=== PATIENT | female | born 1945 | race Hispanic/Latino ===

== ENCOUNTER 2017-12-10 10:05 | Emergency (ER) | payer OTHER ==
[2017-12-10] MEDS ORDERED: MECLIZINE HCL 12.5 MG TAB ONE (11:04)
--- NOTE | 2017-12-10 11:15 | RAD REPORT ---
EXAM DESCRIPTION: CT - Head Brain Wo Cont - 12/10/2017 11:04 am CLINICAL HISTORY: DIZZINESS Drowsiness COMPARISON: HEAD BRAIN W O CONTRAST dated 04/08/2012 TECHNIQUE: All CT scans are performed using dose optimization technique as appropriate and may inclu de automated exposure control or mA/KV adjustment according to patient size. FINDINGS: No intracranial hemorrhage, hydrocephalus or extra-axial fluid collection.No areas of brai n edema or evidence of midline shift. The paranasal sinuses and mastoids are clear. The calvarium is intact. IMPRESSION: No acute intracranial abnormality.
--- NOTE | 2017-12-10 11:20 | RAD REPORT ---
EXAM DESCRIPTION: RAD - Chest Single View - 12/10/2017 11:15 am CLINICAL HISTORY: dizziness Chest pain. COMPARISON: Chest Pa And Lat (2 Views) dated 09/17/2016; Abdomen 1 View (KUB) dated 10/08/2015; CHEST S JOSÉ MIGUEL VIEW dated 05/11/2015; CHEST SINGLE VIEW dated 05/10/2015 FINDINGS: Portable technique limits examination quality. The lungs are grossly clear. The heart is normal in size. No displaced fractures. IMPRESSION: No acute intrathoracic process suspected.
[2017-12-10 11:41] LABS: Absolute Lymphocytes (CBC) 1.6 K/uL (0.7-4.9); Absolute Monocytes 0.5 K/uL (0.1-1.3); Absolute Neutrophil 2.8 K/uL (1.8-8.0); Basophils % 1.3 % (0-1.3); Eosinophils % 3.7 % (0-4.4); Hematocrit 39.8 % (36.0-45.0); MCH 25.2 pg (27.0-35.0); MCV 79.7 fL (80-100); MPV 8.9 fL (7.6-11.3); Monocytes % 8.9 % (3.3-12.3); RBC Red Blood Cell Count 4.99 M/uL (3.86-4.86)
[2017-12-10 11:43] LABS: Urine Blood TRACE (NEG); Urine Glucose NEGATIVE (NEG); Urine Protein 1+ (NEG)
[2017-12-10 11:43] LABS: Protime INR 1.08
[2017-12-10 11:55] LABS: ALT/SGPT 26 U/L (12-78); AST/SGOT 28 U/L (15-37); Albumin 4.1 g/dL (3.4-5.0); Alkaline Phosphatase 60 U/L (45-117); BUN Blood Urea Nitrogen 18 mg/dL (7-18); Bicarbonate 26 mmol/L (21-32); Bilirubin Direct < 0.1 mg/dL (0-0.2); Bilirubin Total 0.2 mg/dL (0.2-1.0); Glucose Level 136 mg/dL (74-106); Magnesium 1.5 mg/dL (1.8-2.4); NT PRO-BNP 111 pg/mL (<125); Potassium 3.8 mmol/L (3.5-5.1); Protein, Total 8.4 g/dL (6.4-8.2); Sodium Level 138 mmol/L (136-145); Troponin (Emerg Dept Use Only) < 0.02 ng/mL (0.0-0.045)
[2017-12-10] MEDS ORDERED: MAGNESIUM SULFATE 1 gm IVPB 1 GM/100 ML BAG IV ONE (12:37)
--- NOTE | 2017-12-10 12:37 | RAD REPORT ---
EXAM DESCRIPTION: MRI - Brain Wo Cont - 12/10/2017 12:25 pm CLINICAL HISTORY: Dizziness COMPARISON: 12/10/[address] TECHNIQUE: Axial, sagittal, and coronal magnetic resonance images of the brain were obtained. Contra st was not requested FINDINGS: No abnormal signal is present within the brain. Diffusion-weighted/ADC mapping does not reveal evidence of acute infarction. The ventricles are normal caliber. An extra-axial fluid collection is not present The sinuses and mastoids are clear. IMPRESSION: Unremarkable unenhanced brain MRI
[2017-12-10 12:49] LABS: Urine Bacteria <20 /HPF (<20); Urine RBC <5 /HPF (NONE SEEN)
[2017-12-10 12:50] LABS: Urine Culture Reflex Order REFLEXED; Urine Mucus LIGHT /HPF (NONE SEEN)
--- NOTE | 2017-12-10 13:34 | EDPHYS ---
Physician Documentation [facility] Name: Rena Reddy Age: 72 yrs Sex: Female : 1945 Arrival Date: 12/10/2017 Time: 10:07 Bed 20 Private MD: José Luis Harrington ED Physician Naif Marroquin HPI: 12/10 10:55 This 72 yrs old Female presents to ER via Ambulatory with complaints of jmm Vertigo, High Blood Pressure. 10:55 The patient presents with dizziness. Onset: The symptoms/episode began/occurred jmm acutely, 1 week(s) ago. Associated signs and symptoms: Pertinent positives: headache, nausea, Pertinent negatives: abdominal pain, chest pain. This is a 72 year old female with a history of HTN, DM, HLP that presents to the ED with dizziness beginning approx 1 week ago. Patient is currently being treated for a UTI. Patient denies fever, chest pain, but admits to generalized headache. Patient states having a similar episode when diagnosed with vertigo 5 years prior. . Historical: - Allergies: 10:32 NKDA; aj1 - PMHx: 10:32 Diabetes - NIDDM; Hyperlipidemia; Hypertension; Kidney stones; Myocardial infarction; aj1 - Immunization history:: Flu vaccine is up to date. - Social history:: Smoking status: Patient/guardian denies using tobacco. - Ebola Screening: : Patient denies travel to an Ebola-affected area in the 21 days before illness onset. ROS: 10:55 Constitutional: Negative for fever, chills, and weight loss, Cardiovascular: Negative jm for chest pain, palpitations, and edema, Respiratory: Negative for shortness of breath, cough, wheezing, and pleuritic chest pain. 10:55 MS/Extremity: Negative for injury and deformity, Skin: Negative for injury, rash, and discoloration. 10:55 Abdomen/GI: Positive for nausea. 10:55 Neuro: Positive for dizziness. 10:55 All other systems are negative. Exam: 10:55 Head/Face: atraumatic. Chest/axilla: Normal chest wall appearance and motion. jmm Cardiovascular: Regular rate and rhythm. No edema appreciated Respiratory: Normal respirations, no respiratory distress appreciated 10:55 Constitutional: The patient appears in no acute distress, alert, awake. 10:55 Eyes: Extraocular movements: intact throughout, Conjunctiva: normal. 10:55 Cardiovascular: Rate: normal, Rhythm: regular, Pulses: no pulse deficits are appreciated. 10:55 Abdomen/GI: Inspection: abdomen appears normal, Bowel sounds: normal, Palpation: abdomen is soft and non-tender, in all quadrants. 10:55 Musculoskeletal/extremity: ROM: intact in all extremities. 10:55 Skin: Appearance: Color: normal in color. 10:55 Neuro: Orientation: is normal, Mentation: is normal, Memory: is normal, Cerebellar function: heel to culver testing is normal, Gait: is steady, horizontal nystagmus on gaze to the right. 10:55 Psych: Behavior/mood is pleasant, cooperative. Vital Signs: 10:32 BP 183 / 76; Pulse 76; Resp 18; Temp 97.9; Pulse Ox 99% on R/A; Weight 58.97 kg (R); aj1 Height 5 ft. 2 in. (157.48 cm) (R); Pain 0/10; 11:45 BP 114 / 54; Pulse 66; Resp 18; Pulse Ox 100% on R/A; em 12:36 BP 164 / 72; Pulse 64; Resp 18; Pulse Ox 100% on R/A; Pain 0/10; em 13:42 BP 126 / 59; Pulse 62; Resp 18; Pulse Ox 96% on R/A; Pain 0/10; em 10:32 Body Mass Index 23.78 (58.97 kg, 157.48 cm) [facility] MDM: 10:55 Patient medically screened. [facility] 13:32 Data reviewed: vital signs, nurses notes. Counseling: I had a detailed discussion with [facility] the patient and/or guardian regarding: the historical points, exam findings, and any diagnostic results supporting the discharge/admit diagnosis, radiology results, the need for outpatient follow up, to return to the emergency department if symptoms worsen or persist or if there are any questions or concerns that arise at home. 13:32 Data reviewed: lab test result(s), EKG, radiologic studies. [facility] 13:32 ED course: Patient has no focal neuro deficits in the ED. MRI negative. Symptoms appear [facility] more likely peripheral. Normal cerebellar exam. patient encouraged to follow up with ENT for further evaluation. patient understood and agrees with the plan of care. 12/10 10:44 Order name: Basic Metabolic Panel; Complete Time: 12:08 [facility] 12/10 10:44 Order name: CBC with Diff; Complete Time: 11:48 [facility] 12/10 10:44 Order name: LFT's; Complete Time: 12:08 [facility] 12/10 10:44 Order name: Magnesium; Complete Time: 12:08 [facility] 12/10 10:44 Order name: NT PRO-BNP; Complete Time: 12:08 [facility] 12/10 10:44 Order name: PT-INR; Complete Time: 11:48 [facility] 12/10 10:44 Order name: Troponin (emerg Dept Use Only); Complete Time: 12:08 [facility] 12/10 10:44 Order name: XRAY Chest (1 view); Complete Time: 11:21 [facility] 12/10 10:45 Order name: CT Head Brain wo Cont; Complete Time: 11:21 [facility] 12/10 11:22 Order name: MRI - Brain Wo Cont; Complete Time: 12:38 [facility] 12/10 11:31 Order name: Urine Microscopic Only; Complete Time: 12:50 em 12/10 11:33 Order name: Urine Dipstick--Ancillary (enter results); Complete Time: 11:48 12/10 12:52 Order name: Urine Culture [facility] 12/10 10:44 Order name: EKG; Complete Time: 10:44 [facility] 12/10 10:44 Order name: Cardiac monitoring; Complete Time: 10:47 [facility] 12/10 10:44 Order name: EKG - Nurse/Tech; Complete Time: 11:30 [facility] 12/10 10:44 Order name: IV Saline Lock; Complete Time: 10:47 [facility] 12/10 10:44 Order name: Labs collected and sent; Complete Time: 10:47 [facility] 12/10 10:44 Order name: O2 Per Protocol; Complete Time: 10:47 [facility] 12/10 10:44 Order name: O2 Sat Monitoring; Complete Time: 10:46 [facility] Administered Medications: 11:19 Drug: Meclizine 25 mg Route: PO; em 13:58 Follow up: Response: No adverse reaction; Marked relief of symptoms em 12:36 Drug: Magnesium Sulfate 1 grams Route: IVPB; Infused Over: 1 hrs; Site: right em antecubital; 13:58 Follow up: Response: No adverse reaction; IV Status: Completed infusion; IV Intake: em 100ml Disposition: 16:32 Co-signature as Attending Physician, Naif Marroquin MD. rn Disposition: 12/10/17 13:33 Discharged to Home. Impression: Dizziness, Urinary tract infection, site not specified. - Condition is Stable. - Discharge Instructions: Urinary Tract Infection, Adult, Vertigo. - Prescriptions for Augmentin 875- 125 mg Oral Tablet - take 1 tablet by ORAL route every 12 hours for 10 days; 20 tablet. Meclizine 25 mg Oral Tablet - take 1 tablet by ORAL route every 8 hours As needed; 30 tablet. - Medication Reconciliation Form, Thank You Letter, Antibiotic Education, Prescription Opioid Use form. - Follow up: José Luis Harrington MD; When: 2 - 3 days; Reason: Recheck today's complaints, Continuance of care, Re-evaluation by your physician. Follow up: Yary Dowell MD; When: 2 - 3 days; Reason: Recheck today's complaints, Continuance of care, Re-evaluation by your physician. - Notes: Please follow up with ENT for further evaluation of your dizziness. Please return to the ED if you develop worsening symptoms or weakness. Signatures: Dispatcher [employer] EDAntonietta David RN RN aj1 Harshad Strickland PA PA [facility] Bird Eastman, FELL CUTTER FELL CUTTER Naif Rahman MD MD furniture inspector: (The following items were deleted from the chart) 14:00 13:33 12/10/2017 13:33 Discharged to Home. Impression: Dizziness; Urinary tract em infection, site not specified. Condition is Stable. Forms are Medication Reconciliation Form, Thank You Letter, Antibiotic Education, Prescription Opioid Use. Follow up: José Luis Harrington; When: 2 - 3 days; Reason: Recheck today's complaints, Continuance of care, Re-evaluation by your physician. Follow up: Yary Dowell; When: 2 - 3 days; Reason: Recheck today's complaints, Continuance of care, Re-evaluation by your physician. alonzo
--- NOTE | 2017-12-10 13:34 | ER ---
Nurse's Notes [facility] Name: Rena Reddy Age: 72 yrs Sex: Female : 1945 Arrival Date: 12/10/2017 Time: 10:07 Bed 20 Private MD: José Luis Harrington Diagnosis: Dizziness;Urinary tract infection, site not specified Presentation: 12/10 10:29 Presenting complaint: Patient states: "I've been having bladder infections, high blood aj1 pressure, and vertigo." Reports this has been going on for the past week. Reports fever. Transition of care: patient was not received from another setting of care. Onset of symptoms was December 04, 2017. Risk Assessment: Do you want to hurt yourself or someone else? Patient reports no desire to harm self or others. Initial Sepsis Screen: Does the patient meet any 2 criteria? No. Patient's initial sepsis screen is negative. Does the patient have a suspected source of infection? Yes: Dysuria/Frequency/Urgency/UTI. Care prior to arrival: None. 10:29 Method Of Arrival: Ambulatory aj1 10:29 Acuity: JULES 3 aj1 Triage Assessment: 10:32 General: Appears in no apparent distress. uncomfortable, Behavior is calm, cooperative, aj1 appropriate for age. Pain: Denies pain. Neuro: Level of Consciousness is awake, alert, obeys commands, Oriented to person, place, time, situation, Moves all extremities. Full function Speech is normal, Facial symmetry appears normal, Reports vertigo. Cardiovascular: Patient's skin is warm and dry. Respiratory: Airway is patent Respiratory effort is even, unlabored, Respiratory pattern is regular, symmetrical. : Reports burning with urination, urinary frequency. Historical: - Allergies: 10:32 NKDA; aj1 - PMHx: 10:32 Diabetes - NIDDM; Hyperlipidemia; Hypertension; Kidney stones; Myocardial infarction; aj1 - Immunization history:: Flu vaccine is up to date. - Social history:: Smoking status: Patient/guardian denies using tobacco. - Ebola Screening: : Patient denies travel to an Ebola-affected area in the 21 days before illness onset. Screenin:45 Abuse screen: Denies threats or abuse. Nutritional screening: No deficits noted. em Tuberculosis screening: No symptoms or risk factors identified. Fall Risk None identified. Assessment: 11:00 General: Appears in no apparent distress. comfortable, Behavior is calm, cooperative, em Denies fever. Pain: Denies pain. Neuro: Level of Consciousness is awake, alert, obeys commands, Oriented to person, place, time, situation, Paper Inspector are equal bilaterally Moves all extremities. Gait is unsteady, Speech is normal, Facial symmetry appears normal, Pupils are PERRLA, Intact Reports dizziness, headache Denies weakness numbness. Cardiovascular: Denies chest pain, Capillary refill < 3 seconds Patient's skin is warm and dry. Respiratory: Airway is patent Respiratory effort is even, unlabored, Respiratory pattern is regular, symmetrical. GI: Abdomen is round. : Urine is clear. EENT: No signs and/or symptoms were reported regarding the EENT system. Derm: Skin is intact, Skin is pink, warm \\T\\ dry. Musculoskeletal: Capillary refill < 3 seconds, Range of motion: intact in all extremities. 11:15 Reassessment: I agree with previous assessment. hb 11:40 Reassessment: Patient appears in no apparent distress at this time. Patient and/or em family updated on plan of care and expected duration. Pain level reassessed. Patient is alert, oriented x 3, equal unlabored respirations, skin warm/dry/pink. wheeled to MRI via wheelchair. 12:30 Reassessment: Patient appears in no apparent distress at this time. Patient and/or em family updated on plan of care and expected duration. Pain level reassessed. Patient is alert, oriented x 3, equal unlabored respirations, skin warm/dry/pink. pt reports vertigo has not improved, provider notified, no new orders received, will continue to monitor. 13:55 Reassessment: Patient appears in no apparent distress at this time. Patient and/or em family updated on plan of care and expected duration. Pain level reassessed. Patient is alert, oriented x 3, equal unlabored respirations, skin warm/dry/pink. Patient denies pain at this time. Patient states feeling better. Vital Signs: 10:32 BP 183 / 76; Pulse 76; Resp 18; Temp 97.9; Pulse Ox 99% on R/A; Weight 58.97 kg (R); aj1 Height 5 ft. 2 in. (157.48 cm) (R); Pain 0/10; 11:45 BP 114 / 54; Pulse 66; Resp 18; Pulse Ox 100% on R/A; em 12:36 BP 164 / 72; Pulse 64; Resp 18; Pulse Ox 100% on R/A; Pain 0/10; em 13:42 BP 126 / 59; Pulse 62; Resp 18; Pulse Ox 96% on R/A; Pain 0/10; em 10:32 Body Mass Index 23.78 (58.97 kg, 157.48 cm) aj1 ED Course: 10:07 Patient arrived in ED. as 10:07 José Luis Harrington MD is Private Physician. as 10:32 Triage completed. aj1 10:32 Arm band placed on Patient placed in an exam room. aj1 10:42 Harshad Strickland PA is PHCP. jmm 10:42 Naif Marroquin MD is Attending Physician. jmm 10:46 Bird Eastman LVN is Primary Nurse. em 11:02 CT completed. Patient tolerated procedure well. Patient moved to CT via wheelchair. jg6 Patient moved back from CT. 11:04 CT Head Brain wo Cont In Process Unspecified. EDMS 11:05 EKG done, by a and p technician. reviewed by Harshad SINGLETON. sm3 11:13 X-ray completed. Portable x-ray completed in exam room. Patient tolerated procedure ls3 well. 11:14 XRAY Chest (1 view) In Process Unspecified. EDMS 11:25 Initial lab(s) drawn, by wi, sent to lab. Urine collected: clean catch specimen, clear. em Inserted saline lock: 20 gauge in right antecubital area, using aseptic technique. Blood collected. 11:45 Patient has correct armband on for positive identification. Bed in low position. Call em light in reach. Side rails up X2. Adult w/ patient. 12:02 Patient moved to MRI via wheelchair. em2 12:25 MRI - Brain Wo Cont In Process Unspecified. EDMS 12:26 MRI completed. Patient tolerated well. Patient moved back from MRI. em2 13:32 José Luis Harrington MD is Referral Physician. jmm 13:32 Yary Dowell MD is Referral Physician. jmm 13:51 No provider procedures requiring assistance completed. IV discontinued, intact, em bleeding controlled, No redness/swelling at site. Pressure dressing applied. Administered Medications: 11:19 Drug: Meclizine 25 mg Route: PO; em 13:58 Follow up: Response: No adverse reaction; Marked relief of symptoms em 12:36 Drug: Magnesium Sulfate 1 grams Route: IVPB; Infused Over: 1 hrs; Site: right em antecubital; 13:58 Follow up: Response: No adverse reaction; IV Status: Completed infusion; IV Intake: em 100ml Intake: 13:58 IV: 100ml; Total: 100ml. em Outcome: 13:33 Discharge ordered by . alonzo 13:51 Discharged to home via wheelchair. em 13:51 Condition: good 13:51 Discharge instructions given to patient, family, Instructed on discharge instructions, follow up and referral plans. medication usage, Demonstrated understanding of instructions, follow-up care, medications, Prescriptions given X 2. 14:00 Patient left the ED. em Signatures: Dispatcher [employer] Antonietta Urbina RN RN aj1 Harshad Strickland PA PA Bird Bruno, WORKSHOP MANAGER WORKSHOP MANAGER em Kerri Jacobo Enrique em2 Jesica Thomas RN RN hb Montes, Shakira 3 Elsa Gonzalez6 Lupe Suero 3
[2017-12-10 14:06] VITALS: TEMP 97.9
[2017-12-10 14:10] VITALS: BP 126/59; O2SAT 96
--- NOTE | 2017-12-11 07:52 | EKG ---
Test Date: 2017-12-10 Test Time: 10:56:54 Printed Forms Proofreader: ADELA MEASUREMENT RESULTS: Intervals: Rate: 76 DE: 154 QRSD: 70 QT: 388 QTc: 436 [place]: P: 44 DE: 154 QRS: 40 T: 59 INTERPRETIVE STATEMENTS: Normal sinus rhythm Normal ECG Compared to ECG 11/30/2016 08:17:51 ST (T wave) deviation no longer present Electronically Signed On 12-11-17 07:49:00 CDT by Bashir Mera
== END 2017-12-10 14:00 | disposition home or self-care (01) ==
LOC: ER 10:05
DX: N39.0 Urinary tract infection, site not specified (principal); I10 Essential (primary) hypertension; I25.2 Old myocardial infarction
CPT/HCPCS: 36415; 70450; 70551; 71045; 80048; 80076; 83735; 83880; 84484; 85025; 85610; 87086; 87088; 93005; 96365; 99284; J3475; 81003; 81015

== ENCOUNTER 2019-10-31 08:03 | Emergency (ER) | payer OTHER ==
--- OUTSIDE RECORDS SUMMARY | 2019-10-31 08:37 | XMS REPORT | Continuity of Care Document ---
:1945 Author Organization [facility] t Address [address] [place] [place] [address] Care Team Providers Name Role Phone Guillermo ROUSE Attending Clinician Unavailable Renata LUGO, S Attending Clinician Lory LUGO Attending Clinician Doctor Unassigned, Name Attending Clinician Unavailable Lab, Fam Pob I Attending Clinician Unavailable Lory LUGO Admitting Clinician Problems Condition Condition Condition Status Onset Resolution Last Treating Co mments Source Name Details Category Date Date Treatment Clinician Date Bladder Bladder Problem Active [facility] Kidney Kidney Diagnosis Active [facility] UTI (lower UTI (lower Diagnosis Active [facility] urinary [facility] tract [facility] infection) infection) [facility] Allergies, Adverse Reactions, Alerts This patient has no known allergies or adverse reactions. Medications Ordered Filled Start Stop Current Ordering Indication Dosage Frequency Signature Comments Components Source Medication Medication Date Date Medication? Clinician (SIG) Name Name Nitrofurant Nitrofurant 2019- No Michelle [address] [facility] oin Monohyd oin Monohyd 3-04 06-02 Ricky at bedtime [facility]ro Macro 00:00: 00:00 with food [facility] 00 :00 [facility] Cefdinir Cefdinir 2020-0 2020- No Michelle as [facility] 3-04 03-09 [place] directed [facility]: [facility]:00 [facility] :[facility] Aspirin Aspirin Yes Michelle [address] [facility] [place] [facility] Rosuvastati Rosuvastati Yes Michelle [address] [facility] n Calcium n Calcium Ricky L [facility] Metformin Metformin Yes Michelle [address] [facility] HCl HCl [place] with a [facility] - meal [facility] Magnesium Magnesium Yes Michelle [address] [facility] [place] with a [facility] - meal [facility] Iron Iron Yes Michelle [address] [facility] Ricky [facility] Amlodipine Amlodipine Yes Michelle [address] [facility] Besylate Besylate Ricky [place] - [facility] Lisinopril Lisinopril Yes Michelle [address] [facility] Ricky [facility] Metoprolol Metoprolol Yes Michelle [address] [facility] Tartrate Tartrate [place] with food [facility] Garlic Garlic Yes Michelle as [facility] Ricky directed [facility] Procedures This patient has no known procedures. Encounters Start End Encounter Admission Attending Care Care Encounter Source Date/Time Date/Time Type Type Clinicians Facility Department ID 2019-10-16 2019-10-16 Transition Elena Li [id number] 00:00:00 00:00:00 of Care Kellen Rose [id number] [place] [id number] 2019-10-11 2019-10-14 [facility] Frank Yanez [facility] [id number]. [id number] 20:32:00 13:28:00 Encounter Erika Henley [id number] [place] [id number] [place] [id number] 2019-10-11 2019-10-11 Orders Doctor GUTIERREZ [id number] 00:00:00 00:00:00 Only Unassigned, MELANI [id number] [facility] [id number] 2019-09-19 2019-09-19 Laboratory Lab, Adc [facility] [id number] 09:57:04 10:17:04 Only Fam Pob [facility] [id number] [place] [id number] Professio [id number] nal [address] 2019-09-19 2019-09-19 Letter Doctor BRENDA [id number] 00:00:00 00:00:00 (Out) Unassigned, MELANI [id number] [facility] [id number] 2019-05-10 2019-05-10 Outpatient Coleen Camejo [id number] [facility] 08:30:00 08:30:00 t Specialty/U [facility] - [facility] 2019-04-28 2019-04-28 Outpatient Coleen Cameoj [id number] [facility] 15:26:00 15:26:00 t Specialty/U [facility] - Specialty rology [facility]Urology Clinic l Clinic Outpat[facility] ent Clinics 2019-04-24 2019-04-24 Outpatient Coleen Camejo [id number] [facility] 09:00:00 09:00:00 t Specialty/U [facility] - Specialty rology [facility]rology [facility] l Clinic [facility] Results This patient has no known results.
--- OUTSIDE RECORDS SUMMARY | 2019-10-31 08:38 | XMS REPORT | Summary of Care ---
:[address] [facility] - Health Address [address] [place] [address] Care Team Providers Name Role Phone Evangelista Harrington Primary Care Provider Encounter Details Date Type Department Care Team Description 10/11/[address] [facility] Doctor Unassigned, [address] [facility] [place] [address] [address] [place] [address] Allergies No Known Allergiesdocumented as of this encounter (statuses as of 10/11/2019) Medications Medication Sig Dispensed Refills Start Date End Date Status LISINOPRIL 10 MG ORAL None Entered 0 Active TAB METFORMIN HCL Take 500 mg by 0 A ctive (METFORMIN ORAL) mouth 2 (two) times daily. PANTOPRAZOLE SODIUM Take by mouth. 0 Active (PROTONIX ORAL) CLOPIDOGREL BISULFATE Take by mouth. 0 Active (PLAVIX ORAL) INSULIN LISPRO (HUMALOG inject under the 0 Active SC) skin. EMPAGLIFLOZIN Take by mouth. 0 Active (JARDIANCE ORAL) methocarbamol (ROBAXIN) Take 1 tablet by 20 tablet 0 8 Active 500 mg tablet mouth 4 (four) times daily. acetaminophen-codeine Take 1 tablet by 12 tablet 0 07/10/2017 Active 300-30 mg tablet mouth every 4 (four) hours as needed for Pain (scale 4-6). documented as of this encounter (statuses as of 10/11/2019) Active Problems Problem Noted Date Hyperlipidemia 06/06/2012 Type II or unspecified type diabetes mellitus with uns pecified 06/06/2012 complication, not stated as uncontrolled Acid reflux 06/06/2012 Essential hypertension, benign 06/06/2012 documented as of this encounter (statuses as of 10/11/2019) Resolved Problems Problem Noted Date Resolved Date Urinary tract infection, site not specified 11/05/2007 06/06/2012 Unspecified disorder of urethra and urinary tract 11/02/2007 06/06/2012 Hypercalcemia 06/21/2007 11/02/2007 Acute pyelonephritis without lesion of renal medullary 04/1506/06/2012 necrosis Hyperparathyroidism 04/14/2007 11/02/2007 Overview: ICD10 Diagnosis 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 Calculus of kidney 08/16/2006 06/06/2012 documented as of this encounter (statuses as of 10/11/2019) Immunizations Name Administration Dates Next Due Pneumococcal Polysaccharide, PPSV23 (PNEUMOVAX) 11/04/2007 Td 03/08/2008 documented as of this encounter Social History Tobacco Use Types Packs/Day Years Used Date Never Smoker Smokeless Tobacco: Never Used Alcohol Use Drinks/Week oz/Week Comments Yes 1 Standard drinks or equivalent 0.8 Sex Assigned at Date Recorded Not on file COVID-19 Exposure Response Date Recorded In the last month, have you been in contact with Yes 09/19/2019 9:32 AM CDT someone who was confirmed or suspected to have Coronavirus / COVID-19? documented as of this encounter Last Filed Vital Signs Not on filedocumented in this encounter Plan of Treatment Health Maintenance Due Date Last Done Comments HEPATITIS C (HCV) SCREEN 1945 EYE EXAM 09/06/1955 URINE MICROALBUMIN 09/06/1957 Depression Screening 1959 FOOT EXAM 09/06/1965 DTaP,Tdap,and Td Vaccines (1 - 09/06/1966 03/08/2008 Tdap) COLON CANCER SCREENING ANNUAL 09/06/1997 FIT/FOBT COLON CANCER SCREENING FIT DNA 09/06/1997 EVERY 3 YEARS COLON CANCER SCREENING 09/06/1997 SIGMOIDOSCOPY EVERY 5 YEARS COLONOSCOPY 09/06/1997 Colorectal Cancer Screening 09/06/1997 Zoster Recombinant Vaccine 09/06/1997 (SHINGRIX) (1 of 2) LDL-C 02/23/2006 02/23/2005, 10/04/2004 HgA1C 03/28/2008 09/26/2007, 10/03/2004 Medicare Wellness Visit 09/06/2012 Osteoporosis Screening 09/06/2012 PNEUMOCOCCAL VACCINES 65+ (1 of 1 11/03/2012 11/04/2007 - PPSV23) CREATININE (SERUM) 06/12/2013 06/12/2012, 11/05/2007, 11/02/2007, Additional history exists INFLUENZA VACCINE (#1) 2019 Breast Cancer Screening 01/19/2020 01/18/2019, 06/20/2012, (MAMMOGRAM) 04/21/2011, Additional history exists documented as of this encounter Procedures Procedure Name Priority Date/Time Associated Diagnosis Comme nts CONSENT/REFUSAL FOR Routine 10/11/2019 8:19 PM CDT DIAGNOSIS AND TREATMENT documented in this encounter Results Not on filedocumented in this encounter Insurance Payer Benefit Plan / Subscriber ID Effective Dates Phone Addre ss Type Group [employer] 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
--- OUTSIDE RECORDS SUMMARY | 2019-10-31 08:38 | XMS REPORT | Summary of Care ---
:1945 Author Organization [facility] Address [address] [place] [address] Care Team Providers Name Role Phone Len Evangelista Primary Care Provider Reason for Visit Reason Comments Exposure Encounter Details Date Type Department Care Team Description 09/19/2019 Laboratory Only [facility] Health Family Roge Ferrari FNP [address] [place] [phone] Suspected Covid-19 Medicine - [facility], Adc Fam Pob I Virus Infection [address] [place] [address] (Primary D x) [place] [address] Allergies No Known Allergiesdocumented as of this encounter (statuses as of 09/19/2019) Medications Medication Sig Dispensed Refills Start Date [...] Take 1 tablet by 20 tablet 0 05/05/201 8 Active 500 mg tablet mouth 4 (four) times daily. acetaminophen-codeine Take 1 tablet by 12 tablet 0 07/10/2017 Active 300-30 mg tablet mouth every 4 (four) hours as needed for Pain (scale 4-6). documented as of this encounter (statuses as of 09/19/2019) Active Problems Problem Noted Date Hyperlipidemia 06/06/2012 Type II or unspecified type diabetes mellitus with uns pecified 06/06/2012 complication, not stated as uncontrolled Acid reflux 06/06/2012 Essential hypertension, benign 06/06/2012 documented as of this encounter (statuses as of 09/19/2019) Resolved Problems Problem Noted Date Resolved Date Urinary tract infection, site not specified 11/05/2007 06/06/2012 Unspecified disorder of urethra and urinary tract 11/02/2007 06/06/2012 Hypercalcemia 06/21/2007 11/02/2007 Acute pyelonephritis without lesion of renal medullary 04/1506/06/2012 necrosis Hyperparathyroidism 04/14/2007 11/02/2007 Overview: ICD10 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 Calculus of kidney 08/16/2006 06/06/2012 documented as of this encounter (statuses as of 09/19/2019) Immunizations Name Administration Dates Next Due Pneumococcal Polysaccharide, PPSV23 (PNEUMOVAX) 11/04/2007 Td 03/08/2008 documented as of this encounter Social History Tobacco Use Types Packs/Day Years Used Date Never Smoker Smokeless Tobacco: Never Used Alcohol Use Drinks/Week oz/Week Comments Yes 1 Standard drinks or equivalent 0.8 Sex Assigned at Date Recorded Not on file Job Start Date Occupation Industry Not on file Not on file Not on file Travel History Travel Start Travel End No recent travel history available. COVID-19 Exposure Response Date Recorded In the last month, have you been in contact with Yes 09/19/2019 9:32 AM CDT someone who was confirmed or suspected to have Coronavirus / COVID-19? documented as of this encounter Last Filed Vital Signs Not on filedocumented in this encounter Plan of Treatment Name Type Priority Associated Diagnoses Order S chedule COVID-19 (PCR MOLECULAR LAB Routine Suspected Covid-1 9 Virus Expected: 09/19/2019, TESTING) Infection Expires: 2020 Health Maintenance Due Date Last Done Comments HEPATITIS C (HCV) SCREEN 1945 EYE EXAM 09/06/1955 URINE MICROALBUMIN 09/06/1957 DTaP,Tdap,and Td Vaccines (1 - 09/06/1958 03/08/2008 Tdap) Depression Screening 1959 FOOT EXAM 09/06/1965 COLONOSCOPY 09/06/1997 Zoster Recombinant Vaccine 09/06/1997 (SHINGRIX) (1 of 2) LDL-C 02/23/2006 02/23/2005, 10/04/2004 HgA1C 03/28/2008 09/26/2007, 10/03/2004 Medicare Wellness Visit 09/06/2012 Osteoporosis Screening 09/06/2012 PNEUMOCOCCAL VACCINES 65+ (1 of 2 09/06/2012 11/04/2007 - PCV13) CREATININE (SERUM) 06/12/2013 06/12/2012, 11/05/2007, 11/02/2007, Additional history exists INFLUENZA VACCINE (#1) 2019 Breast Cancer Screening 01/19/2020 01/18/2019, 06/20/2012, (MAMMOGRAM) 04/21/2011, Additional history exists documented as of this encounter Results Not on filedocumented in this encounter Visit Diagnoses Diagnosis Suspected Covid-19 Virus Infection - [facility] documented in this encounter Additional Health Concerns Infection Onset Date Last Indicated Resolved Time COVID-19 Rule Out 09/19/2019 09/19/2019 documented as of this encounter Insurance Payer Benefit Plan / Subscriber ID Effective Dates Phone Addre ss Type Group [employer] [id number] 2017-Present Medicare Adv spring HMO [facility] [address]) [place], [place] [phone] (Work) documented as of this encounter Advance Directives Type Date Recorded 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
--- OUTSIDE RECORDS SUMMARY | 2019-10-31 08:38 | XMS REPORT | Summary of Care ---
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 Calculus of kidney 08/16/2006 06/06/2012 documented [...] filedocumented in this encounter Plan of Treatment Date Type Specialty Care Team Description 09/19/2019 Laboratory Only Family Medicine Nayana Ferrari, MARYBETH [address] [address] Suspected Covid-19 Lab, Adc Fam Pob I Virus Infection (Primary Dx) Health Maintenance Due Date Last Done Comments [...] Effective Dates Phone Addre ss Type Group [employer] [id number] 2017-Present Medicare Adv spring HMO documented as of this encounter Advance Directives Type Date Recorded 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
--- OUTSIDE RECORDS SUMMARY | 2019-10-31 08:40 | XMS REPORT | Summary of Care ---
:1945 Author Organization [facility] - Health Address [address] [place] [address] Care Team Providers Name Role Phone Evangelista Harrington Primary Care Provider Reason for Visit Reason Comments Transition Of Care Encounter Details Date Type Department Care Team Description 10/16/2019 Transition of Care [facility] Kellen Li RN Transition Of Care [facility] [address] [place] [phone] Allergies No Known Allergiesdocumented as of this encounter (statuses as of 10/16/2019) Medications Medication Sig Dispensed Refills Start Date [...] mg tablet mouth 4 (four) times daily. ibuprofen 400 mg Take 1 tablet by 30 tablet 0 10/14/2019 Active tabletIndications: mouth every 6 Calculus of gallbladder (six) hours as with acute needed for Pain cholecystitis without (scale 4-6). obstruction traMADol 50 mg Take 1 tablet by 16 tablet 0 10/14/2019 Active tabletIndications: mouth every 6 acute pain, palliative (six) hours as care needed for Pain (scale 7-10). Indications: acute pain, chronic pain documented as of this encounter (statuses as of 10/16/2019) Active Problems Problem Noted Date Acute pancreatitis 10/12/2019 Coronary artery disease involving [place] coronary george ry of [place] heart 10/12/2019 without angina pectoris Type 2 diabetes mellitus without complication, without long-term current 10/12/2019 use of insulin Hyperlipidemia 06/06/2012 Type II or unspecified type diabetes mellitus with uns pecified 06/06/2012 complication, not stated as uncontrolled Acid reflux 06/06/2012 Essential hypertension, benign 06/06/2012 documented as of this encounter (statuses as of 10/16/2019) Resolved Problems Problem Noted Date Resolved Date Urinary tract infection, site not specified 11/05/2007 06/06/2012 Unspecified disorder of urethra and urinary tract 11/02/2007 06/06/2012 Hypercalcemia 06/21/2007 11/02/2007 Acute pyelonephritis without lesion of renal medullary 04/1506/06/2012 necrosis Hyperparathyroidism 04/14/2007 11/02/2007 Overview: ICD10 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 documented as of this encounter Last Filed Vital Signs Not on filedocumented in this encounter Miscellaneous Notes Telephone Encounter - Kellen Li RN - 10/16/2019 3:45 PM CDT TRANSITIONAL CARE MANAGEMENT ASSESSMENT 10/16/2019 Rena Reddy [id number] Rena Reddy is a 74 year old or other female was admitted on 10/11/[address] [facility] ICU. She was discharged on 10/14/19 with discharge dispositionof HR- Routine Discharge. Admitting Physician: Erika Henley Discharge Diagnosis: Acute gallstone pancreatitis I S/p lap maura by Dr. Patten 10/12 Linked Episodes Type: Episode: Status: Noted: Resolved: Last update: Updated by: TRANSITION OF CARE TCM Active 10/16/2019 10/16/2019 11:47 AM Kellen Li RN Comments: TCM [id number]-[id number] outreach documentation: Discharge Assessment Chart Assessed: 10/16/19 Future Appointments: Future Appointments Provider Department Dept Phone 10/31/2019 3:30 PM Natalia Patten MD [facility] [place] [phone] Transition CM attempted to contact patient x2. CM left a discreet voicemail explaining purpose of call and call back information. CHARO Maloney, RN-BC, CCRN Transition Hair And Makeup Designer Nurse Clinician IV Transitions of Care Management Team Office: [phone] [email or web address] elephone Encounter - Kellen Li RN - 10/16/2019 11:47 AM CDTCM LM to return call. Will attempt again at a later time. CHARO Maloney, RN-BC, CCRN Transition Hair And Makeup Designer Nurse Clinician IV Care Management Team Office: [phone] [email or web address] documented in this encounter Plan of Treatment Date Type Specialty Care Team Description 10/31/2019 [place] [address] [place] [address] [address] [place] [address] [phone] Health Maintenance Due Date Last Done Comments [...] Recombinant Vaccine 09/06/1997 (SHINGRIX) (1 of 2) Medicare Wellness Visit 09/06/2012 Osteoporosis Screening 09/06/2012 PNEUMOCOCCAL VACCINES 65+ (1 of 1 11/03/2012 11/04/2007 - PPSV23) INFLUENZA VACCINE (#1) 2019 Breast Cancer Screening 01/19/2020 01/18/2019, 06/20/2012, (MAMMOGRAM) 04/21/2011, Additional history exists HgA1C 04/13/2020 10/12/2019, 09/26/2007, 10/03/2004 LDL-C 10/10/2020 10/11/2019, 02/23/2005, 10/04/2004 CREATININE (SERUM) 10/13/2020 10/14/2019, 10/13/2019, 10/11/2019, Additional history exists documented as of this encounter Results Not on filedocumented in this encounter Insurance Payer Benefit Plan / Subscriber ID Effective Dates Phone Addre ss Type Group [employer] [id number] 2017-Present Medicare Adv spring HMO documented as of this encounter Advance Directives Type Date Recorded 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
--- OUTSIDE RECORDS SUMMARY | 2019-10-31 08:40 | XMS REPORT | Summary of Care ---
:1945 Author Organization [facility] Address [address] [place] [address] Care Team Providers Name Role Phone Evangelista Harrington Primary Care Provider Reason for Referral (Routine) Status Reason Specialty Diagnoses / Referred By Referred To Procedures Contact Contact New Request RADHA-SURGERY Diagnoses Calculus of gallbladder with acute cholecystitis without obstruction Reese Reyes, Procedures Discharge Follow-Up: Specialty Service RADHA-SURGERY (Dr. Patten); 2 Weeks [address] [place] [address] (Routine) Status Reason Specialty Diagnoses / Referred By Referred To Procedures Contact Contact New Request Diagnostic Diagnoses Calculus of gallbladder with acute cholecystitis without obstruction Sandor, Radiology Procedures FL TIME OR (NON-REPORTABLE) MD Natalia [address] [facility] [address] [place] [address] Radiology Services (Routine) Status Reason Specialty Diagnoses / Referred By Referred To Procedures Contact Contact New Request Diagnostic Diagnoses Acute pancreatitis without infection or necrosis, unspecified pancreatitis type Reese Reyes, Radiology Procedures US GALL BLADDER [address] [place] [address] (Routine) Status Reason Specialty Diagnoses / Referred By Referred To Procedures Contact Contact New Request Echocardiograph Diagnoses Chest pain, unspecified type Erika Henley, Procedures ECHO ROUTINE W/DOPPLER COLOR [address] [place] [id number] MRI/CAT Scan (STAT) Status Reason Specialty Diagnoses / Referred By Referred To Procedures Contact Contact New Request Diagnostic Diagnoses Chest pain, unspecified type Yarima, [place] Radiology Procedures CT ABDOMEN PELVIS W CONTRAST CT abdomen pelvis with and without contrast [place] [address] MRI/CAT Scan (STAT) Status Reason Specialty Diagnoses / Referred By Referred To Procedures Contact Contact New Request Diagnostic Diagnoses Chest pain, unspecified type Yarima, [place] Radiology Procedures CT ANGIOGRAM CHEST CT thorax with and without contrast [place] [address] Radiology Services (STAT) Status Reason Specialty Diagnoses / Referred By Referred To Procedures Contact Contact New Request Diagnostic Diagnoses Chest pain, unspecified type Yarima, [place] Radiology Procedures XR CHEST 1 VW COVID XR CHEST 1 VW MD Alfredo Hercules [place] [phone] Reason for Visit Reason Comments Chest Pain Auth/Cert Status Reason Specialty Diagnoses / Referred By Referred To Procedures Contact Contact Emergency Medicine [facility] Dept [address] [place] [phone] Fax: Encounter Details Date Type Department Care Team Description 10/11/2019 - Hospital ADC Intensive Care Jasper Yanez i, MD [address] [place] [id number] Acute pancreatitis 10/14/2019 Encounter Unit Erika Henley MD [address] [place] [id number] [place] [address] [address] [place], [place] [phone] Allergies No Known Allergiesdocumented as of this encounter (statuses as of 10/14/2019) Medications Medication Sig Dispensed Refills Start Date End Date Status LISINOPRIL 10 MG None Entered 0 Active ORAL TAB METFORMIN HCL Take 500 mg 0 Acti ve (METFORMIN ORAL) by mouth 2 (two) times daily. PANTOPRAZOLE SODIUM Take by 0 Active (PROTONIX ORAL) mouth. CLOPIDOGREL Take by 0 Active BISULFATE (PLAVIX mouth. ORAL) INSULIN LISPRO inject under 0 A ctive (HUMALOG SC) the skin. EMPAGLIFLOZIN Take by 0 Active (JARDIANCE ORAL) mouth. methocarbamol Take 1 tablet 20 tablet 0 07/10/2017 A ctive (ROBAXIN) 500 mg by mouth 4 tablet (four) times daily. ibuprofen 400 mg Take 1 tablet 30 tablet 0 10/14/2019 Active tabletIndications: by mouth Calculus of every 6 (six) gallbladder with hours as acute cholecystitis needed for without obstruction Pain (scale 4-6). traMADol 50 mg Take 1 tablet 16 tablet 0 10/14/2019 Active tabletIndications: by mouth acute pain, every 6 (six) palliative care hours as needed for Pain (scale 7-10). Indications: acute pain, chronic pain acetaminophen-codein Take 1 tablet 12 tablet 0 07/10/201710/2019 Discontinued e 300-30 mg tablet by mouth every 4 (four) hours as needed for Pain (scale 4-6). documented as of this encounter (statuses as of 10/14/2019) Active Problems Problem Noted Date Acute pancreatitis 10/12/2019 Coronary artery disease involving kiana coronary george ry of kiana heart 10/12/2019 without angina pectoris Type 2 diabetes mellitus without complication, without long-term current 10/12/2019 use of insulin Hyperlipidemia 06/06/2012 Type II or unspecified type diabetes mellitus with uns pecified 06/06/2012 complication, not stated as uncontrolled Acid reflux 06/06/2012 Essential hypertension, benign 06/06/2012 documented as of this encounter (statuses as of 10/14/2019) Resolved Problems Problem Noted Date Resolved Date Urinary tract infection, site not specified 11/05/2007 06/06/2012 Unspecified disorder of urethra and urinary tract 11/02/2007 06/06/2012 Hypercalcemia 06/21/2007 11/02/2007 Acute pyelonephritis without lesion of renal medullary 04/1506/06/2012 necrosis Hyperparathyroidism 04/14/2007 11/02/2007 Overview: ICD10 Diagnosis Term [employer] Calculus of kidney 08/16/2006 06/06/2012 documented as of this encounter (statuses as of 10/14/2019) Immunizations Name Administration Dates Next Due Pneumococcal Polysaccharide, PPSV23 (PNEUMOVAX) 11/04/2007 Td 03/08/2008 documented as of this encounter Social History Tobacco Use Types Packs/Day Years Used Date Never Smoker Smokeless Tobacco: Never Used Tobacco Cessation: Counseling Given: No Alcohol Use Drinks/Week oz/Week Comments Yes 1 Standard drinks or equivalent 0.8 Sex Assigned at Date Recorded Not on file COVID-19 Exposure Response Date Recorded In the last month, have you been in contact with No / Unsure 10/11/2019 8:26 PM CDT someone who was confirmed or suspected to have Coronavirus / COVID-19? documented as of this encounter Last Filed Vital Signs Vital Sign Reading Time Taken Comments Blood Pressure 175/76 10/14/2019 12:00 PM CDT Pulse 79 10/14/2019 12:00 PM CDT Temperature 36.9 C (98.5 F) 10/14/2019 12:00 PM CDT Respiratory Rate 18 10/14/2019 12:00 PM CDT Oxygen Saturation 96% 10/14/2019 12:00 PM CDT Inhaled Oxygen Concentration - - Weight 62.5 kg (137 lb 11.2 oz) 10/13/2019 3:00 AM CDT Height 154.9 cm (5' 1") 10/11/2019 8:27 PM CDT Body Mass Index 26.02 10/11/2019 8:27 PM CDT documented in this encounter Discharge Instructions AttachmentsThe following attachments cannot be sent through Care Everywhere. Cholecystectomy (Laparoscopic), Discharge Instructions (Japanese)Tramadol tablets (Japanese)Ibuprofen tablets and capsules (Japanese)documented in this encounter Progress Notes Natalia Patten MD - 10/14/2019 11:12 AM CDT GENERAL SURGERY DAILY PROGRESS NOTE Patient Name: Praveen Reddy Date of : 1945 Date: 10/14/2019 Surgery Date: 10/13/2019 Procedure: Laparoscopic cholecystectomy with intraoperative cholangiogram 1 Day Post-Op 24 Hour Events: The patient is doing well following surgery. She has no c/o. Her chest pain and upper abdominal painhave resolved. She is eating well without nausea or vomiting. She has been afebrile. Physical Exam: Vital Signs Temp: [36.2 C (97.2 F)-37.2 C (99 F)] Heart Rate (monitor): [74-87] Pulse: [63-135] Resp: [10-20] BP: (110-176)/(53-105) MAP (mmHg): [74-151] Intake/Output Intake/Output Summary (Last 24 hours) at 10/14/2019 1112 Last data filed at 10/14/2019 0600 Gross per 24 hour Intake 480 ml Output 650 ml Net -170 ml Constitutional: Awake, alert, oriented, in no acute distress Head: Normocephalic, atraumatic Eyes: Extraocular movements grossly intact, pupils equal and reactive to light and accomodation, anicteric sclerae Ears: Normal external exam Nose: Normal external exam Mouth: Moist mucous membranes Neck: Supple, no jugular venous distention Cardiovascular: Regular rate and rhythm without murmurs, gallops, or rubs Respiratory: Symmetry of chest wall motion, clear to ausculation bilaterally, no respiratory distress GI: Normoactive bowel sounds, soft, nontender, non-distended, incisions with band aids C/D/I Extremities: No clubbing, cyanosis, or edema Musculoskeletal: Normal tone and strength, normal range of motion Vascular: Radial and dorsalis pedis pulses palpable bilaterally Neurologic: CN II through XII grossly intact, no focal deficits Skin: Warm and dry, capillary refill <2 seconds, no jaundice, rashes, lesions, or erythema Psychiatric: Appropriate mood and affect, no obvious deficits of insight or judgment Labs: Results for PRAVEEN REDDY V ( ) as of 10/14/2019 11:14 Ref. Range 10/14/2019 05:16 WBC x10^3 Latest Ref Range: 4.30 - 11.10 10*3/L 7.77 RBC x10^6 Latest Ref Range: 3.93 - 5.25 10*6/L 3.98 HGB Latest Ref Range: 11.6 - 15.0 g/dL 11.7 HCT Latest Ref Range: 35.7 - 45.2 % 34.3 (L) MCV Latest Ref Range: 80.6 - 95.5 fL 86.2 MCH Latest Ref Range: 25.9 - 32.8 pg 29.4 MCHC Latest Ref Range: 31.6 - 35.1 g/dL 34.1 RDW-SD Latest Ref Range: 39.0 - 49.9 fL 41.1 RDW-CV Latest Ref Range: 12.0 - 15.5 % 13.1 PLT x10^3 Latest Ref Range: 166 - 358 10*3/L 263 MPV Latest Ref Range: 9.5 - 12.9 fL 10.7 NRBC /100 WBC Latest Ref Range: 0.0 - 10.0 /100 WBCs 0.0 NRBC x10^3 Latest Units: 10*3/L <0.01 GRAN MAT (NEUT) % Latest Units: % 74.5 IMM GRAN % Latest Units: % 0.30 LYMPH% Latest Units: % 16.3 MONO % Latest Units: % 8.8 EOS % Latest Units: % 0.0 BASO % Latest Units: % 0.1 GRAN MAT x10^3(ANC) Latest Ref Range: 1.88 - 7.09 10*3/uL 5.79 IMM GRAN x10^3 Latest Ref Range: 0.00 - 0.06 10*3/uL <0.03 LYMPH x10^3 Latest Ref Range: 1.32 - 3.29 10*3/uL 1.27 (L) MONO x10^3 Latest Ref Range: 0.33 - 0.92 10*3/uL 0.68 EOS x10^3 Latest Ref Range: 0.03 - 0.39 10*3/uL <0.03 (L) BASO x10^3 Latest Ref Range: 0.01 - 0.07 10*3/uL <0.03 NA Latest Ref Range: 135 - 145 mmol/L 135 K Latest Ref Range: 3.5 - 5.0 mmol/L 4.0 CL Latest Ref Range: 98 - 108 mmol/L 102 CO2 TOTAL Latest Ref Range: 23 - 31 mmol/L 26 AGAP Latest Ref Range: 2 - 16 7 BUN Latest Ref Range: 7 - 23 mg/dL 19 GLUCOSE Latest Ref Range: 70 - 110 mg/dL 269 (H) CREATININE Latest Ref Range: 0.50 - 1.04 mg/dL 0.70 eGFR CALCULATION (non ) Latest Units: mL/min/1.73m2 82.3 eGFR CALCULATION () Latest Units: mL/min/1.73m2 99.7 TOTAL BILI Latest Ref Range: 0.1 - 1.1 mg/dL 0.4 BILI UNCON Latest Ref Range: 0.1 - 1.1 mg/dL 0.5 BILI CONJ Latest Ref Range: 0.0 - 0.3 mg/dL 0.0 CALCIUM Latest Ref Range: 8.6 - 10.6 mg/dL 9.4 T PROTEIN Latest Ref Range: 6.3 - 8.2 g/dL 7.3 ALBUMIN Latest Ref Range: 3.5 - 5.0 g/dL 4.1 LIPASE Latest Ref Range: 0 - 220 U/L 158 ALK PHOS Latest Ref Range: 34 - 122 U/L 46 ALTv Latest Ref Range: 5 - 35 U/L 45 (H) AST(SGOT) Latest Ref Range: 13 - 40 U/L 43 (H) Medications: Scheduled Medicationsibuprofen, 400 mg, TID MEALS pantoprazole, 40 mg, DAILY insulin aspart, , TID MEALS+HS enoxaparin (LOVENOX) SC Syringe, 40 mg, DAILY lisinopril, 10 mg, DAILY IV Medications/Drips PRN Medicationsacetaminophen, 500 mg, Q6HPRN HYDROcodone-acetaminophen, 1 tablet, Q6HPRN dextrose 50 % in water (D50W), 25 mL, PRN glucagon, 1 mg, PRN nitroglycerin, 0.4 mg, Q5MIN PRN ondansetron, 4 mg, Q6HPRN Patient Active Problem List Diagnosis Hyperlipidemia Type II or unspecified type diabetes mellitus with unspecified complication, not stated as uncontrolled Acid reflux Essential hypertension, benign Acute pancreatitis Coronary artery disease involving kiana coronary artery of kiana heart without angina pectoris Type 2 diabetes mellitus without complication, without long-term current use of insulin Assessment: Praveen Reddy is a 74 year old female doing well following laparoscopic cholecystectomywith intraoperative cholangiogram for biliary pancreatitis. Plan: 1. Patient may be discharged today with 1 week follow up 2. May continue aspirin, resume Plavix on Wednesday 3. Postoperative instructions discussed with patient Discharge Instructions: 1. Keep the surgical wound clean and dry, remove band aids in 1 to 2 days, leave steri strips on until they fall off on their own 2. May shower with antibacterial soap, pat the incision dry, do not submerge incision in water for 2weeks 3. Watch for signs of fever, chills, warmth, redness, or drainage from your incision; seek medical attention for: Fever >100.4 F, increasing warmth, redness, swelling, drainage at incision site 4. Resume all home medication unless otherwise specified 5. Take prescribed medications as directed 6. If an opioid (i.e. Ultram, Tylenol with codeine, [place]) was prescribed, [id number] stool softeners may be taken as needed to prevent constipation 7. Resume regular diet 8. Do not lift more than 10 pounds for 4 weeks unless otherwise specified 9. Do not drive or operate heavy machinery while using narcotics 10. Keep all scheduled follow up appointments Natalia Patten M.D. 10/14/2019 11:12 chiki, MD Opal - 10/14/2019 10:12 AM CDT [facility] Cardiology progress note Date of Service: 10/14/2019 Praveen Reddy is a 74 years old female hospitalized for acute pancreatitis. Feeling better. S/p surgery. PHYSICAL EXAM Vitals: 10/14/19 0000 10/14/19 0400 10/14/19 0800 10/14/19 0821 BP: 114/57 124/58 (!) 166/77 Pulse: 66 68 63 79 Resp: 10 14 15 18 Temp: 36.9 C (98.5 F) 36.2 C (97.2 F) 36.9 C (98.5 F) TempSrc: Oral Oral Oral SpO2: 94% 93% 94% 97% Weight: Height: General: alert and oriented x 3 (person, place and date/time); no apparent distress HEENT: normocephalic atraumatic Neck: supple, no lymphadenopathy, no bruits, no JVD Lungs: clear to auscultation bilaterally Cardio: S1, S2, normal rate, regular; no murmurs, rubs or gallops Abdomen: non-distended : not examined Rectal: not examined Extremities: no clubbing, cyanosis, or edema Skin: no rashes Neuro: no focal deficits Medications: I have reviewed the patient's medications; see Medication Reconciliation. Labs: I have reviewed the patient's labs. ASSESSMENT AND PLAN Principal Problem: Acute pancreatitis Active Problems: Hyperlipidemia Essential hypertension, benign Coronary artery disease involving kiana coronary artery of kiana heart without angina pectoris Type 2 diabetes mellitus without complication, without long-term current use of insulin Acute pancreatitis--s/p surgery CAD--h/o PCI stenting. Plavix on hold. Restart when ok with surgery. HTN--the control is acceptable. Continue lisinopril. Opal Coppola MD, FAC, DAVID [employer] Vice President [employer] Division of Cardiology [facility] Reese Vásquez MD - 10/13/2019 6:11 PM CDT [facility] Hospitalist Progress Note SUBJECTIVE: In OR today CURRENT MEDICATIONS - reviewed. Current Facility-Administered Medications Medication Dose Route Frequency Last Rate Last Dose acetaminophen (TYLENOL) tablet 500 mg 500 mg Oral Q6HPRN HYDROcodone-acetaminophen (NORCO 5) 5-325 mg tablet 1 tablet 1 tablet Oral Q6HPRN ibuprofen (IBU) tablet 400 mg 400 mg Oral TID MEALS 400 mg at 10/13/19 1716 morpHINE injection 2 mg 2 mg Slow IV Push Q4HPRN [START ON 10/14/2019] pantoprazole (PROTONIX) EC tablet 40 mg 40 mg Oral DAILY Sliding Scale Insulin - Aspart (NOVOLOG) + Fsbg Testing Subcutaneous TID MEALS+HS dextrose 50 % in water (D50W) injection 25 mL 25 mL Slow IV Push PRN enoxaparin (LOVENOX) injection 40 mg 40 mg Subcutaneous DAILY Stopped at 10/13/19 0900 glucagon (GLUCAGEN DIAGNOSTIC KIT) injection 1 mg 1 mg Intramuscular PRN lisinopril (PRINIVIL,ZESTRIL) tablet 10 mg 10 mg Oral DAILY 10 mg at 10/13/19 0801 nitroglycerin (NITROSTAT) sublingual tablet 0.4 mg 0.4 mg Sublingual Q5MIN PRN ondansetron (ZOFRAN (PF)) injection 4 mg 4 mg Slow IV Push Q6HPRN 4 mg at 10/13/19 1101 PHYSICAL EXAM: BP 138/75 | Pulse 98 | Temp 36.3 C (97.4 F) (Oral) | Resp 19 | Ht 5' 1" (1.549 m) | Wt 137 lb 11.2 oz (62.5 kg) | LMP 03/08/1987 | SpO2 96% | BMI 26.02 kg/m Unable to examine due to being in OR LABS/IMAGING - reviewed, pertinent results as below: CBC BMP PT/INR WBC x10^3 (/uL) Date Value 06/12/2012 5.0 WBC (10*3/L) Date Value 10/13/2019 4.26 (L) NA Date Value 10/13/2019 137 mmol/L 06/12/2012 137 MMOL/L No results found for: PT RBC x10^6 (/uL) Date Value 06/12/2012 4.18 RBC (10*6/L) Date Value 10/13/2019 3.90 (L) K Date Value 10/13/2019 4.0 mmol/L 06/12/2012 4.7 MMOL/L PT INR (no units) Date Value 04/19/2006 1.0 INR (no units) Date Value 10/11/2019 0.9 PLT x10^3 (/uL) Date Value 06/12/2012 278 PLT (10*3/L) Date Value 10/13/2019 242 CALCIUM Date Value 10/13/2019 9.1 mg/dL 06/12/2012 9.5 MG/DL HGB Date Value 10/13/2019 11.2 g/dL (L) 06/12/2012 11.8 G/DL CL Date Value 10/13/2019 107 mmol/L 06/12/2012 104 MMOL/L aPTT HCT (%) Date Value 10/13/2019 34.9 (L) 06/12/2012 36.1 BUN Date Value 10/13/2019 11 mg/dL 06/12/2012 25 MG/DL (H) APTT (SEC) Date Value 04/19/2006 30 CREATININE Date Value 10/13/2019 0.56 mg/dL 06/12/2012 0.57 MG/DL IMAGING- Hospital Encounter on 10/11/19 XR CHEST 1 VW COVID Narrative PROCEDURE: CHEST, SINGLE VIEW . CLINICAL INDICATION: chest pain COMPARISON: None FINDINGS: The lungs are clear. No pleural effusion or pneumothorax is seen. The aorta is tortuous with a mildly calcified aortic arch. The heart is normal in size. No acute bony abnormality. Surgical clips project over the right neck. Impression No acute intrathoracic abnormality, specifically no detectable radiographic findings to suggest COVID-19 pneumonia. Disclaimer: Generally, the findings on chest imaging in COVID-19 are not specific, and overlap with other infections, including influenza, H1N1, SARS and MERS. According to the Centers for Disease Control (CDC) and recent statement of the [employer], viral testing remains the only specific method of diagnosis. Confirmation with the viral test is required, even if radiologic findings are suggestive of COVID-[address] Preliminary Report Dictated by Resident: Ming Reid I, Kya Velazquez MD., have reviewed this study and agree with the above report. FL TIME OR (NON-REPORTABLE) Narrative These images do not require a Radiology diagnostic report. US GALL BLADDER Narrative HISTORY: Gallstones, pancreatitis. TECHNIQUE: Gallbladder is evaluated in multiple planes with the patient in different positions. Color imaging is utilized. FINDINGS: Comparison is made with yesterday night CT studies. Gallbladder is of normal size and shape with mild diffuse thickening of the horta. Single mobile gallstone of approximately 6.6 mm size noted in the dependent portion of the gallbladder lumen. Focal bright echo is seen in the anterior wall near the fundus which could be a small 2 mm polyp. No biliary sludge or crystals seen. No free fluid detected in pericholecystic space. Common hepatic duct is 4.1 mm. The pancreas is completely obscured due to gas. Hepatic and portal venous system appeared patent. CONCLUSION: Chronic cholecystitis with single mobile gallstone. CT ABDOMEN PELVIS W CONTRAST Narrative EXAM: CT ABDOMEN AND PELVIS WITH CONTRAST HISTORY: Epigastric pain. Concern for abdominal infection. COMPARISON: None. TECHNIQUE AND FINDINGS: Contiguous axial imaging from the level of the lung bases through the proximal femurs was performed after the uncomplicated administration of intravenous contrast and oral Omnipaque contrast. Coronal and sagittal reconstructions were obtained. Auto mA and/or iterative reconstruction were used to reduce radiation dose. FINDINGS: LOWER THORAX: Please refer to the concurrently obtained, separately dictated, CT thorax report for detailed intrathoracic findings. LIVER: No focal hepatic lesions. [id number] contour. GALLBLADDER AND BILIARY TREE: Partially decompressed gallbladder containing cholelithiasis. No pericholecystic inflammatory change or free fluid. No biliary ductal dilation. SPLEEN: No splenomegaly. Minimal fullness of the pancreatic head without discernible pancreatic or peripancreatic inflammatory change or stranding. No discernible pancreatic mass. PANCREAS: No ductal dilation or masses. ADRENAL GLANDS: No adrenal nodules. KIDNEYS: 2.2 cm right lower renal pole hypoattenuating lesion within the enhancing septation represents a Bosniak 2F lesion (27:71). Suspected 9 mm right lower renal pole nonobstructive calculus (evaluation is limited due to contrast excreted within the collecting system). Bilateral cortical scarring most prominent within the right lower renal pole. Pattern of scarring is suggestive of prior percutaneous nephrostomy tube. Few bilateral sub-5 mm vertical hypoattenuating lesions are too small to characterize. No hydronephrosis. PERITONEUM AND RETROPERITONEUM: No free air or fluid. LYMPH NODES: No lymphadenopathy. GI TRACT: No dilation or wall thickening. Normal appendix (27:103). Small sliding-type hiatal hernia. PELVIS/BLADDER: The uterus within normal limits. Unremarkable left ovary. 1 cm right ovarian dominant follicle. The urinary bladder is mildly to moderately distended and contains opacified ureteral jets. Unremarkable urinary bladder hrota. VESSELS: Background of moderate calcified and noncalcified aortoiliac atherosclerosis. A short segment of infrarenal abdominal aorta demonstrates mild to moderate luminal stenosis secondary to noncalcified atherosclerotic plaque (most prominent at 27:72). No large vessel occlusion. No significant ostial stenosis Two calcified foci measuring 0.8 and 1.0 cm at the splenic hilum are concerning for splenic artery aneurysms (27:35). BONES AND SOFT TISSUES: No suspicious lytic or sclerotic bony lesions. Multilevel mild thoracolumbar spondylosis. Prominent concentric posterior disc osteophyte complex spanning T12-L3 results in mild to moderate spinal canal stenosis at these levels. Impression 1. Minimal fullness of the pancreatic head may be related to subclinical inflammation. However, there is no discernible pancreatic or peripancreatic inflammatory change or stranding despite lipase elevations. No drainable retroperitoneal collections. 2. Cholelithiasis without CT findings indicative of acute cholecystitis. 3. Nonobstructive right nephrolithiasis. 4. Noncalcified atherosclerotic plaque affecting a short segment of infrarenal abdominal aorta results in mild to moderate luminal stenosis. No dissection, large vessel occlusion, or significant ostial stenosis. 5. Mild degenerative changes of the thoracolumbar spine with multifocal disc osteophyte complex spanning T12-L3 with resultant mild to moderate spinal canal stenoses at these levels. Preliminary Report Dictated by Resident: Briseyda Haro MD., have reviewed this study and agree with the above report. CT ANGIOGRAM CHEST Narrative PROCEDURE: CT ANGIO CHEST WITH CONTRAST - PE PROTOCOL CLINICAL INDICATION: Chest pain. COMPARISON: None. TECHNIQUE: Helical CT was performed and reconstructed at 1.25 mm slice thickness from lung base to apices after the administration of intravenous contrast, without complication. 3D axial MIPS and coronal MPR images were generated under radiologist supervision, and reviewed to further define anatomy and possible pathology. Display field of view: 34 cm. FINDINGS: PULMONARY ARTERIES: Enhancement is adequate, and there is no acute or chronic pulmonary embolism. CHEST: Lower neck/thyroid: Unremarkable. Lungs: A 0.7 cm groundglass nodule within the left upper lobe (12:53). A 0.8 cm groundglass nodule within the right upper lobe (12:54).. Central airway: Unremarkable. Pleura: No pleural effusion, thickening or pneumothorax. Thoracic aorta and great vessels: Bovine arch anatomy. Minimal calcified and noncalcified atherosclerosis of the aortic arch and thoracic aorta. Circumferential atherosclerotic plaque at the origin of left subclavian artery without significant luminal narrowing. No dissection or aneurysm. Heart and pericardium: Mild coronary artery calcifications. Calcifications of the aortic root. Unremarkable cardiac morphology and pericardium. Lymph nodes: No enlarged thoracic lymph nodes. Mediastinum: Unremarkable. Thoracic spine and chest wall: Mild Spondylosis. Normal thoracic vertebral body heights. Left shoulder osteoarthrosis. Visualized upper abdomen: Please refer to the concurrently obtained, separately dictated, CT abdomen/pelvis report for detailed intra-abdominal findings. . Impression 1. No evidence of a pulmonary embolism to the level of the subsegmental branches. No dissection or aneurysm. 2. A 0.7 cm left upper lobe and a 0.8 cm right upper lobe groundglass nodules may be related to an infectious/inflammatory process. Neoplastic process is not ruled out. A follow up CT thorax in 6 months is recommended. Preliminary Report Dictated by Resident: Bentley Haro MD., have reviewed this study and agree with the above report. ASSESSMENT/PLAN Praveen Reddy is a 74 year old female with PMH as listed above, admitted to the hospital with: Acute gallstone pancreatitis US shows chronic cholecystitis, gallstones S/p lap maura by Dr. Patten 10/12 Monitor abdomen, po intake Trend lipase HTN On lisinopril Prophylaxis: DVT- SCD Stress Ulcer: no indication for prophylaxis Code Status: Full Disposition: Home when cleared by surgery Reese Reyes MD ai, MD Opal - 10/13/2019 8:15 AM CDT [facility] Cardiology progress note Date of Service: 10/13/2019 Praveen Reddy is a 74 years old female hospitalized for acute pancreatitis. Feeling better. Surgerytoday. PHYSICAL EXAM Vitals: 10/12/19 2034 10/13/19 0000 10/13/19 0300 10/13/19 0455 BP: (!) 142/90 136/63 Pulse: 59 65 63 Resp: 20 14 Temp: 37.2 C (98.9 F) 37.2 C (98.9 F) TempSrc: Oral Oral SpO2: 96% 95% 93% Weight: 62.5 kg (137 lb 11.2 oz) Height: General: alert and oriented x 3 (person, place and date/time); no apparent distress HEENT: normocephalic atraumatic Neck: supple, no lymphadenopathy, no bruits, no JVD Lungs: clear to auscultation bilaterally Cardio: S1, S2, normal rate, regular; no murmurs, rubs or gallops Abdomen: non-distended : not examined Rectal: not examined Extremities: no clubbing, cyanosis, or edema Skin: no rashes Neuro: no focal deficits Medications: I have reviewed the patient's medications; see Medication Reconciliation. Labs: I have reviewed the patient's labs. ASSESSMENT AND PLAN Principal Problem: Acute pancreatitis Active Problems: Hyperlipidemia Essential hypertension, benign Coronary artery disease involving kiana coronary artery of kiana heart without angina pectoris Type 2 diabetes mellitus without complication, without long-term current use of insulin Preop cardiac risk--Moderate risk. CAD s/p PCI a few years ago. No acute symptoms. ECHO showed normal EF. OK to hold plavix. Acute pancreatitis--per primary team CAD--h/o PCI stenting. At home has been on plavix. Now will hold. HTN--the control is acceptable. Continue lisinopril. Opal Coppola MD, [facility], [facility] [employer]ant [employer] Vice President [employer] ), Division of Cardiology [facility] Adam Lambert RN - 10/12/2019 1:39 PM CDT Care Management Social Functional Assessment Patient Name: Praveen Reddy Age: [age] year old Sex: female Patient's Previous Admission Date at [facility]: 11/03/2007 Current diagnosis and co-morbidities: acute pancreatitis chest pain Readmission Questions: Was patient discharged from any acute care hospital within the last 30 days: No Social Functional Assessment: Primary language spoken/preferred: Japanese Mental Status: Alert & Oriented to Person,Place & Time Information given by: Self Patient's support system: Spouse;Child Name and number of support system: Julio Reddy spouse [phone], Matilda Reddy child [phone] Primary Regional Ehs Manager: Self MPOA: Same as support system Living Arrangement: Home Address of living arrangement : [address] [place] [address] Persons living in home: Same as support system Barriers to returning home: None Baseline functional status- ambulation: Independent Functional status-baseline personal care: Independent Baseline functional status- driving: Independent Baseline functional status- grocery shopping: Independent Functional status-baseline housekeeping: Independent Functional status-baseline meal prep: Independent Current functional status same as prior: Yes Do you have a PCP?: Yes Name of PCP: [facility] Care Agency: No Provider Services: No DME Company: No Equipment: None Hemodialysis: No Funding Resources: Medicare Replacement Medicare Replacement name and information: [employer] Prescription coverage plan: Medicare Part D Pharmacy where meds are filled: ([facility]) Expected mode of discharge transportation: Same as support system Additional info required for discharge planning: Pending medical evaluation Recommended discharge plan: Home SFA Complete: Social Functional Assessment complete: Yes Alcohol Use Screening (AUDIT-C) How often do you have a drink containing alcohol?: Never SCORE: 0 Role of Care Management explained. Yes Any issues or concerns with obtaining/affording your medications at home: no. Are you or your support system able to diamond picker medications at discharge: yes. Describe: Adam Honeycutt RN, BSN [facility] O [phone] documented in this encounter H&P Notes Erika Henley MD - 10/12/2019 2:59 AM CDT MEDICINE ADC ADMIT H&P Date of Service: 10/12/2019 CHIEF COMPLAINT: chest/abdominal pain History of Present Illness 74 year-old female with pmh of nephrolithiasis, DM, GERD, HTN, CAD s/p stents who presents to the EDsecondary to chest pain, abdominal pain with associated symptoms includes nausea. She denies any vomiting, fever, chills. She notes that the chest pain started first about 2 days ago. She described it as substernal radiating to her back. Associated with shortness of breath and nausea. No diaphoresisor vomiting. She note it occurred with rest and exertion. Today, she started having the epigastric tenderness also associated with nausea. PAST MEDICAL HISTORY Past Medical History: Diagnosis Date Calculus of kidney Diabetes mellitus Esophageal reflux Herpes zoster without mention of complication Unspecified essential hypertension Past Surgical History: Procedure Laterality Date PARTIAL PARATHYROIDECTOMY 06/07/2007 Rt REMOVAL OF KIDNEY STONE 06/28/2006 STENT PLACEMENT (SHX) Cardiac Family History Problem Relation Age of Onset Stroke Father Cancer Sister Breast Breast Cancer Sister ALLERGIES No Known Allergies MEDICATIONS No current facility-administered medications on file prior to encounter. Current Outpatient Medications on File Prior to Encounter Medication Sig Dispense Refill acetaminophen-codeine 300-30 mg tablet Take 1 tablet by mouth every 4 (four) hours as needed forPain (scale 4-6). 12 tablet 0 CLOPIDOGREL BISULFATE (PLAVIX ORAL) Take by mouth. EMPAGLIFLOZIN (JARDIANCE ORAL) Take by mouth. INSULIN LISPRO (HUMALOG SC) inject under the skin. methocarbamol (ROBAXIN) 500 mg tablet Take 1 tablet by mouth 4 (four) times daily. 20 tablet 0 PANTOPRAZOLE SODIUM (PROTONIX ORAL) Take by mouth. METFORMIN HCL (METFORMIN ORAL) Take 500 mg by mouth 2 (two) times daily. LISINOPRIL 10 MG ORAL TAB None Entered SOCIAL HISTORY Social History Socioeconomic History Marital status: Spouse name: Not on file Number of children: Not on file Years of education: Not on file Highest education level: Not on file Occupational History Not on file Social Needs Financial resource strain: Not on file Food insecurity Worry: Not on file Inability: Not on file Transportation needs Medical: Not on file Non-medical: Not on file Tobacco Use Smoking status: Never Smoker Smokeless tobacco: Never Used Substance and Sexual Activity Alcohol use: Yes Alcohol/week: 0.8 standard drinks Types: 1 Standard drinks or equivalent per week Drug use: No Sexual activity: Never Lifestyle Physical activity Days per week: Not on file Minutes per session: Not on file Stress: Not on file Relationships Social connections Talks on phone: Not on file Gets together: Not on file Attends faith service: Not on file Active member of club or organization: Not on file Attends meetings of clubs or organizations: Not on file Relationship status: Not on file Intimate partner violence Fear of current or ex partner: Not on file Emotionally abused: Not on file Physically abused: Not on file Forced sexual activity: Not on file Other Topics Concern Not on file Social History Narrative . Lives in [place] with and son Review of Systems Constitutional: Negative. HENT: Negative. Eyes: Negative. Respiratory: Positive for cough and shortness of breath. Negative for apnea, choking, chest tightness, wheezing and stridor. Breasts: Negative. Cardiovascular: Positive for chest pain. Negative for palpitations and leg swelling. Gastrointestinal: Positive for abdominal pain and nausea. Negative for abdominal distention, anal bleeding, blood in stool, constipation, diarrhea, rectal pain and vomiting. Genitourinary: Negative. Musculoskeletal: Negative. Skin: Negative. Neurological: Negative. Psychiatric/Behavioral: Negative. Endocrine: Endocrine negative PHYSICAL EXAMINATION Vitals: 10/11/19 2300 10/12/19 0000 10/12/19 0100 10/12/19 0241 BP: (!) 167/66 (!) 141/60 (!) 145/62 (!) 168/72 Pulse: 75 62 58 67 Resp: Temp: 36.4 C (97.6 F) TempSrc: SpO2: 96% 96% 100% Weight: 62 kg (136 lb 9.6 oz) Height: Physical Exam Constitutional: She is oriented to person, place, and time. She appears well- developed and well-nourished. No distress. HENT: Head: Normocephalic and atraumatic. Right Ear: External ear normal. Left Ear: External ear normal. Eyes: Pupils are equal, round, and reactive to light. Conjunctivae and EOM are normal. Right eye exhibits no discharge. Left eye exhibits no discharge. No scleral icterus. Neck: Normal range of motion. Pulmonary/Chest: Effort normal and breath sounds normal. No respiratory distress. She exhibits no tenderness. Abdominal: Soft. Bowel sounds are normal. She exhibits no distension and no mass. There is abdominaltenderness (epigastric region). There is no rebound and no guarding. Musculoskeletal: Normal range of motion. General: No tenderness or edema. Comments: Inspection and palpation of the knee and ankles bilaterally reveal no abnormality. Neurological: She is alert and oriented to person, place, and time. Skin: Skin is warm and dry. No rash noted. No erythema. No pallor. Psychiatric: She has a normal mood and affect. Her behavior is normal. Judgment and thought content normal. LABS - reviewed pertinent labs as below: Reviewed IMAGING - reviewed, pertinent results as below: PROCEDURE: CHEST, SINGLE VIEW . CLINICAL INDICATION: chest pain COMPARISON: None FINDINGS: The lungs are clear. No pleural effusion or pneumothorax is seen. The aorta is tortuous with a mildly calcified aortic arch. The heart is normal in size. No acute bony abnormality. Surgical clips project over the right neck. IMPRESSION No acute intrathoracic abnormality, specifically no detectable radiographic findings to suggest COVID-19 pneumonia. Disclaimer: Generally, the findings on chest imaging in COVID-19 are not specific, and overlap with other infections, including influenza, H1N1, SARS and MERS. According to the Centers for Disease Control (CDC) and recent statement of the [employer], viral testing remains the only specific method of diagnosis. Confirmation with the viral test is required, even if radiologic findings are suggestive of COVID-[address]. Preliminary Report Dictated by Resident: Ming Reid I, Kya Velazquez MD., have reviewed this study and agree with the above Report. PROCEDURE: CT ANGIO CHEST WITH CONTRAST - PE PROTOCOL CLINICAL INDICATION: Chest pain. COMPARISON: None. TECHNIQUE: Helical CT was performed and reconstructed at 1.25 mm slice thickness from lung base to apices after the administration of intravenous contrast, without complication. 3D axial MIPS and coronal MPR images were generated under radiologist supervision, and reviewed to further define anatomy and possible pathology. Display field of view: 34 cm. FINDINGS: PULMONARY ARTERIES: Enhancement is adequate, and there is no acute or chronic pulmonary embolism. CHEST: Lower neck/thyroid: Unremarkable. Lungs: A 0.8 cm groundglass nodule within the left upper lobe (12:53). A 0.9 cm groundglass nodule within the right upper lobe (12:54).. Central airway: Unremarkable. Pleura: No pleural effusion, thickening or pneumothorax. Thoracic aorta and great vessels: Bovine arch anatomy. Minimal calcified and noncalcified atherosclerosis of the aortic arch and thoracic aorta. No dissection or aneurysm. Heart and pericardium: Mild coronary artery calcifications. Calcifications of the aortic root. Unremarkable cardiac morphology and pericardium. Lymph nodes: No enlarged thoracic lymph nodes. Mediastinum: Unremarkable. Thoracic spine and chest wall: Mild Spondylosis. Normal thoracic vertebral body heights. Left shoulder osteoarthrosis. Visualized upper abdomen: Please refer to the concurrently obtained, separately dictated, CT abdomen/pelvis report for detailed intra-abdominal findings. . IMPRESSION 1. No evidence of a pulmonary embolism to the level of the subsegmental branches. No dissection or aneurysm. 2. A 0.8 cm left upper lobe and a 0.9 cm right upper lobe groundglass nodules may be related to an infectious/inflammatory process. Clinical correlation recommended. Preliminary Report Dictated by Resident: Dayana Mccord Ikwuagwu EXAM: CT ABDOMEN AND PELVIS WITH CONTRAST HISTORY: Epigastric pain. Concern for abdominal infection. COMPARISON: None. TECHNIQUE AND FINDINGS: Contiguous axial imaging from the level of the lung bases through the proximal femurs was performed after the uncomplicated administration of intravenous contrast and oral Omnipaque contrast. Coronal and sagittal reconstructions were obtained. Auto mA and/or iterative reconstruction were used to reduce radiation dose. FINDINGS: LOWER THORAX: Please refer to the concurrently obtained, separately dictated, CT thorax report for detailed intrathoracic findings. LIVER: No focal hepatic lesions. Normal contour. GALLBLADDER AND BILIARY TREE: Cholelithiasis. Decompressed gallbladder with resultant circumferential mural thickening. No biliary ductal dilation. SPLEEN: No splenomegaly. Calcified vessels at the splenic hilum. PANCREAS: No ductal dilation or masses. ADRENAL GLANDS: No adrenal nodules. KIDNEYS: A 2 cm right inferior pole renal sinus cyst contains a 0.9 cm renal calculus. No hydronephrosis, stones, or masses. PERITONEUM AND RETROPERITONEUM: No free air or fluid. LYMPH NODES: No lymphadenopathy. GI TRACT: No dilation or wall thickening. Normal appendix (27:103). PELVIS/BLADDER: The uterus within normal limits. Unremarkable left ovary. 1 cm right ovarian dominant follicle. The urinary bladder is mildly to moderately distended and contains opacified ureteral jets. Unremarkable urinary bladder horta. VESSELS: Background of moderate calcified and noncalcified aortoiliac atherosclerosis. A short segment of infrarenal abdominal aorta demonstrates mild to moderate luminal stenosis secondary to noncalcified atherosclerotic plaque (most prominent at 27:72). No large vessel occlusion. No significant ostial stenosis BONES AND SOFT TISSUES: No suspicious lytic or sclerotic bony lesions. Multilevel mild thoracolumbar spondylosis. Prominent calcified concentric posterior disc bulges spanning T12-L3 results in mild to moderate spinal canal stenosis at these levels. IMPRESSION 1. No acute findings within the abdomen and pelvis. Normal appendix. 2. Cholelithiasis without CT findings indicative of acute cholecystitis. Nonobstructive right nephrolithiasis. 3. Noncalcified atherosclerotic plaque affecting a short segment of infrarenal abdominal aorta results in mild to moderate luminal stenosis. No dissection, large vessel occlusion, or significant ostial stenosis. 4. Mild degenerative changes of the thoracolumbar spine with multifocal disc bulges spanning T12-L3 with resultant mild to moderate spinal canal stenoses at these levels. Preliminary Report Dictated by Resident: Dayana Combs ASSESSMENT/PLAN Praveen Reddy is a 74 year old female with PMH as listed above, admitted to the hospital with: 1. Acute pancreatitis: -- Will keep NPO with medications -- Nausea and pain control -- Will continue with fluid hydration. 2. Diabetes mellitus: -- Q6 hour check with insulin sliding scale 3. GERD: -- Will resume protonix 4. HTN: -- Will continue with outpatient antihypertensive agent -- Pain control Prophylaxis: DVT- enoxaparin Code Status: addressed: FC Estimated LOS: This inpatient admission will likely require greater than or equal to 2 Midnights. Management is not feasible as an outpatient and there is concern for adverse outcomes if not managed in an inpatient setting. Advance care planning discussed for 17 mins with patient at bedside. Surrogate decision maker: Martinez Reddy (spouse) - [phone] documented in this encounter Consult Notes Opal Coppola MD - 10/12/2019 2:59 PM CDTAssociated Order(s): CONSULT CARDIOLOGY [facility] Cardiology Consult PCP: José Luis Harrington Date of Service: 10/12/2019 CHIEF COMPLAINT/reason for consult: chest pain HISTORY OF PRESENT ILLNESS This is a 74 year-old female with PMH DM, HTN, HLD, CAD s/p PCI stenting with last PCI 4-[address] Mera. She was admitted for epigastric/chest pain. She has had intermittent lower substernal and epigastric pain for about a few days. It is ache, radiating to the back, seems to be posit ional, without response to NTG. Found to have lipase elevation. PAST MEDICAL HISTORY Past Medical History: Diagnosis Date Calculus of kidney Diabetes mellitus Esophageal reflux Herpes zoster without mention of complication Unspecified essential hypertension Past Surgical History: Procedure Laterality Date PARTIAL PARATHYROIDECTOMY 06/07/2007 Rt REMOVAL OF KIDNEY STONE 06/28/2006 STENT PLACEMENT (SHX) Cardiac Family History Problem Relation Age of Onset Stroke Father Cancer Sister Breast Breast Cancer Sister ALLERGIES No Known Allergies MEDICATIONS No current facility-administered medications on file prior to encounter. Current Outpatient Medications on File Prior to Encounter Medication Sig Dispense Refill acetaminophen-codeine 300-30 mg tablet Take 1 tablet by mouth every 4 (four) hours as needed forPain (scale 4-6). 12 tablet 0 CLOPIDOGREL BISULFATE (PLAVIX ORAL) Take by mouth. EMPAGLIFLOZIN (JARDIANCE ORAL) Take by mouth. INSULIN LISPRO (HUMALOG SC) inject under the skin. methocarbamol (ROBAXIN) 500 mg tablet Take 1 tablet by mouth 4 (four) times daily. 20 tablet 0 PANTOPRAZOLE SODIUM (PROTONIX ORAL) Take by mouth. METFORMIN HCL (METFORMIN ORAL) Take 500 mg by mouth 2 (two) times daily. LISINOPRIL 10 MG ORAL TAB None Entered SOCIAL HISTORY Social History Socioeconomic History Marital status: Spouse name: Not on file Number of children: Not on file Years of education: Not on file Highest education level: Not on file Occupational History Not on file Social Needs Financial resource strain: Not on file Food insecurity Worry: Not on file Inability: Not on file Transportation needs Medical: Not on file Non-medical: Not on file Tobacco Use Smoking status: Never Smoker Smokeless tobacco: Never Used Substance and Sexual Activity Alcohol use: Yes Alcohol/week: 0.8 standard drinks Types: 1 Standard drinks or equivalent per week Drug use: No Sexual activity: Never Lifestyle Physical activity Days per week: Not on file Minutes per session: Not on file Stress: Not on file Relationships Social connections Talks on phone: Not on file Gets together: Not on file Attends faith service: Not on file Active member of club or organization: Not on file Attends meetings of clubs or organizations: Not on file Relationship status: Not on file Intimate partner violence Fear of current or ex partner: Not on file Emotionally abused: Not on file Physically abused: Not on file Forced sexual activity: Not on file Other Topics Concern Not on file Social History Narrative . Lives in [place] with and son REVIEW OF SYSTEMS General: (-) fever, (-) chills, (-) weight change, (-) dizziness, (-) fatigue Skin: (-) rash HEENT: (-) headache, (-) change in vision Neck: (-) difficulty swallowing Heme: negative Resp: (-) cough, (-) dyspnea on exertion Cardio: (+) chest pain, (-) palpitations, (-) syncope GI: (-) vomiting, (-) diarrhea : negative Endo: (+) diabetes, (-) thyroid disease Neuro: (-) numbness, (-) tingling, (-) weakness Back: (-) pain MICHELLE: (-) muscle pain, (-) claudication Psych: (-) anxiety, (-) depression PHYSICAL EXAMINATION Vitals: 10/12/19 0241 10/12/19 0452 10/12/19 0749 10/12/19 1100 BP: (!) 168/72 113/61 138/62 (!) 140/75 Pulse: 67 60 68 Resp: 18 16 18 18 Temp: 36.4 C (97.6 F) 36 C (96.8 F) 36.4 C (97.5 F) 36.4 C (97.5 F) TempSrc: Temporal Artery Oral Oral SpO2: 100% 98% 98% 96% Weight: 62 kg (136 lb 9.6 oz) Height: Constitutional: alert and oriented x 3 (person, place and date/time); no apparent distress ENT: normocephalic atraumatic, supple, no lymphadenopathy, no bruits, no JVD Lungs: clear to auscultation bilaterally Cardiovascular: S1, S2 normal, regular; no murmurs, rubs or gallops GI: soft; non-tender; non-distended; normoactive bowel sounds : not examined Musculoskeletal: Extremities: no clubbing, cyanosis, or edema Skin: no rashes Neuro: no focal deficits LABS - reviewed pertinent labs as below: CBC BMP PT/INR WBC x10^3 (/uL) Date Value 06/12/2012 5.0 WBC (10*3/L) Date Value 10/11/2019 5.82 NA Date Value 10/11/2019 134 mmol/L (L) 06/12/2012 137 MMOL/L No results found for: PT PLT x10^3 (/uL) Date Value 06/12/2012 278 PLT (10*3/L) Date Value 10/11/2019 275 K Date Value 10/11/2019 4.4 mmol/L 06/12/2012 4.7 MMOL/L PT INR (no units) Date Value 04/19/2006 1.0 INR (no units) Date Value 10/11/2019 0.9 HGB Date Value 10/11/2019 12.5 g/dL 06/12/2012 11.8 G/DL BUN Date Value 10/11/2019 28 mg/dL (H) 06/12/2012 25 MG/DL (H) HCT (%) Date Value 10/11/2019 37.6 06/12/2012 36.1 CREATININE Date Value 10/11/2019 0.88 mg/dL 06/12/2012 0.57 MG/DL LIPID PROFILE GLUCOSE Date Value 10/11/2019 253 mg/dL (H) 06/12/2012 232 MG/DL (H) CHOL (MG/DL) Date Value 02/23/2005 207 (H) TSH LDL CHOL (MG/DL) Date Value 02/23/2005 130 TSH (uIU/mL) Date Value 10/03/2004 1.23 CARDIAC ENZYMES HDL CHOL (MG/DL) Date Value 02/23/2005 50 CK (U/L) Date Value 10/04/2004 <20 (A) TRIG (MG/DL) Date Value 02/23/2005 135 LFTs CK-MB (ng/mL) Date Value 10/04/2004 <0.2 AST(SGOT) (U/L) Date Value 10/11/2019 22 06/12/2012 25 TROPONIN I (ng/mL) Date Value 10/12/2019 <0.012 10/04/2004 0.01 ALT(SGPT) (U/L) Date Value 06/12/2012 38 ALTv (U/L) Date Value 10/11/2019 19 BNP (pg/mL) Date Value 02/23/2005 9 EKG: normal ASSESSMENT/PLAN Principal Problem: Acute pancreatitis Active Problems: Hyperlipidemia Essential hypertension, benign Coronary artery disease involving kiana coronary artery of kiana heart without angina pectoris Type 2 diabetes mellitus without complication, without long-term current use of insulin Chest pain/abdominal pain--No acute EKG changes. Troponin negative. No response to NTG. Seems to be positional. Suspect pancreatitis related. ECHO to assess LVEF and wall motion etc. Acute pancreatitis--per primary team CAD--h/o PCI stenting. At home has been on plavix. HTN--the control is acceptable. Continue lisinopril. Thank you for allowing us to participate in the care of your patient. Please feel free to contact usfor any questions or if we can be of further assistance. Opal Coppola MD, [facility], [facility] [employer]ant [employer] Vice President [employer] Division of Cardiology [facility] Cheryl Oconnor MD - 10/12/2019 2:47 PM CDTAssociated Order(s): CONSULT GENERAL SURGERY GENERAL SURGERY CONSULT Date of Service: 10/12/19 Chief Complaint: We were asked to see this patient in the MICU to give our opinion regarding Praveen Schulz 74 year old female who presents with lower chest and epigastric abdominal pain. HPI Praveen Reddy is a 74 year old female with PMH DM, HTN, HLD, CAD s/p PCI stenting with last PCI 4-5years ago presented to hospital with epigastric and chest pain radiating to her back for 2 days. Patient had nausea but no vomiting. She denies fever, chills. In ED patient had WBC:5.8, TB:0.2 and lipase: 4503. Cardiac work up was negative. CT shows minimal inflammation at pancreatic head and cholelithiasis and US showed chronic cholecystitis. Now lipase is trending down to 50 0 and pain is improved CURRENT HOSPITAL MEDICATIONS Current Facility-Administered Medications Medication Dose Route Frequency Last Rate Last Dose acetaminophen-codeine (TYLENOL #3) 300-30 mg tablet 1 tablet 1 tablet Oral Q4HPRN dextrose 50 % in water (D50W) injection 25 mL 25 mL Slow IV Push PRN enoxaparin (LOVENOX) injection 40 mg 40 mg Subcutaneous DAILY 40 mg at 10/12/19 0856 glucagon (GLUCAGEN DIAGNOSTIC KIT) injection 1 mg 1 mg Intramuscular PRN lisinopril (PRINIVIL,ZESTRIL) tablet 10 mg 10 mg Oral DAILY 10 mg at 10/12/19 0857 morpHINE injection 2 mg 2 mg Slow IV Push Q4HPRN nitroglycerin (NITROSTAT) sublingual tablet 0.4 mg 0.4 mg Sublingual Q5MIN PRN ondansetron (ZOFRAN (PF)) injection 4 mg 4 mg Slow IV Push Q6HPRN Sliding Scale Insulin - Aspart (NOVOLOG) + Fsbg Testing Subcutaneous Q6H Stopped at 10/12/201100 NaCl 0.9% (NS) IV infusion 1,000 mL 1,000 mL Intravenous CONTINUOUS 999 mL/hr at 10/12/19 0538 1,000 mL at 10/12/19 0538 REVIEW OF SYSTEMS Reviewed previous ROS from history and physical dated 10/12/19 and there are no changes. HISTORIES Past Medical History: Diagnosis Date Calculus of kidney Diabetes mellitus Esophageal reflux Herpes zoster without mention of complication Unspecified essential hypertension Past Surgical History: Procedure Laterality Date PARTIAL PARATHYROIDECTOMY 06/07/2007 Rt REMOVAL OF KIDNEY STONE 06/28/2006 STENT PLACEMENT (SHX) Cardiac Family History Problem Relation Age of Onset Stroke Father Cancer Sister Breast Breast Cancer Sister Social History Socioeconomic History Marital status: Spouse name: Not on file Number of children: Not on file Years of education: Not on file Highest education level: Not on file Occupational History Not on file Social Needs Financial resource strain: Not on file Food insecurity Worry: Not on file Inability: Not on file Transportation needs Medical: Not on file Non-medical: Not on file Tobacco Use Smoking status: Never Smoker Smokeless tobacco: Never Used Substance and Sexual Activity Alcohol use: Yes Alcohol/week: 0.8 standard drinks Types: 1 Standard drinks or equivalent per week Drug use: No Sexual activity: Never Lifestyle Physical activity Days per week: Not on file Minutes per session: Not on file Stress: Not on file Relationships Social connections Talks on phone: Not on file Gets together: Not on file Attends faith service: Not on file Active member of club or organization: Not on file Attends meetings of clubs or organizations: Not on file Relationship status: Not on file Intimate partner violence Fear of current or ex partner: Not on file Emotionally abused: Not on file Physically abused: Not on file Forced sexual activity: Not on file Other Topics Concern Not on file Social History Narrative . Lives in [place] with and son PHYSICAL EXAM (-)=Negative,(+)=Positive Vitals: 10/12/19 0241 10/12/19 0452 10/12/19 0749 10/12/19 1100 BP: (!) 168/72 113/61 138/62 (!) 140/75 Pulse: 67 60 68 Resp: 18 16 18 18 Temp: 36.4 C (97.6 F) 36 C (96.8 F) 36.4 C (97.5 F) 36.4 C (97.5 F) TempSrc: Temporal Artery Oral Oral SpO2: 100% 98% 98% 96% Weight: 62 kg (136 lb 9.6 oz) Height: General: alert and oriented x 3, no apparent distress HEENT: pupils equal, round, reactive to light , extraocular movements intact Chest: no chest wall tenderness Respiratory: clear to auscultation bilaterally Cardio: regular rate and rhythm Abdomen: soft and ND, mild tenderness at epigaster Extremities: no clubbing, cyanosis, or edema Skin: no rashes, jaundice Neurologic: no focal deficits, alert and oriented x 3 Back/Spine: back straight, no defects LABORATORY Results for PRAVEEN REDDY V ( ) as of 10/12/2019 14:56 Ref. Range 10/11/2019 20:52 PROTIME Latest Ref Range: 12.0 - 14.7 Seconds 12.0 PT INR Latest Ref Range: 0.9 WBC x10^3 Latest Ref Range: 4.30 - 11.10 10*3/L 5.82 RBC x10^6 Latest Ref Range: 3.93 - 5.25 10*6/L 4.31 HGB Latest Ref Range: 11.6 - 15.0 g/dL 12.5 HCT Latest Ref Range: 35.7 - 45.2 % 37.6 MCV Latest Ref Range: 80.6 - 95.5 fL 87.2 MCH Latest Ref Range: 25.9 - 32.8 pg 29.0 MCHC Latest Ref Range: 31.6 - 35.1 g/dL 33.2 RDW-SD Latest Ref Range: 39.0 - 49.9 fL 40.9 RDW-CV Latest Ref Range: 12.0 - 15.5 % 12.9 PLT x10^3 Latest Ref Range: 166 - 358 10*3/L 275 MPV Latest Ref Range: 9.5 - 12.9 fL 10.2 NRBC /100 WBC Latest Ref Range: 0.0 - 10.0 /100 WBCs 0.0 NRBC x10^3 Latest Units: 10*3/L <0.01 GRAN MAT (NEUT) % Latest Units: % 46.5 IMM GRAN % Latest Units: % 0.50 LYMPH% Latest Units: % 38.7 MONO % Latest Units: % 9.3 EOS % Latest Units: % 4.1 BASO % Latest Units: % 0.9 GRAN MAT x10^3(ANC) Latest Ref Range: 1.88 - 7.09 10*3/uL 2.71 IMM GRAN x10^3 Latest Ref Range: 0.00 - 0.06 10*3/uL 0.03 LYMPH x10^3 Latest Ref Range: 1.32 - 3.29 10*3/uL 2.25 MONO x10^3 Latest Ref Range: 0.33 - 0.92 10*3/uL 0.54 EOS x10^3 Latest Ref Range: 0.03 - 0.39 10*3/uL 0.24 BASO x10^3 Latest Ref Range: 0.01 - 0.07 10*3/uL 0.05 NA Latest Ref Range: 135 - 145 mmol/L 134 (L) K Latest Ref Range: 3.5 - 5.0 mmol/L 4.4 CL Latest Ref Range: 98 - 108 mmol/L 100 CO2 TOTAL Latest Ref Range: 23 - 31 mmol/L 24 AGAP Latest Ref Range: 2 - 16 10 BUN Latest Ref Range: 7 - 23 mg/dL 28 (H) GLUCOSE Latest Ref Range: 70 - 110 mg/dL 253 (H) CREATININE Latest Ref Range: 0.50 - 1.04 mg/dL 0.88 eGFR CALCULATION (non ) Latest Units: mL/min/1.73m2 63.2 eGFR CALCULATION () Latest Units: mL/min/1.73m2 76.6 TOTAL BILI Latest Ref Range: 0.1 - 1.1 mg/dL 0.2 CALCIUM Latest Ref Range: 8.6 - 10.6 mg/dL 10.5 T PROTEIN Latest Ref Range: 6.3 - 8.2 g/dL 7.8 ALBUMIN Latest Ref Range: 3.5 - 5.0 g/dL 4.5 TROPONIN I Latest Ref Range: <=0.034 ng/mL <0.012 NT-proBNP Latest Ref Range: <=125 pg/mL 115 LIPASE Latest Ref Range: 0 - 220 U/L 4,504 (H) ALK PHOS Latest Ref Range: 34 - 122 U/L 60 ALTv Latest Ref Range: 5 - 35 U/L 19 AST(SGOT) Latest Ref Range: 13 - 40 U/L 22 RADIOLOGY PROCEDURE: CT ANGIO CHEST WITH CONTRAST - PE PROTOCOL CLINICAL INDICATION: Chest pain. COMPARISON: None. TECHNIQUE: Helical CT was performed and reconstructed at 1.25 mm slice thickness from lung base to apices after the administration of intravenous contrast, without complication. 3D axial MIPS and coronal MPR images were generated under radiologist supervision, and reviewed to further define anatomy and possible pathology. Display field of view: 34 cm. FINDINGS: PULMONARY ARTERIES: Enhancement is adequate, and there is no acute or chronic pulmonary embolism. CHEST: Lower neck/thyroid: Unremarkable. Lungs: A 0.7 cm groundglass nodule within the left upper lobe (12:53). A 0.8 cm groundglass nodule within the right upper lobe (12:54).. Central airway: Unremarkable. Pleura: No pleural effusion, thickening or pneumothorax. Thoracic aorta and great vessels: Bovine arch anatomy. Minimal calcified and noncalcified atherosclerosis of the aortic arch and thoracic aorta. Circumferential atherosclerotic plaque at the origin of left subclavian artery without significant luminal narrowing. No dissection or aneurysm. Heart and pericardium: Mild coronary artery calcifications. Calcifications of the aortic root. Unremarkable cardiac morphology and pericardium. Lymph nodes: No enlarged thoracic lymph nodes. Mediastinum: Unremarkable. Thoracic spine and chest wall: Mild Spondylosis. Normal thoracic vertebral body heights. Left shoulder osteoarthrosis. Visualized upper abdomen: Please refer to the concurrently obtained, separately dictated, CT abdomen/pelvis report for detailed intra-abdominal findings. . IMPRESSION 1. No evidence of a pulmonary embolism to the level of the subsegmental branches. No dissection or aneurysm. 2. A 0.7 cm left upper lobe and a 0.8 cm right upper lobe groundglass nodules may be related to an infectious/inflammatory process. Neoplastic process is not ruled out. A follow up CT thorax in 6 months is recommended. EXAM: CT ABDOMEN AND PELVIS WITH CONTRAST HISTORY: Epigastric pain. Concern for abdominal infection. COMPARISON: None. TECHNIQUE AND FINDINGS: Contiguous axial imaging from the level of the lung bases through the proximal femurs was performed after the uncomplicated administration of intravenous contrast and oral Omnipaque contrast. Coronal and sagittal reconstructions were obtained. Auto mA and/or iterative reconstruction were used to reduce radiation dose. FINDINGS: LOWER THORAX: Please refer to the concurrently obtained, separately dictated, CT thorax report for detailed intrathoracic findings. LIVER: No focal hepatic lesions. [id number] contour. GALLBLADDER AND BILIARY TREE: Partially decompressed gallbladder containing cholelithiasis. No pericholecystic inflammatory change or free fluid. No biliary ductal dilation. SPLEEN: No splenomegaly. Minimal fullness of the pancreatic head without discernible pancreatic or peripancreatic inflammatory change or stranding. No discernible pancreatic mass. PANCREAS: No ductal dilation or masses. ADRENAL GLANDS: No adrenal nodules. KIDNEYS: 2.2 cm right lower renal pole hypoattenuating lesion within the enhancing septation represents a Bosniak 2F lesion (27:71). Suspected 9 mm right lower renal pole nonobstructive calculus (evaluation is limited due to contrast excreted within the collecting system). Bilateral cortical scarring most prominent within the right lower renal pole. Pattern of scarring is suggestive of prior percutaneous nephrostomy tube. Few bilateral sub-5 mm vertical hypoattenuating lesions are too small to characterize. No hydronephrosis. PERITONEUM AND RETROPERITONEUM: No free air or fluid. LYMPH NODES: No lymphadenopathy. GI TRACT: No dilation or wall thickening. Normal appendix (27:103). Small sliding-type hiatal hernia. PELVIS/BLADDER: The uterus within normal limits. Unremarkable left ovary. 1 cm right ovarian dominant follicle. The urinary bladder is mildly to moderately distended and contains opacified ureteral jets. Unremarkable urinary bladder horta. VESSELS: Background of moderate calcified and noncalcified aortoiliac atherosclerosis. A short segment of infrarenal abdominal aorta demonstrates mild to moderate luminal stenosis secondary to noncalcified atherosclerotic plaque (most prominent at 27:72). No large vessel occlusion. No significant ostial stenosis Two calcified foci measuring 0.8 and 1.0 cm at the splenic hilum are concerning for splenic artery aneurysms (27:35). BONES AND SOFT TISSUES: No suspicious lytic or sclerotic bony lesions. Multilevel mild thoracolumbar spondylosis. Prominent concentric posterior disc osteophyte complex spanning T12-L3 results in mild to moderate spinal canal stenosis at these levels. IMPRESSION 1. Minimal fullness of the pancreatic head may be related to subclinical inflammation. However, there is no discernible pancreatic or peripancreatic inflammatory change or stranding despite lipase elevations. No drainable retroperitoneal collections. 2. Cholelithiasis without CT findings indicative of acute cholecystitis. 3. Nonobstructive right nephrolithiasis. 4. Noncalcified atherosclerotic plaque affecting a short segment of infrarenal abdominal aorta results in mild to moderate luminal stenosis. No dissection, large vessel occlusion, or significant ostial stenosis. 5. Mild degenerative changes of the thoracolumbar spine with multifocal disc osteophyte complex spanning T12-L3 with resultant mild to moderate spinal canal stenoses at these levels. Preliminary Report Dictated by Resident: Dayana Combs US HISTORY: Gallstones, pancreatitis. TECHNIQUE: Gallbladder is evaluated in multiple planes with the patient in different positions. Color imaging is utilized. FINDINGS: Comparison is made with yesterday night CT studies. Gallbladder is of normal size and shape with mild diffuse thickening of the horta. Single mobile gallstone of approximately 6.6 mm size noted in the dependent portion of the gallbladder lumen. Focal bright echo is seen in the anterior wall near the fundus which could be a small 2 mm polyp. No biliary sludge or crystals seen. No free fluid detected in pericholecystic space. Common hepatic duct is 4.1 mm. The pancreas is completely obscured due to gas. Hepatic and portal venous system appeared patent. CONCLUSION: Chronic cholecystitis with single mobile gallstone. ASSESSMENT Diagnosis- Praveen Reddy is a 74 year old female with PMH DM, HTN, HLD, CAD s/p PCI stenting with last PCI 4-5 years ago who presents with acute gallstone pancreatitis Our recommendations are Continue medical management for acute pancreatitis No Abx is indicated at this time We will proceed with lap choly tomorrow Keep patient NPO past midnight Will discuss her with cardiology for cardiac clearance. Discussed patient with Dr. Patten. Cheryl Carmen MD General Surgery. PGY2 Associated attestation - Natalia Patten MD - 10/13/2019 8:33 AM CDTAttending Attestation: I personally evaluated and examined the patient on 10/12/[address] Carmen's consultation note as written. I actively participated in the decision- making process. Please see the resident's note for additional details. 74 YEAR- OLD F with PMH significant for DM and CAD s/p NV X3 and stent placement (last intervention greater than 1 year ago) on Plavix and aspirin (last dose of Plavix 2 days ago) who presented to the ED with a c/o chest and epigastric pain radiating to the back and associated with nausea. Initial work up demonstrated elevated normal LFT's and lipase to 4504. CT scan demonstrated fullness of the pancreatic head. Patient seen by Dr Coppola, cardiac work up negative for cardiac origin of pain. On exam patient is mildly tender in the epigastrum. Lipase now 500. Discussed treatment options including laparoscopic cholecystectomy with intraoperative cholangiogram. Patient wishes to proceed with surgery. Risks, benefits, alternatives of laparoscopic cholecystectomy with intraoperative cholangiogram werediscussed with the patient; all questions answered; informed consent obtained. Natalia Patten M.D. 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 Pain n is localized to the epigastrium. Pain is rated at 10/10 at maximal intensity but currently a 5/10. Pain is described as "ache". No known aggravating or relieving factors. Has had pain intermittently X 2 days. + nausea. No vomiting. No palpitations. No diaphoresis. Pt has had 3 cardiac stents placed. Last stent was placed 11/06/[address] Mera in [place]. Pt reports complete compliance with her Plavix Past Medical History / Immunizations Past Medical History: Diagnosis Date Calculus of kidney Diabetes mellitus Esophageal reflux Herpes zoster without mention of complication Unspecified essential hypertension Tetanus received in last 5 years: Yes Past Surgical History Past Surgical History: Procedure Laterality Date PARTIAL PARATHYROIDECTOMY 06/07/2007 Rt REMOVAL OF KIDNEY STONE 06/28/2006 STENT PLACEMENT (SHX) Cardiac Allergies No Known Allergies Social History Tobacco Use Never smoked or used smokeless tobacco. Alcohol Use Yes; 0.8 standard drinks of alcohol per week; 1 Standard drinks or equivalent. Drug Use No. Sexual Activity Not sexually active. Review of Systems Review of Systems Physical Exam BP (!) 145/62 | Pulse 58 | Temp 36.9 C (98.4 F) (Oral) | Resp 16 | Ht 1.549 m (5' 1") | Wt 62.1 kg (137 lb) | LMP 03/08/1987 | SpO2 96% | BMI 25.89 kg/m Physical Exam Labs Recent Results (from the past 24 hour(s)) CBC WITH DIFF Collection Time: 10/11/19 8:52 PM Result Value Ref Range WBC 5.82 4.30 - 11.10 10*3/L RBC 4.31 3.93 - 5.25 10*6/L HGB 12.5 11.6 - 15.0 g/dL HCT 37.6 35.7 - 45.2 % MCV 87.2 80.6 - 95.5 fL MCH 29.0 25.9 - 32.8 pg MCHC 33.2 31.6 - 35.1 g/dL RDW-SD 40.9 39.0 - 49.9 fL RDW-CV 12.9 12.0 - 15.5 % PLT 275 166 - 358 10*3/L MPV 10.2 9.5 - 12.9 fL NRBC/100 WBC 0.0 0.0 - 10.0 /100 WBCs NRBC x10^3 <0.01 10*3/L GRAN MAT (NEUT) % 46.5 % IMM GRAN % 0.50 % LYMPH % 38.7 % MONO % 9.3 % EOS % 4.1 % BASO % 0.9 % GRAN MAT x10^3(ANC) 2.71 1.88 - 7.09 10*3/uL IMM GRAN x10^3 0.03 0.00 - 0.06 10*3/uL LYMPH x10^3 2.25 1.32 - 3.29 10*3/uL MONO x10^3 0.54 0.33 - 0.92 10*3/uL EOS x10^3 0.24 0.03 - 0.39 10*3/uL BASO x10^3 0.05 0.01 - 0.07 10*3/uL COMP. METABOLIC PANEL (87769) Collection Time: 10/11/19 8:52 PM Result Value Ref Range NA 134 (L) 135 - 145 mmol/L K 4.4 3.5 - 5.0 mmol/L CL 100 98 - 108 mmol/L CO2 TOTAL 24 23 - 31 mmol/L AGAP 10 2 - 16 BUN 28 (H) 7 - 23 mg/dL GLUCOSE 253 (H) 70 - 110 mg/dL CREATININE 0.88 0.50 - 1.04 mg/dL TOTAL BILI 0.2 0.1 - 1.1 mg/dL CALCIUM 10.5 8.6 - 10.6 mg/dL T PROTEIN 7.8 6.3 - 8.2 g/dL ALBUMIN 4.5 3.5 - 5.0 g/dL ALK PHOS 60 34 - 122 U/L ALTv 19 5 - 35 U/L AST(SGOT) 22 13 - 40 U/L eGFR Calculation (Non-) 63.2 mL/min/1.73m2 eGFR Calculation () 76.6 mL/min/1.73m2 LIPASE Collection Time: 10/11/19 8:52 PM Result Value Ref Range LIPASE 4,504 (H) 0 - 220 U/L TROPONIN I Collection Time: 10/11/19 8:52 PM Result Value Ref Range TROPONIN I <0.012 <=0.034 ng/mL N-TERMINAL PRO-BNP Collection Time: 10/11/19 8:52 PM Result Value Ref Range NT-proBNP 115 <=125 pg/mL PROTHROMBIN TIME / INR Collection Time: 10/11/19 8:52 PM Result Value Ref Range PROTIME PATIENT 12.0 12.0 - 14.7 Seconds INR 0.9 COVID-19 (ID NOW RAPID TESTING) Collection Time: 10/11/19 8:55 PM Specimen: NASOPHARYNGEAL SWAB Result Value Ref Range SARS-CoV-2 Rapid ID NOW Not Detected Not Detected Imaging Hospital Encounter on 10/11/19 XR CHEST 1 VW COVID Narrative PROCEDURE: CHEST, SINGLE VIEW . CLINICAL INDICATION: chest pain COMPARISON: None FINDINGS: The lungs are clear. No pleural effusion or pneumothorax is seen. The aorta is tortuous with a mildly calcified aortic arch. The heart is normal in size. No acute bony abnormality. Surgical clips project over the right neck. Impression No acute intrathoracic abnormality, specifically no detectable radiographic findings to suggest COVID-19 pneumonia. Disclaimer: Generally, the findings on chest imaging in COVID-19 are not specific, and overlap with other infections, including influenza, H1N1, SARS and MERS. According to the Centers for Disease Control (CDC) and recent statement of the [employer], viral testing remains the only specific method of diagnosis. Confirmation with the viral test is required, even if radiologic findings are suggestive of COVID-[address]. Preliminary Report Dictated by Resident: Kya Martin MD., have reviewed this study and agree with the above report. CT ABDOMEN PELVIS W CONTRAST Narrative EXAM: CT ABDOMEN AND PELVIS WITH CONTRAST HISTORY: Epigastric pain. Concern for abdominal infection. COMPARISON: None. TECHNIQUE AND FINDINGS: Contiguous axial imaging from the level of the lung bases through the proximal femurs was performed after the uncomplicated administration of intravenous contrast and oral Omnipaque contrast. Coronal and sagittal reconstructions were obtained. Auto mA and/or iterative reconstruction were used to reduce radiation dose. FINDINGS: LOWER THORAX: Please refer to the concurrently obtained, separately dictated, CT thorax report for detailed intrathoracic findings. LIVER: No focal hepatic lesions. Normal contour. GALLBLADDER AND BILIARY TREE: Cholelithiasis. Decompressed gallbladder with resultant circumferential mural thickening. No biliary ductal dilation. SPLEEN: No splenomegaly. Calcified vessels at the splenic hilum. PANCREAS: No ductal dilation or masses. ADRENAL GLANDS: No adrenal nodules. KIDNEYS: A 2 cm right inferior pole renal sinus cyst contains a 0.9 cm renal calculus. No hydronephrosis, stones, or masses. PERITONEUM AND RETROPERITONEUM: No free air or fluid. LYMPH NODES: No lymphadenopathy. GI TRACT: No dilation or wall thickening. Normal appendix (27:103). PELVIS/BLADDER: The uterus within normal limits. Unremarkable left ovary. 1 cm right ovarian dominant follicle. The urinary bladder is mildly to moderately distended and contains opacified ureteral jets. Unremarkable urinary bladder horta. VESSELS: Background of moderate calcified and noncalcified aortoiliac atherosclerosis. A short segment of infrarenal abdominal aorta demonstrates mild to moderate luminal stenosis secondary to noncalcified atherosclerotic plaque (most prominent at 27:72). No large vessel occlusion. No significant ostial stenosis BONES AND SOFT TISSUES: No suspicious lytic or sclerotic bony lesions. Multilevel mild thoracolumbar spondylosis. Prominent calcified concentric posterior disc bulges spanning T12-L3 results in mild to moderate spinal canal stenosis at these levels. Impression 1. No acute findings within the abdomen and pelvis. Normal appendix. 2. Cholelithiasis without CT findings indicative of acute cholecystitis. Nonobstructive right nephrolithiasis. 3. Noncalcified atherosclerotic plaque affecting a short segment of infrarenal abdominal aorta results in mild to moderate luminal stenosis. No dissection, large vessel occlusion, or significant ostial stenosis. 4. Mild degenerative changes of the thoracolumbar spine with multifocal disc bulges spanning T12-L3 with resultant mild to moderate spinal canal stenoses at these levels. Preliminary Report Dictated by Resident: Dayana Mccord Ikwuagwu CT ANGIOGRAM CHEST Narrative PROCEDURE: CT ANGIO CHEST WITH CONTRAST - PE PROTOCOL CLINICAL INDICATION: Chest pain. COMPARISON: None. TECHNIQUE: Helical CT was performed and reconstructed at 1.25 mm slice thickness from lung base to apices after the administration of intravenous contrast, without complication. 3D axial MIPS and coronal MPR images were generated under radiologist supervision, and reviewed to further define anatomy and possible pathology. Display field of view: 34 cm. FINDINGS: PULMONARY ARTERIES: Enhancement is adequate, and there is no acute or chronic pulmonary embolism. CHEST: Lower neck/thyroid: Unremarkable. Lungs: A 0.8 cm groundglass nodule within the left upper lobe (12:53). A 0.9 cm groundglass nodule within the right upper lobe (12:54).. Central airway: Unremarkable. Pleura: No pleural effusion, thickening or pneumothorax. Thoracic aorta and great vessels: Bovine arch anatomy. Minimal calcified and noncalcified atherosclerosis of the aortic arch and thoracic aorta. No dissection or aneurysm. Heart and pericardium: Mild coronary artery calcifications. Calcifications of the aortic root. Unremarkable cardiac morphology and pericardium. Lymph nodes: No enlarged thoracic lymph nodes. Mediastinum: Unremarkable. Thoracic spine and chest wall: Mild Spondylosis. Normal thoracic vertebral body heights. Left shoulder osteoarthrosis. Visualized upper abdomen: Please refer to the concurrently obtained, separately dictated, CT abdomen/pelvis report for detailed intra-abdominal findings. . Impression 1. No evidence of a pulmonary embolism to the level of the subsegmental branches. No dissection or aneurysm. 2. A 0.8 cm left upper lobe and a 0.9 cm right upper lobe groundglass nodules may be related to an infectious/inflammatory process. Clinical correlation recommended. Preliminary Report Dictated by Resident: Dayana Mccord Ikwuagwu Orders and Treatments Orders Placed This Encounter Procedures XR CHEST [address] CHE[address] ABDOMEN PELVIS W CONTRAST COVID-19 (ID NOW RAPID TESTING) CBC WITH DIFF COMP. METABOLIC PANEL (15812) LIPASE TROPONIN I N-TERMINAL PRO-BNP PROTHROMBIN TIME / INR Orders Placed This Encounter Medications NaCl 0.9% (NS) IV infusion 1,000 mL iohexol (OMNIPAQUE 350 BULK-150 mL) injection 120 mL Procedures See ED Procedure Note Notes & MDM Patient was evaluated for an emergency medical condition related to Chest Pain . Differential diagnoses considered by presenting complaints but not limited to: Chest Pain (acute) Myocardial Infarction (acute) Pericarditis Pleurisy Pleuritis Pneumomediastinum Pneumonia Pneumothorax Pulmonary Edema Covid 19 Infection. Labs:were ordered, and resulted, any relevant abnormalities were considered. Imaging:Ordered, and resulted, any relevant abnormalities were considered. IV fluids: metabolic derangement (evidenced within the metabolic panel) Acute Pancreatitis Procedures:were not performed. EKG: interpreted by wv Sinus Rhythm Rate 78 Comparison with prior EKG: none available Rhythm Strip Interpretation: Normal Sinus Rhythm Pulse Oximetry room air 97%=Normal Assessment: History, physical exam findings, results of visit, differential diagnosis, medication regimens and plan of future care have been considered. Additional MDM may be found in the ED course. Differential diagnosis considered and final disposition made based on information gathered during evaluation and may not be completely ruled out or specifically listed. Vital signs were rechecked before final disposition and determined to be stable. Diagnosis ICD-10-CM ICD-9-CM 1. Acute pancreatitis without infection or necrosis, unspecified pancreatitis type K85.90 577.0 2. Chest pain, unspecified type R07.9 786.50 3. Uncontrolled type 2 diabetes mellitus with hyperglycemia E11.65 250.02 Disposition & Follow Up ED Disposition ED Disposition Condition Comment Admit - Inpatient Good Patients undergoing COVID-19 testing are cared for in a designated unit and care team. Is this patient being tested for COVID-19?: No Treatment Team: [facility] [[id number]] Primary reason for admission: Acute pancreatitis [577.0.ICD-9-CM] Secondary reas on for admission: Chest pain [131642] Is (or was) this a planned re-admission?: No My concerns are:: cardiac instability My concerns are:: pain management My concerns are:: lab monitoring My concerns are:: risk of mortality My concerns are:: ne ed for IV therapies My concerns are:: risk of morbidity The risks to the patient are: morbidity or mortality in the short term The risks to the patient are: high risk of medical event Expected length of stay: At least 2 midnights Expected discha rge disposition: Home Self Care Certification: I certify the inpatient services are medically necessary and in accordance with Medicare regulations. Patient's Medications START taking these medications No medications on file CONTINUE taking these medications which have NOT CHANGED ACETAMINOPHEN-CODEINE 300-30 MG TABLET Take 1 tablet by mouth every 4 (four) hours as needed forPain (scale 4-6). CLOPIDOGREL BISULFATE (PLAVIX ORAL) Take by mouth. EMPAGLIFLOZIN (JARDIANCE ORAL) Take by mouth. INSULIN LISPRO (HUMALOG SC) inject under the skin. LISINOPRIL 10 MG ORAL TAB None Entered METFORMIN HCL (METFORMIN ORAL) Take 500 mg by mouth 2 (two) times daily. METHOCARBAMOL (ROBAXIN) 500 MG TABLET Take 1 tablet by mouth 4 (four) times daily. PANTOPRAZOLE SODIUM (PROTONIX ORAL) Take by mouth. START taking Modified Medications as Prescribed No medications on file STOP taking these medications No medications on file Frank Yanez MD 10/11/2019 8:39 PM ACTIVE COVID-19 PANDEMIC. documented in this encounter Miscellaneous Notes Care Plan - Abel Badillo RN - 10/14/2019 6:14 AM CDT Problem: Pain Goal: Control of pain at or below patient's documented comfort goal Outcome: Progressing as expected Goal: Reduction in pain sensation Outcome: Progressing as expected Problem: Glucose control Goal: Glucose level within specified parameters Outcome: Progressing as expected Operative Note - Cheryl Purcell MD - 10/13/2019 9:29 AM CDTGeneral Surgery Op Note Date of Surgery: 10/13/2019 Attending: Assist: Cheryl Carmen Anesthesia: GETA Procedure: Laparoscopic cholecystectomy and intraoperative cholangiography Preoperative diagnosis: Gallstone pancreatitis Postoperative diagnosis: Gallstone pancreatitis EBL: 20 cc Specimen: gallbladder, to pathology Indications:Praveen Reddy is a 74 year old female with gallstone pancreatitis. Decision was made toproceed with laparoscopic cholecystectomy with IOC today. Findings:Chronic cholecystitis and gallstone. Gallbladder was taken out without complication.IOCrevealed contrast going through the duodenum without filing defect in the biliary tree. Procedure: The patient was brought to the operating room and positioned supine with SCD boots. Following a time out procedure the patient underwent induction of general endotracheal anesthesia. The abdomen was prepped and draped in the usual sterile fashion with chloraprep. A Veress needle was introduced into the peritoneal cavity in the left upper quadrant at the midclavicular line. Proper placement was confirmed by aspirating air bubbles, easily infusing saline, and observing a rapid drop of themeniscus in the needle then pneumoperitoneum was established (15 mmHg ). After infiltrating local, a supraumbilical incision was made and an 5-mm optical trocar was insertedunder direct vision with the 5-mm,30-degree scope. We found no evidence for injury from the initial trocar placement. After infiltrating with local, a 12mm port was inserted in the epigastrium under direct visualization. Then 2 additional 5 mm ports were placed, one in the right upper quadrant anterior axillary line and one in the midclavicular line. The gallbladder was grasped and retracted cephalad. The infundibulum was grasped and the hook electrocautery/[place] used for dissection along the lateral and medial aspects of the gallbladder. This dissection was then carried around the peritoneum overlying the infundibulum, exposing the structures of the triangle of Calot. Again the hook cautery and [place] were used to dissect the triangle of Calot free of all areolar and fatty tissue until there was seen a single duct and the artery with 2 branches traveling toward the gallbladder with no additional tissue present back to the visible cystic plate. After achieving this critical view of safety, we used the 5 mm clip bridge design engineer to clip cysticductonthe specimen side. Cystic ductotomy was created using Endoshears where cholangiogram catheter was inserted and fixed in place with another clip. Intraoperative cholangiogram was performed revealing intact biliary tree without filling defect. Contrast was immediately going through the duodenum. After pulling out the catheter, the cystic duct was clipped3 timestoward the patient side and once on the specimen side. The tissue around the artery was dissected and 2 small branches were found going to the gallbladder.We used the 5 mm clip bridge design engineer to clip 2 small branchs that appeared to be cystic arteries twice on the patient's side once on the specimen side. Right hepatic artery was seen travelingbetween gallbladder and liver bed and protected. The Endoshears were used to divide the artery and duct. The hook cautery was then used to dissect the remainder of the gallbladder off the cystic plate. Prior to transecting the gallbladder off of the liver bed we inspected the gallbladder fossa and used the hook cautery to achieve perfect hemostasis. The operative bed was irrigated and aspirated until clear. We saw our clips which were in good position no evidence for bile or blood leaking. The gallbladder was then removed from the liver bed and placed into an Endo- Catch bag.The specimenwas removed through mon12ki epigastric port. The epigastric fascial incisionwas closed with 2 interrupted 0 Vicryl sutures using suture passer. Pneumoperitoneum evacuated and the 5-mm ports were removed, all the skin incisions were closed with 4-0 Monocryl.Steri-stripwas placed for dressingsand the patient was awakened extubated and brought to recovery room in stable condition. The sponge and instrument counts were correct at the end of the case. Dr. Patten was present and scrubbed in the whole case. Associated attestation - Natalia Patten MD - 10/14/2019 11:02 AM CDTAttending Attestation: I personally evaluated and examined the patient on 10/13/19 prior to surgery and agree with Dr. Carmen's operative note as written. Please see the resident's operative note for additional details. I was present and scrubbed during the entirety of the operative procedure. Findings at surgery included mild chronic cholecystitis, cholelithiasis, critical view of safety achieved, IOC negative for filling defects or obstruction. Natalia Patten M.D. 10/14/2019 11:00Nursing Note - Gwendolyn Lee RN - 10/13/2019 8:45 AM CDT Applied SCDs to ANTHONY lower extremities D Nurse Note - Elsa Martin RN - 10/12/2019 2:26 AM CDTReport given to Claudio ROUSE; no questions at end of report. ursing Note - Claudio Power RN - 10/12/2019 2:22 AM CDTAttempt to call report ER nurse to call me back with nursing report. D Nurse Note - Amita Lara RN - 10/12/2019 1:23 AM CDTSpoke with daughter Matilda, updated her on plan of care and admission status. D Nurse Note - Amita Lara RN - 10/11/2019 11:10 PM CDTUpdated patient's daughter Matilda of patient test results after obtaining permission from patient. D Nurse Note - Amita Lara RN - 10/11/2019 8:27 PM CDTCC: patient presents to the ER with complaints of chest pain, abdominal pain, and nausea. Patient states that symptoms began 2 days ago. PMHx: see history Tetanus: UTD Awake, alert, oriented, resp reg unlabored, skin warm and dry, color appropriate for race, moves allext without difficulty, amb without assistance. Appears in no distress. documented in this encounter Plan of Treatment Name Type Priority Associated Diagnoses Date/Ti me SURGICAL PATHOLOGY EXAM LAB STAT 09/2019 9:50 AM CDT Name Type Priority Associated Diagnoses Order S chedule CBC with Differential LAB Routine EVERY MORNING AT 0400 for 5 Occurrenc es starting 2019 until 0, 2 completed Basic Metabolic Panel (NA, LAB Routine E VERY MORNING AT 0400 K, CL, CO2, GLUCOSE, BUN, fo r 5 Occurrences CREATININE, CA) starting 09/2019 until 0, 1 completed SURGICAL PATHOLOGY EXAM LAB Routine Rele ase Upon Ordering for 1 Occurrenc es starting 2019 Health Maintenance Due Date Last Done Comments [...] LDL-C 10/10/2020 10/11/2019, 02/23/2005, 10/04/2004 CREATININE (SERUM) 10/12/2020 10/13/2019, 10/11/2019, 06/12/2012, Additional history exists documented as of this encounter Procedures Procedure Name Priority Date/Time Associated Diagnosis Comme nts POCT GLUCOSE Routine 10/14/2019 11:42 Results for this (AUTOMATED) AM CDT procedure are i n the results section. POCT GLUCOSE Routine 10/14/2019 8:17 Results for this (AUTOMATED) AM CDT procedure are i n the results section. CBC WITH DIFF Routine 10/14/2019 5:16 Results fo r this AM CDT procedure are i n the results section. BASIC METABOLIC PANEL Routine 10/14/2019 5:16 Re sults for this (NA, K, CL, CO2, AM CDT procedure a re in GLUCOSE, BUN, the results CREATININE, CA) section. HEPATIC FUNCTION Routine 10/14/2019 5:16 Results for this PANEL ([id number]) AM CDT procedure are in (ALB,T.PRO,BILI the results T,BU/BC,ALT,AST,ALK section. PHOS) LIPASE Routine 10/14/2019 5:16 Results for this AM CDT procedure are i n the results section. POCT GLUCOSE Routine 10/14/2019 1:20 Results for this (AUTOMATED) AM CDT procedure are i n the results section. POCT GLUCOSE Routine 10/13/2019 8:31 Results for this (AUTOMATED) PM CDT procedure are i n the results section. POCT GLUCOSE Routine 10/13/2019 4:42 Results for this (AUTOMATED) PM CDT procedure are i n the results section. FL TIME OR Routine 10/13/2019 10:15 Calculus of Results for this (NON-REPORTABLE) AM CDT gallbladder with procedu re are in acute cholecystitis the resu lts without obstruction section. POCT GLUCOSE Routine 10/13/2019 8:01 Results for this (AUTOMATED) AM CDT procedure are i n the results section. CBC WITH DIFF Routine 10/13/2019 4:59 Results fo r this AM CDT procedure are i n the results section. COMP. METABOLIC PANEL Routine 10/13/2019 4:59 Re sults for this ([id number]) AM CDT procedure are i n the results section. LIPASE Routine 10/13/2019 4:59 Results for this AM CDT procedure are i n the results section. POCT GLUCOSE Routine 10/12/2019 5:46 Results for this (AUTOMATED) PM CDT procedure are i n the results section. POCT GLUCOSE Routine 10/12/2019 3:33 Results for this (AUTOMATED) PM CDT procedure are i n the results section. POCT GLUCOSE Routine 10/12/2019 11:17 Results for this (AUTOMATED) AM CDT procedure are i n the results section. US GALL BLADDER Routine 10/12/2019 9:06 Acute pancreatitis Re sults for this AM CDT without infection or procedu re are in necrosis, unspecified the re sults pancreatitis type section. ECHO ROUTINE Routine 10/12/2019 8:36 Chest pain, W/DOPPLER COLOR AM CDT unspecified type GLYCOSYLATED Routine 10/12/2019 5:37 Results for this HEMOGLOBIN (A1C) AM CDT procedure a re in the results section. TROPONIN I Routine 10/12/2019 5:37 Results for this AM CDT procedure are i n the results section. LIPASE Routine 10/12/2019 5:37 Results for this AM CDT procedure are i n the results section. POCT GLUCOSE Routine 10/12/2019 5:31 Results for this (AUTOMATED) AM CDT procedure are i n the results section. CT ABDOMEN PELVIS W STAT 10/11/2019 11:50 Chest pain, Resu lts for this CONTRAST PM CDT unspecified type procedure a re in the results section. CT ANGIOGRAM CHEST STAT 10/11/2019 11:50 Chest pain, Resul ts for this PM CDT unspecified type procedure a re in the results section. XR CHEST 1 VW COVID STAT 10/11/2019 8:59 Chest pain, Resu lts for this PM CDT unspecified type procedure a re in the results section. COVID-19 (ID NOW STAT 10/11/2019 8:55 Chest pain, Results for this RAPID TESTING) PM CDT unspecified type procedure are in the results section. LOW-DENSITY Routine 10/11/2019 8:52 Results for this LIPOPROTEIN, DIRECT PM CDT procedur e are in the results section. N-TERMINAL PRO-BNP STAT 10/11/2019 8:52 Chest pain, Resul ts for this PM CDT unspecified type procedure a re in the results section. PROTHROMBIN TIME / STAT 10/11/2019 8:52 Chest pain, Resul ts for this INR PM CDT unspecified type procedure a re in the results section. CBC WITH DIFF STAT 10/11/2019 8:52 Chest pain, Results fo r this PM CDT unspecified type procedure a re in the results section. LIPID PANEL Add-on 10/11/2019 8:52 Results for this ([id number])(TOTAL PM CDT procedure are in CHOLESTEROL, the results TRIGLYCERIDES, HDL) section. COMP. METABOLIC PANEL STAT 10/11/2019 8:52 Chest pain, Re sults for this ([id number]) PM CDT unspecified type procedure a re in the results section. TROPONIN I STAT 10/11/2019 8:52 Chest pain, Results for this PM CDT unspecified type procedure a re in the results section. LIPASE STAT 10/11/2019 8:52 Chest pain, Results for this PM CDT unspecified type procedure a re in the results section. EKG-12 LEAD Routine 10/11/2019 8:41 PM CDT EKG-12 LEAD Routine 10/11/2019 8:39 PM CDT NOTICE OF PRIVACY Routine 10/11/2019 8:20 PRACTICES PM CDT NOTICE OF PRIVACY Routine 10/11/2019 8:20 PRACTICES PM CDT documented in this encounter Results POCT GLUCOSE (AUTOMATED) (10/14/2019 11:42 AM CDT) Pathologist Sig nature POCT GLU 331 (H) 70 - 110 mg/dL [facility] Specimen Blood Performing Organization Address City/[facility]ode Phone Number [facility] CLIA: [id number] [place] [id number] LABORATORY [address] POCT GLUCOSE (AUTOMATED) (10/14/2019 8:17 AM CDT) Pathologist Sig nature POCT GLU 237 (H) 70 - 110 mg/dL [facility] Specimen Blood Performing Organization Address City/[facility]ome Phone Number [facility] CLIA: [id number] [place] [address] LABORATORY [address] [facility] HEPATIC FUNCTION PANEL ([id number]) (ALB,T.PRO,BILI T,BU/BC,ALT,AST,ALK PHOS) (10/14/2019 5:16 AM CDT) Pathologist Sig nature TOTAL BILI 0.4 0.1 - 1.1 mg/dL [facility] BILI UNCON 0.5 0.1 - 1.1 mg/dL [facility] BILI CONJ 0.0 0.0 - 0.3 mg/dL [facility] T PROTEIN 7.3 6.3 - 8.2 g/dL [facility] ALBUMIN 4.1 3.5 - 5.0 g/dL [facility] ALK PHOS 46 34 - 122 U/L [facility] ALTv 45 (H) 5 - 35 U/L [facility] AST(SGOT) 43 (H) 13 - 40 U/L [facility] Specimen Blood - ARM, LEFT Performing Organization Address [facility] Phone Number [facility] CLIA: [id number] [place] [address] [address] LIPASE (10/14/2019 5:16 AM CDT) Pathologist [facility] LIPASE 158 0 - 220 U/L [facility] Specimen Blood - ARM, LEFT Performing Organization Address [facility] Phone Number [facility] CLIA: [id number] [place] [address] LABORATORY [address] [facility] Basic Metabolic Panel (NA, K, CL, CO2, GLUCOSE, BUN, CREATININE, CA) (10/14/2019 5:16 AM CDT) Pathologist [facility] NA 135 135 - 145 [facility] mmol/L [facility] K 4.0 3.5 - 5.0 [facility] mmol/L [facility] CL 102 98 - 108 mmol/L [facility] CO2 TOTAL 26 23 - 31 mmol/L [facility] AGAP 7 2 - 16 [facility] BUN 19 7 - 23 mg/dL [facility] GLUCOSE 269 (H) 70 - 110 mg/dL [facility] CREATININE 0.70 0.50 - 1.04 [facility] mg/dL [facility] CALCIUM 9.4 8.6 - 10.6 [facility] mg/dL [facility] eGFR Calculation 82.3 mL/min/1.73m2 [facility] (Non[facility] LABORATORY [place]) eGFR Calculation 99.7 mL/min/1.73m2 [facility] () [facility] Specimen Blood - ARM, LEFT Narrative Performed At [facility] [place] of Glomerular Filtration Rate (GFR) [facility] and Staging of Kidney Disease* + + +- + | GFR (mL/min/1.73 m2) | With Kidney Damage | Without Kidney Damage + + +- + | >90 | Stage one | Normal + + +- + | 60-89 | Stage two | Decreased GFR + + +- + | 30-59 | Stage three | Stage three + + +- + | 15-29 | Stage four | Stage four + + +- + | <15 (or dialysis) | Stage five | Stage five + + +- + *Each stage assumes the associated GFR level has been in effect for at least three months. Stages 1 to 5, with or without kidney disease, indicate chronic kidney disease. Notes: Determination of stages one and two (with eGFR >59mL/min/1.73 m2) requires estimation of kidney damage for at least three months as defined by structural or functional abnormalities of the kidney, manifested by either: Pathological abnormalities or Markers of kidney damage (including abnormalities in the composition of the blood or urine or abnormalities in imaging tests). Performing Organization Address City/State/Zipcode Phone Number [facility] CLIA: [id number] [place] [address] CBC with Differential (10/14/2019 5:16 AM CDT) [facility] WBC 7.77 4.30 - 11.10 [facility] 10*3/L [facility] RBC 3.98 3.93 - 5.25 [facility] 10*6/L [facility] HGB 11.7 11.6 - 15.0 [facility] g/dL [facility] HCT 34.3 (L) 35.7 - 45.2 % [facility] MCV 86.2 80.6 - 95.5 fL [facility] MCH 29.4 25.9 - 32.8 pg [facility] MCHC 34.1 31.6 - 35.1 [facility] g/dL [facility] RDW-SD 41.1 39.0 - 49.9 fL [facility] RDW-CV 13.1 12.0 - 15.5 % [facility] PLT 263 166 - 358 [facility] 10*3/L [facility] MPV 10.7 9.5 - 12.9 fL [facility] NRBC/100 WBC 0.0 0.0 - 10.0 /100 [facility] WBCs [facility] NRBC x10^3 <0.01 10*3/L [facility] GRAN MAT (NEUT) % 74.5 % [facility] IMM GRAN % 0.30 % [facility] LYMPH % 16.3 % [facility] MONO % 8.8 % [facility] EOS % 0.0 % [facility] BASO % 0.1 % [facility] GRAN MAT x10^3(ANC) 5.79 1.88 - 7.09 [facility] 10*3/uL [facility] IMM GRAN x10^3 <0.03 0.00 - 0.06 [facility] 10*3/uL [facility] LYMPH x10^3 1.27 (L) 1.32 - 3.29 [facility] 10*3/uL [facility] MONO x10^3 0.68 0.33 - 0.92 [facility] 10*3/uL [facility] EOS x10^3 <0.03 (L) 0.03 - 0.39 [facility] 10*3/uL [facility] BASO x10^3 <0.03 0.01 - 0.07 [place] [address]*3/uL [facility] Specimen Blood - ARM, LEFT Performing Organization Address City/State/Zipcode Phone Number [facility] CLIA: [id number] [place] [address] POCT GLUCOSE (AUTOMATED) (10/14/2019 1:20 AM CDT) [facility] nature POCT GLU 328 (H) 70 - 110 mg/dL [facility] Specimen Blood Performing Organization Address City/[facility] Phone Number [facility] CLIA: [id number] [place] [address] POCT GLUCOSE (AUTOMATED) (10/13/2019 8:31 PM CDT) Pathologist Sig nature POCT GLU 424 (H)Comment: 70 - 110 mg/dL [facility] Notified Provider HOSPITAL [facility] Specimen Blood Performing Organization Address [facility] Phone Number [facility] CLIA: [id number] [place] [address] POCT GLUCOSE (AUTOMATED) (10/13/2019 4:42 PM CDT) Pathologist Sig nature POCT GLU 282 (H) 70 - 110 mg/dL [facility] Specimen Blood Performing Organization Address [facility] Phone Number [facility] CLIA: [id number] [place] [address] FL TIME OR (NON-REPORTABLE) (10/13/2019 10:15 AM CDT) Specimen Narrative Performed At These images do not require a Radiology diagnostic rep ort. PACS Performing Organization Address [facility] Phone Number PACS POCT GLUCOSE (AUTOMATED) (10/13/2019 8:01 AM CDT) Pathologist Sig nature POCT GLU 167 (H) 70 - 110 mg/dL [facility] Specimen Blood Performing Organization Address [facility] Phone Number [facility] CLIA: [id number] [place] [address] LIPASE (10/13/2019 4:59 AM CDT) Pathologist Sig nature LIPASE 130 0 - 220 U/L [facility] Specimen Blood - LINE, VENOUS Performing Organization Address [facility] Phone Number [facility] CLIA: [id number] [place] [address] COMP. METABOLIC PANEL ([id number]) (10/13/2019 4:59 AM CDT) Pathologist Sig nature NA 137 135 - 145 [facility] mmol/L [facility] K 4.0 3.5 - 5.0 [facility] mmol/L [facility] CL 107 98 - 108 mmol/L [facility] CO2 TOTAL 25 23 - 31 mmol/L [facility] AGAP 5 2 - 16 [facility] BUN 11 7 - 23 mg/dL [facility] GLUCOSE 154 (H) 70 - 110 mg/dL [facility] CREATININE 0.56 0.50 - 1.04 [facility] mg/dL [facility] TOTAL BILI 0.3 0.1 - 1.1 mg/dL [facility] CALCIUM 9.1 8.6 - 10.6 [facility] mg/dL [facility] [facility] T PROTEIN 6.5 6.3 - 8.2 g/dL [facility] ALBUMIN 3.6 3.5 - 5.0 g/dL [facility] ALK PHOS 40 34 - 122 U/L [facility] ALTv 24 5 - 35 U/L [facility] AST(SGOT) 31 13 - 40 U/L [facility] eGFR Calculation 106.4 mL/min/1.73m2 [facility] ([facility] [place]) eGFR Calculation 129.0 mL/min/1.73m2 [facility] () [facility] Specimen Blood - LINE, VENOUS Narrative Performed At Association of Glomerular Filtration Rate (GFR) [facility] and Staging of Kidney Disease* + + +- + | GFR (mL/min/1.73 m2) | With Kidney Damage | Without Kidney Damage + + +- + | >90 | Stage one | Normal + + +- + | 60-89 | Stage two | Decreased GFR + + +- + | 30-59 | Stage three | Stage three + + +- + | 15-29 | Stage four | Stage four + + +- + | <15 (or dialysis) | Stage five | Stage five + + +- + *Each stage assumes the associated GFR level has been in effect for at least three months. Stages 1 to 5, with or without kidney disease, indicate chronic kidney disease. Notes: Determination of stages one and two (with eGFR >59mL/min/1.73 m2) requires estimation of kidney damage for at least three months as defined by structural or functional abnormalities of the kidney, manifested by either: Pathological abnormalities or Markers of kidney damage (including abnormalities in the composition of the blood or urine or abnormalities in imaging tests). Performing Organization Address City/State/Zipcode Phone Number [facility] CLIA: [id number] [place], [place] [id number] LABORATORY [address] CBC with Differential (10/13/2019 4:59 AM CDT) Pathologist Sig nature WBC 4.26 (L) 4.30 - 11.10 [facility] 10*3/L [facility] RBC 3.90 (L) 3.93 - 5.25 [facility] 10*6/L [facility] HGB 11.2 (L) 11.6 - 15.0 [facility] g/dL [facility] HCT 34.9 (L) 35.7 - 45.2 % [facility] MCV 89.5 80.6 - 95.5 fL [facility] MCH 28.7 25.9 - 32.8 pg [facility] MCHC 32.1 31.6 - 35.1 [facility] g/dL [facility] RDW-SD 43.5 39.0 - 49.9 fL [facility] RDW-CV 13.2 12.0 - 15.5 % [facility] PLT 242 166 - 358 [facility] 10*3/L [facility] MPV 10.2 9.5 - 12.9 fL [facility] NRBC/100 WBC 0.0 0.0 - 10.0 /100 [facility] WBCs [facility] NRBC x10^3 <0.01 10*3/L [facility] GRAN MAT (NEUT) % 47.5 % [facility] IMM GRAN % 0.20 % [facility] LYMPH % 36.4 % [facility] MONO % 10.3 % [facility] EOS % 4.9 % [facility] BASO % 0.7 % [facility] GRAN MAT x10^3(ANC) 2.02 1.88 - 7.09 [facility] 10*3/uL [facility] IMM GRAN x10^3 <0.03 0.00 - 0.06 [facility] 10*3/uL [facility] LYMPH x10^3 1.55 1.32 - 3.29 [facility] 10*3/uL [facility] MONO x10^3 0.44 0.33 - 0.92 [facility] 10*3/uL [facility] EOS x10^3 0.21 0.03 - 0.39 [facility] 10*3/uL [facility] BASO x10^3 0.03 0.01 - 0.07 [facility] 10*3/uL [facility] Specimen Blood - LINE, VENOUS Performing Organization Address [facility] Phone Number [facility] CLIA: [id number] [place] [address] LAB[address] POCT GLUCOSE (AUTOMATED) (10/12/2019 5:46 PM CDT) Pathologist Sig nature POCT GLU 249 (H) 70 - 110 mg/dL [facility] Specimen Blood Performing Organization Address [facility] Phone Number [facility] CLIA: [id number] [place] [address] LABOR[address] POCT GLUCOSE (AUTOMATED) (10/12/2019 3:33 PM CDT) Pathologist Sig nature POCT GLU 180 (H) 70 - 110 mg/dL [facility] Specimen Blood Performing Organization Address [facility] Phone Number [facility] CLIA: [id number] [place] [address] [place] [address] POCT GLUCOSE (AUTOMATED) (10/12/2019 11:17 AM CDT) Pathologist Sig nature POCT GLU 212 (H) 70 - 110 mg/dL [facility] Specimen Blood Performing Organization Address [facility] Phone Number [facility] CLIA: [id number] [place] [address] US GALL BLADDER (10/12/2019 9:06 AM CDT) Specimen Narrative Performed At HISTORY: Gallstones, pancreatitis. PACS/VR/DOSE TECHNIQUE: Gallbladder is evaluated in multiple planes with the patient in different positions. Color imaging is ut ilized. FINDINGS: Comparison is made with yester day night CT studies. Gallbladder is of normal size and shape with mild diff use thickening of the horta. Single mobile gallstone of approx imately 6.6 mm size noted in the dependent portion of the gallbladder lum en. Focal bright echo is seen in the anterior wall near th e fundus which could be a small 2 mm polyp. No biliary sludge or crystals seen. No free fluid detected in pericholecystic space. Commo n hepatic duct is 4.1 mm. The pancreas is completely obscured due to g as. Hepatic and portal venous system appeared patent. CONCLUSION: Chronic cholecystitis with s yosi mobile gallstone. Procedure Note [facility], Radiant Results Inft User - 2019 9:18 AM CDT HISTORY: Gallstones, pancreatitis. TECHNIQUE: Gallbladder is evaluated in m ultiple planes with the patient in different positions. Color imaging is ut ilized. FINDINGS: Comparison is made with yester day night CT studies. Gallbladder is of normal size and shape with mild diffuse thickening of the horta. Single mobile gallstone of approx imately 6.6 mm size noted in the dependent portion of the gallbladder lum en. Focal bright echo is seen in the anterio r wall near the fundus which could be a small 2 mm polyp. No biliary sludge or crystals seen. No free fluid detected in pericholecystic space. Commo n hepatic duct is 4.1 mm. The pancreas is completely obscured due to g as. Hepatic and portal venous system appeared patent. CONCLUSION: Chronic cholecystitis with s yosi mobile gallstone. Performing Organization Address City/State/Zipcode Phone Number PACS/VR/DOSE TROPONIN I (10/12/2019 5:37 AM CDT) Pathologist Sig nature TROPONIN I <0.012 <=0.034 ng/mL [facility] Specimen Blood - ARM, RIGHT Narrative Performed At Equal or Less than 0.034 ng/ml---Normal [facility] Note: Cardiac troponin begins to rise 3-4 hours after the onset of ischemia. Repeat in 4-6 hours if the sample was drawn within 3-4 hours of the onset of the symptom and found normal. Between 0.035 and 0.120 ng/mL--- Borderline. Questionable myocardial injury or necros is Note: Serial measurement may be necessary to confirm or exclude the diagnosis of myocardial injury or necrosis; Clinical correlation (symptoms, EKGs, imaging studies, and others) required; Repeat in 4-6 hours if clinically indicated. Equal or Higher than 0.121 ng/mL---Abnormal. Myocardial Injury or Necrosis Likely Biotin has been reported to cause a negative bias, interpret results relative to patient's use of biotin. Performing Organization Address [facility] Cent[facility] Phone Number [facility] CLIA: [id number] [place] [address] LIPASE (10/12/2019 5:37 AM CDT) Pathologist [facility] [employer] LIPASE 500 (H) 0 - 220 U/L [facility] Specimen Blood - ARM, RIGHT Performing Organization Address [facility] Center[facility] Phone Number [facility] CLIA: [id number] [place] [address] Glycosylated Hemoglobin (A1C) (10/12/2019 5:37 AM CDT) Pathologist [facility] [employer] HGB A1C 9.0 (H) 4.0 - 6.0 % [facility] Specimen Blood - ARM, RIGHT Narrative Performed At %A1C (NGSP) Interpretation (ADA) [facility] 4.8-5.6 Normal or (Non-Diabetic Ra nge) 5.7-6.4 Increased Risk (Pre-Diabet ic) >6.5 Diabetes Indicated Performing Organization Address [facility] Phone Number [facility] CLIA: [id number] [place] [address] POCT GLUCOSE (AUTOMATED) (10/12/2019 5:31 AM CDT) Pathologist [facility] [employer] POCT GLU 251 (H) 70 - 110 mg/dL [facility] Specimen Blood Performing Organization Address [facility] Phone Number [facility] CLIA: [id number] [place] [address] ABDOMEN PELVIS W CONTRAST (10/11/2019 11:50 PM CDT) Specimen Impressions Performed At PACS/VR/DOSE 1. Minimal fullness of the pancreatic head may be re lated to subclinical inflammation. However, there is no discernible pancrea tic or peripancreatic inflammatory change or stranding despite lipase elevations. No drainable retroperitoneal collections. 2. Cholelithiasis without CT findings indicative of acute cholecystitis. 3. Nonobstructive right nephrolithiasi s. 4. Noncalcified atherosclerotic plaque affecting a short segment of infrarenal abdominal aorta results in mild to moderate luminal stenosis. No dissection, large vessel occlusion, or s ignificant ostial stenosis. 5. Mild degenerative changes of the thoracolumbar sp ine with multifocal disc osteophyte complex spanning T12-L3 with resultant mild to moderate spinal canal stenoses at these levels. Preliminary Report Dictated by Resident: Briseyda Haro MD., have reviewed this stud y and agree with the above report. Narrative Performed At EXAM: CT ABDOMEN AND PELVIS WITH CONTRAS T PACS/VR/DOSE HISTORY: Epigastric pain. Concern for ab dominal infection. COMPARISON: None. TECHNIQUE AND FINDINGS: Contiguous axial imaging from the level of the lung bases through the proximal femurs was pe rformed after the uncomplicated administration of intravenous contrast and oral Omnipa que contrast. Coronal and sagittal reconstructions were obtain ed. Auto mA and/or iterative reconstruction were used to reduce radia tion dose. FINDINGS: LOWER THORAX: Please refer to the concur rently obtained, separately dictated, CT thorax report for detailed intrathoracic findings. LIVER: No focal hepatic lesions. Norm1 41al contour. GALLBLADDER AND BILIARY TREE: Partially decompressed g allbladder containing cholelithiasis. No pericholecystic infla mmatory change or free fluid. No biliary ductal dilation. SPLEEN: No splenomegaly. Minimal fullnes s of the pancreatic head without discernible pancreatic or peripancreatic inflammatory change or stranding. No discernible pancreatic mass. PANCREAS: No ductal dilation or masses. ADRENAL GLANDS: No adrenal nodules. KIDNEYS: 2.2 cm right lower renal pole h ypoattenuating lesion within the enhancing septation represents a Bosniak 2F lesion (27 :71). Suspected 9 mm right lower renal pole nonobstructive calculus (evalua tion is limited due to contrast excreted within the collecti ng system). Bilateral cortical scarring most promine nt within the right lower renal pole. Pattern of scarring is suggestive of prior per cutaneous nephrostomy tube. Few bilateral sub-5 mm vertical hypoatte nuating lesions are too small to characterize. No hydronephrosis. PERITONEUM AND RETROPERITONEUM: No free air or fluid. LYMPH NODES: No lymphadenopathy. GI TRACT: No dilation or wall thickening. Normal appen linn (27:103). Small sliding-type hiatal hernia. PELVIS/BLADDER: The uterus within normal limits. Unrem arkable left ovary. 1 cm right ovarian dominant follicle. The urinary bladder is mildly to moderat bibi distended and contains opacified ureteral jets. Unremarkable ur inary bladder horta. VESSELS: Background of moderate calcifie d and noncalcified aortoiliac atherosclerosis. A short segment of infrarenal abdomin al aorta demonstrates mild to moderate luminal stenosis secondary to noncalc ified atherosclerotic plaque (most prominent at 27:72). No large vessel occl usion. No significant ostial stenosis Two calcified foci measuring 0.8 and 1.0 cm at the splenic hilum are concerning for splenic artery aneurysms (27:35). BONES AND SOFT TISSUES: No suspicious ly tic or sclerotic bony lesions. Multilevel mild thoracolumbar spondylosis. Prominent c oncentric posterior disc osteophyte complex spanning T12-L3 results in mil d to moderate spinal canal stenosis at these levels. Procedure Note [facility], Radiant Results Inft User - 2019 8:05 AM CDT EXAM: CT ABDOMEN AND PELVIS WITH CONTRAST HISTORY: Epigastric pain. Concern for ab dominal infection. COMPARISON: None. TECHNIQUE AND FINDINGS: Contiguous axial imaging from the level of the lung bases through the proximal femurs was pe rformed after the uncomplicated administration of intravenous contrast a nd oral Omnipaque contrast. Coronal and sagittal reconstructions were obtain ed. Auto mA and/or iterative reconstruction were used to reduce radia tion dose. FINDINGS: LOWER THORAX: Please refer to the concur rently obtained, separately dictated, CT thorax report for detailed intrathoracic findings. LIVER: No focal hepatic lesions. Norm14 1al contour. GALLBLADDER AND BILIARY TREE: Partially decompressed gallbladder containing cholelithiasis. No pericholecystic infla mmatory change or free fluid. No biliary ductal dilation. SPLEEN: No splenomegaly. Minimal fullnes s of the pancreatic head without discernible pancreatic or peripancreatic inflammatory change or stranding. No discernible pancreatic mass. PANCREAS: No ductal dilation or masses. ADRENAL GLANDS: No adrenal nodules. KIDNEYS: 2.2 cm right lower renal pole h ypoattenuating lesion within the enhancing septation represents a Bosniak 2F lesion (27:71). Suspected 9 mm right lower renal pole nonobstructive ca lculus (evaluation is limited due to contrast excreted within the collecti ng system). Bilateral cortical scarring most promine nt within the right lower renal pole. Pattern of scarring is suggestive of prior percutaneous nephrostomy tube. Few bilateral sub-5 mm vertical hypoatte nuating lesions are too small to characterize. No hydronephrosis. PERITONEUM AND RETROPERITONEUM: No free air or fluid. LYMPH NODES: No lymphadenopathy. GI TRACT: No dilation or wall thickening . Normal appendix (27:103). Small sliding-type hiatal hernia. PELVIS/BLADDER: The uterus within normal limits. Unremarkable left ovary. 1 cm right ovarian dominant follicle. The urinary bladder is mildly to moderat bibi distended and contains opacified ureteral jets. Unremarkable ur inary bladder horta. VESSELS: Background of moderate calcifie d and noncalcified aortoiliac atherosclerosis. A short segment of infr arenal abdominal aorta demonstrates mild to moderate luminal stenosis second chasity to noncalcified atherosclerotic plaque (most prominent at 27:72). No lar ge vessel occlusion. No significant ostial stenosis Two calcified foci measuring 0.8 and 1.0 cm at the splenic hilum are concerning for splenic artery aneurysms (27:35). BONES AND SOFT TISSUES: No suspicious ly tic or sclerotic bony lesions. Multilevel mild thoracolumbar spondylosi s. Prominent concentric posterior disc osteophyte complex spanning T12-L3 results in mild to moderate spinal canal stenosis at these levels. IMPRESSION 1. Minimal fullness of the pancreatic h ead may be related to subclinical inflammation. However, there is no disce rnible pancreatic or peripancreatic inflammatory change or stranding despite lipase elevations. No drainable retroperitoneal collections. 2. Cholelithiasis without CT findings i ndicative of acute cholecystitis. 3. Nonobstructive right nephrolithiasis . 4. Noncalcified atherosclerotic plaque affecting a short segment of infrarenal abdominal aorta results in mi ld to moderate luminal stenosis. No dissection, large vessel occlusion, or s ignificant ostial stenosis. 5. Mild degenerative changes of the tho racolumbar spine with multifocal disc osteophyte complex spanning T12-L3 with resultant mild to moderate spinal canal stenoses at these levels. Preliminary Report Dictated by Resident: Ndy C IkBriseyda Suarez MD., have revie wed this study and agree with the above report. Performing Organization Address City/State/Zipcode Phone Number PACS/VR/DOSE CT ANGIOGRAM CHEST (10/11/2019 11:50 PM CDT) Specimen Impressions Performed At PACS/VR/DOSE 1. No evidence of a pulmonary embolism to the level of the subsegmental branches. No dissection or aneurysm. 2. A 0.7 cm left upper lobe and a 0.8 cm right upper lobe groundglass nodules may be related to an infectious/ inflammatory process. Neoplastic process is not ruled out. A follow up CT thorax in 6 m [facility] is recommended. Preliminary Report Dictated by Resident: Bentley Haro MD., have reviewed this study and agree with the above report. Narrative Performed At PROCEDURE: CT ANGIO CHEST WITH CONTRAST - PE PROTOCOL PACS/VR/DOSE CLINICAL INDICATION: Chest pain. COMPARISON: None. TECHNIQUE: Helical CT was performed an d reconstructed at 1.25 mm slice thickness from lung base to apices after the administr ation of intravenous contrast, without complication. 3D axial MIPS and co helder MPR images were generated under radiologist supervision, and reviewed to further define anatomy and possible pathology. Display field of view: 34 cm. FINDINGS: PULMONARY ARTERIES: Enhancement is adequate, and there is no acute or chronic pulmonary embolism. CHEST: Lower neck/thyroid: Unremarkable. Lungs: A 0.7 cm groundglass nodule withi n the left upper lobe (12:53). A 0.8 cm groundglass nodule within the rig ht upper lobe (12:54).. Central airway: Unremarkable. Pleura: No pleural effusion, thickening or pneumothorax. Thoracic aorta and great vessels: Bovine arch anatomy. Minimal calcified and noncalcified atherosclerosis of the aortic arch and thoracic aorta. Circumferential atherosclerotic plaque a t the origin of left subclavian artery without significant luminal narro wing. No dissection or aneurysm. Heart and pericardium: Mild coronary artery calcificat ions. Calcifications of the aortic root. Unremarkable cardiac morphology and pericardium. Lymph nodes: No enlarged thoracic lymph nodes. Mediastinum: Unremarkable. Thoracic spine and chest wall: Mild Spondylosis. Enma l thoracic vertebral body heights. Left shoulder osteoarthros is. Visualized upper abdomen: Please refer t o the concurrently obtained, separately dictated, CT abdomen/pelvis report for deta iled intra-abdominal findings. . Procedure Note [facility], Radiant Results Inft User - 2019 7:42 AM CDT PROCEDURE: CT ANGIO CHEST WITH CONTRAST - PE PROTOCOL CLINICAL INDICATION: Chest pain. COMPARISON: None. TECHNIQUE: Helical CT was performed and reconstructed at 1.25 mm slice thickness from lung base to apices after the administration of intravenous contrast, without complication. 3D axia l MIPS and coronal MPR images were generated under radiologist supervision, and reviewed to further define anatomy and possible pathology. Display field of view: 34 cm. FINDINGS: PULMONARY ARTERIES: Enhancement is adequate, and there is no acute or chronic pulmonary embolism. CHEST: Lower neck/thyroid: Unremarkable. Lungs: A 0.7 cm groundglass nodule withi n the left upper lobe (12:53). A 0.8 cm groundglass nodule within the rig ht upper lobe (12:54).. Central airway: Unremarkable. Pleura: No pleural effusion, thickening or pneumothorax. Thoracic aorta and great vessels: Bovine arch anatomy. Minimal calcified and noncalcified atherosclerosis of the aortic arch and thoracic aorta. Circumferential atherosclerotic plaque a t the origin of left subclavian artery without significant luminal narro wing. No dissection or aneurysm. Heart and pericardium: Mild coronary art yousif calcifications. Calcifications of the aortic root. Unremarkable cardiac morphology and pericardium. Lymph nodes: No enlarged thoracic lymph nodes. Mediastinum: Unremarkable. Thoracic spine and chest wall: Mild Spon dylosis. Normal thoracic vertebral body heights. Left shoulder osteoarthros is. Visualized upper abdomen: Please refer t o the concurrently obtained, separately dictated, CT abdomen/pelvis r eport for detailed intra-abdominal findings. . IMPRESSION 1. No evidence of a pulmonary embolism to the level of the subsegmental branches. No dissection or aneurysm. 2. A 0.7 cm left upper lobe and a 0.8 c m right upper lobe groundglass nodules may be related to an infectious/ inflammatory process. Neoplastic process is not ruled out. A follow up CT thorax in 6 months is recommended. Preliminary Report Dictated by Resident: Dayana Combs I, Bentley Amaral MD., have revie wed this study and agree with the above report. Performing Organization Address City/State/Zipcode Phone Number PACS/VR/DOSE XR CHEST 1 VW COVID (10/11/2019 8:59 PM CDT) Specimen Impressions Performed At PACS/VR/DOSE No acute intrathoracic abnormality, specifically no de tectable radiographic findings to suggest COVID-19 pneumonia. Disclaimer: Generally, the findings on c hest imaging in COVID-19 are not specific, and overlap with other infecti ons, including influenza, H1N1, SARS and MERS. According to the Centers for Disease Control (CDC) and recent statement of the [employer] [employer], viral testing remai ns the only specific method of diagnosis. Confirmation with the viral test is required, even if radiologic findings are suggestive of CO VID-[address] Preliminary Report Dictated by Resident: Ming Reid I, Kya Velazquez MD., have reviewed this study and agree with the above report. Narrative Performed At PROCEDURE: CHEST, SINGLE VIEW . PACS/VR/DOSE CLINICAL INDICATION: chest pain COMPARISON: None FINDINGS: The lungs are clear. No pleural effusion or pneumothorax is seen. The aorta is tortuous with a mildly calcified aortic arch. The heart is normal in size. No acute bony abnormality. Surgical clips project over the right ne ck. Procedure Note [facility], Radiant Results Inft User - 2019 12:34 AM CDT PROCEDURE: CHEST, SINGLE VIEW . CLINICAL INDICATION: chest pain COMPARISON: None FINDINGS: The lungs are clear. No pleural effusion or pneumothorax is s een. The aorta is tortuous with a mildly calcified aortic arch. The heart is normal in size. No acute bony abnormality. Surgical clips project over the right ne ck. IMPRESSION No acute intrathoracic abnormality, spec ifically no detectable radiographic findings to suggest COVID-19 pneumonia. Disclaimer: Generally, the findings on c hest imaging in COVID-19 are not specific, and overlap with other infecti ons, including influenza, H1N1, SARS and MERS. According to the Centers for Disease Con trol (CDC) and recent statement of the [employer], viral testing remains the only specific method of diagnosis. Confirmation with t he viral test is required, even if radiologic findings are suggestive of CO VID-[address]. Preliminary Report Dictated by Resident: Ming Reid I, Kya Velazquez MD., have reviewed this study and agree with the above report. Performing Organization Address City/[facility] Cent[facility] Phone Number PACS/VR/DOSE COVID-19 (ID NOW RAPID TESTING) (10/11/2019 8:55 PM CDT) SARS-CoV-2 Rapid ID Not Detected Not Detected [facility] Specimen Swab - NASOPHARYNGEAL SWAB Narrative Performed At [facility] COVID-19 Assay is an isothermal nucleic [facility] acid amplification test intended for the qualitative detection of nucleic acid from SARS-CoV-2 viral RNA in nasopharyngeal (WOUND CARE TECHNICIAN) specimens. It is used under Emergency Use Authorization (EUA) by FDA. The limit of detection (LOD) of the assay is 125 Genome Equivalents/mL. A positive result is indicative of the presence of SARS-CoV-2 RNA. Clinical correlation with patient history and other diagnostic information is necessary to determine patient infection status. A negative (Not Detected) result does not preclude SARS-CoV-2 infection. In patients with clinical symptoms and other tests that are consistent with SARS-CoV-2 infection, negative results should be treated as presumptive negative and a new specimen should be tested with alternative PCR molecular test. Invalid: Please collect a new specimen for repeat patient testing if clinically indicated. Performing Organization Address [facility]/Zipcode Phone Number [facility] CLIA: [id number] [place] [address] LOW-DENSITY LIPOPROTEIN, DIRECT (10/11/2019 8:52 PM CDT) Pathologist David randhawa dLDL Chol 76 <130 mg/dL [facility] Specimen Blood - VENOUS Performing Organization Address [facility]/Zipcode Phone Number [facility] CLIA: [id number] [place], [place] [address] [address] [place] [address] LIPID PANEL ([id number])(TOTAL CHOLESTEROL, TRIGLYCERIDES, HDL) (10/11/2019 8:52 PM CDT) CHOL 172 120 - 200 [facility] mg/dL HOSPITAL LAB[facility]ORY HDL 32 (L) >50 mg/dL [facility] HDLC RATIO 5.4 (H) <=4.5 [facility] TRIG 491 (H) 30 - 170 mg/dL [facility] LDL CHOL Comment: Unable to [facility] calculate LDL due to HOSPITAL LABORATORY elevated triglyceride level greater than 400 mg/dL. VLDL 98 (H) 5 - 60 mg/dL [facility] Specimen Blood - VENOUS Performing Organization Address City/[facility]/Zipcode Phone Number [facility] CLIA: [id number] [place] [address] PROTHROMBIN TIME / INR (10/11/2019 8:52 PM CDT) PROTIME PATIENT 12.0 12.0 - 14.7 [facility] LABORATORY INR 0.9Comment: Normal [facility] INR <1.1; Warfarin HOSPITAL Therapeutic range LABORATORY 2.0 to 3.0 or 2.5 to 3.5, depending upon the indications. Specimen Blood - VENOUS Performing Organization Address [facility] Phone Number [facility] CLIA: [id number] [place] [address] N-TERMINAL PRO-BNP (10/11/2019 8:52 PM CDT) Pathologist Sig nature NT-proBNP 115 <=125 pg/mL [facility] Specimen Blood - VENOUS Narrative Performed At Biotin has been reported to cause a negative [facility] bias, interpret results relative to patient's use of biotin. Performing Organization Address City/State/Zipcode Phone Number [facility] CLIA: [id number] [place] [address] TROPONIN I (10/11/2019 8:52 PM CDT) Pathologist Sig nature TROPONIN I <0.012 <=0.034 ng/mL [facility] Specimen Blood - VENOUS Narrative Performed At Equal or Less than 0.034 ng/ml---Normal [facility] Note: Cardiac troponin begins to rise 3-4 hours after the onset of ischemia. Repeat in 4-6 hours if the sample was drawn within 3-4 hours of the onset of the symptom and found normal. Between 0.035 and 0.120 ng/mL--- Borderline. Questionable myocardial injury or necros is Note: Serial measurement may be necessary to confirm or exclude the diagnosis of myocardial injury or necrosis; Clinical correlation (symptoms, EKGs, imaging studies, and others) required; Repeat in 4-6 hours if clinically indicated. Equal or Higher than 0.121 ng/mL---Abnormal. Myocardial Injury or Necrosis Likely Biotin has been reported to cause a negative bias, interpret results relative to patient's use of biotin. Performing Organization Address City/[facility]ome Phone Number [facility] CLIA: [id number] [place] [address] LIPASE (10/11/2019 8:52 PM CDT) Pathologist Sig [employer] LIPASE 4,504 (H) 0 - 220 U/L [facility] Specimen Blood - VENOUS Performing Organization Address [facility]ercome Phone Number [facility] CLIA: [id number] [place] [address] LABORATORY [address] [facility] COMP. METABOLIC PANEL ([id number]) (10/11/2019 8:52 PM CDT) Pathologist Sig [employer] NA 134 (L) 135 - 145 [facility] mmol/L [facility] K 4.4 3.5 - 5.0 [facility] mmol/L [facility] CL 100 98 - 108 mmol/L [facility] CO2 TOTAL 24 23 - 31 mmol/L [facility] AGAP 10 2 - 16 [facility] BUN 28 (H) 7 - 23 mg/dL [facility] GLUCOSE 253 (H) 70 - 110 mg/dL [facility] CREATININE 0.88 0.50 - 1.04 [facility] mg/dL [facility] TOTAL BILI 0.2 0.1 - 1.1 mg/dL [facility] CALCIUM 10.5 8.6 - 10.6 [facility] mg/dL [facility] T PROTEIN 7.8 6.3 - 8.2 g/dL [facility] ALBUMIN 4.5 3.5 - 5.0 g/dL [facility] ALK PHOS 60 34 - 122 U/L [facility] ALTv 19 5 - 35 U/L [facility] AST(SGOT) 22 13 - 40 U/L [facility] eGFR Calculation 63.2 mL/min/1.73m2 [facility] ([facility] LABORATORY [place]an) eGFR Calculation 76.6 mL/min/1.73m2 [facility] () [facility] Specimen Blood - VENOUS Narrative Performed At Association of Glomerular Filtration Rate (GFR) [facility] and Staging of Kidney Disease* + + +- + | GFR (mL/min/1.73 m2) | With Kidney Damage | Without Kidney Damage + + +- + | >90 | Stage one | Normal + + +- + | 60-89 | Stage two | Decreased GFR + + +- + | 30-59 | Stage three | Stage three + + +- + | 15-29 | Stage four | Stage four + + +- + | <15 (or dialysis) | Stage five | Stage five + + +- + *Each stage assumes the associated GFR level has been in effect for at least three months. Stages 1 to 5, with or without kidney disease, indicate chronic kidney disease. Notes: Determination of stages one and two (with eGFR >59mL/min/1.73 m2) requires estimation of kidney damage for at least three months as defined by structural or functional abnormalities of the kidney, manifested by either: Pathological abnormalities or Markers of kidney damage (including abnormalities in the composition of the blood or urine or abnormalities in imaging tests). Performing Organization Address City/State/Zipcode Phone Number [facility] CLIA: [id number] [place] [address] CBC WITH DIFF (10/11/2019 8:52 PM CDT) [facility] nature WBC 5.82 4.30 - 11.10 [facility] 10*3/L [facility] RBC 4.31 3.93 - 5.25 [facility] 10*6/L [facility] HGB 12.5 11.6 - 15.0 g/dL [facility] HCT 37.6 35.7 - 45.2 % [facility] MCV 87.2 80.6 - 95.5 fL [facility] MCH 29.0 25.9 - 32.8 pg [facility] MCHC 33.2 31.6 - 35.1 g/dL [facility] RDW-SD 40.9 39.0 - 49.9 fL [facility] RDW-CV 12.9 12.0 - 15.5 % [facility] PLT 275 166 - 358 [facility] 10*3/L [facility] MPV 10.2 9.5 - 12.9 fL [facility] NRBC/100 WBC 0.0 0.0 - 10.0 /100 [facility] WBCs [facility] NRBC x10^3 <0.01 10*3/L [facility] GRAN MAT (NEUT) % 46.5 % [facility] IMM GRAN % 0.50 % [facility] LYMPH % 38.7 % [facility] MONO % 9.3 % [facility] EOS % 4.1 % [facility] BASO % 0.9 % [facility] GRAN MAT x10^3(ANC) 2.71 1.88 - 7.09 [facility] 10*3/uL HOSPITAL LABORATORY IMM GRAN x10^3 0.03 0.00 - 0.06 [facility] 10*3/uL HOSPITAL LABORATORY LYMPH x10^3 2.25 1.32 - 3.29 [facility] 10*3/uL HOSPITAL LABORATORY MONO x10^3 0.54 0.33 - 0.92 [facility] 10*3/uL HOSPITAL LABORATORY EOS x10^3 0.24 0.03 - 0.39 [facility] 10*3/uL HOSPITAL LABORATORY BASO x10^3 0.05 0.01 - 0.07 [facility] 10*3/uL [facility] Specimen Blood - VENOUS Performing Organization Address City/State/Zipcode Phone Number [facility] CLIA: [id number] [place] [address] documented in this encounter Visit Diagnoses Diagnosis Chest pain, unspecified type Acute pancreatitis without infection or necrosis, unspecified pancreatitis type Uncontrolled type 2 diabetes mellitus wi th hyperglycemia Calculus of gallbladder with acute maura cystitis without obstruction Calculus of gallbladder with acute maura cystitis, without mention of obstruction Essential hypertension, benign Hyperlipidemia Other and unspecified hyperlipidemia Coronary artery disease involving kiana coronary artery of kiana heart without angina pectoris Type 2 diabetes mellitus without complic ation, without long-term current use of insulin documented in this encounter Administered Medications Medication Order MAR Action Action Date Dose Rate Site acetaminophen (TYLENOL) tablet 500 mg 500 mg, Oral, Q6HPRN, Starting Wed10/13/19 at 1124, Unt il Discontinued, Routine, Pain (scale 1-3) dextrose 50 % in water (D50W) injection 25 mL 25 mL, Slow IV Push, PRN, Starting Wed at 0340, Until Discontinued, LISA, Blood Glucose < or = 70 mg/dL and patien t is unable to swallow or has mental status changes. enoxaparin (LOVENOX) injection 40 mg Given 10/14/2019 8:33 AM CDT 40 mg Abdo men-SC 40 mg, Subcutaneous, DAILY, First dose on Wed10/12/19 at 0900, Until Discontinued, Routine Given 10/12/2019 8:56 AM CDT 40 mg Abdo men-SC glucagon (GLUCAGEN DIAGNOSTIC KIT) injec tion 1 mg 1 mg, Intramuscular, PRN, Starting Wed at 0340, Until Discontinued, LISA, Blood Glucose < or = 70 mg/dL and patient is unable to swallow or has mental changes. HYDROcodone-acetaminophen (NORCO 5) 5-325 Given 2019 9:22 PM CDT 1 tablet mg tablet 1 tablet 1 tablet, Oral, Q6HPRN, Starting Wed10/13/19 at 1124, Until Discontinued, Routine, Pain (scale 4-6) ibuprofen (IBU) tablet 400 mg Given 10/14/2019 1:08 PM CDT 400 mg 400 mg, Oral, TID MEALS, First dose on Wed10/13/19 at 1200, Until Discontinued, Routine Given 10/14/2019 8:32 AM CDT 400 mg Given 10/13/2019 5:16 PM CDT 400 mg lisinopril (PRINIVIL,ZESTRIL) tablet 10 mg Given 10/14/2019 8:32 AM CDT 10 mg 10 mg, Oral, DAILY, First dose on Daphne 10/12/19 at 0900, Until Discontinued, Routine Given 10/13/2019 8:01 AM CDT 10 mg Given 10/12/2019 8:57 AM CDT 10 mg nitroglycerin (NITROSTAT) sublingual tab let 0.4 mg 0.4 mg, Sublingual, Q5MIN PRN, Starting Wed10/12/19 at 0353, Until Discontinued, Routine, Chest pain ondansetron (ZOFRAN (PF)) injection 4 mg Given 10/13/2019 11:01 AM CDT 4 mg 4 mg, Slow IV Push, Q6HPRN, Starting Wed10/12/19 at 0257, Until Discontinued, Routine, Nausea and Vomiting (N/V) pantoprazole (PROTONIX) EC tablet 40 mg Given 10/14/2019 8:32 AM CDT 40 mg 40 mg, Oral, DAILY, First dose on 10/14/19 at 0900, Until Discontinued, Routine Sliding Scale Insulin - Aspart Given 10/14/2019 8:39 AM CDT 4 U nits Left Arm (NOVOLOG) + Fsbg Testing Subcutaneous, TID MEALS+HS, First dose (after last modification) on Wed10/13/19 at 2100, Until Discontinued, Routine Medication Order MAR Action Action Date Dose Rate Site FENTanyl PF (SUBLIMAZE (PF)) Given 10/13/2019 12:03 PM CDT 25 mc g injection 25 mcg 25 mcg, Slow IV Push, Q5MIN PRN, 4 doses, Starting Wed10/13/19 at 1202, Until Wed10/13/19 at 1322, Routine, Pain (scale 4-6), PACU insulin aspart RAPID (NOVOLOG Given 10/13/2019 9:37 PM CDT 15 U nits Abdomen-SC U-100 INSULIN ASPART) injection 15 Units 15 Units, Subcutaneous, ONCE, 1 dose, Wed10/13/19 at 2245, Routine iohexol (OMNIPAQUE 350 BULK-150 mL) Given 10/12/2019 12:00 AM CD T 120 mL injection 120 mL 120 mL, Intravenous, ONCE, 1 dose, Daphne 10/12/19 at 0000, Routine lactated ringers IV infusion 1,000 mL New Bag 10/13/2019 9:03 AM CDT at 125 mL/hr, 1,000 mL, IV Infusion, CONTINUOUS, Starting Wed10/12/19 at 1715, Until Wed10/13/19 at 1123, Routine New Bag 10/13/2019 1:36 AM CDT 1,000 mL 125 mL/hr New Bag 10/12/2019 5:47 PM CDT 1,000 mL 125 mL/hr NaCl 0.9% (NS) IV infusion 1,000 New Bag 10/12/2019 5:38 AM C DT 1,000 mL 999 mL/hr mL at 999 mL/hr, Intravenous, CONTINUOUS, Starting Wed10/11/19 at 2345, Until Wed10/12/19 at 1709, Routine New Bag 10/11/2019 10:53 PM CDT 1,000 mL 999 mL/hr NaCl 0.9% (NS) IV infusion 1,000 New Bag 10/12/2019 5:38 AM C DT 1,000 mL 100 mL/hr mL at 100 mL/hr, IV Infusion, ONCE, 1 dose, Wed10/12/19 at 0400, Routine proMETHazine (PHENERGAN) 12.5 mg in NaCl Given 10/13/2019 12:18 PM CDT 12.5 mg 0.9% (NS) 50 mL IV piggyback 12.5 mg, IV Piggyback, ONCE, 1 dose, Wed10/13/19 at 1230, Routine, PACU Sliding Scale Insulin - Aspart Given 10/13/2019 5:16 PM CDT 6 U nits Left Arm (NOVOLOG) + Fsbg Testing Subcutaneous, Q6H, First dose on Wed10/12/19 at 0600, Until Discontinued, Routine Given 10/12/2019 5:48 PM CDT 4 Units Left Arm Given 10/12/2019 5:46 AM CDT 4 Units Left Upper Arm-SC documented in this encounter Additional Health Concerns Infection Onset Date Last Indicated Resolved Time COVID-19 Rule Out 10/11/2019 10/11/2019 10/11/2019 9: 24 PM CDT documented as of this encounter Insurance Payer Benefit Plan / Subscriber ID Effective Dates Phone Addre ss Type Group Qire [id number] 2017-Present Medicare Adv spring HMO [id number] (Home) [place], [place] [phone] [id number] (Work) documented as of this encounter Advance Directives Type Date Recorded 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
--- NOTE | 2019-10-31 09:16 | ER ---
Nurse's Notes [facility] Name: Rena Reddy Age: 74 yrs Sex: Female : 1945 Arrival Date: 10/31/2019 Time: 08:07 Bed 28 Private MD: José Luis Harrington Diagnosis: Dental caries;Dental root caries Presentation: 10/30 08:13 Chief complaint: Patient states: dental pain and R lower jaw swelling that began last ss night. Pt reports she has a bad tooth. Coronavirus screen: Client denies travel out of the [place] in the last 14 days. At this time, the client does not indicate any symptoms associated with coronavirus-19. Ebola Screen: Patient denies exposure to infectious person. Patient denies travel to an Ebola-affected area in the 21 days before illness onset. Initial Sepsis Screen: Does the patient meet any 2 criteria? No. Patient's initial sepsis screen is negative. Does the patient have a suspected source of infection? No. Patient's initial sepsis screen is negative. Risk Assessment: Do you want to hurt yourself or someone else? Patient reports no desire to harm self or others. Onset of symptoms was October 30, 2019. 08:13 Method Of Arrival: Ambulatory ss 08:13 Acuity: JULES 4 ss Historical: - Allergies: 08:16 NKDA; ss - PMHx: 08:16 Diabetes - NIDDM; Hyperlipidemia; Hypertension; Kidney stones; Myocardial infarction; ss - PSHx: 08:16 Heart stents; thyroid surgery; kidney stones; uterine ablation; ss - Immunization history:: Adult Immunizations up to date. - Social history:: Smoking status: Patient denies any tobacco usage or history of. - Family history:: not pertinent. Screenin:17 Abuse screen: Denies threats or abuse. Denies injuries from another. Nutritional ss screening: No deficits noted. Tuberculosis screening: Never had TB. Fall Risk None identified. Assessment: 08:17 General: Appears uncomfortable, Behavior is calm, cooperative. Pain: Complains of pain ss in lower right first bicuspid (#28) and lower right cuspid (#27) and lower right lateral incisor (#26) and mouth Pain currently is 5 out of 10 on a pain scale. at worst was 8 out of 10 on a pain scale. Quality of pain is described as throbbing, Is continuous. Neuro: Level of Consciousness is awake, alert, obeys commands, Oriented to person, place, time, situation. Cardiovascular: Capillary refill < 3 seconds is brisk in bilateral fingers. Respiratory: Airway is patent Respiratory effort is even, unlabored, Respiratory pattern is regular, symmetrical. GI: Patient currently denies diarrhea, nausea, vomiting. : No signs and/or symptoms were reported regarding the genitourinary system. EENT: Nares are clear. Derm: Skin is intact, is healthy with good turgor, Skin is dry, Skin is pink, warm \T\ dry. normal. Musculoskeletal: Circulation, motion, and sensation intact. Range of motion: intact in all extremities, Swelling absent. Vital Signs: 08:13 BP 202 / 86; Pulse 70; Resp 16; Temp 97.6(O); Pulse Ox 100% on R/A; Weight 62.14 kg; ss Height 5 ft. 1 in. (154.94 cm); Pain 5/10; 08:13 Body Mass Index 25.88 (62.14 kg, 154.94 cm) ss 08:13 Pt reports she has not taken her am BP medication yet, but will take them now ss ED Course: 08:07 Patient arrived in ED. mr 08:07 José Luis Harrington MD is Private Physician. mr 08:15 Triage completed. ss 08:16 Arm band placed on right wrist. ss 08:17 Patient has correct armband on for positive identification. Bed in low position. Call ss light in reach. 08:26 Stefano Arnold MD is Attending Physician. abby 09:10 Марина Mesa, PADMA is Primary Nurse. ss 09:13 José Luis Harrington MD is Referral Physician. abby 09:16 Armando Arizmendi DDS is Referral Physician. abby 09:24 No provider procedures requiring assistance completed. Patient did not have IV access ss during this emergency room visit. Administered Medications: 09:10 Drug: [place] 5 mg-325 mg 2 tabs Route: PO; ss 09:15 Follow up: Response: Medication held due to patient's status ss 09:11 Drug: Clindamycin 300 mg Route: PO; ss 09:15 Follow up: Response: No adverse reaction; Medication administered at discharge. ss 09:11 Drug: Motrin 400 mg Route: PO; ss 09:15 Follow up: Response: No adverse reaction; Medication administered at discharge. ss Outcome: 09:16 Discharge ordered by . abby 09:24 Discharged to home ambulatory. 09:24 Condition: good 09:24 Discharge instructions given to patient, family, Instructed on discharge instructions, follow up and referral plans. medication usage, Demonstrated understanding of instructions, follow-up care, medications, Prescriptions given X 3. 09:25 Patient left the ED. ss Signatures: Stefano Arnold MD MD cha Rivera, Mary mr Smirch, Shelby, RN RN ss
--- NOTE | 2019-10-31 09:16 | EDPHYS ---
Physician Documentation [facility] Name: Rena Reddy Age: 74 yrs Sex: Female : 1945 Arrival Date: 10/31/2019 Time: 08:07 Bed 28 Private MD: José Luis Harrington ED Physician Stefano Arnold HPI: 10/30 09:01 This 74 yrs old Female presents to ER via Ambulatory with complaints of Mouth abby Swelling. 09:01 The patient presents with broken tooth/teeth, pain, redness. The problem is located in abby the mouth and chin. Onset: The symptoms/episode began/occurred 2 day(s) ago. Duration: The symptoms are continuous, and are steadily getting worse. Modifying factors: The symptoms are alleviated by nothing, the symptoms are aggravated by chewing. Associated signs and symptoms: The patient has no apparent associated signs or symptoms. Severity of symptoms: At their worst the symptoms were mild, in the emergency department the symptoms are unchanged. The patient has not experienced similar symptoms in the past. Historical: - Allergies: 08:16 NKDA; ss - PMHx: 08:16 Diabetes - NIDDM; Hyperlipidemia; Hypertension; Kidney stones; Myocardial infarction; ss - PSHx: 08:16 Heart stents; thyroid surgery; kidney stones; uterine ablation; ss - Immunization history:: Adult Immunizations up to date. - Social history:: Smoking status: Patient denies any tobacco usage or history of. - Family history:: not pertinent. ROS: 09:01 Constitutional: Negative for fever, chills, and weight loss, Eyes: Negative for injury, abby pain, redness, and discharge, Neck: Negative for injury, pain, and swelling, Cardiovascular: Negative for chest pain, palpitations, and edema, Respiratory: Negative for shortness of breath, cough, wheezing, and pleuritic chest pain, Abdomen/GI: Negative for abdominal pain, nausea, vomiting, diarrhea, and constipation, Back: Negative for injury and pain, : Negative for injury, bleeding, discharge, and swelling, MS/Extremity: Negative for injury and deformity, Skin: Negative for injury, rash, and discoloration, Neuro: Negative for headache, weakness, numbness, tingling, and seizure, Psych: Negative for depression, anxiety, suicide ideation, homicidal ideation, and hallucinations, Allergy/Immunology: Negative for hives, rash, and allergies, Endocrine: Negative for neck swelling, polydipsia, polyuria, polyphagia, and marked weight changes, Hematologic/Lymphatic: Negative for swollen nodes, abnormal bleeding, and unusual bruising. 09: ENT: Positive for Gum pain Exam: 09: Constitutional: This is a well developed, well nourished patient who is awake, alert, abby and in no acute distress. Eyes: Pupils equal round and reactive to light, extra-ocular motions intact. Lids and lashes normal. Conjunctiva and sclera are non-icteric and not injected. Cornea within normal limits. Periorbital areas with no swelling, redness, or edema. Neck: Trachea midline, no thyromegaly or masses palpated, and no cervical lymphadenopathy. Supple, full range of motion without nuchal rigidity, or vertebral point tenderness. No Meningismus. Chest/axilla: Normal chest wall appearance and motion. Nontender with no deformity. No lesions are appreciated. Cardiovascular: Regular rate and rhythm with a normal S1 and S2. No gallops, murmurs, or rubs. Normal PMI, no JVD. No pulse deficits. Respiratory: Lungs have equal breath sounds bilaterally, clear to auscultation and percussion. No rales, rhonchi or wheezes noted. No increased work of breathing, no retractions or nasal flaring. Abdomen/GI: Soft, non-tender, with normal bowel sounds. No distension or tympany. No guarding or rebound. No evidence of tenderness throughout. Back: No spinal tenderness. No costovertebral tenderness. Full range of motion. Female : Normal external genitalia. Skin: Warm, dry with normal turgor. Normal color with no rashes, no lesions, and no evidence of cellulitis. MS/ Extremity: Pulses equal, no cyanosis. Neurovascular intact. Full, normal range of motion. Neuro: Awake and alert, GCS 15, oriented to person, place, time, and situation. Cranial nerves II-XII grossly intact. Motor strength 5/5 in all extremities. Sensory grossly intact. Cerebellar exam normal. Normal gait. Psych: Awake, alert, with orientation to person, place and time. Behavior, mood, and affect are within normal limits. 09: Head/face: Noted is swelling, tenderness, that is moderate, of the mouth and chin. 09:01 ENT: Dental exam: cellulitis, that is mild, that is moderate, specifically in the lower right lateral incisor (#26), lower right cuspid (#27) and lower right first bicuspid (#28), dental caries, pain. Vital Signs: 08:13 BP 202 / 86; Pulse 70; Resp 16; Temp 97.6(O); Pulse Ox 100% on R/A; Weight 62.14 kg; ss Height 5 ft. 1 in. (154.94 cm); Pain 5/10; 08:13 Body Mass Index 25.88 (62.14 kg, 154.94 cm) 08:13 Pt reports she has not taken her am BP medication yet, but will take them now MDM: 08:26 Patient medically screened. [facility] 09:07 Differential diagnosis: dental caries, dental abscess, gingivostomatitis. Data [facility] reviewed: vital signs, nurses notes. Data interpreted: telemetry monitor: not applicable for this patient encounter. Pulse oximetry:. 09:10 Counseling: I had a detailed discussion with the patient and/or guardian regarding: the [facility] historical points, exam findings, and any diagnostic results supporting the discharge/admit diagnosis, the need for outpatient follow up, for definitive care, a dentist. ED course: pt explained plan, will take pain meds and antibiotics and follow up. Administered Medications: 09:10 Drug: [place] 5 mg-325 mg 2 tabs Route: PO; 09:15 Follow up: Response: Medication held due to patient's status 09:11 Drug: Clindamycin 300 mg Route: PO; 09:15 Follow up: Response: No adverse reaction; Medication administered at discharge. 09:11 Drug: Motrin 400 mg Route: PO; 09:15 Follow up: Response: No adverse reaction; Medication administered at discharge. Disposition: 10/31/19 09:16 Discharged to Home. Impression: Dental caries, Dental root caries. - Condition is Stable. - Discharge Instructions: Dental Abscess, Dental Caries, Adult, Dental Pain, Dental Pain, [id number], Dental Abscess, [id number], Dental Caries, [id number]. - Prescriptions for Clindamycin HCl 300 mg Oral Capsule - take 1 capsule by ORAL route every 6 hours for 7 days; 28 capsule. Tylenol- Codeine #3 300-30 mg Oral Tablet - take 1 tablet by ORAL route every 6 hours As needed; 20 tablet. Motrin IB 200 mg Oral Tablet - take 1 tablet by ORAL route every 6 hours As needed as needed with food; 20 tablet. - Medication Reconciliation Form, Thank You Letter, Antibiotic Education, Prescription Opioid Use form. - Follow up: José Luis Harrington MD; When: 2 - 3 days; Reason: Recheck today's complaints, Continuance of care, Re-evaluation by your physician. Follow up: Armando Arizmendi DDS; When: 2 - 3 days; Reason: Recheck today's complaints, Re-evaluation by your physician. - Problem is new. - Symptoms have improved. Signatures: Stefano Arnold MD MD cha Smirch, Shelby RN RN ss Corrections: (The following items were deleted from the chart) 09:25 09:16 10/31/2019 09:16 Discharged to Home. Impression: Dental caries; Dental root ss caries. Condition is Stable. Discharge Instructions: Dental Abscess, Dental Caries, Adult, Dental Pain, Dental Pain, [id number], Dental Abscess, [id number], Dental Caries, [id number]. Prescriptions for Clindamycin HCl 300 mg Oral Capsule - take 1 capsule by ORAL route every 6 hours for 7 days; 28 capsule, Tylenol-Codeine #3 300-30 mg Oral Tablet - take 1 tablet by ORAL route every 6 hours As needed; 20 tablet, Motrin IB 200 mg Oral Tablet - take 1 tablet by ORAL route every 6 hours As needed as needed with food; 20 tablet. and Forms are Medication Reconciliation Form, Thank You Letter, Antibiotic Education, Prescription Opioid Use. Follow up: José Luis Harrington; When: 2 - 3 days; Reason: Recheck today's complaints, Continuance of care, Re-evaluation by your physician. Follow up: Armando Arizmendi; When: 2 - 3 days; Reason: Recheck today's complaints, Re-evaluation by your physician. Problem is new. Symptoms have improved. abby
[2019-10-31] MEDS ORDERED: HYDROCODONE/APAP 5/325 MG TAB ONE (09:19)
[2019-10-31] MEDS ORDERED: IBUPROFEN 200 MG TAB PO ONE (09:19)
[2019-11-04 11:32] VITALS: BP 202/86; TEMP 97.6; O2SAT 100
== END 2019-10-31 09:25 | disposition home or self-care (01) ==
LOC: ER 08:03
DX: K02.7 Dental root caries (principal); K02.9 Dental caries, unspecified
CPT/HCPCS: 99283

== ENCOUNTER 2021-03-29 18:42 | Observation (INO) | payer OTHER ==
--- OUTSIDE RECORDS SUMMARY | 2021-03-29 18:50 | XMS REPORT | Continuity of Care Document ---
:1945 Author Organization [facility] t Address [address] [place] [place] [address] Care Team Providers Name Role Phone Paige Phillips MD Primary Care Physician IKER Attending Clinician Unavailable Reed ROUSE, T Attending Clinician Unavailable Only, Db Test Attending Clinician Unavailable Marco RUEDA Attending Clinician MARCO Attending Clinician Unavailable Doctor Unassigned, Name Attending Clinician Unavailable Iker RUEDA-C Attending Clinician MARIO OTTO Attending Clinician Unavailable LAB90 Attending Clinician Unavailable Paige PHILLIPS Attending Clinician Unavailable COVID-PFIZER MARIO TEMPLETON Attending Clinician Unavailab Paige Friedman MD Attending Clinician Rolf Borden DO Attending Clinician Aalina LUGO Attending Clinician ALAINA Attending Clinician Unavailable Singer GRAHAM Attending Clinician SANDOR Attending Clinician Unavailable Sandor LUGO Attending Clinician Guillermo ROUSE Attending Clinician Unavailable Renata LUGO S Attending Clinician Lory LUGO Attending Clinician Lab, Fam Pob I Attending Clinician Unavailable Vega STRATEGIC ACCOUNT DIRECTOR Attending Clinician Lory LUGO Admitting Clinician Payers Payer Name Policy Type Policy Number Effective Date Expiration Date Delisa gonzalez [employer] [id number] 2017spring 00:00:00 [employer] MEDICARE 7 [id number] 2021 [id number] GOLD 00:00:00 PLUS 2021 [employer] MAPD - HMO 7 [id number] 2020 2020 R2T 00:00:00 Problems Condition Condition Condition Status Onset Resolution Last Treating Co mments Source Name Details Category Date Date Treatment Clinician Date Type 2 Type 2 Disease Active Overview: Kasia diabetes diabetes 11-28 Formattin Sey bold mellitus mellitus 00:00: g of this with with 00 note cardiac cardiac might be complicati complicati different on on from the original. Asa, plavix, and statinLas t Assessmen t & Plan: Formattin g of this note might be different from the original. Controlle d Essential Essential Disease Active Overview: Kasia hypertensi hypertensi 11-28 Formattin Seybold on on 00:00: g of this 00 note might be different from the original. On KELBY + BBLast Assessmen t & Plan: Formattin g of this note might be different from the original. Controlle d Dyslipidem Dyslipidem Disease Active Overview : Kasia ia ia 11-28 Formattin Seybold 00:00: g of this 00 note might be different from the original. On statinLas t Assessmen t & Plan: Formattin g of this note might be different from the original. Controlle d Gastroesop Gastroesop Disease Active Overview : Kasia hageal hageal 11-28 Formattin Seybold reflux reflux 00:00: g of this disease disease 00 note without without might be esophagiti esophagiti different s s from the original. On ppiLast Assessmen t & Plan: Formattin g of this note might be different from the original. Controlle d S/P S/P Disease Active Kasia primary primary 11-28 Seybold angioplast angioplast 00:00: y with y with 00 coronary coronary stent stent Iron Iron Disease Active Overview: Kasia deficiency deficiency 11-28 Formattin Seybold anemia anemia 00:00: g of this 00 note might be different from the original. 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 2016On BB, Plavix, and ststinLas t Assessmen t & Plan: Formattin g of this note might be different from the original. Controlle d Nonspecifi Nonspecifi Disease Active Overview : Kasia c c 11-28 Formattin Seybold abnormalit abnormalit 00:00: g of this y on liver y on liver 00 note isotope isotope might be scan scan different from the original. In [place] told a spot on the lievr needed 6 month follow up Acute Acute Disease Active [facility] pancreatit pancreatit 10-11 it y of is is 00:00: [place] 00 [facility] Coronary Coronary Disease Active Unive rs artery artery 10-11 ity of disease disease 00:00: [place] involving involving 00 Medi [place] [facility] coronary coronary artery of artery of [place] heart heart without without angina angina pectoris pectoris Type 2 Type 2 Disease Active [facility] diabetes diabetes 10-11 ity of mellitus mellitus 00:00: [place] without without 00 Medical complicati complicati Br anch on, on, without without long-term long-term current current use of use of insulin insulin Acid Acid Disease Active [facility] reflux reflux 06-06 ity of 00:00: [place] 00 [facility] Essential Essential Disease Active Uni vers hypertensi hypertensi 06-06 it y of on, benign [place] benign [place] [facility] Hyperlipid Hyperlipid Disease Active U nivers emia emia 06-06 ity of 00:00: [place] 00 [facility] Type II or Type II or Disease Active U nivers unspecifie unspecifie 06-06 it y of d type d type 00:00: [place] diabetes diabetes 00 Medica l mellitus mellitus Branch with with unspecifie unspecifie d d complicati complicati on, not on, not stated as stated as uncontroll uncontroll ed ed Bladder Bladder Problem [facility] Kidney Kidney Diagnosis [facility] UTI (lower UTI (lower Diagnosis Active [facility] Allergies, Adverse Reactions, Alerts Allergy Allergy Status Severity Reaction(s) Onset Inactive Treating Comm ents Source Name Type Date Date Clinician NO KNOWN Drug Active Univers ALLERGIE Class ity of [facility] Social History Social Habit Start Date Stop Date Quantity Comments Source Exposure to Not sure [facility] SARS-CoV-2 [facility] (event) [place] Tobacco use and 2020-11-28 2020-11-28 Smokeless tobacco Case Hafidel exposure 00:00:00 00:00:00 non-user Alcohol intake 2019-10-16 2019-10-16 .12 /d University 00:00:00 00:00:00 [facility] Sex [birth year] At [birth year] Kasia Shepherd simone 00:00:00 00:00:00 Smoking Status Start Date Stop Date Source Never smoked tobacco Kasia Ha old Medications Ordered Filled Start Stop Current Ordering Indication Dosage Frequency Signature Comments Components Source Medication Medication Date Date Medication? Clinician (SIG) Name Name Nitrofurant 2020-03 Yes [id number] 100mg Take 1 Kasia oin Monohyd 2-29 capsule Dilciao ld Macro 00:00: (100 mg (Macrobid) 00 total) by 100 MG oral mouth Capsule daily Vitamin D, 2020-03 Yes [id number] 1{tbl} Take 1 Kasia Cholecalcif 2-27 tablet by Lourdes salas, 25 00:00: mouth MCG (1000 00 daily UT) oral Capsule Ciprofloxac 2020-03- Yes [id number] 500mg Take 1 Kasia in HCl 2-27 03-11 tablet Seybold (Cipro) 500 00:00: 05:59 (500 mg MG oral 00 :00 total) by Tablet mouth 2 times daily for 7 days Metformin 2020-03 Yes [id number] 1000mg Take 2 Kasia HCl 500 MG 2-23 tablets Seybol d oral Tablet 00:00: (1,000 mg 00 total) by mouth 2 times daily (with meals) Famotidine 2020-03 Yes [id number] 20mg Take 1 Kasia (PEPCID) 20 2-23 tablet (20 Se ybold MG oral 00:00: mg total) tablet 00 by mouth 2 times daily Metformin 2020-03 Yes [id number] 1000mg Take 2 Kasia HCl 500 MG 2-23 tablets Seybol d oral Tablet 00:00: (1,000 mg 00 total) by mouth 2 times daily (with meals) Famotidine 2020-03 Yes [id number] 20mg Take 1 Kasia (PEPCID) 20 2-23 tablet (20 Se ybold MG oral 00:00: mg total) tablet 00 by mouth 2 times daily Celecoxib 2020-03 Yes [id number] TAKE 1 Ke lsey 200 MG oral 1-30 CAPSULE BY Se ybold Capsule 00:00: MOUTH 2 00 TIMES DAILY. Celecoxib 2020-03 Yes [id number] TAKE 1 Ke lsey 200 MG oral 1-30 CAPSULE BY Se ybold Capsule 00:00: MOUTH 2 00 TIMES DAILY. Famotidine 2020-03- No [id number] TAKE 1 Kasia (PEPCID) 20 1-23 12-23 [id number] TABLET BY Seybold MG oral 00:00: 00:00 MOUTH tablet 00 :00 TWICE A DAY Lansoprazol 2020-03 Yes [id number] 30mg Take 1 Kasia e 30 MG 1-15 tablet (30 Seybol d oral Tablet 00:00: mg total) Delayed 00 by mouth Release daily Dispersible Lansoprazol 2020-03 Yes [id number] 30mg Take 1 Kasia e 30 MG 1-15 tablet (30 Seybol d oral Tablet 00:00: mg total) Delayed 00 by mouth Release daily Dispersible Fluconazole 2020-03 Yes Kasia 150 MG oral 1-10 Seybold Tablet 00:00: 00 Fluconazole 2020-03 Yes Kasia 150 MG oral 1-10 Seybold Tablet 00:00: 00 Nitrofurant 2020-03 Yes [id number] 100mg Take 1 Kasia oin Monohyd 1-09 capsule Seybo ld Macro 00:00: (100 mg (Macrobid) 00 total) by 100 MG oral mouth 2 Capsule times daily Nitrofurant 2020-03 Yes [id number] 100mg Take 1 Kasia oin Monohyd 1-09 capsule Seybo ld Macro 00:00: (100 mg (Macrobid) 00 total) by 100 MG oral mouth 2 Capsule times daily Lactobacill 2020-03 Yes 1{capsu Take 1 K elsey us-Inulin 1-08 le} capsule by Dilcia parra (Culturelle 14:36: mouth Digestive daily Health) oral Capsule Aspirin 2020-03 Yes 81mg Take 81 mg Nereyda ey (Aspirin 1-08 by mouth Seybold 81) 81 MG 14:36: daily oral Tablet 01 Delayed Response Magnesium 2020-03 Yes 1 tablet Nereyda ey 250 MG oral 08 with a Seybol d Tablet 14:36: meal 01 Lactobacill 2020-03 Yes 1{capsu Take 1 K elsey us-Inulin 1-08 le} capsule by Dilcia parra (Culturelle 14:36: mouth Digestive daily Health) oral Capsule Aspirin 2020-03 Yes 81mg Take 81 mg Nereyda ey (Aspirin 1-08 by mouth Seybold 81) 81 MG 14:36: daily oral Tablet 01 Delayed Response Magnesium 2020-03 Yes 1 tablet Nereyda ey 250 MG oral 08 with a Seybol d Tablet 14:36: meal 01 Lactobacill 2020-03 Yes 1{capsu Take 1 K elsey us-Inulin 1-08 le} capsule by Dilcia parra (Culturelle 14:36: mouth Digestive daily Health) oral Capsule Aspirin 2020-03 Yes 81mg Take 81 mg Nereyda ey (Aspirin 1-08 by mouth Seybold 81) 81 MG 14:36: daily oral Tablet 01 Delayed Response Magnesium 2020-03 Yes 1 tablet Nereyda ey 250 MG oral 08 with a Seybol d Tablet 14:36: meal 01 Lansoprazol 2020-03 Yes [id number] 30mg Take 1 Kasia e 30 MG 1-08 tablet (30 Seybol d oral Tablet 00:00: mg total) Delayed 00 by mouth Release daily Dispersible Alum & Mag 2020-03 Yes [id number] 15mL Take 15 mL Kasia Hydroxide-S 1-08 by mouth Seyb old imeth 00:00: every 4 to (Alumina-Ma 00 6 hours as gnesia-Rosetta needed thicone) (gas) 200-200-20 MG/5ML oral Suspension Sennosides 2020-03 Yes [id number] 1{capsu Take 1 Kasia (Senna) 8.6 1-08 le} capsule by Se ybold MG oral 00:00: mouth Capsule 00 nightly Celecoxib 2020-03 Yes [id number] 200mg Take 1 K elsey (CeleBREX) 1-08 capsule Seybol d 200 MG oral 00:00: (200 mg Capsule 00 total) by mouth 2 times daily Alum & Mag 2020-03 Yes [id number] 15mL Take 15 mL Kasia Hydroxide-S 1-08 by mouth Seyb old imeth 00:00: every 4 to (Alumina-Ma 00 6 hours as gnesia-Rosetta needed thicone) (gas) 200-200-20 MG/5ML oral Suspension Sennosides 2020-03 Yes [id number] 1{capsu Take 1 Kasia (Senna) 8.6 1-08 le} capsule by Se ybold MG oral 00:00: mouth Capsule 00 nightly Alum & Mag 2020-03 Yes [id number] 15mL Take 15 mL Kasia Hydroxide-S 1-08 by mouth Seyb old imeth 00:00: every 4 to (Alumina-Ma 00 6 hours as gnesia-Rosetta needed thicone) (gas) 200-200-20 MG/5ML oral Suspension Sennosides 2020-03 Yes [id number] 1{capsu Take 1 Kasia (Senna) 8.6 1-08 le} capsule by Se ybold MG oral 00:00: mouth Capsule 00 nightly Metformin 2020-03 Yes 1000mg Take 2 Nereyda ey HCl 500 MG 1-02 tablets Seybol d oral Tablet 00:00: (1,000 mg 00 total) by mouth daily (with breakfast) Metformin 2020-03- No 1000mg Take 2 Killian sey HCl 500 MG 1-02 12-23 tablets Seybo ld oral Tablet 00:00: 00:00 (1,000 mg 00 :00 total) by mouth daily (with breakfast) Famotidine 2020-03 Yes [id number] 20mg Take 1 Kasia (PEPCID) 20 0-28 [id number] tablet (20 Seybold MG oral 00:00: mg total) tablet 00 by mouth 2 times daily Ibuprofen 2020-03 202- No [id number] 800mg Q6H Take 1 Kasia 800 MG oral 0-28 08 [id number] tablet Sey bold Tablet 00:00: 00:00 (800 mg 00 :00 total) by mouth every 6 hours as needed for pain ESTRADIOL 2020-03 Yes Kasia VAGINAL 0.1 0-27 Seybold MG/GM 00:00: vaginal 00 Cream ESTRADIOL 2020-03 Yes Kasia VAGINAL 0.1 0-27 Seybold MG/GM 00:00: vaginal 00 Cream ESTRADIOL 2020-03 Yes Kasia VAGINAL 0.1 0-27 Seybold MG/GM 00:00: vaginal 00 Cream Lactobacill 2020-03 Yes 1{capsu Take 1 K elsey us-Inulin 0-20 le} capsule by Dilcia old (Culturelle 09:08: mouth Digestive 39 daily Health) oral Capsule Aspirin 2020-03 Yes 81mg Take 81 mg Nereyda ey (Aspirin 0-20 by mouth Seybold 81) 81 MG 09:08: daily oral Tablet 39 Delayed Response Metformin 2020-03 Yes 2{tbl} Take 2 Nereyda ey HCl 500 MG 0-20 tablets by Sey bold oral Tablet 09:08: mouth 39 daily (with breakfast) Magnesium 2020-03 Yes 1 tablet Nereyda ey 250 MG oral 0-20 with a Seybol d Tablet 09:08: meal 39 Phenazopyri 2020-03 Yes [id number] 200mg Q.[id number] Take 1 Kasia dine HCl 0-20 [id number] tablet Sey bold 200 MG oral 00:00: 3D (200 mg Tablet 00 total) by mouth 3 times daily as needed for pain Continuous 2020-03 Yes [id number] 1{each} 1 each by Kasia Blood Gluc 0-20 does not Seybo ld Sensor 00:00: apply (FreeStyle 00 route 3 Farhana 2 times Sensor) daily does not apply Misc Phenazopyri 2020-03 Yes [id number] 200mg Q.[id number] Take 1 Kasia dine HCl 0-20 [id number] tablet Sey bold 200 MG oral 00:00: 3D (200 mg Tablet 00 total) by mouth 3 times daily as needed for pain Continuous 2020-03 Yes [id number] 1{each} 1 each by Kasia Blood Gluc 0-20 does not Seybo ld Sensor 00:00: apply (FreeStyle 00 route 3 Farhana 2 times Sensor) daily does not apply Misc Phenazopyri 2020-03 Yes [id number] 200mg Q.[id number] Take 1 Kasia dine HCl 0-20 [id number] tablet Sey bold 200 MG oral 00:00: 3D (200 mg Tablet 00 total) by mouth 3 times daily as needed for pain Continuous 2020-03 Yes [id number] 1{each} 1 each by Kasia Blood Gluc 0-20 does not Seybo ld Sensor 00:00: apply (FreeStyle 00 route 3 Farhana 2 times Sensor) daily does not apply Misc Phenazopyri 2020-03 Yes [id number] 200mg Q.[id number] Take 1 Kasia dine HCl 0-20 [id number] tablet Sey bold 200 MG oral 00:00: 3D (200 mg Tablet 00 total) by mouth 3 times daily as needed for pain Continuous 2020-03 Yes [id number] 1{each} 1 each by Kasia Blood Gluc 0-20 does not Seybo ld Sensor 00:00: apply (FreeStyle 00 route 3 Farhana 2 times Sensor) daily does not apply Misc TRIMETHOPRI 2020-03- No [id number] 1{tbl} Take 1 Kasia M-SULFAMETH 0-20 10-26 tablet by Se nichols OXAZOLE 00:00: 04:59 mouth 2 (Bactrim 00 :00 times DS) 800-160 daily for MG oral 5 days Tablet Magnesium 2020-03 Yes 1 tablet Nereyda ey 250 MG oral 0-12 with a Seybol d Tablet 12:44: meal 08 Ibuprofen-F 2020-03 Yes [id number] 1{tbl} Take 1 Kasia amotidine 0-12 [id number] tablet by Lourdes hall 800-26.6 MG 00:00: mouth 2 oral Tablet 00 times daily Phenazopyri 2020-03 Yes [id number] 200mg Q.[id number] Take 1 Kasia dine HCl 0-12 [id number] tablet Sey bold 200 MG oral 00:00: 3D (200 mg Tablet 00 total) by mouth 3 times daily as needed for pain Continuous 2020-03 Yes [id number] Use as K elsey Blood Gluc 0-12 directed Seybo ld Sensor 00:00: for (FreeStyle 00 continuous Farhana 14 glucose Day Sensor) monitoring does not with Farhana apply Misc sytem Glucose 2020-03 Yes [id number] Use as Nereyda ey Blood 0-12 directed Seybold (FreeStyle 00:00: for Precision 00 continuous Alexey Test) glucose in vitro monitoring Strip with Farhana system Ostomy 2020-03 Yes [id number] Use as Kelse y Supplies 0-12 directed Seybold (Skin Tac 00:00: for Adhesive 00 continuous Barrier glucose Wipe) does monitoring not apply with Farhana Misc system Gabapentin 2020-03 Yes [id number] 300mg Take 1 Kasia 300 MG oral 0-12 [id number] capsule Sey bold Capsule 00:00: (300 mg 00 total) by mouth 3 times daily Ibuprofen-F 2020-03 Yes [id number] 1{tbl} Take 1 Kasia amotidine 0-12 [id number] tablet by Sey bold 800-26.6 MG 00:00: mouth 2 oral Tablet 00 times daily Glucose 2020-03 Yes [id number] Use as Nereyda ey Blood 0-12 directed Seybold (FreeStyle 00:00: for Precision 00 continuous Alexey Test) glucose in vitro monitoring Strip with Farhana system Ostomy 2020-03 Yes [id number] Use as Kelse y Supplies 0-12 directed Seybold (Skin Tac 00:00: for Adhesive 00 continuous Barrier glucose Wipe) does monitoring not apply with Farhana Misc system Gabapentin 2020-03 Yes [id number] 300mg Take 1 Kasia 300 MG oral 0-12 [id number] capsule Sey bold Capsule 00:00: (300 mg 00 total) by mouth 3 times daily Glucose 2020-03 Yes [id number] Use as Nereyda ey Blood 0-12 directed Seybold (FreeStyle 00:00: for Precision 00 continuous Alexey Test) glucose in vitro monitoring Strip with Farhana system Ostomy 2020-03 Yes [id number] Use as Kelse y Supplies 0-12 directed Seybold (Skin Tac 00:00: for Adhesive 00 continuous Barrier glucose Wipe) does monitoring not apply with Farhana Misc system Gabapentin 2020-03 Yes [id number] 300mg Take 1 Kasia 300 MG oral 0-12 [id number] capsule Sey bold Capsule 00:00: (300 mg 00 total) by mouth 3 times daily Glucose 2020-03 Yes [id number] Use as Nereyda ey Blood 0-12 directed Seybold (FreeStyle 00:00: for Precision 00 continuous Alexey Test) glucose in vitro monitoring Strip with Farhana system Ostomy 2020-03 Yes [id number] Use as Kelse y Supplies 0-12 directed Seybold (Skin Tac 00:00: for Adhesive 00 continuous Barrier glucose Wipe) does monitoring not apply with Farhana Misc system Gabapentin 2020-03 Yes [id number] 300mg Take 1 Kasia 300 MG oral 0-12 [id number] capsule Sey bold Capsule 00:00: (300 mg 00 total) by mouth 3 times daily Glucose 2020-03 Yes [id number] Use as Nereyda ey Blood 0-12 directed Seybold (FreeStyle 00:00: for Precision 00 continuous Alexey Test) glucose in vitro monitoring Strip with Farhana system Ostomy 2020-03 Yes [id number] Use as Kelse y Supplies 0-12 directed Seybold (Skin Tac 00:00: for Adhesive 00 continuous Barrier glucose Wipe) does monitoring not apply with Farhana Misc system Gabapentin 2020-03 Yes [id number] 300mg Take 1 Kasia 300 MG oral 0-12 [id number] capsule Sey bold Capsule 00:00: (300 mg 00 total) by mouth 3 times daily Phenazopyri 2020-03- No [id number] 200mg Q.[id number] Take 1 Kasia dine HCl 0-12 10-20 [id number] tablet Se ybold 200 MG oral 00:00: 00:00 3D (200 mg Tablet 00 :00 total) by mouth 3 times daily as needed for pain Continuous 2020-03- No [id number] Use as Kasia Blood Gluc 0-12 10-20 directed Seyb old Sensor 00:00: 00:00 for (FreeStyle 00 :00 continuous Farhana 14 glucose Day Sensor) monitoring does not with Farhana apply Misc sytem Nitrofurant 2020-03- No [id number] 100mg Take 1 Kasia oin Monohyd 0-12 10-18 capsule Seyb old Macro 100 00:00: 04:59 (100 mg MG oral 00 :00 total) by Capsule mouth 2 times daily for 5 days Amlodipine 2020-03 Yes [id number] 5mg Take 1 K elsey Besylate 5 0-04 tablet (5 Seyb old MG oral 00:00: mg total) Tablet 00 by mouth daily Continuous 2020-03 Yes [id number] Change the Kasia Blood Gluc 0-04 sensor Seybold Sensor 00:00: every 14 (FreeStyle 00 days Farhana 14 Day Sensor) does not apply Misc Amlodipine 2020-03 Yes [id number] 5mg Take 1 K elsey Besylate 5 0-04 tablet (5 Seyb old MG oral 00:00: mg total) Tablet 00 by mouth daily Continuous 2020-03 Yes [id number] Change the Kasia Blood Gluc 0-04 sensor Seybold Sensor 00:00: every 14 (FreeStyle 00 days Farhana 14 Day Sensor) does not apply Misc Amlodipine 2020-03 Yes [id number] 5mg Take 1 K elsey Besylate 5 0-04 tablet (5 Seyb old MG oral 00:00: mg total) Tablet 00 by mouth daily Continuous 2020-03 Yes [id number] Change the Kasia Blood Gluc 0-04 sensor Seybold Sensor 00:00: every 14 (FreeStyle 00 days Farhana 14 Day Sensor) does not apply Misc Amlodipine 2020-03 Yes [id number] 5mg Take 1 K elsey Besylate 5 0-04 tablet (5 Seyb old MG oral 00:00: mg total) Tablet 00 by mouth daily Continuous 2020-03 Yes [id number] Change the Kasia Blood Gluc 0-04 sensor Seybold Sensor 00:00: every 14 (FreeStyle 00 days Farhana 14 Day Sensor) does not apply Misc Amlodipine 2020-03 Yes [id number] 5mg Take 1 K elsey Besylate 5 0-04 tablet (5 Seyb old MG oral 00:00: mg total) Tablet 00 by mouth daily Continuous 2020-03 Yes [id number] Change the Kasia Blood Gluc 0-04 sensor Seybold Sensor 00:00: every 14 (FreeStyle 00 days Farhana 14 Day Sensor) does not apply Misc Lansoprazol 2021-0 2021- No 30mg Take 30 mg Kasia e 30 MG 11-28 by mouth Seybold oral Tablet 08:37: 00:00 daily Delayed 37 :00 Release Dispersible Clopidogrel 2020-2020- No 75mg Take 75 mg Kasia Bisulfate 11-28 by mouth Seybo ld 75 MG oral 08:37: 00:00 daily Tablet 37 :00 Ferrous 2020-0 2020- No 325mg Take 325 Nereyda ey Sulfate 325 11-28 mg by Seybol d (65 Fe) MG 08:37: 00:00 mouth oral Tablet 37 :00 daily (with breakfast) Lisinopril 2020-2020- No 20mg Take 20 mg Kasia 20 MG oral 11-28 by mouth Seyb old Tablet 08:37: 00:00 daily 37 :00 Metformin 2020-0 Yes 2{tbl} Take 2 Nereyda ey HCl 500 MG 11-28 tablets by Sey bold oral Tablet 08:25: mouth 24 daily (with breakfast) Metformin 2020- Yes 2{tbl} Take 2 Nereyda ey HCl 500 MG 11-28 tablets by Sey bold oral Tablet 08:25: mouth 24 daily (with breakfast) amLODIPine- 2020-2020- No 1{tbl} Take 1 K elsey Atorvastati 11-28 tablet by Se ybold n 5-10 MG 08:24: 00:00 mouth oral Tablet 49 :00 daily Lactobacill 2020-0 Yes 1{capsu Take 1 K elsey us-Inulin - le} capsule by Dilcia old (Culturelle 08:15: mouth Digestive 47 daily Health) oral Capsule Aspirin 2020- Yes 81mg Take 81 mg Nereyda ey (Aspirin - by mouth Seybold 81) 81 MG 08:15: daily oral Tablet 47 Delayed Response Lactobacill 2020- Yes 1{capsu Take 1 K elsey us-Inulin - le} capsule by Seyb old (Culturelle 08:15: mouth Digestive 47 daily Health) oral Capsule Aspirin 2020-0 Yes 81mg Take 81 mg Nereyda ey (Aspirin -23 by mouth Seybold 81) 81 MG 08:15: daily oral Tablet 47 Delayed Response Lansoprazol 2020- Yes [id number] 30mg Take 1 Kasia e 30 MG 9-23 tablet (30 Seybol d oral Tablet 00:00: mg total) Delayed 00 by mouth Release daily Dispersible Insulin Yes [id number] 20U Inject 20 K elsey Aspart Prot 9-23 units into Se ybold & Aspart 00:00: the skin 2 (NovoLOG 00 times Mix 70/30 daily FlexPen) (before (70-30) 100 meals) UNIT/ML subcutaneou s Suspension Pen-injecto r Glucose Yes [id number] Test 2-3 Ke lsey Blood in 9-23 times per Seybol d vitro Strip 00:00: day 00 Ferrous Yes [id number] 325mg Take 1 Killian sey Sulfate 325 9-23 tablet Seybol d (65 Fe) MG 00:00: (325 mg oral Tablet 00 total) by mouth daily (with breakfast) Lisinopril Yes [id number] 20mg Take 1 K elsey 20 MG oral 9-23 tablet (20 Sey bold Tablet 00:00: mg total) 00 by mouth daily Metoprolol Yes [id number] 100mg Take 1 Kasia Succinate 9-23 tablet Seybold 100 MG oral 00:00: (100 mg TABLET SR 00 total) by 24 HR mouth daily Rosuvastati Yes [id number] 10mg Take 1 Kasia n Calcium 9-23 tablet (10 Seyb old 10 MG oral 00:00: mg total) Tablet 00 by mouth daily Clopidogrel Yes [id number] 75mg Take 1 Kasia Bisulfate 9-23 tablet (75 Seyb old 75 MG oral 00:00: mg total) Tablet 00 by mouth daily Lansoprazol Yes [id number] 30mg Take 1 Kasia e 30 MG 9-23 tablet (30 Seybol d oral Tablet 00:00: mg total) Delayed 00 by mouth Release daily Dispersible Insulin Yes [id number] 20U Inject 20 K elsey Aspart Prot 9-23 units into Se ybold & Aspart 00:00: the skin 2 (NovoLOG 00 times Mix 70/30 daily FlexPen) (before (70-30) 100 meals) UNIT/ML subcutaneou s Suspension Pen-injecto r Glucose Yes [id number] Test 2-3 Ke lsey Blood in 9-23 times per Seybol d vitro Strip 00:00: day 00 Ferrous Yes [id number] 325mg Take 1 Killian sey Sulfate 325 9-23 tablet Seybol d (65 Fe) MG 00:00: (325 mg oral Tablet 00 total) by mouth daily (with breakfast) Lisinopril Yes [id number] 20mg Take 1 K elsey 20 MG oral 9-23 tablet (20 Sey bold Tablet 00:00: mg total) 00 by mouth daily Metoprolol Yes [id number] 100mg Take 1 Kasia Succinate 9-23 tablet Seybold 100 MG oral 00:00: (100 mg TABLET SR 00 total) by 24 HR mouth daily Rosuvastati Yes [id number] 10mg Take 1 Kasia n Calcium 9-23 tablet (10 Seyb old 10 MG oral 00:00: mg total) Tablet 00 by mouth daily Clopidogrel Yes [id number] 75mg Take 1 Kasia Bisulfate 9-23 tablet (75 Seyb old 75 MG oral 00:00: mg total) Tablet 00 by mouth daily Insulin Yes [id number] 20U Inject 20 K elsey Aspart Prot 9-23 units into Se ybold & Aspart 00:00: the skin 2 (NovoLOG 00 times Mix 70/30 daily FlexPen) (before (70-30) 100 meals) UNIT/ML subcutaneou s Suspension Pen-injecto r Glucose Yes [id number] Test 2-3 [place] Blood in - times per Seybol d vitro Strip 00:00: day 00 Ferrous Yes [id number] 325mg Take 1 Killian sey Sulfate 325 9-23 tablet Seybol d (65 Fe) MG 00:00: (325 mg oral Tablet 00 total) by mouth daily (with breakfast) Lisinopril Yes [id number] 20mg Take 1 K elsey 20 MG oral 9-23 tablet (20 Sey bold Tablet 00:00: mg total) 00 by mouth daily Metoprolol Yes [id number] 100mg Take 1 Kasia Succinate 9-23 tablet Seybold 100 MG oral 00:00: (100 mg TABLET SR 00 total) by 24 HR mouth daily Rosuvastati Yes [id number] 10mg Take 1 Kasia n Calcium 9-23 tablet (10 Seyb old 10 MG oral 00:00: mg total) Tablet 00 by mouth daily Clopidogrel Yes [id number] 75mg Take 1 [place] Bisulfate 9-23 tablet (75 Seyb old 75 MG oral 00:00: mg total) Tablet 00 by mouth daily Insulin Yes [id number] 20U Inject 20 K elsey Aspart Prot 9-23 units into Se ybold & Aspart 00:00: the skin 2 (NovoLOG 00 times Mix 70/30 daily FlexPen) (before (70-30) 100 meals) UNIT/ML subcutaneou s Suspension Pen-injecto r Glucose Yes [id number] Test 2-3 [place] Blood in 11-28 times per Seybol d vitro Strip 00:00: day 00 Ferrous Yes [id number] 325mg Take 1 Killian sey Sulfate 325 9-23 tablet Seybol d (65 Fe) MG 00:00: (325 mg oral Tablet 00 total) by mouth daily (with breakfast) Lisinopril Yes [id number] 20mg Take 1 K elsey 20 MG oral 9-23 tablet (20 Sey bold Tablet 00:00: mg total) 00 by mouth daily Metoprolol Yes [id number] 100mg Take 1 [place]asia Succinate 9-23 tablet Seybold 100 MG oral 00:00: (100 mg TABLET SR 00 total) by 24 HR mouth daily Rosuvastati Yes [id number] 10mg Take 1 Kasia n Calcium 9-23 tablet (10 Seyb old 10 MG oral 00:00: mg total) Tablet 00 by mouth daily Clopidogrel Yes [id number] 75mg Take 1 [place]asia Bisulfate 9-23 tablet (75 Seyb old 75 MG oral 00:00: mg total) Tablet 00 by mouth daily Insulin Yes [id number] 20U Inject 20 K elsey Aspart Prot 9-23 units into Se ybold & Aspart 00:00: the skin 2 (NovoLOG 00 times Mix 70/30 daily FlexPen) (before (70-30) 100 meals) UNIT/ML subcutaneou s Suspension Pen-injecto r Glucose Yes [id number] Test 2-3 [place] Blood in 9-23 times per Seybol d vitro Strip 00:00: day 00 Ferrous Yes [id number] 325mg Take 1 [place] sey Sulfate 325 9-23 tablet Seybol d (65 Fe) MG 00:00: (325 mg oral Tablet 00 total) by mouth daily (with breakfast) Lisinopril Yes [id number] 20mg Take 1 K elsey 20 MG oral 9-23 tablet (20 Sey bold Tablet 00:00: mg total) 00 by mouth daily Metoprolol Yes [id number] 100mg Take 1 [place]asia Succinate 9-23 tablet Seybold 100 MG oral 00:00: (100 mg TABLET SR 00 total) by 24 HR mouth daily Rosuvastati Yes [id number] 10mg Take 1 Kasia n Calcium 9-23 tablet (10 Seyb old 10 MG oral 00:00: mg total) Tablet 00 by mouth daily Clopidogrel Yes [id number] 75mg Take 1 [place]asia Bisulfate 9-23 tablet (75 Seyb old 75 MG oral 00:00: mg total) Tablet 00 by mouth daily Lansoprazol Yes [id number] 30mg Take 1 Kasia e 30 MG 9-23 tablet (30 Seybol d oral Tablet 00:00: mg total) Delayed 00 by mouth Release daily Dispersible Insulin Yes [id number] 20U Inject 20 K elsey Aspart Prot 9-23 units into Se ybold & Aspart 00:00: the skin 2 (NovoLOG 00 times Mix 70/30 daily FlexPen) (before (70-30) 100 meals) UNIT/ML subcutaneou s Suspension Pen-injecto r Glucose Yes [id number] Test 2-3 [place] Blood in 11-28 times per Seybol d vitro Strip 00:00: day 00 Ferrous Yes [id number] 325mg Take 1 Killian sey Sulfate 325 9-23 tablet Seybol d (65 Fe) MG 00:00: (325 mg oral Tablet 00 total) by mouth daily (with breakfast) Lisinopril Yes [id number] 20mg Take 1 K elsey 20 MG oral 9-23 tablet (20 Sey bold Tablet 00:00: mg total) 00 by mouth daily Metoprolol Yes [id number] 100mg Take 1 [place] Succinate 9-23 tablet Seybold 100 MG oral 00:00: (100 mg TABLET SR 00 total) by 24 HR mouth daily Rosuvastati Yes [id number] 10mg Take 1 [place] n Calcium 9-23 tablet (10 Seyb old 10 MG oral 00:00: mg total) Tablet 00 by mouth daily Clopidogrel Yes [id number] 75mg Take 1 [place] Bisulfate 9-23 tablet (75 Seyb old 75 MG oral 00:00: mg total) Tablet 00 by mouth daily Lansoprazol 2020- No [id number] 30mg Take 1 Kasia e 30 MG 9-23 11-08 tablet (30 Seybo ld oral Tablet 00:00: 00:00 mg total) Delayed 00 :00 by mouth Release daily Dispersible Metoprolol 2020- No 100mg Take 1 Killian sey Succinate 7-14 -23 tablet Seybold 100 MG oral 00:00: 00:00 (100 mg TABLET SR 00 :00 total) by 24 HR mouth daily Rosuvastati 2020- No 10mg Take 1 Killian sey n Calcium 7-14 -23 tablet (10 Sey bold 10 MG oral 00:00: 00:00 mg total) Tablet 00 :00 by mouth daily Continuous Yes Change the K else Blood Gluc 6-02 sensor Seybold Sensor 00:00: every 14 (FreeStyle 00 days Farhana 14 Day Sensor) does not apply Misc naproxen 2019-03 Yes [id number] 550mg Take 1 Un jair sodium 1-12 tablet by ity of (ANAPROX 00:00: mouth 2 [place] DS) 550 mg 00 (two) Medical tablet times Branch daily with meals. methylPREDN 2019-03 Yes [id number] Take by Univers ISolone 1-12 mouth ity of (MEDROL, 00:00: SEE-INSTRU [place] as OSEI,) 4 mg 00 CTIONS. Medica l tablets follow Branch package directions naproxen 2019-03 Yes [id number] 550mg Take 1 Un jair sodium 1-12 tablet by ity of (ANAPROX 00:00: mouth 2 [place] DS) 550 mg 00 (two) Medical tablet times Branch daily with meals. methylPREDN 2019-03 Yes [id number] Take by Univers ISolone 1-12 mouth ity of (MEDROL, 00:00: SEE-INSTRU [place] as OSEI,) 4 mg 00 CTIONS. Medica l tablets follow Branch package directions naproxen 2019-03 Yes [id number] 550mg Take 1 Un jair sodium 1-12 tablet by ity of (ANAPROX 00:00: mouth 2 [place] DS) 550 mg 00 (two) Medical tablet times Branch daily with meals. methylPREDN 2019-03 Yes [id number] Take by Univers ISolone 1-12 mouth ity of (MEDROL, 00:00: SEE-INSTRU [place] as OSEI,) 4 mg 00 CTIONS. Medica l tablets follow Branch package directions naproxen 2019-03 Yes [id number] 550mg Take 1 Un jair sodium 1-12 tablet by ity of (ANAPROX 00:00: mouth 2 [place] DS) 550 mg 00 (two) Medical tablet times Branch daily with meals. methylPREDN 2019-03 Yes [id number] Take by Univers ISolone -12 mouth ity of (MEDROL, 00:00: SEE-INSTRU [place] OSEI,) 4 mg 00 CTIONS. Medica l tablets follow Branch package directions naproxen 2019-03 Yes [id number] 550mg Take 1 Un jair sodium 1-12 tablet by ity of (ANAPROX 00:00: mouth 2 [place] DS) 550 mg 00 (two) Medical tablet times Branch daily with meals. methylPREDN 2019-03 Yes [id number] Take by Univers ISolone -12 mouth ity of (MEDROL, 00:00: SEE-INSTRU [place] as OSEI,) 4 mg 00 CTIONS. Medica l tablets follow Branch package directions naproxen 2019-03 Yes [id number] 550mg Take 1 Un jair sodium 1-12 tablet by ity of (ANAPROX 00:00: mouth 2 [place] DS) 550 mg 00 (two) Medical tablet times Branch daily with meals. methylPREDN 2019-03 Yes [id number] Take by Univers ISolone 1-12 mouth ity of (MEDROL, 00:00: SEE-INSTRU [place] as OSEI,) 4 mg 00 CTIONS. Medica l tablets follow Branch package directions methocarbam 2019-03 2020- No [id number] 500mg Take 1 Univers oL 500 mg 1-12 11-18 tablet by ity of tablet 00:00: 05:59 mouth 3 [place] 00 :00 (three) Medical times Branch daily for 5 days. methocarbam 2020-1 2020- No [id number] 500mg Take 1 Univers oL 500 mg -02 15-18 tablet by ity of tablet 00:00: 05:59 mouth 3 [place] 00 :00 (three) Medical times Branch daily for 5 days. LISINOPRIL 2020-0 Yes None Univers 10 MG ORAL 8-08 Entered ity of TAB 18:30: [place] 37 Medical Branch METFORMIN 2020-0 Yes 500mg Take 500 Uni vers HCL 8-08 mg by ity of (METFORMIN 18:30: mouth 2 [place]AL[place] 37 (two) Medical times Branch daily. PANTOPRAZOL 2020-0 Yes Take by Un jair E SODIUM 8-08 mouth. ity of (PROTONIX 18:30: [place] ORAL) 37 Medical Branch CLOPIDOGREL 2020-0 Yes Take by Un jair BISULFATE 8-08 mouth. ity of (PLAVIX 18:30: [place] ORAL) 37 Medical Branch INSULIN 2020-0 Yes inject Univers LISPRO 8-08 under the ity of (HUMALOG 18:30: skin. [facility]) 37 Medical Branch EMPAGLIFLOZ 2020-0 Yes Take by Un jair IN 8-08 mouth. ity of (JARDIANCE 18:30: [place] ORAL) 37 Medical Branch LISINOPRIL 2020-0 Yes None Univers 10 MG ORAL 8-08 Entered ity of TAB 18:30: [place] 37 Medical Branch METFORMIN 2020-0 Yes 500mg Take 500 Uni vers HCL 8-08 mg by ity of (METFORMIN 18:30: mouth 2 [place] 37 (two) Medical times Branch daily. PANTOPRAZOL 2020-0 Yes Take by Un jair E SODIUM 8-08 mouth. ity of (PROTONIX 18:30: [place] ORAL) 37 Medical Branch CLOPIDOGREL 2020-0 Yes Take by Un jair BISULFATE 8-08 mouth. ity of (PLAVIX 18:30: [place] ORAL) 37 Medical Branch INSULIN 2020-0 Yes inject Univers LISPRO 8-08 under the ity of (HUMALOG 18:30: skin. [facility]) 37 Medical Branch EMPAGLIFLOZ 2020-0 Yes Take by Un jair IN 8-08 mouth. ity of (JARDIANCE 18:30: [place] ORAL) 37 Medical Branch LISINOPRIL 2020-0 Yes None Univers 10 MG ORAL 8-08 Entered ity of TAB 18:30: [place] [id number] Medical Branch METFORMIN 2020-0 Yes 500mg Take 500 Uni vers HCL 8-08 mg by ity of (METFORMIN 18:30: mouth 2 [place] 37 (two) Medical times Branch daily. PANTOPRAZOL 2020-0 Yes Take by Un jair E SODIUM 8-08 mouth. ity of (PROTONIX 18:30: [place] ORAL) 37 Medical Branch CLOPIDOGREL 2020-0 Yes Take by Un jair BISULFATE 8-08 mouth. ity of (PLAVIX 18:30: [place] ORAL) 37 Medical Branch INSULIN 2020-0 Yes inject Univers LISPRO 8-08 under the ity of (HUMALOG 18:30: skin. [facility]) 37 Medical Branch EMPAGLIFLOZ 2020-0 Yes Take by Un jair IN 8-08 mouth. ity of (JARDIANCE 18:30: [place] ORAL) Medical Branch LISINOPRIL 2020-0 Yes None Univers 10 MG ORAL 8-08 Entered ity of TAB 18:30: [place] [id number] Medical Branch METFORMIN 2020-0 Yes 500mg Take 500 Uni vers HCL 8-08 mg by ity of (METFORMIN 18:30: mouth 2 [place] 37 (two) Medical times Branch daily. PANTOPRAZOL 2020-0 Yes Take by Un jair E SODIUM 8-08 mouth. ity of (PROTONIX 18:30: [place] ORAL) Medical Branch CLOPIDOGREL 2020-0 Yes Take by Un jair BISULFATE 8-08 mouth. ity of (PLAVIX 18:30: [place] ORAL) 37 Medical Branch INSULIN 2020-0 Yes inject Univers LISPRO 8-08 under the ity of (HUMALOG 18:30: skin. [facility]) Medical Branch EMPAGLIFLOZ 2020-0 Yes Take by Un jair IN 8-08 mouth. ity of (JARDIANCE 18:30: [place] ORAL) Medical Branch LISINOPRIL 2020-0 Yes None Univers 10 MG ORAL 8-08 Entered ity of TAB 18:30: [place] [id number] Medical Branch METFORMIN 2020-0 Yes 500mg Take 500 Uni vers HCL 8-08 mg by ity of (METFORMIN 18:30: mouth 2 [place] 37 (two) Medical times Branch daily. PANTOPRAZOL 2020-0 Yes Take by Un jair E SODIUM 8-08 mouth. ity of (PROTONIX 18:30: [place] ORAL) 37 Medical Branch CLOPIDOGREL 2020-0 Yes Take by Un jair BISULFATE 8-08 mouth. ity of (PLAVIX 18:30: [place] ORAL) 37 Medical Branch INSULIN 2020-0 Yes inject Univers LISPRO 8-08 under the ity of (HUMALOG 18:30: skin. [place] SD) 37 Medical Branch EMPAGLIFLOZ 2020-0 Yes Take by Un jair IN 8-08 mouth. ity of (JARDIANCE 18:30: [place] ORAL) 37 Medical Branch LISINOPRIL 2020-0 Yes None Univers 10 MG ORAL 8-08 Entered ity of TAB 18:30: [place] 37 Medical Branch METFORMIN 2020-0 Yes 500mg Take 500 Uni vers HCL 8-08 mg by ity of (METFORMIN 18:30: mouth 2 [place] 37 (two) Medical times Branch daily. PANTOPRAZOL 2020-0 Yes Take by Un jair E SODIUM 8-08 mouth. ity of (PROTONIX 18:30: [place] ORAL) 37 Medical Branch CLOPIDOGREL 2020-0 Yes Take by Un jair BISULFATE 8-08 mouth. ity of (PLAVIX 18:30: [place] ORAL) 37 Medical Branch INSULIN 2020-0 Yes inject Univers LISPRO 8-08 under the ity of (HUMALOG 18:30: skin. [facility]) 37 Medical Branch EMPAGLIFLOZ 2020-0 Yes Take by Un jair IN 8-08 mouth. ity of (JARDIANCE 18:30: [place] ORAL) 37 Medical Branch LISINOPRIL 2020-0 Yes None Univers 10 MG ORAL 8-08 Entered ity of TAB 18:30: [place] 37 Medical Branch METFORMIN 2020-0 Yes 500mg Take 500 Uni vers HCL 8-08 mg by ity of (METFORMIN 18:30: mouth 2 [place] 37 (two) Medical times Branch daily. PANTOPRAZOL 2020-0 Yes Take by Un jair E SODIUM 8-08 mouth. ity of (PROTONIX 18:30: [place] ORAL) 37 Medical Branch CLOPIDOGREL 2020-0 Yes Take by Un jair BISULFATE 8-08 mouth. ity of (PLAVIX 18:30: [place] ORAL) 37 Medical Branch INSULIN 2020-0 Yes inject Univers LISPRO 8-08 under the ity of (HUMALOG 18:30: skin. [facility]) 37 Medical Branch EMPAGLIFLOZ 2020-0 Yes Take by Un jair IN 8-08 mouth. ity of (JARDIANCE 18:30: [place] ORAL) 37 Medical Branch LISINOPRIL 2020-0 Yes None Univers 10 MG ORAL 8-08 Entered ity of TAB 18:30: [place] Medical Branch METFORMIN 2020-0 Yes 500mg Take 500 Uni vers HCL 8-08 mg by ity of (METFORMIN 18:30: mouth 2 [place]AL[place] 37 (two) Medical times Branch daily. PANTOPRAZOL 2020-0 Yes Take by Un jair E SODIUM 8-08 mouth. ity of (PROTONIX 18:30: [place] ORAL) 37 Medical Branch CLOPIDOGREL 2020-0 Yes Take by Un jair BISULFATE 8-08 mouth. ity of (PLAVIX 18:30: [place] ORAL) 37 Medical Branch INSULIN 2020-0 Yes inject Univers LISPRO 8-08 under the ity of (HUMALOG 18:30: skin. [facility]) 37 Medical Branch EMPAGLIFLOZ 2020-0 Yes Take by Un jair IN 808 mouth. ity of (JARDIANCE 18:30: [place] ORAL) Medical Branch pantoprazol 2020-0 Yes 40mg 40 mg, Univ ers e 8-08 Oral, ity of (PROTONIX) 14:00: DAILY, [place] EC tablet 00 First dose Medi ranjan 40 mg on Sat Branch 10/14/19 at 0900, Until Discontinu ed, Routine LISINOPRIL 2020-0 Yes None Univers 10 MG ORAL 808 Entered ity of TAB 13:30: [place] [address] Medical Branch METFORMIN 2020-0 Yes 500mg Take 500 Uni vers HCL 8-08 mg by ity of (METFORMIN 13:30: mouth 2 [place]AL[place] 37 (two) Medical times Branch daily. PANTOPRAZOL 2020-0 Yes Take by Un jair E SODIUM 8-08 mouth. ity of (PROTONIX 13:30: [place] ORAL) 37 Medical Branch CLOPIDOGREL 2020-0 Yes Take by Un jair BISULFATE 8-08 mouth. ity of (PLAVIX 13:30: [place] ORAL) 37 Medical Branch INSULIN 2020-0 Yes inject Univers LISPRO 8-08 under the ity of (HUMALOG 13:30: skin. [facility]) 37 Medical Branch EMPAGLIFLOZ 2020-0 Yes Take by Un jair IN 8-08 mouth. ity of (JARDIANCE 13:30: [place] ORAL) 37 Medical Branch LISINOPRIL 2020-0 Yes None Univers 10 MG ORAL 8-08 Entered ity of TAB 13:30: [place] 37 Medical Branch METFORMIN 2020-0 Yes 500mg Take 500 Uni vers HCL 8-08 mg by ity of (METFORMIN 13:30: mouth 2 [place] ORAL[place] 37 (two) Medical times Branch daily. PANTOPRAZOL 2020-0 Yes Take by Un jair E SODIUM 8-08 mouth. ity of (PROTONIX 13:30: [place] ORAL) 37 Medical Branch CLOPIDOGREL 2020-0 Yes Take by Un jair BISULFATE 8-08 mouth. ity of (PLAVIX 13:30: [place] ORAL) 37 Medical Branch INSULIN 2020-0 Yes inject Univers LISPRO 8-08 under the ity of (HUMALOG 13:30: skin. [facility]) 37 Medical Branch EMPAGLIFLOZ 2020-0 Yes Take by Un jair IN 8-08 mouth. ity of (JARDIANCE 13:30: [place] ORAL) 37 Medical Branch LISINOPRIL 2020-0 Yes None Univers 10 MG ORAL 8-08 Entered ity of TAB 13:30: [place] 37 Medical Branch METFORMIN 2020-0 Yes 500mg Take 500 Uni vers HCL 8-08 mg by ity of (METFORMIN 13:30: mouth 2 [place] ORAL[place] 37 (two) Medical times Branch daily. PANTOPRAZOL 2020-0 Yes Take by Un jair E SODIUM 8-08 mouth. ity of (PROTONIX 13:30: [place] ORAL) 37 Medical Branch CLOPIDOGREL 2020-0 Yes Take by Un jair BISULFATE 8-08 mouth. ity of (PLAVIX 13:30: [place] ORAL) 37 Medical Branch INSULIN 2020-0 Yes inject Univers LISPRO 8-08 under the ity of (HUMALOG 13:30: skin. [facility]) 37 Medical Branch EMPAGLIFLOZ 2020-0 Yes Take by Un jair IN 8-08 mouth. ity of (JARDIANCE 13:30: [place] ORAL) 37 Medical Branch insulin 2020-0 2020- No 15U 15 Units, Univ ers aspart 8- 08-08 Subcutaneo ity of RAPID 03:45: 02:37 , ONCE, [place] (NOVOLOG 00 :00 1 dose, Medical U-100 10/13/19 Branch INSULIN at 2245, ASPART) Routine injection 15 Units Sliding 2020-0 Yes Subcutaneo Univ ers Scale 8-08 us, TID ity of Insulin - 02:00: MEALS+HS, [place] as Aspart 00 First dose Medical (NOVOLOG) + (after Branch Fsbg last Testing modificati on) on Wed10/13/19 at 2100, Until Discontinu ed, Routine ibuprofen 2020-0 Yes [id number] 400mg Take 1 U nivers 400 mg 8-08 tablet by ity of tablet 00:00: mouth [place] 00 every 6 Medical (six) Branch hours as needed for Pain (scale 4-6). traMADol 50 2020-0 Yes [id number] 50mg Take 1 Univ ers mg tablet 8-08 tablet by ity o f 00:00: mouth [place] 00 every 6 Medical (six) Branch hours as needed for Pain (scale 7-10). Indication s: acute pain, chronic pain ibuprofen 2020-0 Yes [id number] 400mg Take 1 U nivers 400 mg 8-08 tablet by ity of tablet 00:00: mouth [place] 00 every 6 Medical (six) Branch hours as needed for Pain (scale 4-6). traMADol 50 2020-0 Yes [id number] 50mg Take 1 Univ ers mg tablet 8-08 tablet by ity o f 00:00: mouth [place] 00 every 6 Medical (six) Branch hours as needed for Pain (scale 7-10). Indication s: acute pain, chronic pain ibuprofen 2020-0 Yes [id number] 400mg Take 1 U nivers 400 mg 8-08 tablet by ity of tablet 00:00: mouth [place] 00 every 6 Medical (six) Branch hours as needed for Pain (scale 4-6). traMADol 50 2020-0 Yes [id number] 50mg Take 1 Univ ers mg tablet 8-08 tablet by ity o f 00:00: mouth [place] 00 every 6 Medical (six) Branch hours as needed for Pain (scale 7-10). Indication s: acute pain, chronic pain ibuprofen 2020-0 Yes [id number] 400mg Take 1 U nivers 400 mg 8-08 tablet by ity of tablet 00:00: mouth [place] 00 every 6 Medical (six) Branch hours as needed for Pain (scale 4-6). traMADol 50 2020-0 Yes [id number] 50mg Take 1 Univ ers mg tablet 8-08 tablet by ity o f 00:00: mouth [place] 00 every 6 Medical (six) Branch hours as needed for Pain (scale 7-10). Indication s: acute pain, chronic pain ibuprofen 2020-0 Yes [id number] 400mg Take 1 U nivers 400 mg 8-08 tablet by ity of tablet 00:00: mouth [place] 00 every 6 Medical (six) Branch hours as needed for Pain (scale 4-6). traMADol 50 2020-0 Yes [id number] 50mg Take 1 Univ ers mg tablet 8-08 tablet by ity o f 00:00: mouth [place] 00 every 6 Medical (six) Branch hours as needed for Pain (scale 7-10). Indication s: acute pain, chronic pain ibuprofen 2020-0 Yes [id number] 400mg Take 1 U nivers 400 mg 8-08 tablet by ity of tablet 00:00: mouth [place] 00 every 6 Medical (six) Branch hours as needed for Pain (scale 4-6). traMADol 50 2020-0 Yes [id number] 50mg Take 1 Univ ers mg tablet 8-08 tablet by ity o f 00:00: mouth [place] 00 every 6 Medical (six) Branch hours as needed for Pain (scale 7-10). Indication s: acute pain, chronic pain ibuprofen 2020-0 Yes [id number] 400mg Take 1 U nivers 400 mg 8-08 tablet by ity of tablet 00:00: mouth [place] 00 every 6 Medical (six) Branch hours as needed for Pain (scale 4-6). traMADol 50 2020-0 Yes [id number] 50mg Take 1 Univ ers mg tablet 8-08 tablet by ity o f 00:00: mouth [place] 00 every 6 Medical (six) Branch hours as needed for Pain (scale 7-10). Indication s: acute pain, chronic pain ibuprofen 2020-0 Yes [id number] 400mg Take 1 U nivers 400 mg 8-08 tablet by ity of tablet 00:00: mouth [place] 00 every 6 Medical (six) Branch hours as needed for Pain (scale 4-6). traMADol 50 2020-0 Yes [id number] 50mg Take 1 Univ ers mg tablet 8-08 tablet by ity o f 00:00: mouth [place] 00 every 6 Medical (six) Branch hours as needed for Pain (scale 7-10). Indication s: acute pain, chronic pain ibuprofen 2020-0 Yes [id number] 400mg Take 1 U nivers 400 mg 8-08 tablet by ity of tablet 00:00: mouth [place] 00 every 6 Medical (six) Branch hours as needed for Pain (scale 4-6). traMADol 50 2020-0 Yes [id number] 50mg Take 1 Univ ers mg tablet 8-08 tablet by ity o f 00:00: mouth [place] 00 every 6 Medical (six) Branch hours as needed for Pain (scale 7-10). Indication s: acute pain, chronic pain ibuprofen 2020-0 Yes [id number] 400mg Take 1 U nivers 400 mg 8-08 tablet by ity of tablet 00:00: mouth [place] 00 every 6 Medical (six) Branch hours as needed for Pain (scale 4-6). traMADol 50 2020-0 Yes [id number] 50mg Take 1 Univ ers mg tablet 8-08 tablet by ity o f 00:00: mouth [place] 00 every 6 Medical (six) Branch hours as needed for Pain (scale 7-10). Indication s: acute pain, chronic pain ibuprofen 2020-0 Yes [id number] 400mg Take 1 U nivers 400 mg 8-08 tablet by ity of tablet 00:00: mouth [place] 00 every 6 Medical (six) Branch hours as needed for Pain (scale 4-6). traMADol 50 2020-0 Yes [id number] 50mg Take 1 Univ ers mg tablet 8-08 tablet by ity o f 00:00: mouth [place] 00 every 6 Medical (six) Branch hours as needed for Pain (scale 7-10). Indication s: acute pain, chronic pain proMETHazin 2019-0 2020- No 12.5mg 12.5 mg, Univers e 10-12 IV ity of (PHENERGAN) 17:30: 17:18 Piggyback, [place] 12.5 mg in 00 :00 ONCE, 1 Medica l NaCl 0.9% dose, Fri Branc h (NS) 50 mL 10/13/19 at IV 1230, piggyback Routine, PACU FENTanyl PF 2019-0 2020- No 25ug 25 mcg, Un jair (SUBLIMAZE 10-12 Slow IV ity o f (PF)) 17:02: 18:22 Push, [place] injection 44 :01 Q5MIN PRN, Medi ranjan 25 mcg 4 doses, Branch Starting Wed10/13/19 at 1202, Until Wed10/13/19 at 1322, Routine, Pain (scale 4-6), PACU ibuprofen 2020-0 Yes 400mg 400 mg, Univ ers (IBU) 8-07 Oral, TID ity of tablet 400 17:00: MEALS, [place] mg 00 First dose Medical on Wed Branch 10/13/19 at 1200, Until Discontinu ed, Routine acetaminoph 2020-0 Yes 500mg 500 mg, Un jair en 8-07 Oral, ity of (TYLENOL) 16:24: Q6HPRN, [place] tablet 500 29 Starting Medic al mg Wed10/13/19 Branch at 1124, Until Discontinu ed, Routine, Pain (scale 1-3) HYDROcodone 2020-0 Yes 1{tbl} 1 tablet, Univers -acetaminop 10-12 Oral, ity of hen (NORCO 16:24: Q6HPRN, [place] 5) 5-325 mg 13 Starting Medi ranjan tablet 1 Wed10/13/19 Branc h tablet at 1124, Until Discontinu ed, Routine, Pain (scale 4-6) lactated 2020-0 2020- No 1000mL at 125 [facility] ers ringers IV 10-11-07 mL/hr, ity of infusion 22:09: 16:23 1,000 mL, [place] as 1,000 mL 00 :46 IV Medical Infusion, Branch CONTINUOUS , Starting Wed10/12/19 at 1715, Until Wed10/13/19 at 1123, Routine lisinopril 2020-0 Yes 10mg 10 mg, Unive rs (PRINIVIL,Z 10-11 Oral, ity of ESTRIL) 14:00: DAILY, [place] tablet 10 00 First dose Medi ranjan mg on Wed Branch 10/12/19 at 0900, Until Discontinu ed, Routine enoxaparin 2020-0 Yes 40mg 40 mg, Unive rs (LOVENOX) 10-11 Subcutaneo ity of injection 14:00: [place], DAILY, [place] 40 mg 00 First dose Medical on Wed Branch 10/12/19 at 0900, Until Discontinu ed, Routine Sliding 2020-0 2020- No Subcutaneo Uni vers Scale 10-11 08-07 us, Q6H, ity of Insulin - 11:00: 23:08 First dose [place] Aspart 00 :19 on Wed Medical (NOVOLOG) + 10/12/19 at [facility] Fsbg 0600, Testing Until Discontinu ed, Routine NaCl 0.9% 2020-0 2020- No 1000mL at 100 Uni vers (NS) IV 10-11 08-06 mL/hr, IV ity of infusion 09:00: 10:38 Infusion, [place] as 1,000 mL 00 :00 ONCE, 1 Medical dose, [place] Branch 10/12/19 at 0400, Routine nitroglycer 2020-0 Yes .4mg 0.4 mg, Uni vers in 10-11 Sublingual ity of (NITROSTAT) 08:53: , Q5MIN [place] as sublingual 57 PRN, Medical tablet 0.4 Starting Branc h mg [place] 10/12/19 at 0353, Until Discontinu ed, Routine, Chest pain glucagon 2020-0 Yes 1mg 1 mg, Univers (GLUCAGEN 10-11 Intramuscu ity of DIAGNOSTIC 08:40: [place], PRN, [place] KIT) 35 Starting Medical injection 1 [place] 10/12/19 Br anch mg at 0340, Until Discontinu ed, LISA, Blood Glucose < or = 70 mg/dL and patient is unable to swallow or has mental changes. dextrose 50 2020-0 Yes 25mL 25 mL, Univ ers % in water 10-11 Slow IV ity of (D50W) 08:40: Push, PRN, [place] injection 35 Starting Medica l 25 mL [place] 10/12/19 Branch at 0340, Until Discontinu ed, LISA, Blood Glucose < or = 70 mg/dL and patient is unable to swallow or has mental status changes. ondansetron 2019-0 Yes 4mg 4 mg, Slow Univers (ZOFRAN 10-11 IV Push, ity of (PF)) 07:57: Q6HPRN, [place] injection 4 24 Starting Medi ranjan mg [place] 10/12/19 Branch at 0257, Until Discontinu ed, Routine, Nausea and Vomiting (N/V) iohexol 2020-0 2020- No 120mL 120 mL, Unive rs (OMNIPAQUE 10-11 Intravenou it y of 350 05:00: 05:00 s, ONCE, 1 [place] BULK-150 00 :00 dose, [place] Medica l mL) 10/12/19 at Branch injection 0000, 120 mL Routine NaCl 0.9% 2020-0 2020- No 1000mL at 999 Uni vers (NS) IV 10-11 08-06 mL/hr, ity of infusion 04:45: 22:09 Intravenou [place] 1,000 mL 00 :17 s, Medical CONTINUOUS Branch , Starting 10/11/19 at 2345, Until [place] 10/12/19 at 1709, Routine Nitrofurant Nitrofurant 2019- No [place] [address] [facility] Monohyd oin Monohyd 3-06 11- [place] at bedtime [facility] - Macro Macro 00:00: 00:00 with food [facility] 00 :[facility] Cefdinir Cefdinir 2019- No Michelle as [facility] 3-04 03-09 [place] [facility] PANTOPRAZOL Yes Take by Un jair E SODIUM 5-05 mouth. ity of (PROTONIX 19:02: [place] ORAL) [facility] CLOPIDOGREL Yes Take by Un jair BISULFATE 5-05 mouth. ity of (PLAVIX 19:02: [place] ORAL) [facility] INSULIN Yes inject Univers LISPRO 5-05 under the ity of (HUMALOG 19:02: skin. [place]) 43 [facility] EMPAGLIFLOZ Yes Take by Un jair IN 5-05 mouth. ity of (JARDIANCE 19:02: [place] ORAL) 43 [facility] PANTOPRAZOL Yes Take by Un jair E SODIUM 5-05 mouth. ity of (PROTONIX 19:02: [place] ORAL) 43 [facility] CLOPIDOGREL Yes Take by Un jair BISULFATE 5-05 mouth. ity of (PLAVIX 19:02: [place] ORAL) 43 [facility] INSULIN Yes inject Univers LISPRO 5-05 under the ity of (HUMALOG 19:02: skin. [place]) 43 [facility] EMPAGLIFLOZ Yes Take by Un jair IN 5-05 mouth. ity of (JARDIANCE 19:02: [place] ORAL) 43 [facility] PANTOPRAZOL Yes Take by Un jair E SODIUM 5-05 mouth. ity of (PROTONIX 19:02: [place] ORAL) 43 [facility] CLOPIDOGREL Yes Take by Un jair BISULFATE 5-05 mouth. ity of (PLAVIX 19:02: [place] ORAL) 43 [facility] INSULIN 2018-0 Yes inject Univers LISPRO 5-05 under the ity of (HUMALOG 19:02: skin. [place]) 43 [facility] EMPAGLIFLOZ 2018-0 Yes Take by Un jair IN 5-05 mouth. ity of (JARDIANCE 19:02: [place] ORAL) 43 [facility] methocarbam 2018-0 Yes 500mg Take 1 Uni vers ol 5-05 tablet by ity of (ROBAXIN) 00:00: mouth 4 [place] 500 mg 00 (four) Medical tablet times Branch daily. methocarbam 2018-0 Yes 500mg Take 1 Uni vers ol 5-05 tablet by ity of (ROBAXIN) 00:00: mouth 4 [place] 500 mg 00 (four) Medical tablet times Branch daily. acetaminoph 2018-0 Yes 1{tbl} Take 1 Un jair en-codeine 5-05 tablet by ity of 300-30 mg 00:00: mouth [place] tablet 00 every 4 Medical (four) Branch hours as needed for Pain (scale 4-6). methocarbam 2018-0 Yes 500mg Take 1 Uni vers ol 5-05 tablet by ity of (ROBAXIN) 00:00: mouth 4 [place] 500 mg 00 (four) Medical tablet times Branch daily. methocarbam 2018-0 Yes 500mg Take 1 Uni vers ol 5-05 tablet by ity of (ROBAXIN) 00:00: mouth 4 [place] 500 mg 00 (four) Medical tablet times Branch daily. methocarbam 2018-0 Yes 500mg Take 1 Uni vers ol 5-05 tablet by ity of (ROBAXIN) 00:00: mouth 4 [place] 500 mg 00 (four) Medical tablet times Branch daily. methocarbam 2018-0 Yes 500mg Take 1 Uni vers ol 5-05 tablet by ity of (ROBAXIN) 00:00: mouth 4 [place] 500 mg 00 (four) Medical tablet times Branch daily. methocarbam 2018-0 Yes 500mg Take 1 Uni vers ol 5-05 tablet by ity of (ROBAXIN) 00:00: mouth 4 [place] 500 mg 00 (four) Medical tablet times Branch daily. methocarbam 2018-0 Yes 500mg Take 1 Uni vers ol 5-05 tablet by ity of (ROBAXIN) 00:00: mouth 4 [place] 500 mg 00 (four) Medical tablet times Branch daily. methocarbam 2018-0 Yes 500mg Take 1 Uni vers ol 5-05 tablet by ity of (ROBAXIN) 00:00: mouth 4 [place] 500 mg 00 (four) Medical tablet times Branch daily. acetaminoph 2018-0 Yes 1{tbl} Take 1 Un jair en-codeine 5-05 tablet by ity of 300-30 mg 00:00: mouth [place] tablet 00 every 4 Medical (four) Branch hours as needed for Pain (scale 4-6). methocarbam 2018-0 Yes 500mg Take 1 Uni vers ol 5-05 tablet by ity of (ROBAXIN) 00:00: mouth 4 [place] 500 mg 00 (four) Medical tablet times Branch daily. methocarbam 2018-0 Yes 500mg Take 1 Uni vers ol 5-05 tablet by ity of (ROBAXIN) 00:00: mouth 4 [place] 500 mg 00 (four) Medical tablet times Branch daily. methocarbam 2018-0 Yes 500mg Take 1 Uni vers ol 5-05 tablet by ity of (ROBAXIN) 00:00: mouth 4 [place] 500 mg 00 (four) Medical tablet times Branch daily. methocarbam 2018-0 Yes 500mg Take 1 Uni vers ol 5-05 tablet by ity of (ROBAXIN) 00:00: mouth 4 [place] 500 mg 00 (four) Medical tablet times Branch daily. acetaminoph 2018-0 Yes 1{tbl} Take 1 Un jair en-codeine 5-05 tablet by ity of 300-30 mg 00:00: mouth [place] tablet 00 every 4 Medical (four) Branch hours as needed for Pain (scale 4-6). methocarbam 2018-0 Yes 500mg Take 1 Uni vers ol 5-05 tablet by ity of (ROBAXIN) 00:00: mouth 4 [place] 500 mg 00 (four) Medical tablet times Branch daily. acetaminoph 2018-0 2020- No 1{tbl} Take 1 U nivers en-codeine 5-05 08-08 tablet by ity of 300-30 mg 00:00: 00:00 mouth [place] tablet 00 :00 every 4 Medical (four) Branch hours as needed for Pain (scale 4-6). LISINOPRIL 2018-0 Yes None Univers 10 MG ORAL 2-01 Entered ity of TAB 14:33: [address] METFORMIN Yes 500mg Take 500 Uni vers HCL 2-01 mg by ity of (METFORMIN 14:33: mouth 2 [place] (two) Medical times Branch daily. LISINOPRIL Yes None Univers 10 MG ORAL 2- Entered ity of TAB 14:33: [address] METFORMIN Yes 500mg Take 500 Uni vers HCL 2-01 mg by ity of (METFORMIN 14:33: mouth [place] (two) Medical times Branch daily. LISINOPRIL 0 Yes None Univers 10 MG ORAL 2- Entered ity of TAB 14:33: [address] METFORMIN Yes 500mg Take 500 Uni vers HCL 2-01 mg by ity of (METFORMIN 14:33: mouth 2 [place] 29 (two) Medical times Branch daily. Aspirin Aspirin Yes Michelle [address] [facility] [place] [facility] Rosuvastati Rosuvastati Yes Michelle [address] [facility] Calcium n Calcium [facility] Metformin Metformin Yes Michelle [address] [facility] [address] HCl HCl [place] with a [facility] Magnesium Magnesium Yes Michelle [address] [facility] [place] with a [facility] Iron Iron Yes Michelle [address] [facility] [place] [facility] Amlodipine Amlodipine Yes Michelle [address] [facility] Besylate Besylate [place] [facility] [place] [facility] Lisinopril Lisinopril Yes Michelle [address] [facility] Metoprolol Metoprolol Yes Michelle [address] [facility] [address] Tartrate Tartrate [place] with food [facility] Garlic Garlic Yes Michelle as [facility] [place] [facility] Immunizations Ordered Immunization Filled Immunization Date Status Commen ts Source Name Name Covid-19 Vaccine 2021-01-17 Completed Kasia mcwilliams ([employer]), Mrna-lnp, 00:00:00 [place] Protein, Pf, 30mcg/0.3ml,IM Covid-19 Vaccine 2021-01-17 Completed Kasia rodriguezld ([employer]), Mrna-lnp, 00:00:00 [place] Protein, Pf, 30mcg/0.3ml,IM Influenza Virus 2020-11-28 Completed Kasia Se ybold Vaccine, 00:00:00 Quadrivalent, High Dose, Age 65 And Up Influenza Virus 2020-11-28 Completed Kasia Se ybold Vaccine, 00:00:00 Quadrivalent, High Dose, Age 65 And Up Influenza Virus 2020-11-28 Completed Kasia Se ybold Vaccine, 00:00:00 Quadrivalent, High Dose, Age 65 And Up Influenza Virus 2020-11-28 Completed Kasia Se ybold Vaccine, 00:00:00 Quadrivalent, High Dose, Age 65 And Up Influenza Virus 2020-11-28 Completed Kasia Se ybold Vaccine, 00:00:00 Quadrivalent, High Dose, Age 65 And Up Influenza Virus 2020-11-28 Completed Kasia Se ybold Vaccine, 00:00:00 Quadrivalent, High Dose, Age 65 And Up Covid-19 Vaccine 2020-07-16 Completed Kasia S eybold (Moderna), Mrna-lnp, 00:00:00 [place] Protein, Pf, 100 Mcg/0.5ml,IM Covid-19 Vaccine 2020-07-16 Completed Kasia S eybold (Moderna), Mrna-lnp, 00:00:00 [place] Protein, Pf, 100 Mcg/0.5ml,IM Covid-19 Vaccine 2020-07-16 Completed Kasia S eybold (Moderna), Mrna-lnp, 00:00:00 [place] Protein, Pf, 100 Mcg/0.5ml,IM Covid-19 Vaccine 2020-07-16 Completed Kasia S eybold (Moderna), Mrna-lnp, 00:00:00 [place] Protein, Pf, 100 Mcg/0.5ml,IM Covid-19 Vaccine 2020-07-16 Completed Kasia S eybold (Moderna), Mrna-lnp, 00:00:00 [place] Protein, Pf, 100 Mcg/0.5ml,IM Covid-19 Vaccine 2020-06-14 Completed Kasia S eybold (Moderna), Mrna-lnp, 00:00:00 [place] Protein, Pf, 100 Mcg/0.5ml,IM Covid-19 Vaccine 2020-06-14 Completed Kasia S eybold (Moderna), Mrna-lnp, 00:00:00 [place] Protein, Pf, 100 Mcg/0.5ml,IM Covid-19 Vaccine 2020-06-14 Completed Kasia S eybold (Moderna), Mrna-lnp, 00:00:00 [place] Protein, Pf, 100 Mcg/0.5ml,IM Covid-19 Vaccine 2020-06-14 Completed Kasia S eybold (Moderna), Mrna-lnp, 00:00:00 [place] Protein, Pf, 100 Mcg/0.5ml,IM Covid-19 Vaccine 2020-06-14 Completed Kasia S eybold (Moderna), Mrna-lnp, 00:00:00 [place] Protein, Pf, 100 Mcg/0.5ml,IM Influenza Virus 2019-12-22 Completed Kasia Se ybold Vaccine, age 6 months 00:00:00 and up Influenza Virus 2019-12-22 Completed Kasia Se ybold Vaccine, age 6 months 00:00:00 and up Influenza Virus 2019-12-22 Completed Kasia Se ybold Vaccine, age 6 months 00:00:00 and up Influenza Virus 2019-12-22 Completed Kasia Se ybold Vaccine, age 6 months 00:00:00 and up Influenza Virus 2019-12-22 Completed Kasia Se ybold Vaccine, age 6 months 00:00:00 and up Influenza Virus 2019-12-22 Completed Kasia Se ybold Vaccine, age 6 months 00:00:00 and up Shingles IM 2019-03-05 Completed Kasia Seybol d (Shingrix) 00:00:00 Shingles IM 2019-03-05 Completed Kasia Seybol d (Shingrix) 00:00:00 Shingles IM 2019-03-05 Completed Kasia Seybol d (Shingrix) 00:00:00 Shingles IM 2019-03-05 Completed Kasia Seybol d (Shingrix) 00:00:00 Shingles IM 2019-03-05 Completed Kasia Seybol d (Shingrix) 00:00:00 Shingles IM 2019-03-05 Completed Kasia Seybol d (Shingrix) 00:00:00 Pneumococcal Vaccine, 2018-04-27 Completed Killian sey Seybold Polysaccharide 00:00:00 Pneumococcal Vaccine, 2018-04-27 Completed Killian sey Seybold Polysaccharide 00:00:00 Pneumococcal Vaccine, 2018-04-27 Completed Killian sey Seybold Polysaccharide 00:00:00 Pneumococcal Vaccine, 2018-04-27 Completed Killian sey Seybold Polysaccharide 00:00:00 Pneumococcal Vaccine, 2018-04-27 Completed Killian sey Seybold Polysaccharide 00:00:00 Pneumococcal Vaccine, 2018-04-27 Completed Killian sey Seybold Polysaccharide 00:00:00 Shingles IM 2018-03-04 Completed Kasia Seybol d (Shingrix) 00:00:00 Shingles IM 2018-03-04 Completed Kasia Seybol d (Shingrix) 00:00:00 Shingles IM 2018-03-04 Completed Kasia Seybol d (Shingrix) 00:00:00 Shingles IM 2018-03-04 Completed Kasia Seybol d (Shingrix) 00:00:00 Shingles IM 2018-03-04 Completed Kasia Seybol d (Shingrix) 00:00:00 Shingles IM 2018-03-04 Completed Kasia Seybol d (Shingrix) 00:00:00 Influenza Virus 2017-12-08 Completed Kasia Se ybold Vaccine, age 6 months 00:00:00 and up Influenza Virus 2017-12-08 Completed Kasia Se ybold Vaccine, age 6 months 00:00:00 and up Influenza Virus 2017-12-08 Completed Kasia Se ybold Vaccine, age 6 months 00:00:00 and up Influenza Virus 2017-12-08 Completed Kasia Se ybold Vaccine, age 6 months 00:00:00 and up Influenza Virus 2017-12-08 Completed Kasia Se ybold Vaccine, age 6 months 00:00:00 and up Influenza Virus 2017-12-08 Completed Kasia Se ybold Vaccine, age 6 months 00:00:00 and up Influenza Virus 2016-11-27 Completed Kasia Se ybold Vaccine, No Preserv, 00:00:00 age 6 months and up Influenza Virus 2016-11-27 Completed Kasia Se ybold Vaccine, age 6 months 00:00:00 and up Influenza Virus 2016-11-27 Completed Kasia Se ybold Vaccine, No Preserv, 00:00:00 age 6 months and up Influenza Virus 2016-11-27 Completed Kasia Se ybold Vaccine, age 6 months 00:00:00 and up Influenza Virus 2016-11-27 Completed Kasia Se ybold Vaccine, No Preserv, 00:00:00 age 6 months and up Influenza Virus 2016-11-27 Completed Kasia Se ybold Vaccine, age 6 months 00:00:00 and up Influenza Virus 2016-11-27 Completed Kasia Se ybold Vaccine, No Preserv, 00:00:00 age 6 months and up Influenza Virus 2016-11-27 Completed Kasia Se ybold Vaccine, age 6 months 00:00:00 and up Influenza Virus 2016-11-27 Completed Kasia Se ybold Vaccine, No Preserv, 00:00:00 age 6 months and up Influenza Virus 2016-11-27 Completed Kasia Se ybold Vaccine, age 6 months 00:00:00 and up Influenza Virus 2016-11-27 Completed Kasia Se ybold Vaccine, No Preserv, 00:00:00 age 6 months and up Influenza Virus 2016-11-27 Completed Kasia Se ybold Vaccine, age 6 months 00:00:00 and up Pneumococcal Vaccine, 2016-09-17 Completed Killian sey Seybold Conjugate 13 00:00:00 Pneumococcal Vaccine, 2016-09-17 Completed Killian sey Seybold Conjugate 13 00:00:00 Pneumococcal Vaccine, 2016-09-17 Completed Killian sey Seybold Conjugate 13 00:00:00 Pneumococcal Vaccine, 2016-09-17 Completed Killian sey Seybold Conjugate 13 00:00:00 Pneumococcal Vaccine, 2016-09-17 Completed Killian sey Seybold Conjugate 13 00:00:00 Pneumococcal Vaccine, 2016-09-17 Completed Killian sey Seybold Conjugate 13 00:00:00 Shingles SQ 2015-03-20 Completed Kasia Seybol d (Zostavax) 00:00:00 Shingles SQ 2015-03-20 Completed Kasia Seybol d (Zostavax) 00:00:00 Shingles SQ 2015-03-20 Completed Kasia Seybol d (Zostavax) 00:00:00 Shingles SQ 2015-03-20 Completed Kasia Seybol d (Zostavax) 00:00:00 Shingles SQ 2015-03-20 Completed Kasia Seybol d (Zostavax) 00:00:00 Shingles SQ 2015-03-20 Completed Kasia Seybol d (Zostavax) 00:00:00 Td- Tetanus & 2014-11-23 Completed Kasia Seyb old Diphtheria Vaccine 00:00:00 (age 7+ years) Td- Tetanus & 2014-11-23 Completed Kasia Seyb old Diphtheria Vaccine 00:00:00 (age 7+ years) Td- Tetanus & 2014-11-23 Completed Kasia Seyb old Diphtheria Vaccine 00:00:00 (age 7+ years) Td- Tetanus & 2014-11-23 Completed Kasia Seyb old Diphtheria Vaccine 00:00:00 (age 7+ years) Td- Tetanus & 2014-11-23 Completed Kasia Seyb old Diphtheria Vaccine 00:00:00 (age 7+ years) Td- Tetanus & 2014-11-23 Completed Kasia Seyb old Diphtheria Vaccine 00:00:00 (age 7+ years) Td,absorbed PF 2008-03-08 Completed Kasia Sey bold KSC,Admin,unspecified 00:00:00 Td,absorbed PF 2008-03-08 Completed Kasia Sey bold KSC,Admin,unspecified 00:00:00 Td,absorbed PF 2008-03-08 Completed Kasia Sey bold KSC,Admin,unspecified 00:00:00 Td,absorbed PF 2008-03-08 Completed Kasia Sey bold KSC,Admin,unspecified 00:00:00 Td,absorbed PF 2008-03-08 Completed Kasia Sey bold KSC,Admin,unspecified 00:00:00 Td,absorbed PF 2008-03-08 Completed Kasia Sey bold KSC,Admin,unspecified 00:00:00 Td 2008-03-08 Completed University of 00:00:00 [facility] Td 2008-03-08 Completed University of 00:00:00 [facility] Td 2008-03-08 Completed University of 00:00:00 [facility] Td 2008-03-08 Completed University of 00:00:00 [facility] Td 2008-03-08 Completed University of 00:00:00 [facility] Td 2008-03-08 Completed University of 00:00:00 [facility] Td 2008-03-08 Completed University of 00:00:00 [facility] Td 2008-03-08 Completed University of 00:00:00 [facility] Td 2008-03-08 Completed University of 00:00:00 [facility] Td 2008-03-08 Completed University of 00:00:00 [facility] Td 2008-03-08 Completed University of 00:00:00 [facility] Td 2008-03-08 Completed University of 00:00:00 [facility] Td 2008-03-08 Completed University of 00:00:00 [facility] Td 2008-03-08 Completed University of 00:00:00 [facility] Pneumococcal Vaccine, 2007-11-04 Completed Killian sey Seybold Polysaccharide 00:00:00 Pneumococcal Vaccine, 2007-11-04 Completed Killian sey Seybold Polysaccharide 00:00:00 Pneumococcal Vaccine, 2007-11-04 Completed Killian sey Seybold Polysaccharide 00:00:00 Pneumococcal Vaccine, 2007-11-04 Completed Killian sey Seybold Polysaccharide 00:00:00 Pneumococcal Vaccine, 2007-11-04 Completed Killian sey Seybold Polysaccharide 00:00:00 Pneumococcal Vaccine, 2007-11-04 Completed Killian sey Seybold Polysaccharide 00:00:00 Pneumococcal 2007-11-04 Completed University o f Polysaccharide, 00:00:00 [place] [facility] ical PPSV23 (PNEUMOVAX) Branch Pneumococcal 2007-11-04 Completed University o f Polysaccharide, 00:00:00 [place] [facility] ical PPSV23 (PNEUMOVAX) Branch Pneumococcal 2007-11-04 Completed University o f Polysaccharide, 00:00:00 [place] Med ical PPSV23 (PNEUMOVAX) Branch Pneumococcal 2007-11-04 Completed University o f Polysaccharide, 00:00:00 [place] Med ical PPSV23 (PNEUMOVAX) Branch Pneumococcal 2007-11-04 Completed University o f Polysaccharide, 00:00:00 [place] Med ical PPSV23 (PNEUMOVAX) Branch Pneumococcal 2007-11-04 Completed University o f Polysaccharide, 00:00:00 [place] Med ical PPSV23 (PNEUMOVAX) Branch Pneumococcal 2007-11-04 Completed University o f Polysaccharide, 00:00:00 [place] Med ical PPSV23 (PNEUMOVAX) Branch Pneumococcal 2007-11-04 Completed University o f Polysaccharide, 00:00:00 [place] Med ical PPSV23 (PNEUMOVAX) Branch Pneumococcal 2007-11-04 Completed University o f Polysaccharide, 00:00:00 [place] Med ical PPSV23 (PNEUMOVAX) Branch Pneumococcal 2007-11-04 Completed University o f Polysaccharide, 00:00:00 [place] Med ical PPSV23 (PNEUMOVAX) Branch Pneumococcal 2007-11-04 Completed University o f Polysaccharide, 00:00:00 [place] Med ical PPSV23 (PNEUMOVAX) Branch Pneumococcal 2007-11-04 Completed University o f Polysaccharide, 00:00:00 [place] Med ical PPSV23 (PNEUMOVAX) Branch Pneumococcal 2007-11-04 Completed University o f Polysaccharide, 00:00:00 [place] Med ical PPSV23 (PNEUMOVAX) Branch Pneumococcal 2007-11-04 Completed University o f Polysaccharide, 00:00:00 [place] Med ical PPSV23 (PNEUMOVAX) Branch Vital Signs Vital Name Observation Time Observation Value Comments Source Systolic blood 2021-02-26 14:32:00 145 mm[Hg] Kasia Seybold pressure Diastolic blood 2021-02-26 14:32:00 72 mm[Hg] Kelse y Seybold pressure Heart rate 2021-02-26 14:32:00 81 /min Kasia cuellobold Body temperature 2021-02-26 14:32:00 36.44 Jada Nereyda ey Seybold Respiratory rate 2021-02-26 14:32:00 14 /min Nereyda cuello Seybold Body height 2021-02-26 14:32:00 157.5 cm Kasia cuellobold Body weight 2021-02-26 14:32:00 62.143 kg Kasia cuellobold BMI 2021-02-26 14:32:00 25.06 kg/m2 Kasia S eybold Systolic blood 2021-01-13 20:25:00 116 mm[Hg] Kasia Seybold pressure Diastolic blood 2021-01-13 20:25:00 44 mm[Hg] Kelse y Seybold pressure Heart rate 2021-01-13 20:25:00 83 /min Kasia Hercules eybold Body temperature 2021-01-13 20:25:00 36.56 Jada Nereyda ey Seybold Respiratory rate 2021-01-13 20:25:00 14 /min Nereyda ey Seybold Body height 2021-01-13 20:25:00 157.5 cm Kasia S eybold Body weight 2021-01-13 20:25:00 62.596 kg Kasia S eybold BMI 2021-01-13 20:25:00 25.24 kg/m2 Kasia S eybold Systolic blood 2020-12-25 14:05:00 142 mm[Hg] Kasia Seybold pressure Diastolic blood 2020-12-25 14:05:00 70 mm[Hg] Kelse y Seybold pressure Heart rate 2020-12-25 14:05:00 77 /min Kasia S eybold Body temperature 2020-12-25 14:05:00 36.28 Jada Nereyda ey Seybold Respiratory rate 2020-12-25 14:05:00 16 /min Nereyda ey Seybold Body height 2020-12-25 14:05:00 157.5 cm Kasia S eybold Body weight 2020-12-25 14:05:00 61.236 kg Kasia S eybold BMI 2020-12-25 14:05:00 24.69 kg/m2 Kasia S eybold Systolic blood 2020-12-17 17:41:00 130 mm[Hg] Kasia Seybold pressure Diastolic blood 2020-12-17 17:41:00 62 mm[Hg] Kelse y Seybold pressure Heart rate 2020-12-17 17:41:00 97 /min Kasia S eybold Body temperature 2020-12-17 17:41:00 36.94 Jada Nereyda ey Seybold Respiratory rate 2020-12-17 17:41:00 14 /min Nereyda ey Seybold Body height 2020-12-17 17:41:00 157.5 cm Kasia S eybold Body weight 2020-12-17 17:41:00 60.328 kg Kasia S eybold BMI 2020-12-17 17:41:00 24.33 kg/m2 Kasia S eybold Oxygen saturation in 2020-12-17 17:41:00 98 /min Kasia Seybold Arterial blood by Pulse oximetry Systolic blood 2020-11-28 13:09:00 142 mm[Hg] Kasia Seybold pressure Diastolic blood 2020-11-28 13:09:00 78 mm[Hg] Kelse y Seybold pressure Heart rate 2020-11-28 13:09:00 74 /min Kasia cuelloboarron Body temperature 2020-11-28 13:09:00 36.61 Jada Nereyda Jones Respiratory rate 2020-11-28 13:09:00 14 /min Nereyda Jones Body height 2020-11-28 13:09:00 157.5 cm Kasia mcwilliams Body weight 2020-11-28 13:09:00 59.875 kg Kasia mcwilliams BMI 2020-11-28 13:09:00 24.14 kg/m2 Kasia mcwilliams Systolic blood 2020-01-18 23:21:00 185 mm[Hg] Univer sity of pressure [facility] Diastolic blood 2020-01-18 23:21:00 99 mm[Hg] Unive rsity of pressure [facility] Heart rate 2020-01-18 23:21:00 95 /min Universi ty of [facility] Body temperature 2020-01-18 23:21:00 36.67 Jada [facility] Respiratory rate 2020-01-18 23:21:00 18 /min [facility] Oxygen saturation in 2020-01-18 23:21:00 97 /min [facility] Arterial blood by [facility] Pulse oximetry Branch Body weight 2020-01-18 23:17:00 63.504 kg Universi ty of [facility] BMI 2020-01-18 23:17:00 26.45 kg/m2 Universi ty [facility] Systolic blood 2019-10-31 20:33:00 170 mm[Hg] Univer sity of pressure [facility] Diastolic blood 2019-10-31 20:33:00 73 mm[Hg] Unive rsity of pressure [facility] Heart rate 2019-10-31 20:33:00 75 /min Universi ty of [facility] Body temperature 2019-10-31 20:33:00 37.22 Jada Univ ersity of [facility] Respiratory rate 2019-10-31 20:33:00 19 /min [facility] Body height 2019-10-31 20:33:00 154.9 cm Universi ty of [facility] Body weight 2019-10-31 20:33:00 62.143 kg Universi ty of [facility] BMI 2019-10-31 20:33:00 25.89 kg/m2 Universi ty of [facility] Systolic blood 2019-10-14 17:00:00 175 mm[Hg] Univer sity of pressure [facility] Diastolic blood 2019-10-14 17:00:00 76 mm[Hg] Unive rsity of pressure [facility] Heart rate 2019-10-14 17:00:00 79 /min Universi ty of [facility] Body temperature 2019-10-14 17:00:00 36.94 Jada Univ ersity of [facility] Respiratory rate 2019-10-14 17:00:00 18 /min Univ ersity of [facility] Oxygen saturation in 2019-10-14 17:00:00 96 /min University of Arterial blood by [employer] Pulse oximetry Branch Body weight 2019-10-13 08:00:00 62.46 kg Universi ty of [facility] BMI 2019-10-13 08:00:00 26.02 kg/m2 Universi ty of [facility] Body height 2019-10-12 01:27:00 154.9 cm Universi ty of [facility] Systolic blood 2019-10-14 17:00:00 175 mm[Hg] Univer sity of [facility] Diastolic blood 2019-10-14 17:00:00 76 mm[Hg] Unive rsity of [facility] Heart rate 2019-10-14 17:00:00 79 /min Universi ty of [facility] Body temperature 2019-10-14 17:00:00 36.94 Jada Univ ersity of [facility] Respiratory rate 2019-10-14 17:00:00 18 /min Univ ersity of [facility] Oxygen saturation in 2019-10-14 17:00:00 96 /min University of Arterial blood by [employer] Pulse oximetry Branch Body weight 2019-10-13 08:00:00 62.46 kg Universi ty of [facility] BMI 2019-10-13 08:00:00 26.02 kg/m2 [facility] Body height 2019-10-12 01:27:00 154.9 cm Universi ty [facility] Procedures Procedure Date / Time Performing Clinician Source Performed ASSIGNMENT OF BENEFITS 2021-03-11 21:17:04 Doctor Unassigned, No [facility] URINALYSIS, ROUTINE 2021-02-26 15:42:00 Lakia Whiteboarron MICROSCOPIC EXAMINATION 2021-02-26 15:42:00 Lakia White IRON AND TIBC 2021-02-26 15:31:00 Lakia White FERRITIN, SERUM 2021-02-26 15:31:00 Lakia White VITAMIN D, 25-HYDROXY 2021-02-26 15:31:00 Lakia White URINALYSIS NONAUTO W/O 2021-01-13 20:39:00 Lakia White SCOPE URINALYSIS, COMPLETE 2020-12-25 14:31:00 Lakia White MICROSCOPIC EXAMINATION 2020-12-25 14:31:00 Lakia White CBC WITH 2020-11-28 14:10:00 AgaCarlos DIFFERENTIAL/PLATELET CONSENT/REFUSAL FOR 2020-01-20 15:01:42 Doctor Unassigned, No [facility] DIAGNOSIS AND TREATMENT [facility] ASSIGNMENT OF BENEFITS 2020-01-20 15:01:20 Doctor Unassigned, No [facility] CT HEAD WO CONTRAST 2020-01-19 00:01:40 Ziggy Chatterjee [facility] Medical [place] XR FOREARM 2 VW RIGHT 2020-01-18 23:53:49 Ziggy Chatterjee [facility] XR TIBIA FIBULA 2 VW 2020-01-18 23:53:49 Ziggy Chatterjee [facility] LEFT Medical Branch COMP. METABOLIC PANEL 2020-01-18 23:36:00 Ziggy Chatterjee [facility] ([id number]) Medical Branch CBC WITH DIFF 2020-01-18 23:36:00 Singer [facility] NOTICE OF PRIVACY 2020-01-18 23:10:17 Doctor Unassigned, No Univ [facility] PRACTICES Name Medical [place] CONSENT/REFUSAL FOR 2020-01-18 23:09:59 Doctor [facility], [facility] POCT GLUCOSE 2019-10-14 16:42:00 [facility] POCT GLUCOSE 2019-10-14 13:17:00 [facility] Branch LIPASE 2019-10-14 10:16:00 [facility] HEPATIC FUNCTION PANEL 2019-10-14 10:16:00 [facility] ([id number] (ALB,T.PRO,BILI [facility] T,BU/BC,ALT,AST,ALK PHOS) BASIC METABOLIC PANEL 2019-10-14 10:16:00 [facility] (NA, K, CL, CO2, Medical Branch GLUCOSE, BUN, CREATININE, CA) CBC WITH DIFF 2019-10-14 10:16:00 [facility] 2019-10-14 06:20:00 [facility] Branch POCT GLUCOSE 2019-10-14 01:31:00 [facility] Branch POCT GLUCOSE 2019-10-13 21:42:00 [facility] FL TIME OR 2019-10-13 15:15:00 Mcdonough [facility] (NON-REPORTABLE) Medical Branch POCT GLUCOSE 2019-10-13 13:01:00 [facility] Medical Branch LIPASE 2019-10-13 09:59:00 [facility] COMP. METABOLIC PANEL 2019-10-13 09:59:00 Reese Reyes [facility] ([id number]) Medical Branch CBC WITH DIFF 2019-10-13 09:59:00 [facility] POCT GLUCOSE 2019-10-12 22:46:00 [facility] Medical Branch POCT GLUCOSE 2019-10-12 20:33:00 [facility] Branch POCT GLUCOSE 2019-10-12 16:17:00 [facility] ([facility] Medical Branch US GALL BLADDER 2019-10-12 14:06:30 Reese Reyes [facility] ECHO ROUTINE W/DOPPLER 2019-10-12 13:36:55 [facility] LIPASE 2019-10-12 10:37:00 [facility] TROPONIN I 2019-10-12 10:37:00 [facility] GLYCOSYLATED HEMOGLOBIN 2019-10-12 10:37:00 [facility] (A1C[facility] Medical Branch POCT GLUCOSE 2019-10-12 10:31:00 [facility] ([facility]) [facility] CT ANGIOGRAM CHEST 2019-10-12 04:50:17 [facility] ABDOMEN PELVIS W 2019-10-12 04:50:17 Frank Yanez [facility] CONTRAST [facility] XR CHEST 1 VW COVID 2019-10-12 01:59:41 Frank Yanez [facility] COVID-19 (ID NOW RAPID 2019-10-12 01:55:00 Frank Yanez [facility] TESTING) Medical Branch LIPASE 2019-10-12 01:52:00 Frank Yanez [facility] TROPONIN I 2019-10-12 01:52:00 Frank Yanez [facility] COMP. METABOLIC PANEL 2019-10-12 01:52:00 Frank Yanez [facility] ([id number]) Medical Branch LIPID PANEL 2019-10-12 01:52:00 [facility] ([id number])(TOTAL Medical Branch CHOLESTEROL, TRIGLYCERIDES, HDL) CBC WITH DIFF 2019-10-12 01:52:00 Frank Yanez [facility] PROTHROMBIN TIME / INR 2019-10-12 01:52:00 Frank Yanez [facility] N-TERMINAL PRO-BNP 2019-10-12 01:52:00 [facility] LOW-DENSITY 2019-10-12 01:52:00 Lory [facility] [place] LIPOPROTEIN, DIRECT Medical Bran ch EKG-12 LEAD 2019-10-12 01:41:37 Frank Yanez [facility] EKG-12 LEAD 2019-10-12 01:39:16 Frank Yanez [facility] NOTICE OF PRIVACY 2019-10-12 01:20:17 Doctor Unassigned, No Univ [facility] PRACTICES Name [facility] Branch CONSENT/REFUSAL FOR 2019-10-12 01:19:55 Doctor Unassigned, No [facility]ATMENT Name [facility] Encounters Start End Encounter Admission Attending Care Care Encounter Source Date/Time Date/Time Type Type Clinicians Facility Department ID 2021-01-04 Emergency [facility] [id number] Univers 05:14:15 ity [facility] 2021-01-03 Emergency [facility] [id number] Univers 10:51:44 ity [facility] 2021-03-19 2021-03-19 Outpatient KASIA WHITE [id number] Kasia 00:00:00 00:00:00 LAKIA capone 2021-03-13 2021-03-13 Letter BRENDA Mcbride 1.2.840.114 [id number] Univers 00:00:00 00:00:00 (Out) Cherelle POLO [id number] [facility] 4.2.7.2.686 [place] [phone] [address] 2021-03-11 2021-03-11 Laboratory Only, Ang Db Test [facility] 1.2.8 40.114 [id number] Univers 15:15:00 15:30:00 Only Marco Physiq [id number] ity [facility] 4.2.7.2.686 [place] PRO?BLEA [id number] Al layne [address] MEDICAL OFFICE BUILDING 2021-03-11 2021-03-11 Outpatient R [facility] [id number] Univers 15:15:00 15:15:00 [id number] ity [facility] 2021-03-11 2021-03-11 Outpatient R MARCO [facility] [id number] Univers 15:15:00 15:15:00 JUANCARLOS ity [facility] 2021-03-11 2021-03-11 Outpatient KASIA WHITE [id number] Kasia 09:30:00 09:30:00 LAKIA Seybol d 2021-03-11 2021-03-11 Outpatient IKER KASIA MILLER [id number] Kasia 00:00:00 00:00:00 LAKIA Seybol d 2021-03-11 2021-03-11 Orders Doctor GUTIERREZ 1.2.840.114 [id number] Univers 00:00:00 00:00:00 Only Unassigned, MELANI [id number] ity [facility] 4.2.7.2.686 [place] [phone] [address] 2021-03-10 2021-03-10 Outpatient KASIA WHITE [id number] Kasia 00:00:00 00:00:00 LAKIA Seybol d 2021-03-10 2021-03-10 Outpatient KASIA MILLER [id number] Kasia 00:00:00 00:00:00 Seybol d 2021-03-06 2021-03-06 Outpatient KASIA WHITE [id number] Kasia 00:00:00 00:00:00 LAKIA Seybol d 2021-03-05 2021-03-05 Telemedici Sulaiman White 1.2.840.114 [id number] Kasia 08:00:00 08:30:00 ne Lakia Martin 350.1.13.13 Se simone 1.2.7.2.686 [id number] 2021-03-03 2021-03-03 Outpatient SULAIMAN OTTO [id number] Kasia 15:45:00 15:45:00 Seybol d 2021-03-03 2021-03-03 Outpatient KASIA WHITE [id number] Kasia 00:00:00 00:00:00 LAKIA Seybol d 2021-03-03 2021-03-03 Outpatient KASIA WHITE [id number] Kasia 00:00:00 00:00:00 LAKIA Seybol d 2021-02-26 2021-02-26 Outpatient LAB90 KASIA MILLER [id number] Kasia 09:25:00 09:25:00 Seybol d 2021-02-26 2021-02-26 Office Iker Sulaiman 1.2.840.114 [id number] Kasia 08:30:00 09:00:00 Visit Lakia Martin [id number] Se simone 1.2.7.2.686 [id number] 2021-02-18 2021-02-18 Outpatient KASIA MILLER [id number] Kasia 00:00:00 00:00:00 Seybol d 2021-02-17 2021-02-17 Outpatient JACQUELINECARLOS [id number] Kasia 00:00:00 00:00:00 Seybol d 2021-02-10 2021-02-10 Outpatient KASIA MILLER [id number] Kasia 00:00:00 00:00:00 Seybol d 2021-02-10 2021-02-10 Outpatient JACQUELINECARLOS [id number] Kasia 00:00:00 00:00:00 Seybol d 2021-02-04 2021-02-04 Outpatient KASIA WHITE [id number] Kasia 00:00:00 00:00:00 LAKIA Seybol d 2021-01-31 2021-01-31 Outpatient KASIA MILLER [id number] Kasia 00:00:00 00:00:00 Seybol d 2021-01-26 2021-01-26 Outpatient KASIA WHITE [id number] Kasia 00:00:00 00:00:00 LAKIA Seybol d 2021-01-17 2021-01-17 Outpatient COVID-PFIZE KASIA MILLER [id number] Kasia 09:00:00 09:00:00 R Lourdes [place] 2021-01-15 2021-01-15 Outpatient SULAIMAN OTTO [id number] Kasia 14:15:00 14:15:00 Seybol d 2021-01-15 2021-01-15 Outpatient KASIA WHITE [id number] Kasia 00:00:00 00:00:00 LAKIA Seybol d 2021-01-15 2021-01-15 Outpatient KASIA WHITE KASIA [id number] Kasia 00:00:00 00:00:00 LAKIA Seybol d 2021-01-15 2021-01-15 Outpatient KASIA WHITESEY [id number] Kasia 00:00:00 00:00:00 LAKIA Seybol d 2021-01-14 2021-01-14 Outpatient KASIA WHITE KASIA [id number] Kasia 00:00:00 00:00:00 LAKIA Seybol d 2021-01-13 2021-01-13 Outpatient LAB90 KASIA KASIA [id number] Kasia 15:30:00 15:30:00 Seybol d 2021-01-13 2021-01-13 Office Sulaiman White 1.2.840.114 [id number] Kasia 14:25:37 14:55:37 Visit Lakialadarius Martin 350.1.13.13 Se ybold 1.2.7.2.686 [id number] 2021-01-13 2021-01-13 Outpatient KASIA WHITESEY [id number] Kasia 00:00:00 00:00:00 LAKIA Seybol d 2020-12-25 2020-12-25 Outpatient LAB90 KASIA KASIA [id number] Kasia 11:10: 11:10:00 Seybol d 2020-12-25 2020-12-25 Office Sulaiman White 1.2.840.114 [id number] Kasia 09:00:08 09:30:08 Visit Lakia Martin 350.1.13.13 Se ybold 1.2.7.2.686 [id number] 2020-12-19 2020-12-19 Outpatient KASIA WHITE KASIA [id number] Kasia 00:00:00 00:00:00 LAKIA Seybol d 2020-12-17 2020-12-17 Office Sulaiman White 1.2.840.114 [id number] Kasia 12:30:43 13:00:43 Visit Lakialadarius Martin 350.1.13.13 Se ybold 1.2.7.2.686 [id number] 2020-12-17 2020-12-17 Outpatient KASIA KASIA [id number] Kasia 08:00:00 08:00:00 Seybol d 2020-12-09 2020-12-09 Outpatient CARLOS PHILLIPS KASIA [id number] Kasia 00:00:00 00:00:00 Seybol d 2020-12-04 2020-12-04 Outpatient CARLOS PHILLIPS KASIA MILLER [id number] Kasia 00:00:00 00:00:00 Seybol d 2020-11-29 2020-11-29 Outpatient CARLOS PHILLIPS KASIA MILLER [id number] Kasia 00:00:00 00:00:00 Seybol d 2020-11-28 2020-11-28 Outpatient LAB90 KASIA MILLER [id number] Kasia 09:15:00 09:15:00 Seybol d 2020-11-28 2020-11-28 Office Carlos Phillips 1.2.840.114 [id number] Kasia 08:04:39 08:49:39 Visit W Mario 350.1.13.13 Se grantold 1.2.7.2.686 [id number] 2020-05-13 2020-05-13 Patient Michi [facility] 1.2.840.114 [id number] Univers 00:00:00 00:00:00 Outreach Ross JENNINGS 350.1.13.10 i ty of [facility] [place] [id number] Al dicar [address] [place] 2020-01-20 2020-01-20 [facility] 1.2.840.114 [id number] Univers 09:00:00 23:59:00 Encounter Michael Reeves 350.1.13.10 it[place] [phone] [facility] [address] 2020-01-20 2020-01-20 [facility] [id number] Univers 09:00:00 09:00:00 MICHAEL [id number] ity [facility] 2020-01-20 2020-01-20 Outpatient R ALAINA [facility] [id number] Univers 00:00:00 00:00:00 MICHAEL [facility] [place] [facility] 2020-01-18 2020-01-18 [facility] 1.2.575.655 [id number] Univers 17:14:00 18:57:00 Ziggy Reeves 350.1.13.10 i ty of [place] [id number] [facility] 084 [place] 2020-01-18 2020-01-18 Orders Doctor BRENDA 1.2.840.114 [id number] Univers 00:00:00 00:00:00 Only Unassigned, MELANI 350.1.13.10 [facility] 4.2.7.2.686 [place] [phone] [facility] 009 [place] 2019-11-28 2019-11-28 [facility] [id number] Univers 13:30:00 13:30:00 NATALIA [id number] [facility] [place] [facility] 2019-11-28 2019-11-28 Outpatient R SANDOR [facility] [id number] Univers 13:30:00 13:30:00 [facility] 2019-10-31 2019-10-31 Office [facility] 1.2.485.045 [id number] Univers 15:21:52 16:12:34 Visit Natalia Reeves 350.1.13.10 i ty of [place] 4.2.7.2.686 [facility] [id number] Al dical [address] 2019-10-31 2019-10-31 Outpatient R SANDOR [facility] [id number] Univers 15:30:00 15:30:00 NATALIA [id number] [facility] [place] [facility] 2019-10-31 2019-10-31 Out[facility] [id number] Univers 15:30:00 15:30:00 NATALIA [facility] [place] [facility] 2019-10-16 2019-10-16 Transition Elena Li 1.2.840.114 [id number] 00:00:00 00:00:00 of Crispin Rose 350.1.13.10 [place] 4.2.7.2.686 [id number] 2019-10-16 2019-10-16 Transition Elena Li 1.2.840.114 [id number] Univers 00:00:00 00:00:00 of Care Kellen Rose 350.1.13.10 it y of [place] [id number] [facility] [address] 2019-10-11 2019-10-14 [facility] 1.2.840. 114 [id number] 20:32:00 13:28:00 Encounter Erika Henley 350.1.13.10 [place] 4.2.7.2.686 [place] [id number] 2019-10-11 2019-10-14 [facility] 1.2.840. 114 [id number] [facility] 20:32:00 13:28:00 Encounter Erika Henley 350.1.13.10 ity [place] [id number] [facility] 080 [place] 2019-10-11 2019-10-11 Orders Doctor BRENDA 1.2.840.114 [id number] 00:00:00 00:00:00 Only Unassigned, MELANI 350.1.13.10 [place] [facility] 4.2.7.2.686 [id number] 2019-10-11 2019-10-11 Orders Doctor GUTIERREZ 1.2.840.114 [id number] Univers 00:00:00 00:00:00 Only Unassigned, MELANI 350.1.13.10 ity [facility] [place] [facility] 4.2.7.2.686 [place] as [id number] [facility] 009 [place] 2019-09-19 2019-09-19 Laboratory Lab, [facility] 1.2.840.114 [id number] 09:57:04 10:17:04 Only Fam Pob I Health 350.1.13.10 [place] 4.2.7.2.686 Professio [id number] nal [address] 2019-09-19 2019-09-19 Laboratory Lab, Adc Fam Pob I [facility] 1.2. 840.114 [id number] Univers 09:57:04 10:17:04 Only Nayana Ferrari 350.1.13.10 ity [facility] 4.2.7.2.686 [place] Taishaio [id number] [address] Office Building [facility] 2019-09-19 2019-09-19 Outpatient R [facility] [id number] Univers 10:00:00 10:00:00 [id number] ity of [facility] 2019-09-19 2019-09-19 Outpatient R [facility] [id number] Univers 10:00:00 10:00:00 ity [facility] 2019-09-19 2019-09-19 Letter Doctor BREDNA 1.2.840.114 [id number] 00:00:00 00:00:00 (Out) Unassigned, MELANI 350.1.13.[address] [place] [facility] 4.2.7.2.686 [id number] [facility] 2019-09-19 2019-09-19 Letter Doctor BRENDA 1.2.840.114 [id number] [facility] 00:00:00 00:00:00 (Out) Unassigned, MELANI 350.1.13.[address] [place] [facility] 4.2.7.2.686 [place] as [id number] [address] 2019-05-10 2019-05-10 [facility] [id number] [address] 08:30:00 08:30:00 t Specialty/U Shanti kes - Specialty rology Memori a /Urology Clinic l Clinic Outpati ent Clinics 2019-04-28 2019-04-28 [facility] [id number] 15:26:00 15:26:00 t Specialty/U Shanti kes - Specialty rology Memori a /Urology Clinic l Clinic Outpati ent Clinics 2019-04-24 2019-04-24 [facility] [id number] 09:00:00 09:00:00 t Specialty/U Shanti kes - Specialty rology Memori a /Urology Clinic l [facility] Results Test Description Test Time Test Comments Results Result Comments Source URINALYSIS, ROUTINE 2021-02-27 15:30:00 Test Item Value Reference Range Interpretation Comme nts SPECIFIC GRAVITY (test 1.005-1.030 code = 2965-2) PH (test code = 5803-2) 5.0-7.5 URINE-COLOR (test code = Yellow Yellow 5778-6) APPEARANCE (test code = Cloudy Clear A 5767-9) WBC ESTERASE (test code = 3+ Negative A 5799-2) PROTEIN (test code = 1+ Negative/Trace A 02670-2) GLUCOSE (test code = 1+ Negative A 2349-9) KETONES (test code = Negative Negative 2514-8) OCCULT BLOOD (test code = Trace Negative A 5794-3) BILIRUBIN (test code = Negative Negative 5770-3) UROBILINOGEN,SEMI-QN (test 0.2 mg/dL 0.2-1.0 code = 34628-9) NITRITE, URINE (test code Positive Negative A = 5802-4) MICROSCOPIC EXAMINATION See below: Micr oscopic was (test code = 00248-9) indica sven and was performed. FELICITA (test code = FELICITA) [facility] results reported in [place] Time. [facility] Clinical Information:SRC:Urin e*Urine ?LCA Source of Specimen:Urine*Urine Lab Interpretation (test Abnormal code = 39249-8) Kasia SeyboldMICROSCOPIC [id number] 15:30:00 Test Item Value Reference Range Interpretation Comments WBC (test code = >30 See_Comment A [Automated 5821-4) message] The system which generated this result transmit sven reference range : 0 - 5 /hpf. The reference range was not used to interpret this result as normal/abnormal . RBC (test code = 0-2 See_Comment [Automated 59398-6) message] The system which generated this result transmit sven reference range : 0 - 2 /hpf. The reference range was not used to interpret this result as normal/abnormal . EPITHELIAL CELLS (NON None seen See_Comment [Auto mated RENAL) (test code = message] The 5787-7) system which generated this result transmit sven reference range : 0 - 10 /hpf. The reference range was not used to interpret this result as normal/abnormal . CASTS (test code = None seen None seen /lpf 25885-4) BACTERIA (test code = Many None seen/Few A 5769-5) FELICITA (test code = FELICITA) [facility] results reported in Eastern Time. [facility] Clinical Information:SRC :Urine*Urine ?LCA Source of Specimen:Urine* Urine Lab Interpretation Abnormal (test code = 69857-6) Kasia HaoldIRON AND [id number] 14:37:00 Test Item Value Reference Range Interpretation Comments IRON BIND.CAP.(TIBC) (test 420 ug/dL 250-450 code = 2500-7) UIBC (test code = 2501-5) 372 ug/dL 118-369 H IRON, SERUM (test code = 48 ug/dL 27-139 2498-4) IRON SATURATION (test code 11 % 15-55 L = 2502-3) FELICITA (test code = FELICITA) [facility] results reported in [place] Time. [facility] Clinical Information:SRC:Blo od, venous*Venipunc ture ? [facility] Source of Specimen:Blood, venous*Venipunc Lab Interpretation (test Abnormal code = 09295-7) Kasia HaoldFERRITIN, [id number] 14:26:00 Test Item Value Reference Range Interpretation Comments FERRITIN, SERUM (test 19 ng/mL 15-150 code = 2276-4) FELICITA (test code = FELICITA) [facility] results reported in [place] Time. [facility] Clinical Information:SRC:Blood, venous*Venipunc ture ? [facility] Source of Specimen:Blood, venous*Venipunc Kasia HaoldVITAMIN D, [id number] 14:15:00 Test Item Value Reference Range Interpretation Comments VITAMIN D, 25-HYDROXY 21.2 ng/mL 30.0-100.0 L Vitami n D deficiency (test code = 25791-0) has be en defined by the [place] ofMedicine and an Endocrine Socie ty practice guidel ine as alevel of se rum 25-OH vitamin D less than 20 ng/mL (1,2).The Endoc rine Society went on to further define vitamin Dinsufficiency as a level between 2 1 and 29 ng/mL (2).1. IOM ([place] of Medicine). 2010 . Dietary referen ce ? intakes for ranjan cium and D. [place]: The ? [employer] .2. Anthony MF, Nicolás malave [place], Vivien ha BOCANEGRA, et al. ? Evaluation, treatment, and prevention of vitamin D ? deficiency: an Endocrine Socie ty clinical practi ce ? guideline. JCEM . 2010; 96(7):1911-30. FELICITA (test code = FELICITA) [facility] results reported in Eastern Time. [facility] Clinical Information:SR C:Blood, venous*Venipun c ture ? L[facility] Source of Specimen:Blood , venous*Venipun c Lab Interpretation Abnormal (test code = 10262-1) Kasia JonesURINALYSELVIE NONAUTO W/O [id number] 20:39:00 Test Item Value Reference Range Interpretation Comments UD KETONES (test code = neg 5-160 171632) UD GLUCOSE (test code = neg 100-2000 295990) UD PROTEIN (test code = neg Trace - 2000 mg/dL 814353) UD LEUKOCYTES (test mod Trace - Large @ 2 code = 185562) min. UD NITRITE (test code = neg Neg. - Pos. @ 60 485843) sec. UD UROBILINOGEN (test 0.2 mg/dL 0.2-8 code = 127221) UD PH (test code = See_Comment [Automat ed 971866) message] The sy stem which generated this result transmitted reference range : 5.0 - 8.5 @ 60 sec.. The refer ence range was not u sed to interpret th is result as normal/abnormal . UD BLOOD (test code = neg Neg. - Large @ 60 150942) sec. UD SPECIFIC GRAVITY See_Comment [Automa sven (test code = 302545) message ] The system which generated this result transmitted reference range : 1.000 - 1.030 @ 45 sec.. The refer ence range was not u sed to interpret th is result as normal/abnormal . UD BILIRUBIN (test code neg Neg. - Large @ 45 = 514772) sec. Lab Interpretation Abnormal (test code = 24447-2) Kasia Henriquez, [id number] 20:13:00 Test Item Value Reference Range Interpretation Comments SPECIFIC GRAVITY (test 1.005-1.030 code = 2965-2) PH (test code = 5803-2) 5.0-7.5 URINE-COLOR (test code = Yellow Yellow 5778-6) APPEARANCE (test code = Hazy Clear A 5767-9) WBC ESTERASE (test code = 2+ Negative A 5799-2) PROTEIN (test code = Negative Negative/Trace 49740-9) GLUCOSE (test code = Negative Negative 2349-9) KETONES (test code = Negative Negative 2514-8) OCCULT BLOOD (test code = Trace Negative A 5794-3) BILIRUBIN (test code = Negative Negative 5770-3) UROBILINOGEN,SEMI-QN (test 0.2 mg/dL 0.2-1.0 code = 38967-0) NITRITE, URINE (test code Negative Negative = 5802-4) MICROSCOPIC EXAMINATION See below: (test code = 31220-5) FELICITA (test code = FELICITA) [facility] results reported in [place] Time. L[facility] Clinical Information:SRC:Uri ne ?LCA Source of Specimen:Urine Lab Interpretation (test Abnormal code = 31150-6) Kasia SegrantoldMICROSCOPIC [id number] 20:13:00 Test Item Value Reference Range Interpretation Comments WBC (test code = >30 See_Comment A [Automated 5821-4) message] The system which generated this result transmit sven reference range : 0 - 5 /hpf. The reference range was not used to interpret this result as normal/abnormal . RBC (test code = 0-2 See_Comment [Automated 76494-2) message] The system which generated this result transmit sven reference range : 0 - 2 /hpf. The reference range was not used to interpret this result as normal/abnormal . EPITHELIAL CELLS (NON 0-10 See_Comment [Auto mated RENAL) (test code = message] The 5787-7) system which generated this result transmit sven reference range : 0 - 10 /hpf. The reference range was not used to interpret this result as normal/abnormal . BACTERIA (test code = Moderate None seen/Few A 5769-5) FELICITA (test code = FELICITA) [facility] results reported in [place] Time. L[facility] Clinical Information:SRC :Urine ?LCA Source of Specimen:Urine Lab Interpretation Abnormal (test code = 63479-1) Kasia SeyboldCBC WITH DIFFERENTIAL/[id number] 13:17:00 Test Item Value Reference Range Interpretation Comments WHITE BLOOD CELL See_Comment [Automated (WBC) COUNT (test message] T he code = 6690-2) system which generated this result transmit sven reference range : 3.4 - 10.8 x10E3/uL. The reference range was not used to interpret this result as normal/abnormal . RED BLOOD CELL (RBC) See_Comment [Autom ated COUNT (test code = message] The 789-8) system which generated this result transmit sven reference range : 3.77 - 5.28 x10E6/uL. The reference range was not used to interpret this result as normal/abnormal . HEMOGLOBIN (test code 11.8 g/dL 11.1-15.9 = 718-7) HEMATOCRIT (test code 39.2 % 34.0-46.6 = 4544-3) MCV (test code = 83 fL 79-97 787-2) MCH (test code = 24.8 pg 26.6-33.0 L 785-6) MCHC (test code = 30.1 g/dL 31.5-35.7 L 786-4) RDW (test code = 18.2 % 11.7-15.4 H 788-0) PLATELETS (test code See_Comment [Autom ated = 777-3) message] The system which generated this result transmit sven reference range : 150 - 450 x10E3/uL. The reference range was not used to interpret this result as normal/abnormal . NEUTROPHILS (test 53 % Not Estab. code = 770-8) LYMPHS (test code = 32 % Not Estab. 736-9) MONOCYTES (test code 9 % Not Estab. = 5905-5) EOS (test code = 5 % Not Estab. 713-8) BASOS (test code = 1 % Not Estab. 706-2) NEUTROPHILS See_Comment [Automated (ABSOLUTE) (test code messag e] The = 511-8) system which generated this result transmit sven reference range : 1.4 - 7.0 x10E3/uL. The reference range was not used to interpret this result as normal/abnormal . LYMPHS (ABSOLUTE) See_Comment [Automate d (test code = 731-0) message] The system which generated this result transmit sven reference range : 0.7 - 3.1 x10E3/uL. The reference range was not used to interpret this result as normal/abnormal . MONOCYTES(ABSOLUTE) See_Comment [Automa sven (test code = 742-7) message] The system which generated this result transmit sven reference range : 0.1 - 0.9 x10E3/uL. The reference range was not used to interpret this result as normal/abnormal . EOS (ABSOLUTE) (test See_Comment [Autom ated code = 711-2) message] The system which generated this result transmit sven reference range : 0.0 - 0.4 x10E3/uL. The reference range was not used to interpret this result as normal/abnormal . BASO (ABSOLUTE) (test See_Comment [Auto mated code = 704-7) message] The system which generated this result transmit sven reference range : 0.0 - 0.2 x10E3/uL. The reference range was not used to interpret this result as normal/abnormal . IMMATURE GRANULOCYTES 0 % Not Estab. (test code = 01537-5) IMMATURE GRANS (ABS) See_Comment [Autom ated (test code = 25136-3) messag e] The system which generated this result transmit sven reference range : 0.0 - 0.1 x10E3/uL. The reference range was not used to interpret this result as normal/abnormal . FELICITA (test code = FELICITA) [facility] results reported in Eastern Time. [facility] Clinical Information:SRC :Blood, venous*Venipunc ture ? [facility] Source of Specimen:Blood, venous*Venipunc Lab Interpretation Abnormal (test code = 12759-6) Kasia JonesMI HEAD WO [id number] 00:47:44 No acute intracranial abnormality. Preliminary Report Dictated by Resident: Belkys Aponte MD., have reviewed this study and agree with theove report.Exam: CT HEAD WO CONTRASTHISTORY: Head trauma, minor, GCS>=13, high clinical risk, initial exam COMPARISON: None. TECHNIQUE: Noncontrast CT of the brain was obtained with coronal andsagittal reconstructions. FINDINGS: The ventricles and cerebral sulci are normal in caliber and configurationfor patient's age. No hydrocephalus, midline shift or pathological extra-axial fluidcollection is present. The basal cisterns are unremarkable. Partially emptysella. There is no acute intracranial hemorrhage or significant mass effect. Noparenchymal attenuation abnormality. The saldana-white matter differentiationis preserved. Intracranial atherosclerosis. The mastoid air cells and visualized paranasal air sinuses are clear. Thecalvarium and central skull base are unremarkable. Senescent calcificationsof the globes. [facility], Radiant Results Inft User - 01/18/2020 6:48 PM CSTExam: CT HEAD WO CONTRASTHISTORY: Head trauma, minor, GCS>=13, high clinical risk, initial exam COMPARISON: None.TECHNIQUE: Noncontrast CT of the brain was obtained with coronal andsagittal reconstructions.FINDINGS:The ventricles and cerebral sulci are normal in caliber and configurationfor patient's age. No hydrocephalus, midline shift or pathological extra-axial fluidcollection is present. The basal cisterns are unremarkable. Partially emptysella.There is no acute intracranial hemorrhage or significant mass effect. Noparenchymal attenuation abnormality. The saldana-white matter differentiationis preserved. Intracranial atherosclerosis.The mastoid air cells and visualized paranasal air sinuses are clear. Thecalvarium and central skull base are unremarkable.Senescent calcificationsof the globes.IMPRESSIONNo acute intracranial abnormality.Preliminary ReportDictated by Resident: Opal Alvarado MD., have reviewed this study and agree with theabove report.[facility]. METABOLIC PANEL (70931) 2020-01-19 00:02:00 Test Item Value Reference Range Interpretation Comments NA (test code = 138 mmol/L 135-145 8972525419) K (test code = 4.3 mmol/L 3.5-5 7677462561) CL (test code = 102 mmol/L 98-108 9215938591) CO2 TOTAL (test code = 27 mmol/L 23-31 4424753008) AGAP (test code = 2-16 1250627409) BUN (test code = 18 mg/dL 7-23 0964067767) GLUCOSE (test code = 294 mg/dL 70-110 H 6146973158) CREATININE (test code = 0.71 mg/dL 0.5-1.04 5546885205) TOTAL BILI (test code = 0.4 mg/dL 0.1-1.7 1459190824) CALCIUM (test code = 10.4 mg/dL 8.6-10.6 8951308475) T PROTEIN (test code = 7.7 g/dL 6.3-8.2 9387393343) ALBUMIN (test code = 4.6 g/dL 3.5-5 9873315434) ALK PHOS (test code = 73 U/L 34-122 6816540357) ALTv (test code = 26 U/L 5-35 1742-6) AST(SGOT) (test code = 29 U/L 13-40 0378038949) eGFR Calculation mL/min/1.73m2 (Non-) (test code = 2534801820) eGFR Calculation mL/min/1.73m2 () (test code = 1280996115) FELICITA (test code = FELICITA) Association of Glomerular Filtration Rate (GFR) and Staging of Kidney Disease* + --+ --+ ------+| GFR (mL/min/1.73 m2) ?| With Kidney Damage ?| ?Without Kidney Damage+ --------+ --------+ +| ?>90 ?| ?Stage one ?| ? Normal ?+ ---+ ---+ -------+| ?60-89 ?| ?Stage two ?| ? Decreased GFR ? + --+ --+ ------+| ?30-59 ?| ?Stage three ?| ? Stage three ? + --+ --+ ------+| ?15-29 ?| ?Stage four ? | ? Stage four ?+ ---+ ---+ -------+| ?<15 (or dialysis) ? ?| ?Stage five ? | ? Stage five ?+ ---+ ---+ -------+ *Each stage assumes the associated GFR level has been in effect for at least three months. ?Stages 1 to 5, with or without kidney disease, indicate chronic kidney disease. Notes: Determination of stages one and two (with eGFR >59mL/min/1.73 m2) requires estimation of kidney damage for at least three months as defined by structural or functional abnormalities of the kidney, manifested by either:Pathological abnormalities or Markers of kidney damage (including abnormalities in the composition of the blood or urine or abnormalities in imaging tests). Lab Interpretation Abnormal (test code = 53857-2) [facility] WITH [id number] 23:54:00 Test Item Value Reference Range Interpretation Comments WBC (test code = See_Comment [Automated message] 6690-2) The system [employer] generated this result transmitted ref erence range: 4.30 - 1 1.10 10*3/?L. The re ference range was not u sed to interpret this result as normal/abnor mal. RBC (test code = See_Comment [Automated message] 789-8) The system [employer] generated this result transmitted ref erence range: 3.93 - 5 .25 10*6/?L. The re ference range was not u sed to interpret this result as normal/abnor mal. HGB (test code = 12.2 g/dL 11.6-15 718-7) HCT (test code = 37.9 % 35.7-45.2 4544-3) MCV (test code = 85.9 fL 80.6-95.5 787-2) MCH (test code = 27.7 pg 25.9-32.8 785-6) MCHC (test code = 32.2 g/dL 31.6-35.1 786-4) RDW-SD (test code 40.7 fL 39-49.9 = 79161-2) RDW-CV (test code 13.1 % 12-15.5 = 788-0) PLT (test code = See_Comment [Automated message] 777-3) The system [employer] generated this result transmitted ref erence range: 166 - 35 8 10*3/?L. The re ference range was not u sed to interpret this result as normal/abnor mal. MPV (test code = 10.2 fL 9.5-12.9 12676-2) NRBC/100 WBC (test See_Comment [Automat ed message] code = 5283401346) The [employer] which generated this result transmitted ref erence range: 0.0 - 10 .0 /100 WBCs. The refer ence range was not u sed to interpret this result as normal/abnor mal. NRBC x10^3 (test <0.01 See_Comment [Automated message] code = 2771793650) The syste m which generated this result transmitted ref erence range: 10*3/?L. The reference range was not used to interpr et this result as normal/abnormal . GRAN MAT (NEUT) % 51.4 % (test code = 770-8) IMM GRAN % (test 0.70 % code = 4465097291) LYMPH % (test code 33.2 % = 736-9) MONO % (test code 9.0 % = 5905-5) EOS % (test code = 4.8 % 713-8) BASO % (test code 0.9 % = 706-2) GRAN MAT 2.91 10*3/uL 1.88-7.09 x10^3(ANC) (test code = 9365472742) IMM GRAN x10^3 0.04 10*3/uL 0-0.06 (test code = 8497104173) LYMPH x10^3 (test 1.88 10*3/uL 1.32-3.29 code = 731-0) MONO x10^3 (test 0.51 10*3/uL 0.33-0.92 code = 742-7) EOS x10^3 (test 0.27 10*3/uL 0.03-0.39 code = 711-2) BASO x10^3 (test 0.05 10*3/uL 0.01-0.07 code = 704-7) [facility] GLUCOSE (AUTOMATED)2019-10-14 16:44:00 Test Item Value Reference Range Interpretation Comments POCT GLU (test code = 2085691260) 331 mg/dL 70-110 H Lab Interpretation (test code = Abnormal 61919-6) [facility] GLUCOSE (AUTOMATED)2019-10-14 13:19:00 Test Item Value Reference Range Interpretation Comments POCT GLU (test code = 7093723553) 237 mg/dL 70-110 H Lab Interpretation (test code = Abnormal 81004-6) [facility] Metabolic Panel (NA, K, CL, CO2, GLUCOSE, BUN, CREATININE, CA)2019-10-14 12:35:00 Test Item Value Reference Range Interpretation Comments NA (test code = 135 mmol/L 135-145 6574438822) K (test code = 4.0 mmol/L 3.5-5 0740440959) CL (test code = 102 mmol/L 98-108 1752604305) CO2 TOTAL (test code = 26 mmol/L 23-31 5273689022) AGAP (test code = 2-16 1766930815) BUN (test code = 19 mg/dL 7-23 9307644082) GLUCOSE (test code = 269 mg/dL 70-110 H 2784879705) CREATININE (test code = 0.70 mg/dL 0.5-1.04 9179870911) CALCIUM (test code = 9.4 mg/dL 8.6-10.6 9285246671) eGFR Calculation mL/min/1.73m2 (Non-) (test code = 9694490349) eGFR Calculation mL/min/1.73m2 () (test code = 4139584722) FELICITA (test code = FELICITA) Association of Glomerular Filtration Rate (GFR) and Staging of Kidney Disease* + --+ --+ ------+| GFR (mL/min/1.73 m2) ?| With Kidney Damage ?| ?Without Kidney Damage+ --------+ --------+ +| ?>90 ?| ?Stage one ?| ? Normal ?+ ---+ ---+ -------+| ?60-89 ?| ?Stage two ?| ? Decreased GFR ? + --+ --+ ------+| ?30-59 ?| ?Stage three ?| ? Stage three ? + --+ --+ ------+| ?15-29 ?| ?Stage four ? | ? Stage four ?+ ---+ ---+ -------+| ?<15 (or dialysis) ? ?| ?Stage five ? | ? Stage five ?+ ---+ ---+ -------+ *Each stage assumes the associated GFR level has been in effect for at least three months. ?Stages 1 to 5, with or without kidney disease, indicate chronic kidney disease. Notes: Determination of stages one and two (with eGFR >59mL/min/1.73 m2) requires estimation of kidney damage for at least three months as defined by structural or functional abnormalities of the kidney, manifested by either:Pathological abnormalities or Markers of kidney damage (including abnormalities in the composition of the blood or urine or abnormalities in imaging tests). Lab Interpretation Abnormal (test code = 85191-1) [facility] Test Item Value Reference Range Interpretation Comments LIPASE (test code = 4488286798) 158 U/L 0-220 Lab Interpretation (test code = Normal 96236-6) [facility]81762[facility] (ALB,T.PRO,BILI T,BU/BC,ALT,AST,ALK PHOS)2019-10-14 12:35:00 Test Item Value Reference Range Interpretation Comments TOTAL BILI (test code = 9342569351) 0.4 mg/dL 0.1-1.1 BILI UNCON (test code = 9653983047) 0.5 mg/dL 0.1-1.1 BILI CONJ (test code = 3210614787) 0.0 mg/dL 0-0.3 T PROTEIN (test code = 0627401977) 7.3 g/dL 6.3-8.2 ALBUMIN (test code = 3271214709) 4.1 g/dL 3.5-5 ALK PHOS (test code = 2152570021) 46 U/L 34-122 ALTv (test code = 1742-6) 45 U/L 5-35 H AST(SGOT) (test code = 8926683349) 43 U/L 13-40 H Lab Interpretation (test code = Abnormal 45213-2) [facility] [id number] 12:26:00 Test Item Value Reference Range Interpretation Comments WBC (test code = See_Comment [Automated 8030-2) message] The sy stem which generated this result transmitted reference range : 4.30 - 11.10 10*3/?L. The reference range was not used to interpret this result as normal/abnormal . RBC (test code = See_Comment [Automated 649-8) message] The sy stem which generated this result transmitted reference range : 3.93 - 5.25 10*6/?L. The reference range was not used to interpret this result as normal/abnormal . HGB (test code = 11.7 g/dL 11.6-15 718-7) HCT (test code = 34.3 % 35.7-45.2 L 4544-3) MCV (test code = 86.2 fL 80.6-95.5 787-2) MCH (test code = 29.4 pg 25.9-32.8 785-6) MCHC (test code = 34.1 g/dL 31.6-35.1 786-4) RDW-SD (test code = 41.1 fL 39-49.9 99830-4) RDW-CV (test code = 13.1 % 12-15.5 788-0) PLT (test code = See_Comment [Automated 777-3) message] The sy stem which generated this result transmitted reference range : 166 - 358 10*3/ ?L. The reference r liya was not used to interpret this result as normal/abnormal . MPV (test code = 10.7 fL 9.5-12.9 26687-6) NRBC/100 WBC (test See_Comment [Automat ed code = 2727349260) message] The system which generated this result transmitted reference range : 0.0 - 10.0 /100 WBCs. The refer ence range was not u sed to interpret th is result as normal/abnormal . NRBC x10^3 (test code <0.01 See_Comment [Auto mated = 9640642537) message] The s ystem which generated this result transmitted reference range : 10*3/?L. The reference range was not used to interpret this result as normal/abnormal . GRAN MAT (NEUT) % 74.5 % (test code = 770-8) IMM GRAN % (test code 0.30 % = 1807490257) LYMPH % (test code = 16.3 % 736-9) MONO % (test code = 8.8 % 5905-5) EOS % (test code = 0.0 % 713-8) BASO % (test code = 0.1 % 706-2) GRAN MAT x10^3(ANC) 5.79 10*3/uL 1.88-7.09 (test code = 6993806785) IMM GRAN x10^3 (test <0.03 0-0.06 code = 1278692971) LYMPH x10^3 (test code 1.27 10*3/uL 1.32-3.29 L = 731-0) MONO x10^3 (test code 0.68 10*3/uL 0.33-0.92 = 742-7) EOS x10^3 (test code = <0.03 0.03-0.39 L 711-2) BASO x10^3 (test code <0.03 0.01-0.07 = 704-7) Lab Interpretation Abnormal (test code = 34712-1) [facility] GLUCOSE (AUTOMATED)2019-10-14 06:22:00 Test Item Value Reference Range Interpretation Comments POCT GLU (test code = 0092647236) 328 mg/dL 70-110 H Lab Interpretation (test code = Abnormal 44535-1) [facility] GLUCOSE (AUTOMATED)2019-10-14 01:39:00 Test Item Value Reference Range Interpretation Comments POCT GLU (test code = 424 mg/dL 70-110 H Notifi ed Provider 1402318860) Lab Interpretation (test Abnormal code = 91604-9) [facility] GLUCOSE (AUTOMATED)2019-10-13 21:45:00 Test Item Value Reference Range Interpretation Comments POCT GLU (test code = 7841422567) 282 mg/dL 70-110 H Lab Interpretation (test code = Abnormal 95768-8) [facility] (NON-REPORTABLE)2019-10-13 15:31:01 These images do not require a Radiology diagnostic report.[facility] GLUCOSE (AUTOMATED)2019-10-13 13:05:00 Test Item Value Reference Range Interpretation Comments POCT GLU (test code = 2990847758) 167 mg/dL 70-110 H Lab Interpretation (test code = Abnormal 19848-0) [facility]OLIC [facility] (84485)2019-10-13 12:42:00 Test Item Value Reference Range Interpretation Comments NA (test code = 137 mmol/L 135-145 5675810811) K (test code = 4.0 mmol/L 3.5-5 5981443818) CL (test code = 107 mmol/L 98-108 0777579136) CO2 TOTAL (test code = 25 mmol/L 23-31 9672448070) AGAP (test code = 2-16 7472062439) BUN (test code = 11 mg/dL 7-23 1534919183) GLUCOSE (test code = 154 mg/dL 70-110 H 2627111345) CREATININE (test code = 0.56 mg/dL 0.5-1.04 7950776966) TOTAL BILI (test code = 0.3 mg/dL 0.1-1.1 4717601366) CALCIUM (test code = 9.1 mg/dL 8.6-10.6 8661405055) T PROTEIN (test code = 6.5 g/dL 6.3-8.2 1666901117) ALBUMIN (test code = 3.6 g/dL 3.5-5 5545232076) ALK PHOS (test code = 40 U/L 34-122 9741912550) ALTv (test code = 24 U/L 5-35 1742-6) AST(SGOT) (test code = 31 U/L 13-40 1308419222) eGFR Calculation mL/min/1.73m2 (Non-) (test code = 6329857073) eGFR Calculation mL/min/1.73m2 () (test code = 0721325085) FELICITA (test code = FELICITA) Association of Glomerular Filtration Rate (GFR) and Staging of Kidney Disease* + --+ --+ ------+| GFR (mL/min/1.73 m2) ?| With Kidney Damage ?| ?Without Kidney Damage+ --------+ --------+ +| ?>90 ?| ?Stage one ?| ? Normal ?+ ---+ ---+ -------+| ?60-89 ?| ?Stage two ?| ? Decreased GFR ? + --+ --+ ------+| ?30-59 ?| ?Stage three ?| ? Stage three ? + --+ --+ ------+| ?15-29 ?| ?Stage four ? | ? Stage four ?+ ---+ ---+ -------+| ?<15 (or dialysis) ? ?| ?Stage five ? | ? Stage five ?+ ---+ ---+ -------+ *Each stage assumes the associated GFR level has been in effect for at least three months. ?Stages 1 to 5, with or without kidney disease, indicate chronic kidney disease. Notes: Determination of stages one and two (with eGFR >59mL/min/1.73 m2) requires estimation of kidney damage for at least three months as defined by structural or functional abnormalities of the kidney, manifested by either:Pathological abnormalities or Markers of kidney damage (including abnormalities in the composition of the blood or urine or abnormalities in imaging tests). Lab Interpretation Abnormal (test code = 77645-1) [facility]00 Test Item Value Reference Range Interpretation Comments LIPASE (test code = 9852212903) 130 U/L 0-220 Lab Interpretation (test code = Normal 83915-9) [facility] with [id number] 12:16:00 Test Item Value Reference Range Interpretation Comments WBC (test code = See_Comment L [Automated 6690-2) message] The sy stem which generated this result transmitted reference range : 4.30 - 11.10 10*3/?L. The reference range was not used to interpret this result as normal/abnormal . RBC (test code = See_Comment L [Automated 789-8) message] The sy stem which generated this result transmitted reference range : 3.93 - 5.25 10*6/?L. The reference range was not used to interpret this result as normal/abnormal . HGB (test code = 11.2 g/dL 11.6-15 L 718-7) HCT (test code = 34.9 % 35.7-45.2 L 4544-3) MCV (test code = 89.5 fL 80.6-95.5 787-2) MCH (test code = 28.7 pg 25.9-32.8 785-6) MCHC (test code = 32.1 g/dL 31.6-35.1 786-4) RDW-SD (test code = 43.5 fL 39-49.9 76422-1) RDW-CV (test code = 13.2 % 12-15.5 788-0) PLT (test code = See_Comment [Automated 777-3) message] The sy stem which generated this result transmitted reference range : 166 - 358 10*3/ ?L. The reference r liya was not used to interpret this result as normal/abnormal . MPV (test code = 10.2 fL 9.5-12.9 53769-8) NRBC/100 WBC (test See_Comment [Automat ed code = 8967700125) message] The system which generated this result transmitted reference range : 0.0 - 10.0 /100 WBCs. The refer ence range was not u sed to interpret th is result as normal/abnormal . NRBC x10^3 (test code <0.01 See_Comment [Auto mated = 9964197762) message] The s ystem which generated this result transmitted reference range : 10*3/?L. The reference range was not used to interpret this result as normal/abnormal . GRAN MAT (NEUT) % 47.5 % (test code = 770-8) IMM GRAN % (test code 0.20 % = 4354340924) LYMPH % (test code = 36.4 % 736-9) MONO % (test code = 10.3 % 5905-5) EOS % (test code = 4.9 % 713-8) BASO % (test code = 0.7 % 706-2) GRAN MAT x10^3(ANC) 2.02 10*3/uL 1.88-7.09 (test code = 2680459051) IMM GRAN x10^3 (test <0.03 0-0.06 code = 2619551029) LYMPH x10^3 (test code 1.55 10*3/uL 1.32-3.29 = 731-0) MONO x10^3 (test code 0.44 10*3/uL 0.33-0.92 = 742-7) EOS x10^3 (test code = 0.21 10*3/uL 0.03-0.39 711-2) BASO x10^3 (test code 0.03 10*3/uL 0.01-0.07 = 704-7) Lab Interpretation Abnormal (test code = 79413-9) [facility]DENS[facility] LIPOPROTEIN, [id number] 08:29:00 Test Item Value Reference Range Interpretation Comments dLDL Chol (test code = 84896-6) 76 mg/dL <130 Lab Interpretation (test code = Normal 29643-2) [facility]2019-10-12 22:49:00 Test Item Value Reference Range Interpretation Comments POCT GLU (test code = 3064844719) 249 mg/dL 70-110 H Lab Interpretation (test code = Abnormal 21118-6) [facility] HospitalLIPID PANEL (50126)(TOTAL CHOLESTEROL, TRIGLYCERIDES, HDL)2019-10-12 21:11:00 Test Item Value Reference Range Interpretation Comments CHOL (test code = 172 mg/dL 120-200 5438861358) HDL (test code = 32 mg/dL >50 L 2490137536) HDLC RATIO (test code = See_Comment H [Au tomated message] 6112716603) The system [employer] generated this result transmitted ref erence range: <=4.5. T he reference range was not used to int erpret this result as normal/abnormal . TRIG (test code = 491 mg/dL 30-170 H 4271113634) LDL CHOL (test code = Unable to calculate 82575-6) LDL due to elev ated triglyceride le tatyana greater than 40 0 mg/dL. VLDL (test code = 98 mg/dL 5-60 H 8512288901) Lab Interpretation Abnormal (test code = 01828-1) [facility] GLUCOSE (AUTOMATED)2019-10-12 21:05:00 Test Item Value Reference Range Interpretation Comments POCT GLU (test code = 6766155679) 180 mg/dL 70-110 H Lab Interpretation (test code = Abnormal 30325-5) [facility] GLUCOSE (AUTOMATED)2019-10-12 16:39:00 Test Item Value Reference Range Interpretation Comments POCT GLU (test code = 4984797421) 212 mg/dL 70-110 H Lab Interpretation (test code = Abnormal 48606-1) [facility] HospitalUS GALL [id number] 14:16:58HISTORY: Gallstones, pancreatitis. TECHNIQUE: Gallbladder is evaluated in multiple planes with the patient indifferent positions. Color imaging is utilized. FINDINGS: Comparison is made with yesterday night CT studies. Gallbladder is of normal size and shape with mild diffuse thickening of thewalls. Single mobile gallstone of approximately 6.6 mm size noted in thedependent portion of the gallbladder l umen. Focal bright echo is seen in the anterior wall near the fundus which couldbe a small 2 mm polyp. No biliary sludge or crystals seen. No free fluiddetected in pericholecystic space. Common hepatic duct is 4.1 mm. Thepancreas is completely obscured due to gas. Hepatic and portal venoussystem appeared patent. CONCLUSION: Chronic cholecystitis with single mobile gallstone. [facility], Radiant Results Inft User - 10/12/2019 9:18 AM CDTHISTORY: Gallstones, pancreatitis.TECHNIQUE: Gallbladder is evaluated in multiple planes with the patient indifferent positions. Color imaging is utilized.FINDINGS: C omparison is made with yesterday night CT studies.Gallbladder is of normal size and shape with mild diffuse thickening of thewalls. Single mobile gallstone of approximately 6.6 mm size noted in thedependent portion of the gallbladder lumen. Focal bright echo is seen in the anterior wall near the fundus which couldbe a small 2 mm polyp. No biliary sludge or crystals seen. No free fluiddetected in pericholecystic space. Common hepatic duct is 4.1 mm. Thepancreas is completely obscured due to gas. Hepatic and portal venoussystem appeared patent. CONCLUSION: Chronic cholecystitis with single mobile gallstone. [facility] P[facility] W [id number] 13:04:17 1. ?Minimal fullness of the pancreatic head may be related to subclinicalinflammation. However, there is no discernible pancreatic or peripancreaticinflammatory change or stranding despite lipase elevations. No drainableretroperitoneal collections. 2. ?Cholelithiasis without CT findings indicative ofacute cholecystitis. 3. ?Nonobstructive right nephrolithiasis. 4. ?Noncalcified atherosclerotic plaque affecting a short segment ofinfrarenal abdominal aorta results in mild to moderate luminal stenosis. Nodissection, large vessel occlusion, or significant ostial stenosis. 5. ?Mild degenerative changes of the thoracolumbar spine with multifocaldisc osteophyte complex spanning T12-L3 with resultant mild to moderatespinal canal stenoses at these levels. Preliminary Report Dictated by Resident: Briseyda Haro ?MD. Zenaida, have reviewed this study and agree with theabove report.EXAM: CT ABDOMEN AND PELVIS WITH CONTRAST HISTORY: Epigastric pain. Concern for abdominal infection. COMPARISON: None. TECHNIQUE AND FINDINGS: Contiguous axial imaging from the level of the lungbases through the proximal femurs was performed after the uncomplicatedadministration of intravenous contrast and oral Omnipaque contrast. Coronaland sagittal reconstructions were obtained. ?Auto mA and/or iterativereconstruction were used to reduce radiation dose. FINDINGS: LOWER THORAX: Please refer to the concurrently obtained, separatelydictated, CT thorax report for detailed intrathoracic findings. LIVER: No focal hepatic lesions. ?[id number] contour. GALLBLADDER AND BILIARY TREE: Partially decompressed gallbla dder containingcholelithiasis. No pericholecystic inflammatory change or free fluid. Nobiliary ductal dilation. ? SPLEEN: No splenomegaly. Minimal fullness of the pancreatic head withoutdiscernible pancreatic or peripancreatic inflammatory change or stranding.No discernible pancreatic mass. PANCREAS: No ductal dilation or masses. ADRENAL GLANDS: No adrenal nodules. KIDNEYS: 2.2 cm right lower renal pole hypoattenuating lesion within theenhancing septation represents a Bosniak 2F lesion (27:71). Suspected 9 mmright lower renal pole nonobstructive calculus (evaluation is limited dueto contrast excreted within the collecting system). Bilateral cortical scarring most prominent within the right lower renalpole. Pattern of scarring is suggestive of ?prior percutaneous nephrostomytube. Few bilateral sub-5 mm vertical hypoattenuating lesions are too small tocharacterize. No hydronephrosis. PERITONEUM AND RETROPERITONEUM: No free air or fluid. LYMPH NODES: No lymphadenopathy. GI TRACT: No dilation or wall thickening. Normal appendix (27:103). Smallsliding-type hiatal hernia. PELVIS/BLADDER: The uteruswithin normal limits. Unremarkable left ovary. 1cm right ovarian dominant follicle. The urinary bladder is mildly to moderately distended and containsopacified ureteral jets. Unremarkable urinary bladder horta. VESSELS: Background of moderate calcified and noncalcified aortoiliacatherosclerosis. A short segment of infrarenal abdominal aorta demonstratesmild to moderate luminal stenosis secondary to noncalcified atheroscleroticplaque (most prominent at 27:72). No large vessel occlusion. No significantostial stenosis Two calcified foci measuring 0.8 and 1.0 cm at the splenic hilum areconcerning for splenic artery aneurysms (27:35). BONES AND SOFT TISSUES: No suspicious lytic or sclerotic bony lesions.Multilevel mild thoracolumbar spondylosis. Prominent concentric posteriordisc osteophyte complex spanning T12-L3 results in mild to moderate spinalcanal stenosis at these levels. [facility], Radiant ResultsInft User - 10/12/2019 8:05 AM CDTEXAM: CT ABDOMEN AND PELVIS WITH CONTRASTHISTORY: Epigastric pain. Concern for abdominal infection.COMPARISON: None.TECHNIQUE AND FINDINGS: Contiguous axial imaging from the level of the lungbases through the proximal femurs was performed after the uncomplicatedadministration of intravenous contrast and oral Omnipaque contrast. Coronaland sagittal reconstructions were obtained. Auto mA and/or iterativereconstruction were used to reduce radiation dose.FINDINGS:LOWER THORAX: Please refer to the concurrently obtained, separatelydictated, CT thorax report for detailed intrathoracic findings.LIVER: No focal hepatic lesions. [id number] contour.GALLBLADDER AND BILIARY TREE: Partially decompressed gallbladder containingcholelithiasis. No pericholecystic inflammatory change or free fluid. Nobiliary ductal dilation. SPLEEN: No splenomegaly. Minimal fullness of the pancreatic head withoutdiscernible pancreatic or peripancreatic inflammatory change or stranding.No discernible pancreatic mass.PANCREAS: No ductal dilation or masses.ADRENAL GLANDS: No adrenal nodules.KIDNEYS: 2.2 cm right lower renal pole hypoattenuating lesion within theenhancing septation represents a Bosniak 2F lesion (27:71). Suspected 9 mmright lower renal pole nonobstructive calculus (evaluation is limited dueto contrast excreted within the collecting system).Bilateral cortical scarring most prominent within the right lower renalpole. Pattern of scarring is suggestive of prior percutaneous nephrostomytube.Few bilateral sub-5 mm vertical hypoattenuating lesions are too small tocharacterize.No hydronephrosis. PERITONEUM AND RETROPERITONEUM: No free air or fluid.LYMPH NODES: No lymphadenopathy.GI TRACT: No dilation or wall thickening. Normal appendix (27:103). Smallsliding-type hiatal hernia.PEL VIS/BLADDER: The uterus within normal limits. Unremarkable left ovary. 1cm right ovarian dominant follicle.The urinary bladder is mildly to moderately distended and containsopacified ureteral jets. Unremarkable urinary bladder horta.VESSELS: Background of moderate calcified and noncalcified aortoiliacatherosclerosis. A short segment of infrarenal abdominal aorta demonstratesmild to moderate luminal stenosis secondary to noncalcified atheroscleroticplaque (most prominent at 27:72). No large vessel occlusion. No significantostial stenosisTwo calcified foci measuring 0.8 and 1.0 cm at the splenic hilum areconcerning for splenic artery aneurysms (27:35).BONES AND SOFT TISSUES: No suspicious lytic or sc lerotic bony lesions.Multilevel mild thoracolumbar spondylosis. Prominent concentric posteriordisc osteophyte complex spanning T12-L3 results in mild to moderate spinalcanal stenosis at these levels.IMPRESSION1. Minimal fullness of the pancreatic head may be related to subclinicalinflammation. However, there is no discernible pancreatic or peripancreaticinflammatory change or stranding despite lipase elevations. No drainableretroperitoneal collections.2. Cholelithiasis without CT findings indicative of acute cholecystitis. 3. Nonobstructive right nephrolithiasis.4. Noncalcified atherosclerotic plaque affecting a short segment ofinfrarenal abdominal aorta results in mild to moderate luminal stenosis. Nodissection, large vessel occlusion, or significant ostial stenosis.5. Mild degenerative changes of the thoracolumbar spine with multifocaldisc osteophyte complex spanning T12-L3 with resultantmild to moderatespinal canal stenoses at these levels.Preliminary Report Dictated by Resident: Briseyda Sierra MD., have reviewed this study and agree with theabove report.[facility] [id number] 12:37:46 1. ?No evidence of a pulmonary embolism to the level of the subsegmentalbranches. No dissection or aneurysm. 2. ?A 0.7 cm left upper lobe and a 0.8 cm right upper lobe groundglassnodules may be related to an infectious/inflammatory process. Neoplasticprocess is not ruled out. A follow up CT thorax in6 months is recommended. Preliminary Report Dictated by Resident: Dayana Combs I, Bentley Amaral MD., have reviewed this study and agree with theabove report.PROCEDURE: CT ANGIO CHEST WITH CONTRAST - PE PROTOCOL CLINICAL INDICATION: Chest pain. COMPARISON: None. TECHNIQUE: ?Helical CT was performed and reconstructed at 1.25 mm slicethickness from lung base to apices after the administration of intravenouscontrast, without complication. ?3D axial MIPS and coronal MPR images weregenerated under radiologist supervision, and reviewed to further defineanatomy andpossible pathology. Display field of view: 34 cm. FINDINGS: PULMONARY ARTERIES:Enhancement is adequate, and there is no acute or chronic pulmonaryembolism. CHEST:Lower neck/thyroid: Unremarkable. Lungs: A 0.7 cm groundglass nodule within the left upper lobe (12:53). A0.8 cm groundglass nodule within the right upper lobe (12:54).. Central airway: Unremarkable. Pleura: No pleural effusion, thickening or pneumothorax. Thoracic aorta and great vessels: Bovine arch anatomy. Minimal calcifiedand noncalcified atherosclerosis of the aortic arch and thoracic aorta.Circumferential atherosclerotic plaque at the origin of left subclavianartery without significant luminal narrowing. No dissection or aneurysm. Heart and pericardium: Mild coronary artery calcifications. Calcificationsof the aortic root. Unremark able cardiac morphology and pericardium. Lymph nodes: No enlarged thoracic lymph nodes. Mediastinum:Unremarkable. Thoracic spine and chest wall: Mild Spondylosis. Normal thoracic vertebralbody heights. Left shoulder osteoarthrosis. Visualized upper abdomen: Please refer to the concurrently obtained,separately dictated, CT abdomen/pelvis report for detailed intra- abdominalfindings. . [facility], [facility] Results In[facility] User - 10/12/2019 7:42 AM CDTPROCEDURE: CT ANGIO CHEST WITH CONTRAST - PE PROTOCOLCLINICAL INDICATION: Chest pain.COMPARISON: None.TECHNIQUE: Helical CT was performed and reconstructed at 1.25 mm slicethickness from lung base to apices after the administration of intravenouscontrast, without complication. 3D axial MIPS and coronal MPR images weregenerated under radiologist supervision, and reviewed to further defineanatomy and possible pathology. Display field of view: 34 cm.FINDINGS:PULMONARY ARTERIES:Enhancement is adequate, and there is no acute or chronic pulmonaryembolism.CHEST:Lower neck/thyroid: Unremarkable.Lungs: A 0.7 cm groundglass nodule within the left upper lobe (12:53). A0.8 cm groundglass nodule within the right upper lobe (12:54)..Central airway: Unremarkable.Pleura: No pleural effusion, thickening or pneumothorax.Thoracic aorta and great vessels: Bovine arch anatomy. Minimal calcifiedand noncalcified atherosclerosis of the aortic arch and thoracic aorta.Circumferential atherosclerotic plaque at the origin of left subclavianartery without significant luminal narrowing. No dissection or aneurysm.Heart and pericardium: Mild coronary artery calcifications. Calcificationsof the aortic root. Unremarkable cardiac morphology and pericardiu m.Lymph nodes: No enlarged thoracic lymph nodes.Mediastinum: Unremarkable.Thoracic spine and chest wall: Mild Spondylosis. Normal thoracic vertebralbody heights. Left shoulder osteoarthrosis.Visualizedupper abdomen: Please refer to the concurrently obtained,separately dictated, CT abdomen/pelvis report for detailed intra-abdominalfindings. . IMPRESSION1. No evidence ofa pulmonary embolism to the level of the subsegmentalbranches. No dissection or aneurysm.2. A 0.7 cm left upper lobe and a 0.8 cm right upper lobe groundglassnodules may be related to an infectious/inflammatory process. Neoplasticprocess is not ruled out. A follow up CT thorax in 6 months is recommend ed. Preliminary Report Dictated by Resident: Bentley Butterfield MD., have reviewed this study and agree with theabove report.[facility] HospitalWILLY [id number] 12:12:00 Test Item Value Reference Range Interpretation Comments TROPONIN I (test <0.012 See_Comment [Automated code = 7936467680) message] The system which generated this result transmitted reference range : <=0.034 ng/mL. The reference range was not used to interpr et this result as normal/abnormal . FELICITA (test code = Equal or Less than FELICITA) 0.034 ng/ml---Normal ?Note: Cardiac troponin begins to rise 3-4 hours after the onset of ischemia. Repeat in 4-6 hours if the sample was drawn within 3-4 hours of the onset of the symptom and found normal. Between 0.035 and 0.120 ng/mL--- Borderline. Questionable myocardial injury or necrosis ? ?Note: Serial measurement may be necessary to confirm or exclude the diagnosis of myocardial injury or necrosis; Clinical correlation (symptoms, EKGs, imaging studies, and others) required; Repeat in 4-6 hours if clinically indicated. ? Equal or Higher than 0.121 ng/mL---Abnormal. Myocardial Injury or Necrosis Likely ? Biotin has been reported to cause a negative bias, interpret results relative to patient's use of biotin. ? Lab Interpretation Normal (test code = 69507-7) [facility] HospitalGlycosylated Hemoglobin (A1C)2019-10-12 12:05:00 Test Item Value Reference Range Interpretation Comments HGB A1C (test code = 9.0 % 4-6 H 4548-4) FELICITA (test code = FELICITA) %A1C (NGSP) Interpretation (ADA)4.8-5.6 ? ? Normal or (Non-Diabetic Range)5.7-6.4 ? ? Increased Risk (Pre-Diabetic)>6.5 ?Diabetes Indicated Lab Interpretation Abnormal (test code = 82591-6) [facility]2020-[facility] 12:01:00 Test Item Value Reference Range Interpretation Comments LIPASE (test code = 5496201823) 500 U/L 0-220 H Lab Interpretation (test code = Abnormal 49901-5) [facility] HospitalPOCT GLUCOSE (AUTOMATED)2019-10-12 10:34:00 Test Item Value Reference Range Interpretation Comments POCT GLU (test code = 1582256307) 251 mg/dL 70-110 H Lab Interpretation (test code = Abnormal 25989-9) [facility] HospitalXR CHEST 1 VW [id number] 05:33:21 No acute intrathoracic abnormality, specifically no detectable radiographicfindings to suggest COVID-19 pneumonia. Disclaimer: Generally, the findings on chest imaging in COVID-19 are notspecific, and overlap with other infections, including influenza, H1N1,SARS and MERS.According to the Centers forDisease Control (CDC) and recent statement ofthe [place] [employer], viral testing remains the only specificmethod of diagnosis. Confirmation with the viral test is required, even ifradiologic findings are suggestive of COVID-[address]. Preliminary Report Dictated by Resident: MingKya Kinney MD., have reviewed this study and agree with the abovereport.PROCEDURE: CHEST, SINGLE VIEW . CLINICAL INDICATION: chest pain COMPARISON: None FINDINGS: The lungs are clear. No pleural effusion or pneumothorax is seen. The aorta is tortuous with amildly calcified aortic arch. The heart is normal in size. No acute bony abnormality. Surgical clips project over the right neck. [facility], [facility] User - 10/12/2019 12:34 AM CDTPROCEDURE: CHEST, SINGLE VIEW .CLINICAL INDICATION: chest pain COMPARISON: NoneFINDINGS:The lungs are clear.No pleural effusion or pneumothorax is seen. The aorta is tortuous with amildly calcified aortic arch. The heart is normal in size.No acute bony abnormality.Surgical clips project over the right neck.IMPRESSIONNo acute intrathoracic abnormality, specifically no detectable radiographicfindings to suggest COVID-19 pneumonia.Disclaimer: Generally, the findings on chest imaging in COVID-19 are notspecific, and overlap with other infections, including influenza, H1N1,SARS and MERS.According to the Centers for Disease Control (CDC) and recent statement ofthe [place] [employer], viral testing remains the only specificmethod of diagnosis. Confirmation with the viral test is required, even ifradiologic findings are suggestive of COVID-[address]. Preliminary Report Dictated by Resident: Kya Vigil MD., [facility] reviewed this study and agree with the abovereport.[facility]LIPASE2020-08-[facility] 03:07:00 Test Item Value Reference Range Interpretation Comments LIPASE (test code = 1329210680) 4504 U/L 0-220 H Lab Interpretation (test code = Abnormal 93352-1) [facility] HospitalTROPONIN [id number] 02:38:00 Test Item Value Reference Range Interpretation Comments TROPONIN I (test <0.012 See_Comment [Automated code = 7238246991) message] The system which generated this result transmitted reference range : <=0.034 ng/mL. The reference range was not used to interpr et this result as normal/abnormal . FELICITA (test code = Equal or Less than FELICITA) 0.034 ng/ml---Normal ?Note: Cardiac troponin begins to rise 3-4 hours after the onset of ischemia. Repeat in 4-6 hours if the sample was drawn within 3-4 hours of the onset of the symptom and found normal. Between 0.035 and 0.120 ng/mL--- Borderline. Questionable myocardial injury or necrosis ? ?Note: Serial measurement may be necessary to confirm or exclude the diagnosis of myocardial injury or necrosis; Clinical correlation (symptoms, EKGs, imaging studies, and others) required; Repeat in 4-6 hours if clinically indicated. ? Equal or Higher than 0.121 ng/mL---Abnormal. Myocardial Injury or Necrosis Likely ? Biotin has been reported to cause a negative bias, interpret results relative to patient's use of biotin. ? Lab Interpretation Normal (test code = 21964-3) [facility] HospitalN-TERMINAL [id number] 02:35:00 Test Item Value Reference Range Interpretation Comments NT-proBNP (test code 115 pg/mL See_Comment [Autom ated = 9771254869) message] The system which generated this result transmitted reference range : <=125. The reference range was not used to interpret this result as normal/abnormal . FELICITA (test code = FELICITA) Biotin has been reported to cause a negative bias, interpret results relative to patient's use of biotin. Lab Interpretation Normal (test code = 27353-7) [facility] HospitalCOMP. METABOLIC PANEL (15259)2019-10-12 02:26:00 Test Item Value Reference Range Interpretation Comments NA (test code = 134 mmol/L 135-145 L 2121653199) K (test code = 4.4 mmol/L 3.5-5 2635493453) CL (test code = 100 mmol/L 98-108 9508621154) CO2 TOTAL (test code = 24 mmol/L 23-31 3962809582) AGAP (test code = 2-16 1340337889) BUN (test code = 28 mg/dL 7-23 H 8139133449) GLUCOSE (test code = 253 mg/dL 70-110 H 6017608913) CREATININE (test code = 0.88 mg/dL 0.5-1.04 2170410384) TOTAL BILI (test code = 0.2 mg/dL 0.1-1.6 8690121291) CALCIUM (test code = 10.5 mg/dL 8.6-10.6 2247925270) T PROTEIN (test code = 7.8 g/dL 6.3-8.2 4002146493) ALBUMIN (test code = 4.5 g/dL 3.5-5 2814004450) ALK PHOS (test code = 60 U/L 34-122 9744274374) ALTv (test code = 19 U/L 5-35 1742-6) AST(SGOT) (test code = 22 U/L 13-40 8488108335) eGFR Calculation mL/min/1.73m2 (Non-) (test code = 7844206932) eGFR Calculation mL/min/1.73m2 () (test code = 4381172677) FELICITA (test code = FELICITA) Association of Glomerular Filtration Rate (GFR) and Staging of Kidney Disease* + --+ --+ ------+| GFR (mL/min/1.73 m2) ?| With Kidney Damage ?| ?Without Kidney Damage+ --------+ --------+ +| ?>90 ?| ?Stage one ?| ? Normal ?+ ---+ ---+ -------+| ?60-89 ?| ?Stage two ?| ? Decreased GFR ? + --+ --+ ------+| ?30-59 ?| ?Stage three ?| ? Stage three ? + --+ --+ ------+| ?15-29 ?| ?Stage four ? | ? Stage four ?+ ---+ ---+ -------+| ?<15 (or dialysis) ? ?| ?Stage five ? | ? Stage five ?+ ---+ ---+ -------+ *Each stage assumes the associated GFR level has been in effect for at least three months. ?Stages 1 to 5, with or without kidney disease, indicate chronic kidney disease. Notes: Determination of stages one and two (with eGFR >59mL/min/1.73 m2) requires estimation of kidney damage for at least three months as defined by structural or functional abnormalities of the kidney, manifested by either:Pathological abnormalities or Markers of kidney damage (including abnormalities in the composition of the blood or urine or abnormalities in imaging tests). Lab Interpretation Abnormal (test code = 86239-2) [facility] HospitalCOVID-19 (ID NOW RAPID TESTING)2019-10-12 02:24:00 Test Item Value Reference Range Interpretation Comments SARS-CoV-2 Rapid ID NOW Not Detected Not Detected (test code = 66433-0) FELICITA (test code = FELICITA) ID NOW COVID-19 Assay is an isothermal nucleic acid amplification test intended for the qualitative detection of nucleic acid from SARS-CoV-2 viral RNA in nasopharyngeal ([employer] PROF[employer]OR) specimens. It is used under Emergency Use Authorization (EUA) by FDA. The limit of detection (LOD) of the assay is 125 Genome Equivalents/mL. A positive result is indicative of the presence of SARS-CoV-2 RNA. ?Clinical correlation with patient history and other diagnostic [...] for repeat patient testing if clinically indicated. Lab Interpretation Normal (test code = 97772-3) [facility] HospitalPROTHROMBIN TIME / [id number] 02:11:00 Test Item Value Reference Range Interpretation Comments PROTIME PATIENT (test See_Comment [Auto mated message] code = 5964-2) The system [employer] generated this result transmitted ref erence range: 12.0 - 1 4.7 Seconds. The re ference range was not u sed to interpret this result as normal/abnor mal. INR (test code = 6301-6) Nor mal INR <1.1; Warfarin Therap eutic range 2.0 to 3. 0 or 2.5 to 3.5, dep ending upon the indica tions. Lab Interpretation (test Normal code = 45380-4) [facility] HospitalCBC WITH [id number] 02:04:00 Test Item Value Reference Range Interpretation Comments WBC (test code = See_Comment [Automated message] 6690-2) The system [employer] h generated this result transmitted ref erence range: 4.30 - 1 1.10 10*3/?L. The re ference range was not u sed to interpret this result as normal/abnor mal. RBC (test code = See_Comment [Automated message] 149-8) The system [employer] generated this result transmitted ref erence range: 3.93 - 5 .25 10*6/?L. The re ference range was not u sed to interpret this result as normal/abnor mal. HGB (test code = 12.5 g/dL 11.6-15 718-7) HCT (test code = 37.6 % 35.7-45.2 4544-3) MCV (test code = 87.2 fL 80.6-95.5 787-2) MCH (test code = 29.0 pg 25.9-32.8 785-6) MCHC (test code = 33.2 g/dL 31.6-35.1 786-4) RDW-SD (test code 40.9 fL 39-49.9 = 22900-4) RDW-CV (test code 12.9 % 12-15.5 = 788-0) PLT (test code = See_Comment [Automated message] 777-3) The system [employer] generated this result transmitted ref erence range: 166 - 35 8 10*3/?L. The re ference range was not u sed to interpret this result as normal/abnor mal. MPV (test code = 10.2 fL 9.5-12.9 68340-5) NRBC/100 WBC (test See_Comment [Automat ed message] code = 3095408060) The syste m which generated this result transmitted ref erence range: 0.0 - 10 .0 /100 WBCs. The refer ence range was not u sed to interpret this result as normal/abnor mal. NRBC x10^3 (test <0.01 See_Comment [Automated message] code = 4798687226) The syste m which generated this result transmitted ref erence range: 10*3/?L. The reference range was not used to interpr et this result as normal/abnormal . GRAN MAT (NEUT) % 46.5 % (test code = 770-8) IMM GRAN % (test 0.50 % code = 4659762023) LYMPH % (test code 38.7 % = 736-9) MONO % (test code 9.3 % = 5905-5) EOS % (test code = 4.1 % 713-8) BASO % (test code 0.9 % = 706-2) GRAN MAT 2.71 10*3/uL 1.88-7.09 x10^3(ANC) (test code = 8192094244) IMM GRAN x10^3 0.03 10*3/uL 0-0.06 (test code = 6455604067) LYMPH x10^3 (test 2.25 10*3/uL 1.32-3.29 code = 731-0) MONO x10^3 (test 0.54 10*3/uL 0.33-0.92 code = 742-7) EOS x10^3 (test 0.24 10*3/uL 0.03-0.39 code = 711-2) BASO x10^3 (test 0.05 10*3/uL 0.01-0.07 code = 704-7) [facility]"
[2021-03-29] MEDS ORDERED: ASPIRIN 81 MG CHEWABLE TABLET ONE (19:22)
[2021-03-29 19:48] LABS: Absolute Lymphocytes (CBC) 1.9 K/uL (0.7-4.9); Hematocrit 38.6 % (36.0-45.0); Lymphocytes % 33.1 % (15.3-44.8); MPV 8.6 fL (7.6-11.3); RBC Red Blood Cell Count 4.44 M/uL (3.86-4.86)
--- NOTE | 2021-03-29 19:48 | P.HP ---
Certification for Inpatient Patient admitted to: Observation With expected LOS: <2 Midnights Patient will require the following post-hospital care: None Practitioner: I am a practitioner with admitting privileges, knowledge of patient current condition, hospital course, and medical plan of care. Services: Services provided to patient in accordance with Admission requirements found in Title 42 Section 412.3 of the Code of Federal Regulations Patient History Date of Service: 03/29/21 Primary Care Provider: Kasia Jones Reason for admission: Chest pain History of Present Illness: 75-year-old male with history of diabetes mellitus type 2insulin- dependent, hypertension, hyperlipidemia, CAD presents the emergency department for chest pain. Patient reports has had intermittent chest pain and nausea for the last 3 days with some associated shortness of breath, the pain described as tightness/sharp radiating to shoulders bilaterally. Patient was evaluated in the emergency department initial troponin negative EKG without ST elevation lipase mildly elevated, CT without sign of acute pancreatitis, patient with mild nausea but without epigastric pain or tenderness to palpation, ED provider wishes to admit to observation for ACS rule out. Allergies No Known Drug Allergies Allergy (Verified 10/31/15 13:48) Unknown Home Medications: Lisinopril/Hydrochlorothiazide [Zestoretic 20-12.5 mg Tablet] 1 each PO DAILY 03/30/14 Magnesium Oxide [Magnesium] 500 mg PO DAILY 03/30/14 Metformin ER [Glucophage ER*] 1,000 mg PO BID 03/30/14 Clopidogrel Bisulfate [Plavix*] 75 mg PO DAILY 05/06/15 Amlodipine [Norvasc*] 5 mg PO DAILY 11/30/16 Aspirin [Ecotrin 81 MG] 81 mg PO DAILY 11/30/16 Cyanocobalamin (Vitamin B-12) [Vitamin B-12] 1 tab PO DAILY 11/30/16 Insulin Lispro [Humalog Kwikpen U-100] 20 units SQ PRN 11/30/16 Metoprolol Succinate [Toprol Xl*] 100 mg PO [id number] 11/30/16 Cranberry 1 cap PO BID 11/06/18 Ferrous Gluconate [Fergon] 1 tab PO DAILY 11/06/18 L.acidoph,Paracasei, B.lactis [Probiotic] 1 cap PO DAILY 11/06/18 Aspirin Chewable [Aspirin Chewable*] 81 mg PO DAILY tab.chew 11/09/18 Rosuvastatin Calcium [Crestor] 20 mg PO DAILY #30 tablet 11/09/18 raNITIdine HCL [Zantac 75] 75 mg PO DAILY #30 tablet 11/09/18 - Past Medical/Surgical History Diabetic: Yes -: HTN -: IDDM -: CAD -: GERD -: Hyperlipidemia -: Kidney stone -: thyroidectomy -: Stent in LAD (03/2014) Psychosocial/ Personal History: Patient lives at home with family - Family History Father -: Heart disease, Hypertension, Diabetes, Stroke Mother -: Heart disease, Diabetes Sister -: Hypertension, Diabetes, Cancer Brother -: Heart disease, Stroke - Social History Smoking Status: Never smoker Alcohol use: No CD- Drugs: No Caffeine use: No Review of Systems 10-point ROS is otherwise unremarkable Respiratory: Shortness of Breath Cardiovascular: Chest Pain Gastrointestinal: Nausea Physical Examination - Physical Exam General: Alert, In no apparent distress, Oriented x3 HEENT: Atraumatic, PERRLA, Mucous membr. moist/pink, EOMI, Sclerae nonicteric Neck: Supple, 2+ carotid pulse no bruit, No LAD, Without JVD or thyroid abnormality Respiratory: Clear to auscultation bilaterally, Normal air movement Cardiovascular: Regular rate/rhythm, Normal S1 S2 Gastrointestinal: Normal bowel sounds, No tenderness Musculoskeletal: No tenderness Integumentary: No rashes Neurological: Normal gait, Normal speech, Normal strength at 5/5 x4 extr, Normal tone, Normal affect Lymphatics: No axilla or inguinal lymphadenopathy Assessment and Plan - Plan Assessment: Chest pain rule out ACS history of CAD Diabetes mellitus type 2insulin-dependent Mildly elevated lipase Hypomagnesemia Hypertension Hyperlipidemia Plan: Chest pain rule out ACS history of CAD: Trend troponin, monitor on telemetry, aspirin, beta-anastacia, statin therapy. Patient previously on clopidogrel was taken off for bleeding. Cardiology consulted. Last heart catheterization 2019 with stent placement. Diabetes mellitus type 2insulin-dependent: ACH S Accu-Chek, sliding scale insulin. A1c with morning labs. Mildly elevated lipase: CT without findings of acute pancreatitis, patient without any tenderness to palpation at this time although she does report when she has the pain it does radiate to her back and has reported nausea. We will start with clear liquid diet and ensure she is tolerating this before advancing, trend lipase level. Suspect pain more related to possible ACS at this time. Hypomagnesemia: Protocol in place. Replaced in the emergency department. Hypertension: Obtain and continue home medication continue with metoprolol at this time. Hyperlipidemia: Continue with atorvastatin DVT PPX: Lovenox Code status: Full Discharge Plan: Home Plan to discharge in: 24 Hours - Advance Directives Does patient have a Living Will: No Does patient have a Durable POA for Healthcare: No - Code Status/Comfort Care Code Status Assessed: Yes (Full code) Critical Care: No Time Spent Managing Pts Care (In Minutes): 55
[2021-03-29 19:49] LABS: Protime INR 0.92
[2021-03-29 20:31] LABS: ALT/SGPT 23 U/L (12-78); AST/SGOT 12 U/L (15-37); Albumin 3.8 g/dL (3.4-5.0); Alkaline Phosphatase 71 U/L (45-117); BUN Blood Urea Nitrogen 22 mg/dL (7-18); Bicarbonate 26 mmol/L (21-32); Bilirubin Direct < 0.1 mg/dL (0-0.2); Bilirubin Total 0.3 mg/dL (0.2-1.0); Glucose Level 129 mg/dL (74-106); Lipase 563 U/L (73-393); NT PRO-BNP 185 pg/mL (<125); Protein, Total 7.8 g/dL (6.4-8.2); Sodium Level 137 mmol/L (136-145)
[2021-03-29 20:35] LABS: Magnesium 1.4 mg/dL (1.8-2.4)
--- NOTE | 2021-03-29 21:09 | RAD REPORT ---
EXAM DESCRIPTION: [facility]ambo Single View03/29/2021 8:48 pm CLINICAL HISTORY: Chest pain COMPARISON: 2018 FINDINGS: The lungs appear clear of acute infiltrate. The heart is normal size IMPRESSION: No acute abnormalities displayed
[2021-03-29] MEDS ORDERED: MAGNESIUM SULFATE 1 gm IVPB 1 GM/100 ML BAG IV ONE (21:22)
[2021-03-29] MEDS ORDERED: NITROGLYCERIN 0.4 MG/TAB SL ONE (21:29)
--- NOTE | 2021-03-29 21:45 | RAD REPORT ---
EXAM DESCRIPTION: CT - Abdomen Pelvis W Contrast - 03/29/2021 9:27 pm CLINICAL HISTORY: Abdominal pain COMPARISON: 2016 TECHNIQUE: Computed axial tomography of the abdomen pelvis was obtained. 100 cc Isovue-300 was admin istered intravenously. Oral contrast was not requested which limits evaluation of bowel. All CT scans are performed using dose optimization technique as appropriate and may include automated exposure control or mA/KV adjustment according to patient size. FINDINGS: Cholecystectomy. 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 The liver, spleen, pancreas, and left kidney Several calculi lower pole right kidney. The largest measures 8 millimeters. Adjacent renal cortical thinning. The appendix is upper limits normal caliber. No stranding within the adjacent fat. No adnexal mass. Tiny umbilical hernia There is no evidence of diverticulitis. Atherosclerotic disease IMPRESSION: Nonobstructing right renal calculi. Right renal cortical thinning probably secondary to prior inflammation.
--- NOTE | 2021-03-29 22:20 | ER ---
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 I am having a ld1 nauseous feeling X 3 days, tightness in my chest began today and radiates to ANTHONY shoulder blades. Coronavirus screen: At this time, the client does not indicate any symptoms associated with coronavirus-19. Ebola Screen: No symptoms or risks identified at this time. Initial Sepsis Screen: Does the patient meet any 2 criteria? No. Patient's initial sepsis screen is negative. Does the patient have a suspected source of infection? No. Patient's initial sepsis screen is negative. Risk Assessment: Do you want to hurt yourself or someone else? Patient reports no desire to harm self or others. Onset of symptoms was March 29, 2021. 18:48 Method Of Arrival: Wheelchair ld1 18:48 Acuity: JULES 3 ld1 Triage Assessment: 18:49 General: Appears in no apparent distress. comfortable, Behavior is calm, cooperative, ld1 appropriate for age. Pain: Complains of pain in chest Pain radiates to left scapular area and right scapular area Pain currently is 9 out of 10 on a pain scale. Neuro: Level of Consciousness is awake, alert, obeys commands, Oriented to person, place, time, situation. Cardiovascular: Capillary refill < 3 seconds Patient's skin is warm and dry. Respiratory: Airway is patent Respiratory effort is even, unlabored, Respiratory pattern is regular, symmetrical. Historical: - Allergies: 18:49 NKDA; ld1 - PMHx: 18:49 Diabetes - NIDDM; Hyperlipidemia; Hypertension; Kidney stones; Myocardial infarction; ld1 - PSHx: 18:49 None; ld1 - Immunization history:: Adult Immunizations up to date, Client reports receiving the 2nd dose of the Covid vaccine. - Social history:: Smoking status: Patient denies any tobacco usage or history of. Patient/guardian denies using alcohol. Screenin:50 Abuse screen: Denies threats or abuse. Denies injuries from another. Nutritional bp screening: No deficits noted. Tuberculosis screening: No symptoms or risk factors identified. Fall Risk None identified. Assessment: 18:50 General: SEE TRIAGE NOTE. bp 19:36 Reassessment: Patient appears in no apparent distress at this time. No changes from lg3 previously documented assessment. Patient and/or family updated on plan of care and expected duration. Pain level reassessed. Patient is alert, oriented x 3, equal unlabored respirations, skin warm/dry/pink. General: Appears in no apparent distress. comfortable, Behavior is calm, cooperative. Neuro: Level of Consciousness is awake, alert, obeys commands, Oriented to person, place, time, situation. Cardiovascular: Capillary refill < 3 seconds JVD is absent Patient's skin is warm and dry. Respiratory: Airway is patent Trachea midline Respiratory effort is even, unlabored, Respiratory pattern is regular, symmetrical. GI: No deficits noted. No signs and/or symptoms were reported involving the gastrointestinal system. Abdomen is round non-distended. : No deficits noted. No signs and/or symptoms were reported regarding the genitourinary system. EENT: No deficits noted. No signs and/or symptoms were reported regarding the EENT system. Derm: No deficits noted. No signs and/or symptoms reported regarding the dermatologic system. Musculoskeletal: No deficits noted. No signs and/or symptoms reported regarding the musculoskeletal system. Circulation, motion, and sensation intact. Range of motion: intact in all extremities. 22:43 Reassessment: Patient appears in no apparent distress at this time. No changes from lg3 previously documented assessment. Patient and/or family updated on plan of care and expected duration. Pain level reassessed. Patient is alert, oriented x 3, equal unlabored respirations, skin warm/dry/pink. Pain: Complains of pain in chest Pain radiates to back and right scapular area and left scapular area Pain currently is 3 out of 10 on a pain scale. Is intermittent, episodic. Cardiovascular: Capillary refill < 3 seconds Patient's skin is warm and dry. Cardiovascular:. Respiratory: Airway is patent Respiratory effort is even, unlabored, Respiratory pattern is regular, symmetrical. 22:44 Pain: Pain began 2-3 days ago. lg3 Vital Signs: 18:48 BP 165 / 76; Pulse 78; Resp 18; Temp 97.5(TE); Pulse Ox 100% on R/A; Weight 63.5 kg; ld1 Height 5 ft. 5 in. (165.10 cm); Pain 9/10; 20:04 BP 157 / 99; Pulse 70; Resp 18 S; Pulse Ox 99% on R/A; lg3 22:42 BP 127 / 41; Pulse 66; Resp 17 S; Pulse Ox 100% on R/A; lg3 18:48 Body Mass Index 23.30 (63.50 kg, 165.10 cm) ld1 ED Course: 18:43 Patient arrived in ED. am2 18:49 Triage completed. ld1 18:49 Arm band placed on right wrist. ld1 18:50 Patient has correct armband on for positive identification. Bed in low position. Call bp light in reach. Side rails up X2. data entry machine operator on. Pulse ox on. NIBP on. 18:51 El Roldan NP is PHCP. pm1 18:51 Naif Marroquin MD is Attending Physician. pm1 19:05 José Luis Choi, PADMA is Primary Nurse. bp 19:34 COVID-19 SARS RT PCR (Document "Date of Onset" if Symptomatic) Sent. lg3 19:34 Lipase Sent. lg3 19:34 Basic Metabolic Panel Sent. lg3 19:34 CBC with Diff Sent. lg3 19:35 LFT's Sent. lg3 19:35 Magnesium Sent. lg3 19:35 NT PRO-BNP Sent. lg3 19:35 PT-INR Sent. lg3 19:35 Troponin HS Sent. lg3 19:36 Inserted saline lock: 20 gauge in right antecubital area, using aseptic technique. lg3 Blood collected. 20:11 Patient maintains SpO2 saturation greater than 95% on room air. lg3 22:19 Burton Marroquin MD is Hospitalizing Provider. pm1 22:43 No provider procedures requiring assistance completed. Patient admitted, IV remains in lg3 place. intact, No redness/swelling at site. Administered Medications: 19:34 Drug: Aspirin Chewable Tablet 324 mg Route: PO; lg3 19:34 Follow up: Response: No adverse reaction lg3 22:09 Drug: Magnesium Sulfate 1 grams Route: IVPB; Infused Over: 1 hrs; Site: right lg3 antecubital; 22:30 Follow up: Response: No adverse reaction; IV Status: Completed infusion lg3 22:10 Drug: Nitroglycerin 0.4 mg Route: Sublingual; lg3 22:30 Follow up: Response: No adverse reaction lg3 Outcome: 22:19 Decision to Hospitalize by Provider. pm1 23:40 Admitted to Med/surg via wheelchair, Report called to Omayra lg3 23:40 Condition: stable 23:40 Instructed on the need for admit. 03/30 00:52 Patient left the ED. lg3 Signatures: El Roldan NP AUDIO VISUAL COLLECTIONS COORDINATOR pm1 Yany Patricia am2 José Luis Choi, RN RN bp Sue Reyes, PADMA RN lg3 Sarah Mederos RN RN ld1 Corrections: (The following items were deleted from the chart) 03/29 18:49 18:49 PMHx: Cerebrovascular accident; ld1 ld1
--- NOTE | 2021-03-29 22:20 | EDPHYS ---
Physician Documentation [facility] Name: Rena Reddy Age: 75 yrs Sex: Female : 1945 Arrival Date: 03/29/2021 Time: 18:43 Bed 18 Private MD: ED Physician Naif Marroquin HPI: 03/29 18:57 This 75 yrs old Female presents to ER via Wheelchair with complaints of Chest pm1 Pain. 18:57 The patient or guardian reports chest pain that is located primarily in the xiphoid pm1 area. Onset: 3 day(s) ago. The pain radiates to back, between shoulder blades. Associated signs and symptoms: Pertinent positives: nausea, Pertinent negatives: abdominal pain, cough, shortness of breath, vomiting. The chest pain is described as a pressure. Duration: The patient or guardian reports a single episode, that is still ongoing. Modifying factors: The symptoms are alleviated by nothing. the symptoms are aggravated by nothing. Severity of pain: in the emergency department the pain is unchanged since onset. The patient has experienced similar episodes in the past, a few times, today's symptoms are similar, to previous [place]. The patient has not recently seen a physician, the patient's primary care provider is Dr. Kasia Rubi MD and Dr. Mera. Historical: - Allergies: 18:49 NKDA; ld1 - PMHx: 18:49 Diabetes - NIDDM; Hyperlipidemia; Hypertension; Kidney stones; Myocardial infarction; ld1 - PSHx: 18:49 None; ld1 - Immunization history:: Adult Immunizations up to date, Client reports receiving the 2nd dose of the Covid vaccine. - Social history:: Smoking status: Patient denies any tobacco usage or history of. Patient/guardian denies using alcohol. ROS: 18:57 Constitutional: Negative for fever, chills, and weight loss. pm1 18:57 Respiratory: Negative for shortness of breath, cough, wheezing, and pleuritic chest pain. 18:57 Back: Negative for injury and pain, MS/Extremity: Negative for injury and deformity, Skin: Negative for injury, rash, and discoloration, Neuro: Negative for headache, weakness, numbness, tingling, and seizure. 18:57 Cardiovascular: Positive for chest pain, Negative for edema, palpitations. 18:57 Abdomen/GI: Positive for nausea, Negative for abdominal pain, vomiting, diarrhea. 18:57 All other systems are negative. Exam: 18:57 Constitutional: This is a well developed, well nourished patient who is awake, alert, pm1 and in no acute distress. Head/Face: Normocephalic, atraumatic. 18:57 Back: No spinal tenderness. No costovertebral tenderness. Full range of motion. Skin: Warm, dry with normal turgor. Normal color with no rashes, no lesions, and no evidence of cellulitis. MS/ Extremity: Pulses equal, no cyanosis. Neurovascular intact. Full, normal range of motion. 18:57 Chest/axilla: Exam negative for acute changes, Inspection: no acute changes, Palpation: is normal, no crepitus, no tenderness. 18:57 Cardiovascular: Rate: normal, Rhythm: regular, Pulses: no pulse deficits are appreciated, Heart sounds: normal, normal S1and S2, Edema: is not appreciated. 18:57 Respiratory: Exam negative for acute changes, respiratory distress, shortness of breath, Breath sounds: are clear throughout. 18:57 Abdomen/GI: Inspection: obese Palpation: abdomen is soft and non-tender, in all quadrants. 18:57 Neuro: Exam negative for acute changes, Orientation: is normal, Mentation: is normal, Motor: is normal, moves all fours. Vital Signs: 18:48 BP 165 / 76; Pulse 78; Resp 18; Temp 97.5(TE); Pulse Ox 100% on R/A; Weight 63.5 kg; ld1 Height 5 ft. 5 in. (165.10 cm); Pain 9/10; 20:04 BP 157 / 99; Pulse 70; Resp 18 S; Pulse Ox 99% on R/A; lg3 22:42 BP 127 / 41; Pulse 66; Resp 17 S; Pulse Ox 100% on R/A; lg3 18:48 Body Mass Index 23.30 (63.50 kg, 165.10 cm) ld1 MDM: 18:56 Patient medically screened. pm1 19:40 Data reviewed: vital signs. Data interpreted: Pulse oximetry: on room air is 100 %. pm1 Interpretation: normal. 22:18 Counseling: I had a detailed discussion with the patient and/or guardian regarding: the pm1 historical points, exam findings, and any diagnostic results supporting the discharge/admit diagnosis, lab results, radiology results, the need for further work-up and treatment in the hospital. 03/29 18:51 Order name: Basic Metabolic Panel; Complete Time: 20:37 03/29 18:51 Order name: CBC with Diff; Complete Time: 20:22 03/29 18:51 Order name: LFT's; Complete Time: 20:37 03/29 18:51 Order name: Magnesium; Complete Time: 20:37 03/29 18:51 Order name: NT PRO-BNP; Complete Time: 20:37 03/29 18:51 Order name: PT-INR; Complete Time: 20:22 03/29 18:51 Order name: Troponin HS; Complete Time: 20:37 03/29 18:51 Order name: XRAY Chest (1 view) 03/29 18:51 Order name: Lipase; Complete Time: 20:37 03/29 18:52 Order name: COVID-19 SARS RT PCR (Document "Date of Onset" if Symptomatic); Complete la Time: 20:34 03/29 20:41 Order name: CT Abd/Pelvis - IV Contrast Only pm03/29 21:11 Order name: RAD; Complete Time: 21:13 EDMS 03/29 21:47 Order name: CT; Complete Time: 21:51 EDMS 03/30 00:33 Order name: Glucose, Ancillary Testing; Complete Time: 00:39 EDMS 03/29 18:51 Order name: EKG; Complete Time: 18:51 03/29 18:51 Order name: Cardiac monitoring; Complete Time: 19:06 03/29 18:51 Order name: EKG - Nurse/Tech; Complete Time: 19:06 03/29 18:51 Order name: IV Saline Lock; Complete Time: 19:35 03/29 18:51 Order name: Labs collected and sent; Complete Time: 19:35 03/29 18:51 Order name: O2 Per Protocol; Complete Time: 19:07 03/29 18:51 Order name: O2 Sat Monitoring; Complete Time: 19:07 la1 Administered Medications: 19:34 Drug: Aspirin Chewable Tablet 324 mg Route: PO; lg3 19:34 Follow up: Response: No adverse reaction lg3 22:09 Drug: Magnesium Sulfate 1 grams Route: IVPB; Infused Over: 1 hrs; Site: right lg3 antecubital; 22:30 Follow up: Response: No adverse reaction; IV Status: Completed infusion lg3 22:10 Drug: Nitroglycerin 0.4 mg Route: Sublingual; lg3 22:30 Follow up: Response: No adverse reaction lg3 Disposition: 03/30 07:01 Co-signature as Attending Physician, Naif Marroquin MD I agree with the assessment and rn plan of care. Attestation: The patient's history, exam findings, diagnostics, and a summary of any interventions or procedures was reviewed in detail with El Roldan RETAIL PRODUCT DEMO SPECIALIST. Disposition Summary: 03/29/21 22:19 Hospitalization Ordered Hospitalization Status: Observation pm1 Provider: Burton Marroquin pm1 Location: Telemetry/MedSurg (observation) pm1 Condition: Stable pm1 Problem: new pm1 Symptoms: have improved pm1 Bed/Room Type: Standard pm1 Room Assignment: 221(03/29/21 22:20) Diagnosis - Chest pain, unspecified pm1 Forms: - Medication Reconciliation Form pm1 - SBAR form pm1 Signatures: Dispatcher [employer] EDMS Naif Marroquin MD MD rn Attema, Lee, TRAFFIC MAINTENANCE OFFICER-C TRAFFIC MAINTENANCE OFFICER-Cla1 Eri Gonzalez RN RN El Ruiz NP RETAIL PRODUCT DEMO SPECIALIST pm1 Sue Reyes RN RN lg3 Sarah Mederos RN RN ld1 Corrections: (The following items were deleted from the chart) 03/29 18:49 18:49 PMHx: Cerebrovascular accident; ld1 ld1 22:20 22:19 pm1 cg
[2021-03-29 23:48] VITALS: BMI 25.2
[2021-03-30] MEDS: INSULIN -REGULAR HUMAN 50 UNIT/0.5 ML ML SQ SCH ×5 (00:03→20:11)
[2021-03-30] MEDS ORDERED: MORPHINE 2 MG/ML SYR IV PRN (00:03)
[2021-03-30] MEDS: ATORVASTATIN 40 MG TAB PO SCH ×2 (00:03→20:11)
[2021-03-30] MEDS ORDERED: ONDANSETRON 4 MG/2 ML VIAL IV PRN (00:03)
[2021-03-30 00:49] LABS: Urine Appearance CLEAR (Clear); Urine Bilirubin NEGATIVE (Negative); Urine Blood NEGATIVE (Negative); Urine Color YELLOW (Yellow); Urine Glucose NEGATIVE (Negative); Urine Protein NEGATIVE (Negative); Urine Specific Gravity >=1.030 (1.005-1.030); Urine Urobilinogen 0.2 mg/dL (0.2-1.0)
[2021-03-30 00:57] LABS: Urine Microscopic Reflex NO UMIC
[2021-03-30 01:14] LABS: Magnesium 1.9 mg/dL (1.8-2.4); Troponin High Sensitivity 8.4 pg/mL (<58.9)
[2021-03-30 05:49] LABS: Absolute Lymphocytes (CBC) 1.6 K/uL (0.7-4.9); Hematocrit 34.4 % (36.0-45.0); Lymphocytes % 32.4 % (15.3-44.8); MPV 8.1 fL (7.6-11.3); RBC Red Blood Cell Count 3.99 M/uL (3.86-4.86)
[2021-03-30 06:11] LABS: Albumin 3.2 g/dL (3.4-5.0); Bilirubin Total 0.3 mg/dL (0.2-1.0); Protein, Total 6.7 g/dL (6.4-8.2); Thyroid Stimulating Hormone 1.3 uIU/mL (0.360-3.740)
[2021-03-30] MEDS: METOPROLOL TAR 25 MG TAB PO SCH ×2 (06:26→18:30)
[2021-03-30] MEDS: ENOXAPARIN 40 MG/0.4 ML SQ SCH (07:51)
[2021-03-30] MEDS: ASPIRIN EC 81 MG TAB PO SCH (07:51)
[2021-03-30] MEDS ORDERED: NA CHLORIDE 0.9% 1,000 ML IV SCH (09:00)
--- NOTE | 2021-03-30 17:59 | P.PN ---
Date of Service: 03/30/21 Subjective: No acute events No longer having chest pain With some epigastric tenderness ROS: 10 point ROS as noted above, otherwise negative Physical exam GEN: Alert, oriented, NAD HEENT: Normal conjunctiva, sclera anicteric CV: Regular rate and rhythm, no edema Pulm: Nonlabored respiration on room air ABD: Soft, nontender, nondistended MSK: No joint tenderness Integumentary: No rashes Neuro: Normal speech, normal affect Problem List Chest pain rule out ACS history of CAD Diabetes mellitus type 2insulin-dependent Mildly elevated lipase, likely pancreatitis Hypomagnesemia Hypertension Hyperlipidemia Troponin remain flat Continue telemetry Aspirin, beta-anastacia, statin Cardiology consulted, plan for stress test in the morning Patient with epigastric tenderness, mildly elevated lipase, possible/likely pa ncreatitis, mild Continue clear liquid diet, possibly advance diet as tolerated N.p.o. after midnight for stress test Continue home antihypertensives VTE: Lovenox Code: Full Dispo: Anticipate DC home tomorrow after stress test, if negative Time Spent Managing Pts Care (In Minutes): 35
[2021-03-30] MEDS ORDERED: METOPROLOL XL 50 MG TAB PO SCH (18:00)
[2021-03-30] MEDS: lisinopriL 20 MG TAB PO SCH (18:24)
[2021-03-31 03:55] VITALS: O2SAT 98
[2021-03-31] MEDS: METOPROLOL TAR 25 MG TAB PO SCH (05:12)
[2021-03-31] MEDS ORDERED: MAGNESIUM SULFATE 1 gm IVPB 1 GM/100 ML BAG IV ONE (06:00)
--- NOTE | 2021-03-31 06:08 | P.PN ---
Date of Service: 03/31/21 Subjective: no acute events overnight. ROS: 10 point ROS as noted above, otherwise negative Physical exam GEN: Alert, oriented, NAD HEENT: Normal conjunctiva, sclera anicteric CV: Regular rate and rhythm, no edema Pulm: Nonlabored respiration on room air ABD: Soft, nontender, nondistended MSK: No joint tenderness Integumentary: No rashes Neuro: Normal speech, normal affect Problem List Chest pain rule out ACS history of CAD Diabetes mellitus type 2insulin-dependent Mildly elevated lipase, likely pancreatitis Hypomagnesemia Hypertension Hyperlipidemia Troponin remain flat Continue telemetry Aspirin, beta-anastacia, statin Cardiology consulted, plan for stress test in the morning Patient with epigastric tenderness, mildly elevated lipase, possible/likely pancreatitis, mild Continue clear liquid diet, possibly advance diet as tolerated N.p.o. after midnight for stress test Continue home antihypertensives VTE: Lovenox Code: Full Dispo: Anticipate DC home after stress test, if negative Time Spent Managing Pts Care (In Minutes): 35
[2021-03-31 06:34] LABS: Hematocrit 35.4 % (36.0-45.0); Lymphocytes % 17.7 % (15.3-44.8); MPV 8.7 fL (7.6-11.3); RBC Red Blood Cell Count 4.06 M/uL (3.86-4.86)
[2021-03-31 06:44] LABS: Albumin 3.4 g/dL (3.4-5.0); Bilirubin Total 0.4 mg/dL (0.2-1.0); Potassium 4.5 mmol/L (3.5-5.1); Protein, Total 6.9 g/dL (6.4-8.2)
[2021-03-31] MEDS: INSULIN -REGULAR HUMAN 50 UNIT/0.5 ML ML SQ SCH ×2 (07:30→11:30)
[2021-03-31] MEDS ORDERED: REGADENOSON 0.4 MG/5 ML SYR IV ONE (07:59)
--- NOTE | 2021-03-31 08:06 | EKG ---
Test Date: 2021-03-29 Test Time: 19:03:03 Movie Shot Cameraman: MEASUREMENT RESULTS: Intervals: Rate: 68 KS: 158 QRSD: 72 QT: 428 QTc: 455 [place]: P: 40 KS: 158 QRS: 77 T: 51 INTERPRETIVE STATEMENTS: Normal sinus rhythm Normal ECG Compared to ECG 11/09/2018 08:18:23 No significant changes Electronically Signed On 03-31-21 08:03:12 HIDE PULLER by Bashir Mera
[2021-03-31] MEDS: lisinopriL 20 MG TAB PO SCH (08:52)
[2021-03-31] MEDS: ASPIRIN EC 81 MG TAB PO SCH (08:52)
[2021-03-31] MEDS: ENOXAPARIN 40 MG/0.4 ML SQ SCH (08:52)
[2021-03-31] MEDS ORDERED: AMLODIPINE 5 MG TAB PO SCH (09:00)
[2021-03-31] MEDS ORDERED: CLOPIDOGREL 75 MG TABLET PO SCH (09:00)
[2021-03-31 09:28] VITALS: BP 148/71; TEMP 97.5
--- NOTE | 2021-03-31 11:00 | CON ---
Date of Consultation: 03/31/2021 Reason For Consultation: Chest pain. History Of Present Illness: Ms. Reddy is a 75-year-old woman. Has a history of circumflex stent in 2019. Recent stress test about a year ago was normal. Has a history of hypertension, diabetes, and dyslipidemia. Came in with chest pain radiating to both shoulders, nonexertional. She felt a very warm sensation in the midepigastric region. Symptoms occurred after she ate. They woke her up from sleep. No nausea, vomiting, diaphoresis, PND, orthopnea, pedal edema, palpitations, or syncope. Had elevated lipase level of 437. Glucose levels were elevated. Troponin is negative. BNP is negative . EKG is negative. Chest x-ray is negative. Past Medical History: As stated above. Allergies: NONE. Review of Systems: Negative. Social History: Negative. Family History: Noncontributory. Medications: At home include Norvasc, Crestor, Plavix, lisinopril, insulin, metformin, Pepcid, and N eurontin. Physical Examination: Vital Signs: Stable, afebrile. HEENT: Negative. Neck: Supple with no bruit. Chest: Clear. Cardiac: Revealed a regular rhythm and rate with S4 gallops. No murmurs or rubs. Abdomen: Benign. Extremities: Revealed no clubbing, cyanosis, or edema. Diagnostic Data: As stated earlier. Impression And Plan: 1.Atypical chest pain, most likely gastroesophageal reflux disease with some mild pancreatitis. 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 I would prefer continuing h er home medication and ordering a Lexiscan and echo today before I proceed with a heart catheterizati on. 2.Elevated lipase level. 3.Poorly-controlled diabetes. 4.Dyslipidemia. 5.Hypertension. 6.History of coronary artery disease, status post circumflex stent in 2019 as above. 7.Anemia. 8.Neuropathy. 9.Gastroesophageal reflux disease. Again, I would continue present regimen, consider a GI workup, g et a Lexiscan today. Case was discussed with Dr. Marroquin. CARMEN/KASIAL Voice ID: [id number] Report ID: [id number]
--- NOTE | 2021-03-31 12:34 | RAD REPORT ---
EXAM DESCRIPTION: NM - Rest Stress Cardiac Imaging - 03/31/2021 12:20 pm CLINICAL HISTORY: Chest pain COMPARISON: None. TECHNIQUE: The patient was administered 10.6 mCi of Tc 99m Sestamibi prior to resting SPECT imaging of the heart. The patient was then administered 30.7 mCi of Tc 99m Sestamibi following exercise or ph armacologic stress. Multiplanar SPECT images were reviewed. FINDINGS: The end diastolic volume is 56 ml, the end systolic volume is 17 ml, and the ejection frac tion is 70 %. Physiologic distribution of the radiopharmaceutical through the myocardium is noted. No stress induce d ischemic defect is seen to suggest stress induced ischemia. Mild decrease in activity is seen in th e anterior wall at the apex. This is commonly breast attenuation artifact. Small focus of scarred baldo cardium is possible. No other areas of possible scarring seen. . IMPRESSION: No stress-induced ischemia. Small fixed defect of mildly diminished activity seen in the anterior wall at the apex. This could be breast attenuation artifact or small focus of scarring. End-diastolic volume, end systolic volume and ejection fraction are well within normal limits.
--- NOTE | 2021-03-31 12:56 | P.DS ---
Admission Date: 03/29/21 Discharge Date: 03/31/21 Primary Care Provider: Kasia Jones Disposition: ROUTINE DISCHARGE Discharge Condition: GOOD Reason for Admission: Chest pain Consultations: Cardiology - Dr. Mera Procedures: CXR (03/29): FINDINGS: The lungs appear clear of acute infiltrate. The heart is normal size IMPRESSION: No acute abnormalities displayed CT abdomen/pelvis (03/29): FINDINGS: Cholecystectomy. 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 The liver, spleen, pancreas, and left kidney Several calculi lower pole right kidney. The largest measures 8 millimeters. Adjacent renal cortical thinning. The appendix is upper limits normal caliber. No stranding within the adjacent fat. No adnexal mass. Tiny umbilical hernia There is no evidence of diverticulitis. Atherosclerotic disease IMPRESSION: Nonobstructing right renal calculi. Right renal cortical thinning probably secondary to prior inflammation. Nuclear stress test (03/31): No stress-induced ischemia. End-diastolic volume, end-systolic volume, and ejection fraction are well within normal limits. EF: 70%. Problem List Chest pain rule out ACS history of CAD DM type 2insulin-dependent Mildly elevated lipase, possible mild pancreatitis Hypomagnesemia Hypertension Hyperlipidemia Brief History of Present Illness: 75yo male with history of diabetes mellitus type 2insulin-dependent, hypertension, hyperlipidemia, CAD presents the emergency department for chest pain. Patient reports has had intermittent chest pain and nausea for the last 3 days with some associated shortness of breath, the pain described as tightness/sharp radiating to shoulders bilaterally. Patient was evaluated in the emergency department initial troponin negative EKG without ST elevation lipase mildly elevated, CT without sign of acute pancreatitis, patient with mild nausea but without epigastric pain or tenderness to palpation, ED provider wishes to admit to observation for ACS rule out. Hospital Course: Chest pain was evaluated by chest x-ray, EKG, troponins, CT abdomen/pelvis. All results were negative/normal. Lipase was noted to be very minimally elevated, and improved back to normal. Patient did have very mild tenderness in the epigastric region, possibly due to very mild pancreatitis that has since resolved. Cardiology was consulted, recommended stress test. Stress test performed on 03/31, negative for any stress-induced ischemia. Patient deemed stable for discharge, to continue home medications as previously prescribed. Follow-up with cardiology in the next few weeks. Follow-up with PCP in 1-2 weeks Recommend bland/nonfatty diet for the next few days, slowly getting back to usual heart healthy diet Avoid NSAIDs - may contribute to GERD Vital Signs/Physical Exam: Physical exam GEN: Alert, oriented, NAD HEENT: Normal conjunctiva, sclera anicteric CV: Regular rate and rhythm, no edema Pulm: Nonlabored respiration on room air ABD: Soft, nontender, nondistended Neuro: Normal speech, normal affect Temp Pulse Resp BP Pulse Ox 97.5 F 72 18 148/71 H 99 03/31/21 08:00 03/31/21 08:00 03/31/21 08:00 03/31/21 08:00 03/31/21 08:00 Laboratory Data at Discharge: WBC 5.60 K/uL (4.3-10.9) D 03/31/21 05:46 Hgb 11.6 g/dL (12.0-15.0) L 03/31/21 05:46 Hct 35.4 % (36.0-45.0) L 03/31/21 05:46 Plt Count 258 K/uL (152-406) 03/31/21 05:46 PT 10.6 SECONDS (9.5-12.5) 03/29/21 19:32 INR 0.92 03/29/21 19:32 Sodium 138 mmol/L (136-145) 03/31/21 05:46 Potassium 4.5 mmol/L (3.5-5.1) 03/31/21 05:46 BUN 13 mg/dL (7-18) 03/31/21 05:46 Creatinine 0.68 mg/dL (0.55-1.3) 03/31/21 05:46 Glucose 175 mg/dL (74-106) H 03/31/21 05:46 Magnesium 1.7 mg/dL (1.8-2.4) L 03/31/21 00:16 Total Bilirubin 0.4 mg/dL (0.2-1.0) 03/31/21 05:46 AST 17 U/L (15-37) 03/31/21 05:46 ALT 24 U/L (12-78) 03/31/21 05:46 Alkaline Phosphatase 58 U/L (45-117) 03/31/21 05:46 Triglycerides 165 mg/dL (<150) H 03/30/21 05:40 Cholesterol 164 mg/dL (<200) 03/30/21 05:40 HDL Cholesterol 45 mg/dL (40-60) 03/30/21 05:40 Cholesterol/HDL Ratio 3.64 03/30/21 05:40 Lipase 142 U/L (73-393) 03/31/21 05:46 Home Medications: Metformin ER [Glucophage ER*] 1,000 mg PO BID 03/30/14 Clopidogrel Bisulfate [Plavix*] 75 mg PO DAILY 05/06/15 Amlodipine [Norvasc*] 5 mg PO DAILY 11/30/16 Metoprolol Succinate [Toprol Xl*] 100 mg PO DAILY 11/30/16 Celecoxib 1 cap PO BID 03/30/21 Famotidine 1 tab PO BID 03/30/21 Ferrous Sulfate 1 tab PO DAILY 03/30/21 Gabapentin 1 cap PO TID 03/30/21 Insulin Aspart Prot/Insuln Asp [Novolog Mix 70-30 Flexpen] 20 units SQ BID 03/30/21 Lisinopril [Zestril] 20 mg PO DAILY 03/30/21 Pantoprazole [Protonix Tab*] 20 mg PO DAILY 03/30/21 Rosuvastatin Calcium [Crestor] 10 mg PO DAILY 03/30/21 Sennosides [Senna] 1 cap PO BEDTIME 03/30/21 Vitamin D [Drisdol*] 1,000 unit PO DAILY 03/30/21 Physician Discharge Instructions: Chest pain was evaluated by chest x-ray, EKG, troponins, CT abdomen/pelvis. All results were negative/normal. Lipase was noted to be very minimally elevated, and improved back to normal. Patient did have very mild tenderness in the epigastric region, possibly due to very mild pancreatitis that has since resolved. Cardiology was consulted, recommended stress test. Stress test performed on 03/31, negative for any stress-induced ischemia. Patient deemed stable for discharge, to continue home medications as previously prescribed. Follow-up with cardiology in the next few weeks. Follow-up with PCP in 1-2 weeks Recommend bland/nonfatty diet for the next few days, slowly getting back to usual heart healthy diet Avoid NSAIDs - may contribute to GERD Diet: AHA Activity: Ad heather Followup: [facility] [Provider Group] OOT,OOT [Primary Care Provider] - Time spent managing pt's care (in minutes): 45
--- NOTE | 2021-03-31 14:40 | TREADPHA ---
DX: CHEST PAIN Date of Study: 03/31/2021 Ht: 5' 2 " Wt: 137 lb 12.8 oz Consulting Physician: ANDREI MEDICATIONS: NORVASC, ASPIRIN, LOVENOX, NOVOLIN-R, LOPRESSOR HISTORY: THREE STENTS, MYOCARDIAL INFARCTION PHYSICIAL EXAMINATION: RESTING B.P.: 139/65 RESTING H.R.: 61 RESTING EKG: WITHIN NORMAL LIMITS PROTOCOL: PHARMACOLOGIC EXERCISE TIME: 3:30 B.P. AT PEAK STRESS: 145/63 IMPRESSION: LEXISCAN INJECTED. CARDIOLITE INJECTION (SEE NUCLER MEDICINE REPORT). NO VENTRICULAR TACHYCARDIA/ SUPRAVENTRICULAR. ONE PREMATURE ATRIAL COMPLEX NOTED. COMPAINTS OF SHORTNESS OF BREATH AND NAUSEA. NO EKG CHANGES WITH STRESS.
== END 2021-03-31 14:48 | disposition home or self-care (01) ==
LOC: ER 18:42 → ERHOLD 19:46 → 2ND 22:55
PROVIDERS: ADMIT Hospitalist; ATTEND Hospitalist
DX: R07.89 Other chest pain (principal); E83.42 Hypomagnesemia; I10 Essential (primary) hypertension; E11.65 Type 2 diabetes mellitus with hyperglycemia; E11.40 Type 2 diabetes mellitus with diabetic neuropathy, unspecified; E78.5 Hyperlipidemia, unspecified; R74.8 Abnormal levels of other serum enzymes; R10.816 Epigastric abdominal tenderness; I25.10 Atherosclerotic heart disease of native coronary artery without angina pectoris; K21.9 Gastro-esophageal reflux disease without esophagitis; D64.9 Anemia, unspecified; E89.0 Postprocedural hypothyroidism; I72.8 Aneurysm of other specified arteries; N20.0 Calculus of kidney; Z95.5 Presence of coronary angioplasty implant and graft; Z79.02 Long term (current) use of antithrombotics/antiplatelets; Z79.82 Long term (current) use of aspirin; Z79.4 Long term (current) use of insulin; Z82.49 Family history of ischemic heart disease and other diseases of the circulatory system; Z82.3 Family history of stroke; Z83.3 Family history of diabetes mellitus; Z80.9 Family history of malignant neoplasm, unspecified
CPT/HCPCS: 96365; 93005; 93017; 85025 ×3; 80048; 36415 ×2; 83735 ×3; 85610; 80061; 82947 ×6; 80076; 84443; 81003; 83036; 84484 ×3; 84439; 83690 ×3; 80053 ×2; 83880; 74177; 71045; 78452; 99285; U0003; Q9967; J1650 ×2; J3475 ×2; J2785; J7030; A9500; G0378

== ENCOUNTER 2021-11-24 06:30 | Day surgery (SDC) | payer OTHER ==
--- NOTE | 2021-11-21 10:06 | RAD REPORT ---
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 FINDINGS: The lungs are clear. Interstitial pattern matches comparison. Heart size is normal and ce ntral vasculature is within normal limits. No pleural effusion or pneumothorax seen. No acute bony finding noted. No aortic abnormality. IMPRESSION: No acute cardiopulmonary process. No significant change from comparison study.
[2021-11-21 10:17] LABS: Absolute Lymphocytes (CBC) 1.6 K/uL (0.7-4.9); Hematocrit 35.3 % (36.0-45.0); Lymphocytes % 31.6 % (15.3-44.8); MCV 82.9 fL (80-100); MPV 8.2 fL (7.6-11.3); RBC Red Blood Cell Count 4.26 M/uL (3.86-4.86)
[2021-11-21 10:20] LABS: Protime INR 0.96
[2021-11-21 10:27] LABS: Potassium 4.5 mmol/L (3.5-5.1)
[2021-11-21 10:29] LABS: SARS-CoV-2 Antigen Rapid Res Negative (Negative)
--- NOTE | 2021-11-21 12:28 | EKG ---
Test Date: 2021-11-21 Test Time: 09:46:59 Psych Specialist: PRUDENCE MEASUREMENT RESULTS: Intervals: Rate: 60 OH: 170 QRSD: 76 QT: 436 QTc: 436 [place]: P: 63 OH: 170 QRS: 52 T: 72 INTERPRETIVE STATEMENTS: Normal sinus rhythm Normal ECG Compared to ECG 03/29/2021 19:03:03 No significant changes Electronically Signed On 11-21-21 12:27:42 CDT by Bashir Mera
[2021-11-24] MEDS ORDERED: HEPA 1000U/500MLS 2,000 UNIT/1,000 ML BAG IV ONE (06:49)
[2021-11-24] MEDS ORDERED: LIDOCAINE 1% MPF 30 ML VIAL ONE (06:50)
[2021-11-24] MEDS ORDERED: FENTANYL CITR 100 MCG/2 ML ONE (06:50)
[2021-11-24] MEDS ORDERED: ATROPINE SULF 1 MG/10 ML SYR IV ONE (06:51)
[2021-11-24] MEDS ORDERED: MIDAZOLAM HCL 2 MG/2 ML INJ ONE (06:51)
[2021-11-24] MEDS ORDERED: NA CHLORIDE 0.9% 500 ML ONE (07:11)
[2021-11-24] MEDS ORDERED: SMZ./TMP. 800/160 MG TABLET PO ONE (08:00)
[2021-11-24 09:01] VITALS: O2SAT 99
--- NOTE | 2021-11-24 09:16 | OP ---
Date of Procedure: 11/24/2021 Surgeon: Bashir Mera MD General Counsel: Ms. Shirley Frank. Procedure: She underwent a common femoral artery angiogram and selective bilateral carotid angiogram . Indication: Cerebrovascular disease, severe, by Doppler. History Of Present Illness: Ms. Reddy is 76 and has a history of hypertension, dyslipidemia, diabet es, anemia, gastroesophageal reflux disease, and documented cerebrovascular disease by Doppler. Procedure In Detail: In the cathode maker today, she was prepped and draped in routine sterile fashion. Given Versed and fentanyl for sedation. A 6-Congolese sheath was introduced in the right common femoral artery successfully using 10 cc of Xylocaine in the Seldinger technique. Angiography there was norm al. StarClose was used to close the case. A JR4 catheter was used to select the right common caroti d and the left common carotid separately. She was found to have a 70% right ICA. Her left ICA was k inked with a 40% stenosis, normal external carotid, normal common carotid. There were no complicatio ns. The patient tolerated the procedure well. Blood Loss: 5 cc. Postoperative Diagnoses: [id number] carotid artery stenosis on the left. Mild carotid arter y stenosis on the right. Plan: For a possible carotid endarterectomy. I will have Dr. Sharpe review the films before making any decisions. She will go home today in 2 hours after bedrest. Anesthesia: Total conscious sedation, 30 minutes. CARMEN/KASIAL Voice ID: [id number] Report ID: [id number]
[2021-11-24 09:36] VITALS: BP 132/57
== END 2021-11-24 09:38 | disposition home or self-care (01) ==
LOC: CCL 06:30
PROC: B305ZZZ Plain Radiography of Bilateral Common Carotid Arteries (ICD-10-PCS; principal; 2021-11-24)
DX: I65.23 Occlusion and stenosis of bilateral carotid arteries (principal); I10 Essential (primary) hypertension; E78.5 Hyperlipidemia, unspecified; E11.9 Type 2 diabetes mellitus without complications; D64.9 Anemia, unspecified; K21.9 Gastro-esophageal reflux disease without esophagitis; Z20.822 Contact with and (suspected) exposure to COVID-19
CPT/HCPCS: 93005; 85025; 80048; 36415; 85610; 82947; 85730; 71046; 87811; 36222; J2250; J3010; J7040; J1644; C1893

== ENCOUNTER 2022-04-14 16:49 | Inpatient (IN) | payer OTHER ==
--- OUTSIDE RECORDS SUMMARY | 2022-04-14 17:01 | XMS REPORT | Continuity of Care Document ---
:1945 Author Organization [facility] t Address [address] [place] [address] Care Team Providers Name Role Phone JOSÉ LUIS ARTEAGA Primary Care Physician Unavailable José Luis Arteaga Attending Clinician Unavailable CHATA SPANGLER Attending Clinician Unavailable NAINA BYRD Attending Clinician Unavailable LAKIA DONG Attending Clinician Unavailable [id number] Attending Clinician Unavailable [id number] Attending Clinician Unavailable KENAN VELAZQUEZ Attending Clinician Unavailable CARLOS SCHULTZ Attending Clinician Unavailable MAURICIO FERRARA Attending Clinician Unavailable MALKA CHUNG Attending Clinician Unavailable Cas Magallon MD Attending Clinician [phone] CAS MAGALLON Attending Clinician Unavailable SULAIMAN OTTO Attending Clinician Unavailable MAGALY SHIRLEY Attending Clinician Unavailable Magaly Gatica Attending Clinician Juancarlos Segundo Attending Clinician Hundreuben COVER CREASER-C, Lakia Attending Clinician [id number] Attending Clinician Unavailable Naina Byrd DO Attending Clinician Kenan Velazquez DO Attending Clinician Reed ROUSE, Cherelle Almendarez Attending Clinician Unavailable Only, Ang Db Test Attending Clinician Unavailable JUANCARLOS LARA Attending Clinician Unavailable Doctor Unassigned, [place] Attending Clinician Unavailable COVID-PFIZER BOOSTER, [place] Attending Clinician Unava binu Schultz MD, Carlos Gibson Attending Clinician Ross Borden DO Attending Clinician Alaina LUGO, Michael Attending Clinician MICHAEL MILTON Attending Clinician Unavailable Ziggy Chatterjee DO Attending Clinician NATALIA JAFFE Attending Clinician Unavailable Sandor LUGO, Natalia Attending Clinician Kellen Li RN Attending Clinician Unavailable Renata LUGO, Frank Hercules Attending Clinician Erika Henley MD Attending Clinician Lab, Adc Fam Pob I Attending Clinician Unavailable Vega COVER CREASER, Nayana Attending Clinician Erika Henley MD Admitting Clinician Payers Payer Name Policy Type Policy Number Effective Date Expiration Date Delisa gonzalez [employer] [id number] 2017spring 00:00:00 AETNA MA PREMIER 7 [id number] 2021 HMO PLAN 00:00:00 AETNA MEDICARE [id number] 2021 2021 OUT OF NETWORK 00:00:00 00:00:00 HUMANA MEDICARE 7 [id number] 2021 [id number] GOLD 00:00:00 PLUS 2021 [facility] 7 [id number] 2020-11-062019 R2T 00:00:00 Problems Condition Condition Condition Status Onset Resolution Last Treating Co mments Source Name Details Category Date Date Treatment Clinician Date Acute Acute Disease Active Kasia cystitis cystitis 1-06 Seybol d without without 00:00: - hematuria hematuria 00 Exte rna l Acute Acute Disease Active Kasia pharyngiti pharyngiti 1-06 Se ybold s s 00:00: - 00 Externa l s/p s/p Disease Active 2021-03 Kasia carotid carotid 0-05 Seybold angiogram: angiogram: 00:00: - 11/24/2021 11/24/2021 00 Exte rna - 70% GEOVANNI - 70% GEOVANNI l and 40% and 40% LICA at [facility] S/P S/P Disease Active 2021-03 Kasia primary primary 0-04 Seybold angioplast angioplast 00:00: - y with y with 00 Externa coronary coronary l stent: RCA stent: RCA (patent), (patent), LM (20%), LM (20%), LCx LCx (efu40-99% (pyp76-89% ), OM1 ), OM1 (patent (patent stent), stent), LAD LAD (ostial (ostial 30%, prox 30%, prox patent patent stent), stent), Synergy Synergy [id number] to D1 on to D1 on 11/08/2018 11/08/2018 [facility] 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 12-03 carotid carotid 00:00: Medical artery artery 00 Center Coronary Coronary Disease [facility] artery artery 12-03kes disease disease 00:00: Medical involving involving 00 Cent er [place] coronary coronary artery artery without without angina angina pectoris pectoris Type 2 Type [address] [facility] diabetes diabetes 12-03 mellitus mellitus 00:00: Medica l 00 Center Primary Primary Disease Active [facility] hypertensi hypertensi 12-03 Shanti kes on on 00:00: Medical 00 Center Dyslipidem Dyslipidem Disease Active [facility] ia ia 9-28 [facility] Center GERD GERD Disease Active [facility] (gastroeso (gastroeso 12-03 Shanti kes phageal phageal 00:00: Medical reflux reflux 00 Center disease) disease) Right Right Disease Active Kasia carotid carotid 12-02 Seybold artery artery 00:00: - occlusion occlusion 00 Exte rna l Bilateral Bilateral Disease Active Killian sey carotid carotid 12-02 Seybold artery artery 00:00: - stenosis: stenosis: 00 Exte rna Carotid US Carotid US l 11/18/2021 11/18/2021 - >70% - >70% GEOVANNI and GEOVANNI and 50-69% 50-69% LICA LICA Immunodefi Immunodefi Disease Active K elsey ciency due ciency due 5-20 Se ybold to to 00:00: - diabetes 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 Radiology 03/2021: Patient had ultrasoun d and mammogram March 2021. Questiona ble persisten ce of asymmetri c density within the left upper breast. Ultrasoun d was negative and low likelihoo d of malignanc y noted. 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 MRI 12/2020: C-spine showed moderatel y severe lower cervical degenerat conner spondylos is most significa nt at C5-C6. Thoracic Thoracic Disease Active Overview: Case connollyey spondylosi spondylosi 4-14 Formattin Seybold s s 00:00: g of this note Externa might be l different from the original. MRI 12/2020: Moderate lower thoracic degenerat conner spondylos is also identifie d. Drug-induc Drug-induc Disease Active Nirav amezquitay ed ed 3-17 Seybold constipati constipati 00:00: - on on 00 Externa l Type 2 Type 2 Disease Active Overview: Kasia diabetes diabetes 11-28 Formattin Sey bold mellitus mellitus 00:00: g of this - with with 00 note Externa cardiac cardiac might be l complicati complicati different on on from the original. Asa, plavix, and statinLas t Assessmen t & Plan: Formattin g of this note might be different from the original. Controlle d Essential Essential Disease Active Overview: Kasia hypertensi hypertensi 11-28 Formattin Seybold on on 00:00: g of this - 00 note Externa might be l different from the original. On KELBY + BBLast Assessmen t & Plan: Formattin g of this note might be different from the original. Controlle d Dyslipidem Dyslipidem Disease Active Overview : Kasia ia ia 11-28 Formattin Seybold 00:00: g of this - 00 note Externa might be l different from the original. On statinLas t Assessmen t & Plan: Formattin g of this note might be different from the original. Controlle d Gastroesop Gastroesop Disease Active Overview : Kasia hageal hageal 11-28 Formattin Seybold reflux reflux 00:00: g of this - disease disease 00 note Externa without without might be l esophagiti esophagiti different s s from the original. On ppiLast Assessmen t & Plan: Formattin g of this note might be different from the original. Controlle d S/P S/P Disease Active Kasia primary primary 11-28 Seybold angioplast angioplast 00:00: - y with y with 00 Externa coronary coronary l stent: RCA stent: RCA (patent), (patent), LM LM (patent), (patent), LCx LCx (patent), (patent), OM1 (prox OM1 (prox 80%), LAD 80%), LAD mid 99%; mid 99%; PCI to LAD PCI to LAD on on 04/02/2014 04/02/2014 [facility] [place] [place] Disease Active Overview: Kasia deficiency deficiency 11-28 Formattin Seybold anemia anemia 00:00: g of this - note Externa might be l different from the original. Per pt no f/u since [facility] [place] and was given a blood transfusi on one unitNo colonosco py 02/2020 Old [place] Disease Active Overview: Kasia (myocardia (myocardia 11-28 Formattin Seybold l l 00:00: g of this - infarction infarction 00 note Ex terna ) ) might be l different from the original. 2016On BB, Plavix, and ststinLas t Assessmen t & Plan: Formattin g of this note might be different from the original. Controlle d Nonspecifi Nonspecifi Disease Active Overview : Kasia c c 11-28 Formattin Seybold abnormalit abnormalit 00:00: g of this - y on liver y on liver 00 note Ex terna isotope isotope might be l scan scan different from the original. In [place] told a spot on the lievr needed 6 month follow up Acute Acute Disease Active [facility] pancreatit pancreatit 10-11 it y of is is 00:00: [place] 00 Medical Branch Coronary Coronary Disease Active Unive rs artery artery 10-11 ity of disease disease 00:00: [place] involving involving 00 Medi ranjan [place] Branch coronary coronary artery of artery of [place] heart heart without without angina angina pectoris [...] on, benign on, benign 00:[place]: [place] [facility] Hyperlipid Hyperlipid Disease Active U nivers emia emia 06-06 ity of 00:00: [place] 00 Medical Branch Type II or Type II or Disease Active U nivers unspecifie unspecifie 06-06 it y of d type d type 00:00: [place] diabetes diabetes Medica l mellitus mellitus Branch with with unspecifie unspecifie d d complicati complicati on, not on, not stated as stated as uncontroll uncontroll ed ed [id number] Constipati Problem Com mon on, Spirit unspecifie - [facility] d constipati [facility] on type [facility] [id number] Lower Problem Common urinary [facility] tract - [facility] symptoms (LUTS) [facility] Kidney Bilateral Problem Common stone kidney [facility] stones [facility] [id number] Bladder Problem Common stones [facility] [id number] Recurrent Problem Com mon UTI [facility] [id number] Incomplete Problem Co mmon emptying [facility] of bladder [facility] [id number] Pelvic Problem Common pain [facility] Allergies, Adverse Reactions, Alerts Allergy Allergy Status Severity Reaction(s) Onset Inactive Treating Comm ents Source Name Type Date Date Clinician NO KNOWN Drug Active Univers ALLERGIE Class ity of S [facility] Family History Family Member Diagnosis Comments Start Date Stop Date Source Natural father Heart disease [facility] Natural father Stroke [facility] Social History Social Habit Start Date Stop Date Quantity Comments Source History of Tobacco [facility] Tobacco use and 2021-12-03 2021-12-[address] [facility] exposure 00:00:00 00:00:00 [facility] Exposure to 2021-09-17 2021-09-27 Not sure [facility] SARS-CoV-2 (event) 00:00:00 18:31:00 [facility] Alcohol intake 2021-09-27 2021-09-27 .12 /d [facility] 00:00:00 00:00:00 Medical [place] Sex Assigned At [address] [facility] 00:00:00 00:00:00 [facility] Smoking Status Start Date Stop Date Source Never smoked tobacco Kasia Ha old - External Medications Ordered Filled Start Stop Current Ordering Indication Dosage Frequency Signature Comments Components Source Medication Medication Date Date Medication? Clinician (SIG) Name Name Aspirin 81 Yes 81mg Take 81 mg K elsey MG oral 2-06 by mouth Seybold Tablet 14:57: daily - Delayed 33 Externa Response l Magnesium 2022-0 Yes 1 tablet Nereyda ey 250 MG oral 2-06 with a Seybol d Tablet 14:57: meal - 33 Externa l Nitroglycer 2022-0 Yes [id number] 1 to 2 Kasia in 0.4 MG 2-06 tablets Seybold sublingual 00:00: under the - SL Tab 00 tongue at Externa onset of l attack. Repeat as needed up to 3 times. If not relieved CALL 911. Insulin Pen 2022-0 Yes [id number] Takes Kasia Needle 31G 2-06 insulin Seybol d X 5 MM does 00:00: once daily - not apply 00 Externa Misc l Lisinopril Yes [id number] 20mg Take 1 K elsey 20 MG oral 2-06 tablet (20 Sey bold Tablet 00:00: mg total) - 00 by mouth Externa daily l Metformin 2022-0 Yes [id number] 1000mg Take 2 Kasia HCl 500 MG 2-06 tablets Seybol d oral Tablet 00:00: (1,000 mg - 00 total) by Externa mouth in l the morning and 2 tablets (1,000 mg total) in the evening. Take with meals. Insulin Yes [id number] Takes up K elsey Glargine 2-06 to 35 Seybold (Basaglar 00:00: units SQ - KwikPen) 00 daily at Externa 100 UNIT/ML bedtime l subcutaneou s Solution Pen-injecto r Celecoxib 0 Yes [id number] 200mg Take 1 K elsey 200 MG oral 1-31 capsule Seybo ld Capsule 00:00: (200 mg - 00 total) by Externa mouth 2 l times daily Alfuzosin Alfuzosin 2022-0 2022- No 1{table QD Alfuzosin HCl ER 10 HCl ER 10 04-01 07-24 t_at_be HCl ER 10 MG MG 00:00: 00:00 dtime} MG 00 :00 Aspirin 81 2022-0 Yes 81mg Take 81 mg K elsey MG oral 1-06 by mouth Seybold Tablet 16:03: daily - Delayed 18 Externa Response l Magnesium 2022-0 Yes 1 tablet Nereyda ey 250 MG oral 1-06 with a Seybol d Tablet 16:03: meal - 18 Externa l Benzonatate 0 Yes [id number] 100mg Q.[id number] Take 1 Kasia (Tessalon 1-06 [id number] capsule S eybold Perles) 100 00:00: 3D (100 mg - MG oral 00 total) by Externa Capsule mouth 3 l times daily as needed for cough Benzonatate 0 Yes [id number] 100mg Q.[id number] Take 1 Kasia (Tessalon 1-06 [id number] capsule S eybold Perles) 100 00:00: 3D (100 mg - MG oral 00 total) by Externa Capsule mouth 3 l times daily as needed for cough Azithromyci 0 2022- Yes [id number] Take 2 Kasia n 250 MG 03-13 tablets by Seyb old oral Tablet 00:00: 05:59 mouth on - 00 :00 day 1 then Externa 1 tablet l by mouth daily for 4 days thereafter . Metoprolol 2021-03 Yes [id number] TAKE 1 K elsey Succinate 2-28 TABLET BY Seybo ld 100 MG oral 00:00: MOUTH - TABLET SR 00 EVERY DAY Exter na 24 HR l Metoprolol 2021-03 Yes [id number] TAKE 1 K elsey Succinate 2-28 TABLET BY Seybo ld 100 MG oral 00:00: MOUTH - TABLET SR 00 EVERY DAY Exter na 24 HR l Ferrous 2021-03 Yes [id number] 325mg TAKE 1 Killian sey Sulfate 325 2-08 TABLET Seybol d (65 Fe) MG 00:00: (325 MG - oral Tablet 00 TOTAL) BY Ext sharlene MOUTH l DAILY (WITH BREAKFAST) Ferrous 2021-03 Yes [id number] 325mg TAKE 1 Killian sey Sulfate 325 2-08 TABLET Seybol d (65 Fe) MG 00:00: (325 MG - oral Tablet 00 TOTAL) BY Ext sharlene MOUTH l DAILY (WITH BREAKFAST) Aspirin 81 2021-03 Yes 81mg Take 81 mg K elsey MG oral 03-29 by mouth Seybold Tablet 13:12: daily - Delayed 19 Externa Response l Magnesium 2021-03 Yes 1 tablet Nereyda ey 250 MG oral 03-29 with a Seybol d Tablet 13:12: meal - 19 Externa l aspirin 81 2021-0 Yes 81mg QD Take [address] [facility] EC 9 by mouth [facility] tablet 11:39: daily. [address] Aspirin 81 2021-0 Yes 81mg Take 81 mg K elsey MG oral 9-27 by mouth Seybold Tablet 13:25: daily - Delayed 42 Externa Response l Magnesium 0 Yes 1 tablet Nereyda ey 250 MG oral 9-27 with a Seybol d Tablet 13:25: meal - 42 Externa l Ondansetron 0 Yes [id number] 4mg Q.[id number] Take 1 Kasia (Zofran 9-27 [id number] tablet (4 S eybold ODT) 4 MG 00:00: 3D mg total) - oral TABLET 00 by mouth Exte rna DISPERSIBLE every 8 l hours as needed for nausea Simethicone 0 Yes [id number] 80mg Q.25D Take 1 Kasia 80 MG oral 9-27 tablet (80 Sey bold Chewable 00:00: mg total) - Tablet 00 by mouth Externa every 6 l hours as needed for flatulence Ondansetron 0 Yes [id number] 4mg Q.[id number] Take 1 Kasia (Zofran 9-27 [id number] tablet (4 S eybold ODT) 4 MG 00:00: 3D mg total) - oral TABLET 00 by mouth Exte rna DISPERSIBLE every 8 l hours as needed for nausea Simethicone 0 Yes [id number] 80mg Q.25D Take 1 Kasia 80 MG oral 9-27 tablet (80 Sey bold Chewable 00:00: mg total) - Tablet 00 by mouth Externa every 6 l hours as needed for flatulence Ondansetron 0 Yes [id number] 4mg Q.[id number] Take 1 Kasia (Zofran 9-27 [id number] tablet (4 S eybold ODT) 4 MG 00:00: 3D mg total) - oral TABLET 00 by mouth Exte rna DISPERSIBLE every 8 l hours as needed for nausea Simethicone 2021-0 Yes [id number] 80mg Q.25D Take 1 Kasia 80 MG oral 9-27 tablet (80 Sey bold Chewable 00:00: mg total) - Tablet 00 by mouth Externa every 6 l hours as needed for flatulence Ondansetron 0 Yes [id number] 4mg Q.[id number] Take 1 Kasia (Zofran 12-02 [id number] tablet (4 S eybold ODT) 4 MG 00:00: 3D mg total) - oral TABLET 00 by mouth Exte rna DISPERSIBLE every 8 l hours as needed for nausea Simethicone 0 Yes [id number] 80mg Q.25D Take 1 Kasia 80 MG oral 12-02 tablet (80 Sey bold Chewable 00:00: mg total) - Tablet 00 by mouth Externa every 6 l hours as needed for flatulence amLODIPine 0 Yes 5mg QD Take [address] (NORVASC) 5 11-06 by mouth Luke s MG tablet 00:00: daily. Medica l 00 Center Amlodipine 0 Yes [id number] 5mg Take 1 K elsey Besylate 5 11-06 tablet (5 Seyb old MG oral 00:00: mg total) - Tablet 00 by mouth Externa daily l Amlodipine Yes [id number] 5mg Take 1 K elsey Besylate 5 11-06 tablet (5 Seyb old MG oral 00:00: mg total) - Tablet 00 by mouth Externa daily l Amlodipine Yes [id number] 5mg Take 1 K elsey Besylate 5 - tablet (5 Seyb old MG oral 00:00: mg total) - Tablet 00 by mouth Externa daily l Amlodipine Yes [id number] 5mg Take 1 K elsey Besylate 5 11-06 tablet (5 Seyb old MG oral 00:00: mg total) - Tablet 00 by mouth Externa daily l lisinopriL 0 Yes 20mg QD Take [address] (PRINIVIL,Z 8- by mouth Luke s ESTRIL) 20 00:00: daily. Medic al MG tablet 00 Center Lisinopril 0 Yes [id number] 20mg Take 1 K elsey 20 MG oral 8-26 tablet (20 Sey bold Tablet 00:00: mg total) - 00 by mouth Externa daily l Lisinopril 0 Yes [id number] 20mg Take 1 K elsey 20 MG oral 8-26 tablet (20 Sey bold Tablet 00:00: mg total) - 00 by mouth Externa daily l Lisinopril Yes [id number] 20mg Take 1 K elsey 20 MG oral 8-26 tablet (20 Sey bold Tablet 00:00: mg total) - 00 by mouth Externa daily l Lisinopril 2022- No [id number] 20mg Take 1 Kasia 20 MG oral 8-26 02-06 tablet (20 Se ybold Tablet 00:00: 00:00 mg total) - 00 :00 by mouth Externa daily l Basaglar Yes 35U QD Inject [address] KwikPen 8-08 Units [facility] U-100 00:00: subcutaneo Medica l Insulin 100 00 usly Center unit/mL (3 nightly. mL) InPn Insulin Yes [id number] Takes up K elsey Glargine 8-08 to 35 Seybold (Basaglar 00:00: units SQ - KwikPen) 00 daily at Externa 100 UNIT/ML bedtime l subcutaneou s Solution Pen-injecto r Insulin Yes [id number] Takes up K elsey Glargine 8-08 to 35 Seybold (Basaglar 00:00: units SQ - KwikPen) 00 daily at Externa 100 UNIT/ML bedtime l subcutaneou s Solution Pen-injecto r Insulin Yes [id number] Takes up K elsey Glargine 8-08 to 35 Seybold (Basaglar 00:00: units SQ - KwikPen) 00 daily at Externa 100 UNIT/ML bedtime l subcutaneou s Solution Pen-injecto r Insulin 2022- No [id number] Takes up Kasia Glargine 8-08 02-06 to 35 Seybold (Basaglar 00:00: 00:00 units SQ - KwikPen) 00 :00 daily at Externa 100 UNIT/ML bedtime l subcutaneou s Solution Pen-injecto r LISINOPRIL Yes None Univers 10 MG ORAL 7-23 Entered ity of TAB 18:36: [address] Branch METFORMIN Yes 500mg Take 500 Uni vers HCL 7-23 mg by ity of (METFORMIN 18:36: [place] 2 [place] 09 (two) Medical times Branch daily. PANTOPRAZOL Yes Take by Uni vers E SODIUM 7-23 mouth. ity of (PROTONIX 18:36: [place] ORAL) Medical Branch CLOPIDOGREL Yes Take by Uni vers BISULFATE 7-23 mouth. ity of (PLAVIX 18:36: [place] ORAL) Medical Branch INSULIN Yes inject Univers LISPRO 7-23 under the ity of (HUMALOG 18:36: skin. [facility]) Medical Branch EMPAGLIFLOZ Yes Take by Uni vers IN 7-23 mouth. ity of (JARDIANCE 18:36: [place] ORAL) Medical Branch LISINOPRIL Yes None Univers 10 MG ORAL 7-23 Entered ity of TAB 18:36: [place] [facility] METFORMIN Yes 500mg Take 500 Uni vers HCL 7-23 mg by ity of (METFORMIN 18:36: mouth 2 [place] ORAL) (two) Medical times Branch daily. PANTOPRAZOL Yes Take by Uni vers E SODIUM 7-23 mouth. ity of (PROTONIX 18:36: [place] ORAL) Medical Branch CLOPIDOGREL Yes Take by Uni vers BISULFATE 7-23 mouth. ity of (PLAVIX 18:36: [place] ORAL) Medical Branch INSULIN Yes inject Univers LISPRO 7-23 under the ity of (HUMALOG 18:36: skin. [facility]) Medical Branch EMPAGLIFLOZ Yes Take by Uni vers IN 7-23 mouth. ity of (JARDIANCE 18:36: [place] ORAL) Medical Branch atorvastati Yes 20mg QD Take [address] [facility] (LIPITOR) 7-23 by mouth Luke s 20 MG 00:00: daily. Medical tablet [address] [place] [address] molnupiravi Yes [id number] 800mg Take 4 Univers r 200 mg 7-23 capsules ity of capsule 00:00: by mouth [place] [id number] every 12 Medical (twelve) Branch hours. molnupiravi Yes [id number] 800mg Take 4 Univers r 200 mg 7-23 capsules ity of capsule 00:00: by mouth [place] 00 every 12 Medical (twelve) Branch hours. molnupiravi 2021-2021- No [id number] 800mg Take 4 Univers r 200 mg 09-27- capsules ity of capsule 00:00: 00:00 by mouth [place] 00 :00 every 12 Medical (twelve) Branch hours. pantoprazol 0 Yes 20mg QD Take [address] e 7-12 by mouth [facility] (PROTONIX) 00:00: daily. Medic al 20 MG 00 Center tablet Atorvastati Yes [id number] 20mg Take 1 Kasia n Calcium 7-12 tablet (20 Seyb old 20 MG oral 00:00: mg total) - Tablet 00 by mouth Externa daily l Pantoprazol 2021-0 Yes [id number] 20mg Take 1 Kasia e Sodium 20 7-12 tablet (20 Se ybold MG oral 00:00: mg total) - Tablet 00 by mouth Externa Delayed daily l Response Atorvastati Yes [id number] 20mg Take 1 Kasia n Calcium 7-12 tablet (20 Seyb old 20 MG oral 00:00: mg total) - Tablet 00 by mouth Externa daily l Pantoprazol 2021- Yes [id number] 20mg Take 1 Kasia e Sodium 20 7-12 tablet (20 Se ybold MG oral 00:00: mg total) - Tablet 00 by mouth Externa Delayed daily l Response Atorvastati 0 Yes [id number] 20mg Take 1 Kasia n Calcium 7-12 tablet (20 Seyb old 20 MG oral 00:00: mg total) - Tablet 00 by mouth Externa daily l Pantoprazol 2021-0 Yes [id number] 20mg Take 1 Kasia e Sodium 20 7-12 tablet (20 Se ybold MG oral 00:00: mg total) - Tablet 00 by mouth Externa Delayed daily l Response Atorvastati Yes [id number] 20mg Take 1 Kasia n Calcium 7-12 tablet (20 Seyb old 20 MG oral 00:00: mg total) - Tablet 00 by mouth Externa daily l Pantoprazol 2021-0 Yes [id number] 20mg Take 1 Kasia e Sodium 20 7-12 tablet (20 Se ybold MG oral 00:00: mg total) - Tablet 00 by mouth Externa Delayed daily l Response Amoxicillin Yes TAKE 4 Nereyda ey 500 MG oral 7-08 CAPSULES Seyb old Capsule 00:00: BY MOUTH 1 - 00 HOUR PRIOR Externa TO DENTAL l [facility] T Amoxicillin Yes TAKE 4 Nereyda ey 500 MG oral 7-08 CAPSULES Seyb old Capsule 00:00: BY MOUTH 1 - 00 HOUR PRIOR Externa TO DENTAL l [facility] T Amoxicillin Yes TAKE 4 Nereyda ey 500 MG oral 7-08 CAPSULES Seyb old Capsule 00:00: BY MOUTH 1 - 00 HOUR PRIOR Externa TO DENTAL l [facility] T Amoxicillin Yes TAKE 4 Nereyda ey 500 MG oral 7-08 CAPSULES Seyb old Capsule 00:00: BY MOUTH 1 - 00 HOUR PRIOR Externa TO DENTAL l [facility] T Phenazopyri Yes [id number] 200mg Q.[id number] Take 1 Kasia dine HCl 7-01 [id number] tablet Sey bold 200 MG oral 00:00: 3D (200 mg - Tablet total) by Externa mouth 3 l times daily as needed for pain Phenazopyri Yes [id number] 200mg Q.[id number] Take 1 Kasia dine HCl 7-01 [id number] tablet Sey bold 200 MG oral 00:00: 3D (200 mg - Tablet 00 total) by Externa mouth 3 l times daily as needed for pain Phenazopyri 0 Yes [id number] 200mg Q.[id number] Take 1 Kasia dine HCl 7-01 [id number] tablet Sey bold 200 MG oral 00:00: 3D (200 mg - Tablet 00 total) by Externa mouth 3 l times daily as needed for pain Phenazopyri Yes [id number] 200mg Q.[id number] Take 1 Kasia dine HCl 7-01 [id number] tablet Sey bold 200 MG oral 00:00: 3D (200 mg - Tablet 00 total) by Externa mouth 3 l times daily as needed for pain guaiFENesin 0 Yes [id number] 5mL Q.[id number] Take 5 mL Kasia -Codeine 6-15 [id number] by mouth 3 Seybold 100-10 00:00: 3D times - MG/5ML oral 00 daily as Exte rna Syrup needed for l cough guaiFENesin Yes [id number] 5mL Q.[id number] Take 5 mL Kasia -Codeine 6-15 [id number] by mouth 3 Seybold 100-10 00:00: 3D times - MG/5ML oral 00 daily as Exte rna Syrup needed for l cough guaiFENesin Yes [id number] 5mL Q.[id number] Take 5 mL Kasia -Codeine 6-15 [id number] by mouth 3 Seybold 100-10 00:00: 3D times - MG/5ML oral 00 daily as Exte rna Syrup needed for l cough guaiFENesin Yes [id number] 5mL Q.[id number] Take 5 mL Kasia -Codeine 6-15 [id number] by mouth 3 Seybold 100-10 00:00: 3D times - MG/5ML oral 00 daily as Exte rna Syrup needed for l cough Aspirin 81 Yes 81mg Take 81 mg K elsey MG oral 6-06 by mouth Seybold Tablet 14:14: daily Delayed 01 Response Magnesium Yes 1 tablet Nreeyda ey 250 MG oral 606 with a Seybol d Tablet 14:14: meal 01 Lansoprazol Yes 30mg Take 30 mg Kasia e 30 MG 6-06 by mouth Seybold oral 14:14: daily Delayed 01 Release Capsule Amoxicillin Yes [id number] 1{tbl} Take 1 Kasia -Pot 6-06 tablet by Seybold Clavulanate 00:00: mouth in 875-125 MG 00 the oral Tablet morning and 1 tablet in the evening. Pseudoeph-B Yes [id number] 10mL Q.25D Take 10 mL Kasia romphen-DM 6-06 by mouth 4 Sey bold (Bromfed 00:00: times DM) 30-2-10 00 daily as MG/5ML oral needed Syrup Atorvastati Yes [id number] 20mg Take 2 Kasia n Calcium 6-06 tablets Seybold 10 MG oral 00:00: (20 mg Tablet 00 total) by mouth daily Alfuzosin 2021- No every 24 Killian sey HCl 10 MG 6-02 11-29 hours Seybold oral TABLET 00:00: 05:59 SR 24 HR 00 :00 Alfuzosin Alfuzosin 2021- No 1{table QD Alfuzosin HCl ER 10 HCl ER 10 08-07 t_immed HCl ER 10 MG MG 00:00: 00:00 iately_ MG 00 :00 after_t he_same _meal} Alfuzosin Alfuzosin 2021- No 1{table QD Alfuzosin HCl ER 10 HCl ER 10 08-07 t_immed HCl ER 10 MG MG 00:00: 00:00 iately_ MG 00 :00 after_t he_same _meal} Alfuzosin Alfuzosin 2021- No 1{table QD Alfuzosin HCl ER 10 HCl ER 10 08-07 t_immed HCl ER 10 MG MG 00:00: 00:00 iately_ MG 00 :00 after_t he_same _meal} Alfuzosin Alfuzosin 2021- No 1{table QD Alfuzosin HCl ER 10 HCl ER 10 08-07 t_immed HCl ER 10 MG MG 00:00: 00:00 iately_ MG 00 :00 after_t he_same _meal} Aspirin 81 Yes 81mg Take 81 mg K elsey MG oral 5-16 by mouth Seybold Tablet 10:59: daily Delayed 59 Response Magnesium Yes 1 tablet Nereyda ey 250 MG oral 5-16 with a Seybol d Tablet 10:59: meal 59 Lansoprazol Yes 30mg Take 30 mg Kasia e 30 MG 5-16 by mouth Seybold oral 10:59: daily Delayed 59 Release Capsule Insulin Yes [id number] Takes up K elsey Glargine 5-16 to 30 Seybold (Basaglar 00:00: units SQ KwikPen) 00 daily at 100 UNIT/ML bedtime subcutaneou s Solution Pen-injecto r Metformin Yes [id number] 1000mg Take 2 Kasia HCl 500 MG 5-16 tablets Seybol d oral Tablet 00:00: (1,000 mg 00 total) by mouth in the morning and 2 tablets (1,000 mg total) in the evening. Take with meals. 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 Take with meals. 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 Take with meals. Insulin Pen 2021-0 Yes [id number] Takes Kasia Needle 31G 5-16 insulin Seybol d X 5 MM does 00:00: once daily - not apply 00 Externa Mis l Metformin 2021-0 Yes [id number] 1000mg Take 2 Kasia HCl 500 MG 5-16 tablets Seybol d oral Tablet 00:00: (1,000 mg - 00 total) by Externa mouth in l the morning and 2 tablets (1,000 mg total) in the evening. Take with meals. Insulin Pen 2021-0 Yes [id number] Takes Kasia Needle 31G 5-16 insulin Seybol d X 5 MM does 00:00: once daily - not apply 00 Externa [facility] Metformin 0 Yes [id number] 1000mg Take 2 Kasia HCl 500 MG 5-16 tablets Seybol d oral Tablet 00:00: (1,000 mg - 00 total) by Externa mouth in l the morning and 2 tablets (1,000 mg total) in the evening. Take with meals. Insulin Pen 2021-0 Yes [id number] Takes Kasia Needle 31G 5-16 insulin Seybol d X 5 MM does 00:00: once daily - not apply 00 Externa [facility] l Metformin 2021-0 2023- No [id number] 1000mg Take 2 Kasia HCl 500 MG 5-16 02-06 tablets Seybo ld oral Tablet 00:00: 00:00 (1,000 mg - 00 :00 total) by Externa mouth in l the morning and 2 tablets (1,000 mg total) in the evening. Take with meals. Insulin Pen 2021-0 3- No [id number] Takes Kasia Needle 31G 5-16 02-06 insulin Seybo ld X 5 MM does 00:00: 00:00 once daily - not apply 00 :00 Externa [facility] Insulin 2021-0 2- No [id number] 20U Inject 20 Kasia Aspart Prot 4-28 05-16 units into S eybold & Aspart 00:00: 00:00 the skin (NovoLOG 00 :00 in the Mix 70/30 morning FlexPen) and 20 (70-30) 100 units in UNIT/ML the subcutaneou evening. s Inject Suspension before Pen-injecto meals. r Insulin 2021- No 20U Inject 20 Nereyda ey Lispro Prot 4-14 04-14 units into S eybold & Lispro 10:06: 00:00 the skin 2 (HUMALOG 38 :00 times MIX 75/25 daily KWIKPEN SC) Aspirin 81 Yes 81mg Take 81 mg K elsey MG oral 4-14 by mouth Seybold Tablet 09:49: daily Delayed 31 Response Magnesium Yes 1 tablet Nereyda ey 250 MG oral 4-14 with a Seybol d Tablet 09:49: meal 31 Lansoprazol Yes 30mg Take 30 mg Kasia e 30 MG 4-14 by mouth Seybold oral 09:49: daily Delayed 31 Release Capsule Insulin 2021- No [id number] 20U Inject 20 Kasia Lispro Prot 4-14 07-14 units into S eybold & Lispro 00:00: 04:59 the skin (HUMALOG 00 :00 in the KWIKPEN) morning (75-25) 100 and 20 UNIT/ML units in subcutaneou the s evening. Suspension Pen-injecto r Insulin 2021- No [id number] 25 units K elsey Glargine 4-05 04-14 SQ daily. Seybo ld (Lantus 00:00: 00:00 SoloStar) 00 :00 100 UNIT/ML subcutaneou s Solution Pen-injecto r Aspirin 81 Yes 81mg Take 81 mg K elsey MG oral 3-17 by mouth Seybold Tablet 10:11: daily Delayed 37 Response Magnesium Yes 1 tablet Nereyda ey 250 MG oral 3-17 with a Seybol d Tablet 10:11: meal 37 Lansoprazol Yes 30mg Take 30 mg Kasia e 30 MG 3-17 by mouth Seybold oral 10:11: daily Delayed 37 Release Capsule Lactobacill 2021- No 1{capsu Take 1 Kasia us-Inulin 3-17 03-17 le} capsule by [facility] (Culturelle 10:09: 00:00 mouth Digestive 59 :00 daily Health) oral Capsule Docusate Yes [id number] 100mg Take 100 Kasia Sodium 100 3-17 mg by Seybold MG oral 00:00: mouth Tablet 00 daily Docusate 2021-0 Yes [id number] 100mg Take 100 Kasia Sodium 100 3-17 mg by Seybold MG oral 00:00: mouth Tablet 00 daily Docusate 2021-0 Yes [id number] 100mg Take 100 Kasia Sodium 100 3-17 mg by Seybold MG oral 00:00: mouth Tablet 00 daily Docusate 2021-0 Yes [id number] 100mg Take 100 Kasia Sodium 100 3-17 mg by Seybold MG oral 00:00: mouth Tablet 00 daily Docusate 2021-0 Yes [id number] 100mg Take 100 Kasia Sodium 100 3-17 mg by Seybold MG oral 00:00: mouth - Tablet 00 daily Externa l Docusate Yes [id number] 100mg Take 100 Kasia Sodium 100 3-17 mg by Seybold MG oral 00:00: mouth - Tablet 00 daily Externa l Docusate 0 Yes [id number] 100mg Take 100 Kasia Sodium 100 3-17 mg by Seybold MG oral 00:00: mouth - Tablet 00 daily Externa l Docusate 0 Yes [id number] 100mg Take 100 Kasia Sodium 100 3-17 mg by Seybold MG oral 00:00: mouth - Tablet 00 daily Externa l Metformin 0 Yes [id number] 1000mg TAKE 2 Kasia HCl 500 MG 3-15 TABLETS Seybol d oral Tablet 00:00: (1,000 MG 00 TOTAL) BY MOUTH 2 TIMES DAILY (WITH MEALS) Metformin 0 Yes [id number] 1000mg TAKE 2 Kasia HCl 500 MG 3-15 TABLETS Seybol d oral Tablet 00:00: (1,000 MG 00 TOTAL) BY MOUTH 2 TIMES DAILY (WITH MEALS) Metformin 2021-0 2021- No [id number] 1000mg TAKE 2 Kasia HCl 500 MG 3-15 05-16 TABLETS Seybo ld oral Tablet 00:00: 00:00 (1,000 MG 00 :00 TOTAL) BY MOUTH 2 TIMES DAILY (WITH MEALS) Lactobacill 2021-0 Yes 1{capsu Take 1 K elsey us-Inulin 2-11 le} capsule by Dlicia old (Culturelle 09:08: mouth Digestive 13 daily Health) oral Capsule Aspirin Yes 81mg Take 81 mg Nereyda ey (Aspirin 2-11 by mouth Seybold 81) 81 MG 09:08: daily oral Tablet 13 Delayed Response Magnesium Yes 1 tablet Nereyda ey 250 MG oral 11 with a Seybol d Tablet 09:08: meal 13 Insulin Yes [id number] 25 units Ke lsey Glargine 2-11 SQ daily. Seybol d (Lantus 00:00: SoloStar) 00 100 UNIT/ML subcutaneou s Solution Pen-injecto r Insulin Yes [id number] 25 units Ke lsey Glargine 2-11 SQ daily. Seybol d (Lantus 00:00: SoloStar) 00 100 UNIT/ML subcutaneou s Solution Pen-injecto r Triamcinolo 2021- No [id number] Apply to Kasia ne 04-18-12 area 2 Seybold Acetonide 00:00: 05:59 times 0.1 % apply 00 :00 daily for externally 2 weeks Cream OZEMPIC 2021- No [id number] .25mg Inject Ke lsey (0.25 or 04-18-15 0.25 mg Seybold 0.5 00:00: 00:00 into the mg/dose) 2 00 :00 skin once mg/1.5 mL a week SQ Solution Pen-Injecto r Insulin 2021- No [id number] 25 units K elsey Glargine 2 02-11 SQ daily. Seybo ld (Lantus 00:00: 00:00 SoloStar) 00 :00 100 UNIT/ML subcutaneou s Solution Pen-injecto r Pantoprazol Yes [id number] 20mg Take 1 Kasia e Sodium 20 1-17 tablet (20 Se ybold MG oral 00:00: mg total) Tablet 00 by mouth Delayed daily Response Pantoprazol Yes [id number] 20mg Take 1 Kasia e Sodium 20 1-17 tablet (20 Se ybold MG oral 00:00: mg total) Tablet 00 by mouth Delayed daily Response Blood Yes Kasia Glucose 1-17 Seybold Calibration 00:00: (True 00 Metrix Level 1) Low in vitro Solution Pantoprazol 2021-0 Yes [id number] 20mg Take 1 Kasia e Sodium 20 1-17 tablet (20 Se ybold MG oral 00:00: mg total) Tablet 00 by mouth Delayed daily Response Blood 2-0 Yes Kasia Glucose 1-17 Seybold Calibration 00:00: (True 00 Metrix Level 1) Low in vitro Solution Pantoprazol 2021-0 Yes [id number] 20mg Take 1 Kasia e Sodium 20 1-17 tablet (20 Se ybold MG oral 00:00: mg total) Tablet 00 by mouth Delayed daily Response Blood 2021-0 Yes Kasia Glucose 1-17 Seybold Calibration 00:00: (True 00 Metrix Level 1) Low in vitro Solution Pantoprazol 2021-0 Yes [id number] 20mg Take 1 Kasia e Sodium 20 1-17 tablet (20 Se ybold MG oral 00:00: mg total) Tablet 00 by mouth Delayed daily Response Blood 2021-0 Yes Kasia Glucose 1-17 Seybold Calibration 00:00: (True 00 Metrix Level 1) Low in vitro Solution Blood 2021-0 Yes Kasia Glucose 1-17 Seybold Calibration 00:00: - (True 00 Externa Metrix l Level 1) Low in vitro Solution Blood 2021-0 Yes Kasia Glucose 1-17 Seybold Calibration 00:00: - (True 00 Externa Metrix l Level 1) Low in vitro Solution Blood 2-0 Yes Kasia Glucose 1-17 Seybold Calibration 00:00: - (True 00 Externa Metrix l Level 1) Low in vitro Solution Blood 2-0 Yes Kasia Glucose 1-17 Seybold Calibration 00:00: - (True 00 Externa Metrix l Level 1) Low in vitro Solution Amlodipine 2021-0 Yes [id number] 5mg Take 1 K elsey Besylate 5 1-13 tablet (5 Seyb old MG oral 00:00: mg total) Tablet 00 by mouth daily Celecoxib 2-0 Yes [id number] 200mg Take 1 K elsey 200 MG oral 1-13 capsule Seybo ld Capsule 00:00: (200 mg 00 total) by mouth 2 times daily Rosuvastati 2-0 Yes [id number] 10mg Take 1 Kasia n Calcium 1-13 tablet (10 Seyb old 10 MG oral 00:00: mg total) Tablet 00 by mouth daily Lisinopril Yes [id number] 20mg Take 1 K elsey 20 MG oral 1-13 tablet (20 Sey bold Tablet 00:00: mg total) 00 by mouth daily Ferrous 0 Yes [id number] 325mg Take 1 Killian sey Sulfate 325 -13 tablet Seybol d (65 Fe) MG 00:00: (325 mg oral Tablet 00 total) by mouth daily (with breakfast) TRUEplus Yes [id number] 1{each} 1 each by Kasia Lancets 33G 03-20 does not Seyb old does not 00:00: apply apply Misc 00 route 3 times daily Alcohol Yes [id number] Use as Nereyda ey Swabs (B-D 03-20 directed Seybo ld SINGLE USE 00:00: three SWABS 00 times REGULAR) daily does not apply Pads Glucose Yes [id number] Use as Nereyda ey Blood in 03-20 directed Seybold vitro Strip 00:00: three 00 times daily Metoprolol Yes [id number] 100mg Take 1 Kasia Succinate -13 tablet Seybold 100 MG oral 00:00: (100 mg TABLET SR total) by 24 HR mouth daily Blood Yes [id number] 1{each} 1 each by Kasia Glucose 03-20 does not Seybold Monitoring 00:00: apply Suppl (True 00 route 3 Metrix times Meter) daily USE w/Device does not DIRECTED apply Kit TO CHECK BLOOD SUGAR THREE TIMES DAILY Amlodipine Yes [id number] 5mg Take 1 K elsey Besylate 5 -13 tablet (5 Seyb old MG oral 00:00: mg total) Tablet 00 by mouth daily Celecoxib Yes [id number] 200mg Take 1 K elsey 200 MG oral -13 capsule Seybo ld Capsule 00:00: (200 mg 00 total) by mouth 2 times daily Rosuvastati Yes [id number] 10mg Take 1 Kasia n Calcium 1-13 tablet (10 Seyb old 10 MG oral 00:00: mg total) Tablet 00 by mouth daily Lisinopril Yes [id number] 20mg Take 1 K elsey 20 MG oral 1-13 tablet (20 Sey bold Tablet 00:00: mg total) 00 by mouth daily Ferrous Yes [id number] 325mg Take 1 Killian sey Sulfate 325 1-13 tablet Seybol d (65 Fe) MG 00:00: (325 mg oral Tablet 00 total) by mouth daily (with breakfast) TRUEplus Yes [id number] 1{each} 1 each by Kasia Lancets 33G 1-13 does not Seyb old does not 00:00: apply apply Misc 00 route 3 times daily Alcohol Yes [id number] Use as Nereyda ey Swabs (B-D 03-20 directed Seybo ld SINGLE USE 00:00: three SWABS 00 times REGULAR) daily does not apply Pads Metoprolol Yes [id number] 100mg Take 1 Kasia Succinate 1-13 tablet Seybold 100 MG oral 00:00: (100 mg TABLET SR 00 total) by 24 HR mouth daily Blood Yes [id number] 1{each} 1 each by Kasia Glucose 03-20 does not Seybold Monitoring 00:00: apply Suppl (True 00 route 3 Metrix times Meter) daily USE w/Device does not DIRECTED apply Kit TO CHECK BLOOD SUGAR THREE TIMES DAILY Amlodipine Yes [id number] 5mg Take 1 K elsey Besylate 5 1-13 tablet (5 Seyb old MG oral 00:00: mg total) Tablet 00 by mouth daily Celecoxib Yes [id number] 200mg Take 1 K elsey 200 MG oral 1-13 capsule Seybo ld Capsule 00:00: (200 mg 00 total) by mouth 2 times daily Rosuvastati Yes [id number] 10mg Take 1 Kasia n Calcium 1-13 tablet (10 Seyb old 10 MG oral 00:00: mg total) Tablet 00 by mouth daily Lisinopril Yes [id number] 20mg Take 1 K elsey 20 MG oral 1-13 tablet (20 Sey bold Tablet 00:00: mg total) 00 by mouth daily Ferrous Yes [id number] 325mg Take 1 Killian sey Sulfate 325 1-13 tablet Seybol d (65 Fe) MG 00:00: (325 mg oral Tablet 00 total) by mouth daily (with breakfast) TRUEplus Yes [id number] 1{each} 1 each by Kasia Lancets 33G 1-13 does not Seyb old does not 00:00: apply apply Misc 00 route 3 times daily Alcohol Yes [id number] Use as Nereyda ey Swabs (B-D 1- directed Seybo ld SINGLE USE 00:00: three SWABS 00 times REGULAR) daily does not apply Pads Metoprolol Yes [id number] 100mg Take 1 Kasia Succinate 1-13 tablet Seybold 100 MG oral 00:00: (100 mg TABLET SR 00 total) by 24 HR mouth daily Blood Yes [id number] 1{each} 1 each by Kasia Glucose 1-13 does not Seybold Monitoring 00:00: apply Suppl (True 00 route 3 Metrix times Meter) daily USE w/Device does not DIRECTED apply Kit TO CHECK BLOOD SUGAR THREE TIMES DAILY Amlodipine Yes [id number] 5mg Take 1 K elsey Besylate 5 1-13 tablet (5 Seyb old MG oral 00:00: mg total) Tablet 00 by mouth daily Celecoxib Yes [id number] 200mg Take 1 K elsey 200 MG oral 1-13 capsule Seybo ld Capsule 00:00: (200 mg 00 total) by mouth 2 times daily Rosuvastati Yes [id number] 10mg Take 1 Kasia n Calcium 1-13 tablet (10 Seyb old 10 MG oral 00:00: mg total) Tablet 00 by mouth daily Lisinopril Yes [id number] 20mg Take 1 K elsey 20 MG oral 1-13 tablet (20 Sey bold Tablet 00:00: mg total) 00 by mouth daily Ferrous Yes [id number] 325mg Take 1 Killian sey Sulfate 325 1-13 tablet Seybol d (65 Fe) MG 00:00: (325 mg oral Tablet 00 total) by mouth daily (with breakfast) TRUEplus Yes [id number] 1{each} 1 each by Kasia Lancets 33G 1-13 does not Seyb old does not 00:00: apply apply Misc 00 route 3 times daily Alcohol Yes [id number] Use as Nereyda ey Swabs (B-D 1- directed Seybo ld SINGLE USE 00:00: three SWABS 00 times REGULAR) daily does not apply Pads Metoprolol Yes [id number] 100mg Take 1 Kasia Succinate 1-13 tablet Seybold 100 MG oral 00:00: (100 mg TABLET SR 00 total) by 24 HR mouth daily Blood Yes [id number] 1{each} 1 each by Kasia Glucose 1-13 does not Seybold Monitoring 00:00: apply Suppl (True 00 route 3 Metrix times Meter) daily USE w/Device does not DIRECTED apply Kit TO CHECK BLOOD SUGAR THREE TIMES DAILY Amlodipine Yes [id number] 5mg Take 1 K elsey Besylate 5 1-13 tablet (5 Seyb old MG oral 00:00: mg total) Tablet 00 by mouth daily Celecoxib Yes [id number] 200mg Take 1 K elsey 200 MG oral 1-13 capsule Seybo ld Capsule 00:00: (200 mg 00 total) by mouth 2 times daily Lisinopril Yes [id number] 20mg Take 1 K elsey 20 MG oral 1-13 tablet (20 Sey bold Tablet 00:00: mg total) 00 by mouth daily Ferrous Yes [id number] 325mg Take 1 Killian sey Sulfate 325 1-13 tablet Seybol d (65 Fe) MG 00:00: (325 mg oral Tablet 00 total) by mouth daily (with breakfast) TRUEplus Yes [id number] 1{each} 1 each by Kasia Lancets 33G 1-13 does not Seyb old does not 00:00: apply apply Misc 00 route 3 times daily Alcohol Yes [id number] Use as Nereyda ey Swabs (B-D 1-13 directed Seybo ld SINGLE USE 00:00: three SWABS 00 times REGULAR) daily does not apply Pads Metoprolol Yes [id number] 100mg Take 1 Kasia Succinate 1-13 tablet Seybold 100 MG oral 00:00: (100 mg TABLET SR 00 total) by 24 HR mouth daily Blood Yes [id number] 1{each} 1 each by Kasia Glucose 1-13 does not Seybold Monitoring 00:00: apply Suppl (True 00 route 3 Metrix times Meter) daily USE w/Device does not DIRECTED apply Kit TO CHECK BLOOD SUGAR THREE TIMES DAILY Celecoxib Yes [id number] 200mg Take 1 K elsey 200 MG oral 1-13 capsule Seybo ld Capsule 00:00: (200 mg - 00 total) by Externa mouth 2 l times daily Ferrous Yes [id number] 325mg Take 1 Killian sey Sulfate 325 1-13 tablet Seybol d (65 Fe) MG 00:00: (325 mg - oral Tablet 00 total) by Ext sharlene mouth l daily (with breakfast) TRUEplus Yes [id number] 1{each} 1 each by Kasia Lancets 33G 1- does not Seyb old does not 00:00: apply - apply Misc 00 route 3 [employer] a times l daily Alcohol Yes [id number] Use as Nereyda ey Swabs (B-D 03-20 directed Seybo ld SINGLE USE 00:00: three - SWABS 00 times Externa REGULAR) daily l does not apply Pads Metoprolol Yes [id number] 100mg Take 1 Kasia Succinate 1-13 tablet Seybold 100 MG oral 00:00: (100 mg - TABLET SR 00 total) by Exter na 24 HR mouth l daily Blood Yes [id number] 1{each} 1 each by Kasia Glucose 1- does not Seybold Monitoring 00:00: apply - Suppl (True 00 route 3 Exter na Metrix times l Meter) daily USE w/Device does not DIRECTED apply Kit TO CHECK BLOOD SUGAR THREE TIMES DAILY Celecoxib Yes [id number] 200mg Take 1 K elsey 200 MG oral 1-13 capsule Seybo ld Capsule 00:00: (200 mg - 00 total) by Externa mouth 2 l times daily Ferrous Yes [id number] 325mg Take 1 Killian sey Sulfate 325 1-13 tablet Seybol d (65 Fe) MG 00:00: (325 mg - oral Tablet 00 total) by Ext sharlene mouth l daily (with breakfast) TRUEplus Yes [id number] 1{each} 1 each by Kasia Lancets 33G 1- does not Seyb old does not 00:00: apply - apply Misc 00 route 3 [employer] a times l daily Alcohol Yes [id number] Use as Nereyda ey Swabs (B-D - directed Seybo ld SINGLE USE 00:00: three - SWABS 00 times Externa REGULAR) daily l does not apply Pads Metoprolol 0 Yes [id number] 100mg Take 1 Kasia Succinate 1-13 tablet Seybold 100 MG oral 00:00: (100 mg - TABLET SR 00 total) by Exter na 24 HR mouth l daily Blood 2021-0 Yes [id number] 1{each} 1 each by Kasia Glucose 1-13 does not Seybold Monitoring 00:00: apply - Suppl (True 00 route 3 Exter na Metrix times l Meter) daily USE w/Device does not DIRECTED apply Kit TO CHECK BLOOD SUGAR THREE TIMES DAILY Celecoxib 2021-0 Yes [id number] 200mg Take 1 K elsey 200 MG oral 03-20 capsule Seybo ld Capsule 00:00: (200 mg - 00 total) by Externa mouth 2 l times daily TRUEplus 2021-0 Yes [id number] 1{each} 1 each by Kasia Lancets 33G 1-13 does not Seyb old does not 00:00: apply - apply Misc 00 route 3 [employer] a times l daily Alcohol 2021-0 Yes [id number] Use as Nereyda ey Swabs (B-D 03-20 directed Seybo ld SINGLE USE 00:00: three - SWABS 00 times Externa REGULAR) daily l does not apply Pads Blood 2021-0 Yes [id number] 1{each} 1 each by Kasia Glucose 1-13 does not Seybold Monitoring 00:00: apply - Suppl (True 00 route 3 Exter na Metrix times l Meter) daily USE w/Device does not DIRECTED apply Kit TO CHECK BLOOD SUGAR THREE TIMES DAILY TRUEplus 2021-0 Yes [id number] 1{each} 1 each by Kasia Lancets 33G 1-13 does not Seyb old does not 00:00: apply - apply Misc 00 route 3 [employer] a times l daily Alcohol 2021-0 Yes [id number] Use as Nereyda ey Swabs (B-D 1-13 directed Seybo ld SINGLE USE 00:00: three - SWABS 00 times Externa REGULAR) daily l does not apply Pads Blood 2021-0 Yes [id number] 1{each} 1 each by Kasia Glucose 1-13 does not Seybold Monitoring 00:00: apply - Suppl (True 00 route 3 Exter na Metrix times l Meter) daily USE w/Device does not DIRECTED apply Kit TO CHECK BLOOD SUGAR THREE TIMES DAILY metoprolol Yes 100mg QD Take [address] [facility] [address] succinate 1-13 mg by [facility] (TOPROL-XL) 00:00: mouth Medic al 100 MG 24 00 daily. Center hr tablet ferrous Yes 325mg QD Take 325 [facility] sulfate 325 1-13 mg by [facility] (65 FE) MG 00:00: mouth Medica l tablet 00 daily. Center celecoxib Yes 200mg Q.5D Take [address] [facility] [address] (CeleBREX) 1-13 mg by [facility] 200 MG 00:00: mouth 2 Medical capsule 00 (two) Center times daily. Rosuvastati 2021- No [id number] 10mg Take 1 Kasia n Calcium 03-20 tablet (10 Sey bold 10 MG oral 00:00: 00:00 mg total) Tablet 00 :00 by mouth daily Glucose 2021- No [id number] Use as Killian lourdes Blood in 03-20 directed Seybol d vitro Strip 00:00: 00:00 three 00 :00 times daily Sulfamethox 2020-03 Yes [id number] 1{tbl} Take 1 Kasia azole-Trime 2-30 tablet by Sey bold thoprim 00:00: mouth 400-80 MG 00 daily oral Tablet Sulfamethox 2020-03- No [id number] 1{tbl} Take 1 Kasia azole-Trime 2-30 05-22 tablet by Se ybold thoprim 00:00: 00:00 mouth 400-80 MG 00 :00 daily oral Tablet Nitrofurant 2020-03 Yes [id number] 100mg Take 1 Kasia oin Monohyd 2-29 capsule Seybo ld Macro 00:00: (100 mg (Macrobid) 00 total) by 100 MG oral mouth Capsule daily Vitamin D, 2020-03 Yes [id number] 1{tbl} Take 1 Kasia Cholecalcif 2-27 tablet by Sey bold maritza, 25 00:00: mouth MCG (1000 00 daily UT) oral Capsule Vitamin D, 2020-03 Yes [id number] 1{tbl} Take 1 Kasia Cholecalcif 2-27 tablet by Sey bold maritza, 25 00:00: mouth MCG (1000 00 daily UT) oral Capsule Vitamin D, 2020-03 Yes [id number] 1{tbl} Take 1 Kasia Cholecalcif 2-27 tablet by Sey bold maritza, 25 00:00: mouth MCG (1000 00 daily UT) oral Capsule Vitamin D, 2020-03 Yes [id number] 1{tbl} Take 1 Kasia Cholecalcif 2-27 tablet by Sey bold maritza, 25 00:00: mouth MCG (1000 daily UT) oral Capsule Vitamin D, 2020-03 Yes [id number] 1{tbl} Take 1 Kasia Cholecalcif 2-27 tablet by Sey bold maritza, 25 00:00: mouth MCG (1000 daily UT) oral Capsule Vitamin D, 2020-03 Yes [id number] 1{tbl} Take 1 Kasia Cholecalcif 2-27 tablet by Sey bold maritza, 25 00:00: mouth MCG (1000 00 daily UT) oral Capsule Vitamin D, 2020-03 Yes [id number] 1{tbl} Take 1 Kasia Cholecalcif 2-27 tablet by Sey bold maritza, 25 00:00: mouth - MCG (1000 00 daily Externa UT) oral l Capsule Vitamin D, 2020-03 Yes [id number] 1{tbl} Take 1 Kasia Cholecalcif 2-27 tablet by Sey bold maritza, 25 00:00: mouth - MCG (1000 00 daily Externa [place]) oral l Capsule Vitamin D, 2020-03 Yes [id number] 1{tbl} Take 1 Kasia Cholecalcif 2-27 tablet by Sey bold maritza, 25 00:00: mouth - MCG (1000 00 daily Externa [place]) oral l Capsule Vitamin D, 2020-03 Yes [id number] 1{tbl} Take 1 Kasia Cholecalcif 2-27 tablet by Sey bold maritza, 25 00:00: mouth - MCG (1000 00 daily Externa [place]) oral l Capsule cholecalcif 2020-03 Yes 1{tbl} QD Take [address] [facility]itza 2-27 tablet by Devyn (Vitamin 00:00: mouth Medical D3) 25 mcg 00 daily. Center (1,000 unit) tablet Ciprofloxac 2020-03- No [id number] 500mg Take 1 Kasia in HCl 2-27 01-04 tablet Seybold (Cipro) 500 00:00: 05:59 (500 mg MG oral 00 :00 total) by Tablet mouth 2 times daily for 7 days Metformin 2020-03 Yes [id number] 1000mg Take 2 Kasia HCl 500 MG 2-23 tablets Seybol d oral Tablet 00:00: (1,000 mg 00 total) by mouth 2 times daily (with meals) Famotidine 2020-03 Yes [id number] 20mg Take 1 Kasia (PEPCID) 20 2-23 tablet (20 Se ybold MG oral 00:00: mg total) tablet 00 by mouth 2 times daily Metformin 2020-03 Yes [id number] 1000mg Take 2 Kasia HCl 500 MG 2-23 tablets Seybol d oral Tablet 00:00: (1,000 mg 00 total) by mouth 2 times daily (with meals) Famotidine 2020-03 Yes [id number] 20mg Take 1 Kasia (PEPCID) 20 2-23 tablet (20 Se ybold MG oral 00:00: mg total) tablet 00 by mouth 2 times daily Metformin 2020-03 Yes [id number] 1000mg Take 2 Kasia HCl 500 MG 2-23 tablets Seybol d oral Tablet 00:00: (1,000 mg 00 total) by mouth 2 times daily (with meals) Famotidine 2020-03 Yes [id number] 20mg Take 1 Kasia (PEPCID) 20 2-23 tablet (20 Se ybold MG oral 00:00: mg total) tablet 00 by mouth 2 times daily Famotidine 2020-03- No [id number] 20mg Take 1 Kasia (PEPCID) 20 2-23 03-17 tablet (20 S eybold MG oral 00:00: 00:00 mg total) tablet 00 :00 by mouth 2 times daily Celecoxib 2020-03 Yes [id number] TAKE 1 Ke lsey 200 MG oral 1-30 CAPSULE BY Se ybold Capsule 00:00: MOUTH 2 00 TIMES DAILY. Celecoxib 2020-03 Yes [id number] TAKE 1 Ke lsey 200 MG oral 1-30 CAPSULE BY Se ybold Capsule 00:00: MOUTH 2 00 TIMES DAILY. Famotidine 2020-03- No [id number] TAKE 1 Kasia (PEPCID) 20 1-23 12-23 [id number] TABLET BY Seybold MG oral 00:00: 00:00 MOUTH tablet 00 :00 TWICE A DAY Lansoprazol 2020-03 Yes [id number] 30mg Take 1 Kasia e 30 MG 1-15 tablet (30 Seybol d oral Tablet 00:00: mg total) Delayed 00 by mouth Release daily Dispersible Lansoprazol 2020-03 Yes [id number] 30mg Take 1 Kasia e 30 MG 1-15 tablet (30 Seybol d oral Tablet 00:00: mg total) Delayed 00 by mouth Release daily Dispersible Fluconazole 2020-03 Yes Kasia 150 MG oral 1-10 Seybold Tablet 00:00: 00 Fluconazole 2020-03 Yes Kasia 150 MG oral 1-10 Seybold Tablet 00:00: 00 Fluconazole 2020-03 Yes Kasia 150 MG oral 1-10 Seybold Tablet 00:00: 00 Fluconazole 2020-03- No Kelse y 150 MG oral 1-10 -17 Seybold Tablet 00:00: 00:00 00 :00 Nitrofurant 2020-03 Yes [id number] 100mg Take 1 Kasia oin Monohyd 1-09 capsule Seybo ld Macro 00:00: (100 mg (Macrobid) 00 total) by 100 MG oral mouth 2 Capsule times daily Nitrofurant 2020-03 Yes [id number] 100mg Take 1 Kasia oin Monohyd 1-09 capsule Seybo ld Macro 00:00: (100 mg (Macrobid) 00 total) by 100 MG oral mouth 2 Capsule times daily Nitrofurant 2020-03 Yes [id number] 100mg Take 1 Kasia oin Monohyd 1-09 capsule Seybo ld Macro 00:00: (100 mg (Macrobid) 00 total) by 100 MG oral mouth 2 Capsule times daily Nitrofurant 2020-03- No [id number] 100mg Take 1 Kasia oin Monohyd 1-09 03-17 capsule Seyb old Macro 00:00: 00:00 (100 mg (Macrobid) 00 :00 total) by 100 MG oral mouth 2 Capsule times daily Lactobacill 2020-03 Yes 1{capsu Take 1 K elsey us-Inulin 08 le} capsule by Seyb old (Culturelle 14:36: mouth Digestive 01 daily Health) oral Capsule Aspirin 2020-03 Yes [...] by Dilcia parra (Culturelle 14:36: mouth Digestive 01 daily Health) oral Capsule Aspirin 2020-03 Yes [...] by Dilcia parra (Culturelle 14:36: mouth Digestive 01 daily Health) oral Capsule Aspirin 2020-03 Yes 81mg Take 81 mg Nereyda ey (Aspirin 1-08 by mouth Seybold 81) 81 MG 14:36: daily oral Tablet 01 Delayed Response Magnesium 2020-03 Yes 1 tablet Nereyda ey 250 MG oral 08 with a Seybol d Tablet 14:36: meal 01 Lansoprazol 2020-03 Yes [id number] 30mg Take 1 Kasia e 30 MG 1-08 tablet (30 Seybol d oral Tablet 00:00: mg total) Delayed 00 by mouth Release daily Dispersible Alum & Mag 2020-03 Yes [id number] 15mL Take 15 mL Kasia Hydroxide-S 1-08 by mouth Dilcia parra imeth 00:00: every 4 to (Alumina-Ma 00 6 hours as gnesia-Rosetta needed thicone) (gas) 200-200-20 MG/5ML oral Suspension Sennosides 2020-03 Yes [id number] 1{capsu Take 1 Kasia (Senna) 8.6 1-08 le} capsule by Se ybold MG oral 00:00: mouth Capsule 00 nightly Celecoxib 2020-03 Yes [id number] 200mg Take 1 K elsey (CeleBREX) 1-08 capsule Seybol d 200 MG oral 00:00: (200 mg Capsule 00 total) by mouth 2 times daily Alum & Mag 2020-03 Yes [id number] 15mL Take 15 mL Kasia Hydroxide-S 1-08 by mouth Seyb old imeth 00:00: every 4 to (Alumina-Ma 00 6 hours as gnesia-Rosetta needed thicone) (gas) 200-200-20 MG/5ML oral Suspension Sennosides 2020-03 Yes [id number] 1{capsu Take 1 Kasia (Senna) 8.6 1-08 le} capsule by Se ybold MG oral 00:00: mouth Capsule 00 nightly Alum & Mag 2020-03 Yes [id number] 15mL Take 15 mL Kasia Hydroxide-S 1-08 by mouth Seyb old imeth 00:00: every 4 to (Alumina-Ma 00 6 hours as gnesia-Rosetta needed thicone) (gas) 200-200-20 MG/5ML oral Suspension Sennosides 2020-03 Yes [id number] 1{capsu Take 1 Kasia (Senna) 8.6 1-08 le} capsule by Se ybold MG oral 00:00: mouth Capsule 00 nightly Alum & Mag 2020-03 Yes [id number] 15mL Take 15 mL Kasia Hydroxide-S 1-08 by mouth Seyb old imeth 00:00: every 4 to (Alumina-Ma 00 6 hours as gnesia-Rosetta needed thicone) (gas) 200-200-20 MG/5ML oral Suspension Sennosides 2020-03 Yes [id number] 1{capsu Take 1 Kasia (Senna) 8.6 1-08 le} capsule by Se ybold MG oral 00:00: mouth Capsule 00 nightly Alum & Mag 2020-03 Yes [id number] 15mL Take 15 mL Kasia Hydroxide-S 1-08 by mouth Seyb old imeth 00:00: every 4 to (Alumina-Ma 00 6 hours as gnesia-Rosetta needed thicone) (gas) 200-200-20 MG/5ML oral Suspension Alum & Mag 2020-03 Yes [id number] 15mL Take 15 mL Kasia Hydroxide-S 1-08 by mouth Seyb old imeth 00:00: every 4 to (Alumina-Ma 00 6 hours as gnesia-Rosetta needed thicone) (gas) 200-200-20 MG/5ML oral Suspension Alum & Mag 2020-03 Yes [id number] 15mL Take 15 mL Kasia Hydroxide-S 1-08 by mouth Seyb old imeth 00:00: every 4 to (Alumina-Ma 00 6 hours as gnesia-Rosetta needed thicone) (gas) 200-200-20 MG/5ML oral Suspension Alum & Mag 2020-03 Yes [id number] 15mL Take 15 mL Kasia Hydroxide-S 1-08 by mouth Seyb old imeth 00:00: every 4 to (Alumina-Ma 00 6 hours as gnesia-Rosetta needed thicone) (gas) 200-200-20 MG/5ML oral Suspension Sennosides 2020-03- No [id number] 1{capsu Take 1 Kasia (Senna) 8.6 03-15 03-17 le} capsule by S eybold MG oral 00:00: 00:00 mouth Capsule 00 :00 nightly Metformin 2020-03 Yes 1000mg Take 2 Nereyda ey HCl 500 MG 1-02 tablets Seybol d oral Tablet 00:00: (1,000 mg 00 total) by mouth daily (with breakfast) Metformin 2020-03- No 1000mg Take 2 Killian sey HCl 500 MG -02 12-23 tablets Seybo ld oral Tablet 00:00: 00:00 (1,000 mg 00 :00 total) by mouth daily (with breakfast) Famotidine 2020-03 Yes [id number] 20mg Take 1 Kasia (PEPCID) 20 0-28 [id number] tablet (20 Seybold MG oral 00:00: mg total) tablet 00 by mouth 2 times daily Ibuprofen 2020-03- No [id number] 800mg Q6H Take 1 Kasia 800 MG oral 0-28 -08 [id number] tablet Sey bold Tablet 00:00: 00:00 (800 [...] Kasia VAGINAL 0.1 0-27 Seybold MG/GM 00:00: - vaginal 00 Externa Cream l ESTRADIOL 2020-03 Yes Kasia VAGINAL 0.1 0-27 Seybold MG/GM 00:00: - vaginal 00 Externa Cream l ESTRADIOL 2020-03 Yes Kasia VAGINAL 0.1 0-27 Seybold MG/GM 00:00: - vaginal 00 Externa Cream l ESTRADIOL 2020-03 Yes Kasia VAGINAL 0.1 0-27 Seybold MG/GM 00:00: - vaginal 00 Externa Cream l Lactobacill 2020-03 Yes 1{capsu Take 1 K elsey us-Inulin 0-20 le} capsule by Dilcia parra (Culturelle 09:08: mouth Digestive 39 daily Health) [...] Tablet 09:08: meal 39 Phenazopyri 2020-03 Yes [id number] 200mg Q.[id number] Take 1 Kasia dine HCl 0-20 [id number] tablet y bold 200 MG oral 00:00: 3D (200 mg Tablet 00 total) by mouth 3 times daily as needed for pain Continuous 2020-03 Yes [id number] 1{each} 1 each by Kasia Blood Gluc 0-20 does not Seybo ld Sensor 00:00: apply (FreeStyle 00 route 3 Farhana 2 times Sensor) daily does not apply Misc Phenazopyri 2020-03 Yes [id number] 200mg Q.[id number] Take 1 Kasia dine HCl 0-20 [id number] tablet Sey bold 200 MG oral 00:00: 3D (200 mg Tablet 00 total) by mouth 3 times daily as needed for pain Continuous 2020-03 Yes [id number] 1{each} 1 each by Kasia Blood Gluc 0-20 does not Seybo ld Sensor 00:00: apply (FreeStyle 00 route 3 Farhana 2 times Sensor) daily does not apply Misc Phenazopyri 2020-03 Yes [id number] 200mg Q.[id number] Take 1 Kasia dine HCl 0-20 [id number] tablet Sey bold 200 MG oral 00:00: 3D (200 mg Tablet 00 total) by mouth 3 times daily as needed for pain Continuous 2020-03 Yes [id number] 1{each} 1 each by Kasia Blood Gluc 0-20 does not Seybo ld Sensor 00:00: apply (FreeStyle 00 route 3 Farhana 2 times Sensor) daily does not apply Misc Phenazopyri 2020-03 Yes [id number] 200mg Q.[id number] Take 1 Kasia dine HCl 0-20 [id number] tablet Sey bold 200 MG oral 00:00: 3D (200 mg Tablet 00 total) by mouth 3 times daily as needed for pain Continuous 2020-03 Yes [id number] 1{each} 1 each by Kasia Blood Gluc 0-20 does not Seybo ld Sensor 00:00: apply (FreeStyle 00 route 3 Farhana 2 times Sensor) daily does not apply Misc Phenazopyri 2020-03 Yes [id number] 200mg Q.[id number] Take 1 Kasia dine HCl 0-20 [id number] tablet Sey bold 200 MG oral 00:00: 3D (200 mg Tablet 00 total) by mouth 3 times daily as needed for pain Continuous 2020-03 Yes [id number] 1{each} 1 each by Kasia Blood Gluc 0-20 does not Seybo ld Sensor 00:00: apply (FreeStyle 00 route 3 Farhana 2 times Sensor) daily does not apply Misc Phenazopyri 2020-03- No [id number] 200mg Q.[id number] Take 1 Kasia dine HCl 0-20 -17 [id number] tablet Se ybold 200 MG oral 00:00: 00:00 3D (200 mg Tablet 00 :00 total) by mouth 3 times daily as needed for pain Continuous 2020-03- No [id number] 1{each} 1 each by Kasia Blood Gluc 0-20 -17 does not Seyb old Sensor 00:00: 00:00 apply (FreeStyle 00 :00 route 3 Farhana 2 times Sensor) daily does not apply Misc TRIMETHOPRI 2020-03- No [id number] 1{tbl} Take 1 Kasia M-SULFAMETH 0-20 10-26 tablet by Se ybold OXAZOLE 00:00: 04:59 mouth 2 (Bactrim 00 :00 times DS) 800-160 daily for MG oral 5 days Tablet Magnesium 2020-03 Yes 1 tablet Nereyda ey 250 MG oral 0-12 with a Seybol d Tablet 12:44: meal 08 Ibuprofen-F 2020-03 Yes [id number] 1{tbl} Take 1 Kasia amotidine 0-12 [id number] tablet by y bold 800-26.6 MG 00:00: mouth 2 oral Tablet 00 times daily Phenazopyri 2020-03 Yes [id number] 200mg Q.[id number] Take 1 Kasia dine HCl 0-12 [id number] tablet y bold 200 MG oral 00:00: 3D (200 mg Tablet 00 total) by mouth 3 times daily as needed for pain Continuous 2020-03 Yes [id number] Use as K elsey Blood Gluc 0-12 directed Seybo ld Sensor 00:00: for (FreeStyle 00 continuous Farhana 14 glucose Day Sensor) monitoring does not with Farhana apply Misc sytem Glucose 2020-03 Yes [id number] Use as Nereyda ey Blood 0-12 directed Seybold (FreeStyle 00:00: for Precision 00 continuous Alexey Test) glucose in vitro monitoring Strip with Farhana system Ostomy 2020-03 Yes [id number] Use as Kelse y Supplies 0-12 directed Seybold (Skin Tac 00:00: for Adhesive 00 continuous Barrier glucose Wipe) does monitoring not apply with Farhana Misc system Gabapentin 2020-03 Yes [id number] 300mg Take 1 Kasia 300 MG oral 0-12 [id number] capsule Sey bold Capsule 00:00: (300 mg 00 total) by mouth 3 times daily Ibuprofen-F 2020-03 Yes [id number] 1{tbl} Take 1 Kasia amotidine 0-12 [id number] tablet by Sey bold 800-26.6 MG 00:00: mouth 2 oral Tablet 00 times daily Glucose 2020-03 Yes [id number] Use as Nereyda ey Blood 0-12 directed Seybold (FreeStyle 00:00: for Precision 00 continuous Alexey Test) glucose in vitro monitoring Strip with Farhana system Ostomy 2020-03 Yes [id number] Use as Kelse y Supplies 0-12 directed Seybold (Skin Tac 00:00: for Adhesive 00 continuous Barrier glucose Wipe) does monitoring not apply with Farhana Misc system Gabapentin 2020-03 Yes [id number] 300mg Take 1 Kasia 300 MG oral 0-12 [id number] capsule Sey bold Capsule 00:00: (300 mg 00 total) by mouth 3 times daily Glucose 2020-03 Yes [id number] Use as Nereyda ey Blood 0-12 directed Seybold (FreeStyle 00:00: for Precision 00 continuous Alexey Test) glucose in vitro monitoring Strip with Farhana system Ostomy 2020-03 Yes [id number] Use as Kelse y Supplies 0-12 directed Seybold (Skin Tac 00:00: for Adhesive 00 continuous Barrier glucose Wipe) does monitoring not apply with Farhana Misc system Gabapentin 2020-03 Yes [id number] 300mg Take 1 Kasia 300 MG oral 0-12 [id number] capsule Sey bold Capsule 00:00: (300 mg 00 total) by mouth 3 times daily Glucose 2020-03 Yes [id number] Use as Nereyda ey Blood 0-12 directed Seybold (FreeStyle 00:00: for Precision 00 continuous Alexey Test) glucose in vitro monitoring Strip with Farhana system Ostomy 2020-03 Yes [id number] Use as Kelse y Supplies 0-12 directed Seybold (Skin Tac 00:00: for Adhesive 00 continuous Barrier glucose Wipe) does monitoring not apply with Farhana Misc system Gabapentin 2020-03 Yes [id number] 300mg Take 1 Kasia 300 MG oral 0-12 [id number] capsule Sey bold Capsule 00:00: (300 mg 00 total) by mouth 3 times daily Glucose 2020-03 Yes [id number] Use as Nereyda ey Blood 0-12 directed Seybold (FreeStyle 00:00: for Precision 00 continuous Alexey Test) glucose in vitro monitoring Strip with Farhana system Ostomy 2020-03 Yes [id number] Use as Kelse y Supplies 0-12 directed Seybold (Skin Tac 00:00: for Adhesive 00 continuous Barrier glucose Wipe) does monitoring not apply with Farhana Misc system Gabapentin 2020-03 Yes [id number] 300mg Take 1 Kasia 300 MG oral 0-12 [id number] capsule Sey bold Capsule 00:00: (300 mg 00 total) by mouth 3 times daily Glucose 2020-03 Yes [id number] Use as Nereyda ey Blood 0-12 directed Seybold (FreeStyle 00:00: for Precision 00 continuous Alexey Test) glucose in vitro monitoring Strip with Farhana system Ostomy 2020-03 Yes [id number] Use as Kelse y Supplies 0-12 directed Seybold (Skin Tac 00:00: for Adhesive 00 continuous Barrier glucose Wipe) does monitoring not apply with Farhana Misc system Gabapentin 2020-03 Yes [id number] 300mg Take 1 Kasia 300 MG oral 0-12 [id number] capsule Sey bold Capsule 00:00: (300 mg 00 total) by mouth 3 times daily Glucose 2020-03- No [id number] Use as Killian sey Blood 0-12 03-17 directed Seybold (FreeStyle 00:00: 00:00 for Precision 00 :00 continuous Alexey Test) glucose in vitro monitoring Strip with Farhana system Ostomy 2020-03- No [id number] Use as Nereyda ey Supplies 0-12 03-17 directed Seybol d (Skin Tac 00:00: 00:00 for Adhesive 00 :00 continuous Barrier glucose Wipe) does monitoring not apply with Farhana Misc system Gabapentin 2020-03- No [id number] 300mg Take 1 Kasia 300 MG oral 0-12 03-17 [id number] capsule Se ybold Capsule 00:00: 00:00 (300 mg 00 :00 total) by mouth 3 times daily Phenazopyri 2020-03- No [id number] 200mg Q.[id number] Take 1 Kasia dine HCl 0-12 10-20 [id number] tablet Se ybold 200 MG oral 00:00: 00:00 3D (200 mg Tablet 00 :00 total) by mouth 3 times daily as needed for pain Continuous 2020-03- No [id number] Use as Kasia Blood Gluc 0-12 10-20 directed Seyb old Sensor 00:00: 00:00 for (FreeStyle 00 :00 continuous Farhana 14 glucose Day Sensor) monitoring does not with Farhana apply Misc sytem Nitrofurant 2020-03- No [id number] 100mg Take 1 Kasia oin Monohyd 0-12 10-18 capsule Seyb old Macro 100 00:00: 04:59 (100 mg MG oral 00 :00 total) by Capsule mouth 2 times daily for 5 days Amlodipine 2020-03 Yes [id number] 5mg Take 1 K elsey Besylate 5 0-04 tablet (5 Seyb old MG oral 00:00: mg total) Tablet 00 by mouth daily Continuous 2020-03 Yes [id number] Change the Ksaia Blood Gluc 0-04 sensor Seybold Sensor 00:00: every 14 (FreeStyle 00 days Farhana 14 Day Sensor) does not apply Misc Amlodipine 2020-03 Yes [id number] 5mg Take 1 K elsey Besylate 5 0-04 tablet (5 Seyb old MG oral 00:00: mg total) Tablet 00 by mouth daily Continuous 2020-03 Yes [id number] Change the Kasia Blood Gluc 0-04 sensor Seybold Sensor 00:00: every 14 (FreeStyle 00 days Farhana 14 Day Sensor) does not apply Misc Amlodipine 2020-03 Yes [id number] 5mg Take 1 K elsey Besylate 5 0-04 tablet (5 Seyb old MG oral 00:00: mg total) Tablet 00 by mouth daily Continuous 2020-03 Yes [id number] Change the Kasia Blood Gluc 0-04 sensor Seybold Sensor 00:00: every 14 (FreeStyle 00 days Farhana 14 Day Sensor) does not apply Misc Amlodipine 2020-03 Yes [id number] 5mg Take 1 K elsey Besylate 5 0-04 tablet (5 Seyb old MG oral 00:00: mg total) Tablet 00 by mouth daily Continuous 2020-03 Yes [id number] Change the Kasia Blood Gluc 0-04 sensor Seybold Sensor 00:00: every 14 (FreeStyle 00 days Farhana 14 Day Sensor) does not apply Misc Amlodipine 2020-03 Yes [id number] 5mg Take 1 K elsey Besylate 5 0-04 tablet (5 Seyb old MG oral 00:00: mg total) Tablet 00 by mouth daily Continuous 2020-03 Yes [id number] Change the Kasia Blood Gluc 0-04 sensor Seybold Sensor 00:00: every 14 (FreeStyle 00 days Farhana 14 Day Sensor) does not apply Misc Continuous 2020-03 Yes [id number] Change the Kasia Blood Gluc 0-04 sensor Seybold Sensor 00:00: every 14 (FreeStyle 00 days Farhana 14 Day Sensor) does not apply Misc Continuous 2020-03 202- No [id number] Change the Kasia Blood Gluc 0-04 03-17 sensor Seybol d Sensor 00:00: 00:00 every 14 (FreeStyle 00 :00 days Farhana 14 Day Sensor) does not apply Misc Lansoprazol 2020- No 30mg Take 30 mg Kasia e 30 MG 11-28 by mouth Seybold oral Tablet 08:37: 00:00 daily Delayed 37 :00 Release Dispersible Clopidogrel 2020- No 75mg Take 75 mg Kasia Bisulfate 11-28 by mouth Seybo ld 75 MG oral 08:37: 00:00 daily Tablet 37 :00 Ferrous 2020- No 325mg Take 325 Nereyda ey Sulfate 325 11-28 mg by Seybol d (65 Fe) MG 08:37: 00:00 mouth oral Tablet 37 :00 daily (with breakfast) Lisinopril 2020- No 20mg Take 20 mg Kasia 20 MG oral 11-28 by mouth Seyb old Tablet 08:37: 00:00 daily 37 :00 Metformin Yes 2{tbl} Take 2 Nereyda ey HCl 500 MG 9-23 tablets by Sey bold oral Tablet 08:25: mouth 24 daily (with breakfast) Metformin Yes 2{tbl} Take 2 Nereyda ey HCl 500 MG 9-23 tablets by Sey bold oral Tablet 08:25: mouth 24 daily (with breakfast) amLODIPine- 2020-0 2020- No 1{tbl} Take 1 K elsey Atorvastati -28 11- tablet by Se ybold n 5-10 MG 08:24: 00:00 mouth oral Tablet 49 :00 daily Lactobacill Yes 1{capsu Take 1 K elsey us-Inulin 11-28 le} capsule by Seyb old (Culturelle 08:15: mouth Digestive 47 daily Health) oral Capsule Aspirin Yes 81mg Take 81 mg Nereyda ey (Aspirin -23 by mouth Seybold 81) 81 MG 08:15: daily oral Tablet 47 Delayed Response Lactobacill Yes 1{capsu Take 1 K elsey us-Inulin - le} capsule by Seyb old (Culturelle 08:15: mouth Digestive 47 daily Health) oral Capsule Aspirin Yes 81mg Take 81 mg Nereyda ey (Aspirin 11-28 by mouth Seybold 81) 81 MG 08:15: daily oral Tablet 47 Delayed Response Lansoprazol Yes [id number] 30mg Take 1 Kasia e 30 MG - tablet (30 Seybol d oral Tablet 00:00: mg total) Delayed 00 by mouth Release daily Dispersible Insulin Yes [id number] 20U Inject 20 K elsey Aspart Prot 11-28 units into Se ybold & Aspart 00:00: the skin 2 (NovoLOG 00 times Mix 70/30 daily FlexPen) (before (70-30) 100 meals) UNIT/ML subcutaneou s Suspension Pen-injecto r Glucose Yes [id number] Test 2-3 Ke lsey Blood in - times per Seybol d vitro Strip 00:00: day 00 Ferrous Yes [id number] 325mg Take 1 Killian sey Sulfate 325 -23 tablet Seybol d (65 Fe) MG 00:00: (325 mg oral Tablet 00 total) by mouth daily (with breakfast) Lisinopril Yes [id number] 20mg Take 1 K elsey 20 MG oral 9-23 tablet (20 Sey bold Tablet 00:00: mg total) 00 by mouth daily Metoprolol Yes [id number] 100mg Take 1 Kasia Succinate 9-23 tablet Seybold 100 MG oral 00:00: (100 mg TABLET SR 00 total) by 24 HR mouth daily Rosuvastati Yes [id number] 10mg Take 1 Kasia n Calcium 9-23 tablet (10 Seyb old 10 MG oral 00:00: mg total) Tablet 00 by mouth daily Clopidogrel Yes [id number] 75mg Take 1 Kasia Bisulfate 9-23 tablet (75 Seyb old 75 MG oral 00:00: mg total) Tablet 00 by mouth daily Lansoprazol Yes [id number] 30mg Take 1 Kasia e 30 MG 9-23 tablet (30 Seybol d oral Tablet 00:00: mg total) Delayed 00 by mouth Release daily Dispersible Insulin Yes [id number] 20U Inject 20 K elsey Aspart Prot 9-23 units into Se ybold & Aspart 00:00: the skin 2 (NovoLOG 00 times Mix 70/30 daily FlexPen) (before (70-30) 100 meals) UNIT/ML subcutaneou s Suspension Pen-injecto r Glucose Yes [id number] Test 2-3 Ke lsey Blood in -23 times per Seybol d vitro Strip 00:00: day 00 Ferrous Yes [id number] 325mg Take 1 Killian sey Sulfate 325 9-23 tablet Seybol d (65 Fe) MG 00:00: (325 mg oral Tablet 00 total) by mouth daily (with breakfast) Lisinopril Yes [id number] 20mg Take 1 K elsey 20 MG oral 9-23 tablet (20 Sey bold Tablet 00:00: mg total) 00 by mouth daily Metoprolol Yes [id number] 100mg Take 1 Kasia Succinate 9-23 tablet Seybold 100 MG oral 00:00: (100 mg TABLET SR 00 total) by 24 HR mouth daily Rosuvastati Yes [id number] 10mg Take 1 Kasia n Calcium 9-23 tablet (10 Seyb old 10 MG oral 00:00: mg total) Tablet 00 by mouth daily Clopidogrel Yes [id number] 75mg Take 1 Kasia Bisulfate 9-23 tablet (75 Seyb old 75 MG oral 00:00: mg total) Tablet 00 by mouth daily Insulin Yes [id number] 20U Inject 20 K elsey Aspart Prot 9-23 units into Se ybold & Aspart 00:00: the skin 2 (NovoLOG 00 times Mix 70/30 daily FlexPen) (before (70-30) 100 meals) UNIT/ML subcutaneou s Suspension Pen-injecto r Glucose Yes [id number] Test 2-3 Ke lsey Blood in 9-23 times per Seybol d vitro Strip 00:00: day 00 Ferrous Yes [id number] 325mg Take 1 Killian sey Sulfate 325 9-23 tablet Seybol d (65 Fe) MG 00:00: (325 mg oral Tablet 00 total) by mouth daily (with breakfast) Lisinopril Yes [id number] 20mg Take 1 K elsey 20 MG oral 9-23 tablet (20 Sey bold Tablet 00:00: mg total) 00 by mouth daily Metoprolol Yes [id number] 100mg Take 1 Kasia Succinate 9-23 tablet Seybold 100 MG oral 00:00: (100 mg TABLET SR 00 total) by 24 HR mouth daily Rosuvastati Yes [id number] 10mg Take 1 Kasia n Calcium 9-23 tablet (10 Seyb old 10 MG oral 00:00: mg total) Tablet 00 by mouth daily Clopidogrel Yes [id number] 75mg Take 1 Kasia Bisulfate 9-23 tablet (75 Seyb old 75 MG oral 00:00: mg total) Tablet 00 by mouth daily Insulin Yes [id number] 20U Inject 20 K elsey Aspart Prot 9-23 units into Se ybold & Aspart 00:00: the skin 2 (NovoLOG 00 times Mix 70/30 daily FlexPen) (before (70-30) 100 meals) UNIT/ML subcutaneou s Suspension Pen-injecto r Glucose Yes [id number] Test 2-3 Ke lsey Blood in 9-23 times per Seybol d vitro Strip 00:00: day 00 Ferrous Yes [id number] 325mg Take 1 Killian sey Sulfate 325 9-23 tablet Seybol d (65 Fe) MG 00:00: (325 mg oral Tablet 00 total) by mouth daily (with breakfast) Lisinopril Yes [id number] 20mg Take 1 K elsey 20 MG oral 9-23 tablet (20 Sey bold Tablet 00:00: mg total) 00 by mouth daily Metoprolol Yes [id number] 100mg Take 1 Kasia Succinate 9-23 tablet Seybold 100 MG oral 00:00: (100 mg TABLET SR 00 total) by 24 HR mouth daily Rosuvastati Yes [id number] 10mg Take 1 Kasia n Calcium 9-23 tablet (10 Seyb old 10 MG oral 00:00: mg total) Tablet 00 by mouth daily Clopidogrel Yes [id number] 75mg Take 1 Kasia Bisulfate 9-23 tablet (75 Seyb old 75 MG oral 00:00: mg total) Tablet 00 by mouth daily Insulin Yes [id number] 20U Inject 20 K elsey Aspart Prot 9-23 units into Se ybold & Aspart 00:00: the skin 2 (NovoLOG 00 times Mix 70/30 daily FlexPen) (before (70-30) 100 meals) UNIT/ML subcutaneou s Suspension Pen-injecto r Glucose Yes [id number] Test 2-3 Ke lsey Blood in 11-28 times per Seybol d vitro Strip 00:00: day 00 Clopidogrel Yes [id number] 75mg Take 1 Kasia Bisulfate 9-23 tablet (75 Seyb old 75 MG oral 00:00: mg total) Tablet 00 by mouth daily Glucose Yes [id number] Test 2-3 Ke lsey Blood in 11-28 times per Seybol d vitro Strip 00:00: day 00 Ferrous Yes [id number] 325mg Take 1 Killian sey Sulfate 325 9-23 tablet Seybol d (65 Fe) MG 00:00: (325 mg oral Tablet 00 total) by mouth daily (with breakfast) Lisinopril Yes [id number] 20mg Take 1 K elsey 20 MG oral 9-23 tablet (20 Sey bold Tablet 00:00: mg total) 00 by mouth daily Metoprolol Yes [id number] 100mg Take 1 Kasia Succinate 9-23 tablet Seybold 100 MG oral 00:00: (100 mg TABLET SR 00 total) by 24 HR mouth daily Rosuvastati Yes [id number] 10mg Take 1 Kasia n Calcium 9-23 tablet (10 Seyb old 10 MG oral 00:00: mg total) Tablet 00 by mouth daily Clopidogrel Yes [id number] 75mg Take 1 Kasia Bisulfate 9-23 tablet (75 Seyb old 75 MG oral 00:00: mg total) Tablet 00 by mouth daily Lansoprazol Yes [id number] 30mg Take 1 Kasia e 30 MG 9-23 tablet (30 Seybol d oral Tablet 00:00: mg total) Delayed 00 by mouth Release daily Dispersible Insulin Yes [id number] 20U Inject 20 K elsey Aspart Prot 9-23 units into Se ybold & Aspart 00:00: the skin 2 (NovoLOG 00 times Mix 70/30 daily FlexPen) (before (70-30) 100 meals) UNIT/ML subcutaneou s Suspension Pen-injecto r Glucose Yes [id number] Test 2-3 Ke lsey Blood in -23 times per Seybol d vitro Strip 00:00: day 00 Ferrous Yes [id number] 325mg Take 1 Killian sey Sulfate 325 9-23 tablet Seybol d (65 Fe) MG 00:00: (325 mg oral Tablet 00 total) by mouth daily (with breakfast) Lisinopril Yes [id number] 20mg Take 1 K elsey 20 MG oral 9-23 tablet (20 Sey bold Tablet 00:00: mg total) 00 by mouth daily Metoprolol Yes [id number] 100mg Take 1 Kasia Succinate 9-23 tablet Seybold 100 MG oral 00:00: (100 mg TABLET SR 00 total) by 24 HR mouth daily Rosuvastati Yes [id number] 10mg Take 1 Kasia n Calcium 9-23 tablet (10 Seyb old 10 MG oral 00:00: mg total) Tablet 00 by mouth daily Clopidogrel Yes [id number] 75mg Take 1 Kasia Bisulfate 9-23 tablet (75 Seyb old 75 MG oral 00:00: mg total) Tablet 00 by mouth daily Clopidogrel 2021- No [id number] 75mg Take 1 Kasia Bisulfate 9-23 03-17 tablet (75 Sey bold 75 MG oral 00:00: 00:00 mg total) Tablet 00 :00 by mouth daily Glucose 2021- No [id number] Test 2-3 K elsey Blood in 11-28 03-17 times per Seybo ld vitro Strip 00:00: 00:00 day 00 :00 Insulin 2021- No [id number] 20U Inject 20 Kasia Aspart Prot 11-28 02-11 units into S eybold & Aspart 00:00: 00:00 the skin 2 (NovoLOG 00 :00 times Mix 70/30 daily FlexPen) (before (70-30) 100 meals) UNIT/ML subcutaneou s Suspension Pen-injecto r Lansoprazol 2020- No [id number] 30mg Take 1 Kasia e 30 MG 11-2808 tablet (30 Seybo ld oral Tablet 00:00: 00:00 mg total) Delayed 00 :00 by mouth Release daily Dispersible Metoprolol 2020- No 100mg Take 1 Killian sey Succinate 09-18 tablet Seybold 100 MG oral 00:00: 00:00 (100 mg TABLET SR 00 :00 total) by 24 HR mouth daily Rosuvastati 2020- No 10mg Take 1 Killian sey n Calcium 09-18 tablet (10 Sey bold 10 MG oral 00:00: 00:00 mg total) Tablet 00 :00 by mouth daily Continuous Yes Change the K elseladarius Blood Gluc 6-02 sensor Seybold Sensor 00:00: every 14 (FreeStyle 00 days Farhana 14 Day Sensor) does not apply Misc naproxen 2019-03 Yes [id number] 550mg Take 1 Un jair sodium 1-12 tablet by ity of (ANAPROX 00:00: mouth 2 [place] DS) 550 mg 00 (two) Medical tablet times Branch daily with meals. methylPREDN 2019-03 Yes [id number] Take by Univers ISolone 1-12 mouth ity of (MEDROL, 00:00: SEE-INSTRU [place] OSEI,) 4 mg 00 CTIONS. Medica l tablets follow Branch package directions naproxen 2019-03 Yes [id number] 550mg Take 1 Un jair sodium 1-12 tablet by ity of (ANAPROX 00:00: mouth 2 [place] DS) 550 mg 00 (two) Medical tablet times Branch daily with meals. methylPREDN 2019-03 Yes [id number] Take by Univers ISolone 1-12 mouth ity of (MEDROL, 00:00: SEE-INSTRU [place] OSEI,) 4 mg 00 CTIONS. Medica l tablets follow Branch package directions naproxen 2019-03 Yes [id number] 550mg Take 1 Un jair sodium 1-12 tablet by ity of (ANAPROX 00:00: mouth 2 [place] DS) 550 mg 00 (two) Medical tablet times Branch daily with meals. methylPREDN 2019-03 Yes [id number] Take by Univers ISolone 1-12 mouth ity of (MEDROL, 00:00: SEE-INSTRU [place] OSEI,) 4 mg 00 CTIONS. Medica l tablets follow Branch package directions naproxen 2019-03 Yes [id number] 550mg Take 1 Un jair sodium 1-12 tablet by ity of (ANAPROX 00:00: mouth 2 [place] DS) 550 mg 00 (two) Medical tablet times Branch daily with meals. methylPREDN 2019-03 Yes [id number] Take by Univers ISolone 1-12 mouth ity of (MEDROL, 00:00: SEE-INSTRU [place] OSEI,) 4 mg 00 CTIONS. Medica l tablets follow Branch package directions naproxen 2019-03 Yes [id number] 550mg Take 1 Un jair sodium 1-12 tablet by ity of (ANAPROX 00:00: mouth 2 [place] DS) 550 mg 00 (two) Medical tablet times Branch daily with meals. methylPREDN 2019-03 Yes [id number] Take by Univers ISolone 1-12 mouth ity of (MEDROL, 00:00: SEE-INSTRU [place] OSEI,) 4 mg 00 CTIONS. Medica l tablets follow Branch package directions naproxen 2019-03 Yes [id number] 550mg Take 1 Un jair sodium 1-12 tablet by ity of (ANAPROX 00:00: mouth 2 [place] DS) 550 mg 00 (two) Medical tablet times Branch daily with meals. methylPREDN 2019-03 Yes [id number] Take by Univers ISolone 1-12 mouth ity of (MEDROL, 00:00: SEE-INSTRU [place] OSEI,) 4 mg 00 CTIONS. Medica l tablets follow Branch package directions naproxen 2019-03 Yes [id number] 550mg Take 1 Un jair sodium 1-12 tablet by ity of (ANAPROX 00:00: mouth 2 [place] DS) 550 mg 00 (two) Medical tablet times Branch daily with meals. methylPREDN 2020- Yes [id number] Take by Univers ISolone 1-12 mouth ity of (MEDROL, 00:00: SEE-INSTRU [place] OSEI,) 4 mg 00 CTIONS. Medica l tablets follow Branch package directions naproxen 2019- Yes [id number] 550mg Take 1 Un jair sodium -12 tablet by ity of (ANAPROX 00:00: mouth 2 [place] DS) 550 mg 00 (two) Medical tablet times Branch daily with meals. methylPREDN 2019- Yes [id number] Take by Univers ISolone 1-12 mouth ity of (MEDROL, 00:00: SEE-INSTRU [place] OSEI,) 4 mg 00 CTIONS. Medica l tablets follow Branch package directions methocarbam 2019-03 2020- No [id number] 500mg Take 1 Univers oL 500 mg -02 15-18 tablet by ity of tablet 00:00: 05:59 mouth 3 [place] 00 :00 (three) Medical times Branch daily for 5 days. methocarbam 2019-03 2020- No [id number] 500mg Take 1 Univers oL 500 mg 03-19-18 tablet by ity of tablet 00:00: 05:59 [...] Branch daily. PANTOPRAZOL 2020-0 Yes Take by Uni vers E SODIUM 8-08 mouth. ity of (PROTONIX 18:30: [place] ORAL) 37 Medical Branch CLOPIDOGREL 2020-0 Yes Take by Uni vers BISULFATE 8-08 mouth. ity of (PLAVIX 18:30: [place] ORAL) 37 Medical Branch INSULIN 2020-0 Yes inject Univers LISPRO 8-08 under the ity of (HUMALOG 18:30: skin. [place]) Medical Branch EMPAGLIFLOZ 2020-0 Yes Take by Uni vers IN 8-08 mouth. ity of (JARDIANCE 18:30: [place] ORAL) 37 Medical Branch LISINOPRIL 2020-0 Yes None Univers 10 MG ORAL 8-08 Entered ity of TAB 18:30: [place] [address] Medical Branch METFORMIN 2020-0 Yes 500mg Take 500 Uni vers HCL 8-08 mg by ity of (METFORMIN 18:30: [place] 2 [place] 37 (two) Medical times Branch daily. PANTOPRAZOL 2020-0 Yes Take by Uni vers E SODIUM 8-08 mouth. ity of (PROTONIX 18:30: [place] ORAL) 37 Medical Branch CLOPIDOGREL 2020-0 Yes Take by Uni vers BISULFATE 8-08 mouth. ity of (PLAVIX 18:30: [place] ORAL) 37 Medical Branch INSULIN 2020-0 Yes inject Univers LISPRO 8-08 under the ity of (HUMALOG 18:30: skin. [facility]) 37 Medical Branch EMPAGLIFLOZ 2020-0 Yes Take by Uni vers IN 8-08 mouth. ity of (JARDIANCE 18:30: [place] ORAL) 37 Medical Branch LISINOPRIL 2020-0 Yes None Univers 10 MG ORAL 8-08 Entered ity of TAB 18:30: [place] [address] Medical Branch METFORMIN 2020-0 Yes 500mg Take 500 Uni vers HCL 8-08 mg by ity of (METFORMIN 18:30: mouth 2 [place] 37 (two) Medical times Branch daily. PANTOPRAZOL 2020-0 Yes Take by Uni vers E SODIUM 8-08 mouth. ity of (PROTONIX 18:30: [place] ORAL) 37 Medical Branch CLOPIDOGREL 2020-0 Yes Take by Uni vers BISULFATE 8-08 mouth. ity of (PLAVIX 18:30: [place] ORAL) 37 Medical Branch INSULIN 2020-0 Yes inject Univers LISPRO 8-08 under the ity of (HUMALOG 18:30: skin. [facility]) 37 Medical Branch EMPAGLIFLOZ 2020-0 Yes Take by Uni vers IN 8-08 mouth. ity of (JARDIANCE 18:30: [place] ORAL) 37 Medical Branch LISINOPRIL 2020-0 Yes None Univers 10 MG ORAL 8-08 Entered ity of TAB 18:30: [place] [address] Medical Branch METFORMIN 2020-0 Yes 500mg Take 500 Uni vers HCL 8-08 mg by ity of (METFORMIN 18:30: mouth 2 [place] 37 (two) Medical times Branch daily. PANTOPRAZOL 2020-0 Yes Take by Uni vers E SODIUM 8-08 mouth. ity of (PROTONIX 18:30: [place] ORAL) 37 Medical Branch CLOPIDOGREL 2020-0 Yes Take by Uni vers BISULFATE 8-08 mouth. ity of (PLAVIX 18:30: [place] ORAL) 37 Medical Branch INSULIN 2020-0 Yes inject Univers LISPRO 8-08 under the ity of (HUMALOG 18:30: skin. [place]) 37 Medical Branch EMPAGLIFLOZ 2020-0 Yes Take by Uni vers IN 8-08 mouth. ity of (JARDIANCE 18:30: [place] ORAL) 37 Medical Branch LISINOPRIL 2020-0 Yes None Univers 10 MG ORAL 8-08 Entered ity of TAB 18:30: [place] 37 Medical Branch METFORMIN 2020-0 Yes 500mg Take 500 Uni vers HCL 8-08 mg by ity of (METFORMIN 18:30: mouth 2 [place] 37 (two) Medical times Branch daily. PANTOPRAZOL 2020-0 Yes Take by Uni vers E SODIUM 8-08 mouth. ity of (PROTONIX 18:30: [place] ORAL) 37 Medical Branch CLOPIDOGREL 2020-0 Yes Take by Uni vers BISULFATE 8-08 mouth. ity of (PLAVIX 18:30: [place] ORAL) 37 Medical Branch INSULIN 2020-0 Yes inject Univers LISPRO 8-08 under the ity of (HUMALOG 18:30: skin. [facility]) 37 Medical Branch EMPAGLIFLOZ 2020-0 Yes Take by Uni vers IN 8-08 mouth. ity of (JARDIANCE 18:30: [place] ORAL) 37 Medical Branch LISINOPRIL 2020-0 Yes None Univers 10 MG ORAL 8-08 Entered ity of TAB 18:30: [place] 37 Medical Branch METFORMIN 2020-0 Yes 500mg Take 500 Uni vers HCL 8-08 mg by ity of (METFORMIN 18:30: mouth 2 [place] 37 (two) Medical times Branch daily. PANTOPRAZOL 2020-0 Yes Take by Uni vers E SODIUM 8-08 mouth. ity of (PROTONIX 18:30: [place] ORAL) 37 Medical Branch CLOPIDOGREL 2020-0 Yes Take by Uni vers BISULFATE 8-08 mouth. ity of (PLAVIX 18:30: [place] ORAL) 37 Medical Branch INSULIN 2020-0 Yes inject Univers LISPRO 8-08 under the ity of (HUMALOG 18:30: skin. [facility]) 37 Medical Branch EMPAGLIFLOZ 2020-0 Yes Take by Uni vers IN 8-08 mouth. ity of (JARDIANCE 18:30: [place] ORAL) 37 Medical Branch LISINOPRIL 2020-0 Yes None Univers 10 MG ORAL 8-08 Entered ity of TAB 18:30: [place] [address] Medical Branch METFORMIN 2020-0 Yes 500mg Take 500 Uni vers HCL 8-08 mg by ity of (METFORMIN 18:30: mouth 2 [place] 37 (two) Medical times Branch daily. PANTOPRAZOL 2020-0 Yes Take by Uni vers E SODIUM 8-08 mouth. ity of (PROTONIX 18:30: [place] ORAL) Medical Branch CLOPIDOGREL 2020-0 Yes Take by Uni vers BISULFATE 8-08 mouth. ity of (PLAVIX 18:30: [place] ORAL) 37 Medical Branch INSULIN 2020-0 Yes inject Univers LISPRO 8-08 under the ity of (HUMALOG 18:30: skin. [facility]) Medical Branch EMPAGLIFLOZ 2020-0 Yes Take by Uni vers IN 8-08 mouth. ity of (JARDIANCE 18:30: [place] ORAL) Medical Branch LISINOPRIL 2020-0 Yes None Univers 10 MG ORAL 808 Entered ity of TAB 18:30: [place] [address] Medical Branch METFORMIN 2020-0 Yes 500mg Take 500 Uni vers HCL 8-08 mg by ity of (METFORMIN 18:30: mouth 2 [place] 37 (two) Medical times [place] daily. PANTOPRAZOL 2020-0 Yes Take by Uni vers E SODIUM 8-08 mouth. ity of (PROTONIX 18:30: [place] ORAL) Medical Branch CLOPIDOGREL 2020-0 Yes Take by Uni vers BISULFATE 8-08 mouth. ity of (PLAVIX 18:30: [place] ORAL) 37 Medical Branch INSULIN 2020-0 Yes inject Univers LISPRO 8-08 under the ity of (HUMALOG 18:30: skin. [facility]) Medical Branch EMPAGLIFLOZ 2020-0 Yes Take by Uni vers IN 8-08 mouth. ity of (JARDIANCE 18:30: [place] ORAL) Medical Branch pantoprazol 2020-0 Yes 40mg 40 mg, Univ ers e 8-08 Oral, ity of (PROTONIX) 14:00: DAILY, [place] EC tablet 00 First dose Medi ranjan 40 mg on Sat Branch 10/14/19 at 0900, Until Discontinu ed, Routine LISINOPRIL 2020-0 Yes None Univers 10 MG ORAL 8-08 Entered ity of TAB 13:30: [place] [address] Medical Branch METFORMIN 2020-0 Yes 500mg Take 500 Uni vers HCL 8-08 mg by ity of (METFORMIN 13:30: mouth 2 [place] 37 (two) Medical times Branch daily. PANTOPRAZOL 2020-0 Yes Take by Uni vers E SODIUM 8-08 mouth. ity of (PROTONIX 13:30: [place] ORAL) 37 Medical Branch CLOPIDOGREL 2020-0 Yes Take by Uni vers BISULFATE 8-08 mouth. ity of (PLAVIX 13:30: [place] ORAL) 37 Medical Branch INSULIN 2020-0 Yes inject Univers LISPRO 8-08 under the ity of (HUMALOG 13:30: skin. [facility]) 37 Medical Branch EMPAGLIFLOZ 2020-0 Yes Take by Uni vers IN 8-08 mouth. ity of (JARDIANCE 13:30: [place] ORAL) 37 Medical Branch LISINOPRIL 2020-0 Yes None Univers 10 MG ORAL 8-08 Entered ity of TAB 13:30: [place] [address] Medical Branch METFORMIN 2020-0 Yes 500mg Take 500 Uni vers HCL 8-08 mg by ity of (METFORMIN 13:30: mouth 2 [place] 37 (two) Medical times Branch daily. PANTOPRAZOL 2020-0 Yes Take by Uni vers E SODIUM 8-08 mouth. ity of (PROTONIX 13:30: [place] ORAL) 37 Medical Branch CLOPIDOGREL 2020-0 Yes Take by Uni vers BISULFATE 8-08 mouth. ity of (PLAVIX 13:30: [place] ORAL) 37 Medical Branch INSULIN 2020-0 Yes inject Univers LISPRO 8-08 under the ity of (HUMALOG 13:30: skin. [facility]) 37 Medical Branch EMPAGLIFLOZ 2020-0 Yes Take by Uni vers IN 8-08 mouth. ity of (JARDIANCE 13:30: [place] ORAL) 37 Medical Branch LISINOPRIL 2020-0 Yes None Univers 10 MG ORAL 8-08 Entered ity of TAB 13:30: [place] [address] Medical Branch METFORMIN 2020-0 Yes 500mg Take 500 Uni vers HCL 8-08 mg by ity of (METFORMIN 13:30: mouth 2 [place] 37 (two) Medical times Branch daily. PANTOPRAZOL 2020-0 Yes Take by Uni vers E SODIUM 8-08 mouth. ity of (PROTONIX 13:30: [place] ORAL) 37 Medical Branch CLOPIDOGREL 2020-0 Yes Take by Uni vers BISULFATE 8-08 mouth. ity of (PLAVIX 13:30: [place] ORAL) 37 Medical Branch INSULIN 2019-0 Yes inject Univers LISPRO 10-13 under the ity of (HUMALOG 13:30: skin. [place]) 37 Medical Branch EMPAGLIFLOZ 2019-0 Yes Take by Uni vers IN 808 mouth. ity of (JARDIANCE 13:30: [place] ORAL) 37 Medical Branch insulin 0 2020- No 15U 15 Units, Univ ers aspart 10-13 08- Subcutaneo ity of RAPID 03:45: 02:37 us, ONCE, [place] (NOVOLOG 00 :00 1 dose, Medical U-100 Wed10/13/19 Branch INSULIN at 2245, ASPART) Routine injection 15 Units Sliding 2020-0 Yes Subcutaneo Univ ers Scale 8- us, TID ity of Insulin - 02:00: MEALS+HS, [place] as Aspart 00 First dose Medical (NOVOLOG) + (after Branch Fsbg last Testing modificati on) on Wed10/13/19 at 2100, Until Discontinu ed, Routine ibuprofen 2019-0 Yes [id number] 400mg Take 1 U nivers 400 mg [...] acute pain, chronic pain ibuprofen 2020-0 Yes [id number] 400mg Take 1 U nivers 400 mg [...] acute pain, chronic pain ibuprofen 2020-0 Yes [id number] 400mg Take 1 U nivers 400 mg [...] acute pain, chronic pain ibuprofen 2020-0 Yes [id number] 400mg Take 1 U nivers 400 mg [...] acute pain, chronic pain ibuprofen 2020-0 Yes [id number] 400mg Take 1 U nivers 400 mg [...] acute pain, chronic pain ibuprofen 2020-0 Yes [id number] 400mg Take 1 U nivers 400 mg [...] acute pain, chronic pain ibuprofen 2020-0 Yes [id number] 400mg Take 1 U nivers 400 mg [...] acute pain, chronic pain ibuprofen 2020-0 Yes [id number] 400mg Take 1 U nivers 400 mg [...] acute pain, chronic pain ibuprofen 2020-0 Yes [id number] 400mg Take 1 U nivers 400 mg [...] acute pain, chronic pain ibuprofen 2020-0 Yes [id number] 400mg Take 1 U nivers 400 mg [...] acute pain, chronic pain ibuprofen 2020-0 Yes [id number] 400mg Take 1 U nivers 400 mg [...] acute pain, chronic pain ibuprofen 2020-0 Yes [id number] 400mg Take 1 U nivers 400 mg [...] acute pain, chronic pain ibuprofen 2020-0 Yes [id number] 400mg Take 1 U nivers 400 mg [...] ONCE, 1 Medica l NaCl 0.9% dose, Wed Branc h (NS) 50 mL 10/13/19 at IV 1230, piggyback Routine, PACU FENTanyl PF 2019-0 2020- No 25ug 25 mcg, Un jair (SUBLIMAZE 10-12 Slow IV ity o f (PF)) 17:02: 18:22 Push, [place] injection 44 :01 Q5MIN PRN, Medi ranjan 25 mcg 4 doses, Branch Starting Wed10/13/19 at 1202, Until 10/13/19 at 1322, Routine, Pain (scale 4-6), PACU ibuprofen 2019-0 Yes 400mg 400 mg, Univ ers (IBU) 10-12 Oral, TID ity of tablet 400 17:00: MEALS, [place] mg 00 First dose Medical on Fri Branch 10/13/19 at 1200, Until Discontinu ed, Routine acetaminoph 2019-0 Yes 500mg 500 mg, Un jair en 10-12 Oral, ity of (TYLENOL) 16:24: Q6HPRN, [place] [...] lactated 2020-0 2020- No 1000mL at 125 Univ ers ringers IV 10-11 08-07 mL/hr, ity of infusion 22:09: 16:23 1,000 mL, [place] as 1,000 mL 00 :46 IV Medical Infusion, Branch CONTINUOUS , Starting [place] 10/12/19 at 1715, Until Wed10/13/19 at 1123, Routine lisinopril 2020-0 Yes 10mg 10 mg, Unive rs (PRINIVIL,Z 10-11 Oral, ity of ESTRIL) 14:00: DAILY, [place] tablet 10 00 First dose Medi ranjan mg on [place] Branch 10/12/19 at 0900, Until Discontinu ed, Routine enoxaparin 2020-0 Yes 40mg 40 mg, Unive rs (LOVENOX) 10-11 Subcutaneo ity of injection 14:00: [place], [place]ILY, [place] 40 mg 00 First dose Medical on [place] Branch 10/12/19 at 0900, Until Discontinu ed, Routine Sliding 2020-0 2020- No Subcutaneo Uni vers Scale 10-11 08-07 us, Q6H, ity of Insulin - 11:00: 23:08 First dose [place] Aspart 00 :19 on [facility] Medical (NOVOLOG) + 10/12/19 at [facility] Fsbg 0600, Testing Until Discontinu ed, Routine NaCl 0.9% 2020-0 2020- No 1000mL at 100 Uni vers (NS) IV 10-11 08-06 mL/hr, IV ity of infusion 09:00: 10:38 Infusion, [place] as 1,000 mL 00 :00 ONCE, 1 Medical dose, [facility] Branch 10/12/19 at 0400, Routine nitroglycer 2020-0 [...] ed, Routine, Nausea and Vomiting (N/V) iohexol 2019-0 2020- No 120mL 120 mL, Unive rs (OMNIPAQUE 10-11-06 Intravenou it y of 350 05:00: 05:00 [...] [place] 10/12/19 at 1709, Routine Nitrofurant Nitrofurant 2020-0 2020- No Michelle 1 capsule Common oin Monohyd oin Monohyd 3-04 06-02 [place] at bedtime [facility] Macro Macro 00:00: 00:00 with food - [facility] 00 :00 [facility] Cefdinir Cefdinir 2019-0 2020- No Michelle as Com mon 05-09 03-09 [place] directed Spirit 00:00: 00:00 - [facility]00 [facility] PANTOPRAZOL Yes Take by Uni vers E SODIUM 5-05 mouth. ity of (PROTONIX 19:02: [place] ORAL) 43 Medical Branch CLOPIDOGREL Yes Take by Uni vers BISULFATE 5-05 mouth. ity of (PLAVIX 19:02: [place] ORAL) 43 Medical Branch INSULIN Yes inject Univers LISPRO 5-05 under the ity of (HUMALOG 19:02: skin. [place]) 43 Medical Branch EMPAGLIFLOZ Yes Take by Uni vers IN 5-05 mouth. ity of (JARDIANCE 19:02: [place] ORAL) 43 Medical Branch PANTOPRAZOL Yes Take by Uni vers E SODIUM 5-05 mouth. ity of (PROTONIX 19:02: [place] ORAL) 43 Medical Branch CLOPIDOGREL Yes Take by Uni vers BISULFATE 5-05 mouth. ity of (PLAVIX 19:02: [place] ORAL) 43 Medical Branch INSULIN Yes inject Univers LISPRO 5-05 under the ity of (HUMALOG 19:02: skin. [place] MS) 43 Medical Branch EMPAGLIFLOZ Yes Take by Uni vers IN 5-05 mouth. ity of (JARDIANCE 19:02: [place] ORAL) 43 Medical Branch PANTOPRAZOL Yes Take by Uni vers E SODIUM 5-05 mouth. ity of (PROTONIX 19:02: [place] ORAL) 43 Medical Branch CLOPIDOGREL Yes Take by Uni vers BISULFATE 5-05 mouth. ity of (PLAVIX 19:02: [place] ORAL) 43 Medical Branch INSULIN Yes inject Univers LISPRO 5-05 under the ity of (HUMALOG 19:02: skin. [place] MS) 43 Medical Branch EMPAGLIFLOZ Yes Take by Uni vers IN 5-05 mouth. ity of (JARDIANCE 19:02: [place] ORAL) 43 Medical Branch methocarbam Yes 500mg Take 1 Uni vers ol [...] ORAL 2-01 Entered ity of TAB 14:33: [place] 29 Medical Branch METFORMIN 2018-0 Yes 500mg Take 500 Uni vers HCL 2-01 mg by ity of (METFORMIN 14:33: mouth 2 [place] 29 (two) Medical times Branch daily. LISINOPRIL 2018 Yes None Univers 10 MG ORAL 2-01 Entered ity of TAB 14:33: [address] METFORMIN Yes 500mg Take 500 Uni vers HCL 2-01 mg by ity of (METFORMIN 14:33: mouth 2 [place] 29 (two) Medical times Branch daily. LISINOPRIL 2017-0 Yes None Univers 10 MG ORAL 2-01 Entered ity of TAB 14:33: [address] METFORMIN Yes 500mg Take 500 Uni vers HCL 2-01 mg by ity of (METFORMIN 14:33: mouth 2 [place]AL) 29 (two) Medical times Branch daily. Lipitor Lipitor No Lipitor Basaglar Basaglar No Basaglar KwikPen KwikPen KwikPen Iron 28 MG Iron 28 MG No 1{table QD Iron 28 MG t} Magnesium Magnesium No 1{table QD Magnesium 250 MG 250 MG t_with_ 250 MG a_meal} Lisinopril Lisinopril No 1{table QD Lisinopril 20 MG 20 MG t} 20 MG Iron 28 MG Iron 28 MG No 1{table QD Iron 28 MG t} amLODIPine amLODIPine No 1{table QD amLODIPine Besylate Besylate t} Besylate 2.5 MG 2.5 MG 2.5 MG Metoprolol Metoprolol No 1{table BID Metoprolol Tartrate Tartrate t_with_ Tartrate 100 MG 100 MG food} 100 MG metFORMIN metFORMIN No 1{table QD metFORMIN HCl 500 MG HCl 500 MG t_with_ HCl 500 MG a_meal} Garlic 1000 Garlic 1000 No Garlic MG MG 1000 MG Rosuvastati Rosuvastati No 1{table QD Rosuvastat n Calcium n Calcium t} in Calcium 10 MG 10 MG 10 MG Aspirin 81 Aspirin 81 No 1{table QD Aspirin 81 MG MG t} MG Lisinopril Lisinopril No 1{table QD Lisinopril 20 MG 20 MG t} 20 MG Magnesium Magnesium No 1{table QD Magnesium 250 MG 250 MG t_with_ 250 MG a_meal} Rosuvastati Rosuvastati No 1{table QD Rosuvastat n Calcium n Calcium t} in Calcium 10 MG 10 MG 10 MG Iron 28 MG Iron 28 MG No 1{table QD Iron 28 MG t} amLODIPine amLODIPine No 1{table QD amLODIPine Besylate Besylate t} Besylate 2.5 MG 2.5 MG 2.5 MG Garlic 1000 Garlic 1000 No Garlic MG MG 1000 MG Magnesium Magnesium No 1{table QD Magnesium 250 MG 250 MG t_with_ 250 MG a_meal} Lisinopril Lisinopril No 1{table QD Lisinopril 20 MG 20 MG t} 20 MG Metoprolol Metoprolol No 1{table BID Metoprolol Tartrate Tartrate t_with_ Tartrate 100 MG 100 MG food} 100 MG Aspirin 81 Aspirin 81 No 1{table QD Aspirin 81 MG MG t} MG metFORMIN metFORMIN No 1{table QD metFORMIN HCl 500 MG HCl 500 MG t_with_ HCl 500 MG a_meal} Rosuvastati Rosuvastati No 1{table QD Rosuvastat n Calcium n Calcium t} in Calcium 10 MG 10 MG 10 MG Iron 28 MG Iron 28 MG No 1{table QD Iron 28 MG t} amLODIPine amLODIPine No 1{table QD amLODIPine Besylate Besylate t} Besylate 2.5 MG 2.5 MG 2.5 MG Garlic 1000 Garlic 1000 No Garlic MG MG 1000 MG Magnesium Magnesium No 1{table QD Magnesium 250 MG 250 MG t_with_ 250 MG a_meal} Lisinopril Lisinopril No 1{table QD Lisinopril 20 MG 20 MG t} 20 MG Metoprolol Metoprolol No 1{table BID Metoprolol Tartrate Tartrate t_with_ Tartrate 100 MG 100 MG food} 100 MG Aspirin 81 Aspirin 81 No 1{table QD Aspirin 81 MG MG t} MG metFORMIN metFORMIN No 1{table QD metFORMIN HCl 500 MG HCl 500 MG t_with_ HCl 500 MG a_meal} Aspirin Aspirin Yes Michelle 1 tablet Comm on [place] [facility] Rosuvastati Rosuvastati Yes Michelle 1 tablet Common n Calcium n Calcium [place] S pirit [facility] Metformin Metformin Yes Michelle 1 tablet Common HCl HCl [place] with a Spirit meal [facility] Magnesium Magnesium Yes Michelle 1 tablet Common [place] with a Spirit meal - [facility] Iron Iron Yes Michelle 1 tablet Common [place] [facility] Amlodipine Amlodipine Yes Michelle 1 tablet Common Besylate Besylate [place] Spi rit [facility] Lisinopril Lisinopril Yes Michelle 1 tablet Common [place] [facility] Metoprolol Metoprolol Yes Michelle 1 tablet Common Tartrate Tartrate [place] with food [facility] Garlic Garlic Yes Michelle as Common [place] directed [facility] Aspirin 81 Aspirin 81 No 1{table QD Aspirin 81 MG MG t} MG Garlic 1000 Garlic 1000 No Garlic MG MG 1000 MG Vitamin C Vitamin C No Vitamin C Vitamin D3 Vitamin D3 No Vitamin D3 amLODIPine amLODIPine No 1{table QD amLODIPine Besylate Besylate t} Besylate 2.5 MG 2.5 MG 2.5 MG metFORMIN metFORMIN No 1{table QD metFORMIN HCl 500 MG HCl 500 MG t_with_ HCl 500 MG a_meal} Zinc Zinc No Zinc Pantoprazol Pantoprazol No Pantoprazo e Sodium e Sodium le Sodium Metoprolol Metoprolol No 1{table BID Metoprolol Tartrate Tartrate t_with_ Tartrate 100 MG 100 MG food} 100 MG Lipitor Lipitor No Lipitor Basaglar Basaglar No Basaglar KwikPen KwikPen KwikPen Iron 28 MG Iron 28 MG No 1{table QD Iron 28 MG t} Magnesium Magnesium No 1{table QD Magnesium 250 MG 250 MG t_with_ 250 MG a_meal} Lisinopril Lisinopril No 1{table QD Lisinopril 20 MG 20 MG t} 20 MG Basaglar Basaglar No Basaglar KwikPen KwikPen KwikPen amLODIPine amLODIPine No 1{table QD amLODIPine Besylate Besylate t} Besylate 2.5 MG 2.5 MG 2.5 MG Lisinopril Lisinopril No 1{table QD Lisinopril 20 MG 20 MG t} 20 MG metFORMIN metFORMIN No 1{table QD metFORMIN HCl 500 MG HCl 500 MG t_with_ HCl 500 MG a_meal} Metoprolol Metoprolol No 1{table BID Metoprolol Tartrate Tartrate t_with_ Tartrate 100 MG 100 MG food} 100 MG Garlic 1000 Garlic 1000 No Garlic MG MG 1000 MG Vitamin C Vitamin C No Vitamin C Vitamin D3 Vitamin D3 No Vitamin D3 Aspirin 81 Aspirin 81 No 1{table QD Aspirin 81 MG MG t} MG Lipitor Lipitor No Lipitor Iron 28 MG Iron 28 MG No 1{table QD Iron 28 MG t} Pantoprazol Pantoprazol No Pantoprazo e Sodium e Sodium le Sodium Magnesium Magnesium No 1{table QD Magnesium 250 MG 250 MG t_with_ 250 MG a_meal} Zinc Zinc No Zinc Aspirin 81 Aspirin 81 No 1{table QD Aspirin 81 MG MG t} MG Garlic 1000 Garlic 1000 No Garlic MG MG 1000 MG Vitamin C Vitamin C No Vitamin C Vitamin D3 Vitamin D3 No Vitamin D3 amLODIPine amLODIPine No 1{table QD amLODIPine Besylate Besylate t} Besylate 2.5 MG 2.5 MG 2.5 MG metFORMIN metFORMIN No 1{table QD metFORMIN HCl 500 MG HCl 500 MG t_with_ HCl 500 MG a_meal} Zinc Zinc No Zinc Pantoprazol Pantoprazol No Pantoprazo e Sodium e Sodium le Sodium Metoprolol Metoprolol No 1{table BID Metoprolol Tartrate Tartrate t_with_ Tartrate 100 MG 100 MG food} 100 MG Immunizations Ordered Immunization Filled Immunization Date Status Commen ts Source Name Name Influenza Virus 2021-12-02 Completed Kasia Shepherd ybold - Vaccine, 00:00:00 External Quadrivalent, High Dose, Age 65 And Up Influenza Virus 2021-12-02 Completed Kasia Shepherd ybold - Vaccine, 00:00:00 External Quadrivalent, High Dose, Age 65 And Up Influenza Virus 2021-12-02 Completed Kasia Shepherd ybold - Vaccine, 00:00:00 External Quadrivalent, High Dose, Age 65 And Up Influenza Virus 2021-12-02 Completed Kasia Shepherd ybold - Vaccine, 00:00:00 External Quadrivalent, High Dose, Age 65 And Up Covid-19 Vaccine 2021-01-17 Completed Kasia mcwilliams ([employer]), Mrna-lnp, 00:00:00 [place] [facility], Pf, 30mcg/0.3ml,IM Covid-19 Vaccine 2021-01-17 Completed Kasia mcwilliams ([employer]), Mrna-lnp, 00:00:00 [place] [facility], Pf, 30mcg/0.3ml,IM Covid-19 Vaccine 2021-01-17 Completed Kasia mcwilliams ([employer]), Mrna-lnp, 00:00:00 [place] [facility], Pf, 30mcg/0.3ml,IM Covid-19 Vaccine 2021-01-17 Completed Kasia S eybold ([facility]), Mrna-lnp, 00:00:00 [place] [facility], Pf, 30mcg/0.3ml,IM Covid-19 Vaccine 2021-01-17 Completed Kasia S eybold ([facility]), Mrna-lnp, 00:00:00 [place] [facility], Pf, 30mcg/0.3ml,IM Covid-19 Vaccine 2021-01-17 Completed Kasia S eybold ([facility]), Mrna-lnp, 00:00:00 [place] [employer], Pf, 30mcg/0.3ml,IM Covid-19 Vaccine 2021-01-17 Completed Kasia S eybold ([facility]), Mrna-lnp, 00:00:00 [place] [facility], Pf, 30mcg/0.3ml,IM Covid-19 Vaccine 2021-01-17 Completed Kasia S eybold - ([facility]), Mrna-lnp, 00:00:00 Exter nal [place] [employer], Pf, 30mcg/0.3ml,IM Covid-19 Vaccine 2021-01-17 Completed Kasia Hercules eybold - ([employer]), Mrna-lnp, 00:00:00 Exter nal [place] [employer], Pf, 30mcg/0.3ml,IM Covid-19 Vaccine 2021-01-17 Completed Kasia S eybold - ([employer]), Mrna-lnp, 00:00:00 Exter nal [place] [employer], Pf, 30mcg/0.3ml,IM Covid-19 Vaccine 2021-01-17 Completed Kasia S eybold - ([employer]), Mrna-lnp, 00:00:00 Exter nal [place] [employer], Pf, 30mcg/0.3ml,IM Influenza Virus 2020-11-28 [...] Influenza Virus 2020-11-28 Completed Kasia Se ybold - Vaccine, 00:00:00 External Quadrivalent, High Dose, Age 65 And Up Influenza Virus 2020-11-28 Completed Kasia Se ybold - Vaccine, 00:00:00 External Quadrivalent, High Dose, Age 65 And Up Influenza Virus 2020-11-28 Completed Kasia Se ybold - Vaccine, 00:00:00 External Quadrivalent, High Dose, Age 65 And Up Influenza Virus 2020-11-28 Completed Kasia Se ybold - Vaccine, 00:00:00 External Quadrivalent, High Dose, Age 65 And Up Covid-19 Vaccine 2020-07-16 Completed Kasia S eybold ([employer]a), Mrna-lnp, 00:00:00 [place] [employer], Pf, 100 Mcg/0.5ml,IM Covid-19 Vaccine 2020-07-16 Completed Kasia S eybold (Moderna), Mrna-lnp, 00:00:00 [place] [employer], Pf, 100 Mcg/0.5ml,IM Covid-19 Vaccine 2020-07-16 Completed Kasia S eybold (Moderna), Mrna-lnp, 00:00:00 [place] Protein, Pf, 100 Mcg/0.5ml,IM Covid-19 Vaccine 2020-07-16 Completed Kasia rodriguezld (Moderna), Mrna-lnp, 00:00:00 [place] Protein, Pf, 100 Mcg/0.5ml,IM Covid-19 Vaccine 2020-07-16 Completed Kasia rodriguezld (Moderna), Mrna-lnp, 00:00:00 [place] Protein, Pf, 100 Mcg/0.5ml,IM Covid-19 Vaccine 2020-07-16 Completed Kasia mcwilliams Moderna (Spikevax), 00:00:00 Mrna-lnp, [place] [employer], Pf Covid-19 Vaccine 2020-07-16 Completed Kasia mcwilliams Moderna (Spikevax), 00:00:00 Mrna-lnp, [place] [employer], Pf Covid-19 Vaccine 2020-07-16 Completed Kasia mcwilliams Moderna (Spikevax), 00:00:00 Mrna-lnp, [place] [employer], Pf Covid-19 Vaccine 2020-07-16 Completed Kasia mcwilliams Moderna (Spikevax), 00:00:00 Mrna-lnp, [place] [employer], Pf Covid-19 Vaccine 2020-07-16 Completed Kasia mcwilliams Moderna (Spikevax), 00:00:00 Mrna-lnp, [place] [employer], Pf Covid-19 Vaccine 2020-07-16 Completed Kasia mcwilliams - Moderna (Spikevax), 00:00:00 Exter nal Mrna-lnp, [place] [employer], Pf Covid-19 Vaccine 2020-07-16 Completed Kasia mcwilliams - Moderna (Spikevax), 00:00:00 Exter nal Mrna-lnp, [place] [employer], Pf Covid-19 Vaccine 2020-07-16 Completed Kasia mcwillimas - Moderna (Spikevax), 00:00:00 Exter nal Mrna-lnp, [place] [employer], Pf Covid-19 Vaccine 2020-07-16 Completed Kasia Hercules eyisabel - Moderna (Spikevax), 00:00:00 Exter nal Mrna-lnp, [place] [employer], Pf Covid-19 Vaccine 2020-06-14 Completed Kasia cuellobold (Moderna), Mrna-lnp, 00:00:00 [place] [employer], Pf, 100 Mcg/0.5ml,IM Covid-19 Vaccine 2020-06-14 Completed Kasia Hercules eybold (Moderna), Mrna-lnp, 00:00:00 [place] [employer], Pf, 100 Mcg/0.5ml,IM Covid-19 Vaccine 2020-06-14 Completed Kasia Hercules eybold (Moderna), Mrna-lnp, 00:00:00 [place] [employer], Pf, 100 Mcg/0.5ml,IM Covid-19 Vaccine 2020-06-14 Completed Kasia Hercules eybold (Moderna), Mrna-lnp, 00:00:00 [place] [employer], Pf, 100 Mcg/0.5ml,IM Covid-19 Vaccine 2020-06-14 Completed Kasia cuellobold (Moderna), Mrna-lnp, 00:00:00 [place] [employer], Pf, 100 Mcg/0.5ml,IM Covid-19 Vaccine 2020-06-14 Completed Kasia Hercules eybold Moderna (Spikevax), 00:00:00 Mrna-lnp, [place] [employer], Pf Covid-19 Vaccine 2020-06-14 Completed Kasia cuellobold Moderna (Spikevax), 00:00:00 Mrna-lnp, [place] [employer], Pf Covid-19 Vaccine 2020-06-14 Completed Kasia cuellobold Moderna (Spikevax), 00:00:00 Mrna-lnp, [place] [employer], Pf Covid-19 Vaccine 2020-06-14 Completed Kasia Hercules eybold Moderna (Spikevax), 00:00:00 Mrna-lnp, [place] [employer], Pf Covid-19 Vaccine 2020-06-14 Completed Kasia cuellobold Moderna (Spikevax), 00:00:00 Mrna-lnp, [place] [employer], Pf Covid-19 Vaccine 2020-06-14 Completed Kasia S eybold - Moderna (Spikevax), 00:00:00 Exter nal Mrna-lnp, [place] [employer], Pf Covid-19 Vaccine 2020-06-14 Completed Kasia S eybold - Moderna (Spikevax), 00:00:00 Exter nal Mrna-lnp, [place] [employer], Pf Covid-19 Vaccine 2020-06-14 Completed Kasia Hercules eybold - Moderna (Spikevax), 00:00:00 Exter nal Mrna-lnp, [place] [employer], Pf Covid-19 Vaccine 2020-06-14 Completed Kasia S eybold - Moderna (Spikevax), 00:00:00 Exter nal Mrna-lnp, [place] [employer], Pf Influenza Virus 2019-12-22 Completed Kasia Se ybold [...] Influenza Virus 2019-12-22 Completed Kasia Se ybold - Vaccine, age 6 months 00:00:00 Ext ernal and up Influenza Virus 2019-12-22 Completed Kasia Se ybold - Vaccine, age 6 months 00:00:00 Ext ernal and up Influenza Virus 2019-12-22 Completed Kasia Se ybold - Vaccine, age 6 months 00:00:00 Ext ernal and up Influenza Virus 2019-12-22 Completed Kasia Se ybold - Vaccine, age 6 months 00:00:00 Ext ernal and up Shingles IM 2019-03-05 Completed Kasia [...] Shingles IM 2019-03-05 Completed Kasia Seybol d - (Shingrix) 00:00:00 External Shingles IM 2019-03-05 Completed Kasia Seybol d - (Shingrix) 00:00:00 External Shingles IM 2019-03-05 Completed Kasia Seybol d - (Shingrix) 00:00:00 External Shingles IM 2019-03-05 Completed Kasia Seybol d - (Shingrix) 00:00:00 External Pneumococcal Vaccine, 2018-04-27 Completed Killian sey Seybold [...] Pneumococcal Vaccine, 2018-04-27 Completed Killian sey Seybold - Polysaccharide 00:00:00 External Pneumococcal Vaccine, 2018-04-27 Completed Killian sey Seybold - Polysaccharide 00:00:00 External Pneumococcal Vaccine, 2018-04-27 Completed Killian sey Seybold - Polysaccharide 00:00:00 External Pneumococcal Vaccine, 2018-04-27 Completed Killian sey Seybold - Polysaccharide 00:00:00 External Shingles IM 2018-03-04 Completed Kasia Seybol d [...] Shingles IM 2018-03-04 Completed Kasia Seybol d - (Shingrix) 00:00:00 External Shingles IM 2018-03-04 Completed Kasia Seybol d - (Shingrix) 00:00:00 External Shingles IM 2018-03-04 Completed Kasia Seybol d - (Shingrix) 00:00:00 External Shingles IM 2018-03-04 Completed Kasia Seybol d - (Shingrix) 00:00:00 External Influenza Virus 2017-12-08 Completed Kasia Se ybold [...] Influenza Virus 2017-12-08 Completed Kasia Se ybold - Vaccine, age 6 months 00:00:00 Ext ernal and up Influenza Virus 2017-12-08 Completed Kasia Se ybold - Vaccine, age 6 months 00:00:00 Ext ernal and up Influenza Virus 2017-12-08 Completed Kasia Se ybold - Vaccine, age 6 months 00:00:00 Ext ernal and up Influenza Virus 2017-12-08 Completed Kasia Se ybold - Vaccine, age 6 months 00:00:00 Ext ernal and up Influenza Virus 2016-11-27 Completed Kasia [...] Influenza Virus 2016-11-27 Completed Kasia Se ybold - Vaccine, No Preserv, 00:00:00 Exte rnal age 6 months and up Influenza Virus 2016-11-27 Completed Kasia Se ybold - Vaccine, age 6 months 00:00:00 Ext ernal and up Influenza Virus 2016-11-27 Completed Kasia Se ybold - Vaccine, No Preserv, 00:00:00 Exte rnal age 6 months and up Influenza Virus 2016-11-27 Completed Kasia Se ybold - Vaccine, age 6 months 00:00:00 Ext ernal and up Influenza Virus 2016-11-27 Completed Kasia Se ybold - Vaccine, No Preserv, 00:00:00 Exte rnal age 6 months and up Influenza Virus 2016-11-27 Completed Kasia Se ybold - Vaccine, age 6 months 00:00:00 Ext ernal and up Influenza Virus 2016-11-27 Completed Kasia Se ybold - Vaccine, No Preserv, 00:00:00 Exte rnal age 6 months and up Influenza Virus 2016-11-27 Completed Kasia Se ybold - Vaccine, age 6 months 00:00:00 Ext ernal and up Pneumococcal Vaccine, 2016-09-17 Completed Killian [...] Pneumococcal Vaccine, 2016-09-17 Completed Killian sey Seybold - Conjugate 13 00:00:00 External Pneumococcal Vaccine, 2016-09-17 Completed Killian sey Seybold - Conjugate 13 00:00:00 External Pneumococcal Vaccine, 2016-09-17 Completed Killian sey Seybold - Conjugate 13 00:00:00 External Pneumococcal Vaccine, 2016-09-17 Completed Killian sey Seybold - Conjugate 13 00:00:00 External Shingles SQ 2015-03-20 Completed Kasia Seybol d [...] Shingles SQ 2015-03-20 Completed Kasia Seybol d - (Zostavax) 00:00:00 External Shingles SQ 2015-03-20 Completed Kasia Seybol d - (Zostavax) 00:00:00 External Shingles SQ 2015-03-20 Completed Kasia Seybol d - (Zostavax) 00:00:00 External Shingles SQ 2015-03-20 Completed Kaisa Seybol d - (Zostavax) 00:00:00 External Td- Tetanus & 2014-11-23 Completed Kasia Seyb [...] Tetanus & 2014-11-23 Completed Kasia Seyb old - Diphtheria Vaccine 00:00:00 [employer] al (age 7+ years) Td- Tetanus & 2014-11-23 Completed Kasia Seyb old - Diphtheria Vaccine 00:00:00 [employer] (age 7+ years) Td- Tetanus & 2014-11-23 Completed Kasia Seyb old - Diphtheria Vaccine 00:00:00 [employer] (age 7+ years) Td- Tetanus & 2014-11-23 Completed Kasia Seyb old - Diphtheria Vaccine 00:00:00 [employer] (age 7+ years) Td,absorbed PF 2008-03-08 Completed [...] Td,absorbed PF 2008-03-08 Completed Kasia Sey bold - KSC,Admin,unspecified 00:00:00 Ext ernal Td,absorbed PF 2008-03-08 Completed Kasia Sey bold - KSC,Admin,unspecified 00:00:00 Ext ernal Td,absorbed PF 2008-03-08 Completed Kasia Sey bold - KSC,Admin,unspecified 00:00:00 Ext ernal Td- Tetanus & 2008-03-08 Completed Kasia Seyb old - Diphtheria Vaccine 00:00:00 [employer] (age 7+ years) Td,absorbed PF 2008-03-08 Completed Kasia Sey bold - KSC,Admin,unspecified 00:00:00 Ext ernal Td- Tetanus & 2008-03-08 Completed Kasia Ha old - Diphtheria Vaccine 00:00:00 [employer] (age 7+ years) Td 2008-03-08 Completed [facility] 00:00[facility]00 [facility] Td 2008-03-08 Completed [facility] 00:00:00 [facility] Td 2008-03-08 Completed [facility] 00:00:00 [facility] Td 2008-03-08 Completed [facility] 00:00:00 [facility] Td 2008-03-08 Completed [facility] 00:00:00 [facility] Td 2008-03-08 Completed [facility] 00:00:00 [facility] Td 2008-03-08 Completed [facility] 00:00:00 [facility] Td 2008-03-08 Completed [facility] 00:00:00 [facility] Td 2008-03-08 Completed [facility] 00:00:00 [facility] Td 2008-03-08 Completed [facility] 00:00:00 [facility] Td 2008-03-08 Completed [facility] 00:00:00 [facility] Td 2008-03-08 Completed [facility] 00:00:00 [facility] Td 2008-03-08 Completed [facility] 00:00:00 [facility] Td 2008-03-08 Completed [facility] 00:00:00 [facility] Td 2008-03-08 Completed [facility] 00:00:00 [facility] Td 2008-03-08 Completed [facility] 00:00:00 [facility] Pneumococcal Vaccine, 2007-11-04 Completed Killian sey [...] Pneumococcal Vaccine, 2007-11-04 Completed Killian sey Seybold - Polysaccharide 00:00:00 External Pneumococcal Vaccine, 2007-11-04 Completed Killian sey Seybold - Polysaccharide 00:00:00 External Pneumococcal Vaccine, 2007-11-04 Completed Killian sey Seybold - Polysaccharide 00:00:00 External Pneumococcal Vaccine, 2007-11-04 Completed Killian sey Seybold - Polysaccharide 00:00:00 External Pneumococcal 2007-11-04 Completed [facility] f Polysaccharide, [...] ical PPSV23 (PNEUMOVAX) Branch Pneumococcal 2007-11-04 Completed [place] o f Polysaccharide, 00:00:00 [place] [facility] PPSV23 (PNEUMOVAX) [facility] Pneumococcal 2007-11-04 Completed [place] o f Polysaccharide, 00:00:00 [place] [facility] PPSV23 (PNEUMOVAX) Branch Vital Signs Vital Name Observation Time Observation Value Comments Source Systolic blood 2022-04-13 20:53:00 125 mm[Hg] Kasia Seybold - pressure External Diastolic blood 2022-04-13 20:53:00 66 mm[Hg] Killianse durand Seybold - pressure External Heart rate 2022-04-13 20:53:00 66 /min Kasia cuellobold - External Body temperature 2022-04-13 20:53:00 36.44 Jada Nereyda cuello Seybold - External Respiratory rate 2022-04-13 20:53:00 16 /min Nereyda cuello Seybold - External Body height 2022-04-13 20:53:00 157.5 cm Kasia cuellobold - External Body weight 2022-04-13 20:53:00 63.05 kg Kasia cuellobold - External BMI 2022-04-13 20:53:00 25.42 kg/m2 Kaisa cuellobold - External height 2022-04-01 16:15:00 62.0 [in_i] [facility] weight 2022-04-01 16:15:00 137.6 [lb_av] Common [facility] bmi 2022-04-01 16:15:00 25.16 kg/m2 [facility] oximetry 2022-04-01 16:15:00 96 % [facility] respiratory rate 2022-04-01 16:15:00 18 /min Comm on [facility] blood pressure 2022-04-01 16:15:00 169 mm[Hg] Common [facility] systolic [facility] blood pressure 2022-04-01 16:15:00 76 mm[Hg] [facility] diastolic [facility] Systolic blood 2022-03-13 22:00:00 138 mm[Hg] Kasia Seybold - pressure External Diastolic blood 2022-03-13 22:00:00 56 mm[Hg] Kelse y Seybold - pressure External Heart rate 2022-03-13 22:00:00 87 /min Kasia Hercules eybold - External Body temperature 2022-03-13 22:00:00 36 Jada Nereyda ey Seybold - External Respiratory rate 2022-03-13 22:00:00 14 /min Nereyda ey Seybold - External Body height 2022-03-13 22:00:00 157.5 cm Kasia Hercules eybold - External Body weight 2022-03-13 22:00:00 60.782 kg Kasia Hercules eybold - External BMI 2022-03-13 22:00:00 24.51 kg/m2 Kasia Hercules eybold - External Systolic blood 2022-01-27 19:11:00 146 mm[Hg] Kasia Seybold - pressure External Diastolic blood 2022-01-27 19:11:00 64 mm[Hg] Kelse y Seybold - pressure External Heart rate 2022-01-27 19:11:00 70 /min Kasia Hercules eybold - External Body temperature 2022-01-27 19:11:00 36.44 Jada Nereyda ey Seybold - External Respiratory rate 2022-01-27 19:11:00 18 /min Nereyda ey Seybold - External Body height 2022-01-27 19:11:00 157.5 cm Kasia Hercules eybold - External Body weight 2022-01-27 19:11:00 61.689 kg Kasia Hercules eybold - External BMI 2022-01-27 19:11:00 24.87 kg/m2 Kasia Hercules eybold - External height 2021-12-10 08:15:00 62.0 [in_i] Common [facility] - [facility] weight 2021-12-10 08:15:00 134.2 [lb_av] [facility] temperature 2021-12-10 08:15:00 97.2 [degF] Common [facility] - [facility] bmi 2021-12-10 08:15:00 24.54 kg/m2 Common [facility] - [facility] oximetry 2021-12-10 08:15:00 97 % [facility] - [facility] respiratory rate 2021-12-10 08:15:00 18 /min [facility] blood pressure 2021-12-10 08:15:00 141 mm[Hg] [facility] - systolic [facility] blood pressure 2021-12-10 08:15:00 69 mm[Hg] Common [facility] - diastolic [facility] HEIGHT 2021-12-03 11:21:00 157.5 cm WEIGHT 2021-12-03 11:21:00 61.236 kg HEIGHT 2021-12-03 11:21:00 157.5 cm WEIGHT 2021-12-03 11:21:00 61.236 kg Systolic blood 2021-12-02 18:24:00 130 mm[Hg] Kasia Shepherdybold - pressure External Diastolic blood 2021-12-02 18:24:00 55 mm[Hg] Lovely durand Seybold - pressure External Heart rate 2021-12-02 18:24:00 66 /min Kasia mcwilliams - External Body temperature 2021-12-02 18:24:00 35.72 Jada Nereyda cuello Seybold - External Respiratory rate 2021-12-02 18:24:00 14 /min Nereyda cuello Seybold - External Body height 2021-12-02 18:24:00 157.5 cm Kasia cuelloboarron - External Body weight 2021-12-02 18:24:00 61.689 kg Kasia Delisa cuatebold - External BMI 2021-12-02 18:24:00 24.87 kg/m2 Kasia mcwilliams - External Oxygen saturation in 2021-12-02 18:24:00 99 /min Kasia Jones - Arterial blood by External Pulse oximetry Systolic blood 2021-09-27 23:37:00 125 mm[Hg] Univer sity of pressure [facility] Diastolic blood 2021-09-27 23:37:00 63 mm[Hg] Unive rsity of [facility] Heart rate 2021-09-27 23:37:00 79 /min [facility]i [facility] of [facility] Body temperature 2021-09-27 23:37:00 37.22 Jada Univ ersity of [facility] Respiratory rate 2021-09-27 23:37:00 16 /min Univ ersity of [facility] Body height 2021-09-27 23:37:00 157.5 cm Universi ty of [facility] Body weight 2021-09-27 23:37:00 62.596 kg Universi ty of [facility] BMI 2021-09-27 23:37:00 25.24 kg/m2 Universi ty [facility] Oxygen saturation in 2021-09-27 23:37:00 96 /min [facility] blood by [facility] Pulse oximetry Branch Systolic blood 2021-08-11 19:10:00 104 mm[Hg] Kasia Seybold pressure Diastolic blood 2021-08-11 19:10:00 42 mm[Hg] Kelse y Seybold pressure Heart rate 2021-08-11 19:10:00 90 /min Kasia cuelloboarron Body temperature 2021-08-11 19:10:00 36.17 Jada Nereyda cuello Seybold Respiratory rate 2021-08-11 19:10:00 14 /min Nereyda cuello Seybold Body height 2021-08-11 19:10:00 157.5 cm Kasia cuelloboarron Body weight 2021-08-11 19:10:00 61.689 kg Kasia cuellobold BMI 2021-08-11 19:10:00 24.87 kg/m2 Kasia cuellobold height 2021-08-07 08:15:00 62.0 [in_i] Common S pirit [facility] weight 2021-08-07 08:15:00 134.8 [lb_av] [facility] temperature 2021-08-07 08:15:00 98 [degF] Common S pirit [facility] bmi 2021-08-07 08:15:00 24.65 kg/m2 [facility] oximetry 2021-08-07 08:15:00 98 % Common S pirit - [facility] respiratory rate 2021-08-07 08:15:00 16 /min Comm on [facility] - [facility] blood pressure 2021-08-07 08:15:00 186 mm[Hg] [facility] - systolic [facility] blood pressure 2021-08-07 08:15:00 79 mm[Hg] [facility] diastolic [facility] Systolic blood 2021-07-21 15:57:00 147 mm[Hg] Kasia Seybold pressure Diastolic blood 2021-07-21 15:57:00 70 mm[Hg] Kelse y Seybold pressure Heart rate 2021-07-21 15:57:00 73 /min Kasia S eybold Body temperature 2021-07-21 15:57:00 36.33 Jada Nereyda ey Seybold Respiratory rate 2021-07-21 15:57:00 18 /min Nereyda ey Seybold Body height 2021-07-21 15:57:00 157.5 cm Kasia S eybold Body weight 2021-07-21 15:57:00 59.421 kg Kasia S eybold BMI 2021-07-21 15:57:00 23.96 kg/m2 Kasia S eybold Systolic blood 2021-06-19 14:47:00 137 mm[Hg] Kasia Seybold pressure Diastolic blood 2021-06-19 14:47:00 68 mm[Hg] Kelse y Seybold pressure Heart rate 2021-06-19 14:47:00 88 /min Kasia S eybold Body temperature 2021-06-19 14:47:00 36.94 Jada Nereyda ey Seybold Respiratory rate 2021-06-19 14:47:00 14 /min Nereyda ey Seybold Body height 2021-06-19 14:47:00 157.5 cm Kasia S eybold Body weight 2021-06-19 14:47:00 60.419 kg Kasia S eybold BMI 2021-06-19 14:47:00 24.36 kg/m2 Kasia S eybold Systolic blood 2021-05-22 14:56:00 152 mm[Hg] Kasia Seybold pressure Diastolic blood 2021-05-22 14:56:00 58 mm[Hg] Kelse y Seybold pressure Heart rate 2021-05-22 14:56:00 74 /min Kasia Hercules eybold Body temperature 2021-05-22 14:56:00 36.67 Jada Nereyda ey Seybold Respiratory rate 2021-05-22 14:56:00 16 /min Nereyda ey Seybold Body height 2021-05-22 14:56:00 157.5 cm Kasia cuelloboarron Body weight 2021-05-22 14:56:00 61.689 kg Kasia cuellobold BMI 2021-05-22 14:56:00 24.87 kg/m2 Kasia Hercules eybold height 2021-05-15 14:00:00 62.0 [in_i] [facility] weight 2021-05-15 14:00:00 135.4 [lb_av] [facility] temperature 2021-05-15 14:00:00 98.6 [degF] [facility] bmi 2021-05-15 14:00:00 24.76 kg/m2 [facility] oximetry 2021-05-15 14:00:00 99 % [facility] respiratory rate 2021-05-15 14:00:00 16 /min Comm on [facility] blood pressure 2021-05-15 14:00:00 167 mm[Hg] Common [facility] - systolic [facility] blood pressure 2021-05-15 14:00:00 67 mm[Hg] Common [facility] - diastolic [facility] Systolic blood 2021-04-18 15:05:00 132 mm[Hg] Kasia Seybold pressure Diastolic blood 2021-04-18 15:05:00 67 mm[Hg] Kelse y Seybold pressure Heart rate 2021-04-18 15:05:00 84 /min Kasia Hercules eybold Body temperature 2021-04-18 15:05:00 37.28 Jada Nereyda ey Seybold Respiratory rate 2021-04-18 15:05:00 14 /min Nereyda ey Seybold Body height 2021-04-18 15:05:00 157.5 cm Kasia S eybold Body weight 2021-04-18 15:05:00 60.963 kg Kasia S eybold BMI 2021-04-18 15:05:00 24.58 kg/m2 Kasia S eybold Systolic blood 2021-02-26 14:32:00 145 mm[Hg] Kasia Seybold pressure Diastolic blood 2021-02-26 14:32:00 72 mm[Hg] Kelse y Seybold pressure Heart rate 2021-02-26 14:32:00 81 /min Kasia S eybold Body temperature 2021-02-26 14:32:00 36.44 Jada Nereyda ey Seybold Respiratory rate 2021-02-26 14:32:00 14 /min Neredya ey Seybold Body height 2021-02-26 14:32:00 157.5 cm Kasia S eybold Body weight 2021-02-26 14:32:00 62.143 kg Kasia S eybold BMI 2021-02-26 14:32:00 25.06 kg/m2 Kasia S eybold Systolic blood 2021-01-13 20:25:00 116 mm[Hg] Kasia Seybold pressure Diastolic blood 2021-01-13 20:25:00 44 mm[Hg] Kelse y Seybold pressure Heart rate 2021-01-13 20:25:00 83 /min Kasia S eybold Body temperature 2021-01-13 20:25:00 36.56 Jada [...] Body height 2020-12-17 17:41:00 157.5 cm Kasia Hercules eybold Body weight 2020-12-17 17:41:00 60.328 kg Kasia Hercules eybold BMI 2020-12-17 17:41:00 24.33 kg/m2 Kasia Hercules eybold Oxygen saturation in 2020-12-17 17:41:00 98 /min Kasia Jones Arterial blood by Pulse oximetry Systolic blood 2020-11-28 13:09:00 142 mm[Hg] Kasia Seybold pressure Diastolic blood 2020-11-28 13:09:00 78 mm[Hg] Kelse y Seybold pressure Heart rate 2020-11-28 13:09:00 74 /min Kasia S eybold Body temperature 2020-11-28 13:09:00 36.61 Jada Nereyda ey Seybold Respiratory rate 2020-11-28 13:09:00 14 /min Nereyda ey Seybold Body height 2020-11-28 13:09:00 157.5 cm Kasia S eybold Body weight 2020-11-28 13:09:00 59.875 kg Kasia S eybold BMI 2020-11-28 13:09:00 24.14 kg/m2 Kasia cuelloboarron Systolic blood 2020-01-18 23:21:00 185 mm[Hg] Univer sity of pressure [facility] Diastolic blood 2020-01-18 23:21:00 99 mm[Hg] Unive rsity of pressure [facility] Heart rate 2020-01-18 23:21:00 95 /min Universi ty of [facility] Body temperature 2020-01-18 23:21:00 36.67 Jada Univ ersity of [facility] Respiratory rate 2020-01-18 23:21:00 18 /min Univ ersity of [facility] Oxygen saturation in 2020-01-18 23:21:00 97 /min University Arterial blood by [facility] Pulse oximetry Branch Body weight 2020-01-18 23:17:00 63.504 kg Universi ty of [facility] BMI 2020-01-18 23:17:00 26.45 kg/m2 Universi ty of [facility] Systolic blood 2019-10-31 20:33:00 170 mm[Hg] Univer sity of pressure [facility] Diastolic blood 2019-10-31 20:33:00 73 mm[Hg] Unive rsity of pressure [facility] Heart rate 2019-10-31 20:33:00 75 /min Universi ty of [facility] Body temperature 2019-10-31 20:33:00 37.22 Jada Univ ersity of [facility] Respiratory rate 2019-10-31 20:33:00 19 /min Univ ersity of [facility] Body height 2019-10-31 20:33:00 154.9 cm Universi ty of [facility] Body weight 2019-10-31 20:33:00 62.143 kg [facility]i ty [facility] BMI 2019-10-31 20:33:00 25.89 kg/m2 Universi ty of [facility] Systolic blood 2019-10-14 17:00:00 175 mm[Hg] Univer sity of pressure [facility] Diastolic blood 2019-10-14 17:00:00 76 mm[Hg] Unive rsity of pressure [facility] Heart rate 2019-10-14 17:00:00 79 /min Universi ty of [facility] Body temperature 2019-10-14 17:00:00 36.94 Jada Univ ersity of [facility] Respiratory rate 2019-10-14 17:00:00 18 /min Univ ersity of [facility] Oxygen saturation in 2019-10-14 17:00:00 96 /min University of Arterial blood by [facility] Pulse oximetry Branch Body weight 2019-10-13 08:00:00 62.46 kg Universi ty of [facility] BMI 2019-10-13 08:00:00 26.02 kg/m2 Universi ty of [facility] Body height 2019-10-12 01:27:00 154.9 cm Universi ty of [facility] Systolic blood 2019-10-14 17:00:00 175 mm[Hg] Univer sity of pressure [facility] Diastolic blood 2019-10-14 17:00:00 76 mm[Hg] Unive rsity of [facility] Heart rate 2019-10-14 17:00:00 79 /min Universi ty of [facility] Body temperature 2019-10-14 17:00:00 36.94 Jdaa Univ ersity of [facility] Respiratory rate 2019-10-14 17:00:00 18 /min [facility] ersity of [facility] Oxygen saturation in 2019-10-14 17:00:00 96 /min University of Arterial blood by [facility] Pulse oximetry Branch Body weight 2019-10-13 08:00:00 62.46 kg Universi ty of [facility] BMI 2019-10-13 08:00:00 26.02 kg/m2 Universi ty of [facility] Body height 2019-10-12 01:27:00 154.9 cm Universi ty [facility] Systolic blood 2021-12-03 11:21:00 149 mm[Hg] [facility] Diastolic blood 2021-12-03 11:21:00 67 mm[Hg] [facility] Heart rate 2021-12-03 11:21:00 71 /min [facility] Body temperature 2021-12-03 11:21:00 36 Jada [facility] Respiratory rate 2021-12-03 11:21:00 14 /min [facility] Body height 2021-12-03 11:21:00 157.5 cm [facility] Body weight 2021-12-03 11:21:00 61.236 kg [facility] BMI 2021-12-03 11:21:00 24.69 kg/m2 [facility] Oxygen saturation in 2021-12-03 11:21:00 99 /min [facility] Arterial blood by Medical Ce ntrenee Pulse oximetry Procedures Procedure Date / Time Performing Clinician Source Performed REAGENT STRIP/BLOOD 2022-04-13 20:57:00 Naina Byrd - GLUCOSE External URINALYSIS NONAUTO W/O 2021-12-02 19:02:03 Lakia Dong - SCOPE External POCT SARS-COV-2 ANTIGEN 2021-09-27 23:29:00 [facility]BLOOD 2021-07-21 00:00:00 Outside, Yennifer Jones GLUCOSE URINE CULTURE, ROUTINE 2021-04-18 16:54:00 Lakia Dong URINALYSIS, ROUTINE 2021-04-18 16:54:00 Lakia Dongboarron URINE CULTURE, ROUTINE 2021-04-18 16:54:00 Lakia Dong RESULT LIPASE, SERUM 2021-04-18 16:07:00 Lakia Dong AMYLASE, SERUM 2021-04-18 16:07:00 Lakia Dong ASSIGNMENT OF BENEFITS 2021-03-11 21:17:04 Doctor Unassigned, No [facility] URINALYSIS, ROUTINE 2021-02-26 15:42:00 Lakia Dong MICROSCOPIC EXAMINATION 2021-02-26 15:42:00 Lakia Dong IRON AND TIBC 2021-02-26 15:31:00 Lakia Dong FERRITIN, SERUM 2021-02-26 15:31:00 Lakia Dong VITAMIN D, 25-HYDROXY 2021-02-26 15:31:00 Lakia Dong URINALYSIS NONAUTO W/O 2021-01-13 20:39:00 Lakia Dong SCOPE URINALYSIS, COMPLETE 2020-12-25 14:31:00 Lakia Dong MICROSCOPIC EXAMINATION 2020-12-25 14:31:00 Lakia Dong CBC WITH 2020-11-28 14:10:00 Carlos Schultz Kasia Whittington ld DIFFERENTIAL/PLATELET CONSENT/REFUSAL FOR 2020-01-20 15:01:42 [facility]assigned, [facility] Name Medical Slick ASSIGNMENT OF BENEFITS 2020-01-20 15:01:20 Doctor Unassigned, No [facility] CT HEAD WO CONTRAST 2020-01-19 00:01:40 Singer [facility] XR FOREARM 2 VW RIGHT 2020-01-18 23:53:49 [facility] XR TIBIA FIBULA 2 VW 2020-01-18 23:53:49 Singer [facility] LEFT [facility] COMP. METABOLIC PANEL 2020-01-18 23:36:00 [facility] ([id number]) Medical Slick CBC WITH DIFF 2020-01-18 23:36:00 [facility] NOTICE OF PRIVACY 2020-01-18 23:10:17 Doctor Unassigned, No [facility] PRACTICES Name Medical Branch CONSENT/REFUSAL FOR 2020-01-18 23:09:59 Doctor Unassigned, No [facility] Medical Slick POCT GLUCOSE 2019-10-14 16:42:00 [facility] POCT GLUCOSE 2019-10-14 13:17:00 [facility] Medical Branch LIPASE 2019-10-14 10:16:00 [facility] 2019-10-14 10:16:00 [id number] (ALB,T.PRO,BILI [facility] T,BU/BC,ALT,AST,ALK PHOS) BASIC METABOLIC PANEL 2019-10-14 10:16:00 [facility] (NA, K, CL, CO2, Medical Branch GLUCOSE, BUN, CREATININE, CA) CBC WITH DIFF 2019-10-14 10:16:00 Lory [facility] POCT GLUCOSE 2019-10-14 06:20:00 Lory [facility] (AUTOMATED) Medical Branch POCT GLUCOSE 2019-10-14 01:31:00 Lory [facility] (AUTOMATED) [facility] POCT GLUCOSE 2019-10-13 21:42:00 Lory [facility] (AUTOMATED) Medical Branch FL TIME OR 2019-10-13 15:15:00 [facility] (NON-REPORTABLE) Medical Branch POCT GLUCOSE 2019-10-13 13:01:00 Lory [facility] (AUTOMATED) [facility] LIPASE 2019-10-13 09:59:00 Lory [facility] COMP. METABOLIC PANEL 2019-10-13 09:59:00 Reese Reyes [facility] ([id number]) Medical Branch CBC WITH DIFF 2019-10-13 09:59:00 Lory [facility] POCT GLUCOSE 2019-10-12 22:46:00 Lory [facility] (AUTOMATED) [facility] POCT GLUCOSE 2019-10-12 20:33:00 Lory [facility] (AUTOMATED) [facility] POCT GLUCOSE 2019-10-12 16:17:00 Lory [facility] (AUTOMATED) Medical Branch US GALL BLADDER 2019-10-12 14:06:30 Reese Reyes [facility] ECHO ROUTINE W/DOPPLER 2019-10-12 13:36:55 [facility] Branch LIPASE 2019-10-12 10:37:00 [facility] TROPONIN I 2019-10-12 10:37:00 Lory [facility] GLYCOSYLATED HEMOGLOBIN 2019-10-12 10:37:[facility] Branch POCT GLUCOSE 2019-10-12 10:31:00 Lory [facility] (AUTOMATED) Medical Branch CT ANGIOGRAM CHEST 2019-10-12 04:50:17 Frank Yanez [facility] CT ABDOMEN PELVIS W 2019-10-12 04:50:17 Frank Yanez [facility] CONTRAST Medical Branch XR CHEST 1 VW COVID 2019-10-12 01:59:41 Frank Yanez [facility] COVID-19 (ID NOW RAPID 2019-10-12 01:55:00 Frank Yanez [facility] TESTING) Medical Branch LIPASE 2019-10-12 01:52:00 Frank Yanez [facility] TROPONIN I 2019-10-12 01:52:[address] [facility] [place] [place] COMP. METABOLIC PANEL 2019-10-12 01:52:00 Frank Yanez [facility] ([id number]) Medical Branch LIPID PANEL 2019-10-12 01:52:00 [facility] ([id number])(TOTAL Medical Branch CHOLESTEROL, TRIGLYCERIDES, HDL) CBC WITH DIFF 2019-10-12 01:52:[address] [facility] [place] PROTHROMBIN TIME / INR 2019-10-12 01:52:00 Frank Yanez [facility] N-TERMINAL PRO-BNP 2019-10-12 01:52:00 Frank Yanez [facility] LOW-DENSITY 2019-10-12 01:52:00 [facility] LIPOPROTEIN, DIRECT Medical Bran ch EKG-12 LEAD 2019-10-12 01:41:[address] [facility] [place] EKG-12 LEAD 2019-10-12 01:39:[address] [facility] [place] [place] NOTICE OF PRIVACY 2019-10-12 01:20:17 Doctor Unassigned, No [facility] PRACTICES Name Medical Branch CONSENT/REFUSAL FOR 2019-10-12 01:19:55 Doctor Unassigned, No [facility] DIAGNOSIS AND TREATMENT Name Medical Branch Plan of Care Planned Activity Planned Date Details Comments Source Future Scheduled 2022-09-22 Urine screening for [facility] Test 00:00:00 protein (procedure) Medical Center [code = 299433442] Future Scheduled 2022-03-[address] [facility] Test 00:00:00 (12+) [code = Medical Center DEPRESSION SCREENING (12+)] Future Scheduled 2022-03-08 FALLS RISK SCREENING [facility] Test 00:00:00 [code = FALLS RISK Medical C enter SCREENING] Future Scheduled 2021-12-[address] [facility] Test 00:00:00 measurement (procedure) [facility] [code = 67685763] Future Scheduled 2021-06-06 Medicare IPPE (WELCOME [facility] 00:00:00 TO MEDICARE) [code = Medical Center Medicare IPPE (WELCOME TO MEDICARE)] Future Scheduled 2021-05-17 COVID-19 VACCINE (4 - [facility] 00:00:00 Booster for [facility] series) [code = COVID-19 VACCINE (4 - Booster for [facility] series)] Future Scheduled 2015-05-15 SHINGLES VACCINES ([address] [facility] Test 00:00:00 3) [code = SHINGLES [facility] VACCINES (2 of 3)] Future Scheduled 1966-09-06 DTAP/TDAP/TD VACCINES [facility] 00:00:00 (1 - Tdap) [code = Medical C enter DTAP/TDAP/TD VACCINES (1 - Tdap)] Future Scheduled 1965-09-06 HEPATITIS C SCREENING [facility] Test 00:00:00 [code = HEPATITIS C Medical Center SCREENING] Future Scheduled [address] [facility] Test 00:00:00 Counseling and Medical Cente r Screening (12+) [code = Tobacco Cessation Counseling and Screening (12+)] Future Scheduled 1957-09-06 DIABETIC EYE EXAM [code [facility] Test 00:00:00 = DIABETIC EYE EXAM] Medical Center Future Scheduled 1957-09-[address] [facility] Test 00:[facility]:00 examination Medical Center (regime/therapy) [code = 982710032] Future Scheduled 1947 Screening for malignant [facility] Test 00:00:00 neoplasm of breast Medical C enter (procedure) [code = 084800606] Future Scheduled 1947 CT Colonography (combo) [facility] Test 00:00:00 [code = CT Colonography [facility] (combo)] Future Scheduled 1947 Screening for malignant [facility] Test 00:00:00 neoplasm of colon Medical Ce nter (procedure) [code = 714219811] Future Scheduled 1947 Screening for malignant [facility] Test 00:00:00 neoplasm of colon Medical Ce nter (procedure) [code = 278185543] Future Scheduled 1947 DXA SCAN [code = DXA [facility] Test 00:00:00 SCAN] [facility] Future Scheduled 1947 Screening for malignant [facility] Test 00:00:00 neoplasm of colon Medical Ce nter (procedure) [code = 635764597] Future Scheduled 1947 Screening for malignant [facility] Test 00:00:00 neoplasm of colon Medical Ce nter (procedure) [code = 746310889] Future Scheduled 1947 Sigmoidoscopy [code = [facility] 00:00:00 Sigmoidoscopy] [facility] Start End Encounter Admission Attending Care Care Encounter Source Date/Time Date/Time Type Type Clinicians Facility Department ID 2022-03-27 [facility] [id number] Common 07:34:00 [id number] [facility] 2021-09-24 Outpatient Feaver, STLMLC STLC [id number] Common 07:19:00 José Luis [id number] [facility] 2021-07-24 Outpatient Feaver, STLMLC STLC [id number] Common 13:25:01 José Luis [id number] [facility] 2021-04-02 Outpatient Feaver, STLMLC STLC [id number] Common 11:08:04 José Luis [id number] [facility] 2021-01-04 Emergency [facility] [id number] Univers 05:14:15 ity [facility] 2021-01-03 Emergency [facility] [id number] Univers 10:51:44 ity [facility] 2023-01-25 2023-01-25 Outpatient KASIA SPANGLERSEY [id number] Kasia 15:00:00 15:00:00 CHATA Hajohn ld 2022-08-17 2022-08-17 Outpatient NAINA BYRD KASIA PEDROZA [id number] Kasia 15:15:00 15:15:00 Seybol d 2022-04-14 2022-04-14 Outpatient PATRICKReuben KASIA PEDROZA [id number] Kasia 00:00:00 00:00:00 LAKIA Seybol d 2022-04-14 2022-04-14 Outpatient KASAI PEDROZA [id number] Kasia 00:00:00 00:00:00 Seybol d 2022-04-13 2022-04-13 Outpatient TRED47 KASIA PEDROZA [id number] Kasia 16:00:00 16:00:00 Seybol d 2022-04-13 2022-04-13 Outpatient NAINA BYRD KASIA PEDROZA [id number] Kasia 15:30:00 15:30:00 Seybol d 2022-04-09 2022-04-09 Outpatient LAB90 KASIA PEDROZA [id number] Kasia 08:20:00 08:20:00 Seybol d 2022-04-08 2022-04-08 Outpatient NAINA BYRD KASIA PEDROZA [id number] Kasia 00:00:00 00:00:00 Seybol d 2022-04-06 2022-04-06 Outpatient PATRICKReubenKASIA [id number] Kasia 00:00:00 00:00:00 LAKIA Seybol d 2022-04-01 2022-04-01 OFFICE STLMLC STLMLC [id number] Co mmon 00:00:00 00:00:00 VISIT Spirit ESTAB PT - [facility] LEVEL [facility] 2022-03-27 2022-03-27 Outpatient KASIA DONG [id number] Kasia 00:00:00 00:00:00 LAKIA Seybol d 2022-03-27 2022-03-27 Outpatient KAISA PEDROZA [id number] Kasia 00:00:00 00:00:00 Seybol d 2022-03-24 2022-03-24 Outpatient KASIA DONG [id number] Kasia 00:00:00 00:00:00 LAKIA Seybol d 2022-03-18 2022-03-18 Outpatient KASIA PEDROZA [id number] Kasia 00:00:00 00:00:00 Seybol d 2022-03-18 2022-03-18 Outpatient KASIA PEDROZA [id number] Kasia 00:00:00 00:00:00 Seybol d 2022-03-16 2022-03-16 Outpatient HUNDL KASIA PEDROZA [id number] Kasia 15:30:00 15:30:00 LAKIA Seybol d 2022-03-13 2022-03-13 Outpatient PREZASKASIA [id number] Kasia 16:30:00 16:30:00 KENAN Seybol d 2022-03-01 2022-03-01 Outpatient CARLOS SCHULTZ [id number] Kasia 00:00:00 00:00:00 Seybol d 2022-02-12 2022-02-12 Outpatient CARLOS SCHULTZ [id number] Kasia 00:00:00 00:00:00 Seybol d 2022-02-03 2022-02-03 Outpatient KASIA FERRARA [id number] Kasia 11:15:00 11:15:00 ALI Seybol d 2022-01-27 2022-01-27 Outpatient KASIA SPANGLER [id number] Kasia 13:15:00 13:15:00 CHATA Whittington ld 2021-12-31 2021-12-31 Outpatient KASIA PEDROZA [id number] Kasia 08:00:00 08:00:00 Seybol d 2021-12-18 2021-12-18 Outpatient SHELDONKASIA [id number] Kasia 00:00:00 00:00:00 MALKA Seybol d 2021-12-10 2021-12-10 [facility] [id number] Co mmon 00:00:00 00:00:00 VISIT EST Spir it PT LEVEL 3 - [facility] 2021-12-09 2021-12-09 Outpatient KASIA FERRARA [id number] Kasia 09:15:00 09:15:00 ALI Seybol d 2021-12-04 2021-12-04 Outpatient KASIA DONG [id number] Kasia 00:00:00 00:00:00 LAKIA Seybol d 2021-12-03 2021-12-[address] [facility] [id number] CHI 11:00:00 11:30:00 Visit [facility] 2021-12-03 2021-12-03 Outpatient LÁZARO MAGALLON [facility] SLE [id number] SLE 11:10:42 11:10:42 CAS 2021-12-02 2021-12-02 Outpatient LAB90 KASIA PEDROZA [id number] Kasia 14:20:00 14:20:00 Seybol d 2021-12-02 2021-12-02 Outpatient KASIA DONG [id number] Kasia 13:30:00 13:30:00 LAKIA Seybol d 2021-11-24 2021-11-24 Outpatient SULAIMAN OTTO [id number] Kasia 11:00:00 11:00:00 Seybol d 2021-11-24 2021-11-24 Outpatient KASIA VELAZQUEZ [id number] Ksaia 00:00:00 00:00:00 KENAN Seybol d 2021-11-06 2021-11-06 Outpatient KASIA VELAZQUEZ [id number] Kasia 00:00:00 00:00:00 KENAN Seybol d 2021-10-29 2021-10-29 Outpatient KASIA VELAZQUZE [id number] Kasia 00:00:00 00:00:00 KENAN Seybol d 2021-10-28 2021-10-28 Outpatient KASIA VELAZQUEZ [id number] Kasia 00:00:00 00:00:00 KENAN Seybol d 2021-10-21 2021-10-21 Outpatient KASIA VELAZQUEZ [id number] Kasia 00:00:00 00:00:00 KENAN Seybol d 2021-10-16 2021-10-16 Outpatient KASIA DONG [id number] Kasia 00:00:00 00:00:00 LAKIA Seybol d 2021-10-13 2021-10-13 Outpatient NAINA BYRD KASIA PEDROZA [id number] Kasia 15:45:00 15:45:00 Seybol d 2021-10-13 2021-10-13 Office NAINA BYRD [id number] Kasia 15:30:00 15:30:00 Visit [id number] Se ybold [id number] [id number] 2021-10-01 2021-10-01 Outpatient KASIA VELAZQUEZ [id number] Kasia 00:00:00 00:00:00 KENAN Seybol d 2021-09-27 2021-09-27 [facility] [id number] [facility] 19:40:00 20:52:32 MAGALY lopez [facility] 2021-09-27 2021-09-27 [facility] 1.2.840. [id number] [facility] 19:40:00 20:00:00 [facility] [id number] ity of [place] 4.2.7.2.686 Jordan as PRO?BLEA [id number] [address] OFFICE [facility] 2021-09-27 2021-09-27 [facility] [id number] Univers 00:00:00 00:00:00 [facility] [id number] i ty of [place] 4.2.7.2.686 Jordan as PRO?BLEA [id number] [address] OFFICE [facility] 2021-09-25 2021-09-25 Outpatient KASIA DONG [id number] Kasia 00:00:00 00:00:00 LAKIA Seybol d 2021-09-22 2021-09-22 Outpatient LAB90 KASIA PEDROZA [id number] Kasia 09:00:00 09:00:00 Seybol d 2021-09-22 2021-09-22 Office Sulaiman Dong [id number] Kasia 08:00:00 09:00:00 Visit Lakia Martin [id number] Se ybold [id number] [id number] 2021-09-16 2021-09-16 Outpatient KASIA VELAZQUEZ [id number] Kasia 00:00:00 00:00:00 KENAN Seybol d 2021-09-10 2021-09-10 Outpatient LAB90 KASIA PEDROZA [id number] Kasia 11:50:00 11:50:00 Seybol d 2021-09-10 2021-09-10 Office IkerSulaiman [id number] Kasia 11:00:00 11:30:00 Visit Lakia Martin [id number] Se ybold 1.2.7.2.686 [id number] 2021-09-05 2021-09-05 Office PatrickSulaiman alexis [id number] Kasia 09:00:00 09:30:00 Visit Lakia Martin [id number] Se ybold 1.2.7.2.686 [id number] 2021-09-04 2021-09-04 ([facility] [id number] Co mmon 00:00:00 00:00:00 [facility] 2021-09-01 2021-09-01 Outpatient KASIA DONG [id number] Kasia 00:00:00 00:00:00 LAKIA Seybol d 2021-08-20 2021-08-20 Outpatient KASIA DONG [id number] Kasia 00:00:00 00:00:00 LAKIA Seybol d 2021-08-19 2021-08-19 Outpatient KASIA DONG [id number] Kasia 00:00:00 00:00:00 LAKIA Seybol d 2021-08-18 2021-08-18 Office IkerSulaiman 1.2.840.114 [id number] Kasia 11:00:00 11:30:00 Visit Lakia Martin [id number] Se ybold 1.2.7.2.686 [id number] 2021-08-18 2021-08-18 Outpatient KASIA DONG [id number] Kasia 00:00:00 00:00:00 LAKIA Seybol d 2021-08-11 2021-08-11 Outpatient KKG74-BQS KASIA PEDROZA [id number] Kasia 15:35:00 15:35:00 Seybol d 2021-08-11 2021-08-11 Office PatrickSulaiman alexis 1.2.840.114 [id number] Kasia 14:30:00 15:00:00 Visit Lakia Martin [id number] Se ybold 1.2.7.2.686 [id number] 2021-08-11 2021-08-11 Outpatient KASIA DONG [id number] Kasia 00:00:00 00:00:00 LAKIA Seybol d 2021-08-07 2021-08-07 OFFICE STLMLC STLC [id number] Co mmon 00:00:00 00:00:00 VISIT Spirit ESTAB PT - [facility]I LEVEL 4 [facility] 2021-07-30 2021-07-30 Outpatient KASIA DONG [id number] Kasia 00:00:00 00:00:00 LAKIA Seybol d 2021-07-21 2021-07-21 Office Marin Naina SACHI 1.2.840.114 [id number] Kasia 11:15:00 11:45:00 Visit [id number] Se ybold 1.2.7.2.686 [id number] 2021-07-16 2021-07-16 Outpatient KASIA DONG [id number] Kasia 00:00:00 00:00:00 LAKIA Seybol d 2021-07-12 2021-07-12 Outpatient KASIA VELAZQUEZ [id number] Kasia 00:00:00 00:00:00 KENAN Seybol d 2021-07-03 2021-07-03 Outpatient KASIA VELAZQUEZ [id number] Kasia 00:00:00 00:00:00 KENAN Seybol d 2021-07-03 2021-07-03 Outpatient TERI KASIA PEDROZA [id number] Kasia 00:00:00 00:00:00 KENAN Seybol d 2021-06-19 2021-06-19 Office Sulaiman Velazquez 1.2.840.114 [id number] Kasia 10:00:00 10:15:00 Visit Kenan Martin [id number] Se ybold 1.2.7.2.686 [id number] 2021-05-27 2021-05-27 Outpatient KASIA DONG [id number] Kasia 00:00:00 00:00:00 LAKIA Seybol d 2021-05-26 2021-05-26 Outpatient KASIA VELAZQUEZ [id number] Kasia 00:00:00 00:00:00 KENAN Seybol d 2021-05-23 2021-05-23 Outpatient LAB90 KASIA PEDROZA [id number] Kasia 08:05:00 08:05:00 Seybol d 2021-05-22 2021-05-22 Office Sulaiman Velazquez 1.2.840.114 [id number] Kasia 10:30:00 10:45:00 Visit Kenan Martin 350.1.13.13 Se ybold 1.2.7.2.686 [id number] 2021-05-20 2021-05-20 Outpatient KASIA DONG [id number] Kasia 00:00:00 00:00:00 LAKIA Seybol d 2021-05-15 2021-05-15 OFFICE STLMLC STLMLC [id number] Co mmon 00:00:00 00:00:00 VISIT EST Spir it PT LEVEL 3 - [facility] 2021-05-09 2021-05-09 Outpatient KASIA PEDROZA [id number] Kasia 00:00:00 00:00:00 Seybol d 2021-05-06 2021-05-06 Outpatient KASIA PEDROZA [id number] Kasia 00:00:00 00:00:00 Seybol d 2021-05-05 2021-05-05 Outpatient KASIA [id number] Kasia 00:00:00 00:00:00 Seybol d 2021-05-02 2021-05-02 Outpatient IKER KASIA PEDROZA [id number] Kasia 00:00:00 00:00:00 LAKIA Seybol d 2021-05-01 2021-05-01 Outpatient IKER KASIA PEDROZA [id number] Kasia 00:00:00 00:00:00 LAKIA Seybol d 2021-04-28 2021-04-28 Outpatient IKER KASIA PEDROZA [id number] Kasia 00:00:00 00:00:00 LAKIA Seybol d 2021-04-22 2021-04-22 Outpatient PATRICKReuben KASIA PEDROZA [id number] Kasia 00:00:00 00:00:00 LAKIA Seybol d 2021-04-18 2021-04-18 Outpatient LAB90 KASIA PEDROZA [id number] Kasia 09:55:00 09:55:00 Seybol d 2021-04-18 2021-04-18 Office Patrickreuben Hilario [id number] Kasia 09:00:00 09:30:00 Visit Lakia Martin [id number] Se simone [id number] 2021-04-15 2021-04-15 Outpatient IKER KASIA PEDROZA [id number] Kasia 00:00:00 00:00:00 LAKIA Seybol d 2021-03-19 2021-03-19 Outpatient IKER KASIA PEDROZA [id number] Kasia 00:00:00 00:00:00 LAKIA Seybol d 2021-03-13 2021-03-13 Letter BRENDA Mcbride 1.2.840.114 [id number] Univers 00:00:00 00:00:00 (Out) Cherelle POLO 350.1.13.10 [facility] 4.2.7.2.686 [place] [phone] Medi ranjan 019 Branch 2021-03-11 2021-03-11 Laboratory Only, Ang Db Test [facility] 1.2.8 40.114 [id number] Univers 15:15:00 15:30:00 Only Juancarlos Lara [facility] 350.1.13.10 ity [facility] 4.2.7.2.686 [place] as PRO?BLEA [phone] [address] MEDICAL OFFICE BUILDING 2021-03-11 2021-03-11 Outpatient Grace LARA [facility] [id number] [facility] 15:15:00 15:15:00 JUANCARLOS ity [facility] 2021-03-11 2021-03-11 Outpatient KASIA DONG [id number] Kasia 09:30:00 09:30:00 LAKIA Seybol d 2021-03-11 2021-03-11 Outpatient KASIA DONG [id number] Kasia 00:00:00 00:00:00 LAKIA Seybol d 2021-03-11 2021-03-11 Orders Doctor GUTIERREZ 1.2.840.114 [id number] [facility] 00:00:00 00:00:00 Only UnassMELANI polanco 350.1.13.[address] [facility] 4.2.7.2.686 [place] as [phone] [address] 2021-03-10 2021-03-10 Outpatient KASIA DONG [id number] Kasia 00:00:00 00:00:00 LAKIA Seybol d 2021-03-10 2021-03-10 Outpatient KASIA PEDROZA [id number] Kasia 00:00:00 00:00:00 Segrantol d 2021-03-06 2021-03-06 Outpatient KASIA DONG [id number] Kasia 00:00:00 00:00:00 LAKIA Seybol d 2021-03-05 2021-03-05 Telemedici Sulaiman Dong 1.2.840.114 [id number] Kasia 08:00:00 08:30:00 ne Lakia Martin 350.1.13.13 Se ybfidel 1.2.7.2.686 [id number] 2021-03-03 2021-03-03 Outpatient SULAIMAN OTTO [id number] Kasia 15:45:00 15:45:00 Seybol d 2021-03-03 2021-03-03 Outpatient IKER KASIA PEDROZA [id number] Kasia 00:00:00 00:00:00 LAKIA Seybol d 2021-03-03 2021-03-03 Outpatient IKER KASIA PEDROZA [id number] Kasia 00:00:00 00:00:00 LAKIA Seybol d 2021-02-26 2021-02-26 Outpatient LAB90 KASIA PEDROZA [id number] Kasia 09:25:00 09:25:00 Seybol d 2021-02-26 2021-02-26 Office Sulaiman Dong 1.2.840.114 [id number] Kasia 08:30:00 09:00:00 Visit Lakia Martin 350.1.13.13 Se simone 1.2.7.2.686 [id number] 0 2021-02-18 2021-02-18 Outpatient KASIA PEDROZA [id number] Kasia 00:00:00 00:00:00 Seybol d 2021-02-17 2021-02-17 Outpatient CARLOS SCHULTZ KASIA PEDROZA [id number] Kasia 00:00:00 00:00:00 Seybol d 2021-02-10 2021-02-10 Outpatient KASIA PEDROZA [id number] Kasia 00:00:00 00:00:00 Seybol d 2021-02-10 2021-02-10 Outpatient MISTY SCHULTZCORNELL PEDROZA [id number] Kasia 00:00:00 00:00:00 Seybol d 2021-02-04 2021-02-04 Outpatient IKER KASIA PEDROZA [id number] Kasia 00:00:00 00:00:00 LAKIA Seybol d 2021-01-31 2021-01-31 Outpatient KSAIA PEDROZA [id number] Kasia 00:00:00 00:00:00 Seybol d 2021-01-26 2021-01-26 Outpatient PATRICKReuben KASIA PEDROZA [id number] Kasia 00:00:00 00:00:00 LAKIA Seybol d 2021-01-17 2021-01-17 Outpatient COVID-PFIZE KASIA PEDROZA [id number] Kasia 09:00:00 09:00:00 R BOOSTER, Sey bold HILARIO 2021-01-15 2021-01-15 Outpatient CLARITA, HILARIO KASIA KASIA [id number] Kasia 14:15:00 14:15:00 Seybol d 2021-01-15 2021-01-15 Outpatient HUNDL, KASIA KASIA [id number] Kasia 00:00:00 00:00:00 LAKIA Seybol d 2021-01-15 2021-01-15 Outpatient HUNDL, KASIA PEDROZA [id number] Kasia 00:00:00 00:00:00 LAKIA Seybol d 2021-01-15 2021-01-15 Outpatient HUNDL, KASIA PEDROZA [id number] Kasia 00:00:00 00:00:00 LAKIA Seybol d 2021-01-14 2021-01-14 Outpatient HUNDL, KASIA KASIA [id number] Kasia 00:00:00 00:00:00 LAKIA Seybol d 2021-01-13 2021-01-13 Outpatient LAB90 KASIA KASIA [id number] [place]asia 15:30:00 15:30:00 Seybol d 2021-01-13 2021-01-13 Office Sulaiman Dong 1.2.840.114 [id number] Kasia 14:25:37 14:55:37 Visit Lakia Martin 350.1.13.13 Se ybold 1.2.7.2.686 [id number] 2021-01-13 2021-01-13 Outpatient HUNDL, KSAIA PEDROZA [id number] Kasia 00:00:00 00:00:00 LAKIA Seybol d 2020-12-25 2020-12-25 Outpatient LAB90 KASIA PEDROZA [id number] Kasia 11:10:00 11:10:00 Seybol d 2020-12-25 2020-12-25 Office Sulaiman Dong 1.2.840.114 [id number] Kasia 09:00:08 09:30:08 Visit Lakia Martin 350.1.13.13 Se ybold 1.2.7.2.686 [id number] 2020-12-19 2020-12-19 Outpatient HUNDL, KASIA PEDROZA [id number] Kasia 00:00:00 00:00:00 LAKIA Seybol d 2020-12-17 2020-12-17 Office Sulaiman Dong 1.2.840.114 [id number] [place] 12:30:43 13:00:43 Visit Lakia Martin 350.1.13.13 Se ybold 1.2.7.2.686 [id number] 2020-12-17 2020-12-17 Outpatient KASIA PEDROZA [id number] Kasia 08:00:00 08:00:00 Seybol d 2020-12-09 2020-12-09 Outpatient CARLOS SCHULTZ KASIA PEDROZA [id number] Kasia 00:00:00 00:00:00 Seybol d 2020-12-04 2020-12-04 Outpatient CARLOS SCHULTZ KASIA PEDROZA [id number] Kasia 00:00:00 00:00:00 Seybol d 2020-11-29 2020-11-29 Outpatient CARLOS SCHULTZ KASIA PEDROZA [id number] Kasia 00:00:00 00:00:00 Seybol d 2020-11-28 2020-11-28 Outpatient LAB90 KASIA PEDROZA [id number] Kasia 09:15:00 09:15:00 Seybol d 2020-11-28 2020-11-28 Office Carlos Schultz 1.2.840.114 [id number] Kasia 08:04:39 08:49:39 Visit Paige Martin 350.1.13.13 Se ybold 1.2.7.2.686 [id number] 2020-05-13 2020-05-13 [facility] 1.2.840.114 [id number] Univers 00:00:00 00:00:00 Outreach Ross JENNINGS 350.1.13.10 shahana jackson of [facility] 4.2.7.2.686 [place] LEE [id number] Wy dical [address] 2020-01-20 2020-01-20 [facility] 1.2.840.114 [id number] Univers 09:00:00 23:59:00 Encounter Michael Reevse 350.1.13.10 it[place] [id number] [facility] [address] 2020-01-20 2020-01-20 Outpatient R ALAINA [facility] [id number] Univers 00:00:00 00:00:00 MICHAEL yanez [facility] 2020-01-18 2020-01-18 Emergency , [facility] 1.2.742.247 [id number] Univers 17:14:00 18:57:00 Ziggy Reeves 350.1.13.10 i [place] [id number] [facility] 084 [address] 2020-01-18 2020-01-18 Orders Doctor BRENDA 1.2.840.114 [id number] Univers 00:00:00 00:00:00 Only Unassigned, MELANI 350.1.13.10 ity of [place] [facility] 4.2.7.2.686 [place] as [phone] [facility] 009 [address] 2019-11-28 2019-11-28 Outpatient R SANDOR [facility] [id number] Univers 13:30:00 13:30:00 NATALIA yanez [facility] 2019-10-31 2019-10-31 [facility] 1.2.880.222 [id number] Univers 15:21:52 16:12:34 Visit Natalia Reeves 350.1.13.10 [place] [phone] Wy dical [facility] 377 [facility] 2019-10-31 2019-10-31 Outpatient R SANDOR [facility] [id number] Univers 15:30:00 15:30:00 NATALIA yanez [facility] 2019-10-16 2019-10-16 Transition Elena Li 1.2.840.114 [id number] Univers 00:00:00 00:00:00 of Crispin Rose 350.1.13.10 it y of [place] [id number] [facility] [address] 2019-10-16 2019-10-16 Transition Elena Li 1.2.840.114 [id number] 00:00:00 00:00:00 of [place] Rose 350.1.13.10 [place] 4.2[id number] [facility] 2019-10-11 2019-10-14 [facility] 1.2.840. 114 [id number] [facility] 20:32:00 13:28:00 Encounter Erika Henley 350.1.13.10 ity of [place] 4.2.7.2.686 [facility] [phone] [facility] [address] 2019-10-11 2019-10-14 [facility] 1.2.840. 114 [id number] 20:32:00 13:28:00 Encounter Erika Henley 350.1.13.10 [place] 4.2.7.2.686 [place] [id number] [facility] 2019-10-11 2019-10-11 Orders Doctor GUTIERREZ 1.2.840.114 [id number] [facility] 00:00:00 00:00:00 Only Unassigned, MELANI 350.1.13.10 ity of [place] [facility] 4.2.7.2.686 [place] as [id number] [facility] [address] 2019-10-11 2019-10-11 Orders Doctor GUTIERREZ 1.2.840.114 [id number] 00:00:00 00:00:00 Only Unassigned, MELANI 350.1.13.10 [place] [facility] 4.2.7.2.686 [id number] 2019-09-19 2019-09-19 Laboratory Lab, [facility] Fam Pob I [facility] 1.2. 840.114 [id number] Univers 09:57:04 10:17:04 Only Roge Ferraria Ella 350.1.13.10 ity of [place] 4.2.7.2.686 [place] as Professio [phone] Wy dical [facility] [address] Office [facility] [address] One 2019-09-19 2019-09-19 Laboratory Lab, [facility] 1.2.840.114 [id number] 09:57:04 10:17:04 Only Fam Pob I Health 350.1.13.10 [place] 4.2.7.2.686 Professio [phone] [facility] [address] Building One 2019-09-19 2019-09-19 Outpatient R [facility] [id number] Univers 10:00:00 10:00:00 ity of [facility] 2019-09-19 2019-09-19 Letter Doctor GUTIERREZ 1.2.840.114 [id number] Univers 00:00:00 00:00:00 (Out) Unassigned, MELANI 350.1.13.10 ity of [place] [facility] 4.2.7.2.686 [place] as [phone] [address] 2019-09-19 2019-09-19 Letter Doctor BRENDA 1.2.840.114 [id number] 00:00:00 00:00:00 (Out) Unassigned, MELANI 350.1.13.10 [place] [facility] 4.2.7.2.686 [id number] [facility] 2019-05-10 2019-05-10 Outpatient Coleen Hornet [id number] Common 08:30:00 08:30:00 t Specialty/U Sp jeni Specialty rology - [facility] 2019-04-28 2019-04-28 Outpatient Coleen Hornet [id number] Common 15:26:00 15:26:00 t Specialty/U Sp jeni Specialty rology - [facility] 2019-04-24 2019-04-24 Outpatient Coleen Hornet [id number] Common 09:00:00 09:00:00 t Specialty/U Sp jeni Specialty rology - [facility] Results Test Description Test Time Test Comments Results Result Comments Source REAGENT STRIP/BLOOD GLUCOSE 2022-04-13 20:57:00 Test Item Value Reference Range Interpretation Comme nts BLOOD SUGAR (test code = 072099) 273 mg/dL 65-99 A Lab Interpretation (test code = 02230-6) Abnormal Kasia Seybold - ExternalURINALYSIS NONAUTO W/O [id number] 19:02:00 Test Item Value Reference Range Interpretation Comments UD KETONES (test code = NEG 5-160 706738) UD GLUCOSE (test code = NEG 100-2000 712072) UD PROTEIN (test code = NEG Trace - 2000 mg/dL 884195) UD LEUKOCYTES (test NEG Trace - Large @ 2 code = 274151) min. UD NITRITE (test code = NEG Neg. - Pos. @ 60 214349) sec. UD UROBILINOGEN (test 0.2 mg/dL 0.2-8 code = 550532) UD PH (test code = See_Comment [Automat ed 880668) message] The sy stem which generated this result transmitted reference range : 5.0 - 8.5 @ 60 sec.. The refer ence range was not u sed to interpret th is result as normal/abnormal . UD BLOOD (test code = NEG Neg. - Large @ 60 102953) sec. UD SPECIFIC GRAVITY See_Comment [Automa sven (test code = 514675) message ] The system which generated this result transmitted reference range : 1.000 - 1.030 @ 45 sec.. The refer ence range was not u sed to interpret th is result as normal/abnormal . UD BILIRUBIN (test code NEG Neg. - Large @ 45 = 669203) sec. Lab Interpretation Normal (test code = 82256-2) Kasia Jones - ExternalPOCT SARS-COV-2 ANTIGEN (BINAX NOW)2021-09-27 23:44:00 Test Item Value Reference Range Interpretation Comments POCT SARS-COV-2 ANTIGEN (test code = Positive Not Detected A 5076) On board controls acceptable with C Yes Line (test code = 3574) Lab Interpretation (test code = Abnormal 65130-1) [facility] [id number] 00:00:00 Test Item Value Reference Range Interpretation Comments BLOOD SUGAR (test code = 658537) 180 mg/dL 65-99 A Lab Interpretation (test code = Abnormal 94042-9) Kasia Irving CULTURE, [id number] 10:06:00 Test Item Value Reference Range Interpretation Comments URINE CULTURE, ROUTINE Final report (test code = 630-4) FELICITA (test code = FELICITA) [facility] results reported in Eastern Time. [facility] Clinical Information:SRC:Urine*U rine ?[facility] Source of Specimen:Urine*Urine Kasia Irving CULTURE, ROUTINE [id number] 10:06:00RESULT 1Comment: Culture shows less than 10,000 colony forming units of bacteria permilliliter of urine. This colony count is not generally consideredto be clinically significant. [facility] Jaz HaoldLIPASE, [id number] 14:37:00 Test Item Value Reference Range Interpretation Comments LIPASE, SERUM (test 54 U/L 14-85 code = 3040-3) FELICITA (test code = FELICITA) [facility] results reported in Eastern Time. [facility] Clinical Information:[facility] Source of Specimen:Blood, venous*Venhelen Pedroza SeyboldAMYLASE, [id number] 14:37:00 Test Item Value Reference Range Interpretation Comments AMYLASE, SERUM (test 44 U/L 31-110 code = 1798-8) FELICITA (test code = FELICITA) [facility] results reported in Eastern Time. [facility] Clinical Information:SRC:Blood, venous*Venipunc ture ? [facility] Source of Specimen:Blood, venous*Gunner Pedroza SeyboldURINALYSIS, [id number] 13:43:00 Test Item Value Reference Range Interpretation Comments SPECIFIC GRAVITY 1.005-1.030 (test code = 5811-5) PH (test code = 5.0-7.5 5803-2) URINE-COLOR (test Yellow Yellow code = 5778-6) APPEARANCE (test Clear Clear code = 5767-9) WBC ESTERASE (test Negative Negative code = 5799-2) PROTEIN (test code Negative Negative/Trace = 05612-9) GLUCOSE (test code Negative Negative = 16678-4) KETONES (test code Negative Negative = 2514-8) OCCULT BLOOD (test Negative Negative code = 5794-3) BILIRUBIN (test Negative Negative code = 5770-3) UROBILINOGEN,SEMI-Q 0.2 mg/dL 0.2-1.0 N (test code = 53215-4) NITRITE, URINE Negative Negative (test code = 5802-4) MICROSCOPIC Microscopic not EXAMINATION (test indicated and not code = 28713-9) performed. FELICITA (test code = [facility] results FELICITA) reported in Eastern Time. [facility] Clinical Information:SRC: Urine*Urine ?[facility] Source of Specimen:Urine*U rine Kasia SeyboldURINALYSIS, [id number] 15:30:00 Test Item Value Reference Range Interpretation Comments SPECIFIC GRAVITY 1.005-1.030 (test code = 2965-2) PH (test code = 5.0-7.5 5803-2) URINE-COLOR (test Yellow Yellow code = 5778-6) APPEARANCE (test code Cloudy Clear A = 5767-9) WBC ESTERASE (test 3+ Negative A code = 5799-2) PROTEIN (test code = 1+ Negative/Trace A 88312-1) GLUCOSE (test code = 1+ Negative A 2349-9) KETONES (test code = Negative Negative 2514-8) OCCULT BLOOD (test Trace Negative A code = 5794-3) BILIRUBIN (test code Negative Negative = 5770-3) UROBILINOGEN,SEMI-QN 0.2 mg/dL 0.2-1.0 (test code = 61563-2) NITRITE, URINE (test Positive Negative A code = 5802-4) MICROSCOPIC See below: Microscopic was EXAMINATION (test indicated and was code = 12925-9) performed. FELICITA (test code = FELICITA) [facility] results reported in Eastern Time. [facility] Clinical Information:SRC :Urine*Urine ?[facility] Source of Specimen:Urine* Urine Lab Interpretation Abnormal (test code = 29853-7) Kasia RobertMICROSCOPIC [id number] 15:30:00 Test Item Value Reference Range Interpretation Comments WBC (test code = >30 See_Comment A [Automated 5821-4) message] The system which generated this result transmit sven reference range : 0 - 5 /hpf. The reference range was not used to interpret this result as normal/abnormal . RBC (test code = 0-2 See_Comment [Automated 50514-3) message] The system which generated this result [...] code = None seen None seen /lpf 20551-2) BACTERIA (test code = Many None seen/Few A 5769-5) FELICITA (test code = FELICITA) [facility] results reported in [place] Time. [facility] Clinical Information:SRC :Urine*Urine ?[facility] Source of Specimen:Urine* Urine Lab Interpretation Abnormal (test code = 95268-7) Kasia HaoldIRON AND [id number] 14:37:00 Test Item Value Reference Range Interpretation Comments IRON BIND.CAP.(TIBC) (test 420 ug/dL 250-450 code = 2500-7) UIBC (test code = 2501-5) 372 ug/dL 118-369 H IRON, SERUM (test code = 48 ug/dL 27-139 2498-4) IRON SATURATION (test code 11 % 15-55 L = 2502-3) FELICITA (test code = FELICITA) [facility] results reported in [place] Time. [facility] Clinical Information:SRC:Blo od, venous*Venipunc ture ? [facility] Source of Specimen:Blood, venous*Venipunc Lab Interpretation (test Abnormal code = 54967-2) Kasia HaoldFERRITIN, [id number] 14:26:00 Test Item Value Reference Range Interpretation Comments FERRITIN, SERUM (test 19 ng/mL 15-150 code = 2276-4) FELICITA (test code = FELICITA) [facility] results reported in [place] Time. [facility] Clinical Information:SRC:Blood, venous*Venipunc ture ? [facility] Source of Specimen:Blood, venous*Venipunc Kasia HaoldVITAMIN D, [id number] 14:15:00 Test Item Value Reference Range Interpretation Comments VITAMIN D, 25-HYDROXY 21.2 ng/mL 30.0-100.0 L Vitami n D deficiency (test code = 74746-1) has be en defined by the [place] of[place]icine and an Endocrine Socie ty practice guidel ine as alevel of se rum 25-OH vitamin D less than 20 ng/mL (1,2).The Endoc rine Society went on to further define vitamin Dinsufficiency as a level between 2 1 and 29 ng/mL (2).1. IOM ([place] of Medicine). 2010 . Dietary referen ce ? intakes for ranjan cium and D. [place]: The ? [employer] n[employer] .2. Anthony MF, Nicolás malave [place], [...] c Lab Interpretation Abnormal (test code = 07858-9) Kasia JonesURINALYSIS NONAUTO W/O [id number] 20:39:00 Test Item Value Reference Range Interpretation Comments UD KETONES (test code = neg 5-160 357413) UD GLUCOSE (test code = neg 100-2000 044814) UD PROTEIN (test code = neg Trace - 2000 mg/dL 908660) UD LEUKOCYTES (test mod Trace - Large @ 2 code = 490569) min. UD NITRITE (test code = neg Neg. - Pos. @ 60 891238) sec. UD UROBILINOGEN (test 0.2 mg/dL 0.2-8 code = 654459) UD PH (test code = See_Comment [Automat ed 235521) message] The sy stem which generated this result transmitted reference range : 5.0 - 8.5 @ 60 sec.. The refer ence range was not u sed to interpret th is result as normal/abnormal . UD BLOOD (test code = neg Neg. - Large @ 60 656214) sec. UD SPECIFIC GRAVITY See_Comment [Automa sven (test code = 771564) message ] The system which generated this result transmitted reference range : 1.000 - 1.030 @ 45 sec.. The refer ence range was not u sed to interpret th is result as normal/abnormal . UD BILIRUBIN (test code neg Neg. - Large @ 45 = 535807) sec. Lab Interpretation Abnormal (test code = 67618-7) Kasia Henriquez, [id number] 20:13:00 Test Item Value Reference Range Interpretation Comments SPECIFIC GRAVITY (test 1.005-1.030 code = 2965-2) PH (test code = 5803-2) 5.0-7.5 URINE-COLOR (test code = Yellow Yellow 5778-6) APPEARANCE (test code = Hazy Clear A 5767-9) WBC ESTERASE (test code = 2+ Negative A 5799-2) PROTEIN (test code = Negative Negative/Trace 26769-7) GLUCOSE (test code = Negative Negative 2349-9) KETONES (test code = Negative Negative 2514-8) OCCULT BLOOD (test code = Trace Negative A 5794-3) BILIRUBIN (test code = Negative Negative 5770-3) UROBILINOGEN,SEMI-QN (test 0.2 mg/dL 0.2-1.0 code = 09387-8) NITRITE, URINE (test code Negative Negative = 5802-4) MICROSCOPIC EXAMINATION See below: (test code = 19276-4) FELICITA (test code = FELICITA) [facility] results reported in Eastern Time. [facility] Clinical Information:SRC:Uri ne ?[facility] Source of Specimen:Urine Lab Interpretation (test Abnormal code = 43797-6) Kasia JonesMICROSCOPIC [id number] 20:13:00 Test Item Value Reference Range Interpretation Comments WBC (test code = >30 See_Comment A [Automated 5821-4) message] The system which generated this result transmit sven reference range : 0 - 5 /hpf. The reference range was not used to interpret this result as normal/abnormal . RBC (test code = 0-2 See_Comment [Automated 51491-2) message] The system which generated this result [...] Specimen:Urine Lab Interpretation Abnormal (test code = 39212-4) Kasia HaoldCBC WITH DIFFERENTIAL/[id number] 13:17:00 Test Item Value Reference Range Interpretation [...] (ABSOLUTE) (test code messag e] The = 751-8) system which generated this result transmit sven [...] 0 % Not Estab. (test code = 79397-4) IMMATURE GRANS (ABS) See_Comment [Autom ated (test code = 08015-8) messag e] The system which generated this result transmit sven reference range : 0.0 - 0.1 x10E3/uL. The reference range was not used to interpret this result as normal/abnormal . FELICITA (test code = FELICITA) [facility] results reported in Eastern Time. [facility] Clinical Information:SRC :Blood, venous*Venipunc ture ? [facility] Source of Specimen:Blood, venous*Venipunc Lab Interpretation Abnormal (test code = 92464-0) [facility] [id number] 00:47:44 No acute intracranial abnormality. Preliminary Report [...] no acute intracranial hemorrhage or significant mass effect.Noparenchymal attenuation abnormality. The saldana-white matter differentiationis preserved. [...] differentiationis preserved. Intracranial atherosclerosis.The mastoid air cells andvisualized paranasal air sinuses are clear. Thecalvarium and central skull base are unremarkable. Senescent calcificationsof the globes.IMPRESSIONNo acute intracranial abnormality.Preliminary Report Dictated by Resident: Opal Alvarado MD., have reviewed this study and agree with theabove report.[facility]. METABOLIC PANEL (62925)2020-01-19 00:02:00 Test Item Value Reference Range Interpretation Comments NA (test code = 138 mmol/L 135-145 2184434564) K (test code = 4.3 mmol/L 3.5-5 5056732279) CL (test code = 102 mmol/L 98-108 3261322614) CO2 TOTAL (test code = 27 mmol/L 23-31 0182151255) AGAP (test code = 2-16 0298555619) BUN (test code = 18 mg/dL 7-23 4774228789) GLUCOSE (test code = 294 mg/dL 70-110 H 0857985751) CREATININE (test code = 0.71 mg/dL 0.5-1.04 3288337407) TOTAL BILI (test code = 0.4 mg/dL 0.1-1.5 0483559006) CALCIUM (test code = 10.4 mg/dL 8.6-10.6 4441549566) T PROTEIN (test code = 7.7 g/dL 6.3-8.2 7503600561) ALBUMIN (test code = 4.6 g/dL 3.5-5 7566080384) ALK PHOS (test code = 73 U/L 34-122 5104039039) ALTv (test code = 26 U/L 5-35 1742-6) AST(SGOT) (test code = 29 U/L 13-40 3632765762) eGFR Calculation mL/min/1.73m2 (Non-) (test code = 9228340876) eGFR Calculation mL/min/1.73m2 () (test code = 9920399047) FELICITA (test code = FELICITA) Association of [...] tests). Lab Interpretation Abnormal (test code = 76120-5) [facility] WITH [id number] 23:54:00 Test Item Value Reference Range Interpretation Comments WBC (test code = See_Comment [Automated message] 6690-2) The system [employer] generated this result transmitted ref erence range: 4.30 - 1 1.10 10*3/?L. The re ference range was not u sed to interpret this result as normal/abnor mal. RBC (test code = See_Comment [Automated message] 789-8) The system [employer] generated this result transmitted ref erence range: [...] RDW-SD (test code 40.7 fL 39-49.9 = 93753-5) RDW-CV (test code 13.1 % 12-15.5 = 788-0) PLT (test code = See_Comment [Automated message] 777-3) The system [employer] generated this result transmitted ref erence range: 166 - 35 8 10*3/?L. The re ference range was not u sed to interpret this result as normal/abnor mal. MPV (test code = 10.2 fL 9.5-12.9 33344-5) NRBC/100 WBC (test See_Comment [Automat ed message] code = 3783171451) The [employer] which generated this result transmitted ref erence range: 0.0 - 10 .0 /100 WBCs. The refer ence range was not u sed to interpret this result as normal/abnor mal. NRBC x10^3 (test <0.01 See_Comment [Automated message] code = 6211012039) The syste m which generated this result transmitted ref erence range: 10*3/?L. The reference range was not used to interpr et this result as normal/abnormal . GRAN MAT (NEUT) % 51.4 % (test code = 770-8) IMM GRAN % (test 0.70 % code = [id number]) LYMPH % (test code 33.2 % = 736-9) MONO % (test code 9.0 % = 5905-5) EOS % (test code = 4.8 % 713-8) BASO % (test code 0.9 % = 706-2) GRAN MAT 2.91 10*3/uL 1.88-7.09 x10^3(ANC) (test code = [id number]) IMM GRAN x10^3 0.04 10*3/uL 0-0.06 (test code = [id number]) LYMPH x10^3 (test 1.88 10*3/uL 1.32-3.29 code = 731-0) MONO x10^3 (test 0.51 10*3/uL 0.33-0.92 code = 742-7) EOS x10^3 (test 0.27 10*3/uL 0.03-0.39 code = 711-2) BASO x10^3 (test 0.05 10*3/uL 0.01-0.07 code = 704-7) [facility] GLUCOSE (AUTOMATED)2019-10-14 16:44:00 Test Item Value Reference Range Interpretation Comments POCT GLU (test code = [id number]) 331 mg/dL 70-110 H Lab Interpretation (test code = Abnormal 01510-9) [facility] GLUCOSE (AUTOMATED)2019-10-14 13:19:00 Test Item Value Reference Range Interpretation Comments POCT GLU (test code = 8017960427) 237 mg/dL 70-110 H Lab Interpretation (test code = Abnormal 76764-5) [facility] Metabolic Panel (NA, K, CL, CO2, GLUCOSE, BUN, CREATININE, CA)2019-10-14 12:35:00 Test Item Value Reference Range Interpretation Comments NA (test code = 135 mmol/L 135-145 1387081167) K (test code = 4.0 mmol/L 3.5-5 1421357787) CL (test code = 102 mmol/L 98-108 6119213611) CO2 TOTAL (test code = 26 mmol/L 23-31 5494674849) AGAP (test code = 2-16 1069206831) BUN (test code = 19 mg/dL 7-23 9109266458) GLUCOSE (test code = 269 mg/dL 70-110 H 1954766296) CREATININE (test code = 0.70 mg/dL 0.5-1.04 0881595462) CALCIUM (test code = 9.4 mg/dL 8.6-10.6 2951881352) eGFR Calculation mL/min/1.73m2 (Non-) (test code = 0011746279) eGFR Calculation mL/min/1.73m2 () (test code = 9944972983) FELICITA (test code = FELICITA) Association of [...] tests). Lab Interpretation Abnormal (test code = 63160-2) [facility] [place], [place]LIP[place]08 12:35:00 Test Item Value Reference Range Interpretation Comments LIPASE (test code = 9562582000) 158 U/L 0-220 Lab Interpretation (test code = Normal 83549-4) [facility] [place], TXHEPATIC FUNCTION PANEL (76520) (ALB,T.PRO,BILI T,BU/BC,ALT,AST,ALK PHOS)2019-10-14 12:35:00 Test Item Value Reference Range Interpretation Comments TOTAL BILI (test code = 2295404864) 0.4 mg/dL 0.1-1.1 BILI UNCON (test code = 3592899761) 0.5 mg/dL 0.1-1.1 BILI CONJ (test code = 9473512156) 0.0 mg/dL 0-0.3 T PROTEIN (test code = 8312572652) 7.3 g/dL 6.3-8.2 ALBUMIN (test code = 6170750609) 4.1 g/dL 3.5-5 ALK PHOS (test code = 4094274216) 46 U/L 34-122 ALTv (test code = 1742-6) 45 U/L 5-35 H AST(SGOT) (test code = 7143560485) 43 U/L 13-40 H Lab Interpretation (test code = Abnormal 57612-0) [facility] [place], [place]CBC with [id number] 12:26:00 Test Item Value Reference Range Interpretation Comments WBC (test code = See_Comment [Automated 1602-2) message] The sy stem which generated this result transmitted reference range : 4.30 - 11.10 10*3/?L. The reference range was not used to interpret this result as normal/abnormal . RBC (test code = See_Comment [Automated 434-8) message] The sy stem which generated this [...] RDW-SD (test code = 41.1 fL 39-49.9 57809-8) RDW-CV (test code = 13.1 % 12-15.5 788-0) PLT (test code = See_Comment [Automated 777-3) message] The sy stem which generated this result transmitted reference range : 166 - 358 10*3/ ?L. The reference r liya was not used to interpret this result as normal/abnormal . MPV (test code = 10.7 fL 9.5-12.9 80470-1) NRBC/100 WBC (test See_Comment [Automat ed code = 5921367541) message] The system which generated this result transmitted reference range : 0.0 - 10.0 /100 WBCs. The refer ence range was not u sed to interpret th is result as normal/abnormal . NRBC x10^3 (test code <0.01 See_Comment [Auto mated = 9050808979) message] The s ystem which generated this result transmitted reference range : 10*3/?L. The reference range was not used to interpret this result as normal/abnormal . GRAN MAT (NEUT) % 74.5 % (test code = 770-8) IMM GRAN % (test code 0.30 % = 1816873427) LYMPH % (test code = 16.3 % 736-9) MONO % (test code = 8.8 % 5905-5) EOS % (test code = 0.0 % 713-8) BASO % (test code = 0.1 % 706-2) GRAN MAT x10^3(ANC) 5.79 10*3/uL 1.88-7.09 (test code = 6553918926) IMM GRAN x10^3 (test <0.03 0-0.06 code = 1765703458) LYMPH x10^3 (test code 1.27 10*3/uL 1.32-3.29 L = 731-0) MONO x10^3 (test code 0.68 10*3/uL 0.33-0.92 = 742-7) EOS x10^3 (test code = <0.03 0.03-0.39 L 711-2) BASO x10^3 (test code <0.03 0.01-0.07 = 704-7) Lab Interpretation Abnormal (test code = 53594-1) [facility] GLUCOSE (AUTOMATED)2019-10-14 06:22:00 Test Item Value Reference Range Interpretation Comments POCT GLU (test code = 9855056483) 328 mg/dL 70-110 H Lab Interpretation (test code = Abnormal 94686-7) [facility] GLUCOSE (AUTOMATED)2019-10-14 01:39:00 Test Item Value Reference Range Interpretation Comments POCT GLU (test code = 424 mg/dL 70-110 H Notifi ed Provider 8025965160) Lab Interpretation (test Abnormal code = 15335-4) [facility] GLUCOSE (AUTOMATED)2019-10-13 21:45:00 Test Item Value Reference Range Interpretation Comments POCT GLU (test code = 7492551030) 282 mg/dL 70-110 H Lab Interpretation (test code = Abnormal 94425-7) [facility] [place], TXFL TIME OR (NON-REPORTABLE)2019-10-13 15:31:01 These images do not require a Radiology diagnostic report.[facility] GLUCOSE (AUTOMATED)2019-10-13 13:05:00 Test Item Value Reference Range Interpretation Comments POCT GLU (test code = 2306685940) 167 mg/dL 70-110 H Lab Interpretation (test code = Abnormal 88715-6) [facility] [place], TXCOMP. METABOLIC PANEL (10936)2019-10-13 12:42:00 Test Item Value Reference Range Interpretation Comments NA (test code = 137 mmol/L 135-145 2567419782) K (test code = 4.0 mmol/L 3.5-5 6648171989) CL (test code = 107 mmol/L 98-108 2860474687) CO2 TOTAL (test code = 25 mmol/L 23-31 5805293986) AGAP (test code = 2-16 7587221808) BUN (test code = 11 mg/dL 7-23 9338704827) GLUCOSE (test code = 154 mg/dL 70-110 H 8388606546) CREATININE (test code = 0.56 mg/dL 0.5-1.04 2504361374) TOTAL BILI (test code = 0.3 mg/dL 0.1-1.9 6506690621) CALCIUM (test code = 9.1 mg/dL 8.6-10.6 4487167112) T PROTEIN (test code = 6.5 g/dL 6.3-8.2 7925789100) ALBUMIN (test code = 3.6 g/dL 3.5-5 6852931046) ALK PHOS (test code = 40 U/L 34-122 3063066803) ALTv (test code = 24 U/L 5-35 1742-6) AST(SGOT) (test code = 31 U/L 13-40 5506767108) eGFR Calculation mL/min/1.73m2 (Non-) (test code = 0144354366) eGFR Calculation mL/min/1.73m2 () (test code = 9321112035) FELICITA (test code = FELICITA) Association of [...] tests). Lab Interpretation Abnormal (test code = 03812-2) [facility] [place], [place]LIP[place]07 12:41:00 Test Item Value Reference Range Interpretation Comments LIPASE (test code = 5881584227) 130 U/L 0-220 Lab Interpretation (test code = Normal 86028-0) [facility] [place], [place]CBC with [id number] 12:16:00 Test Item Value Reference Range Interpretation [...] RDW-SD (test code = 43.5 fL 39-49.9 98332-7) RDW-CV (test code = 13.2 % 12-15.5 788-0) PLT (test code = See_Comment [Automated 777-3) message] The sy stem which generated this result transmitted reference range : 166 - 358 10*3/ ?L. The reference r liya was not used to interpret this result as normal/abnormal . MPV (test code = 10.2 fL 9.5-12.9 44079-2) NRBC/100 WBC (test See_Comment [Automat ed code = 8456341266) message] The system which generated this result transmitted reference range : 0.0 - 10.0 /100 WBCs. The refer ence range was not u sed to interpret th is result as normal/abnormal . NRBC x10^3 (test code <0.01 See_Comment [Auto mated = 1122112472) message] The s ystem which generated this result transmitted reference range : 10*3/?L. The reference range was not used to interpret this result as normal/abnormal . GRAN MAT (NEUT) % 47.5 % (test code = 770-8) IMM GRAN % (test code 0.20 % = 3054321457) LYMPH % (test code = 36.4 % 736-9) MONO % (test code = 10.3 % 5905-5) EOS % (test code = 4.9 % 713-8) BASO % (test code = 0.7 % 706-2) GRAN MAT x10^3(ANC) 2.02 10*3/uL 1.88-7.09 (test code = 7902675720) IMM GRAN x10^3 (test <0.03 0-0.06 code = 9806264728) LYMPH x10^3 (test code 1.55 10*3/uL 1.32-3.29 = 731-0) MONO x10^3 (test code 0.44 10*3/uL 0.33-0.92 = 742-7) EOS x10^3 (test code = 0.21 10*3/uL 0.03-0.39 711-2) BASO x10^3 (test code 0.03 10*3/uL 0.01-0.07 = 704-7) Lab Interpretation Abnormal (test code = 24527-6) [facility] [place], TXLOW-DENSITY LIPOPROTEIN, [id number] 08:29:00 Test Item Value Reference Range Interpretation Comments dLDL Chol (test code = 40693-2) 76 mg/dL <130 Lab Interpretation (test code = Normal 04329-4) [facility] [place], TXPOCT GLUCOSE (AUTOMATED)2019-10-12 22:49:00 Test Item Value Reference Range Interpretation Comments POCT GLU (test code = 4007649766) 249 mg/dL 70-110 H Lab Interpretation (test code = Abnormal 28263-4) [facility] [place], TXLIPID PANEL (46544)(TOTAL CHOLESTEROL, TRIGLYCERIDES, HDL)2019-10-12 21:11:00 Test Item Value Reference Range Interpretation Comments CHOL (test code = 172 mg/dL 120-200 1271858809) HDL (test code = 32 mg/dL >50 L 3029693665) HDLC RATIO (test code = See_Comment H [Au tomated message] 2205078474) The system [employer] generated this result transmitted ref erence range: <=4.5. T he reference range was not used to int erpret this result as normal/abnormal . TRIG (test code = 491 mg/dL 30-170 H 7820748716) LDL CHOL (test code = Unable to calculate 10448-4) LDL due to elev ated triglyceride le tatyana greater than 40 0 mg/dL. VLDL (test code = 98 mg/dL 5-60 H 4089552007) Lab Interpretation Abnormal (test code = 25030-2) [facility] GLUCOSE (AUTOMATED)2019-10-12 21:05:00 Test Item Value Reference Range Interpretation Comments POCT GLU (test code = 6048787963) 180 mg/dL 70-110 H Lab Interpretation (test code = Abnormal 05765-7) [facility] GLUCOSE (AUTOMATED)2019-10-12 16:39:00 Test Item Value Reference Range Interpretation Comments POCT GLU (test code = 1588482396) 212 mg/dL 70-110 H Lab Interpretation (test code = Abnormal 29680-4) [facility] [place], TXUS GALL [id number] 14:16:58HISTORY: Gallstones, pancreatitis. TECHNIQUE: Gallbladder is evaluated [...] No free fluiddetected in pericholecystic space. Common hepaticduct is 4.1 mm. Thepancreas is completely obscured due to gas. Hepatic and portal venoussystem appeared patent. CONCLUSION: Chronic cholecystitis with single mobile gallstone. [facility], Radiant Results Inft User - 10/12/2019 9:18 AM CDTHISTORY: Gallstones, pancreatitis.TECHNIQUE: Gallbladder is evaluated in multiple planes with the patient indifferent positions. Color imaging is utilized.FINDINGS: Comparison is made with yesterday night CT studies.Gallbladder [...] CONCLUSION: Chronic cholecystitis with single mobile gallstone. [facility] [place], TXCT ABDOMEN PELVIS W [id number] 13:04:17 1. ?Minimal fullness of the pancreatic [...] intrathoracic findings. LIVER: No focal hepatic lesions. ?Vzpe760ko contour. GALLBLADDER AND BILIARY TREE: Partially decompressed gallbladder containingcholelithiasis. No pericholecystic inflammatory change or free fluid. Nobiliary ductaldilation. ? SPLEEN: No splenomegaly. Minimal fullness of [...] are too small tocharacterize. No hydronephrosis. PERITONEUM ANDRETROPERITONEUM: No free air or fluid. LYMPH NODES: No lymphadenopathy. GI TRACT: No dilation or wall thickening. Normal appendix (27:103). Smallsliding-type hiatal hernia. PELVIS/BLADDER: The uterus within normal limits. Unremarkable left ovary. 1cm right ovarian dominant follicle. The urinary bladder is mildly to moderately distended and containsopacified ureteral jets. Unremarkable urinary bladder horta. VESSELS: Background of moderate calcified and noncalcified aortoiliacatherosclerosis. A shortsegment of infrarenal abdominal aorta demonstratesmild to moderate [...] spinalcanal stenosis at these levels. [facility], Radiant Results Inft User - 10/12/2019 8:05 AM CDTEXAM: CT ABDOMEN AND PELVIS WITH CONTRASTHISTORY: Epigastric pain. Concern for abdominal infection.COMPARISON: None.TECHNIQUE AND FINDINGS: Contiguous axial imaging from the level of the lungbases through the proximal femurs was performed after the uncomplicatedadministration of intravenous contrast and oral Omnipaque contrast. Coronaland sagittal reconstructions were obtained. Auto mA and/or iterativereconstruction were used to reduce radiation dose.FINDINGS:LOWER THO RAX: Please refer to the concurrently obtained, separatelydictated, CT thorax report for detailed intrathoracic findings.LIVER: No focal hepatic lesions. Cspt079ju contour.GALLBLADDER AND BILIARY TREE:Partially decompressed gallbladder containingcholelithiasis. No pericholecystic inflammatory change or free fluid. Nobiliary ductal dilation. SPLEEN: No splenomegaly. Minimal fullness of the pancreatichead withoutdiscernible pancreatic or peripancreatic inflammatory change or stranding.No discerniblepancreatic mass.PANCREAS: No ductal dilation or masses.ADRENAL GLANDS: [...] wall thickening. Normal appendix (27:103). Smallsliding-type hiatal hernia.PELVIS/SEJAL DDER: The uterus within normal limits. Unremarkable left ovary. 1cm right ovarian dominant follicle.The urinary bladder is mildly to moderately distended and containsopacified ureteral jets. Unremarkable urinary bladder horta.VESSELS: Background of moderate calcified and noncalcified aortoiliacatherosclerosis. A short segment of infrarenal abdominal aorta demonstratesmild to moderate luminal stenosissecondary to noncalcified atheroscleroticplaque (most prominent at 27:72). [...] head may be related to subclinicalinflammation. However, thereis no discernible pancreatic or peripancreaticinflammatory change or [...] complex spanning T12-L3 with resultant mild to mode ratespinal canal stenoses at these levels.Preliminary Report Dictated by Resident: Briseyda Butterfield MD., have reviewed this study and agree with theabove report.[facility] [place], TXCT ANGIOGRAM [id number] 12:37:46 1. ?No evidence of a pulmonary [...] 10/12/2019 7:42 AM CDTPROCEDURE: CT ANGIO CHEST WITHCONTRAST - PE PROTOCOLCLINICAL INDICATION: Chest pain.COMPARISON: None.TECHNIQUE: [...] pleural effusion, thickening or pneumothorax.Thoracic aorta and greatvessels: Bovine arch anatomy. Minimal calcifiedand noncalcified atherosclerosis of the aortic arch and thoracic aorta.Circumferential atherosclerotic plaque at the origin of left subclavianartery without significant luminal narrowing. No dissection or aneurysm.Heart and pericardium: Mild coronary artery calcifications. Calcificationsof the aortic root. Unremarkable cardiac morphology and pericardium.Lymph nodes: No enlarged thoracic lymph nodes.Mediastinum: Unremarkable.Thoracic spine and chest wall: Mild Spondylosis. Normal thoracic vertebralbody heights. Left shoulder osteoarthrosis.Visualized upper abdomen: Please refer to the concurrently obtained,separately dictated, CT abdomen/pelvis report for detailed intra- abdominalfindings. . IMPRESSION1. No evidence of a pulmonary embolism to the level of the subsegmentalbranches. No dissection or aneurysm.2. A 0.7 cm left upper lobe and a 0.8 cm right upper lobe groundglassnodules may be related to an infectious/inflammatory process. Neoplasticprocess is not ruled out. A follow up CT thorax in 6 months is recommended. Preliminary Report Dictated by Resident: Bentley Butterfield MD., have reviewed this study and agree with theabove report.[facility] 12:12:00 Test Item Value Reference Range Interpretation Comments TROPONIN I (test <0.012 See_Comment [Automated code = 2510088453) message] The system which generated this result [...] ? Lab Interpretation Normal (test code = 77879-5) [facility] [place], TXGlycosylated Hemoglobin (A1C)2019-10-12 12:05:00 Test Item Value Reference Range Interpretation Comments HGB A1C (test code = 9.0 % 4-6 H 4548-4) FELICITA (test code = FELICITA) %A1C (NGSP) Interpretation (ADA)4.8-5.6 ? ? Normal or (Non-Diabetic Range)5.7-6.4 ? ? Increased Risk (Pre-Diabetic)>6.5 ?Diabetes Indicated Lab Interpretation Abnormal (test code = 74752-9) [facility] [place], [place]LIPASE2020-08-06 12:01:00 Test Item Value Reference Range Interpretation Comments LIPASE (test code = 9008872872) 500 U/L 0-220 H Lab Interpretation (test code = Abnormal 38187-5) [facility] [place], TXPOCT GLUCOSE (AUTOMATED)2019-10-12 10:34:00 Test Item Value Reference Range Interpretation Comments POCT GLU (test code = 9313540134) 251 mg/dL 70-110 H Lab Interpretation (test code = Abnormal 51023-1) [facility] [place], TXXR CHEST 1 VW [id number] 05:33:21 No acute intrathoracic abnormality, specifically no detectable radiographicfindings to suggest COVID-19 pneumonia. Disclaimer: Generally, the findings on chest imaging in COVID-19 are notspecific, andoverlap with other infections, including influenza, H1N1,SARS and MERS.According to the Centers for Disease Control (CDC) and recent statement ofthe [employer], viral testing remains the only specificmethod of diagnosis. Confirmation with the viral test is required, even ifradiologic findings are suggestive of COVID-[address]. Preliminary Report Dictated by Resident: Ming Kya Portillo MD., have reviewed this study and agree [...] Disease Control (CDC) and recent statement ofthe [employer], viral testing remains the only specificmethod of diagnosis. Confirmation with the viral test is required, even ifradiologic findings are suggestive of COVID-[address] Preliminary Report Dictated by Resident: Ming Sy, Kya Velazquez MD., have reviewed this study and agree with the abovereport.[facility] [place], [place] [id number] 03:07:00 Test Item Value Reference Range Interpretation Comments LIPASE (test code = 5402864644) 4504 U/L 0-220 H Lab Interpretation (test code = Abnormal 62234-3) [facility] [place], TXTROPONIN [id number] 02:38:00 Test Item Value Reference Range Interpretation Comments TROPONIN I (test <0.012 See_Comment [Automated code = 8119101669) message] The system which generated this result [...] ? Lab Interpretation Normal (test code = 71304-1) [facility] [place], TXN-TERMINAL [id number] 02:35:00 Test Item Value Reference Range Interpretation Comments NT-proBNP (test code 115 pg/mL See_Comment [Autom ated = 5240918468) message] The system which generated this result transmitted reference range : <=125. The reference range was not used to interpret this result as normal/abnormal . FELICITA (test code = FELICITA) Biotin has been reported to cause a negative bias, interpret results relative to patient's use of biotin. Lab Interpretation Normal (test code = 05294-7) [facility] [place], TXCOMP. METABOLIC PANEL (08955)2019-10-12 02:26:00 Test Item Value Reference Range Interpretation Comments NA (test code = 134 mmol/L 135-145 L 0938832572) K (test code = 4.4 mmol/L 3.5-5 3013623240) CL (test code = 100 mmol/L 98-108 2437328683) CO2 TOTAL (test code = 24 mmol/L 23-31 9705458913) AGAP (test code = 2-16 7817160745) BUN (test code = 28 mg/dL 7-23 H 7628123482) GLUCOSE (test code = 253 mg/dL 70-110 H 5125597104) CREATININE (test code = 0.88 mg/dL 0.5-1.04 2045387240) TOTAL BILI (test code = 0.2 mg/dL 0.1-1.9 1554015494) CALCIUM (test code = 10.5 mg/dL 8.6-10.6 9655209212) T PROTEIN (test code = 7.8 g/dL 6.3-8.2 6399721703) ALBUMIN (test code = 4.5 g/dL 3.5-5 1001874235) ALK PHOS (test code = 60 U/L 34-122 9058924220) ALTv (test code = 19 U/L 5-35 1742-6) AST(SGOT) (test code = 22 U/L 13-40 1349422937) eGFR Calculation mL/min/1.73m2 (Non-) (test code = 5839524492) eGFR Calculation mL/min/1.73m2 () (test code = 1259520613) FELICITA (test code = FELICITA) Association of [...] tests). Lab Interpretation Abnormal (test code = 31428-0) [facility] [place], TXCOVID-19 (ID NOW RAPID TESTING)2019-10-12 02:24:00 Test Item Value Reference Range Interpretation Comments SARS-CoV-2 Rapid ID NOW Not Detected Not Detected (test code = 85550-0) FELICITA (test code = FELICITA) ID NOW COVID-19 Assay is an isothermal nucleic acid amplification test intended for the qualitative detection of nucleic acid from SARS-CoV-2 viral RNA in nasopharyngeal (CRACKING MACHINE OPERATOR) specimens. It is used under Emergency Use [...] indicated. Lab Interpretation Normal (test code = 18091-2) [facility] [place], TXPROTHROMBIN TIME / [id number] 02:11:00 Test Item Value Reference Range Interpretation Comments PROTIME PATIENT (test See_Comment [Auto mated message] code = 5964-2) The system [employer] generated this result transmitted ref erence range: 12.0 - 1 4.7 Seconds. The re ference range was not u sed to interpret this result as normal/abnor mal. INR (test code = 6301-6) Nor mal INR <1.1; Warfarin Therap eutic range 2.0 to 3. 0 or 2.5 to 3.5, dep ending upon the indica tions. Lab Interpretation (test Normal code = 34472-8) [facility] [place], TXCBC WITH [id number] 02:04:00 Test Item Value Reference Range Interpretation Comments WBC (test code = See_Comment [Automated message] 6690-2) The system [employer] h generated this result transmitted ref erence range: 4.30 - 1 1.10 10*3/?L. The re ference range was not u sed to interpret this result as normal/abnor mal. RBC (test code = See_Comment [Automated message] 679-8) The system [employer] generated this result transmitted ref erence range: [...] RDW-SD (test code 40.9 fL 39-49.9 = 74138-2) RDW-CV (test code 12.9 % 12-15.5 = 788-0) PLT (test code = See_Comment [Automated message] 777-3) The system [employer] generated this result transmitted ref erence range: 166 - 35 8 10*3/?L. The re ference range was not u sed to interpret this result as normal/abnor mal. MPV (test code = 10.2 fL 9.5-12.9 75742-6) NRBC/100 WBC (test See_Comment [Automat ed message] code = 6645071863) The syste [employer] which generated this result transmitted ref erence range: 0.0 - 10 .0 /100 WBCs. The refer ence range was not u sed to interpret this result as normal/abnor mal. NRBC x10^3 (test <0.01 See_Comment [Automated message] code = 3972485477) The syste m which generated this result transmitted ref erence range: 10*3/?L. The reference range was not used to interpr et this result as normal/abnormal . GRAN MAT (NEUT) % 46.5 % (test code = 770-8) IMM GRAN % (test 0.50 % code = 9811567511) LYMPH % (test code 38.7 % = 736-9) MONO % (test code 9.3 % = 5905-5) EOS % (test code = 4.1 % 713-8) BASO % (test code 0.9 % = 706-2) GRAN MAT 2.71 10*3/uL 1.88-7.09 x10^3(ANC) (test code = 7762510341) IMM GRAN x10^3 0.03 10*3/uL 0-0.06 (test code = 3245532048) LYMPH x10^3 (test 2.25 10*3/uL 1.32-3.29 code = 731-0) MONO x10^3 (test 0.54 10*3/uL 0.33-0.92 code = 742-7) EOS x10^3 (test 0.24 10*3/uL 0.03-0.39 code = 711-2) BASO x10^3 (test 0.05 10*3/uL 0.01-0.07 code = 704-7) [facility] [place]"
[2022-04-14 17:21] LABS: Absolute Lymphocytes (CBC) 1.7 K/uL (0.7-4.9); Hematocrit 34.6 % (36.0-45.0); Lymphocytes % 32.7 % (15.3-44.8); MCV 87.7 fL (80-100); MPV 8.6 fL (7.6-11.3); RBC Red Blood Cell Count 3.95 M/uL (3.86-4.86)
[2022-04-14] MEDS ORDERED: ONDANSETRON 4 MG/2 ML VIAL ONE (17:27)
[2022-04-14] MEDS ORDERED: MORPHINE 2 MG/ML SYR ONE (17:27)
[2022-04-14 17:35] LABS: Potassium 4.3 mmol/L (3.5-5.1); Troponin High Sensitivity 7.6 pg/mL (<58.9)
--- NOTE | 2022-04-14 18:16 | RAD REPORT ---
EXAM DESCRIPTION: RAD - Chest Single View - 04/14/2022 6:04 pm CLINICAL HISTORY: CHEST PAIN Chest pain. COMPARISON: Abdomen 1 View (KUB) dated 12/08/2021; Chest Pa And Lat (2 Views) dated 11/21/2021; Abdome n 1 View (KUB) dated 05/23/2021; Abdomen 1 View (KUB) dated 05/15/2021 FINDINGS: Portable technique limits examination quality. The lungs are grossly clear. The heart is normal in size. No displaced fractures. IMPRESSION: No acute intrathoracic process suspected.
--- NOTE | 2022-04-14 19:10 | RAD REPORT ---
EXAM DESCRIPTION: CT - Chest For Pe Angio - 04/14/2022 6:56 pm CLINICAL HISTORY: Chest pain. CHEST PAIN COMPARISON: CTANGIO CHEST FOR PE dated 05/06/2015 TECHNIQUE: CT angiogram of the pulmonary arteries was performed with MIP. All CT scans are performed using dose optimization technique as appropriate and may include automated exposure control or mA/KV adjustment according to patient size. FINDINGS: No evidence of pulmonary thromboembolism. No acute aortic finding demonstrated. Ground-glass nodule is seen left upper lobe measuring 5 mm. Ground-glass nodule is present posterior right upper lobe 6 mm. No focal infiltrate is seen. Linear atelectasis present in the left lung base. No significant pericardial or pleural fluid. Mild thoracic spondylosis. IMPRESSION: No evidence of pulmonary thromboembolism. No acute lung findings. Small ground-glass nodules in the upper lobes. Six-month follow-up CT chest surveillance study recomm ended.
--- NOTE | 2022-04-14 19:11 | RAD REPORT ---
EXAM DESCRIPTION: CTAbdomen Pelvis W Contrast - 04/14/2022 6:57 pm CLINICAL HISTORY: Abdominal pain. ABD PAIN COMPARISON: Abdomen Pelvis W Contrast dated 03/29/2021; Abdomen Pelvis W Contrast dated 11/17/2016 TECHNIQUE: Biphasic CT imaging of the abdomen and pelvis was performed with 100 ml non-ionic IV cont rast. All CT scans are performed using dose optimization technique as appropriate and may include automated exposure control or mA/KV adjustment according to patient size. FINDINGS: The lung bases are clear. The liver, spleen, pancreas, adrenal glands and left kidney are within normal limits. Inferior right nephrolithiasis, largest measuring 11 mm. No bowel obstruction, free air, free fluid or abscess. There is significant fecal retention throughou t the colon. The appendix is normal. No evidence of significant lymphadenopathy. Mild lumbar degenerative changes. IMPRESSION: No acute intra-abdominal or pelvic finding. Inferior right nephrolithiasis. Significant fecal retention throughout the colon.
--- NOTE | 2022-04-14 19:27 | EDPHYS ---
Physician Documentation [facility] Name: Rena Reddy Age: 76 yrs Sex: Female : 1945 Arrival Date: 04/14/2022 Time: 16:[address] Private MD: Kenan Velazquez ED Physician Reji Quintanilla HPI: 04/14 16:46 This 76 yrs old Female presents to ER via Ambulatory with complaints of Chest jmm Pain. 16:46 The patient or guardian reports chest pain that is located primarily in the substernal jmm area. Onset: gradually, at 15:00. The pain radiates to Associated signs and symptoms: Pertinent negatives: lower extremity pain, lower extremity swelling, shortness of breath, syncope, vomiting. The chest pain is described as aching, a pressure. Duration: The patient or guardian reports a single episode, that is still ongoing. Modifying factors: The symptoms are alleviated by nothing. the symptoms are aggravated by nothing. This is a 76 year old female with a history of dm, hlp, htn, that presents to the ED with complaints of substernal chest pain which radiates to her back. Daughter states patient had a similar presentation with a previous DC. . Historical: - Allergies: 16:53 NKDA; ld1 - PMHx: 16:53 Diabetes - NIDDM; Hyperlipidemia; Hypertension; Myocardial infarction; Kidney stones; ld1 - PSHx: 16:53 3 Heart stents; Thyroidectomy; Cholecystectomy; ld1 - Immunization history:: Adult Immunizations up to date, Client reports receiving the 2nd dose of the Covid vaccine. - Social history:: Smoking status: Patient denies any tobacco usage or history of. Patient/guardian denies using alcohol. ROS: 16:46 Constitutional: Negative for fever, chills, and weight loss. jmm 16:46 Cardiovascular: Positive for chest pain. 16:46 Back: Positive for radiated pain. 16:46 All other systems are negative. Exam: 16:46 Constitutional: This is a well developed, well nourished patient who is awake, alert, jmm and in no acute distress. Head/Face: atraumatic. Eyes: EOMI, no conjunctival erythema appreciated ENT: Moist Mucus Membranes Neck: Trachea midline, Supple Chest/axilla: Normal chest wall appearance and motion. Cardiovascular: Regular rate and rhythm. No edema appreciated Respiratory: Normal respirations, no respiratory distress appreciated Abdomen/GI: Non distended Back: Normal ROM Skin: General appearance color normal MS/ Extremity: Moves all extremities, no obvious deformities appreciated, no edema noted to the lower extremities Neuro: Awake and alert Psych: Behavior is normal, Mood is normal, Patient is cooperative and pleasant 19:31 ECG was reviewed by the Attending Physician. [facility] Vital Signs: 16:53 BP 153 / 68; Pulse 82; Resp 18; Temp 98.1(TE); Pulse Ox 100% on R/A; Weight 61.69 kg; ld1 Height 5 ft. 2 in. (157.48 cm); Pain 9/10; 18:17 BP 120 / 57; Pulse 61; Pulse Ox 98% on R/A; ap3 19:47 BP 114 / 48; Pulse 78; Resp 19; Pulse Ox 97% on R/A; kd3 22:23 BP 122 / 51; Pulse 58; Resp 19; Pulse Ox 94% on R/A; kd3 16:53 Body Mass Index 24.87 (61.69 kg, 157.48 cm) ld1 MDM: 17:02 Patient medically screened. [facility] 19:23 Data reviewed: vital signs, nurses notes. [facility] 19:23 The patient was given aspirin in the Emergency Department. Consideration of [facility] Admission/Observation Patient was admitted/placed on observation. Management of patient was discussed with the following: Hospitalist: Alix Huntley PA-C. I considered the following discharge prescriptions or medication management in the emergency department Medications were administered in the Emergency Department. See MAR. Historians other than the Patient: Daughter. Counseling: I had a detailed discussion with the patient and/or guardian regarding: the historical points, exam findings, and any diagnostic results supporting the discharge/admit diagnosis, lab results, radiology results, the need for further work-up and treatment in the hospital. ED course: Alix Huntley PA-C accepted the patient to Dr. Diaz's service. . 04/14 16:56 Order name: Basic Metabolic Panel; Complete Time: 17:37 ld1 04/14 16:56 Order name: CBC with Diff; Complete Time: 17:39 ld1 04/14 16:56 Order name: D-Dimer; Complete Time: 17:39 ld1 04/14 16:56 Order name: Troponin HS; Complete Time: 17:37 [facility] 04/14 17:15 Order name: Lipase; Complete Time: 17:44 [facility] 04/14 19:22 Order name: SARS RAPID; Complete Time: 20:49 [facility] 04/14 16:56 Order name: XRAY Chest (1 view); Complete Time: 18:17 04/14 16:56 Order name: EKG; Complete Time: 16:58 [facility] 04/14 16:56 Order name: Cardiac monitoring; Complete Time: 17:04 04/14 17:40 Order name: CT Chest For PE Angio; Complete Time: 19:13 [facility] 04/14 17:40 Order name: CT Abd/Pelvis - IV Contrast Only; Complete Time: 19:13 [facility] 04/14 16:56 Order name: EKG - Nurse/Tech; Complete Time: 17:04 04/14 16:56 Order name: IV Saline Lock; Complete Time: 17:28 04/14 16:56 Order name: Labs collected and sent; Complete Time: 17:28 [facility] 04/14 16:56 Order name: O2 Per Protocol; Complete Time: 17:04 04/14 16:56 Order name: O2 Sat Monitoring; Complete Time: 17:04 ld1 EC:31 Rate is 72 beats/min. Rhythm is regular. QRS [place] is Normal. [place] interval is normal. QRS jmm interval is normal. QT interval is normal. No Q waves. T waves are Normal. No ST changes noted. Reviewed by me. Administered Medications: 17:28 Drug: morphine 2 mg Route: IVP; Infused Over: 4 mins; Site: right antecubital; ap3 19:48 Follow up: Response: No adverse reaction; Pain is decreased kd3 17:29 Drug: Zofran (Ondansetron) 4 mg Route: IVP; Site: right antecubital; ap3 19:48 Follow up: Response: No adverse reaction; Nausea is decreased kd3 19:46 Drug: Aspirin Chewable Tablet 324 mg Route: PO; kd3 19:48 Follow up: Response: No adverse reaction kd3 Disposition Summary: 04/14/22 19:27 Hospitalization Ordered Hospitalization Status: Observation marissa Provider: Pawan Diaz Location: Telemetry/MedSurg (observation) jmm Condition: Stable jmm Problem: new jmm Symptoms: are unchanged jmm Bed/Room Type: Standard m Room Assignment: 413(04/14/22 22:01) cg Diagnosis - Chest pain, unspecified jmm Forms: - Medication Reconciliation Form jmm - SBAR form jmm Signatures: Dispatcher [employer] Harshad Billy PA PA jmm Garcia, Cindy, RN RN cg Prokisch, Amanda, RN RN [email or web address] Sarah Mederos RN RN ld1 Shabnam Chen RN RN kd3 Kimberly Huntley PAPretty PAPretty sb4 Corrections: (The following items were deleted from the chart) 22:01 19:27 jmm cg
--- NOTE | 2022-04-14 19:27 | ER ---
Nurse's Notes [facility] Name: Rena Reddy Age: 76 yrs Sex: Female : 1945 Arrival Date: 04/14/2022 Time: 16:[address] Private MD: Kenan Velazquez Diagnosis: Chest pain, unspecified Presentation: 04/14 16:53 Chief complaint: Patient states: Chest pain began yesterday radiates to back - today it ld1 intensified. Denies N/V/D. Coronavirus screen: At this time, the client does not indicate any symptoms associated with coronavirus-19. Ebola Screen: No symptoms or risks identified at this time. Initial Sepsis Screen: Does the patient meet any 2 criteria? No. Patient's initial sepsis screen is negative. Does the patient have a suspected source of infection? No. Patient's initial sepsis screen is negative. Risk Assessment: Do you want to hurt yourself or someone else? Patient reports no desire to harm self or others. Onset of symptoms was April 14, 2022 at 16:55. 16:53 Method Of Arrival: Ambulatory ld1 16:53 Acuity: JULES 3 ld1 Triage Assessment: 16:53 General: Appears in no apparent distress. comfortable, Behavior is calm, cooperative, ld1 appropriate for age. Pain: Complains of pain in chest Pain does not radiate. Pain currently is 9 out of 10 on a pain scale. Quality of pain is described as throbbing, Pain began suddenly, Is continuous. EENT: No signs and/or symptoms were reported regarding the EENT system. Neuro: Level of Consciousness is awake, alert, obeys commands, Oriented to person, place, time, situation. Cardiovascular: Reports chest pain, Capillary refill < 3 seconds Patient's skin is warm and dry. Respiratory: Airway is patent Respiratory effort is even, unlabored. GI: Abdomen is flat, non-distended. : No signs and/or symptoms were reported regarding the genitourinary system. Derm: No signs and/or symptoms reported regarding the dermatologic system. Musculoskeletal: No signs and/or symptoms reported regarding the musculoskeletal system. Historical: - Allergies: 16:53 NKDA; ld1 - PMHx: 16:53 Diabetes - NIDDM; Hyperlipidemia; Hypertension; Myocardial infarction; Kidney stones; ld1 - PSHx: 16:53 3 Heart stents; Thyroidectomy; Cholecystectomy; ld1 - Immunization history:: Adult Immunizations up to date, Client reports receiving the 2nd dose of the Covid vaccine. - Social history:: Smoking status: Patient denies any tobacco usage or history of. Patient/guardian denies using alcohol. Screenin:17 [facility] ED Fall Risk Assessment (Adult) History of falling in the last 3 months, ap3 including since admission No falls in past 3 months (0 pts). Abuse screen: Denies threats or abuse. Nutritional screening: No deficits noted. Tuberculosis screening: No symptoms or risk factors identified. Assessment: 19:47 General: Appears in no apparent distress. Behavior is calm, cooperative. Pain: kd3 Complains of pain in chest Pain radiates to posterior chest. Neuro: Level of Consciousness is awake, alert, obeys commands, Oriented to person, place, time, situation. Vital Signs: 16:53 BP 153 / 68; Pulse 82; Resp 18; Temp 98.1(TE); Pulse Ox 100% on R/A; Weight 61.69 kg; ld1 Height 5 ft. 2 in. (157.48 cm); Pain 9/10; 18:17 BP 120 / 57; Pulse 61; Pulse Ox 98% on R/A; ap3 19:47 BP 114 / 48; Pulse 78; Resp 19; Pulse Ox 97% on R/A; kd3 22:23 BP 122 / 51; Pulse 58; Resp 19; Pulse Ox 94% on R/A; kd3 16:53 Body Mass Index 24.87 (61.69 kg, 157.48 cm) ld1 ED Course: 16:51 Patient arrived in ED. as 16:51 Kenan Velazquez DO is Private Physician. as 16:53 Arm band placed on right wrist. ld1 16:55 Triage completed. ld1 16:56 Harshad Strickland PA is PHCP. [facility] 16:56 Reji Quintanilla MD is Attending Physician. [facility] 16:59 Yany Casanova, PADMA is Primary Nurse. ap3 18:06 XRAY Chest (1 view) In Process Unspecified. EDMS 18:18 Patient has correct armband on for positive identification. Bed in low position. Call ap3 light in reach. Side rails up X 1. Adult w/ patient. wool classer on. Pulse ox on. NIBP on. 18:18 No provider procedures requiring assistance completed. Inserted saline lock: 20 gauge ap3 in right antecubital area, using aseptic technique. Patient maintains SpO2 saturation greater than 95% on room air. 18:58 CT Chest For PE Angio In Process Unspecified. EDMS 18:59 CT Abd/Pelvis - IV Contrast Only In Process Unspecified. EDMS 19:22 Primary Nurse role handed off by Yany Casanova RN mw2 19:27 Pawan Diaz is Hospitalizing Provider. [facility] 19:46 SARS RAPID Sent. kd3 19:47 Shabnam Chen, RN is Primary Nurse. kd3 22:23 Patient admitted, IV remains in place. kd3 Administered Medications: 17:28 Drug: morphine 2 mg Route: IVP; Infused Over: 4 mins; Site: right antecubital; ap3 19:48 Follow up: Response: No adverse reaction; Pain is decreased kd3 17:29 Drug: Zofran (Ondansetron) 4 mg Route: IVP; Site: right antecubital; ap3 19:48 Follow up: Response: No adverse reaction; Nausea is decreased kd3 19:46 Drug: Aspirin Chewable Tablet 324 mg Route: PO; kd3 19:48 Follow up: Response: No adverse reaction kd3 Medication: 18:18 VIS not applicable for this client. ap3 Outcome: 19:27 Decision to Hospitalize by Provider. [facility] 22:22 Admitted to Med/surg kd3 22:22 Condition: stable 22:22 Discharge instructions given to patient, family, Instructed on follow up and referral plans. the need for admit. 22:36 Patient left the ED. kd3 Signatures: Dispatcher [employer] EDMS Harshad Strickland PA PA Kerri Vaughan as Yany Casanova, RN RN ap3 Efe Yousif mw2 Sarah Mederos RN RN ld1 Shabnam Chen, PADMA RN kd3 Corrections: (The following items were deleted from the chart) 16:56 16:53 Chief complaint: Patient states: Chest pain began yesterday - today it ld1 intensified. Denies N/V/D ld1
[2022-04-14] MEDS ORDERED: ASPIRIN 81 MG CHEWABLE TABLET ONE (19:45)
--- NOTE | 2022-04-14 20:04 | P.HP ---
Certification for Inpatient Patient admitted to: Observation With expected LOS: <2 Midnights Patient will require the following post-hospital care: None Practitioner: I am a practitioner with admitting privileges, knowledge of patient current condition, hospital course, and medical plan of care. Services: Services provided to patient in accordance with Admission requirements found in Title 42 Section 412.3 of the Code of Federal Regulations Patient History Date of Service: 04/14/22 Reason for admission: Chest Pain History of Present Illness: Patient is a 76-year-old female with past medical history of diabetes mellitus type 2insulin-dependent, hypertension, hyperlipidemia, and CAD who presented to the emergency department with complaints of chest pain. Patient reports has had intermittent chest pain and nausea for the past 24 hours, tightness/sharp radiating to shoulders bilaterally. Her daughter reports she also been experiencing some changes in her breathing, although patient denies any dyspnea. Patient does report that this is how her pain felt with her previous MA. Initial troponin negative, EKG with NSR, ddimer elevated at 961. Chest/abdomen/pelvis CT negative for acute findings. She was given 324 mg aspirin in the emergency department. ED provider wishes to admit patient for observation, for ACS rule out. Allergies No Known Drug Allergies Allergy (Verified 11/21/21 09:36) Unknown Home medications list reviewed: Yes Home Medications: Metformin ER [Glucophage ER*] 1,000 mg PO BID 03/30/14 Clopidogrel Bisulfate [Plavix*] 75 mg PO DAILY 05/06/15 Amlodipine [Norvasc*] 5 mg PO DAILY 11/30/16 Metoprolol Succinate [Toprol Xl*] 100 mg PO DAILY 11/30/16 Celecoxib 1 cap PO BID 03/30/21 Famotidine 1 tab PO BID 03/30/21 Ferrous Sulfate 1 tab PO DAILY 03/30/21 Gabapentin 1 cap PO TID 03/30/21 Insulin Aspart Prot/Insuln Asp [Novolog Mix 70-30 Flexpen] 20 units SQ BID 03/30/21 Lisinopril [Zestril] 20 mg PO DAILY 03/30/21 Pantoprazole [Protonix Tab*] 20 mg PO DAILY 03/30/21 Rosuvastatin Calcium [Crestor] 10 mg PO DAILY 03/30/21 Sennosides [Senna] 1 cap PO BEDTIME 03/30/21 Vitamin D [Drisdol*] 1,000 unit PO DAILY 03/30/21 - Past Medical/Surgical History Diabetic: Yes -: HTN -: IDDM -: MA -: CAD -: GERD -: Hyperlipidemia -: Kidney stone -: thyroidectomy -: Stent in LAD (03/2014) -: Cholecystectomy Psychosocial/ Personal History: Patient lives at home with her daughter. - Family History Father -: Heart disease, Hypertension, Diabetes, Stroke Mother -: Heart disease, Diabetes Sister -: Hypertension, Diabetes, Cancer Notes: breast cancer Brother -: Heart disease, Stroke - Social History Smoking Status: Never smoker Alcohol use: No CD- Drugs: No Caffeine use: No Place of Residence: Home Review of Systems Cardiovascular: Chest Pain Physical Examination - Vital Signs Temperature: 98.1 F Blood Pressure: 114/48 Pulse: 78 Respirations: 19 Pulse Ox (%): 97 - Physical Exam General: Alert, In no apparent distress HEENT: Atraumatic, EOMI, Sclerae nonicteric Neck: Supple, 2+ carotid pulse no bruit, No LAD, Without JVD or thyroid abnormality Respiratory: Clear to auscultation bilaterally, Normal air movement Cardiovascular: Regular rate/rhythm, Normal S1 S2 Gastrointestinal: Normal bowel sounds, No tenderness Musculoskeletal: No tenderness Integumentary: No rashes Neurological: Normal speech, Normal strength at 5/5 x4 extr, Normal tone, Normal affect - Studies Laboratory Data (last 24 hrs) 04/14/22 17:03: Lipase 121 04/14/22 17:03: WBC 5.10, Hgb 11.5 L, Hct 34.6 L, Plt Count 239 04/14/22 17:03: Sodium 141, Potassium 4.3, BUN 22 H, Creatinine 0.94, Glucose 154 H Assessment and Plan - Problems (Diagnosis) (1) Coronary artery disease Current Visit: Yes Status: Acute Qualifiers: Coronary Disease-Associated Artery/Lesion type: [place] artery [place] vs. 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 use Diabetes mellitus complication status: with kidney complications Diabetes mellitus complication detail: with chronic kidney disease Chronic kidney disease stage: stage 2 (mild) Qualified Code(s): E11.22 - Type 2 diabetes mellitus with diabetic chronic kidney disease; N18.2 - Chronic kidney disease, stage 2 (mild); Z79.4 - watermaster (current) use of insulin (3) Hyperlipidemia Current Visit: Yes Status: Chronic Qualifiers: Hyperlipidemia type: unspecified Qualified Code(s): E78.5 - Hyperlipidemia, unspecified (4) Hypertension Current Visit: Yes Status: Chronic Qualifiers: Hypertension type: primary hypertension Qualified Code(s): I10 - Essential (primary) hypertension - Plan Patient is admitted for observation, for ACS rule out. Monitor on telemetry, respiratory care technician consult. Trend troponin. Initial negative. EKG showing NSR. Aspirin and atorvastatin daily. Patient had carotid angiogram in November 2021 that showed severe left stenosis. Specialist did not recommend immediate intervention. Last stress test 1 year ago without abnormalities. Last cath in 2018 with stent placement. ACHS accu checks with moderate sliding scale and diabetic diet. Check A1c, TSH, and lipid panel in the mroning. Monitor and replete electrolytes per protocol. Reconcile and continue home medications. Lovenox for VTE prophylaxis. Full code. Discharge Plan: Home Plan to discharge in: 24 Hours - Advance Directives Does patient have a Living Will: No Does patient have a Durable POA for Healthcare: No - Code Status/Comfort Care Code Status Assessed: Yes Code Status: Full Code Physician Review: Patient Assessed, Agree with Above Assessment and Plan Critical Care: No Time Spent Managing Pts Care (In Minutes): 50
[2022-04-14 20:07] LABS: SARS-CoV-2 Antigen Rapid Res Negative (Negative)
[2022-04-14] MEDS: ATORVASTATIN 40 MG TAB PO SCH ×2 (22:25→23:25)
[2022-04-14] MEDS ORDERED: ONDANSETRON 4 MG/2 ML VIAL IV PRN (22:25)
[2022-04-14] MEDS: INSULIN -REGULAR HUMAN 50 UNIT/0.5 ML ML SQ SCH (22:25)
[2022-04-14] MEDS ORDERED: ACETAMINOPHEN 500 MG TAB PO PRN (22:25)
[2022-04-14 23:08] VITALS: BMI 24.8
[2022-04-15] MEDS: TRAMADOL HCL 50 MG TAB PO PRN ×2 (02:30→15:55)
[2022-04-15 05:52] LABS: Absolute Lymphocytes (CBC) 1.6 K/uL (0.7-4.9); Hematocrit 30.8 % (36.0-45.0); Lymphocytes % 29.5 % (15.3-44.8); MCV 86.8 fL (80-100); MPV 8.8 fL (7.6-11.3); RBC Red Blood Cell Count 3.54 M/uL (3.86-4.86)
[2022-04-15 06:21] LABS: Magnesium 1.6 mg/dL (1.6-2.4); Phosphorus 2.9 mg/dL (2.5-4.9); Potassium 4.3 mmol/L (3.5-5.1); Troponin High Sensitivity 7.2 pg/mL (<58.9)
[2022-04-15] MEDS: INSULIN -REGULAR HUMAN 50 UNIT/0.5 ML ML SQ SCH ×4 (07:30→21:31)
[2022-04-15] MEDS ORDERED: PNEUMOCOCCAL VACCINE 0.5 ML IMVAC ONE (08:00)
[2022-04-15] MEDS ORDERED: REGADENOSON 0.4 MG/5 ML SYR IV ONE (08:18)
[2022-04-15] MEDS ORDERED: MAGNESIUM SULFATE 1 gm IVPB 1 GM/100 ML BAG IV ONE (09:00)
[2022-04-15] MEDS: ASPIRIN EC 81 MG TAB PO SCH (10:12)
[2022-04-15] MEDS: ENOXAPARIN 40 MG/0.4 ML SQ SCH (10:12)
--- NOTE | 2022-04-15 15:15 | P.PN ---
Subjective Date of Service: 04/15/22 Chief Complaint: Chest Pain Patient is complaining of mild chest pressure. She has no other complaint. Troponin trended negative. Physical Examination - Vital Signs Temperature: 97.5 F Blood Pressure: 129/64 Pulse: 62 Respirations: 14 Pulse Ox (%): 94 - Studies Laboratory Data (last 24 hrs) 04/14/22 17:03: Lipase 121 04/14/22 17:03: WBC 5.10, Hgb 11.5 L, Hct 34.6 L, Plt Count 239 04/14/22 17:03: Sodium 141, Potassium 4.3, BUN 22 H, Creatinine 0.94, Glucose 154 H Assessment And Plan - Current Problems (Diagnosis) (1) Chest pain Onset Date: 05/07/15 Current Visit: No Status: Acute Qualifiers: Chest pain type: unspecified Qualified Code(s): R07.9 - Chest pain, unspecified (2) Coronary artery disease Current Visit: Yes Status: Acute Qualifiers: Coronary Disease-Associated Artery/Lesion type: [place] artery [place] vs. 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 Respiratory: Clear to auscultation bilaterally, Normal air movement Cardiovascular: Regular rate/rhythm, Normal S1 S2 Gastrointestinal: Normal bowel sounds, No tenderness Musculoskeletal: No tenderness Integumentary: No rashes Neurological: No focal motor deficit. Plan: ACS ruled out. Patient with significant cardiac risk factors. History of LAD stent, history of 80% OM occlusion. Patient with a history of peripheral arterial disease including ICA stenosis. Aspirin, lipitor. Continue home dose beta-anastacia Recommending stress test in am. Continue medications for GERD. Insulin sliding scale for glucose management. Patient is now hyperglycemic. Resume home dose Novolin 70/30. Physician Review: Patient Assessed, Agree with Above Assessment and Plan
[2022-04-15] MEDS: NITROGLYCERIN 0.4 MG/TAB SL PRN ×3 (15:28→15:42)
[2022-04-15 19:39] LABS: Specific Gravity 1.005 (1.005-1.030); Urine Bilirubin NEGATIVE (Negative); Urine Blood Negative (Negative); Urine Clarity Clear (Clear); Urine Color Colorless (Yellow); Urine Glucose NEGATIVE (Negative); Urine Protein NEGATIVE (Negative); Urine Urobilinogen Normal (Normal); Urine pH 5.5 (5.0-7.0)
[2022-04-15] MEDS ORDERED: HOME MED 1 EA UNK (Sennosides [Senna] 8.6 MG Capsule) PO SCH (21:00)
[2022-04-15] MEDS: SENOSIDES 8.6 MG TAB PO SCH (21:32)
[2022-04-15] MEDS: ATORVASTATIN 40 MG TAB PO SCH (21:33)
[2022-04-15] MEDS: GABAPENTIN 300 MG CAP PO SCH (21:33)
[2022-04-16 03:54] LABS: Magnesium 1.7 mg/dL (1.6-2.4); Potassium 4.4 mmol/L (3.5-5.1)
[2022-04-16] MEDS ORDERED: MAGNESIUM SULFATE 1 gm IVPB 1 GM/100 ML BAG IV ONE (04:03)
[2022-04-16] MEDS: INSULIN -REGULAR HUMAN 50 UNIT/0.5 ML ML SQ SCH ×4 (07:30→21:27)
--- NOTE | 2022-04-16 07:55 | EKG ---
Test Date: 2022-04-15 Test Time: 16:11:12 [employer] Architect: JAIMIE MEASUREMENT RESULTS: Intervals: Rate: 63 [place]: 166 QRSD: 84 QT: 430 QTc: 440 [place]: P: 45 IL: 166 QRS: 67 T: 66 INTERPRETIVE STATEMENTS: Normal sinus rhythm Normal ECG Compared to ECG 04/14/2022 17:02:48 No significant changes Electronically Signed On 04-16-22 07:54:05 ELECTRIC RANGE ASSEMBLER by Delmer Palmer
--- NOTE | 2022-04-16 07:59 | EKG ---
Test Date: 2022-04-14 Test Time: 17:02:48 Contact Center Director: ALDEN MEASUREMENT RESULTS: Intervals: Rate: 72 NV: 164 QRSD: 80 QT: 394 QTc: 431 [place]: P: 56 NV: 164 QRS: 79 T: 79 INTERPRETIVE STATEMENTS: Normal sinus rhythm Normal ECG Compared to ECG 11/21/2021 09:46:59 No significant changes Electronically Signed On 04-16-22 07:55:37 TURN DOWN ATTENDANT by Delmer Palmer
[2022-04-16] MEDS: AMLODIPINE 5 MG TAB PO SCH (08:53)
[2022-04-16] MEDS: METOPROLOL XL 50 MG TAB PO SCH (08:53)
[2022-04-16] MEDS: ASPIRIN EC 81 MG TAB PO SCH (08:53)
[2022-04-16] MEDS: FERROUS SULFATE 325 MG TAB PO SCH (08:53)
[2022-04-16] MEDS: GABAPENTIN 300 MG CAP PO SCH ×3 (08:53→21:18)
[2022-04-16] MEDS: PANTOPRAZOLE 40MG TABLET PO SCH (08:53)
[2022-04-16] MEDS: ENOXAPARIN 40 MG/0.4 ML SQ SCH (08:54)
[2022-04-16] MEDS: INSULIN LISPRO 100 UNIT/1 ML SQ SCH ×2 (09:02→17:14)
--- NOTE | 2022-04-16 10:21 | RAD REPORT ---
EXAM DESCRIPTION: NM - Rest Stress Cardiac Imaging - 04/16/2022 9:26 am CLINICAL HISTORY: Chest pain. COMPARISON: 2021 TECHNIQUE: The patient was administered 10.2mCi of Tc 99m Sestamibi prior to resting SPECT imaging o f the heart. The patient was then administered 31.3 mCi of Tc 99m Sestamibi following exercise or pha rmacologic stress. Multiplanar SPECT images were reviewed. FINDINGS: Small to moderate area of diminished radiotracer uptake involves the anterior apical left ventricular myocardium which is relatively matched on stress and rest images. The left ventricular ejection fraction equals 67% IMPRESSION: Small to moderate fixed perfusion defect anterior apical left ventricular myocardium hav ing the appearance of an infarct. No evidence of stress-induced ischemia
--- NOTE | 2022-04-16 16:41 | P.DS ---
Admission Date: 04/14/22 Discharge Date: 04/17/22 Disposition: DC HOME/HOME HEALTH CARE Discharge Condition: FAIR Reason for Admission: Chest Pain - Problems (1) Chest pain Onset Date: 05/07/15 Status: Acute Qualifiers: Chest pain type: unspecified Qualified Code(s): R07.9 - Chest pain, unspecified (2) Coronary artery disease Status: Acute Qualifiers: Coronary Disease-Associated Artery/Lesion type: [place] artery [place] vs. transplanted heart: [place] heart Associated angina: with unstable angina Qualified Code(s): I25.110 - Atherosclerotic heart disease of [place] coronary artery with unstable angina pectoris (3) Hypertension Status: Chronic Qualifiers: Hypertension type: primary hypertension Qualified Code(s): I10 - Essential (primary) hypertension (4) Type 2 diabetes mellitus Status: Chronic Qualifiers: Diabetes mellitus custodial insulin use: with terminal makeup operator use Diabetes mellitus complication status: with kidney complications Diabetes mellitus complication detail: with chronic kidney disease Chronic kidney disease stage: stage 2 (mild) Qualified Code(s): E11.22 - Type 2 diabetes mellitus with diabetic chronic kidney disease; N18.2 - Chronic kidney disease, stage 2 (mild); 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 Patient reported she has had intermittent chest pain and nausea for 24 hours, tightness/sharp radiating to shoulders bilaterally. Initial troponin negative, EKG with NSR, ddimer elevated at 961. Chest/abdomen/pelvis CT negative for acute findings and no PE. She was given 324 mg aspirin in the emergency department. Patient admitted for further management. Hospital Course: Patient placed on observation on the medical floor. Troponin trended negative. Patient experienced intermittent chest tightness and chest pain. She was placed on aspirin. She is on Toprol-XL which was continued during the hospital stay. Nuclear stress test was done with showed small to moderate fixed apical defect, no stress-induced ischemia. Echocardiogram done is unremarkable per Dr. Palmer. Patient has been chest pain-free with stable vitals. Okay to discharge per Dr. Palmer. Vital Signs/Physical Exam: Temp Pulse Resp BP Pulse Ox 97.8 F 66 18 122/58 L 96 04/16/22 12:00 04/16/22 12:00 04/16/22 12:00 04/16/22 12:00 04/16/22 12:00 General: Alert, In no apparent distress, Oriented x3 HEENT: Mucous membr. moist/pink Neck: Supple, JVD not distended Respiratory: Clear to auscultation bilaterally, Normal air movement Cardiovascular: No edema, Regular rate/rhythm, Normal S1 S2 Gastrointestinal: Soft and benign, Non-distended, No tenderness Musculoskeletal: No swelling Integumentary: No rashes, No cyanosis Neurological: Normal strength at 5/5 x4 extr Laboratory Data at Discharge: WBC 5.30 K/uL (4.3-10.9) 04/15/22 05:30 Hgb 10.3 g/dL (12.0-15.0) L D 04/15/22 05:30 Hct 30.8 % (36.0-45.0) L 04/15/22 05:30 Plt Count 215 K/uL (152-406) 04/15/22 05:30 Sodium 138 mmol/L (136-145) 04/16/22 02:28 Potassium 4.4 mmol/L (3.5-5.1) 04/16/22 02:28 BUN 20 mg/dL (7-18) H 04/16/22 02:28 Creatinine 0.76 mg/dL (0.55-1.02) 04/16/22 02:28 Glucose 192 mg/dL (74-106) H 04/16/22 02:28 Phosphorus 2.9 mg/dL (2.5-4.9) 04/15/22 05:30 Magnesium 1.7 mg/dL (1.6-2.4) 04/16/22 02:28 Triglycerides 122 mg/dL (<150) 04/15/22 05:30 Cholesterol 155 mg/dL (<200) 04/15/22 05:30 HDL Cholesterol 43 mg/dL (40-60) 04/15/22 05:30 Cholesterol/HDL Ratio 3.60 04/15/22 05:30 Lipase 74 U/L (73-393) 04/15/22 05:30 Home Medications: Metformin ER [Glucophage ER*] 1,000 mg PO BID 03/30/14 Clopidogrel Bisulfate [Plavix*] 75 mg PO DAILY 05/06/15 Amlodipine [Norvasc*] 5 mg PO DAILY 11/30/16 Metoprolol Succinate [Toprol Xl*] 100 mg PO DAILY 11/30/16 Celecoxib 1 cap PO BID 03/30/21 Famotidine 1 tab PO BID 03/30/21 Ferrous Sulfate 1 tab PO DAILY 03/30/21 Gabapentin 1 cap PO TID 03/30/21 Insulin Aspart Prot/Insuln Asp [Novolog Mix 70-30 Flexpen] 20 units SQ BID 03/30/21 Lisinopril [Zestril] 20 mg PO DAILY 03/30/21 Pantoprazole [Protonix Tab*] 20 mg PO DAILY 03/30/21 Rosuvastatin Calcium [Crestor] 10 mg PO DAILY 03/30/21 Sennosides [Senna] 1 cap PO BEDTIME 03/30/21 Vitamin D [Drisdol*] 1,000 unit PO DAILY 03/30/21 Aspirin [Aspirin EC 81 MG] 81 mg PO DAILY #30 tab 04/16/22 New Medications: Aspirin [Aspirin EC 81 MG] 81 mg PO DAILY #30 tab Followup: Kenan Velazquez DO [Primary Care Provider] - 1-2 Weeks (Call for appointment.)
--- NOTE | 2022-04-16 18:42 | P.PN ---
Subjective Date of Service: 04/16/22 Chief Complaint: Chest Pain Patient has no complaints today She denies any chest pain. Physical Examination - Vital Signs Temperature: 97.7 F Blood Pressure: 125/66 Pulse: 62 Respirations: 18 Pulse Ox (%): 94 Assessment And Plan - Current Problems (Diagnosis) (1) Chest pain Onset Date: 05/07/15 Current Visit: No Status: Acute Qualifiers: Chest pain type: unspecified Qualified Code(s): R07.9 - Chest pain, unspecified (2) Coronary artery disease Current Visit: Yes Status: Acute Qualifiers: Coronary Disease-Associated Artery/Lesion type: [place] artery [place] vs. 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 customer service insulin use: with fdc use Diabetes mellitus complication status: with kidney complications Diabetes mellitus complication detail: with chronic kidney disease Chronic kidney disease stage: stage 2 (mild) Qualified Code(s): E11.22 - Type 2 diabetes mellitus with diabetic chronic kidney disease; N18.2 - Chronic kidney disease, stage 2 (mild); 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 Plan: ACS ruled out. Patient with significant cardiac risk factors. History of LAD stent, history of 80% OM occlusion. Patient with a history of peripheral arterial disease including ICA stenosis. Nuclear stress test showed fixed apical defect. No stress-induced ischemia. Continue aspirin, lipitor. Continue home dose beta-anastacia Cardiology Dr. Palmer to see patient. Dr. Palmer recommend echocardiogram. Continue medications for GERD. Insulin sliding scale and Novolin 70/30 for glucose management. Physician Review: Patient Assessed, Agree with Above Assessment and Plan
[2022-04-16] MEDS: ATORVASTATIN 40 MG TAB PO SCH (21:18)
[2022-04-16] MEDS: SENOSIDES 8.6 MG TAB PO SCH (21:18)
[2022-04-17 04:29] LABS: Magnesium 1.6 mg/dL (1.6-2.4); Potassium 4.5 mmol/L (3.5-5.1)
[2022-04-17] MEDS ORDERED: MAGNESIUM SULFATE 1 gm IVPB 1 GM/100 ML BAG IV ONE (05:40)
--- NOTE | 2022-04-17 06:41 | TREADPHA ---
DX: CHEST PAIN Date of Study: 04/16/2022 Ht: 5' 2 " Wt: 136 lb 0 oz Consulting Physician: TIP MEDICATIONS: TYLENOL, ASPIRIN, LIPITOR, LOVENOX, NOVOLIN-R, MAGNESIUM SULFATE, NITROSTAT, ULTRAM HISTORY: THREE STENTS, HYPERTENSION, HYPERLIPIDEMIA, DIABETES MELLITUS PHYSICIAL EXAMINATION: RESTING B.P.: 141/60 RESTING H.R.: 65 RESTING EKG: NORMAL SINUS RHYTHM, WITHIN NORMAL LIMITS PROTOCOL: PHARMACOLOGIC EXERCISE TIME: 3:30 B.P. AT [place] STRESS: 141/66 IMPRESSION: LEXISCAN STRESS TEST PERFORMED. CARDIOLITE INJECTED PER PROTOCOL. NO SUPRAVENTRICULAR TACHYCARDIA, NO VENTRICULAR TACHYCARDIA NOTED. PREMATURE VENTRICULAR COMPLEXES NOTED DURING EXAM. PATIENT COMPLAINS OF CHEST PRESSURE THAT RELIEVED. NO ELECTROCARDIOGRAM CHANGES WITH LEXISCAN.
[2022-04-17] MEDS: INSULIN LISPRO 100 UNIT/1 ML SQ SCH ×2 (08:46→16:14)
[2022-04-17] MEDS: INSULIN -REGULAR HUMAN 50 UNIT/0.5 ML ML SQ SCH ×3 (08:46→16:15)
[2022-04-17] MEDS: GABAPENTIN 300 MG CAP PO SCH ×2 (08:47→14:15)
[2022-04-17] MEDS: FERROUS SULFATE 325 MG TAB PO SCH (08:47)
[2022-04-17] MEDS: ENOXAPARIN 40 MG/0.4 ML SQ SCH (08:47)
[2022-04-17] MEDS: METOPROLOL XL 50 MG TAB PO SCH (08:47)
[2022-04-17] MEDS: AMLODIPINE 5 MG TAB PO SCH (08:47)
[2022-04-17] MEDS: PANTOPRAZOLE 40MG TABLET PO SCH (08:47)
[2022-04-17] MEDS: ASPIRIN EC 81 MG TAB PO SCH (08:48)
[2022-04-17 10:43] VITALS: O2SAT 95
[2022-04-17 16:02] VITALS: BP 152/71; TEMP 98.5
--- NOTE | 2022-04-17 16:12 | P.PN ---
Subjective Date of Service: 04/17/22 Chief Complaint: Chest Pain Patient has no complaint. Physical Examination - Vital Signs Temperature: 98.5 F Blood Pressure: 152/71 Pulse: 73 Respirations: 16 Pulse Ox (%): 95 Assessment And Plan - Current Problems (Diagnosis) (1) Chest pain Onset Date: 05/07/15 Current Visit: No Status: Acute Qualifiers: Chest pain type: unspecified Qualified Code(s): R07.9 - Chest pain, unspecified (2) Coronary artery disease Current Visit: Yes Status: Acute Qualifiers: Coronary Disease-Associated Artery/Lesion type: [place] artery [place] vs. transplanted heart: [place] heart Associated angina: with unstable angina Qualified Code(s): I25.110 - Atherosclerotic heart disease of [place] coronary artery with unstable angina pectoris (3) Hypertension Current Visit: Yes Status: Chronic Qualifiers: Hypertension type: primary hypertension Qualified Code(s): I10 - Essential (primary) hypertension (4) Type 2 diabetes mellitus Current Visit: Yes Status: Chronic Qualifiers: Diabetes mellitus retirement insulin use: with retirement use Diabetes mellitus complication status: with kidney complications Diabetes mellitus complication detail: with chronic kidney disease Chronic kidney disease stage: stage 2 (mild) Qualified Code(s): E11.22 - Type 2 diabetes mellitus with diabetic chronic kidney disease; N18.2 - Chronic kidney disease, stage 2 (mild); Z79.4 - nursing home (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 Plan: ACS ruled out. Patient with a history of peripheral arterial disease including ICA stenosis. Nuclear stress test showed fixed apical defect. No stress-induced ischemia. Echocardiogram is pending. Continue aspirin, lipitor. Continue home dose beta-anastacia Cardiology Dr. Palmer to to follow. Continue medications for GERD. Clinically stable.
--- NOTE | 2022-04-20 06:50 | ECHO ---
HEIGHT: 5 ft 2 in WEIGHT: 136 lb 0 oz DATE OF STUDY: 04/17/[address]: Delmer Palmer 2-DIMENSIONAL: YES M.MODE: YES DOPPLER: YES COLOR FLOW: YES TDS: PORTABLE: YES DEFINITY: BUBBLE STUDY: DIAGNOSIS: CHEST PAIN CARDIAC HISTORY: CATHERIZATION: SURGERY: PROSTHETIC VALVE: PACEMAKER: MEASUREMENTS (cm) DIASTOLIC (NORMALS) SYSTOLIC (NORMALS) IVSd 1.0 (0.6-1.2) LA Diam 3.8 (1.9-4.0) LVEF 74% LVIDd 4.5 (3.5-5.7) LVIDs 2.6 (2.0-3.5) %FS 43% LVPWd 1.0 (0.6-1.2) Ao Diam 2.4 (2.0-3.7) 2 DIMENSIONAL ASSESSMENT: RIGHT ATRIUM: NORMAL LEFT ATRIUM: ENALRGED RIGHT VENTRICLE: NORMAL LEFT VENTRICLE: NORMAL TRICUSPID VALVE: MILD TRICUSPID REGURGITATION MITRAL VALVE: MILD MITRAL REGURGITATION PULMONIC VALVE: NORMAL AORTIC VALVE: MILD AORTIC INSUFFICIENCY PERICARDIAL EFFUSION: NONE AORTIC ROOT: NORMAL LEFT VENTRICULAR WALL MOTION: NORMAL DOPPLER/COLOR FLOW: SEE BELOW COMMENTS: 1. NORMAL LEFT VENTRICULAR EJECTION FRACTION 60-65% 2. NORMAL WALL MOTION 3. MILD TRICUSPID REGURGITATION, MITRAL REGURGITATION, AORTIC INSUFFICIENCY 4. MODERATE DIASTOLIC DYSFUNCTION 5. AORTIC VALVE SCLEROSIS, NO AORTIC STENOSIS. TECHNOLOGIST: EMANUEL ZAMARRIPA
== END 2022-04-17 18:10 | disposition home health service (06) | DRG 303 ==
LOC: ER 16:49 → ERHOLD 19:59 → 4TH 22:22 → OBSVTOIN 04-16 18:43
PROVIDERS: ADMIT Internal Medicine; ATTEND Internal Medicine
DX: I25.110 Atherosclerotic heart disease of native coronary artery with unstable angina pectoris (principal); I12.9 Hypertensive chronic kidney disease with stage 1 through stage 4 chronic kidney disease, or unspecified chronic kidney disease; E11.22 Type 2 diabetes mellitus with diabetic chronic kidney disease; E11.65 Type 2 diabetes mellitus with hyperglycemia; N18.2 Chronic kidney disease, stage 2 (mild); I73.9 Peripheral vascular disease, unspecified; I65.22 Occlusion and stenosis of left carotid artery; E78.5 Hyperlipidemia, unspecified; K21.9 Gastro-esophageal reflux disease without esophagitis; I25.2 Old myocardial infarction; E89.0 Postprocedural hypothyroidism; N20.0 Calculus of kidney; Z79.4 Long term (current) use of insulin; Z79.02 Long term (current) use of antithrombotics/antiplatelets; Z79.899 Other long term (current) drug therapy; Z95.5 Presence of coronary angioplasty implant and graft; Z20.822 Contact with and (suspected) exposure to COVID-19; Z90.49 Acquired absence of other specified parts of digestive tract; Z82.49 Family history of ischemic heart disease and other diseases of the circulatory system; Z82.3 Family history of stroke; Z83.3 Family history of diabetes mellitus; Z80.3 Family history of malignant neoplasm of breast
CPT/HCPCS: 36415; 71045; 71275; 74177; 78452; 80048; 80061; 81003; 82947; 83036; 83690; 83735; 84100; 84484; 85025; 85379; 87811; 93005; 93017; 93306; 96374; 96375; 99285; A9500; G0378; J1650; J1815; J2270; J2405; J2785; J3475; Q9967

== ENCOUNTER 2022-05-13 17:17 | Inpatient (IN) | payer OTHER ==
--- OUTSIDE RECORDS SUMMARY | 2022-05-13 17:27 | XMS REPORT | Continuity of Care Document ---
:1945 Author Organization [facility] t Address [address] [facility] [facility]. [address] [place] [address] Care Team Providers Name Role Phone JOSÉ LUIS ARTEAGA Primary Care Physician Unavailable José Luis Arteaga Attending Clinician Unavailable CHATA SPANGLER Attending Clinician Unavailable NAINA BYRD Attending Clinician Unavailable KENAN VELAZQUEZ Attending Clinician Unavailable [id number] Attending Clinician Unavailable SULAIMAN OTTO Attending Clinician Unavailable ALLI CORRIGAN Attending Clinician Unavailable LAKIA DONG Attending Clinician Unavailable [id number] Attending Clinician Unavailable CARLOS SCHULTZ Attending Clinician Unavailable MAURICIO FERRARA Attending Clinician Unavailable MALKA CHUNG Attending Clinician Unavailable Cas Magallon MD Attending Clinician [phone] CAS MAGALLON Attending Clinician Unavailable MAGALY SHIRLEY Attending Clinician Unavailable Magaly Gatica Attending Clinician Marco KNOBBER, Juancarlos Attending Clinician Hundreuben KNOBBER-C, Lakia Attending Clinician [id number] Attending Clinician Unavailable Naina Byrd DO Attending Clinician Kenan Velazquez DO Attending Clinician Reed ROUSE, Cherelle Almendarez Attending Clinician Unavailable Only, Ang Db Test Attending Clinician Unavailable JUANCARLOS GONGORA Attending Clinician Unavailable Doctor Unassigned, Hardesty Attending Clinician Unavailable COVID-PFIZER BOOSTER, HOPKINS Attending Clinician Unava binu Schultz MD, Carlos Gibson Attending Clinician Ross Borden DO Attending Clinician Alaina LUGO, Michael Attending Clinician MICHAEL MILTON Attending Clinician Unavailable Ziggy Chatterjee DO Attending Clinician NATALIA PATTEN Attending Clinician Unavailable Sandor LUGO, Natalia Attending Clinician Guillermo ROUSE, Kellen Attending Clinician Unavailable Renata LUGO, Frank Hercules Attending Clinician Erika Henley MD Attending Clinician Lab, Adc Fam Pob I Attending Clinician Unavailable Vega KNOBBER, Nayana Attending Clinician Erika Henley MD Admitting Clinician Payers Payer Name Policy Type Policy Number Effective Date Expiration Date Ashley gonzalez [employer] [id number] 2017spring 00:00:00 AETNA MA PREMIER 7 [id number] 2021 HMO PLAN 00:00:00 [employer]NA MEDICARE [id number] 2021 2021 OUT OF NETWORK 00:00:00 00:00:00 HUMANA MEDICARE 7 [id number] 2021 [id number] GOLD 00:00:00 PLUS 2021 [facility] 7 [id number] 2020-11-062019 R2 00:00:00 Problems Condition Condition Condition Status Onset [...] 40% and 40% LICA at LICA at [facility] S/P S/P Disease Active 2021-03 Kasia primary primary 0-04 Seybold angioplast angioplast 00:00: - y with y with 00 Externa coronary coronary l stent: RCA stent: RCA (patent), (patent), LM (20%), LM (20%), LCx LCx (wdx98-21% (hcd03-58% ), OM1 ), OM1 (patent (patent stent), stent), LAD LAD (ostial (ostial 30%, prox 30%, prox patent patent stent), stent), Synergy Synergy [id number] to D1 on to D1 on 11/08/2018 11/08/2018 [facility] 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 carotid carotid 00:00: Medical artery artery 00 Center Coronary Coronary Disease [facility] disease disease 00:[facility]: Medical involving involving 00 Cent [place] coronary coronary artery artery without without angina angina pectoris pectoris Type 2 Type [address] [facility] diabetes diabetes 12-03kes mellitus mellitus 00:00: Medica l 00 Center Primary Primary Disease Active [facility] hypertensi hypertensi 12-03 Shanti kes on on 00:00: Medical 00 Center Dyslipidem Dyslipidem Disease Active [facility] 00[facility] Center GERD GERD [...] to to 00:00: - diabetes diabetes 00 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 MRI 12/2020: C-spine showed moderatel y severe lower cervical degenerat conner spondylos is most significa nt at C5-C6. Thoracic Thoracic Disease Active Overview: Case pedersen spondylosi spondylosi 4-14 Formattin Seybold s s 00:00: g of this - 00 note Externa might be l different from the original. MRI 12/2020: Moderate lower thoracic degenerat conner spondylos is also identifie d. Drug-induc Drug-induc Disease Active K elsey ed ed 3-17 Seybold constipati constipati 00:00: [...] on on 00:00: g of this - note Externa [...] pt no f/u since hospitali zation in [place] and was given a blood transfusi on one unitNo colonosco py 02/2020 [place] Disease Active Overview: Kasia (myocardia (myocardia 11-28 [...] scan scan different from the original. In [place] told a spot on the lievr needed 6 month follow up Acute Acute Disease Active [facility] pancreatit pancreatit 10-11 it y of is is 00:00: [place] 00 Medical Branch Coronary Coronary Disease Active Unive rs artery artery 10-11 ity of disease disease 00:00: [place] involving involving 00 Medi [place] Branch coronary coronary artery of artery of [place] heart heart without without angina angina pectoris [...] y of d type d type 00:00: [place] diabetes diabetes 00 Medica l mellitus mellitus Branch with with unspecifie unspecifie d d complicati complicati on, not on, not stated as stated as uncontroll uncontroll ed ed [id number] Constipati Problem Com mon on, Spirit unspecifie - [facility] d constipati [facility] on [facility] [id number] Lower Problem Common urinary [facility] tract - [facility] symptoms (LUTS) [facility] Kidney Bilateral Problem Common stone kidney [facility] stones [facility] [id number] Bladder Problem Common stones [facility] [id number] Recurrent Problem Com mon UTI [facility] [id number] Incomplete Problem Co mmon emptying [facility] of bladder [facility] [id number] Pelvic Problem Common pain [facility] Allergies, Adverse Reactions, Alerts Allergy Allergy Status Severity Reaction(s) Onset Inactive Treating Comm ents Source Name Type Date Date Clinician NO KNOWN Drug Active Univers ALLERGIE Class ity of S [facility] Family History Family Member Diagnosis Comments Start Date Stop Date Source Natural father Heart disease [facility] Natural father Stroke [facility] Social History Social Habit Start Date Stop Date Quantity Comments Source History of Tobacco [facility] Use [facility] Tobacco use and 2021-12-03 2021-12-03 Never used [facility] exposure 00:00:00 00:00:00 [facility] Exposure to 2021-09-17 2021-09-27 Not sure [facility] SARS-CoV-2 (event) 00:00:00 18:31:00 [facility] Alcohol intake 2021-09-27 2021-09-27 .12 /d [facility] 00:00:00 00:00:00 Medical [place] Sex [birth year] [facility] 00:00:00 00:00:00 [facility] Smoking Status Start Date Stop Date Source Never smoked tobacco Kasia Ha old - External Medications Ordered Filled Start Stop Current Ordering Indication Dosage Frequency Signature Comments Components Source Medication Medication Date Date Medication? Clinician (SIG) Name Name Aspirin 81 2023-0 Yes 81mg Take 81 mg K elsey MG oral 2-06 by mouth Seybold Tablet 14:57: daily - Delayed 33 Externa Response l Magnesium 2022-0 Yes 1 tablet Nereyda ey 250 MG oral 2-06 with a Seybol d Tablet 14:57: meal - 33 Externa l Aspirin 81 2022-0 Yes 81mg Take 81 mg K elsey MG oral 2-06 by mouth Seybold Tablet 14:57: daily - Delayed 33 Externa Response l Magnesium 2022-0 Yes 1 tablet Nereyda ey 250 MG oral 2-06 with a Seybol d Tablet 14:57: meal - 33 Externa l Nitroglycer Yes [id number] 1 to 2 Kasia in 0.4 MG 2-06 tablets Seybold sublingual 00:00: under the - SL Tab 00 tongue at Externa onset of l attack. Repeat as needed up to 3 times. If not relieved CALL 911. Insulin Pen Yes [id number] Takes Kasia Needle 31G 2-06 insulin Seybol d X 5 MM does 00:00: once daily - not apply 00 Externa Misc l Lisinopril Yes [id number] 20mg Take 1 K elsey 20 MG oral 2-06 tablet (20 Sey bold Tablet 00:00: mg total) - 00 by mouth Externa daily l Metformin 0 Yes [id number] 1000mg Take 2 Aksia HCl 500 MG 2-06 tablets Seybol d oral Tablet 00:00: (1,000 mg - 00 total) by Externa mouth in l the morning and 2 tablets (1,000 mg total) in the evening. Take with meals. Insulin Yes [id number] Takes up K elsey Glargine 2-06 to 35 Seybold (Basaglar 00:00: units SQ - KwikPen) 00 daily at Externa 100 UNIT/ML bedtime l subcutaneou s Solution Pen-injecto r Nitroglycer Yes [id number] 1 to 2 Kasia in 0.4 MG 2-06 tablets Seybold sublingual 00:00: under the - SL Tab 00 tongue at Externa onset of l attack. Repeat as needed up to 3 times. If not relieved CALL 911. Insulin Pen Yes [id number] Takes Kasia Needle 31G 2-06 insulin Seybol d X 5 MM does 00:00: once daily - not apply 00 Externa Misc l Lisinopril 2022-0 Yes [id number] 20mg Take 1 K elsey 20 MG oral 2-06 tablet (20 Sey bold Tablet 00:00: mg total) - 00 by mouth Externa daily l Metformin 2022-0 Yes [id number] 1000mg Take 2 Kasia HCl 500 MG 2-06 tablets Seybol d oral Tablet 00:00: (1,000 mg - 00 total) by Externa mouth in l the morning and 2 tablets (1,000 mg total) in the evening. Take with meals. Insulin Yes [id number] Takes up K elsey Glargine 2-06 to 35 Seybold (Basaglar 00:00: units SQ - KwikPen) 00 daily at Externa 100 UNIT/ML bedtime l subcutaneou s Solution Pen-injecto r Celecoxib 2022-0 Yes [id number] 200mg Take 1 K elsey 200 MG oral 1-31 capsule Seybo ld Capsule 00:00: (200 mg - 00 total) by Externa mouth 2 l times daily Celecoxib 2022-0 Yes [id number] 200mg Take 1 K elsey 200 MG oral 1-31 capsule Seybo ld Capsule 00:00: (200 mg - 00 total) by Externa mouth 2 l times daily Alfuzosin 2022-0 2022- Yes 1{tbl} Take 1 Killian sey HCl 10 MG 1-25 07-25 tablet by Seyb old oral TABLET 00:00: 04:59 mouth at - SR 24 HR 00 :00 bedtime Externa l Alfuzosin Alfuzosin 2022-0 2022- No 1{table QD Alfuzosin HCl ER 10 HCl ER 10 1-25 07-24 t_at_be HCl ER 10 MG MG 00:00: 00:00 dtime} MG 00 :00 Aspirin 81 2022-0 Yes 81mg Take 81 mg K elsey MG oral 1-06 by mouth Seybold Tablet 16:03: daily - Delayed 18 Externa Response l Magnesium 2022-0 Yes 1 tablet Nereyda ey 250 MG oral -06 with a Seybol d Tablet 16:03: meal - 18 Externa l Benzonatate 2022-0 Yes [id number] 100mg Q.[id number] Take 1 Kasia (Tessalon 1-06 [id number] capsule S eybold Perles) 100 00:00: 3D (100 mg - MG oral 00 total) by Externa Capsule mouth 3 l times daily as needed for cough Benzonatate 2022-0 Yes [id number] 100mg Q.[id number] Take 1 Kasia (Tessalon 1- [id number] capsule S eybold Perles) 100 00:00: 3D (100 mg - MG oral 00 total) by Externa Capsule mouth 3 l times daily as needed for cough Azithromyci 2022-0 2023- No [id number] Take 2 Kasia n 250 MG 03-13 tablets by Seyb old oral Tablet 00:00: 00:00 mouth on - 00 :00 day 1 then Externa 1 tablet l by mouth daily for 4 days thereafter . Benzonatate 2022-0 2022- No [id number] 100mg Q.[id number] Take 1 Kasia (Tessalon 03-13 [id number] capsule Seybold Perles) 100 00:00: 00:00 3D (100 mg - MG oral 00 :00 total) by Externa Capsule mouth 3 l times daily as needed for cough Azithromyci 2022-0 2022- Yes [id number] Take 2 Kasia n 250 MG 03-13 tablets by Seyb old oral Tablet 00:00: 05:59 mouth on - 00 :00 day 1 then Externa 1 tablet l by mouth daily for 4 days thereafter . Metoprolol 2021-03 Yes [id number] TAKE 1 K elsey Succinate 2-28 TABLET BY Seybo ld 100 MG oral 00:00: MOUTH - TABLET SR 00 EVERY DAY Exter na 24 HR l Metoprolol 2021-03 Yes [id number] TAKE 1 K elsey Succinate 2-28 TABLET BY Seybo ld 100 MG oral 00:00: MOUTH - TABLET SR 00 EVERY DAY Exter na 24 HR l Metoprolol 2021-03 Yes [id number] TAKE 1 K elsey Succinate 2-28 TABLET BY Seybo ld 100 MG oral 00:00: MOUTH - TABLET SR 00 EVERY DAY Exter na 24 HR l Ferrous 2021-03 Yes [id number] 325mg TAKE 1 Killian sey Sulfate 325 2-08 TABLET Seybol d (65 Fe) MG 00:00: (325 MG - oral Tablet 00 TOTAL) BY Ext sharlene MOUTH l DAILY (WITH BREAKFAST) Ferrous 2021-03 Yes [id number] 325mg TAKE 1 Killian sey Sulfate 325 2-08 TABLET Seybol d (65 Fe) MG 00:00: (325 MG - oral Tablet 00 TOTAL) BY Ext shalrene MOUTH l DAILY (WITH BREAKFAST) Ferrous 2021-03 Yes [id number] 325mg TAKE 1 Killian sey Sulfate 325 2-08 TABLET Seybol d (65 Fe) MG 00:00: (325 MG - oral Tablet 00 TOTAL) BY Ext sharlene MOUTH l DAILY (WITH BREAKFAST) Aspirin 81 2021-03 Yes 81mg Take 81 mg K elsey MG oral - by mouth Seybold Tablet 13:12: daily - Delayed 19 Externa Response l Magnesium 2021-03 Yes 1 tablet Nereyda ey 250 MG oral 03-29 with a Seybol d Tablet 13:12: meal - 19 Externa l aspirin 81 Yes 81mg QD Take [address] MG EC 28 by mouth [facility] tablet 11:39: daily. [address] aspirin 81 Yes 81mg QD Take [address] MG EC -28 by mouth [facility] tablet 11:39: daily. [address] Aspirin 81 Yes 81mg Take 81 mg K elsey MG oral - by mouth Seybold Tablet 13:25: daily - Delayed 42 Externa Response l Magnesium Yes 1 tablet Nereyda ey 250 MG oral 12-02 with a Seybol d Tablet 13:25: meal - 42 Externa l Simethicone Yes [id number] 80mg Q.25D Take 1 Kasia 80 MG oral 9-27 tablet (80 Sey bold Chewable 00:00: mg total) - Tablet 00 by mouth Externa every 6 l hours as needed for flatulence Ondansetron Yes [id number] 4mg Q.[id number] Take 1 Kasia (Zofran 9-27 [id number] tablet (4 S eybold ODT) 4 MG 00:00: 3D mg total) - oral TABLET 00 by mouth Exte rna DISPERSIBLE every 8 l hours as needed for nausea Ondansetron 2021-0 Yes [id number] 4mg Q.[id number] Take 1 Kasia (Zofran 9-27 [id number] tablet (4 S eybold ODT) 4 MG 00:00: 3D mg total) - oral TABLET 00 by mouth Exte rna DISPERSIBLE every 8 l hours as needed for nausea Simethicone 2-0 Yes [id number] 80mg Q.25D Take 1 Kasia 80 MG oral 9-27 tablet (80 Sey bold Chewable 00:00: mg total) - Tablet 00 by mouth Externa every 6 l hours as needed for flatulence Ondansetron 2021-0 Yes [id number] 4mg Q.[id number] Take 1 Kasia (Zofran 9-27 [id number] tablet (4 S eybold ODT) 4 MG 00:00: 3D mg total) - oral TABLET 00 by mouth Exte rna DISPERSIBLE every 8 l hours as needed for nausea Simethicone 2021-0 Yes [id number] 80mg Q.25D Take 1 Kasia 80 MG oral 9-27 tablet (80 Sey bold Chewable 00:00: mg total) - Tablet 00 by mouth Externa every 6 l hours as needed for flatulence Ondansetron 2021-0 Yes [id number] 4mg Q.[id number] Take 1 Kasia (Zofran 9-27 [id number] tablet (4 S eybold ODT) 4 MG 00:00: 3D mg total) - oral TABLET 00 by mouth Exte rna DISPERSIBLE every 8 l hours as needed for nausea Simethicone 2021-0 Yes [id number] 80mg Q.25D Take 1 Kasia 80 MG oral 9-27 tablet (80 Sey bold Chewable 00:00: mg total) - Tablet 00 by mouth Externa every 6 l hours as needed for flatulence Ondansetron 2021-0 Yes [id number] 4mg Q.[id number] Take 1 Kasia (Zofran 9-27 [id number] tablet (4 S eybold ODT) 4 MG 00:00: 3D mg total) - oral TABLET 00 by mouth Exte rna DISPERSIBLE every 8 l hours as needed for nausea Simethicone 2-0 2023- No [id number] 80mg Q.25D Take 1 Kasia 80 MG oral 12-02 tablet (80 Se ybold Chewable 00:00: 00:00 mg total) - Tablet 00 :00 by mouth Externa every 6 l hours as needed for flatulence Amlodipine 0 Yes [id number] 5mg Take 1 K elsey Besylate 5 11-06 tablet (5 Seyb old MG oral 00:00: mg total) - Tablet 00 by mouth Externa daily l Amlodipine Yes [id number] 5mg Take 1 K elsey Besylate 5 11-06 tablet (5 Seyb old MG oral 00:00: mg total) - Tablet 00 by mouth Externa daily l Amlodipine Yes [id number] 5mg Take 1 K elsey Besylate 5 11-06 tablet (5 Seyb old MG oral 00:00: mg total) - Tablet 00 by mouth Externa daily l Amlodipine Yes [id number] 5mg Take 1 K elsey Besylate 5 11-06 tablet (5 Seyb old MG oral 00:00: mg total) - Tablet 00 by mouth Externa daily l Amlodipine Yes [id number] 5mg Take 1 K elsey Besylate 5 11-06 tablet (5 Seyb old MG oral 00:00: mg total) - Tablet 00 by mouth Externa daily l amLODIPine Yes 5mg QD Take [address] (NORVASC) 5 11-06 by mouth Luke s MG tablet 00:00: daily. Medica l [address] [place] [address] amLODIPine Yes 5mg QD Take [address] (NORVASC) 5 11-06 by mouth Luke s MG tablet 00:00: daily. Medica l [address] [place] [address] Lisinopril 0 Yes [id number] 20mg Take 1 K elsey 20 MG oral 8-26 tablet (20 Sey bold Tablet 00:00: mg total) - 00 by mouth Externa daily l Lisinopril 0 Yes [id number] 20mg Take 1 K elsey 20 MG oral 8-26 tablet (20 Sey bold Tablet 00:00: mg total) - 00 by mouth Externa daily l Lisinopril 0 Yes [id number] 20mg Take 1 K elsey 20 MG oral 8-26 tablet (20 Sey bold Tablet 00:00: mg total) - 00 by mouth Externa daily l lisinopriL Yes 20mg QD Take [address] (PRINIVIL,Z 8- by mouth Luke s ESTRIL) 20 00:00: daily. Medic al MG tablet 00 Center lisinopriL Yes 20mg QD Take [address] (PRINIVIL,Z 8- by mouth Luke s ESTRIL) 20 00:00: daily. Medic al MG tablet 00 [place] Lisinopril 2022- No [id number] 20mg Take 1 Kasia 20 MG oral 10-31 tablet (20 Se ybold Tablet 00:00: 00:00 mg total) - 00 :00 by mouth Externa daily l Insulin Yes [id number] Takes up K elsey Glargine 8-08 to 35 Seybold (Basaglar 00:00: units SQ - KwikPen) 00 daily at Externa 100 UNIT/ML bedtime l subcutaneou s Solution Pen-injecto r Insulin Yes [id number] Takes up K elsey Glargine 8-08 to 35 Seybold (Basaglar 00:00: units SQ - KwikPen) 00 daily at Externa 100 UNIT/ML bedtime l subcutaneou s Solution Pen-injecto r Insulin Yes [id number] Takes up K elsey Glargine 8-08 to 35 Seybold (Basaglar 00:00: units SQ - KwikPen) 00 daily at Externa 100 UNIT/ML bedtime l subcutaneou s Solution Pen-injecto r Basaglar Yes 35U QD Inject [address] KwikPen 8-08 Units [facility] U-100 00:00: subcutaneo Medica l Insulin 100 00 usly Center unit/mL (3 nightly. mL) InPn Basaglar Yes 35U QD Inject [address] KwikPen 8-08 Units [facility] U-100 00:00: subcutaneo Medica l Insulin 100 00 usly Center unit/mL (3 nightly. mL) InPn Insulin 2022- No [id number] Takes up Kasia Glargine 8-08 02-06 to 35 Seybold (Basaglar 00:00: 00:00 units SQ - KwikPen) 00 :00 daily at Externa 100 UNIT/ML bedtime l subcutaneou s Solution Pen-injecto r LISINOPRIL Yes None Univers 10 MG ORAL 7-23 Entered ity of TAB 18:36: [place] [address] Medical Branch METFORMIN Yes 500mg Take 500 [...] under the ity of (HUMALOG 18:36: skin. [facility]) Medical Branch EMPAGLIFLOZ Yes Take by Uni vers IN 7-23 mouth. ity of (JARDIANCE 18:36: [place] ORAL) Medical Branch LISINOPRIL Yes None Univers 10 MG ORAL 7-23 Entered ity of TAB 18:36: [place] [address] Medical Branch METFORMIN Yes 500mg Take 500 [...] under the ity of (HUMALOG 18:36: skin. [facility]) Medical Branch EMPAGLIFLOZ Yes Take by Uni vers IN 7-23 mouth. ity of (JARDIANCE 18:36: [place] ORAL) Medical Branch atorvastati Yes 20mg QD Take [address] [facility] (LIPITOR) 7-23 by mouth Luke s 20 MG 00:00: daily. Medical tablet 00 Center molnupiravi 2021-0 Yes [id number] 800mg Take 4 Univers r 200 mg 7-23 capsules ity of capsule 00:00: by mouth [place] 00 every 12 Medical (twelve) Branch hours. molnupiravi 2021-0 Yes [id number] 800mg Take 4 Univers r 200 mg 7-23 capsules ity of capsule 00:00: by mouth [place] 00 every 12 Medical (twelve) Branch hours. atorvastati 0 Yes 20mg QD Take [address] [facility] (LIPITOR) 7-23 by mouth Luke s 20 MG 00:00: daily. Medical tablet 00 [place] molnupiravi 0 2- No [id number] 800mg Take 4 Univers r 200 mg 7-23 07-23 capsules ity of capsule 00:00: 00:00 by mouth [place] 00 :00 every 12 Medical (twelve) Branch hours. Atorvastati Yes [id number] 20mg Take 1 Kasia n Calcium 7-12 tablet (20 Seyb old 20 MG oral 00:00: mg total) - Tablet 00 by mouth Externa daily l Pantoprazol 2021-0 Yes [id number] 20mg Take 1 Kasia e Sodium 20 7-12 tablet (20 Se ybold MG oral 00:00: mg total) - Tablet 00 by mouth Externa Delayed daily l Response Atorvastati 0 Yes [id number] 20mg Take 1 Kasia n Calcium 7-12 tablet (20 Seyb old 20 MG oral 00:00: mg total) - Tablet 00 by mouth Externa daily l Pantoprazol 2021-0 Yes [id number] 20mg Take 1 Kasia e Sodium 20 7-12 tablet (20 Se ybold MG oral 00:00: mg total) - Tablet 00 by mouth Externa Delayed daily l Response Atorvastati 2021-0 Yes [id number] 20mg Take 1 Kasia n Calcium 7-12 tablet (20 Seyb old 20 MG oral 00:00: mg total) - Tablet 00 by mouth Externa daily l Pantoprazol 2021-0 Yes [id number] 20mg Take 1 Kasia e Sodium 20 7-12 tablet (20 Se ybold MG oral 00:00: mg total) - Tablet 00 by mouth Externa Delayed daily l Response Atorvastati Yes [id number] 20mg Take 1 Kasia n Calcium 7-12 tablet (20 Seyb old 20 MG oral 00:00: mg total) - Tablet 00 by mouth Externa daily l Pantoprazol Yes [id number] 20mg Take 1 Kasia e Sodium 20 7-12 tablet (20 Se ybold MG oral 00:00: mg total) - Tablet 00 by mouth Externa Delayed daily l Response Atorvastati Yes [id number] 20mg Take 1 Kasia n Calcium 7-12 tablet (20 Seyb old 20 MG oral 00:00: mg total) - Tablet 00 by mouth Externa daily l Pantoprazol Yes [id number] 20mg Take 1 Kasia e Sodium 20 7-12 tablet (20 Se ybold MG oral 00:00: mg total) - Tablet 00 by mouth Externa Delayed daily l Response pantoprazol Yes 20mg QD Take [address] e 7-12 by mouth [facility] (PROTONIX) 00:00: daily. Medic al 20 MG 00 Center tablet pantoprazol Yes 20mg QD Take [address] [facility] e 7-12 by mouth [facility] (PROTONIX) 00:00: daily. Medic al 20 MG 00 Center tablet Amoxicillin Yes TAKE 4 Nereyda ey 500 MG oral 7-08 CAPSULES Seyb old Capsule 00:00: BY MOUTH 1 - 00 HOUR PRIOR Externa TO DENTAL l APPOINTMEN T Amoxicillin Yes TAKE 4 Nereyda ey 500 MG oral 7-08 CAPSULES Seyb old Capsule 00:00: BY MOUTH 1 - 00 HOUR PRIOR Externa TO DENTAL l APPOINTMEN T Amoxicillin Yes TAKE 4 Nereyda ey 500 MG oral 7-08 CAPSULES Seyb old Capsule 00:00: BY MOUTH 1 - 00 HOUR PRIOR Externa TO DENTAL l APPOINTMEN T Amoxicillin Yes TAKE 4 Nereyda ey 500 MG oral 7-08 CAPSULES Seyb old Capsule 00:00: BY MOUTH 1 - 00 HOUR PRIOR Externa TO DENTAL l APPOINTMEN T Amoxicillin 3- No TAKE 4 Killian sey 500 MG oral 7-08 02-23 CAPSULES Sey bold Capsule 00:00: 00:00 BY MOUTH 1 - 00 :00 HOUR PRIOR Externa TO DENTAL l APPOINTMEN T Phenazopyri 2022-0 Yes [id number] 200mg Q.[id number] Take 1 Kasia dine HCl 7- [id number] tablet Sey bold 200 MG oral 00:00: 3D (200 mg - Tablet 00 total) by Externa mouth 3 l times daily as needed for pain Phenazopyri 2-0 Yes [id number] 200mg Q.[id number] Take 1 Kasia dine HCl 7- [id number] tablet Sey bold 200 MG oral 00:00: 3D (200 mg - Tablet 00 total) by Externa mouth 3 l times daily as needed for pain Phenazopyri 2021-0 Yes [id number] 200mg Q.[id number] Take 1 Kasia dine HCl 7- [id number] tablet Sey bold 200 MG oral 00:00: 3D (200 mg - Tablet 00 total) by Externa mouth 3 l times daily as needed for pain Phenazopyri 2021-0 Yes [id number] 200mg Q.[id number] Take 1 Kasia dine HCl 7- [id number] tablet Sey bold 200 MG oral 00:00: 3D (200 mg - Tablet 00 total) by Externa mouth 3 l times daily as needed for pain Phenazopyri 2021-0 2023- No [id number] 200mg Q.[id number] Take 1 Kasia dine HCl 7-03 09- [id number] tablet Se ybold 200 MG oral 00:00: 00:00 3D (200 mg - Tablet 00 :00 total) by Externa mouth 3 l times daily as needed for pain guaiFENesin 2021-0 Yes [id number] 5mL Q.[id number] Take 5 mL Kasia -Codeine 6-15 [id number] by mouth 3 Seybold 100-10 00:00: 3D times - MG/5ML oral 00 daily as Exte rna Syrup needed for l cough guaiFENesin 2021-0 Yes [id number] 5mL Q.[id number] Take 5 mL Kasia -Codeine 6-15 [id number] by mouth 3 Seybold 100-10 00:00: 3D times - MG/5ML oral 00 daily as Exte rna Syrup needed for l cough guaiFENesin 2021-0 Yes [id number] 5mL Q.[id number] Take 5 mL Kasia -Codeine 6-15 [id number] by mouth 3 Seybold 100-10 00:00: 3D times - MG/5ML oral 00 daily as Exte rna Syrup needed for l cough guaiFENesin 0 Yes [id number] 5mL Q.[id number] Take 5 mL Kasia -Codeine 6-15 [id number] by mouth 3 Seybold 100-10 00:00: 3D times - MG/5ML oral 00 daily as Exte rna Syrup needed for l cough guaiFENesin 0 2022- No [id number] 5mL Q.[id number] Take 5 mL Kasia -Codeine 6-15 - [id number] by mouth 3 Seybold 100-10 00:00: 00:00 3D times - MG/5ML oral 00 :00 daily as Exte rna Syrup needed for l cough Aspirin 81 Yes 81mg Take 81 mg K elsey MG oral 6-06 by mouth Seybold Tablet 14:14: daily Delayed 01 Response Magnesium Yes 1 tablet Nereyda ey 250 MG oral 606 with a Seybol d Tablet 14:14: meal 01 Lansoprazol Yes 30mg Take 30 mg Kasia e 30 MG 6-06 by mouth Seybold oral 14:14: daily Delayed 01 Release Capsule Amoxicillin Yes [id number] 1{tbl} Take 1 Kasia -Pot 6-06 tablet by Seybold Clavulanate 00:00: mouth in 875-125 MG 00 the oral Tablet morning and 1 tablet in the evening. Pseudoeph-B Yes [id number] 10mL Q.25D Take 10 mL Kasia romphen-DM 6-06 by mouth 4 Sey bold (Bromfed 00:00: times DM) 30-2-10 00 daily as MG/5ML oral needed Syrup Atorvastati Yes [id number] 20mg Take 2 Kasia n Calcium 6-06 tablets Seybold 10 MG oral 00:00: (20 mg Tablet 00 total) by mouth daily Alfuzosin 0 2021- No every 24 Killian sey HCl 10 MG 6-02 11-29 hours Seybold oral TABLET 00:00: 05:59 SR 24 HR 00 :00 Alfuzosin Alfuzosin 202- No 1{table QD Alfuzosin HCl ER 10 HCl ER 10 08-07 t_immed HCl ER 10 MG MG 00:00: 00:00 iately_ MG 00 :00 after_t he_same _meal} Alfuzosin Alfuzosin 2022- No 1{table QD Alfuzosin HCl ER [...] daily Delayed 59 Release Capsule Insulin Yes [id number] Takes up K elsey Glargine 5-16 to 30 Seybold (Basaglar 00:00: units SQ KwikPen) 00 daily at 100 UNIT/ML bedtime subcutaneou s Solution Pen-injecto r Metformin Yes [id number] 1000mg Take 2 Kasia HCl 500 MG 5-16 tablets Seybol d oral Tablet 00:00: (1,000 mg 00 total) by mouth in the morning and 2 tablets (1,000 mg total) in the evening. Take with meals. Insulin Pen Yes [id number] Takes Kasia Needle 31G 5-16 insulin Seybol d X 5 MM does 00:00: once daily not apply 00 Misc Empaglifloz Yes [id number] 10mg Take 10 mg Kasia in 5-16 by mouth Seybold (Jardiance) 00:00: daily 10 MG oral 00 Tablet Continuous Yes [id number] Every 2 Kasia Blood Gluc 5-16 week Seybold Sensor 00:00: sensor (FreeStyle 00 changes Farhana 14 Day Sensor) does not apply Misc Continuous Yes [id number] Use as K elsey Blood Gluc 5-16 directed Seybo ld [employer] 00:00: (FreeStyle 00 Farhana 14 Day [place]) does not apply Device Insulin Yes [id number] Takes up K elsey Glargine 5-16 to 30 Seybold (Basaglar 00:00: units SQ KwikPen) 00 daily at 100 UNIT/ML bedtime subcutaneou s Solution Pen-injecto r Metformin Yes [id number] 1000mg Take 2 Kasia HCl 500 MG 5-16 tablets Seybol d oral Tablet 00:00: (1,000 mg 00 total) by mouth in the morning and 2 tablets (1,000 mg total) in the evening. Take with meals. Insulin Pen Yes [id number] Takes Kasia Needle 31G 5-16 insulin Seybol d X 5 MM does 00:00: once daily not apply 00 Misc Empaglifloz Yes [id number] 10mg Take 10 mg Kasia in 5-16 by mouth Seybold (Jardiance) 00:00: daily 10 MG oral 00 Tablet Continuous Yes [id number] Every 2 Kasia Blood Gluc 5-16 week Seybold Sensor 00:00: sensor (FreeStyle 00 changes Farhana 14 Day Sensor) does not apply Misc Continuous Yes [id number] Use as K elsey Blood Gluc 5-16 directed Seybo ld [employer] 00:00: (FreeStyle 00 Farhana 14 Day [place]) does not apply Device Metformin Yes [id number] 1000mg Take 2 Kasia HCl 500 MG 5-16 tablets Seybol d oral Tablet 00:00: (1,000 mg - 00 total) by Externa mouth in l the morning and 2 tablets (1,000 mg total) in the evening. Take with meals. Insulin Pen 0 Yes [id number] Takes Kasia Needle 31G 5-16 insulin Seybol d X 5 MM does 00:00: once daily - not apply 00 Externa Mis l Metformin 0 Yes [id number] 1000mg Take 2 Kasia HCl 500 MG 5-16 tablets Seybol d oral Tablet 00:00: (1,000 mg - 00 total) by Externa mouth in l the morning and 2 tablets (1,000 mg total) in the evening. Take with meals. Insulin Pen 0 Yes [id number] Takes Kasia Needle 31G 5-16 insulin Seybol d X 5 MM does 00:00: once daily - not apply 00 Externa [facility] l Metformin Yes [id number] 1000mg Take 2 Kasia HCl 500 MG 5-16 tablets Seybol d oral Tablet 00:00: (1,000 mg - 00 total) by Externa mouth in l the morning and 2 tablets (1,000 mg total) in the evening. Take with meals. Insulin Pen Yes [id number] Takes Kasia Needle 31G 5-16 insulin Seybol d X 5 MM does 00:00: once daily - not apply 00 Externa [facility] Metformin 2022- No [id number] 1000mg Take 2 Kasia HCl 500 MG 5-16 02-06 tablets Seybo ld oral Tablet 00:00: 00:00 (1,000 mg - 00 :00 total) by Externa mouth in l the morning and 2 tablets (1,000 mg total) in the evening. Take with meals. Insulin Pen 2022- No [id number] Takes Kasia Needle 31G 5-16 02-06 insulin Seybo ld X 5 MM does 00:00: 00:00 once daily - not apply 00 :00 Externa [facility] l Insulin 2- No [id number] 20U Inject 20 Kasia Aspart Prot 4-28 [...] Delayed 31 Release Capsule Insulin 2021- No [id number] 20U Inject 20 Kasia Lispro Prot 4-14 07-14 units into S eybold & Lispro 00:00: 04:59 the skin (HUMALOG 00 :00 in the KWIKPEN) morning (75-25) 100 and 20 UNIT/ML units in subcutaneou the s evening. Suspension Pen-injecto r Insulin 2021- No [id number] 25 units K elsey Glargine 4-05 04-14 [...] :00 daily Health) oral Capsule Docusate Yes [id number] 100mg Take 100 Kasia Sodium 100 3-17 mg by Seybold MG oral 00:00: mouth - Tablet 00 daily Externa l Docusate 2021-0 Yes [id number] 100mg Take 100 Kasia Sodium 100 3-17 mg by Seybold MG oral 00:00: mouth Tablet 00 daily Docusate 2021-0 Yes [id number] 100mg Take 100 Kasia Sodium 100 3-17 mg by Seybold MG oral 00:00: mouth Tablet 00 daily Docusate 2021-0 Yes [id number] 100mg Take 100 Kasia Sodium 100 3-17 mg by Seybold MG oral 00:00: mouth Tablet 00 daily Docusate 2021-0 Yes [id number] 100mg Take 100 Kasia Sodium 100 3-17 mg by Seybold MG oral 00:00: mouth Tablet 00 daily Docusate 2021-0 Yes [id number] 100mg Take 100 Kasia Sodium 100 3-17 mg by Seybold MG oral 00:00: mouth - Tablet 00 daily Externa l Docusate 2021-0 Yes [id number] 100mg Take 100 Kasia Sodium 100 3-17 mg by Seybold MG oral 00:00: mouth - Tablet 00 daily Externa l Docusate 2021-0 Yes [id number] 100mg Take 100 Kasia Sodium 100 3-17 mg by Seybold MG oral 00:00: mouth - Tablet 00 daily Externa l Docusate 2021-0 Yes [id number] 100mg Take 100 Kasia Sodium 100 3-17 mg by Seybold MG oral 00:00: mouth - Tablet 00 daily Externa l Metformin 2021-0 Yes [id number] 1000mg TAKE 2 Kasia HCl 500 MG 3-15 TABLETS Seybol d oral Tablet 00:00: (1,000 MG 00 TOTAL) BY MOUTH 2 TIMES DAILY (WITH MEALS) Metformin 2021-0 Yes [id number] 1000mg TAKE 2 Kasia HCl 500 MG 3-15 TABLETS Seybol d oral Tablet 00:00: (1,000 MG 00 TOTAL) BY MOUTH 2 TIMES DAILY (WITH MEALS) Metformin 2021-0 2022- No [id number] 1000mg TAKE 2 Kasia HCl 500 MG 3-15 05-16 TABLETS Seybo ld oral Tablet 00:00: 00:00 (1,000 MG 00 :00 TOTAL) BY MOUTH 2 TIMES DAILY (WITH MEALS) Lactobacill 2021-0 Yes 1{capsu Take 1 K elsey us-Inulin 2-11 le} capsule by Seyb old (Culturelle 09:08: mouth Digestive 13 daily Health) oral Capsule Aspirin Yes 81mg Take 81 mg Nereyda ey (Aspirin 11 by mouth Seybold 81) 81 MG 09:08: daily oral Tablet 13 Delayed Response Magnesium Yes 1 tablet Nereyda ey 250 MG oral 04-18 with a Seybol d Tablet 09:08: meal 13 Insulin Yes [id number] 25 units Ke lsey Glargine 2-11 SQ daily. Seybol d (Lantus 00:00: SoloStar) 00 100 UNIT/ML subcutaneou s Solution Pen-injecto r Insulin Yes [id number] 25 units Ke lsey Glargine 2-11 SQ daily. Seybol d (Lantus 00:00: SoloStar) 00 100 UNIT/ML subcutaneou s Solution Pen-injecto r Triamcinolo 2021- No [id number] Apply to Kasia ne 04-18-12 area 2 Seybold Acetonide 00:00: 05:59 times 0.1 % apply 00 :00 daily for externally 2 weeks Cream OZEMPIC 2021- No [id number] .25mg Inject Ke lsey (0.25 or 04-1815 0.25 mg Seybold 0.5 00:00: 00:00 into the mg/dose) 2 00 :00 skin once mg/1.5 mL a week SQ Solution Pen-Injecto r Insulin 2021- No [id number] 25 units K elsey Glargine 04-18-11 SQ daily. Seybo ld (Lantus 00:00: 00:00 SoloStar) 00 :00 100 UNIT/ML subcutaneou s Solution Pen-injecto r Pantoprazol Yes [id number] 20mg Take 1 Kasia e Sodium 20 1-17 tablet (20 Se ybold MG oral 00:00: mg total) Tablet 00 by mouth Delayed daily Response Pantoprazol Yes [id number] 20mg Take 1 Kasia e Sodium 20 1-17 tablet (20 Se ybold MG oral 00:00: mg total) Tablet 00 by mouth Delayed daily Response Blood 2-0 Yes Kasia Glucose 1-17 Seybold Calibration 00:00: (True 00 Metrix Level 1) Low in vitro Solution Pantoprazol 2022-0 Yes [id number] 20mg Take 1 Kasia e Sodium 20 1-17 tablet (20 Se ybold MG oral 00:00: mg total) Tablet 00 by mouth Delayed daily Response Blood 2021-0 Yes Kasia Glucose 1-17 Seybold Calibration 00:00: (True 00 Metrix Level 1) Low in vitro Solution Pantoprazol 2-0 Yes [id number] 20mg Take 1 Kasia e Sodium 20 1-17 tablet (20 Se ybold MG oral 00:00: mg total) Tablet 00 by mouth Delayed daily Response Blood 2021-0 Yes Kasia Glucose 1-17 Seybold Calibration 00:00: (True 00 Metrix Level 1) Low in vitro Solution Pantoprazol 2-0 Yes [id number] 20mg Take 1 Kasia e Sodium 20 [...] Level 1) Low in vitro Solution Blood 2022-0 Yes Kasia Glucose 1-17 Seybold Calibration 00:00: - (True 00 Externa Metrix l Level 1) Low in vitro Solution Blood 2-0 Yes Kasia Glucose 1-17 Seybold Calibration 00:00: - (True 00 Externa Metrix l Level 1) Low in vitro Solution Blood 2-0 Yes Kasia Glucose 1-17 Seybold Calibration 00:00: - (True 00 Externa Metrix l Level 1) Low in vitro Solution Blood 2-0 3- No Kasia Glucose 1-17 02-23 Seybold Calibration 00:00: 00:00 - (True 00 :00 Externa Metrix l Level 1) Low in vitro Solution TRUEplus 2022-0 Yes [id number] 1{each} 1 each by Kasia Evans 33G 1-13 does not Seyb old does not 00:00: apply - apply Misc 00 route 3 Handle Finisher a times l daily Alcohol Yes [id number] Use as Nereyda ey Swabs (B-D 1-13 directed Seybo ld SINGLE USE 00:00: three - SWABS 00 times Externa REGULAR) daily l does not apply Pads Amlodipine Yes [id number] 5mg Take 1 K elsey Besylate 5 -13 tablet (5 Seyb old MG oral 00:00: mg total) Tablet 00 by mouth daily Celecoxib Yes [id number] 200mg Take 1 K elsey 200 MG oral 1-13 capsule Seybo ld Capsule 00:00: (200 mg 00 total) by mouth 2 times daily Rosuvastati Yes [id number] 10mg Take 1 Kasia n Calcium 1-13 tablet (10 Seyb old 10 MG oral 00:00: mg total) Tablet 00 by mouth daily Lisinopril Yes [id number] 20mg Take 1 K elsey 20 MG oral 1-13 tablet (20 Sey bold Tablet 00:00: mg total) 00 by mouth daily Ferrous 0 Yes [id number] 325mg Take 1 Killian sey Sulfate 325 -13 tablet Seybol d (65 Fe) MG 00:00: (325 mg oral Tablet 00 total) by mouth daily (with breakfast) TRUEplus Yes [id number] 1{each} 1 each by Kasia Lancets 33G 1-13 does not Seyb old does not 00:00: apply apply Misc 00 route 3 times daily Alcohol Yes [id number] Use as Nereyda ey Swabs (B-D 1-13 directed Seybo ld SINGLE USE 00:00: three SWABS 00 times REGULAR) daily does not apply Pads Glucose 0 Yes [id number] Use as Nereyda ey Blood in 13 directed Seybold vitro Strip 00:00: three 00 times daily Metoprolol 0 Yes [id number] 100mg Take 1 Kasia Succinate 1-13 tablet Seybold 100 MG oral 00:00: (100 mg TABLET SR 00 total) by 24 HR mouth daily Blood 2021-0 Yes [id number] 1{each} 1 each by Kasia Glucose -13 does not Seybold Monitoring 00:00: apply Suppl (True 00 route 3 Metrix times Meter) daily USE w/Device does not DIRECTED apply Kit TO CHECK BLOOD SUGAR THREE TIMES DAILY Amlodipine Yes [id number] 5mg Take 1 K elsey Besylate 5 1-13 tablet (5 Seyb old MG oral 00:00: mg total) Tablet 00 by mouth daily Celecoxib Yes [id number] 200mg Take 1 K elsey 200 MG oral 1-13 capsule Seybo ld Capsule 00:00: (200 mg 00 total) by mouth 2 times daily Rosuvastati Yes [id number] 10mg Take 1 Kasia n Calcium 1-13 tablet (10 Seyb old 10 MG oral 00:00: mg total) Tablet 00 by mouth daily Lisinopril Yes [id number] 20mg Take 1 K elsey 20 MG oral 1-13 tablet (20 Sey bold Tablet 00:00: mg total) 00 by mouth daily Ferrous Yes [id number] 325mg Take 1 Killian sey Sulfate 325 1-13 tablet Seybol d (65 Fe) MG 00:00: (325 mg oral Tablet 00 total) by mouth daily (with breakfast) TRUEplus Yes [id number] 1{each} 1 each by Kasia Lancets 33G 1-13 does not Seyb old does not 00:00: apply apply Misc 00 route 3 times daily Alcohol Yes [id number] Use as Nereyda ey Swabs (B-D 1-13 directed Seybo ld SINGLE USE 00:00: three SWABS 00 times REGULAR) daily does not apply Pads Metoprolol Yes [id number] 100mg Take 1 Kasia Succinate 1-13 tablet Seybold 100 MG oral 00:00: (100 mg TABLET SR 00 total) by 24 HR mouth daily Blood Yes [id number] 1{each} 1 each by Kasia Glucose 1-13 does not Seybold Monitoring 00:00: apply Suppl (True 00 route 3 Metrix times Meter) daily USE w/Device does not DIRECTED apply Kit TO CHECK BLOOD SUGAR THREE TIMES DAILY Amlodipine Yes [id number] 5mg Take 1 K elsey Besylate 5 1-13 tablet (5 Seyb old MG oral 00:00: mg total) Tablet 00 by mouth daily Celecoxib Yes [id number] 200mg Take 1 K elsey 200 MG oral 1-13 capsule Seybo ld Capsule 00:00: (200 mg 00 total) by mouth 2 times daily Rosuvastati Yes [id number] 10mg Take 1 Kasia n Calcium 1-13 tablet (10 Seyb old 10 MG oral 00:00: mg total) Tablet 00 by mouth daily Lisinopril Yes [id number] 20mg Take 1 K elsey 20 MG oral 1-13 tablet (20 Sey bold Tablet 00:00: mg total) 00 by mouth daily Ferrous Yes [id number] 325mg Take 1 Killian sey Sulfate 325 1-13 tablet Seybol d (65 Fe) MG 00:00: (325 mg oral Tablet 00 total) by mouth daily (with breakfast) TRUEplus Yes [id number] 1{each} 1 each by Kasia Lancets 33G 1-13 does not Seyb old does not 00:00: apply apply Misc 00 route 3 times daily Alcohol Yes [id number] Use as Nereyda ey Swabs (B-D 1-13 directed Seybo ld SINGLE USE 00:00: three SWABS 00 times REGULAR) daily does not apply Pads Metoprolol Yes [id number] 100mg Take 1 Kasia Succinate 1-13 tablet Seybold 100 MG oral 00:00: (100 mg TABLET SR 00 total) by 24 HR mouth daily Blood Yes [id number] 1{each} 1 each by Kasia Glucose 1-13 does not Seybold Monitoring 00:00: apply Suppl (True 00 route 3 Metrix times Meter) daily USE w/Device does not DIRECTED apply Kit TO CHECK BLOOD SUGAR THREE TIMES DAILY Amlodipine Yes [id number] 5mg Take 1 K elsey Besylate 5 1-13 tablet (5 Seyb old MG oral 00:00: mg total) Tablet 00 by mouth daily Celecoxib Yes [id number] 200mg Take 1 K elsey 200 MG oral 1-13 capsule Seybo ld Capsule 00:00: (200 mg 00 total) by mouth 2 times daily Rosuvastati Yes [id number] 10mg Take 1 Kasia n Calcium 1-13 tablet (10 Seyb old 10 MG oral 00:00: mg total) Tablet 00 by mouth daily Lisinopril Yes [id number] 20mg Take 1 K elsey 20 MG oral 1-13 tablet (20 Sey bold Tablet 00:00: mg total) 00 by mouth daily Ferrous Yes [id number] 325mg Take 1 Killian sey Sulfate 325 1-13 tablet Seybol d (65 Fe) MG 00:00: (325 mg oral Tablet 00 total) by mouth daily (with breakfast) TRUEplus Yes [id number] 1{each} 1 each by Kasia Martinezets 33G 1- does not Seyb old does not 00:00: apply apply Misc 00 route 3 times daily Alcohol Yes [id number] Use as Nereyda ey Swabs (B-D 03-20 directed Seybo ld SINGLE USE 00:00: three SWABS 00 times REGULAR) daily does not apply Pads Metoprolol Yes [id number] 100mg Take 1 Kasia Succinate 1-13 tablet Seybold 100 MG oral 00:00: (100 mg TABLET SR 00 total) by 24 HR mouth daily Blood Yes [id number] 1{each} 1 each by Kasia Glucose - does not Seybold Monitoring 00:00: apply Suppl (True 00 route 3 Metrix times Meter) daily USE w/Device does not DIRECTED apply Kit TO CHECK BLOOD SUGAR THREE TIMES DAILY Amlodipine Yes [id number] 5mg Take 1 K elsey Besylate 5 -13 tablet (5 Seyb old MG oral 00:00: mg total) Tablet 00 by mouth daily Celecoxib Yes [id number] 200mg Take 1 K elsey 200 MG oral 1-13 capsule Seybo ld Capsule 00:00: (200 mg 00 total) by mouth 2 times daily Lisinopril Yes [id number] 20mg Take 1 K elsey 20 MG oral 1-13 tablet (20 Sey bold Tablet 00:00: mg total) 00 by mouth daily Ferrous Yes [id number] 325mg Take 1 Killian sey Sulfate 325 1-13 tablet Seybol d (65 Fe) MG 00:00: (325 mg oral Tablet 00 total) by mouth daily (with breakfast) TRUEplus Yes [id number] 1{each} 1 each by Kasia Lancets 33G 1-13 does not Seyb old does not 00:00: apply apply Misc 00 route 3 times daily Alcohol Yes [id number] Use as Nereyda ey Swabs (B-D - directed Seybo ld SINGLE USE 00:00: three SWABS 00 times REGULAR) daily does not apply Pads Metoprolol Yes [id number] 100mg Take 1 Kasia Succinate 1-13 tablet Seybold 100 MG oral 00:00: (100 mg TABLET SR 00 total) by 24 HR mouth daily Blood Yes [id number] 1{each} 1 each by Kasia Glucose 03-20 does not Seybold Monitoring 00:00: apply Suppl (True 00 route 3 Metrix times Meter) daily USE w/Device does not DIRECTED apply Kit TO CHECK BLOOD SUGAR THREE TIMES DAILY Celecoxib Yes [id number] 200mg Take 1 K elsey 200 MG oral 03-20 capsule Seybo ld Capsule 00:00: (200 mg - 00 total) by Externa mouth 2 l times daily Ferrous Yes [id number] 325mg Take 1 Killian sey Sulfate 325 - tablet Seybol d (65 Fe) MG 00:00: (325 mg - oral Tablet 00 total) by Ext sharlene mouth l daily (with breakfast) TRUEplus Yes [id number] 1{each} 1 each by Kaisa Lancets 33G 03-20 does not Seyb old does not 00:00: apply - apply Misc 00 route 3 Handle Finisher a times l daily Alcohol Yes [id number] Use as Nereyda ey Swabs (B-D 03-20 directed Seybo ld SINGLE USE 00:00: three - SWABS 00 times Externa REGULAR) daily l does not apply Pads Metoprolol Yes [id number] 100mg Take 1 Kasia Succinate 1-13 tablet Seybold 100 MG oral 00:00: (100 mg - TABLET SR 00 total) by Exter na 24 HR mouth l daily Blood Yes [id number] 1{each} 1 each by Kasia Glucose 13 does not Seybold Monitoring 00:00: apply - Suppl (True 00 route 3 Exter na Metrix times l Meter) daily USE w/Device does not DIRECTED apply Kit TO CHECK BLOOD SUGAR THREE TIMES DAILY Celecoxib Yes [id number] 200mg Take 1 K elsey 200 MG oral 1-13 capsule Seybo ld Capsule 00:00: (200 mg - 00 total) by Externa mouth 2 l times daily Ferrous Yes [id number] 325mg Take 1 Killian sey Sulfate 325 1-13 tablet Seybol d (65 Fe) MG 00:00: (325 mg - oral Tablet 00 total) by Ext sharlene mouth l daily (with breakfast) TRUEplus 0 Yes [id number] 1{each} 1 each by Kasia Lancets 33G 1- does not Seyb old does not 00:00: apply - apply Misc 00 route 3 Handle Finisher a times l daily Alcohol Yes [id number] Use as Nereyda ey Swabs (B-D 03-20 directed Seybo ld SINGLE USE 00:00: three - SWABS 00 times Externa REGULAR) daily l does not apply Pads Metoprolol Yes [id number] 100mg Take 1 Kasia Succinate 1-13 tablet Seybold 100 MG oral 00:00: (100 mg - TABLET SR total) by Exter na 24 HR mouth l daily Blood 0 Yes [id number] 1{each} 1 each by Kasia Glucose 1- does not Seybold Monitoring 00:00: apply - Suppl (True 00 route 3 Exter na Metrix times l Meter) daily USE w/Device does not DIRECTED apply Kit TO CHECK BLOOD SUGAR THREE TIMES DAILY Celecoxib Yes [id number] 200mg Take 1 K elsey 200 MG oral 1-13 capsule Seybo ld Capsule 00:00: (200 mg - 00 total) by Externa mouth 2 l times daily TRUEplus 0 Yes [id number] 1{each} 1 each by Kasia Lancets 33G 03-20 does not Seyb old does not 00:00: apply - apply Misc 00 route 3 Handle Finisher a times l daily Alcohol 2021-0 Yes [id number] Use as Nereyda ey Swabs (B-D 03-20 directed Seybo ld SINGLE USE 00:00: three - SWABS 00 times Externa REGULAR) daily l does not apply Pads Blood 2021-0 Yes [id number] 1{each} 1 each by Kasia Glucose 1-13 does not Seybold Monitoring 00:00: apply - Suppl (True 00 route 3 Exter na Metrix times l Meter) daily USE w/Device does not DIRECTED apply Kit TO CHECK BLOOD SUGAR THREE TIMES DAILY TRUEplus 2021-0 Yes [id number] 1{each} 1 each by Kasia Lancets 33G 03-20 does not Seyb old does not 00:00: apply - apply Misc 00 route 3 Handle Finisher a times l daily Alcohol 2021-0 Yes [id number] Use as Nereyda ey Swabs (B-D 03-20 directed Seybo ld SINGLE USE 00:00: three - SWABS 00 times Externa REGULAR) daily l does not apply Pads Blood 2021-0 Yes [id number] 1{each} 1 each by Kasia Glucose 03-20 does not Seybold Monitoring 00:00: apply - Suppl (True 00 route 3 Exter na Metrix times l Meter) daily USE w/Device does not DIRECTED apply Kit TO CHECK BLOOD SUGAR THREE TIMES DAILY metoprolol 2021-0 Yes 100mg QD Take [address] [facility] [address] succinate 1-13 mg by [facility] (TOPROL-XL) 00:00: mouth Medic al 100 MG 24 00 daily. Center hr tablet ferrous 2021-0 Yes 325mg QD Take 325 [facility] sulfate 325 1-[facility] (65 FE) MG 00:00: mouth Medica l tablet 00 daily. Center celecoxib 2021-0 Yes 200mg Q.5D Take [address] [facility] (CeleBREX) 1-13 mg by [facility] 200 MG 00:00: mouth 2 Medical capsule 00 (two) Center times daily. metoprolol 2021-0 Yes 100mg QD Take [address] succinate 1-13 mg by [facility] (TOPROL-XL) 00:00: mouth Medic al 100 MG 24 00 daily. Center hr tablet ferrous 2021-0 Yes 325mg QD Take 325 [facility] sulfate 325 1-13 [facility] (65 FE) MG 00:00: mouth Medica l tablet 00 daily. Center celecoxib 2-0 Yes 200mg Q.5D Take [address] (CeleBREX) 1-13 mg by [facility] 200 MG 00:00: mouth 2 Medical capsule 00 (two) Center times daily. Blood 2021-0 2023- No [id number] 1{each} 1 each by Kasia Glucose 03-20 does not Seybold Monitoring 00:00: 00:00 apply - Suppl (True 00 :00 route 3 Exter na Metrix times l Meter) daily USE w/Device does not DIRECTED apply Kit TO CHECK BLOOD SUGAR THREE TIMES DAILY Rosuvastati 2021- No [id number] 10mg Take 1 Kasia n Calcium 03-20 tablet (10 Sey bold 10 MG oral 00:00: 00:00 mg total) Tablet 00 :00 by mouth daily Glucose 2021- No [id number] Use as Killian sey Blood in 03-20 directed Seybol d vitro Strip 00:00: 00:00 three 00 :00 times daily Sulfamethox 2020-03 Yes [id number] 1{tbl} Take 1 Kasia azole-Trime 2-30 tablet by Sey bold thoprim 00:00: mouth 400-80 MG 00 daily oral Tablet Sulfamethox 2020-03- No [id number] 1{tbl} Take 1 Kasia azole-Trime 2-30 05-22 tablet by Se ybold thoprim 00:00: 00:00 mouth 400-80 MG 00 :00 daily oral Tablet Nitrofurant 2020-03 Yes [id number] 100mg Take 1 Kasia oin Monohyd 2-29 capsule Seybo ld Macro 00:00: (100 mg (Macrobid) 00 total) by 100 MG oral mouth Capsule daily Vitamin D, 2020-03 Yes [id number] 1{tbl} Take 1 Kasia Cholecalcif 2-27 tablet by Sey bold maritza, 25 00:00: mouth - MCG (1000 00 daily Externa UT) oral l Capsule Vitamin D, 2020-03 Yes [id number] 1{tbl} Take 1 Kasia Cholecalcif 2-27 tablet by Sey bold maritza, 25 00:00: mouth MCG (1000 00 daily UT) oral Capsule Vitamin D, 2020-03 Yes [id number] 1{tbl} Take 1 Kasia Cholecalcif 2-27 tablet by Sey bold maritza, 25 00:00: mouth MCG (1000 00 daily UT) oral Capsule Vitamin D, 2020-03 Yes [id number] 1{tbl} Take 1 Kasia Cholecalcif 2-27 tablet by Sey bold maritza, 25 00:00: mouth MCG (1000 00 daily UT) oral Capsule Vitamin D, 2020-03 Yes [id number] 1{tbl} Take 1 Kasia Cholecalcif 2-27 tablet by Sey bold maritza, 25 00:00: mouth MCG (1000 00 daily UT) oral Capsule Vitamin D, 2020-03 Yes [id number] 1{tbl} Take 1 Kasia Cholecalcif 2-27 tablet by Sey bold maritza, 25 00:00: mouth MCG (1000 00 daily UT) oral Capsule Vitamin D, 2020-03 Yes [id number] 1{tbl} Take 1 Kasia Cholecalcif 2-27 tablet by Sey bold maritza, 25 00:00: mouth MCG (1000 00 daily UT) oral Capsule Vitamin D, 2020-03 Yes [id number] 1{tbl} Take 1 Kasia Cholecalcif 2-27 tablet by Sey bold maritza, 25 00:00: mouth - MCG (1000 00 daily Externa UT) oral l Capsule Vitamin D, 2020-03 Yes [id number] 1{tbl} Take 1 Kasia Cholecalcif 2-27 tablet by Seladarius bold maritza, 25 00:00: mouth - MCG (1000 00 daily Externa UT) oral l Capsule Vitamin D, 2020-03 Yes [id number] 1{tbl} Take 1 Kasia Cholecalcif 2-27 tablet by Seladarius bold maritza, 25 00:00: mouth - MCG (1000 00 daily Externa UT) oral l Capsule Vitamin D, 2020-03 Yes [id number] 1{tbl} Take 1 Kasia Cholecalcif 2-27 tablet by Sey bold maritza, 25 00:00: mouth - MCG (1000 00 daily Externa [facility]) oral l Capsule cholecalcif 2020-03 Yes 1{tbl} QD Take [address] [facility] [address] [facility] maritza 2-27 tablet by [facility] (Vitamin 00:00: mouth Medical D3) 25 mcg 00 daily. Center (1,000 unit) tablet cholecalcif 2020-03 Yes 1{tbl} QD Take [address] [facility] [address] [facility] maritza 2-27 tablet by [facility] (Vitamin 00:00: mouth Medical D3) 25 mcg 00 daily. Center (1,000 unit) tablet Ciprofloxac 2020-03- No [id number] 500mg Take 1 Kasia in HCl 2-27 03-11 tablet Seybold (Cipro) 500 00:00: 05:59 (500 mg MG oral 00 :00 total) by Tablet mouth 2 times daily for 7 days Metformin 2020-03 Yes [id number] 1000mg Take 2 Kasia HCl 500 MG 2-23 tablets Seybol d oral Tablet 00:00: (1,000 mg 00 total) by mouth 2 times daily (with meals) Famotidine 2020-03 Yes [id number] 20mg Take 1 Kasia (PEPCID) 20 2-23 tablet (20 Se ybold MG oral 00:00: mg total) tablet 00 by mouth 2 times daily Metformin 2020-03 Yes [id number] 1000mg Take 2 Kasia HCl 500 MG 2-23 tablets Seybol d oral Tablet 00:00: (1,000 mg 00 total) by mouth 2 times daily (with meals) Famotidine 2020-03 Yes [id number] 20mg Take 1 Kasia (PEPCID) 20 2-23 tablet (20 Se ybold MG oral 00:00: mg total) tablet 00 by mouth 2 times daily Metformin 2020-03 Yes [id number] 1000mg Take 2 Kasia HCl 500 MG 2-23 tablets Seybol d oral Tablet 00:00: (1,000 mg 00 total) by mouth 2 times daily (with meals) Famotidine 2020-03 Yes [id number] 20mg Take 1 Kasia (PEPCID) 20 2-23 tablet (20 Se ybold MG oral 00:00: mg total) tablet 00 by mouth 2 times daily Famotidine 2020-03- No [id number] 20mg Take 1 Kasia (PEPCID) 20 2-23 03-17 tablet (20 S eybold MG oral 00:00: 00:00 mg total) tablet 00 :00 by mouth 2 times daily Celecoxib 2020-03 Yes [id number] TAKE 1 Ke lsey 200 MG oral 1-30 CAPSULE BY Se ybold Capsule 00:00: MOUTH 2 00 TIMES DAILY. Celecoxib 2020-03 Yes [id number] TAKE 1 Ke lsey 200 MG oral 1-30 CAPSULE BY Se ybold Capsule 00:00: MOUTH 2 00 TIMES DAILY. Famotidine 2020-03- No [id number] TAKE 1 Kasia (PEPCID) 20 1-23 12-23 [id number] TABLET BY Seybold MG oral 00:00: 00:00 MOUTH tablet 00 :00 TWICE A DAY Lansoprazol 2020-03 Yes [id number] 30mg Take 1 Kasia e 30 MG 1-15 tablet (30 Seybol d oral Tablet 00:00: mg total) Delayed 00 by mouth Release daily Dispersible Lansoprazol 2020-03 Yes [id number] 30mg Take 1 Kasia e 30 MG [...] 00:00: 00:00 00 :00 Nitrofurant 2020-03 Yes [id number] 100mg Take 1 Kasia oin Monohyd 1-09 capsule Seybo ld Macro 00:00: (100 mg (Macrobid) 00 total) by 100 MG oral mouth 2 Capsule times daily Nitrofurant 2020-03 Yes [id number] 100mg Take 1 Kasia oin Monohyd 1-09 capsule Seybo ld Macro 00:00: (100 mg (Macrobid) 00 total) by 100 MG oral mouth 2 Capsule times daily Nitrofurant 2020-03 Yes [id number] 100mg Take 1 Kasia oin Monohyd 1-09 capsule Seybo ld Macro 00:00: (100 mg (Macrobid) 00 total) by 100 MG oral mouth 2 Capsule times daily Nitrofurant 2020-03- No [id number] 100mg Take 1 Kasia oin Monohyd 1-09 -17 capsule Seyb old Macro 00:00: 00:00 (100 mg (Macrobid) 00 :00 total) by 100 MG oral mouth 2 Capsule times daily Lactobacill 2020-03 Yes 1{capsu Take 1 K elsey us-Inulin -08 le} capsule by Seyb old (Culturelle 14:36: [...] Tablet 14:36: meal 01 Lansoprazol 2020-03 Yes [id number] 30mg Take 1 Kasia e 30 MG 1-08 tablet (30 Seybol d oral Tablet 00:00: mg total) Delayed 00 by mouth Release daily Dispersible Alum & Mag 2020-03 Yes [id number] 15mL Take 15 mL Kasia Hydroxide-S 1-08 by mouth Dilcia parra imeth 00:00: every 4 to (Alumina-Ma 00 6 hours as gnesia-Rosetta needed thicone) (gas) 200-200-20 MG/5ML oral Suspension Sennosides 2020-03 Yes [id number] 1{capsu Take 1 Ksaia (Senna) 8.6 1-08 le} capsule by Se ybold MG oral 00:00: mouth Capsule 00 nightly Celecoxib 2020-03 Yes [id number] 200mg Take 1 K elsey (CeleBREX) 1-08 capsule Seybol d 200 MG oral 00:00: (200 mg Capsule 00 total) by mouth 2 times daily Alum & Mag 2020-03 Yes [id number] 15mL Take 15 mL Kasia Hydroxide-S 1-08 by mouth Seyb old imeth 00:00: every 4 to (Alumina-Ma 00 6 hours as gnesia-[place] needed thicone) (gas) 200-200-20 MG/5ML oral Suspension Sennosides 2020-03 Yes [id number] 1{capsu Take 1 Kasia (Senna) 8.6 1-08 le} capsule by Se ybold MG oral 00:00: mouth Capsule 00 nightly Alum & Mag 2020-03 Yes [id number] 15mL Take 15 mL Kasia Hydroxide-S 1-08 by mouth Seyb old imeth 00:00: every 4 to (Alumina-Ma 00 6 hours as gnesia-[place] needed thicone) (gas) 200-200-20 MG/5ML oral Suspension Sennosides 2020-03 Yes [id number] 1{capsu Take 1 Kasia (Senna) 8.6 1-08 le} capsule by Se ybold MG oral 00:00: mouth Capsule 00 nightly Alum & Mag 2020-03 Yes [id number] 15mL Take 15 mL Kasia Hydroxide-S 1-08 by mouth Seyb old imeth 00:00: every 4 to (Alumina-Ma 00 6 hours as gnesia-[place] needed thicone) (gas) 200-200-20 MG/5ML oral Suspension Sennosides 2020-03 Yes [id number] 1{capsu Take 1 Kasia (Senna) 8.6 1-08 le} capsule by Se ybold MG oral 00:00: mouth Capsule 00 nightly Alum & Mag 2020-03 Yes [id number] 15mL Take 15 mL Kasia Hydroxide-S 1-08 by mouth Seyb old imeth 00:00: every 4 to (Alumina-Ma 00 6 hours as gnesia-[place] needed thicone) (gas) 200-200-20 MG/5ML oral Suspension Alum & Mag 2020-03 Yes [id number] 15mL Take 15 mL Kasia Hydroxide-S 1-08 by mouth Seyb old imeth 00:00: every 4 to (Alumina-Ma 00 6 hours as gnesia-[place] needed thicone) (gas) 200-200-20 MG/5ML oral Suspension Alum & Mag 2020-03 Yes [id number] 15mL Take 15 mL Kasia Hydroxide-S 1-08 by mouth Seyb old imeth 00:00: every 4 to (Alumina-Ma 00 6 hours as gnesia-[place] needed thicone) (gas) 200-200-20 MG/5ML oral Suspension Alum & Mag 2020-03 Yes [id number] 15mL Take 15 mL Kasia Hydroxide-S 1-08 by mouth Seyb old imeth 00:00: every 4 to (Alumina-Ma 00 6 hours as gnesia-[place] needed thicone) (gas) 200-200-20 MG/5ML oral Suspension Sennosides 2020-03- No [id number] 1{capsu Take 1 Kasia (Senna) 8.6 03-15 [...] mouth daily (with breakfast) Famotidine 2020-03 Yes [id number] 20mg Take 1 Kasia (PEPCID) 20 0-28 [id number] tablet (20 Seybold MG oral 00:00: mg total) tablet 00 by mouth 2 times daily Ibuprofen 2020-03- No [id number] 800mg Q6H Take 1 Kasia 800 MG oral 0-28 08 [id number] tablet Sey bold Tablet 00:00: 00:00 (800 [...] ey HCl 500 MG 0-20 tablets by [place]our[place] bold oral Tablet 09:08: mouth 39 daily (with breakfast) Magnesium 2020-03 Yes 1 tablet Nereyda ey 250 MG oral 0-20 with a Seybol d Tablet 09:08: meal 39 Phenazopyri 2020-03 Yes [id number] 200mg Q.[id number] Take 1 Kasia dine HCl 0-20 [id number] tablet [place] bold 200 MG oral 00:00: 3D (200 mg Tablet 00 total) by mouth 3 times daily as needed for pain Continuous 2020-03 Yes [id number] 1{each} 1 each by Kaisa Blood Gluc 0-20 does not Seybo ld Sensor 00:00: apply (FreeStyle 00 route 3 Farhana 2 times Sensor) daily does not apply Misc Phenazopyri 2020-03 Yes [id number] 200mg Q.[id number] Take 1 Kasia dine HCl 0-20 [id number] tablet Sey bold 200 MG oral 00:00: 3D (200 mg Tablet 00 total) by mouth 3 times daily as needed for pain Continuous 2020-03 Yes [id number] 1{each} 1 each by Kasia Blood Gluc 0-20 does not Seybo ld Sensor 00:00: apply (FreeStyle 00 route 3 Farhana 2 times Sensor) daily does not apply Misc Phenazopyri 2020-03 Yes [id number] 200mg Q.[id number] Take 1 Kasia dine HCl 0-20 [id number] tablet Sey bold 200 MG oral 00:00: 3D (200 mg Tablet total) by mouth 3 times daily as needed for pain Continuous 2020-03 Yes [id number] 1{each} 1 each by Kasia Blood Gluc 0-20 does not Seybo ld Sensor 00:00: apply (FreeStyle 00 route 3 Farhana 2 times Sensor) daily does not apply Misc Phenazopyri 2020-03 Yes [id number] 200mg Q.[id number] Take 1 Kasia dine HCl 0-20 [id number] tablet Sey bold 200 MG oral 00:00: 3D (200 mg Tablet total) by mouth 3 times daily as needed for pain Continuous 2020-03 Yes [id number] 1{each} 1 each by Kasia Blood Gluc 0-20 does not Seybo ld Sensor 00:00: apply (FreeStyle 00 route 3 Farhana 2 times Sensor) daily does not apply Misc Phenazopyri 2020-03 Yes [id number] 200mg Q.[id number] Take 1 Kasia dine HCl 0-20 [id number] tablet Sey bold 200 MG oral 00:00: 3D (200 mg Tablet 00 total) by mouth 3 times daily as needed for pain Continuous 2020-03 Yes [id number] 1{each} 1 each by Kasia Blood Gluc 0-20 does not Seybo ld Sensor 00:00: apply (FreeStyle 00 route 3 Farhana 2 times Sensor) daily does not apply Misc Phenazopyri 2020-03- No [id number] 200mg Q.[id number] Take 1 Kasia dine HCl 0-20 -17 [id number] tablet ybold 200 MG oral 00:00: 00:00 3D (200 mg Tablet 00 :00 total) by mouth 3 times daily as needed for pain Continuous 2020-03- No [id number] 1{each} 1 each by Kasia Blood Gluc 0-20 -17 does not Seyb old Sensor 00:00: 00:00 apply (FreeStyle 00 :00 route 3 Farhana 2 times Sensor) daily does not apply Misc TRIMETHOPRI 2020-03- No [id number] 1{tbl} Take 1 Kasia M-SULFAMETH 0-20 10-26 tablet by Se nichols OXAZOLE 00:00: 04:59 mouth 2 (Bactrim 00 :00 times DS) 800-160 daily for MG oral 5 days Tablet Magnesium 2020-03 Yes 1 tablet Nereyda ey 250 MG oral 0-12 with a Seybol d Tablet 12:44: meal 08 Ibuprofen-F 2020-03 Yes [id number] 1{tbl} Take 1 Kasia amotidine 0-12 [id number] tablet by [place] bold 800-26.6 MG 00:00: mouth 2 oral Tablet 00 times daily Phenazopyri 2020-03 Yes [id number] 200mg Q.[id number] Take 1 Kasia dine HCl 0-12 [id number] tablet y bold 200 MG oral 00:00: 3D (200 mg Tablet 00 total) by mouth 3 times daily as needed for pain Continuous 2020-03 Yes [id number] Use as Nirav elseladarius Blood Gluc 0-12 directed Seybo ld Sensor 00:00: for (FreeStyle 00 continuous Farhana 14 glucose Day Sensor) monitoring does not with Farhana apply Misc sytem Glucose 2020-03 Yes [id number] Use as Nereyda ey Blood 0-12 directed Seybold (FreeStyle 00:00: for Precision 00 continuous Alexey Test) glucose in vitro monitoring Strip with Farhana system Ostomy 2020-03 Yes [id number] Use as Kelse y Supplies 0-12 directed Seybold (Skin Tac 00:00: for Adhesive 00 continuous Barrier glucose Wipe) does monitoring not apply with Farhana Misc system Gabapentin 2020-03 Yes [id number] 300mg Take 1 Kasia 300 MG oral 0-12 [id number] capsule Sey bold Capsule 00:00: (300 mg 00 total) by mouth 3 times daily Ibuprofen-F 2020-03 Yes [id number] 1{tbl} Take 1 Kasia amotidine 0-12 [id number] tablet by Sey bold 800-26.6 MG 00:00: mouth 2 oral Tablet 00 times daily Glucose 2020-03 Yes [id number] Use as Nereyda ey Blood 0-12 directed Seybold (FreeStyle 00:00: for Precision 00 continuous Alexey Test) glucose in vitro monitoring Strip with Farhana system Ostomy 2020-03 Yes [id number] Use as Kelse y Supplies 0-12 directed Seybold (Skin Tac 00:00: for Adhesive 00 continuous Barrier glucose Wipe) does monitoring not apply with Farhana Misc system Gabapentin 2020-03 Yes [id number] 300mg Take 1 Kasia 300 MG oral 0-12 [id number] capsule Sey bold Capsule 00:00: (300 mg 00 total) by mouth 3 times daily Glucose 2020-03 Yes [id number] Use as Nereyda ey Blood 0-12 directed Seybold (FreeStyle 00:00: for Precision 00 continuous Alexey Test) glucose in vitro monitoring Strip with Farhana system Ostomy 2020-03 Yes [id number] Use as Kelse y Supplies 0-12 directed Seybold (Skin Tac 00:00: for Adhesive 00 continuous Barrier glucose Wipe) does monitoring not apply with Farhana Misc system Gabapentin 2020-03 Yes [id number] 300mg Take 1 Kasia 300 MG oral 0-12 [id number] capsule Sey bold Capsule 00:00: (300 mg 00 total) by mouth 3 times daily Glucose 2020-03 Yes [id number] Use as Nereyda ey Blood 0-12 directed Seybold (FreeStyle 00:00: for Precision 00 continuous Alexey Test) glucose in vitro monitoring Strip with Farhana system Ostomy 2020-03 Yes [id number] Use as Kelse y Supplies 0-12 directed Seybold (Skin Tac 00:00: for Adhesive 00 continuous Barrier glucose Wipe) does monitoring not apply with Farhana Misc system Gabapentin 2020-03 Yes [id number] 300mg Take 1 Kasia 300 MG oral 0-12 [id number] capsule Sey bold Capsule 00:00: (300 mg 00 total) by mouth 3 times daily Glucose 2020-03 Yes [id number] Use as Nereyda ey Blood 0-12 directed Seybold (FreeStyle 00:00: for Precision 00 continuous Alexey Test) glucose in vitro monitoring Strip with Farhana system Ostomy 2020-03 Yes [id number] Use as Kelse y Supplies 0-12 directed Seybold (Skin Tac 00:00: for Adhesive 00 continuous Barrier glucose Wipe) does monitoring not apply with Farhana Misc system Gabapentin 2020-03 Yes [id number] 300mg Take 1 Kasia 300 MG oral 0-12 [id number] capsule Sey bold Capsule 00:00: (300 mg 00 total) by mouth 3 times daily Glucose 2020-03 Yes [id number] Use as Nereyda ey Blood 0-12 directed Seybold (FreeStyle 00:00: for Precision 00 continuous Alexey Test) glucose in vitro monitoring Strip with Farhana system Ostomy 2020-03 Yes [id number] Use as Kelse y Supplies 0-12 directed Seybold (Skin Tac 00:00: for Adhesive 00 continuous Barrier glucose Wipe) does monitoring not apply with Farhana Misc system Gabapentin 2020-03 Yes [id number] 300mg Take 1 Kasia 300 MG oral 0-12 [id number] capsule Sey bold Capsule 00:00: (300 mg 00 total) by mouth 3 times daily Glucose 2020-03- No [id number] Use as Killian sey Blood 0-12 03-17 directed Seybold (FreeStyle 00:00: 00:00 for Precision 00 :00 continuous Alexey Test) glucose in vitro monitoring Strip with Farhana system Ostomy 2020-03- No [id number] Use as Nereyda ey Supplies 0-12 03-17 directed Seybol d (Skin Tac 00:00: 00:00 for Adhesive 00 :00 continuous Barrier glucose Wipe) does monitoring not apply with Farhana Misc system Gabapentin 2020-03- No [id number] 300mg Take 1 Kasia 300 MG oral 0-12 03-17 [id number] capsule Se ybold Capsule 00:00: 00:00 (300 mg 00 :00 total) by mouth 3 times daily Phenazopyri 2020-03- No [id number] 200mg Q.[id number] Take 1 Kasia dine HCl 0-12 10-20 [id number] tablet Se ybold 200 MG oral 00:00: 00:00 3D (200 mg Tablet 00 :00 total) by mouth 3 times daily as needed for pain Continuous 2020-03- No [id number] Use as Kasia Blood Gluc 0-12 10-20 directed Seyb old Sensor 00:00: 00:00 for (FreeStyle 00 :00 continuous Farhana 14 glucose Day Sensor) monitoring does not with Farhana apply Misc sytem Nitrofurant 2020-03- No [id number] 100mg Take 1 Kasia oin Monohyd 0-12 10-18 capsule Seyb old Macro 100 00:00: 04:59 (100 mg MG oral 00 :00 total) by Capsule mouth 2 times daily for 5 days Amlodipine 2020-03 Yes [id number] 5mg Take 1 K elsey Besylate 5 0-04 tablet (5 Seyb old MG oral 00:00: mg total) Tablet 00 by mouth daily Continuous 2020-03 Yes [id number] Change the Kasia Blood Gluc 0-04 sensor Seybold Sensor 00:00: every 14 (FreeStyle 00 days Farhana 14 Day Sensor) does not apply Misc Amlodipine 2020-03 Yes [id number] 5mg Take 1 K elsey Besylate 5 0-04 tablet (5 Seyb old MG oral 00:00: mg total) Tablet 00 by mouth daily Continuous 2020-03 Yes [id number] Change the Kasia Blood Gluc 0-04 sensor Seybold Sensor 00:00: every 14 (FreeStyle 00 days Farhana 14 Day Sensor) does not apply Misc Amlodipine 2020-03 Yes [id number] 5mg Take 1 K elsey Besylate 5 0-04 tablet (5 Seyb old MG oral 00:00: mg total) Tablet 00 by mouth daily Continuous 2020-03 Yes [id number] Change the Kasia Blood Gluc 0-04 sensor Seybold Sensor 00:00: every 14 (FreeStyle 00 days Farhana 14 Day Sensor) does not apply Misc Amlodipine 2020-03 Yes [id number] 5mg Take 1 K elsey Besylate 5 0-04 tablet (5 Seyb old MG oral 00:00: mg total) Tablet 00 by mouth daily Continuous 2020-03 Yes [id number] Change the Kasia Blood Gluc 0-04 sensor Seybold Sensor 00:00: every 14 (FreeStyle 00 days Farhana 14 Day Sensor) does not apply Misc Amlodipine 2020-03 Yes [id number] 5mg Take 1 K elsey Besylate 5 0-04 tablet (5 Seyb old MG oral 00:00: mg total) Tablet 00 by mouth daily Continuous 2020-03 Yes [id number] Change the Kasia Blood Gluc 0-04 sensor Seybold Sensor 00:00: every 14 (FreeStyle 00 days Farhana 14 Day Sensor) does not apply Misc Continuous 2020-03 Yes [id number] Change the Kasia Blood Gluc 0-04 sensor Seybold Sensor 00:00: every 14 (FreeStyle 00 days Farhana 14 Day Sensor) does not apply Misc Continuous 2020-03 202- No [id number] Change the Kasia Blood Gluc 0-04 03-17 [...] Take 2 Nereyda ey HCl 500 MG - tablets by Sey bold oral Tablet 08:25: mouth 24 daily (with breakfast) Metformin Yes 2{tbl} Take 2 Nereyda ey HCl 500 MG - tablets by Sey bold oral Tablet 08:25: mouth 24 daily (with breakfast) amLODIPine- 2020- No 1{tbl} Take 1 K elsey [...] oral Tablet 47 Delayed Response Lansoprazol Yes [id number] 30mg Take 1 Kasia e 30 MG -23 tablet (30 Seybol d oral Tablet 00:00: mg total) Delayed 00 by mouth Release daily Dispersible Insulin Yes [id number] 20U Inject 20 K elsey Aspart Prot - units into Se ybold & Aspart 00:00: the skin 2 (NovoLOG 00 times Mix 70/30 daily FlexPen) (before (70-30) 100 meals) UNIT/ML subcutaneou s Suspension Pen-injecto r Glucose Yes [id number] Test 2-3 Ke lsey Blood in -23 times per Seybol d vitro Strip 00:00: day 00 Ferrous Yes [id number] 325mg Take 1 Killian sey Sulfate 325 -23 tablet Seybol d (65 Fe) MG 00:00: (325 mg oral Tablet 00 total) by mouth daily (with breakfast) Lisinopril Yes [id number] 20mg Take 1 K elsey 20 MG oral 9-23 tablet (20 Sey bold Tablet 00:00: mg total) 00 by mouth daily Metoprolol Yes [id number] 100mg Take 1 Kasia Succinate 9-23 tablet Seybold 100 MG oral 00:00: (100 mg TABLET SR 00 total) by 24 HR mouth daily Rosuvastati Yes [id number] 10mg Take 1 Kasia n Calcium 9-23 tablet (10 Seyb old 10 MG oral 00:00: mg total) Tablet 00 by mouth daily Clopidogrel Yes [id number] 75mg Take 1 Kasia Bisulfate 9-23 tablet (75 Seyb old 75 MG oral 00:00: mg total) Tablet 00 by mouth daily Lansoprazol Yes [id number] 30mg Take 1 Kasia e 30 MG 9-23 tablet (30 Seybol d oral Tablet 00:00: mg total) Delayed 00 by mouth Release daily Dispersible Insulin Yes [id number] 20U Inject 20 K elsey Aspart Prot 9-23 units into Se ybold & Aspart 00:00: the skin 2 (NovoLOG 00 times Mix 70/30 daily FlexPen) (before (70-30) 100 meals) UNIT/ML subcutaneou s Suspension Pen-injecto r Glucose Yes [id number] Test 2-3 Ke lsey Blood in 9-23 times per Seybol d vitro Strip 00:00: day 00 Ferrous Yes [id number] 325mg Take 1 Killian sey Sulfate 325 9-23 tablet Seybol d (65 Fe) MG 00:00: (325 mg oral Tablet 00 total) by mouth daily (with breakfast) Lisinopril Yes [id number] 20mg Take 1 K elsey 20 MG oral 9-23 tablet (20 Sey bold Tablet 00:00: mg total) 00 by mouth daily Metoprolol Yes [id number] 100mg Take 1 Kasia Succinate 9-23 tablet Seybold 100 MG oral 00:00: (100 mg TABLET SR 00 total) by 24 HR mouth daily Rosuvastati Yes [id number] 10mg Take 1 Kasia n Calcium 9-23 tablet (10 Seyb old 10 MG oral 00:00: mg total) Tablet 00 by mouth daily Clopidogrel Yes [id number] 75mg Take 1 Kasia Bisulfate 9-23 tablet (75 Seyb old 75 MG oral 00:00: mg total) Tablet 00 by mouth daily Insulin Yes [id number] 20U Inject 20 K elsey Aspart Prot 9-23 units into Se ybold & Aspart 00:00: the skin 2 (NovoLOG 00 times Mix 70/30 daily FlexPen) (before (70-30) 100 meals) UNIT/ML subcutaneou s Suspension Pen-injecto r Glucose Yes [id number] Test 2-3 Ke lsey Blood in 11-28 times per Seybol d vitro Strip 00:00: day 00 Ferrous Yes [id number] 325mg Take 1 Killian sey Sulfate 325 9-23 tablet Seybol d (65 Fe) MG 00:00: (325 mg oral Tablet 00 total) by mouth daily (with breakfast) Lisinopril Yes [id number] 20mg Take 1 K elsey 20 MG oral 9-23 tablet (20 Sey bold Tablet 00:00: mg total) 00 by mouth daily Metoprolol Yes [id number] 100mg Take 1 Kasia Succinate 9-23 tablet Seybold 100 MG oral 00:00: (100 mg TABLET SR 00 total) by 24 HR mouth daily Rosuvastati Yes [id number] 10mg Take 1 Kasia n Calcium 9-23 tablet (10 Seyb old 10 MG oral 00:00: mg total) Tablet 00 by mouth daily Clopidogrel Yes [id number] 75mg Take 1 Kasia Bisulfate 9-23 tablet (75 Seyb old 75 MG oral 00:00: mg total) Tablet 00 by mouth daily Insulin Yes [id number] 20U Inject 20 K elsey Aspart Prot 9-23 units into Se ybold & Aspart 00:00: the skin 2 (NovoLOG 00 times Mix 70/30 daily FlexPen) (before (70-30) 100 meals) UNIT/ML subcutaneou s Suspension Pen-injecto r Glucose Yes [id number] Test 2-3 Ke lsey Blood in 9- times per Seybol d vitro Strip 00:00: day 00 Ferrous Yes [id number] 325mg Take 1 Killian sey Sulfate 325 9-23 tablet Seybol d (65 Fe) MG 00:00: (325 mg oral Tablet 00 total) by mouth daily (with breakfast) Lisinopril Yes [id number] 20mg Take 1 K elsey 20 MG oral 9-23 tablet (20 Sey bold Tablet 00:00: mg total) 00 by mouth daily Metoprolol Yes [id number] 100mg Take 1 Kasia Succinate 9-23 tablet Seybold 100 MG oral 00:00: (100 mg TABLET SR 00 total) by 24 HR mouth daily Rosuvastati Yes [id number] 10mg Take 1 Kasia n Calcium 9-23 tablet (10 Seyb old 10 MG oral 00:00: mg total) Tablet 00 by mouth daily Clopidogrel Yes [id number] 75mg Take 1 Kasia Bisulfate 9-23 tablet (75 Seyb old 75 MG oral 00:00: mg total) Tablet 00 by mouth daily Insulin Yes [id number] 20U Inject 20 K elsey Aspart Prot 9-23 units into Se ybold & Aspart 00:00: the skin 2 (NovoLOG 00 times Mix 70/30 daily FlexPen) (before (70-30) 100 meals) UNIT/ML subcutaneou s Suspension Pen-injecto r Glucose Yes [id number] Test 2-3 Ke lsey Blood in 9- times per Seybol d vitro Strip 00:00: day 00 Clopidogrel Yes [id number] 75mg Take 1 Kasia Bisulfate 9-23 tablet (75 Seyb old 75 MG oral 00:00: mg total) Tablet 00 by mouth daily Glucose Yes [id number] Test 2-3 Ke lsey Blood in - times per Seybol d vitro Strip 00:00: day 00 Ferrous Yes [id number] 325mg Take 1 Killian sey Sulfate 325 9-23 tablet Seybol d (65 Fe) MG 00:00: (325 mg oral Tablet 00 total) by mouth daily (with breakfast) Lisinopril Yes [id number] 20mg Take 1 K elsey 20 MG oral 9-23 tablet (20 Sey bold Tablet 00:00: mg total) 00 by mouth daily Metoprolol Yes [id number] 100mg Take 1 Kasia Succinate 9-23 tablet Seybold 100 MG oral 00:00: (100 mg TABLET SR 00 total) by 24 HR mouth daily Rosuvastati Yes [id number] 10mg Take 1 Kasia n Calcium 9-23 tablet (10 Seyb old 10 MG oral 00:00: mg total) Tablet 00 by mouth daily Clopidogrel Yes [id number] 75mg Take 1 Kasia Bisulfate 9-23 tablet (75 Seyb old 75 MG oral 00:00: mg total) Tablet 00 by mouth daily Lansoprazol Yes [id number] 30mg Take 1 Kasia e 30 MG 9-23 tablet (30 Seybol d oral Tablet 00:00: mg total) Delayed 00 by mouth Release daily Dispersible Insulin Yes [id number] 20U Inject 20 K elsey Aspart Prot 9-23 units into Se ybold & Aspart 00:00: the skin 2 (NovoLOG 00 times Mix 70/30 daily FlexPen) (before (70-30) 100 meals) UNIT/ML subcutaneou s Suspension Pen-injecto r Glucose Yes [id number] Test 2-3 Ke lsey Blood in -23 times per Seybol d vitro Strip 00:00: day 00 Ferrous Yes [id number] 325mg Take 1 Killian sey Sulfate 325 9-23 tablet Seybol d (65 Fe) MG 00:00: (325 mg oral Tablet 00 total) by mouth daily (with breakfast) Lisinopril Yes [id number] 20mg Take 1 K elsey 20 MG oral 9-23 tablet (20 Sey bold Tablet 00:00: mg total) 00 by mouth daily Metoprolol Yes [id number] 100mg Take 1 Kasia Succinate 9-23 tablet Seybold 100 MG oral 00:00: (100 mg TABLET SR 00 total) by 24 HR mouth daily Rosuvastati Yes [id number] 10mg Take 1 Aksia n Calcium 9-23 tablet (10 Seyb old 10 MG oral 00:00: mg total) Tablet 00 by mouth daily Clopidogrel Yes [id number] 75mg Take 1 Kasia Bisulfate 9-23 tablet (75 Seyb old 75 MG oral 00:00: mg total) Tablet 00 by mouth daily Clopidogrel 0 2- No [id number] 75mg Take 1 Kasia Bisulfate 9-23 03-17 tablet (75 Sey bold 75 MG oral 00:00: 00:00 mg total) Tablet 00 :00 by mouth daily Glucose 2021- No [id number] Test 2-3 K elsey Blood in 11-28 03-17 times per Seybo ld vitro Strip 00:00: 00:00 day 00 :00 Insulin 2021- No [id number] 20U Inject 20 Kasia Aspart Prot 11-28 02-11 units into S eybold & Aspart 00:00: 00:00 the skin 2 (NovoLOG 00 :00 times Mix 70/30 daily FlexPen) (before (70-30) 100 meals) UNIT/ML subcutaneou s Suspension Pen-injecto r Lansoprazol 2020- No [id number] 30mg Take 1 Kasia e 30 MG [...] mouth daily Continuous Yes Change the K elsey Blood Gluc 6-02 sensor Seybold Sensor 00:00: every 14 (FreeStyle 00 days Farhana 14 Day Sensor) does not apply Misc naproxen 2019-03 Yes [id number] 550mg Take 1 Un jair sodium 1-12 tablet by ity of (ANAPROX 00:00: mouth 2 [place] DS) 550 mg 00 (two) Medical tablet times Branch daily with meals. methylPREDN 2019-03 Yes [id number] Take by Univers ISolone 1-12 mouth ity of (MEDROL, 00:00: SEE-INSTRU [place] as OSEI,) 4 mg 00 CTIONS. Medica l tablets follow Branch package directions naproxen 2019-03 Yes [id number] 550mg Take 1 Un jair sodium 1-12 tablet by ity of (ANAPROX 00:00: mouth 2 [place] DS) 550 mg 00 (two) Medical tablet times Branch daily with meals. methylPREDN 2019-03 Yes [id number] Take by Univers ISolone 1-12 mouth ity of (MEDROL, 00:00: SEE-INSTRU [place] as OSEI,) 4 mg 00 CTIONS. Medica l tablets follow Branch package directions naproxen 2019-03 Yes [id number] 550mg Take 1 Un jair sodium 1-12 tablet by ity of (ANAPROX 00:00: mouth 2 [place] DS) 550 mg 00 (two) Medical tablet times Branch daily with meals. methylPREDN 2019-03 Yes [id number] Take by Univers ISolone 1-12 mouth ity of (MEDROL, 00:00: SEE-INSTRU [place] as OSEI,) 4 mg 00 CTIONS. Medica l tablets follow Branch package directions naproxen 2019-03 Yes [id number] 550mg Take 1 Un jair sodium 1-12 tablet by ity of (ANAPROX 00:00: mouth 2 [place] DS) 550 mg 00 (two) Medical tablet times Branch daily with meals. methylPREDN 2019-03 Yes [id number] Take by Univers ISolone 1-12 mouth ity of (MEDROL, 00:00: SEE-INSTRU [place] as OSEI,) 4 mg 00 CTIONS. Medica l tablets follow Branch package directions naproxen 2019-03 Yes [id number] 550mg Take 1 Un jair sodium 1-12 tablet by ity of (ANAPROX 00:00: mouth 2 [place] DS) 550 mg 00 (two) Medical tablet times Branch daily with meals. methylPREDN 2019-03 Yes [id number] Take by Univers ISolone 1-12 mouth ity of (MEDROL, 00:00: SEE-INSTRU [place] as OSEI,) 4 mg 00 CTIONS. Medica l tablets follow Branch package directions naproxen 2019-03 Yes [id number] 550mg Take 1 Un jair sodium 1-12 tablet by ity of (ANAPROX 00:00: mouth 2 [place] DS) 550 mg 00 (two) Medical tablet times Branch daily with meals. methylPREDN 2019-03 Yes [id number] Take by Univers ISolone 1-12 mouth ity of (MEDROL, 00:00: SEE-INSTRU [place] as OSEI,) 4 mg 00 CTIONS. Medica l tablets follow Branch package directions naproxen 2019-03 Yes [id number] 550mg Take 1 Un jair sodium 1-12 tablet by ity of (ANAPROX 00:00: mouth 2 [place] DS) 550 mg 00 (two) Medical tablet times Branch daily with meals. methylPREDN 2019- Yes [id number] Take by Univers ISolone 1-12 mouth ity of (MEDROL, 00:00: SEE-INSTRU [place] as OSEI,) 4 mg 00 CTIONS. Medica l tablets follow Branch package directions naproxen 2019- Yes [id number] 550mg Take 1 Un jair sodium 1-12 tablet by ity of (ANAPROX 00:00: mouth 2 [place] DS) 550 mg 00 (two) Medical tablet times Branch daily with meals. methylPREDN 2019- Yes [id number] Take by Univers ISolone 1-12 mouth ity of (MEDROL, 00:00: SEE-INSTRU [place] OSEI,) 4 mg 00 CTIONS. Medica l tablets follow Branch package directions methocarbam 2019-03 2020- No [id number] 500mg Take 1 Univers oL 500 mg -12 -18 tablet by ity of tablet 00:00: 05:59 mouth 3 [place] 00 :00 (three) Medical times Branch daily for 5 days. methocarbam 2019-03 2020- No [id number] 500mg Take 1 Univers oL 500 mg -12 -18 tablet by ity of tablet 00:00: 05:59 [...] ity of (HUMALOG 18:30: skin. [place]) 37 Medical Branch EMPAGLIFLOZ 2020-0 Yes Take [...] under the ity of (HUMALOG 18:30: skin. [facility]) 37 Medical Branch EMPAGLIFLOZ 2020-0 Yes Take by Uni vers IN 8-08 mouth. ity of (JARDIANCE 18:30: [place] ORAL) 37 Medical Branch LISINOPRIL 2020-0 Yes None Univers 10 MG ORAL 8-08 Entered ity of TAB 18:30: [place] [address] Medical Branch METFORMIN 2020-0 Yes 500mg Take [...] under the ity of (HUMALOG 18:30: skin. [facility]) Medical Branch EMPAGLIFLOZ 2020-0 Yes Take by [...] ity of (HUMALOG 18:30: skin. [place]) 37 Medical Branch EMPAGLIFLOZ 2020-0 Yes Take [...] the ity of (HUMALOG 18:30: skin. [place]) 37 Medical Branch EMPAGLIFLOZ 2020-0 Yes Take [...] ity of (HUMALOG 18:30: skin. [place]) 37 Medical Branch EMPAGLIFLOZ 2020-0 Yes Take by Uni vers IN 8-08 mouth. ity of (JARDIANCE 18:30: [place] ORAL) 37 Medical Branch LISINOPRIL 2020-0 Yes None Univers 10 MG ORAL 8-08 Entered ity of TAB 18:30: [place] [address] Medical Branch METFORMIN 2020-0 Yes 500mg Take [...] under the ity of (HUMALOG 18:30: skin. [facility]) 37 Medical Branch EMPAGLIFLOZ 2020-0 Yes Take by Uni vers IN 8-08 mouth. ity of (JARDIANCE 18:30: [place] ORAL) 37 Medical Branch LISINOPRIL 2020-0 Yes None Univers 10 MG ORAL 8-08 Entered ity of TAB 18:30: [place] [address] Medical Branch METFORMIN 2020-0 Yes 500mg Take 500 Uni vers HCL 8-08 mg by ity of (METFORMIN 18:30: [place] 37 (two) Medical times [place] daily. PANTOPRAZOL 2020-0 Yes Take by Uni vers E SODIUM 8-08 mouth. ity of (PROTONIX 18:30: [place] ORAL) 37 Medical Branch CLOPIDOGREL 2020-0 Yes Take by Uni vers BISULFATE 8-08 mouth. ity of (PLAVIX 18:30: [place] ORAL) 37 Medical Branch INSULIN 2020-0 Yes inject Univers LISPRO 8-08 under the ity of (HUMALOG 18:30: skin. [facility]) Medical Branch EMPAGLIFLOZ 2020-0 Yes Take by Uni vers IN 8-08 mouth. ity of (JARDIANCE 18:30: [place] ORAL) 37 Medical Branch pantoprazol 2020-0 Yes 40mg 40 mg, Univ ers e 8-08 Oral, ity of (PROTONIX) 14:00: DAILY, [place] EC tablet 00 First dose Medi ranjan 40 mg on Sat Branch 10/14/19 at 0900, Until Discontinu ed, Routine LISINOPRIL 2020-0 Yes None Univers 10 MG ORAL 8-08 Entered ity of TAB 13:30: [place] [address] Medical Branch METFORMIN 2020-0 Yes 500mg Take 500 Uni vers HCL 8-08 mg by ity of (METFORMIN 13:30: [place] 37 (two) Medical times Branch daily. PANTOPRAZOL 2020-0 Yes Take by Uni vers E SODIUM 8-08 mouth. ity of (PROTONIX 13:30: [place] ORAL) Medical Branch CLOPIDOGREL 2020-0 Yes Take by Uni vers BISULFATE 8-08 mouth. ity of (PLAVIX 13:30: [place] ORAL) Medical Branch INSULIN 2020-0 Yes inject Univers LISPRO 8-08 under the ity of (HUMALOG 13:30: skin. [facility]) Medical Branch EMPAGLIFLOZ 2020-0 Yes Take by Uni vers IN 8-08 mouth. ity of (JARDIANCE 13:30: [place] ORAL) Medical Branch LISINOPRIL 2020-0 Yes None Univers 10 MG ORAL 8-08 Entered ity of TAB 13:30: [address] Branch METFORMIN 2020-0 Yes 500mg Take 500 Uni vers HCL 8-08 mg by ity of (METFORMIN 13:30: [place] 37 (two) Medical times Branch daily. PANTOPRAZOL 2020-0 Yes Take by Uni vers E SODIUM 8-08 mouth. ity of (PROTONIX 13:30: [place] ORAL) Medical Branch CLOPIDOGREL 2020-0 Yes Take by Uni vers BISULFATE 8-08 mouth. ity of (PLAVIX 13:30: [place] ORAL) Medical Branch INSULIN 2020-0 Yes inject Univers LISPRO 8-08 under the ity of (HUMALOG 13:30: skin. [facility]) Medical Branch EMPAGLIFLOZ 2020-0 Yes Take by Uni vers IN 8-08 mouth. ity of (JARDIANCE 13:30: [place] ORAL) Medical Branch LISINOPRIL 2020-0 Yes None Univers 10 MG ORAL 8-08 Entered ity of TAB 13:30: [address] Branch METFORMIN 2020-0 Yes 500mg Take 500 [...] Branch INSULIN 2020-0 Yes inject Univers LISPRO 10-13 under the ity of (HUMALOG 13:30: skin. [place]) 37 Medical Branch EMPAGLIFLOZ 2020-0 Yes Take by Uni vers IN 8 mouth. ity of (JARDIANCE 13:30: [place] ORAL) 37 Medical Branch insulin 2019-0 2020- No 15U 15 Units, Univ ers aspart 10-13- Subcutaneo ity of RAPID 03:45: 02:37 us, [...] Until Discontinu ed, Routine ibuprofen 2020-0 Yes [id number] 400mg Take 1 U nivers 400 mg 8-08 tablet by ity of tablet 00:00: mouth [place] 00 every 6 Medical (six) Branch hours as needed for Pain (scale 4-6). traMADol 50 2020-0 Yes [id number] 50mg Take 1 Univ ers mg tablet 8-08 tablet by ity o f 00:00: mouth [place] 00 every 6 Medical (six) Branch hours as needed for Pain (scale 7-10). Indication s: acute pain, chronic pain ibuprofen 2020-0 Yes [id number] 400mg Take 1 U nivers 400 mg 8-08 tablet by ity of tablet 00:00: mouth [place] 00 every 6 Medical (six) Branch hours as needed for Pain (scale 4-6). traMADol 50 2020-0 Yes [id number] 50mg Take 1 Univ ers mg tablet 8-08 tablet by ity o f 00:00: mouth [place] 00 every 6 Medical (six) Branch hours as needed for Pain (scale 7-10). Indication s: acute pain, chronic pain ibuprofen 2020-0 Yes [id number] 400mg Take 1 U nivers 400 mg [...] acute pain, chronic pain ibuprofen 2020-0 Yes [id number] 400mg Take 1 U nivers 400 mg [...] acute pain, chronic pain ibuprofen 2020-0 Yes [id number] 400mg Take 1 U nivers 400 mg [...] acute pain, chronic pain ibuprofen 2020-0 Yes [id number] 400mg Take 1 U nivers 400 mg [...] acute pain, chronic pain ibuprofen 2020-0 Yes [id number] 400mg Take 1 U nivers 400 mg [...] acute pain, chronic pain ibuprofen 2020-0 Yes [id number] 400mg Take 1 U nivers 400 mg [...] acute pain, chronic pain ibuprofen 2020-0 Yes [id number] 400mg Take 1 U nivers 400 mg [...] acute pain, chronic pain ibuprofen 2020-0 Yes [id number] 400mg Take 1 U nivers 400 mg [...] acute pain, chronic pain ibuprofen 2020-0 Yes [id number] 400mg Take 1 U nivers 400 mg [...] acute pain, chronic pain ibuprofen 2020-0 Yes [id number] 400mg Take 1 U nivers 400 mg [...] acute pain, chronic pain ibuprofen 2020-0 Yes [id number] 400mg Take 1 U nivers 400 mg [...] 1000mL at 125 Univ ers ringers IV 10-11-07 mL/hr, ity of [...] 40 mg 00 First dose Medical on [facility] Branch 10/12/19 at 0900, Until Discontinu ed, Routine Sliding 2020-0 2020- No Subcutaneo Uni vers Scale 10-11-07 us, Q6H, ity of Insulin - 11:00: 23:08 First dose [place] Aspart 00 :19 on [facility] Medical (NOVOLOG) + 10/12/19 at [facility] 0600, Testing Until Discontinu ed, Routine [...] swallow or has mental status changes. ondansetron 2020-0 Yes 4mg 4 mg, Slow Univers (ZOFRAN [...] Daphne 10/12/19 at 1709, Routine Nitrofurant Nitrofurant 2020- No Michelle 1 capsule Common oin Monohyd oin Monohyd 05-09 0602 [place] at bedtime Spirit Macro Macro 00:00: 00:00 with food - CHI 00 :00 [facility] Cefdinir Cefdinir 2020- No Michelle as Com mon 05-09 03-09 [place] directed Spirit 00:00: 00:00 - CHI 00 :00 [facility] PANTOPRAZOL Yes Take by Uni vers E SODIUM 5-05 mouth. ity of (PROTONIX 19:02: [place] ORAL) 43 Medical Branch CLOPIDOGREL Yes Take by Uni vers BISULFATE 5-05 mouth. ity of (PLAVIX 19:02: [place] ORAL) 43 Medical Branch INSULIN Yes inject Univers LISPRO 5-05 under the ity of (HUMALOG 19:02: skin. [place]) 43 Medical Branch EMPAGLIFLOZ Yes Take by [...] the ity of (HUMALOG 19:02: skin. [place]) 43 Medical Branch EMPAGLIFLOZ Yes Take by [...] the ity of (HUMALOG 19:02: skin. [place]) 43 Medical Branch EMPAGLIFLOZ Yes Take by [...] ORAL 2-01 Entered ity of TAB 14:33: [address] METFORMIN Yes 500mg Take 500 Uni vers HCL 2-01 mg by ity of (METFORMIN 14:33: mouth 2 [place] 29 (two) Medical times Branch daily. LISINOPRIL Yes None Univers 10 MG ORAL 2-01 Entered ity of TAB 14:33: [address] METFORMIN Yes 500mg Take 500 Uni vers HCL 2-01 mg by ity of (METFORMIN 14:33: mouth 2 [place] 29 (two) Medical times Branch daily. LISINOPRIL Yes None Univers 10 MG ORAL 2-01 Entered ity of TAB 14:33: [address] METFORMIN Yes 500mg Take 500 Uni vers HCL 2-01 mg by ity of (METFORMIN 14:33: mouth [place] 29 (two) Medical times Branch daily. Garlic 1000 Garlic 1000 No Garlic MG [...] Aspirin Yes Michelle 1 tablet Comm on [place] [facility] Rosuvastati Rosuvastati Yes Michelle 1 tablet Common n Calcium n Calcium [place] S pirit [facility] Metformin Metformin Yes Michelle 1 tablet Common HCl HCl Ricky with a Spirit meal [facility] Magnesium Magnesium Yes Michelle 1 tablet Common [place] with a Spirit meal [facility] Iron Iron Yes Michelle 1 tablet Common [place] [facility] Amlodipine Amlodipine Yes Michelle 1 tablet Common Besylate Besylate Ricky Spi rit [facility] Lisinopril Lisinopril Yes Michelle 1 tablet Common [place] [facility] Metoprolol Metoprolol Yes Michelle 1 tablet Common Tartrate Tartrate [place] with food [facility] Garlic Garlic Yes Michelle as Common [place] directed [facility] Aspirin 81 Aspirin 81 No 1{table [...] And Up Influenza Virus 2021-12-02 Completed Kasia burnsold - Vaccine, 00:00:00 External Quadrivalent, High Dose, Age 65 And Up Influenza Virus 2021-12-02 Completed Kasia burnsold - Vaccine, 00:00:00 External Quadrivalent, High Dose, Age 65 And Up Covid-19 Vaccine 2021-01-17 Completed Kasia mcwilliams - (Particle Code), Mrna-lnp, 00:00:00 Exter nal [place] Protein, Pf, 30mcg/0.3ml,IM Covid-19 Vaccine 2021-01-17 Completed Kasia S eybold (Particle Code), Mrna-lnp, 00:00:00 [place] Protein, Pf, 30mcg/0.3ml,IM Covid-19 Vaccine 2021-01-17 Completed Kasia S eybold ([facility]), Mrna-lnp, 00:00:00 [place] Protein, Pf, 30mcg/0.3ml,IM Covid-19 Vaccine 2021-01-17 Completed Kasia S eybold ([facility]), Mrna-lnp, 00:00:00 [place] Protein, Pf, 30mcg/0.3ml,IM Covid-19 Vaccine 2021-01-17 Completed Kasia S eybold ([facility]), Mrna-lnp, 00:00:00 [place] Protein, Pf, 30mcg/0.3ml,IM Covid-19 Vaccine 2021-01-17 Completed Kasia S eybold ([facility]), Mrna-lnp, 00:00:00 [place] Protein, Pf, 30mcg/0.3ml,IM Covid-19 Vaccine 2021-01-17 Completed Kasia S eybold ([facility]), Mrna-lnp, 00:00:00 [place] Protein, Pf, 30mcg/0.3ml,IM Covid-19 Vaccine 2021-01-17 Completed Kasia S eybold ([facility]), Mrna-lnp, 00:00:00 [place] Protein, Pf, 30mcg/0.3ml,IM Covid-19 Vaccine 2021-01-17 Completed Kasia S eybold - ([facility]), Mrna-lnp, 00:00:00 Exter nal [place] Protein, Pf, 30mcg/0.3ml,IM Covid-19 Vaccine 2021-01-17 Completed Kasia S eybold - ([facility]), Mrna-lnp, 00:00:00 Exter nal [place] Protein, Pf, 30mcg/0.3ml,IM Covid-19 Vaccine 2021-01-17 Completed Kasia S eybold - ([facility]), Mrna-lnp, 00:00:00 Exter nal [place] Protein, Pf, 30mcg/0.3ml,IM Covid-19 Vaccine 2021-01-17 Completed Kasia S eybold - (Particle Code), Mrna-lnp, 00:00:00 Exter nal [place] Protein, Pf, [...] And Up Covid-19 Vaccine 2020-07-16 Completed Kasia mcwilliams - Moderna (Spikevax), 00:00:00 Exter nal Mrna-lnp, [place] Protein, Pf Covid-19 Vaccine 2020-07-16 Completed Kasia mcwilliams (Moderna), Mrna-lnp, 00:00:00 [place] Protein, Pf, 100 Mcg/0.5ml,IM Covid-19 Vaccine 2020-07-16 Completed Kasia cuellobold (Moderna), Mrna-lnp, 00:00:00 [place] Protein, Pf, 100 Mcg/0.5ml,IM Covid-19 Vaccine 2020-07-16 Completed Kasia mcwilliams (Moderna), Mrna-lnp, 00:00:00 [place] Protein, Pf, 100 Mcg/0.5ml,IM Covid-19 Vaccine 2020-07-16 Completed Kasia mcwilliams (Moderna), Mrna-lnp, 00:00:00 [place] Protein, Pf, 100 Mcg/0.5ml,IM Covid-19 Vaccine 2020-07-16 Completed Kasia mcwilliams (Moderna), Mrna-lnp, 00:00:00 [place] Protein, Pf, 100 Mcg/0.5ml,IM Covid-19 Vaccine 2020-07-16 Completed Kasia mcwilliams Moderna (Spikevax), 00:00:00 Mrna-lnp, [place] Protein, Pf Covid-19 Vaccine 2020-07-16 Completed Kasia mcwilliams Moderna (Spikevax), 00:00:00 Mrna-lnp, [place] Protein, Pf Covid-19 Vaccine 2020-07-16 Completed Kasia mcwilliams Moderna (Spikevax), 00:00:00 Mrna-lnp, [place] Protein, Pf Covid-19 Vaccine 2020-07-16 Completed Kasia Hercules eyboarron Moderna (Spikevax), 00:00:00 Mrna-lnp, [place] Protein, Pf Covid-19 Vaccine 2020-07-16 Completed Kasia mcwilliams Moderna (Spikevax), 00:00:00 Mrna-lnp, [place] Protein, Pf Covid-19 Vaccine 2020-07-16 Completed Kasia Hercules eybold - Moderna (Spikevax), 00:00:00 Exter nal Mrna-lnp, [place] Protein, Pf Covid-19 Vaccine 2020-07-16 Completed Kasia S eybold - Moderna (Spikevax), 00:00:00 Exter nal Mrna-lnp, [place] Protein, Pf Covid-19 Vaccine 2020-07-16 Completed Kasia Hercules eybold - Moderna (Spikevax), 00:00:00 Exter nal Mrna-lnp, [place] Protein, Pf Covid-19 Vaccine 2020-07-16 Completed Kasia Hercules eybold - Moderna (Spikevax), [...] Mcg/0.5ml,IM Covid-19 Vaccine 2020-06-14 Completed Kasia cuellobold Moderna (Spikevax), 00:00:00 Mrna-lnp, [place] Protein, Pf Covid-19 Vaccine 2020-06-14 Completed Kasia Hercules eybold Moderna (Spikevax), 00:00:00 Mrna-lnp, [place] Protein, Pf Covid-19 Vaccine 2020-06-14 Completed Kasia S eybold Moderna (Spikevax), 00:00:00 Mrna-lnp, [place] Protein, [...] 00:00:00 External Pneumococcal Vaccine, 2018-04-27 Completed Killian villasenor Seybold - Polysaccharide 00:00:00 External Shingles IM [...] (Shingrix) 00:00:00 External Shingles IM 2018-03-04 Completed Kaisa Seybol d - (Shingrix) 00:00:00 External Shingles IM 2018-03-04 Completed Kasia Seybol d - (Shingrix) 00:00:00 External Influenza Virus 2017-12-08 Completed Kasia Shepherd ybold - Vaccine, age 6 months 00:00:00 Ext ernal and up Influenza Virus 2017-12-08 Completed Kasia Shepherd ybold Vaccine, age 6 months 00:00:00 and [...] months and up Influenza Virus 2016-11-27 Completed Ksaia Se ybold Vaccine, age 6 months 00:00:00 [...] Kasia Seybol d - (Zostavax) 00:00:00 External Td- Tetanus & 2014-11-23 Completed Kasia Seyb old - Diphtheria Vaccine 00:00:00 Handle Finisher al (age 7+ years) Td- Tetanus & [...] Kasia Seyb old - Diphtheria Vaccine 00:00:00 Handle Finisher al (age 7+ years) Td- Tetanus & 2014-11-23 Completed Kasia Seyb old - Diphtheria Vaccine 00:00:00 Handle Finisher al (age 7+ years) Td- Tetanus & 2014-11-23 Completed Kasia Ha old - Diphtheria Vaccine 00:00:00 Handle Finisher al (age 7+ years) Td- Tetanus & 2014-11-23 Completed Kasia Shepherdyb old - Diphtheria Vaccine 00:00:00 Handle Finisher al (age 7+ years) Pneumococcal Vaccine, 2014-04-03 Completed Killian Haold - Polysaccharide 00:00:00 External Influenza, Seasonal, 2014-04-03 Completed Nereyda Jones - Injectable, 00:00:00 External Preservative Free Td,absorbed PF 2008-03-08 Completed Kasia Shepherdy bold - KSC,Admin,unspecified 00:00:00 Ext ernal Td- Tetanus & 2008-03-08 Completed Kasia Ha old - Diphtheria Vaccine 00:00:00 Handle Finisher al (age 7+ years) Td,absorbed PF 2008-03-08 Completed Kasia Shepherdy bold KSC,Admin,unspecified 00:00:00 Td,absorbed PF 2008-03-08 Completed Kasia y bold KSC,Admin,unspecified 00:00:00 Td,absorbed PF 2008-03-08 Completed [...] Ext ernal Td,absorbed PF 2008-03-08 Completed Kasia LEPE,Admin,unspecified 00:00:00 Ext ernal Td,absorbed PF 2008-03-08 Completed Kasia LEPE,Admin,unspecified 00:00:00 Ext ernal Td- Tetanus & 2008-03-08 Completed Kasia Ha old - Diphtheria Vaccine 00:00:00 Handle Finisher al (age 7+ years) Td,absorbed PF 2008-03-08 Completed Kasia MOCTEZUMAC,Admin,unspecified 00:00:00 Ext ernal Td- Tetanus & 2008-03-08 Completed Kasia Ha old - Diphtheria Vaccine 00:00:00 Handle Finisher al (age 7+ years) Td 2008-03-08 Completed University of 00:00:00 [place] [facility] Td 2008-03-08 Completed University of 00:00:00 [facility] Branch Td 2008-03-08 Completed University of 00:00:00 [place] [facility] Td 2008-03-08 Completed University of 00:00:00 [place] [facility] Td 2008-03-08 Completed University of 00:00:00 [place] [facility] Td 2008-03-08 Completed University of 00:00:00 [place] [facility] Td 2008-03-08 Completed University of 00:00:00 [place] [facility] Td 2008-03-08 Completed University of 00:00:00 [place] [facility] Td 2008-03-08 Completed University of 00:00:00 [place] [facility] Td 2008-03-08 Completed University of 00:00:00 [facility] Branch Td 2008-03-08 Completed University of 00:00:00 [place] [facility] Td 2008-03-08 Completed University of 00:00:00 [place] [facility] Td 2008-03-08 Completed University of 00:00:00 [place] [facility] Td 2008-03-08 Completed University of 00:00:00 [facility] Branch Td 2008-03-08 Completed University of 00:00:00 [place] [facility] Td 2008-03-08 Completed University of 00:00:00 [facility] Pneumococcal Vaccine, 2007-11-04 Completed Killian y Seybold - Polysaccharide 00:00:00 External Pneumococcal Vaccine, [...] Time Observation Value Comments Source Systolic blood 2022-04-30 16:41:00 127 mm[Hg] Kasia Jones - pressure External Diastolic blood 2022-04-30 16:41:00 68 mm[Hg] Lovely Jones - pressure External Heart rate 2022-04-30 16:41:00 78 /min Kasia mcwilliams - External Body temperature 2022-04-30 16:41:00 36.61 Jada Nereyda Jones - External Respiratory rate 2022-04-30 16:41:00 14 /min Nereyda Jones - External Body height 2022-04-30 16:41:00 157.5 cm Kasia mcwilliams - External Body weight 2022-04-30 16:41:00 64.864 kg Kasia mcwilliams - External BMI 2022-04-30 16:41:00 26.16 kg/m2 Kasia mcwilliams - External Oxygen saturation in 2022-04-30 16:41:00 99 /min Kasia Seybold - Arterial blood by External Pulse oximetry Systolic blood 2022-04-13 20:53:00 125 mm[Hg] Kasia Seybold - pressure External Diastolic blood 2022-04-13 20:53:00 66 mm[Hg] Killianse ladarius Seybold - pressure External Heart rate 2022-04-13 20:53:00 66 /min Kasia Hercules eybold - External Body temperature 2022-04-13 20:53:00 36.44 Jada Nereyda ey Seybold - External Respiratory rate 2022-04-13 20:53:00 16 /min Nereyda cuello Seybold - External Body height 2022-04-13 20:53:00 157.5 cm Kasia Hercules eybold - External Body weight 2022-04-13 20:53:00 63.05 kg Kasia Hercules eybold - External BMI 2022-04-13 20:53:00 25.42 kg/m2 Kasia Hercules eybold - External height 2022-04-01 16:15:00 62.0 [in_i] Common S pirit [facility] weight 2022-04-01 16:15:00 137.6 [lb_av] Common [facility] bmi 2022-04-01 16:15:00 25.16 kg/m2 Common S pirit [facility] oximetry 2022-04-01 16:15:00 96 % Common S pirit [facility] respiratory rate 2022-04-01 16:15:00 18 /min Comm on [facility] blood pressure 2022-04-01 16:15:00 169 mm[Hg] Common [facility] - systolic [facility] blood pressure 2022-04-01 16:15:00 76 mm[Hg] Common [facility] - diastolic [facility] Systolic blood 2022-03-13 22:00:00 138 mm[Hg] Kasia Shepherdybold - pressure External Diastolic blood 2022-03-13 22:00:00 56 mm[Hg] Lovely durand Seybold - pressure External Heart rate 2022-03-13 22:00:00 87 /min Kasia Hercules eybold - External Body temperature 2022-03-13 22:00:00 36 Jada Nereyda ey Seybold - External Respiratory rate 2022-03-13 22:00:00 14 /min Nereyda cuello Seybold - External Body height 2022-03-13 22:00:00 157.5 cm Kasia Hercules eybold - External Body weight 2022-03-13 22:00:00 60.782 kg Kasia Hercules eybold - External BMI 2022-03-13 22:00:00 24.51 kg/m2 Kasia Hercules eybold - External Systolic blood 2022-01-27 19:11:00 146 mm[Hg] Kasia Seybold - pressure External Diastolic blood 2022-01-27 19:11:00 64 mm[Hg] Lovely durand Seybold - pressure External Heart rate 2022-01-27 19:11:00 70 /min Kasia Hercules eybold - External Body temperature 2022-01-27 19:11:00 36.44 Jada Nereyda cuello Seybold - External Respiratory rate 2022-01-27 19:11:00 18 /min Nereyda cuello Seybold - External Body height 2022-01-27 19:11:00 157.5 cm Kasia cuellobold - External Body weight 2022-01-27 19:11:00 61.689 kg Kasia Hercules eybold - External BMI 2022-01-27 19:11:00 24.87 kg/m2 Kasia Hercules eybold - External height 2021-12-10 08:15:00 62.0 [in_i] [facility] weight 2021-12-10 08:15:00 134.2 [lb_av] Common [facility] temperature 2021-12-10 08:15:00 97.2 [degF] Common S [facility]irit [facility] bmi 2021-12-10 08:15:00 24.54 kg/m2 [facility] oximetry 2021-12-10 08:15:00 97 % Common S pirit [facility] respiratory rate 2021-12-10 08:15:00 18 /min Comm on [facility] blood pressure 2021-12-10 08:15:00 141 mm[Hg] Common [facility] - systolic [facility] blood pressure 2021-12-10 08:15:00 69 mm[Hg] Common [facility] - diastolic [facility] HEIGHT 2021-12-03 11:21:00 157.5 cm WEIGHT 2021-12-03 11:21:00 61.236 kg HEIGHT 2021-12-03 11:21:00 157.5 cm WEIGHT 2021-12-03 11:21:00 61.236 kg HEIGHT 2021-12-03 11:21:00 157.5 cm WEIGHT 2021-12-03 11:21:00 61.236 kg Systolic blood 2021-12-02 18:24:00 130 mm[Hg] Kasia Seybold - pressure External Diastolic blood 2021-12-02 18:24:00 55 mm[Hg] Lovely y Seybold - pressure External Heart rate 2021-12-02 18:24:00 66 /min Kasia S eybold - External Body temperature 2021-12-02 18:24:00 35.72 Jada Nereyda ey Seybold - External Respiratory rate 2021-12-02 18:24:00 14 /min Nereyda ey Seybold - External Body height 2021-12-02 18:24:00 157.5 cm Kasia S cuatebold - External Body weight 2021-12-02 18:24:00 61.689 kg Kasia S eybold - External BMI 2021-12-02 18:24:00 24.87 kg/m2 Kasia S cuatebold - External Oxygen saturation in 2021-12-02 18:24:00 99 /min Kasia Jones - Arterial blood by External Pulse oximetry Systolic blood 2021-09-27 23:37:00 125 mm[Hg] Univer sity of pressure [facility] Diastolic blood 2021-09-27 23:37:00 63 mm[Hg] Unive rsity of pressure [facility] Heart rate 2021-09-27 23:37:00 79 /min Universi ty of [facility] Body temperature 2021-09-27 23:37:00 37.22 Jada Univ ersity of [facility] Respiratory rate 2021-09-27 23:37:00 16 /min Univ ersity [facility] Body height 2021-09-27 23:37:00 157.5 cm [facility] Body weight 2021-09-27 23:37:00 62.596 kg [facility] [facility] BMI 2021-09-27 23:37:00 25.24 kg/m2 [facility] Oxygen saturation in 2021-09-27 23:37:00 96 /min [facility] blood by [facility] Pulse oximetry Branch Systolic blood 2021-08-11 19:10:00 104 mm[Hg] Kasia Seybold pressure Diastolic blood 2021-08-11 19:10:00 42 mm[Hg] Kelse y Seybold pressure Heart rate 2021-08-11 19:10:00 90 /min Kasia cuelloboarron Body temperature 2021-08-11 19:10:00 36.17 Jada Nereyda ey Seybold Respiratory rate 2021-08-11 19:10:00 14 /min Nereyda cuello Seybold Body height 2021-08-11 19:10:00 157.5 cm Kasia cuelloboarron Body weight 2021-08-11 19:10:00 61.689 kg Kasia cuellobold BMI 2021-08-11 19:10:00 24.87 kg/m2 Kasia cuelloboarron height 2021-08-07 08:15:00 62.0 [in_i] [facility] weight 2021-08-07 08:15:00 134.8 [lb_av] [facility] temperature 2021-08-07 08:15:00 98 [degF] [facility] bmi 2021-08-07 08:15:00 24.65 kg/m2 [facility] oximetry 2021-08-07 08:15:00 98 % [facility] respiratory rate 2021-08-07 08:15:00 16 /min Comm on [facility] blood pressure 2021-08-07 08:15:00 186 mm[Hg] [facility] - systolic [facility] blood pressure 2021-08-07 08:15:00 79 mm[Hg] [facility] - diastolic [facility] Systolic blood 2021-07-21 15:57:00 147 mm[Hg] Kasia [...] Heart rate 2021-05-22 14:56:00 74 /min Kasia S eybold Body temperature 2021-05-22 14:56:00 36.67 Jada Nereyda ey Seybold Respiratory rate 2021-05-22 14:56:00 16 /min Nereyda ey Seybold Body height 2021-05-22 14:56:00 157.5 cm Kasia Hercules eyboarron Body weight 2021-05-22 14:56:00 61.689 kg Kasia Hercules eybold BMI 2021-05-22 14:56:00 24.87 kg/m2 Kasia Hercules eybold height 2021-05-15 14:00:00 62.0 [in_i] [facility] weight 2021-05-15 14:00:00 135.4 [lb_av] [facility] temperature 2021-05-15 14:00:00 98.6 [degF] [facility] bmi 2021-05-15 14:00:00 24.76 kg/m2 [facility] oximetry 2021-05-15 14:00:00 99 % [facility] respiratory rate 2021-05-15 14:00:00 16 /min Comm on [facility] blood pressure 2021-05-15 14:00:00 167 mm[Hg] [facility] - systolic [facility] blood pressure 2021-05-15 14:00:00 67 mm[Hg] [facility] - diastolic [facility] Systolic blood 2021-04-18 15:05:00 132 mm[Hg] Kasia Seybold pressure Diastolic blood 2021-04-18 15:05:00 67 mm[Hg] Kelse y Seybold pressure Heart rate 2021-04-18 15:05:00 84 /min Kasia Hercules eyboarron Body temperature 2021-04-18 15:05:00 37.28 Jada Nereyda ey Seybold Respiratory rate 2021-04-18 15:05:00 14 /min Nereyda ey Seybold Body height 2021-04-18 15:05:00 157.5 cm Kasia Hercules eybold Body weight 2021-04-18 15:05:00 60.963 kg Kasia Hercules eybold BMI 2021-04-18 15:05:00 24.58 kg/m2 Kasia Hercules eybold Systolic blood 2021-02-26 14:32:00 145 mm[Hg] Kasia Seybold pressure Diastolic blood 2021-02-26 14:32:00 72 mm[Hg] Kelse y Seybold pressure Heart rate 2021-02-26 14:32:00 81 /min Kasia S eybold Body temperature 2021-02-26 14:32:00 36.44 Jada Nereyda ey Seybold Respiratory rate 2021-02-26 14:32:00 14 /min Nereyda ey Seybold Body height 2021-02-26 14:32:00 157.5 [...] saturation in 2020-12-17 17:41:00 98 /min Kasia Shepherdybold Arterial blood by Pulse oximetry Systolic blood [...] eybold BMI 2020-11-28 13:09:00 24.14 kg/m2 Kasia S eybold Systolic blood 2020-01-18 23:21:00 185 mm[Hg] Univer sity of pressure [facility] Diastolic blood 2020-01-18 23:21:00 99 mm[Hg] Unive rsity of pressure [facility] Heart rate 2020-01-18 23:21:00 95 /min [facility] Body temperature 2020-01-18 23:21:00 36.67 Jada [facility] Respiratory rate 2020-01-18 23:21:00 18 /min [facility] Oxygen saturation in 2020-01-18 23:21:00 97 /min University of Arterial blood by [facility] Pulse oximetry Branch Body weight 2020-01-18 23:17:00 63.504 kg [facility] BMI 2020-01-18 23:17:00 26.45 kg/m2 [facility] Systolic blood 2019-10-31 20:33:00 170 mm[Hg] [facility] Diastolic blood 2019-10-31 20:33:00 73 mm[Hg] [facility] Heart rate 2019-10-31 20:33:00 75 /min [facility] Body temperature 2019-10-31 20:33:00 37.22 Jada [facility] Respiratory rate 2019-10-31 20:33:00 19 /min [facility] Body height 2019-10-31 20:33:00 154.9 cm [facility] Body weight 2019-10-31 20:33:00 62.143 kg [facility] BMI 2019-10-31 20:33:00 25.89 kg/m2 [facility] Systolic blood 2019-10-14 17:00:00 175 mm[Hg] [facility] Diastolic blood 2019-10-14 17:00:00 76 mm[Hg] [facility] Heart rate 2019-10-14 17:00:00 79 /min [facility] Body temperature 2019-10-14 17:00:00 36.94 Jada [facility] Respiratory rate 2019-10-14 17:00:00 18 /min [facility] Oxygen saturation in 2019-10-14 17:00:00 96 /min [facility] Arterial blood by [facility] Pulse oximetry Branch Body weight 2019-10-13 08:00:00 62.46 kg [facility] BMI 2019-10-13 08:00:00 26.02 kg/m2 [facility] Body height 2019-10-12 01:27:00 154.9 cm [facility] Systolic blood 2019-10-14 17:00:00 175 mm[Hg] Univer sity of pressure [facility] Diastolic blood 2019-10-14 17:00:00 76 mm[Hg] Unive rsity of [facility] Heart rate 2019-10-14 17:00:00 79 /min Universi ty [facility] Body temperature 2019-10-14 17:00:00 36.94 Jada [facility] rate 2019-10-14 17:00:00 18 /min [facility] Oxygen saturation in 2019-10-14 17:00:00 96 /min University Arterial blood by [facility] Pulse oximetry Branch Body weight 2019-10-13 08:00:00 62.46 kg [facility] BMI 2019-10-13 08:00:00 26.02 kg/m2 [facility] Body height 2019-10-12 01:27:00 154.9 cm [facility] Systolic blood 2021-12-03 11:21:00 149 mm[Hg] [facility] Diastolic blood 2021-12-03 11:21:00 67 mm[Hg] [facility] Heart rate 2021-12-03 11:21:00 71 /min [facility] Body temperature 2021-12-03 11:21:00 36 Jada [facility] Respiratory rate 2021-12-03 11:21:00 14 /min [facility] Body height 2021-12-03 11:21:00 157.5 cm [facility] Body weight 2021-12-03 11:21:00 61.236 kg [facility] BMI 2021-12-03 11:21:00 24.69 kg/m2 [facility] Oxygen saturation in 2021-12-03 11:21:00 99 /min [facility] Arterial blood by Medical Ce nter Pulse oximetry Procedures Procedure Date / Time Performing Clinician Source Performed REAGENT STRIP/BLOOD 2022-04-13 20:57:00 Naina Byrd - GLUCOSE External URINALYSIS NONAUTO W/O 2021-12-02 19:02:03 Lakia Dong - SCOPE External POCT SARS-COV-2 ANTIGEN 2021-09-27 23:29:00 Teresita Shirleyladarius Velazquez [facility] (BIN[facility] REAGENT STRIP/BLOOD 2021-07-21 00:00:00 Outside, Yennifer Jones GLUCOSE URINE CULTURE, ROUTINE 2021-04-18 16:54:00 Iker, Lakia Roth URINALYSIS, ROUTINE 2021-04-18 16:54:00 Lakia Dongboarron URINE CULTURE, ROUTINE 2021-04-18 16:54:00 Lakia oDng RESULT LIPASE, SERUM 2021-04-18 16:07:00 Lakia Dong AMYLASE, SERUM 2021-04-18 16:07:00 Lakia Dong ASSIGNMENT OF BENEFITS 2021-03-11 21:17:04 Doctor Unassigned, No [facility] URINALYSIS, ROUTINE 2021-02-26 15:42:00 Lakia Dong MICROSCOPIC EXAMINATION 2021-02-26 15:42:00 Lakia Dong IRON AND TIBC 2021-02-26 15:31:00 Lakia Dong FERRITIN, SERUM 2021-02-26 15:31:00 Lakia Dong VITAMIN D, 25-HYDROXY 2021-02-26 15:31:00 Lakia oDng URINALYSIS NONAUTO W/O 2021-01-13 20:39:00 Lakia Dong SCOPE URINALYSIS, COMPLETE 2020-12-25 14:31:00 Lakia Dong MICROSCOPIC EXAMINATION 2020-12-25 14:31:00 Lakia Dong CBC WITH 2020-11-28 14:10:00 Aga, Carlos W Kasia Seybo ld DIFFERENTIAL/PLATELET CONSENT/REFUSAL FOR 2020-01-20 15:01:42 Doctor Unassigned, No Un [facility] DIAGNOSIS AND TREATMENT Name Medical Branch ASSIGNMENT OF BENEFITS 2020-01-20 15:01:20 Doctor Unassigned, No [facility] Branch CT HEAD WO CONTRAST 2020-01-19 00:01:40 Ziggy Chatterjee [facility] [place] XR FOREARM 2 VW RIGHT 2020-01-18 23:53:49 Singer [facility] XR TIBIA FIBULA 2 VW 2020-01-18 23:53:49 Singer [facility] LEFT [facility] Branch COMP. METABOLIC PANEL 2020-01-18 23:36:00 [place] [facility] ([id number]) [facility] [place] CBC WITH DIFF 2020-01-18 23:36:00 [facility] NOTICE OF PRIVACY 2020-01-18 23:10:17 Doctor Unassigned, No [facility] PRACTICES Name Medical Branch CONSENT/REFUSAL FOR 2020-01-18 23:09:59 Doctor Unassigned, No Un [facility] DIAGNOSIS AND TREATMENT Name [facility] POCT GLUCOSE 2019-10-14 16:42:00 [facility] POCT GLUCOSE 2019-10-14 13:17:00 [facility] (AUTOMATED) [facility] LIPASE 2019-10-14 10:16:00 [facility] HE[facility] 2019-10-14 10:16:00 [id number] (ALB,T.PRO,BILI [facility] T,BU/BC,ALT,AST,ALK PHOS) BASIC METABOLIC PANEL 2019-10-14 10:16:00 [facility] (NA, K, CL, CO2, Medical Branch GLUCOSE, BUN, CREATININE, CA) CBC WITH DIFF 2019-10-14 10:16[facility]00 [facility] 2019-10-14 06:20[facility] POCT GLUCOSE 2019-10-14 01:31:00 [facility] (AUTOMATED) Medical Branch POCT GLUCOSE 2019-10-13 21:42:00 [facility] (AUTOMATED) Medical Branch FL TIME OR 2019-10-13 15:15:00 Patten, [facility] (NON-REPORTABLE) Medical Branch POCT GLUCOSE 2019-10-13 13:01:00 [facility] (AUTOMATED) Medical Branch LIPASE 2019-10-13 09:59:00 [facility] COMP. METABOLIC PANEL 2019-10-13 09:59:00 Reese Reyes [facility] ([id number]) Medical Branch CBC WITH DIFF 2019-10-13 09:59:00 [facility] POCT GLUCOSE 2019-10-12 22:46:00 [facility] (AUTOMATED) Medical Branch POCT GLUCOSE 2019-10-12 20:33:00 [facility] (AUTOMATED) Medical Branch POCT GLUCOSE 2019-10-12 16:17:00 [facility] (AUTOMATED) Medical Branch US GALL BLADDER 2019-10-12 14:06:30 Eric [facility] ECHO ROUTINE W/DOPPLER 2019-10-12 13:36:55 [facility] COLOR Medical Branch LIPASE 2019-10-12 10:37:00 [facility] TROPONIN I 2019-10-12 10:37:00 [facility] GLYCOSYLATED HEMOGLOBIN 2019-10-12 10:37:00 [facility] Branch POCT GLUCOSE 2019-10-12 10:31:00 [facility] (AUTOMATED) [facility] Branch CT ANGIOGRAM CHEST 2019-10-12 04:50:17 Frank Yanez [facility] [place] CT ABDOMEN PELVIS W 2019-10-12 04:50:17 Frank Yanez [facility] CONTRAST Medical Branch XR CHEST 1 VW COVID 2019-10-12 01:59:41 Frank Yanez [facility] COVID-19 (ID NOW RAPID 2019-10-12 01:55:00 Frank Yanez [facility] TESTING) Medical Branch LIPASE 2019-10-12 01:52:00 Frank Yanez [facility] TROPONIN I 2019-10-12 01:52:00 Frank Yanez [facility] COMP. METABOLIC PANEL 2019-10-12 01:52:00 Frank Yanez [facility] ([id number]) Medical Branch LIPID PANEL 2019-10-12 01:52:00 [facility] ([id number])(TOTAL Medical Branch CHOLESTEROL, TRIGLYCERIDES, HDL) CBC WITH DIFF 2019-10-12 01:52:00 Frank Yanez [facility] PROTHROMBIN TIME / INR 2019-10-12 01:52:00 Frank Yanez [facility] N-TERMINAL PRO-BNP 2019-10-12 01:52:00 Frank Yanez [facility] LOW-DENSITY 2019-10-12 01:52:00 [facility] LIPOPROTEIN, DIRECT Medical Bran ch EKG-12 LEAD 2019-10-12 01:41:37 Frank Yanez [facility] EKG-12 LEAD 2019-10-12 01:39:16 Frank Yanez [facility] NOTICE OF PRIVACY 2019-10-12 01:20:17 Doctor Unassigned, No [facility] PRACTICES Name Medical Branch CONSENT/REFUSAL FOR 2019-10-12 01:19:55 Doctor Unassigned, No [facility] DIAGNOSIS AND TREATMENT Name [facility] [place] Plan of Care Planned Activity Planned Date Details Comments Source Future Scheduled 2022-09-22 Urine screening for [facility] Test 00:00:00 protein (procedure) Medical Center [code = 723460191] Future Scheduled 2022-09-22 Urine screening for [facility] Test 00:00:00 protein (procedure) [facility] [place] [code = 614338184] Future Scheduled 2022-03-08 FALLS RISK SCREENING [facility] Test 00:00:00 [code = FALLS RISK Medical C enter SCREENING] Future Scheduled 2022-03-[address] [facility] Test 00:00:00 (12+) [code = Medical Center DEPRESSION SCREENING (12+)] Future Scheduled 2022-03-08 FALLS RISK SCREENING [facility] Test 00:00:00 [code = FALLS RISK Medical C enter SCREENING] Future Scheduled 2022-03-[address] [facility] Test 00:00:00 (12+) [code = Medical Center DEPRESSION SCREENING (12+)] Future Scheduled 2021-12-[address] [facility] Test 00:00:00 measurement (procedure) [facility] [code = [id number]] Future Scheduled 2021-12-[address] [facility] Test 00:00:00 measurement (procedure) [facility] [code = 10625718] Future Scheduled 2021-06-06 Medicare IPPE (WELCOME [facility] 00:00:00 TO MEDICARE) [code = Medical Center Medicare IPPE (WELCOME TO MEDICARE)] Future Scheduled 2021-06-06 Medicare IPPE (WELCOME [facility] 00:00:00 TO MEDICARE) [code = Medical Center Medicare IPPE (WELCOME TO MEDICARE)] Future Scheduled 2021-05-17 COVID-19 VACCINE (4 - [facility]00 Booster for [facility] series) [code = COVID-19 VACCINE (4 - Booster for Moderna series)] Future Scheduled 2021-05-17 COVID-19 VACCINE (4 - [facility] 00:00:00 [facility]oster for [facility] series) [code = COVID-19 VACCINE (4 - Booster for Moderna series)] Future Scheduled 2015-05-15 SHINGLES VACCINES ([address] [facility] Test 00:00:00 3) [code = SHINGLES Medical Center VACCINES (2 of 3)] Future Scheduled 2015-05-15 SHINGLES VACCINES ([address] [facility] Test 00:00:00 3) [code = SHINGLES Medical Center VACCINES (2 of 3)] Future Scheduled 1966-09-06 DTAP/TDAP/TD VACCINES [facility] 00:00:00 (1 - Tdap) [code = Medical C enter DTAP/TDAP/TD VACCINES (1 - Tdap)] Future Scheduled 1966-09-06 DTAP/TDAP/TD VACCINES [facility] 00:00:00 (1 - Tdap) [code = Medical C enter DTAP/TDAP/TD VACCINES (1 - Tdap)] Future Scheduled 1965-09-06 HEPATITIS C SCREENING [facility] 00:00:00 [code = HEPATITIS C Medical Center SCREENING] Future Scheduled 1965-09-06 HEPATITIS C [facility]CRE[facility]ING [facility] 00:00:00 [code = HEPATITIS C Medical Center SCREENING] Future Scheduled [address] [facility] Test 00:00:00 Counseling and Medical Cente r Screening (12+) [code = Tobacco Cessation Counseling and Screening (12+)] Future Scheduled [address] [facility] Test 00:00:00 Counseling and Medical Cente r Screening (12+) [code = Tobacco Cessation Counseling and Screening (12+)] Future Scheduled 1957-09-06 DIABETIC EYE EXAM [code [facility] 00:00:00 = DIABETIC EYE EXAM] Medical Center Future Scheduled 1957-09-[address] [facility] 00:[facility]:00 examination Medical Center (regime/therapy) [code = 459701349] Future Scheduled 1957-09-06 DIABETIC EYE EXAM [code [facility] Test 00:00:00 = DIABETIC EYE EXAM] Medical Center Future Scheduled 1957-09-[address] [facility] 00:00:00 examination Medical Center (regime/therapy) [code = 347680118] Future Scheduled 1947 Screening for malignant [facility] Test 00:00:00 neoplasm of breast Medical C enter (procedure) [code = 125852388] Future Scheduled 1947 CT Colonography (combo) [facility] Test 00:00:00 [code = CT Colonography [facility] (combo)] Future Scheduled 1947 Screening for malignant [facility] Test 00:00:00 neoplasm of colon Medical Ce nter (procedure) [code = 018820693] Future Scheduled 1947 Screening for malignant [facility] Test 00:00:00 neoplasm of colon Medical Ce nter (procedure) [code = 139993062] Future Scheduled 1947 DXA SCAN [code = DXA [facility] Test 00:00:00 SCAN] [facility] Future Scheduled 1947 Screening for malignant [facility] Test 00:00:00 neoplasm of colon Medical Ce nter (procedure) [code = 320486325] Future Scheduled 1947 Screening for malignant [facility] Test 00:00:00 neoplasm of colon Medical Ce nter (procedure) [code = 428794579] Future Scheduled 1947 Sigmoidoscopy [code = [facility] Sigmoidoscopy] Medical Cente r Future Scheduled 1947 Screening for malignant [facility] Test 00:00:00 neoplasm of breast Medical C enter (procedure) [code = 601030604] Future Scheduled 1947 CT Colonography (combo) [facility] Test 00:00:00 [code = CT Colonography [facility] (combo)] Future Scheduled 1947 Screening for malignant [facility] Test 00:00:00 neoplasm of colon Medical Ce nter (procedure) [code = 448329102] Future Scheduled 1947 Screening for malignant [facility] Test 00:00:00 neoplasm of colon Medical Ce nter (procedure) [code = 626828461] Future Scheduled 1947 DXA SCAN [code = DXA [facility] Test 00:00:00 SCAN] [facility] Future Scheduled 1947 Screening for malignant [facility] Test 00:00:00 neoplasm of colon Medical Ce nter (procedure) [code = 916617236] Future Scheduled 1947 Screening for malignant [facility] Test 00:00:00 neoplasm of colon Medical Ce nter (procedure) [code = 597921928] Future Scheduled 1947 Sigmoidoscopy [code = [facility] 00:[facility] Sigmoidoscopy] Medical Cente r Encounters Start End Encounter Admission Attending Care Care Encounter Source Date/Time Date/Time Type Type Clinicians Facility Department ID 2022-03-27 Outpatient [facility] [id number] Common 07:34:00 [id number] [facility] - [facility] 2021-09-24 Outpatient Feaver, [facility] [id number] Common 07:19:00 José Luis [id number] [facility] 2021-07-24 Outpatient MIRZA Arteaga [facility] [id number] Common 13:25:01 José Luis [facility] 2021-04-02 Outpatient MIRZA Arteaga [facility] [id number] Common 11:08:04 José Luis [id number] [facility] 2021-01-04 Emergency [facility] [id number] Univers 05:14:15 ity [facility] 2021-01-03 Emergency [facility] [id number] Univers 10:51:44 [facility] 2023-01-25 2023-01-25 Outpatient KASIA SPANGLER [id number] Kasia 15:00:00 15:00:00 CHATA heller 2022-08-17 2022-08-17 Outpatient NAINA BYRD [id number] Kasia 15:15:00 15:15:00 Seybol d 2022-05-28 2022-05-28 Outpatient KASIA VELAZQUEZ [id number] Kasia 10:30:00 10:30:00 KENAN Seybol d 2022-05-13 2022-05-13 Outpatient LAB90 KASIA PEDROZA [id number] Kasia 17:05:00 17:05:00 Seybol d 2022-05-13 2022-05-13 Outpatient CLARITA HILARIO KASIA PEDROZA [id number] Kasia 15:45:00 15:45:00 Seybol d 2022-05-12 2022-05-12 Outpatient NAINA BYRD [id number] Kasia 00:00:00 00:00:00 Seybol d 2022-05-06 2022-05-06 Outpatient KASIA VELAZQUEZ [id number] Kasia 00:00:00 00:00:00 KENAN Seybol d 2022-05-06 2022-05-06 Outpatient KASIA PEDROZA [id number] Kasia 00:00:00 00:00:00 Seybol d 2022-04-30 2022-04-30 Outpatient KASIA VELAZQUEZ [id number] Kasia 10:45:00 10:45:00 KENAN Seybol d 2022-04-30 2022-04-30 Outpatient KASIA PEDROZA [id number] Kasia 00:00:00 00:00:00 Seybol d 2022-04-30 2022-04-30 Outpatient KASIA PEDROZA [id number] Kasia 00:00:00 00:00:00 Seybol d 2022-04-20 2022-04-20 Outpatient KASIA CORRIGAN [id number] Kasia 00:00:00 00:00:00 SHANEIKA Seybo ld 2022-04-16 2022-04-16 Outpatient NAINA BYRD [id number] Kasia 00:00:00 00:00:00 Seybol d 2022-04-15 2022-04-15 Outpatient PREKASIA GLYNN [id number] Kasia 00:00:00 00:00:00 KENAN Seybol d 2022-04-14 2022-04-14 Outpatient KASIA DONG [id number] Kasia 00:00:00 00:00:00 LAKIA Seybol d 2022-04-14 2022-04-14 Outpatient KASIA PEDROZA [id number] Kasia 00:00:00 00:00:00 Seybol d 2022-04-13 2022-04-13 Outpatient TRED47 KASIA PEDROZA [id number] Kasia 16:00:00 16:00:00 Seybol d 2022-04-13 2022-04-13 Outpatient NAINA BYRD [id number] Kasia 15:30:00 15:30:00 Seybol d 2022-04-09 2022-04-09 Outpatient LAB90 KASIA PEDROZA [id number] Kasia 08:20:00 08:20:00 Seybol d 2022-04-08 2022-04-08 Outpatient NAINA BYRD [id number] Kasia 00:00:00 00:00:00 Seybol d 2022-04-06 2022-04-06 Outpatient KASIA DONG [id number] Kasia 00:00:00 00:00:00 LAKIA Seybol d 2022-04-01 2022-04-01 [facility] [id number] Co mmon 00:00:00 00:00:00 VISIT Spirit ESTAB PT - [facility] LEVEL 2 [facility] 2022-03-27 2022-03-27 Outpatient PATRICKReuben KASIA PEDROZA [id number] Kasia 00:00:00 00:00:00 LAKIA Seybol d 2022-03-27 2022-03-27 Outpatient KASIA PEDROZA [id number] Kasia 00:00:00 00:00:00 Seybol d 2022-03-24 2022-03-24 Outpatient PATRICKReuben KASIA PEDROZA [id number] Kasia 00:00:00 00:00:00 LAKIA Seybol d 2022-03-18 2022-03-18 Outpatient KASIA PEDROZA [id number] Kasia 00:00:00 00:00:00 Seybol d 2022-03-18 2022-03-18 Outpatient KASIA PEDROZA [id number] Kasia 00:00:00 00:00:00 Seybol d 2022-03-16 2022-03-16 Outpatient PATRICKReuben KASIA PEDROZA [id number] Kasia 15:30:00 15:30:00 LAKIA Seybol d 2022-03-13 2022-03-13 Outpatient KASIA VELAZQUEZ [id number] Kasia 16:30:00 16:30:00 KENAN Seybol d 2022-03-01 2022-03-01 Outpatient CARLOS SCHULTZ [id number] Kasia 00:00:00 00:00:00 Seybol d 2022-02-12 2022-02-12 Outpatient CARLOS SCHULTZ [id number] Kasia 00:00:00 00:00:00 Seybol d 2022-02-03 2022-02-03 Outpatient KASIA FERRARA [id number] Kasia 11:15:00 11:15:00 ALI Seybol d 2022-01-27 2022-01-27 Outpatient KASIA SPANGLER [id number] Kasia 13:15:00 13:15:00 CHATA Hao ld 2021-12-31 2021-12-31 Outpatient KASIA PEDROZA [id number] Kasia 08:00:00 08:00:00 Seybol d 2021-12-18 2021-12-18 Outpatient KASIA CHUNG [id number] Kasia 00:00:00 00:00:00 MALKA Seybol d 2021-12-10 2021-12-10 [facility] [id number] Co mmon 00:00:00 00:00:00 VISIT EST Spir it PT LEVEL 3 - [facility] 2021-12-09 2021-12-09 Outpatient KASIA FERRARA [id number] Kasia 09:15:00 09:15:00 ALI Seybol d 2021-12-04 2021-12-04 Outpatient KASIA DONG [id number] Kasia 00:00:00 00:00:00 LAKIA Seybol d 2021-12-03 2021-12-03 Office Sherita [facility] [id number] 11:00:00 11:30:00 Visit [facility] 2021-12-03 2021-12-[address] [facility] [id number] 11:00:00 11:30:00 Visit [facility] 2021-12-03 2021-12-03 Outpatient LÁZARO SHERITARAMESH SLE [id number] SLE 11:10:42 11:10:42 CAS 2021-12-02 2021-12-02 Outpatient LAB90 KASIA PEDROZA [id number] Kasia 14:20:00 14:20:00 Seybol d 2021-12-02 2021-12-02 Outpatient KASIA DONG [id number] Kasia 13:30:00 13:30:00 LAKIA Seybol d 2021-11-24 2021-11-24 Outpatient SULAIMAN OTTO [id number] Kasia 11:00:00 11:00:00 Seybol d 2021-11-24 2021-11-24 Outpatient KASIA VELAZQUEZ [id number] Kasia 00:00:00 00:00:00 KENAN Seybol d 2021-11-06 2021-11-06 Outpatient PREZAAshley, KASIA PEDROZA [id number] Kasia 00:00:00 00:00:00 KENAN Seybol d 2021-10-29 2021-10-29 Outpatient PREZAAshley, KASIA PEDROZA [id number] Kasia 00:00:00 00:00:00 KENAN Seybol d 2021-10-28 2021-10-28 Outpatient PREZAS, KASIA PEDROZA [id number] Kasia 00:00:00 00:00:00 KENAN Seybol d 2021-10-21 2021-10-21 Outpatient PREZAAshley, KASIA PEDROZA [id number] Kasia 00:00:00 00:00:00 KENAN Seybol d 2021-10-16 2021-10-16 Outpatient HUNDL, KASIA PEDROZA [id number] Kasia 00:00:00 00:00:00 LAKIA Seybol d 2021-10-13 2021-10-13 Outpatient NAINA BYRD [id number] Kasia 15:45:00 15:45:00 Seybol d 2021-10-13 2021-10-13 Office NAINA BYRD 1.2.840.114 [id number] Kasia 15:30:00 15:30:00 Visit 350.1.13.13 Se ybold 1.2.7.2.686 [id number] 2021-10-01 2021-10-01 Outpatient KASIA VELAZQUEZ [id number] Kasia 00:00:00 00:00:00 KENAN Seybol d 2021-09-27 2021-09-27 Outpatient Grace SHIRLEY [facility] [id number] Univers 19:40:00 20:52:32 MAGALY ruiz [facility] 2021-09-27 2021-09-27 Urgent Magaly Shirley [facility] 1.2.840. 114 [id number] Univers 19:40:00 20:00:00 [facility] 350.1.13.10 beau raymond [place] 4.2.7.2.686 [place] PRO?BLEA [phone] Al layne [address] OFFICE [facility] 2021-09-27 2021-09-27 Telephone Casper [facility] 1.2.840.114 [id number] [facility] 00:00:00 00:00:00 [facility] 350.1.13.10 i ty of [place] 4.2.7.2.686 [place] PRO?BLEA [phone] Al layne [address] OFFICE [facility] 2021-09-25 2021-09-25 Outpatient KASIA DONG [id number] Kasia 00:00:00 00:00:00 LAKIA Seybol d 2021-09-22 2021-09-22 Outpatient LAB90 KASIA PEDROZA [id number] Kasia 09:00:00 09:00:00 Seybol d 2021-09-22 2021-09-22 Office Sulaiman Dong 1.2.840.114 [id number] Kasia 08:00:00 09:00:00 Visit Lakia Martin 350.1.13.13 Se ybold 1.2.7.2.686 [id number] 2021-09-16 2021-09-16 Outpatient KASIA VELAZQUEZ [id number] Kasia 00:00:00 00:00:00 KENAN Seybol d 2021-09-10 2021-09-10 Outpatient LAB90 KASIA PEDROZA [id number] Kasia 11:50:00 11:50:00 Seybol d 2021-09-10 2021-09-10 Office Sulaiman Dong 1.2.840.114 [id number] Kasia 11:00:00 11:30:00 Visit Lakia Martin 350.1.13.13 Se ybold 1.2.7.2.686 [id number] 2021-09-05 2021-09-05 Office Sluaiman Dong 1.2.840.114 [id number] Kasia 09:00:00 09:30:00 Visit Lakia Martin 350.1.13.13 Se ybold 1.2.7.2.686 [id number] 2021-09-04 2021-09-04 (TEL) [facility] [id number] Co mmon 00:00:00 00:00:00 [facility] 2021-09-01 2021-09-01 Outpatient KASIA DONG [id number] Kasia 00:00:00 00:00:00 LAKIA Seybol d 2021-08-20 2021-08-20 Outpatient KASIA DONG [id number] Kasia 00:00:00 00:00:00 LAKIA Seybol d 2021-08-19 2021-08-19 Outpatient KASIA DONG [id number] Kasia 00:00:00 00:00:00 LAKIA Seybol d 2021-08-18 2021-08-18 Office Sulaiman Dong 1.2.840.114 [id number] Kasia 11:00:00 11:30:00 Visit Lakia Martin 350.1.13.13 Se ybold 1.2.7.2.686 [id number] 2021-08-18 2021-08-18 Outpatient IKER KASIA PEDROZA [id number] Kasia 00:00:00 00:00:00 LAKIA Seybol d 2021-08-11 2021-08-11 Outpatient [id number] KASIA PEDROZA [id number] Kasia 15:35:00 15:35:00 Seybol d 2021-08-11 2021-08-11 Office Sulaiman Dong 1.2.840.114 [id number] Kasia 14:30:00 15:00:00 Visit Lakia Martin 350.1.13.13 Se ybold 1.2.7.2.686 [id number] 2021-08-11 2021-08-11 Outpatient KASIA DONG [id number] Kasia 00:00:00 00:00:00 LAKIA Seybol d 2021-08-07 2021-08-07 OFFICE [facility] [id number] Co mmon 00:00:00 00:00:00 VISIT Spirit ESTAB PT - [facility] LEVEL 4 [facility] 2021-07-30 2021-07-30 Outpatient KASIA DONG [id number] Kasia 00:00:00 00:00:00 LAKIA Seybol d 2021-07-21 2021-07-21 Office Naina Byrd 1.2.840.114 [id number] Kasia 11:15:00 11:45:00 Visit 350.1.13.13 Se ybold 1.2.7.2.686 [id number] 2021-07-16 2021-07-16 Outpatient IKER, KASIA PEDROZA [id number] Kasia 00:00:00 00:00:00 LAKIA Seybol d 2021-07-12 2021-07-12 Outpatient PREZAS, KASIA PEDROZA [id number] Kasia 00:00:00 00:00:00 KENAN Seybol d 2021-07-03 2021-07-03 Outpatient PREKASIA GLYNN [id number] Kasia 00:00:00 00:00:00 KENAN Seybol d 2021-07-03 2021-07-03 Outpatient TERI, KASIA PEDROZA [id number] Kasia 00:00:00 00:00:00 KENAN Seybol d 2021-06-19 2021-06-19 Office Sulaiman Velazquez 1.2.840.114 [id number] Kasia 10:00:00 10:15:00 Visit Kenan Martin 350.1.13.13 Se ybold 1.2.7.2.686 [id number] 2021-05-27 2021-05-27 Outpatient IKER, KASIA PEDROZA [id number] Kasia 00:00:00 00:00:00 LAKIA Seybol d 2021-05-26 2021-05-26 Outpatient PREZAAshley, KASIA PEDROZA [id number] Kasia 00:00:00 00:00:00 KENAN Seybol d 2021-05-23 2021-05-23 Outpatient LAB90 KASIA PDEROZA [id number] Kasia 08:05:00 08:05:00 Seybol d 2021-05-22 2021-05-22 Office Sulaiman Velazquez 1.2.840.114 [id number] Kasia 10:30:00 10:45:00 Visit Kenan Martin 350.1.13.13 Se ybold 1.2.7.2.686 [id number] 2021-05-20 2021-05-20 Outpatient KASIA DONG [id number] Kasia 00:00:00 00:00:00 LAKIA Seybol d 2021-05-15 2021-05-15 OFFICE [facility] [id number] Co mmon 00:00:00 00:00:00 VISIT EST Spir it PT LEVEL 3 - [facility] 2021-05-09 2021-05-09 Outpatient KASIA PEDROZA [id number] Kasia 00:00:00 00:00:00 Seybol d 2021-05-06 2021-05-06 Outpatient KASIA PEDROZA [id number] aKsia 00:00:00 00:00:00 Seybol d 2021-05-05 2021-05-05 Outpatient KASIA PEDROZA [id number] Kasia 00:00:00 00:00:00 Seybol d 2021-05-02 2021-05-02 Outpatient KASIA DONG [id number] Kasia 00:00:00 00:00:00 LAKIA Seybol d 2021-05-01 2021-05-01 Outpatient KASIA DONG [id number] Kasia 00:00:00 00:00:00 LAKIA Seybol d 2021-04-28 2021-04-28 Outpatient KASIA DONG [id number] Kasia 00:00:00 00:00:00 LAKIA Seybol d 2021-04-22 2021-04-22 Outpatient KASIA DONG [id number] Kasia 00:00:00 00:00:00 LAKIA Seybol d 2021-04-18 2021-04-18 Outpatient LAB90 KASIA PEDROZA [id number] Kasia 09:55:00 09:55:00 Seybol d 2021-04-18 2021-04-18 Office Sulaiman Dong 1.2.840.114 [id number] Kasia 09:00:00 09:30:00 Visit Lakia Maroi 350.1.13.13 Se ybold 1.2.7.2.686 [id number] 2021-04-15 2021-04-15 Outpatient KASIA DONG [id number] Kasia 00:00:00 00:00:00 LAKIA capone 2021-03-19 2021-03-19 Outpatient KASIA DONG [id number] Kasia 00:00:00 00:00:00 LAKIA Haol liborio 2021-03-13 2021-03-13 Letter BRENDA Mcbride 1.2.840.114 [id number] Univers 00:00:00 00:00:00 (Out) Cherellealejandra POLO 350.1.13.10 it y of [facility] 4.2.7.2.686 [place] as [phone] [facility] [address] 2021-03-11 2021-03-11 Laboratory Only, Ang Db Test [facility] 1.2.8 40.114 [id number] Univers 15:15:00 15:30:00 Only Marco [facility] 350.1.13.10 ity [facility] 4.2.7.2.686 [place] as PRO?BLEA [phone] [address] MEDICAL OFFICE BUILDING 2021-03-11 2021-03-11 Outpatient Grace GONGORA [facility] [id number] Univers 15:15:00 15:15:00 JUANCARLOS ity [facility] 2021-03-11 2021-03-11 Outpatient KASIA DONG [id number] Kasia 09:30:00 09:30:00 LAKIA capone 2021-03-11 2021-03-11 Outpatient KASIA DONG [id number] Kasia 00:00:00 00:00:00 LAKIA Haol liborio 2021-03-11 2021-03-11 Orders Doctor GUTIERREZ 1.2.840.114 [id number] Univers 00:00:00 00:00:00 Only UnassMELANI polanco 350.1.13.10 ity of [facility] 4.2.7.2.686 [place] as [phone] [facility] [address] 2021-03-10 2021-03-10 Outpatient KASIA DONG [id number] Kasia 00:00:00 00:00:00 LAKIA Seybol d 2021-03-10 2021-03-10 Outpatient KASIA PEDROZA [id number] Kasia 00:00:00 00:00:00 Seybol d 2021-03-06 2021-03-06 Outpatient IKER KASIA PEDROZA [id number] Kasia 00:00:00 00:00:00 LAKIA Seybol d 2021-03-05 2021-03-05 Telemedici Sulaiman Dong 1.2.840.114 [id number] Kasia 08:00:00 08:30:00 ne Lakia Martin 350.1.13.13 Se ybold 1.2.7.2.686 [id number] 2021-03-03 2021-03-03 Outpatient SULAIMAN OTTO KASIA PEDROZA [id number] Kasia 15:45:00 15:45:00 Seybol d 2021-03-03 2021-03-03 Outpatient IKER KASIA PEDROZA [id number] Kasia 00:00:00 00:00:00 LAKIA Seybol d 2021-03-03 2021-03-03 Outpatient IKER KASIA PEDROZA [id number] Kasia 00:00:00 00:00:00 LAKIA Seybol d 2021-02-26 2021-02-26 Outpatient LAB90 KASIA PEDROZA [id number] Kasia 09:25:00 09:25:00 Seybol d 2021-02-26 2021-02-26 Office Sulaiman Dong 1.2.840.114 [id number] Kasia 08:30:00 09:00:00 Visit Lakia Martin 350.1.13.13 Se ybold 1.2.7.2.686 [id number] 2021-02-18 2021-02-18 Outpatient KASIA PEDROZA [id number] Kasia 00:00:00 00:00:00 Seybol d 2021-02-17 2021-02-17 Outpatient CARLOS SCHULTZ [id number] Kasia 00:00:00 00:00:00 Seybol d 2021-02-10 2021-02-10 Outpatient KASIA PEDROZA [id number] Kasia 00:00:00 00:00:00 Seybol d 2021-02-10 2021-02-10 Outpatient AGACARLOS KASIA PEDROZA [id number] Kasia 00:00:00 00:00:00 Seybol d 2021-02-04 2021-02-04 Outpatient HUNDL, KASIA PEDROZA [id number] Kasia 00:00:00 00:00:00 ALKIA Seybol d 2021-01-31 2021-01-31 Outpatient KASIA PEDROZA [id number] Kasia 00:00:00 00:00:00 Seybol d 2021-01-26 2021-01-26 Outpatient HUNDL, KASIA PEDROZA [id number] Kasia 00:00:00 00:00:00 LAKIA Seybol d 2021-01-17 2021-01-17 Outpatient COVID-PFIZE KASIA PEDROZA [id number] Kasia 09:00:00 09:00:00 R BOOSTER, Seladarius HILARIO 2021-01-15 2021-01-15 Outpatient CLARITA, SULAIMAN KASIA PEDROZA [id number] Kasia 14:15:00 14:15:00 Seybol d 2021-01-15 2021-01-15 Outpatient HUNDL, KASIA PEDROZA [id number] Kasia 00:00:00 00:00:00 LAKIA Seybol d 2021-01-15 2021-01-15 Outpatient HUNDL, KASIA PEDROZA [id number] Kasia 00:00:00 00:00:00 LAKIA Seybol d 2021-01-15 2021-01-15 Outpatient HUNDL, KASIA PEDROZA [id number] Kasia 00:00:00 00:00:00 LAKIA Seybol d 2021-01-14 2021-01-14 Outpatient HUNDL, KASIA PEDROZA [id number] Kasia 00:00:00 00:00:00 LAKIA Seybol d 2021-01-13 2021-01-13 Outpatient LAB90 KASIA PEDROZA [id number] Kasia 15:30:00 15:30:00 Seybol d 2021-01-13 2021-01-13 Office Iker Hilario 1.2.840.114 [id number] Kasia 14:25:37 14:55:37 Visit Lakia Martin 350.1.13.13 Se ybold 1.2.7.2.686 [id number] 2021-01-13 2021-01-13 Outpatient IKER KASIA PEDROZA [id number] Kasia 00:00:00 00:00:00 LAKIA Seybol d 2020-12-25 2020-12-25 Outpatient LAB90 KASIA PEDROZA [id number] Kasia 11:10:00 11:10:00 Seybol d 2020-12-25 2020-12-25 Office Sulaiman Dong 1.2.840.114 [id number] Kasia 09:00:08 09:30:08 Visit Lakia Martin 350.1.13.13 Se ybold 1.2.7.2.686 [id number] 2020-12-19 2020-12-19 Outpatient IKER KASIA PEDROZA [id number] Kasia 00:00:00 00:00:00 LAKIA Seybol d 2020-12-17 2020-12-17 Office Sulaiman Dong 1.2.840.114 [id number] Kasia 12:30:43 13:00:43 Visit Lakia Martin 350.1.13.13 Se ybold 1.2.7.2.686 [id number] 2020-12-17 2020-12-17 Outpatient KASIA PEDROZA [id number] Kasia 08:00:00 08:00:00 Seybol d 2020-12-09 2020-12-09 Outpatient CARLOS SCHULTZ [id number] Kasia 00:00:00 00:00:00 Seybol d 2020-12-04 2020-12-04 Outpatient CARLOS SCHULTZ [id number] Kasia 00:00:00 00:00:00 Seybol d 2020-11-29 2020-11-29 Outpatient CARLOS SCHULTZ [id number] Kasia 00:00:00 00:00:00 Seybol d 2020-11-28 2020-11-28 Outpatient LAB90 KASIA PEDROZA [id number] Kasia 09:15:00 09:15:00 Seybol d 2020-11-28 2020-11-28 Office Carlos Schultz 1.2.840.114 [id number] Kasia 08:04:39 08:49:39 Visit Paige Martin 350.1.13.13 Se simone 1.2.7.2.686 [id number] 2020-05-13 2020-05-[address] [facility] 1.2.840.114 [id number] Univers 00:00:00 00:00:00 Outreach Ross JENNINGS 350.1.13.10 i ty of [facility] [place]2.[place].2.[place] [phone] Al dical [address] 2020-01-20 2020-01-20 [facility] 1.2.840.114 [id number] Univers 09:00:00 23:59:00 Encounter Michael Reeves 350.1.13.10 ity of [place] 4.2.7.2.686 [facility] [place] [phone] [facility] [address] 2020-01-20 2020-01-20 Outpatient R ALAINA [facility] [id number] Univers 00:00:00 00:00:00 MICHAEL yanez [facility] 2020-01-18 2020-01-[address] [facility] 1.2.411.845 [id number] Univers 17:14:00 18:57:00 Ziggy Reeves 350.1.13.10 i ty of [place] 4.2.7.2.686 [facility] [phone] [facility] [address] 2020-01-18 2020-01-18 Orders Doctor BRENDA 1.2.840.114 [id number] Univers 00:00:00 00:00:00 Only Unassigned, MELANI 350.1.13.10 ity of [place] [facility] 4.2.7.2.686 [facility] [id number] [facility] [address] 2019-11-28 2019-11-28 Outpatient R SANDOR [facility] [id number] Univers 13:30:00 13:30:00 NATALIA yanez [facility] 2019-10-31 2019-10-31 Office Sandor [facility] 1.2.044.877 [id number] Univers 15:21:52 16:12:34 Visit Natalia Reeves 350.1.13.10 i ty of [place].2.[place] Profess[place] [phone] Al dical [address] 2019-10-31 2019-10-31 [facility] [id number] Univers 15:30:00 15:30:00 NATALIA yanez [facility] 2019-10-16 2019-10-16 Transition Elena Li 1.2.840.114 [id number] 00:00:00 00:00:00 of Care Kellen Rose 350.1.13.10 [place] 4.2.7.2.686 [id number] 2019-10-16 2019-10-16 Transition LiElena 1.2.840.114 [id number] Univers 00:00:00 00:00:00 of Care Kellen Rose 350.1.13.10 it y of [place].2.7.2.[place] [id number] [facility] [address] 2019-10-11 2019-10-14 [facility] 1.2.840. 114 [id number] 20:32:00 13:28:00 Encounter Erika Henleyton 350.1.13.10 [place] 4.2.7.2.686 [place] [phone] [facility] 2019-10-11 2019-10-14 [facility] 1.2.840. 114 [id number] Univers 20:32:00 13:28:00 Encounter Erika Henley 350.1.13.10 ity of [place] 4.2.7.2.686 [facility] [place] [phone] [facility] [address] 2019-10-11 2019-10-11 Orders Doctor GUTIERREZ 1.2.840.114 [id number] 00:00:00 00:00:00 Only Unassigned, MELANI 350.1.13.10 [place] [facility] 4.2.7.2.686 [id number] 2019-10-11 2019-10-11 Orders Doctor BRENDA 1.2.840.114 [id number] Univers 00:00:00 00:00:00 Only Unassigned, MELANI 350.1.13.10 ity of [place] [facility] 4.2.7.2.686 [place] as [phone] [address] 2019-09-19 2019-09-19 Laboratory Lab, [facility] 1.2.840.114 [id number] 09:57:04 10:17:04 Only Fam Pob I Health 350.1.13.10 [place] 4.2.7.2.686 Professio [phone] nal [facility] Office Building [facility] 2019-09-19 2019-09-19 Laboratory Lab, [facility] Fam Pob I [facility] 1.2. 840.114 [id number] [facility] 09:57:04 10:17:04 Only Anene, [facility] 350.1.13.10 ity of [place] 4.2.7.2.686 [place] as Professio [phone] Al dical [address] Office Building [facility] 2019-09-19 2019-09-19 Outpatient R [facility] [id number] Univers 10:00:00 10:00:00 ity of [facility] 2019-09-19 2019-09-19 Letter Doctor GUTIERREZ 1.2.840.114 [id number] 00:00:00 00:00:00 (Out) Unassigned, MELANI 350.1.13.10 [place] [facility] 4.2.7.2.686 [id number] [facility] 2019-09-19 2019-09-19 Letter Doctor GUTIERREZ 1.2.840.114 [id number] Univers 00:00:00 00:00:00 (Out) Unassigned, MELANI 350.1.13.10 ity of [place] [facility] 4.2.7.2.686 [place] as [phone] [address] 2019-05-10 2019-05-10 Outpatient Coleen Camejo [id number] Common 08:30:00 08:30:00 t Specialty/U Sp jeni Specialty rology - [facility]Urology Clinic [facility] 2019-04-28 2019-04-28 Outpatient Coleen Camejo [id number] Common 15:26:00 15:26:00 t Specialty/U Sp jeni Specialty rology - [facility] /Urology Clinic [facility] 2019-04-24 2019-04-24 Outpatient Coleen Camejo [id number] Common 09:00:00 09:00:00 t Specialty/U Sp jeni Specialty rology - [facility] /Urology Clinic [facility] Results Test Description Test Time Test Comments Results Result Comments Source REAGENT STRIP/BLOOD GLUCOSE 2022-04-13 20:57:00 Test Item Value Reference Range Interpretation Comme nts BLOOD SUGAR (test code = 075666) 273 mg/dL 65-99 A Lab Interpretation (test code = 12684-2) Abnormal Kasia Jones - ExternalURINALYSIS NONAUTO W/O [id number] 19:02:00 Test Item Value Reference Range Interpretation Comments UD KETONES (test code = NEG 5-160 600394) UD GLUCOSE (test code = NEG 100-2000 248581) UD PROTEIN (test code = NEG Trace - 2000 mg/dL 841162) UD LEUKOCYTES (test NEG Trace - Large @ 2 code = 637905) min. UD NITRITE (test code = NEG Neg. - Pos. @ 60 329423) sec. UD UROBILINOGEN (test 0.2 mg/dL 0.2-8 code = 921984) UD PH (test code = See_Comment [Automat ed 559470) message] The sy stem which generated this result transmitted reference range : 5.0 - 8.5 @ 60 sec.. The refer ence range was not u sed to interpret th is result as normal/abnormal . UD BLOOD (test code = NEG Neg. - Large @ 60 777402) sec. UD SPECIFIC GRAVITY See_Comment [Automa sven (test code = 483430) message ] The system which generated this result transmitted reference range : 1.000 - 1.030 @ 45 sec.. The refer ence range was not u sed to interpret th is result as normal/abnormal . UD BILIRUBIN (test code NEG Neg. - Large @ 45 = 661103) sec. Lab Interpretation Normal (test code = 56116-4) Kasia Gale ExternalPOCT SARS-COV-2 ANTIGEN (BINAX NOW)2021-09-27 23:44:00 Test Item Value Reference Range Interpretation Comments POCT SARS-COV-2 ANTIGEN (test code = Positive Not Detected A 5076) On board controls acceptable with C Yes Line (test code = 3574) Lab Interpretation (test code = Abnormal 60667-9) [facility] [id number] 00:00:00 Test Item Value Reference Range Interpretation Comments BLOOD SUGAR (test code = 500832) 180 mg/dL 65-99 A Lab Interpretation (test code = Abnormal 14720-8) Kasia JonesURINE CULTURE, [id number] 10:06:00 Test Item Value Reference Range Interpretation Comments URINE CULTURE, ROUTINE Final report (test code = 630-4) FELICITA (test code = FELICITA) [facility] results reported in Eastern Time. [facility] Clinical Information:SRC:Urine*U rine ?[facility] Source of Specimen:Urine*Urine Kasia HaoldURINE CULTURE, ROUTINE [id number] 10:06:00RESULT 1Comment: Culture shows less than 10,000 colony forming units of bacteria permilliliter of urine. This colony count is not generally consideredto be clinically significant. [facility] Jaz SeyboldLIPASE, [id number] 14:37:00 Test Item Value Reference Range Interpretation Comments LIPASE, SERUM (test 54 U/L 14-85 code = 3040-3) FELICITA (test code = FELICITA) [facility] results reported in [place] Time. [facility] Clinical Information:[facility] Source of Specimen:Blood, venous*Venipunc Kasia SeyboldAMYLASE, [id number] 14:37:00 Test Item Value Reference Range Interpretation Comments AMYLASE, SERUM (test 44 U/L 31-110 code = 1798-8) FELICITA (test code = FELICITA) [facility] results reported in [place] Time. [facility] Clinical Information:SRC:Blood, venous*Venipunc ture ? [facility] Source of Specimen:Blood, venous*Venipjoyce Pedroza SeyboldURINALYSIS, [id number] 13:43:00 Test Item Value Reference Range Interpretation Comments SPECIFIC GRAVITY 1.005-1.030 (test code = 5811-5) PH (test code = 5.0-7.5 5803-2) URINE-COLOR (test Yellow Yellow code = 5778-6) APPEARANCE (test Clear Clear code = 5767-9) WBC ESTERASE (test Negative Negative code = 5799-2) PROTEIN (test code Negative Negative/Trace = 25026-7) GLUCOSE (test code Negative Negative = 70996-0) KETONES (test code Negative Negative = 2514-8) OCCULT BLOOD (test Negative Negative code = 5794-3) BILIRUBIN (test Negative Negative code = 5770-3) UROBILINOGEN,SEMI-Q 0.2 mg/dL 0.2-1.0 N (test code = 66552-9) NITRITE, URINE Negative Negative (test code = 5802-4) MICROSCOPIC Microscopic not EXAMINATION (test indicated and not code = 98904-5) performed. FELICITA (test code = [facility] results FELICITA) reported in Eastern Time. [facility] Clinical Information:SRC: Urine*Urine ?[facility] Source of Specimen:Urine*U jermaine Kasia SeyboldURINALYSIS, [id number] 15:30:00 Test Item Value Reference Range Interpretation Comments SPECIFIC GRAVITY 1.005-1.030 (test code = 2965-2) PH (test code = 5.0-7.5 5803-2) URINE-COLOR (test Yellow Yellow code = 5778-6) APPEARANCE (test code Cloudy Clear A = 5767-9) WBC ESTERASE (test 3+ Negative A code = 5799-2) PROTEIN (test code = 1+ Negative/Trace A 72490-3) GLUCOSE (test code = 1+ Negative A 2349-9) KETONES (test code = Negative Negative 2514-8) OCCULT BLOOD (test Trace Negative A code = 5794-3) BILIRUBIN (test code Negative Negative = 5770-3) UROBILINOGEN,SEMI-QN 0.2 mg/dL 0.2-1.0 (test code = 20621-7) NITRITE, URINE (test Positive Negative A code = 5802-4) MICROSCOPIC See below: Microscopic was EXAMINATION (test indicated and was code = 04760-8) performed. FELICITA (test code = FELICITA) [facility] results reported in [place] Time. [facility] Clinical Information:SRC :Urine*Urine ?[facility] Source of Specimen:Urine* Urine Lab Interpretation Abnormal (test code = 53180-2) Kasia SeyboldMICROSCOPIC [id number] 15:30:00 Test Item Value Reference Range Interpretation Comments WBC (test code = >30 See_Comment A [Automated 5821-4) message] The system which generated this result transmit sven reference range : 0 - 5 /hpf. The reference range was not used to interpret this result as normal/abnormal . RBC (test code = 0-2 See_Comment [Automated 09403-2) message] The system which generated this result [...] code = None seen None seen /lpf 04502-6) BACTERIA (test code = Many None seen/Few A 5769-5) FELICITA (test code = FELICITA) [facility] results reported in [place] Time. [facility] Clinical Information:SRC :Urine*Urine ?[facility] Source of Specimen:Urine* Urine Lab Interpretation Abnormal (test code = 92018-1) Kasia ShepherdyboldIRON AND [id number] 14:37:00 Test Item Value Reference Range Interpretation Comments IRON BIND.CAP.(TIBC) (test 420 ug/dL 250-450 code = 2500-7) UIBC (test code = 2501-5) 372 ug/dL 118-369 H IRON, SERUM (test code = 48 ug/dL 27-139 2498-4) IRON SATURATION (test code 11 % 15-55 L = 2502-3) FELICITA (test code = FELICITA) [facility] results reported in [place] Time. [facility] Clinical Information:SRC:Blo od, venous*Venipunc ture ? [facility] Source of Specimen:Blood, venous*Venipunc Lab Interpretation (test Abnormal code = 45196-8) Kasia ShepherdyboldFERRITIN, [id number] 14:26:00 Test Item Value Reference Range Interpretation Comments FERRITIN, SERUM (test 19 ng/mL 15-150 code = 2276-4) FELICITA (test code = FELICITA) [facility] results reported in [place] Time. [facility] Clinical Information:SRC:Blood, venous*Venipunc ture ? [facility] Source of Specimen:Blood, venous*Venipunc Kasia JonesVITAMIN D, [id number] 14:15:00 Test Item Value Reference Range Interpretation Comments VITAMIN D, 25-HYDROXY 21.2 ng/mL 30.0-100.0 L Vitami n D deficiency (test code = 86371-7) has be en defined by the [employer] and an Endocrine Socie ty practice guidel ine as alevel of se rum 25-OH vitamin D less than 20 ng/mL (1,2).The Endoc rine Society went on to further define vitamin Dinsufficiency as a level between 2 1 and 29 ng/mL (2).1. IOM ([employer]). 2010 . Dietary referen ce ? intakes for ranjan cium and D. [place]: The ? [employer] .2. Anthony MF, Nicolás CAMPOS, Vivien BOCANEGRA, et al. ? Evaluation, treatment, and prevention of vitamin D ? deficiency: an Endocrine Socie ty clinical practi ce ? guideline. JCEM . 2010; 96(7):1911-30. FELICITA (test code = FELICITA) [facility] results reported in Eastern Time. [facility] Clinical Information:SR C:Blood, venous*Venipun c ture ? [facility] Source of Specimen:Blood , venous*Venipun c Lab Interpretation Abnormal (test code = 24629-1) Kasia HaoldURINALYSIS NONAUTO W/O [id number] 20:39:00 Test Item Value Reference Range Interpretation Comments UD KETONES (test code = neg 5-160 904911) UD GLUCOSE (test code = neg 100-2000 997859) UD PROTEIN (test code = neg Trace - 2000 mg/dL 855581) UD LEUKOCYTES (test mod Trace - Large @ 2 code = 989496) min. UD NITRITE (test code = neg Neg. - Pos. @ 60 508826) sec. UD UROBILINOGEN (test 0.2 mg/dL 0.2-8 code = 542191) UD PH (test code = See_Comment [Automat ed 656974) message] The sy stem which generated this result transmitted reference range : 5.0 - 8.5 @ 60 sec.. The refer ence range was not u sed to interpret th is result as normal/abnormal . UD BLOOD (test code = neg Neg. - Large @ 60 832229) sec. UD SPECIFIC GRAVITY See_Comment [Automa sven (test code = 582386) message ] The system which generated this result transmitted reference range : 1.000 - 1.030 @ 45 sec.. The refer ence range was not u sed to interpret th is result as normal/abnormal . UD BILIRUBIN (test code neg Neg. - Large @ 45 = 925579) sec. Lab Interpretation Abnormal (test code = 17092-1) Kasia JonesURINALYSIS, [id number] 20:13:00 Test Item Value Reference Range Interpretation Comments SPECIFIC GRAVITY (test 1.005-1.030 code = 2965-2) PH (test code = 5803-2) 5.0-7.5 URINE-COLOR (test code = Yellow Yellow 5778-6) APPEARANCE (test code = Hazy Clear A 5767-9) WBC ESTERASE (test code = 2+ Negative A 5799-2) PROTEIN (test code = Negative Negative/Trace 03493-0) GLUCOSE (test code = Negative Negative 2349-9) KETONES (test code = Negative Negative 2514-8) OCCULT BLOOD (test code = Trace Negative A 5794-3) BILIRUBIN (test code = Negative Negative 5770-3) UROBILINOGEN,SEMI-QN (test 0.2 mg/dL 0.2-1.0 code = 09571-7) NITRITE, URINE (test code Negative Negative = 5802-4) MICROSCOPIC EXAMINATION See below: (test code = 99106-6) FELICITA (test code = FELICITA) [facility] results reported in Eastern Time. [facility] Clinical Information:SRC:Uri ne ?[facility] Source of Specimen:Urine Lab Interpretation (test Abnormal code = 92934-9) Kasia SeyboldMICROSCOPIC [id number] 20:13:00 Test Item Value Reference Range Interpretation Comments WBC (test code = >30 See_Comment A [Automated 5821-4) message] The system which generated this result transmit sven reference range : 0 - 5 /hpf. The reference range was not used to interpret this result as normal/abnormal . RBC (test code = 0-2 See_Comment [Automated 21150-8) message] The system which generated this result [...] Specimen:Urine Lab Interpretation Abnormal (test code = 34198-1) Kasia [facility] WITH DIFFERENTIAL/[id number] 13:17:00 Test Item Value Reference Range Interpretation [...] 0 % Not Estab. (test code = 84462-6) IMMATURE GRANS (ABS) See_Comment [Autom ated (test code = 05625-4) messag e] The system which generated this result transmit sven reference range : 0.0 - 0.1 x10E3/uL. The reference range was not used to interpret this result as normal/abnormal . FELICITA (test code = FELICITA) [facility] results reported in Eastern Time. [place] Clinical Information:SRC :Blood, venous*Venipunc ture ? [place] Source of Specimen:Blood, venous*Venipunc Lab Interpretation Abnormal (test code = 72898-5) Kasia Ingram HEAD WO [id number] 00:47:44 No acute intracranial abnormality. Preliminary Report Dictated by Resident: Belkys Aponte MD., have reviewed this study and agree with theabove report.Exam: CT HEAD WO CONTRASTHISTORY: Head trauma, [...] acute intracranial abnormality.Preliminary Report Dictated by Resident: Kip O KriderI, Rodrigo-Allan Kenndey, MD., have reviewed this study and agree with theabove report.[facility] METABOLIC PANEL (94028)2020-01-19 00:02:00 Test Item Value Reference Range Interpretation Comments NA (test code = 138 mmol/L 135-145 7791246733) K (test code = 4.3 mmol/L 3.5-5 1681254312) CL (test code = 102 mmol/L 98-108 5221105432) CO2 TOTAL (test code = 27 mmol/L 23-31 6648332104) AGAP (test code = 2-16 1838211537) BUN (test code = 18 mg/dL 7-23 1643998678) GLUCOSE (test code = 294 mg/dL 70-110 H 8695792089) CREATININE (test code = 0.71 mg/dL 0.5-1.04 4594429134) TOTAL BILI (test code = 0.4 mg/dL 0.1-1.6 2872242808) CALCIUM (test code = 10.4 mg/dL 8.6-10.6 4220743339) T PROTEIN (test code = 7.7 g/dL 6.3-8.2 4102452874) ALBUMIN (test code = 4.6 g/dL 3.5-5 6521537790) ALK PHOS (test code = 73 U/L 34-122 2539060226) ALTv (test code = 26 U/L 5-35 1742-6) AST(SGOT) (test code = 29 U/L 13-40 5391665770) eGFR Calculation mL/min/1.73m2 (Non-) (test code = 2947579108) eGFR Calculation mL/min/1.73m2 () (test code = 1569469122) FELICITA (test code = FELICITA) Association of [...] tests). Lab Interpretation Abnormal (test code = 92743-6) [facility] WITH [id number] 23:54:00 Test Item Value Reference Range Interpretation Comments WBC (test code = See_Comment [Automated message] 6690-2) The system [facility] generated this result transmitted ref erence range: 4.30 - 1 1.10 10*3/?L. The re ference range was not u sed to interpret this result as normal/abnor mal. RBC (test code = See_Comment [Automated message] 789-8) The system [facility] generated this result transmitted ref erence range: [...] RDW-SD (test code 40.7 fL 39-49.9 = 78324-5) RDW-CV (test code 13.1 % 12-15.5 = 788-0) PLT (test code = See_Comment [Automated message] 777-3) The system whic h generated this result transmitted ref erence range: 166 - 35 8 10*3/?L. The re ference range was not u sed to interpret this result as normal/abnor mal. MPV (test code = 10.2 fL 9.5-12.9 92409-9) NRBC/100 WBC (test See_Comment [Automat ed message] code = 7177838120) The syste m which generated this result transmitted ref erence range: 0.0 - 10 .0 /100 WBCs. The refer ence range was not u sed to interpret this result as normal/abnor mal. NRBC x10^3 (test <0.01 See_Comment [Automated message] code = 9631699596) The syste m which generated this result transmitted ref erence range: 10*3/?L. The reference range was not used to interpr et this result as normal/abnormal . GRAN MAT (NEUT) % 51.4 % (test code = 770-8) IMM GRAN % (test 0.70 % code = 1568349915) LYMPH % (test code 33.2 % = 736-9) MONO % (test code 9.0 % = 5905-5) EOS % (test code = 4.8 % 713-8) BASO % (test code 0.9 % = 706-2) GRAN MAT 2.91 10*3/uL 1.88-7.09 x10^3(ANC) (test code = 1326437204) IMM GRAN x10^3 0.04 10*3/uL 0-0.06 (test code = 2253687356) LYMPH x10^3 (test 1.88 10*3/uL 1.32-3.29 code = 731-0) MONO x10^3 (test 0.51 10*3/uL 0.33-0.92 code = 742-7) EOS x10^3 (test 0.27 10*3/uL 0.03-0.39 code = 711-2) BASO x10^3 (test 0.05 10*3/uL 0.01-0.07 code = 704-7) [facility] GLUCOSE (AUTOMATED)2019-10-14 16:44:00 Test Item Value Reference Range Interpretation Comments POCT GLU (test code = 5404426239) 331 mg/dL 70-110 H Lab Interpretation (test code = Abnormal 51962-7) [facility] GLUCOSE (AUTOMATED)2019-10-14 13:19:00 Test Item Value Reference Range Interpretation Comments POCT GLU (test code = 8707696927) 237 mg/dL 70-110 H Lab Interpretation (test code = Abnormal 05314-9) [facility] Metabolic Panel (NA, K, CL, CO2, GLUCOSE, BUN, CREATININE, CA)2019-10-14 12:35:00 Test Item Value Reference Range Interpretation Comments NA (test code = 135 mmol/L 135-145 7087893233) K (test code = 4.0 mmol/L 3.5-5 1232236469) CL (test code = 102 mmol/L 98-108 1170365736) CO2 TOTAL (test code = 26 mmol/L 23-31 5623703206) AGAP (test code = 2-16 5307326124) BUN (test code = 19 mg/dL 7-23 3778045767) GLUCOSE (test code = 269 mg/dL 70-110 H 0500822308) CREATININE (test code = 0.70 mg/dL 0.5-1.04 5906949339) CALCIUM (test code = 9.4 mg/dL 8.6-10.6 9581661952) eGFR Calculation mL/min/1.73m2 (Non-) (test code = 0049515195) eGFR Calculation mL/min/1.73m2 () (test code = 0309641951) FELICITA (test code = FELICITA) Association of [...] tests). Lab Interpretation Abnormal (test code = 25280-0) [facility] 12[facility]35[facility]00 Test Item Value Reference Range Interpretation Comments LIPASE (test code = 9848058763) 158 U/L 0-220 Lab Interpretation (test code = Normal 76527-9) [facility]AllenHEPAT[facility] FUNCTION PANEL (55946) (ALB,T.PRO,BILI T,BU/BC,ALT,AST,ALK PHOS)2019-10-14 12:35:00 Test Item Value Reference Range Interpretation Comments TOTAL BILI (test code = 5208525927) 0.4 mg/dL 0.1-1.1 BILI UNCON (test code = 3101864757) 0.5 mg/dL 0.1-1.1 BILI CONJ (test code = 4028059844) 0.0 mg/dL 0-0.3 T PROTEIN (test code = 9567679033) 7.3 g/dL 6.3-8.2 ALBUMIN (test code = 7272236015) 4.1 g/dL 3.5-5 ALK PHOS (test code = 0674690914) 46 U/L 34-122 ALTv (test code = 1742-6) 45 U/L 5-35 H AST(SGOT) (test code = 0149834328) 43 U/L 13-40 H Lab Interpretation (test code = Abnormal 70203-9) [facility] with [id number] 12:26:00 Test Item Value Reference Range Interpretation Comments WBC (test code = See_Comment [Automated 6690-2) message] The sy stem which generated this result transmitted reference range : 4.30 - 11.10 10*3/?L. The reference range was not used to interpret this result as normal/abnormal . RBC (test code = See_Comment [Automated 789-8) message] The sy stem which [...] RDW-SD (test code = 41.1 fL 39-49.9 58862-3) RDW-CV (test code = 13.1 % 12-15.5 788-0) PLT (test code = See_Comment [Automated 777-3) message] The sy stem which generated this result transmitted reference range : 166 - 358 10*3/ ?L. The reference r liya was not used to interpret this result as normal/abnormal . MPV (test code = 10.7 fL 9.5-12.9 61920-0) NRBC/100 WBC (test See_Comment [Automat ed code = 5110649762) message] The system which generated this result transmitted reference range : 0.0 - 10.0 /100 WBCs. The refer ence range was not u sed to interpret th is result as normal/abnormal . NRBC x10^3 (test code <0.01 See_Comment [Auto mated = 4420057119) message] The s ystem which generated this result transmitted reference range : 10*3/?L. The reference range was not used to interpret this result as normal/abnormal . GRAN MAT (NEUT) % 74.5 % (test code = 770-8) IMM GRAN % (test code 0.30 % = 8263412209) LYMPH % (test code = 16.3 % 736-9) MONO % (test code = 8.8 % 5905-5) EOS % (test code = 0.0 % 713-8) BASO % (test code = 0.1 % 706-2) GRAN MAT x10^3(ANC) 5.79 10*3/uL 1.88-7.09 (test code = 1982022431) IMM GRAN x10^3 (test <0.03 0-0.06 code = 4692382384) LYMPH x10^3 (test code 1.27 10*3/uL 1.32-3.29 L = 731-0) MONO x10^3 (test code 0.68 10*3/uL 0.33-0.92 = 742-7) EOS x10^3 (test code = <0.03 0.03-0.39 L 711-2) BASO x10^3 (test code <0.03 0.01-0.07 = 704-7) Lab Interpretation Abnormal (test code = 11225-4) [facility] GLUCOSE (AUTOMATED)2019-10-14 06:22:00 Test Item Value Reference Range Interpretation Comments POCT GLU (test code = 8449683953) 328 mg/dL 70-110 H Lab Interpretation (test code = Abnormal 38635-9) [facility] GLUCOSE (AUTOMATED)2019-10-14 01:39:00 Test Item Value Reference Range Interpretation Comments POCT GLU (test code = 424 mg/dL 70-110 H Notifi ed Provider 6782048323) Lab Interpretation (test Abnormal code = 38325-3) [facility] GLUCOSE (AUTOMATED)2019-10-13 21:45:00 Test Item Value Reference Range Interpretation Comments POCT GLU (test code = 0167033881) 282 mg/dL 70-110 H Lab Interpretation (test code = Abnormal 76083-7) [facility] TIME OR (NON-REPORTABLE)2019-10-13 15:31:01 These images do not require a Radiology diagnostic report.[facility] GLUCOSE (AUTOMATED)2019-10-13 13:05:00 Test Item Value Reference Range Interpretation Comments POCT GLU (test code = 1118384730) 167 mg/dL 70-110 H Lab Interpretation (test code = Abnormal 86550-6) [facility] METABOLIC PANEL (34649)2019-10-13 12:42:00 Test Item Value Reference Range Interpretation Comments NA (test code = 137 mmol/L 135-145 4449995032) K (test code = 4.0 mmol/L 3.5-5 9574974007) CL (test code = 107 mmol/L 98-108 3128147104) CO2 TOTAL (test code = 25 mmol/L 23-31 8880357111) AGAP (test code = 2-16 6001761588) BUN (test code = 11 mg/dL 7-23 4566432586) GLUCOSE (test code = 154 mg/dL 70-110 H 1683876698) CREATININE (test code = 0.56 mg/dL 0.5-1.04 3609419962) TOTAL BILI (test code = 0.3 mg/dL 0.1-1.5 4342608915) CALCIUM (test code = 9.1 mg/dL 8.6-10.6 1622968910) T PROTEIN (test code = 6.5 g/dL 6.3-8.2 6717012995) ALBUMIN (test code = 3.6 g/dL 3.5-5 5251418272) ALK PHOS (test code = 40 U/L 34-122 5159042517) ALTv (test code = 24 U/L 5-35 1742-6) AST(SGOT) (test code = 31 U/L 13-40 5989929092) eGFR Calculation mL/min/1.73m2 (Non-) (test code = 5517514395) eGFR Calculation mL/min/1.73m2 () (test code = 2141349452) FELICITA (test code = FELICITA) Association of [...] tests). Lab Interpretation Abnormal (test code = 71901-5) [facility] 12:41:00 Test Item Value Reference Range Interpretation Comments LIPASE (test code = 8895634046) 130 U/L 0-220 Lab Interpretation (test code = Normal 67101-5) [facility] with [id number] 12:16:00 Test Item Value Reference Range Interpretation Comments WBC (test code = See_Comment L [Automated 9190-2) message] The sy stem which generated this result transmitted reference range : 4.30 - 11.10 10*3/?L. The reference range was not used to interpret this result as normal/abnormal . RBC (test code = See_Comment L [Automated 209-8) message] The sy stem which generated this [...] RDW-SD (test code = 43.5 fL 39-49.9 85806-9) RDW-CV (test code = 13.2 % 12-15.5 788-0) PLT (test code = See_Comment [Automated 777-3) message] The sy stem which generated this result transmitted reference range : 166 - 358 10*3/ ?L. The reference r liya was not used to interpret this result as normal/abnormal . MPV (test code = 10.2 fL 9.5-12.9 60109-9) NRBC/100 WBC (test See_Comment [Automat ed code = 6296666347) message] The system which generated this result transmitted reference range : 0.0 - 10.0 /100 WBCs. The refer ence range was not u sed to interpret th is result as normal/abnormal . NRBC x10^3 (test code <0.01 See_Comment [Auto mated = 7704762901) message] The s ystem which generated this result transmitted reference range : 10*3/?L. The reference range was not used to interpret this result as normal/abnormal . GRAN MAT (NEUT) % 47.5 % (test code = 770-8) IMM GRAN % (test code 0.20 % = 6265671882) LYMPH % (test code = 36.4 % 736-9) MONO % (test code = 10.3 % 5905-5) EOS % (test code = 4.9 % 713-8) BASO % (test code = 0.7 % 706-2) GRAN MAT x10^3(ANC) 2.02 10*3/uL 1.88-7.09 (test code = 5211015517) IMM GRAN x10^3 (test <0.03 0-0.06 code = 7960523031) LYMPH x10^3 (test code 1.55 10*3/uL 1.32-3.29 = 731-0) MONO x10^3 (test code 0.44 10*3/uL 0.33-0.92 = 742-7) EOS x10^3 (test code = 0.21 10*3/uL 0.03-0.39 711-2) BASO x10^3 (test code 0.03 10*3/uL 0.01-0.07 = 704-7) Lab Interpretation Abnormal (test code = 45523-1) [facility]-DENSITY LIPOPROTEIN, [id number] 08:29:00 Test Item Value Reference Range Interpretation Comments dLDL Chol (test code = 65395-2) 76 mg/dL <130 Lab Interpretation (test code = Normal 97795-0) [facility] GLUCOSE (AUTOMATED)2019-10-12 22:49:00 Test Item Value Reference Range Interpretation Comments POCT GLU (test code = 3164602108) 249 mg/dL 70-110 H Lab Interpretation (test code = Abnormal 89619-0) [facility]AllenLIPID PANEL (82387)(TOTAL CHOLESTEROL, TRIGLYCERIDES, HDL)2019-10-12 21:11:00 Test Item Value Reference Range Interpretation Comments CHOL (test code = 172 mg/dL 120-200 2845827650) HDL (test code = 32 mg/dL >50 L 0428678977) HDLC RATIO (test code = See_Comment H [Au tomated message] 1371390323) The system [facility] generated this result transmitted ref erence range: <=4.5. T he reference range was not used to int erpret this result as normal/abnormal . TRIG (test code = 491 mg/dL 30-170 H 7795862636) LDL CHOL (test code = Unable to calculate 69552-1) LDL due to elev ated triglyceride le tatyana greater than 40 0 mg/dL. VLDL (test code = 98 mg/dL 5-60 H 7433152598) Lab Interpretation Abnormal (test code = 63069-0) [facility] GLUCOSE (AUTOMATED)2019-10-12 21:05:00 Test Item Value Reference Range Interpretation Comments POCT GLU (test code = 2961378993) 180 mg/dL 70-110 H Lab Interpretation (test code = Abnormal 82315-7) [facility] GLUCOSE (AUTOMATED)2019-10-12 16:39:00 Test Item Value Reference Range Interpretation Comments POCT GLU (test code = 2147780928) 212 mg/dL 70-110 H Lab Interpretation (test code = Abnormal 93047-6) [facility] GALL [id number] 14:16:58HISTORY: Gallstones, pancreatitis. TECHNIQUE: Gallbladder is evaluated [...] CONCLUSION: Chronic cholecystitis with single mobile gallstone. [facility], Radiant Results Inft User - 10/12/2019 [...] CONCLUSION: Chronic cholecystitis with single mobile gallstone. [facility] ABDOMEN PELVIS W [id number] 13:04:17 1. ?Minimal fullness of the pancreatic [...] intrathoracic findings. LIVER: No focal hepatic lesions. ?Yvdd372lf contour. GALLBLADDER AND BILIARY TREE: Partially decompressed [...] detailed intrathoracic findings.LIVER: No focal hepatic lesions. [id number] contour.GALLBLADDER AND BILIARY TREE:Partially decompressed gallbladder containingcholelithiasis. [...] reviewed this study and agree with theabove report.[facility] ANGIOGRAM [id number] 12:37:46 1. ?No evidence of a pulmonary [...] reviewed this study and agree with theabove report.[facility] 2019-10-12 12:12:00 Test Item Value Reference Range Interpretation Comments TROPONIN I (test <0.012 See_Comment [Automated code = 8426641526) message] The system which generated this result [...] ? Lab Interpretation Normal (test code = 63243-4) [facility]AllenGlycosylated Hemoglobin (A1C)2019-10-12 12:05:00 Test Item Value Reference Range Interpretation Comments HGB A1C (test code = 9.0 % 4-6 H 4548-4) FELICITA (test code = FELICITA) %A1C (NGSP) Interpretation (ADA)4.8-5.6 ? ? Normal or (Non-Diabetic Range)5.7-6.4 ? ? Increased Risk (Pre-Diabetic)>6.5 ?Diabetes Indicated Lab Interpretation Abnormal (test code = 32702-2) [facility]2020-[facility] 12:01:00 Test Item Value Reference Range Interpretation Comments LIPASE (test code = 8397644718) 500 U/L 0-220 H Lab Interpretation (test code = Abnormal 70041-8) [facility])2019-10-12 10:34:00 Test Item Value Reference Range Interpretation Comments POCT GLU (test code = 2444965366) 251 mg/dL 70-110 H Lab Interpretation (test code = Abnormal 46913-7) [facility]AllenXR CHEST 1 VW [id number] 05:33:21 No acute intrathoracic abnormality, specifically no detectable radiographicfindings to suggest COVID-19 pneumonia. Disclaimer: Generally, the findings on chest imaging in COVID-19 are notspecific, andoverlap with other infections, including influenza, H1N1,SARS and MERS.According to the Centers for Disease Control (CDC) and recent statement ofthe [employer], viral testing remains the [...] Surgical clips project over the right neck. [facility], Radiant Results Inft User - 10/12/2019 12:34 [...] Disease Control (CDC) and recent statement ofthe [employer], viral testing remains the only specificmethod of diagnosis. Confirmation with the viral test is required, even ifradiologic findings are suggestive of COVID-[address]. Preliminary Report Dictated by Resident: Kya Vigil MD., have reviewed this study and agree with the abovereport.[facility] [id number] 03:07:00 Test Item Value Reference Range Interpretation Comments LIPASE (test code = 8186989176) 4504 U/L 0-220 H Lab Interpretation (test code = Abnormal 05437-1) [facility]AllenTROPONIN [id number] 02:38:00 Test Item Value Reference Range Interpretation Comments TROPONIN I (test <0.012 See_Comment [Automated code = 4962148518) message] The system which generated this result [...] ? Lab Interpretation Normal (test code = 94725-4) [facility]AllenN-TERMINAL [id number] 02:35:00 Test Item Value Reference Range Interpretation Comments NT-proBNP (test code 115 pg/mL See_Comment [Autom ated = 8275317221) message] The system which generated this result transmitted reference range : <=125. The reference range was not used to interpret this result as normal/abnormal . FELICITA (test code = FELICITA) Biotin has been reported to cause a negative bias, interpret results relative to patient's use of biotin. Lab Interpretation Normal (test code = 54532-9) [facility]. METABOLIC PANEL (22194)2019-10-12 02:26:00 Test Item Value Reference Range Interpretation Comments NA (test code = 134 mmol/L 135-145 L 6531951052) K (test code = 4.4 mmol/L 3.5-5 0764326308) CL (test code = 100 mmol/L 98-108 3958498357) CO2 TOTAL (test code = 24 mmol/L 23-31 9677970167) AGAP (test code = 2-16 4212538445) BUN (test code = 28 mg/dL 7-23 H 3085588386) GLUCOSE (test code = 253 mg/dL 70-110 H 3769033697) CREATININE (test code = 0.88 mg/dL 0.5-1.04 5075338069) TOTAL BILI (test code = 0.2 mg/dL 0.1-1.3 6717342853) CALCIUM (test code = 10.5 mg/dL 8.6-10.6 0722732365) T PROTEIN (test code = 7.8 g/dL 6.3-8.2 0131094033) ALBUMIN (test code = 4.5 g/dL 3.5-5 3806352441) ALK PHOS (test code = 60 U/L 34-122 0434463605) ALTv (test code = 19 U/L 5-35 1742-6) AST(SGOT) (test code = 22 U/L 13-40 7413533210) eGFR Calculation mL/min/1.73m2 (Non-) (test code = 2524607915) eGFR Calculation mL/min/1.73m2 () (test code = 7806442658) FELICITA (test code = FELICITA) Association of [...] tests). Lab Interpretation Abnormal (test code = 52862-3) [facility] (ID NOW RAPID TESTING)2019-10-12 02:24:00 Test Item Value Reference Range Interpretation Comments SARS-CoV-2 Rapid ID NOW Not Detected Not Detected (test code = 12779-6) FELICITA (test code = FELICITA) ID NOW COVID-19 Assay is an isothermal nucleic acid amplification test intended for the qualitative detection of nucleic acid from SARS-CoV-2 viral RNA in nasopharyngeal (PRECISION MACHINE OPERATOR) specimens. It is used under [...] indicated. Lab Interpretation Normal (test code = 12625-5) [facility] McAllenPROTHROMBIN TIME / [id number] 02:11:00 Test Item Value Reference Range Interpretation Comments PROTIME PATIENT (test See_Comment [Auto mated message] code = 5964-2) The system [employer] generated this result transmitted ref erence range: 12.0 - 1 4.7 Seconds. The re ference range was not u sed to interpret this result as normal/abnor mal. INR (test code = 6301-6) Nor mal INR <1.1; Warfarin Therap eutic range 2.0 to 3. 0 or 2.5 to 3.5, dep ending upon the indica tions. Lab Interpretation (test Normal code = 65906-2) [facility] WITH [id number] 02:04:00 Test Item Value Reference Range Interpretation Comments WBC (test code = See_Comment [Automated message] 6690-2) The system [facility] generated this result transmitted ref erence range: 4.30 - 1 1.10 10*3/?L. The re ference range was not u sed to interpret this result as normal/abnor mal. RBC (test code = See_Comment [Automated message] 639-8) The system [facility] generated this result transmitted ref erence range: [...] RDW-SD (test code 40.9 fL 39-49.9 = 25074-5) RDW-CV (test code 12.9 % 12-15.5 = 788-0) PLT (test code = See_Comment [Automated message] 877-3) The system [facility] generated this result transmitted ref erence range: 166 - 35 8 10*3/?L. The re ference range was not u sed to interpret this result as normal/abnor mal. MPV (test code = 10.2 fL 9.5-12.9 10088-0) NRBC/100 WBC (test See_Comment [Automat ed message] code = 0212511836) The syste m which generated this result transmitted ref erence range: 0.0 - 10 .0 /100 WBCs. The refer ence range was not u sed to interpret this result as normal/abnor mal. NRBC x10^3 (test <0.01 See_Comment [Automated message] code = 8360507163) The syste m which generated this result transmitted ref erence range: 10*3/?L. The reference range was not used to interpr et this result as normal/abnormal . GRAN MAT (NEUT) % 46.5 % (test code = 770-8) IMM GRAN % (test 0.50 % code = 6613768403) LYMPH % (test code 38.7 % = 736-9) MONO % (test code 9.3 % = 5905-5) EOS % (test code = 4.1 % 713-8) BASO % (test code 0.9 % = 706-2) GRAN MAT 2.71 10*3/uL 1.88-7.09 x10^3(ANC) (test code = 3138429942) IMM GRAN x10^3 0.03 10*3/uL 0-0.06 (test code = 5799438015) LYMPH x10^3 (test 2.25 10*3/uL 1.32-3.29 code = 731-0) MONO x10^3 (test 0.54 10*3/uL 0.33-0.92 code = 742-7) EOS x10^3 (test 0.24 10*3/uL 0.03-0.39 code = 711-2) BASO x10^3 (test 0.05 10*3/uL 0.01-0.07 code = 704-7) [facility]"
[2022-05-13 18:18] LABS: Absolute Lymphocytes (CBC) 0.8 K/uL (0.7-4.9); Hematocrit 36.3 % (36.0-45.0); MCV 85.9 fL (80-100); MPV 8.7 fL (7.6-11.3); RBC Red Blood Cell Count 4.23 M/uL (3.86-4.86)
[2022-05-13] MEDS ORDERED: CEFTRIAXONE 1000 MG/VIAL ONE (18:22)
[2022-05-13] MEDS ORDERED: ACETAMINOPHEN 500 MG TAB ONE (18:22)
[2022-05-13 18:35] LABS: Bilirubin Total 0.5 mg/dL (0.2-1.0); Potassium 3.8 mmol/L (3.5-5.1)
[2022-05-13 18:37] LABS: Protime INR 1.09
[2022-05-13 19:53] LABS: Urine Blood 1+ (Negative); Urine Glucose 2+ (Negative); Urine Protein 2+ (Negative); Urine Specific Gravity 1.015 (1.005-1.030); Urine pH 5.5 (5.0-7.0)
--- NOTE | 2022-05-13 19:54 | P.HP ---
Certification for Inpatient Patient admitted to: Inpatient With expected LOS: <2 Midnights Patient will require the following post-hospital care: None Practitioner: I am a practitioner with admitting privileges, knowledge of patient current condition, hospital course, and medical plan of care. Services: Services provided to patient in accordance with Admission requirements found in Title 42 Section 412.3 of the Code of Federal Regulations Patient History Date of Service: 05/13/22 Primary Care Provider: Marcus Reason for admission: UTI/Sepsis History of Present Illness: Patient is a 76-year-old female with past medical history of diabetes mellitus type 2insulin-dependent, hypertension, hyperlipidemia, GERD, and CAD who was to the emergency department from PCP with fever and abnormal UA. She does complain of some suprapubic tenderness and mild right sided CVA tenderness. She was noted to be tachycardic, tachypneic, and febrile upon arrival. Urine with positive nitrite, 1+ LE, > 50 WBC, 1+ blood, 2+ protein. Other labs significant for sodium 133, BUN 23, glucose 256. CT abdomen pelvis suggestive of right sided pyelonephritis with some gas related to recent cystoscopy. She was started on rocephin the emergency department and will be admitted for further management. Allergies No Known Drug Allergies Allergy (Verified 11/21/21 09:36) Unknown Home medications list reviewed: Yes Home Medications: Metformin ER [Glucophage ER*] 1,000 mg PO BID 03/30/14 Clopidogrel Bisulfate [Plavix*] 75 mg PO DAILY 05/06/15 Amlodipine [Norvasc*] 5 mg PO DAILY 11/30/16 Metoprolol Succinate [Toprol Xl*] 100 mg PO DAILY 11/30/16 Celecoxib 1 cap PO BID 03/30/21 Famotidine 1 tab PO BID 03/30/21 Ferrous Sulfate 1 tab PO DAILY 03/30/21 Gabapentin 1 cap PO TID 03/30/21 Insulin Aspart Prot/Insuln Asp [Novolog Mix 70-30 Flexpen] 20 units SQ BID 03/30/21 Lisinopril [Zestril] 20 mg PO DAILY 03/30/21 Pantoprazole [Protonix Tab*] 20 mg PO DAILY 03/30/21 Rosuvastatin Calcium [Crestor] 10 mg PO DAILY 03/30/21 Sennosides [Senna] 1 cap PO BEDTIME 03/30/21 Vitamin D [Drisdol*] 1,000 unit PO DAILY 03/30/21 Aspirin [Aspirin EC 81 MG] 81 mg PO DAILY #30 tab 04/16/22 - Past Medical/Surgical History Diabetic: Yes -: HTN -: IDDM -: AL -: CAD -: GERD -: Hyperlipidemia -: Kidney stone -: thyroidectomy -: Stent in LAD (03/2014) -: Cholecystectomy -: kidney stones removed Psychosocial/ Personal History: Patient lives at home with her daughter. - Family History Father -: Heart disease, Hypertension, Diabetes, Stroke Mother -: Heart disease, Diabetes Sister -: Hypertension, Diabetes, Cancer Notes: breast cancer Brother -: Heart disease, Stroke - Social History Smoking Status: Never smoker Alcohol use: No CD- Drugs: No Caffeine use: No Place of Residence: Home Review of Systems General: Fever Genitourinary: Dysuria, Frequency, Urgency Physical Examination - Vital Signs Temperature: 99.6 F Blood Pressure: 134/60 Pulse: 71 Respirations: 29 Pulse Ox (%): 95 - Physical Exam General: Alert, In no apparent distress HEENT: Atraumatic, EOMI, Sclerae nonicteric Neck: Supple, 2+ carotid pulse no bruit Respiratory: Clear to auscultation bilaterally, Normal air movement Cardiovascular: Regular rate/rhythm, Normal S1 S2 Gastrointestinal: Normal bowel sounds, No tenderness Musculoskeletal: No tenderness Integumentary: No rashes Neurological: Normal speech, Normal affect - Studies Laboratory Data (last 24 hrs) 05/13/22 18:05: PT 12.0, INR 1.09, APTT 31.7 05/13/22 18:05: Sodium 133 L, Potassium 3.8, BUN 23 H, Creatinine 0.93, Glucose 256 H, Total Bilirubin 0.5, AST 8 L, ALT 18, Alkaline Phosphatase 74 05/13/22 18:05: WBC 7.80, Hgb 12.1, Hct 36.3, Plt Count 236 Assessment and Plan - Problems (Diagnosis) (1) Sepsis Current Visit: Yes Status: Acute Qualifiers: Sepsis type: sepsis due to unspecified organism Sepsis acute organ dysfunction status: without acute organ dysfunction Qualified Code(s): A41.9 - Sepsis, unspecified organism (2) UTI (urinary tract infection) Current Visit: Yes Status: Acute Qualifiers: Urinary tract infection type: acute cystitis Hematuria presence: with hematuria Qualified Code(s): N30.01 - Acute cystitis with hematuria (3) Coronary artery disease Current Visit: Yes Status: Chronic Qualifiers: Coronary Disease-Associated Artery/Lesion type: [place] artery [place] vs. transplanted heart: [place] heart Associated angina: without angina Qualified Code(s): I25.10 - Atherosclerotic heart disease of [place] coronary artery without angina pectoris (4) Hyperlipidemia Current Visit: Yes Status: Chronic Qualifiers: Hyperlipidemia type: unspecified Qualified Code(s): E78.5 - Hyperlipidemia, unspecified (5) Hypertension Current Visit: Yes Status: Chronic Qualifiers: Hypertension type: primary hypertension Qualified Code(s): I10 - Essential (primary) hypertension (6) Type 2 diabetes mellitus Current Visit: Yes Status: Chronic Qualifiers: Diabetes mellitus nursing home insulin use: without assistant terminal manager use Diabetes mellitus complication status: with hyperglycemia Qualified Code(s): E11.65 - Type 2 diabetes mellitus with hyperglycemia - Plan Patient is admitted for further management of UTI/sepsis. Continue rocephin. Previous urine cultures with antibiotic pansensivity. Blood and urine cultures obtained. Lactate WNL. BP stable. ACHS accu checks with mild sliding scale and diabetic diet. Monitor and replete electrolytes per protocol. Reconcile and continue home medications. Discharge Plan: Home Plan to discharge in: 48 Hours - Advance Directives Does patient have a Living Will: No Does patient have a Durable POA for Healthcare: No - Code Status/Comfort Care Code Status Assessed: Yes Code Status: Full Code Physician Review: Patient Assessed, Agree with Above Assessment and Plan Critical Care: No Time Spent Managing Pts Care (In Minutes): 50
[2022-05-13 20:05] LABS: Urine Bacteria <20 /HPF (<20); Urine Mucus Slight /HPF (None Seen)
--- NOTE | 2022-05-13 21:12 | RAD REPORT ---
EXAM DESCRIPTION: CT - Abdomen Pelvis W Contrast - 05/13/2022 8:33 pm CLINICAL HISTORY: PYELONEPHRITIS COMPARISON: Abdomen Pelvis W Contrast dated 04/14/2022; Abdomen Pelvis W Contrast dated 03/29/2021; Abdomen Pelvis W Contrast dated 11/17/2016 TECHNIQUE: Thin cut axial CT imaging of the abdomen and pelvis was performed following intravenous a dministration of 90 mL Isovue 300. Multiplanar reformats were generated and reviewed. All CT scans are performed using dose optimization technique as appropriate and may include automated exposure control or mA/KV adjustment according to patient size. FINDINGS: No suspicious findings in the lung bases. The liver, spleen, and pancreas show no suspicious findings. No suspicious adrenal lesions. Status po st cholecystectomy. 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 No evidence of intra or ext rahepatic biliary ductal dilation. Mild dilation along the Right lower renal calyx with few gas locules within, and urothelial enhanceme nt that extends along the middle calyx and right renal pelvis. Focus of parenchymal hypoattenuation p osteriorly at the mid to lower pole on the right. Mild inflammatory changes along the right lower gilberto al pole with fluid tracking along the right paracolic gutter. No suspicious masses. Cortical thinning bilaterally most notably at the lower poles again noted. Small radiodense calculi at the right lower pole, layering dependently, not significantly changed. No dilated bowel loops or bowel wall thickening. No free air, free fluid or inflammatory stranding. N o hernia, mass or bulky lymphadenopathy. The urinary bladder is is suboptimally distended, however de monstrating mild diffuse urothelial enhancement and some wall thickening along the dome. No suspicious bony findings. IMPRESSION: Mild dilation along the right lower renal calyx with few gas locules within, and urothel ial enhancement that extends along the middle calyx and right renal pelvis. Mild inflammatory changes along the right lower renal pole with fluid tracking along the right paracolic gutter, with focus of parenchymal hypoattenuation. Mild urothelial enhancement along the bladder as well. Given related hi story of recent cystoscopy, the findings could be reactive or related to pyelonephritis with an ascen ding infection. The gas locules are probably related to recent intervention rather than to a gas-form ing organism. Layering tiny calculi along the right lower renal calyx. Other stable incidental findings as above. The findings were communicated to Kimberly Huntley on 05/13/2022 at 21:02 hours.
[2022-05-13] MEDS ORDERED: ONDANSETRON 4 MG/2 ML VIAL IV PRN (21:57)
[2022-05-13] MEDS: NA CHLORIDE 0.9% 1,000 ML IV SCH (21:57)
[2022-05-13] MEDS ORDERED: ALBUTEROL 2.5 MG/3 ML NEB SOL NEB PRN (21:57)
[2022-05-13] MEDS ORDERED: ACETAMINOPHEN 500 MG TAB PO PRN (21:57)
[2022-05-13] MEDS: INSULIN -REGULAR HUMAN 50 UNIT/0.5 ML ML SQ SCH (21:57)
[2022-05-13] MEDS ORDERED: NA CHLORIDE 0.9% 1,000 ML ONE (22:09)
[2022-05-13] MEDS ORDERED: INSULIN -REGULAR HUMAN 50 UNIT/0.5 ML ML ONE (22:15)
[2022-05-13 22:31] LABS: SARS-CoV-2 Antigen Rapid Res Negative (Negative)
[2022-05-14 04:20] VITALS: BMI 24.8
[2022-05-14] MEDS ORDERED: IBUPROFEN 400 MG TAB PO ONE (05:25)
[2022-05-14 06:25] LABS: Absolute Lymphocytes (CBC) 0.7 K/uL (0.7-4.9); Hematocrit 34.6 % (36.0-45.0); Lymphocytes % 8.3 % (15.3-44.8); MCV 86.4 fL (80-100); MPV 8.9 fL (7.6-11.3)
[2022-05-14 06:29] LABS: Potassium 3.9 mmol/L (3.5-5.1)
[2022-05-14 06:35] LABS: Magnesium 1.2 mg/dL (1.6-2.4)
[2022-05-14] MEDS: CEFTRIAXONE 1,000 MG in NA CHLORIDE 0.9% 50 ML IVPB SCH (08:28)
[2022-05-14] MEDS: INSULIN -REGULAR HUMAN 50 UNIT/0.5 ML ML SQ SCH ×4 (08:29→20:45)
[2022-05-14] MEDS ORDERED: POTASSIUM CL SA 10 MEQ TAB PO ONE (09:00)
[2022-05-14] MEDS ORDERED: Magnesium Sulfate 2gm IVPB 2 G/50 ML BAG IV ONE (09:00)
[2022-05-14] MEDS: NA CHLORIDE 0.9% 1,000 ML IV SCH (10:20)
[2022-05-14] MEDS: ACETAMINOPHEN 500 MG TAB PO PRN ×2 (12:04→20:58)
[2022-05-14] MEDS ORDERED: ALBUTEROL 2.5 MG/3 ML NEB SOL NEB PRN (14:00)
[2022-05-14] MEDS ORDERED: KETOROLAC 30 MG/ML INJ IV ONE (15:53)
--- NOTE | 2022-05-14 16:19 | EKG ---
Test Date: 2022-05-14 Test Time: 12:26:49 Welder Fitter Helper: CLOVER MEASUREMENT RESULTS: Intervals: Rate: 115 OK: 154 QRSD: 70 QT: 316 QTc: 437 [place]: P: 59 OK: 154 QRS: 66 T: 81 INTERPRETIVE STATEMENTS: Sinus tachycardia Nonspecific ST abnormality Abnormal ECG Compared to ECG 05/13/2022 18:02:28 ST (T wave) deviation now present Sinus rhythm no longer present Electronically Signed On 05-14-22 16:18:56 AUTO MECHANICS TEACHER by Delmer Palmer
--- NOTE | 2022-05-14 16:22 | EKG ---
Test Date: 2022-05-13 Test Time: 18:02:28 Tar Pot Worker: BRENDA MEASUREMENT RESULTS: Intervals: Rate: 99 WV: 154 QRSD: 76 QT: 330 QTc: 423 [place]: P: 47 WV: 154 QRS: 65 T: 60 INTERPRETIVE STATEMENTS: Normal sinus rhythm Normal ECG Compared to ECG 04/15/2022 16:11:12 No significant changes Electronically Signed On 05-14-22 16:19:46 SUPERVISOR CHEMICAL by Delmer Palmer
[2022-05-14] MEDS ORDERED: MAGNESIUM SULFATE 1 gm IVPB 1 GM/100 ML BAG IV ONE (17:13)
[2022-05-15] MEDS: ACETAMINOPHEN 500 MG TAB PO PRN (03:55)
[2022-05-15 05:03] LABS: Hematocrit 31.2 % (36.0-45.0); Lymphocytes % 12.3 % (15.3-44.8); MCV 86.6 fL (80-100); MPV 9.2 fL (7.6-11.3)
[2022-05-15 05:10] LABS: Magnesium 2.1 mg/dL (1.6-2.4); Phosphorus 2.1 mg/dL (2.5-4.9); Potassium 4.3 mmol/L (3.5-5.1)
[2022-05-15] MEDS: POTASS/SODIUM PHOSPHATE 1 PKT POWD.PACK PO SCH ×3 (08:18→09:13)
[2022-05-15] MEDS: CEFTRIAXONE 1,000 MG in NA CHLORIDE 0.9% 50 ML IVPB SCH ×2 (08:19→20:47)
[2022-05-15] MEDS: INSULIN -REGULAR HUMAN 50 UNIT/0.5 ML ML SQ SCH ×4 (08:20→21:28)
[2022-05-15] MEDS ORDERED: BISACODYL E.C. 5 MG TAB PO ONE (10:51)
[2022-05-15] MEDS: TRAMADOL HCL 50 MG TAB PO PRN (20:47)
[2022-05-16] MEDS: INSULIN -REGULAR HUMAN 50 UNIT/0.5 ML ML SQ SCH ×4 (07:57→20:39)
[2022-05-16] MEDS: CEFTRIAXONE 1,000 MG in NA CHLORIDE 0.9% 50 ML IVPB SCH ×2 (07:58→20:40)
[2022-05-16] MEDS ORDERED: METOPROLOL TARTRATE 5 MG/5 ML INJ IV STA ×3 (08:10→11:11)
[2022-05-16] MEDS: METOPROLOL TARTRATE 5 MG/5 ML INJ IV STA ×2 (11:34→11:35)
[2022-05-16] MEDS ORDERED: METOPROLOL XL 50 MG TAB PO ONE (14:08)
[2022-05-16] MEDS ORDERED: DIGOXIN 0.25 MG/ML AMP IV ONE (14:09)
[2022-05-16] MEDS ORDERED: ALPRAZOLAM 0.5 MG TABLET PO ONE (14:33)
[2022-05-16] MEDS: NA CHLORIDE 0.9% 1,000 ML IV SCH (15:24)
[2022-05-16] MEDS: ENOXAPARIN 30 MG/0.3 ML SQ SCH (18:44)
[2022-05-16] MEDS: TRAMADOL HCL 50 MG TAB PO PRN (20:35)
[2022-05-16] MEDS: DIGOXIN 0.25 MG/ML AMP IV SCH (20:38)
[2022-05-16] MEDS: MUPIROCIN 2% OINT 22GM TUBE TOP SCH (20:39)
--- NOTE | 2022-05-17 00:17 | P.PN ---
Subjective Date of Service: 05/14/22 Patient is doing well. Urine cultures are pending. Continue with antibiotic therapy. Blood cultures pending as well. Patient was frequent urinary tract infection So we will continue to monitor closely. Review of Systems 10-point ROS is otherwise unremarkable Physical Examination - Vital Signs Temperature: 98.6 F Blood Pressure: 130/68 Pulse: 73 Respirations: 16 Pulse Ox (%): 98 - Physical Exam General: Alert, In no apparent distress, Oriented x3 Respiratory: Clear to auscultation bilaterally, Normal air movement Cardiovascular: Regular rate/rhythm, Normal S1 S2, Systolic murmur Gastrointestinal: Normal bowel sounds, Soft and benign, Non-distended, No tenderness Musculoskeletal: No clubbing, No swelling, No tenderness Neurological: Sensation intact, Cranial nerves 3-12 intact - Studies Microbiology Data (last 24 hrs): 05/13/22 17:50 Blood - Blood Aerobic Blood Culture - Final Gram Neg Francisco Escherichia Coli Esbl 05/13/22 17:50 Blood - Blood Blood Culture Gram Stain - Final 05/13/22 17:50 Blood - Blood Anaerobic Blood Culture - Final Escherichia Coli Esbl 05/13/22 17:50 Blood - Blood Gram Stain - Final 05/13/22 18:07 Blood - Blood Gram Stain - Final Medications List Reviewed: Yes Assessment & Plan - Problems (Diagnosis) (1) Sepsis Current Visit: Yes Status: Acute Qualifiers: Sepsis type: sepsis due to unspecified organism Sepsis acute organ dysfunction status: without acute organ dysfunction Qualified Code(s): A41.9 - Sepsis, unspecified organism (2) UTI (urinary tract infection) Current Visit: Yes Status: Acute Qualifiers: Urinary tract infection type: acute cystitis Hematuria presence: with hematuria Qualified Code(s): N30.01 - Acute cystitis with hematuria (3) Coronary artery disease Current Visit: Yes Status: Chronic Qualifiers: Coronary Disease-Associated Artery/Lesion type: [place] artery [place] vs. transplanted heart: [place] heart Associated angina: without angina Qualified Code(s): I25.10 - Atherosclerotic heart disease of [place] coronary artery without angina pectoris (4) Hyperlipidemia Current Visit: Yes Status: Chronic Qualifiers: Hyperlipidemia type: unspecified Qualified Code(s): E78.5 - Hyperlipidemia, unspecified (5) Hypertension Current Visit: Yes Status: Chronic Qualifiers: Hypertension type: primary hypertension Qualified Code(s): I10 - Essential (primary) hypertension (6) Type 2 diabetes mellitus Current Visit: Yes Status: Chronic Qualifiers: Diabetes mellitus laborer marine terminal insulin use: without assisted use Diabetes mellitus complication status: with hyperglycemia Qualified Code(s): E11.65 - Type 2 diabetes mellitus with hyperglycemia - Plan Plan: 1. IV fluids 2. IV antibiotics 3. Continue with cardiac meds 4. Outpatient urology consultation 5. Awaiting culture results 6. Strict blood pressure and blood sugar control 7. Gi DVT prophylaxis Discharge Plan: Home Plan to discharge in: Greater than 2 days - Advance Directives Does patient have a Living Will: No Does patient have a Durable POA for Healthcare: No - Code Status/Comfort Care Code Status: Full Code Physician Review: Patient Assessed, Agree with Above Assessment and Plan Critical Care: No Time Spent Managing PTS Care (In Minutes): 35
--- NOTE | 2022-05-17 00:18 | P.PN ---
Date of Service: 05/15/22 Subjective Patient continues doing well. Urine cultures are still pending. Continue with antibiotic therapy. Blood cultures pending as well. P Review of Systems 10-point ROS is otherwise unremarkable Physical Examination - Vital Signs reviewed - Physical Exam General: Alert, In no apparent distress, Oriented x3 Respiratory: Clear to auscultation bilaterally, Normal air movement Cardiovascular: Regular rate/rhythm, Normal S1 S2, Systolic murmur Gastrointestinal: Normal bowel sounds, Soft and benign, Non-distended, No tenderness Musculoskeletal: No clubbing, No swelling, No tenderness Neurological: Sensation intact, Cranial nerves 3-12 intact Assessment & Plan - Problems (Diagnosis) (1) Sepsis Current Visit: Yes Status: Acute Qualifiers: Sepsis type: sepsis due to unspecified organism Sepsis acute organ dysfunction status: without acute organ dysfunction Qualified Code(s): A41.9 - Sepsis, unspecified organism (2) UTI (urinary tract infection) Current Visit: Yes Status: Acute Qualifiers: Urinary tract infection type: acute cystitis Hematuria presence: with hematuria Qualified Code(s): N30.01 - Acute cystitis with hematuria (3) Coronary artery disease Current Visit: Yes Status: Chronic Qualifiers: Coronary Disease-Associated Artery/Lesion type: [place] artery [place] vs. transplanted heart: [place] heart Associated angina: without angina Qualified Code(s): I25.10 - Atherosclerotic heart disease of [place] coronary artery without angina pectoris (4) Hyperlipidemia Current Visit: Yes Status: Chronic Qualifiers: Hyperlipidemia type: unspecified Qualified Code(s): E78.5 - Hyperlipidemia, unspecified (5) Hypertension Current Visit: Yes Status: Chronic Qualifiers: Hypertension type: primary hypertension Qualified Code(s): I10 - Essential (primary) hypertension (6) Type 2 diabetes mellitus Current Visit: Yes Status: Chronic Qualifiers: Diabetes mellitus scheduling assistant insulin use: without shelter use Diabetes mellitus complication status: with hyperglycemia Qualified Code(s): E11.65 - Type 2 diabetes mellitus with hyperglycemia - Plan Continue with POC as mentned below: 1. IV fluids 2. IV antibiotics 3. Continue with cardiac meds 4. Outpatient urology consultation 5. Awaiting culture results 6. Strict blood pressure and blood sugar control 7. Gi DVT prophylaxis Discharge Plan: Home Plan to discharge in: Greater than 2 days
--- NOTE | 2022-05-17 00:22 | P.PN ---
Date of Service: 05/16/22 Subjective Patient went into atrial fib w/ RVR; cardiology consulted. Urine & blood cultures are positive for ESBL. Continue with antibiotic therapy. Review of Systems 10-point ROS is otherwise unremarkable Physical Examination - Vital Signs reviewed - Physical Exam General: Alert, In no apparent distress, Oriented x3 Respiratory: Clear to auscultation bilaterally, Normal air movement Cardiovascular: Regular rate/rhythm, Normal S1 S2, Systolic murmur Gastrointestinal: Normal bowel sounds, Soft and benign, Non-distended, No tenderness Musculoskeletal: No clubbing, No swelling, No tenderness Neurological: Sensation intact, Cranial nerves 3-12 intact Assessment & Plan - Problems (Diagnosis) (1) Sepsis with ESBL E. coli Current Visit: Yes Status: Acute Qualifiers: Sepsis type: sepsis due to unspecified organism Sepsis acute organ dysfunction status: without acute organ dysfunction Qualified Code(s): A41.9 - Sepsis, unspecified organism (2) UTI (urinary tract infection) with ESBL E. coli Current Visit: Yes Status: Acute Qualifiers: Urinary tract infection type: acute cystitis Hematuria presence: with hematuria Qualified Code(s): N30.01 - Acute cystitis with hematuria (3) Coronary artery disease Current Visit: Yes Status: Chronic Qualifiers: Coronary Disease-Associated Artery/Lesion type: [place] artery [place] vs. transplanted heart: [place] heart Associated angina: without angina Qualified Code(s): I25.10 - Atherosclerotic heart disease of [place] coronary artery without angina pectoris (4) Hyperlipidemia Current Visit: Yes Status: Chronic Qualifiers: Hyperlipidemia type: unspecified Qualified Code(s): E78.5 - Hyperlipidemia, unspecified (5) Hypertension Current Visit: Yes Status: Chronic Qualifiers: Hypertension type: primary hypertension Qualified Code(s): I10 - Essential (primary) hypertension (6) Type 2 diabetes mellitus Current Visit: Yes Status: Chronic Qualifiers: Diabetes mellitus marine oil terminal 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 IV fluids 2. IV antibiotics; arrange for outpt Invanz 3. Continue with cardiac meds 4. Outpatient urology consultation 5. Rate control; hold anticoagulation as patient and daughter states that patient bleeds and they have not figured out why; only takes aspirin; 6. Strict blood pressure and blood sugar control 7. Cardiology consult; check addiitonal labs in AM 8. Gi DVT prophylaxis
[2022-05-17] MEDS: DIGOXIN 0.25 MG/ML AMP IV SCH (01:31)
[2022-05-17] MEDS: NA CHLORIDE 0.9% 1,000 ML IV SCH ×3 (01:31→22:36)
[2022-05-17] MEDS: METOPROLOL XL 50 MG TAB PO SCH (05:09)
[2022-05-17 06:28] LABS: Absolute Lymphocytes (CBC) 1.2 K/uL (0.7-4.9); Lymphocytes % 30.1 % (15.3-44.8); MCV 86.5 fL (80-100); MPV 8.4 fL (7.6-11.3); RBC Red Blood Cell Count 4.16 M/uL (3.86-4.86)
[2022-05-17 06:56] LABS: Albumin 2.7 g/dL (3.4-5.0); Bilirubin Total 0.3 mg/dL (0.2-1.0); Potassium 3.9 mmol/L (3.5-5.1); Protein, Total 6.8 g/dL (6.4-8.2); Thyroid Stimulating Hormone 1.62 uIU/mL (0.358-3.740); Troponin High Sensitivity 10.2 pg/mL (<58.9)
[2022-05-17] MEDS: INSULIN -REGULAR HUMAN 50 UNIT/0.5 ML ML SQ SCH ×4 (07:30→22:47)
[2022-05-17] MEDS: CEFTRIAXONE 1,000 MG in NA CHLORIDE 0.9% 50 ML IVPB SCH (07:42)
[2022-05-17] MEDS ORDERED: MUPIROCIN 2% OINT 22GM TUBE TOP ONE (09:47)
[2022-05-17] MEDS: Meropenem 1,000 MG in NA CHLORIDE 0.9% 100 ML IV SCH ×2 (09:48→17:38)
[2022-05-17] MEDS: MUPIROCIN 2% OINT 22GM TUBE TOP SCH ×2 (09:48→22:37)
[2022-05-17] MEDS: ENOXAPARIN 30 MG/0.3 ML SQ SCH (17:38)
[2022-05-18] MEDS: Meropenem 1,000 MG in NA CHLORIDE 0.9% 100 ML IV SCH ×3 (00:19→17:00)
--- NOTE | 2022-05-18 06:07 | P.PN ---
Date of Service: 05/17/22 Subjective Patient doing really well today. She feels much better. Will get stress test and cardiology consultation in the morning. Patient wants to be discharged tomorrow as she has an EGD scheduled. Waiting for antibiotic arrangements. PICC line is placed. She was supposed to have cardiac clearance for the EGD(outpt). In light of her current cardiac situations will get stress test and cardiology consultation and will see what they recommend. 05/16 Patient went into atrial fib w/ RVR; cardiology consulted. Urine & blood cultures are positive for ESBL. Continue with antibiotic therapy. Review of Systems 10-point ROS is otherwise unremarkable Physical Examination - Vital Signs reviewed - Physical Exam General: Alert, In no apparent distress, Oriented x3 Respiratory: Clear to auscultation bilaterally, Normal air movement Cardiovascular: Regular rate/rhythm, Normal S1 S2, Systolic murmur Gastrointestinal: Normal bowel sounds, Soft and benign, Non-distended, No tenderness Musculoskeletal: No clubbing, No swelling, No tenderness Neurological: Sensation intact, Cranial nerves 3-12 intact Assessment & Plan - Problems (Diagnosis) (1) Sepsis with ESBL E. coli Current Visit: Yes Status: Acute Qualifiers: Sepsis type: sepsis due to unspecified organism Sepsis acute organ dysfu nction status: without acute organ dysfunction Qualified Code(s): A41.9 - Sepsis, unspecified organism (2) UTI (urinary tract infection) with ESBL E. coli Current Visit: Yes Status: Acute Qualifiers: Urinary tract infection type: acute cystitis Hematuria presence: with hematuria Qualified Code(s): N30.01 - Acute cystitis with hematuria (3) Coronary artery disease Current Visit: Yes Status: Chronic Qualifiers: Coronary Disease-Associated Artery/Lesion type: [place] artery [place] vs. transplanted heart: [place] heart Associated angina: without angina Qualified Code(s): I25.10 - Atherosclerotic heart disease of [place] coronary artery without angina pectoris (4) Hyperlipidemia Current Visit: Yes Status: Chronic Qualifiers: Hyperlipidemia type: unspecified Qualified Code(s): E78.5 - Hyperlipidemia, unspecified (5) Hypertension Current Visit: Yes Status: Chronic Qualifiers: Hypertension type: primary hypertension Qualified Code(s): I10 - Essential (primary) hypertension (6) Type 2 diabetes mellitus Current Visit: Yes Status: Chronic Qualifiers: Diabetes mellitus long term care phlebotomist insulin use: without long term care phlebotomist use Diabetes mellitus complication status: with hyperglycemia Qualified Code(s): E11.65 - Type 2 diabetes mellitus with hyperglycemia (7) Atrial fibrillation with RVR Current Visit: Yes Status: Acute - Plan Continue with POC as mentned below: 1. IV fluids 2. IV antibiotics; arrange for outpt Invanz 3. Continue with cardiac meds; on metoprolol; hold oral anticoagulation until EGD completed-history of GI bleeding unknown source 4. Outpatient urology consultation for frequent UTI 5. Rate control; hold anticoagulation as patient and daughter states that patient bleeds and they have not figured out why; only takes aspirin; 6. Strict blood pressure and blood sugar control 7. Cardiology consult; check addiitonal labs in AM 8. Gi DVT prophylaxis
[2022-05-18 06:58] LABS: Absolute Lymphocytes (CBC) 1.4 K/uL (0.7-4.9); Lymphocytes % 27.7 % (15.3-44.8); MCV 86.1 fL (80-100); MPV 8.1 fL (7.6-11.3); RBC Red Blood Cell Count 3.95 M/uL (3.86-4.86)
[2022-05-18 07:12] LABS: Potassium 4.4 mmol/L (3.5-5.1)
[2022-05-18] MEDS: NA CHLORIDE 0.9% 1,000 ML IV SCH (08:19)
[2022-05-18] MEDS: INSULIN -REGULAR HUMAN 50 UNIT/0.5 ML ML SQ SCH ×4 (08:22→20:57)
[2022-05-18] MEDS: MUPIROCIN 2% OINT 22GM TUBE TOP SCH ×2 (08:22→20:56)
[2022-05-18] MEDS: METOPROLOL XL 50 MG TAB PO SCH (08:22)
--- NOTE | 2022-05-18 08:30 | P.CNS ---
Date of Consult: 05/18/22 Primary Care Provider: Marcus Chief Complaint: UTI/Sepsis History of Present Illness: Patient is a 76-year-old female with past medical history of diabetes mellitus type 2insulin-dependent, hypertension, hyperlipidemia, GERD, and CAD who was to the emergency department from PCP with fever and abnormal UA. She does complain of some suprapubic tenderness and mild right sided CVA tenderness. She was noted to be tachycardic, tachypneic, and febrile upon arrival. Urine with positive nitrite, 1+ LE, > 50 WBC, 1+ blood, 2+ protein. Other labs significant for sodium 133, BUN 23, glucose 256. CT abdomen pelvis suggestive of right sided pyelonephritis with some gas related to recent cystoscopy. She was started on rocephin the emergency department. Patient has UC and BC x2 positive with ESBL E. Coli. ID has been consulted for further IV antibiotics recommendations and management for ESBL Bacteremia and UTI Allergies No Known Drug Allergies Allergy (Verified 11/21/21 09:36) Unknown Home Medications: Metformin ER [Glucophage ER*] 1,000 mg PO BID 03/30/14 Amlodipine [Norvasc*] 5 mg PO DAILY 11/30/16 Metoprolol Succinate [Toprol Xl*] 100 mg PO DAILY 11/30/16 Celecoxib 1 cap PO BID 03/30/21 Ferrous Sulfate 1 tab PO DAILY 03/30/21 Lisinopril [Zestril] 20 mg PO DAILY 03/30/21 Pantoprazole [Protonix Tab*] 20 mg PO DAILY 03/30/21 Vitamin D [Drisdol*] 1,000 unit PO DAILY 03/30/21 Aspirin [Aspirin EC 81 MG] 81 mg PO DAILY #30 tab 04/16/22 Alfuzosin HCl 1 tab PO BEDTIME 05/14/22 Atorvastatin Calcium [Lipitor*] 1 tab PO BEDTIME 05/14/22 Docusate [Colace Cap*] 1 tab PO DAILY 05/14/22 Insulin Glargine,Hum.rec.anlog [Basaglar Kwikpen U-100] 35 units SQ BEDTIME 05/14/22 Nitroglycerin [Nitrostat*] 1 tab SL PRN PRN 05/14/22 Ondansetron [Zofran (Odt)*] 1 tab PO Q6HP PRN 05/14/22 estradioL [Estradiol] 1 dose VAG DAILY 05/14/22 - Past Medical/Surgical History Diabetic: Yes -: HTN -: IDDM -: ME -: CAD -: GERD -: Hyperlipidemia -: Kidney stone -: thyroidectomy -: Stent in LAD (03/2014) -: Cholecystectomy -: kidney stones removed Psychosocial/ Personal History: Patient lives at home with her daughter. - Family History Father Medical History: Heart disease, Hypertension, Diabetes, Stroke Mother Medical History: Heart disease, Diabetes Sister Medical History: Hypertension, Diabetes, Cancer Notes: breast cancer Brother Medical History: Heart disease, Stroke - Social History Alcohol use: No CD- Drugs: No Caffeine use: Yes Place of Residence: Home Review of Systems 10-point ROS is otherwise unremarkable Genitourinary: As per HPI Physical Examination Temp Pulse Resp BP Pulse Ox 98.2 F 82 16 133/79 97 05/18/22 08:00 05/18/22 08:22 05/18/22 08:00 05/18/22 08:22 05/18/22 08:00 General: Alert, In no apparent distress, Oriented x3 Respiratory: Clear to auscultation bilaterally, Normal air movement Cardiovascular: No edema, Normal S1 S2 Gastrointestinal: Normal bowel sounds Musculoskeletal: No swelling, No tenderness Integumentary: No rashes, No breakdown Neurological: Normal speech, Normal affect active medications Acetaminophen (Acetaminophen 500 Mg Tab) 1,000 mg PO Q6H PRN PRN Reason: Pain scale 2-4 (Mild) Last Admin: 05/15/22 03:55 Dose: 1,000 mg Albuterol Sulfate (Albuterol 2.5 Mg/3 Ml Neb Anna) 2.5 mg NEB [id number] PRN PRN Reason: SHORTNESS OF BREATH Enoxaparin Sodium (Enoxaparin 30 Mg/0.3 Ml) 30 mg SQ DAILY 5 PM [facility] Last Admin: 05/17/22 17:38 Dose: 30 mg Sodium Chloride (Ns 1000 Ml Ivbag) 1,000 mls @ 100 mls/hr IV .Q10H ADRIAN Last Admin: 05/18/22 08:19 Dose: 1,000 mls Meropenem 1,000 mg/ Sodium (Chloride) 100 mls @ 200 mls/hr IV Q8HR ADRIAN Last Admin: 05/18/22 08:23 Dose: 100 mls Insulin Human Regular (Insulin -Regular Human 50 Unit/0.5 Ml Ml) 0 unit SQ ACHS [facility]; Protocol Last Admin: 05/18/22 08:22 Dose: 5 unit Metoprolol Succinate (Metoprolol Xl 50 Mg Tab) 50 mg PO [id number] [facility] Last Admin: 05/18/22 08:22 Dose: 50 mg Mupirocin (Mupirocin 2% Oint 22gm Tube) 1 appl TOP BID [facility] Stop: 05/21/22 21:01 Last Admin: 05/18/22 08:22 Dose: 1 appl Ondansetron HCl (Ondansetron 4 Mg/2 Ml Vial) 4 mg IV Q6HP PRN PRN Reason: NAUSEA / VOMITING Sodium Chloride (Flush Normal Saline 10 Ml) 10 ml IV BID [facility] Last Admin: 05/17/22 22:37 Dose: 10 ml Tramadol HCl (Tramadol Hcl 50 Mg Tab) 50 mg PO TID PRN PRN Reason: Pain scale 5-7 (Moderate) Last Admin: 05/16/22 20:35 Dose: 50 mg Microbiology 05/13/22 18:07 Blood - Blood Aerobic Blood Culture - Preliminary Gram Neg Francisco Escherichia Coli Esbl 05/13/22 18:07 Blood - Blood Anaerobic Blood Culture - Preliminary 05/13/22 18:07 Blood - Blood Gram Stain - Final 05/13/22 17:50 Blood - Blood Aerobic Blood Culture - Final Gram Neg Francisco Escherichia Coli Esbl 05/13/22 17:50 Blood - Blood Blood Culture Gram Stain - Final 05/13/22 17:50 Blood - Blood Anaerobic Blood Culture - Final Escherichia Coli Esbl 05/13/22 17:50 Blood - Blood Gram Stain - Final Imagings Data: CT - Abdomen Pelvis W Contrast - 05/13/2022 FINDINGS: No suspicious findings in the lung bases. The liver, spleen, and pancreas show no suspicious findings. No suspicious adrenal lesions. Status post cholecystectomy. 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 No evidence of intra or extrahepatic biliary ductal dilation. Mild dilation along the Right lower renal calyx with few gas locules within, and urothelial enhancement that extends along the middle calyx and right renal pelvis. Focus of parenchymal hypoattenuation posteriorly at the mid to lower pole on the right. Mild inflammatory changes along the right lower renal pole with fluid tracking along the right paracolic gutter. No suspicious masses. Cortical thinning bilaterally most notably at the lower poles again noted. Small radiodense calculi at the right lower pole, layering dependently, not significantly changed. No dilated bowel loops or bowel wall thickening. No free air, free fluid or inflammatory stranding. No hernia, mass or bulky lymphadenopa thy. The urinary bladder is is suboptimally distended, however demonstrating mild diffuse urothelial enhancement and some wall thickening along the dome. No suspicious bony findings. IMPRESSION: Mild dilation along the right lower renal calyx with few gas locules within, and urothelial enhancement that extends along the middle calyx and right renal pelvis. Mild inflammatory changes along the right lower renal pole with fluid tracking along the right paracolic gutter, with focus of parenchymal hypoattenuation. Mild urothelial enhancement along the bladder as well. Given related history of recent cystoscopy, the findings could be reactive or related to pyelonephritis with an ascending infection. The gas locules are probably related to recent intervention rather than to a gas- forming organism Layering tiny calculi along the right lower renal calyx. Other stable incidental findings as above - Problems (1) Bacteremia Plan: Cultures: - 05/13 BC x2 (2/4): ESBL E. Coli, susceptible to Bactrim, Zosyn and Meropenem - 05/13 UC: ESBL E. Coli, susceptible to Bactrim, Zosyn, Nitrofurantoin and Meropenem Antibiotics: - Had Ceftriaxone on 05/15 - Current on IV Meropenem Recommendations: - Continue IV Meropenem for total of 14 days - Repeat UA on 05/22 (5 days after IV Meropenem) (2) UTI (urinary tract infection) Plan: Cultures: - 05/13 BC x2 (2/4): ESBL E. Coli, susceptible to Bactrim, Zosyn and Meropenem - 05/13 UC: ESBL E. Coli, susceptible to Bactrim, Zosyn, Nitrofurantoin and Meropenem Antibiotics: - Had Ceftriaxone on 05/15 - Current on IV Meropenem Recommendations: - Continue IV Meropenem - Repeat UA on 05/22 (5 days after IV Meropenem) Urinary tract infection type: acute cystitis Hematuria presence: with hematuria Conclusions/Impression: - Sepsis: Most likely due to UTI and bacteremia - Bacteremia: Continue IV Meropenem for total of 14 days and repeat UA on 05/22 (5 days after IV Meropenem) - UTI (urinary tract infection): Continue IV Meropenem - Pyelonephritis, right - Moderate protein calorie malnutrition - Coronary artery disease - Hyperlipidemia - Hypertension - Type 2 diabetes mellitus - ME - GERD - Kidney stone - Thyroidectomy - Stent in LAD (03/2014) - Cholecystectomy - kidney stones removed ID will monitor the patient closely for signs of infection with fever and WBC trends Case has been discussed with Dr. Flores N Thank you Dr. Holman for consultation
--- NOTE | 2022-05-18 09:51 | RAD REPORT ---
EXAM DESCRIPTION: XR Chest, 1 View CLINICAL HISTORY: The patient is 76 years old and is Female; S/P PICC insertion TECHNIQUE: Frontal view of the chest. COMPARISON: No relevant prior studies available. FINDINGS: LUNGS: Unremarkable. No consolidation. PLEURAL SPACE: Unremarkable. No pneumothorax. HEART: Unremarkable. No cardiomegaly. MEDIASTINUM: Unremarkable. BONES/JOINTS: Multilevel degenerative change of the spine is present. TUBES, LINES AND DEVICES: A right upper extremity PICC is present with the tip at the SVC/RA toña ction. UPPER ABDOMEN: Unremarkable as visualized. IMPRESSION: A right upper extremity PICC is present with the tip at the SVC/RA junction. Electronically signed by: Anastacia Silverman MD 05/17/2022 4:35 AM CDT Due to temporary technical issues with the PACS/Fluency reporting system, reports are being signed by the in house radiologists without review as a courtesy to insure prompt reporting. The interpreting radiologist is fully responsible for the content of the report.
--- NOTE | 2022-05-18 13:07 | EKG ---
Test Date: 2022-05-16 Test Time: 15:11:58 Bleach Packer: MARY MEASUREMENT RESULTS: Intervals: Rate: 114 CA: QRSD: 68 QT: 286 QTc: 394 [place]: P: CA: QRS: 69 T: 69 INTERPRETIVE STATEMENTS: Atrial fibrillation with rapid ventricular response Abnormal ECG Compared to ECG 05/14/2022 12:26:49 Sinus tachycardia no longer present ST (T wave) deviation no longer present Electronically Signed On 05-18-22 13:04:09 CDT by Delmer Palmer
--- NOTE | 2022-05-18 14:36 | P.PN ---
Subjective Date of Service: 05/18/22 Primary Care Provider: Marcus Chief Complaint: UTI/Sepsis No acute events overnight. She had a run of atrial fibrillation with rapid ventricular response yesterday. She denies any symptoms at this time. She denies any chest pain, palpitations, or shortness of breath. She states that her abdominal pain and dysuria have completely resolved. Review of Systems 10-point ROS is otherwise unremarkable Physical Examination - Vital Signs Temperature: 98.3 F Blood Pressure: 143/64 Pulse: 86 Respirations: 16 Pulse Ox (%): 98 - Physical Exam General: Alert, In no apparent distress, Oriented x3 HEENT: Atraumatic, Mucous membr. moist/pink, EOMI, Sclerae nonicteric Neck: JVD not distended Respiratory: Clear to auscultation bilaterally, Normal air movement Cardiovascular: No edema, Regular rate/rhythm, Normal S1 S2, No gallops, No rubs, No murmurs Gastrointestinal: Normal bowel sounds, Soft and benign, Non-distended, No tenderness, No rebound, No guarding Musculoskeletal: No clubbing Integumentary: No rashes Neurological: Normal speech, Normal affect - Studies Medications List Reviewed: Yes Assessment And Plan - Plan # Sepsis likely secondary to ESBL Escherichia Coli Pyelonephritis with Bacteremia # Microscopic Hematuria She met sepsis criteria based on temperature > 100.9 F, HR > 90 bpm, RR > 20 breaths/min, and the suspected source is urinary with bacteremia. - Infectious Diseases consulted - recommendations appreciated - Recommended meropenem x 14 days (end date: 05/31/2022) - Sepsis order set was initiated - Lactate trend: 1.8 -> 0.9 - Blood cultures drawn = ESBL E. Coli - Broad spectrum antibiotics started: Meropenem - In regards to fluids: - 30 mL/kg of IV fluids was not administered given SBP > 90, MAP > 65, lactic acid < 4 - CT abdomen/pelvis = "mild dilation along the right lower renal calyx with few gas locules within, and urothelial enhancement that extends along the middle calyx and right renal pelvis. Mild inflammatory changes along the right lower renal pole with fluid tracking along the right paracolic gutter, with focus of parenchymal hypoattenuation. Mild urothelial enhancement along the bladder as well. Given related history of recent cystoscopy, the findings could be reactive or related to pyelonephritis with an ascending infection. The gas locules are probably related to recent intervention rather than to a gas-forming organism. Layering tiny calculi along the right lower renal calyx. Other stable incidental findings as above." # Paroxysmal Atrial Fibrillation with Rapid Ventricular Response Her [id number] = 5 (HTN=1, DM=1, CAD=1, Age 65-74=1, Sex=1), which warrants anticoagulation. However, it is on hold given anemia and active Gastroenterology evaluation for possible occult GI bleeding - Consulted Cardiology - recommendations appreciated - Continue sotalol - Nuclear stress test ordered for this morning # Hyperglycemia in Type II Diabetes Mellitus - Correction scale insulin # Coronary Artery Disease complicated by prior Myocardial Infarction # Hypertension # Hyperlipidemia - Reconcile home medications once verified # Elevated LFTs - Repeat LFTs and obtain liver ultrasound if still elevated # Moderate Protein Calorie Malnutrition - Appreciate home agent nahed Holman M.D.
[2022-05-18] MEDS: FERROUS SULFATE 325 MG TAB PO SCH (15:15)
[2022-05-18] MEDS: ENOXAPARIN 30 MG/0.3 ML SQ SCH (18:06)
[2022-05-18] MEDS: SOTALOL HCL 80 MG TAB PO SCH (18:06)
--- NOTE | 2022-05-18 18:31 | CON ---
Date of Consultation: 05/18/2022 Reason For Consultation: Atrial fibrillation with rapid ventricular response. History Of Present Illness: This is a 76-year-old female with past medical history of diabetes, hype rtension, coronary artery disease, acid reflux, dyslipidemia, stent in the LAD long time ago, present ed to the emergency room with fever, abnormal urinalysis, found to have sepsis due to significant uri nary tract infection and apparently during the evaluation, the patient was in atrial fibrillation wit h rapid ventricular response and the patient has history of GI bleed, hence no anticoagulation was st arted. The patient was started on sotalol and when I evaluated the patient, she was in sinus rhythm. Feels well. No chest pain. Past Medical History: As outlined above in the HPI. Medications: Refer to reconciliation sheet for detailed list. Allergies: NO KNOWN DRUG ALLERGIES. Family History: No premature coronary artery disease or cancer. Social History: Does not smoke or drink. Does not use any drugs. Review of Systems: All systems reviewed and they were negative except what mentioned in HPI. Physical Examination: Vital Signs: Reviewed. Head and Neck: Pupils are equal, reactive to light. Intact eye movements. No JVD. No cervical lym phadenopathy. Neck is supple. Thyroid is not enlarged. Lungs: Clear to auscultation bilaterally. No rhonchi, wheezing, or crackles. No accessory muscle u se. Heart: Regular rate and rhythm. No extra sounds. Abdomen: Soft, nontender. Bowel sounds positive. No organomegaly. No masses or hernia. No rigidi ty or rebound. Extremities: There is no clubbing or cyanosis. Intact pulses. Skin: No rash. Neurologic: Alert, awake, oriented x3. No acute focal deficits appreciated. Investigations: BUN 18, creatinine 0.69, and hemoglobin is 11.1. Assessment And Recommendations: 1.Atrial fibrillation with rapid ventricular response. This is controlled now. Continue sotalol 80 mg twice a day. Start baby aspirin 81 mg if feasible. The patient had GI bleed, so after GI evalua tion there is no active bleeding, then, I will recommend full anticoagulation with Eliquis or Xarelto . 2.History of coronary artery disease. No chest pain. Troponin has been negative. Continue to [facility]. 3.Hypertension. Resume home medications, adjust further if needed. SR/MODL Voice ID: [id number] Report ID: [id number]
[2022-05-19] MEDS: Meropenem 1,000 MG in NA CHLORIDE 0.9% 100 ML IV SCH ×3 (00:24→16:30)
[2022-05-19 05:11] LABS: Albumin 2.8 g/dL (3.4-5.0); Bilirubin Total 0.2 mg/dL (0.2-1.0); Magnesium 1.7 mg/dL (1.6-2.4); Phosphorus 2.7 mg/dL (2.5-4.9); Potassium 4.3 mmol/L (3.5-5.1); Protein, Total 6.7 g/dL (6.4-8.2)
[2022-05-19] MEDS ORDERED: REGADENOSON 0.4 MG/5 ML SYR IV ONE (07:53)
[2022-05-19] MEDS: INSULIN -REGULAR HUMAN 50 UNIT/0.5 ML ML SQ SCH ×4 (07:59→20:48)
[2022-05-19] MEDS: FERROUS SULFATE 325 MG TAB PO SCH (07:59)
[2022-05-19] MEDS: SOTALOL HCL 80 MG TAB PO SCH ×2 (08:05→18:23)
[2022-05-19] MEDS: MUPIROCIN 2% OINT 22GM TUBE TOP SCH ×2 (08:05→20:47)
[2022-05-19] MEDS ORDERED: MAGNESIUM SULFATE 1 gm IVPB 1 GM/100 ML BAG IV ONE (09:00)
--- NOTE | 2022-05-19 12:06 | P.PN ---
Subjective Date of Service: 05/19/22 Primary Care Provider: Marcus Chief Complaint: UTI/Sepsis Patient lying in bed very pleasant stated feeling better with no other issue. No cardiopulmonary distress seem upon examination Physical Examination - Vital Signs Temperature: 97.9 F Blood Pressure: 150/66 Pulse: 58 Respirations: 16 Pulse Ox (%): 98 - Physical Exam General: Alert, In no apparent distress, Oriented x3 Respiratory: Clear to auscultation bilaterally, Normal air movement Cardiovascular: No edema, Normal S1 S2 Gastrointestinal: Normal bowel sounds Musculoskeletal: No swelling, No tenderness Integumentary: No rashes, No breakdown Neurological: Normal speech, Normal tone, Sensation intact, Normal affect - Studies active medications Acetaminophen (Acetaminophen 500 Mg Tab) 1,000 mg PO Q6H PRN PRN Reason: Pain scale 2-4 (Mild) Last Admin: 05/15/22 03:55 Dose: 1,000 mg Albuterol Sulfate (Albuterol 2.5 Mg/3 Ml Neb Anna) 2.5 mg NEB [id number] PRN PRN Reason: SHORTNESS OF BREATH Enoxaparin Sodium (Enoxaparin 30 Mg/0.3 Ml) 30 mg SQ DAILY 5 PM [facility] Last Admin: 05/18/22 18:06 Dose: 30 mg Ferrous Sulfate (Ferrous Sulfate 325 Mg Tab) 325 mg PO DAILY [facility] Last Admin: 05/19/22 07:59 Dose: 325 mg Meropenem 1,000 mg/ Sodium (Chloride) 100 mls @ 200 mls/hr IV Q8HR [facility] Last Admin: 05/19/22 07:59 Dose: 100 mls Insulin Human Regular (Insulin -Regular Human 50 Unit/0.5 Ml Ml) [address] [facility]; Protocol Last Admin: 05/19/22 11:25 Dose: 9 unit Mupirocin (Mupirocin 2% Oint 22gm Tube) 1 appl TOP BID [facility] Stop: 05/21/22 21:01 Last Admin: 05/19/22 08:05 Dose: 1 appl Ondansetron HCl (Ondansetron 4 Mg/2 Ml Vial) 4 mg IV Q6HP PRN PRN Reason: NAUSEA / VOMITING Sodium Chloride (Flush Normal Saline 10 Ml) 10 ml IV BID [facility] Last Admin: 05/19/22 08:05 Dose: 10 ml Sotalol HCl (Sotalol Hcl 80 Mg Tab) 80 mg PO BID 6AM 6PM ADRIAN Last Admin: 05/19/22 08:05 Dose: 80 mg Tramadol HCl (Tramadol Hcl 50 Mg Tab) 50 mg PO TID PRN PRN Reason: Pain scale 5-7 (Moderate) Last Admin: 05/16/22 20:35 Dose: 50 mg Microbiology Data (last 24 hrs): Microbiology 05/13/22 18:07 Blood - Blood Aerobic Blood Culture - Preliminary Gram Neg Francisco Escherichia Coli Esbl 05/13/22 18:07 Blood - Blood Anaerobic Blood Culture - Preliminary 05/13/22 18:07 Blood - Blood Gram Stain - Final 05/13/22 17:50 Blood - Blood Aerobic Blood Culture - Final Gram Neg Francisco Escherichia Coli Esbl 05/13/22 17:50 Blood - Blood Blood Culture Gram Stain - Final 05/13/22 17:50 Blood - Blood Anaerobic Blood Culture - Final Escherichia Coli Esbl 05/13/22 17:50 Blood - Blood Gram Stain - Final Medications List Reviewed: Yes Assessment And Plan - Current Problems (Diagnosis) (1) Bacteremia Plan: Cultures: - 05/13 BC x2 (2/4): ESBL E. Coli, susceptible to Bactrim, Zosyn and Meropenem - 05/13 UC: ESBL E. Coli, susceptible to Bactrim, Zosyn, Nitrofurantoin and Meropenem Antibiotics: - Had Ceftriaxone on 05/15 - Current on IV Meropenem Recommendations: - Continue IV Meropenem for total of 14 days - Repeat UA on 05/22 (5 days after IV Meropenem) (2) UTI (urinary tract infection) Plan: Cultures: - 05/13 BC x2 (2/4): ESBL E. Coli, susceptible to Bactrim, Zosyn and Meropenem - 05/13 UC: ESBL E. Coli, susceptible to Bactrim, Zosyn, Nitrofurantoin and Meropenem Antibiotics: - Had Ceftriaxone on 05/15 - Current on IV Meropenem Recommendations: - Continue IV Meropenem - Repeat UA on 05/22 (5 days after IV Meropenem) Qualifiers: Urinary tract infection type: acute cystitis Hematuria presence: with hematuria Qualified Code(s): N30.01 - Acute cystitis with hematuria Physician Review: Patient Assessed, Agree with Above Assessment and Plan
[2022-05-19] MEDS: ENOXAPARIN 30 MG/0.3 ML SQ SCH (16:30)
--- NOTE | 2022-05-19 18:09 | P.PN ---
Subjective Date of Service: 05/19/22 Primary Care Provider: Marcus Chief Complaint: UTI/Sepsis No acute events overnight. She remains primarily in normal sinus rhythm on the sotalol. She denies any symptoms at this time. Will monitor her in the hospital to evaluate for QTc prolongation with sotalol initiation. NM cardiac stress test cancelled by Cardiology. She denies any chest pain, palpitations, or shortness of breath. Possible discharge tomorrow with Home Health if she remains in normal sinus rhythm. Review of Systems 10-point ROS is otherwise unremarkable Physical Examination - Vital Signs Temperature: 98.5 F Blood Pressure: 153/70 Pulse: 60 Respirations: 16 Pulse Ox (%): 98 - Studies Microbiology Data (last 24 hrs): 05/13/22 18:07 Blood - Blood Gram Stain - Final Medications List Reviewed: Yes Assessment And Plan - Plan - Physical Exam General: Alert, In no apparent distress, Oriented x3 HEENT: Atraumatic, Mucous membr. moist/pink, EOMI, Sclerae nonicteric Neck: JVD not distended Respiratory: Clear to auscultation bilaterally, Normal air movement Cardiovascular: No edema, Regular rate/rhythm, No murmurs Gastrointestinal: Normal bowel sounds, Soft, Non-distended, No tenderness Musculoskeletal: No clubbing Integumentary: No rashes Neurological: Normal speech, Normal affect # Sepsis likely secondary to ESBL Escherichia Coli Pyelonephritis with Bacteremia # Microscopic Hematuria She met sepsis criteria based on temperature > 100.9 F, HR > 90 bpm, RR > 20 breaths/min, and the suspected source is urinary with bacteremia. - Infectious Diseases consulted - recommendations appreciated - Recommended meropenem x 14 days (end date: 05/31/2022) - Sepsis order set was initiated - Lactate trend: 1.8 -> 0.9 - Blood cultures drawn = ESBL E. Coli - Broad spectrum antibiotics started: Meropenem - In regards to fluids: - 30 mL/kg of IV fluids was not administered given SBP > 90, MAP > 65, lactic acid < 4 - CT abdomen/pelvis = "mild dilation along the right lower renal calyx with few gas locules within, and urothelial enhancement that extends along the middle calyx and right renal pelvis. Mild inflammatory changes along the right lower renal pole with fluid tracking along the right paracolic gutter, with focus of parenchymal hypoattenuation. Mild urothelial enhancement along the bladder as well. Given related history of recent cystoscopy, the findings could be reactive or related to pyelonephritis with an ascending infection. The gas locules are probably related to recent intervention rather than to a gas-forming organism. Layering tiny calculi along the right lower renal calyx. Other stable incidental findings as above." # Paroxysmal Atrial Fibrillation with Rapid Ventricular Response Her [id number] = 5 (HTN=1, DM=1, CAD=1, Age 65-74=1, Sex=1), which warrants anticoagulation. However, it is on hold given anemia and active Gastroenterology evaluation for possible occult GI bleeding - Consulted Cardiology and spoke with Dr. Palmer - recommendations appreciated - Given that she is unable to safely take systemic anticoagulation, he plans for her to undergo evaluation for a left atrial appendage closure as an outpatient - Continue sotalol, repeat EKG after 3 doses to monitor for QTc prolongation # Hyperglycemia in Type II Diabetes Mellitus - Correction scale insulin # Coronary Artery Disease complicated by prior Myocardial Infarction # Hypertension # Hyperlipidemia - Reconcile home medications once verified # Elevated LFTs - Repeat LFTs within normal limits # Moderate Protein Calorie Malnutrition - Appreciate park interpretive ranger nahed Holman M.D.
[2022-05-19 20:34] LABS: Urine Bacteria <20 /HPF (<20); Urine Crystals Unidentified Few /HPF (None Seen)
[2022-05-19 20:36] LABS: Specific Gravity 1.016 (1.005-1.030); Urine Clarity Cloudy (Clear); Urine Color Yellow (Yellow)
[2022-05-19 20:37] LABS: Urine Bilirubin Negative (Negative); Urine Blood Negative (Negative); Urine Glucose 1+ (Negative); Urine Protein Negative (Negative); Urine Urobilinogen Normal (Normal)
--- NOTE | 2022-05-19 20:37 | PN ---
Date of Progress Note: 05/19/2022 Subjective: Seen by bedside. No complaints. Review of Systems: No chest pain, shortness of breath, orthopnea, cough. No nausea, vomiting, diarrhea. All other syst ems reviewed are negative. Physical Examination: Vital Signs: Reviewed. Head and Neck: Pupils are equal, reactive to light. Intact eye movements. No JVD. No cervical lym phadenopathy. Neck is supple. Thyroid is not enlarged. Lungs: Clear to auscultation bilaterally. No rhonchi, wheezing, or crackles. No accessory muscle u se. Heart: Regular rate and rhythm. No extra sounds. Abdomen: Soft, nontender. Bowel sounds positive. No organomegaly. No masses or hernia. No rigidi ty or rebound. Extremities: No edema, clubbing, cyanosis. Intact pulses. Skin: No rash. Neurologic: Alert, awake, oriented x3. No acute focal deficits appreciated. Investigations: Labs reviewed. Assessment/recommendations: 1.Atrial fibrillation, is in sinus. Continue sotalol and baby aspirin if feasible and we will plan for appendage closure as outpatient. 2.Hypertension. Blood pressure is borderline acceptable. Continue current treatment. SR/MODL Voice ID: [id number] Report ID: [id number]
[2022-05-19 20:38] LABS: Urine Ascorbic Acid Negative (Negative)
[2022-05-19 21:52] VITALS: O2SAT 94
[2022-05-20] MEDS: Meropenem 1,000 MG in NA CHLORIDE 0.9% 100 ML IV SCH ×2 (00:20→08:33)
[2022-05-20] MEDS: SOTALOL HCL 80 MG TAB PO SCH (05:04)
[2022-05-20 05:49] LABS: Magnesium 1.9 mg/dL (1.6-2.4); Potassium 4.3 mmol/L (3.5-5.1)
[2022-05-20 08:08] VITALS: BP 133/63; TEMP 98
[2022-05-20] MEDS: MUPIROCIN 2% OINT 22GM TUBE TOP SCH (08:32)
[2022-05-20] MEDS: INSULIN -REGULAR HUMAN 50 UNIT/0.5 ML ML SQ SCH (08:32)
[2022-05-20] MEDS: FERROUS SULFATE 325 MG TAB PO SCH (08:33)
--- NOTE | 2022-05-20 08:47 | P.DS ---
Admission Date: 05/13/22 Discharge Date: 05/20/22 Primary Care Provider: Marcus Disposition: DC HOME/HOME HEALTH CARE Discharge Condition: GOOD Reason for Admission: UTI/Sepsis Consultations: 1. Cardiology 2. Infectious Diseases Hospital Course: DIAGNOSES: # Sepsis likely secondary to ESBL Escherichia Coli Pyelonephritis with Bacter emia # Paroxysmal Atrial Fibrillation with Rapid Ventricular Response # Hyperglycemia in Type II Diabetes Mellitus # Coronary Artery Disease complicated by prior Myocardial Infarction # Moderate Protein Calorie Malnutrition # Hypertension # Hyperlipidemia # Microscopic Hematuria # Elevated LFTs - resolved HOSPITAL COURSE: Ms. Rena Reddy is a pleasant 76 year old female with a past medical history significant for atrial fibrillation, type II diabetes mellitus, coronary artery disease, hypertension, and hyperlipidemia who was admitted to the [facility] on 05/13/2022 for sepsis. She was admitted to the Medicine service. Upon further evaluation, she was found to have sepsis secondary to an ESBL Escherichia Coli urinary tract infection with bacteremia. Her CT abdomen/pelvis revealed, "mild dilation along the right lower renal calyx with few gas locules within, and urothelial enhancement that extends along the middle calyx and right renal pelvis. Mild inflammatory changes along the right lower renal pole with fluid tracking along the right paracolic gutter, with focus of parenchymal hypoattenuation. Mild urothelial enhancement along the bladder as well. Given related history of recent cystoscopy, the findings could be reactive or related to pyelonephritis with an ascending infection. The gas locules are probably related to recent intervention rather than to a gas-forming organism. Layering tiny calculi along the right lower renal calyx. Other stable incidental findings as above." Infectious Diseases was consulted and she was evaluated by Dr. Flores. He recommended 14 days of IV carbapenem (meropenem while hospitalized and ertapenem at discharge), with an end-date of 05/30/2022. He also recommended a repeat urinalysis on 05/22/2022. During her hospitalization, she developed atrial fibrillation with rapid ventricular response. Cardiology was consulted and she was evaluated by Dr. Palmer. He recommended starting sotalol. She was given 4 doses while hospitalized and her QTc interval was monitored. Systemic anticoagulation was not started given that she is being evaluated for an occult gastrointestinal bleed. She is scheduled for an esophagogastroduodenoscopy tomorrow. Per Dr. Palmer, he will evaluate her for a Watchman procedure as an outpatient. Dr. Palmer has cleared her for discharge with outpatient follow-up. Incidentally, she was noted to have microscopic hematuria on her urinalysis. She was counseled on this finding, and that although it may represent hematuria from her urinary tract infection, it can also be an early sign of urologic malignancy. She states that she has been following with Dr. Bertrand (Urology). She states that she will bring this topic up with him at her next appointment. I have updated her PCP (Dr. Velazquez) on her hospital course and plan. On 05/20/2022, she was seen on morning rounds and deemed medically stable for discharge. She was discharged with instructions to schedule follow-up appointments with her PCP (Dr. Velazquez), with Gastroenterology (Dr. Toney), with Cardiology (Dr. Palmer), and with Urology (Dr. Bertrand). She was provided a prescription for sotalol. Home Health was arranged for her to receive ertapenem. She was given the opportunity to ask questions and reported no further questions. Furthermore, all questions were answered to the best of my ability. A copy of this discharge summary will be sent to the above providers to facilitate continuity of care. Today, I personally spent 40 minutes on her case, of which greater than 50% of the time was spent in patient education, counseling, and coordination of care as described above. - Physical Exam General: Alert, In no apparent distress, Oriented x3 HEENT: Atraumatic, Mucous membr. moist/pink, Sclerae nonicteric Neck: JVD not distended Respiratory: Clear to auscultation bilaterally, Normal air movement Cardiovascular: No edema, Regular rate/rhythm, No murmurs Gastrointestinal: Normal bowel sounds, Soft, Non-distended, No tenderness Musculoskeletal: No clubbing Integumentary: No rashes Neurological: Normal speech, Normal affect Vital Signs/Physical Exam: Temp Pulse Resp BP Pulse Ox 98 F 58 16 133/63 96 05/20/22 08:00 05/20/22 08:00 05/20/22 08:00 05/20/22 08:00 05/20/22 08:00 Laboratory Data at Discharge: WBC 5.00 K/uL (4.3-10.9) 05/18/22 06:30 Hgb 11.1 g/dL (12.0-15.0) L 05/18/22 06:30 Hct 34.0 % (36.0-45.0) L 05/18/22 06:30 Plt Count 259 K/uL (152-406) 05/18/22 06:30 PT 12.0 SECONDS (9.5-12.5) 05/13/22 18:05 INR 1.09 05/13/22 18:05 APTT 31.7 SECONDS (24.3-36.9) 05/13/22 18:05 Sodium 137 mmol/L (136-145) 05/20/22 05:13 Potassium 4.3 mmol/L (3.5-5.1) 05/20/22 05:13 BUN 20 mg/dL (7-18) H 05/20/22 05:13 Creatinine 0.71 mg/dL (0.55-1.02) 05/20/22 05:13 Glucose 211 mg/dL (74-106) H 05/20/22 05:13 Phosphorus 2.7 mg/dL (2.5-4.9) 05/19/22 04:22 Magnesium 1.9 mg/dL (1.6-2.4) 05/20/22 05:13 Total Bilirubin 0.2 mg/dL (0.2-1.0) 05/19/22 04:22 AST 22 U/L (15-37) 05/19/22 04:22 ALT 51 U/L (13-56) 05/19/22 04:22 Alkaline Phosphatase 95 U/L (45-117) 05/19/22 04:22 Home Medications: RX: Metformin ER [Glucophage ER*] 1,000 mg PO BID 03/30/14 RX: Amlodipine [Norvasc*] 5 mg PO DAILY 11/30/16 RX: Metoprolol Succinate [Toprol Xl*] 100 mg PO DAILY 11/30/16 RX: Ferrous Sulfate 1 tab PO DAILY 03/30/21 RX: Lisinopril [Zestril] 20 mg PO DAILY 03/30/21 RX: Pantoprazole [Protonix Tab*] 20 mg PO DAILY 03/30/21 RX: Vitamin D [Drisdol*] 1,000 unit PO DAILY 03/30/21 RX: Aspirin [Aspirin EC 81 MG] 81 mg PO DAILY #30 tab 04/16/22 RX: Alfuzosin HCl 1 tab PO BEDTIME 05/14/22 RX: Atorvastatin Calcium [Lipitor*] 1 tab PO BEDTIME 05/14/22 RX: Docusate [Colace Cap*] 1 tab PO DAILY 05/14/22 RX: Insulin Glargine,Hum.rec.anlog [Basaglar Kwikpen U-100] 35 units SQ BEDTIME 05/14/22 RX: Nitroglycerin [Nitrostat*] 1 tab SL PRN PRN 05/14/22 RX: Ondansetron [Zofran (Odt)*] 1 tab PO Q6HP PRN 05/14/22 RX: estradioL [Estradiol] 1 dose VAG DAILY 05/14/22 RX: Magnesium Oxide [Magnesium] 250 mg PO DAILY 05/18/22 RX: Ertapenem Sodium [Ertapenem] 1 gm IV DAILY 10 Days #10 ml 05/20/22 RX: Sotalol HCl [Betapace*] 80 mg PO BID 6AM 6PM #60 tab 05/20/22 New Medications: RX: Sotalol HCl [Betapace*] 80 mg PO BID 6AM 6PM #60 tab RX: Ertapenem Sodium [Ertapenem] 1 gm IV DAILY 10 Days #10 ml Physician Discharge Instructions: PROBLEM: (list out Acute Problems for the Current visit) GOAL: Clear understanding of disease process INSTRUCTIONS: 1. Please call and schedule a follow-up appointment with your PCP (Dr. Velazquez) in 3-5 days - Please have him repeat your urinalysis on 05/22/2022 2. Please call and schedule a follow-up appointment with Cardiology (Dr. Palmer) in 5-7 days - He will discuss doing a procedure on your heart (Watchman - left atrial appendage closure), which will reduce your chance of blood clots/stroke with atrial fibrillation - Please have him refill/adjust your new prescriptions 3. Please keep your follow-up appointment with Urology (Dr. Bertrand) - There was a small amount of blood in your urine. Although this can be seen with UTI, we always want to exclude a bladder/kidney cancer. Please discuss this with Dr. Bertrand at your appointment. 4. Please keep your follow-up appointment with Gastroenterology (Dr. Toney) on 05/21/2022 - Please discuss the topic of blood thinners with him. As we mentioned, you are at an increased risk for stroke without a blood thinner. The decision to start one needs to be discussed between yourself, Gastroenterology, and Cardiology 5. If symptoms worsen, please go to the ER. 6. If you have any questions regarding hospital stay, feel free to call . Diet: AHA Activity: Ad heather DME DME: Date Ordered: Name of Company: [facility] Services Needed:Home Health Name of Company: [facility] Date or Referral: 05/18/22 IMMUNIZATION Influenza Vaccine Indicated: No Influenza Vaccine Given: Date Given: Pneumonia Vaccine Indicated: No Pneumonia Vaccine Given: Date Given: Diet: AHA Activity: Ad heather Followup: Shreyas Toney MD [OUTSIDE PHYSICIAN] - Kenan Velazquez DO [Primary Care Provider] - Delmer Palmer MD [ACTIVE - CAN ADMIT] - Liban Bertrand [ACTIVE - CAN ADMIT] - Time spent managing pt's care (in minutes): 40
--- NOTE | 2022-05-20 09:20 | P.PN ---
Subjective Date of Service: 05/20/22 Primary Care Provider: Marcus Chief Complaint: UTI/Sepsis Patient lying in bed very pleasant stated feeling better with no other issues and couldn't wait to go home. No cardiopulmonary distress seem upon examination Physical Examination - Vital Signs Temperature: 98 F Blood Pressure: 133/63 Pulse: 58 Respirations: 16 Pulse Ox (%): 96 - Physical Exam General: Alert, In no apparent distress, Oriented x3 Respiratory: Clear to auscultation bilaterally, Normal air movement Cardiovascular: No edema, Normal S1 S2 Gastrointestinal: Normal bowel sounds Musculoskeletal: No swelling, No tenderness Integumentary: No rashes, No erythema Neurological: Normal speech, Normal tone, Sensation intact, Normal affect - Studies active medications Acetaminophen (Acetaminophen 500 Mg Tab) 1,000 mg PO Q6H PRN PRN Reason: Pain scale 2-4 (Mild) Last Admin: 05/15/22 03:55 Dose: 1,000 mg Albuterol Sulfate (Albuterol 2.5 Mg/3 Ml Neb Anna) 2.5 mg NEB [id number] PRN PRN Reason: SHORTNESS OF BREATH Enoxaparin Sodium (Enoxaparin 30 Mg/0.3 Ml) 30 mg SQ DAILY 5 PM [facility] Last Admin: 05/19/22 16:30 Dose: 30 mg Ferrous Sulfate (Ferrous Sulfate 325 Mg Tab) 325 mg PO DAILY [facility] Last Admin: 05/20/22 08:33 Dose: 325 mg Meropenem 1,000 mg/ Sodium (Chloride) 100 mls @ 200 mls/hr IV Q8HR ADRIAN Last Admin: 05/20/22 08:33 Dose: 100 mls Ertapenem 1 gm/ Sodium (Chloride) 100 mls @ 200 mls/hr IVPB 1X ONE Stop: 05/20/22 10:29 Insulin Human Regular (Insulin -Regular Human 50 Unit/0.5 Ml Ml) 0 unit SQ ACHS [facility]; Protocol Last Admin: 05/20/22 08:32 Dose: 3 unit Mupirocin (Mupirocin 2% Oint 22gm Tube) 1 appl TOP BID ADRIAN Stop: 05/21/22 21:01 Last Admin: 05/20/22 08:32 Dose: 1 appl Ondansetron HCl (Ondansetron 4 Mg/2 Ml Vial) 4 mg IV Q6HP PRN PRN Reason: NAUSEA / VOMITING Sodium Chloride (Flush Normal Saline 10 Ml) 10 ml IV BID [facility] Last Admin: 05/20/22 08:33 Dose: 10 ml Sotalol HCl (Sotalol Hcl 80 Mg Tab) 80 mg PO BID 6AM 6PM [facility] Last Admin: 05/20/22 05:04 Dose: 80 mg Tramadol HCl (Tramadol Hcl 50 Mg Tab) 50 mg PO TID PRN PRN Reason: Pain scale 5-7 (Moderate) Last Admin: 05/16/22 20:35 Dose: 50 mg Microbiology Data (last 24 hrs): Microbiology 05/13/22 18:07 Blood - Blood Aerobic Blood Culture - Final Gram Neg Francisco Escherichia Coli Esbl 05/13/22 18:07 Blood - Blood Anaerobic Blood Culture - Final 05/13/22 18:07 Blood - Blood Gram Stain - Final 05/13/22 17:50 Blood - Blood Aerobic Blood Culture - Final Gram Neg Francisco Escherichia Coli Esbl 05/13/22 17:50 Blood - Blood Blood Culture Gram Stain - Final 05/13/22 17:50 Blood - Blood Anaerobic Blood Culture - Final Escherichia Coli Esbl 05/13/22 17:50 Blood - Blood Gram Stain - Final Medications List Reviewed: Yes Assessment And Plan - Current Problems (Diagnosis) (1) Bacteremia Plan: Cultures: - 05/19 UC: Pending - 05/13 BC x2 (2/): ESBL E. Coli, susceptible to Bactrim, Zosyn and Meropenem - 05/13 UC: ESBL E. Coli, susceptible to Bactrim, Zosyn, Nitrofurantoin and Meropenem Antibiotics: - Had Ceftriaxone on 05/15 and Meropenem (05/17-05/20) - Current on IV Ertapenem (05/20- ) Recommendations: - Agree with primary team to continue IV Ertapenem for total of 10 more days (2) UTI (urinary tract infection) Plan: Cultures: - 05/19 UA: Positive and culture pending - 05/13 BC x2 (2/): ESBL E. Coli, susceptible to Bactrim, Zosyn and Meropenem - 05/13 UC: ESBL E. Coli, susceptible to Bactrim, Zosyn, Nitrofurantoin and Meropenem Antibiotics: - Had Ceftriaxone on 05/15 and Meropenem (05/17-05/20) - Current on IV Ertapenem (05/20- ) Recommendations: - Agree with primary team to continue IV Ertapenem for total of 10 more days - Plan - Sepsis: Most likely due to UTI and bacteremia - Bacteremia: Continue IV Ertapenem for total of 10 more days and pending for repeated UC on 05/19 - UTI (urinary tract infection): Continue IV Ertapenem - Pyelonephritis, right - Moderate protein calorie malnutrition - Coronary artery disease - Hyperlipidemia - Hypertension - Type 2 diabetes mellitus - UT - GERD - Kidney stone - Thyroidectomy - Stent in LAD (03/2014) - Cholecystectomy - kidney stones removed ID will monitor the patient closely for signs of infection with fever and WBC trends Case has been discussed with Dr. Flores N Physician Review: Patient Assessed, Agree with Above Assessment and Plan
[2022-05-20] MEDS ORDERED: ERTAPENEM NA 1 GM in NA CHLORIDE 0.9% 100 ML IVPB ONE (10:00)
--- NOTE | 2022-05-20 13:19 | EKG ---
Test Date: 2022-05-20 Test Time: 06:40:29 Architecture Analyst: SAI MEASUREMENT RESULTS: Intervals: Rate: 58 IA: 152 QRSD: 76 QT: 496 QTc: 486 [place]: P: 58 IA: 152 QRS: 80 T: 80 INTERPRETIVE STATEMENTS: Sinus bradycardia Otherwise normal ECG Compared to ECG 05/19/2022 20:56:06 Sinus rhythm no longer present Electronically Signed On 05-20-22 13:19:04 CDT by Delmer Palmer
--- NOTE | 2022-05-20 13:20 | EKG ---
Test Date: 2022-05-19 Test Time: 20:56:06 Spoke Maker: SAI MEASUREMENT RESULTS: Intervals: Rate: 60 MO: 158 QRSD: 68 QT: 458 QTc: 458 [place]: P: 47 MO: 158 QRS: 68 T: 76 INTERPRETIVE STATEMENTS: Normal sinus rhythm Normal ECG Compared to ECG 05/16/2022 15:11:58 Atrial fibrillation no longer present Electronically Signed On 05-20-22 13:19:29 CDT by Delmer Palmer
== END 2022-05-20 11:37 | disposition home health service (06) | DRG 872 ==
LOC: ER 17:17 → ERHOLD 19:48 → 4TH 23:44
PROVIDERS: ADMIT Hospitalist; ATTEND Internal Medicine
PROC: 02HV33Z Insertion of Infusion Device into Superior Vena Cava, Percutaneous Approach (ICD-10-PCS; principal; 2022-05-17)
DX: A41.51 Sepsis due to Escherichia coli [E. coli] (principal); Z16.12 Extended spectrum beta lactamase (ESBL) resistance; N12 Tubulo-interstitial nephritis, not specified as acute or chronic; E44.0 Moderate protein-calorie malnutrition; I10 Essential (primary) hypertension; I48.0 Paroxysmal atrial fibrillation; E78.5 Hyperlipidemia, unspecified; K21.9 Gastro-esophageal reflux disease without esophagitis; E11.65 Type 2 diabetes mellitus with hyperglycemia; I25.10 Atherosclerotic heart disease of native coronary artery without angina pectoris; I25.2 Old myocardial infarction; R31.29 Other microscopic hematuria; R79.89 Other specified abnormal findings of blood chemistry; Z79.4 Long term (current) use of insulin; Z95.5 Presence of coronary angioplasty implant and graft; Z79.02 Long term (current) use of antithrombotics/antiplatelets; Z90.49 Acquired absence of other specified parts of digestive tract; Z79.82 Long term (current) use of aspirin; Z79.84 Long term (current) use of oral hypoglycemic drugs; Z68.24 Body mass index [BMI] 24.0-24.9, adult; Z79.899 Other long term (current) drug therapy; Z20.822 Contact with and (suspected) exposure to COVID-19
CPT/HCPCS: 36415; 36569; 71045; 74177; 80048; 80053; 81001; 81003; 81015; 82947; 83605; 83735; 83880; 84100; 84145; 84439; 84443; 84484; 85025; 85610; 85730; 87040; 87077; 87086; 87088; 87186; 87205; 87811; 93005; 96374; 99285; J1160; J1335; J1650; J1815; J2185; J2785; J3475; J7030; Q9967

== ENCOUNTER 2022-06-02 10:24 | Day surgery (SDC) | payer OTHER ==
[2022-06-02] MEDS ORDERED: NA CHLORIDE 0.9% 1,000 ML ONE (10:44)
[2022-06-02] MEDS ORDERED: CEFAZOLIN SODIUM 1 GM/VIAL ONE (10:44)
[2022-06-02] MEDS ORDERED: propofoL 200 MG/20 ML VIAL IV ONE (12:55)
[2022-06-02] MEDS ORDERED: FENTANYL CITR 100 MCG/2 ML ONE (12:56)
[2022-06-02] MEDS ORDERED: MIDAZOLAM HCL 2 MG/2 ML INJ ONE (12:56)
[2022-06-02] MEDS ORDERED: LIDOCAINE 2% MPF 5 ML VIAL ONE (12:57)
[2022-06-02] MEDS ORDERED: ONDANSETRON 4 MG/2 ML VIAL ONE (12:57)
[2022-06-02] MEDS ORDERED: SCOPOLAMINE HYDROBROMIDE PATCH TD ONE (13:28)
[2022-06-02] MEDS ORDERED: EPHEDRINE SULF 50 MG/ML VIAL ONE (14:03)
[2022-06-02] MEDS ORDERED: CODEINE 30MG/APAP 300MG TAB ONE (15:37)
[2022-06-02 16:10] VITALS: BP 141/56; TEMP 97; O2SAT 99
--- NOTE | 2022-06-02 19:35 | OP ---
Surgeon: GEORGIA TAYLOR Preoperative Diagnoses: 1.Right nephrolithiasis 8 mm. 2.History of complicated urinary tract infection. 3.Recurrent urinary tract infections. Postoperative Diagnoses: 1.Right nephrolithiasis 8 mm. 2.History of complicated urinary tract infection. 3.Recurrent urinary tract infections. Principal Procedures: Right ESWL/extracorporeal shockwave lithotripsy. Indication For Procedure: Ms. Reddy presented to Urology Clinic having undergone a hospital admissi on for complicated by urinary tract infection/cystitis that became right-sided pyelonephritis associa sven with sepsis. She had no other sign cystoscopically of source for these infections other than the presence of the right-sided nephrolithiasis, which may harbor the chronic infection with the ESBL, E coli. As a result, she was recommended for definitive management of the stones via shockwave lithot ripsy. Procedure In Detail: The patient was consented in the preoperative holding area before being transfe rred to operative suite where general anesthesia was induced. She was given Ancef 1 g IV antimicrobi al prophylaxis and pneumo boots were provided for DVT prophylaxis. She was placed supine on the [facility] Nanostim lithotripsy table with a water bath beneath her flank. Fluoroscopic imaging was used to visual ize the stone and it was targeted in the left, right, and dorsal central positions. Shockwave lithot ripsy head was then centered on the stone and the stone was then shocked slowly ramping up the power of the course of 500 shocks with a 2-minute pause somewhere between [address] about 1000 shocks delivered, there was evident disillusionment of the stone, and the residual sto ne fragments were targeted for an additional 1000 shocks until approximately 2000 shocks have been de livered. At that point, the therapy head was backed out and visualization of the area was undertaken . There was no significant radiopaque density of firm calculus present, but there was a cloud of dus t in that region and so we targeted that dose cloud for an additional 500 shocks where a total of 250 0 shocks delivered. The therapy head was then removed and the patient awakened from general anesthes ia. She was then transferred to a stretcher and then transferred to the recovery room in good condit ion. Complications: None. Discharge Disposition: She may follow up in the Urology Clinic in about 6-8 weeks' time with a precl inic KUB and urine culture obtained about a week prior to assess for resolution of her infection. I will discharge her with a prescription for Bactrim or Macrobid for the next 3-5 days while she passes the stone fragments, which may potentially harbor infection. CATHI/JO Voice ID: [id number] Report ID: [id number]
== END 2022-06-02 16:03 | disposition home or self-care (01) ==
LOC: OR 10:24
PROVIDERS: ATTEND Urology
DX: N20.0 Calculus of kidney (principal); N12 Tubulo-interstitial nephritis, not specified as acute or chronic; A49.9 Bacterial infection, unspecified; Z16.12 Extended spectrum beta lactamase (ESBL) resistance; R33.9 Retention of urine, unspecified; E11.9 Type 2 diabetes mellitus without complications; I10 Essential (primary) hypertension; E78.00 Pure hypercholesterolemia, unspecified; K21.9 Gastro-esophageal reflux disease without esophagitis; I48.91 Unspecified atrial fibrillation; I25.2 Old myocardial infarction; Z95.5 Presence of coronary angioplasty implant and graft; Z79.82 Long term (current) use of aspirin; Z79.899 Other long term (current) drug therapy; Z90.49 Acquired absence of other specified parts of digestive tract; I25.10 Atherosclerotic heart disease of native coronary artery without angina pectoris
CPT/HCPCS: 50590; 82947; 87086; 87088; J0690; J2001; J2250; J2405; J2704; J3010; J7030

== ENCOUNTER → 2022-08-10 | Day surgery (SDC) | payer OTHER ==
[~2022-08-10] MED LIST: ATROPINE SULF 1 MG/10 ML SYR IV ONE; FENTANYL CITR 100 MCG/2 ML ONE; FLUMAZENIL 0.1 MG/ML (5 mL VIAL) IV ONE; HYDRALAZINE HCL 20 MG/ML VIAL ONE; LIDOCAINE VISCOUS 2% SOLN 15 ML UDC ONE; METOPROLOL TARTRATE 5 MG/5 ML INJ IV ONE; MIDAZOLAM HCL 0 ML ONE; MIDAZOLAM HCL 5 ML ONE; NA CHLORIDE 0.9% 500 ML ONE; NALOXONE 0.4 MG/ML VIAL ONE; PHENOL 1.4% ORAL SPRAY 180ML ONE
[2022-08-10 09:45] VITALS: BP 150/69; O2SAT 98
--- NOTE | 2022-08-12 14:50 | OP ---
Date of Procedure: 08/10/2022 Surgeon: ALYSSA WHELAN Procedure Performed: Transesophageal echocardiogram. Indication: Atrial fibrillation, status post Watchman 6 weeks post. Description Of Procedure: After risks, benefits, alternatives were explained, the patient agreed to procedure and signed informed consent. The patient was brought into room and after proper time-out, the back of throat numbed using viscous, lidocaine, and gave Versed incremental doses to achieve adeq uate moderate sedation. Then, YULI probe was inserted. YULI was performed without difficulty and prob e was removed. No complications. Conclusion: 1.Successful YULI. 2.Watchman device seated very well without leak or thrombosis. SR/MODL Voice ID: [id number] Report ID: [id number]
--- NOTE | 2022-08-13 07:19 | TEE ---
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 TRANSESOPHAGEAL ECHOCARDIOGRAM WAS INSERTED WITHOUT DIFFICULTY. 2. WATCHMAN DEVICE IS SEATED WELL. NO LEAK, NO THROMBUS 3. NORMAL LEFT VENTRICULAR EJECTION FRACTION 55-60% TECHNOLOGIST: EMANUEL ZAMARRIPA
== END | disposition home or self-care (01) ==
LOC: EKG 08:00
PROVIDERS: ATTEND Internal Medicine
DX: I48.91 Unspecified atrial fibrillation (principal); Z98.890 Other specified postprocedural states; I25.10 Atherosclerotic heart disease of native coronary artery without angina pectoris; I65.29 Occlusion and stenosis of unspecified carotid artery; E78.5 Hyperlipidemia, unspecified; E11.9 Type 2 diabetes mellitus without complications; I25.2 Old myocardial infarction; Z95.5 Presence of coronary angioplasty implant and graft; Z79.84 Long term (current) use of oral hypoglycemic drugs; Z79.899 Other long term (current) drug therapy; Z82.49 Family history of ischemic heart disease and other diseases of the circulatory system
CPT/HCPCS: 93312; J2250; J7040; J0360; J0461; J2310; J3010

== ENCOUNTER 2022-10-02 13:27 | Observation (INO) | payer OTHER ==
--- OUTSIDE RECORDS SUMMARY | 2022-10-02 13:43 | XMS REPORT | Continuity of Care Document ---
:1945 Author Organization [facility] t Address [address] [place] [address] Care Team Providers Name Role Phone José Luis Harrington Primary Care Physician José Luis Harrington Attending Clinician Unavailable NAINA BYRD Attending Clinician Unavailable CHATA SPANGLER Attending Clinician Unavailable LARISSA LUNDY Attending Clinician Unavailable DONNELL LOPEZ Attending Clinician Unavailable KENAN VELAZQUEZ Attending Clinician Unavailable LAKIA DONG Attending Clinician Unavailable LAB90 Attending Clinician Unavailable MESHA JENSEN Attending Clinician Unavailable LAB47 Attending Clinician Unavailable Delmer Palmer Attending Clinician Unavailable Doctor Unassigned, [place] Attending Clinician Unavailable CLARITA SCOTT MARIBEL Attending Clinician Unavailable ALLI CORRIGAN Attending Clinician Unavailable TRED47 Attending Clinician Unavailable CARLOS SCHULTZ Attending Clinician Unavailable MAURICIO FERRARA Attending Clinician Unavailable MALKA CHUNG Attending Clinician Unavailable Jaren LUGO, Cas Gary Attending Clinician [phone] CAS MAGALLON Attending Clinician Unavailable MAGALY SHIRLEY Attending Clinician Unavailable Casper MEAT BLENDER, Magaly Attending Clinician Marco MEAT BLENDER, Juancarlos Attending Clinician Iker MEAT BLENDER-CLakia Attending Clinician [id number] Attending Clinician Unavailable Naina Byrd DO Attending Clinician Kenan Velazquez DO Attending Clinician Cherelle Mcbride RN Attending Clinician Unavailable Only, Ang Db Test Attending Clinician Unavailable JUANCARLOS LARA Attending Clinician Unavailable COVID-PFIZER JARETH, [place] Attending Clinician Unava ilable Carlos Schultz MD Attending Clinician Ross Borden DO Attending Clinician Michael Foley MD Attending Clinician MICHAEL FOLEY Attending Clinician Unavailable Ziggy Chatterjee DO Attending Clinician NATALIA PATTEN Attending Clinician Unavailable Natalia Patten MD Attending Clinician Guillermo ROUSE, Kellen Attending Clinician Unavailable Frank Yanez MD Attending Clinician Erika Henley MD Attending Clinician Lab, Adc Fam Pob I Attending Clinician Unavailable Anene MEAT BLENDER, Nayana Attending Clinician Delmer Palmer Admitting Clinician Unavailable Erika Henley MD Admitting Clinician Payers Payer Name Policy Type Policy Number Effective Date Expiration Date Delisa SHEEHAN [employer] [id number] 2017spring 00:00:00 AETNA MA PREMIER 7 [id number] 2021 HMO PLAN 00:00:00 DEBBY [id number] 2021 ADVANTAGE 00:00:00 [employer]ETNA MEDICARE OUT [id number] 2021 2021 OF NETWORK 00:00:00 00:00:00 HU[employer] MEDICARE 7 [id number] 2021 [id number] GOLD 00:00:00 PLUS 2021 KCA MAPD - HMO 7 [id number] 2020 2020 R2T 00:00:00 Problems Condition Condition Condition Status Onset Resolution Last Treating Co mments Source Name Details Category Date Date Treatment Clinician Date Urinary Urinary Disease Active Kasia tract tract 7-03 Seybold infection infection 00:00: - without without 00 Externa hematuria hematuria l Dermatitis Dermatitis Disease Active Nirav tiwari 4-05 Seybold 00:00: - 00 Externa l Chronic Chronic Disease Active Kasia bilateral bilateral 4-05 Seyb old low back low back 00:00: - pain pain 00 Externa without without l sciatica sciatica 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 3-31 Seyb old spectrum spectrum 00:00: - beta-lacta beta-lacta 00 Ex terna felicitas) felicitas) l producing producing bacteria bacteria infection infection Paroxysmal Paroxysmal Disease Active Nirav tiwari atrial atrial 3-17 Seybold fibrillati fibrillati 00:00: - on on 00 Externa l Polyp of Polyp of Disease Active Killianse y duodenum duodenum 3-17 Seybol d 00:00: - 00 Externa l Esophagiti Esophagiti Disease Active Nirav tiwari s s 3-17 Seybold 00:00: - 00 Externa l Nephrolith Nephrolith Disease Active Nirav tiwari iasis iasis 3-17 Seybold 00:00: - 00 Externa l History of History of Disease Active Nirav tiwari pyelonephr pyelonephr 3-17 Se ybold itis itis 00:00: - 00 Externa l Acute Acute Disease Active Kasia cystitis cystitis [...] 40% and 40% LICA at L[facility] at [facility] S/P S/P Disease Active 2021-03 Kasia primary primary 0-04 Seybold angioplast angioplast 00:00: - y with y with 00 Externa coronary coronary l stent: RCA stent: RCA (patent), (patent), LM (20%), LM (20%), LCx LCx (ped07-51% (pic68-39% ), OM1 ), OM1 (patent (patent stent), stent), LAD LAD (ostial (ostial 30%, prox 30%, prox patent patent stent), stent), Synergy Synergy [id number] to D1 on to D1 on 11/08/2018 11/08/2018 [facility] Type 2 Type [address] [facility] diabetes diabetes n[facility] 12[facility] mellitus mellitus 00:00: Medica l 00 Center 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 12[facility] carotid carotid 00:00: Medical artery artery 00 Center Coronary Coronary Disease [facility] disease disease 00:00: Medical involving involving 00 Cent [facility] [place] [facility] coronary coronary artery artery without without angina angina pectoris pectoris Primary Primary Disease Active [facility] hypertensi hypertensi 12-03 Shanti kes on on 00:00: Medical 00 Center Dyslipidem Dyslipidem Disease Active [facility] ia ia [facility] GERD GERD Disease Active [facility] (gastroeso (gastroeso 12-03 Shanti kes phageal phageal 00:00: Medical reflux reflux 00 Center disease) disease) Coronary Coronary Disease [facility] disease disease 00:00: Medical involving involving 00 Cent [facility] [place] [facility] [place] [facility] [facility] [place] coronary coronary artery artery without without angina angina pectoris pectoris Right Right Disease Active Kasia carotid carotid [...] to to 00:00: - diabetes diabetes 00 [employer] a mellitus mellitus l 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 MRI 12/2020: C-spine showed moderatel y severe lower cervical degenerat conner spondylos is most significa nt at C5-C6. 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 MRI 12/2020: Moderate lower thoracic degenerat conner spondylos is also identifie d. Drug-induc Drug-induc Disease Active Nirav tiwari ed ed 3-17 Seybold constipati constipati 00:00: [...] be different from the original. Controlle d Primary Primary Disease Active Overview: Nereyda cuello hypertensi hypertensi 11-28 Formattin Seybold on on 00:00: g of this - note Externa might be l different from the original. On KELBY + BBLast Assessmen t & Plan: Formattin g of this note might be different from the original. Controlle d Dyslipidem Dyslipidem Disease Active Overview : Kasia ia ia 11-28 Formattin Seybold 00:00: g of this - note Externa [...] anemia anemia 00:00: g of this - 00 note Externa might be l different from the original. 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 In [place] told a spot on the lievr needed 6 month follow up Coronary Coronary Disease Active Unive rs artery artery 8 ity of disease disease 00:00: [place] involving involving 00 Medi ran[facility] [facility] [place] [facility] [place] [facility] coronary coronary artery of artery of [facility] [facility] [place] [facility] [facility] [place] heart heart without without angina angina pectoris pectoris Acute Acute Disease Active Univers pancreatit pancreatit 10-11 it y of is is 00:00: [place] 00 [facility] Coronary Coronary Disease Active Unive rs artery artery 10-11 ity of disease disease 00:00: [place] involving involving 00 Medi ranjan [place] [facility] [place] [facility] [facility] [place] [facility] coronary coronary artery of artery of [place] [facility] [place] [facility] [place] heart heart without without angina angina pectoris pectoris Type 2 Type 2 Disease Active Univers diabetes diabetes 8 ity of mellitus mellitus 00:00: [place] without without 00 Medical complicati complicati Br anch on, on, without without long-term long-term current current use of use of insulin insulin Acid Acid Disease Active Univers reflux reflux 4- ity of 00:00: [place] [facility] Essential Essential Disease Active Uni vers hypertensi hypertensi 06-06 it y of on, benign on, benign [place] [facility] Hyperlipid Hyperlipid Disease Active U nivers emia emia 06-06 ity of 00:00: [place] [facility] Type II or Type II or Disease Active U nivers unspecifie unspecifie 06-06 it y of d type d type 00:00: [place] diabetes diabetes 00 Medica l mellitus mellitus Branch with with unspecifie unspecifie d d complicati complicati on, not on, not stated as stated as uncontroll uncontroll ed ed [id number] Constipati Problem Com mon on, Spirit unspecifie - [facility] d constipati [facility] on [facility] [id number] Lower Problem Common urinary [facility] tract - [facility] symptoms (LUTS) [facility] [id number] Bladder Problem Common stones [facility] [id number] Recurrent Problem Com mon UTI [facility] [id number] Incomplete Problem Co mmon emptying [facility] of bladder [facility] [id number] Pelvic Problem Common pain [facility] Allergies, Adverse Reactions, Alerts Allergy Allergy Status Severity Reaction(s) Onset Inactive Treating Comm ents Source Name Type Date Date Clinician No Known DA Active [facility] Allergie 06-22 Clear s 00:00: [address] NO KNOWN Drug Active Univers ALLERGIE Class ity of S [facility] Family History Family Member Diagnosis Comments Start Date Stop Date Source Natural father Heart disease [facility] Natural father Stroke [facility] Social History Social Habit Start Date Stop Date Quantity Comments Source Gender identity Kasia Shepherd simone - External Sexual orientation Kasia Jones - External History of Tobacco Common Spirit - Use [facility] Tobacco use and 2021-12-03 2021-12-03 Smokeless [facility] exposure 00:00:00 00:00:00 tobacco non-user [facility] Exposure to 2021-09-17 2021-09-27 Not sure University of SARS-CoV-2 (event) 00:00:00 18:31:00 [facility] Alcohol intake 2021-09-27 2021-09-27 .12 /d [facility] 00:00:00 00:00:00 [facility] History of Social 2020-11-28 2020-11-28 Kasia Shepherdybold - function 00:00:00 00:00:00 External Sex [birth year] RODERICK Ruiz 00:00:00 [facility] Smoking Status Start Date Stop Date Source Never smoked tobacco Kasia Ha old - External Medications Ordered Filled Start Stop Current Ordering Indication Dosage Frequency Signature Comments Components Source Medication Medication Date Date Medication? Clinician (SIG) Name Name Aspirin 81 2022-0 2022- No 81mg Take 1 Nereyda ey MG oral 7-21 - tablet (81 Seybo ld Tablet 17:42: 00:00 mg total) - Delayed 10 :00 by mouth Externa Response daily l Magnesium 2022-0 Yes 1 tablet Nereyda ey 250 MG oral 7-20 with a Seybol d Tablet 15:13: meal - 53 Externa l Rosuvastati Yes [id number] 1{tbl} 1 tablet Kasia n Calcium 7-20 by other Seybol d 10 MG oral 15:13: route - CAPSULE 53 Externa SPRINKLE l Calcium Yes 1{tbl} Take 1 Kasia Carb-Cholec 7-20 tablet by Seladarius bold alciferol 13:53: mouth - (Calcium 58 daily Externa 600+D) l 600-20 MG-MCG oral Tablet Amlodipine 0 Yes [id number] 5mg TAKE 1 K elsey Besylate 7-19 TABLET (5 Seybol d (NORVASC) 5 00:00: MG TOTAL) - MG oral 00 BY MOUTH Externa Tablet DAILY. l Aspirin 81 2022-0 Yes 81mg Take 1 Kelse y MG oral 7-03 tablet (81 Seybol d Tablet 14:30: mg total) - Delayed 14 by mouth Externa Response daily l Magnesium 2022-0 Yes 1 tablet Nereyda ey 250 MG oral -03 with a Seybol d Tablet 14:30: meal - 14 Externa l Clopidogrel 2022-0 Yes [id number] 75mg Take 1 Kasia Bisulfate 7-03 tablet (75 Seyb old (PLAVIX) 75 00:00: mg total) - MG oral 00 by mouth Externa Tablet daily l Aspirin 81 0 Yes [id number] 81mg Take 1 Kasia MG oral 7-03 tablet (81 Seybol d Tablet 00:00: mg total) - Delayed 00 by mouth Externa Response daily l Insulin Pen Yes [id number] Takes Kasia Needle 31G 7-03 insulin Seybol d X 5 MM does 00:00: once daily - not apply 00 Externa Misc l Insulin Yes [id number] Takes up K elsey Glargine 7-03 to 35 Seybold (Basaglar 00:00: units SQ - KwikPen) 00 daily at Externa 100 UNIT/ML bedtime l subcutaneou s Solution Pen-injecto r Glucose Yes [id number] Check BS Ke lsey Blood (True 7-03 twice Seybold Metrix 00:00: daily - Blood 00 Externa Glucose l Test) in vitro Strip Atorvastati Yes [id number] 20mg Take 1 Kasia n Calcium 7-03 tablet (20 Seyb old 20 MG oral 00:00: mg total) - Tablet 00 by mouth Externa daily l Clopidogrel Yes [id number] 75mg Take 1 Kasia Bisulfate 7-03 tablet (75 Seyb old (PLAVIX) 75 00:00: mg total) - MG oral 00 by mouth Externa Tablet daily l Aspirin 81 0 Yes [id number] 81mg Take 1 Kasia MG oral 7-03 tablet (81 Seybol d Tablet 00:00: mg total) - Delayed 00 by mouth Externa Response daily l Insulin Pen Yes [id number] Takes Kasia Needle 31G 7-03 insulin Seybol d X 5 MM does 00:00: once daily - not apply 00 Externa Misc l Insulin Yes [id number] Takes up K elsey Glargine 7-03 to 35 Seybold (Basaglar 00:00: units SQ - KwikPen) 00 daily at Externa 100 UNIT/ML bedtime l subcutaneou s Solution Pen-injecto r Glucose Yes [id number] Check BS Ke lsey Blood (True 7-03 twice Seybold Metrix 00:00: daily - Blood 00 Externa Glucose l Test) in vitro Strip Atorvastati Yes [id number] 20mg Take 1 Kasia n Calcium 7-03 tablet (20 Seyb old 20 MG oral 00:00: mg total) - Tablet 00 by mouth Externa daily l Amlodipine 0 Yes [id number] 5mg TAKE 1 K elsey Besylate 6-15 TABLET (5 Seybol d (NORVASC) 5 00:00: MG TOTAL) - MG oral 00 BY MOUTH Externa Tablet DAILY. l Nitrofurant 2022-0 Yes [id number] 1 CAPSULE Kasia oin Monohyd 6-15 WITH FOOD Sey bold Macro 100 00:00: ORALLY - MG oral 00 DAILY DO Externa Capsule NOT START l UNTIL DONE WITH BACTRIM (TMP-SMZ) THERAPY 90 DAYS TRIMETHOPRI 2022-0 2022- No 1{tbl} 1 tablet Kasia M-SULFAMETH 6-14 07-21 every 12 Sey bold OXAZOLE 00:00: 00:00 hours - (BACTRIM 00 :00 Externa DS) 800-160 l MG oral Tablet Aspirin 81 0 Yes 81mg Take 1 Kelse y MG oral 5-02 tablet (81 Seybol d Tablet 11:16: mg total) - Delayed 09 by mouth Externa Response daily l Magnesium 0 Yes 1 tablet Nereyda ey 250 MG oral 5-02 with a Seybol d Tablet 11:16: meal - 09 Externa l Cetirizine 0 Yes [id number] TAKE 1 Kasia (ZYRTEC) 10 4-20 CAPSULE Seybo ld MG oral 00:00: (10 MG - Tablet 00 TOTAL) BY Externa MOUTH l DAILY NEEDED (ITCHING) Cetirizine 0 Yes [id number] TAKE 1 Kasia (ZYRTEC) 10 4-20 CAPSULE Seybo ld MG oral 00:00: (10 MG - Tablet 00 TOTAL) BY Externa MOUTH l DAILY NEEDED (ITCHING) Cetirizine 0 Yes [id number] TAKE 1 Kasia (ZYRTEC) 10 4-20 CAPSULE Seybo ld MG oral 00:00: (10 MG - Tablet 00 TOTAL) BY Externa MOUTH l DAILY NEEDED (ITCHING) Cetirizine 0 Yes [id number] TAKE 1 Kasia (ZYRTEC) 10 4-20 CAPSULE Seybo ld MG oral 00:00: (10 MG - Tablet 00 TOTAL) BY Externa MOUTH l DAILY NEEDED (ITCHING) Eliquis 5 0 Yes 5mg Take 1 Kasia MG oral 4-19 tablet (5 Seybold Tablet 00:00: mg total) - 00 by mouth 2 Externa times l daily Eliquis 5 2022-0 2022- No 5mg Take 1 Kelse y MG oral 4-19 07-03 tablet (5 Seybol d Tablet 00:00: 00:00 mg total) - 00 :00 by mouth 2 Externa times l daily Na Yes See Admin Kasia Sulfate-K 4-11 Instructio Seyb old Sulfate-Mg 00:00: ns - Sulf 00 Externa (SUPREP l BOWEL PREP KIT) 17.5-3.13-1 .6 GM/177ML oral Solution Na Yes See Admin Kasia Sulfate-K 4-11 Instructio Seyb old Sulfate-Mg 00:00: ns - Sulf 00 Externa (SUPREP l BOWEL PREP KIT) 17.5-3.13-1 .6 GM/177ML oral Solution Na Yes See Admin Kasia Sulfate-K 4-11 Instructio Seyb old Sulfate-Mg 00:00: ns - Sulf 00 Externa (SUPREP l BOWEL PREP KIT) 17.5-3.13-1 .6 GM/177ML oral Solution Cetirizine Yes [id number] 10mg QD Take 1 Kasia HCl (ZyrTEC 4-05 capsule Seybo ld Allergy) 10 00:00: (10 mg - MG oral 00 total) by Externa Capsule mouth l daily as needed (itching) Mupirocin 0 Yes [id number] Apply 1 Kasia (BACTROBAN) 4-05 applicatio Se ybold 2 % apply 00:00: n. - externally 00 topically Exte rna Ointment 2 times l daily Mupirocin 0 Yes [id number] Apply 1 Kasia (BACTROBAN) 4-05 applicatio Se ybold 2 % apply 00:00: n. - externally 00 topically Exte rna Ointment 2 times l daily Mupirocin Yes [id number] Apply 1 Kasia (BACTROBAN) 06-10 applicatio Se ybold 2 % apply 00:00: n. - externally 00 topically Exte rna Ointment 2 times l daily Mupirocin 2023-0 Yes [id number] Apply 1 Kasia (BACTROBAN) 06-10 applicatio Se ybold 2 % apply 00:00: n. - externally 00 topically Exte rna Ointment 2 times l daily Mupirocin 2022-0 Yes [id number] Apply 1 Kasia (BACTROBAN) 06-10 applicatio Se ybold 2 % apply 00:00: n. - externally 00 topically Exte rna Ointment 2 times l daily Glucose 2022-0 2022- No 4{each} 4 each by K elsey Blood (True 3-17 -17 other Seybol d Metrix 15:42: 00:00 route 3 - Blood 41 :00 times Externa Glucose daily l Test) in vitro Strip Aspirin 81 2022-0 Yes 81mg Take 81 mg K elsey MG oral 3-17 by mouth Seybold Tablet 14:57: daily - Delayed 12 Externa Response l Magnesium 2023-0 Yes 1 tablet Nereyda ey 250 MG oral 3-17 with a Seybol d Tablet 14:57: meal - 12 Externa l Aspirin 81 2023-0 Yes 81mg Take 81 mg K elsey MG oral 3-17 by mouth Seybold Tablet 14:57: daily - Delayed 12 Externa Response l Magnesium 2023-0 Yes 1 tablet Nereyda ey 250 MG oral 3-17 with a Seybol d Tablet 14:57: meal - 12 Externa l Aspirin 81 3-0 Yes 81mg Take 81 mg K elsey MG oral 3-17 by mouth Seybold Tablet 14:57: daily - Delayed 12 Externa Response l Magnesium 2023-0 Yes 1 tablet Nereyda ey 250 MG oral 3-17 with a Seybol d Tablet 14:57: meal - 12 Externa l Aspirin 81 2023-0 Yes 81mg Take 81 mg K elsey MG oral 3-17 by mouth Seybold Tablet 14:57: daily - Delayed 12 Externa Response l Magnesium 2023-0 Yes 1 tablet Nereyda ey 250 MG oral 3-17 with a Seybol d Tablet 14:57: meal - 12 Externa l Glucose 2023-0 Yes [id number] Check BS Ke lsey Blood (True 3-17 twice Seybold Metrix 00:00: daily - Blood 00 Externa Glucose l Test) in vitro Strip Sotalol HCl Yes [id number] 80mg Take 1 Kasia 80 MG oral 3-17 tablet (80 Sey bold Tablet 00:00: mg total) - 00 by mouth 2 Externa times l daily Glucose Yes [id number] Check BS Ke lsey Blood (True 3-17 twice Seybold Metrix 00:00: daily - Blood 00 Externa Glucose l Test) in vitro Strip Sotalol HCl Yes [id number] 80mg Take 1 Kasia 80 MG oral 3-17 tablet (80 Sey bold Tablet 00:00: mg total) - 00 by mouth 2 Externa times l daily Glucose Yes [id number] Check BS Ke lsey Blood (True 3-17 twice Seybold Metrix 00:00: daily - Blood 00 Externa Glucose l Test) in vitro Strip Sotalol HCl Yes [id number] 80mg Take 1 Kasia 80 MG oral 3-17 tablet (80 Sey bold Tablet 00:00: mg total) - 00 by mouth 2 Externa times l daily Glucose Yes [id number] Check BS Ke lsey Blood (True 3-17 twice Seybold Metrix 00:00: daily - Blood 00 Externa Glucose l Test) in vitro Strip Sotalol HCl Yes [id number] 80mg Take 1 Kasia 80 MG oral 3-17 tablet (80 Sey bold Tablet 00:00: mg total) - 00 by mouth 2 Externa times l daily Glucose Yes [id number] Check BS Ke lsey Blood (True 3-17 twice Seybold Metrix 00:00: daily - Blood 00 Externa Glucose l Test) in vitro Strip Sotalol HCl Yes [id number] 80mg Take 1 Kasia 80 MG oral 3-17 tablet (80 Sey bold Tablet 00:00: mg total) - 00 by mouth 2 Externa times l daily Sotalol HCl Yes [id number] 80mg Take 1 Kasia 80 MG oral 3-17 tablet (80 Sey bold Tablet 00:00: mg total) - 00 by mouth 2 Externa times l daily Sotalol HCl 2022-0 Yes [id number] 80mg Take 1 Kasia 80 MG oral 3-17 tablet (80 Sey bold Tablet 00:00: mg total) - 00 by mouth 2 Externa times l daily Glucose 2022-0 3- No [id number] Check BS K elsey Blood (True 3-17 - twice Seybol d Metrix 00:00: 00:00 daily - Blood 00 :00 Externa Glucose l Test) in vitro Strip Nitrofurant 2022-0 Yes Kasia oin Monohyd 3-16 Seybold Macro 100 00:00: - MG oral 00 Externa Capsule l Pantoprazol 2022-0 Yes Kasia e Sodium 40 3-16 Seybold MG oral 00:00: - Tablet 00 Externa Delayed l Response Nitrofurant 2022-0 Yes Kasia jonasn Monohyd 3-16 Seybold Macro 100 00:00: - MG oral 00 Externa Capsule l Pantoprazol 2022-0 Yes Kasia vickers Sodium 40 3-16 Seybold MG oral 00:00: - Tablet 00 Externa Delayed l Response Nitrofurant 2022-0 Yes Kasia jonasn Monohyd 3-16 Seybold Macro 100 00:00: - MG oral 00 Externa Capsule l Pantoprazol 2022-0 Yes Kasia vickers Sodium 40 3-16 Seybold MG oral 00:00: - Tablet 00 Externa Delayed l Response Nitrofurant 2022-0 Yes Kasia jonasn Monohyd 3-16 Seybold Macro 100 00:00: - MG oral 00 Externa Capsule l Pantoprazol 2022-0 Yes Kasia vickers Sodium 40 3-16 Seybold MG oral 00:00: - Tablet 00 Externa Delayed l Response Pantoprazol 2022-0 Yes Kasia e Sodium 40 3-16 Seybold MG oral 00:00: - Tablet 00 Externa Delayed l Response Pantoprazol 2022-0 Yes Kasia e Sodium 40 3-16 Seybold MG oral 00:00: - Tablet 00 Externa Delayed l Response Pantoprazol 3-0 Yes Kasia e Sodium 40 3-16 Seybold MG oral 00:00: - Tablet 00 Externa Delayed l Response Nitrofurant 2022-0 2022- No Kelse y oin Monohyd 05-21-02 Seybold Macro 100 00:00: 00:00 - MG oral 00 :00 Externa Capsule l Ertapenem 2022-0 Yes DAILY Kasia (INVANZ) 1 3-15 Seybold g injection 00:00: - Recon Soln 00 Externa l Ertapenem 2022-0 Yes DAILY Kasia (INVANZ) 1 3-15 Seybold g injection 00:00: - Recon Soln 00 Externa l Ertapenem 2022-0 2023- No DAILY Kasia (INVANZ) 1 - 04-05 Seybold g injection 00:00: 00:00 - Recon Soln 00 :00 Externa l Sotalol HCl 2022-0 2022- No 80mg 80 mg Nereyda ey 80 MG oral 05-20 Seybold Tablet 00:00: 00:00 - 00 :00 Externa l Magnesium 2022-0 2022- No 250mg 250 mg Nereyda ey Oxide 250 05-18 Seybold MG oral 00:00: 00:00 - Tablet 00 :00 Externa l Alfuzosin 2022-0 2022- No 1{tbl} 1 tablet K elsey HCl 10 MG 05-14 Seybold oral TABLET 00:00: 00:00 - SR 24 HR 00 :00 Externa l Docusate 2022-0 2022- No 1{tbl} 1 tablet Ke lsey Sodium 100 05-14 Seybold MG oral 00:00: 00:00 - Capsule 00 :00 Externa l Glucose 2022-0 2022- No Use once Kelse y Blood in 05-12 daily to Seybol d vitro Strip 00:00: 00:00 test blood - 00 :00 sugar. Externa l Furosemide 3-0 Yes 20mg Take 20 mg K elsey (LASIX) 20 3-01 by mouth Seybo ld MG oral 00:00: daily - Tablet Externa l Furosemide 3-0 Yes 20mg Take 20 mg K elsey (LASIX) 20 3-01 by mouth Seybo ld MG oral 00:00: daily - Tablet 00 Externa l Furosemide 3-0 Yes 20mg Take 20 mg K elsey (LASIX) 20 3-01 by mouth Seybo ld MG oral 00:00: daily - Tablet 00 Externa l Furosemide 2022-0 Yes 20mg Take 20 mg K elsey (LASIX) 20 3-01 by mouth Seybo ld MG oral 00:00: daily - Tablet 00 Externa l Furosemide 2022-0 Yes 20mg Take 1 Kelse y (LASIX) 20 3- tablet (20 Sey bold MG oral 00:00: mg total) - Tablet 00 by mouth Externa daily l Furosemide 2022-0 Yes 20mg Take 1 Kelse y (LASIX) 20 3- tablet (20 Sey bold MG oral 00:00: mg total) - Tablet 00 by mouth Externa daily l Furosemide 2022-0 Yes 20mg Take 1 Kelse y (LASIX) 20 3- tablet (20 Sey bold MG oral 00:00: mg total) - Tablet 00 by mouth Externa daily l Aspirin 81 2022-0 Yes 81mg Take [...] - 33 Externa l Nitroglycer 2022-0 Yes [id number] 1 to 2 Kasia in 0.4 MG 2-06 tablets Seybold sublingual 00:00: under the - SL Tab 00 tongue at Externa onset of l attack. Repeat as needed up to 3 times. If not relieved CALL 911. Insulin Pen 2022-0 Yes [id number] Takes Kasia Needle 31G 2-06 insulin Seybol d X 5 MM does 00:00: once daily - not apply 00 Externa Misc l Lisinopril 2022-0 Yes [id number] 20mg Take 1 K elsey 20 MG oral 2-06 tablet (20 Sey bold Tablet 00:00: mg total) - 00 by mouth Externa daily l Metformin 2022-0 Yes [id number] 1000mg Take 2 Kasia HCl 500 MG 2-06 tablets Seybol d oral Tablet 00:00: (1,000 mg - 00 total) by Externa mouth in l the morning and 2 tablets (1,000 mg total) in the evening. Take with meals. Insulin 3-0 Yes [id number] Takes up K elsey Glargine 2-06 to 35 Seybold (Basaglar 00:00: units SQ - KwikPen) 00 daily at Externa 100 UNIT/ML bedtime l subcutaneou s Solution Pen-injecto r Nitroglycer 2022-0 Yes [id number] 1 to 2 Kasia in 0.4 MG 2-06 tablets Seybold sublingual 00:00: under the - SL Tab 00 tongue at Externa onset of l attack. Repeat as needed up to 3 times. If not relieved CALL 911. Insulin Pen 2022-0 Yes [id number] Takes Kasia Needle 31G 2-06 insulin Seybol d X 5 MM does 00:00: once daily - not apply 00 Externa Misc l Lisinopril 2022-0 Yes [id number] 20mg Take 1 K elsey 20 MG oral 2-06 tablet (20 Sey bold Tablet 00:00: mg total) - 00 by mouth Externa daily l Metformin 2022-0 Yes [id number] 1000mg Take 2 Kasia HCl 500 MG 2-06 tablets Seybol d oral Tablet 00:00: (1,000 mg - 00 total) by Externa mouth in l the morning and 2 tablets (1,000 mg total) in the evening. Take with meals. Insulin 2022-0 Yes [id number] Takes up K elsey Glargine 2-06 to 35 Seybold (Basaglar 00:00: units SQ - KwikPen) 00 daily at Externa 100 UNIT/ML bedtime l subcutaneou s Solution Pen-injecto r Nitroglycer 2022-0 Yes [id number] 1 to 2 Kasia in 0.4 MG 2-06 tablets Seybold sublingual 00:00: under the - SL Tab 00 tongue at Externa onset of l attack. Repeat as needed up to 3 times. If not relieved CALL 911. Insulin Pen 2022-0 Yes [id number] Takes Kasia Needle 31G 2-06 insulin Seybol d X 5 MM does 00:00: once daily - not apply 00 Externa Misc l Lisinopril 2022-0 Yes [id number] 20mg Take 1 K elsey 20 MG oral 2-06 tablet (20 Sey bold Tablet 00:00: mg total) - 00 by mouth Externa daily l Metformin 2022-0 Yes [id number] 1000mg Take 2 Kasia HCl 500 MG 2-06 tablets Seybol d oral Tablet 00:00: (1,000 mg - 00 total) by Externa mouth in l the morning and 2 tablets (1,000 mg total) in the evening. Take with meals. Insulin 2022-0 Yes [id number] Takes up K elsey Glargine 2-06 to 35 Seybold (Basaglar 00:00: units SQ - KwikPen) 00 daily at Externa 100 UNIT/ML bedtime l subcutaneou s Solution Pen-injecto r Nitroglycer 2022-0 Yes [id number] 1 to 2 Kasia in 0.4 MG 2-06 tablets Seybold sublingual 00:00: under the - SL Tab 00 tongue at Externa onset of l attack. Repeat as needed up to 3 times. If not relieved CALL 911. Insulin Pen 2022-0 Yes [id number] Takes Kasia Needle 31G 2-06 insulin Seybol d X 5 MM does 00:00: once daily - not apply 00 Externa Misc l Lisinopril 2022-0 Yes [id number] 20mg Take 1 K elsey 20 MG oral 2-06 tablet (20 Sey bold Tablet 00:00: mg total) - 00 by mouth Externa daily l Metformin 2022-0 Yes [id number] 1000mg Take 2 Kasia HCl 500 MG 2-06 tablets Seybol d oral Tablet 00:00: (1,000 mg - 00 total) by Externa mouth in l the morning and 2 tablets (1,000 mg total) in the evening. Take with meals. Insulin 2022-0 Yes [id number] Takes up K elsey Glargine 2-06 to 35 Seybold (Basaglar 00:00: units SQ - KwikPen) 00 daily at Externa 100 UNIT/ML bedtime l subcutaneou s Solution Pen-injecto r Nitroglycer 2022-0 Yes [id number] 1 to 2 Kasia in 0.4 MG 2-06 tablets Seybold sublingual 00:00: under the - SL Tab 00 tongue at Externa onset of l attack. Repeat as needed up to 3 times. If not relieved CALL 911. Insulin Pen 2022-0 Yes [id number] Takes Kasia Needle 31G 2-06 insulin Seybol d X 5 MM does 00:00: once daily - not apply 00 Externa Misc l Lisinopril 2022-0 Yes [id number] 20mg Take 1 K elsey 20 MG oral 2-06 tablet (20 Sey bold Tablet 00:00: mg total) - 00 by mouth Externa daily l Metformin 2022-0 Yes [id number] 1000mg Take 2 Kasia HCl 500 MG 2-06 tablets Seybol d oral Tablet 00:00: (1,000 mg - 00 total) by Externa mouth in l the morning and 2 tablets (1,000 mg total) in the evening. Take with meals. Insulin 2022-0 Yes [id number] Takes up K elsey Glargine 2-06 to 35 Seybold (Basaglar 00:00: units SQ - KwikPen) 00 daily at Externa 100 UNIT/ML bedtime l subcutaneou s Solution Pen-injecto r Nitroglycer 2022-0 Yes [id number] 1 to 2 Kasia in 0.4 MG 2-06 tablets Seybold sublingual 00:00: under the - SL Tab 00 tongue at Externa onset of l attack. Repeat as needed up to 3 times. If not relieved CALL 911. Insulin Pen 2022-0 Yes [id number] Takes Kasia Needle 31G 2-06 insulin Seybol d X 5 MM does 00:00: once daily - not apply 00 Externa Misc l Lisinopril 2022-0 Yes [id number] 20mg Take 1 K elsey 20 MG oral 2-06 tablet (20 Sey bold Tablet 00:00: mg total) - 00 by mouth Externa daily l Metformin 2022-0 Yes [id number] 1000mg Take 2 Kasia HCl 500 MG 2-06 tablets Seybol d oral Tablet 00:00: (1,000 mg - 00 total) by Externa mouth in l the morning and 2 tablets (1,000 mg total) in the evening. Take with meals. Insulin 2022-0 Yes [id number] Takes up K elsey Glargine 2-06 to 35 Seybold (Basaglar 00:00: units SQ - KwikPen) 00 daily at Externa 100 UNIT/ML bedtime l subcutaneou s Solution Pen-injecto r Nitroglycer 2022-0 Yes [id number] 1 to 2 Kasia in 0.4 MG 2-06 tablets Seybold sublingual 00:00: under the - SL Tab 00 tongue at Externa onset of l attack. Repeat as needed up to 3 times. If not relieved CALL 911. Lisinopril 2022-0 Yes [id number] 20mg Take 1 K elsey 20 MG oral 2-06 tablet (20 Sey bold Tablet 00:00: mg total) - 00 by mouth Externa daily l Metformin 2022-0 Yes [id number] 1000mg Take 2 Kasia HCl 500 MG 2-06 tablets Seybol d oral Tablet 00:00: (1,000 mg - 00 total) by Externa mouth in l the morning and 2 tablets (1,000 mg total) in the evening. Take with meals. Nitroglycer 2022-0 Yes [id number] 1 to 2 Kasia in 0.4 MG 2-06 tablets Seybold sublingual 00:00: under the - SL Tab 00 tongue at Externa onset of l attack. Repeat as needed up to 3 times. If not relieved CALL 911. Lisinopril 2022-0 Yes [id number] 20mg Take 1 K elsey 20 MG oral 2-06 tablet (20 Sey bold Tablet 00:00: mg total) - 00 by mouth Externa daily l Metformin 2022-0 Yes [id number] 1000mg Take 2 Kasia HCl 500 MG 2-06 tablets Seybol d oral Tablet 00:00: (1,000 mg - 00 total) by Externa mouth in l the morning and 2 tablets (1,000 mg total) in the evening. Take with meals. Nitroglycer 2022-0 Yes [id number] 1 to 2 Kasia in 0.4 MG 2-06 tablets Seybold sublingual 00:00: under the - SL Tab 00 tongue at Externa onset of l attack. Repeat as needed up to 3 times. If not relieved CALL 911. Insulin Pen 2022-0 Yes [id number] Takes Kasia Needle 31G 2-06 insulin Seybol d X 5 MM does 00:00: once daily - not apply 00 Externa Misc l Lisinopril Yes [id number] 20mg Take 1 K elsey 20 MG oral 2-06 tablet (20 Sey bold Tablet 00:00: mg total) - 00 by mouth Externa daily l Metformin Yes [id number] 1000mg Take 2 Kasia HCl 500 MG 2-06 tablets Seybol d oral Tablet 00:00: (1,000 mg - 00 total) by Externa mouth in l the morning and 2 tablets (1,000 mg total) in the evening. Take with meals. Insulin Yes [id number] Takes up K elsey Glargine 2-06 to 35 Seybold (Basaglar 00:00: units SQ - KwikPen) 00 daily at Externa 100 UNIT/ML bedtime l subcutaneou s Solution Pen-injecto r Insulin Pen 2022- No [id number] Takes Kasia Needle 31G 2-08 12-03 insulin Seybo ld X 5 MM does 00:00: 00:00 once daily - not apply 00 :00 Externa Misc l Insulin 2022- No [id number] Takes up Kasia Glargine 2-06 07-03 to 35 Seybold (Basaglar 00:00: 00:00 units SQ - KwikPen) 00 :00 daily at Externa 100 UNIT/ML bedtime l subcutaneou s Solution Pen-injecto r Celecoxib Yes [id number] 200mg Take 1 K elsey 200 MG oral 1-31 capsule Seybo ld Capsule 00:00: (200 mg - 00 total) by Externa mouth 2 l times daily Celecoxib Yes [id number] 200mg Take 1 K elsey 200 MG oral 1-31 capsule Seybo ld Capsule 00:00: (200 mg - 00 total) by Externa mouth 2 l times daily Celecoxib 2022-0 Yes [id number] 200mg Take 1 K elsey 200 MG oral 1-31 capsule Seybo ld Capsule 00:00: (200 mg - 00 total) by Externa mouth 2 l times daily Celecoxib Yes [id number] 200mg Take 1 K elsey 200 MG oral 1-31 capsule Seybo ld Capsule 00:00: (200 mg - 00 total) by Externa mouth 2 l times daily Celecoxib 2023-0 Yes [id number] 200mg Take 1 K elsey 200 MG oral 1-31 capsule Seybo ld Capsule 00:00: (200 mg - 00 total) by Externa mouth 2 l times daily Celecoxib 3-0 Yes [id number] 200mg Take 1 K elsey 200 MG oral 1-31 capsule Seybo ld Capsule 00:00: (200 mg - 00 total) by Externa mouth 2 l times daily Celecoxib 3-0 Yes [id number] 200mg Take 1 K elsey 200 MG oral 1-31 capsule Seybo ld Capsule 00:00: (200 mg - 00 total) by Externa mouth 2 l times daily Celecoxib 3-0 Yes [id number] 200mg Take 1 K elsey 200 MG oral 1-31 capsule Seybo ld Capsule 00:00: (200 mg - 00 total) by Externa mouth 2 l times daily Celecoxib 2022-0 Yes [id number] 200mg Take 1 K elsey 200 MG oral 1-31 capsule Seybo ld Capsule 00:00: (200 mg - 00 total) by Externa mouth 2 l times daily Alfuzosin 2022-0 3- No 1{tbl} Take 1 Killian sey HCl 10 MG 1-25 07-25 tablet by Seyb old oral TABLET 00:00: 04:59 mouth at - SR 24 HR 00 :00 bedtime Externa l Alfuzosin 2022-0 2022- No 1{tbl} Take 1 Killian sey HCl 10 MG 1-25 07-25 tablet by Seyb old oral TABLET 00:00: 04:59 mouth at - SR 24 HR 00 :00 bedtime Externa l Alfuzosin 2022-0 3- No 1{tbl} Take 1 Killian sey HCl 10 MG 1-25 07-25 tablet by Seyb old oral TABLET 00:00: 04:59 mouth at - SR 24 HR 00 :00 bedtime Externa l Alfuzosin 2022-0 3- No 1{tbl} Take 1 Killian sey HCl 10 MG 1-25 07-25 tablet by Seyb old oral TABLET 00:00: 04:59 mouth at - SR 24 HR 00 :00 bedtime Externa l Alfuzosin 2022-0 3- No 1{tbl} Take 1 Killian sey HCl 10 MG 1-25 07-25 tablet by Seyb old oral TABLET 00:00: 04:59 mouth at - SR 24 HR 00 :00 bedtime Externa l Alfuzosin 2023-0 2023- No 10mg Take 1 Kelse y HCl 10 MG -29 09-25 tablet (10 Sey bold oral TABLET 00:00: 04:59 mg total) - SR 24 HR 00 :00 by mouth Externa at bedtime l Alfuzosin 2023-0 2023- No 10mg Take 1 Kelse y HCl 10 MG -25 -25 tablet (10 Sey bold oral TABLET 00:00: 04:59 mg total) - SR 24 HR 00 :00 by mouth Externa at bedtime l Alfuzosin 2023-0 2023- No 10mg Take 1 Kelse y HCl 10 MG -29 09-25 tablet (10 Sey bold oral TABLET 00:00: 04:59 mg total) - SR 24 HR 00 :00 by mouth Externa at bedtime l Alfuzosin Alfuzosin 2023-0 2023- No 1{table QD Alfuzosin HCl ER 10 HCl ER 10 04-01 t_at_be HCl ER 10 MG MG 00:00: 00:00 dtime} MG 00 :00 Aspirin 81 3-0 Yes 81mg Take 81 mg K elsey MG oral 03-13 by mouth Seybold Tablet 16:03: daily - Delayed 18 Externa Response l Magnesium 3-0 Yes 1 tablet Nereyda ey 250 MG oral 03-13 with a Seybol d Tablet 16:03: meal - 18 Externa l Benzonatate 3-0 Yes [id number] 100mg Q.[id number] Take 1 Kasia (Tessalon 1-06 [id number] capsule S eybold Perles) 100 00:00: 3D (100 mg - MG oral 00 total) by Externa Capsule mouth 3 l times daily as needed for cough Benzonatate 2023-0 Yes [id number] 100mg Q.[id number] Take 1 Kasia (Tessalon 1-06 [id number] capsule S eybold Perles) 100 00:00: 3D (100 mg - MG oral 00 total) by Externa Capsule mouth 3 l times daily as needed for cough Azithromyci 2023-0 2023- No [id number] Take 2 Kasia n 250 MG 1-06 02-23 tablets by Seyb old oral Tablet 00:00: 00:00 mouth on - : day 1 then Externa 1 tablet l by mouth daily for 4 days thereafter . Benzonatate 2022- No [id number] 100mg Q.[id number] Take 1 Kasia (Tessalon 03-13 [id number] capsule Seybold Suzanes) 100 00:00: 00:00 3D (100 mg - MG oral 00 :00 total) by Externa Capsule mouth 3 l times daily as needed for cough Azithromyci 2022- No [id number] Take 2 Kasia n 250 MG 03-13 tablets by Seyb old oral Tablet 00:00: 05:59 mouth on - 00 : day 1 then Externa 1 tablet l by mouth daily for 4 days thereafter . Metoprolol 2021-03 Yes [id number] TAKE 1 K elsey Succinate 2-28 TABLET BY Seybo ld 100 MG oral 00:00: MOUTH - TABLET SR 00 EVERY DAY Exter na 24 HR l Metoprolol 2021-03 Yes [id number] TAKE 1 K elsey Succinate 2-28 TABLET BY Seybo ld 100 MG oral 00:00: MOUTH - TABLET SR 00 EVERY DAY Exter na 24 HR l Metoprolol 2021-03 Yes [id number] TAKE 1 K elsey Succinate 2-28 TABLET BY Seybo ld 100 MG oral 00:00: MOUTH - TABLET SR 00 EVERY DAY Exter na 24 HR l Metoprolol 2021-03 Yes [id number] TAKE 1 K elsey Succinate 2-28 TABLET BY Seybo ld 100 MG oral 00:00: MOUTH - TABLET SR 00 EVERY DAY Exter na 24 HR l Ferrous 2021-03 Yes [id number] 325mg TAKE 1 Killian sey Sulfate 325 2-08 TABLET Seybol d (65 Fe) MG 00:00: (325 MG - oral Tablet 00 TOTAL) BY Ext sharlene MOUTH l DAILY (WITH BREAKFAST) Ferrous 2021-03 Yes [id number] 325mg TAKE 1 Killian sey Sulfate 325 2-08 TABLET Seybol d (65 Fe) MG 00:00: (325 MG - oral Tablet 00 TOTAL) BY Ext sharlene MOUTH l DAILY (WITH BREAKFAST) Ferrous 2021-03 Yes [id number] 325mg TAKE 1 Killian sey Sulfate 325 2-08 TABLET Seybol d (65 Fe) MG 00:00: (325 MG - oral Tablet 00 TOTAL) BY Ext sharlene MOUTH l DAILY (WITH BREAKFAST) Ferrous 2021-03 Yes [id number] 325mg TAKE 1 Killian sey Sulfate 325 2-08 TABLET Seybol d (65 Fe) MG 00:00: (325 MG - oral Tablet 00 TOTAL) BY Ext sharlene MOUTH l DAILY (WITH BREAKFAST) Ferrous 2021-03 Yes [id number] 325mg TAKE 1 Killian sey Sulfate 325 2-08 TABLET Seybol d (65 Fe) MG 00:00: (325 MG - oral Tablet 00 TOTAL) BY Ext sharlene MOUTH l DAILY (WITH BREAKFAST) Ferrous 2021-03 Yes [id number] 325mg TAKE 1 Killian sey Sulfate 325 2-08 TABLET Seybol d (65 Fe) MG 00:00: (325 MG - oral Tablet 00 TOTAL) BY Ext sharlene MOUTH l DAILY (WITH BREAKFAST) Ferrous 2021-03 Yes [id number] 325mg TAKE 1 Killian sey Sulfate 325 2-08 TABLET Seybol d (65 Fe) MG 00:00: (325 MG - oral Tablet 00 TOTAL) BY Ext sharlene MOUTH l DAILY (WITH BREAKFAST) Ferrous 2021-03 Yes [id number] 325mg TAKE 1 Killian sey Sulfate 325 2-08 TABLET Seybol d (65 Fe) MG 00:00: (325 MG - oral Tablet 00 TOTAL) BY Ext sharlene MOUTH l DAILY (WITH BREAKFAST) Ferrous 2021-03 Yes [id number] 325mg TAKE 1 Killian sey Sulfate 325 2-08 TABLET Seybol d (65 Fe) MG 00:00: (325 MG - oral Tablet 00 TOTAL) BY Ext sharlene MOUTH l DAILY (WITH BREAKFAST) Ferrous 2021-03 Yes [id number] 325mg TAKE 1 Killian sey Sulfate 325 2-08 TABLET Seybol d (65 Fe) MG 00:00: (325 MG - oral Tablet 00 TOTAL) BY Ext sharlene MOUTH l DAILY (WITH BREAKFAST) Aspirin 81 2021-03 Yes 81mg Take 81 mg K elsey MG oral -22 by mouth Seybold Tablet 13:12: daily - Delayed 19 Externa Response l Magnesium 2021-03 Yes 1 tablet Nereyda ey 250 MG oral 03-29 with a Seybol d Tablet 13:12: meal - 19 Externa l aspirin 81 0 Yes 81mg QD Take [address] [facility] 9-28 by [facility] 11:39: daily. [address] aspirin 81 0 Yes 81mg QD Take [address] MG EC 9-28 [facility] mouth [facility] tablet 11:39: daily. [address] aspirin 81 0 Yes 81mg QD Take [address] MG EC 9-28 [facility] mouth [facility] tablet 11:39: daily. [address] aspirin 81 0 Yes 81mg QD Take [address] MG EC 9-28 [facility] mouth [facility] tablet 11:39: daily. [address] aspirin 81 0 Yes 81mg QD Take [address] MG EC 9-28 [facility] mouth [facility] tablet 11:39: daily. [address] Aspirin 81 0 Yes 81mg Take 81 mg K elsey MG oral 12-02 by mouth Seybold Tablet 13:25: daily - Delayed 42 Externa Response l Magnesium Yes 1 tablet Nereyda ey 250 MG oral 12-02 with a Seybol d Tablet 13:25: meal - 42 Externa l Ondansetron Yes [id number] 4mg Q.[id number] Take 1 Kasia (Zofran 9-27 [id number] tablet (4 S eybold ODT) 4 MG 00:00: 3D mg total) - oral TABLET 00 by mouth Exte rna DISPERSIBLE every 8 l hours as needed for nausea Ondansetron Yes [id number] 4mg Q.[id number] Take 1 Kasia (Zofran 9-27 [id number] tablet (4 S eybold ODT) 4 MG 00:00: 3D mg total) - oral TABLET 00 by mouth Exte rna DISPERSIBLE every 8 l hours as needed for nausea Ondansetron Yes [id number] 4mg Q.[id number] Take 1 Kasia (Zofran 9-27 [id number] tablet (4 S eybold ODT) 4 MG 00:00: 3D mg total) - oral TABLET 00 by mouth Exte rna DISPERSIBLE every 8 l hours as needed for nausea Ondansetron Yes [id number] 4mg Q.[id number] Take 1 Kasia (Zofran 9-27 [id number] tablet (4 S eybold ODT) 4 MG 00:00: 3D mg total) - oral TABLET 00 by mouth Exte rna DISPERSIBLE every 8 l hours as needed for nausea Ondansetron 2021-0 Yes [id number] 4mg Q.[id number] Take 1 Kasia (Zofran 9-27 [id number] tablet (4 S eybold ODT) 4 MG 00:00: 3D mg total) - oral TABLET 00 by mouth Exte rna DISPERSIBLE every 8 l hours as needed for nausea Ondansetron 2021-0 Yes [id number] 4mg Q.99720054 Take 1 Kasia (Zofran 9-27 [id number] tablet (4 S eybold ODT) 4 MG 00:00: 3D mg total) - oral TABLET 00 by mouth Exte rna DISPERSIBLE every 8 l hours as needed for nausea Ondansetron 2021-0 Yes [id number] 4mg Q.[id number] Take 1 Kasia (Zofran 9-27 [id number] tablet (4 S eybold ODT) 4 MG 00:00: 3D mg total) - oral TABLET 00 by mouth Exte rna DISPERSIBLE every 8 l hours as needed for nausea Ondansetron 2021-0 Yes [id number] 4mg Q.[id number] Take 1 Kasia (Zofran 9-27 [id number] tablet (4 S eybold ODT) 4 MG 00:00: 3D mg total) - oral TABLET 00 by mouth Exte rna DISPERSIBLE every 8 l hours as needed for nausea Ondansetron 2021-0 Yes [id number] 4mg Q.[id number] Take 1 Kasia (Zofran 9-27 [id number] tablet (4 S eybold ODT) 4 MG 00:00: 3D mg total) - oral TABLET 00 by mouth Exte rna DISPERSIBLE every 8 l hours as needed for nausea Simethicone 2021-0 Yes [id number] 80mg Q.25D Take 1 Kasia 80 MG oral 9-27 tablet (80 Sey bold Chewable 00:00: mg total) - Tablet 00 by mouth Externa every 6 l hours as needed for flatulence Ondansetron 2021-0 Yes [id number] 4mg Q.[id number] Take 1 Kasia (Zofran 9-27 [id number] tablet (4 S eybold ODT) 4 MG 00:00: 3D mg total) - oral TABLET 00 by mouth Exte rna DISPERSIBLE every 8 l hours as needed for nausea Simethicone 2021-0 Yes [id number] 80mg Q.25D Take 1 Kasia 80 MG oral 9-27 tablet (80 Sey bold Chewable 00:00: mg total) - Tablet 00 by mouth Externa every 6 l hours as needed for flatulence Ondansetron 2021-0 Yes [id number] 4mg Q.[id number] Take 1 Kasia (Zofran 9-27 [id number] tablet (4 S eybold ODT) 4 MG 00:00: 3D mg total) - oral TABLET 00 by mouth Exte rna DISPERSIBLE every 8 l hours as needed for nausea Simethicone 2021-0 Yes [id number] 80mg Q.25D Take 1 Kasia 80 MG oral 9-27 tablet (80 Sey bold Chewable 00:00: mg total) - Tablet 00 by mouth Externa every 6 l hours as needed for flatulence Ondansetron 2021-0 Yes [id number] 4mg Q.[id number] Take 1 Kasia (Zofran 9-27 [id number] tablet (4 S eybold ODT) 4 MG 00:00: 3D mg total) - oral TABLET 00 by mouth Exte rna DISPERSIBLE every 8 l hours as needed for nausea Simethicone 2021-0 Yes [id number] 80mg Q.25D Take 1 Ksaia 80 MG oral 9-27 tablet (80 Sey bold Chewable 00:00: mg total) - Tablet 00 by mouth Externa every 6 l hours as needed for flatulence Simethicone 2021-0 2023- No [id number] 80mg Q.25D Take 1 Kasia 80 MG oral 9-27 - tablet (80 Se ybold Chewable 00:00: 00:00 mg total) - Tablet 00 :00 by mouth Externa every 6 l hours as needed for flatulence amLODIPine 2021-0 Yes 5mg QD Take [address] [facility] (NORVASC) 5 11-06 by mouth [facility] tablet 00:00: daily. Medica [facility] 00 Center Amlodipine 2021-0 Yes [id number] 5mg Take 1 K elsey Besylate 5 11-06 tablet (5 Seyb old MG oral 00:00: mg total) - Tablet 00 by mouth Externa daily l Amlodipine 2021-0 Yes [id number] 5mg Take 1 K elsey Besylate 5 11-06 tablet (5 Seyb old MG oral 00:00: mg total) - Tablet 00 by mouth Externa daily l Amlodipine 2021-0 Yes [id number] 5mg Take 1 K elsey Besylate 5 11-06 tablet (5 Seyb old MG oral 00:00: mg total) - Tablet 00 by mouth Externa daily l Amlodipine 2021-0 Yes [id number] 5mg Take 1 K elsey Besylate 5 11-06 tablet (5 Seyb old MG oral 00:00: mg total) - Tablet 00 by mouth Externa daily l Amlodipine 2021-0 Yes [id number] 5mg Take 1 K elsey Besylate 5 11-06 tablet (5 Seyb old MG oral 00:00: mg total) - Tablet 00 by mouth Externa daily l Amlodipine 2021-0 Yes [id number] 5mg Take 1 K elsey Besylate 5 11-06 tablet (5 Seyb old MG oral 00:00: mg total) - Tablet 00 by mouth Externa daily l Amlodipine 2021-0 Yes [id number] 5mg Take 1 K elsey Besylate 5 11-06 tablet (5 Seyb old MG oral 00:00: mg total) - Tablet 00 by mouth Externa daily l Amlodipine 2021-0 Yes [id number] 5mg Take 1 K elsey Besylate 5 11-06 tablet (5 Seyb old MG oral 00:00: mg total) - Tablet 00 by mouth Externa daily l Amlodipine 2021-0 Yes [id number] 5mg Take 1 K elsey Besylate 5 11-06 tablet (5 Seyb old MG oral 00:00: mg total) - Tablet 00 by mouth Externa daily l Amlodipine 2-0 Yes [id number] 5mg Take 1 K elsey Besylate 5 11-06 tablet (5 Seyb old MG oral 00:00: mg total) - Tablet 00 by mouth Externa daily l amLODIPine 2021-0 Yes 5mg QD Take [address] [facility] [address] [facility] (NORVASC) 5 9-01 by mouth [facility] MG tablet 00:00: daily. Medica 00 [place] amLODIPine 2021-0 Yes 5mg QD Take [address] [facility] [address] [facility] (NORVASC) 5 9- by mouth [facility] MG tablet 00:00: daily. Medica 00 [place] amLODIPine 2-0 Yes 5mg QD Take [address] [facility] [address] [facility] (NORVASC) 5 9- by mouth Luke [facility] MG tablet 00:00: daily. Medica 00 [place] amLODIPine 2-0 Yes 5mg QD Take [address] [facility] [address] [facility] (NORVASC) 5 - by mouth Luke s MG tablet 00:00: daily. Medica l 00 [place] lisinopriL 2-0 Yes 20mg QD Take [address] (PRINIVIL,Z 8-26 by mouth Luke s ESTRIL) 20 00:00: daily. Medic al MG tablet 00 [place] lisinopriL 2021-0 Yes 20mg QD Take [address] (PRINIVIL,Z 8-26 by mouth Luke s ESTRIL) 20 00:00: daily. Medic al MG tablet 00 [place] lisinopriL 2021-0 Yes 20mg QD Take [address] (PRINIVIL,Z 8-26 by mouth Luke s ESTRIL) 20 00:00: daily. Medic al MG tablet 00 [place] lisinopriL 2021-0 Yes 20mg QD Take [address] (PRINIVIL,Z 8-26 by mouth Luke s ESTRIL) 20 00:00: daily. Medic al MG tablet 00 [place] Lisinopril 2-0 Yes [id number] 20mg Take 1 K elsey 20 MG oral 8-26 tablet (20 Sey bold Tablet 00:00: mg total) - 00 by mouth Externa daily l Lisinopril 2-0 Yes [id number] 20mg Take 1 K elsey 20 MG oral 8-26 tablet (20 Sey bold Tablet 00:00: mg total) - 00 by mouth Externa daily l Lisinopril 2-0 Yes [id number] 20mg Take 1 K elsey 20 MG oral 8-26 tablet (20 Sey bold Tablet 00:00: mg total) - 00 by mouth Externa daily l lisinopriL 2022-0 Yes 20mg QD Take [address] (PRINIVIL,Z 10-31 by mouth [facility] ESTRIL) 20 00:00: daily. Medic al MG tablet 00 Center Lisinopril 2022- No [id number] 20mg Take 1 Kasia 20 MG oral [id number] tablet (20 Se ybold Tablet 00:00: 00:00 [...] unit/mL (3 nightly. mL) InPn Insulin Yes [id number] Takes up K elsey Glargine 8-08 to 35 Seybold (Basaglar 00:00: units SQ - KwikPen) 00 daily at Externa 100 UNIT/ML bedtime l subcutaneou s Solution Pen-injecto r Insulin Yes [id number] Takes up K elsey Glargine 8-08 to 35 Seybold (Basaglar 00:00: units SQ - KwikPen) 00 daily at Externa 100 UNIT/ML bedtime l subcutaneou s Solution Pen-injecto r Insulin Yes [id number] Takes up K elsey Glargine 8-08 to 35 Seybold (Basaglar 00:00: units SQ - KwikPen) 00 daily at Externa 100 UNIT/ML bedtime l subcutaneou s Solution Pen-injecto r Basaglar Yes 35U QD Inject [address] [facility] KwikPen 8-08 [facility] 00:00: subcutaneo Medica l Insulin 100 00 usly Center unit/mL (3 nightly. mL) In Insulin 2023- No [id number] Takes up Kasia Glargine 8-08 02-06 to 35 Seybold (Basaglar 00:00: 00:00 units SQ - KwikPen) 00 :00 daily at Externa 100 UNIT/ML bedtime l subcutaneou s Solution Pen-injecto r LISINOPRIL Yes None [facility] 10 MG ORAL 7-23 Entered ity of TAB 18:36: [address] Branch METFORMIN Yes 500mg Take 500 [facility] vers HCL 7-23 mg by [facility] of (METFORMIN 18:[place] 09 (two) Medical times Branch daily. PANTOPRAZOL Yes Take by Uni vers E SODIUM 7-23 mouth. ity of (PROTONIX 18:36: [place] ORAL) Medical Branch CLOPIDOGREL Yes Take by Uni vers BISULFATE 7-23 mouth. ity of (PLAVIX 18:36: [place] ORAL) [address] [place] [address] Branch INSULIN Yes inject [facility] LISPRO 7-23 under the ity of (HUMALOG 18:36: skin. [place]) Medical Branch EMPAGLIFLOZ Yes Take by Uni vers IN 7-23 mouth. ity of (JARDIANCE 18:36: [place] ORAL) Medical Branch LISINOPRIL Yes None [facility] 10 MG ORAL 7-23 Entered ity of TAB 18:36: [place] [address] [place] [address] Branch METFORMIN Yes 500mg Take 500 Uni vers HCL 7-23 mg by [facility] [place] (METFORMIN 18:36[place] 09 (two) Medical times Branch daily. PANTOPRAZOL Yes Take by Uni vers E SODIUM 7-23 mouth. ity of (PROTONIX 18:36: [place] ORAL) Medical Branch CLOPIDOGREL Yes Take by Uni vers BISULFATE 7-23 mouth. ity of (PLAVIX 18:36: [place] ORAL) [address] [place] [address] INSULIN Yes inject [facility] LISPRO 7-23 under the ity of (HUMALOG 18:36: skin. [facility]) Medical Branch EMPAGLIFLOZ Yes Take by Uni vers IN 09-27 mouth. ity of (JARDIANCE 18:36: [place] [facility]) [facility] LISINOPRIL Yes None [facility] 10 MG ORAL - Entered ity of TAB 18:36: [place] 09 Medical Branch METFORMIN Yes 500mg Take 500 Uni vers HCL 7-23 mg by ity of (METFORMIN 18:36: [place] (two) Medical times Branch daily. PANTOPRAZOL Yes Take by Uni vers E SODIUM 09-27 mouth. ity of (PROTONIX 18:36: [place] [facility]) [facility] CLOPIDOGREL Yes Take by Uni vers BISULFATE 09-27 mouth. ity of (PLAVIX 18:36: [place] ORAL) [address] [place] [address] Branch INSULIN Yes inject Univers LISPRO 7- under the ity of (HUMALOG 18:36: skin. [facility]) Medical Branch EMPAGLIFLOZ Yes Take by Uni vers IN 09-27 mouth. ity of (JARDIANCE 18:36: [place] ORAL) [address] [place] [address] Branch atorvastati Yes 20mg QD Take [address] [facility] (LIPIT[facility]) 7-23 by mouth [facility] 20 MG 00:00: daily. Medical tablet 00 [place] atorvastati Yes 20mg QD Take [address] [facility] (LIPITOR) 7-23 by mouth [facility] 20 MG 00:00: daily. Medical tablet [place] atorvastati Yes 20mg QD Take [address] [facility] (LIPITOR) 7-23 by mouth [facility] 20 MG 00:00: daily. Medical tablet [place] atorvastati Yes 20mg QD Take [address] [facility] (LIPITOR) 7-23 by mouth [facility] 20 MG 00:00: daily. Medical tablet [place] atorvastati Yes 20mg QD Take [address] [facility] (LIPITOR) 7-23 by mouth [facility] 20 MG 00:00: daily. Medical tablet [place] molnupiravi Yes [id number] 800mg Take 4 Univers r 200 mg 7-23 capsules ity of capsule 00:00: by mouth [place] 00 every 12 Medical (twelve) Branch hours. molnupiravi 2021-0 Yes [id number] 800mg Take 4 [facility] r 200 mg 7-23 capsules ity of capsule 00:00: by mouth [place] 00 every 12 Medical (twelve) Branch hours. molnupiravi 2021-0 Yes [id number] 800mg Take 4 [facility] r 200 mg 7-23 capsules ity of capsule 00:00: by mouth [place] 00 every 12 Medical (twelve) Branch hours. molnupiravi 2021-0 2022- No [id number] 800mg Take 4 [facility] r 200 mg 7-23 07-23 capsules ity of capsule 00:00: 00:00 by mouth [place] 00 :00 every 12 Medical (twelve) Branch hours. pantoprazol 2021-0 Yes 20mg QD Take [address] [facility] 7-12 by [facility] (PROTONIX) [facility]: daily. Medic al 20 MG 00 Center tablet pantoprazol 2021-0 Yes 20mg QD Take [address] [facility] 7-12 by mouth [facility] (PROTONIX) 00:00: daily. Medic al 20 MG 00 Center tablet pantoprazol 2021-0 Yes 20mg QD Take [address] [facility] 7-12 by mouth [facility] (PROTONIX) 00:00: daily. Medic al 20 MG 00 Center tablet pantoprazol 2021-0 Yes 20mg QD Take [address] [facility] 7-12 by mouth [facility] (PROTONIX) 00:00: daily. Medic al 20 MG 00 Center tablet Atorvastati 2021-0 Yes [id number] 20mg Take 1 [facility] n Calcium 7-12 tablet (20 Seyb old 20 MG oral 00:00: mg total) - Tablet 00 by mouth Externa daily l Pantoprazol 2021-0 Yes [id number] 20mg Take 1 [facility] e Sodium 20 7-12 tablet (20 Se ybold MG oral 00:00: mg total) - Tablet 00 by mouth Externa Delayed daily l Response Atorvastati 2021-0 Yes [id number] 20mg Take 1 [facility] n Calcium 7-12 tablet (20 Seyb old 20 MG oral 00:00: mg total) - Tablet 00 by mouth Externa daily l Atorvastati 2022-0 Yes [id number] 20mg Take 1 [facility] n Calcium 7-12 tablet (20 Seyb old 20 MG oral 00:00: mg total) - Tablet 00 by mouth Externa daily l Atorvastati 2021-0 Yes [id number] 20mg Take 1 [facility] n Calcium 7-12 tablet (20 Seyb old 20 MG oral 00:00: mg total) - Tablet 00 by mouth Externa daily l Atorvastati 2021-0 Yes [id number] 20mg Take 1 K[facility] n Calcium 7-12 tablet (20 Seyb old 20 MG oral 00:00: mg total) - Tablet 00 by mouth Externa daily l Atorvastati 2021-0 Yes [id number] 20mg Take 1 [facility] n Calcium 7-12 tablet (20 Seyb old 20 MG oral 00:00: mg total) - Tablet 00 by mouth Externa daily l Atorvastati 0 Yes [id number] 20mg Take 1 [facility] n Calcium 7-12 tablet (20 Seyb old 20 MG oral 00:00: mg total) - Tablet 00 by mouth Externa daily l Pantoprazol 2021-0 Yes [id number] 20mg Take 1 Kasia e Sodium 20 7-12 tablet (20 Se ybold MG oral 00:00: mg total) - Tablet 00 by mouth Externa Delayed daily l Response Atorvastati Yes [id number] 20mg Take 1 K[facility] n Calcium 7-12 tablet (20 Seyb old 20 MG oral 00:00: mg total) - Tablet 00 by mouth Externa daily l Pantoprazol 2021-0 Yes [id number] 20mg Take 1 Kasia e Sodium 20 7-12 tablet (20 Se ybold MG oral 00:00: mg total) - Tablet 00 by mouth Externa Delayed daily l Response Atorvastati 2021-0 Yes [id number] 20mg Take 1 Kasia n Calcium 7-12 tablet (20 Seyb old 20 MG oral 00:00: mg total) - Tablet 00 by mouth Externa daily l Pantoprazol 2021-0 Yes [id number] 20mg Take 1 K[facility] e Sodium 20 7-12 tablet (20 Se ybold MG oral 00:00: mg total) - Tablet 00 by mouth Externa Delayed daily l Response Atorvastati 2021-0 Yes [id number] 20mg Take 1 K[facility] n Calcium 7-12 tablet (20 Seyb old 20 MG oral 00:00: mg total) - Tablet 00 by mouth Externa daily l Pantoprazol Yes [id number] 20mg Take 1 [facility] e Sodium 20 7-12 tablet (20 Se ybold MG oral 00:00: mg total) - Tablet 00 by mouth Externa Delayed daily l Response pantoprazol Yes 20mg QD Take [address] [facility] 7-12 by [facility] (PROTONIX) 00:00: daily. Medic al 20 MG 00 Center tablet Atorvastati 2022- No [id number] 20mg Take 1 Kasia n Calcium 7-12 07-03 tablet (20 Sey bold 20 MG oral 00:00: 00:00 mg total) - Tablet 00 :00 by mouth Externa daily l Pantoprazol 2022- No [id number] 20mg Take 1 Kasia e Sodium 20 7-12 03-17 tablet (20 S eybold MG oral 00:00: 00:00 mg total) - Tablet 00 :00 by mouth Externa Delayed daily l Response [...] Externa TO DENTAL l APPOINTMEN T Amoxicillin 2022- No TAKE 4 Killian sey 500 MG oral 7-08 02-23 CAPSULES Sey bold Capsule 00:00: 00:00 BY MOUTH 1 - 00 :00 HOUR PRIOR Externa TO DENTAL l APPOINTMEN T Phenazopyri Yes [id number] 200mg Q.[id number] Take 1 Kasia dine HCl - [id number] tablet Sey bold 200 MG oral 00:00: 3D (200 mg - Tablet 00 total) by Externa mouth 3 l times daily as needed for pain Phenazopyri 2021-0 Yes [id number] 200mg Q.[id number] Take 1 Kasia dine HCl 7- [id number] tablet Sey bold 200 MG oral 00:00: 3D (200 mg - Tablet 00 total) by Externa mouth 3 l times daily as needed for pain Phenazopyri 2021-0 Yes [id number] 200mg Q.[id number] Take 1 K[facility] dine HCl 7- [id number] tablet Sey bold 200 MG oral 00:00: 3D (200 mg - Tablet 00 total) by Externa mouth 3 l times daily as needed for pain Phenazopyri 2021-0 Yes [id number] 200mg Q.[id number] Take 1 Kasia dine HCl 7- [id number] tablet Sey bold 200 MG oral 00:00: 3D (200 mg - Tablet 00 total) by Externa mouth 3 l times daily as needed for pain Phenazopyri 2021-0 3- No [id number] 200mg Q.[id number] Take 1 Kasia dine HCl 7- 02- [id number] tablet Se ybold 200 MG oral 00:00: 00:00 3D (200 mg - Tablet 00 :00 total) by Externa mouth 3 l times daily as needed for pain guaiFENesin 2021-0 Yes [id number] 5mL Q.[id number] Take 5 mL Kasia -Codeine 6-15 [id number] by mouth 3 Seybold 100-10 00:00: 3D times - MG/5ML oral 00 daily as Exte rna Syrup needed for l cough guaiFENesin 2021-0 Yes [id number] 5mL Q.09523037 Take 5 mL Kasia -Codeine 6-15 [id number] by mouth 3 Seybold 100-10 00:00: 3D times - MG/5ML oral 00 daily as Exte rna Syrup needed for l cough guaiFENesin 2021-0 Yes [id number] 5mL Q.[id number] Take 5 mL Kasia -Codeine 6-15 [id number] by mouth 3 Seybold 100-10 00:00: 3D times - MG/5ML oral 00 daily as Exte rna Syrup needed for l cough guaiFENesin Yes [id number] 5mL Q.[id number] Take 5 mL Kasia -Codeine 6-15 [id number] by mouth 3 Seybold 100-10 00:00: 3D times - MG/5ML oral 00 daily as Exte rna Syrup needed for l cough guaiFENesin 0 2022- No [id number] 5mL Q.[id number] Take 5 mL Kasia -Codeine 6-15 04-30 [id number] by mouth 3 Seybold 100-10 00:00: 00:00 3D times - MG/5ML oral 00 :00 daily as Exte rna Syrup needed for l cough Aspirin 81 Yes 81mg Take 81 mg K elsey MG oral 6-06 by mouth Seybold Tablet 14:14: daily Delayed 01 Response Magnesium Yes 1 tablet Nereyda ey 250 MG oral 06 with a Seybol d Tablet 14:14: meal 01 Lansoprazol Yes 30mg Take 30 mg Kasia e 30 MG 6-06 by mouth Seybold oral 14:14: daily Delayed 01 Release Capsule Amoxicillin Yes [id number] 1{tbl} Take 1 Kasia -Pot 6-06 tablet by Seybold Clavulanate 00:00: mouth in 875-125 MG 00 the oral Tablet morning and 1 tablet in the evening. Pseudoeph-B Yes [id number] 10mL Q.25D Take 10 mL Kasia romphen-DM 6-06 by mouth 4 Sey bold (Bromfed 00:00: times DM) 30-2-10 00 daily as MG/5ML oral needed Syrup Atorvastati Yes [id number] 20mg Take 2 Kasia n Calcium 6-06 tablets Seybold 10 MG oral 00:00: (20 mg Tablet 00 total) by mouth daily Alfuzosin 2021- No every 24 Killian sey HCl 10 MG -02 11-29 hours Seybold oral TABLET 00:00: 05:59 SR 24 HR 00 :00 Alfuzosin Alfuzosin 2021- No 1{table QD Alfuzosin HCl ER 10 HCl ER 10 6-04 18-28 t_immed HCl ER 10 MG MG 00:00: [...] daily Delayed 59 Release Capsule Insulin Yes [id number] Takes up K elsey Glargine 5-16 to 30 Seybold (Basaglar 00:00: units SQ KwikPen) 00 daily at 100 UNIT/ML bedtime subcutaneou s Solution Pen-injecto r Metformin Yes [id number] 1000mg Take 2 Kasia HCl 500 MG 5-16 tablets Seybol d oral Tablet 00:00: (1,000 mg 00 total) by mouth in the morning and 2 tablets (1,000 mg total) in the evening. Take with meals. Insulin Pen Yes [id number] Takes Kasia Needle 31G 5-16 insulin Seybol d X 5 MM does 00:00: once daily not apply 00 Misc Empaglifloz Yes [id number] 10mg Take 10 mg Kasia in 5-16 by mouth Seybold (Jardiance) 00:00: daily 10 MG oral 00 Tablet Continuous Yes [id number] Every 2 Kasia Blood Gluc 5-16 week Seybold Sensor 00:00: sensor (FreeStyle 00 changes Farhana 14 Day Sensor) does not apply Misc Continuous Yes [id number] Use as K elsey Blood Gluc 5-16 directed Seybo ld [employer] 00:00: (FreeStyle 00 Farhana 14 Day [place]) does not apply Device Insulin Yes [id number] Takes up K elsey Glargine 5-16 to 30 Seybold (Basaglar 00:00: units SQ KwikPen) 00 daily at 100 UNIT/ML bedtime subcutaneou s Solution Pen-injecto r Metformin Yes [id number] 1000mg Take 2 Kasia HCl 500 MG 5-16 tablets Seybol d oral Tablet 00:00: (1,000 mg 00 total) by mouth in the morning and 2 tablets (1,000 mg total) in the evening. Take with meals. Insulin Pen Yes [id number] Takes Kasia Needle 31G 5-16 insulin Seybol d X 5 MM does 00:00: once daily not apply 00 Misc Empaglifloz Yes [id number] 10mg Take 10 mg Kasia in 5-16 by mouth Seybold (Jardiance) 00:00: daily 10 MG oral 00 Tablet Continuous Yes [id number] Every 2 Kasia Blood Gluc 5-16 week Seybold Sensor 00:00: sensor (FreeStyle 00 changes Farhana 14 Day Sensor) does not apply Misc Continuous Yes [id number] Use as K elsey Blood Gluc 5-16 directed Seybo ld [employer] 00:00: (FreeStyle 00 Farhana 14 Day [place]) does not apply Device Metformin Yes [id number] 1000mg Take 2 Kasia HCl 500 MG 5-16 tablets Seybol d oral Tablet 00:00: (1,000 mg - 00 total) by Externa mouth in l the morning and 2 tablets (1,000 mg total) in the evening. Take with meals. Insulin Pen Yes [id number] Takes Kasia Needle 31G 5-16 insulin Seybol d X 5 MM does 00:00: once daily - not apply 00 Externa Mis l Metformin Yes [id number] 1000mg Take 2 Kasia HCl 500 MG 5-16 tablets Seybol d oral Tablet 00:00: (1,000 mg - 00 total) by Externa mouth in l the morning and 2 tablets (1,000 mg total) in the evening. Take with meals. Insulin Pen Yes [id number] Takes Kasia Needle 31G 5-16 insulin Seybol d X 5 MM does 00:00: once daily - not apply 00 Externa Mis l Metformin Yes [id number] 1000mg Take 2 Kasia HCl 500 MG 5-16 tablets Seybol d oral Tablet 00:00: (1,000 mg - 00 total) by Externa mouth in l the morning and 2 tablets (1,000 mg total) in the evening. Take with meals. Insulin Pen Yes [id number] Takes Kasia Needle 31G 5-16 insulin Seybol d X 5 MM does 00:00: once daily - not apply 00 Externa Mis l Metformin 2022- No [id number] 1000mg Take 2 Kasia HCl 500 MG 5-16 02-06 tablets Seybo ld oral Tablet 00:00: 00:00 (1,000 mg - 00 :00 total) by Externa mouth in l the morning and 2 tablets (1,000 mg total) in the evening. Take with meals. Insulin Pen 2022- No [id number] Takes Kasia Needle 31G 5-16 02-06 insulin Seybo ld X 5 MM does 00:00: 00:00 once daily - not apply 00 :00 Externa [facility] [place] Insulin 2021- No [id number] 20U Inject 20 Kasia Aspart Prot 4-28 [...] Delayed 31 Release Capsule Insulin 2021- No [id number] 20U Inject 20 Kasia Lispro Prot 4-14 07-14 units into S eybold & Lispro 00:00: 04:59 the skin (HUMALOG 00 :00 in the KWIKPEN) morning (75-25) 100 and 20 UNIT/ML units in subcutaneou the s evening. Suspension Pen-injecto r Insulin 2021- No [id number] 25 units K elsey Glargine 4-05 04-14 [...] :00 daily Health) oral Capsule Docusate Yes [id number] 100mg Take 100 Kasia Sodium 100 3-17 mg by Seybold MG oral 00:00: mouth - Tablet 00 daily Externa l Docusate Yes [id number] 100mg Take 100 Kasia Sodium 100 3-17 mg by Seybold MG oral 00:00: mouth - Tablet 00 daily Externa l Docusate 2021-0 Yes [id number] 100mg Take 100 Kasia Sodium 100 3-17 mg by Seybold MG oral 00:00: mouth - Tablet 00 daily Externa l Docusate 2021-0 Yes [id number] 100mg Take 100 Kasia Sodium 100 3-17 mg by Seybold MG oral 00:00: mouth - Tablet 00 daily Externa l Docusate 2021-0 Yes [id number] 100mg Take 100 Kasia Sodium 100 3-17 mg by Seybold MG oral 00:00: mouth - Tablet 00 daily Externa l Docusate 2021-0 Yes [id number] 100mg Take 100 Kasia Sodium 100 3-17 mg by Seybold MG oral 00:00: mouth - Tablet 00 daily Externa l Docusate 2021-0 Yes [id number] 100mg Take 100 Kasia Sodium 100 3-17 mg by Seybold MG oral 00:00: mouth - Tablet 00 daily Externa l Docusate 2021-0 Yes [id number] 100mg Take 100 Kasia Sodium 100 3-17 mg by Seybold MG oral 00:00: mouth - Tablet 00 daily Externa l Docusate 2021-0 Yes [id number] 100mg Take 100 Kasia Sodium 100 3-17 mg by Seybold MG oral 00:00: mouth Tablet 00 daily Docusate 2021-0 Yes [id number] 100mg Take 100 Kasia Sodium 100 3-17 mg by Seybold MG oral 00:00: mouth Tablet 00 daily Docusate 2021-0 Yes [id number] 100mg Take 100 Kasia Sodium 100 3-17 mg by Seybold MG oral 00:00: mouth Tablet 00 daily Docusate 2021-0 Yes [id number] 100mg Take 100 Kasia Sodium 100 3-17 mg by Seybold MG oral 00:00: mouth Tablet 00 daily Docusate 2021-0 Yes [id number] 100mg Take 100 Kasia Sodium 100 3-17 mg by Seybold MG oral 00:00: mouth - Tablet 00 daily Externa l Docusate 2021-0 Yes [id number] 100mg Take 100 Kasia Sodium 100 3-17 mg by Seybold MG oral 00:00: mouth - Tablet 00 daily Externa l Docusate 0 Yes [id number] 100mg Take 100 Kasia Sodium 100 3-17 mg by Seybold MG oral 00:00: mouth - Tablet 00 daily Externa l Docusate 0 Yes [id number] 100mg Take 100 Kasia Sodium 100 3-17 mg by Seybold MG oral 00:00: mouth - Tablet 00 daily Externa l Metformin 0 Yes [id number] 1000mg TAKE 2 Kasia HCl 500 MG 3-15 TABLETS Seybol d oral Tablet 00:00: (1,000 MG 00 TOTAL) BY MOUTH 2 TIMES DAILY (WITH MEALS) Metformin 0 Yes [id number] 1000mg TAKE 2 Kasia HCl 500 MG 3-15 TABLETS Seybol d oral Tablet 00:00: (1,000 MG 00 TOTAL) BY MOUTH 2 TIMES DAILY (WITH MEALS) Metformin 0 2021- No [id number] 1000mg TAKE 2 Kasia HCl 500 MG 3-15 05-16 TABLETS Seybo ld oral Tablet 00:00: 00:00 (1,000 MG 00 :00 TOTAL) BY MOUTH 2 TIMES DAILY (WITH MEALS) Lactobacill Yes 1{capsu Take 1 K elsey us-Inulin 2-11 le} capsule by Seyb old (Culturelle 09:08: mouth Digestive 13 daily Health) oral Capsule Aspirin Yes 81mg Take 81 mg Nereyda ey (Aspirin 2-11 by mouth Seybold 81) 81 MG 09:08: daily oral Tablet 13 Delayed Response Magnesium 0 Yes 1 tablet Nereyda ey 250 MG oral 2-11 with a Seybol d Tablet 09:08: meal 13 Insulin 0 Yes [id number] 25 units Ke lsey Glargine 2-11 SQ daily. Seybol d (Lantus 00:00: SoloStar) 00 100 UNIT/ML subcutaneou s Solution Pen-injecto r Insulin 0 Yes [id number] 25 units Ke lsey Glargine 2-11 SQ daily. Seybol d (Lantus 00:00: SoloStar) 00 100 UNIT/ML subcutaneou s Solution Pen-injecto r Triamcinolo 0 2021- No [id number] Apply to Kasia ne 2-11 -12 area 2 Seybold Acetonide 00:00: 05:59 times 0.1 % apply 00 :00 daily for externally 2 weeks Cream OZEMPIC 2021- No [id number] .25mg Inject Ke lsey (0.25 or 04-18 0.25 mg Seybold 0.5 00:00: 00:00 into the mg/dose) 2 00 :00 skin once mg/1.5 mL a week SQ Solution Pen-Injecto r Insulin 2021- No [id number] 25 units K elsey Glargine 04-18 SQ daily. Seybo ld (Lantus 00:00: 00:00 SoloStar) 00 :00 100 UNIT/ML subcutaneou s Solution Pen-injecto r Pantoprazol Yes [id number] 20mg Take 1 Kasia e Sodium 20 1-17 tablet (20 Se ybold MG oral 00:00: mg total) Tablet 00 by mouth Delayed daily Response Pantoprazol 2021-0 Yes [id number] 20mg Take 1 Kasia e Sodium 20 1-17 tablet (20 Se ybold MG oral 00:00: mg total) Tablet 00 by mouth Delayed daily Response Blood 2021-0 Yes Kasia Glucose 1-17 Seybold Calibration 00:00: (True 00 Metrix Level 1) Low in vitro Solution Pantoprazol 2021-0 Yes [id number] 20mg Take 1 Kasia e Sodium 20 1-17 tablet (20 Se ybold MG oral 00:00: mg total) Tablet 00 by mouth Delayed daily Response Blood 2021-0 Yes Kasia Glucose 1-17 Seybold Calibration 00:00: (True 00 Metrix Level 1) Low in vitro Solution Pantoprazol 2021-0 Yes [id number] 20mg Take 1 Kasia e Sodium 20 1-17 tablet (20 Se ybold MG oral 00:00: mg total) Tablet 00 by mouth Delayed daily Response Blood 2021-0 Yes Kasia Glucose 1-17 Seybold Calibration 00:00: (True 00 Metrix Level 1) Low in vitro Solution Pantoprazol 2021-0 Yes [id number] 20mg Take 1 Kasia e Sodium 20 1-17 tablet (20 Se ybold MG oral 00:00: mg total) Tablet 00 by mouth Delayed daily Response Blood 2021-0 Yes Kasia Glucose 1-17 Seybold Calibration 00:00: (True 00 Metrix Level 1) Low in vitro Solution Blood Yes Kasia Glucose 1-17 Seybold Calibration 00:00: - (True 00 Externa Metrix l Level 1) Low in vitro Solution Blood Yes Kasia Glucose 1-17 Seybold Calibration 00:00: - (True 00 Externa Metrix l Level 1) Low in vitro Solution Blood Yes Kasia Glucose 1-17 Seybold Calibration 00:00: - (True 00 Externa Metrix l Level 1) Low in vitro Solution Blood Yes Kasia Glucose 1-17 Seybold Calibration 00:00: - (True 00 Externa Metrix l Level 1) Low in vitro Solution Blood 2023- No Kasia Glucose 1-17 - Seybold Calibration 00:00: 00:00 - (True 00 :00 Externa Metrix l Level 1) Low in vitro Solution metoprolol Yes 100mg QD Take 100 [facility] [...] capsule 00 (two) Center times daily. metoprolol Yes 100mg QD Take [address] succinate 1-13 mg by [facility] (TOPROL-XL) 00:00: mouth Medic al 100 MG 24 00 daily. Center hr tablet TRUEplus Yes [id number] 1{each} 1 each by Kasia Lancets 33G 1-13 does not Seyb old does not 00:00: apply - apply Misc 00 route 3 [employer] a times l daily Alcohol Yes [id number] Use as Nereyda ey Swabs (B-D 1-13 directed Seybo ld SINGLE USE 00:00: three - SWABS 00 times Externa REGULAR) daily l does not apply Pads TRUEplus Yes [id number] 1{each} 1 each by Kasia Evans 33G 1-13 does not Seyb old does not 00:00: apply - apply Misc 00 route 3 [employer] a times l daily Alcohol 2022-0 Yes [id number] Use as Nereyda ey Swabs (B-D 1-13 directed Seybo ld SINGLE USE 00:00: three - SWABS 00 times Externa REGULAR) daily l does not apply Pads TRUEplus 2022-0 Yes [id number] 1{each} 1 each by Kasia Evans 33G -13 does not Seyb old does not 00:00: apply - apply Misc 00 route 3 [employer] a times l daily Alcohol 2021-0 Yes [id number] Use as Nereyda ey Swabs (B-D - directed Seybo ld SINGLE USE 00:00: three - SWABS 00 times Externa REGULAR) daily l does not apply Pads TRUEplus 2022-0 Yes [id number] 1{each} 1 each by Kasia Juanyanna 33G -13 does not Seyb old does not 00:00: apply - apply Misc 00 route 3 [employer] a times l daily Alcohol 2021-0 Yes [id number] Use as Nereyda ey Swabs (B-D 03-20 directed Seybo ld SINGLE USE 00:00: three - SWABS 00 times Externa REGULAR) daily l does not apply Pads TRUEplus 2022-0 Yes [id number] 1{each} 1 each by Kasia Evans 33G -13 does not Seyb old does not 00:00: apply - apply Misc 00 route 3 [employer] a times l daily Alcohol 2022-0 Yes [id number] Use as Nereyda ey Swabs (B-D -13 directed Seybo ld SINGLE USE 00:00: three - SWABS 00 times Externa REGULAR) daily l does not apply Pads TRUEplus 2022-0 Yes [id number] 1{each} 1 each by Kasia Evans 33G -13 does not Seyb old does not 00:00: apply - apply Misc 00 route 3 [employer] a times l daily Alcohol 2022-0 Yes [id number] Use as Nereyda ey Swabs (B-D 1-13 directed Seybo ld SINGLE USE 00:00: three - SWABS 00 times Externa REGULAR) daily l does not apply Pads TRUEplus 2022-0 Yes [id number] 1{each} 1 each by Kasia Lancets 33G 1-13 does not Seyb old does not 00:00: apply - apply Misc 00 route 3 [employer] a times l daily Alcohol Yes [id number] Use as Nereyda ey Swabs (B-D - directed Seybo ld SINGLE USE 00:00: three - SWABS 00 times Externa REGULAR) daily l does not apply Pads TRUEplus Yes [id number] 1{each} 1 each by Kasia Lancets 33G -13 does not Seyb old does not 00:00: apply - apply Misc 00 route 3 [employer] a times l daily ferrous Yes 325mg QD Take 325 [facility] sulfate 325 1-13 mg by Lureinaldo (65 FE) MG 00:00: mouth Medica l tablet 00 daily. Center Alcohol Yes [id number] Use as Nereyda ey Swabs (B-D 03-20 directed Seybo ld SINGLE USE 00:00: three - SWABS 00 times Externa REGULAR) daily l does not apply Pads Amlodipine Yes [id number] 5mg Take 1 K elsey Besylate 5 1-13 tablet (5 Seyb old MG oral 00:00: mg total) Tablet 00 by mouth daily Celecoxib Yes [id number] 200mg Take 1 K elsey 200 MG oral 1-13 capsule Seybo ld Capsule 00:00: (200 mg 00 total) by mouth 2 times daily Rosuvastati Yes [id number] 10mg Take 1 Kasia n Calcium 1-13 tablet (10 Seyb old 10 MG oral 00:00: mg total) Tablet 00 by mouth daily Lisinopril Yes [id number] 20mg Take 1 K elsey 20 MG oral 1-13 tablet (20 Sey bold Tablet 00:00: mg total) 00 by mouth daily Ferrous Yes [id number] 325mg Take 1 Killian sey Sulfate 325 1-13 tablet Seybol d (65 Fe) MG 00:00: (325 mg oral Tablet 00 total) by mouth daily (with breakfast) TRUEplus Yes [id number] 1{each} 1 each by Kasia Lancets 33G 1-13 does not Seyb old does not 00:00: apply apply Misc 00 route 3 times daily Alcohol Yes [id number] Use as Nereyda ey Swabs (B-D - directed Seybo ld SINGLE USE 00:00: three SWABS 00 times REGULAR) daily does not apply Pads Glucose Yes [id number] Use as Nereyda ey Blood in 03-20 directed Seybold vitro Strip 00:00: three 00 times daily Metoprolol Yes [id number] 100mg Take 1 Kasia Succinate 1-13 tablet Seybold 100 MG oral 00:00: (100 mg TABLET SR 00 total) by 24 HR mouth daily Blood Yes [id number] 1{each} 1 each by Kasia Glucose - does not Seybold Monitoring 00:00: apply Suppl (True 00 route 3 Metrix times Meter) daily USE w/Device does not DIRECTED apply Kit TO CHECK BLOOD SUGAR THREE TIMES DAILY Amlodipine Yes [id number] 5mg Take 1 K elsey Besylate 5 -13 tablet (5 Seyb old MG oral 00:00: mg total) Tablet 00 by mouth daily Celecoxib Yes [id number] 200mg Take 1 K elsey 200 MG oral 1-13 capsule Seybo ld Capsule 00:00: (200 mg 00 total) by mouth 2 times daily Rosuvastati Yes [id number] 10mg Take 1 Kasia n Calcium 1-13 tablet (10 Seyb old 10 MG oral 00:00: mg total) Tablet 00 by mouth daily Lisinopril Yes [id number] 20mg Take 1 K elsey 20 MG oral 1-13 tablet (20 Sey bold Tablet 00:00: mg total) 00 by mouth daily Ferrous Yes [id number] 325mg Take 1 Killian sey Sulfate 325 -13 tablet Seybol d (65 Fe) MG 00:00: (325 mg oral Tablet 00 total) by mouth daily (with breakfast) TRUEplus Yes [id number] 1{each} 1 each by Kasia Lancets 33G - does not Seyb old does not 00:00: apply apply Misc 00 route 3 times daily Alcohol Yes [id number] Use as Nereyda ey Swabs (B-D -13 directed Seybo ld SINGLE USE 00:00: three SWABS 00 times REGULAR) daily does not apply Pads Metoprolol Yes [id number] 100mg Take 1 Kasia Succinate 1-13 tablet Seybold 100 MG oral 00:00: (100 mg TABLET SR 00 total) by 24 HR mouth daily Blood Yes [id number] 1{each} 1 each by Kasia Glucose 1-13 does not Seybold Monitoring 00:00: apply Suppl (True 00 route 3 Metrix times Meter) daily USE w/Device does not DIRECTED apply Kit TO CHECK BLOOD SUGAR THREE TIMES DAILY celecoxib Yes 200mg Q.5D Take [address] [facility] [address] (CeleBREX) 1-13 [facility] MG 00:00: mouth 2 Medical capsule 00 (two) Center times daily. Amlodipine Yes [id number] 5mg Take 1 K elsey Besylate 5 1-13 tablet (5 Seyb old MG oral 00:00: mg total) Tablet 00 by mouth daily Celecoxib Yes [id number] 200mg Take 1 K elsey 200 MG oral 1-13 capsule Seybo ld Capsule 00:00: (200 mg 00 total) by mouth 2 times daily Rosuvastati Yes [id number] 10mg Take 1 Kasia n Calcium 1-13 tablet (10 Seyb old 10 MG oral 00:00: mg total) Tablet 00 by mouth daily Lisinopril Yes [id number] 20mg Take 1 K elsey 20 MG oral 1-13 tablet (20 Sey bold Tablet 00:00: mg total) 00 by mouth daily Ferrous Yes [id number] 325mg Take 1 Killian sey Sulfate 325 1-13 tablet Seybol d (65 Fe) MG 00:00: (325 mg oral Tablet 00 total) by mouth daily (with breakfast) TRUEplus Yes [id number] 1{each} 1 each by Kasia Lancets 33G 1-13 does not Seyb old does not 00:00: apply apply Misc 00 route 3 times daily Alcohol Yes [id number] Use as Nereyda ey Swabs (B-D 1-13 directed Seybo ld SINGLE USE 00:00: three SWABS 00 times REGULAR) daily does not apply Pads Metoprolol Yes [id number] 100mg Take 1 Kasia Succinate 1-13 tablet Seybold 100 MG oral 00:00: (100 mg TABLET SR 00 total) by 24 HR mouth daily Blood 0 Yes [id number] 1{each} 1 each by Kasia Glucose 1-13 does not Seybold Monitoring 00:00: apply Suppl (True 00 route 3 Metrix times Meter) daily USE w/Device does not DIRECTED apply Kit TO CHECK BLOOD SUGAR THREE TIMES DAILY Amlodipine Yes [id number] 5mg Take 1 K elsey Besylate 5 1-13 tablet (5 Seyb old MG oral 00:00: mg total) Tablet 00 by mouth daily Celecoxib Yes [id number] 200mg Take 1 K elsey 200 MG oral 1-13 capsule Seybo ld Capsule 00:00: (200 mg 00 total) by mouth 2 times daily Rosuvastati Yes [id number] 10mg Take 1 Kasia n Calcium 1-13 tablet (10 Seyb old 10 MG oral 00:00: mg total) Tablet 00 by mouth daily Lisinopril Yes [id number] 20mg Take 1 K elsey 20 MG oral 1-13 tablet (20 Sey bold Tablet 00:00: mg total) 00 by mouth daily Ferrous Yes [id number] 325mg Take 1 Killian sey Sulfate 325 -13 tablet Seybol d (65 Fe) MG 00:00: (325 mg oral Tablet 00 total) by mouth daily (with breakfast) TRUEplus Yes [id number] 1{each} 1 each by Kasia Lancets 33G 1-13 does not Seyb old does not 00:00: apply apply Misc 00 route 3 times daily Alcohol Yes [id number] Use as Nereyda ey Swabs (B-D 1-13 directed Seybo ld SINGLE USE 00:00: three SWABS 00 times REGULAR) daily does not apply Pads Metoprolol Yes [id number] 100mg Take 1 Kasia Succinate 1-13 tablet Seybold 100 MG oral 00:00: (100 mg TABLET SR 00 total) by 24 HR mouth daily Blood 2021-0 Yes [id number] 1{each} 1 each by Kasia Glucose 1-13 does not Seybold Monitoring 00:00: apply Suppl (True 00 route 3 Metrix times Meter) daily USE w/Device does not DIRECTED apply Kit TO CHECK BLOOD SUGAR THREE TIMES DAILY Amlodipine Yes [id number] 5mg Take 1 K elsey Besylate 5 1-13 tablet (5 Seyb old MG oral 00:00: mg total) Tablet 00 by mouth daily Celecoxib Yes [id number] 200mg Take 1 K elsey 200 MG oral 1-13 capsule Seybo ld Capsule 00:00: (200 mg 00 total) by mouth 2 times daily Lisinopril Yes [id number] 20mg Take 1 K elsey 20 MG oral 1-13 tablet (20 Sey bold Tablet 00:00: mg total) 00 by mouth daily Ferrous Yes [id number] 325mg Take 1 Killian sey Sulfate 325 1-13 tablet Seybol d (65 Fe) MG 00:00: (325 mg oral Tablet 00 total) by mouth daily (with breakfast) TRUEplus Yes [id number] 1{each} 1 each by Kasia Lancets 33G 1-13 does not Seyb old does not 00:00: apply apply Misc 00 route 3 times daily Alcohol Yes [id number] Use as Nereyda ey Swabs (B-D -13 directed Seybo ld SINGLE USE 00:00: three SWABS 00 times REGULAR) daily does not apply Pads Metoprolol Yes [id number] 100mg Take 1 Kasia Succinate 1-13 tablet Seybold 100 MG oral 00:00: (100 mg TABLET SR 00 total) by 24 HR mouth daily Blood Yes [id number] 1{each} 1 each by Kasia Glucose 1-13 does not Seybold Monitoring 00:00: apply Suppl (True 00 route 3 Metrix times Meter) daily USE w/Device does not DIRECTED apply Kit TO CHECK BLOOD SUGAR THREE TIMES DAILY Celecoxib Yes [id number] 200mg Take 1 K elsey 200 MG oral 1-13 capsule Seybo ld Capsule 00:00: (200 mg - 00 total) by Externa mouth 2 l times daily Ferrous Yes [id number] 325mg Take 1 Killian sey Sulfate 325 1-13 tablet Seybol d (65 Fe) MG 00:00: (325 mg - oral Tablet 00 total) by Ext sharlene mouth l daily (with breakfast) TRUEplus Yes [id number] 1{each} 1 each by Kasia Lancets 33G 1-13 does not Seyb old does not 00:00: apply - apply Misc 00 route 3 [employer] a times l daily Alcohol Yes [id number] Use as Nereyda ey Swabs (B-D 03-20 directed Seybo ld SINGLE USE 00:00: three - SWABS 00 times Externa REGULAR) daily l does not apply Pads metoprolol Yes 100mg QD Take [address] [facility] [address] succinate 1-13 mg by [facility] (TOPROL-XL) 00:00: mouth Medic al 100 MG 24 00 daily. Center hr tablet Metoprolol Yes [id number] 100mg Take 1 Kasia Succinate 1-13 tablet Seybold 100 MG oral 00:00: (100 mg - TABLET SR 00 total) by Exter na 24 HR mouth l daily Blood Yes [id number] 1{each} 1 each by Kasia Glucose -13 does not Seybold Monitoring 00:00: apply - Suppl (True 00 route 3 Exter na Metrix times l Meter) daily USE w/Device does not DIRECTED apply Kit TO CHECK BLOOD SUGAR THREE TIMES DAILY Celecoxib Yes [id number] 200mg Take 1 K elsey 200 MG oral -13 capsule Seybo ld Capsule 00:00: (200 mg - 00 total) by Externa mouth 2 l times daily Ferrous Yes [id number] 325mg Take 1 Killian sey Sulfate 325 1-13 tablet Seybol d (65 Fe) MG 00:00: (325 mg - oral Tablet 00 total) by Ext sharlene mouth l daily (with breakfast) TRUEplus Yes [id number] 1{each} 1 each by Kasia Lancets 33G -13 does not Seyb old does not 00:00: apply - apply Misc 00 route 3 [employer] a times l daily Alcohol Yes [id number] Use as Nereyda ey Swabs (B-D 03-20 directed Seybo ld SINGLE USE 00:00: three - SWABS 00 times Externa REGULAR) daily l does not apply Pads Metoprolol Yes [id number] 100mg Take 1 Kasia Succinate 1-13 tablet Seybold 100 MG oral 00:00: (100 mg - TABLET SR 00 total) by Exter na 24 HR mouth l daily Blood Yes [id number] 1{each} 1 each by Kasia Glucose 1-13 does not Seybold Monitoring 00:00: apply - Suppl (True 00 route 3 Exter na Metrix times l Meter) daily USE w/Device does not DIRECTED apply Kit TO CHECK BLOOD SUGAR THREE TIMES DAILY Celecoxib 0 Yes [id number] 200mg Take 1 K elsey 200 MG oral 1-13 capsule Seybo ld Capsule 00:00: (200 mg - 00 total) by Externa mouth 2 l times daily TRUEplus 0 Yes [id number] 1{each} 1 each by Kasia Lancets 33G - does not Seyb old does not 00:00: apply - apply Misc 00 route 3 [employer] a times l daily Alcohol Yes [id number] Use as Nereyda ey Swabs (B-D 03-20 directed Seybo ld SINGLE USE 00:00: three - SWABS 00 times Externa REGULAR) daily l does not apply Pads Blood 0 Yes [id number] 1{each} 1 each by Kasia Glucose - does not Seybold Monitoring 00:00: apply - Suppl (True 00 route 3 Exter na Metrix times l Meter) daily USE w/Device does not DIRECTED apply Kit TO CHECK BLOOD SUGAR THREE TIMES DAILY TRUEplus 0 Yes [id number] 1{each} 1 each by Kasia Lancets 33G 03-20 does not Seyb old does not 00:00: apply - apply Misc 00 route 3 [employer] a times l daily Alcohol 2021-0 Yes [id number] Use as Nereyda ey Swabs (B-D 03-20 directed Seybo ld SINGLE USE 00:00: three - SWABS 00 times Externa REGULAR) daily l does not apply Pads Blood 2021-0 Yes [id number] 1{each} 1 each by Kasia Glucose 03-20 does not Seybold Monitoring 00:00: apply - Suppl (True 00 route 3 Exter na Metrix times l Meter) daily USE w/Device does not DIRECTED apply Kit TO CHECK BLOOD SUGAR THREE TIMES DAILY ferrous 0 Yes 325mg QD Take 325 [facility] sulfate 325 1-[facility] mg [facility] (65 FE) MG 00:00: mouth Medica l tablet 00 daily. Center celecoxib 0 Yes 200mg Q.5D Take [address] [facility] [address] (CeleBREX) 1-13 mg by [facility] 200 MG 00:00: mouth 2 Medical capsule 00 (two) Center times daily. metoprolol Yes 100mg QD Take 100 [facility] [...] capsule 00 (two) Center times daily. metoprolol Yes 100mg QD Take 100 [facility] [...] capsule 00 (two) Center times daily. Blood 2022- No [id number] 1{each} 1 each by Kasia Glucose 03-20 does not Seybold Monitoring 00:00: 00:00 apply - Suppl (True 00 :00 route 3 Exter na Metrix times l Meter) daily USE w/Device does not DIRECTED apply Kit TO CHECK BLOOD SUGAR THREE TIMES DAILY Rosuvastati 2021- No [id number] 10mg Take 1 Kasia n Calcium 03-20 tablet (10 Sey bold 10 MG oral 00:00: 00:00 mg total) Tablet 00 :00 by mouth daily Glucose 2021- No [id number] Use as Killian [facility] Blood in 03-20 directed Seybol d vitro Strip 00:00: 00:00 three 00 :00 times daily Sulfamethox 2020-03 Yes [id number] 1{tbl} Take 1 Kasia azole-Trime 2-30 tablet by Sey bold thoprim 00:00: mouth 400-80 MG 00 daily oral Tablet Sulfamethox 2020-03- No [id number] 1{tbl} Take 1 Kasia azole-Trime 2-30 03-17 tablet by Se burnsfidel thoprim 00:00: 00:00 mouth 400-80 MG 00 :00 daily oral Tablet Nitrofurant 2020-03 Yes [id number] 100mg Take 1 Kasia oin Monohyd 2-29 capsule Pk ld Macro 00:00: (100 mg (Macrobid) 00 total) by 100 MG oral mouth Capsule daily Vitamin D, 2020-03 Yes [id number] 1{tbl} Take 1 Kasia Cholecalcif 2-27 tablet by [facility], 25 00:00: mouth - MCG (1000 daily Externa UT) oral l Capsule Vitamin D, 2020-03 Yes [id number] 1{tbl} Take 1 Kasia Cholecalcif 2-27 tablet by [facility], 25 00:00: mouth - MCG (1000 daily Externa UT) oral l Capsule Vitamin D, 2020-03 Yes [id number] 1{tbl} Take 1 Kasia Cholecalcif 2-27 tablet by [facility], 25 00:00: mouth - MCG (1000 daily Externa UT) oral l Capsule Vitamin D, 2020-03 Yes [id number] 1{tbl} Take 1 Kasia Cholecalcif 2-27 tablet by [facility], 25 00:00: mouth - MCG (1000 daily Externa UT) oral l Capsule Vitamin D, 2020-03 Yes [id number] 1{tbl} Take 1 Kasia Cholecalcif 2-27 tablet by [place] bold maritza, 25 00:00: mouth - MCG (1000 00 daily Externa UT) oral l Capsule Vitamin D, 2020-03 Yes [id number] 1{tbl} Take 1 Kasia Cholecalcif 2-27 tablet by [facility] bold maritza, 25 00:00: mouth - MCG (1000 00 daily Externa UT) oral l Capsule Vitamin D, 2020-03 Yes [id number] 1{tbl} Take 1 Kasia Cholecalcif 2-27 tablet by [place] bold maritza, 25 00:00: mouth - MCG (1000 00 daily Externa UT) oral l Capsule Vitamin D, 2020-03 Yes [id number] 1{tbl} Take 1 Kasia Cholecalcif 2-27 tablet by Sey bold maritza, 25 00:00: mouth - MCG (1000 00 daily Externa UT) oral l Capsule Vitamin D, 2020-03 Yes [id number] 1{tbl} Take 1 Kasia Cholecalcif 2-27 tablet by Sey bold maritza, 25 00:00: mouth MCG (1000 00 daily UT) oral Capsule Vitamin D, 2020-03 Yes [id number] 1{tbl} Take 1 Kasia Cholecalcif 2-27 tablet by Sey bold maritza, 25 00:00: mouth MCG (1000 00 daily UT) oral Capsule Vitamin D, 2020-03 Yes [id number] 1{tbl} Take 1 Kasia Cholecalcif 2-27 tablet by Sey bold maritza, 25 00:00: mouth MCG (1000 00 daily UT) oral Capsule Vitamin D, 2020-03 Yes [id number] 1{tbl} Take 1 Kasia Cholecalcif 2-27 tablet by Sey bold maritza, 25 00:00: mouth MCG (1000 00 daily UT) oral Capsule Vitamin D, 2020-03 Yes [id number] 1{tbl} Take 1 Kasia Cholecalcif 2-27 tablet by Sey bold maritza, 25 00:00: mouth MCG (1000 00 daily UT) oral Capsule Vitamin D, 2020-03 Yes [id number] 1{tbl} Take 1 Kasia Cholecalcif 2-27 tablet by Sey bold maritza, 25 00:00: mouth MCG (1000 00 daily UT) oral Capsule Vitamin D, 2020-03 Yes [id number] 1{tbl} Take 1 Kasia Cholecalcif 2-27 tablet by Sey bold maritza, 25 00:00: mouth - MCG (1000 00 daily Externa UT) oral l Capsule Vitamin D, 2020-03 Yes [id number] 1{tbl} Take 1 Kasia Cholecalcif 2-27 tablet by Sey bold maritza, 25 00:00: mouth - MCG (1000 00 daily Externa UT) oral l Capsule Vitamin D, 2020-03 Yes [id number] 1{tbl} Take 1 Kasia Cholecalcif 2-27 tablet by Sey bold maritza, 25 00:00: mouth - MCG (1000 00 daily Externa UT) oral l Capsule Vitamin D, 2020-03 Yes [id number] 1{tbl} Take 1 Kasia Cholecalcif 2-27 tablet by [facility] [place], 25 00:00: mouth - MCG (1000 00 [...] Center (1,000 unit) tablet Ciprofloxac 2020-03- No [id number] 500mg Take 1 Kasia in HCl 2-27 03-11 tablet Seybold (Cipro) 500 00:00: 05:59 (500 mg MG oral 00 :00 total) by Tablet mouth 2 times daily for 7 days Metformin 2020-03 Yes [id number] 1000mg Take 2 Kasia HCl 500 MG 2-23 tablets Seybol d oral Tablet 00:00: (1,000 mg 00 total) by mouth 2 times daily (with meals) Famotidine 2020-03 Yes [id number] 20mg Take 1 Kasia (PEPCID) 20 2-23 tablet (20 Se ybold MG oral 00:00: mg total) tablet 00 by mouth 2 times daily Metformin 2020-03 Yes [id number] 1000mg Take 2 Kasia HCl 500 MG 2-23 tablets Seybol d oral Tablet 00:00: (1,000 mg 00 total) by mouth 2 times daily (with meals) Famotidine 2020-03 Yes [id number] 20mg Take 1 Kasia (PEPCID) 20 2-23 tablet (20 Se ybold MG oral 00:00: mg total) tablet 00 by mouth 2 times daily Metformin 2020-03 Yes [id number] 1000mg Take 2 Kasia HCl 500 MG 2-23 tablets Seybol d oral Tablet 00:00: (1,000 mg 00 total) by mouth 2 times daily (with meals) Famotidine 2020-03 Yes [id number] 20mg Take 1 Kasia (PEPCID) 20 2-23 tablet (20 Se ybold MG oral 00:00: mg total) tablet 00 by mouth 2 times daily Famotidine 2020-03- No [id number] 20mg Take 1 Kasia (PEPCID) 20 2-23 03-17 tablet (20 S eybold MG oral 00:00: 00:00 mg total) tablet 00 :00 by mouth 2 times daily Celecoxib 2020-03 Yes [id number] TAKE 1 Ke lsey 200 MG oral 1-30 CAPSULE BY Se ybold Capsule 00:00: MOUTH 2 00 TIMES DAILY. Celecoxib 2020-03 Yes [id number] TAKE 1 Ke lsey 200 MG oral 1-30 CAPSULE BY Se ybold Capsule 00:00: MOUTH 2 00 TIMES DAILY. Famotidine 2020-03- No [id number] TAKE 1 Kasia (PEPCID) 20 1-23 12-23 [id number] TABLET BY Seybold MG oral 00:00: 00:00 MOUTH tablet 00 :00 TWICE A DAY Lansoprazol 2020-03 Yes [id number] 30mg Take 1 Kasia e 30 MG 1-15 tablet (30 Seybol d oral Tablet 00:00: mg total) Delayed 00 by mouth Release daily Dispersible Lansoprazol 2020-03 Yes [id number] 30mg Take 1 Kasia e 30 MG [...] 00:00: 00:00 00 :00 Nitrofurant 2020-03 Yes [id number] 100mg Take 1 Kasia oin Monohyd 1-09 capsule Seybo ld Macro 00:00: (100 mg (Macrobid) 00 total) by 100 MG oral mouth 2 Capsule times daily Nitrofurant 2020-03 Yes [id number] 100mg Take 1 Kasia oin Monohyd 1-09 capsule Seybo ld Macro 00:00: (100 mg (Macrobid) 00 total) by 100 MG oral mouth 2 Capsule times daily Nitrofurant 2020-03 Yes [id number] 100mg Take 1 Kasia oin Monohyd 1-09 capsule Seybo ld Macro 00:00: (100 mg (Macrobid) 00 total) by 100 MG oral mouth 2 Capsule times daily Nitrofurant 2020-03- No [id number] 100mg Take 1 Kasia oin Monohyd 1-09 [...] K elsey us-Inulin 1-08 le} capsule by yb old (Culturelle 14:36: mouth Digestive 01 daily [...] Tablet 14:36: meal 01 Lansoprazol 2020-03 Yes [id number] 30mg Take 1 Kasia e 30 MG 1-08 tablet (30 Seybol d oral Tablet 00:00: mg total) Delayed 00 by mouth Release daily Dispersible Alum & Mag 2020-03 Yes [id number] 15mL Take 15 mL Kasia Hydroxide-S 1-08 by mouth Dilcia old imeth 00:00: every 4 to (Alumina-Ma 00 6 hours as gnesia-Rosetta needed thicone) (gas) 200-200-20 MG/5ML oral Suspension Sennosides 2020-03 Yes [id number] 1{capsu Take 1 Kasia (Senna) 8.6 1-08 le} capsule by Se ybold MG oral 00:00: mouth Capsule 00 nightly Celecoxib 2020-03 Yes [id number] 200mg Take 1 K elsey (CeleBREX) 1-08 capsule Seybol d 200 MG oral 00:00: (200 mg Capsule 00 total) by mouth 2 times daily Alum & Mag 2020-03 Yes [id number] 15mL Take 15 mL Kasia Hydroxide-S 1-08 by mouth yb old imeth 00:00: every 4 to (Alumina-Ma 00 6 hours as gnesia-Rosetta needed thicone) (gas) 200-200-20 MG/5ML oral Suspension Sennosides 2020-03 Yes [id number] 1{capsu Take 1 Kasia (Senna) 8.6 1-08 le} capsule by Se ybold MG oral 00:00: mouth Capsule 00 nightly Alum & Mag 2020-03 Yes [id number] 15mL Take 15 mL Kasia Hydroxide-S 1-08 by mouth Dilcia old imeth 00:00: every 4 to (Alumina-Ma 00 6 hours as gnesia-Rosetta needed thicone) (gas) 200-200-20 MG/5ML oral Suspension Sennosides 2020-03 Yes [id number] 1{capsu Take 1 Kasia (Senna) 8.6 1-08 le} capsule by Se ybold MG oral 00:00: mouth Capsule 00 nightly Alum & Mag 2020-03 Yes [id number] 15mL Take 15 mL Kasia Hydroxide-S 1-08 by mouth Seyb old imeth 00:00: every 4 to (Alumina-Ma 00 6 hours as gnesia-Rosetta needed thicone) (gas) 200-200-20 MG/5ML oral Suspension Sennosides 2020-03 Yes [id number] 1{capsu Take 1 Kasia (Senna) 8.6 1-08 le} capsule by Se ybold MG oral 00:00: mouth Capsule 00 nightly Alum & Mag 2020-03 Yes [id number] 15mL Take 15 mL Kasia Hydroxide-S 1-08 by mouth Seyb old imeth 00:00: every 4 to (Alumina-Ma 00 6 hours as gnesia-Rosetta needed thicone) (gas) 200-200-20 MG/5ML oral Suspension Alum & Mag 2020-03 Yes [id number] 15mL Take 15 mL Kasia Hydroxide-S 1-08 by mouth Seyb old imeth 00:00: every 4 to (Alumina-Ma 00 6 hours as gnesia-Rosetta needed thicone) (gas) 200-200-20 MG/5ML oral Suspension Alum & Mag 2020-03 Yes [id number] 15mL Take 15 mL Kasia Hydroxide-S 1-08 by mouth Seyb old imeth 00:00: every 4 to (Alumina-Ma 00 6 hours as gnesia-Rosetta needed thicone) (gas) 200-200-20 MG/5ML oral Suspension Alum & Mag 2020-03 Yes [id number] 15mL Take 15 mL Kasia Hydroxide-S 1-08 by mouth Seyb old imeth 00:00: every 4 to (Alumina-Ma 00 6 hours as gnesia-Rosetta needed thicone) (gas) 200-200-20 MG/5ML oral Suspension Sennosides 2020-03- No [id number] 1{capsu Take 1 Kasia (Senna) 8.6 03-15 03-17 le} capsule by S eybold MG oral 00:00: 00:00 mouth Capsule 00 :00 nightly Metformin 2020-03 Yes 1000mg Take 2 Nereyda ey HCl 500 MG 1-02 tablets Seybol d oral Tablet 00:00: (1,000 mg 00 total) by mouth daily (with breakfast) Metformin 2020-03- No 1000mg Take 2 Killian sey HCl 500 MG 03-09 12-23 tablets Seybo ld oral Tablet 00:00: 00:00 (1,000 mg 00 :00 total) by mouth daily (with breakfast) Famotidine 2020-03 Yes [id number] 20mg Take 1 Kasia (PEPCID) 20 [id number] tablet (20 Seybold MG oral 00:00: mg total) tablet 00 by mouth 2 times daily Ibuprofen 2020-03- No [id number] 800mg Q6H Take 1 Kasia 800 MG oral 01-13 [id number] tablet Sey bold Tablet 00:00: 00:00 (800 [...] 00:00: vaginal 00 Cream ESTRADIOL 2020-03 Yes Ksaia VAGINAL 0.1 0-27 Seybold MG/GM 00:00: vaginal [...] K elsey us-Inulin 0-20 le} capsule by Seyb old (Culturelle 09:08: mouth Digestive 39 daily [...] Tablet 09:08: meal 39 Phenazopyri 2020-03 Yes [id number] 200mg Q.[id number] Take 1 Kasia dine HCl 0-20 [id number] tablet Sey bold 200 MG oral 00:00: 3D (200 mg Tablet 00 total) by mouth 3 times daily as needed for pain Continuous 2020-03 Yes [id number] 1{each} 1 each by Kasia Blood Gluc 0-20 does not Seybo ld Sensor 00:00: apply (FreeStyle 00 route 3 Farhana 2 times Sensor) daily does not apply Misc Phenazopyri 2020-03 Yes [id number] 200mg Q.[id number] Take 1 Kasia dine HCl 0-20 [id number] tablet Sey bold 200 MG oral 00:00: 3D (200 mg Tablet 00 total) by mouth 3 times daily as needed for pain Continuous 2020-03 Yes [id number] 1{each} 1 each by Kasia Blood Gluc 0-20 does not Seybo ld Sensor 00:00: apply (FreeStyle 00 route 3 Farhana 2 times Sensor) daily does not apply Misc Phenazopyri 2020-03 Yes [id number] 200mg Q.[id number] Take 1 Kasia dine HCl 0-20 [id number] tablet Sey bold 200 MG oral 00:00: 3D (200 mg Tablet 00 total) by mouth 3 times daily as needed for pain Continuous 2020-03 Yes [id number] 1{each} 1 each by Kasia Blood Gluc 0-20 does not Seybo ld Sensor 00:00: apply (FreeStyle 00 route 3 Farhana 2 times Sensor) daily does not apply Misc Phenazopyri 2020-03 Yes [id number] 200mg Q.[id number] Take 1 Kasia dine HCl 0-20 [id number] tablet Sey bold 200 MG oral 00:00: 3D (200 mg Tablet 00 total) by mouth 3 times daily as needed for pain Continuous 2020-03 Yes [id number] 1{each} 1 each by Kasia Blood Gluc 0-20 does not Seybo ld Sensor 00:00: apply (FreeStyle 00 route 3 Farhana 2 times Sensor) daily does not apply Misc Phenazopyri 2020-03 Yes [id number] 200mg Q.[id number] Take 1 Kasia dine HCl 0-20 [id number] tablet Sey bold 200 MG oral 00:00: 3D (200 mg Tablet 00 total) by mouth 3 times daily as needed for pain Continuous 2020-03 Yes [id number] 1{each} 1 each by Kasia Blood Gluc 0-20 does not Seybo ld Sensor 00:00: apply (FreeStyle 00 route 3 Farhana 2 times Sensor) daily does not apply Misc Phenazopyri 2020-03- No [id number] 200mg Q.[id number] Take 1 Kasia dine HCl 0-20 03-17 [id number] tablet Se ybold 200 MG oral 00:00: 00:00 3D (200 mg Tablet 00 :00 total) by mouth 3 times daily as needed for pain Continuous 2020-03- No [id number] 1{each} 1 each by Kasia Blood Gluc 0-20 03-17 does not Seyb old Sensor 00:00: 00:00 apply (FreeStyle 00 :00 route 3 Farhana 2 times Sensor) daily does not apply Misc TRIMETHOPRI 2020-03- No [id number] 1{tbl} Take 1 Kasia M-SULFAMETH 0-20 10-26 tablet by Se nichols OXAZOLE 00:00: 04:59 mouth 2 (Bactrim 00 :00 times DS) 800-160 daily for MG oral 5 days Tablet Magnesium 2020-03 Yes 1 tablet Nereyda ey 250 MG oral 0-12 with a Seybol d Tablet 12:44: meal 08 Ibuprofen-F 2020-03 Yes [id number] 1{tbl} Take 1 Kasia amotidine 0-12 [id number] tablet by Sey bold 800-26.6 MG 00:00: mouth 2 oral Tablet 00 times daily Phenazopyri 2020-03 Yes [id number] 200mg Q.[id number] Take 1 Kasia dine HCl 0-12 [id number] tablet Sey bold 200 MG oral 00:00: 3D (200 mg Tablet 00 total) by mouth 3 times daily as needed for pain Continuous 2020-03 Yes [id number] Use as K elsey Blood Gluc 0-12 directed Seybo ld Sensor 00:00: for (FreeStyle 00 continuous Farhana 14 glucose Day Sensor) monitoring does not with Farhana apply Misc sytem Glucose 2020-03 Yes [id number] Use as Nereyda ey Blood 0-12 directed Seybold (FreeStyle 00:00: for Precision 00 continuous Alexey Test) glucose in vitro monitoring Strip with Farhana system Ostomy 2020-03 Yes [id number] Use as Kelse y Supplies 0-12 directed Seybold (Skin Tac 00:00: for Adhesive 00 continuous Barrier glucose Wipe) does monitoring not apply with Farhana Misc system Gabapentin 2020-03 Yes [id number] 300mg Take 1 Kasia 300 MG oral 0-12 [id number] capsule Sey bold Capsule 00:00: (300 mg 00 total) by mouth 3 times daily Ibuprofen-F 2020-03 Yes [id number] 1{tbl} Take 1 Kasia amotidine 0-12 [id number] tablet by Sey bold 800-26.6 MG 00:00: mouth 2 oral Tablet 00 times daily Glucose 2020-03 Yes [id number] Use as Nereyda ey Blood 0-12 directed Seybold (FreeStyle 00:00: for Precision 00 continuous Alexey Test) glucose in vitro monitoring Strip with Farhana system Ostomy 2020-03 Yes [id number] Use as Kelse y Supplies 0-12 directed Seybold (Skin Tac 00:00: for Adhesive 00 continuous Barrier glucose Wipe) does monitoring not apply with Farhana Misc system Gabapentin 2020-03 Yes [id number] 300mg Take 1 Kasia 300 MG oral 0-12 [id number] capsule Sey bold Capsule 00:00: (300 mg 00 total) by mouth 3 times daily Glucose 2020-03 Yes [id number] Use as Nereyda ey Blood 0-12 directed Seybold (FreeStyle 00:00: for Precision 00 continuous Alexey Test) glucose in vitro monitoring Strip with Farhana system Ostomy 2020-03 Yes [id number] Use as Kelse y Supplies 0-12 directed Seybold (Skin Tac 00:00: for Adhesive 00 continuous Barrier glucose Wipe) does monitoring not apply with Farhana Misc system Gabapentin 2020-03 Yes [id number] 300mg Take 1 Kasia 300 MG oral 0-12 [id number] capsule Sey bold Capsule 00:00: (300 mg 00 total) by mouth 3 times daily Glucose 2020-03 Yes [id number] Use as Nereyda ey Blood 0-12 directed Seybold (FreeStyle 00:00: for Precision 00 continuous Alexey Test) glucose in vitro monitoring Strip with Farhana system Ostomy 2020-03 Yes [id number] Use as Kelse y Supplies 0-12 directed Seybold (Skin Tac 00:00: for Adhesive 00 continuous Barrier glucose Wipe) does monitoring not apply with Farhana Misc system Gabapentin 2020-03 Yes [id number] 300mg Take 1 Kasia 300 MG oral 0-12 [id number] capsule Sey bold Capsule 00:00: (300 mg 00 total) by mouth 3 times daily Glucose 2020-03 Yes [id number] Use as Nereyda ey Blood 0-12 directed Seybold (FreeStyle 00:00: for Precision 00 continuous Alexey Test) glucose in vitro monitoring Strip with Farhana system Ostomy 2020-03 Yes [id number] Use as Kelse y Supplies 0-12 directed Seybold (Skin Tac 00:00: for Adhesive 00 continuous Barrier glucose Wipe) does monitoring not apply with Afrhana Misc system Gabapentin 2020-03 Yes [id number] 300mg Take 1 Kasia 300 MG oral 0-12 [id number] capsule Sey bold Capsule 00:00: (300 mg 00 total) by mouth 3 times daily Glucose 2020-03 Yes [id number] Use as Nereyda ey Blood 0-12 directed Seybold (FreeStyle 00:00: for Precision 00 continuous Alexey Test) glucose in vitro monitoring Strip with Farhana system Ostomy 2020-03 Yes [id number] Use as Kelse y Supplies 0-12 directed Seybold (Skin Tac 00:00: for Adhesive 00 continuous Barrier glucose Wipe) does monitoring not apply with Farhana Misc system Gabapentin 2020-03 Yes [id number] 300mg Take 1 Kasia 300 MG oral 0-12 [id number] capsule Sey bold Capsule 00:00: (300 mg 00 total) by mouth 3 times daily Glucose 2020-03- No [id number] Use as Killian sey Blood 0-12 03-17 directed Seybold (FreeStyle 00:00: 00:00 for Precision 00 :00 continuous Alexey Test) glucose in vitro monitoring Strip with Farhana system Ostomy 2020-03- No [id number] Use as Nereyda ey Supplies 0-12 03-17 directed Seybol d (Skin Tac 00:00: 00:00 for Adhesive 00 :00 continuous Barrier glucose Wipe) does monitoring not apply with Farhana Misc system Gabapentin 2020-03- No [id number] 300mg Take 1 Kasia 300 MG oral 0-12 - [id number] capsule Se ybold Capsule 00:00: 00:00 (300 mg 00 :00 total) by mouth 3 times daily Phenazopyri 2020-03- No [id number] 200mg [id number] Take 1 Kasia dine HCl 0-12 - [id number] tablet Se ybold 200 MG oral 00:00: 00:00 3D (200 mg Tablet 00 :00 total) by mouth 3 times daily as needed for pain Continuous 2020-03- No [id number] Use as Kasia Blood Gluc 0-12 -20 directed Seyb old Sensor 00:00: 00:00 for (FreeStyle 00 :00 continuous Farhana 14 glucose Day Sensor) monitoring does not with Farhana apply Misc sytem Nitrofurant 2020-03- No [id number] 100mg Take 1 Kasia oin Monohyd 0-12 12-23 capsule Seyb old Macro 100 00:00: 04:59 (100 mg MG oral 00 :00 total) by Capsule mouth 2 times daily for 5 days Amlodipine 2020-03 Yes [id number] 5mg Take 1 K elsey Besylate 5 0-04 tablet (5 Seyb old MG oral 00:00: mg total) Tablet 00 by mouth daily Continuous 2020-03 Yes [id number] Change the Kasia Blood Gluc 0-04 sensor Seybold Sensor 00:00: every 14 (FreeStyle 00 days Farhana 14 Day Sensor) does not apply Misc Amlodipine 2020-03 Yes [id number] 5mg Take 1 K elsey Besylate 5 0-04 tablet (5 Seyb old MG oral 00:00: mg total) Tablet 00 by mouth daily Continuous 2020-03 Yes [id number] Change the Kasia Blood Gluc 0-04 sensor Seybold Sensor 00:00: every 14 (FreeStyle 00 days Farhana 14 Day Sensor) does not apply Misc Amlodipine 2020-03 Yes [id number] 5mg Take 1 K elsey Besylate 5 0-04 tablet (5 Seyb old MG oral 00:00: mg total) Tablet 00 by mouth daily Continuous 2020-03 Yes [id number] Change the Kasia Blood Gluc 0-04 sensor Seybold Sensor 00:00: every 14 (FreeStyle 00 days Farhana 14 Day Sensor) does not apply Misc Amlodipine 2020-03 Yes [id number] 5mg Take 1 K elsey Besylate 5 0-04 tablet (5 Seyb old MG oral 00:00: mg total) Tablet 00 by mouth daily Continuous 2020-03 Yes [id number] Change the Kasia Blood Gluc 0-04 sensor Seybold Sensor 00:00: every 14 (FreeStyle 00 days Farhana 14 Day Sensor) does not apply Misc Amlodipine 2020-03 Yes [id number] 5mg Take 1 K elsey Besylate 5 0-04 tablet (5 Seyb old MG oral 00:00: mg total) Tablet 00 by mouth daily Continuous 2020-03 Yes [id number] Change the Kasia Blood Gluc 0-04 sensor Seybold Sensor 00:00: every 14 (FreeStyle 00 days Farhana 14 Day Sensor) does not apply Misc Continuous 2020-03 Yes [id number] Change the Kasia Blood Gluc 0-04 sensor Seybold Sensor 00:00: every 14 (FreeStyle 00 days Farhana 14 Day Sensor) does not apply Misc Continuous 2020-03- No [id number] Change the Kasia Blood Gluc 0-04 03-17 [...] Take 20 mg Kasia 20 MG oral 9-11-28 by mouth Seyb old Tablet 08:37: 00:00 daily 37 :00 Metformin Yes 2{tbl} Take 2 Nereyda ey HCl 500 MG - tablets by Sey bold oral Tablet 08:25: mouth 24 daily (with breakfast) Metformin Yes 2{tbl} Take 2 Nereyda ey HCl 500 MG -23 tablets by Sey bold oral Tablet 08:25: mouth 24 daily (with breakfast) amLODIPine- 2020- No 1{tbl} Take 1 K elsey Atorvastati -11-28 tablet by Se ybold n 5-10 MG [...] Yes 1{capsu Take 1 K elsey us-Inulin -23 le} capsule by yb old (Culturelle 08:15: mouth Digestive 47 daily Health) oral Capsule Aspirin Yes 81mg Take 81 mg Nereyda ey (Aspirin -23 by mouth Seybold 81) 81 MG 08:15: daily oral Tablet 47 Delayed Response Lansoprazol Yes [id number] 30mg Take 1 Kasia e 30 MG - tablet (30 Seybol d oral Tablet 00:00: mg total) Delayed 00 by mouth Release daily Dispersible Insulin Yes [id number] 20U Inject 20 K elsey Aspart Prot -23 units into Se ybold & Aspart 00:00: the skin 2 (NovoLOG 00 times Mix 70/30 daily FlexPen) (before (70-30) 100 meals) UNIT/ML subcutaneou s Suspension Pen-injecto r Glucose Yes [id number] Test 2-3 Ke lsey Blood in -23 times per Seybol d vitro Strip 00:00: day 00 Ferrous Yes [id number] 325mg Take 1 Killian sey Sulfate 325 9-23 tablet Seybol d (65 Fe) MG 00:00: (325 mg oral Tablet 00 total) by mouth daily (with breakfast) Lisinopril Yes [id number] 20mg Take 1 K elsey 20 MG oral 9-23 tablet (20 Sey bold Tablet 00:00: mg total) 00 by mouth daily Metoprolol Yes [id number] 100mg Take 1 Kasia Succinate 9-23 tablet Seybold 100 MG oral 00:00: (100 mg TABLET SR 00 total) by 24 HR mouth daily Rosuvastati Yes [id number] 10mg Take 1 Kasia n Calcium 9-23 tablet (10 Seyb old 10 MG oral 00:00: mg total) Tablet 00 by mouth daily Clopidogrel Yes [id number] 75mg Take 1 Kasia Bisulfate 9-23 tablet (75 Seyb old 75 MG oral 00:00: mg total) Tablet 00 by mouth daily Lansoprazol Yes [id number] 30mg Take 1 Kasia e 30 MG 9-23 tablet (30 Seybol d oral Tablet 00:00: mg total) Delayed 00 by mouth Release daily Dispersible Insulin Yes [id number] 20U Inject 20 K elsey Aspart Prot 9-23 units into Se ybold & Aspart 00:00: the skin 2 (NovoLOG 00 times Mix 70/30 daily FlexPen) (before (70-30) 100 meals) UNIT/ML subcutaneou s Suspension Pen-injecto r Glucose Yes [id number] Test 2-3 Ke lsey Blood in -23 times per Seybol d vitro Strip 00:00: day 00 Ferrous Yes [id number] 325mg Take 1 Killian sey Sulfate 325 9-23 tablet Seybol d (65 Fe) MG 00:00: (325 mg oral Tablet 00 total) by mouth daily (with breakfast) Lisinopril Yes [id number] 20mg Take 1 K elsey 20 MG oral 9-23 tablet (20 Sey bold Tablet 00:00: mg total) 00 by mouth daily Metoprolol Yes [id number] 100mg Take 1 Kasia Succinate 9-23 tablet Seybold 100 MG oral 00:00: (100 mg TABLET SR 00 total) by 24 HR mouth daily Rosuvastati Yes [id number] 10mg Take 1 Kasia n Calcium 9-23 tablet (10 Seyb old 10 MG oral 00:00: mg total) Tablet 00 by mouth daily Clopidogrel Yes [id number] 75mg Take 1 Kasia Bisulfate 9-23 tablet (75 Seyb old 75 MG oral 00:00: mg total) Tablet 00 by mouth daily Insulin Yes [id number] 20U Inject 20 K elsey Aspart Prot 9-23 units into Se ybold & Aspart 00:00: the skin 2 (NovoLOG 00 times Mix 70/30 daily FlexPen) (before (70-30) 100 meals) UNIT/ML subcutaneou s Suspension Pen-injecto r Glucose Yes [id number] Test 2-3 Ke lsey Blood in -23 times per Seybol d vitro Strip 00:00: day 00 Ferrous Yes [id number] 325mg Take 1 Killian sey Sulfate 325 9-23 tablet Seybol d (65 Fe) MG 00:00: (325 mg oral Tablet 00 total) by mouth daily (with breakfast) Lisinopril Yes [id number] 20mg Take 1 K elsey 20 MG oral 9-23 tablet (20 Sey bold Tablet 00:00: mg total) 00 by mouth daily Metoprolol Yes [id number] 100mg Take 1 Kasia Succinate 9-23 tablet Seybold 100 MG oral 00:00: (100 mg TABLET SR 00 total) by 24 HR mouth daily Rosuvastati Yes [id number] 10mg Take 1 Kasia n Calcium 9-23 tablet (10 Seyb old 10 MG oral 00:00: mg total) Tablet 00 by mouth daily Clopidogrel Yes [id number] 75mg Take 1 Kasia Bisulfate 9-23 tablet (75 Seyb old 75 MG oral 00:00: mg total) Tablet 00 by mouth daily Insulin Yes [id number] 20U Inject 20 K elsey Aspart Prot 9-23 units into Se ybold & Aspart 00:00: the skin 2 (NovoLOG 00 times Mix 70/30 daily FlexPen) (before (70-30) 100 meals) UNIT/ML subcutaneou s Suspension Pen-injecto r Glucose Yes [id number] Test 2-3 Ke lsey Blood in 9-23 times per Seybol d vitro Strip 00:00: day 00 Ferrous Yes [id number] 325mg Take 1 Killian sey Sulfate 325 9-23 tablet Seybol d (65 Fe) MG 00:00: (325 mg oral Tablet 00 total) by mouth daily (with breakfast) Lisinopril Yes [id number] 20mg Take 1 K elsey 20 MG oral 9-23 tablet (20 Sey bold Tablet 00:00: mg total) 00 by mouth daily Metoprolol Yes [id number] 100mg Take 1 Kasia Succinate 9-23 tablet Seybold 100 MG oral 00:00: (100 mg TABLET SR 00 total) by 24 HR mouth daily Rosuvastati Yes [id number] 10mg Take 1 Kasia n Calcium 9-23 tablet (10 Seyb old 10 MG oral 00:00: mg total) Tablet 00 by mouth daily Clopidogrel Yes [id number] 75mg Take 1 Kasia Bisulfate 9-23 tablet (75 Seyb old 75 MG oral 00:00: mg total) Tablet 00 by mouth daily Insulin Yes [id number] 20U Inject 20 K elsey Aspart Prot 9-23 units into Se ybold & Aspart 00:00: the skin 2 (NovoLOG 00 times Mix 70/30 daily FlexPen) (before (70-30) 100 meals) UNIT/ML subcutaneou s Suspension Pen-injecto r Glucose Yes [id number] Test 2-3 Ke lsey Blood in -23 times per Seybol d vitro Strip 00:00: day Clopidogrel Yes [id number] 75mg Take 1 Kasia Bisulfate 9-23 tablet (75 Seyb old 75 MG oral 00:00: mg total) Tablet 00 by mouth daily Glucose Yes [id number] Test 2-3 Ke lsey Blood in 9-23 times per Seybol d vitro Strip 00:00: day 00 Ferrous Yes [id number] 325mg Take 1 Killian sey Sulfate 325 9-23 tablet Seybol d (65 Fe) MG 00:00: (325 mg oral Tablet 00 total) by mouth daily (with breakfast) Lisinopril Yes [id number] 20mg Take 1 K elsey 20 MG oral 9-23 tablet (20 Sey bold Tablet 00:00: mg total) 00 by mouth daily Metoprolol Yes [id number] 100mg Take 1 Kasia Succinate 9-23 tablet Seybold 100 MG oral 00:00: (100 mg TABLET SR 00 total) by 24 HR mouth daily Rosuvastati Yes [id number] 10mg Take 1 Kasia n Calcium 9-23 tablet (10 Seyb old 10 MG oral 00:00: mg total) Tablet 00 by mouth daily Clopidogrel Yes [id number] 75mg Take 1 Kasia Bisulfate 9-23 tablet (75 Seyb old 75 MG oral 00:00: mg total) Tablet 00 by mouth daily Lansoprazol Yes [id number] 30mg Take 1 Kasia e 30 MG 9-23 tablet (30 Seybol d oral Tablet 00:00: mg total) Delayed 00 by mouth Release daily Dispersible Insulin Yes [id number] 20U Inject 20 K elsey Aspart Prot 11-28 units into Se ybold & Aspart 00:00: the skin 2 (NovoLOG 00 times Mix 70/30 daily FlexPen) (before (70-30) 100 meals) UNIT/ML subcutaneou s Suspension Pen-injecto r Glucose Yes [id number] Test 2-3 Ke lsey Blood in -23 times per Seybol d vitro Strip 00:00: day 00 Ferrous Yes [id number] 325mg Take 1 Killian sey Sulfate 325 -23 tablet Seybol d (65 Fe) MG 00:00: (325 mg oral Tablet 00 total) by mouth daily (with breakfast) Lisinopril Yes [id number] 20mg Take 1 K elsey 20 MG oral 9-23 tablet (20 Sey bold Tablet 00:00: mg total) 00 by mouth daily Metoprolol Yes [id number] 100mg Take 1 Kasia Succinate 9-23 tablet Seybold 100 MG oral 00:00: (100 mg TABLET SR 00 total) by 24 HR mouth daily Rosuvastati Yes [id number] 10mg Take 1 Kasia n Calcium 9-23 tablet (10 Seyb old 10 MG oral 00:00: mg total) Tablet 00 by mouth daily Clopidogrel Yes [id number] 75mg Take 1 Kasia Bisulfate 11-28 tablet (75 Seyb old 75 MG oral 00:00: mg total) Tablet 00 by mouth daily Clopidogrel 2021- No [id number] 75mg Take 1 Kasia Bisulfate 11-28 tablet (75 Sey bold 75 MG oral 00:00: 00:00 mg total) Tablet 00 :00 by mouth daily Glucose 2021- No [id number] Test 2-3 K elsey Blood in 11-28 times per Seybo ld vitro Strip 00:00: 00:00 day 00 :00 Insulin 2021- No [id number] 20U Inject 20 Kasia Aspart Prot 11-28 units into S eybold & Aspart 00:00: 00:00 the skin 2 (NovoLOG 00 :00 times Mix 70/30 daily FlexPen) (before (70-30) 100 meals) UNIT/ML subcutaneou s Suspension Pen-injecto r Lansoprazol 2020- No [id number] 30mg Take 1 Kasia e 30 MG 11-28 tablet (30 Seybo ld oral Tablet 00:00: [...] does not apply Misc naproxen 2019-03 Yes [id number] 550mg Take 1 Un jair sodium 1-12 tablet by ity of (ANAPROX 00:00: mouth 2 [place] DS) 550 mg 00 (two) Medical tablet times Branch daily with meals. methylPREDN 2019-03 Yes [id number] Take by Univers ISolone 1-12 mouth ity of (MEDROL, 00:00: SEE-INSTRU [place] as OSEI,) 4 mg 00 CTIONS. Medica l tablets follow Branch package directions naproxen 2019-03 Yes [id number] 550mg Take 1 Un jair sodium 1-12 tablet by ity of (ANAPROX 00:00: mouth 2 [place] DS) 550 mg 00 (two) Medical tablet times Branch daily with meals. methylPREDN 2019-03 Yes [id number] Take by Univers ISolone 1-12 mouth ity of (MEDROL, 00:00: SEE-INSTRU [place] as OSEI,) 4 mg 00 CTIONS. Medica l tablets follow Branch package directions naproxen 2019-03 Yes [id number] 550mg Take 1 Un jair sodium 1-12 tablet by ity of (ANAPROX 00:00: mouth 2 [place] DS) 550 mg 00 (two) Medical tablet times Branch daily with meals. methylPREDN 2019-03 Yes [id number] Take by Univers ISolone 1-12 mouth ity of (MEDROL, 00:00: SEE-INSTRU [place] as OSEI,) 4 mg 00 CTIONS. Medica l tablets follow Branch package directions naproxen 2019-03 Yes [id number] 550mg Take 1 Un jair sodium 1-12 tablet by ity of (ANAPROX 00:00: mouth 2 [place] DS) 550 mg 00 (two) Medical tablet times Branch daily with meals. methylPREDN 2019-03 Yes [id number] Take by Univers ISolone 1-12 mouth ity of (MEDROL, 00:00: SEE-INSTRU [place] as OSEI,) 4 mg 00 CTIONS. Medica l tablets follow Branch package directions naproxen 2019-03 Yes [id number] 550mg Take 1 Un jiar sodium 1-12 tablet by ity of (ANAPROX 00:00: mouth 2 [place] DS) 550 mg 00 (two) Medical tablet times Branch daily with meals. methylPREDN 2019-03 Yes [id number] Take by Univers ISolone 1-12 mouth ity of (MEDROL, 00:00: SEE-INSTRU [place] as OSEI,) 4 mg 00 CTIONS. Medica l tablets follow Branch package directions naproxen 2019-03 Yes [id number] 550mg Take 1 Un jair sodium 1-12 tablet by ity of (ANAPROX 00:00: mouth 2 [place] DS) 550 mg 00 (two) Medical tablet times Branch daily with meals. methylPREDN 2019- Yes [id number] Take by Univers ISolone 1-12 mouth ity of (MEDROL, 00:00: SEE-INSTRU [place] as OSEI,) 4 mg 00 CTIONS. Medica l tablets follow Branch package directions naproxen 2019-03 Yes [id number] 550mg Take 1 Un jair sodium 1-12 tablet by ity of (ANAPROX 00:00: mouth 2 [place] DS) 550 mg 00 (two) Medical tablet times Branch daily with meals. methylPREDN 2019-03 Yes [id number] Take by Univers ISolone 1-12 mouth ity of (MEDROL, 00:00: SEE-INSTRU [place] as OSEI,) 4 mg 00 CTIONS. Medica l tablets follow Branch package directions naproxen 2019-03 Yes [id number] 550mg Take 1 Un jair sodium 1-12 tablet by ity of (ANAPROX 00:00: mouth 2 [place] DS) 550 mg 00 (two) Medical tablet times Branch daily with meals. methylPREDN 2019-03 Yes [id number] Take by Univers ISolone 1-12 mouth ity of (MEDROL, 00:00: SEE-INSTRU [place] as OSEI,) 4 mg 00 CTIONS. Medica l tablets follow Branch package directions naproxen 2019-03 Yes [id number] 550mg Take 1 Un jair sodium 1-12 tablet by ity of (ANAPROX 00:00: mouth 2 [place] DS) 550 mg 00 (two) Medical tablet times Branch daily with meals. methylPREDN 2019-03 Yes [id number] Take by Univers ISolone 1-12 mouth ity of (MEDROL, 00:00: SEE-INSTRU [place] as OSEI,) 4 mg 00 CTIONS. Medica l tablets follow Branch package directions methocarbam 2019- 2020- No [id number] 500mg Take 1 Univers oL 500 mg 1-12 11-18 tablet by ity of tablet 00:00: 05:59 mouth 3 [place] 00 :00 (three) Medical times Branch daily for 5 days. methocarbam 2020- 2020- No [id number] 500mg Take 1 Univers oL 500 mg 1-12 11-18 tablet by ity of tablet 00:00: 05:59 mouth 3 [place] 00 :00 (three) Medical times Branch daily for 5 days. LISINOPRIL 2020-0 Yes None Univers 10 MG ORAL 8-08 Entered ity of TAB 18:30: [place] [address] Medical Branch METFORMIN 2020-0 Yes 500mg Take [...] the ity of (HUMALOG 18:30: skin. [place] [facility]) 37 Medical Branch EMPAGLIFLOZ 2020-0 Yes Take by Uni vers IN 8-08 mouth. ity of (JARDIANCE 18:30: [place] ORAL) Medical Branch LISINOPRIL 2020-0 Yes None Univers 10 MG ORAL 8-08 Entered ity of TAB 18:30: [place] [address] Medical Branch METFORMIN 2020-0 Yes 500mg Take [...] the ity of (HUMALOG 18:30: skin. [facility]) 37 Medical Branch EMPAGLIFLOZ 2020-0 Yes Take by Uni vers IN 8-08 mouth. ity of (JARDIANCE 18:30: [place] ORAL) 37 Medical Branch LISINOPRIL 2020-0 Yes None Univers 10 MG ORAL 8-08 Entered ity of TAB 18:30: [place] [address] Medical Branch METFORMIN 2020-0 Yes 500mg Take [...] the ity of (HUMALOG 18:30: skin. [place] [facility]) 37 Medical Branch EMPAGLIFLOZ 2020-0 Yes Take [...] the ity of (HUMALOG 18:30: skin. [facility]) 37 Medical Branch EMPAGLIFLOZ 2020-0 Yes Take [...] the ity of (HUMALOG 18:30: skin. [facility]) 37 Medical Branch EMPAGLIFLOZ 2020-0 Yes Take [...] the ity of (HUMALOG 18:30: skin. [facility]) 37 Medical Branch EMPAGLIFLOZ 2020-0 Yes Take by Uni vers IN 8-08 mouth. ity of (JARDIANCE 18:30: [place] ORAL) 37 Medical Branch LISINOPRIL 2020-0 Yes None Univers 10 MG ORAL 8-08 Entered ity of TAB 18:30: [place] [address] Medical Branch METFORMIN 2020-0 Yes 500mg Take [...] the ity of (HUMALOG 18:30: skin. [facility]) Medical Branch EMPAGLIFLOZ 2020-0 Yes Take by [...] the ity of (HUMALOG 18:30: skin. [facility]) 37 Medical Branch EMPAGLIFLOZ 2020-0 Yes Take [...] ORAL 8-08 Entered ity of TAB 13:30: [place] [address] Medical Branch METFORMIN 2020-0 Yes 500mg Take [...] the ity of (HUMALOG 13:30: skin. [facility]) 37 Medical Branch EMPAGLIFLOZ 2020-0 Yes Take by Uni vers IN 8-08 mouth. ity of (JARDIANCE 13:30: [place] ORAL) 37 Medical Branch LISINOPRIL 2020-0 Yes None Univers 10 MG ORAL 8-08 Entered ity of TAB 13:30: [place] [address] Medical Branch METFORMIN 2020-0 Yes 500mg Take [...] the ity of (HUMALOG 13:30: skin. [facility]) 37 Medical Branch EMPAGLIFLOZ 2020-0 Yes Take [...] 13:30: [place] ORAL) 37 Medical Branch CLOPIDOGREL 2019-0 Yes Take by Uni vers BISULFATE 8-08 mouth. ity of (PLAVIX 13:30: [place] ORAL) 37 Medical Branch INSULIN 2020-0 Yes inject Univers LISPRO 8-08 under the ity of (HUMALOG 13:30: skin. [place] [facility]) 37 Medical Branch EMPAGLIFLOZ 2020-0 Yes Take by Uni vers IN 8-08 mouth. ity of (JARDIANCE 13:30: [place] ORAL) 37 Medical Branch insulin 2020-0 2020- No 15U 15 Units, Univ ers aspart 8- 08-08 Subcutaneo ity of RAPID 03:45: 02:37 us, [...] Until Discontinu ed, Routine ibuprofen 2020-0 Yes [id number] 400mg Take 1 U nivers 400 mg [...] acute pain, chronic pain ibuprofen 2020-0 Yes [id number] 400mg Take 1 U nivers 400 mg [...] acute pain, chronic pain ibuprofen 2020-0 Yes [id number] 400mg Take 1 U nivers 400 mg [...] acute pain, chronic pain ibuprofen 2020-0 Yes [id number] 400mg Take 1 U nivers 400 mg [...] acute pain, chronic pain ibuprofen 2020-0 Yes [id number] 400mg Take 1 U nivers 400 mg [...] acute pain, chronic pain ibuprofen 2020-0 Yes [id number] 400mg Take 1 U nivers 400 mg [...] acute pain, chronic pain ibuprofen 2020-0 Yes [id number] 400mg Take 1 U nivers 400 mg [...] acute pain, chronic pain ibuprofen 2020-0 Yes [id number] 400mg Take 1 U nivers 400 mg [...] acute pain, chronic pain ibuprofen 2020-0 Yes [id number] 400mg Take 1 U nivers 400 mg [...] acute pain, chronic pain ibuprofen 2020-0 Yes [id number] 400mg Take 1 U nivers 400 mg [...] acute pain, chronic pain ibuprofen 2020-0 Yes [id number] 400mg Take 1 U nivers 400 mg [...] acute pain, chronic pain ibuprofen 2020-0 Yes [id number] 400mg Take 1 U nivers 400 mg [...] acute pain, chronic pain ibuprofen 2020-0 Yes [id number] 400mg Take 1 U nivers 400 mg [...] acute pain, chronic pain ibuprofen 2020-0 Yes [id number] 400mg Take 1 U nivers 400 mg [...] No 12.5mg 12.5 mg, Univers e 10-12 08- IV ity of (PHENERGAN) 17:30: 17:18 Piggyback, [place] 12.5 mg in 00 :00 ONCE, 1 Medica l NaCl 0.9% dose, Wed Branc h (NS) 50 mL 10/13/19 at IV 1230, piggyback Routine, PACU FENTanyl PF 2019-2019- No 25ug 25 mcg, Un jair (SUBLIMAZE 10-12 Slow IV ity o f (PF)) 17:02: 18:22 Push, [place] injection 44 :01 Q5MIN PRN, Medi ranjan 25 mcg 4 doses, Branch Starting Wed10/13/19 at 1202, Until Wed10/13/19 at 1322, Routine, Pain (scale 4-6), PACU ibuprofen 2019-0 Yes 400mg 400 mg, [facility] ers (IBU) 10-12 Oral, TID ity of tablet 400 17:00: MEALS, [place] mg 00 First dose Medical on Wed Branch 10/13/19 at 1200, Until Discontinu ed, Routine acetaminoph 2019-0 Yes 500mg 500 mg, Un jair en 10-12 Oral, ity of (TYLENOL) 16:24: Q6HPRN, [place] tablet 500 29 Starting Medic al mg 10/13/19 Branch at 1124, Until Discontinu ed, Routine, Pain (scale 1-3) HYDROcodone 2019-0 Yes 1{tbl} 1 tablet, Univers -acetaminop 10-12 Oral, ity of hen (NORCO 16:24: Q6HPRN, [place] 5) 5-325 mg 13 Starting Medi ranjan tablet 1 Wed10/13/19 Branc h tablet at 1124, Until Discontinu ed, Routine, Pain (scale 4-6) lactated 2019-0 2020- No 1000mL at 125 [facility] ers ringers IV 10-11 08-07 mL/hr, ity [...] 2020- No Subcutaneo Uni vers Scale 10-11 0807 us, Q6H, ity of Insulin - 11:00: 23:08 First dose [place] Aspart 00 :19 on [facility] (NOVOLOG) + 10/12/19 at [facility] Fsbg 0600, Testing Until Discontinu ed, Routine NaCl 0.9% 2020-0 2020- No 1000mL at 100 Uni vers (NS) IV 10-11 08-06 mL/hr, IV ity of infusion 09:00: 10:38 Infusion, [place] as 1,000 mL 00 :00 ONCE, 1 Medical dose, [facility] Branch 10/12/19 at 0400, Routine nitroglycer 2020-0 [...] [place] KIT) 35 Starting Medical injection 1 Wed10/12/19 Br anch mg at 0340, Until Discontinu [...] swallow or has mental status changes. ondansetron Yes 4mg 4 mg, Slow Univers (ZOFRAN 10-11 IV Push, ity of (PF)) 07:57: Q6HPRN, [place] injection 4 24 Starting Medi ranjan mg [place] 10/12/19 Branch at 0257, Until Discontinu ed, Routine, Nausea and Vomiting (N/V) iohexol 2020- No 120mL 120 mL, Unive rs (OMNIPAQUE 10-11 08-06 Intravenou it y of 350 05:00: 05:00 s, ONCE, 1 [place] BULK-150 00 :00 dose, [facility] Medica l mL) 10/12/19 at Branch injection 0000, 120 mL Routine NaCl 0.9% 2020- No 1000mL at 999 Uni vers (NS) IV 10-11 08-06 mL/hr, ity of infusion 04:45: 22:09 Intravenou [place] 1,000 mL 00 :17 s, Medical CONTINUOUS Branch , Starting 10/11/19 at 2345, Until Daphne 10/12/19 at 1709, Routine Nitrofurant Nitrofurant 2020- No Michelle 1 capsule Common oin Monohyd oin Monohyd 05-09 06-02 [place] at bedtime Spirit Macro Macro 00:00: 00:00 with food - [facility] 00 :00 [facility] Cefdinir Cefdinir 0 2020- No Michelle as Com mon 05-09 03-09 Ricky directed Spirit 00:00: 00:00 - [facility] 00 :00 [facility] PANTOPRAZOL Yes Take by Uni vers E SODIUM 5-05 mouth. ity of (PROTONIX 19:02: [place] ORAL) 43 Medical Branch CLOPIDOGREL Yes Take by Uni vers BISULFATE 5-05 mouth. ity of (PLAVIX 19:02: [place] ORAL) 43 Medical Branch INSULIN Yes inject Univers LISPRO 5-05 under the ity of (HUMALOG 19:02: skin. [place]) 43 Medical Branch EMPAGLIFLOZ 2018-0 Yes Take by Uni vers IN 5-05 mouth. ity of (JARDIANCE 19:02: [place] ORAL) 43 Medical Branch PANTOPRAZOL 0 Yes Take by Uni vers E SODIUM 5-05 mouth. ity of (PROTONIX 19:02: [place] ORAL) 43 Medical Branch CLOPIDOGREL 0 Yes Take by Uni vers BISULFATE 5-05 mouth. ity of (PLAVIX 19:02: [place] ORAL) 43 Medical Branch INSULIN 0 Yes inject Univers LISPRO 5-05 under the ity of (HUMALOG 19:02: skin. [facility]) 43 Medical Branch EMPAGLIFLOZ 0 Yes Take by Uni vers IN 5-05 mouth. ity of (JARDIANCE 19:02: [place] ORAL) 43 Medical Branch PANTOPRAZOL 0 Yes Take by Uni vers E SODIUM 5-05 mouth. ity of (PROTONIX 19:02: [place] ORAL) 43 Medical Branch CLOPIDOGREL Yes Take by Uni vers BISULFATE 5-05 mouth. ity of (PLAVIX 19:02: [place] ORAL) 43 Medical Branch INSULIN 0 Yes inject Univers LISPRO 5-05 under the ity of (HUMALOG 19:02: skin. [facility]) 43 Medical Branch EMPAGLIFLOZ 0 Yes Take by Uni vers IN 5-05 mouth. ity of (JARDIANCE 19:02: [place] ORAL) 43 Medical Branch methocarbam 2017-0 Yes 500mg Take 1 Uni vers ol [...] (four) Medical tablet times Branch daily. acetaminoph 2018- 2020- No 1{tbl} Take 1 U nivers [...] 29 (two) Medical times Branch daily. LISINOPRIL 2018-0 Yes None Univers 10 MG ORAL 2-01 Entered ity of TAB 14:33: [place] 29 Medical Branch METFORMIN 2018-0 Yes 500mg Take 500 Uni vers HCL 2-01 mg by ity of (METFORMIN 14:33: mouth 2 [place] ORAL) 29 (two) Medical times Branch daily. LISINOPRIL 2018-0 Yes None Univers 10 MG ORAL 2-01 Entered ity of TAB 14:33: [place] 29 Medical Branch METFORMIN 2018-0 Yes 500mg Take 500 Uni vers HCL 2-01 mg by ity of (METFORMIN 14:33: mouth 2 [place] ORAL) 29 (two) Medical times Branch daily. Aspirin Aspirin Yes Michelle 1 tablet Comm on Ricky [facility] Rosuvastati Rosuvastati Yes Michelle 1 tablet Common n Calcium n Calcium Ricky S pirit [facility] Metformin Metformin Yes Michelle 1 tablet Common HCl HCl Ricky with a Spirit meal [facility] Magnesium Magnesium Yes Michelle 1 tablet Common [place] with a Spirit meal [facility] Iron Iron Yes Michelle 1 tablet Common Ricky [facility] Amlodipine Amlodipine Yes Michelle 1 tablet Common Besylate Besylate Ricky Spi rit [facility] Lisinopril Lisinopril Yes Michelle 1 tablet Common [facility] [facility] Met[facility]rolol Metoprolol Yes Michelle 1 tablet Common Tartrate Tartrate Hayes with food [facility] Garlic Garlic Yes Michelle as Common Hayes directed [facility] Aspirin 81 Aspirin 81 No 1{table [...] Lipitor No Lipitor Basaglar Basaglar No Basaglar Grzegorz JohnsonPen KwikPen Iron 28 MG Iron 28 MG [...] 500 MG t_with_ HCl 500 MG a_meal} Immunizations Ordered Immunization Filled Immunization Date Status Commen ts Source Name Name Influenza Virus 2021-12-02 Completed Kasia Se ybold - Vaccine, 00:00:00 External Quadrivalent, High Dose, Age 65 And Up Influenza Virus 2021-12-02 Completed Kasia Se ybold - Vaccine, 00:00:00 External Quadrivalent, High Dose, Age 65 And Up Influenza Virus 2021-12-02 Completed Kasia Se ybold - Vaccine, 00:00:00 External Quadrivalent, High Dose, Age 65 And Up Influenza Virus 2021-12-02 Completed Kasia Se ybold - Vaccine, 00:00:00 External Quadrivalent, High Dose, Age 65 And Up Influenza Virus 2021-12-02 Completed Kasia Se ybold - Vaccine, 00:00:00 External Quadrivalent, High Dose, Age 65 And Up Influenza Virus 2021-12-02 Completed Kasia Se ybold - Vaccine, 00:00:00 External Quadrivalent, High Dose, Age 65 And Up Influenza Virus 2021-12-02 Completed Kasia Se ybold - Vaccine, 00:00:00 External Quadrivalent, High Dose, Age 65 And Up Influenza Virus 2021-12-02 Completed Kasia Se ybold - Vaccine, 00:00:00 External Quadrivalent, High Dose, Age 65 And Up Influenza Virus 2021-12-02 Completed Kasia Se ybold - Vaccine, 00:00:00 External Quadrivalent, High Dose, Age 65 And Up Influenza Virus 2021-12-02 Completed Kasia Se ybold - Vaccine, 00:00:00 External Quadrivalent, High Dose, Age 65 And Up Influenza Virus 2021-12-02 Completed Kasia Se ybold - Vaccine, 00:00:00 External Quadrivalent, High Dose, Age 65 And Up Influenza Virus 2021-12-02 Completed Kasia Se ybold - Vaccine, 00:00:00 External Quadrivalent, High Dose, Age 65 And Up Covid-19 Vaccine 2021-01-17 Completed Kasia S eybold - ([employer]), Mrna-lnp, 00:00:00 Exter nal [place] [employer], Pf, 30mcg/0.3ml,IM Covid-19 Vaccine 2021-01-17 Completed Kasia S eybold - ([employer]), Mrna-lnp, 00:00:00 Exter nal [place] [employer], Pf, 30mcg/0.3ml,IM Covid-19 Vaccine 2021-01-17 Completed Kasia S eybold - ([employer]), Mrna-lnp, 00:00:00 Exter nal [place] Protein, Pf, 30mcg/0.3ml,IM Covid-19 Vaccine 2021-01-17 Completed Kasia S eybold - ([employer]), Mrna-lnp, 00:00:00 Exter nal [place] Protein, Pf, 30mcg/0.3ml,IM Covid-19 Vaccine 2021-01-17 Completed Kasia S eybold - ([employer]), Mrna-lnp, 00:00:00 Exter nal [place] Protein, Pf, 30mcg/0.3ml,IM Covid-19 Vaccine 2021-01-17 Completed Kasia S eybold - ([employer]), Mrna-lnp, 00:00:00 Exter nal [place] Protein, Pf, 30mcg/0.3ml,IM Covid-19 Vaccine 2021-01-17 Completed Kasia S eybold - ([employer]), Mrna-lnp, 00:00:00 Exter nal [place] [employer], Pf, 30mcg/0.3ml,IM Covid-19 Vaccine 2021-01-17 Completed Kasia S eybold - ([employer]), Mrna-lnp, 00:00:00 Exter nal [place] [employer], Pf, 30mcg/0.3ml,IM Covid-19 Vaccine 2021-01-17 Completed Kasia S eybold (Pfizer), Mrna-lnp, 00:00:00 [place] [employer], Pf, 30mcg/0.3ml,IM Covid-19 Vaccine 2021-01-17 Completed Kasia S eybold (Pfizer), Mrna-lnp, 00:00:00 [place] [employer], Pf, 30mcg/0.3ml,IM Covid-19 Vaccine 2021-01-17 Completed Kasia Hercules eybold ([facility]), Mrna-lnp, 00:00:00 [place] [employer], Pf, 30mcg/0.3ml,IM Covid-19 Vaccine 2021-01-17 Completed Kasia Hercules eybold ([facility]), Mrna-lnp, 00:00:00 [place] [employer], Pf, 30mcg/0.3ml,IM Covid-19 Vaccine 2021-01-17 Completed Kasia cuellobold ([facility]), Mrna-lnp, 00:00:00 [place] [employer], Pf, 30mcg/0.3ml,IM Covid-19 Vaccine 2021-01-17 Completed Kasia Hercules eybold ([facility]), Mrna-lnp, 00:00:00 [place] [employer], Pf, 30mcg/0.3ml,IM Covid-19 Vaccine 2021-01-17 Completed Kasia Hercules eybold ([facility]), Mrna-lnp, 00:00:00 [place] [employer], Pf, 30mcg/0.3ml,IM Covid-19 Vaccine 2021-01-17 Completed Kasia cuellobold - ([employer]), Mrna-lnp, 00:00:00 Exter nal [place] [employer], Pf, 30mcg/0.3ml,IM Covid-19 Vaccine 2021-01-17 Completed Kasia Hercules eybold - ([facility]), Mrna-lnp, 00:00:00 Exter nal [place] [employer], Pf, 30mcg/0.3ml,IM Covid-19 Vaccine 2021-01-17 Completed Kasia cuellobold - ([facility]), Mrna-lnp, 00:00:00 Exter nal [place] [employer], Pf, 30mcg/0.3ml,IM Covid-19 Vaccine 2021-01-17 Completed Kasia Hercules eybold - ([employer]), Mrna-lnp, 00:00:00 Exter nal [place] [employer], Pf, 30mcg/0.3ml,IM Influenza Virus 2020-11-28 Completed Kasia Shepherd ybold - Vaccine, 00:00:00 External Quadrivalent, High Dose, Age 65 And Up Influenza Virus 2020-11-28 Completed Kasia Shepherd ybold - Vaccine, 00:00:00 [...] And Up Influenza Virus 2020-11-28 Completed Kasia ybold Vaccine, 00:00:00 Quadrivalent, High Dose, Age 65 And Up Influenza Virus 2020-11-28 Completed Kasia Se ybold - Vaccine, 00:00:00 External Quadrivalent, High Dose, Age 65 And Up Influenza Virus 2020-11-28 Completed Kasia Shepherd ybold - Vaccine, 00:00:00 External Quadrivalent, High Dose, Age 65 And Up Influenza Virus 2020-11-28 Completed Kasia ybold - Vaccine, 00:00:00 External Quadrivalent, High Dose, Age 65 And Up Influenza Virus 2020-11-28 Completed Kasia Shepherd ybold - Vaccine, 00:00:00 External Quadrivalent, High Dose, Age 65 And Up Covid-19 Vaccine 2020-07-16 Completed Kasia cuelloboarron - Moderna (Spikevax), 00:00:00 Exter nal Mrna-lnp, [place] [employer], Pf Covid-19 Vaccine 2020-07-16 Completed Kasia rodriguezld - Moderna (Spikevax), 00:00:00 Exter nal Mrna-lnp, [place] [employer], Pf Covid-19 Vaccine 2020-07-16 Completed Kasia cuellobold - Moderna (Spikevax), 00:00:00 Exter nal Mrna-lnp, [place] [employer], Pf Covid-19 Vaccine 2020-07-16 Completed Kasia mcwilliams (Moderna), Mrna-lnp, 00:00:00 [place] [employer], Pf, 100 Mcg/0.5ml,IM Covid-19 Vaccine 2020-07-16 Completed Kasia rodriguezld - Moderna (Spikevax), 00:00:00 Exter nal Mrna-lnp, [place] [employer], Pf Covid-19 Vaccine 2020-07-16 Completed Kasia rodriguezld - Moderna (Spikevax), 00:00:00 Exter nal Mrna-lnp, [...] 100 Mcg/0.5ml,IM Covid-19 Vaccine 2020-07-16 Completed Kasia Hercules eybold (Moderna), Mrna-lnp, 00:00:00 [...] Covid-19 Vaccine 2020-07-16 Completed Kasia Hercules eybold Moderna (Spikevax), 00:00:00 Mrna-lnp, [place] [employer], Pf Covid-19 Vaccine 2020-07-16 Completed Kasia mcwilliams - Moderna (Spikevax), 00:00:00 Exter nal Mrna-lnp, [place] [employer], Pf Covid-19 Vaccine 2020-07-16 Completed Kasia mcwilliams - Moderna (Spikevax), 00:00:00 Exter nal Mrna-lnp, [place] [employer], Pf Covid-19 Vaccine 2020-07-16 Completed Kasia Hercules eyboarron - Moderna (Spikevax), 00:00:00 Exter nal Mrna-lnp, [place] [employer], Pf Covid-19 Vaccine 2020-07-16 Completed Kasia Hercules eyisabel - Moderna (Spikevax), 00:00:00 Exter nal Mrna-lnp, [place] [employer], Pf Covid-19 Vaccine 2020-06-14 Completed Kasia mcwilliams - Moderna (Spikevax), 00:00:00 Exter nal Mrna-lnp, [place] [employer], Pf Covid-19 Vaccine 2020-06-14 Completed Kasia mcwilliams - Moderna (Spikevax), 00:00:00 Exter nal Mrna-lnp, [place] [employer], Pf Covid-19 Vaccine 2020-06-14 Completed Kasia mcwilliams - Moderna (Spikevax), 00:00:00 Exter nal Mrna-lnp, [place] [employer], Pf Covid-19 Vaccine 2020-06-14 Completed Kasia mcwilliams (Moderna), Mrna-lnp, 00:00:00 [place] [employer], Pf, 100 Mcg/0.5ml,IM Covid-19 Vaccine 2020-06-14 Completed Kasia mcwilliams - Moderna (Spikevax), 00:00:00 Exter nal Mrna-lnp, [place] [employer], Pf Covid-19 Vaccine 2020-06-14 Completed Kasia mcwilliams - Moderna (Spikevax), 00:00:00 Exter nal Mrna-lnp, [place] [employer], Pf Covid-19 Vaccine 2020-06-14 Completed Kasia mcwilliams - Moderna (Spikevax), 00:00:00 Exter nal Mrna-lnp, [place] [employer], Pf Covid-19 Vaccine 2020-06-14 Completed Kasia mcwilliams - Moderna (Spikevax), 00:00:00 Exter nal Mrna-lnp, [place] [employer], Pf Covid-19 Vaccine 2020-06-14 Completed Kasia Hercules eybold - Moderna (Spikevax), 00:00:00 Exter nal Mrna-lnp, [place] [employer], Pf Covid-19 Vaccine 2020-06-14 Completed Kasia Delisa eybold (Moderna), Mrna-lnp, 00:00:00 [place] [employer], Pf, 100 Mcg/0.5ml,IM Covid-19 Vaccine 2020-06-14 Completed Kasia Hercules cuatebold (Moderna), Mrna-lnp, 00:00:00 [place] [employer], Pf, 100 Mcg/0.5ml,IM Covid-19 Vaccine 2020-06-14 Completed Kasia Hercules cuatebold (Moderna), Mrna-lnp, 00:00:00 [place] [employer], Pf, 100 Mcg/0.5ml,IM Covid-19 Vaccine 2020-06-14 Completed Kasia Hercules cuatebold (Moderna), Mrna-lnp, 00:00:00 [place] [employer], Pf, 100 Mcg/0.5ml,IM Covid-19 Vaccine 2020-06-14 Completed Kasia Hercules cuatemonicald Moderna (Spikevax), 00:00:00 Mrna-lnp, [place] [employer], Pf Covid-19 Vaccine 2020-06-14 Completed Kasia Delisa cuellomonicald Moderna (Spikevax), 00:00:00 Mrna-lnp, [place] [employer], Pf Covid-19 Vaccine 2020-06-14 Completed Kasia S cuatebold Moderna (Spikevax), 00:00:00 Mrna-lnp, [place] [employer], Pf Covid-19 Vaccine 2020-06-14 Completed Kasia S cuatebold Moderna (Spikevax), 00:00:00 Mrna-lnp, [place] [employer], Pf Covid-19 Vaccine 2020-06-14 Completed Kasia Hercules cuatebold Moderna (Spikevax), 00:00:00 Mrna-lnp, [place] [employer], Pf Covid-19 Vaccine 2020-06-14 Completed Kasia Hercules eybold - Moderna (Spikevax), 00:00:00 Exter nal Mrna-lnp, [place] [employer], Pf Covid-19 Vaccine 2020-06-14 Completed Kasia Hercules eybold - Moderna (Spikevax), 00:00:00 Exter nal Mrna-lnp, [place] [employer], Pf Covid-19 Vaccine 2020-06-14 Completed Kasia Delisa eybold - Moderna (Spikevax), 00:00:00 Exter nal [...] d (Shingrix) 00:00:00 Shingles IM 2018-03-04 Completed Kaisa Seybol d (Shingrix) 00:00:00 Shingles IM 2018-03-04 Completed Kasia Seybol d (Shingrix) 00:00:00 Shingles IM 2018-03-04 Completed Kasia Seybol d - (Shingrix) 00:00:00 External Shingles IM 2018-03-04 Completed Kasia Seybol d - (Shingrix) 00:00:00 External Shingles IM 2018-03-04 Completed Kasia Seybol d - (Shingrix) 00:00:00 External Shingles IM 2018-03-04 Completed Kasia Haol d - (Shingrix) 00:00:00 External Influenza Virus [...] Kasia Seyb old - Diphtheria Vaccine 00:00:00 [employer] (age 7+ years) Td- Tetanus & 2014-11-23 Completed Kasia Seyb old - Diphtheria Vaccine 00:00:00 [employer] (age 7+ years) Td- Tetanus & 2014-11-23 Completed Kasia Seyb old Diphtheria Vaccine 00:00:00 (age 7+ years) Td- Tetanus & 2014-11-23 Completed Kasia Seyb old - Diphtheria Vaccine 00:00:00 [employer] (age 7+ years) Td- Tetanus & 2014-11-23 Completed Kasia Seyb old - Diphtheria Vaccine 00:00:00 [employer] (age 7+ years) Td- Tetanus & 2014-11-23 Completed Kasia Seyb old - Diphtheria Vaccine 00:00:00 [employer] (age 7+ years) Td- Tetanus & 2014-11-23 Completed Kasia Seyb old - Diphtheria Vaccine 00:00:00 [employer] (age 7+ years) Td- Tetanus & 2014-11-23 Completed Kasia Seyb old - Diphtheria Vaccine 00:00:00 [employer] (age 7+ years) Td- Tetanus & 2014-11-23 Completed Kasia Seyb old - Diphtheria Vaccine 00:00:00 [employer] (age 7+ years) Td- Tetanus & [...] Kasia Seyb old - Diphtheria Vaccine 00:00:00 [employer] (age 7+ years) Td- Tetanus & 2014-11-23 Completed Kasia Seyb old - Diphtheria Vaccine 00:00:00 [employer] (age 7+ years) Td- Tetanus & 2014-11-23 Completed Kasia Seyb old - Diphtheria Vaccine 00:00:00 [employer] (age 7+ years) Td- Tetanus & 2014-11-23 Completed Kasia Seyb old - Diphtheria Vaccine 00:00:00 [employer] (age 7+ years) Pneumococcal Vaccine, 2014-04-03 Completed Killian sey Seybold - Polysaccharide 00:00:00 External Influenza, Seasonal, 2014-04-03 Completed Nereyda ey Seybold - Injectable, 00:00:00 External Preservative Free Pneumococcal Vaccine, 2014-04-03 Completed Killian sey Seybold - Polysaccharide 00:00:00 External Influenza, Seasonal, 2014-04-03 Completed Nereyda ey Seybold - Injectable, 00:00:00 External Preservative Free Pneumococcal Vaccine, 2014-04-03 Completed Killian sey Seybold - Polysaccharide 00:00:00 External Influenza, Seasonal, 2014-04-03 Completed Nereyda ey Seybold - Injectable, 00:00:00 External Preservative Free Pneumococcal Vaccine, 2014-04-03 Completed Killian sey Seybold - Polysaccharide 00:00:00 External Influenza, Seasonal, 2014-04-03 Completed Nereyda ey Seybold - Injectable, 00:00:00 External Preservative Free Pneumococcal Vaccine, 2014-04-03 Completed Killian sey Seybold - Polysaccharide 00:00:00 External Influenza, Seasonal, 2014-04-03 Completed Nereyda ey Seybold - Injectable, 00:00:00 External Preservative Free Pneumococcal Vaccine, 2014-04-03 Completed Killian sey Seybold - Polysaccharide 00:00:00 External Influenza, Seasonal, 2014-04-03 Completed Nereyda ey Seybold - Injectable, 00:00:00 External Preservative Free Pneumococcal Vaccine, 2014-04-03 Completed Killian sey Seybold - Polysaccharide 00:00:00 External Influenza, Seasonal, 2014-04-03 Completed Nereyda ey Seybold - Injectable, 00:00:00 External Preservative Free Pneumococcal Vaccine, 2014-04-03 Completed Killian sey Seybold - Polysaccharide 00:00:00 External Influenza, Seasonal, 2014-04-03 Completed Nereyda ey Seybold - Injectable, 00:00:00 External Preservative Free Td,absorbed PF 2008-03-08 Completed Kasia hall - MNC,Admin,unspecified 00:00:00 Ext ernal Td- Tetanus & 2008-03-08 Completed Kasia Seyb old - Diphtheria Vaccine 00:00:00 [employer] (age 7+ years) Td,absorbed PF 2008-03-08 Completed Kasia hall - MNC,Admin,unspecified 00:00:00 Ext ernal Td- Tetanus & 2008-03-08 Completed Kasia Seyb old - Diphtheria Vaccine 00:00:00 [employer] (age 7+ years) Td,absorbed PF 2008-03-08 Completed Kasia ahll - KSC,Admin,unspecified 00:00:00 Ext ernal Td- Tetanus & 2008-03-08 Completed Kasia Seyb old - Diphtheria Vaccine 00:00:00 [employer] (age 7+ years) Td,absorbed PF 2008-03-08 Completed Kasia hall KSC,Admin,unspecified 00:00:00 Td,absorbed PF 2008-03-08 Completed Kasia hall - KSC,Admin,unspecified 00:00:00 Ext ernal Td- Tetanus & 2008-03-08 Completed Kasia Seyb old - Diphtheria Vaccine 00:00:00 [employer] (age 7+ years) Td,absorbed PF 2008-03-08 Completed Kasia Freed bold - KSC,Admin,unspecified 00:00:00 Ext ernal Td- Tetanus & 2008-03-08 Completed Kasia Seyb old - Diphtheria Vaccine 00:00:00 [employer] (age 7+ years) Td,absorbed PF 2008-03-08 Completed Kasia Freed bold - KSC,Admin,unspecified 00:00:00 Ext ernal Td- Tetanus & 2008-03-08 Completed Kasia Seyb old - Diphtheria Vaccine 00:00:00 [employer] (age 7+ years) Td,absorbed PF 2008-03-08 Completed Kasia Freed bold - KSC,Admin,unspecified 00:00:00 Ext ernal Td- Tetanus & 2008-03-08 Completed Kasia Seyb old - Diphtheria Vaccine 00:00:00 [employer] (age 7+ years) Td,absorbed PF 2008-03-08 Completed Kasia Freed bold - KSC,Admin,unspecified 00:00:00 Ext ernal Td- Tetanus & 2008-03-08 Completed Kasia Seyb old - Diphtheria Vaccine 00:00:00 [employer] (age 7+ years) Td,absorbed PF 2008-03-08 Completed Kasia Freed bold KSC,Admin,unspecified 00:00:00 Td,absorbed PF 2008-03-08 Completed Kasia Freed bold KSC,Admin,unspecified 00:00:00 Td,absorbed PF 2008-03-08 Completed Kasia Freed bold KSC,Admin,unspecified 00:00:00 Td,absorbed PF 2008-03-08 Completed Kasia Freed bold KSC,Admin,unspecified 00:00:00 Td,absorbed PF 2008-03-08 Completed Kasia Freed bold KSC,Admin,unspecified 00:00:00 Td,absorbed PF 2008-03-08 Completed Kasia Freed bold KSC,Admin,unspecified 00:00:00 Td,absorbed PF 2008-03-08 Completed Kasia Freed bold KSC,Admin,unspecified 00:00:00 Td,absorbed PF 2008-03-08 Completed Kasia Freed bold KSC,Admin,unspecified 00:00:00 Td,absorbed PF 2008-03-08 Completed Kasia hall KSC,Admin,unspecified 00:00:00 Td,absorbed PF 2008-03-08 Completed Kasia hall KSC,Admin,unspecified 00:00:00 Td,absorbed PF 2008-03-08 Completed Kasia Freed bold - KSC,Admin,unspecified 00:00:00 Ext ernal Td,absorbed PF 2008-03-08 Completed Kasia hall - KSC,Admin,unspecified 00:00:00 Ext ernal Td,absorbed PF 2008-03-08 Completed Kasia hall - KSC,Admin,unspecified 00:00:00 Ext ernal Td- Tetanus & 2008-03-08 Completed Kasia Ha old - Diphtheria Vaccine 00:00:00 [employer] (age 7+ years) Td,absorbed PF 2008-03-08 Completed Kasia hall - KSC,Admin,unspecified 00:00:00 Ext ernal Td- Tetanus & 2008-03-08 Completed Kasia Ha old - Diphtheria Vaccine 00:00:00 [employer] (age 7+ years) Td 2008-03-08 Completed [facility] Td 2008-03-08 Completed [facility] Td 2008-03-08 Completed [facility] 00:[facility]00 [facility] Td 2008-03-08 Completed [facility] 00[facility]00[facility]00 [facility] Td 2008-03-08 Completed [facility] 00:00:00 [facility] Td 2008-03-08 Completed [facility] 00:00:00 [facility] Td 2008-03-08 Completed [facility] 00:00:00 [facility] Td 2008-03-08 Completed [facility] 00:00:00 [facility] Td 2008-03-08 Completed [facility] 00:00:00 [facility] Td 2008-03-08 Completed [facility] 00:00:00 [facility] Td 2008-03-08 Completed [facility] 00:00:00 [facility] Td 2008-03-08 Completed [facility] 00:00:00 [facility] Td 2008-03-08 Completed [facility] 00:00:00 [facility] Td 2008-03-08 Completed [facility] 00:00:00 [facility] TD, NOS 2008-03-08 Completed [facility] 00:00:00 [facility] Td 2008-03-08 Completed [facility] 00:00:00 [facility] Td 2008-03-08 Completed [facility] 00:00:00 [facility] Pneumococcal Vaccine, 2007-11-04 Completed Killian sey Seybold [...] 00:00:00 External Pneumococcal Vaccine, 2007-11-04 Completed Killian y ybold - Polysaccharide 00:00:00 External Pneumococcal 2007-11-04 Completed [...] 2007-11-04 Completed [facility] f Polysaccharide, 00:00:00 [facility] ical PPSV23 (PNEUMOVAX) Branch Pneumococcal 2007-11-04 Completed [place] o f Polysaccharide, 00:00:00 [facility] ical PPSV23 (PNEUMOVAX) Branch Vital Signs Vital Name Observation Time Observation Value Comments Source Systolic blood 2022-09-24 18:47:00 122 mm[Hg] Kasia Seybold - pressure External Diastolic blood 2022-09-24 18:47:00 60 mm[Hg] Killianse y Seybold - pressure External Heart rate 2022-09-24 18:47:00 90 /min Kasia Hercules eybold - External Body temperature 2022-09-24 18:47:00 36.94 Jada Nereyda ey Seybold - External Respiratory rate 2022-09-24 18:47:00 16 /min Nereyda ey Seybold - External Body height 2022-09-24 18:47:00 157.5 cm Kasia S eybold - External Body weight 2022-09-24 18:47:00 62.687 kg Kasia S eybold - External BMI 2022-09-24 18:47:00 25.28 kg/m2 Kasia Hercules eybold - External Oxygen saturation in 2022-09-24 18:47:00 97 /min Kasia Dilciafidel - Arterial blood by External Pulse oximetry Systolic blood 2022 19:23:00 124 mm[Hg] Kasia Seybold - pressure External Diastolic blood 2022 19:23:00 60 mm[Hg] Killianse y Seybold - pressure External Heart rate 2022 19:23:00 76 /min Kasia S eybold - External Respiratory rate 2022 19:23:00 16 /min Nereyda ey Seybold - External Body height 2022 19:23:00 157.5 cm Kasia S eybold - External Body weight 2022 19:23:00 62.143 kg Kasia S eybold - External BMI 2022 19:23:00 25.06 kg/m2 Kasia S eybold - External Systolic blood 2022-07-07 16:14:00 150 mm[Hg] Kasia Seybold - pressure External Diastolic blood 2022-07-07 16:14:00 60 mm[Hg] Lovely y Seybold - pressure External Heart rate 2022-07-07 16:14:00 81 /min Kasia S eybold - External Body temperature 2022-07-07 16:14:00 36.28 Jada Nereyda ey Seybold - External Respiratory rate 2022-07-07 16:14:00 15 /min Nereyda ey Seybold - External Body height 2022-07-07 16:14:00 157.5 cm Kasia Hercules eybold - External Body weight 2022-07-07 16:14:00 61.689 kg Kasia Hercules eybold - External BMI 2022-07-07 16:14:00 24.87 kg/m2 Kasia S eybold - External Systolic blood 2022-06-10 13:33:00 129 mm[Hg] Kasia Seybold - pressure External Diastolic blood 2022-06-10 13:33:00 62 mm[Hg] Lovely y Seybold - pressure External Heart rate 2022-06-10 13:33:00 68 /min Kasia S eybold - External Body temperature 2022-06-10 13:33:00 37.17 Jada Nereyda ey Seybold - External Respiratory rate 2022-06-10 13:33:00 14 /min Nereyda cuello Seybold - External Body height 2022-06-10 13:33:00 157.5 cm Kasia Hercules eybold - External Body weight 2022-06-10 13:33:00 62.143 kg Kasia Hercules eybold - External BMI 2022-06-10 13:33:00 25.06 kg/m2 Kasia S eybold - External Oxygen saturation in 2022-06-10 13:33:00 99 /min Kasia Jones - Arterial blood by External Pulse oximetry Systolic blood 2022-06-05 16:19:00 130 mm[Hg] Kasia Seybold - pressure External Diastolic blood 2022-06-05 16:19:00 61 mm[Hg] Killianse y Seybold - pressure External Heart rate 2022-06-05 16:19:00 61 /min Kasia S eybold - External Body temperature 2022-06-05 16:19:00 37.06 Jada Nereyda ey Seybold - External Respiratory rate 2022-06-05 16:19:00 14 /min Nereyda ey Seybold - External Body height 2022-06-05 16:19:00 157.5 cm Kasia S eybold - External Body weight 2022-06-05 16:19:00 62.143 kg Kasia S eybold - External BMI 2022-06-05 16:19:00 25.06 kg/m2 Kasia S eybold - External Oxygen saturation in 2022-06-05 16:19:00 99 /min Kasia Segrantold - Arterial blood by External Pulse oximetry Systolic blood 2022-05-22 19:53:00 120 mm[Hg] Kasia Seybold - pressure External Diastolic blood 2022-05-22 19:53:00 48 mm[Hg] Killianse y Seybold - pressure External Heart rate 2022-05-22 19:53:00 55 /min Kasia S eybold - External Body temperature 2022-05-22 19:53:00 36 Jada Nereyda ey Seybold - External Respiratory rate 2022-05-22 19:53:00 14 /min Nereyda ey Seybold - External Body height 2022-05-22 19:53:00 157.5 cm Kasia Hercules eybold - External Body weight 2022-05-22 19:53:00 60.782 kg Kasia S eybold - External BMI 2022-05-22 19:53:00 24.51 kg/m2 Kasia S eybold - External Systolic blood 2022-04-30 16:41:00 127 mm[Hg] Kasia Seybold - pressure External Diastolic blood 2022-04-30 16:41:00 68 mm[Hg] Kelse y Seybold - pressure External Heart rate 2022-04-30 16:41:00 78 /min Kasia S eybold - External Body temperature 2022-04-30 16:41:00 36.61 Jada Nereyda ey Seybold - External Respiratory rate 2022-04-30 16:41:00 14 /min Nereyda ey Seybold - External Body height 2022-04-30 16:41:00 157.5 cm Kasia S eybold - External Body weight 2022-04-30 16:41:00 64.864 kg Kasia Hercules eybold - External BMI 2022-04-30 16:41:00 26.16 kg/m2 Kasia Hercules eybold - External Oxygen saturation in 2022-04-30 16:41:00 99 /min Kasia Jones - Arterial blood by External Pulse oximetry Systolic blood 2022-04-13 20:53:00 125 mm[Hg] Kasia Shepherdybold - pressure External Diastolic blood 2022-04-13 20:53:00 66 mm[Hg] Lovely durand Seybold - pressure External [...] height 2022-04-01 16:15:00 62.0 [in_i] Common S [facility] weight 2022-04-01 16:15:00 137.6 [lb_av] Common [facility] bmi 2022-04-01 16:15:00 25.16 kg/m2 [facility] oximetry 2022-04-01 16:15:00 96 % [facility] respiratory rate 2022-04-01 16:15:00 18 /min Comm on [facility] blood pressure 2022-04-01 16:15:00 169 mm[Hg] Common [facility] - systolic [facility] blood pressure 2022-04-01 16:15:00 76 mm[Hg] Common [facility] - diastolic [facility] Systolic blood 2022-03-13 22:00:00 138 mm[Hg] Kasia Jones - pressure External Diastolic blood 2022-03-13 22:00:00 56 mm[Hg] Killianse y Seybold - pressure External Heart rate [...] External Diastolic blood 2022-01-27 19:11:00 64 mm[Hg] Killianse y Seybold - pressure External Heart rate [...] 08:15:00 62.0 [in_i] Common S [facility] weight 2021-12-10 08:15:00 134.2 [lb_av] Common [facility] temperature 2021-12-10 08:15:00 97.2 [degF] Common S [facility] bmi 2021-12-10 08:15:00 24.54 kg/m2 [facility] [place] oximetry 2021-12-10 08:15:00 97 % [facility] - [facility] respiratory rate 2021-12-10 08:15:00 18 /min Comm on [facility] - [facility] blood pressure 2021-12-10 08:15:00 141 mm[Hg] [facility] - systolic [facility] blood pressure 2021-12-10 08:15:00 69 mm[Hg] [facility] - diastolic [facility] HEIGHT 2021-12-03 11:21:00 157.5 cm WEIGHT 2021-12-03 11:21:00 61.236 kg HEIGHT 2021-12-03 11:21:00 157.5 cm WEIGHT 2021-12-03 11:21:00 61.236 kg HEIGHT 2021-12-03 11:21:00 157.5 cm WEIGHT 2021-12-03 11:21:00 61.236 kg Systolic blood 2021-12-02 18:24:00 130 mm[Hg] Kasia Haold - pressure External Diastolic blood 2021-12-02 18:24:00 55 mm[Hg] Lovely Jones - pressure External Heart rate 2021-12-02 18:24:00 66 /min Kasia S cuatebold - External Body temperature 2021-12-02 18:24:00 35.72 Jada Nereyda ey Seybold - External Respiratory rate 2021-12-02 18:24:00 14 /min Nereyda cuate Shepherdybold - External Body height 2021-12-02 18:24:00 157.5 cm Kasia S cuatebold - External Body weight 2021-12-02 18:24:00 61.689 kg Kasia cuellobold - External BMI 2021-12-02 18:24:00 24.87 kg/m2 Kasia S cuatebold - External Oxygen saturation in 2021-12-02 18:24:00 99 /min Kasia Jones - Arterial blood by External Pulse oximetry Systolic blood 2021-09-27 23:37:00 125 mm[Hg] [facility] Diastolic blood 2021-09-27 23:37:00 63 mm[Hg] Unive rsity of [facility] Heart rate 2021-09-27 23:37:00 79 /min [facility] Body temperature 2021-09-27 23:37:[address] [facility] 2021-09-27 23:37:00 16 /min [facility] Body height 2021-09-27 23:37:00 157.5 cm Universi ty [facility] Body weight 2021-09-27 23:37:00 62.596 [facility] BMI 2021-09-27 23:37:00 25.24 kg/m2 [facility] Oxygen saturation in 2021-09-27 23:37:00 96 /min [facility] blood by [facility] Pulse oximetry Branch Systolic blood 2021-08-11 19:10:00 104 mm[Hg] Kasia Seybold pressure Diastolic blood 2021-08-11 19:10:00 42 mm[Hg] Kelse y Seybold pressure Heart rate 2021-08-11 19:10:00 90 /min Kasia mcwilliams Body temperature 2021-08-11 19:10:00 36.17 Jada Nereyda cuello Seybold Respiratory rate 2021-08-11 19:10:00 14 /min Nereyda cuello Seybold Body height 2021-08-11 19:10:00 157.5 cm Kasia cuelloboarron Body weight 2021-08-11 19:10:00 61.689 kg Kasia cuelloboarron BMI 2021-08-11 19:10:00 24.87 kg/m2 Kasia cuelloboarron height 2021-08-07 08:15:00 62.0 [in_i] [facility] weight 2021-08-07 08:15:00 134.8 [lb_av] Common [facility] temperature 2021-08-07 08:15:00 98 [degF] [facility] bmi 2021-08-07 08:15:00 24.65 kg/m2 [facility] oximetry 2021-08-07 08:15:00 98 % [facility] respiratory rate 2021-08-07 08:15:00 16 /min [facility] - [facility] blood pressure 2021-08-07 08:15:00 186 mm[Hg] [facility] - systolic [facility] blood pressure 2021-08-07 08:15:00 79 mm[Hg] [facility] - diastolic [facility] Systolic blood 2021-07-21 15:57:00 147 mm[Hg] [...] Heart rate 2021-05-22 14:56:00 74 /min Kasia cuellobold Body temperature 2021-05-22 14:56:00 36.67 Jada Nereyda ey Seybold Respiratory rate 2021-05-22 14:56:00 16 /min Nereyda ey Seybold Body height 2021-05-22 14:56:00 157.5 cm Kasia cuelloboarron Body weight 2021-05-22 14:56:00 61.689 kg Kasia cuelloboarron BMI 2021-05-22 14:56:00 24.87 kg/m2 Kasia cuelloboarron height 2021-05-15 14:00:00 62.0 [in_i] [facility] weight 2021-05-15 14:00:00 135.4 [lb_av] [facility] temperature 2021-05-15 14:00:00 98.6 [degF] [facility] bmi 2021-05-15 14:00:00 24.76 kg/m2 [facility] oximetry 2021-05-15 14:00:00 99 % [facility] respiratory rate 2021-05-15 14:00:00 16 /min Comm on [facility] blood pressure 2021-05-15 14:00:00 167 mm[Hg] [facility] - systolic [facility] blood pressure 2021-05-15 14:00:00 67 mm[Hg] [facility] - diastolic [facility] Systolic blood 2021-04-18 15:05:00 132 mm[Hg] Kasia Seybold pressure Diastolic blood 2021-04-18 15:05:00 67 mm[Hg] Kelse y Seybold pressure Heart rate 2021-04-18 15:05:00 84 /min Kasia cuelloboarron Body temperature 2021-04-18 15:05:00 37.28 Jada Nereyda ey Seybold Respiratory rate 2021-04-18 15:05:00 14 /min Nereyda ey Seybold Body height 2021-04-18 15:05:00 157.5 cm Kasia cuelloboarron Body weight 2021-04-18 15:05:00 60.963 kg Kasia [...] 23:21:00 185 mm[Hg] Univer sity of [facility] Diastolic blood 2020-01-18 23:21:00 99 mm[Hg] Unive rsity of pressure [facility] Heart rate 2020-01-18 23:21:00 95 /min [facility] Body temperature 2020-01-18 23:21:00 36.67 Jada Univ ersity of [facility] Respiratory rate 2020-01-18 23:21:00 18 /min Univ ersity of [facility] Oxygen saturation in 2020-01-18 23:21:00 97 /min University of Arterial blood by [facility] Pulse oximetry Branch Body weight 2020-01-18 23:17:00 63.504 kg Universi ty of [facility] BMI 2020-01-18 23:17:00 26.45 kg/m2 Universi ty of [facility] Systolic blood 2019-10-31 20:33:00 170 mm[Hg] Univer sity of pressure [facility] Diastolic blood 2019-10-31 20:33:00 73 mm[Hg] Unive rsity of pressure [facility] Heart rate 2019-10-31 20:33:00 75 /min [facility] Body temperature 2019-10-31 20:33:00 37.22 Jada Univ ersity of [facility] Respiratory rate 2019-10-31 20:33:00 19 /min Univ ers[facility] Body height 2019-10-31 20:33:00 154.9 cm Universi ty of [facility] Body weight 2019-10-31 20:33:00 62.143 kg [facility] BMI 2019-10-31 20:33:00 25.89 kg/m2 [facility] Systolic blood 2019-10-14 17:00:00 175 mm[Hg] Univer sity of pressure [facility] Diastolic blood 2019-10-14 17:00:00 76 mm[Hg] Unive rsity of pressure [facility] Heart rate 2019-10-14 17:00:00 79 /min Universi ty of [facility] Body temperature 2019-10-14 17:00:00 36.94 Jada Univ ersity of [facility] Respiratory rate 2019-10-14 17:00:00 18 /min Univ ersity of [facility] Oxygen saturation in 2019-10-14 17:00:00 96 /min University of Arterial blood by [facility] Pulse oximetry Branch Body weight 2019-10-13 08:00:00 62.46 kg Universi ty of [facility] BMI 2019-10-13 08:00:00 26.02 kg/m2 Universi ty of [facility] Body height 2019-10-12 01:27:00 154.9 cm Universi ty of [facility] Systolic blood 2019-10-14 17:00:00 175 mm[Hg] Univer sity of pressure [facility] Diastolic blood 2019-10-14 17:00:00 76 mm[Hg] Unive rsity of [facility] Heart rate 2019-10-14 17:00:00 79 /min Universi ty [facility] Body temperature 2019-10-14 17:00:00 36.94 Jada [facility] Respiratory rate 2019-10-14 17:00:00 18 /min [facility] Oxygen saturation in 2019-10-14 17:00:00 96 /min University of Arterial blood by [facility] Pulse oximetry Branch Body weight 2019-10-13 08:00:00 62.46 kg Universi ty of [facility] BMI 2019-10-13 08:00:00 26.02 kg/m2 Universi ty [facility] Body height 2019-10-12 01:27:00 154.9 cm Universi [facility] Systolic blood 2021-12-03 11:21:00 149 mm[Hg] [facility] Diastolic blood 2021-12-03 11:21:00 67 mm[Hg] [facility] S t [facility] Heart rate 2021-12-03 11:21:00 71 /min [facility] Body temperature 2021-12-03 11:21:00 36 Jada [facility] Respiratory rate 2021-12-03 11:21:00 14 /min [facility] Body height 2021-12-03 11:21:00 157.5 cm [facility] Body weight 2021-12-03 11:21:00 61.236 kg [facility] BMI 2021-12-03 11:21:00 24.69 kg/m2 [facility] Oxygen saturation in 2021-12-03 11:21:00 99 /min [facility] Arterial blood by Medical Ce nter Pulse oximetry Procedures Procedure Date / Time Performing Clinician Source Performed QUANTAFLO 2022-09-24 20:21:30 Lakia Dong - External REAGENT STRIP/BLOOD 2022 19:30:00 Naina Byrdbold - GLUCOSE External CBC WITH DIFFERENTIAL 2022-07-02 13:13:00 PrezasKenan - External LIPASE 2022-07-02 13:13:00 PrezasKenan ld - External [id number] 2022-06-23 00:00:00 RASSA [facility] [id number] 2022-06-23 00:00:00 RASSA [facility] [id number] 2022-06-23 00:00:00 RASSA [facility] [id number] 2022-06-23 00:00:00 RASSA [facility] HOME HEALTH - OTHER 2022-05-25 05:01:00 Doctor Unassigned, No [facility] [place] Name [facility] REAGENT STRIP/BLOOD 2022-04-13 20:57:00 Naina Byrdbold - GLUCOSE External URINALYSIS NONAUTO W/O 2021-12-02 19:02:03 Lakia Dong - SCOPE External POCT SARS-COV-2 ANTIGEN 2021-09-27 23:29:00 Magaly Shirley [facility] [place] ([facility] NOW) Medical Branch REAGENT STRIP/BLOOD 2021-07-21 00:00:00 Outside, Yennifer BORGES URINE CULTURE, ROUTINE 2021-04-18 16:54:00 Lakia Dong URINALYSIS, ROUTINE 2021-04-18 16:54:00 Lakia Dongbold URINE CULTURE, ROUTINE 2021-04-18 16:54:00 Lakia Dong RESULT LIPASE, SERUM 2021-04-18 16:07:00 Lakia Dong AMYLASE, SERUM 2021-04-18 16:07:00 Lakia Dong ASSIGNMENT OF BENEFITS 2021-03-11 21:17:04 Doctor Unassigned, No [facility] URINALYSIS, ROUTINE 2021-02-26 15:42:00 Lakia Dongboarron MICROSCOPIC EXAMINATION 2021-02-26 15:42:00 Lakia Dong IRON AND TIBC 2021-02-26 15:31:00 Lakia Dong FERRITIN, SERUM 2021-02-26 15:31:00 Lakia Dong VITAMIN D, 25-HYDROXY 2021-02-26 15:31:00 Lakia Dong URINALYSIS NONAUTO W/O 2021-01-13 20:39:00 Lakia Dong SCOPE URINALYSIS, COMPLETE 2020-12-25 14:31:00 Lakia Dong MICROSCOPIC EXAMINATION 2020-12-25 14:31:00 Lakia Dong CBC WITH 2020-11-28 14:10:00 Carlos Schultz DIFFERENTIAL/PLATELET CONSENT/REFUSAL FOR 2020-01-20 15:01:42 Doctor Unassigned, No [facility] DIAGNOSIS AND TREATMENT [facility] ASSIGNMENT OF BENEFITS 2020-01-20 15:01:20 Doctor Unassigned, No [facility] CT HEAD WO CONTRAST 2020-01-19 00:01:40 [facility] FOREARM 2 VW RIGHT 2020-01-18 23:53:49 Ziggy Chatterjee [facility] XR TIBIA FIBULA 2 VW 2020-01-18 23:53:49 Ziggy Chatterjee [facility] LEFT [facility] COMP. METABOLIC PANEL 2020-01-18 23:36:[address] [facility] ([id number]) [facility] CBC WITH DIFF 2020-01-18 23:36:00 Ziggy Chatterjee o [facility] [place] [facility] NOTICE OF PRIVACY 2020-01-18 23:10:17 Doctor Unassigned, No [facility] PRACTICES Name Medical Branch CONSENT/REFUSAL FOR 2020-01-18 23:09:59 Doctor Unassigned, No [facility] DIAGNOSIS AND TREATMENT Name Medical Branch POCT GLUCOSE 2019-10-14 16:42:00 Lory [facility] (AUTOMATED) Medical Branch POCT GLUCOSE 2019-10-14 13:17:00 Lory [facility] (AUTOMATED) Medical Branch LIPASE 2019-10-14 10:16:00 [facility] 2019-10-14 10:16:00 [id number] (ALB,T.PRO,BILI [facility] T,BU/BC,ALT,AST,ALK PHOS) BASIC METABOLIC PANEL 2019-10-14 10:16:00 [facility] ([facility], K, CL, CO2, Medical Branch GLUCOSE, BUN, CREATININE, CA) CBC WITH DIFF 2019-10-14 10:16:00 [facility] POCT GLUCOSE 2019-10-14 06:20:00 [facility] POCT GLUCOSE 2019-10-14 01:31:00 [facility] POCT GLUCOSE 2019-10-13 21:42:00 [facility] FL TIME OR 2019-10-13 15:15:00 Natalia Patten [facility] (NON-REPORTABLE) Medical Branch POCT GLUCOSE 2019-10-13 13:01:00 [facility] LIPASE 2019-10-13 09:59:00 [facility] COMP. METABOLIC PANEL 2019-10-13 09:59:[address] [facility] ([id number]) Medical Branch CBC WITH DIFF 2019-10-13 09:59:00 [facility] POCT GLUCOSE 2019-10-12 22:46:00 Lory [facility] (AUTOMATED) Medical Branch POCT GLUCOSE 2019-10-12 20:33:00 Lory [facility] (AUTOMATED) Medical Branch POCT GLUCOSE 2019-10-12 16:17:00 Lory [facility] (AUTOMATED) Medical Branch US GALL BLADDER 2019-10-12 14:06:30 Reese Reyes [facility] ECHO ROUTINE W/DOPPLER 2019-10-12 13:36:[facility] LIPASE 2019-10-12 10:37:00 [facility] TROPONIN I 2019-10-12 10:37:00 Lory [facility] GLYCOSYLATED HEMOGLOBIN 2019-10-12 10:37:[facility] POCT GLUCOSE 2019-10-12 10:31:00 Lory [facility] (AUTOMATED) [facility] CT ANGIOGRAM CHEST 2019-10-12 04:50:17 Frank Yanez [facility] CT ABDOMEN PELVIS W 2019-10-12 04:50:17 Frank Yanez [facility] CONTRAST [facility] XR CHEST 1 VW COVID 2019-10-12 01:59:41 Frank Yanez [facility] COVID-19 (ID NOW RAPID 2019-10-12 01:55:00 Frank Yanez [facility] TESTING) Medical Branch LIPASE 2019-10-12 01:52:00 Frank Yanez [facility] TROPONIN I 2019-10-12 01:52:00 Frank Yanez [facility] COMP. METABOLIC PANEL 2019-10-12 01:52:00 Frank Yanez [facility] ([id number]) Medical Branch LIPID PANEL 2019-10-12 01:52:00 [facility] ([id number])(TOTAL Medical Branch CHOLESTEROL, TRIGLYCERIDES, HDL) CBC WITH DIFF 2019-10-12 01:52:00 Frank Yanez [facility] PROTHROMBIN TIME / INR 2019-10-12 01:52:00 Frank Yanez [facility] N-TERMINAL PRO-BNP 2019-10-12 01:52:00 Frank Yanez [facility] LOW-DENSITY 2019-10-12 01:52:00 Lory [facility] [place] LIPOPROTEIN, DIRECT Medical Bran ch EKG-12 LEAD 2019-10-12 01:41:37 Frank Yanez [facility] EKG-12 LEAD 2019-10-12 01:39:16 Frank Yanez [facility] NOTICE OF PRIVACY 2019-10-12 01:20:17 Doctor Unassigned, No [facility] PRACTICES Name Medical Branch CONSENT/REFUSAL FOR 2019-10-12 01:19:55 Doctor Unassigned, No [facility]REAT[facility] Name [facility] Plan of Care Planned Activity Planned Date Details Comments Source Future Scheduled 2022-11-06 Influenza Vaccine (#1) [facility] 00:[facility]00 [code = Influenza Medical Ce nter Vaccine (#1)] Future Scheduled 2022-09-22 Urine screening for [facility] 00:00:00 protein (procedure) Medical Center [code = 500199971] Future Scheduled 2022-09-22 Urine screening for [facility] 00:00:00 protein (procedure) Medical Center [code = [id number]] Future Scheduled 2022-09-22 Urine screening for [facility] 00:00:00 protein (procedure) Medical Center [code = 852426392] Future Scheduled 2022-09-22 Urine screening for [facility] 00:00:00 protein (procedure) Medical Center [code = 550392294] Future Scheduled 2022-09-22 Urine screening for [facility] 00:00:00 protein (procedure) Medical Center [code = 230975603] Future Scheduled 2022-06-[address] [facility] 00:00:00 WELLNESS (YEAR 2 or Medical Center FIRST YEAR if no IPPE) [code = MEDICARE ANNUAL WELLNESS (YEAR 2 or FIRST YEAR if no IPPE)] Future Scheduled 2022-06-[address] [facility] [facility] 00:00:00 WELLNESS (YEAR 2 or Medical Center FIRST YEAR if no IPPE) [code = MEDICARE ANNUAL WELLNESS (YEAR 2 or FIRST YEAR if no IPPE)] Future Scheduled 2022-06-[address] [facility] 00:00:00 WELLNESS (YEAR 2 or Medical Center FIRST YEAR if no IPPE) [code = MEDICARE ANNUAL WELLNESS (YEAR 2 or FIRST YEAR if no IPPE)] Future Scheduled 2022-03-[address] [facility] 00[facility]:00 measurement (procedure) [facility] [code = 32493731] Future Scheduled 2021-12-[address] [facility] 00:00:00 measurement (procedure) [facility] [code = 92896293] Future Scheduled 2021-12-[address] [facility] 00:00:00 measurement (procedure) [facility] [code = 78313325] Future Scheduled 2021-12-[address] [facility] 00:00:00 measurement (procedure) [facility] [code = 98349684] Future Scheduled 2021-12-[address] [facility] 00:00:00 measurement (procedure) [facility] [code = 01553924] Future Scheduled 2021-06-06 Medicare IPPE (WELCOME C [...] - Booster for Moderna series)] Future Scheduled 2021-03-14 COVID-19 VACCINE ([facility] Booster for Moderna Medical Center series) [code = COVID-19 VACCINE (4 - Booster for Moderna series)] Future Scheduled 2021-03-14 COVID-19 VACCINE (4 - [facility] 00:00:00 Booster for Moderna Medical Center series) [code = COVID-19 VACCINE (4 - Booster for Moderna series)] Future Scheduled 2021-03-14 COVID-19 VACCINE (4 - [facility] [...] 00:00:00 examination Medical Center (regime/therapy) [code = 635116305] Future Scheduled 1957-09-06 DIABETIC EYE EXAM [code [facility] 00:00:00 = DIABETIC EYE EXAM] Medical Center Future Scheduled 1957-09-[address] [facility] 00:[facility]:00 examination Medical Center (regime/therapy) [code = 665517151] Future Scheduled 1957-09-06 DIABETIC EYE EXAM [code [facility] 00:00:00 = DIABETIC EYE EXAM] Medical Center Future Scheduled 1957-09-[address] [facility] 00:00:00 examination Medical Center (regime/therapy) [code = 851207892] Future Scheduled 1957-09-06 DIABETIC EYE EXAM [code [facility] 00:00:00 = DIABETIC EYE EXAM] Medical Center Future Scheduled 1957-09-[address] [facility] 00:00:00 examination Medical Center (regime/therapy) [code = 395387237] Future Scheduled 1957-09-06 DIABETIC EYE EXAM [code [facility] 00:00:00 = DIABETIC EYE EXAM] Medical Center Future Scheduled 1957-09-[address] [facility] 00:00:00 examination Medical Center (regime/therapy) [code = 605845012] Future Scheduled 1947 CT Colonography (combo) [facility] 00:00:00 [code = CT Colonography [facility] (combo)] Future Scheduled 1947 Screening for malignant [facility] 00:00:00 neoplasm of colon Medical Ce nter (procedure) [code = 330265398] Future Scheduled 1947 Screening for malignant [facility] 00:00:00 neoplasm of colon Medical Ce nter (procedure) [code = 758605898] Future Scheduled 1947 DXA SCAN [code = DXA [facility] 00:00:00 SCAN] [facility] Future Scheduled 1947 Screening for malignant [facility] 00:00:00 neoplasm of colon Medical Ce nter (procedure) [code = 711802330] Future Scheduled 1947 Screening for malignant [facility] 00:00:00 neoplasm of colon Medical Ce nter (procedure) [code = 471380625] Future Scheduled 1947 Sigmoidoscopy [code = [facility] 1947 Screening for malignant [facility] 00:00:00 neoplasm of breast Medical C enter (procedure) [code = 104035734] Future Scheduled 1947 CT Colonography (combo) [facility] 00:00:00 [code = CT Colonography [facility] (combo)] Future Scheduled 1947 Screening for malignant [facility] 00:00:00 neoplasm of colon Medical Ce nter (procedure) [code = 153905634] Future Scheduled 1947 Screening for malignant [facility] 00:00:00 neoplasm of colon Medical Ce nter (procedure) [code = 195308000] Future Scheduled 1947 DXA SCAN [code = DXA [facility] 00:00:00 SCAN] [facility] Future Scheduled 1947 Screening for malignant [facility] 00:00:00 neoplasm of colon Medical Ce nter (procedure) [code = 783212291] Future Scheduled 1947 Screening for malignant [facility] 00:00:00 neoplasm of colon Medical Ce nter (procedure) [code = 163667244] Future Scheduled 1947 Sigmoidoscopy [code = [facility] Sigmoidoscopy] [facility] Future Scheduled 1947 Screening for malignant [facility] 00:00:00 neoplasm of breast Medical C enter (procedure) [code = 094542488] Future Scheduled 1947 CT Colonography (combo) [facility] 00:00:00 [code = CT Colonography [facility] (combo)] Future Scheduled 1947 Screening for malignant [facility] 00:00:00 neoplasm of colon Medical Ce nter (procedure) [code = 853337605] Future Scheduled 1947 Screening for malignant [facility] 00:00:00 neoplasm of colon Medical Ce nter (procedure) [code = 634699911] Future Scheduled 1947 DXA SCAN [code = DXA [facility] 00:00:00 SCAN] [facility] Future Scheduled 1947 Screening for malignant [facility] 00:00:00 neoplasm of colon Medical Ce nter (procedure) [code = 280573528] Future Scheduled 1947 Screening for malignant [facility] 00:00:00 neoplasm of colon Medical Ce nter (procedure) [code = 218178872] Future Scheduled 1947 Sigmoidoscopy [code = [facility]] [facility] 1947 Screening for malignant [facility] 00:00:00 neoplasm of breast Medical C enter (procedure) [code = 480270885] Future Scheduled 1947 CT Colonography (combo) [facility] 00:00:00 [code = CT Colonography [facility] (combo)] Future Scheduled 1947 Screening for malignant [facility] 00:00:00 neoplasm of colon Medical Ce nter (procedure) [code = 017721787] Future Scheduled 1947 Screening for malignant [facility] 00:00:00 neoplasm of colon Medical Ce nter (procedure) [code = 527412952] Future Scheduled 1947 DXA SCAN [code = DXA [facility] 00:00:00 SCAN] [facility] Future Scheduled 1947 Screening for malignant [facility] 00:00:00 neoplasm of colon Medical Ce nter (procedure) [code = 585231772] Future Scheduled 1947 Screening for malignant [facility] 00:00:00 neoplasm of colon Medical Ce nter (procedure) [code = 402575753] Future Scheduled 1947 Sigmoidoscopy [code = [facility] Sigmoidoscopy] [facility] Future Scheduled 1947 Screening for malignant [facility] 00:00:00 neoplasm of breast Medical C enter (procedure) [code = 026190771] Future Scheduled 1947 CT Colonography (combo) [facility] Test 00:00:00 [code = CT Colonography [facility] (combo)] Future Scheduled 1947 Screening for malignant [facility] Test 00:00:00 neoplasm of colon Medical Ce nter (procedure) [code = 855278475] Future Scheduled 1947 Screening for malignant [facility] Test 00:00:00 neoplasm of colon Medical Ce nter (procedure) [code = 298653671] Future Scheduled 1947 DXA SCAN [code = DXA [facility] Test 00:00:00 SCAN] [facility] Future Scheduled 1947 Screening for malignant [facility] Test 00:00:00 neoplasm of colon Medical Ce nter (procedure) [code = 596684337] Future Scheduled 1947 Screening for malignant [facility] Test 00:00:00 neoplasm of colon Medical Ce nter (procedure) [code = 150864024] Future Scheduled 1947 Sigmoidoscopy [code = [facility]] [facility] Encounters Start End Encounter Admission Attending Care Care Encounter Source Date/Time Date/Time Type Type Clinicians Facility Department ID 2022-08-14 Outpatient STLMLC STLMLC [id number] Common 09:03:01 [id number] [facility] 2022-06-19 Outpatient STLMLC STLMLC [id number] Common 06:33:01 [id number] [facility] 2022-03-27 Outpatient STLMLC STLC [id number] Common 07:34:00 [id number] [facility] 2021-09-24 Outpatient Feaver, STLMLC STLC [id number] Common 07:19:00 José Luis [facility] 2021-07-24 Outpatient Feaver, STLMLC STLC [id number] Common 13:25:01 José Luis [facility] 2021-04-02 Outpatient Feaver[facility] ST[facility] [id number] Common 11:08:04 José Luis [id number] [facility] 2021-01-04 Emergency [facility] [id number] Univers 05:14:15 ity [facility] 2021-01-03 Emergency [facility] [id number] Univers 10:51:44 [facility] 2023-01-29 2023-01-29 Outpatient NAINA BYRD [id number] K[place] 13:30:00 13:30:00 Seybol d 2023-01-25 2023-01-25 Outpatient KASIA SPANGLER [id number] Kasia 15:00:00 15:00:00 CHATA heller 2022-12-28 2022-12-28 Outpatient KASIA LUNDY [id number] Kasia 13:45:00 13:45:00 LARISSA Seybol d 2022-10-06 2022-10-06 Outpatient DONNELL LOPEZ [id number] Kasia 13:40:00 13:40:00 Seybol d 2022-10-05 2022-10-05 Outpatient PREZADelisa KASIA MILLER [id number] Kasia 11:30:00 11:30:00 KENAN Seybol d 2022-10-02 2022-10-02 Outpatient PRERENARD KASIA MILLER [id number] Kasia 09:00:00 09:00:00 KENAN Seybol d 2022-10-01 2022-10-01 Outpatient HUNDL, KASIA MILLER [id number] Kasia 00:00:00 00:00:00 LAKIA Seybol d 2022-10-01 2022-10-01 Outpatient HUNDL KASIA MILLER [id number] Kasia 00:00:00 00:00:00 LAKIA Seybol d 2022-09-28 2022-09-28 Outpatient LAB90 KASIA MILLER [id number] Kasia 08:55:00 08:55:00 Seybol d 2022-09-28 2022-09-28 Outpatient NATKASAI TRACEY [id number] Kasia 00:00:00 00:00:00 MUHAMMED Seybo ld 2022-09-24 2022-09-24 Outpatient HUNDL KASIA MILLER [id number] Kasia 14:00:00 14:00:00 LAKIA Seybol d 2022-09-23 2022-09-23 Outpatient PRERENARD KASIA MILLER [id number] Kasia 00:00:00 00:00:00 KENAN Seybol d 2022-09-21 2022-09-21 Outpatient NAINA BYRD [id number] Kasia 16:45:00 16:45:00 Seybol d 2022 2022 Outpatient LAB47 KASIA MILLER [id number] Kasia 15:45:00 15:45:00 Seybol d 2022 2022 Outpatient NAINA BYRD [id number] Kasia 15:15:00 15:15:00 Seybol d 2022-09-03 2022-09-03 Outpatient PREKASIA GLYNN [id number] Kasia 00:00:00 00:00:00 KENAN Seybol d 2022-09-02 2022-09-02 Outpatient LAB90 KASIA MILLER [id number] Kasia 09:00:00 09:00:00 Seybol d 2022-09-02 2022-09-02 Outpatient PREZADelisa KASIA MILLER [id number] Kasia 00:00:00 00:00:00 KENAN Seybol d 2022-08-20 2022-08-20 Outpatient PREZADelisa KASIA MILLER [id number] Kasia 00:00:00 00:00:00 KENAN Seybol d 2022-08-17 2022-08-17 Outpatient NAINA BYRD KASIA MILLER [id number] Kasia 15:15:00 15:15:00 Seybol d 2022-08-10 2022-08-10 Outpatient PREZAKASIA Hercules [id number] Kasia 09:00:00 09:00:00 KENAN Seybol d 2022-08-05 2022-08-05 Outpatient KASIA MILLER [id number] Kasia 00:00:00 00:00:00 Seybol d 2022-07-20 2022-07-20 Outpatient KASIA MILLER [id number] Kasia 00:00:00 00:00:00 Seybol d 2022-07-15 2022-07-15 Outpatient KASIA MILLER [id number] Kasia 00:00:00 00:00:00 Seybol d 2022-07-09 2022-07-09 Outpatient PREZAKASIA Hercules [id number] Kasia 00:00:00 00:00:00 KENAN Seybol d 2022-07-07 2022-07-07 Outpatient PREZAKASIA Hercules [id number] Kasia 11:30:00 11:30:00 KENAN Seybol d 2022-07-02 2022-07-02 Outpatient LAB90 KASIA MILLER [id number] Kasia 08:10:00 08:10:00 Seybol d 2022-06-30 2022-06-30 Outpatient PREZAKASIA Hercules [id number] Kasia 00:00:00 00:00:00 KENAN Seybol d 2022-06-24 2022-06-24 Outpatient KASIA VELAZQUEZ [id number] Kasia 00:00:00 00:00:00 KENAN Seybol d 2022-06-23 2022-06-23 Inpatient SABRINA VasquesCL INTE.02 [id number] [facility] 13:26:00 18:27:00 Delmer 60 [facility] 2022-06-22 2022-06-22 Outpatient KASIA MILLER [id number] Kasia 00:00:00 00:00:00 Seybol d 2022-06-10 2022-06-10 Outpatient KASIA VELAZQUEZ [id number] Kasia 08:30:00 08:30:00 KENAN Seybol d 2022-06-05 2022-06-05 Outpatient KASIA VELAZQUEZ [id number] Kasia 11:30:00 11:30:00 KENAN Seybol d 2022-06-04 2022-06-04 Outpatient KASIA VELAZQUEZ [id number] Kasia 00:00:00 00:00:00 KENAN Seybol d 2022-05-28 2022-05-28 Outpatient KASIA VELAZQUEZ [id number] Kasia 10:30:00 10:30:00 KENAN Seybol d 2022-05-27 2022-05-27 Outpatient KASIA MILLER [id number] Kasia 00:00:00 00:00:00 Seybol d 2022-05-25 2022-05-25 Outpatient R [facility] [id number] Univers 00:00:00 00:00:00 ity of [facility] 2022-05-25 2022-05-25 Outpatient KASIA VELAZQUEZ [id number] Kasia 00:00:00 00:00:00 KENAN Seybol d 2022-05-25 2022-05-25 Orders Doctor GUTIERREZ 1.2.840.114 [id number] Univers 00:00:00 00:00:00 Only Unassigned, MELANI 350.1.13.[address] [facility] 4.2.7.2.686 [place] as [phone] [address] 2022-05-22 2022-05-22 Outpatient KASIA VELAZQUEZ [id number] Kasia 16:15:00 16:15:00 KENAN Seybol d 2022-05-22 2022-05-22 Outpatient LAB90 KASIA MILLER [id number] Kasia 15:50:00 15:50:00 Seybol d 2022-05-20 2022-05-20 Outpatient KASIA MILLER [id number] Kasia 00:00:00 00:00:00 Seybol d 2022-05-19 2022-05-19 Outpatient KASIA VELAZQUEZ [id number] Kasia 00:00:00 00:00:00 KENAN Seybol d 2022-05-13 2022-05-13 Outpatient LAB90 KASIA MILLER [id number] Kasia 17:05:00 17:05:00 Seybol d 2022-05-13 2022-05-13 Outpatient SULAIMAN OTTO [id number] Kasia 15:45:00 15:45:00 Seybol d 2022-05-12 2022-05-12 Outpatient NAINA BYRD [id number] Kasia 00:00:00 00:00:00 Seybol d 2022-05-06 2022-05-06 Outpatient KASIA VELAZQUEZ [id number] Kasia 00:00:00 00:00:00 KENAN Seybol d 2022-05-06 2022-05-06 Outpatient KASIA MILLER [id number] Kasia 00:00:00 00:00:00 Seybol d 2022-04-30 2022-04-30 Outpatient KASIA VELAZQUEZ [id number] Kasia 10:45:00 10:45:00 KENAN Seybol d 2022-04-30 2022-04-30 Outpatient KASIA MILLER [id number] Kasia 00:00:00 00:00:00 Seybol d 2022-04-30 2022-04-30 Outpatient KASIA MILLER [id number] Kasia 00:00:00 00:00:00 Seybol d 2022-04-20 2022-04-20 Outpatient KASIA CORRIGAN [id number] Kasia 00:00:00 00:00:00 SHANEIKA Seybo ld 2022-04-16 2022-04-16 Outpatient NAINA BYRD KASIA MILLER [id number] Kasia 00:00:00 00:00:00 Seybol d 2022-04-15 2022-04-15 Outpatient ULISESRENARD KASIA MILLER [id number] Kasia 00:00:00 00:00:00 KENAN Seybol d 2022-04-14 2022-04-14 Outpatient KASIA DONG [id number] Kasia 00:00:00 00:00:00 LAKIA Seybol d 2022-04-14 2022-04-14 Outpatient KASIA MILLER [id number] Kasia 00:00:00 00:00:00 Seybol d 2022-04-13 2022-04-13 Outpatient TRED47 KASIA MILLER [id number] Kasia 16:00:00 16:00:00 Seybol d 2022-04-13 2022-04-13 Outpatient CARSONNAINA KASIA MILLER [id number] Kasia 15:30:00 15:30:00 Seybol d 2022-04-09 2022-04-09 Outpatient LAB90 KASIA MILLER [id number] Kasia 08:20:00 08:20:00 Seybol d 2022-04-08 2022-04-08 Outpatient NAINA BYRD KASIA MILLER [id number] Kasia 00:00:00 00:00:00 Seybol d 2022-04-06 2022-04-06 Outpatient KASIA DONG [id number] Kasia 00:00:00 00:00:00 LAKIA Seybol d 2022-04-01 2022-04-01 OFFICE STLMLC STLMLC [id number] Co mmon 00:00:00 00:00:00 VISIT Spirit ESTAB PT - CHI LEVEL 2 [facility] 2022-03-27 2022-03-27 Outpatient KASIA DONG [id number] Kasia 00:00:00 00:00:00 LAKIA Seybol d 2022-03-27 2022-03-27 Outpatient KASIA MILLER [id number] Kasia 00:00:00 00:00:00 Seybol d 2022-03-24 2022-03-24 Outpatient IKER KASIA MILLER [id number] Kasia 00:00:00 00:00:00 LAKIA Seybol d 2022-03-18 2022-03-18 Outpatient KASIA MILLER [id number] Kasia 00:00:00 00:00:00 Seybol d 2022-03-18 2022-03-18 Outpatient KASIA MILLER [id number] Kasia 00:00:00 00:00:00 Seybol d 2022-03-16 2022-03-16 Outpatient IKER KASIA MILLER [id number] Kasia 15:30:00 15:30:00 LAKIA Seybol d 2022-03-13 2022-03-13 Outpatient KASIA VELAZQUEZ [id number] Kasia 16:30:00 16:30:00 KENAN Seybol d 2022-03-01 2022-03-01 Outpatient CARLOS SCHULTZ [id number] Kasia 00:00:00 00:00:00 Seybol d 2022-02-12 2022-02-12 Outpatient CARLOS SCHULTZ [id number] Kasia 00:00:00 00:00:00 Seybol d 2022-02-03 2022-02-03 Outpatient KASIA FERRARA [id number] Kasia 11:15:00 11:15:00 ALI Seybol d 2022-01-27 2022-01-27 Outpatient KASIA SPANGLER [id number] Kasia 13:15:00 13:15:00 CHATA Hao ld 2021-12-31 2021-12-31 Outpatient KASIA MILLER [id number] Kasia 08:00:00 08:00:00 Seybol d 2021-12-18 2021-12-18 Outpatient KASIA CHUNG [id number] Kasia 00:00:00 00:00:00 MALKA Seybol d 2021-12-10 2021-12-10 OFFICE STLMLC STLMLC [id number] Co mmon 00:00:00 00:00:00 VISIT EST Spir it PT LEVEL 3 - [facility] 2021-12-09 2021-12-09 Outpatient MORTAZADONAY KASIA MILLER [id number] Kasia 09:15:00 09:15:00 ALI Seybol d 2021-12-04 2021-12-04 Outpatient KASIA DONG [id number] Kasia 00:00:00 00:00:00 LAKIA Seybol d 2021-12-03 2021-12-03 Office Jaren [facility] [id number] 11:00:00 11:30:00 Visit [facility] 2021-12-03 2021-12-03 Office Jaren [facility] [id number] 11:00:00 11:30:00 Visit [facility] 2021-12-03 2021-12-03 Outpatient RAMESH LUGO SLE [id number] [facility] 11:10:42 11:10:42 CAS 2021-12-02 2021-12-02 Outpatient LAB90 KASIA MILLER [id number] Kasia 14:20:00 14:20:00 Seybol d 2021-12-02 2021-12-02 Outpatient KASIA DONG [id number] Kasia 13:30:00 13:30:00 LAKIA Seybol d 2021-11-24 2021-11-24 Outpatient CLARITA SULAIMAN MILLER [id number] Kasia 11:00:00 11:00:00 Seybol d 2021-11-24 2021-11-24 Outpatient KASIA VELAZQUEZ [id number] Kasia 00:00:00 00:00:00 KENAN Seybol d 2021-11-06 2021-11-06 Outpatient KASIA VELAZQUEZ [id number] Kasia 00:00:00 00:00:00 KENAN Seybol d 2021-10-29 2021-10-29 Outpatient KASIA VELAZQUEZ [id number] Kasia 00:00:00 00:00:00 KENAN Seybol d 2021-10-28 2021-10-28 Outpatient KASIA VELAZQUEZ [id number] Kasia 00:00:00 00:00:00 KENAN Seybol d 2021-10-21 2021-10-21 Outpatient CLEVELANDDelisa KASIA MILLER [id number] Kasia 00:00:00 00:00:00 KENAN Seybol d 2021-10-16 2021-10-16 Outpatient IKER KASIA MILLER [id number] Kasia 00:00:00 00:00:00 LAKIA Seybol d 2021-10-13 2021-10-13 Outpatient NAINA BYRD KASIA MILLER [id number] Kasia 15:45:00 15:45:00 Seybol d 2021-10-13 2021-10-13 Office NAINA BYRD 1.2.840.114 1 [id number] Kasia 15:30:00 15:30:00 [facility]13 [facility] [id number] 2021-10-01 2021-10-01 Outpatient KASIA VELAZQUEZ [id number] Kasia 00:00:00 00:00:00 KENAN Seybol d 2021-09-27 2021-09-27 Outpatient [facility] [id number] [facility] 19:40:00 20:52:32 MAGALY ruiz [facility] 2021-09-27 2021-09-27 Urgent [facility] 1.2.840. 114 [id number] [facility] 19:40:00 20:00:00 [facility] 350.1.13.10 ity of [place] 4.2.7.2.686 [place] as PRO?BLEA [id number] [address] OFFICE [facility] 2021-09-27 2021-09-27 Telephone [facility] 1.2.840.114 [id number] Univers 00:00:00 00:00:00 [facility] 350.1.13.10 i ty [facility] 4.2.7.2.686 [place] as PRO?BLEA [id number] [address] OFFICE [facility] 2021-09-25 2021-09-25 Outpatient KASIA DONG [id number] Kasia 00:00:00 00:00:00 LAKIA Seybol d 2021-09-22 2021-09-22 Outpatient LAB90 KASIA MILLER [id number] Kasia 09:00:00 09:00:00 Seybol d 2021-09-22 2021-09-22 Office Sulaiman Dong 1.2.840.114 [id number] Kasia 08:00:00 09:00:00 Visit Lakia Martin 350.1.13.13 Se ybold 1.2.7.2.686 [id number] 2021-09-16 2021-09-16 Outpatient KASIA VELAZQUEZ [id number] Kasia 00:00:00 00:00:00 KENAN Seybol d 2021-09-10 2021-09-10 Outpatient LAB90 KASIA MILLER [id number] Kasia 11:50:00 11:50:00 Seybol d 2021-09-10 2021-09-10 Office Sulaiman Dong 1.2.840.114 [id number] Kasia 11:00:00 11:30:00 Visit Lakia Martin 350.1.13.13 Se ybold 1.2.7.2.686 [id number] 2021-09-05 2021-09-05 Office Sulaiman Dong 1.2.840.114 [id number] Kasia 09:00:00 09:30:00 Visit Lakia Martin 350.1.13.13 Se ybold 1.2.7.2.686 [id number] 2021-09-04 2021-09-04 (TEL) [facility] [id number] Co mmon 00:00:00 00:00:00 [facility] 2021-09-01 2021-09-01 Outpatient KASIA DONG [id number] Kasia 00:00:00 00:00:00 LAKIA Seybol d 2021-08-20 2021-08-20 Outpatient KASIA DONG [id number] Kasia 00:00:00 00:00:00 LAKIA Seybol d 2021-08-19 2021-08-19 Outpatient KASIA DONG [id number] Kasia 00:00:00 00:00:00 LAKIA Seybol d 2021-08-18 2021-08-18 Office PatrickSulaiman alexis 1.2.840.114 [id number] Kasia 11:00:00 11:30:00 Visit Lakia Martin 350.1.13.13 Se ybold 1.2.7.2.686 [id number] 2021-08-18 2021-08-18 Outpatient KASIA DONG [id number] Kasia 00:00:00 00:00:00 LAKIA Seybol d 2021-08-11 2021-08-11 Outpatient ADE97-IZX KASIA MILLER [id number] Kasia 15:35:00 15:35:00 Seybol d 2021-08-11 2021-08-11 Office PatrickSulaiman alexis 1.2.840.114 [id number] Kasia 14:30:00 15:00:00 Visit Lakia Martin 350.1.13.13 Se ybold 1.2.7.2.686 [id number] 2021-08-11 2021-08-11 Outpatient KASIA DONG [id number] Kasia 00:00:00 00:00:00 LAKIA Seybol d 2021-08-07 2021-08-07 [facility] [id number] Co mmon 00:00:00 00:00:00 VISIT Sammy ESTAB PT - CHI LEVEL 4 [facility] 2021-07-30 2021-07-30 Outpatient KASIA DONG [id number] Kasia 00:00:00 00:00:00 LAKIA Seybol d 2021-07-21 2021-07-21 Office Naina Byrd 1.2.840.114 [id number] Kasia 11:15:00 11:45:00 Visit 350.1.13.13 Se ybold 1.2.7.2.686 [id number] 2021-07-16 2021-07-16 Outpatient KASIA DONG [id number] Kasia 00:00:00 00:00:00 LAKIA Seybol d 2021-07-12 2021-07-12 Outpatient PREZADelisa KASIA MILLER [id number] Kasia 00:00:00 00:00:00 KENAN Seybol d 2021-07-03 2021-07-03 Outpatient ULISESRENARD KASIA MILLER [id number] Kasia 00:00:00 00:00:00 KENAN Seybol d 2021-07-03 2021-07-03 Outpatient ULISESRENARD KASIA MILLER [id number] Kasia 00:00:00 00:00:00 KENAN Seybol d 2021-06-19 2021-06-19 Office Sulaiman Velazquez 1.2.840.114 [id number] Kasia 10:00:00 10:15:00 Visit Kenan Martin 350.1.13.13 Se ybold 1.2.7.2.686 [id number] 2021-05-27 2021-05-27 Outpatient KASIA DONG [id number] Kasia 00:00:00 00:00:00 LAKIA Seybol d 2021-05-26 2021-05-26 Outpatient CLEVELANDDelisa KASIA MILLER [id number] Kasia 00:00:00 00:00:00 KENAN Seybol d 2021-05-23 2021-05-23 Outpatient LAB90 KASIA MILLER [id number] Kasia 08:05:00 08:05:00 Seybol d 2021-05-22 2021-05-22 Office Sulaiman Velazquez 1.2.840.114 [id number] Kasia 10:30:00 10:45:00 Visit Kenan Martin 350.1.13.13 Se ybold 1.2.7.2.686 [id number] 2021-05-20 2021-05-20 Outpatient KASIA DOGN [id number] Kasia 00:00:00 00:00:00 LAKIA Seybol d 2021-05-15 2021-05-15 [facility] [id number] Co mmon 00:00:00 00:00:00 VISIT EST Spir it PT LEVEL 3 - [facility] 2021-05-09 2021-05-09 Outpatient KASIA MILLER [id number] Kasia 00:00:00 00:00:00 Seybol d 2021-05-06 2021-05-06 Outpatient KASIA MILLER [id number] Kasia 00:00:00 00:00:00 Seybol d 2021-05-05 2021-05-05 Outpatient KASIA MILLER [id number] Kasia 00:00:00 00:00:00 Seybol d 2021-05-02 2021-05-02 Outpatient IKER, KASIA MILLER [id number] Kasia 00:00:00 00:00:00 LAKIA Seybol d 2021-05-01 2021-05-01 Outpatient HUNDL, KASIA MILLER [id number] Kasia 00:00:00 00:00:00 LAKIA Seybol d 2021-04-28 2021-04-28 Outpatient IKER KASIA MILLER [id number] Kasia 00:00:00 00:00:00 LAKIA Seybol d 2021-04-22 2021-04-22 Outpatient KASIA DONG [id number] Kasia 00:00:00 00:00:00 LAKIA Seybol d 2021-04-18 2021-04-18 Outpatient LAB90 KASIA MILLER [id number] Kasia 09:55:00 09:55:00 Seybol d 2021-04-18 2021-04-18 Office PatrickSulaiman alexis 1.2.840.114 [id number] Kasia 09:00:00 09:30:00 Visit Lakia Martin 350.1.13.13 Se nichols 1.2.7.2.686 [id number] 2021-04-15 2021-04-15 Outpatient IKER KASIA MILLER [id number] Kasia 00:00:00 00:00:00 LAKIA Seybol d 2021-03-19 2021-03-19 Outpatient KASIA DONG [id number] Kasia 00:00:00 00:00:00 LAKIA Seybol d 2021-03-13 2021-03-13 Letter BRENDA Mcbride 1.2.840.114 [id number] Univers 00:00:00 00:00:00 (Out) Cherelle POLO 350.1.13.10 it y of [facility] 4.2.7.2.686 [place] as [phone] [facility] 019 [facility] 2021-03-11 2021-03-11 Laboratory Only, Ang Db Test [facility] 1.2.8 40.114 [id number] Univers 15:15:00 15:30:00 Only Juancarlos Lara [facility] 350.1.13.10 ity of [place] 4.2.7.2.686 [place] as PRO?BLEA [phone] [address] MEDICAL OFFICE [facility]ILDING 2021-03-11 2021-03-11 Outpatient R MARCO [facility] [id number] Univers 15:15:00 15:15:00 JUANCARLOS ity [facility] 2021-03-11 2021-03-11 Outpatient KASIA DONG [id number] Kasia 09:30:00 09:30:00 LAKIA Seybol liborio 2021-03-11 2021-03-11 Outpatient KASIA DONG [id number] Kasia 00:00:00 00:00:00 LAKIA Seybol d 2021-03-11 2021-03-11 Orders Doctor BRENDA 1.2.840.114 [id number] Univers 00:00:00 00:00:00 Only UnassignedMELANI 350.1.13.10 ity of [place] [facility] 4.2.7.2.686 [place] as [phone] [address] 2021-03-10 2021-03-10 Outpatient KASIA DONG [id number] Kasia 00:00:00 00:00:00 LAKIA Seybol d 2021-03-10 2021-03-10 Outpatient KASIA MILLER [id number] Kasia 00:00:00 00:00:00 Segrantol liborio 2021-03-06 2021-03-06 Outpatient KASIA DONG [id number] Kasia 00:00:00 00:00:00 LAKIA Seybol d 2021-03-05 2021-03-05 Telemedici Sulaiman Dong 1.2.840.114 [id number] Kasia 08:00:00 08:30:00 ne Lakia Martin 350.1.13.13 Se ybold 1.2.7.2.686 [id number] 2021-03-03 2021-03-03 Outpatient SULAIMAN OTTO KASIA MILLER [id number] Kasia 15:45:00 15:45:00 Seybol d 2021-03-03 2021-03-03 Outpatient IKER KASIA MILLER [id number] Kasia 00:00:00 00:00:00 LAKIA Seybol d 2021-03-03 2021-03-03 Outpatient IKER KASIA MILLER [id number] Kasia 00:00:00 00:00:00 LAKIA Seybol d 2021-02-26 2021-02-26 Outpatient LAB90 KASIA MILLER [id number] Kasia 09:25:00 09:25:00 Seybol d 2021-02-26 2021-02-26 Office Sulaiman Dong 1.2.840.114 [id number] Kasia 08:30:00 09:00:00 Visit Lakialadarius Martin 350.1.13.13 Se ybold 1.2.7.2.686 [id number] 2021-02-18 2021-02-18 Outpatient KASIA MILLER [id number] Kasia 00:00:00 00:00:00 Seybol d 2021-02-17 2021-02-17 Outpatient CARLOS SCHULTZ KASIA MILLER [id number] Kasia 00:00:00 00:00:00 Seybol d 2021-02-10 2021-02-10 Outpatient KASIA MILLER [id number] Kasia 00:00:00 00:00:00 Seybol d 2021-02-10 2021-02-10 Outpatient LUCY SCHULTZRoger MILLER [id number] Kasia 00:00:00 00:00:00 Seybol d 2021-02-04 2021-02-04 Outpatient PATRICKZena KASIA MILLER [id number] Kasia 00:00:00 00:00:00 LAKIA Seybol d 2021-01-31 2021-01-31 Outpatient KASIA MILLER [id number] Kasia 00:00:00 00:00:00 Seybol d 2021-01-26 2021-01-26 Outpatient HUNDL, KASIA MILLER [id number] Kasia 00:00:00 00:00:00 LAKIA Seybol d 2021-01-17 2021-01-17 Outpatient COVID-PFIZE KASIA MILLER [id number] Kasia 09:00:00 09:00:00 R BOOSTER, Sey bold SCOTT 2021-01-15 2021-01-15 Outpatient CLARITA, SULAIMAN KASIA MILLER [id number] Kasia 14:15:00 14:15:00 Seybol d 2021-01-15 2021-01-15 Outpatient HUNDL, KASIA MILLER [id number] [place] 00:00:00 00:00:00 LAKIA Seybol d 2021-01-15 2021-01-15 Outpatient HUNDL, KASIA MILLER [id number] [place]asia 00:00:00 00:00:00 LAKIA Seybol d 2021-01-15 2021-01-15 Outpatient HUNDL, KASIA MILLER [id number] [place] 00:00:00 00:00:00 LAKIA Seybol d 2021-01-14 2021-01-14 Outpatient HUNDL, KASIA MILLER [id number] Kasia 00:00:00 00:00:00 LAKIA Seybol d 2021-01-13 2021-01-13 Outpatient LAB90 KASIA MILLER [id number] Kasia 15:30:00 15:30:00 Seybol d 2021-01-13 2021-01-13 Office IkerSulaiman 1.2.840.114 [id number] Kasia 14:25:37 14:55:37 Visit Lakia Martin [id number] Se ybold 1.2.7.2.686 [id number] 2021-01-13 2021-01-13 Outpatient IKER, KASIA MILLER [id number] [place] 00:00:00 00:00:00 LAKIA Seybol d 2020-12-25 2020-12-25 Outpatient LAB90 KASIA MILLER [id number] [place] 11:10:00 11:10:00 Seybol d 2020-12-25 2020-12-25 Office IkerSulaiman [id number] [place] 09:00:08 09:30:08 Visit Lakia Martin 350.1.13.13 Se ybold 1.2.7.2.686 [id number] 2020-12-19 2020-12-19 Outpatient IKER KASIA MILLER [id number] [place] 00:00:00 00:00:00 LAKIA Seybol d 2020-12-17 2020-12-17 Office Sulaiman Dong 1.2.840.114 [id number] [place] 12:30:43 13:00:43 Visit Lakia Martin [id number] Se ybold 1.2.7.2.686 [id number] 2020-12-17 2020-12-17 Outpatient KASIA MILLER [id number] [place] 08:00:00 08:00:00 Seybol d 2020-12-09 2020-12-09 Outpatient LUCY SCHULTZRoger MILLER [id number] [place] 00:00:00 00:00:00 Seybol d 2020-12-04 2020-12-04 Outpatient LUCY SCHULTZRoger MILLER [id number] [place] 00:00:00 00:00:00 Seybol d 2020-11-29 2020-11-29 Outpatient LUCY SCHULTZRoger MILLER [id number] [place] 00:00:00 00:00:00 Seybol d 2020-11-28 2020-11-28 Outpatient LAB90 KASIA MILLER [id number] [place] 09:15:00 09:15:00 Seybol d 2020-11-28 2020-11-28 Office Carlos Schultz 1.2.840.114 [id number] [place] 08:04:39 08:49:39 Visit Paige Martin 350.1.13.13 Se ybold 1.2.7.2.686 [id number] 2020-05-13 2020-05-13 Patient JAMAL Borden 1.2.840.114 [id number] Univers 00:00:00 00:00:00 Outreach Ross JENNINGS 350.1.13.10 i renetta of [facility] [place] [id number] Mi dical [address] 2020-01-20 2020-01-20 [facility] 1.2.840.114 [id number] Univers 09:00:00 23:59:00 Encounter Michael Reeves [id number] [place] [id number] [facility] [address] 2020-01-20 2020-01-20 [facility] [id number] Univers 00:00:00 00:00:00 [facility] 2020-01-18 2020-01-18 Emergency [facility] [id number] Univers 17:14:00 18:57:00 Ziggy Reeves 350.1.13.10 [place] [id number] [facility] [address] 2020-01-18 2020-01-18 Orders Doctor BRENDA 1.2.840.114 [id number] Univers 00:00:00 00:00:00 Only Unassigned, MELANI 350.1.13.10 ity of [place] [facility] 4.2.7.2.686 [place] [id number] [facility] [address] 2019-11-28 2019-11-28 Outpatient R [facility] [id number] Univers 13:30:00 13:30:00 NATALIA beau [facility] 2019-10-31 2019-10-31 [facility] [id number] Univers 15:21:52 16:12:34 Visit Natalia Reeves 350.1.13.10 [place] [phone] Mi dical nal [address] [facility] 2019-10-31 2019-10-31 Outpatient R [facility] [id number] Univers 15:30:00 15:30:00 NATALIA beau [facility] 2019-10-16 2019-10-16 Transition Elena Li 1.2.840.114 [id number] Univers 00:00:00 00:00:00 of Care Kellen Rose 350.1.13.10 [place] [id number] [facility] [address] 2019-10-16 2019-10-16 Transition Elena Li 1.2.840.114 [id number] 00:00:00 00:00:00 of Care Kellen Peterseny 350.1.13.10 [place] 4.2.7.2.686 [phone] [facility] 2019-10-11 2019-10-14 [facility] 1.2.840. 114 [id number] [facility] 20:32:00 13:28:00 Encounter Erika Henley 350.1.13.10 ity of [place] 4.2.7.2.686 [facility] [place] [phone] [facility] [address] [place] [address] 2019-10-11 2019-10-14 [facility] 1.2.840. 114 [id number] 20:32:00 13:28:00 Encounter Erika Henley 350.1.13.10 [place] 4.2.7.2.686 [place] [phone] [facility][note 3] 2019-10-11 2019-10-11 Orders Doctor GUTIERREZ 1.2.840.114 [id number] 00:00:00 00:00:00 Only Unassigned, MELANI 350.1.13.10 [place] [facility] 4.2.7.2.686 [id number] 009 2019-10-11 2019-10-11 Orders Doctor GUTIERREZ 1.2.840.114 [id number] Univers 00:00:00 00:00:00 Only Unassigned, MELANI 350.1.13.10 ity of [place] [facility] 4.2.7.2.686 [place] as [phone] [facility] [address] 2019-09-19 2019-09-19 Laboratory Lab, [facility] 1.2.840.114 [id number] 09:57:04 10:17:04 Only Fam Pob I Health 350.1.13.10 [place] 4.2.7.2.686 Professio [phone] [place] [address] [address] 2019-09-19 2019-09-19 Laboratory Lab, Adc Fam Pob I [facility] 1.2. 840.114 [id number] Univers 09:57:04 10:17:04 Only Nayana Ferrari 350.1.13.10 ity of [place] 4.2.7.2.686 [place] as Professio [phone] Mi dical [address] Office Building [facility] 2019-09-19 2019-09-19 Outpatient R [facility] [id number] Univers 10:00:00 10:00:00 ity of [facility] 2019-09-19 2019-09-19 Letter Doctor BRENDA 1.2.840.114 [id number] 00:00:00 00:00:00 (Out) Unassigned, MELANI 350.1.13.10 [place] [facility] 4.2.7.2.686 [id number] [facility] 2019-09-19 2019-09-19 Letter Doctor GUTIERREZ 1.2.840.114 [id number] [facility] 00:00:00 00:00:00 (Out) Unassigned, MELANI 350.1.13.10 ity of [place] [facility] 4.2.7.2.686 [place] as [phone] [address] 2019-05-10 2019-05-10 [id number] Common 08:30:00 08:30:00 t Specialty/U Sp jeni Specialty rology - [facility] 2019-04-28 2019-04-28 [facility] [id number] Common 15:26:00 15:26:00 t Specialty/U Sp jeni Specialty rology - [facility] 2019-04-24 2019-04-24 [facility] 29 [id number] Common 09:00:00 09:00:00 t Specialty/U Sp jeni Specialty rology - [facility] Results Test Description Test Time Test Comments Results Result Comments Source MANI 2022-09-24 20:22:00 Test Item Value Reference Range Interpretation Comme nts [facility] left side (test code See_Comment [Automated message] The system which = 99698-7T) generated this result transmitted reference range : 1.40 - 0.90 NA. The reference range was not used to interpret this result as normal/abnormal . [employer] right side (test code See_Comment Exercise Modality: At RestNormal - = 31215-7Z) 1.40 - 1.00Bord alexsandra - 0.99 - 0.90Mild - 0.89 - 0.60Moderate - 0.59 - 0.30Severe - 0.29 - 0.00 [Automated message] The sy stem which generated this result tra nsmitted reference range: 1.40 - 0 .90 NA. The reference range was not u sed to interpret this result as chani l/abnormal. 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 [facility] GLUCOSE [id number] 12:50:00 Test Item Value Reference Range Interpretation Comments GLUCOSE BEDSIDE (test 106 MG/DL 70-110 N Perfor med by certified code = GLUBED) 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 1945 Sex: F FAX: Delmer Brown MD [phone] [place]: St: ADM FAX: Jonh Melchor [phone] Name: RENA TOLBERT 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 Views: 1 view. COMPARISON: DX XR CHEST 2 V 06/22/2022 1:58 PM FINDINGS: Lungs: Low lung volumes are present bilaterally. No consolidation. Bibasilar atelectasis. Pleural spaces: No pleural effusion. No pneumothorax. Heart/Mediastinum: Heart size is within normal limits. Atherosclerotic calcifications. Atrial appendage closure device. Bones/joints: Degenerative changes of the thoracic spine. IMPRESSION: No acute radiographic abnormality. at 1527 Reported and signed by: Nando Brown M.D. CC: Delmer Palmer MD; Jonh Melchor Technologist: Yary Patricia Trnscrd Date/Time/By: 06/23/2022 (799) : By: [email or web address] Orig Print D/T: S: 06/23/2022 ( 3188) PAGE 1 Signed ReportBASIC METABOLIC [id number] 15:31:00 Test Item Value Reference Range Interpretation Comments SODIUM (test code = 142 mEq/L 134-147 N NA) POTASSIUM (test code 4.0 mEq/L 3.4-5.0 N = K) CHLORIDE (test code 106 mEq/L 100-108 N = CL) CARBON DIOXIDE (test 30 mEq/l 21-33 N code = CO2) ANION GAP (test code 10 0-20 N = GAP) GLUCOSE (test code = 72 mg/dL 70-110 N GLU) BLOOD UREA NITROGEN 17 mg/dL 7-18 N (test code = BUN) GLOMERULAR 77.3 70-80 N The Glomerular FILTRATION RATE Filtration R ate is a (test code = GFR) calculated parameterbased on serum Creatinine, pat ient age and sex. GFR va luesless than 60 mL/min/ 1.73 square meters a re indicative ofCh ronic Kidney Disease. Values less than 15 mL/min/1.73squa re meters indicate Kidney failure. The calculation forGFR is based on the CKD-EPI (2020) calculat ion. This formulais race indifferent and is the recommended for gina for GFRby the Natio nal Kidney Foundati on for Adults.The GFR will not calculate if th e sex is unknown or if thepatient's ag e is <18 years. CREATININE (test 0.8 mg/dL 0.6-1.3 N code = CREAT) CALCIUM (test code = 9.3 mg/dL 8.0-10.5 N CA) [id number] 15:31:00 Test Item Value Reference Range Interpretation Comments PREALBUMIN (test code = PREALB) 18.1 mg/dL 16.0-40.0 N PROTHROMBIN [id number] 15:21:00 Test Item Value Reference Range Interpretation Comments PROTHROMBIN TIME 12.0 SECONDS 9.3-12.9 N PATIENT (test code = PTP) INTERNATIONAL NORMAL 1.1 0.8-1.2 N TARGET INR BY RATIO (test code = INDICATIO N Indication INR) INR1. Prophylax is of venous thrombos is 2.0 - 3.0 (orthoped ic surgery), Proph ylaxis of venous thro mbosis (other than hig h-risk surgery), Treat ment of Deep Vein Thrombosis/Pulm onary Embolism, Preve ntion of systemic emb olism - Tissue heart va lves, Acute Myocardia l Infarction (to prevent systemic emboli sm), Valvular heart disease, Atrial Fibrillation, Bileaflet mecha nical valve in aortic position.2. Mec hanical prosthetic valv es (high risk), 2. 5 - 3.5 Presence of Lup us Anticoagulant o r Antiphospholipi d Antibodies, Pre vention of systemic emb olism - Acute Myocardia l Infarction (to prevent recurrent infar ct). CBC W/AUTO [id number] 15:17:00 Test Item Value Reference Range Interpretation Comments WHITE BLOOD CELL (test code = 5.8 x10 3/uL 4.5-11.0 N WBC) RED BLOOD CELL (test code = 4.40 x10 6/uL 3.54-5.02 N RBC) HEMOGLOBIN (test code = HGB) 12.3 g/dL 11.0-15.0 N HEMATOCRIT (test code = HCT) 38.3 % 33.0-45.0 N MEAN CELL VOLUME (test code = 87.0 fL 81.0-99.0 N MCV) MEAN CELL HGB (test code = MCH) 28.0 pg 27.0-33.0 N MEAN CELL HGB CONCETRATION 32.1 g/dL 33.0-37.0 L (test code = MCHC) RED CELL DISTRIBUTION WIDTH CV 14.1 % 11.5-14.5 N (test code = RDW) RED CELL DISTRIBUTION WIDTH SD 44.5 fL 37.0-54.0 N (test code = RDW-SD) PLATELET COUNT (test code = 281 x10 3/uL 150-400 N PLT) MEAN PLATELET VOLUME (test code 10.3 fL 7.0-9.0 H = MPV) NEUTROPHIL % (test code = NT%) 56.3 % 56.0-77.0 N IMMATURE GRANULOCYTE % (test 0.3 % 0.0-2.0 N code = IG%) LYMPHOCYTE % (test code = LY%) 28.4 % 14.0-32.0 N MONOCYTE % (test code = MO%) 9.1 % 4.8-9.0 H EOSINOPHIL % (test code = EO%) 5.0 % 0.3-3.7 H BASOPHIL % (test code = BA%) 0.9 % 0.0-2.0 N NUCLEATED RBC % (test code = 0.0 % 0-0 N NRBC%) NEUTROPHIL # (test code = NT#) 3.27 x10 3/uL 2.0-7.6 N IMMATURE GRANULOCYTE # (test 0.02 x10 3/uL 0.00-0.03 N code = IG#) LYMPHOCYTE # (test code = LY#) 1.65 x10 3/uL 1.0-3.8 N MONOCYTE # (test code = MO#) 0.53 x10 3/uL 0.1-0.8 N EOSINOPHIL # (test code = EO#) 0.29 x10 3/uL 0.0-0.2 H BASOPHIL # (test code = BA#) 0.05 x10 3/uL 0.0-0.2 N NUCLEATED RBC # (test code = 0.00 x10 3/uL 0.0-0.1 N NRBC#) MANUAL DIFF REQUIRED (test code NO = MDIFF) - XR CHEST 2 [id number] 00:00:00 [facility] : 1945 Sex: F FAX: Delmer Brown MD [phone] [place]: St: PRE Name: RENA TOLBERT [facility] : 1945 Age/S: 76/F [address] [place], [place] [address]vd Unit #: [id number] Loc: [place] [address] Phys: Delmer Palmer MD Acct: [id number] Dis Date: Status: PRE SDC PHONE #: [phone] Exam Date: 06/22/2022 1405 FAX #: [phone] Reason: PRE OP EXAMS: CPT CODE: [id number] XR CHEST 2 V 49439 PROCEDURE INFORMATION: Exam: XR Chest Exam date and time: 06/22/2022 1:58 PM Age: 76 years old Clinical indication: Pre-operative exam; Cardiovascular screening and respiratory screening exam; Additional info: Pre op TECHNIQUE: Imaging protocol: Radiologic exam of the chest. Views: 2 views. PA and Lateral COMPARISON: No relevant prior studies available. FINDINGS: Lungs: There are normal lung volumes without consolidation or interstitial opacities. Pleural spaces: Unremarkable. No pleural effusion. No pneumothorax. Heart/Mediastinum: The heart size is normal. The pulmonary vasculature is normal. The mediastinal contour is normal. The trachea is midline. Bones/joints: No acute abnormality seen. IMPRESSION: No acute cardiopulmonary findings. at 1602 Reported and signed by: Vadim Oseguera M.D. CC: Delmer Palmer MD Technologist: Perdo Salgado Date/Time/By: 06/22/2022 (214) : By: Ariel Orig Print D/T: S: 06/22/2022 (9874) PAGE 1 Signed ReportREAGENT STRIP/BLOOD [id number] 20:57:00 Test Item Value Reference Range Interpretation Comments BLOOD SUGAR (test code = 991907) 273 mg/dL 65-99 A Lab Interpretation (test code = Abnormal 87951-8) Kasia Gale ExternalURINALYSIS NONAUTO W/O [id number] 19:02:00 Test Item Value Reference Range Interpretation Comments UD KETONES (test code = NEG 5-160 242197) UD GLUCOSE (test code = NEG 100-2000 585468) UD PROTEIN (test code = NEG Trace - 2000 mg/dL 323014) UD LEUKOCYTES (test NEG Trace - Large @ 2 code = 851135) min. UD NITRITE (test code = NEG Neg. - Pos. @ 60 657490) sec. UD UROBILINOGEN (test 0.2 mg/dL 0.2-8 code = 903539) UD PH (test code = See_Comment [Automat ed 160215) message] The sy stem which generated this result transmitted reference range : 5.0 - 8.5 @ 60 sec.. The refer ence range was not u sed to interpret th is result as normal/abnormal . UD BLOOD (test code = NEG Neg. - Large @ 60 720798) sec. UD SPECIFIC GRAVITY See_Comment [Automa sven (test code = 791759) message ] The system which generated this result transmitted reference range : 1.000 - 1.030 @ 45 sec.. The refer ence range was not u sed to interpret th is result as normal/abnormal . UD BILIRUBIN (test code NEG Neg. - Large @ 45 = 828661) sec. Lab Interpretation Normal (test code = 26874-7) Kasia SlaterPOCT SARS-COV-2 ANTIGEN (BINAX NOW)2021-09-27 23:44:00 Test Item Value Reference Range Interpretation Comments POCT SARS-COV-2 ANTIGEN (test code = Positive Not Detected A 5033) On board controls acceptable with C Yes Line (test code = 3574) Lab Interpretation (test code = Abnormal 92872-1) [facility] [id number] 00:00:00 Test Item Value Reference Range Interpretation Comments BLOOD SUGAR (test code = 792542) 180 mg/dL 65-99 A Lab Interpretation (test code = Abnormal 13965-9) Kasia Irving CULTURE, [id number] 10:06:00 Test Item Value Reference Range Interpretation Comments URINE CULTURE, ROUTINE Final report (test code = 630-4) FELICITA (test code = FELICITA) [facility] results reported in Eastern Time. [facility] Clinical Information:SRC:Urine*U rine ?L[facility] Source of Specimen:Urine*Urine Kasia Irving CULTURE, ROUTINE [id number] 10:06:00RESULT 1Comment: Culture shows less than 10,000 colony forming units of bacteria permilliliter of urine. This colony count is not generally consideredto be clinically significant. [facility] Jaz HaoldLIPASE, [id number] 14:37:00 Test Item Value Reference Range Interpretation Comments LIPASE, SERUM (test 54 U/L code = 3040-3) FELICITA (test code = FELICITA) [facility] results reported in [place] Time. [facility] Clinical Information:[facility] Source of Specimen:Blood, venous*Venipunc Kasia JonesAMYLASE, [id number] 14:37:00 Test Item Value Reference Range Interpretation Comments AMYLASE, SERUM (test 44 U/L 31-110 code = 1798-8) FELICITA (test code = FELICITA) [facility] results reported in [place] Time. [facility] Clinical Information:SRC:Blood, venous*Venipunc ture ? [facility] Source of Specimen:Blood, venous*Venipjoyce HaoldURINALYSIS, [id number] 13:43:00 Test Item Value Reference Range Interpretation Comments SPECIFIC GRAVITY 1.005-1.030 (test code = 5811-5) PH (test code = 5.0-7.5 5803-2) URINE-COLOR (test Yellow Yellow code = 5778-6) APPEARANCE (test Clear Clear code = 5767-9) WBC ESTERASE (test Negative Negative code = 5799-2) PROTEIN (test code Negative Negative/Trace = 59429-5) GLUCOSE (test code Negative Negative = 93379-1) KETONES (test code Negative Negative = 2034-8) OCCULT BLOOD (test Negative Negative code = 5794-3) BILIRUBIN (test Negative Negative code = 5770-3) UROBILINOGEN,SEMI-Q 0.2 mg/dL 0.2-1.0 N (test code = 36060-7) NITRITE, URINE Negative Negative (test code = 5802-4) MICROSCOPIC Microscopic not EXAMINATION (test indicated and not code = 07310-6) performed. FELICITA (test code = [facility] results FELICITA) reported in Eastern Time. [facility] Clinical Information:SRC: Urine*Urine ?[facility] Source of Specimen:Urine*U rine Kasia SeyboldURINALYSIS, [id number] 15:30:00 Test Item Value Reference Range Interpretation Comments SPECIFIC GRAVITY 1.005-1.030 (test code = 2965-2) PH (test code = 5.0-7.5 5803-2) URINE-COLOR (test Yellow Yellow code = 5778-6) APPEARANCE (test code Cloudy Clear A = 5767-9) WBC ESTERASE (test 3+ Negative A code = 5799-2) PROTEIN (test code = 1+ Negative/Trace A 15899-0) GLUCOSE (test code = 1+ Negative A 2349-9) KETONES (test code = Negative Negative 2514-8) OCCULT BLOOD (test Trace Negative A code = 5794-3) BILIRUBIN (test code Negative Negative = 5770-3) UROBILINOGEN,SEMI-QN 0.2 mg/dL 0.2-1.0 (test code = 61601-6) NITRITE, URINE (test Positive Negative A code = 5802-4) MICROSCOPIC See below: Microscopic was EXAMINATION (test indicated and was code = 15915-0) performed. FELICITA (test code = FELICITA) [facility] results reported in Eastern Time. [facility] Clinical Information:SRC :Urine*Urine ?[facility] Source of Specimen:Urine* Urine Lab Interpretation Abnormal (test code = 97565-6) Kasia SeyboldMICROSCOPIC [id number] 15:30:00 Test Item Value Reference Range Interpretation Comments WBC (test code = >30 See_Comment A [Automated 5821-4) message] The system which generated this result transmit sven reference range : 0 - 5 /hpf. The reference range was not used to interpret this result as normal/abnormal . RBC (test code = 0-2 See_Comment [Automated 42505-5) message] The system which generated this result [...] code = None seen None seen /lpf 90167-7) BACTERIA (test code = Many None seen/Few A 5769-5) FELICITA (test code = FELICITA) [facility] results reported in Eastern Time. [facility] Clinical Information:SRC :Urine*Urine ?[facility] Source of Specimen:Urine* Urine Lab Interpretation Abnormal (test code = 79885-4) Kasia ShepherdyboldIRON AND [id number] 14:37:00 Test Item Value Reference Range Interpretation Comments IRON BIND.CAP.(TIBC) (test 420 ug/dL 250-450 code = 2500-7) UIBC (test code = 2501-5) 372 ug/dL 118-369 H IRON, SERUM (test code = 48 ug/dL 27-139 2498-4) IRON SATURATION (test code 11 % 15-55 L = 2502-3) FELICITA (test code = FELICITA) [facility] results reported in [place] Time. [facility] Clinical Information:SRC:Blo od, venous*Venipunc ture ? [facility] Source of Specimen:Blood, venous*Venipunc Lab Interpretation (test Abnormal code = 58496-4) Kasia ShepherdyboldFERRITIN, [id number] 14:26:00 Test Item Value Reference Range Interpretation Comments FERRITIN, SERUM (test 19 ng/mL 15-150 code = 2276-4) FELICITA (test code = FELICITA) [facility] results reported in [place] Time. [facility] Clinical Information:SRC:Blood, venous*Venipunc ture ? [facility] Source of Specimen:Blood, venous*Venipunc Kasia HaoldVITAMIN D, [id number] 14:15:00 Test Item Value Reference Range Interpretation Comments VITAMIN D, 25-HYDROXY 21.2 ng/mL 30.0-100.0 L Vitami n D deficiency (test code = 80983-2) has be en defined by the [place] of[place] and an Endocrine Socie ty practice guidel ine as alevel of se rum 25-OH vitamin D less than 20 ng/mL (1,2).The Endoc rine Society went on to further define vitamin Dinsufficiency as a level between 2 1 and 29 ng/mL (2).1. IOM ([place] of [employer]). 2010 . Dietary referen ce ? intakes for ranjan cium and D. [place] on DC: The ? [employer] .2. Anthony MF, Nicolás CAMPOS, Vivien [...] c Lab Interpretation Abnormal (test code = 15548-4) Kasia ShepherdyboldURINALYSIS NONAUTO W/O [id number] 20:39:00 Test Item Value Reference Range Interpretation Comments UD KETONES (test code = neg 5-160 575618) UD GLUCOSE (test code = neg 100-2000 882563) UD PROTEIN (test code = neg Trace - 2000 mg/dL 740347) UD LEUKOCYTES (test mod Trace - Large @ 2 code = 973365) min. UD NITRITE (test code = neg Neg. - Pos. @ 60 414149) sec. UD UROBILINOGEN (test 0.2 mg/dL 0.2-8 code = 009549) UD PH (test code = See_Comment [Automat ed 596189) message] The sy stem which generated this result transmitted reference range : 5.0 - 8.5 @ 60 sec.. The refer ence range was not u sed to interpret th is result as normal/abnormal . UD BLOOD (test code = neg Neg. - Large @ 60 850045) sec. UD SPECIFIC GRAVITY See_Comment [Automa sven (test code = 686957) message ] The system which generated this result transmitted reference range : 1.000 - 1.030 @ 45 sec.. The refer ence range was not u sed to interpret th is result as normal/abnormal . UD BILIRUBIN (test code neg Neg. - Large @ 45 = 284816) sec. Lab Interpretation Abnormal (test code = 49107-8) Kasia JonesURINALYSIS, [id number] 20:13:00 Test Item Value Reference Range Interpretation Comments SPECIFIC GRAVITY (test 1.005-1.030 code = 2965-2) PH (test code = 5803-2) 5.0-7.5 URINE-COLOR (test code = Yellow Yellow 5778-6) APPEARANCE (test code = Hazy Clear A 5767-9) WBC ESTERASE (test code = 2+ Negative A 5799-2) PROTEIN (test code = Negative Negative/Trace 36732-6) GLUCOSE (test code = Negative Negative 2349-9) KETONES (test code = Negative Negative 2514-8) OCCULT BLOOD (test code = Trace Negative A 5794-3) BILIRUBIN (test code = Negative Negative 5770-3) UROBILINOGEN,SEMI-QN (test 0.2 mg/dL 0.2-1.0 code = 61330-3) NITRITE, URINE (test code Negative Negative = 5802-4) MICROSCOPIC EXAMINATION See below: (test code = 12947-1) FELICITA (test code = FELICITA) [facility] results reported in Eastern Time. [facility] Clinical Information:SRC:Uri ne ?LCA Source of Specimen:Urine Lab Interpretation (test Abnormal code = 94255-2) Kasia SeyboldMICROSCOPIC [id number] 20:13:00 Test Item Value Reference Range Interpretation Comments WBC (test code = >30 See_Comment A [Automated 5821-4) message] The system which generated this result transmit vsen reference range : 0 - 5 /hpf. The reference range was not used to interpret this result as normal/abnormal . RBC (test code = 0-2 See_Comment [Automated 05107-0) message] The system which generated this result [...] Specimen:Urine Lab Interpretation Abnormal (test code = 85194-5) [facility] DIFFERENTIAL/[id number] 13:17:00 Test Item Value Reference Range Interpretation [...] 0 % Not Estab. (test code = 30354-1) IMMATURE GRANS (ABS) See_Comment [Autom ated (test code = 94131-8) messag e] The system which generated this result transmit sven reference range : 0.0 - 0.1 x10E3/uL. The reference range was not used to interpret this result as normal/abnormal . FELICITA (test code = FELICITA) [facility] results reported in Eastern Time. [facility] Clinical Information:SRC :Blood, venous*Venipunc ture ? [facility] Source of Specimen:Blood, venous*Venipunc Lab Interpretation Abnormal (test code = 37443-2) Kasia JonesCT HEAD WO [id number] 00:47:44 No acute intracranial abnormality. Preliminary Report [...] reviewed this study and agree with theabove report.[facility]. METABOLIC PANEL (07149)2020-01-19 00:02:00 Test Item Value Reference Range Interpretation Comments NA (test code = 138 mmol/L 135-145 9399113359) K (test code = 4.3 mmol/L 3.5-5 1228549979) CL (test code = 102 mmol/L 98-108 6789946904) CO2 TOTAL (test code = 27 mmol/L 23-31 1635268569) AGAP (test code = 2-16 2526176193) BUN (test code = 18 mg/dL 7-23 7009682049) GLUCOSE (test code = 294 mg/dL 70-110 H 5511017313) CREATININE (test code = 0.71 mg/dL 0.5-1.04 3865326782) TOTAL BILI (test code = 0.4 mg/dL 0.1-1.9 4002326783) CALCIUM (test code = 10.4 mg/dL 8.6-10.6 7507805660) T PROTEIN (test code = 7.7 g/dL 6.3-8.2 3039998112) ALBUMIN (test code = 4.6 g/dL 3.5-5 8793214789) ALK PHOS (test code = 73 U/L 34-122 2912919081) ALTv (test code = 26 U/L 5-35 1742-6) AST(SGOT) (test code = 29 U/L 13-40 5911706393) eGFR Calculation mL/min/1.73m2 (Non-) (test code = 4699938000) eGFR Calculation mL/min/1.73m2 () (test code = 3958469724) FELICITA (test code = FELICITA) Association of [...] tests). Lab Interpretation Abnormal (test code = 23176-4) [facility] WITH [id number] 23:54:00 Test Item Value Reference Range Interpretation Comments WBC (test code = See_Comment [Automated message] 7590-2) The system [facility] generated this result transmitted ref erence range: 4.30 - 1 1.10 10*3/?L. The re ference range was not u sed to interpret this result as normal/abnor mal. RBC (test code = See_Comment [Automated message] 249-8) The system [facility] generated this result transmitted ref erence range: [...] RDW-SD (test code 40.7 fL 39-49.9 = 76151-2) RDW-CV (test code 13.1 % 12-15.5 = 788-0) PLT (test code = See_Comment [Automated message] 417-3) The system [facility] generated this result transmitted ref erence range: 166 - 35 8 10*3/?L. The re ference range was not u sed to interpret this result as normal/abnor mal. MPV (test code = 10.2 fL 9.5-12.9 35414-1) NRBC/100 WBC (test See_Comment [Automat ed message] code = 7749796882) The syste m which generated this result transmitted ref erence range: 0.0 - 10 .0 /100 WBCs. The refer ence range was not u sed to interpret this result as normal/abnor mal. NRBC x10^3 (test <0.01 See_Comment [Automated message] code = 8316692969) The syste m which generated this result transmitted ref erence range: 10*3/?L. The reference range was not used to interpr et this result as normal/abnormal . GRAN MAT (NEUT) % 51.4 % (test code = 770-8) IMM GRAN % (test 0.70 % code = 2748559012) LYMPH % (test code 33.2 % = 736-9) MONO % (test code 9.0 % = 5905-5) EOS % (test code = 4.8 % 713-8) BASO % (test code 0.9 % = 706-2) GRAN MAT 2.91 10*3/uL 1.88-7.09 x10^3(ANC) (test code = 2393422012) IMM GRAN x10^3 0.04 10*3/uL 0-0.06 (test code = 8258280125) LYMPH x10^3 (test 1.88 10*3/uL 1.32-3.29 code = 731-0) MONO x10^3 (test 0.51 10*3/uL 0.33-0.92 code = 742-7) EOS x10^3 (test 0.27 10*3/uL 0.03-0.39 code = 711-2) BASO x10^3 (test 0.05 10*3/uL 0.01-0.07 code = 704-7) [facility] GLUCOSE (AUTOMATED)2019-10-14 16:44:00 Test Item Value Reference Range Interpretation Comments POCT GLU (test code = 9735572891) 331 mg/dL 70-110 H Lab Interpretation (test code = Abnormal 98732-3) [facility] GLUCOSE (AUTOMATED)2019-10-14 13:19:00 Test Item Value Reference Range Interpretation Comments POCT GLU (test code = 7593690738) 237 mg/dL 70-110 H Lab Interpretation (test code = Abnormal 45718-1) [facility] (NA, K, CL, CO2, GLUCOSE, BUN, CREATININE, CA)2019-10-14 12:35:00 Test Item Value Reference Range Interpretation Comments NA (test code = 135 mmol/L 135-145 2598367569) K (test code = 4.0 mmol/L 3.5-5 4922260515) CL (test code = 102 mmol/L 98-108 0332946956) CO2 TOTAL (test code = 26 mmol/L 23-31 6748160320) AGAP (test code = 2-16 7012459827) BUN (test code = 19 mg/dL 7-23 8885468788) GLUCOSE (test code = 269 mg/dL 70-110 H 7287202699) CREATININE (test code = 0.70 mg/dL 0.5-1.04 7747674143) CALCIUM (test code = 9.4 mg/dL 8.6-10.6 3052734008) eGFR Calculation mL/min/1.73m2 (Non-) (test code = 7477706679) eGFR Calculation mL/min/1.73m2 () (test code = 4342453886) FELICITA (test code = FELICITA) Association of [...] tests). Lab Interpretation Abnormal (test code = 78534-9) [facility] 12[facility]35:00 Test Item Value Reference Range Interpretation Comments LIPASE (test code = 7360205959) 158 U/L 0-220 Lab Interpretation (test code = Normal 25112-5) [facility] (11937[facility] (ALB,T.PRO,BILI T,BU/BC,ALT,AST,ALK PHOS)2019-10-14 12:35:00 Test Item Value Reference Range Interpretation Comments TOTAL BILI (test code = 9378117315) 0.4 mg/dL 0.1-1.1 BILI UNCON (test code = 4384220922) 0.5 mg/dL 0.1-1.1 BILI CONJ (test code = 1233043167) 0.0 mg/dL 0-0.3 T PROTEIN (test code = 5370501088) 7.3 g/dL 6.3-8.2 ALBUMIN (test code = 2247023219) 4.1 g/dL 3.5-5 ALK PHOS (test code = 1405047095) 46 U/L 34-122 ALTv (test code = 1742-6) 45 U/L 5-35 H AST(SGOT) (test code = 1916424567) 43 U/L 13-40 H Lab Interpretation (test code = Abnormal 44315-7) [facility] CenterCBC with [id number] 12:26:00 Test Item Value Reference Range Interpretation Comments WBC (test code = See_Comment [Automated 8325-2) message] The sy stem which generated this [...] RDW-SD (test code = 41.1 fL 39-49.9 60400-9) RDW-CV (test code = 13.1 % 12-15.5 788-0) PLT (test code = See_Comment [Automated 777-3) message] The sy stem which generated this result transmitted reference range : 166 - 358 10*3/ ?L. The reference r liya was not used to interpret this result as normal/abnormal . MPV (test code = 10.7 fL 9.5-12.9 24522-2) NRBC/100 WBC (test See_Comment [Automat ed code = 0758503272) message] The system which generated this result transmitted reference range : 0.0 - 10.0 /100 WBCs. The refer ence range was not u sed to interpret th is result as normal/abnormal . NRBC x10^3 (test code <0.01 See_Comment [Auto mated = 5189836199) message] The s ystem which generated this result transmitted reference range : 10*3/?L. The reference range was not used to interpret this result as normal/abnormal . GRAN MAT (NEUT) % 74.5 % (test code = 770-8) IMM GRAN % (test code 0.30 % = 2070151866) LYMPH % (test code = 16.3 % 736-9) MONO % (test code = 8.8 % 5905-5) EOS % (test code = 0.0 % 713-8) BASO % (test code = 0.1 % 706-2) GRAN MAT x10^3(ANC) 5.79 10*3/uL 1.88-7.09 (test code = 3348945059) IMM GRAN x10^3 (test <0.03 0-0.06 code = 0249582314) LYMPH x10^3 (test code 1.27 10*3/uL 1.32-3.29 L = 731-0) MONO x10^3 (test code 0.68 10*3/uL 0.33-0.92 = 742-7) EOS x10^3 (test code = <0.03 0.03-0.39 L 711-2) BASO x10^3 (test code <0.03 0.01-0.07 = 704-7) Lab Interpretation Abnormal (test code = 54373-2) [facility] GLUCOSE (AUTOMATED)2019-10-14 06:22:00 Test Item Value Reference Range Interpretation Comments POCT GLU (test code = 4384088382) 328 mg/dL 70-110 H Lab Interpretation (test code = Abnormal 68563-8) [facility] GLUCOSE (AUTOMATED)2019-10-14 01:39:00 Test Item Value Reference Range Interpretation Comments POCT GLU (test code = 424 mg/dL 70-110 H Notifi ed Provider 5758665109) Lab Interpretation (test Abnormal code = 97971-3) [facility] GLUCOSE (AUTOMATED)2019-10-13 21:45:00 Test Item Value Reference Range Interpretation Comments POCT GLU (test code = 1566345799) 282 mg/dL 70-110 H Lab Interpretation (test code = Abnormal 36756-2) [facility] Center[facility] OR (NON-REPORTABLE)2019-10-13 15:31:01 These images do not require a Radiology diagnostic report.[facility] GLUCOSE (AUTOMATED)2019-10-13 13:05:00 Test Item Value Reference Range Interpretation Comments POCT GLU (test code = 5939237232) 167 mg/dL 70-110 H Lab Interpretation (test code = Abnormal 23959-4) [facility]. METABOLIC PANEL (25800)2019-10-13 12:42:00 Test Item Value Reference Range Interpretation Comments NA (test code = 137 mmol/L 135-145 5874878897) K (test code = 4.0 mmol/L 3.5-5 0345668447) CL (test code = 107 mmol/L 98-108 8708646047) CO2 TOTAL (test code = 25 mmol/L 23-31 1685760274) AGAP (test code = 2-16 1251170753) BUN (test code = 11 mg/dL 7-23 9823236492) GLUCOSE (test code = 154 mg/dL 70-110 H 5711886762) CREATININE (test code = 0.56 mg/dL 0.5-1.04 8077179047) TOTAL BILI (test code = 0.3 mg/dL 0.1-1.2 6946193209) CALCIUM (test code = 9.1 mg/dL 8.6-10.6 6338027145) T PROTEIN (test code = 6.5 g/dL 6.3-8.2 9809880090) ALBUMIN (test code = 3.6 g/dL 3.5-5 4729198545) ALK PHOS (test code = 40 U/L 34-122 6478070723) ALTv (test code = 24 U/L 5-35 1742-6) AST(SGOT) (test code = 31 U/L 13-40 4848384618) eGFR Calculation mL/min/1.73m2 (Non-) (test code = 7931384262) eGFR Calculation mL/min/1.73m2 () (test code = 7849722014) FELICITA (test code = FELICITA) Association of [...] tests). Lab Interpretation Abnormal (test code = 35048-0) [facility] 12:41:00 Test Item Value Reference Range Interpretation Comments LIPASE (test code = 7694470296) 130 U/L 0-220 Lab Interpretation (test code = Normal 05865-9) [facility] CenterCB with [id number] 12:16:00 Test Item Value Reference Range Interpretation [...] RDW-SD (test code = 43.5 fL 39-49.9 06184-8) RDW-CV (test code = 13.2 % 12-15.5 788-0) PLT (test code = See_Comment [Automated 777-3) message] The sy stem which generated this result transmitted reference range : 166 - 358 10*3/ ?L. The reference r liya was not used to interpret this result as normal/abnormal . MPV (test code = 10.2 fL 9.5-12.9 77627-5) NRBC/100 WBC (test See_Comment [Automat ed code = 3003321725) message] The system which generated this result transmitted reference range : 0.0 - 10.0 /100 WBCs. The refer ence range was not u sed to interpret th is result as normal/abnormal . NRBC x10^3 (test code <0.01 See_Comment [Auto mated = 2929804539) message] The s ystem which generated this result transmitted reference range : 10*3/?L. The reference range was not used to interpret this result as normal/abnormal . GRAN MAT (NEUT) % 47.5 % (test code = 770-8) IMM GRAN % (test code 0.20 % = 7446216350) LYMPH % (test code = 36.4 % 736-9) MONO % (test code = 10.3 % 5905-5) EOS % (test code = 4.9 % 713-8) BASO % (test code = 0.7 % 706-2) GRAN MAT x10^3(ANC) 2.02 10*3/uL 1.88-7.09 (test code = 3642764291) IMM GRAN x10^3 (test <0.03 0-0.06 code = 0497075547) LYMPH x10^3 (test code 1.55 10*3/uL 1.32-3.29 = 731-0) MONO x10^3 (test code 0.44 10*3/uL 0.33-0.92 = 742-7) EOS x10^3 (test code = 0.21 10*3/uL 0.03-0.39 711-2) BASO x10^3 (test code 0.03 10*3/uL 0.01-0.07 = 704-7) Lab Interpretation Abnormal (test code = 18386-6) [facility] CenterLOW-DENSITY LIPOPROTEIN, [id number] 08:29:00 Test Item Value Reference Range Interpretation Comments dLDL Chol (test code = 14499-5) 76 mg/dL <130 Lab Interpretation (test code = Normal 88791-5) [facility] GLUCOSE (AUTOMATED)2019-10-12 22:49:00 Test Item Value Reference Range Interpretation Comments POCT GLU (test code = 3385924718) 249 mg/dL 70-110 H Lab Interpretation (test code = Abnormal 88653-1) [facility] CenterLIPID PANEL (97468)(TOTAL CHOLESTEROL, TRIGLYCERIDES, HDL)2019-10-12 21:11:00 Test Item Value Reference Range Interpretation Comments CHOL (test code = 172 mg/dL 120-200 2436721502) HDL (test code = 32 mg/dL >50 L 8216939560) HDLC RATIO (test code = See_Comment H [Au tomated message] 6180088262) The system [facility] generated this result transmitted ref erence range: <=4.5. T he reference range was not used to int erpret this result as normal/abnormal . TRIG (test code = 491 mg/dL 30-170 H 8346610345) LDL CHOL (test code = Unable to calculate 89729-8) LDL due to elev ated triglyceride le tatyana greater than 40 0 mg/dL. VLDL (test code = 98 mg/dL 5-60 H 0486016220) Lab Interpretation Abnormal (test code = 28801-8) [facility] GLUCOSE (AUTOMATED)2019-10-12 21:05:00 Test Item Value Reference Range Interpretation Comments POCT GLU (test code = 8759949722) 180 mg/dL 70-110 H Lab Interpretation (test code = Abnormal 37771-3) [facility] GLUCOSE (AUTOMATED)2019-10-12 16:39:00 Test Item Value Reference Range Interpretation Comments POCT GLU (test code = 1673861980) 212 mg/dL 70-110 H Lab Interpretation (test code = Abnormal 65941-9) [facility] CenterUS GALL [id number] 14:16:58HISTORY: Gallstones, pancreatitis. TECHNIQUE: Gallbladder is evaluated [...] CONCLUSION: Chronic cholecystitis with single mobile gallstone. [facility], Radiant Results Inft User - 10/12/2019 9:18 [...] CONCLUSION: Chronic cholecystitis with single mobile gallstone. [facility] CenterCT ABDOMEN PELVIS W [id number] 13:04:17 1. ?Minimal fullness of the pancreatic [...] intrathoracic findings. LIVER: No focal hepatic lesions. ?[id number] contour. GALLBLADDER AND BILIARY TREE: Partially decompressed [...] detailed intrathoracic findings.LIVER: No focal hepatic lesions. Uumj424mi contour.GALLBLADDER AND BILIARY TREE:Partially decompressed gallbladder containingcholelithiasis. [...] reviewed this study and agree with theabove report.[facility] CenterCT ANGIOGRAM [id number] 12:37:46 1. ?No evidence of a pulmonary [...] reviewed this study and agree with theabove report.[facility] CenterTRSELF [facility] HEALTHCARETONYA I 2019-10-12 12:12:00 Test Item Value Reference Range Interpretation Comments TROPONIN I (test <0.012 See_Comment [Automated code = 5194361161) message] The system which generated this result [...] ? Lab Interpretation Normal (test code = 21346-6) [facility] CenterGlycosylated Hemoglobin (A1C)2019-10-12 12:05:00 Test Item Value Reference Range Interpretation Comments HGB A1C (test code = 9.0 % 4-6 H 4548-4) FELICITA (test code = FELICITA) %A1C (NGSP) Interpretation (ADA)4.8-5.6 ? ? Normal or (Non-Diabetic Range)5.7-6.4 ? ? Increased Risk (Pre-Diabetic)>6.5 ?Diabetes Indicated Lab Interpretation Abnormal (test code = 09180-2) [facility] CenterL[facility]2020-08-[facility] 12:01:00 Test Item Value Reference Range Interpretation Comments LIPASE (test code = 7328083288) 500 U/L 0-220 H Lab Interpretation (test code = Abnormal 52512-1) [facility] CenterPOCT GLU[facility]SE (AUTOMATED)2019-10-12 10:34:00 Test Item Value Reference Range Interpretation Comments POCT GLU (test code = 1869980757) 251 mg/dL 70-110 H Lab Interpretation (test code = Abnormal 93659-3) [facility] CenterXR CHEST 1 VW [id number] 05:33:21 No acute intrathoracic abnormality, specifically no detectable radiographicfindings to suggest COVID-19 pneumonia. Disclaimer: Generally, the findings on chest imaging in COVID-19 are notspecific, andoverlap with other infections, including influenza, H1N1,SARS and MERS.According to the Centers for Disease Control (CDC) and recent statement ofthe [employer], viral testing remains the [...] Surgical clips project over the right neck. [facility], Radiant Results Inft User - 10/12/2019 12:34 [...] Disease Control (CDC) and recent statement ofthe [employer], viral testing remains the only specificmethod of diagnosis. Confirmation with the viral test is required, even ifradiologic findings are suggestive of COVID-[address]. Preliminary Report Dictated by Resident: Kya Vigil MD., have reviewed this study and agree with the abovereport.[facility] [id number] 03:07:00 Test Item Value Reference Range Interpretation Comments LIPASE (test code = 9874580412) 4504 U/L 0-220 H Lab Interpretation (test code = Abnormal 51732-5) [facility] CenterTROPONIN [id number] 02:38:00 Test Item Value Reference Range Interpretation Comments TROPONIN I (test <0.012 See_Comment [Automated code = 2480430579) message] The system which generated this result [...] ? Lab Interpretation Normal (test code = 04936-7) [facility] CenterN-TERMINAL [id number] 02:35:00 Test Item Value Reference Range Interpretation Comments NT-proBNP (test code 115 pg/mL See_Comment [Autom ated = 9529370598) message] The system which generated this result transmitted reference range : <=125. The reference range was not used to interpret this result as normal/abnormal . FELICITA (test code = FELICITA) Biotin has been reported to cause a negative bias, interpret results relative to patient's use of biotin. Lab Interpretation Normal (test code = 20779-3) [facility] CenterCOMP. METABOLIC PANEL (45575)2019-10-12 02:26:00 Test Item Value Reference Range Interpretation Comments NA (test code = 134 mmol/L 135-145 L 7004246993) K (test code = 4.4 mmol/L 3.5-5 2673008898) CL (test code = 100 mmol/L 98-108 4170674246) CO2 TOTAL (test code = 24 mmol/L 23-31 5706696207) AGAP (test code = 2-16 5914790878) BUN (test code = 28 mg/dL 7-23 H 0397928280) GLUCOSE (test code = 253 mg/dL 70-110 H 8143292060) CREATININE (test code = 0.88 mg/dL 0.5-1.04 2947869742) TOTAL BILI (test code = 0.2 mg/dL 0.1-1.1 7344369541) CALCIUM (test code = 10.5 mg/dL 8.6-10.6 4447860290) T PROTEIN (test code = 7.8 g/dL 6.3-8.2 2074649495) ALBUMIN (test code = 4.5 g/dL 3.5-5 3741038374) ALK PHOS (test code = 60 U/L 34-122 6229549537) ALTv (test code = 19 U/L 5-35 1742-6) AST(SGOT) (test code = 22 U/L 13-40 2586996720) eGFR Calculation mL/min/1.73m2 (Non-) (test code = 7861347445) eGFR Calculation mL/min/1.73m2 () (test code = 6826998503) FELICITA (test code = FELICITA) Association of [...] tests). Lab Interpretation Abnormal (test code = 66355-3) [facility] CenterCOVID-19 (ID NOW RAPID TESTING)2019-10-12 02:24:00 Test Item Value Reference Range Interpretation Comments SARS-CoV-2 Rapid ID NOW Not Detected Not Detected (test code = 54726-8) FELICITA (test code = FELICITA) ID NOW COVID-19 Assay is an isothermal nucleic acid amplification test intended for the qualitative detection of nucleic acid from SARS-CoV-2 viral RNA in nasopharyngeal ([employer]IST) specimens. It is used under Emergency Use [...] indicated. Lab Interpretation Normal (test code = 18574-6) [facility] CenterPROTHROMBIN TIME / [id number] 02:11:00 Test Item Value Reference Range Interpretation Comments PROTIME PATIENT (test See_Comment [Auto mated message] code = 5964-2) The system [employer] generated this result transmitted ref erence range: 12.0 - 1 4.7 Seconds. The re ference range was not u sed to interpret this result as normal/abnor mal. INR (test code = 6301-6) Nor mal INR <1.1; Warfarin Therap eutic range 2.0 to 3. 0 or 2.5 to 3.5, dep ending upon the indica tions. Lab Interpretation (test Normal code = 91549-3) [facility] WITH [id number] 02:04:00 Test Item Value Reference Range Interpretation Comments WBC (test code = See_Comment [Automated message] 6690-2) The system [facility] generated this result transmitted ref erence range: 4.30 - 1 1.10 10*3/?L. The re ference range was not u sed to interpret this result as normal/abnor mal. RBC (test code = See_Comment [Automated message] 789-8) The system [facility] generated this result transmitted ref erence range: [...] RDW-SD (test code 40.9 fL 39-49.9 = 89922-5) RDW-CV (test code 12.9 % 12-15.5 = 788-0) PLT (test code = See_Comment [Automated message] 777-3) The system [facility] generated this result transmitted ref erence range: 166 - 35 8 10*3/?L. The re ference range was not u sed to interpret this result as normal/abnor mal. MPV (test code = 10.2 fL 9.5-12.9 11204-2) NRBC/100 WBC (test See_Comment [Automat ed message] code = 1449128143) The [employer] which generated this result transmitted ref erence range: 0.0 - 10 .0 /100 WBCs. The refer ence range was not u sed to interpret this result as normal/abnor mal. NRBC x10^3 (test <0.01 See_Comment [Automated message] code = 0045285588) The syste m which generated this result transmitted ref erence range: 10*3/?L. The reference range was not used to interpr et this result as normal/abnormal . GRAN MAT (NEUT) % 46.5 % (test code = 770-8) IMM GRAN % (test 0.50 % code = 0019432976) LYMPH % (test code 38.7 % = 736-9) MONO % (test code 9.3 % = 5905-5) EOS % (test code = 4.1 % 713-8) BASO % (test code 0.9 % = 706-2) GRAN MAT 2.71 10*3/uL 1.88-7.09 x10^3(ANC) (test code = 4363875440) IMM GRAN x10^3 0.03 10*3/uL 0-0.06 (test code = 8020269115) LYMPH x10^3 (test 2.25 10*3/uL 1.32-3.29 code = 731-0) MONO x10^3 (test 0.54 10*3/uL 0.33-0.92 code = 742-7) EOS x10^3 (test 0.24 10*3/uL 0.03-0.39 code = 711-2) BASO x10^3 (test 0.05 10*3/uL 0.01-0.07 code = 704-7) [facility] Progress Notes Date/Time Note Provider Source 2022-09-25 07:51:18-00:00 Formatting of this note migh t be different from the original. [facility] Lab letter sent to address on file and via MKO 2022-09-24 18:27:35-00:00 Formatting of this note migh t be different from the original. [facility] Results reviewed and released to O. Notes Date/Time Note Provider Source 2022-09-24 [place] 13:57:11-00:00 Patient is here for physical . , history reviewed. C/O tooth pain, states she thinks it is infected. VSS, medications reconciled Clinic Electronically signed by Hodan Richards at 2022 2:12 PM CDT 2022-06-30 [id number] [facility] 11:01:00-00:[address] [place] [address] PATIENT NAME: RENA TOLBERT ADMIT DATE: 06/23/22 ACCOUNT NO: [id number] ROOM NO: THERESA AGE: 77 REPORT TYPE: OPERATIVE REPORT SEX: F ADMITTING PHYSICIAN:Delmer Palmer MD ATTENDING PHYSICIAN:Delmer Palmer MD OPERATION DATE: 06/23/2022 PREOPERATIVE DIAGNOSIS: POSTOPERATIVE DIAGNOSIS: PROCEDURE PERFORMED: Left atrial appendage closu re using 31-mm Watchman FLX closure device. SURGEON: Delmer Palmer MD DRUM SEALER: ANESTHESIA: INDICATION: Atrial fibrillation with high CHADS- VASc score and inability to tolerate anticoagulant. ACCESS: Right femoral vein, 16-[place] closed wit h ehmnyh-jx-cwask suture. COMPLICATIONS: None. BLEEDING: Less than 50 mL PROCEDURE IN DETAIL: After r isks, benefits and alternatives were explained, the patient agreed to proceed and signed inf ormed consent. The patient was brought into the cardiac catheterization Laboratory, pre pped and draped in the usual sterile fashion. Anesthesia team inserted a YULI probe and YULI was performed, appendage seemed to be suitable for closure. The n, access right femoral vein using a micropuncture kit and ultrasound guidance and placed 8-[place] sheath and gave partial dose of heparin and then took SL1 sheath into the SVC over a J-wire and then with the [place] needle in side and descended into interatrial septum and transseptal puncture was performed successfully and LA pressure was 12 mmHg. Then, I sent a ProTrack wi re into the left atrium, exchanged the SL1 sheath for a Watchman double c urve sheath and then I took a pigtail catheter into the left atrium and naviga sven into the appendage and telescoped the Watchman sheath over it i nto the appendage. Appendage angiogram was performed and determined a 31 mm device will be suitable for closure. The device was deaired and prepp ed in the usual sterile fashion and the pigtail was removed. Device was introduced into the Watchman sheath and secured in place and then device was deployed under YULI and fluoroscopic guidance. PASS criteria evaluated and met such device was releas ed and removed the delivery system and the Watchman sheath out and [place] sheath was removed and dqjscb-sp-odggw suture PATIENT NAME: RENA TOLBERT 60 was used with good hemostasis was noted. The pat ient was sent to recovery in stable condition. During the procedure, full dos e heparin was given to assure ACT level above 250. CONCLUSION: Successful left atrial appendage suraj sure using 31-mm Watchman FLX closure device. Dictated By: Delmer Palmer MD Date Dictated: 06/30/2022 11:01:39 Date Transcribed: 06/30/2022 12:38:59 /KENDY Receipt ID: [id number] Authenticated by Delmer Palmer MD On 09/15/2022 10:54:31 AM Electronically Signed by Delmer Palmer MD on at 1054 PATIENT NAME: RENA TOLBERT 62 2022-06-23 [id number] [facility] 16:55:00-00:[address] [place] [address] PATIENT NAME: RENA TOLBERT ADMIT DATE: 06/23/22 ACCOUNT NO: [id number] ROOM NO: [facility] AGE: 76 REPORT TYPE: eECHOCARDIOGRAM REPORT SEX: F ADMITTING PHYSICIAN:Delmer Palmer MD ATTENDING PHYSICIAN:Delmer Palmer MD *[facility]* [address] [place] [address] Limited Transthoracic Echocardiogram Patient: Rena Tolbert Study Date: 06/23/2022 BP: 161 / 57 Location: [facility] URN: [id number] : 1945 Age: 76 Height: 62 in / 157.5 cm Gender: F Weight: 134 lb / 60.9 kg BMI/BSA: 24.6 kg/m 2 / 1.64 m 2 *Ordering Physician: * Jonh Melchor *Interpreting Physician: * Apolinar Quevedo MD *[employer] Gas[employer]: * Gris Peoples Indications: RULE OUT PERICARDIAL EFFUSION. Study data: Transthoracic echocardiogram, limite d study. Procedure: Transthoracic echocardiography was performed. Im ages were obtained using a [employer] cardiac ultrasound machine. Image quality w as fair. Limited 2D and limited spectral Doppler. Location: Bedside. Pat ient status: Inpatient. Patient room number: EP BAY 1. Study status: LISA. Findings Left ventricle: Systolic function is normal. The estimated ejection fraction is 55-60%. Features are consistent with a pseudonormal left ventricular filling pattern, with concomitant ab normal relaxation and increased filling pressure (grade 2 diastolic dy sfunction). Tricuspid valve: There is mild regurgitation. Pericardium: There is no pericardial effusion. PATIENT NAME: RENA TOLBERT 62 Systemic veins: Inferior vena cava: The vessel is normal in size . The respirophasic diameter changes are in the normal range (= 50%) . Measurements Left ventricle Value Ref ESD/bsa major ax, A4C 3.2 cm/m 2 ------ SIMBA/bsa minor ax, A4C 3.2 cm/m 2 ------ SIMBA major ax, A2C 6.3 cm ------ SIMBA/bsa major ax, A2C 3.9 cm/m 2 ------ E', lat kamryn, TDI -5.3 cm/sec >=10.0 E/e', lat kamryn, TDI -20 ------ E', med kamryn, TDI -5.1 cm/sec >=7.0 E/e', med kamryn, TDI -21 ------ E', avg, TDI 5.2 cm/sec ------ E/e', avg, TDI 20 <=14 Mitral valve Value Ref Peak E -0.05 m/sec ------ Peak A 0.5 m/sec ------ Decel time 222 ms ------ Peak E/A ratio 2.08 ------ Tricuspid valve Value Ref TR peak v -2.55 m/sec <=2.8 Peak RV-RA grad, S 26 mm Hg ------ Conclusions Summary: 1. Left ventricle: Systolic function is normal. The estimated ejection fraction is 55-60%. Features are consistent wit h a pseudonormal left ventricular filling pattern, with concomitant a bnormal relaxation and increased filling pressure (grade 2 diastolic d ysfunction). 2. Pericardium, extracardiac: There is no perica rdial effusion. 3. Inferior vena cava: The vessel is normal in s ize. The respirophasic diameter changes are in the normal range (= 50% ). Prepared and electronically signed by Apolinar Quevedo MD 06/23/2022 16:55 Electronically Signed by Apolinar Quevedo MD on 0 06/23/22 at 1655 PATIENT NAME: RENA TOLBERT 62 2022-06-23 [facility] 13:33:00-00:00 [facility] ([facility]) Discharge Summary REPORT#:[id number] REPORT STATUS: Signed DATE:06/23/22 TIME: 1333 PATIENT: RENA TOLBERT UNIT #: [id number] ROOM/BED: [place] [id number] : 47 AGE: 77 SEX: F ATTEND: Omar Palmer MD ADM AUTHOR: Jonh Melchor * ALL edits or amendments must be made on the [employer]/computer document * PCP PCP Discharge to: home General Information Discharge date: 06/23/22 Discharge diagnosis: AFIB Hospital course: Patient with paroxysmal atrial fibrillation, SHANNA DSVASC score of 6, and intolerance to long-term anticoagulation due to GI bleeding. Patient is s/p successful implantation of a 31mm Watchman device in the left atrial appendage. Patient tolerated the procedure without post-op complications. No thrombus was identified in the pre-/intra-op YULI. Postoperatively, chest x-ray is negative for any acute process. Post-op echo did not show a pericardial effusion. Patient ambulated without an y difficulty, and heart rate and blood pressure are stable. Right groin suture removed by this SALESFORCE SPECIALIST. No infect ion, bleeding, or hematoma. Dermabond applied and intact. Patient was provided with post-Watchman discharg e instructions. Patient is to follow up with PCP and medical billing coordinator in 1 to 2 we eks post discharge. Patient is to follow up with medical billing coordinator for th e 45-day YULI, and for anticoagulation recommendation. Patient is to continue Eliquis for 6 weeks, then transition to aspirin and Plavix. Duration of aspirin is lifelong. Duration of Plavix is 6 months post 45-day YULI. Post-Watchman discharge instructions given to th e patient who verbalized understanding, and patient w as instructed to report any complaints of chest pain , shortness of breath, lightheadedness, or dizzi ness to the medical billing coordinator. Dispo: It is medically necessary that patients u ndergoing percutaneous left atrial appendage occlusion are admitted as an in patient. This patient had a recovery that was earlier than expected and can be discharged today. Med Rec PCP PCP: PCP: No Primary or Family Physician Med Rec Discharge meds: Continue taking these medications: amLODIPine (NORVASC) 5 MG TAB 5 MILLIGRAM ORAL DAILY. ALFUZOSIN ER (UROXATRAL) 10 MG TAB.SR.24H 10 MILLIGRAM ORAL BEDTIME. ASPIRIN (ASPIRIN) 81 MG TAB.CHEW 81 MILLIGRAM ORAL DAILY. ATORVASTATIN (LIPITOR) 20 MG TAB 20 MILLIGRAM ORAL DAILY. CELECOXIB (CeleBREX) 200 MG CAP 200 MILLIGRAM ORAL TWICE DAILY. CETIRIZINE (ZyrTEC) 5 MG TAB 10 MILLIGRAM ORAL DAILY. as needed for ALLERGIE S DOCUSATE SODIUM (COLACE) 50 MG CAP 100 MILLIGRAM ORAL DAILY. [ESTRADIOL] 0.1 FUROSEMIDE (LASIX) 20 MG TAB 20 MILLIGRAM ORAL DAILY. FERROUS SULFATE (FEOSOL) 325 MG (65 MG IRON) TAB 325 MILLIGRAM ORAL DAILY. INSULIN GLARGINE (BASAGLAR KWIKPEN U-100 (15mL)) 100 UNIT/ML (3 ML) PEN.INJCTR 35 UNITS SUBCUTANEOUS BEDTIME. LISINOPRIL (ZESTRIL) 20 MG TAB 20 MILLIGRAM ORAL DAILY. ONDANSETRON (ZOFRAN) 4 MG TAB 4 MILLIGRAM ORAL EVERY 8 HR NEEDED. as neede d for NAUSEA/VOMITING PANTOPRAZOLE DR (PROTONIX) 20 MG TAB.DR 40 MILLIGRAM ORAL DAILY. SOTALOL (BETAPACE) 80 MG TAB 80 MILLIGRAM ORAL TWICE DAILY. metFORMIN (GLUCOPHAGE) 500 MG TAB 500 MILLIGRAM ORAL TWICE DAILY. Instructions: TAKE WITH MEALS NITROFURANTOIN MACROCRYSTAL (MACRODANTIN) 100 MG CAP 100 MILLIGRAM ORAL DAILY. NITROGLYCERIN (NITROSTAT) 0.4 MG TAB.SL 0.4 MILLIGRAM SUBLINGUAL EVERY 5 MINUTES NEE DED. as needed for CHEST PAIN ZINC ACETATE (GALZIN) 50 MG (ZINC) CAP 50 MILLIGRAM ORAL THREE TIMES A DAY. MULTIVITAMIN (MULTIPLE VITAMIN) 1 TAB TAB 1 TABLET ORAL DAILY. Start taking the following new medications: APIXABAN (ELIQUIS) 5 MG TAB 5 MILLIGRAM ORAL TWICE DAILY. Days = 30 Qty = 60 Refills = 3 Objective VS/I O 24 hour I O ending at 0700: 06/23 0700 06/22 1900 Intake Total Output Total Balance Patient 60.9 kg Weight Weight Standing scale Measurement Method PATIENT WEIGHT: Weight (lb): 134 Weight (oz): 4.18 Weight (kg): 60.900 General appearance: alert, awake, oriented Cardiovascular: regular rate rhythm Respiratory: clear to auscultation, no distress GI: soft, non-tender Extremities: moves all Neuro/LOGISTICS ASSISTANT: alert, oriented X 3 Skin: dry Wound/incision: Location: Right groin suture removed by this SALESFORCE SPECIALIST. No infect ion, bleeding, or hematoma. Dermabond applied and intact. Results Findings/Data: Laboratory Tests: 06/23 06/23 06/23 1239 1147 0935 Chemistry POC Glucose (70 - 110 MG/DL) 106 62 L 73 Coagulation Activated Coag Time (74 - 137 SEC) 245 H Radiology data: Recent Impressions: RADIOLOGY - XR CHEST 2 V 06/22 1400 Report Impression - Status: SIGNED Entered: 06/22/2022 1602 IMPRESSION: No acute cardiopulmonary findings. Impression By: Hayden Anderson Treatments Procedures Imaging: Recent Impressions: RADIOLOGY - XR CHEST 2 V 06/22 1400 Report Impression - Status: SIGNED Entered: 06/22/2022 1602 IMPRESSION: No acute cardiopulmonary findings. Impression By: Hayden Anderson Discharge Instructions PCP PCP: PCP: No Primary or Family Physician )( Discharge to: Home/Self Care Discharge Instructions Additional Discharge Routines: Attending Follow- Up )( Diet: Cardiac )( Activity: As Tolerated Follow-up Appointments Attending Physician: Attending Physician: Delmer Palmer MD Attending physician follow up timeframe: In 1-2 weeks Electronically Signed by Jonh Melchor 06/24/22 at 0634 Electronically Signed by Delmer Palmer MD on 01/28 at 1051 RPT #:[id number] END OF REPORT 2022-06-23 [id number] [facility]ACL 13:20:00-00:[address] [place] [id number] PATIENT NAME: RENA TOLBERT ADMIT DATE: 06/23/22 ACCOUNT NO: [id number] [facility]GE[facility] 76 REPORT TYPE: eELECTROCARDIOGRAM REPORT SEX: F ADMITTING PHYSICIAN:Delmer Palmer MD ATTENDING PHYSICIAN:Delmer Palmer MD Order: [id number] Test Reason : POST WATCHMAN Test Date/Time Stamp: WedJun 23 2022 13:20:40 Blood Pressure : / mmHG Vent. Rate : 053 BPM Atrial Rate : 053 BPM P-R Int : 170 ms QRS Dur : 076 ms QT Int : 548 ms P-R-T Axes : 076 060 082 degree s QTc Int : 514 ms Sinus bradycardia Prolonged QT Abnormal ECG When compared with ECG of 22-JUN-2022 12:54, No significant change was found Confirmed by DANIEL BOWMAN MD ([id number]) on 06/24/19 9:25:49 PM Referred By: Delmer Palmer Confirmed by:DANIEL BRIDGES MD Electronically Signed by Daniel Bowman MD on at 2120 PATIENT NAME: RENA TOLBERT 62 2022-06-22 [facility] 22:11:00-00:00 [facility] ([facility]) Consultation Note - Brief REPORT#:[id number] REPORT STATUS: Signed DATE:06/22/22 TIME: 2210 PATIENT: RENA TOLBERT UNIT #: [id number] ROOM/BED: : 47 AGE: 76 SEX: F ATTEND: Omar Palmer MD ADM AUTHOR: Omari Jameson MD * ALL edits or amendments must be made on the el [employer]ronic/computer document * History of Present Illness HPI Requesting Clinician: Dr. Palmer Reason for consult: Watchman shared decision Chief complaint: Patient here for preop evaluation, preop lab work and watchman shared decision for scheduled Watchman device placement tomorrow . PCP: PCP: No Primary or Family Physician History of present illness: 76-year-old woman here for preop evaluation for elective watchman device placement tomorrow. Patient with history of paroxysmal atrial fibrillation and unable to take anticoagulation due to severe GI bleed. History - Adult longitudinal Past medical history: Reports: Atrial fibrillation, Congestive heart f ailure (chronic diatolic), Coronary artery disease, Diabetes mellitus, GERD /gastritis, Hypertension, Transient ischemic attack, Dyslipidemia. Additional surgical history: Cardiac stent placement Family history: Reports: CAD < 40 yrs old. Alcohol use: Denies EtOH use Drug use: Denies recreational drugs Smoking status for patients 13 years old or olde r: Never Smoker Medications: Home Medications: Medication Dose/Rte/Freq Days Qty Entered Last Max Daily Dose Reviewed amLODIPine (NORVASC) 5 MG PO DAILY 06/22/22 Strength: 5 MG TAB 1247 ALFUZOSIN ER 10 MG PO BEDTIME 06/22/22 (UROXATRAL) 1248 Strength: 10 MG TAB.SR.24H ASPIRIN 81 MG PO DAILY 06/22/22 Strength: 81 MG TAB.CHEW 1248 ATORVASTATIN (LIPITOR) 20 MG PO DAILY 06/22/22 Strength: 20 MG TAB 1248 CELECOXIB (CeleBREX) 200 MG PO BID 06/22/22 Strength: 200 MG CAP 1249 CETIRIZINE (ZyrTEC) 10 MG PO 06/22/22 Strength: 5 MG TAB DAILY PRN ALLERGIES 1249 DOCUSATE SODIUM 100 MG PO DAILY 06/22/22 (COLACE) 1249 Strength: 50 MG CAP [ESTRADIOL] 0.1 06/22/22 Strength: 1250 FUROSEMIDE (LASIX) 20 MG PO DAILY 06/22/22 Strength: 20 MG TAB 1251 FERROUS SULFATE 325 MG PO DAILY 06/22/22 (FEOSOL) 1251 Strength: 325 MG (65 MG IRON) TAB INSULIN GLARGINE 35 UNITS SUBQ 06/22/22 (BASAGLAR KWIKPEN U-100 BEDTIME 1251 (15mL)) Strength: 100 UNIT/ML (3 ML) PEN.INJCTR LISINOPRIL (ZESTRIL) 20 MG PO DAILY 06/22/22 Strength: 20 MG TAB 1252 ONDANSETRON (ZOFRAN) 4 MG PO 06/22/22 Strength: 4 MG TAB Q8H PRN PRN 1252 NAUSEA/VOMITING PANTOPRAZOLE DR 40 MG PO DAILY 06/22/22 (PROTONIX) 1252 Strength: 20 MG TAB.DR SOTALOL (BETAPACE) 80 MG PO BID 06/22/22 Strength: 80 MG TAB 1252 metFORMIN (GLUCOPHAGE) 500 MG PO BID 06/22/22 Strength: 500 MG TAB 1253 NITROFURANTOIN 100 MG PO DAILY 06/22/22 MACROCRYSTAL 1253 (MACRODANTIN) Strength: 100 MG CAP NITROGLYCERIN 0.4 MG SL 06/22/22 (NITROSTAT) Q5M PRN PRN CHEST 1254 Strength: 0.4 MG TAB.SL PAIN ZINC ACETATE (GALZIN) 50 MG PO TID 06/22/22 Strength: 50 MG (ZINC) CAP 1254 MULTIVITAMIN 1 TAB PO DAILY 06/22/22 (MULTIPLE VITAMIN) 1254 Strength: 1 TAB TAB Allergies: Coded Allergies: No Known Allergies (06/22/22) Ambulatory status: Independent Brief Consult Note Physical Exam Vitals: Blood pressure 112/60, pulse of 63, respiratory rate of 12 General appearance: alert, awake, oriented HEENT: anicteric, sclera clear Neck: full range of motion, no bruit/NL carotids , no JVD Cardiovascular: regular rate rhythm, normal hear t sounds Respiratory: clear to auscultation, no distress, no tenderness, aerating well Abdomen: soft, non-tender, no guarding, no rebou nd, no distention Neuro/LOGISTICS ASSISTANT: alert, oriented X 3, normal speech, n o motor deficits, no sensory deficits Extremities: Bilat moves all, Bilat no edema Skin: dry, intact, no gross abnormalities, chani l color, no abscess, no rash Findings/Data: Recent Impressions: RADIOLOGY - XR CHEST 2 V 06/22 1400 Report Impression - Status: SIGNED Entered: 06/22/2022 1602 IMPRESSION: No acute cardiopulmonary findings. Impression By: Hayden Anderson Laboratory Tests 06/22/22 1320: [Embedded Image Not Available] Free Text A P: Patient with prior history o f A-fib with RVR, previously on anticoagulation but had to be stopped due to GI bleed. Patient meets criteria for watchman device inser tion. [id number] DS Vasc score is 6 Has bled score is 4 NICE questionnaire done with patient at 6525 RPT #:[id number] END OF REPORT 2022-06-22 [id number] [facility] 12:54:00-00:[address] [place] [id number] PATIENT NAME: RENA TOLBERT ADMIT DATE: ACCOUNT NO: [id number] ROOM NO: AGE: 76 REPORT TYPE: eELECTROCARDIOGRAM REPORT SEX: F ADMITTING PHYSICIAN: ATTENDING PHYSICIAN:Delmer Palmer MD Order: [id number] Test Reason : PREOP Test Date/Time Stamp: WedJun 22 2022 12:54:48 Blood Pressure : / mmHG Vent. Rate : 058 BPM Atrial Rate : 058 BPM P-R Int : 156 ms QRS Dur : 078 ms QT Int : 488 ms P-R-T Axes : 038 082 046 degree s QTc Int : 479 ms Sinus bradycardia Otherwise normal ECG No previous ECGs available Confirmed by JUAN PABLO LUGO, DANIEL ([id number]) on 06/23/19 3:43:39 PM Referred By: Delmer Palmer Confirmed by:DANIEL BRIDGES MD Electronically Signed by Daniel Bowman MD on at 5464 PATIENT NAME: RENA TOLBERT 62"
--- NOTE | 2022-10-02 14:09 | RAD REPORT ---
EXAM DESCRIPTION: [place] Single View10/02/2022 1:58 pm CLINICAL HISTORY: Chest pain COMPARISON: 06/2022 FINDINGS: The lungs appear clear of acute infiltrate. The heart is normal size IMPRESSION: No acute abnormalities displayed
[2022-10-02] MEDS ORDERED: METOPROLOL TAR 25 MG TAB ONE ×2 (14:20→14:24)
[2022-10-02] MEDS ORDERED: ASPIRIN 81 MG CHEWABLE TABLET ONE (14:20)
[2022-10-02] MEDS ORDERED: MORPHINE 2 MG/ML SYR ONE ×3 (14:20→17:42)
[2022-10-02] MEDS ORDERED: FAMOTIDINE 20 MG/2 ML VIAL IV ONE (14:21)
[2022-10-02] MEDS ORDERED: NA CHLORIDE 0.9% 1,000 ML ONE (14:21)
[2022-10-02] MEDS ORDERED: ONDANSETRON 4 MG/2 ML VIAL ONE (14:21)
[2022-10-02] MEDS ORDERED: METOPROLOL TARTRATE 5 MG/5 ML INJ IV ONE (14:21)
[2022-10-02 14:45] LABS: Absolute Lymphocytes (CBC) 1.1 K/uL (0.7-4.9); Hematocrit 32.7 % (36.0-45.0); Lymphocytes % 20.5 % (15.3-44.8); MCV 87.1 fL (80-100); MPV 8.2 fL (7.6-11.3); RBC Red Blood Cell Count 3.75 M/uL (3.86-4.86)
[2022-10-02 15:03] LABS: ALT/SGPT 24 U/L (13-56); AST/SGOT 16 U/L (15-37); Albumin 3.5 g/dL (3.4-5.0); Alkaline Phosphatase 66 U/L (45-117); BUN Blood Urea Nitrogen 25 mg/dL (7-18); Bicarbonate 22 mEq/L (21-32); Bilirubin Total 0.2 mg/dL (0.2-1.0); Glomerular Filtration Rate 60 ml/min (=/>90); Glucose Level 133 mg/dL (74-106); Lipase 140 U/L (13-75); Magnesium 1.2 mg/dL (1.6-2.4); NT PRO-BNP 136 pg/mL (<450); Potassium 4.2 mEq/L (3.5-5.1); Protein, Total 7.4 g/dL (6.4-8.2); Sodium Level 137 mEq/L (136-145); Troponin High Sensitivity 4.7 pg/mL (<58.9)
[2022-10-02 15:04] LABS: Bilirubin Direct < 0.1 mg/dL (0-0.2); Bilirubin Indirect, Calculated ND mg/dL (0.2-0.8)
[2022-10-02 15:18] LABS: Protime INR 1.03
--- NOTE | 2022-10-02 15:23 | ER ---
Nurse's Notes [facility] Name: Rena Reddy Age: 77 yrs Sex: Female : 1945 Arrival Date: 10/02/2022 Time: 13:27 Bed 15 Private MD: Diagnosis: Chest pain, unspecified;Essential (primary) hypertension;Abnormal levels of other serum enzymes-ELEVATED LIPASE Presentation: 10/02 13:40 Chief complaint: Substernal chest pressure that radiates to back and left arm that hb started this morning. Also reports nausea/SOB. Coronavirus screen: At this time, the client does not indicate any symptoms associated with coronavirus-19. Ebola Screen: No symptoms or risks identified at this time. Initial Sepsis Screen: Does the patient meet any 2 criteria? No. Patient's initial sepsis screen is negative. Does the patient have a suspected source of infection? No. Patient's initial sepsis screen is negative. Risk Assessment: Do you want to hurt yourself or someone else? Patient reports no desire to harm self or others. Onset of symptoms was October 02, 2022. 13:40 Method Of Arrival: Ambulatory hb 13:40 Acuity: JULES 3 hb Historical: - Allergies: 13:41 NKDA; hb - Home Meds: 13:41 amlodipine 5 mg tablet daily [Active]; clopidogrel 75 mg oral tablet daily [Active]; hb celecoxib 100 mg Oral capsule every 12 hours [Active]; Macrobid 100 mg Oral capsule 2 times per day [Active]; Protonix 40 mg Oral granules delayed release for susp packet daily [Active]; aspirin 81 mg oral tablet,chewable [Active]; Ferrous Sulfate Oral [Active]; lisinopril 20 mg Oral tablet daily [Active]; alfuzosin 10 mg oral Tablet, Extended Release 24 hr daily [Active]; metformin 500 mg Oral Tablet, Extended Release 24 hr 2 times per day [Active]; Lasix 20 mg Oral tablet daily [Active]; atorvastatin 40 mg oral tablet daily [Active]; clopidogrel 75 mg oral tablet daily [Active]; Azo Cranberry 250 mg oral tablet,chewable [Active]; Calcium + D [Active]; multivitamin oral tablet daily [Active]; - PMHx: 13:41 Diabetes - NIDDM; Hyperlipidemia; Hypertension; Kidney stones; Myocardial infarction; hb - PSHx: 13:41 Cholecystectomy; 3 heart stents; Thyroidectomy; watchman; hb - Immunization history:: Adult Immunizations up to date. - Social history:: Smoking status: Patient denies any tobacco usage or history of. - Family history:: not pertinent. Screenin:16 [facility] ED Fall Risk Assessment (Adult) History of falling in the last 3 months, ph including since admission No falls in past 3 months (0 pts) Confusion or Disorientation No (0 pts) Intoxicated or Sedated No (0 pts) Impaired Gait No (0 pts) Mobility Assist Device Used No (0 pt) Altered Elimination No (0 pt) Score/Fall Risk Level 0 - 2 = Low Risk Oriented to surroundings, Maintained a safe environment, Hourly rounding (assess needs \T\ fall precautionary measures) done. Abuse screen: Denies threats or abuse. Denies injuries from another. Nutritional screening: No deficits noted. Tuberculosis screening: No symptoms or risk factors identified. Assessment: 14:30 General: Appears in no apparent distress. uncomfortable, Behavior is calm, cooperative, ph appropriate for age. Pain: Complains of pain in mid-sternal area Pain radiates to back Pain began 4 hours ago. Neuro: Level of Consciousness is awake, alert, obeys commands, Oriented to person, place, time, situation. Cardiovascular: Reports chest pain, nausea, shortness of breath, Capillary refill < 3 seconds in bilateral fingers Patient's skin is warm and dry. Rhythm is regular Chest pain is located in substernal area radiates back. Respiratory: Airway is patent Respiratory effort is even, unlabored. GI: Reports nausea. Derm: Skin is pink, warm \T\ dry. Musculoskeletal: Circulation, motion, and sensation intact. Range of motion: intact in all extremities. 15:29 Reassessment: Patient appears in no apparent distress at this time. Patient and/or ph family updated on plan of care and expected duration. Pain level reassessed. Patient is alert, oriented x 3, equal unlabored respirations, skin warm/dry/pink. Vital Signs: 13:40 BP 147 / 67; Pulse 111; Resp 18; Temp 97.9; Pulse Ox 99% on R/A; Weight 62.14 kg; hb Height 5 ft. 2 in. ; Pain 7/10; 15:22 BP 112 / 57; Pulse 79; Resp 18; Pulse Ox 98% on R/A; ph 17:01 BP 133 / 62; Pulse 85; Resp 18; Pulse Ox 98% on R/A; ph 17:51 BP 131 / 60; Pulse 81; Resp 18; Temp 97.7; Pulse Ox 98% ; ph 13:40 Body Mass Index 25.06 (62.14 kg, 157.48 cm) hb 13:40 Pain Scale: Adult hb Vitals: 15:22 Cardiac Rhythm Assessment Sinus rhythm. ph ED Course: 13:28 Patient arrived in ED. mg5 13:33 Stefano Arnold MD is Attending Physician. abby 13:41 Triage completed. hb 13:46 Arm band placed on. hb 13:59 XRAY Chest (1 view) In Process Unspecified. EDMS 14:05 Zoraida Guerrero, RN is Primary Nurse. ph 14:20 Initial lab(s) drawn, by ca, sent to lab. Inserted saline lock: 22 gauge in left ph antecubital area, using aseptic technique. Blood collected. 15:16 CT Aorta for Dissection In Process Unspecified. EDMS 15:17 Patient has correct armband on for positive identification. Placed in gown. Bed in low ph position. Call light in reach. Side rails up X 1. Client placed on continuous cardiac and pulse oximetry monitoring. NIBP monitoring applied. Door closed. Noise minimized. 15:21 Pawan Diaz is Hospitalizing Provider. abby 17:01 IV discontinued, intact, bleeding controlled, No redness/swelling at site. Pressure ph dressing applied. Inserted saline lock: 22 gauge in left forearm, using aseptic technique. 17:02 Patient maintains SpO2 saturation greater than 95% on room air. ph 18:18 No provider procedures requiring assistance completed. Patient admitted, IV remains in ph place. Administered Medications: 10/01 14:40 Drug: Metoprolol PO 25 mg Route: PO; ph 10/02 18:15 Follow up: Response: No adverse reaction ph 14:30 Drug: NS 0.9% IV 1000 ml Route: IV; Rate: 125 ml/hr; Site: left antecubital; ph 18:17 Follow up: IV Status: Completed infusion ph 14:30 Drug: Ondansetron IVP 4 mg Route: IVP; Site: left antecubital; ph 18:16 Follow up: Response: No adverse reaction ph 14:30 Drug: Famotidine IVP 20 mg Route: IVP; Site: left antecubital; ph 18:16 Follow up: Response: No adverse reaction ph 14:32 Drug: morphine IVP or IV 2 mg Route: IVP; Infused Over: 4 mins; Site: left antecubital; ph 18:16 Follow up: Response: No adverse reaction ph 14:40 Drug: Aspirin PO Chewable Tablet 324 mg Route: PO; ph 18:17 Follow up: Response: No adverse reaction ph 16:23 Drug: morphine IVP or IV 2 mg Route: IVP; Infused Over: 2 mins; Site: left antecubital; ph 18:16 Follow up: Response: Adverse reaction, Physician notified ph 16:23 Drug: Magnesium Sulfate IVPB 2 grams Route: IVPB; Infused Over: 2 hrs; Site: left ph antecubital; 18:15 Follow up: Response: No adverse reaction; IV Status: Completed infusion ph 16:23 Drug: NS 0.9% IV 1000 ml Route: IV; Rate: 1 bolus; Site: left antecubital; ph 18:15 Follow up: Response: No adverse reaction; IV Status: Completed infusion; IV Intake: ph 1000ml 16:44 Not Given (Hemodynamic Parameters): Metoprolol IVP 5 mg IVP once; Hold for SBP <100 or ph HR <60. 17:48 Drug: Enoxaparin Sub-Q 1 mg/kg Route: Sub-Q; Site: right lower abdomen; ph 18:15 Follow up: Response: No adverse reaction ph 17:48 Drug: Atorvastatin PO 40 mg Route: PO; ph 18:15 Follow up: Response: No adverse reaction ph 17:48 Drug: Clopidogrel PO 150 mg Route: PO; ph 18:15 Follow up: Response: No adverse reaction ph 17:49 Drug: morphine IVP or IV 2 mg Route: IVP; Infused Over: 4 mins; Site: left forearm; ph 18:15 Follow up: Response: No adverse reaction; Pain is decreased ph Medication: 15:16 VIS not applicable for this client. ph Intake: 18:15 IV: 1000ml; Total: 1000ml. ph Outcome: 15:23 Decision to Hospitalize by Provider. abby 18:18 Admitted to Med/surg accompanied by tech, family with patient, via wheelchair, room ph 232, Report called to Krista 18:18 Condition: stable 18:18 Instructed on the need for admit. 18:18 Patient left the ED. ph Signatures: Dispatcher [employer] EDStefano De Leon MD MD cha Hall, Patricia RN RN Jesica Hernandez RN RN Aida Domingo mg5
--- NOTE | 2022-10-02 15:23 | EDPHYS ---
Physician Documentation [facility] Name: Rena Reddy Age: 77 yrs Sex: Female : 1945 Arrival Date: 10/02/2022 Time: 13:27 Bed 15 Private MD: ED Physician Stefano Arnold HPI: 10/02 14:32 This 77 yrs old Female presents to ER via Ambulatory with complaints of Chest abby Pain. 14:32 The patient or guardian reports chest pain that is located primarily in the substernal abby area, anterior aspect of right upper chest, anterior aspect of left upper chest, mid-sternal area, right breast and left breast. Onset: this morning. The pain radiates to back. Associated signs and symptoms: Pertinent positives: shortness of breath. The chest pain is described as aching. Modifying factors: The symptoms are alleviated by nothing. the symptoms are aggravated by nothing. Severity of pain: At its worst the pain was mild moderate in the emergency department the pain has improved mildly. The patient has experienced similar episodes in the past, several times. Historical: - Allergies: 13:41 NKDA; hb - Home Meds: 13:41 amlodipine 5 mg tablet daily [Active]; clopidogrel 75 mg oral tablet daily [Active]; hb celecoxib 100 mg Oral capsule every 12 hours [Active]; Macrobid 100 mg Oral capsule 2 times per day [Active]; Protonix 40 mg Oral granules delayed release for susp packet daily [Active]; aspirin 81 mg oral tablet,chewable [Active]; Ferrous Sulfate Oral [Active]; lisinopril 20 mg Oral tablet daily [Active]; alfuzosin 10 mg oral Tablet, Extended Release 24 hr daily [Active]; metformin 500 mg Oral Tablet, Extended Release 24 hr 2 times per day [Active]; Lasix 20 mg Oral tablet daily [Active]; atorvastatin 40 mg oral tablet daily [Active]; clopidogrel 75 mg oral tablet daily [Active]; Azo Cranberry 250 mg oral tablet,chewable [Active]; Calcium + D [Active]; multivitamin oral tablet daily [Active]; - PMHx: 13:41 Diabetes - NIDDM; Hyperlipidemia; Hypertension; Kidney stones; Myocardial infarction; hb - PSHx: 13:41 Cholecystectomy; 3 heart stents; Thyroidectomy; watchman; hb - Immunization history:: Adult Immunizations up to date. - Social history:: Smoking status: Patient denies any tobacco usage or history of. - Family history:: not pertinent. ROS: 14:32 Constitutional: Negative for fever, chills, and weight loss, Eyes: Negative for injury, abby pain, redness, and discharge, ENT: Negative for injury, pain, and discharge, Neck: Negative for injury, pain, and swelling, Abdomen/GI: Negative for abdominal pain, nausea, vomiting, diarrhea, and constipation, Back: Negative for injury and pain, : Negative for injury, bleeding, discharge, and swelling, MS/Extremity: Negative for injury and deformity, Skin: Negative for injury, rash, and discoloration, Neuro: Negative for headache, weakness, numbness, tingling, and seizure, Psych: Negative for depression, anxiety, suicide ideation, homicidal ideation, and hallucinations, Allergy/Immunology: Negative for hives, rash, and allergies, Endocrine: Negative for neck swelling, polydipsia, polyuria, polyphagia, and marked weight changes, Hematologic/Lymphatic: Negative for swollen nodes, abnormal bleeding, and unusual bruising. 14:32 Cardiovascular: Positive for chest pain. 14:32 Respiratory: Positive for shortness of breath, at rest. Exam: 14:32 Constitutional: This is a well developed, well nourished patient who is awake, alert, abby and in no acute distress. Head/Face: Normocephalic, atraumatic. Eyes: Pupils equal round and reactive to light, extra-ocular motions intact. Lids and lashes normal. Conjunctiva and sclera are non-icteric and not injected. Cornea within normal limits. Periorbital areas with no swelling, redness, or edema. ENT: Nares patent. No nasal discharge, no septal abnormalities noted. Tympanic membranes are normal and external auditory canals are clear. Oropharynx with no redness, swelling, or masses, exudates, or evidence of obstruction, uvula midline. Mucous membranes moist. Neck: Trachea midline, no thyromegaly or masses palpated, and no cervical lymphadenopathy. Supple, full range of motion without nuchal rigidity, or vertebral point tenderness. No Meningismus. Chest/axilla: Normal chest wall appearance and motion. Nontender with no deformity. No lesions are appreciated. Cardiovascular: Regular rate and rhythm with a normal S1 and S2. No gallops, murmurs, or rubs. Normal PMI, no JVD. No pulse deficits. Abdomen/GI: Soft, non-tender, with normal bowel sounds. No distension or tympany. No guarding or rebound. No evidence of tenderness throughout. Back: No spinal tenderness. No costovertebral tenderness. Full range of motion. Female : Normal external genitalia. Skin: Warm, dry with normal turgor. Normal color with no rashes, no lesions, and no evidence of cellulitis. 14:32 ECG was reviewed by the Attending Physician. 14:32 Respiratory: the patient does not display signs of respiratory distress, Respirations: normal, Breath sounds: are clear throughout, no bronchial sounds, no decreased breath sounds, no rales, rhonchi, no stridor, no wheezing, Respiratory rate: 18 Vital Signs: 13:40 BP 147 / 67; Pulse 111; Resp 18; Temp 97.9; Pulse Ox 99% on R/A; Weight 62.14 kg; hb Height 5 ft. 2 in. ; Pain 7/10; 15:22 BP 112 / 57; Pulse 79; Resp 18; Pulse Ox 98% on R/A; ph 17:01 BP 133 / 62; Pulse 85; Resp 18; Pulse Ox 98% on R/A; ph 17:51 BP 131 / 60; Pulse 81; Resp 18; Temp 97.7; Pulse Ox 98% ; ph 13:40 Body Mass Index 25.06 (62.14 kg, 157.48 cm) hb 13:40 Pain Scale: Adult hb MDM: 13:33 Patient medically screened. abby 14:48 Differential diagnosis: abnormal EKG, acute myocardial infarction, acute pericarditis, abby anxiety, coronary artery disease chest wall pain, congestive heart failure Cholelithiasis esophagitis, hiatal hernia, mitral valve prolapse, pancreatitis, pneumonia, pulmonary embolus, stable angina, unstable angina. HEART Score: ECG: Non specific repolarization disturbance / LBTB / PM (1), Age: > or = 65 years (2), Risk Factors: > or = 3 Risk factors for atherosclerotic disease (2), [Hypercholesterolemia] [Hypertension] [+ Family HX] [Obesity] Troponin: < or = 1 x Normal Limit (0). The patient was given aspirin in the Emergency Department. KERLINE Risk Score: 1 - patient's age is greater or equal to 65 years, 1 - Three or more CAD risk factors, 1- Known CAD, 1 - ASA use in past 7 days, 1 - Recent [<24hrs] Severe Angina, TOTAL SCORE = 5. Data reviewed: vital signs, nurses notes, EMS record, lab test result(s), EKG, radiologic studies, CT scan, plain films. Management of patient was discussed with the following: Hospitalist: DR VALLEJO. Independent interpretation of the following test(s) in the Emergency Department EKG: See my EKG interpretation above. Test considered but Not performed: Ultrasound NO ECHO 2D. Care significantly affected by the following chronic conditions: Diabetes, Hypertension, Liver Disease. 10/02 13:34 Order name: Basic Metabolic Panel; Complete Time: 15:18 [facility] 10/02 13:34 Order name: CBC with Diff; Complete Time: 14:57 [facility] 10/02 13:34 Order name: LFT's; Complete Time: 15:18 [facility] 10/02 13:34 Order name: Magnesium; Complete Time: 15:18 [facility] 10/02 13:34 Order name: NT PRO-BNP; Complete Time: 15:18 [facility] 10/02 13:34 Order name: PT-INR; Complete Time: 15:19 [facility] 10/02 13:34 Order name: Troponin HS; Complete Time: 15:18 [facility] 10/02 13:34 Order name: Lipase; Complete Time: 15:18 [facility] 10/02 13:34 Order name: Urinalysis w/ reflexes; Complete Time: 17:13 [facility] 10/02 15:20 Order name: Lipid Profile; Complete Time: 17:13 [facility] 10/02 15:51 Order name: LDL, Direct; Complete Time: 17:13 [facility] 10/02 13:34 Order name: XRAY Chest (1 view); Complete Time: 14:57 [facility] 10/02 13:44 Order name: CT Aorta for Dissection; Complete Time: 17:13 [facility] 10/02 13:34 Order name: EKG; Complete Time: 13:36 [facility] 10/02 13:34 Order name: Cardiac monitoring; Complete Time: 15:13 [facility] 10/02 13:34 Order name: EKG - Nurse/Tech; Complete Time: 15:13 [facility] 10/02 13:34 Order name: IV Saline Lock; Complete Time: 15:20 [facility] 10/02 13:34 Order name: Labs collected and sent; Complete Time: 15:12 [facility] 10/02 13:34 Order name: O2 Per Protocol; Complete Time: 15:12 [facility] 10/02 13:34 Order name: O2 Sat Monitoring; Complete Time: 15:12 [facility] EC:32 Rate is 105 beats/min. Rhythm is regular. QRS [place] is Normal. [place] interval is normal. [facility] QRS interval is normal. QT interval is normal. No Q waves. T waves are Normal. No ST changes noted. Clinical impression: Sinus tachycardia and No evidence of ischemia. Interpreted by me. Reviewed by me. Administered Medications: 10/01 14:40 Drug: Metoprolol PO 25 mg Route: PO; ph 10/02 18:15 Follow up: Response: No adverse reaction ph 14:30 Drug: NS 0.9% IV 1000 ml Route: IV; Rate: 125 ml/hr; Site: left antecubital; ph 18:17 Follow up: IV Status: Completed infusion ph 14:30 Drug: Ondansetron IVP 4 mg Route: IVP; Site: left antecubital; ph 18:16 Follow up: Response: No adverse reaction ph 14:30 Drug: Famotidine IVP 20 mg Route: IVP; Site: left antecubital; ph 18:16 Follow up: Response: No adverse reaction ph 14:32 Drug: morphine IVP or IV 2 mg Route: IVP; Infused Over: 4 mins; Site: left antecubital; ph 18:16 Follow up: Response: No adverse reaction ph 14:40 Drug: Aspirin PO Chewable Tablet 324 mg Route: PO; ph 18:17 Follow up: Response: No adverse reaction ph 16:23 Drug: morphine IVP or IV 2 mg Route: IVP; Infused Over: 2 mins; Site: left antecubital; ph 18:16 Follow up: Response: Adverse reaction, Physician notified ph 16:23 Drug: Magnesium Sulfate IVPB 2 grams Route: IVPB; Infused Over: 2 hrs; Site: left ph antecubital; 18:15 Follow up: Response: No adverse reaction; IV Status: Completed infusion ph 16:23 Drug: NS 0.9% IV 1000 ml Route: IV; Rate: 1 bolus; Site: left antecubital; ph 18:15 Follow up: Response: No adverse reaction; IV Status: Completed infusion; IV Intake: ph 1000ml 16:44 Not Given (Hemodynamic Parameters): Metoprolol IVP 5 mg IVP once; Hold for SBP <100 or ph HR <60. 17:48 Drug: Enoxaparin Sub-Q 1 mg/kg Route: Sub-Q; Site: right lower abdomen; ph 18:15 Follow up: Response: No adverse reaction ph 17:48 Drug: Atorvastatin PO 40 mg Route: PO; ph 18:15 Follow up: Response: No adverse reaction ph 17:48 Drug: Clopidogrel PO 150 mg Route: PO; ph 18:15 Follow up: Response: No adverse reaction ph 17:49 Drug: morphine IVP or IV 2 mg Route: IVP; Infused Over: 4 mins; Site: left forearm; ph 18:15 Follow up: Response: No adverse reaction; Pain is decreased ph Disposition Summary: 10/02/22 15:23 Hospitalization Ordered Hospitalization Status: Observation abby Provider: Pawan Vallejo cha Location: Telemetry/MedSurg (observation) abby Condition: Fair abby Problem: new abby Symptoms: have improved abby Bed/Room Type: Standard [facility] Room Assignment: [facility](10/02/22 17:05) eb Diagnosis - Chest pain, unspecified abby - Essential (primary) hypertension abby - Abnormal levels of other serum enzymes - ELEVATED LIPASE abby Forms: - Medication Reconciliation Form abby - SBAR form abby Signatures: Dispatcher [employer] EDStefano De Leon MD MD cha Hall, Patricia, RN RN Jesica Hernandez RN RN Tamra Fregoso Corrections: (The following items were deleted from the chart) 17:05 15:23 abby eb
--- NOTE | 2022-10-02 15:36 | RAD REPORT ---
EXAM DESCRIPTION: CT - Angio Aorta For Dissection - 10/02/2022 3:14 pm CLINICAL HISTORY: . Chest and abd pain COMPARISON: 2014 TECHNIQUE: Computed tomography angiography of the chest, abdomen pelvis were obtained. 100 cc Isovue 370 was administered intravenously. Coronal and sagittal reconstruction were performed. MIP 3D reconstruction was performed All CT scans are performed using dose optimization technique as appropriate and may include automated exposure control or mA/KV adjustment according to patient size. FINDINGS: An aortic dissection is not seen. An aortic aneurysm is not displayed. Mild to moderate atherosclerosis. 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 SMA and SYMONE patent Small bilateral ground-glass nodules unchanged likely benign. A pericardial effusion is not seen. A p leural effusion is not noted. Watchmman has been placed into the heart The liver,spleen, pancreas, and adrenals are unremarkable. Right renal cortical thinning. Calcification lower pole right kidney unchanged. It may lie within ranjan yceal diverticulum There no evidence diverticulitis. Normal appendix. Cholecystectomy. Spondylosis lumbar spine resulti ng in spinal stenosis IMPRESSION: Negative for an aortic dissection.
[2022-10-02 15:48] LABS: HDL Cholesterol 40 mg/dL (40-60)
[2022-10-02 15:50] LABS: Urine Bacteria <20 /HPF (<20); Urine Bilirubin NEGATIVE (Negative); Urine Blood Negative (Negative); Urine Clarity Clear (Clear); Urine Color Light-Yellow (Yellow); Urine Glucose NEGATIVE (Negative); Urine Mucus Slight /HPF (None Seen); Urine Protein NEGATIVE (Negative); Urine RBC None Seen /HPF (None Seen); Urine Urobilinogen Normal (Normal)
[2022-10-02 15:59] LABS: LDL, Direct 135 mg/dL (100-129)
[2022-10-02] MEDS ORDERED: Magnesium Sulfate 2gm IVPB 2 G/50 ML BAG IV ONE (16:14)
--- NOTE | 2022-10-02 16:23 | P.HP ---
Certification for Inpatient Patient admitted to: Observation With expected LOS: <2 Midnights Practitioner: I am a practitioner with admitting privileges, knowledge of patient current condition, hospital course, and medical plan of care. Services: Services provided to patient in accordance with Admission requirements found in Title 42 Section 412.3 of the Code of Federal Regulations Patient History Date of Service: 10/02/22 Reason for admission: Chest pain History of Present Illness: 77-year-old male with a history of coronary artery disease status post stent, diabetes, chronic atrial fibrillation status post watchman's procedure, hyperlipidemia presented to the emergency department with a complaint of chest pain of sudden onset, which occurred at rest, located in the midsternal area and radiating to the right arm, maximum intensity 8/10, no known relieving or aggravating factors, associated with nausea, no associated shortness of breath or palpitation. Lab work in the ED has been unremarkable except mildly elevated lipase, negative troponin, EKG demonstrated sinus tachycardia, no ischemic changes, chest x-ray shows no acute disease. Patient is hospitalized for ACS rule out. Allergies No Known Drug Allergies Allergy (Verified 06/02/22 10:59) Unknown Home Medications: Metformin ER [Glucophage ER*] 1,000 mg PO BID 03/30/14 Amlodipine [Norvasc*] 5 mg PO DAILY 11/30/16 Ferrous Sulfate 1 tab PO DAILY 03/30/21 Lisinopril [Zestril] 20 mg PO DAILY 03/30/21 Pantoprazole [Protonix Tab*] 40 mg PO DAILY 03/30/21 Aspirin [Aspirin EC 81 MG] 81 mg PO DAILY #30 tab 04/16/22 Alfuzosin HCl 1 tab PO BEDTIME 05/14/22 Atorvastatin Calcium [Lipitor*] 1 tab PO BEDTIME 05/14/22 Docusate [Colace Cap*] 1 tab PO DAILY 05/14/22 Insulin Glargine,Hum.rec.anlog [Mervataglhola [place] U-100] 35 units SQ BEDTIME 05/14/22 Nitroglycerin [Nitrostat*] 1 tab SL PRN PRN 05/14/22 Ondansetron [Zofran (Odt)*] 1 tab PO Q6HP PRN 05/14/22 estradioL [Estradiol] 1 dose VAG DAILY 05/14/22 Magnesium Oxide [Magnesium] 250 mg PO DAILY 05/18/22 Ertapenem Sodium [Ertapenem] 1 gm IV DAILY 10 Days #10 ml 05/20/22 Sotalol HCl [Betapace*] 80 mg PO BID 6AM 6PM #60 tab 05/20/22 Celecoxib 200 mg PO BID 05/27/22 Cholecalciferol (Vitamin D3) [Vitamin D3] 1,000 unit PO DAILY 05/27/22 Furosemide [Lasix*] 20 mg PO DAILY 05/27/22 Codeine/APAP [Tylenol W/Codeine #3 tab] 1 tab PO Q6HP PRN #9 tab 06/02/22 Smz./Tmp. [Bactrim Ds 800 MG/160 MG] 1 tab PO BID #10 tab 06/02/22 - Past Medical/Surgical History Diabetic: Yes -: HTN -: IDDM -: [place] -: CAD -: GERD -: Hyperlipidemia -: Kidney stone -: thyroidectomy -: Stent in LAD (03/2014) -: Cholecystectomy -: kidney stones removed Psychosocial/ Personal History: Patient lives at home with her daughter. - Family History Father -: Heart disease, Hypertension, Diabetes, Stroke Mother -: Heart disease, Diabetes Sister -: Hypertension, Diabetes, Cancer Notes: breast cancer Brother -: Heart disease, Stroke - Social History Alcohol use: No CD- Drugs: No Caffeine use: Yes Review of Systems Other: Except as documented, all other systems reviewed and negative. Physical Examination - Physical Exam General: Alert, In no apparent distress, Oriented x3 HEENT: Mucous membr. moist/pink, EOMI, Sclerae nonicteric Neck: Supple, JVD not distended Respiratory: Clear to auscultation bilaterally, Normal air movement Cardiovascular: No edema, Regular rate/rhythm, Normal S1 S2 Gastrointestinal: Normal bowel sounds, Soft and benign, Non-distended, No tenderness Musculoskeletal: No swelling, No tenderness Integumentary: No rashes, No erythema, No cyanosis Neurological: Normal speech, Normal strength at 5/5 x4 extr, Cranial nerves 3-12 intact Lymphatics: No axilla or inguinal lymphadenopathy - Studies Laboratory Data (last 24 hrs) WBC 5.40 thou/uL (4.3-10.9) 10/02/22 14:30 Hgb 10.6 g/dL (12.0-15.0) L 10/02/22 14:30 Hct 32.7 % (36.0-45.0) L 10/02/22 14:30 Plt Count 277 thou/uL (152-406) 10/02/22 14:30 PT 11.3 SECONDS (9.5-12.5) 10/02/22 14:30 INR 1.03 10/02/22 14:30 Sodium 137 mEq/L (136-145) 10/02/22 14:30 Potassium 4.2 mEq/L (3.5-5.1) 10/02/22 14:30 BUN 25 mg/dL (7-18) H 10/02/22 14:30 Creatinine 0.98 mg/dL (0.55-1.02) 10/02/22 14:30 Glucose 133 mg/dL (74-106) H 10/02/22 14:30 Magnesium 1.2 mg/dL (1.6-2.4) L 10/02/22 14:30 Total Bilirubin 0.2 mg/dL (0.2-1.0) 10/02/22 14:30 AST 16 U/L (15-37) 10/02/22 14:30 ALT 24 U/L (13-56) 10/02/22 14:30 Alkaline Phosphatase 66 U/L (45-117) 10/02/22 14:30 Triglycerides 460 mg/dL (<150) H 10/02/22 14:30 Cholesterol 251 mg/dL (<200) H 10/02/22 14:30 LDL Cholesterol Direct 135 mg/dL (100-129) H 10/02/22 14:30 HDL Cholesterol 40 mg/dL (40-60) 10/02/22 14:30 Cholesterol/HDL Ratio 6.28 10/02/22 14:30 Lipase 140 U/L (13-75) H 10/02/22 14:30 Assessment and Plan - Problems (Diagnosis) (1) Chest pain Onset Date: 05/07/15 Current Visit: No Status: Acute Qualifiers: Chest pain type: unspecified Qualified Code(s): R07.9 - Chest pain, unspecified (2) Coronary artery disease Current Visit: No Status: Chronic Qualifiers: Coronary Disease-Associated Artery/Lesion type: [place] artery [place] vs. transplanted heart: [place] heart Associated angina: without angina Qualified Code(s): I25.10 - Atherosclerotic heart disease of [place] coronary artery without angina pectoris (3) Hyperlipidemia Current Visit: No Status: Chronic Qualifiers: Hyperlipidemia type: unspecified Qualified Code(s): E78.5 - Hyperlipidemia, unspecified (4) Hypertension Current Visit: No Status: Chronic Qualifiers: Hypertension type: primary hypertension Qualified Code(s): I10 - Essential (primary) hypertension (5) Type 2 diabetes mellitus Current Visit: No Status: Chronic Qualifiers: Diabetes mellitus mcc insulin use: without mcc use Diabetes mellitus complication status: with hyperglycemia Qualified Code(s): E11.65 - Type 2 diabetes mellitus with hyperglycemia - Plan Place patient under observation. Trend troponin Continue home dose aspirin and Plavix Continue Lipitor for hyperlipidemia Obtain echocardiogram Cardiology consult No radiographic evidence of acute pancreatitis. Mild lipase elevation is nonspecific. Recheck lipase level in a.m. Insulin sliding scale for glucose management Resume home dose Lantus insulin. - Advance Directives Does patient have a Living Will: No Does patient have a Durable POA for Healthcare: No
[2022-10-02] MEDS ORDERED: CLOPIDOGREL 75 MG TABLET ONE (17:38)
[2022-10-02] MEDS ORDERED: ATORVASTATIN 40 MG TAB ONE (17:39)
[2022-10-02] MEDS ORDERED: ENOXAPARIN 60 MG/0.6 ML SQ ONE (17:39)
[2022-10-02] MEDS ORDERED: ACETAMINOPHEN 500 MG TAB PO PRN (18:01)
[2022-10-02] MEDS: INSULIN -REGULAR HUMAN 50 UNIT/0.5 ML ML SQ SCH ×2 (18:01→20:17)
[2022-10-02] MEDS ORDERED: MORPHINE 2 MG/ML SYR IV PRN (18:01)
[2022-10-02] MEDS ORDERED: NITROGLYCERIN 0.4 MG/TAB SL PRN (18:01)
[2022-10-02 18:33] VITALS: BMI 26.6
[2022-10-02 18:48] LABS: Troponin High Sensitivity 6.2 pg/mL (<58.9)
[2022-10-03 06:06] LABS: Absolute Lymphocytes (CBC) 1.4 K/uL (0.7-4.9); Hematocrit 29.7 % (36.0-45.0); Lymphocytes % 33.3 % (15.3-44.8); MCV 87.3 fL (80-100)
[2022-10-03 06:21] LABS: Potassium 4.2 mEq/L (3.5-5.1)
[2022-10-03] MEDS: INSULIN -REGULAR HUMAN 50 UNIT/0.5 ML ML SQ SCH ×3 (07:30→16:40)
[2022-10-03] MEDS ORDERED: ASPIRIN EC 81 MG TAB PO SCH (09:00)
[2022-10-03] MEDS ORDERED: ENOXAPARIN 40 MG/0.4 ML SQ SCH (09:00)
[2022-10-03] MEDS ORDERED: PANTOPRAZOLE 40MG TABLET PO SCH (13:15)
[2022-10-03] MEDS ORDERED: CLOPIDOGREL 75 MG TABLET PO SCH (13:15)
[2022-10-03] MEDS ORDERED: AMLODIPINE 5 MG TAB PO SCH (14:00)
[2022-10-03 14:01] VITALS: O2SAT 97
[2022-10-03 16:30] VITALS: BP 134/62; TEMP 98
--- NOTE | 2022-10-03 17:55 | P.DS ---
Admission Date: 10/02/22 Discharge Date: 10/03/22 Disposition: ROUTINE DISCHARGE Discharge Condition: FAIR Reason for Admission: Chest pain - Problems (1) Chest pain Onset Date: 05/07/15 Current Visit: No Status: Acute Qualifiers: Chest pain type: unspecified Qualified Code(s): R07.9 - Chest pain, unspecified (2) Coronary artery disease Current Visit: No Status: Chronic Qualifiers: Coronary Disease-Associated Artery/Lesion type: [place] artery [place] vs. transplanted heart: [place] heart Associated angina: without angina Qualified Code(s): I25.10 - Atherosclerotic heart disease of [place] coronary artery without angina pectoris (3) Hyperlipidemia Current Visit: No Status: Chronic Qualifiers: Hyperlipidemia type: unspecified Qualified Code(s): E78.5 - Hyperlipidemia, unspecified (4) Hypertension Current Visit: No Status: Chronic Qualifiers: Hypertension type: primary hypertension Qualified Code(s): I10 - Essential (primary) hypertension (5) Type 2 diabetes mellitus Current Visit: No Status: Chronic Qualifiers: Diabetes mellitus usp insulin use: without keno terminal operator use Diabetes mellitus complication status: with hyperglycemia Qualified Code(s): E11.65 - Type 2 diabetes mellitus with hyperglycemia Brief History of Present Illness: 77-year-old male with a history of coronary artery disease status post stent, diabetes, chronic atrial fibrillation status post watchman's procedure, hyperlipidemia presented to the emergency department with a complaint of chest pain of sudden onset, which occurred at rest, located in the midsternal area and radiating to the right arm, maximum intensity 8/10, no known relieving or aggravating factors, associated with nausea, no associated shortness of breath or palpitation. Lab work in the ED has been unremarkable except mildly elevated lipase, negative troponin, EKG demonstrated sinus tachycardia, no ischemic changes, chest x-ray shows no acute disease. Patient hospitalized for ACS rule out. Hospital Course: Patient was placed on observation on the medical. Troponin trended negative. She was asymptomatic during the hospital stay. Patient is on aspirin and Plavix which were continued during the hospital stay. Her LDL level is 138 which is above target. Patient reported noncompliance with statins. Her home dose statins resumed. Patient is currently asymptomatic, ACS ruled out. Dr. Palmer has been informed who plans to follow-up with patient in the office for further work-up as needed. Vital Signs/Physical Exam: Temp Pulse Resp BP Pulse Ox 98.0 F 74 16 134/62 98 10/03/22 16:00 10/03/22 16:00 10/03/22 16:00 10/03/22 16:00 10/03/22 16:00 General: Alert, In no apparent distress, Oriented x3 HEENT: Mucous membr. moist/pink Respiratory: Clear to auscultation bilaterally, Normal air movement Cardiovascular: Regular rate/rhythm, Normal S1 S2 Gastrointestinal: Soft and benign, Non-distended Musculoskeletal: No swelling Integumentary: No rashes, No cyanosis Neurological: Normal strength at 5/5 x4 extr Laboratory Data at Discharge: WBC 4.20 thou/uL (4.3-10.9) L 10/03/22 05:48 Hgb 9.7 g/dL (12.0-15.0) L D 10/03/22 05:48 Hct 29.7 % (36.0-45.0) L 10/03/22 05:48 Plt Count 267 thou/uL (152-406) 10/03/22 05:48 PT 11.3 SECONDS (9.5-12.5) 10/02/22 14:30 INR 1.03 10/02/22 14:30 Sodium 138 mEq/L (136-145) 10/03/22 05:48 Potassium 4.2 mEq/L (3.5-5.1) 10/03/22 05:48 BUN 20 mg/dL (7-18) H 10/03/22 05:48 Creatinine 0.82 mg/dL (0.55-1.02) 10/03/22 05:48 Glucose 109 mg/dL (74-106) H 10/03/22 05:48 Magnesium 1.2 mg/dL (1.6-2.4) L 10/02/22 14:30 Total Bilirubin 0.2 mg/dL (0.2-1.0) 10/02/22 14:30 AST 16 U/L (15-37) 10/02/22 14:30 ALT 24 U/L (13-56) 10/02/22 14:30 Alkaline Phosphatase 66 U/L (45-117) 10/02/22 14:30 Triglycerides 343 mg/dL (<150) H 10/02/22 18:24 Cholesterol 244 mg/dL (<200) H 10/02/22 18:24 LDL Cholesterol Direct 135 mg/dL (100-129) H 10/02/22 14:30 HDL Cholesterol 37 mg/dL (40-60) L 10/02/22 18:24 Cholesterol/HDL Ratio 6.59 10/02/22 18:24 Lipase 140 U/L (13-75) H 10/02/22 14:30 Home Medications: Metformin ER [Glucophage ER*] 1,000 mg PO BID 03/30/14 Amlodipine [Norvasc*] 5 mg PO DAILY 11/30/16 Ferrous Sulfate 1 tab PO DAILY 03/30/21 Lisinopril [Zestril] 20 mg PO DAILY 03/30/21 Pantoprazole [Protonix Tab*] 40 mg PO DAILY 03/30/21 Aspirin [Aspirin EC 81 MG] 81 mg PO DAILY #30 tab 04/16/22 Alfuzosin HCl 1 tab PO BEDTIME 05/14/22 Atorvastatin Calcium [Lipitor*] 2 tab PO BEDTIME 05/14/22 Celecoxib 200 mg PO BID 05/27/22 Furosemide [Lasix*] 20 mg PO DAILY 05/27/22 Smz./Tmp. [Bactrim Ds 800 MG/160 MG*] 1 tab PO BID #10 tab 06/02/22 Calcium Carbonate [Calcium] 1 tab PO DAILY 10/02/22 Clopidogrel Bisulfate [Plavix*] 75 mg PO DAILY 10/02/22 Cranberry Fruit Concentrate [Azo Cranberry] 1 cap PO DAILY 10/02/22 Physician Discharge Instructions: Please do not take your metformin until tomorrow because you did a CT scan with an IV contrast. Diet: ADA Activity: Ad heather Followup: RENZO MULLER [Primary Care Provider] - Delmer Palmer MD [ACTIVE - CAN ADMIT] - (Next week Wednesday10/05/2022.) Time spent managing pt's care (in minutes): 27
[2022-10-03] MEDS ORDERED: SMZ./TMP. 800/160 MG TABLET PO SCH (21:00)
[2022-10-03] MEDS ORDERED: ATORVASTATIN 40 MG TAB PO SCH (21:00)
[2022-10-03] MEDS ORDERED: HOME MED 1 EA UNK (Alfuzosin Hcl [Alfuzosin Hcl] 10 MG Tab.Er.24h) PO SCH (21:00)
[2022-10-04] MEDS ORDERED: ASPIRIN EC 81 MG TAB PO SCH (09:00)
[2022-10-04] MEDS ORDERED: FERROUS SULFATE 325 MG TAB PO SCH (09:00)
[2022-10-04] MEDS ORDERED: FUROSEMIDE 20 MG TABLET PO SCH (09:00)
[2022-10-04] MEDS ORDERED: CALCIUM CARBONATE 500 MG TAB PO SCH (09:00)
[2022-10-04] MEDS ORDERED: lisinopriL 20 MG TAB PO SCH (09:00)
[2022-10-04] MEDS ORDERED: CRANBERRY FRUIT EXTRACT 200 MG CAP PO SCH (09:00)
--- NOTE | 2022-10-04 13:16 | EKG ---
Test Date: 2022-10-02 Test Time: 13:39:20 Rn Child: ADONAY MEASUREMENT RESULTS: Intervals: Rate: 105 CO: 154 QRSD: 70 QT: 352 QTc: 465 [place]: P: 35 CO: 154 QRS: 61 T: 77 INTERPRETIVE STATEMENTS: Sinus tachycardia Otherwise normal ECG Compared to ECG 06/29/2022 19:25:14 Sinus rhythm no longer present Atrial premature complex(es) no longer present ST (T wave) deviation no longer present Electronically Signed On 10-04-22 13:12:37 CDT by Delmer Palmer
== END 2022-10-03 18:48 | disposition home or self-care (01) ==
LOC: ER 13:27 → ERHOLD 16:16 → 2ND 18:00
PROVIDERS: ADMIT Internal Medicine; ATTEND Internal Medicine
DX: R07.9 Chest pain, unspecified (principal); I25.10 Atherosclerotic heart disease of native coronary artery without angina pectoris; I48.11 Longstanding persistent atrial fibrillation; E11.65 Type 2 diabetes mellitus with hyperglycemia; E78.5 Hyperlipidemia, unspecified; Z95.5 Presence of coronary angioplasty implant and graft; Z79.82 Long term (current) use of aspirin; Z79.02 Long term (current) use of antithrombotics/antiplatelets; Z79.85 Long-term (current) use of injectable non-insulin antidiabetic drugs
CPT/HCPCS: 93005; 85025 ×2; 81001; 80048 ×2; 36415; 83721; 83735; 85610; 80061 ×2; 82947 ×4; 80076; 84484 ×3; 83690; 83880; 71275; 74175; 71045; 96372; 99285; Q9967; J1815 ×2; J1650 ×2; J3475; J2270 ×3; J2405; J7030

== ENCOUNTER → 2023-05-18 | Emergency (ER) | payer OTHER ==
[~2023-05-18] MED LIST changes: -ATROPINE SULF 1 MG/10 ML SYR IV ONE; -FENTANYL CITR 100 MCG/2 ML ONE; -FLUMAZENIL 0.1 MG/ML (5 mL VIAL) IV ONE; -HYDRALAZINE HCL 20 MG/ML VIAL ONE; -LIDOCAINE VISCOUS 2% SOLN 15 ML UDC ONE; -METOPROLOL TARTRATE 5 MG/5 ML INJ IV ONE; -MIDAZOLAM HCL 0 ML ONE; -MIDAZOLAM HCL 5 ML ONE; +NA CHLORIDE 0.9% 1,000 ML ONE; -NA CHLORIDE 0.9% 500 ML ONE; -NALOXONE 0.4 MG/ML VIAL ONE; -PHENOL 1.4% ORAL SPRAY 180ML ONE
[2023-05-18 10:15] LABS: Urine Bacteria <20 /HPF (<20); Urine Bilirubin NEGATIVE (Negative); Urine Blood Negative (Negative); Urine Clarity Turbid (Clear); Urine Color Light-Yellow (Yellow); Urine Glucose NEGATIVE (Negative); Urine Protein NEGATIVE (Negative); Urine RBC <5 /HPF (None Seen); Urine Urobilinogen Normal (Normal); Urine pH 6.5 (5.0-7.0)
[2023-05-18 10:20] LABS: Albumin 4.1 g/dL (3.4-5.0); Anion Gap 8.6 mEq/L (5.0-15.0); Bilirubin Total 0.5 mg/dL (0.2-1.0); Globulin 4.2 g/dL (2.3-3.5); Magnesium 1.8 mg/dL (1.6-2.4); Phosphorus 2.8 mg/dL (2.5-4.9); Potassium 4.6 mEq/L (3.5-5.1); Protein, Total 8.3 g/dL (6.4-8.2)
[2023-05-18 10:50] LABS: Absolute Eosinophils 0.2 K/uL (0-0.5); Absolute Lymphocytes (CBC) 1.1 K/uL (0.7-4.9); Basophils % 1.1 % (0-1.3); Eosinophils % 3.8 % (0-4.4); Hematocrit 34.7 % (36.0-45.0); Hemoglobin 11.4 g/dL (12.0-15.0); Lymphocytes % 28.3 % (15.3-44.8); Platelets 303 thou/uL (152-406); RBC Red Blood Cell Count 4.03 M/uL (3.86-4.86)
--- NOTE | 2023-05-18 11:46 | ER ---
Nurse's Notes [facility] Name: Rena Reddy Age: 77 yrs Sex: Female : 1945 Arrival Date: 05/18/2023 Time: 08:58 Bed Treatment Private MD: Kenan Velazquez Diagnosis: Dehydration Presentation: 05/17 09:16 Chief complaint: Patient states: wasn't feeling good yesterday , my body was trembling, iw nausea, diarrhea, denies abd pain, no vomiting , had blood work with Dr. Velazquez and they said her potassium was high and her kidney function was abnormal. Coronavirus screen: At this time, the client does not indicate any symptoms associated with coronavirus-19. Ebola Screen: Patient negative for fever greater than or equal to 101.5 degrees Fahrenheit, and additional compatible Ebola Virus Disease symptoms Patient denies exposure to infectious person. Patient denies travel to an Ebola-affected area in the 21 days before illness onset. No symptoms or risks identified at this time. Initial Sepsis Screen: Does the patient meet any 2 criteria? No. Patient's initial sepsis screen is negative. Does the patient have a suspected source of infection? No. Patient's initial sepsis screen is negative. Risk Assessment: Do you want to hurt yourself or someone else? Patient reports no desire to harm self or others. 09:16 Method Of Arrival: Ambulatory iw 09:16 Acuity: JULES 3 iw 09:16 Onset of symptoms was May 18, 2023. iw Historical: - Allergies: 09:18 NKDA; iw - PMHx: 09:18 Diabetes - NIDDM; Hyperlipidemia; Myocardial infarction; Hypertension; Kidney stones; iw - PSHx: 09:18 3 heart stents; Cholecystectomy; Thyroidectomy; watchman; iw - Immunization history:: Adult Immunizations unknown. - Social history:: Smoking status: unknown. Screenin:45 [facility] ED Fall Risk Assessment (Adult) Score/Fall Risk Level 0 - 2 = Low Risk nj1 Oriented to surroundings, Maintained a safe environment, Hourly rounding (assess needs \T\ fall precautionary measures) done. 09:45 Abuse screen: Denies threats or abuse. Denies injuries from another. Nutritional nj1 screening: No deficits noted. Tuberculosis screening: No symptoms or risk factors identified. Assessment: 09:45 General: Appears in no apparent distress. comfortable, Behavior is calm, cooperative, nj1 appropriate for age. 09:45 Pain: Denies pain. Neuro: Level of Consciousness is awake, alert, obeys commands, nj1 Oriented to person, place, time, situation. Cardiovascular: Patient's skin is warm and dry. Respiratory: Airway is patent Respiratory effort is even, unlabored. GI: GI: Patient currently denies diarrhea, nausea, vomiting. 10:43 Reassessment: Patient appears in no apparent distress at this time. Patient and/or nj1 family updated on plan of care and expected duration. Pain level reassessed. Patient is alert, oriented x 3, equal unlabored respirations, skin warm/dry/pink. 12:00 Reassessment: Patient appears in no apparent distress at this time. Patient and/or nj1 family updated on plan of care and expected duration. Pain level reassessed. Patient is alert, oriented x 3, equal unlabored respirations, skin warm/dry/pink. 12:22 Reassessment: IVF infusing. DC on hold. nj1 12:26 Reassessment: Patient appears in no apparent distress at this time. Patient and/or iw family updated on plan of care and expected duration. Pain level reassessed. moved to treatment room. Vital Signs: 09:16 BP 146 / 60; Pulse 71; Resp 16; Temp 97.4; Pulse Ox 100% on R/A; Weight 63.5 kg; Height iw 5 ft. 2 in. ; 10:43 BP 139 / 65; Pulse 68; Resp 16; Pulse Ox 100% ; nj1 11:30 BP 134 / 64; Pulse 67; Resp 18; Pulse Ox 99% on R/A; db 09:16 Body Mass Index 25.61 (63.50 kg, 157.48 cm) iw ED Course: 09:01 Patient arrived in ED. mr 09:02 Kenan Velazquez DO is Private Physician. mr 09:02 Rod Garcia MD is Attending Physician. rt 09:18 Triage completed. iw 09:20 Enma Larkin, PADMA is Primary Nurse. nj1 09:45 Patient has correct armband on for positive identification. Bed in low position. Call nj1 light in reach. Adult w/ patient. 09:45 Provided Education on: call light, fall precautions. nj1 10:00 Inserted saline lock: 24 gauge in left antecubital area, using aseptic technique. Blood nj1 collected. 10:35 Arm band placed on right wrist. nj1 11:45 Kenan Velazquez DO is Referral Physician. rt 12:26 Primary Nurse role handed off by Enma Larkin RN iw 12:26 Ritika Presley, PADMA is Primary Nurse. iw 14:28 No provider procedures requiring assistance completed. IV discontinued, intact, iw bleeding controlled, No redness/swelling at site. Pressure dressing applied. 15:31 Primary Nurse role handed off by Ritika Presley RN iw Administered Medications: 10:00 Drug: NS 0.9% IV 1000 ml IV at 1 bolus Per protocol; 1000 mL bolus Route: IV; Rate: 1 db bolus; Site: left antecubital; 14:20 Follow up: IV Status: Completed infusion iw Medication: 14:00 VIS not applicable for this client. iw Outcome: 11:45 Discharge ordered by MD. rt 14:28 Discharged to home ambulatory, with family, iw 14:28 Condition: good 14:28 Discharge instructions given to patient, family, Instructed on discharge instructions, follow up and referral plans. Demonstrated understanding of instructions, follow-up care, 14:29 Patient left the ED. iw Signatures: Isadora Sidhu, Reg Reg mr Ritika Presley, PADMA ROUSE iw Shelli Barnes RN RN db Rod Garcai MD MD rt Enma Larkin, PADMA RN nj1 Corrections: (The following items were deleted from the chart) 10:43 09:45 GI: nj1 nj1
--- NOTE | 2023-05-18 11:46 | EDPHYS ---
Physician Documentation [facility] Name: Rena Reddy Age: 77 yrs Sex: Female : 1945 Arrival Date: 05/18/2023 Time: 08:58 Bed Treatment Private MD: Kenan Velazquez ED Physician Rod Garcia HPI: 05/17 09:26 This 77 yrs old Female presents to ER via Ambulatory with complaints of rt Dehydrated. 09:26 Patient presents to the ED feeling weak, shaky, generally feeling poorly. Denies any rt pain, nausea, vomiting. The patient was seen at her primary care's office, labs were drawn that revealed a creatinine of 1.7 and a potassium of 6.4 with elevated BUN. Was sent to the ED for further evaluation. Symptoms are moderate in severity, no other aggravating or alleviating factors.. Historical: - Allergies: :18 NKDA; iw - PMHx: :18 Diabetes - NIDDM; Hyperlipidemia; Myocardial infarction; Hypertension; Kidney stones; iw - PSHx: :18 3 heart stents; Cholecystectomy; Thyroidectomy; watchman; iw - Immunization history:: Adult Immunizations unknown. - Social history:: Smoking status: unknown. ROS: 09:26 Constitutional: Negative for fever, chills, and weight loss, Cardiovascular: Negative rt for chest pain, palpitations, and edema, Respiratory: Negative for shortness of breath, cough, wheezing, and pleuritic chest pain, Abdomen/GI: Negative for abdominal pain, nausea, vomiting, diarrhea, and constipation, MS/Extremity: Negative for injury and deformity, Skin: Negative for injury, rash, and discoloration, Psych: Negative for depression, anxiety, suicide ideation, homicidal ideation, and hallucinations, : Constitutional: Positive for fatigue, malaise, : Neuro: Positive for dizziness, weakness, Exam: :26 Constitutional: This is a well developed, well nourished patient who is awake, alert, rt and in no acute distress. Head/Face: Normocephalic, atraumatic. Chest/axilla: Normal chest wall appearance and motion. Nontender with no deformity. No lesions are appreciated. Cardiovascular: Regular rate and rhythm with a normal S1 and S2. No gallops, murmurs, or rubs. Normal PMI, no JVD. No pulse deficits. Respiratory: Lungs have equal breath sounds bilaterally, clear to auscultation and percussion. No rales, rhonchi or wheezes noted. No increased work of breathing, no retractions or nasal flaring. Abdomen/GI: Soft, non-tender, with normal bowel sounds. No distension or tympany. No guarding or rebound. No evidence of tenderness throughout. Skin: Warm, dry with normal turgor. Normal color with no rashes, no lesions, and no evidence of cellulitis. MS/ Extremity: Pulses equal, no cyanosis. Neurovascular intact. Full, normal range of motion. Neuro: Awake and alert, GCS 15, oriented to person, place, time, and situation. Cranial nerves II-XII grossly intact. Motor strength 5/5 in all extremities. Sensory grossly intact. Cerebellar exam normal. Normal gait. Psych: Awake, alert, with orientation to person, place and time. Behavior, mood, and affect are within normal limits. 09:26 ENT: Dry mucous membranes. 09:48 ECG was reviewed by the Attending Physician. rt Vital Signs: 09:16 BP 146 / 60; Pulse 71; Resp 16; Temp 97.4; Pulse Ox 100% on R/A; Weight 63.5 kg; Height iw 5 ft. 2 in. ; 10:43 BP 139 / 65; Pulse 68; Resp 16; Pulse Ox 100% ; nj1 11:30 BP 134 / 64; Pulse 67; Resp 18; Pulse Ox 99% on R/A; db 09:16 Body Mass Index 25.61 (63.50 kg, 157.48 cm) iw MDM: 09:20 Patient medically screened. rt 11:59 Differential Diagnosis Electrolyte disturbance, VIDAL, dehydration. Data reviewed: vital rt signs, nurses notes, lab test result(s), EKG. Consideration of Admission/Observation Escalation of care including admission/observation considered. Patient with improving creatinine, normal electrolytes, symptomatically improving. Will hydrate patient, have her follow-up as an outpatient.. I considered the following discharge prescriptions or medication management in the emergency department Medications were administered in the Emergency Department. See MAR. Test considered but Not performed: Other Details No signs or symptoms to suggest an obstructive uropathy, urinalysis is unremarkable, CT scan not indicated. Care significantly affected by the following chronic conditions: Diabetes. Counseling: I had a detailed discussion with the patient and/or guardian regarding the historical points, exam findings, and any diagnostic results supporting the discharge/admit diagnosis, lab results, the need for outpatient follow up. Response to treatment: the patient's symptoms have markedly improved after treatment. 05/17 10:15 Order name: Urinalysis W/Microscopic; Complete Time: 10:59 EDMS 05/17 10:20 Order name: Comprehensive Metabolic Panel; Complete Time: 10:59 EDMS 05/17 10:20 Order name: Phosphorus; Complete Time: 10:59 EDMS 05/17 10:20 Order name: Magnesium; Complete Time: 10:59 EDMS 05/17 10:57 Order name: CBC with Automated Diff; Complete Time: 10:59 EDMS 05/17 09:25 Order name: EKG; Complete Time: 17:16 rt 05/17 09:25 Order name: EKG - Nurse/Tech; Complete Time: 09:39 rt 05/17 10:07 Order name: Labs - recollect needed: recollect lavender top; Complete Time: 10:33 bd EC:48 Rate is 68 beats/min. Rhythm is regular, Normal Sinus Rhythm with No ectopy. QRS [place] rt is Normal. [place] interval is normal. QRS interval is normal. QT interval is normal. No Q waves. T waves are Normal. No ST changes noted. Interpreted by me. Administered Medications: 10:00 Drug: NS 0.9% IV 1000 ml IV at 1 bolus Per protocol; 1000 mL bolus Route: IV; Rate: 1 db bolus; Site: left antecubital; 14:20 Follow up: IV Status: Completed infusion iw Disposition Summary: 05/18/23 11:45 Discharge Ordered Notes: Location: Home rt Problem: new rt Symptoms: have improved rt Condition: Stable rt Diagnosis - Dehydration rt Followup: rt - With: Kenan Velazquez DO - When: 2 - 3 days - Reason: Discharge Instructions: - Discharge Summary Sheet rt - Dehydration, Adult rt Forms: - Medication Reconciliation Form rt - Thank You Letter rt - Antibiotic Education rt - Prescription Opioid Use rt - Patient Portal Instructions rt - Leadership Thank You Letter rt Signatures: Dispatcher [employer] EDMO Marly Francis Ritika Presley RN RN iw Barnes, Shelli, RN RN db [place], Rod, MD MD rt Trae, Enma, RN RN nj1
[2023-05-18 14:56] VITALS: BP 134/64; TEMP 97.4; O2SAT 99
== END ==
LOC: ER 08:58
DX: E86.0 Dehydration (principal); E11.9 Type 2 diabetes mellitus without complications; I10 Essential (primary) hypertension; Z95.818 Presence of other cardiac implants and grafts
CPT/HCPCS: 85025; 81001; 36415; 83735; 84100; 80053; J7030

== ENCOUNTER 2023-06-06 18:06 | Inpatient (IN) | payer OTHER ==
[2023-06-06] MEDS ORDERED: NA CHLORIDE 0.9% 500 ML ONE ×2 (18:37→20:16)
[2023-06-06 18:58] LABS: Absolute Eosinophils 0.2 K/uL (0-0.5); Absolute Lymphocytes (CBC) 1.3 K/uL (0.7-4.9); Absolute Monocytes 0.8 K/uL (0.1-1.3); Absolute Neutrophil 3.9 K/uL (1.8-8.0); Basophils % 0.8 % (0-1.3); Eosinophils % 3.1 % (0-4.4); Hematocrit 30.1 % (36.0-45.0); Hemoglobin 9.7 g/dL (12.0-15.0); Lymphocytes % 20.4 % (15.3-44.8); MCHC 32.3 g/dL (32.0-36.0); MCV 86.8 fL (80-100); MPV 8.6 fL (7.6-11.3); Monocytes % 13.5 % (3.3-12.3); Neutrophils % 62.2 % (41.7-73.7); Platelets 238 thou/uL (152-406); RBC Red Blood Cell Count 3.47 M/uL (3.86-4.86)
[2023-06-06 19:06] LABS: Specific Gravity 1.012 (1.005-1.030); Sqamous Epithelial <5 /HPF (None Seen); Urine Bacteria 20-50 /HPF (<20); Urine Bilirubin NEGATIVE (Negative); Urine Blood 1+ (Negative); Urine Clarity Extremely Turbid (Clear); Urine Color Yellow (Yellow); Urine Culture Reflex Order REFLEXED; Urine Glucose NEGATIVE (Negative); Urine Ketones NEGATIVE (Negative); Urine Micro Reflex YN NO BILL MICROSCOPIC; Urine Mucus Slight /HPF (None Seen); Urine Nitrite NEGATIVE (Negative); Urine Protein 1+ (Negative); Urine Urobilinogen Normal (Normal); Urine WBC >50 /HPF (<5); Urine WBC Clump Few /HPF (None Seen); Urine pH 5.5 (5.0-7.0)
--- NOTE | 2023-06-06 19:09 | RAD REPORT ---
EXAM DESCRIPTION: RAD - Chest Single View - 06/06/2023 6:56 pm CLINICAL HISTORY: weakness COMPARISON: Chest Single View dated 10/02/2022; Abdomen 1 View (KUB) dated 07/15/2022; Chest Single Vi ew dated 06/29/2022; Chest Single View dated 05/17/2022 FINDINGS: Lines: None. Lungs: No evidence of edema or pneumonia. Pleural: No significant pleural effusions or pneumothorax. Cardiac: The heart size is within normal limits. Mediastinum: Within normal limits. Bones: No acute fractures. Other: None IMPRESSION: No acute cardiopulmonary disease.
[2023-06-06 19:20] LABS: Albumin 3.2 g/dL (3.4-5.0); Albumin/Globulin Ratio 0.8 (1.1-1.8); Anion Gap 12.4 mEq/L (5.0-15.0); Bilirubin Direct 0.2 mg/dL (0-0.2); Bilirubin Indirect, Calculated 0.2 mg/dL (0.2-0.8); Bilirubin Total 0.4 mg/dL (0.2-1.0); Globulin 3.9 g/dL (2.3-3.5); Magnesium 1.2 mg/dL (1.6-2.4); Potassium 4.4 mEq/L (3.5-5.1); Protein, Total 7.1 g/dL (6.4-8.2); Troponin High Sensitivity 4.2 pg/mL (<58.9)
[2023-06-06] MEDS ORDERED: CEFTRIAXONE 1000 MG/VIAL ONE (20:16)
[2023-06-06] MEDS ORDERED: NA CHLORIDE 0.9% 50 ML ONE (20:17)
[2023-06-06] MEDS ORDERED: Magnesium Sulfate 2gm IVPB 2 G/50 ML BAG IV ONE (20:17)
--- NOTE | 2023-06-06 20:52 | RAD REPORT ---
EXAM DESCRIPTION: CTAbdomen Pelvis W Contrast - 06/06/2023 8:39 pm CLINICAL HISTORY: ABD PAIN COMPARISON: Abdomen Pelvis W Contrast dated 05/13/2022; Abdomen Pelvis W Contrast dated 04/14/2022; Abdomen Pelvis W Contrast dated 03/29/2021; Abdomen Pelvis W Contrast dated 11/17/2016 TECHNIQUE: CT of the abdomen and pelvis was performed. All CT scans are performed using dose optimization technique as appropriate and may include automated exposure control or mA/KV adjustment according to patient size. FINDINGS: Lower chest: Atrial appendage occlusion device. Coronary artery calcifications. Aortic ewelina ve calcifications. Liver: No acute abnormality or suspicious lesions. Biliary: No biliary ductal dilatation. Cholecystectomy Stomach: No significant focal abnormality. Duodenum: No significant focal abnormality. Pancreas: No significant abnormality. Spleen: No significant abnormality. Adrenal: No suspicious lesions. Kidney/ureter: Similar dilated right lower pole calyx with layering stones. Renal scarring. No ureter al calculi. Similar bilateral ureteral fullness. Retroperitoneum: No retroperitoneal adenopathy. Vascular: No aneurysm. Atherosclerosis. Bowel: No significant focal abnormality. Normal appendix. Peritoneum: No ascites or free air. Bladder: Grossly unremarkable. Reproductive: No adnexal masses. Bones: No acute fracture. Multilevel degenerative changes are present in the spine. Other: n/a IMPRESSION: No acute intra-abdominal or pelvic finding. Nonobstructive right nephrolithiasis. Other chronic findings as noted above.
--- NOTE | 2023-06-06 20:53 | RAD REPORT ---
EXAM DESCRIPTION: CT - Head Brain Wo Cont - 06/06/2023 8:38 pm CLINICAL HISTORY: Dizziness;Weakness COMPARISON: Head Brain Wo Cont dated 12/10/2017; HEAD BRAIN W O CONTRAST dated 04/08/2012 TECHNIQUE: All CT scans are performed using dose optimization technique as appropriate and may inclu de automated exposure control or mA/KV adjustment according to patient size. FINDINGS: No intracranial hemorrhage, hydrocephalus or extra-axial fluid collection.No areas of brai n edema or evidence of midline shift. The paranasal sinuses and mastoids are clear. The calvarium is intact. IMPRESSION: No acute intracranial abnormality.
[2023-06-06 20:58] LABS: Blood Morphology Comment NOT SEEN (NOT SEEN); Platelet Estimate ADEQ; White Blood Cell Scan OK (OK)
--- NOTE | 2023-06-06 21:02 | ER ---
Nurse's Notes [facility] Name: Rena Reddy Age: 77 yrs Sex: Female : 1945 Arrival Date: 06/06/2023 Time: 18:06 Bed 13 Private MD: Diagnosis: Urinary tract infection following delivery, unspecified;Sepsis, unspecified organism;Weakness;Dizziness and giddiness Presentation: 06/05 18:15 Chief complaint: Patient states: weakness, fatigue, lightheaded, urinary frequency that as6 started yesterday. Coronavirus screen: At this time, the client does not indicate any symptoms associated with coronavirus-19. Ebola Screen: No symptoms or risks identified at this time. Initial Sepsis Screen: Does the patient meet any 2 criteria? No. Patient's initial sepsis screen is negative. Does the patient have a suspected source of infection? No. Patient's initial sepsis screen is negative. Risk Assessment: Do you want to hurt yourself or someone else? Patient reports no desire to harm self or others. Onset of symptoms was June 05, 2023. 18:15 Acuity: JULES 3 as6 18:15 Method Of Arrival: Ambulatory as6 Historical: - Allergies: 18:14 NKDA; as6 - PMHx: 18:14 Kidney stones; Myocardial infarction; Hypertension; Hyperlipidemia; Diabetes - NIDDM; as6 - PSHx: 18:14 3 heart stents; Cholecystectomy; Thyroidectomy; watchman; as6 - Immunization history:: Adult Immunizations up to date. - Social history:: Smoking status: Patient denies any tobacco usage or history of. Screenin:54 [facility] ED Fall Risk Assessment (Adult) History of falling in the last 3 months, kc6 including since admission No falls in past 3 months (0 pts) Confusion or Disorientation No (0 pts) Intoxicated or Sedated No (0 pts) Impaired Gait No (0 pts) Mobility Assist Device Used No (0 pt) Altered Elimination No (0 pt) Score/Fall Risk Level 0 - 2 = Low Risk. Abuse screen: Denies threats or abuse. Denies injuries from another. Nutritional screening: No deficits noted. Tuberculosis screening: No symptoms or risk factors identified. Assessment: 18:54 General: Appears in no apparent distress. comfortable, well groomed, well developed, kc6 Behavior is calm, cooperative, appropriate for age. Pain: Complains of pain in abdomen. Neuro: Level of Consciousness is awake, alert, obeys commands, Oriented to person, place, time, situation, Appropriate for age Reports dizziness, headache weakness. Cardiovascular: Capillary refill < 3 seconds. Respiratory: Airway is patent Trachea midline Respiratory effort is even, unlabored, Respiratory pattern is regular, symmetrical. GI: Abdomen is flat, non-distended, Bowel sounds present X 4 quads. Abd is soft X 4 quads Reports upper abdominal pain. : No signs and/or symptoms were reported regarding the genitourinary system. EENT: No signs and/or symptoms were reported regarding the EENT system. Derm: No signs and/or symptoms reported regarding the dermatologic system. Skin is intact, is healthy with good turgor, Skin is pink, warm \T\ dry. Musculoskeletal: No signs and/or symptoms reported regarding the musculoskeletal system. Circulation, motion, and sensation intact. Capillary refill < 3 seconds, Range of motion: intact in all extremities. 19:15 General: Appears in no apparent distress. comfortable, Behavior is calm, cooperative. jw7 Pain: Denies pain. 19:15 Neuro: Level of Consciousness is awake, alert, obeys commands, Oriented to person, jw7 place, time, situation. Cardiovascular: Heart tones S1 S2 present Capillary refill < 3 seconds Clubbing of nail beds is absent JVD is absent Patient's skin is warm and dry. Respiratory: Airway is patent Trachea midline Respiratory effort is even, unlabored, Respiratory pattern is regular, symmetrical, Breath sounds are clear bilaterally. GI: Abdomen is flat, non-distended, Bowel sounds present X 4 quads. Abd is soft X 4 quads. : No deficits noted. No signs and/or symptoms were reported regarding the genitourinary system. EENT: No deficits noted. No signs and/or symptoms were reported regarding the EENT system. Derm: Skin is intact, is healthy with good turgor, Skin is dry, Skin is normal, Skin temperature is warm. Musculoskeletal: Circulation, motion, and sensation intact. Range of motion: intact in all extremities. 20:30 Reassessment: Patient appears in no apparent distress at this time. No changes from jw7 previously documented assessment. Patient and/or family updated on plan of care and expected duration. Pain level reassessed. Patient is alert, oriented x 3, equal unlabored respirations, skin warm/dry/pink. 21:30 Reassessment: Patient appears in no apparent distress at this time. No changes from 7 previously documented assessment. Patient and/or family updated on plan of care and expected duration. Pain level reassessed. Patient is alert, oriented x 3, equal unlabored respirations, skin warm/dry/pink. 22:29 Reassessment: Patient appears in no apparent distress at this time. No changes from jw7 previously documented assessment. Patient and/or family updated on plan of care and expected duration. Pain level reassessed. Patient is alert, oriented x 3, equal unlabored respirations, skin warm/dry/pink. 23:30 Reassessment: Patient appears in no apparent distress at this time. Patient and/or jw7 family updated on plan of care and expected duration. Pain level reassessed. Patient is alert, oriented x 3, equal unlabored respirations, skin warm/dry/pink. Patient states feeling better. Patient states symptoms have improved. Vital Signs: 18:13 BP 148 / 69; Pulse 85; Resp 18 S; Temp 97.8(TE); Pulse Ox 98% on R/A; Weight 65.77 kg as6 (R); Height 5 ft. 1 in. (R); Pain 8/10; 19:30 BP 131 / 53; Pulse 68; Resp 17 S; Pulse Ox 99% on R/A; jw7 21:00 BP 157 / 69; Pulse 86; Resp 16 S; Pulse Ox 98% on R/A; jw7 22:00 BP 131 / 63; Pulse 80; Resp 16 S; Pulse Ox 98% on R/A; jw7 23:15 BP 122 / 61; Pulse 79; Resp 16 S; Pulse Ox 96% on R/A; jw7 18:13 Body Mass Index 27.40 (65.77 kg, 154.94 cm) as6 18:13 Pain Scale: Adult as6 ED Course: 18:10 Patient arrived in ED. im 18:10 Stefano De Paz PA is PHCP. cp 18:10 Reji Quintanilla MD is Attending Physician. cp 18:15 Arm band placed on. as6 18:16 Triage completed. as6 18:16 Dayan Rao, PADMA is Primary Nurse. kc6 18:53 Missed attempt(s): 22 gauge in right antecubital area. Patient maintains SpO2 kc6 saturation greater than 95% on room air. 18:53 Urinalysis W/Microscopic Sent. kc6 18:54 Patient has correct armband on for positive identification. Bed in low position. Call kc6 light in reach. Side rails up X 1. Adult w/ patient. Client placed on continuous cardiac and pulse oximetry monitoring. NIBP monitoring applied. 18:58 XRAY Chest (1 view) In Process Unspecified. EDMS 19:00 Report received from PADMA Mathew. jw7 19:00 Provided Education on: USE OF CALL LIGHT. jw7 19:08 Primary Nurse role handed off by Dayan Rao RN as6 19:09 Janet Keenan RN is Primary Nurse. jw7 19:40 No provider procedures requiring assistance completed. Inserted saline lock: 22 gauge pf1 in left antecubital area, using aseptic technique. 20:40 CT Head Brain wo Cont In Process Unspecified. EDMS 20:41 CT Abd/Pelvis - IV Contrast Only In Process Unspecified. EDMS 21:01 Curt Beltre MD is Hospitalizing Provider. 22:20 Repeat lab(s) drawn. by mi, sent to lab. [facility] 23:54 Patient admitted, IV remains in place. jw7 Administered Medications: 19:40 Drug: NS 0.9% IV 500 ml IV at 500 ml/hr continuous Route: IV; Rate: 500 ml/hr; Site: [facility] left antecubital; 23:53 Follow up: Response: No adverse reaction; IV Status: Completed infusion; IV Intake: jw7 500ml 21:12 Drug: NS 0.9% IV 500 ml IV at 500 ml/hr continuous Route: IV; Rate: 500 ml/hr; Site: [facility] left antecubital; 23:53 Follow up: Response: No adverse reaction; IV Status: Completed infusion; IV Intake: jw7 500ml 21:12 Drug: Rocephin IV 1 grams IV at calculated rate once; Given slow IV push per pharmacy jw7 instructions Route: IV; Rate: calculated rate; Site: left antecubital; 23:53 Follow up: Response: No adverse reaction; IV Status: Completed infusion; IV Intake: [id number] 21:12 Drug: Magnesium Sulfate IVPB 2 grams IVPB once over 2 hrs Route: IVPB; Infused Over: 2 jw7 hrs; Site: left antecubital; 23:53 Follow up: Response: No adverse reaction; IV Status: Completed infusion; IV Intake: [id number] Medication: 23:54 VIS not applicable for this client. jw7 Intake: 23:53 IV: 50ml; Total: 50ml. jw7 23:53 IV: 10ml; Total: 60ml. jw7 23:53 IV: 500ml; Total: 560ml. jw7 23:53 IV: 500ml; Total: 1060ml. jw7 Outcome: 21:02 Decision to Hospitalize by Provider. cp 23:53 Admitted to Med/surg accompanied by tech, via wheelchair, jw7 23:53 Condition: stable 23:53 Instructed on the need for admit, Demonstrated understanding of instructions, 23:54 Patient left the ED. jw7 Signatures: Dispatcher [employer] EDMS Stefano De Paz PA PA cp Slawson, Ashby, RN RN as6 Janet Keenan RN RN jw7 Dayan Rao RN RN jose [email or web address] Martha Sy RN RN pf1 Ofelia Jacinto Kelsey Maroul km
--- NOTE | 2023-06-06 21:02 | EDPHYS ---
Physician Documentation [facility] Name: Rena Reddy Age: 77 yrs Sex: Female : 1945 Arrival Date: 06/06/2023 Time: 18:06 Bed 13 Private MD: ED Physician Reji Quintanilla HPI: 06/05 18:40 This 77 yrs old Female presents to ER via Ambulatory with complaints of cp Dizziness, Abdominal Pain, General Weakness, Headache. 18:40 The patient presents with dizziness, feeling faint, generalized weakness, cp lightheadedness. Onset: The symptoms/episode began/occurred yesterday, and became worse today. Context: just prior to the episode the patient experienced no apparent symptoms. Associated signs and symptoms: Pertinent negatives: chest pain, focal weakness, headache, palpitations, vomiting. Severity of symptoms: in the emergency department the symptoms are unchanged despite home interventions, despite EMS interventions. Patient's baseline: Neuro: alert and fully oriented, Motor: no deficits, Ambulation: walks without assistance, Speech: normal. Historical: - Allergies: 18:14 NKDA; as6 - PMHx: 18:14 Kidney stones; Myocardial infarction; Hypertension; Hyperlipidemia; Diabetes - NIDDM; as6 - PSHx: 18:14 3 heart stents; Cholecystectomy; Thyroidectomy; watchman; as6 - Immunization history:: Adult Immunizations up to date. - Social history:: Smoking status: Patient denies any tobacco usage or history of. ROS: 18:45 Constitutional: Negative for body aches, chills, fever, poor PO intake, cp 18:45 Eyes: Negative for injury, pain, redness, and discharge, cp 18:45 ENT: Negative for drainage from ear(s), ear pain, sore throat, difficulty swallowing, difficulty handling secretions, 18:45 Cardiovascular: Negative for chest pain, edema, palpitations, 18:45 Respiratory: Negative for cough, shortness of breath, wheezing, 18:45 Abdomen/GI: Positive for abdominal pain, of the suprapubic area, Negative for vomiting, diarrhea, constipation, 18:45 Back: Negative for pain at rest, pain with movement, 18:45 : Negative for urinary symptoms, 18:45 Neuro: Positive for dizziness, near syncope, weakness, Negative for altered mental status, headache, numbness, speech changes, syncope, tingling, 18:45 All other systems are negative, Exam: 18:50 Constitutional: The patient appears in no acute distress, alert, awake, cp non-diaphoretic, non-toxic, well developed, well nourished, 18:50 Head/Face: Normocephalic, atraumatic. cp 18:50 Eyes: Periorbital structures: appear normal, Pupils: equal, round, and reactive to light and accomodation, Extraocular movements: intact throughout, Conjunctiva: normal, no exudate, no injection, Sclera: no appreciated abnormality, Lids and lashes: appear normal, bilaterally, 18:50 ENT: External ear(s): are unremarkable, Nose: is normal, Mouth: Lips: moist, Oral mucosa: pink and intact, moist, Posterior pharynx: Airway: no evidence of obstruction, patent, Voice: is normal, 18:50 Neck: ROM/movement: is normal, is supple, without pain, no range of motions limitations, no meningismus, no nuchal rigidity, 18:50 Chest/axilla: Inspection: normal, 18:50 Cardiovascular: Rate: normal, Rhythm: regular, Edema: is not appreciated, JVD: is not appreciated, 18:50 Respiratory: the patient does not display signs of respiratory distress, Respirations: normal, no use of accessory muscles, no retractions, labored breathing, is not present, Breath sounds: are clear throughout, no decreased breath sounds, no stridor, no wheezing, 18:50 Abdomen/GI: Inspection: abdomen appears normal, Palpation: abdomen is soft and non-tender, in all quadrants, 18:50 Back: pain, is absent, ROM is normal, 18:50 Neuro: Orientation: to person, place \T\ time. Mentation: is normal, Cerebellar function: Romberg testing is negative, Motor: moves all fours, no focal deficits, Sensation: is normal, Vital Signs: 18:13 BP 148 / 69; Pulse 85; Resp 18 S; Temp 97.8(TE); Pulse Ox 98% on R/A; Weight 65.77 kg as6 (R); Height 5 ft. 1 in. (R); Pain 8/10; 19:30 BP 131 / 53; Pulse 68; Resp 17 S; Pulse Ox 99% on R/A; jw7 21:00 BP 157 / 69; Pulse 86; Resp 16 S; Pulse Ox 98% on R/A; jw7 22:00 BP 131 / 63; Pulse 80; Resp 16 S; Pulse Ox 98% on R/A; jw7 23:15 BP 122 / 61; Pulse 79; Resp 16 S; Pulse Ox 96% on R/A; jw7 18:13 Body Mass Index 27.40 (65.77 kg, 154.94 cm) as6 18:13 Pain Scale: Adult as6 MDM: 18:16 Patient medically screened. cp 21:05 Data reviewed: vital signs, nurses notes, lab test result(s), EKG, radiologic studies, cp CT scan, plain films. 21:05 Differential diagnosis: cardiac arrhythmia, GI bleed, hypovolemia, sepsis, vertigo. cp Management of patient was discussed with the following: Hospitalist: DR Beltre will admit after discussion. Independent interpretation of the following test(s) in the Emergency Department EKG: See my EKG interpretation above. Care significantly affected by the following chronic conditions: Diabetes. Counseling: I had a detailed discussion with the patient and/or guardian regarding the historical points, exam findings, and any diagnostic results supporting the discharge/admit diagnosis, lab results, radiology results, the need for further work-up and treatment in the hospital, to return to the emergency department if symptoms worsen or persist or if there are any questions or concerns that arise at home. Response to treatment: the patient's symptoms have mildly improved after treatment. 06/05 18:34 Order name: Basic Metabolic Panel; Complete Time: 19:52 cp 06/05 19:52 Interpretation: Normal except: NA 132; GLUC 171; BUN 27; CRE 1.42; GFR 39. cp 06/05 18:34 Order name: CBC with Diff cp 06/05 19:52 Interpretation: Normal except: RBC 3.47; HGB 9.7; HCT 30.1; MN% 13.5. cp 06/05 18:34 Order name: LFT's; Complete Time: 19:52 cp 06/05 19:52 Interpretation: Normal except: AST 10; ALB 3.2; GLOB 3.9; A/G 0.8. cp 06/05 18:34 Order name: Magnesium; Complete Time: 19:52 cp 06/05 19:52 Interpretation: Abnormal: MG 1.2. cp 06/05 18:34 Order name: Troponin HS; Complete Time: 19:52 cp 06/05 18:35 Order name: Urinalysis W/Microscopic; Complete Time: 19:52 cp 06/05 18:35 Order name: Lactate w/ 2H reflex if indic.; Complete Time: 19:52 cp 06/05 19:53 Interpretation: Abnormal: LAC 2.3. 06/05 19:08 Order name: Urine Culture [facility] 06/05 20:58 Order name: CBC Smear Scan [facility] 06/05 21:42 Order name: CBC with Automated Diff [facility] 06/05 21:42 Order name: CBC with Automated Diff [facility] 06/05 21:42 Order name: Comprehensive Metabolic Panel [facility] 06/05 21:42 Order name: Comprehensive Metabolic Panel [facility] 06/05 22:59 Order name: Lactate Sepsis 2 HR Follow-up [facility] 06/05 18:34 Order name: XRAY Chest (1 view); Complete Time: 19:52 cp 06/05 19:54 Order name: CT Head Brain wo Cont; Complete Time: 20:55 cp 06/05 19:54 Order name: CT Abd/Pelvis - IV Contrast Only; Complete Time: 20:55 cp 06/05 18:34 Order name: EKG; Complete Time: 18:35 cp 06/05 18:34 Order name: Cardiac monitoring; Complete Time: 18:53 cp 06/05 18:34 Order name: EKG - Nurse/Tech; Complete Time: 18:53 cp 06/05 18:34 Order name: IV Saline Lock; Complete Time: 19:45 cp 06/05 18:34 Order name: Labs collected and sent; Complete Time: 18:53 cp 06/05 18:34 Order name: O2 Per Protocol; Complete Time: 18:36 cp 06/05 18:34 Order name: O2 Sat Monitoring; Complete Time: 18:36 cp Administered Medications: 19:40 Drug: NS 0.9% IV 500 ml IV at 500 ml/hr continuous Route: IV; Rate: 500 ml/hr; Site: [facility] left antecubital; 23:53 Follow up: Response: No adverse reaction; IV Status: Completed infusion; IV Intake: jw7 500ml 21:12 Drug: NS 0.9% IV 500 ml IV at 500 ml/hr continuous Route: IV; Rate: 500 ml/hr; Site: jw7 left antecubital; 23:53 Follow up: Response: No adverse reaction; IV Status: Completed infusion; IV Intake: jw7 500ml 21:12 Drug: Rocephin IV 1 grams IV at calculated rate once; Given slow IV push per pharmacy jw7 instructions Route: IV; Rate: calculated rate; Site: left antecubital; 23:53 Follow up: Response: No adverse reaction; IV Status: Completed infusion; IV Intake: [id number] 21:12 Drug: Magnesium Sulfate IVPB 2 grams IVPB once over 2 hrs Route: IVPB; Infused Over: 2 jw7 hrs; Site: left antecubital; 23:53 Follow up: Response: No adverse reaction; IV Status: Completed infusion; IV Intake: [id number] Disposition Summary: 06/06/23 21:02 Hospitalization Ordered Notes: Hospitalization Status: Inpatient Admission cp Provider: Curt Beltre cp [facility] cp Condition: Stable cp Problem: new cp Symptoms: have improved cp Bed/Room Type: Standard cp Room Assignment: 208(06/06/23 22:01) ty Diagnosis - Urinary tract infection following delivery, unspecified cp - Sepsis, unspecified organism cp - Weakness cp - Dizziness and giddiness cp Forms: - Medication Reconciliation Form cp - SBAR form cp - Leadership Thank You Letter cp Signatures: Dispatcher [employer] EDMS Stefano De Paz PA PA cp Star Solo RN RN as6 Janet Keenan RN RN jw7 Martha Sy RN RN pf1 David Mclean ty Corrections: (The following items were deleted from the chart) 18:36 18:35 Urinalysis W/Microscopic+U.LAB.BRZ ordered. EDMS EDMS 18:36 18:35 LACTATE+C.LAB.BRZ ordered. EDMS EDMS 19:54 19:54 Head Brain Wo Cont+CT.RAD.BRZ ordered. EDMS EDMS 19:54 19:54 Abdomen Pelvis W Con+CT.RAD.BRZ ordered. EDMS EDMS 22:01 21:02 cp ty
--- NOTE | 2023-06-06 21:42 | P.HP ---
Certification for Inpatient Patient admitted to: Observation With expected LOS: <2 Midnights Patient will require the following post-hospital care: None Practitioner: I am a practitioner with admitting privileges, knowledge of patient current condition, hospital course, and medical plan of care. Services: Services provided to patient in accordance with Admission requirements found in Title 42 Section 412.3 of the Code of Federal Regulations Patient History Date of Service: 06/07/23 Reason for admission: Generalized weakness and fatigue History of Present Illness: Patient is a 77-year-old female with history of hypertension, type 2 diabetes, dyslipidemia, coronary artery disease, gastroesophageal reflux disease, and chronic urinary tract infections who presented to the emergency room with generalized weakness and fatigue. Patient has chronic urinary tract infections, and patient follows up with Dr. Bertrand, urology. Patient's primary care p chago is Dr. Velazquez. Patient came to the emergency room for further review evaluation. In the emergency room, patient's workup revealed a urinary tract infection. Patient will be started on IV fluids and IV antibiotics. Patient states she has been dealing with urinary tract infections quite regularly. She has a pretty strong stream but she continues to have recurrent infections. At this time, she will be admitted to the hospital for observation. Patient lives at home with her daughter. Her daughter is her main machine heel sprayer. Will continue with current evaluation. Allergies No Known Drug Allergies Allergy (Verified 06/07/23 00:04) Unknown Home Medications: ALPRAZolam [Xanax*] 0.25 mg PO PRN 06/07/23 Alfuzosin HCl 10 mg PO DAILY 06/07/23 Amlodipine [Norvasc*] 5 mg PO DAILY 06/07/23 Aspirin Chewable [Aspirin Chewable*] 81 mg PO DAILY 06/07/23 Atorvastatin Calcium [Lipitor] 40 mg PO DAILY 06/07/23 Celecoxib 200 mg PO DAILY 06/07/23 Estradiol Vaginal 0.1% Cream 1 milagro VAG DAILY 06/07/23 Furosemide [Lasix*] 20 mg PO DAILY 06/07/23 Insulin Glargine,Hum.rec.anlog [Basaglar Kwikpen U-100] 30 units SQ BEDTIME 06/07/23 Lisinopril [Zestril] 20 mg PO DAILY 06/07/23 Metformin HCl [Glucophage*] 500 mg PO BID 06/07/23 Nitroglycerin [Nitrostat*] 0.4 mg SL PRN 06/07/23 Pantoprazole [Protonix Tab*] 40 mg PO DAILY 06/07/23 Sotalol HCl [Betapace*] 80 mg PO BID 06/07/23 - Past Medical/Surgical History Diabetic: Yes -: HTN -: Type 2 diabetes -: Coronary artery disease -: Nephrolithiasis -: GERD -: Hyperlipidemia -: Thyroidectomy -: Stent in LAD (03/2014) -: Cholecystectomy -: Extraction of nephrolithiasis Psychosocial/ Personal History: Patient lives at home with her daughter. - Family History Father Medical History: Heart disease, Hypertension, Diabetes, Stroke Mother Medical History: Heart disease, Diabetes Sister Medical History: Hypertension, Diabetes, Cancer Notes: breast cancer Brother Medical History: Heart disease, Stroke - Social History Smoking Status: Former smoker Alcohol use: No CD- Drugs: No Caffeine use: Yes Review of Systems 10-point ROS is otherwise unremarkable Physical Examination - Vital Signs Temperature: 98 F Blood Pressure: 130/80 Pulse: 80 Respirations: 18 Pulse Ox (%): 95 - Physical Exam General: Alert, In no apparent distress, Oriented x3 HEENT: Atraumatic, PERRLA, Mucous membr. moist/pink, EOMI, Sclerae nonicteric Neck: Supple, 2+ carotid pulse no bruit, No LAD, Without JVD or thyroid abnorma lity Respiratory: Clear to auscultation bilaterally, Normal air movement Cardiovascular: Regular rate/rhythm, Normal S1 S2, Systolic murmur Gastrointestinal: Normal bowel sounds, Soft and benign, Non-distended, No tenderness Musculoskeletal: No clubbing, No swelling, No tenderness Integumentary: No rashes Neurological: Normal gait, Normal speech, Normal strength at 5/5 x4 extr, Normal tone, Sensation intact, Cranial nerves 3-12 intact, Normal affect Lymphatics: No axilla or inguinal lymphadenopathy - Studies Laboratory Data (last 24 hrs) 06/06/23 06/06/23 18:50 18:50 WBC 6.20 Hgb 9.7 L Hct 30.1 L Plt Count 238 Sodium 132 L Potassium 4.4 BUN 27 H Creatinine 1.42 H Glucose 171 H Magnesium 1.2 L Total Bilirubin 0.4 AST 10 L ALT 17 Alkaline Phosphatase 63 Assessment & Plan - Problems (Diagnosis) (1) UTI (urinary tract infection) Current Visit: No Status: Acute Qualifiers: Urinary tract infection type: acute cystitis Hematuria presence: with yovany turia Qualified Code(s): N30.01 - Acute cystitis with hematuria (2) Diabetes mellitus Current Visit: No Status: Acute Qualifiers: Diabetes mellitus type: type 2 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 Patient with recurrent urinary tract infections with generalized weakness and fatigue; continue with IV fluids and IV antibiotics. Continue monitoring patient's electrolyte. Patient magnesium level was very low. Patient's magnesium was 1.2, and patient denies diarrhea. Plan to continue monitoring electrolytes closely. Continue monitoring renal function. Patient will be admitted for observation 2. Patient with metabolic syndrome; patient with hypertension/type 2 diabetes/dyslipidemia-continue with supportive care and resume home medications. Monitor hemodynamics and check A1c levels 3. History of cardiac disease; continue with antiplatelet therapy and statin therapy 4. History of gastroesophageal reflux disease; continue with PPI 5. GI and DVT prophylaxis Discharge Plan: Home Plan to discharge in: 24 Hours - Advance Directives Does patient have a Living Will: No Does patient have a Durable POA for Healthcare: No - Code Status/Comfort Care Code Status Assessed: Yes Code Status: Full Code Critical Care: No Time Spent Managing PTS Care (In Minutes): 45
[2023-06-07 00:46] VITALS: BMI 27.2
[2023-06-07] MEDS: NA CHLORIDE 0.9% 1,000 ML IV SCH (01:09)
[2023-06-07 05:12] LABS: Absolute Eosinophils 0.3 K/uL (0-0.5); Absolute Lymphocytes (CBC) 1.1 K/uL (0.7-4.9); Absolute Monocytes 0.7 K/uL (0.1-1.3); Absolute Neutrophil 2.5 K/uL (1.8-8.0); Basophils % 0.6 % (0-1.3); Eosinophils % 5.8 % (0-4.4); Hematocrit 29.2 % (36.0-45.0); Hemoglobin 9.6 g/dL (12.0-15.0); MCH 28.4 pg (27.0-35.0); MCHC 32.9 g/dL (32.0-36.0); MCV 86.4 fL (80-100); MPV 8.8 fL (7.6-11.3); Monocytes % 15.7 % (3.3-12.3); Neutrophils % 53.9 % (41.7-73.7); Platelets 236 thou/uL (152-406); RBC Red Blood Cell Count 3.38 M/uL (3.86-4.86); Red Cell Distribution Width 14.8 % (12.1-15.2)
[2023-06-07 05:19] LABS: Albumin 2.9 g/dL (3.4-5.0); Albumin/Globulin Ratio 0.8 (1.1-1.8); Anion Gap 9.7 mEq/L (5.0-15.0); Bilirubin Total 0.3 mg/dL (0.2-1.0); Globulin 3.8 g/dL (2.3-3.5); Protein, Total 6.7 g/dL (6.4-8.2)
[2023-06-07 05:25] LABS: Potassium 4.7 mEq/L (3.5-5.1)
[2023-06-07] MEDS: CEFTRIAXONE 1,000 MG in NA CHLORIDE 0.9% 50 ML IVPB SCH (08:23)
[2023-06-07] MEDS: ACETAMINOPHEN 500 MG TAB PO PRN (08:27)
--- NOTE | 2023-06-07 09:38 | P.PN ---
Date of Service: 06/07/23 Subjective: feeling better today, strength slowly improving reports some lower abdominal discomfort last few days hx recurrent UTIs, ~3 in the last few months - was seen and treated in office per patient. Usually doesn't get urinary symptoms with UTIs but reports increased fatigue, weakness, fever/chills no nausea / vomiting / diarrhea ROS: 10 point ROS as noted above, otherwise negative Physical Exam: GEN: Alert, oriented, NAD HEENT: Normal conjunctiva, sclera anicteric CV: Regular rate and rhythm, no edema Pulm: Nonlabored respirations on room air, clear bilaterally ABD: soft, lower abdominal tenderness/discomfort, nondistended Neuro: Normal speech, normal affect Problem List: UTI Hx recurrent UTIs, hx E. coli ESBL bacteremia (05/2022) Right nephrolithiasis IDDM2 with hyperglycemia CAD s/p PCI (2014) Chronic a-fib, s/p watchman procedure (2022) Hyperlipidemia Hypertension GERD UTI Hx recurrent UTIs, hx E. coli ESBL bacteremia (05/2022) Right nephrolithiasis Reports increased fatigue, generalized weakness, lower abdominal discomfort. States she doesn't usually get urinary symptoms with UTI hx E. coli ESBL bacteremia in 2022. CT abd (06/05): Nonobstructive right nephrolithiasis. no acute intraabdominal / pelvis findings. similar dilated right lower pole calyx with layering stones and bilateral ureteral fullness compared to past CT 05/2022 CT head, CXR negative for any acute findings. urinalysis in ED concerning for UTI; +LE, +RBC, +WBC, +bacteria given rocephin in ED continue empiric rocephin (06/06-) Follow urine culture continue IV fluids PRN analgesics / antiemetics spoke to PCP 06/06, pt with e.coli twice in last 5-6 months. with clear repeat urine cultures at end of treatment last culture grew e.coli with possible/presumed esbl but sensitive to bactrim. completed bactrim, and repeat culture at end of treatment was without growth CAD s/p PCI (2014) Chronic a-fib, s/p watchman procedure (2022) Hyperlipidemia Hypertension GERD confirm home meds, restart as appropriate IDDM2 with hyperglycemia confirm home meds accu-checks, SSI VTE: SCD for now Code: Full Dispo: Home, 1-2 days Pending urine culture results for final abx choice
--- NOTE | 2023-06-07 13:39 | EKG ---
Test Date: 2023-06-06 Test Time: 17:42:49 Formal Waiter/Waitress: ARNIE MEASUREMENT RESULTS: Intervals: Rate: 73 MI: 172 QRSD: 80 QT: 404 QTc: 445 [place]: P: 66 MI: 172 QRS: 92 T: 62 INTERPRETIVE STATEMENTS: Normal sinus rhythm Normal ECG Compared to ECG 05/18/2023 08:35:56 No significant changes Electronically Signed On 06-07-23 13:36:25 CDT by Delmer Palmer
[2023-06-08 03:54] LABS: Absolute Eosinophils 0.3 K/uL (0-0.5); Absolute Lymphocytes (CBC) 1.3 K/uL (0.7-4.9); Absolute Monocytes 0.6 K/uL (0.1-1.3); Absolute Neutrophil 2.5 K/uL (1.8-8.0); Basophils % 0.6 % (0-1.3); Eosinophils % 6.7 % (0-4.4); Hematocrit 30.5 % (36.0-45.0); Hemoglobin 9.9 g/dL (12.0-15.0); MCHC 32.5 g/dL (32.0-36.0); MCV 86.3 fL (80-100); Monocytes % 11.9 % (3.3-12.3); Neutrophils % 53.8 % (41.7-73.7); Platelets 278 thou/uL (152-406); RBC Red Blood Cell Count 3.54 M/uL (3.86-4.86); Red Cell Distribution Width 14.4 % (12.1-15.2)
[2023-06-08 04:05] LABS: Anion Gap 8.4 mEq/L (5.0-15.0); Magnesium 1.5 mg/dL (1.6-2.4); Potassium 4.4 mEq/L (3.5-5.1)
[2023-06-08] MEDS: MAGNESIUM SULFATE 1 gm IVPB 1 GM/100 ML BAG IV ONE (06:17)
[2023-06-08] MEDS ORDERED: ALPRAZOLAM 0.25 MG TABLET PO PRN (10:00)
[2023-06-08] MEDS ORDERED: NITROGLYCERIN 0.4 MG/TAB SL PRN (10:00)
[2023-06-08] MEDS: AMLODIPINE 5 MG TAB PO SCH (10:06)
[2023-06-08] MEDS: ATORVASTATIN 40 MG TAB PO SCH (10:06)
--- NOTE | 2023-06-08 15:54 | P.CNS ---
Date of Consult: 06/08/23 Reason for Consult: recurrent UTI Requesting Physician: tammy youssef Chief Complaint: Generalized weakness and fatigue History of Present Illness: Pt is a 77 yo female with a PMH of HTN, DMII, CAD, GERD and chronic UTIs who presented to the ED on 06/05 with complaints of generalized weakness. Found to have urinary tract infection, culture growing gram negative rods. She was started on empiric Rocephin. Infectious disease consulted. Allergies No Known Drug Allergies Allergy (Verified 06/07/23 00:04) Unknown Home medications list reviewed: Yes Home Medications: ALPRAZolam [Xanax*] 0.25 mg PO PRN 06/07/23 Alfuzosin HCl 10 mg PO DAILY 06/07/23 Amlodipine [Norvasc*] 5 mg PO DAILY 06/07/23 Aspirin Chewable [Aspirin Chewable*] 81 mg PO DAILY 06/07/23 Atorvastatin Calcium [Lipitor] 40 mg PO DAILY 06/07/23 Celecoxib 200 mg PO DAILY 06/07/23 Estradiol Vaginal 0.1% Cream 1 milagro VAG DAILY 06/07/23 Furosemide [Lasix*] 20 mg PO DAILY 06/07/23 Insulin Glargine,Hum.rec.anlog [Basaglar Kwikpen U-100] 30 units SQ BEDTIME 06/07/23 Lisinopril [Zestril] 20 mg PO DAILY 06/07/23 Metformin HCl [Glucophage*] 500 mg PO BID 06/07/23 Nitroglycerin [Nitrostat*] 0.4 mg SL PRN 06/07/23 Pantoprazole [Protonix Tab*] 40 mg PO DAILY 06/07/23 Sotalol HCl [Betapace*] 80 mg PO BID 06/07/23 - Past Medical/Surgical History Diabetic: Yes -: HTN -: Type 2 diabetes -: Coronary artery disease -: Nephrolithiasis -: GERD -: Hyperlipidemia -: Kidney stone -: Thyroidectomy -: Stent in LAD (03/2014) -: Cholecystectomy -: Extraction of nephrolithiasis Psychosocial/ Personal History: Patient lives at home with her daughter. - Family History Father Medical History: Heart disease, Hypertension, Diabetes, Stroke Mother Medical History: Heart disease, Diabetes Sister Medical History: Hypertension, Diabetes, Cancer Notes: breast cancer Brother Medical History: Heart disease, Stroke - Social History Smoking Status: Unknown if ever smoked Alcohol use: No CD- Drugs: No Caffeine use: Yes Place of Residence: Home Review of Systems 10-point ROS is otherwise unremarkable General: Weakness Genitourinary: Other (bladder discomfort while urinating) Physical Examination Temp Pulse Resp BP Pulse Ox 97.6 F 81 16 190/84 H 97 06/08/23 12:00 06/08/23 12:00 06/08/23 12:00 06/08/23 12:00 06/08/23 12:00 General: Alert, In no apparent distress, Oriented x3 HEENT: Atraumatic, Normocephalic Respiratory: Clear to auscultation bilaterally, Normal air movement Cardiovascular: No edema, Regular rate/rhythm Gastrointestinal: Normal bowel sounds, Soft and benign, Non-distended Integumentary: No rashes Neurological: Normal speech, Normal tone, Normal affect Laboratory Data (last 24 hrs) 06/08/23 06/08/23 03:11 03:11 WBC 4.70 Hgb 9.9 L Hct 30.5 L Plt Count 278 Sodium 141 Potassium 4.4 BUN 17 Creatinine 0.85 Glucose 161 H Magnesium 1.5 L Microbiology Data - Reviewed Imagings Data: - Reviewed Conclusions/Impression: Problem List Urinary Tract Infection, Recurrent/Chronic Diabetes Mellitus type II Gastroesophageal Reflux Disease Coronary Artery Disease Hyperlipidemia Urinary Tract Infection, Recurrent Nonobstructive Right Nephrolithiasis - Of note, patient has history of E.coli ESBL last year 05/13/2022 - CT abdomen pelvis 06/05: "No acute intra-abdominal or pelvic finding. Nonobstructive right nephrolithiasis. Other chronic findings as noted above." - urine culture 06/05: 4+ gram negative rods - Currently on Rocephin (started 06/05) No leukocytosis Afebrile Recommendations - given history of ESBL, recommend start on Meropenem 1g IV q8H. - Follow up with final urine culture result; currently gram negative rods. Will adjust antibiotics as appropriate. - Continue antibiotic therapy for 7 days from initiation of targeted antimicrobial therapy - Recommend following up with Urology as outpatient - Continue supportive care Case discussed with Thomas Marte
--- NOTE | 2023-06-08 17:08 | P.PN ---
Subjective Date of Service: 06/08/23 Chief Complaint: Generalized weakness and fatigue Patient denies any complaint today. She has been afebrile. She states that she is ambulatory. She is also eating well. Physical Examination - Vital Signs Temperature: 97.2 F Blood Pressure: 170/71 Pulse: 72 Respirations: 16 Pulse Ox (%): 97 - Studies Laboratory Data (last 24 hrs) 06/08/23 06/08/23 03:11 03:11 WBC 4.70 Hgb 9.9 L Hct 30.5 L Plt Count 278 Sodium 141 Potassium 4.4 BUN 17 Creatinine 0.85 Glucose 161 H Magnesium 1.5 L Assessment And Plan - Plan Physical Exam: GEN: Alert, oriented, NAD CV: Regular rate and rhythm, no edema Pulm: Adequate breath sounds bilaterally, clear bilaterally ABD: soft, nontender, nondistended, normal bowel sounds Neuro: Normal speech, normal affect, no focal motor deficit. Problem List: UTI Hx recurrent UTIs, hx E. coli ESBL bacteremia (05/2022) Right nephrolithiasis IDDM2 with hyperglycemia CAD s/p PCI (LAD 2014) Chronic a-fib, s/p watchman procedure (2022) Hyperlipidemia Hypertension GERD Complicated UTI Hx recurrent UTIs, hx E. coli ESBL bacteremia (05/2022) Right nephrolithiasis hx E. coli ESBL bacteremia in 2022. History of 2 episodes of E. coli infection within the last 5 [address] abd (06/05): Nonobstructive right nephrolithiasis. no acute intraabdominal / pelvis findings. similar dilated right lower pole calyx with layering stones and bilateral ureteral fullness compared to past CT 05/2022 CT head, CXR negative for any acute findings. Urine culture is growing gram-negative rods. continue empiric rocephin until urine culture result. continue IV fluids PRN analgesics / antiemetics CAD s/p PCI (LAD 2014) Chronic a-fib, s/p watchman procedure (2022) Hyperlipidemia Hypertension GERD Continue home medications. IDDM2 with hyperglycemia accu-checks, SSI VTE: SCD for now Code: Full Dispo: Home, 1-2 days Pending urine culture results for final abx choice
[2023-06-08] MEDS: SOTALOL HCL 80 MG TAB PO SCH (21:21)
[2023-06-09] MEDS: Meropenem 1,000 MG in NA CHLORIDE 0.9% 100 ML IV ONE (01:00)
[2023-06-09 04:05] LABS: Absolute Basophils 0.1 K/uL (0-0.5); Absolute Eosinophils 0.3 K/uL (0-0.5); Absolute Lymphocytes (CBC) 1.3 K/uL (0.7-4.9); Absolute Monocytes 0.6 K/uL (0.1-1.3); Absolute Neutrophil 2.5 K/uL (1.8-8.0); Basophils % 1.2 % (0-1.3); Eosinophils % 7.1 % (0-4.4); Hematocrit 31.1 % (36.0-45.0); Hemoglobin 10.6 g/dL (12.0-15.0); Lymphocytes % 27.1 % (15.3-44.8); MCH 29.2 pg (27.0-35.0); MCHC 33.9 g/dL (32.0-36.0); MCV 85.9 fL (80-100); MPV 8.5 fL (7.6-11.3); Monocytes % 12.7 % (3.3-12.3); Neutrophils % 51.9 % (41.7-73.7); Nucleated Red Blood Cells % 0.1 % (0-0); Platelets 303 thou/uL (152-406); RBC Red Blood Cell Count 3.62 M/uL (3.86-4.86); Red Cell Distribution Width 14.3 % (12.1-15.2)
[2023-06-09 04:07] LABS: Anion Gap 8.6 mEq/L (5.0-15.0); Potassium 4.6 mEq/L (3.5-5.1)
[2023-06-09] MEDS: lisinopriL 20 MG TAB PO SCH (08:56)
[2023-06-09] MEDS: ASPIRIN 81 MG CHEWABLE TABLET PO SCH (08:56)
[2023-06-09] MEDS: PANTOPRAZOLE 40MG TABLET PO SCH (08:56)
[2023-06-09] MEDS: HOME MED 1 EA UNK (Alfuzosin Hcl [Alfuzosin Hcl] 10 MG Tab.Er.24h) PO SCH (09:00)
--- NOTE | 2023-06-09 09:27 | P.PN ---
Date of Service: 06/09/23 Infectious Disease Progress Note Subjective: No acute events overnight Pt seen and examined in room. In no apparent distress. + mild bladder discomfort. otherwise no new or worsening complaints at this time. Physical Examination Temp Pulse Resp BP Pulse Ox 97.3 F 69 14 198/81 H 99 06/09/23 04:00 06/09/23 08:56 06/09/23 04:00 06/09/23 08:56 06/09/23 04:00 General: Alert, In no apparent distress, Oriented x3 HEENT: Atraumatic, Normocephalic. Corrective lenses. Respiratory: Clear to auscultation bilaterally, Normal air movement. unlabored respirations on room air. Cardiovascular: No edema, Regular rate/rhythm. Gastrointestinal: Normal bowel sounds, Soft and benign, Non-distended Integumentary: No rashes Neurological: Normal speech, Normal tone, Normal affect Laboratory Data - Reviewed Microbiology Data - Reviewed Imagings Data: - Reviewed Medications List: Reviewed Assessment and Plan Problem List Urinary Tract Infection, Recurrent/Chronic Diabetes Mellitus type II Gastroesophageal Reflux Disease Coronary Artery Disease Hyperlipidemia Urinary Tract Infection, Recurrent Nonobstructive Right Nephrolithiasis - Of note, patient has history of E.coli ESBL last year 05/13/2022 - CT abdomen pelvis 06/05: "No acute intra-abdominal or pelvic finding. Nonobstructive right nephrolithiasis. Other chronic findings as noted above." - urine culture 06/05: Escherichia coli ESBL - Rocephin (06/05-06/08) switched to Meropenem 06/08 following culture results No leukocytosis Afebrile Recommendations - Urine culture growing E.coli ESBL; Started on Meropenem 1g IV q8H - Continue antibiotic therapy for 7 days from initiation of targeted antimicrobial therapy with meropenem (06/08-06/15). - Alternative option: Ertapenem 1g IV Q24H - Recommend following up with Urology as outpatient - Continue supportive care Case discussed with Thomas Marte
[2023-06-09] MEDS: Meropenem 1,000 MG in NA CHLORIDE 0.9% 100 ML IV SCH (09:30)
--- NOTE | 2023-06-09 17:25 | RAD REPORT ---
EXAM DES[facility] 4:50 pm CLINICAL HISTORY: picc line inserted COMPARISON: Chest Single View dated 06/06/2023; Chest Single View dated 10/02/2022; Abdomen 1 View ([facility]) dated 07/15/2022; Chest Single View dated 06/29/2022 TECHNIQUE: Portable AP view of the chest. FINDINGS: Right arm PICC with catheter tip projecting over the mid SVC. The lungs are clear. No pne umothorax or effusion. The cardiomediastinal contours are unremarkable. IMPRESSION: Right arm PICC with catheter tip projecting over the mid SVC. No acute cardiopulmonary p rocess.
--- NOTE | 2023-06-09 18:29 | P.PN ---
Subjective Date of Service: 06/09/23 Chief Complaint: Generalized weakness and fatigue Patient denies any complaint today. She is also eating well. No issues overnight. Physical Examination - Vital Signs Temperature: 99.1 F Blood Pressure: 164/64 Pulse: 59 Respirations: 17 Pulse Ox (%): 95 - Studies Microbiology Data (last 24 hrs): 06/06/23 18:50 Clean Catch Urine [place] Count - Final >100,000 CFU/ML. 06/06/23 18:50 Clean Catch Urine - Final Escherichia Coli Esbl Assessment And Plan - Plan Physical Exam: GEN: Alert, oriented, NAD CV: Regular rate and rhythm, no edema Pulm: Adequate breath sounds bilaterally, clear bilaterally ABD: soft, nontender, nondistended, normal bowel sounds Neuro: Normal speech, normal affect, no focal motor deficit. Diagnosis UTI Hx recurrent UTIs, hx E. coli ESBL bacteremia (05/2022) Right nephrolithiasis IDDM2 with hyperglycemia CAD s/p PCI (LAD 2014) Chronic a-fib, s/p watchman procedure (2022) Hyperlipidemia Hypertension GERD Complicated UTI Hx recurrent UTIs, hx E. coli ESBL bacteremia (05/2022) Right nephrolithiasis hx E. coli ESBL bacteremia in 2022. History of 2 episodes of E. coli infection within the last [address] abd (06/05): Nonobstructive right nephrolithiasis. no acute intraabdominal / pelvis findings. similar dilated right lower pole calyx with layering stones and bilateral ureteral fullness compared to past CT 05/2022 CT head, CXR negative for any acute findings. Urine culture is growing ESBL E. coli Infectious disease input appreciated. ID recommends 7 days of IV meropenem or Invanz. PICC line placed for outpatient IV antibiotics. PRN analgesics / antiemetics Urology follow-up as outpatient CAD s/p PCI (LAD 2014) Chronic a-fib, s/p watchman procedure (2022) Hyperlipidemia Hypertension GERD Continue home medications. IDDM2 with hyperglycemia accu-checks, SSI VTE: SCD. Code: Full Dispo: Home with home health.
[2023-06-09] MEDS: Mupirocin NASAL 2 APPL/1 GM TUBE NAS SCH (21:19)
[2023-06-09] MEDS: MORPHINE 2 MG/ML SYR IV PRN (23:52)
[2023-06-10] MEDS: HYDROCODONE/APAP 5/325 MG TAB PO PRN (06:04)
[2023-06-10] MEDS: ENOXAPARIN 40 MG/0.4 ML SQ SCH (06:05)
[2023-06-10 07:16] VITALS: O2SAT 98
--- NOTE | 2023-06-10 07:54 | RAD REPORT ---
EXAM DESCRIPTION: US - Extrem Venous W Compress Michael - 06/10/2023 6:05 am CLINICAL HISTORY: Leg pain COMPARISON: None. TECHNIQUE: Real-time sonographic evaluation of the bilateral lower extremity deep venous systems was performed. FINDINGS: Normal compressibility, flow augmentation, phasic flow and spontaneous flow is identified in both the left and right lower extremity deep venous systems. No intraluminal filling defects seen. IMPRESSION: No DVT in either lower extremity.
[2023-06-10] MEDS: ONDANSETRON 4 MG/2 ML VIAL IV PRN (08:40)
[2023-06-10] MEDS ORDERED: ERTAPENEM SODIUM 1 GM VIAL IVPB ONE (09:00)
--- NOTE | 2023-06-10 12:17 | P.PN ---
Date of Service: 06/10/23 Infectious Disease Progress Note CC: generalized weakness Subjective: Improving. In no apparent distress at this time. Reports improvement in bladder discomfort. Denies any dysuria, frequency, urgency, hematuria. No nausea, vomiting, diarrhea or abdominal pain. Physical Examination Temp Pulse Resp BP Pulse Ox 97.9 F 59 16 134/53 L 97 06/10/23 08:00 06/10/23 08:00 06/10/23 08:00 06/10/23 08:00 06/10/23 08:00 General: Alert, In no apparent distress, Oriented x3 HEENT: Atraumatic, Normocephalic. Corrective lenses. Respiratory: Clear to auscultation bilaterally. unlabored respirations on room air. Cardiovascular: Bradycardia. No edema. Gastrointestinal: Normal bowel sounds, Soft and benign, Non-distended. Integumentary: No rashes Neurological: Normal speech, Normal tone, Normal affect Laboratory Data - Reviewed Microbiology Data - Reviewed Imagings Data: - Venous study 06/09: "No DVT in either lower extremity." Medications List: Reviewed Assessment and Plan Problem List Urinary Tract Infection, Recurrent/Chronic Diabetes Mellitus type II Gastroesophageal Reflux Disease Coronary Artery Disease Hyperlipidemia Urinary Tract Infection, Recurrent Nonobstructive Right Nephrolithiasis - Of note, patient has history of E.coli ESBL last year 05/13/2022 - CT abdomen pelvis 06/05: "No acute intra-abdominal or pelvic finding. Nonobstructive right nephrolithiasis. Other chronic findings as noted above." - urine culture 06/05: Escherichia coli ESBL - Rocephin (06/05-06/08) switched to Meropenem 06/08 following culture results No leukocytosis Afebrile Recommendations - Urine culture growing E.coli ESBL; Started on Meropenem 1g IV q8H - Continue antibiotic therapy for 7 days from initiation of targeted antimicrobial therapy with meropenem (06/08-06/15). - Alternative option: Ertapenem 1g IV Q24H - Nonobstructive right nephrolithiasis, recurrent UTI: Recommend following up with Urology as outpatient - Nutritional supplementation Case discussed with Thomas Marte
[2023-06-10 12:45] VITALS: BP 131/55; TEMP 97.6
[2023-06-10] MEDS: ERTAPENEM NA 1 GM in NA CHLORIDE 0.9% 100 ML IVPB ONE (13:43)
[2023-06-10] MEDS ORDERED: HOME MED 1 EA UNK (Celecoxib [Celecoxib] 200 MG Capsule) PO SCH (14:57)
--- NOTE | 2023-06-10 15:02 | P.DS ---
Admission Date: 06/08/23 Discharge Date: 06/10/23 Disposition: DC HOME/HOME HEALTH CARE Discharge Condition: FAIR Reason for Admission: Generalized weakness and fatigue Brief History of Present Illness: Patient is a 77-year-old female with history of hypertension, type 2 diabetes, dyslipidemia, coronary artery disease, gastroesophageal reflux disease, and chronic urinary tract infections who presented to the emergency room with gene ralized weakness and fatigue. Patient has chronic urinary tract infections, and patient follows up with Dr. Bertrand, urology. Patient's primary care provider is Dr. Velazquez. In the emergency room, patient's workup revealed a urinary tract infection. Patient stated she has been dealing with urinary tract infections quite regularly. Patient was hospitalized for further management. Hospital Course: Diagnosis UTI Hx recurrent UTIs, hx E. coli ESBL bacteremia (05/2022) Right nephrolithiasis IDDM2 with hyperglycemia CAD s/p PCI (2014) Chronic a-fib, s/p watchman procedure (2022) Hyperlipidemia Hypertension GERD Complicated UTI Hx recurrent UTIs, hx E. coli ESBL bacteremia (05/2022) Right nephrolithiasis hx E. coli ESBL bacteremia in 2022. History of 2 episodes of E. coli infection within the last [address] abd (06/05): Nonobstructive right nephrolithiasis. no acute intraabdominal / pelvis findings. similar dilated right lower pole calyx with layering stones and bilateral ureteral fullness compared to past CT 05/2022 CT head, CXR negative for any acute findings. Urine culture this hospital stay grew ESBL E. coli Patient seen by infectious disease and IV meropenem more Huan recommended PICC line placed for outpatient IV antibiotics. Patient discharged with IV Invanz. Urology follow-up as outpatient is recommended. CAD s/p PCI (2014) Chronic a-fib, s/p watchman procedure (2022) Hyperlipidemia Hypertension GERD Continued home medications. IDDM2 with hyperglycemia Managed with accu-checks, SSI. Home diabetic regimen resumed on discharge. Osteoarthritis Patient has been on Celebrex for arthritis which was held due to elevated creatinine above baseline on presentation. She reports right knee pain is likely secondary to arthritis flare. Celebrex has been resumed. Vital Signs/Physical Exam: Temp Pulse Resp BP Pulse Ox 97.6 F 58 20 131/55 L 97 06/10/23 12:00 06/10/23 12:00 06/10/23 14:31 06/10/23 12:00 06/10/23 14:31 General: Alert, In no apparent distress, Oriented x3 HEENT: Mucous membr. moist/pink Neck: Supple, JVD not distended Respiratory: Clear to auscultation bilaterally, Normal air movement Cardiovascular: No edema, Regular rate/rhythm, Normal S1 S2, No murmurs Capillary refill: <2 Seconds Gastrointestinal: Soft and benign, Non-distended Musculoskeletal: No swelling, Tenderness (Right medial knee) Integumentary: No rashes, No cyanosis Neurological: Normal strength at 5/5 x4 extr Laboratory Data at Discharge: WBC 4.80 thou/uL (4.3-10.9) 06/09/23 03:11 Hgb 10.6 g/dL (12.0-15.0) L 06/09/23 03:11 Hct 31.1 % (36.0-45.0) L 06/09/23 03:11 Plt Count 303 thou/uL (152-406) 06/09/23 03:11 Sodium 137 mEq/L (136-145) 06/09/23 03:11 Potassium 4.6 mEq/L (3.5-5.1) 06/09/23 03:11 BUN 18 mg/dL (7-18) 06/09/23 03:11 Creatinine 0.91 mg/dL (0.55-1.02) 06/09/23 03:11 Glucose 247 mg/dL (74-106) H 06/09/23 03:11 Magnesium 1.5 mg/dL (1.6-2.4) L 06/08/23 03:11 Total Bilirubin 0.3 mg/dL (0.2-1.0) 06/07/23 04:43 AST 16 U/L (15-37) 06/07/23 04:43 ALT 15 U/L (13-56) 06/07/23 04:43 Alkaline Phosphatase 60 U/L (45-117) 06/07/23 04:43 Home Medications: ALPRAZolam [Xanax*] 0.25 mg PO PRN 06/07/23 Alfuzosin HCl 10 mg PO DAILY 06/07/23 Amlodipine [Norvasc*] 5 mg PO DAILY 06/07/23 Aspirin Chewable [Aspirin Chewable*] 81 mg PO DAILY 06/07/23 Atorvastatin Calcium [Lipitor] 40 mg PO DAILY 06/07/23 Celecoxib 200 mg PO DAILY 06/07/23 Estradiol Vaginal 0.1% Cream 1 milagro VAG DAILY 06/07/23 Furosemide [Lasix*] 20 mg PO DAILY 06/07/23 Insulin Glargine,Hum.rec.anlog [Basaglar Kwikpen U-100] 30 units SQ BEDTIME 06/07/23 Lisinopril [Zestril] 20 mg PO DAILY 06/07/23 Metformin HCl [Glucophage*] 500 mg PO BID 06/07/23 Nitroglycerin [Nitrostat*] 0.4 mg SL PRN 06/07/23 Pantoprazole [Protonix Tab*] 40 mg PO DAILY 06/07/23 Sotalol HCl [Betapace*] 80 mg PO BID 06/07/23 Hydrocodone 5/APAP 325 [[place] 5/325*] 1 tab PO Q4H PRN #10 tab 06/10/23 Mupirocin Calcium [Bactroban Nasal*] 1 appl DOMINIQUE BID #1 tube 06/10/23 New Medications: Mupirocin Calcium [Bactroban Nasal*] 1 appl DOMINIQUE BID #1 tube Hydrocodone 5/APAP 325 [[place] 5/325*] 1 tab PO Q4H PRN #10 tab PRN Reason: Pain Scale 5-7 (Moderate) Diet: ADA Activity: Fall precautions Followup: Kenan Velazquez DO [Primary Care Provider] - Time spent managing pt's care (in minutes): 33
[2023-06-10] MEDS ORDERED: CELECOXIB 100 MG CAPSULE PO SCH (16:00)
== END 2023-06-10 16:36 | disposition home health service (06) | DRG 690 ==
LOC: ER 18:06 → ERHOLD 21:37 → 2ND 22:50 → OBSVTOIN 06-08 12:16
PROVIDERS: ADMIT Hospitalist; ATTEND Internal Medicine
PROC: 02HV33Z Insertion of Infusion Device into Superior Vena Cava, Percutaneous Approach (ICD-10-PCS; principal; 2023-06-09)
DX: N30.01 Acute cystitis with hematuria (principal); I48.20 Chronic atrial fibrillation, unspecified; Z16.12 Extended spectrum beta lactamase (ESBL) resistance; I10 Essential (primary) hypertension; E78.5 Hyperlipidemia, unspecified; E11.65 Type 2 diabetes mellitus with hyperglycemia; E88.810 Metabolic syndrome; N20.0 Calculus of kidney; M17.11 Unilateral primary osteoarthritis, right knee; K21.9 Gastro-esophageal reflux disease without esophagitis; I25.10 Atherosclerotic heart disease of native coronary artery without angina pectoris; I25.2 Old myocardial infarction; B96.20 Unspecified Escherichia coli [E. coli] as the cause of diseases classified elsewhere; Z79.4 Long term (current) use of insulin; Z95.5 Presence of coronary angioplasty implant and graft; Z90.49 Acquired absence of other specified parts of digestive tract; Z79.82 Long term (current) use of aspirin; Z79.84 Long term (current) use of oral hypoglycemic drugs; Z79.899 Other long term (current) drug therapy; Z87.891 Personal history of nicotine dependence
CPT/HCPCS: 36415; 70450; 71045; 74177; 80048; 80053; 80076; 81001; 83036; 83605; 83735; 84484; 85025; 87077; 87086; 87088; 87186; 93005; 93970; 96361; 96365; 96366; 96368; 99285; G0378; J0696; J1335; J1650; J2185; J2270; J2405; J3475; J7030; J7040; Q9967

== ENCOUNTER 2023-07-02 12:05 | Emergency (ER) | payer OTHER ==
[2023-07-02 13:37] LABS: Sqamous Epithelial <5 /HPF (None Seen); Urine Bacteria <20 /HPF (<20); Urine Bilirubin NEGATIVE (Negative); Urine Blood Trace (Negative); Urine Clarity Extremely Turbid (Clear); Urine Color Light-Yellow (Yellow); Urine Culture Reflex Order REFLEXED; Urine Glucose NEGATIVE (Negative); Urine Ketones NEGATIVE (Negative); Urine Microscopic Reflex YN ORDER UMIC; Urine Mucus Slight /HPF (None Seen); Urine Nitrite 2+ (Negative); Urine Protein NEGATIVE (Negative); Urine RBC <5 /HPF (None Seen); Urine Urobilinogen Normal (Normal); Urine WBC >50 /HPF (<5); Urine WBC Clump Occasional /HPF (None Seen); Urine pH 5.5 (5.0-7.0)
--- NOTE | 2023-07-02 14:00 | EDPHYS ---
Physician Documentation [facility] Name: Rena Reddy Age: 77 yrs Sex: Female : 1945 Arrival Date: 07/02/2023 Time: 12:05 Bed 24 Private MD: ED Physician Rod Garcia HPI: 07/01 14:04 This 77 yrs old Female presents to ER via Ambulatory with complaints of kb Urinary Problem. 14:04 Patient is a 77-year-old female who presents for dysuria that started yesterday. Denies kb fever, abdominal or flank pain.. Historical: - Allergies: 12:51 NKDA; aa5 - Home Meds: 14:02 alfuzosin 10 mg Oral Tablet daily [Active]; amlodipine 5 mg tablet daily [Active]; hb aspirin 81 mg Oral tablet [Active]; atorvastatin 40 mg Oral tablet daily [Active]; Azo Cranberry 250 mg Oral tablet [Active]; Calcium + D [Active]; celecoxib 100 mg Oral capsule every 12 hours [Active]; clopidogrel 75 mg Oral tablet daily [Active]; Ferrous Sulfate Oral [Active]; Ferrous Sulfate Oral [Active]; Lasix 20 mg Oral tablet daily [Active]; Macrobid 100 mg Oral capsule 2 times per day [Active]; metformin 500 mg Oral Tablet 2 times per day [Active]; lisinopril 20 mg Oral tablet daily [Active]; multivitamin Oral tablet daily [Active]; Protonix 40 mg Oral granules delayed release for susp packet daily [Active]; - PMHx: 12:51 Diabetes - NIDDM; Hyperlipidemia; Hypertension; Kidney stones; Myocardial infarction; aa5 - PSHx: 12:51 3 heart stents; Cholecystectomy; Thyroidectomy; watchman; aa5 - Immunization history:: Adult Immunizations unknown. - Infectious Disease History:: Denies. - Social history:: Smoking status: Patient denies any tobacco usage or history of. ROS: 13:54 Constitutional: As per HPI kb Exam: 13:54 Constitutional: This is a well developed, well nourished patient who is awake, alert, kb and in no acute distress. Head/Face: Normocephalic, atraumatic. ENT: Moist Mucous membranes Cardiovascular: Regular rate Respiratory: Respirations even and unlabored. No increased work of breathing. Talking in full sentences Skin: Warm, dry with normal turgor. Normal color. MS/ Extremity: Pulses equal, no cyanosis. Neurovascular intact. Full, normal range of motion. Neuro: Awake and alert, GCS 15, oriented to person, place, time, and situation. Moves all extremities. Normal gait. 13:54 Abdomen/GI: Inspection: abdomen appears normal, Bowel sounds: normal, in all quadrants, Palpation: soft, in all quadrants, mild abdominal tenderness, in the suprapubic area, Vital Signs: 12:51 BP 128 / 59; Pulse 84; Resp 18 S; Temp 98.5(O); Pulse Ox 96% on R/A; Weight 66.68 kg aa5 (R); Height 5 ft. 2 in. (R); 12:51 Body Mass Index 26.89 (66.68 kg, 157.48 cm) aa5 MDM: 13:01 Patient medically screened. kb 13:59 Data reviewed: vital signs, nurses notes. kb 14:01 Differential diagnosis: UTI, cystitis. Historians other than the Patient: Daughter/Son: jessie daughter. External Records Reviewed: Inpatient record: recent admission labs reviewed. Urine culture positive for ESBL, pt was sent home on home IV antibiotics. Organism susceptible to Bactrim so that is what I will prescribe today. Patient and daughter educated on possibility of ESBL, need for admission into the hospital for IV antibiotics and told that we will call them once the culture returns. Verbal understanding received. Counseling: I had a detailed discussion with the patient and/or guardian regarding the historical points, exam findings, and any diagnostic results supporting the discharge/admit diagnosis, lab results, the need for outpatient follow up, a family practitioner, to return to the emergency department if symptoms worsen or persist or if there are any questions or concerns that arise at home. 07/01 13:18 Order name: Urinalysis w/ reflexes; Complete Time: 13:49 kb 07/01 13:40 Order name: Urine Culture EDMS Administered Medications: 14:09 Drug: Trimethoprim-Sulfamethoxazole PO (160 mg-800 mg (DS) 1 tablet PO once Route: PO; hb 14:10 Follow up: Response: Medication administered at discharge. hb Disposition Summary: 07/02/23 14:00 Discharge Ordered Notes: Location: Home kb Condition: Stable kb Diagnosis - UTI/ Urinary tract infection, site not specified kb Followup: kb - With: Emergency Department - When: As needed - Reason: Worsening of condition Followup: kb - With: Private Physician - When: 2 - 3 days - Reason: Recheck today's complaints, Continuance of care, Re-evaluation by your physician Discharge Instructions: - Discharge Summary Sheet kb - Urinary Tract Infection, Adult, [id number] kb Forms: - Medication Reconciliation Form kb - Antibiotic Education kb - Prescription Opioid Use kb - Patient Portal Instructions kb - Leadership Thank You Letter kb Prescriptions: - Bactrim DS 800-160 mg Oral Tablet - take 1 tablet ORAL route every 12 hours for 10 days; 20 tablet; Refills: 0, kb Product Selection Permitted Signatures: Dispatcher [employer] EDMS Shraddha Martin, JONNATHAN RUEDA-Zonia Hebert, RN RN aa5 Jesica Thomas, RN RN
--- NOTE | 2023-07-02 14:00 | ER ---
Nurse's Notes [facility] Name: Rena Reddy Age: 77 yrs Sex: Female : 1945 Arrival Date: 07/02/2023 Time: 12:05 Bed 24 Private MD: Diagnosis: UTI/ Urinary tract infection, site not specified Presentation: 07/01 12:51 Chief complaint: Patient states: "It myers really bad when I pee". Pt report symptoms aa5 began yesterday. 12:51 Coronavirus screen: At this time, the client does not indicate any symptoms associated aa5 with coronavirus-19. Ebola Screen: Patient denies travel to an Ebola-affected area in the 21 days before illness onset. Initial Sepsis Screen: Does the patient meet any 2 criteria? No. Patient's initial sepsis screen is negative. Does the patient have a suspected source of infection? No. Patient's initial sepsis screen is negative. Risk Assessment: Do you want to hurt yourself or someone else? Patient reports no desire to harm self or others. Onset of symptoms was June 2023. 12:51 Acuity: JULES 4 aa5 12:51 Method Of Arrival: Ambulatory aa5 Historical: - Allergies: 12:51 NKDA; aa5 - Home Meds: 14:02 alfuzosin 10 mg Oral Tablet daily [Active]; amlodipine 5 mg tablet daily [Active]; hb aspirin 81 mg Oral tablet [Active]; atorvastatin 40 mg Oral tablet daily [Active]; Azo Cranberry 250 mg Oral tablet [Active]; Calcium + D [Active]; celecoxib 100 mg Oral capsule every 12 hours [Active]; clopidogrel 75 mg Oral tablet daily [Active]; Ferrous Sulfate Oral [Active]; Ferrous Sulfate Oral [Active]; Lasix 20 mg Oral tablet daily [Active]; Macrobid 100 mg Oral capsule 2 times per day [Active]; metformin 500 mg Oral Tablet 2 times per day [Active]; lisinopril 20 mg Oral tablet daily [Active]; multivitamin Oral tablet daily [Active]; Protonix 40 mg Oral granules delayed release for susp packet daily [Active]; - PMHx: 12:51 Diabetes - NIDDM; Hyperlipidemia; Hypertension; Kidney stones; Myocardial infarction; aa5 - PSHx: 12:51 3 heart stents; Cholecystectomy; Thyroidectomy; watchman; aa5 - Immunization history:: Adult Immunizations unknown. - Infectious Disease History:: Denies. - Social history:: Smoking status: Patient denies any tobacco usage or history of. Screenin:50 [facility] ED Fall Risk Assessment (Adult) History of falling in the last 3 months, hb including since admission No falls in past 3 months (0 pts) Confusion or Disorientation No (0 pts) Intoxicated or Sedated No (0 pts) Impaired Gait No (0 pts) Mobility Assist Device Used No (0 pt) Altered Elimination No (0 pt) Score/Fall Risk Level 0 - 2 = Low Risk Oriented to surroundings, Maintained a safe environment, Educated pt \\T\\ family on fall prevention, incl call for assistance when getting out of bed. Abuse screen: Denies threats or abuse. Denies injuries from another. Nutritional screening: No deficits noted. Tuberculosis screening: No symptoms or risk factors identified. Assessment: 13:50 General: Appears in no apparent distress. Behavior is calm, cooperative. Pain: Pain hb currently is 4 out of 10 on a pain scale. Neuro: Level of Consciousness is awake, alert, obeys commands, Oriented to person, place, time, situation. Cardiovascular: Patient's skin is warm and dry. Respiratory: Respiratory effort is even, unlabored, Respiratory pattern is regular, symmetrical. GI: No signs and/or symptoms were reported involving the gastrointestinal system. : Reports dysuria. EENT: No signs and/or symptoms were reported regarding the EENT system. Derm: Skin is pink, warm \\T\\ dry. Musculoskeletal: No signs and/or symptoms reported regarding the musculoskeletal system. Vital Signs: 12:51 BP 128 / 59; Pulse 84; Resp 18 S; Temp 98.5(O); Pulse Ox 96% on R/A; Weight 66.68 kg aa5 (R); Height 5 ft. 2 in. (R); 12:51 Body Mass Index 26.89 (66.68 kg, 157.48 cm) aa5 ED Course: 12:08 Patient arrived in ED. im 12:51 Arm band placed on. aa5 12:53 Triage completed. aa5 13:00 [facility]addha Martin [facility]C [facility] kb 13:00 Rod Garcia MD is Attending Physician. kb 13:21 Urine collected: clean catch specimen, sent to lab. aa5 13:50 Patient has correct armband on for positive identification. Provided Education on: use hb of call light. 13:50 No provider procedures requiring assistance completed. Patient did not have IV access hb during this emergency room visit. 14:09 Jesica Thomas, RN is Primary Nurse. hb Administered Medications: 14:09 Drug: Trimethoprim-Sulfamethoxazole PO (160 mg-800 mg (DS) 1 tablet PO once Route: PO; hb 14:10 Follow up: Response: Medication administered at discharge. hb Medication: 13:50 VIS not applicable for this client. hb Outcome: 14:00 Discharge ordered by . jessie 14:10 Discharged to home ambulatory, with family, 14:10 Condition: stable 14:10 Discharge instructions given to patient, family, Instructed on discharge instructions, follow up and referral plans. medication usage, Demonstrated understanding of instructions, follow-up care, medications, Prescriptions given X 1, 14:10 Patient left the ED. Signatures: Shraddha Martin, RADIATOR MECHANIC-C RADIATOR MECHANIC-Zonia Hebert, RN RN aa5 Jesica Thomas, RN RN Ofelia Jacinto
[2023-07-02] MEDS ORDERED: SMZ./TMP. 800/160 MG TABLET ONE (14:11)
[2023-07-02 14:40] VITALS: BP 128/59; TEMP 98.5; O2SAT 96
== END 2023-07-02 14:10 | disposition home or self-care (01) ==
LOC: ER 12:05
DX: N39.0 Urinary tract infection, site not specified (principal); I10 Essential (primary) hypertension; I25.2 Old myocardial infarction; Z79.82 Long term (current) use of aspirin; Z95.818 Presence of other cardiac implants and grafts
CPT/HCPCS: 81001; 87077; 87086; 87088; 87186

== ENCOUNTER 2023-08-14 10:04 | Inpatient (IN) | payer OTHER ==
[2023-08-14] MEDS ORDERED: METOPROLOL TARTRATE 5 MG/5 ML INJ IV ONE (10:23)
[2023-08-14] MEDS ORDERED: METOPROLOL XL 50 MG TAB PO ONE (10:23)
[2023-08-14] MEDS ORDERED: FAMOTIDINE 20 MG/2 ML VIAL IV ONE (10:24)
[2023-08-14 10:35] LABS: Absolute Basophils 0.1 K/uL (0-0.5); Absolute Eosinophils 0.2 K/uL (0-0.5); Absolute Lymphocytes (CBC) 1.2 K/uL (0.7-4.9); Absolute Monocytes 0.4 K/uL (0.1-1.3); Absolute Neutrophil 2.5 K/uL (1.8-8.0); Basophils % 1.2 % (0-1.3); Eosinophils % 5.6 % (0-4.4); Hematocrit 36.2 % (36.0-45.0); Hemoglobin 11.8 g/dL (12.0-15.0); Lymphocytes % 27.2 % (15.3-44.8); MCH 28.2 pg (27.0-35.0); MCHC 32.6 g/dL (32.0-36.0); MCV 86.5 fL (80-100); MPV 7.9 fL (7.6-11.3); Monocytes % 8.5 % (3.3-12.3); Neutrophils % 57.5 % (41.7-73.7); Nucleated Red Blood Cells % 0.3 % (0-0); Platelets 290 thou/uL (152-406); RBC Red Blood Cell Count 4.18 M/uL (3.86-4.86); Red Cell Distribution Width 15.6 % (12.1-15.2)
[2023-08-14 10:39] LABS: PT Prothrombin Time 11.5 SECONDS (9.5-12.5); Protime INR 1.05
[2023-08-14 10:53] LABS: Specific Gravity 1.007 (1.005-1.030); Sqamous Epithelial <5 /HPF (None Seen); Urine Bacteria <20 /HPF (<20); Urine Bilirubin NEGATIVE (Negative); Urine Blood Negative (Negative); Urine Clarity Extremely Turbid (Clear); Urine Color Colorless (Yellow); Urine Culture Reflex Order REFLEXED; Urine Glucose 3+ (Negative); Urine Ketones NEGATIVE (Negative); Urine Microscopic Reflex YN ORDER UMIC; Urine Mucus Slight /HPF (None Seen); Urine Nitrite NEGATIVE (Negative); Urine Protein NEGATIVE (Negative); Urine RBC <5 /HPF (None Seen); Urine Urobilinogen Normal (Normal)
[2023-08-14 11:06] LABS: ALT/SGPT 26 U/L (13-56); AST/SGOT 12 U/L (15-37); Albumin 3.7 g/dL (3.4-5.0); Alkaline Phosphatase 69 U/L (45-117); BUN Blood Urea Nitrogen 21 mg/dL (7-18); Bicarbonate 25 mEq/L (21-32); Bilirubin Total 0.4 mg/dL (0.2-1.0); Globulin 3.7 g/dL (2.3-3.5); Glomerular Filtration Rate 53 ml/min (=/>90); Glucose Level 298 mg/dL (74-106); Lipase 25 U/L (13-75); Magnesium 1.2 mg/dL (1.6-2.4); NT PRO-BNP 238 pg/mL (<450); Protein, Total 7.4 g/dL (6.4-8.2); Sodium Level 135 mEq/L (136-145); Troponin High Sensitivity 5.9 pg/mL (<58.9)
[2023-08-14 11:07] LABS: Bilirubin Direct < 0.2 mg/dL (0-0.2); Bilirubin Indirect, Calculated 0.2 mg/dL (0.2-0.8)
[2023-08-14] MEDS ORDERED: ENOXAPARIN 80 MG/0.8 ML SQ ONE (11:19)
[2023-08-14] MEDS ORDERED: ASPIRIN 81 MG CHEWABLE TABLET ONE (11:19)
[2023-08-14] MEDS ORDERED: MAGNESIUM SULFATE 1 gm IVPB 1 GM/100 ML BAG IV ONE (11:19)
[2023-08-14] MEDS ORDERED: CEFTRIAXONE 1000 MG/VIAL ONE (11:19)
--- NOTE | 2023-08-14 11:36 | RAD REPORT ---
EXAM DESCRIPTION: RAD - Chest Single View - 08/14/2023 11:21 am CLINICAL HISTORY: Chest pain;Dyspnea COMPARISON: Chest Single View dated 06/09/2023; Chest Single View dated 06/06/2023; Chest Single View d ated 10/02/2022; Abdomen 1 View (KUB) dated 07/15/2022 FINDINGS: Lines: None. Lungs: No evidence of edema or pneumonia. Pleural: No significant pleural effusions or pneumothorax. Cardiac: The heart size is within normal limits. Mediastinum: Within normal limits. Bones: No acute fractures. Other: None IMPRESSION: No acute cardiopulmonary disease.
--- NOTE | 2023-08-14 11:40 | ER ---
Nurse's Notes [facility] Name: Rena Reddy Age: 77 yrs Sex: Female : 1945 Arrival Date: 08/14/2023 Time: 10:04 Bed 6 Private MD: Diagnosis: Chest pain, unspecified;Hypomagnesemia;Persistent atrial fibrillation-WITH RVR;Type 2 diabetes mellitus with hyperglycemia Presentation: 08/13 10:07 Chief complaint: Patient states: chest tightness and SOB that began this morning. aa5 10:07 Coronavirus screen: shortness of breath. Ebola Screen: Patient denies travel to an [facility] Ebola-affected area in the 21 days before illness onset. Initial Sepsis Screen: Does the patient meet any 2 criteria? HR > 90 bpm. Does the patient have a suspected source of infection? No. Patient's initial sepsis screen is negative. Risk Assessment: Do you want to hurt yourself or someone else? Patient reports no desire to harm self or others. Onset of symptoms was August 14, 2023. 10:07 Acuity: JULES 2 aa5 10:07 Method Of Arrival: Ambulatory aa5 Historical: - Allergies: 10:17 NKDA; aa5 10:14 NKDA; ld1 - Home Meds: 11:12 amlodipine 5 mg tablet once [Active]; metformin 500 mg Oral tablet 2 tabs 2 times per aa5 day [Active]; meclizine 12.5 mg Oral tablet daily as needed [Active]; celecoxib 200 mg Oral capsule 2 times per day [Active]; aspirin 81 mg Oral capsule once [Active]; ferrous sulfate 325 mg (65 mg iron) Oral tablet, delayed release (enteric coated) once [Active]; lisinopril 20 mg Oral tablet once [Active]; furosemide 20 mg Oral tablet once [Active]; atorvastatin 40 mg oral tablet once [Active]; aspirin 81 mg Oral tablet, delayed release (enteric coated) once [Active]; pantoprazole 40mg oral granules delayed release for susp packet once [Active]; alprazolam 0.25 mg Oral tablet daily [Active]; 11:12 cephalexin 500 mg Oral capsule every 8 hours for UTI [Active]; aa5 - PMHx: 10:17 Diabetes - NIDDM; Hyperlipidemia; Hypertension; Kidney stones; Myocardial infarction; aa5 Atrial fibrillation; 10:14 Diabetes - NIDDM; Kidney stones; Hypertension; Hyperlipidemia; Myocardial infarction; ld1 - PSHx: 10:17 3 heart stents; Cholecystectomy; Thyroidectomy; watchman; aa5 10:14 3 heart stents; Cholecystectomy; Thyroidectomy; watchman; ld1 - Immunization history:: Adult Immunizations unknown, Adult Immunizations up to date. - Infectious Disease History:: Denies. Denies. - Social history:: Smoking status: Patient denies any tobacco usage or history of. Smoking status: Patient denies any tobacco usage or history of. - Family history:: not pertinent. Vital Signs: 10:07 BP 152 / 93; Pulse 123; Resp 19 S; Temp 97.8(TE); Pulse Ox 100% on R/A; aa5 11:11 Weight 58.97 kg; ld1 ED Course: 10:06 Patient arrived in ED. mg5 10:07 Arm band placed on Patient placed in an exam room, on a stretcher. aa5 10:13 Stefano Arnold MD is Attending Physician. abby 10:13 Sarah Uribe RN is Primary Nurse. ld1 10:14 EKG completed in triage. Results shown to MD. aa5 10:18 Triage completed. aa5 11:23 XRAY Chest (1 view) In Process Unspecified. EDMS 11:39 Kylie Anderson MD is Hospitalizing Provider. abby 13:24 Inserted saline lock: 20 gauge in right antecubital area, using aseptic technique. tl4 Blood collected. Administered Medications: 10:35 Drug: Metoprolol IVP 5 mg IVP every 5 minutes; Hold for SBP < 100 or HR < 60. x3 Route: ko1 IVP; Site: right antecubital; 10:40 Drug: Metoprolol IVP 5 mg IVP every 5 minutes; Hold for SBP < 100 or HR < 60. x3 Route: ko1 IVP; Site: right antecubital; 10:47 Drug: Metoprolol PO 50 mg PO once Route: PO; ko1 10:47 Drug: Famotidine IVP 20 mg IVP once; dilute with 10 mL 0.9% NaCl; give over 2 minutes ko1 Route: IVP; Site: right antecubital; 10:48 Drug: Metoprolol IVP 5 mg IVP every 5 minutes; Hold for SBP < 100 or HR < 60. x3 Route: ko1 IVP; Site: right antecubital; 11:26 Drug: Enoxaparin Sub-Q 1 mg/kg Sub-Q once Route: Sub-Q; Site: abdomen; ld1 11: Drug: Magnesium Sulfate IVPB 1 grams IVPB once over 1 hrs Route: IVPB; Infused Over: 1 ld1 hrs; Site: right antecubital; : Drug: Rocephin IV 1 grams IV at per protocol once; Given slow IV push per pharmacy ld1 instructions Route: IV; Rate: per protocol; Site: right antecubital; : Drug: Aspirin PO Chewable Tablet 81 mg PO once Route: PO; ld1 11:27 Drug: Magnesium Sulfate IVPB 1 grams IVPB once over 1 hrs Route: IVPB; Infused Over: 1 ld1 hrs; Site: right antecubital; 12:42 Follow up: Response: No adverse reaction; IV Status: Completed infusion tl4 Outcome: 11:40 Decision to Hospitalize by Provider. abby 14:22 Patient left the ED. aa5 Signatures: Dispatcher [employer] EDStefano De Leon MD MD cha Calderon, Audri RN RN aa5 Sarah Uribe RN RN ld1 Kaitlyn Jones RN RN ko1 Aida Yeboah mg5 Lauri Lobo RN RN tl4 Corrections: (The following items were deleted from the chart) 11:20 11:12 Home Meds: cephalexin 500 mg Oral capsule every 8 hours; Started 08/12/23; aa5 aa5 12:58 11:11 79.38 kg; ld1 ld1
--- NOTE | 2023-08-14 11:40 | EDPHYS ---
Physician Documentation [facility] Name: Rena Reddy Age: 77 yrs Sex: Female : 1945 Arrival Date: 08/14/2023 Time: 10:04 Bed 6 Private MD: MARYAM Physician Stefano Arnold HPI: 08/13 11:30 This 77 yrs old Female presents to ER via Ambulatory with complaints of Chest abby Pressure, Breathing Difficulty. 11:30 The patient or guardian reports chest pain that is located primarily in the anterior abby chest wall, bilaterally. Onset: 1 day(s) ago. The pain does not radiate. Associated signs and symptoms: Pertinent positives: lightheadedness, shortness of breath. The chest pain is described as a heaviness, squeezing. Modifying factors: The symptoms are alleviated by nothing. the symptoms are aggravated by nothing. Severity of pain: At its worst the pain was mild in the emergency department the pain is unchanged. The patient has not experienced similar symptoms in the past. Historical: - Allergies: 10:17 NKDA; aa5 10:14 NKDA; ld1 - Home Meds: 11:12 amlodipine 5 mg tablet once [Active]; metformin 500 mg Oral tablet 2 tabs 2 times per aa5 day [Active]; meclizine 12.5 mg Oral tablet daily as needed [Active]; celecoxib 200 mg Oral capsule 2 times per day [Active]; aspirin 81 mg Oral capsule once [Active]; ferrous sulfate 325 mg (65 mg iron) Oral tablet, delayed release (enteric coated) once [Active]; lisinopril 20 mg Oral tablet once [Active]; furosemide 20 mg Oral tablet once [Active]; atorvastatin 40 mg oral tablet once [Active]; aspirin 81 mg Oral tablet, delayed release (enteric coated) once [Active]; pantoprazole 40mg oral granules delayed release for susp packet once [Active]; alprazolam 0.25 mg Oral tablet daily [Active]; 11:12 cephalexin 500 mg Oral capsule every 8 hours for UTI [Active]; aa5 - PMHx: 10:17 Diabetes - NIDDM; Hyperlipidemia; Hypertension; Kidney stones; Myocardial infarction; aa5 Atrial fibrillation; 10:14 Diabetes - NIDDM; Kidney stones; Hypertension; Hyperlipidemia; Myocardial infarction; ld1 - PSHx: 10:17 3 heart stents; Cholecystectomy; Thyroidectomy; watchman; aa5 10:14 3 heart stents; Cholecystectomy; Thyroidectomy; watchman; ld1 - Immunization history:: Adult Immunizations unknown, Adult Immunizations up to date. - Infectious Disease History:: Denies. Denies. - Social history:: Smoking status: Patient denies any tobacco usage or history of. Smoking status: Patient denies any tobacco usage or history of. - Family history:: not pertinent. ROS: 11:30 Constitutional: Negative for fever, chills, and weight loss, Eyes: Negative for injury, abby pain, redness, and discharge, ENT: Negative for injury, pain, and discharge, Neck: Negative for injury, pain, and swelling, Abdomen/GI: Negative for abdominal pain, nausea, vomiting, diarrhea, and constipation, Back: Negative for injury and pain, : Negative for injury, bleeding, discharge, and swelling, MS/Extremity: Negative for injury and deformity, Skin: Negative for injury, rash, and discoloration, Neuro: Negative for headache, weakness, numbness, tingling, and seizure, 11:30 Cardiovascular: Positive for chest pain, 11:30 Respiratory: Positive for shortness of breath, Exam: 11:30 Constitutional: This is a well developed, well nourished patient who is awake, alert, abby and in no acute distress. Head/Face: Normocephalic, atraumatic. Eyes: Pupils equal round and reactive to light, extra-ocular motions intact. Lids and lashes normal. Conjunctiva and sclera are non-icteric and not injected. Cornea within normal limits. Periorbital areas with no swelling, redness, or edema. ENT: Nares patent. No nasal discharge, no septal abnormalities noted. Tympanic membranes are normal and external auditory canals are clear. Oropharynx with no redness, swelling, or masses, exudates, or evidence of obstruction, uvula midline. Mucous membranes moist. Neck: Trachea midline, no thyromegaly or masses palpated, and no cervical lymphadenopathy. Supple, full range of motion without nuchal rigidity, or vertebral point tenderness. No Meningismus. Chest/axilla: Normal chest wall appearance and motion. Nontender with no deformity. No lesions are appreciated. Respiratory: Lungs have equal breath sounds bilaterally, clear to auscultation and percussion. No rales, rhonchi or wheezes noted. No increased work of breathing, no retractions or nasal flaring. Abdomen/GI: Soft, non-tender, with normal bowel sounds. No distension or tympany. No guarding or rebound. No evidence of tenderness throughout. Back: No spinal tenderness. No costovertebral tenderness. Full range of motion. Female : Normal external genitalia. Skin: Warm, dry with normal turgor. Normal color with no rashes, no lesions, and no evidence of cellulitis. MS/ Extremity: Pulses equal, no cyanosis. Neurovascular intact. Full, normal range of motion. Neuro: Awake and alert, GCS 15, oriented to person, place, time, and situation. Cranial nerves II-XII grossly intact. Motor strength 5/5 in all extremities. Sensory grossly intact. Cerebellar exam normal. Normal gait. Psych: Awake, alert, with orientation to person, place and time. Behavior, mood, and affect are within normal limits. 11:30 Cardiovascular: Rate: tachycardic, actual rate is 123 bpm, Rhythm: regular, Pulses: Pulses are 4+ in bilateral radial, brachial, femoral, popliteal, posterior tibial and and dorsalis pedis arteries.. Heart sounds: normal, Edema: is not appreciated, JVD: is not appreciated, 11:30 ECG was reviewed by the Attending Physician. 11:30 Musculoskeletal/extremity: DVT Exam: No signs of deep vein thrombosis. no pain, no swelling, no tenderness, negative Homans' sign noted on exam, no appreciated bluish discoloration, no erythema, no increased warmth, Vital Signs: 10:07 BP 152 / 93; Pulse 123; Resp 19 S; Temp 97.8(TE); Pulse Ox 100% on R/A; aa5 11:11 Weight 58.97 kg; ld1 MDM: 10:13 Patient medically screened. abby 11:33 Differential diagnosis: abnormal EKG, acute myocardial infarction, acute pericarditis, abby anxiety, chest wall pain, congestive heart failure hiatal hernia, pancreatitis, peptic ulcer disease, pneumonia, pneumothorax, pulmonary embolus, stable angina, thoracic aortic disection, unstable angina. HEART Score: History: Slightly Suspicious (0), ECG: Non specific repolarization disturbance / LBTB / PM (1), Age: > or = 65 years (2), Risk Factors: > or = 3 Risk factors for atherosclerotic disease (2), [Hypercholesterolemia] [Hypertension] [DM] [+ Family HX] [Obesity] Troponin: < or = 1 x Normal Limit (0), Total Score = 5. The patient was given aspirin in the Emergency Department. KERLINE Risk Score: 1 - patient's age is greater or equal to 65 years, 1 - Three or more CAD risk factors, 1- Known CAD, TOTAL SCORE = 3. Data reviewed: vital signs, nurses notes, lab test result(s), EKG, radiologic studies, plain films. Consideration of Admission/Observation Escalation of care including admission/observation considered. I considered the following discharge prescriptions or medication management in the emergency department Medications were administered in the Emergency Department. See MAR. Independent interpretation of the following test(s) in the Emergency Department EKG: See my EKG interpretation above. Test considered but Not performed: Ultrasound 2 ECHO. Care significantly affected by the following chronic conditions: Diabetes, Hypertension, HIGH CHLESTEROL, KIDNEY STONES. Counseling: I had a detailed discussion with the patient and/or guardian regarding the historical points, exam findings, and any diagnostic results supporting the discharge/admit diagnosis, the presence of at least one elevated blood pressure reading (>120/80) during this emergency department visit, radiology results, the need for further work-up and treatment in the hospital. 08/13 10:20 Order name: Basic Metabolic Panel; Complete Time: :18 [facility] 08/13 10:20 Order name: CBC with Diff; Complete Time: 11:08/13 10:20 Order name: LFT's; Complete Time: 11:18 08/13 10:20 Order name: Magnesium; Complete Time: 11:18 08/13 10:20 Order name: NT PRO-BNP; Complete Time: 11:18 08/13 10:20 Order name: PT-INR; Complete Time: 11:03 08/13 10:20 Order name: Troponin HS; Complete Time: 11:18 08/13 10:20 Order name: Lipase; Complete Time: 11:18 08/13 10:20 Order name: Urinalysis w/ reflexes; Complete Time: 11:03 08/13 10:20 Order name: TSH; Complete Time: 11:18 08/13 10:55 Order name: Urine Culture EDMS 08/13 12:06 Order name: Urinalysis w/ reflexes EDKY 08/13 12:06 Order name: CBC with Automated Diff EDMS 08/13 12:06 Order name: CBC with Automated Diff EDMS 08/13 12:06 Order name: CBC with Automated Diff EDMS 08/13 12:06 Order name: CBC with Automated Diff EDMS 08/13 12:06 Order name: CBC with Automated Diff EDMS 08/13 12:06 Order name: Comprehensive Metabolic Panel EDMS 08/13 12:06 Order name: Comprehensive Metabolic Panel EDMS 08/13 12:06 Order name: Comprehensive Metabolic Panel EDMS 08/13 12:06 Order name: Comprehensive Metabolic Panel EDMS 08/13 12:06 Order name: Comprehensive Metabolic Panel EDMS 08/13 12:06 Order name: Magnesium EDMS 08/13 12:06 Order name: Magnesium EDMS 08/13 12:06 Order name: Magnesium EDMS 08/13 12:06 Order name: Magnesium EDMS 08/13 12:06 Order name: Magnesium EDMS 08/13 12:06 Order name: Phosphorus EDMS 08/13 12:06 Order name: Phosphorus EDMS 08/13 12:06 Order name: Phosphorus EDMS 08/13 12:06 Order name: Phosphorus EDMS 08/13 12:06 Order name: Phosphorus EDMS 08/13 12:06 Order name: Troponin High Sensitivity EDMS 08/13 12:06 Order name: Troponin High Sensitivity EDMS 08/13 12:06 Order name: Troponin High Sensitivity EDMS 08/13 12:06 Order name: Troponin High Sensitivity EDMS 08/13 12:48 Order name: PTH Intact EDMS 08/13 10:20 Order name: XRAY Chest (1 view); Complete Time: 12:43 [facility] 08/13 10:20 Order name: EKG; Complete Time: 10:20 [facility] 08/13 12:06 Order name: CONS Physician Consult EDMS 08/13 12:06 Order name: CONS Physician Consult EDMS 08/13 10:20 Order name: Cardiac monitoring; Complete Time: 10:48 [facility] 08/13 10:20 Order name: EKG - Nurse/Tech; Complete Time: 10:48 [facility] 08/13 10:20 Order name: IV Saline Lock; Complete Time: 10:48 [facility] 08/13 10:20 Order name: Labs collected and sent; Complete Time: 10:48 [facility] 08/13 10:20 Order name: O2 Per Protocol; Complete Time: 10:48 abby 08/13 10:20 Order name: O2 Sat Monitoring; Complete Time: 10:48 abby EC:30 Rate is 134 beats/min. Rhythm is irregularly irregular. QRS Happy is Normal. CT interval abby is normal. QRS interval is normal. QT interval is normal. No Q waves. T waves are Normal. Clinical impression: Atrial Fibrillation and No evidence of ischemia. Interpreted by me. Reviewed by me. Administered Medications: 10:35 Drug: Metoprolol IVP 5 mg IVP every 5 minutes; Hold for SBP < 100 or HR < 60. x3 Route: ko1 IVP; Site: right antecubital; 10:40 Drug: Metoprolol IVP 5 mg IVP every 5 minutes; Hold for SBP < 100 or HR < 60. x3 Route: ko1 IVP; Site: right antecubital; 10:47 Drug: Metoprolol PO 50 mg PO once Route: PO; ko1 10:47 Drug: Famotidine IVP 20 mg IVP once; dilute with 10 mL 0.9% NaCl; give over 2 minutes ko1 Route: IVP; Site: right antecubital; 10:48 Drug: Metoprolol IVP 5 mg IVP every 5 minutes; Hold for SBP < 100 or HR < 60. x3 Route: ko1 IVP; Site: right antecubital; 11:26 Drug: Enoxaparin Sub-Q 1 mg/kg Sub-Q once Route: Sub-Q; Site: abdomen; ld1 11:26 Drug: Magnesium Sulfate IVPB 1 grams IVPB once over 1 hrs Route: IVPB; Infused Over: 1 ld1 hrs; Site: right antecubital; 11:26 Drug: Rocephin IV 1 grams IV at per protocol once; Given slow IV push per pharmacy ld1 instructions Route: IV; Rate: per protocol; Site: right antecubital; 11:26 Drug: Aspirin PO Chewable Tablet 81 mg PO once Route: PO; ld1 11:27 Drug: Magnesium Sulfate IVPB 1 grams IVPB once over 1 hrs Route: IVPB; Infused Over: 1 ld1 hrs; Site: right antecubital; 12:42 Follow up: Response: No adverse reaction; IV Status: Completed infusion tl4 Disposition Summary: 08/14/23 11:40 Hospitalization Ordered Notes: Hospitalization Status: Observation abby Provider: Kylie Anderson cha Location: Telemetry/MedSurg (observation) abby Condition: Fair abby Problem: new abby Symptoms: have improved abby Bed/Room Type: Standard abby Room Assignment: 202(08/14/23 13:17) eb Diagnosis - Chest pain, unspecified abby - Hypomagnesemia abby - Persistent atrial fibrillation - WITH RVR abby - Type 2 diabetes mellitus with hyperglycemia abby Forms: - Medication Reconciliation Form abby - SBAR form abby - Leadership Thank You Letter abby Signatures: Dispatcher [employer] EDMS Stefano Arnold MD MD cha Calderon, Audri, RN RN aa5 Sahil Hedrick FNP-C CLINICAL CYTOGENETICIST-Cla1 Tamra Berg Lauren RN RN ld1 Kaitlyn Jones RN RN ko1 Lauri Lobo RN tl4 Corrections: (The following items were deleted from the chart) 10:21 10:20 BASIC METABOLIC PANEL+C.LAB.BRZ ordered. EDMS EDMS 10:21 10:20 CBC+H.LAB.BRZ ordered. EDMS EDMS 10:21 10:20 HEPATIC FUNCTION+C.LAB.BRZ ordered. EDMS EDMS 10:21 10:20 MAGNESIUM+C.LAB.BRZ ordered. EDMS EDMS 10:21 10:20 PROBNP+C.LAB.BRZ ordered. EDMS EDMS 10:21 10:20 PROTIME (+INR)+COAG.LAB.BRZ ordered. EDMS EDMS 10:21 10:20 Troponin High Sensitivity+C.LAB.BRZ ordered. EDMS EDMS 10:21 10:20 LIPASE+C.LAB.BRZ ordered. EDMS EDMS 10:21 10:20 Urinalysis+U.LAB.BRZ ordered. EDMS EDMS 10:21 10:20 THYROID STIMULAT HORMONE+C.LAB.BRZ ordered. EDMS EDMS 11:20 11:12 Home Meds: cephalexin 500 mg Oral capsule every 8 hours; Started 08/12/23; aa5 aa5 13:17 11:40 abby eb
--- NOTE | 2023-08-14 11:51 | P.HP ---
Certification for Inpatient Patient admitted to: Inpatient With expected LOS: >2 Midnights Patient will require the following post-hospital care: None Practitioner: I am a practitioner with admitting privileges, knowledge of patient current condition, hospital course, and medical plan of care. Services: Services provided to patient in accordance with Admission requirements found in Title 42 Section 412.3 of the Code of Federal Regulations <Joyce Zamora - Last Filed: 08/14/23 13:19> Patient History Date of Service: 08/14/23 Reason for admission: a. fib with RVR, chronic UTI History of Present Illness: Ms. Reddy is a well-appearing 77-year-old female with a past medical history of hypertension, hyperlipidemia, AL with 3 stents, atrial fibrillation status post Watchman procedure, diabetes, kidney stones, and hypothyroidism. She reports a 1 day history of lightheadedness and shortness of breath with mild substernal chest pain. She denies nausea, vomiting, diaphoresis. She does admit to dyspnea on exertion over the past day . She had a YULI 08/10/2022 which noted the Watchman in appropriate position with an EF of 55 to 60%. She presented to the emergency department with a heart rate of 123 bpm, irregularly irregular, with some ST depression in the lateroseptal leads. She was given metoprolol 5 mg IV every 5 minutes x 3 and metoprolol 50 mg p.o. Her rate has decreased but she remains in atrial fib. She was given Lovenox 1 mg/kg sc. Chest x-ray negative for cardiopulmonary abnormality in the emergency department. laboratory evaluation reveals a white count of 4.3 with no shift, H/H of 11.8/36.2 with platelets of 290. Sodium 135, potassium 4.0, chloride 104, bicarb 25, glucose 298, BUN 21, creatinine 1.09 with a GFR of 53, magnesium 1.2 (2 g IV piggyback magnesium given in ED), BNP 238, INR 1.05, troponin 5.9. Urinalysis in the emergency department reveals some indication of infection. Patient is asymptomatic. She was given 1 g Rocephin IV piggyback in the emergency department. We will hold antibiotics on admission until return of the urine culture secondary to chronic/complicated UTI. Of note, patient just completed course of IV therapy of Invanz 1 g daily at home for ESBL E. coli. Prior to Ms. Reddy having the Watchman procedure, she took sotalol 80 mg p.o. twice daily. She states she does not think she took Eliquis but took aspirin and Plavix daily. Current blood pressure medications include lisinopril, amlodipine, and alfuzosin. I consulted Dr. Harvey on patient's arrival and he requested restart of Sotalol 80 mg p.o. twice daily with EKG post third dose. Ms. Reddy will be admitted for evaluation and treatment of paroxysmal atrial fibrillation. Home medications list reviewed: Yes - Past Medical/Surgical History Diabetic: Yes -: HTN -: Type 2 diabetes -: Coronary artery disease -: Nephrolithiasis -: GERD -: Hyperlipidemia -: Kidney stone -: Thyroidectomy -: Stent in LAD (03/2014) -: Cholecystectomy -: Extraction of nephrolithiasis -: Watchman Psychosocial/ Personal History: Patient lives at home with her daughter. - Family History Father -: Heart disease, Hypertension, Diabetes, Stroke Mother -: Heart disease, Diabetes Sister -: Hypertension, Diabetes, Cancer Notes: breast cancer Brother -: Heart disease, Stroke - Social History Smoking Status: Never smoker Alcohol use: No CD- Drugs: No Caffeine use: Yes Place of Residence: Home <Joyce Zamora - Last Filed: 08/14/23 13:19> Date of Service: 08/14/23 <Kylie Anderson - Last Filed: 08/14/23 14:40> Allergies No Known Drug Allergies Allergy (Verified 06/07/23 00:04) Unknown Home Medications: ALPRAZolam [Xanax*] 0.25 mg PO PRN 06/07/23 Alfuzosin HCl 10 mg PO DAILY 06/07/23 Amlodipine [Norvasc*] 5 mg PO DAILY 06/07/23 Aspirin Chewable [Aspirin Chewable*] 81 mg PO DAILY 06/07/23 Atorvastatin Calcium [Lipitor] 40 mg PO DAILY 06/07/23 Celecoxib 200 mg PO DAILY 06/07/23 Estradiol Vaginal 0.1% Cream 1 milagro VAG DAILY 06/07/23 Furosemide [Lasix*] 20 mg PO DAILY 06/07/23 Insulin Glargine,Hum.rec.anlog [Basaglar Kwikpen U-100] 30 units SQ BEDTIME 06/07/23 Lisinopril [Zestril] 20 mg PO DAILY 06/07/23 Metformin HCl [Glucophage*] 500 mg PO BID 06/07/23 Nitroglycerin [Nitrostat*] 0.4 mg SL PRN 06/07/23 Pantoprazole [Protonix Tab*] 40 mg PO DAILY 06/07/23 Sotalol HCl [Betapace*] 80 mg PO BID 06/07/23 Hydrocodone 5/APAP 325 [[place]abar 5/325*] 1 tab PO Q4H PRN #10 tab 06/10/23 Mupirocin Calcium [Bactroban Nasal*] 1 appl DOMINIQUE BID #1 tube 06/10/23 Review of Systems 10-point ROS is otherwise unremarkable Cardiovascular: Chest Pain, Palpitations Neurological: As per HPI <Joyce Zamora - Last Filed: 08/14/23 13:19> Physical Examination - Physical Exam General: Alert, In no apparent distress, Oriented x3 HEENT: Atraumatic, Normocephalic Neck: Supple Respiratory: Normal air movement Cardiovascular: Irregular heart rate/rhythm Capillary refill: <2 Seconds Gastrointestinal: Soft and benign Musculoskeletal: No clubbing, No swelling Integumentary: No rashes Neurological: Normal speech, Normal tone Lymphatics: No axilla or inguinal lymphadenopathy External genitalia: Deferred Rectal: Deferred - Studies Laboratory Data (last 24 hrs) 08/14/23 08/14/23 08/14/23 10:22 10:22 10:22 WBC 4.30 Hgb 11.8 L Hct 36.2 Plt Count 290 PT 11.5 INR 1.05 Sodium 135 L Potassium 4.0 BUN 21 H Creatinine 1.09 H Glucose 298 H Magnesium 1.2 L Total Bilirubin 0.4 AST 12 L ALT 26 Alkaline Phosphatase 69 Lipase 25 <Joyce Zamora - Last Filed: 08/14/23 13:19> - Studies Laboratory Data (last 24 hrs) 08/14/23 08/14/23 08/14/23 10:22 10:22 10:22 WBC 4.30 Hgb 11.8 L Hct 36.2 Plt Count 290 PT 11.5 INR 1.05 Sodium 135 L Potassium 4.0 BUN 21 H Creatinine 1.09 H Glucose 298 H Magnesium 1.2 L Total Bilirubin 0.4 AST 12 L ALT 26 Alkaline Phosphatase 69 Lipase 25 <Kylie Anderson Flex - Last Filed: 08/14/23 14:40> Assessment and Plan - Plan Chest pain with a. fib with RVR Metoprolol x 3 iv in ED Lovenox 80mg sc BID Trend troponin Consult Cardiology - Dr. Harvey notified (orders obtained) Sotalol 80mg po BID, first dose now, EKG post third dose Hypomagnesemia Repletion begun in ED monitor and trend electrolytes HTN Lisinopril (hold) for SBP <120 Amlodipine (hold) Alfuzosin (hold) BP in ED 115/63 - initiating Sotalol HLD Atorvastatin 40mg po DM Continue basaglar 35 units daily FSBS Q 6h with mild SSI coverage Complicated/chronic UTI Urine culture Most past cultures + for E coli (ESBL) Pt just finished course of Invanz via PICC Rocephin 1 gm given in ED As pt is asymptomatic - hold antibiotics for culture result Consult ID VRE/GI protonix Lovenox Protonix - Advance Directives Does patient have a Living Will: No Does patient have a Durable POA for Healthcare: No <Joyce Zamora - Last Filed: 08/14/23 13:19> - Plan Pt seen and examined. I agree with the note by the SAVINGS COUNSELOR. Pt is a 77 yo male with past medical history of DM II, HLD, Htn, Kidney stone, A. fib and CAD s/p AL who presents with chest pain and SOB. The chest pain is located in the anterior chest wall, non-radiating and intermittent in nature with severity of 6/10. Nothing makes it worse or better. On admission, lab studies show wbc 4.3, Hgb 11.8, K 4, Cr 1.09, Glu 298, troponin 5.9, BNP 238, TSH 1.63 and mag 1.2. At bedside, pt is in NAD. A/P: Chest pain: Will r/o ACS. Troponin is 5.9. Likely due to A.fib. A.Fib with RVR: Will continue telemetry, sotalaol 80mg po BID, therapeutic lovenox and BB. Will consult Cardiology. recent Echo shows that her watchman device is intact Hypomagnesemia: Mag is 1.2 Will replete and monitor. Complicated UTI: Pt reports completed invanz for ESBL E. coli in urine. Will f/u urine cx. She already received rocephin in the ER. DM II: Continue accuchek, SSI and ADA diet. Anemia: Hgb is 11.8. Will monitor h/H. HLD: statin Hx of CAD: continue home med DVT ppx: SCD Code: full <Kylie Anderson - Last Filed: 08/14/23 14:40>
[2023-08-14] MEDS: INSULIN REGULAR (HUMAN) 100 UNIT/ML SQ SCH (12:00)
[2023-08-14] MEDS ORDERED: SODIUM CHLORIDE 0.9% 10ML INJ IV PRN (12:44)
[2023-08-14 14:34] VITALS: O2SAT 100
[2023-08-14 14:57] VITALS: BMI 27.1
[2023-08-14] MEDS: SOTALOL HCL 80 MG TAB PO SCH (15:12)
[2023-08-14] MEDS: LACTOBACILLUS/ACIDOPHILUS TAB PO SCH (15:12)
[2023-08-14] MEDS: ENOXAPARIN 60 MG/0.6 ML SQ SCH (20:15)
[2023-08-14] MEDS: ATORVASTATIN 40 MG TAB PO SCH (20:17)
[2023-08-14] MEDS ORDERED: ENOXAPARIN 100 MG/ML SYR SQ SCH (21:00)
[2023-08-14] MEDS: NITROGLYCERIN 0.4 MG/TAB SL PRN (22:59)
[2023-08-14] MEDS ORDERED: ACETAMINOPHEN 500 MG TAB PO PRN (23:03)
[2023-08-14] MEDS: HYDROCODONE/APAP 5/325 MG TAB PO ONE (23:47)
[2023-08-15] MEDS: INSULIN REGULAR (HUMAN) 100 UNIT/ML SQ SCH (07:30)
[2023-08-15] MEDS: PANTOPRAZOLE 40 MG INJ IVP SCH (08:28)
[2023-08-15] MEDS: lisinopriL 20 MG TAB PO SCH (08:28)
[2023-08-15] MEDS: INSULIN GLARGINE 100 UNIT/ML SQ SCH (08:29)
[2023-08-15] MEDS: ASPIRIN EC 81 MG TAB PO SCH (08:29)
[2023-08-15 09:03] LABS: Absolute Eosinophils 0.3 K/uL (0-0.5); Absolute Lymphocytes (CBC) 1.3 K/uL (0.7-4.9); Absolute Monocytes 0.4 K/uL (0.1-1.3); Absolute Neutrophil 2.2 K/uL (1.8-8.0); Basophils % 1.1 % (0-1.3); Eosinophils % 7.5 % (0-4.4); Hematocrit 36.4 % (36.0-45.0); Hemoglobin 11.7 g/dL (12.0-15.0); Lymphocytes % 30.4 % (15.3-44.8); MCH 28.1 pg (27.0-35.0); MCHC 32.2 g/dL (32.0-36.0); MCV 87.1 fL (80-100); MPV 8.3 fL (7.6-11.3); Monocytes % 9.9 % (3.3-12.3); Neutrophils % 51.1 % (41.7-73.7); Nucleated Red Blood Cells % 0.1 % (0-0); Platelets 306 thou/uL (152-406); RBC Red Blood Cell Count 4.18 M/uL (3.86-4.86); Red Cell Distribution Width 16.1 % (12.1-15.2)
[2023-08-15 09:27] LABS: Albumin 3.4 g/dL (3.4-5.0); Anion Gap 8.3 mEq/L (5.0-15.0); Bilirubin Total 0.3 mg/dL (0.2-1.0); Globulin 3.3 g/dL (2.3-3.5); Magnesium 1.4 mg/dL (1.6-2.4); Phosphorus 2.5 mg/dL (2.5-4.9); Potassium 4.3 mEq/L (3.5-5.1); Protein, Total 6.7 g/dL (6.4-8.2); Troponin High Sensitivity 6.2 pg/mL (<58.9)
[2023-08-15] MEDS: CEFTRIAXONE 1,000 MG in NA CHLORIDE 0.9% 50 ML IVPB SCH (11:15)
--- NOTE | 2023-08-15 15:10 | P.DS ---
Admission Date: 08/14/23 Discharge Date: 08/15/23 Reason for Admission: a. fib with RVR, chronic UTI Consultations: Dr. Harvey Brief History of Present Illness: Ms. Reddy is a well-appearing 77-year-old female with a past medical history of hypertension, hyperlipidemia, [place] with 3 stents, atrial fibrillation status post Watchman procedure, diabetes, kidney stones, and hypothyroidism. She reports a 1 day history of lightheadedness and shortness of breath with mild substernal chest pain. She denies nausea, vomiting, diaphoresis. She does admit to dyspnea on exertion over the past day . She had a YULI 08/10/2022 which noted the Watchman in appropriate position with an EF of 55 to 60%. She presented to the emergency department with a heart rate of 123 bpm, irregularly irregular, with some ST depression in the lateroseptal leads. She was given metoprolol 5 mg IV every 5 minutes x 3 and metoprolol 50 mg p.o. Her rate has decreased but she remains in atrial fib. She was given Lovenox 1 mg/kg sc. Chest x-ray negative for cardiopulmonary abnormality in the emergency department. laboratory evaluation reveals a white count of 4.3 with no shift, H/H of 11.8/36.2 with platelets of 290. Sodium 135, potassium 4.0, chloride 104, bicarb 25, glucose 298, BUN 21, creatinine 1.09 with a GFR of 53, magnesium 1.2 (2 g IV piggyback magnesium given in ED), BNP 238, INR 1.05, troponin 5.9. Urinalysis in the emergency department reveals some indication of infection. Patient is asymptomatic. She was given 1 g Rocephin IV piggyback in the emergency department. We will hold antibiotics on admission until return of the urine culture secondary to chr onic/complicated UTI. Of note, patient just completed course of IV therapy of Invanz 1 g daily at home for ESBL E. coli. Prior to Ms. Reddy having the Watchman procedure, she took sotalol 80 mg p.o. twice daily. She states she does not think she took Eliquis but took aspirin and Plavix daily. Current blood pressure medications include lisinopril, amlodipine, and alfuzosin. I consulted Dr. Harvey on patient's arrival and he requested restart of Sotalol 80 mg p.o. twice daily with EKG post third dose. Ms. Reddy will be admitted for evaluation and treatment of paroxysmal atrial fibrillation. Hospital Course: Ms. Reddy feels great this morning. At the time of my evaluation she remained in A-fib with more rate control, however around 12:00 she converted to normal sinus rhythm at 60. QTc 444. Third dose of Sotalol at 1500. Pt on based lovenox inpatient, will continue aspirin 81mg po daily until follow up with Cardiology. <Joyce Zamora - Last Filed: 08/15/23 15:15> Admission Date: 08/14/23 Discharge Date: 08/23/23 Hospital Course: Pt seen and examined. I agree with the note by the NIB ASSEMBLER. Continue home meds for other chronic medical problems. Ok to discharge pt. <Kylie Anderson - Last Filed: 08/23/23 21:55> Disposition: ROUTINE DISCHARGE Discharge Condition: GOOD Vital Signs/Physical Exam: Temp Pulse Resp BP Pulse Ox 97.4 F 62 14 130/61 97 08/15/23 12:00 08/15/23 12:00 08/15/23 12:00 08/15/23 12:00 08/15/23 12:00 General: Alert, In no apparent distress, Oriented x3 HEENT: Atraumatic, Normocephalic, PERRLA Neck: Supple Respiratory: Normal air movement Cardiovascular: Normal pulses, Irregular heart rate/rhythm Capillary refill: <2 Seconds Gastrointestinal: Soft and benign Musculoskeletal: No clubbing, No swelling Integumentary: No breakdown Neurological: Normal speech, Normal tone, Normal affect Lymphatics: No axilla or inguinal lymphadenopathy External genitalia: Deferred Rectal: Deferred Laboratory Data at Discharge: WBC 4.40 thou/uL (4.3-10.9) 08/15/23 08:42 Hgb 11.7 g/dL (12.0-15.0) L 08/15/23 08:42 Hct 36.4 % (36.0-45.0) 08/15/23 08:42 Plt Count 306 thou/uL (152-406) 08/15/23 08:42 PT 11.5 SECONDS (9.5-12.5) 08/14/23 10:22 INR 1.05 08/14/23 10:22 Sodium 135 mEq/L (136-145) L 08/15/23 08:42 Potassium 4.3 mEq/L (3.5-5.1) 08/15/23 08:42 BUN 21 mg/dL (7-18) H 08/15/23 08:42 Creatinine 0.97 mg/dL (0.55-1.02) 08/15/23 08:42 Glucose 220 mg/dL (74-106) H 08/15/23 08:42 Phosphorus 2.5 mg/dL (2.5-4.9) 08/15/23 08:42 Magnesium 1.4 mg/dL (1.6-2.4) L 08/15/23 08:42 Total Bilirubin 0.3 mg/dL (0.2-1.0) 08/15/23 08:42 AST 11 U/L (15-37) L 08/15/23 08:42 ALT 23 U/L (13-56) 08/15/23 08:42 Alkaline Phosphatase 58 U/L (45-117) 08/15/23 08:42 Lipase 25 U/L (13-75) 08/14/23 10:22 <Zamora,Joyce Ayo - Last Filed: 08/15/23 15:15> Vital Signs/Physical Exam: Temp Pulse Resp BP Pulse Ox 98 F 57 16 136/64 98 08/16/23 12:00 08/16/23 12:00 08/16/23 12:00 08/16/23 12:00 08/16/23 12:00 Laboratory Data at Discharge: WBC 5.50 thou/uL (4.3-10.9) 08/16/23 04:01 Hgb 11.0 g/dL (12.0-15.0) L 08/16/23 04:01 Hct 33.1 % (36.0-45.0) L 08/16/23 04:01 Plt Count 277 thou/uL (152-406) 08/16/23 04:01 PT 11.5 SECONDS (9.5-12.5) 08/14/23 10:22 INR 1.05 08/14/23 10:22 Sodium 136 mEq/L (136-145) 08/16/23 04:01 Potassium 4.3 mEq/L (3.5-5.1) 08/16/23 04:01 BUN 23 mg/dL (7-18) H 08/16/23 04:01 Creatinine 0.92 mg/dL (0.55-1.02) 08/16/23 04:01 Glucose 201 mg/dL (74-106) H 08/16/23 04:01 Phosphorus 2.5 mg/dL (2.5-4.9) 08/16/23 04:01 Magnesium 1.4 mg/dL (1.6-2.4) L 08/16/23 04:01 Total Bilirubin 0.3 mg/dL (0.2-1.0) 08/16/23 04:01 AST < 10 U/L (15-37) L 08/16/23 04:01 ALT 22 U/L (13-56) 08/16/23 04:01 Alkaline Phosphatase 61 U/L (45-117) 08/16/23 04:01 Lipase 25 U/L (13-75) 08/14/23 10:22 <Kylie Anderson - Last Filed: 08/23/23 21:55> Diet: AHA <Zamora,Joyce Ayo - Last Filed: 08/15/23 15:15> <Kylie Anderson - Last Filed: 08/23/23 21:55> Home Medications: ALPRAZolam [Xanax*] 0.25 mg PO DAILY 06/07/23 Amlodipine [Norvasc*] 5 mg PO DAILY 06/07/23 Aspirin Chewable [Aspirin Chewable*] 81 mg PO DAILY 06/07/23 Atorvastatin Calcium [Lipitor] 40 mg PO DAILY 06/07/23 Celecoxib 200 mg PO BID 06/07/23 Furosemide [Lasix*] 20 mg PO DAILY 06/07/23 Insulin Glargine,Hum.rec.anlog [Basaglar Kwikpen U-100] 35 units SQ BEDTIME 06/07/23 Lisinopril [Zestril] 20 mg PO DAILY 06/07/23 Metformin HCl [Glucophage*] 1,000 mg PO BID 06/07/23 Pantoprazole [Protonix Tab*] 40 mg PO DAILY 06/07/23 Cephalexin 500 mg PO Q8H 08/14/23 Ferrous Sulfate [Ferrous Sulfate*] 325 mg PO DAILY 08/14/23 Meclizine HCl 12.5 mg PO PRN PRN 08/14/23 Aspirin [Aspirin EC 81 MG] 81 mg PO DAILY #320 tab 08/15/23 Sotalol HCl [Betapace*] 80 mg PO BID 6AM 6PM #60 tab 08/15/23 Amox/Clavulanate [Augmentin 875-125 Tab] 1 each PO BID #14 tab 08/16/23 Aspirin [Aspirin EC 81 MG] 81 mg PO DAILY #30 tab 08/16/23 Sotalol HCl [Betapace*] 80 mg PO Q12H #60 tab 08/16/23 New Medications: Aspirin [Aspirin EC 81 MG] 81 mg PO DAILY #320 tab Aspirin [Aspirin EC 81 MG] 81 mg PO DAILY #30 tab Amox/Clavulanate [Augmentin 875-125 Tab] 1 each PO BID #14 tab Sotalol HCl [Betapace*] 80 mg PO BID 6AM 6PM #60 tab Sotalol HCl [Betapace*] 80 mg PO Q12H #60 tab Physician Discharge Instructions: Okay to DC IV and DC home Follow-up with primary care provider in 1 to 2 weeks Follow-up with cardiology in 1 to 2-weeks Please call the inpatient unit for any questions or concerns regarding hospital stay Return to the ER for worsening symptoms Ms. Reddy feels great this morning. At the time of my evaluation, (08/15/23) she remained in A-fib with better rate control; however, around 12:00 she converted to normal sinus rhythm at 60bpm with QTc 444. Third dose of Sotalol at 1500. She will remain on wt based Lovenox until discharge. Ms. Reddy did recently (06/2023) complete Invanz outpatient for E coli (ESBL). At present, she is asymptomatic but her UC is positive for 4+GNR. Awaiting C&S. Plan to discharge home on sotalol, Aspirin for anticoagulation, continue home statin, repeat lipid panel in 3 months Discharged home on Augmentin for UTI, Diet: [facility] Followup: Kenan Velazquez DO [Primary Care Provider] - Continue home medicines as previously prescribed GOAL: Clear understanding of disease process INSTRUCTIONS: Physician Discharge Instructions: -Follow-up with PCP in 1 to 2 weeks -Please call Dr. Beltre at [phone] if any questions regarding hospital stay -Please call nursing station at [phone] if any nursing or medication questions -Return to the emergency room if symptoms worsen Diet: ADA, low sodium Activity: Fall precautions She was placed on Keflex per Dr. Bertrand 08/14/23, so inpatient rec'd Rocephin until C&S returns. Followup: Prieto Harvey MD [ACTIVE - CAN ADMIT] - Kenan Velazquez DO [Primary Care Provider] - 1-2 Weeks
--- NOTE | 2023-08-15 15:19 | P.CNS ---
Date of Consult: 08/15/23 Chief Complaint: a. fib with RVR, chronic UTI History of Present Illness: Patient with PMH of atrial fibrillation s/p watchman placement 1 year ago presented with palpitations, found to be in AF w RVR, she denies any other cardiac symptoms, no chest pain, no syncope. Allergies No Known Drug Allergies Allergy (Verified 06/07/23 00:04) Unknown Home Medications: ALPRAZolam [Xanax*] 0.25 mg PO DAILY 06/07/23 Amlodipine [Norvasc*] 5 mg PO DAILY 06/07/23 Aspirin Chewable [Aspirin Chewable*] 81 mg PO DAILY 06/07/23 Atorvastatin Calcium [Lipitor] 40 mg PO DAILY 06/07/23 Celecoxib 200 mg PO BID 06/07/23 Furosemide [Lasix*] 20 mg PO DAILY 06/07/23 Insulin Glargine,Hum.rec.anlog [Basaglar Kwikpen U-100] 35 units SQ BEDTIME 06/07/23 Lisinopril [Zestril] 20 mg PO DAILY 06/07/23 Metformin HCl [Glucophage*] 1,000 mg PO BID 06/07/23 Pantoprazole [Protonix Tab*] 40 mg PO DAILY 06/07/23 Cephalexin 500 mg PO Q8H 08/14/23 Ferrous Sulfate [Ferrous Sulfate*] 325 mg PO DAILY 08/14/23 Meclizine HCl 12.5 mg PO PRN PRN 08/14/23 Aspirin [Aspirin EC 81 MG] 81 mg PO DAILY #320 tab 08/15/23 Sotalol HCl [Betapace*] 80 mg PO BID 6AM 6PM #60 tab 08/15/23 - Past Medical/Surgical History Diabetic: Yes -: HTN -: Type 2 diabetes -: Coronary artery disease -: Nephrolithiasis -: GERD -: Hyperlipidemia -: Kidney stone -: Thyroidectomy -: Stent in LAD (03/2014) -: Cholecystectomy -: Extraction of nephrolithiasis -: Watchman Psychosocial/ Personal History: Patient lives at home with her daughter. - Family History Father Medical History: Heart disease, Hypertension, Diabetes, Stroke Mother Medical History: Heart disease, Diabetes Sister Medical History: Hypertension, Diabetes, Cancer Notes: breast cancer Brother Medical History: Heart disease, Stroke - Social History Smoking Status: Unknown if ever smoked Alcohol use: No CD- Drugs: No Caffeine use: Yes Place of Residence: Home Review of Systems 10-point ROS is otherwise unremarkable Physical Examination Temp Pulse Resp BP Pulse Ox 97.4 F 62 14 130/61 97 08/15/23 12:00 08/15/23 12:00 08/15/23 12:00 08/15/23 12:00 08/15/23 12:00 General: Alert, In no apparent distress HEENT: Atraumatic, PERRLA, Mucous membr. moist/pink, EOMI, Sclerae nonicteric Neck: Supple, 2+ carotid pulse no bruit, No LAD, Without JVD or thyroid abnormality Respiratory: Clear to auscultation bilaterally, Normal air movement Cardiovascular: Regular rate/rhythm, Normal S1 S2 Gastrointestinal: Normal bowel sounds, No tenderness Musculoskeletal: No tenderness Integumentary: No rashes Neurological: Normal gait, Normal speech, Normal tone, Normal affect Lymphatics: No axilla or inguinal lymphadenopathy - Problems (1) Atrial fibrillation Current Visit: Yes Status: Acute Plan: Patient was started on Sotalol and responded well to 80 mg po BID, repeated EKG was reviewed with normal QTc. ASA for anticoagulation as patient is s/p watchman procedure. (2) Hyperlipidemia Current Visit: No Status: Chronic Plan: continue home statin, lipid panel in 3 months. Qualifiers: Hyperlipidemia type: unspecified Qualified Code(s): E78.5 - Hyperlipidemia, unspecified (3) Hypertension Current Visit: No Status: Chronic Plan: continue home medications Qualifiers: Hypertension type: primary hypertension Qualified Code(s): I10 - Essential (primary) hypertension
--- NOTE | 2023-08-15 15:30 | EKG ---
Test Date: 2023-08-14 Test Time: 10:13:08 Client Support Administrator: DERRELL MEASUREMENT RESULTS: Intervals: Rate: 134 [place]: QRSD: 78 QT: 316 QTc: 471 [place]: P: [place]: QRS: 81 T: 64 INTERPRETIVE STATEMENTS: Atrial fibrillation with rapid ventricular response Nonspecific ST abnormality Abnormal ECG Compared to ECG 06/06/2023 17:42:49 ST (T wave) deviation now present Sinus rhythm no longer present Electronically Signed On 08-15-23 15:29:10 CDT by Prieto Harvey
--- NOTE | 2023-08-15 19:01 | CON ---
History Of Present Illness: This is a 77-year-old female, very pleasant to talk to, lying in bed, co rodolfo in with urinary tract infection. Urine cultures are growing more than 100,000 colonies/microlit er of 4+ gram-negative rods. The patient has significant past medical history of hypertension, hyper lipidemia, myocardial infarction with stent placement, atrial fibrillation, status post Watchman proc edure, diabetes mellitus, kidney stones, hypothyroidism, started to have lightheadedness and shortnes s of breath and chest discomfort 1 day prior to admission. The patient also had nausea, no vomiting. She is much better today. She had a transesophageal echocardiogram done on August 10, 2022, which not ed that Watchman is appropriate position with the ejection fraction of 55% to 60%. Denies any chest pain, abdominal pain, constipation, or diarrhea. Past Medical History: As per HPI. Social History: Nonsmoker, nondrinker. Family History: Noncontributory. Medications: Rocephin. See MAR for other medications. Allergies: NO KNOWN DRUG ALLERGIES. Review of Systems: A 10-point review was performed. Physical Examination: General: This is a 77-year-old female, lying in bed, not in any acute cardiopulmonary distress. Vital Signs: Temperature 97, pulse 62, respiration 14, blood pressure 130/61. HEENT: Unremarkable. Neck: Supple. Lungs: Basal crackles. Heart: S1, S2. Regular. Abdomen: Soft, nontender. Bowel sounds present. Extremities: No edema. Laboratory Data: Shows WBC 4.4, hemoglobin 11.7, platelets are 306. Chemistry shows a BUN of 21, cr eatinine 0.6, glucose is 220. Urinalysis shows wbc's 10-20 with leukocyte esterase 500 and urine cla rity was turbid. Urine cultures are growing gram-negative rods with more than 100,000 colonies per m L. Assessment And Plan: This is a 77-year-old female with multiple medical problems, coming in with dys pnea and chest discomfort. Urine cultures are positive for gram-negative rods, most likely E coli se psis, large pseudomonas. Currently, patient is on Rocephin. Chest discomfort has subsided. Diabete s mellitus, anemia of chronic disease. Continue antibiotic for 5-7 days. Consider evaluation by uro logist. We will follow the patient as needed. Thank you Dr. Anderson for consult. NF/MODL Voice ID: [id number] Report ID: [id number]
[2023-08-16 05:09] LABS: Absolute Basophils 0.1 K/uL (0-0.5); Absolute Eosinophils 0.4 K/uL (0-0.5); Absolute Lymphocytes (CBC) 1.8 K/uL (0.7-4.9); Absolute Monocytes 0.7 K/uL (0.1-1.3); Absolute Neutrophil 2.5 K/uL (1.8-8.0); Basophils % 1.1 % (0-1.3); Eosinophils % 7.6 % (0-4.4); Hematocrit 33.1 % (36.0-45.0); Lymphocytes % 32.9 % (15.3-44.8); MCH 28.8 pg (27.0-35.0); MCHC 33.2 g/dL (32.0-36.0); MCV 86.7 fL (80-100); MPV 8.8 fL (7.6-11.3); Monocytes % 12.1 % (3.3-12.3); Neutrophils % 46.3 % (41.7-73.7); Nucleated Red Blood Cells % 0.1 % (0-0); Platelets 277 thou/uL (152-406); RBC Red Blood Cell Count 3.82 M/uL (3.86-4.86); Red Cell Distribution Width 15.6 % (12.1-15.2)
[2023-08-16 05:37] LABS: ALT/SGPT 22 U/L (13-56); Albumin 3.3 g/dL (3.4-5.0); Albumin/Globulin Ratio 0.9 (1.1-1.8); Alkaline Phosphatase 61 U/L (45-117); Anion Gap 7.3 mEq/L (5.0-15.0); BUN Blood Urea Nitrogen 23 mg/dL (7-18); Bicarbonate 27 mEq/L (21-32); Bilirubin Total 0.3 mg/dL (0.2-1.0); Globulin 3.5 g/dL (2.3-3.5); Glomerular Filtration Rate 65 ml/min (=/>90); Glucose Level 201 mg/dL (74-106); Magnesium 1.4 mg/dL (1.6-2.4); Phosphorus 2.5 mg/dL (2.5-4.9); Potassium 4.3 mEq/L (3.5-5.1); Protein, Total 6.8 g/dL (6.4-8.2); Sodium Level 136 mEq/L (136-145)
[2023-08-16 05:38] LABS: AST/SGOT < 10 U/L (15-37)
[2023-08-16] MEDS: Magnesium Sulfate 2gm IVPB 2 G/50 ML BAG IV ONE (06:43)
--- NOTE | 2023-08-16 07:45 | P.DS ---
Admission Date: 08/14/23 Discharge Date: 08/16/23 Disposition: ROUTINE DISCHARGE Discharge Condition: GOOD Reason for Admission: a. fib with RVR, chronic UTI Brief History of Present Illness: Brief History of Present Illness: Ms. Reddy is a well-appearing 77-year-old female with a past medical history of hypertension, hyperlipidemia, [place] with 3 stents, atrial fibrillation status post Watchman procedure, diabetes, kidney stones, and hypothyroidism. She reports a 1 day history of lightheadedness and shortness of breath with mild substernal chest pain. She denies nausea, vomiting, diaphoresis. She does admit to dyspnea on exertion over the past day . She had a YULI 08/10/2022 which noted the Watchman in appropriate position with an EF of 55 to 60%. She presented to the emergency department with a heart rate of 123 bpm, irregularly irregular, with some ST depression in the lateroseptal leads. She was given metoprolol 5 mg IV every 5 minutes x 3 and metoprolol 50 mg p.o. Her rate has decreased but she remains in atrial fib. She was given Lovenox 1 mg/kg sc. Chest x-ray negative for cardiopulmonary abnormality in the emergency department. laboratory evaluation reveals a white count of 4.3 with no shift, H/H of 11.8/36.2 with platelets of 290. Sodium 135, potassium 4.0, chloride 104, bicarb 25, glucose 298, BUN 21, creatinine 1.09 with a GFR of 53, magnesium 1.2 (2 g IV piggyback magnesium given in ED), BNP 238, INR 1.05, troponin 5.9. Urinalysis in the emergency department reveals some indication of infection. Patient is asymptomatic. She was given 1 g Rocephin IV piggyback in the emergency department. We will hold antibiotics on admission until return of the urine culture secondary to chronic/complicated UTI. Of note, patient just completed course of IV therapy of Invanz 1 g daily at home for ESBL E. coli. Prior to Ms. Reddy having the Watchman procedure, she took sotalol 80 mg p.o. twice daily. She states she does not think she took Eliquis but took aspirin and Plavix daily. Current blood pressure medications include lisinopril, amlodipine, and alfuzosin. I consulted Dr. Harvey on patient's arrival and he requested restart of Sotalol 80 mg p.o. twice daily with EKG post third dose. Ms. Reddy will be admitted for evaluation and treatment of paroxysmal atrial fibrillation. Hospital Course: Ms. Reddy feels great this morning. At the time of my evaluation she remained in A-fib with more rate control, however around 12:00 she converted to normal sinus rhythm at 60. QTc 444. Third dose of Sotalol at 1500. Pt on wt based loven ox inpatient, will continue aspirin 81mg po daily until follow up with Cardiology. General: Alert, In no apparent distress, Oriented x3 HEENT: Atraumatic, Normocephalic, PERRLA Neck: Supple Respiratory: Normal air movement Cardiovascular: Normal pulses, Irregular heart rate/rhythm Capillary refill: <2 Seconds Gastrointestinal: Soft and benign Musculoskeletal: No clubbing, No swelling Integumentary: No breakdown Neurological: Normal speech, Normal tone, Normal affect Lymphatics: No axilla or inguinal lymphadenopathy Hospital Course: Ms. Reddy is a well-appearing 77-year-old female with a past medical history of hypertension, hyperlipidemia, [place] with 3 stents, atrial fibrillation status post Watchman procedure, diabetes, kidney stones, and hypothyroidism. She reports a 1 day history of lightheadedness and shortness of breath with mild substernal chest pain. Was noted to have atrial fibrillation uncontrolled rate of 123,, was treated with metoprolol IV, p.o., started on sotalol, follow-up with cardiology after discharge Ms. Reddy feels great this morning. At the time of my evaluation, (08/15/23) she remained in A-fib with better rate control; however, around 12:00 she converted to normal sinus rhythm at 60bpm with QTc 444. Third dose of Sotalol at 1500. She will remain on wt based Lovenox until discharge. Ms. Reddy did recently (06/2023) complete Invanz outpatient for E coli (ESBL). At present, she is asymptomatic but her UC is positive for 4+GNR. Awaiting C&S. She was placed on Keflex per Dr. Bertrand 08/14/23, so inpatient rec'd Rocephin until C&S returns. Plan to discharge home on sotalol, Aspirin for anticoagulation, continue home statin, repeat lipid panel in 3 months Discharged home on Augmentin for UTI Diet: AHA Followup: Kenan Velazquez DO [Primary Care Provider] - Follow-up with cardiology after discharge Continue home medicines as previously prescribed GOAL: Clear understanding of disease process INSTRUCTIONS: Physician Discharge Instructions: -Follow-up with PCP in 1 to 2 weeks -Please call Dr. Beltre at [phone] if any questions regarding hospital stay -Please call nursing station at [phone] if any nursing or medication questions -Return to the emergency room if symptoms worsen Diet: ADA, low sodium Activity: Fall precautions Vital Signs/Physical Exam: Temp Pulse Resp BP Pulse Ox 97.5 F 57 16 127/63 96 08/16/23 05:00 08/16/23 05:00 08/16/23 05:00 08/16/23 05:00 08/16/23 05:00 Laboratory Data at Discharge: WBC 5.50 thou/uL (4.3-10.9) 08/16/23 04:01 Hgb 11.0 g/dL (12.0-15.0) L 08/16/23 04:01 Hct 33.1 % (36.0-45.0) L 08/16/23 04:01 Plt Count 277 thou/uL (152-406) 08/16/23 04:01 PT 11.5 SECONDS (9.5-12.5) 08/14/23 10:22 INR 1.05 08/14/23 10:22 Sodium 136 mEq/L (136-145) 08/16/23 04:01 Potassium 4.3 mEq/L (3.5-5.1) 08/16/23 04:01 BUN 23 mg/dL (7-18) H 08/16/23 04:01 Creatinine 0.92 mg/dL (0.55-1.02) 08/16/23 04:01 Glucose 201 mg/dL (74-106) H 08/16/23 04:01 Phosphorus 2.5 mg/dL (2.5-4.9) 08/16/23 04:01 Magnesium 1.4 mg/dL (1.6-2.4) L 08/16/23 04:01 Total Bilirubin 0.3 mg/dL (0.2-1.0) 08/16/23 04:01 AST < 10 U/L (15-37) L 08/16/23 04:01 ALT 22 U/L (13-56) 08/16/23 04:01 Alkaline Phosphatase 61 U/L (45-117) 08/16/23 04:01 Lipase 25 U/L (13-75) 08/14/23 10:22 Home Medications: ALPRAZolam [Xanax*] 0.25 mg PO DAILY 06/07/23 Amlodipine [Norvasc*] 5 mg PO DAILY 06/07/23 Aspirin Chewable [Aspirin Chewable*] 81 mg PO DAILY 06/07/23 Atorvastatin Calcium [Lipitor] 40 mg PO DAILY 06/07/23 Celecoxib 200 mg PO BID 06/07/23 Furosemide [Lasix*] 20 mg PO DAILY 06/07/23 Insulin Glargine,Hum.rec.anlog [Basaglar Kwikpen U-100] 35 units SQ BEDTIME 06/07/23 Lisinopril [Zestril] 20 mg PO DAILY 06/07/23 Metformin HCl [Glucophage*] 1,000 mg PO BID 06/07/23 Pantoprazole [Protonix Tab*] 40 mg PO DAILY 06/07/23 Cephalexin 500 mg PO Q8H 08/14/23 Ferrous Sulfate [Ferrous Sulfate*] 325 mg PO DAILY 08/14/23 Meclizine HCl 12.5 mg PO PRN PRN 08/14/23 Aspirin [Aspirin EC 81 MG] 81 mg PO DAILY #320 tab 08/15/23 Sotalol HCl [Betapace*] 80 mg PO BID 6AM 6PM #60 tab 08/15/23 Amox/Clavulanate [Augmentin 875-125 Tab] 1 each PO BID #14 tab 08/16/23 Aspirin [Aspirin EC 81 MG] 81 mg PO DAILY #30 tab 08/16/23 Sotalol HCl [Betapace*] 80 mg PO Q12H #60 tab 08/16/23 New Medications: Aspirin [Aspirin EC 81 MG] 81 mg PO DAILY #320 tab Aspirin [Aspirin EC 81 MG] 81 mg PO DAILY #30 tab Amox/Clavulanate [Augmentin 875-125 Tab] 1 each PO BID #14 tab Sotalol HCl [Betapace*] 80 mg PO BID 6AM 6PM #60 tab Sotalol HCl [Betapace*] 80 mg PO Q12H #60 tab Physician Discharge Instructions: Okay to DC IV and DC home Follow-up with primary care provider in 1 to 2 weeks Follow-up with cardiology in 1 to 2-weeks Please call the inpatient unit for any questions or concerns regarding hospital stay Return to the ER for worsening symptoms Ms. Reddy feels great this morning. At the time of my evaluation, (08/15/23) she remained in A-fib with better rate control; however, around 12:00 she converted to normal sinus rhythm at 60bpm with QTc 444. Third dose of Sotalol at 1500. She will remain on wt based Lovenox until discharge. Ms. Reddy did recently (06/2023) complete Invanz outpatient for E coli (ESBL). At present, she is asymptomatic but her UC is positive for 4+GNR. Awaiting C&S. Plan to discharge home on sotalol, Aspirin for anticoagulation, continue home statin, repeat lipid panel in 3 months Discharged home on Augmentin for UTI, Diet: AHA Followup: Kenan Velazquez DO [Primary Care Provider] - Continue home medicines as previously prescribed GOAL: Clear understanding of disease process INSTRUCTIONS: Physician Discharge Instructions: -Follow-up with PCP in 1 to 2 weeks -Please call Dr. Beltre at [phone] if any questions regarding hospital stay -Please call nursing station at [phone] if any nursing or medication q uestions -Return to the emergency room if symptoms worsen Diet: ADA, low sodium Activity: Fall precautions She was placed on Keflex per Dr. Bertrand 08/14/23, so inpatient rec'd Rocephin until C&S returns. Diet: AHA Followup: Prieto Harvey MD [ACTIVE - CAN ADMIT] - Kenan Velazquez DO [Primary Care Provider] - 1-2 Weeks Time spent managing pt's care (in minutes): 55
--- NOTE | 2023-08-16 10:43 | P.PN ---
Subjective Date of Service: 08/16/23 Chief Complaint: a. fib with RVR, chronic UTI Subjective: No new changes, No C/O voiced, Tolerating diet, Ambulating, Improving Review of Systems 10-point ROS is otherwise unremarkable Physical Examination - Vital Signs Temperature: 97.2 F Blood Pressure: 143/65 Pulse: 56 Respirations: 16 Pulse Ox (%): 97 - Physical Exam General: Alert, In no apparent distress HEENT: Atraumatic, PERRLA, EOMI Neck: Supple, JVD not distended Respiratory: Clear to auscultation bilaterally, Normal air movement Cardiovascular: Regular rate/rhythm, Normal S1 S2 Gastrointestinal: Normal bowel sounds, No tenderness Musculoskeletal: No tenderness Integumentary: No rashes Neurological: Normal speech, Normal tone, Normal affect Lymphatics: No axilla or inguinal lymphadenopathy - Studies Medications List Reviewed: Yes Assessment And Plan - Current Problems (Diagnosis) (1) Atrial fibrillation Current Visit: Yes Status: Acute Plan: Patient was started on Sotalol and responded well to 80 mg po BID, repeated EKG was reviewed with normal QTc. ASA for anticoagulation as patient is s/p watchman procedure. (2) Hyperlipidemia Current Visit: No Status: Chronic Plan: continue home statin, lipid panel in 3 months. Qualifiers: Hyperlipidemia type: unspecified Qualified Code(s): E78.5 - Hyperlipidemia, unspecified (3) Hypertension Current Visit: No Status: Chronic Plan: continue home medications Qualifiers: Hypertension type: primary hypertension Qualified Code(s): I10 - Essential (primary) hypertension
--- NOTE | 2023-08-16 12:03 | EKG ---
Test Date: 2023-08-15 Test Time: 18:11:55 [employer] Operator: ELIDIA MEASUREMENT RESULTS: Intervals: Rate: 62 MS: 166 QRSD: 82 QT: 446 QTc: 452 Tell: P: 49 MS: 166 QRS: 69 T: 90 INTERPRETIVE STATEMENTS: Normal sinus rhythm Normal ECG Compared to ECG 08/15/2023 13:23:56 No significant changes Electronically Signed On 08-16-23 12:02:34 CDT by Prieto Harvey
--- NOTE | 2023-08-16 12:04 | EKG ---
Test Date: 2023-08-15 Test Time: 13:23:56 Doctor Of Dental Medicine: LEROY Mccord MEASUREMENT RESULTS: Intervals: Rate: 61 OR: 174 QRSD: 76 QT: 442 QTc: 444 Sheldon: P: 50 OR: 174 QRS: 68 T: 94 INTERPRETIVE STATEMENTS: Normal sinus rhythm Normal ECG Compared to ECG 08/14/2023 23:17:02 Atrial fibrillation no longer present Right-axis deviation no longer present Electronically Signed On 08-16-23 12:03:04 CDT by Prieto Harvey
--- NOTE | 2023-08-16 12:05 | EKG ---
Test Date: 2023-08-14 Test Time: 23:17:02 Supervisor Taping: [id number] MEASUREMENT RESULTS: Intervals: Rate: 85 TX: QRSD: 84 QT: 394 QTc: 468 Barton: P: TX: QRS: 96 T: 67 INTERPRETIVE STATEMENTS: Atrial fibrillation Rightward axis RSR' or QR pattern in V1 suggests right ventricular conduction delay Abnormal ECG Compared to ECG 08/14/2023 10:13:08 Right-axis deviation now present RSR' in V1 or V2 now present ST (T wave) deviation no longer present Electronically Signed On 08-16-23 12:03:27 CDT by Prieto Harvey
[2023-08-16 12:33] VITALS: BP 136/64; TEMP 98
--- NOTE | 2023-08-16 16:20 | PN ---
Subjective: The patient is lying in bed. Denies any headache, nausea, vomiting, chest pain, abdomin al pain, constipation, or diarrhea. Objective: Vital Signs: Reviewed. Lungs: Basal crackles/ Heart: S1, S2. Regular. Abdomen: Soft, nontender. Bowel sounds present. Extremity: No edema. Laboratory Data: Reviewed. Micro data shows Klebsiella pneumoniae sensitive to Augmentin, gentamici n, cefazolin, quinolones, Rocephin, tobramycin, cefepime, and meropenem. The patient is currently on Rocephin, can be switched to Augmentin prior to discharge the patient for 5 days. We will follow the patient as needed. Needs to see follow up with urologist. Urinary trac t infection. Anemia of chronic disease. Recurrent urinary tract infection. Anemia of chronic disea se. Continue supportive care. We will follow the patient as needed. NF/MODL Voice ID: [id number] Report ID: [id number]
== END 2023-08-16 13:19 | disposition home or self-care (01) | DRG 690 ==
LOC: ER 10:04 → ERHOLD 11:54 → 2ND 13:24
PROVIDERS: ADMIT Hospitalist; ATTEND Hospitalist
DX: N39.0 Urinary tract infection, site not specified (principal); I48.19 Other persistent atrial fibrillation; E11.65 Type 2 diabetes mellitus with hyperglycemia; E03.9 Hypothyroidism, unspecified; E83.42 Hypomagnesemia; E78.00 Pure hypercholesterolemia, unspecified; K21.9 Gastro-esophageal reflux disease without esophagitis; D63.8 Anemia in other chronic diseases classified elsewhere; I25.10 Atherosclerotic heart disease of native coronary artery without angina pectoris; B96.1 Klebsiella pneumoniae [K. pneumoniae] as the cause of diseases classified elsewhere; I25.2 Old myocardial infarction; Z79.4 Long term (current) use of insulin; Z95.5 Presence of coronary angioplasty implant and graft; Z79.82 Long term (current) use of aspirin; Z79.84 Long term (current) use of oral hypoglycemic drugs; Z79.01 Long term (current) use of anticoagulants; Z90.49 Acquired absence of other specified parts of digestive tract; Z79.899 Other long term (current) drug therapy
CPT/HCPCS: 36415; 71045; 80048; 80053; 80076; 81001; 82947; 83690; 83735; 83880; 83970; 84100; 84443; 84484; 85025; 85610; 87077; 87086; 87088; 87186; 93005; 96365; 96372; 96375; 99284; C9113; J0696; J1650; J3475

== ENCOUNTER 2023-09-12 12:08 | Emergency (ER) | payer OTHER ==
[2023-09-12 13:06] LABS: Specific Gravity 1.007 (1.005-1.030); Sqamous Epithelial <5 /HPF (None Seen); Urine Bacteria <20 /HPF (<20); Urine Bilirubin NEGATIVE (Negative); Urine Blood 1+ (Negative); Urine Clarity Extremely Turbid (Clear); Urine Color Colorless (Yellow); Urine Crystals Unidentified Few /HPF (None Seen); Urine Culture Reflex Order REFLEXED; Urine Glucose NEGATIVE (Negative); Urine Ketones NEGATIVE (Negative); Urine Microscopic Reflex YN ORDER UMIC; Urine Mucus Slight /HPF (None Seen); Urine Nitrite NEGATIVE (Negative); Urine Protein NEGATIVE (Negative); Urine RBC <5 /HPF (None Seen); Urine Urobilinogen Normal (Normal); Urine WBC >50 /HPF (<5); Urine WBC Clump Occasional /HPF (None Seen)
--- NOTE | 2023-09-12 13:13 | ER ---
Nurse's Notes [facility] Name: Rena Reddy Age: 78 yrs Sex: Female : 1945 Arrival Date: 09/12/2023 Time: 12:08 Bed 10 Private MD: Diagnosis: UTI/ Urinary tract infection, site not specified Presentation: 09/11 12:17 Chief complaint: Patient states: Painful urination, urinary frequency, low back and ph suprapubic pain, and nausea that started last night. Coronavirus screen: Vaccine status: Patient reports being unvaccinated. Ebola Screen: No symptoms or risks identified at this time. Initial Sepsis Screen: Does the patient meet any 2 criteria? No. Patient's initial sepsis screen is negative. Does the patient have a suspected source of infection? No. Patient's initial sepsis screen is negative. Risk Assessment: Do you want to hurt yourself or someone else? Patient reports no desire to harm self or others. Onset of symptoms. 12:17 Method Of Arrival: Ambulatory ph 12:52 Acuity: JULES 4 ph Historical: - Allergies: 12:52 NKDA; ph - PMHx: 12:52 Atrial fibrillation; Diabetes - NIDDM; Hyperlipidemia; Kidney stones; Hypertension; ph Myocardial infarction; - PSHx: 12:52 3 heart stents; Cholecystectomy; Thyroidectomy; watchman; ph - Immunization history:: Adult Immunizations unknown. - Infectious Disease History:: Denies. - Social history:: Smoking status: Patient denies any tobacco usage or history of. Screenin:41 [facility] ED Fall Risk Assessment (Adult) History of falling in the last 3 months, tl4 including since admission No falls in past 3 months (0 pts) Confusion or Disorientation No (0 pts) Intoxicated or Sedated No (0 pts) Impaired Gait No (0 pts) Mobility Assist Device Used No (0 pt) Altered Elimination No (0 pt) Score/Fall Risk Level 0 - 2 = Low Risk Oriented to surroundings, Maintained a safe environment, Educated pt \T\ family on fall prevention, incl call for assistance when getting out of bed, Assessed \T\ reinforced patient's understanding of fall precautions. Abuse screen: Denies threats or abuse. Denies injuries from another. Nutritional screening: No deficits noted. Tuberculosis screening: No symptoms or risk factors identified. Assessment: 13:00 General: Appears in no apparent distress. Behavior is calm, cooperative. Pain: tl4 Complains of pain in abdomen. Neuro: Level of Consciousness is awake, alert, obeys commands, Oriented to person, place, time, situation. Cardiovascular: Capillary refill < 3 seconds Patient's skin is warm and dry. Respiratory: Airway is patent Respiratory effort is even, unlabored, Respiratory pattern is regular, symmetrical, Breath sounds are clear bilaterally. GI: Reports lower abdominal pain. : Reports burning with urination, urgency, urinary frequency. EENT: No signs and/or symptoms were reported regarding the EENT system. Derm: No signs and/or symptoms reported regarding the dermatologic system. Musculoskeletal: No signs and/or symptoms reported regarding the musculoskeletal system. 16:49 Reassessment: Daughter Matilda [phone]. hb Vital Signs: 12:52 BP 171 / 86; Pulse 64; Resp 18; Temp 98; Pulse Ox 100% on R/A; ph 13:42 BP 154 / 75; Pulse 60; Resp 16; Temp 97.9(O); Pulse Ox 97% on R/A; tl4 ED Course: 12:11 Patient arrived in ED. im 12:11 Shraddha Martin FNP-C [facility]. kb 12:11 Rajiv Dietz MD is Attending Physician. kb 12:19 Arm band placed on. ph 12:39 Lauri Lobo, RN is Primary Nurse. tl4 12:52 Triage completed. ph 13:08 Urinalysis w/ reflexes Sent. tl4 13:41 Patient has correct armband on for positive identification. Bed in low position. Call tl4 light in reach. Side rails up X 1. Adult w/ patient. Provided Education on: ed process, call thomas. Client placed on continuous cardiac and pulse oximetry monitoring. NIBP monitoring applied. 13:41 No provider procedures requiring assistance completed. Patient did not have IV access tl4 during this emergency room visit. Administered Medications: 13:38 Drug: Amoxicillin-Clavulanate PO 875 mg PO once Route: PO; tl4 14:02 Follow up: Response: No adverse reaction; Medication administered at discharge. tl4 Medication: 13:40 VIS not applicable for this client. tl4 Outcome: 13:12 Discharge ordered by . kb 13:42 Discharged to home ambulatory, with family, tl4 13:42 Condition: stable 13:42 Discharge instructions given to patient, family, Instructed on discharge instructions, follow up and referral plans. medication usage, Demonstrated understanding of instructions, follow-up care, medications, Prescriptions given X 2, 13:43 Patient left the ED. tl4 Signatures: Shraddha Martin, MARYBETH-Flex RUEDA-Zoraida Rodriguez RN RN Jesica Thomas RN RN Ofelia Jacinto Toni, RN RN tl4
--- NOTE | 2023-09-12 13:13 | EDPHYS ---
Physician Documentation [facility] Name: Rena Reddy Age: 78 yrs Sex: Female : 1945 Arrival Date: 09/12/2023 Time: 12:08 Bed 10 Private MD: ED Physician Rajiv Dietz HPI: 09/11 16:06 This 78 yrs old Female presents to ER via Ambulatory with complaints of kb Urinary Problem. 16:06 Pt is a 78 year old female who presents for suprapubic pain, dysuria and urinary kb frequency that started last night. States she gets UTIs frequently and the symptoms are exactly the same. Denies fever, chills. . Historical: - Allergies: 12:52 NKDA; ph - PMHx: 12:52 Atrial fibrillation; Diabetes - NIDDM; Hyperlipidemia; Kidney stones; Hypertension; ph Myocardial infarction; - PSHx: 12:52 3 heart stents; Cholecystectomy; Thyroidectomy; watchman; ph - Immunization history:: Adult Immunizations unknown. - Infectious Disease History:: Denies. - Social history:: Smoking status: Patient denies any tobacco usage or history of. ROS: 16:06 Constitutional: As per HPI kb Exam: 16:06 Constitutional: This is a well developed, well nourished patient who is awake, alert, kb and in no acute distress. Head/Face: Normocephalic, atraumatic. ENT: Moist Mucous membranes Cardiovascular: Regular rate Respiratory: Respirations even and unlabored. No increased work of breathing. Talking in full sentences Skin: Warm, dry with normal turgor. Normal color. MS/ Extremity: Pulses equal, no cyanosis. Neurovascular intact. Full, normal range of motion. Neuro: Awake and alert, GCS 15, oriented to person, place, time, and situation. Moves all extremities. Normal gait. 16:06 Abdomen/GI: Inspection: abdomen appears normal, Bowel sounds: normal, Palpation: soft, in all quadrants, mild abdominal tenderness, in the suprapubic area, Vital Signs: 12:52 BP 171 / 86; Pulse 64; Resp 18; Temp 98; Pulse Ox 100% on R/A; ph 13:42 BP 154 / 75; Pulse 60; Resp 16; Temp 97.9(O); Pulse Ox 97% on R/A; tl4 MDM: 12:11 Patient medically screened. kb 16:07 Differential diagnosis: UTI, pyelonephritis. Data reviewed: vital signs, nurses notes. kb Test considered but Not performed: Labs: cbc, cmp considered but pt is nontoxic in appearance, afebrile. Counseling: I had a detailed discussion with the patient and/or guardian regarding the historical points, exam findings, and any diagnostic results supporting the discharge/admit diagnosis, lab results, the need for outpatient follow up, a family practitioner, to return to the emergency department if symptoms worsen or persist or if there are any questions or concerns that arise at home. 09/11 12:22 Order name: Urinalysis w/ reflexes; Complete Time: 13:12 ph 09/11 13:12 Order name: Urine Culture EDMS Administered Medications: 13:38 Drug: Amoxicillin-Clavulanate PO 875 mg PO once Route: PO; tl4 14:02 Follow up: Response: No adverse reaction; Medication administered at discharge. tl4 Disposition Summary: 09/12/23 13:12 Discharge Ordered Notes: Location: Home kb Condition: Stable kb Diagnosis - UTI/ Urinary tract infection, site not specified kb Followup: kb - With: Emergency Department - When: As needed - Reason: Worsening of condition Followup: kb - With: Private Physician - When: 2 - 3 days - Reason: Recheck today's complaints, Continuance of care, Re-evaluation by your physician Discharge Instructions: - Discharge Summary Sheet kb - Urinary Tract Infection, Adult, [id number] kb Forms: - Medication Reconciliation Form kb - Antibiotic Education kb - Prescription Opioid Use kb - Patient Portal Instructions kb - Leadership Thank You Letter kb Prescriptions: - Augmentin 875-125 mg Oral Tablet - take 1 tablet ORAL route every 12 hours for 10 days; 20 tablet; Refills: 0, kb Product Selection Permitted - Diflucan 150 mg Oral Tablet - take 1 tablet ORAL route one time for 1 day; 1 tablet; Refills: 0, Product kb Selection Permitted Signatures: Dispatcher [employer] Shraddha Carolina FNP-C FNP-Ckb Hall, Patricia RN RN Lauri Lobo RN RN tl4
[2023-09-12] MEDS ORDERED: AMOX/K CLAV 875 MG TAB ONE (13:30)
[2023-09-12 13:58] VITALS: BP 154/75; TEMP 97.9; O2SAT 97
== END 2023-09-12 13:43 | disposition home or self-care (01) ==
LOC: ER 12:08
DX: N39.0 Urinary tract infection, site not specified (principal)
CPT/HCPCS: 81001; 87077; 87086; 87088; 87186; 99284

== ENCOUNTER 2023-10-16 07:49 | Inpatient (IN) | payer OTHER ==
[2023-10-16] MEDS ORDERED: ONDANSETRON 4 MG/2 ML VIAL ONE ×2 (08:03→08:37)
[2023-10-16] MEDS ORDERED: NA CHLORIDE 0.9% 1,000 ML ONE (08:03)
[2023-10-16] MEDS ORDERED: FAMOTIDINE 20 MG/2 ML VIAL IV ONE (08:03)
[2023-10-16 08:35] LABS: Absolute Basophils 0.1 K/uL (0-0.5); Absolute Eosinophils 0.4 K/uL (0-0.5); Absolute Lymphocytes (CBC) 1.6 K/uL (0.7-4.9); Absolute Monocytes 0.5 K/uL (0.1-1.3); Absolute Neutrophil 3.5 K/uL (1.8-8.0); Basophils % 1.1 % (0-1.3); Hematocrit 37.4 % (36.0-45.0); Hemoglobin 12.4 g/dL (12.0-15.0); Lymphocytes % 26.3 % (15.3-44.8); MCH 28.7 pg (27.0-35.0); MCHC 33.1 g/dL (32.0-36.0); MCV 86.7 fL (80-100); MPV 8.3 fL (7.6-11.3); Neutrophils % 57.6 % (41.7-73.7); Nucleated Red Blood Cells % 0.1 % (0-0); Platelets 296 thou/uL (152-406); RBC Red Blood Cell Count 4.31 M/uL (3.86-4.86); Red Cell Distribution Width 14.3 % (12.1-15.2)
[2023-10-16 08:39] LABS: PT Prothrombin Time 10.4 SECONDS (9.4-12.5); Protime INR 0.93
[2023-10-16 08:44] LABS: Sqamous Epithelial <5 /HPF (None Seen); Urine Bacteria <20 /HPF (<20); Urine Bilirubin NEGATIVE (Negative); Urine Blood Negative (Negative); Urine Clarity Clear (Clear); Urine Color Colorless (Yellow); Urine Culture Reflex Order NOT NEEDED; Urine Glucose 3+ (Negative); Urine Ketones NEGATIVE (Negative); Urine Microscopic Reflex YN ORDER UMIC; Urine Mucus Slight /HPF (None Seen); Urine Nitrite NEGATIVE (Negative); Urine Protein 2+ (Negative); Urine RBC <5 /HPF (None Seen); Urine Urobilinogen Normal (Normal); Urine WBC <5 /HPF (<5)
[2023-10-16 08:55] LABS: ALT/SGPT 27 U/L (13-56); AST/SGOT 15 U/L (15-37); Albumin/Globulin Ratio 0.9 (1.1-1.8); Alkaline Phosphatase 95 U/L (45-117); Anion Gap 10.1 mEq/L (5.0-15.0); BUN Blood Urea Nitrogen 19 mg/dL (7-18); Bicarbonate 26 mEq/L (21-32); Bilirubin Total 0.3 mg/dL (0.2-1.0); Globulin 4.3 g/dL (2.3-3.5); Glomerular Filtration Rate 59 ml/min (=/>90); Glucose Level 247 mg/dL (74-106); Lipase 37 U/L (13-75); Magnesium 1.1 mg/dL (1.6-2.4); NT PRO-BNP 428 pg/mL (<450); Potassium 4.1 mEq/L (3.5-5.1); Protein, Total 8.3 g/dL (6.4-8.2); Sodium Level 136 mEq/L (136-145); Troponin High Sensitivity 28.8 pg/mL (<58.9)
[2023-10-16 09:04] LABS: Bilirubin Direct < 0.2 mg/dL (0-0.2); Bilirubin Indirect, Calculated 0.1 mg/dL (0.2-0.8)
--- NOTE | 2023-10-16 09:28 | EDPHYS ---
Physician Documentation [facility] Name: Rena Reddy Age: 78 yrs Sex: Female : 1945 Arrival Date: 10/16/2023 Time: 07:49 Bed 6 Private MD: ED Physician Stefano Arnold HPI: 10/15 09:11 This 78 yrs old Female presents to ER via Unassigned with complaints of Chest abby Pain, Vomiting, Abdominal Pain. 09:11 The patient or guardian reports chest pain that is located primarily in the anterior abby chest wall, bilaterally. Onset: just prior to arrival, this morning. The pain radiates to the left arm. Associated signs and symptoms: Pertinent positives: nausea, vomiting. The chest pain is described as a heaviness. Modifying factors: The symptoms are alleviated by nothing. the symptoms are aggravated by nothing. Severity of pain: At its worst the pain was moderate in the emergency department the pain is unchanged. The patient has experienced similar episodes in the past, multiple times. Historical: - Allergies: 09:40 NKDA; nj1 - PMHx: 09:51 Hypertensive disorder; Diabetes mellitus; Myocardial infarction; dd2 - PSHx: 09:51 CARDIAC STENTS; WATCHMAN; dd2 - Immunization history:: Adult Immunizations unknown. - Infectious Disease History:: Denies. - Family history:: not pertinent. - Social history:: Smoking status: Patient denies any tobacco usage or history of. ROS: 09:11 Constitutional: Negative for fever, chills, and weight loss, Eyes: Negative for injury, abby pain, redness, and discharge, ENT: Negative for injury, pain, and discharge, Neck: Negative for injury, pain, and swelling, Respiratory: Negative for shortness of breath, cough, wheezing, and pleuritic chest pain, Back: Negative for injury and pain, : Negative for injury, bleeding, discharge, and swelling, MS/Extremity: Negative for injury and deformity, Skin: Negative for injury, rash, and discoloration, Psych: Negative for depression, anxiety, suicide ideation, homicidal ideation, and hallucinations, Allergy/Immunology: Negative for hives, rash, and allergies, Endocrine: Negative for neck swelling, polydipsia, polyuria, polyphagia, and marked weight changes, Hematologic/Lymphatic: Negative for swollen nodes, abnormal bleeding, and unusual bruising, 09:11 Cardiovascular: Positive for chest pain, 09:11 Abdomen/GI: Positive for nausea and vomiting, 09:11 Neuro: Positive for dizziness, weakness, Exam: 09:11 Constitutional: This is a well developed, well nourished patient who is awake, alert, abby and in no acute distress. Head/Face: Normocephalic, atraumatic. Eyes: Pupils equal round and reactive to light, extra-ocular motions intact. Lids and lashes normal. Conjunctiva and sclera are non-icteric and not injected. Cornea within normal limits. Periorbital areas with no swelling, redness, or edema. ENT: Nares patent. No nasal discharge, no septal abnormalities noted. Tympanic membranes are normal and external auditory canals are clear. Oropharynx with no redness, swelling, or masses, exudates, or evidence of obstruction, uvula midline. Mucous membranes moist. Neck: Trachea midline, no thyromegaly or masses palpated, and no cervical lymphadenopathy. Supple, full range of motion without nuchal rigidity, or vertebral point tenderness. No Meningismus. Chest/axilla: Normal chest wall appearance and motion. Nontender with no deformity. No lesions are appreciated. Cardiovascular: Regular rate and rhythm with a normal S1 and S2. No gallops, murmurs, or rubs. Normal PMI, no JVD. No pulse deficits. Respiratory: Lungs have equal breath sounds bilaterally, clear to auscultation and percussion. No rales, rhonchi or wheezes noted. No increased work of breathing, no retractions or nasal flaring. Abdomen/GI: Soft, non-tender, with normal bowel sounds. No distension or tympany. No guarding or rebound. No evidence of tenderness throughout. Back: No spinal tenderness. No costovertebral tenderness. Full range of motion. Female : Normal external genitalia. Skin: Warm, dry with normal turgor. Normal color with no rashes, no lesions, and no evidence of cellulitis. MS/ Extremity: Pulses equal, no cyanosis. Neurovascular intact. Full, normal range of motion. Neuro: Awake and alert, GCS 15, oriented to person, place, time, and situation. Cranial nerves II-XII grossly intact. Motor strength 5/5 in all extremities. Sensory grossly intact. Cerebellar exam normal. Normal gait. Psych: Awake, alert, with orientation to person, place and time. Behavior, mood, and affect are within normal limits. 09:11 ECG was reviewed by the Attending Physician. 09:11 Neuro: Orientation: is normal, appropriate for stated age, Mentation: is normal, appropriate for stated age, no acute changes, Memory: is normal, appropriate for stated age, no acute changes, Cranial nerves: grossly normal, is grossly normal based on the patient's age, no acute changes, Cerebellar function: is grossly normal, is grossly normal based on the patient's age, no acute changes, Motor: is normal, is grossly normal based on the patient's age, no acute changes, moves all fours, strength is normal, strength is 5/5 in all extremities, Sensation: is normal, no obvious gross deficits, appropriate no acute changes, Gait: not tested. seizure activity, is not displayed by the patient, Vital Signs: 08:00 BP 187 / 81; Pulse 81; Resp 16; Temp 98; Pulse Ox 100% on R/A; Pain 5/10; hb 10:05 BP 154 / 74; Pulse 87; Resp 15; Pulse Ox 93% ; dd2 08:00 Pain Scale: Adult hb NIH Stroke Scale Scores: 09:11 NIHSS Score: 0 abby Kalpana Coma Score: 09:11 Eye Response: spontaneous(4). Motor Response: obeys commands(6). Verbal Response: abby oriented(5). Total: 15. MDM: 07:58 Patient medically screened. abby 09:16 Differential diagnosis: abnormal EKG, acute myocardial infarction, acute pericarditis, abby anxiety, coronary artery disease chest wall pain, congestive heart failure gastritis, pancreatitis, peptic ulcer disease, pericarditis, pneumonia, pneumothorax, pulmonary embolus, stable angina, unstable angina. HEART Score: History: Slightly Suspicious (0), ECG: Non specific repolarization disturbance / LBTB / PM (1), Age: > or = 65 years (2), Risk Factors: > or = 3 Risk factors for atherosclerotic disease (2), [Hypercholesterolemia] [Hypertension] [+ Family HX] Troponin: < or = 1 x Normal Limit (0). The patient was given aspirin in the Emergency Department. KERLINE Risk Score: 1 - patient's age is greater or equal to 65 years, 1 - Three or more CAD risk factors, 1- Known CAD, TOTAL SCORE = 3. Data reviewed: vital signs, nurses notes, EMS record, lab test result(s), EKG, radiologic studies, CT scan, plain films. Consideration of Admission/Observation Escalation of care including admission/observation considered. I considered the following discharge prescriptions or medication management in the emergency department Medications were administered in the Emergency Department. See MAR. Independent interpretation of the following test(s) in the Emergency Department EKG: See my EKG interpretation above. Test considered but Not performed: Ultrasound no 2 d echo. 10/15 08:00 Order name: Basic Metabolic Panel; Complete Time: 09:10/15 08:00 Order name: CBC with Diff; Complete Time: :10/15 08:00 Order name: LFT's; Complete Time: :10/15 08:00 Order name: Magnesium; Complete Time: :10/15 08:00 Order name: NT PRO-BNP; Complete Time: 09:10/15 08:00 Order name: PT-INR; Complete Time: :10/15 08:00 Order name: Troponin HS; Complete Time: :10/15 08:00 Order name: Lipase; Complete Time: :10/15 08:00 Order name: Urinalysis w/ reflexes; Complete Time: 09: [facility] 10/15 10:10 Order name: Basic Metabolic Panel EDMS 10/15 10:10 Order name: Basic Metabolic Panel EDMS 10/15 10:10 Order name: CBC with Automated Diff EDMS 10/15 10:10 Order name: CBC with Automated Diff EDMS 10/15 10:10 Order name: Lipid Profile EDMS 10/15 10:10 Order name: Lipid Profile EDMS 10/15 10:10 Order name: Troponin High Sensitivity EDMS 10/15 10:10 Order name: Troponin High Sensitivity EDMS 10/15 10:10 Order name: Troponin High Sensitivity EDMS 10/15 10:10 Order name: Troponin High Sensitivity EDMS 10/15 10:10 Order name: Troponin High Sensitivity EDMS 10/15 08:00 Order name: XRAY Chest (1 view); Complete Time: 10:33 [facility] 10/15 08:00 Order name: CT Chest Abdomen Pelvis W/O Contrast; Complete Time: 10:33 [facility] 10/15 09:08 Order name: CT Head Brain wo Cont; Complete Time: 10:33 [facility] 10/15 09:08 Order name: US Carotid Artery Bilateral [facility] 10/15 10:38 Order name: US EDMS 10/15 11:40 Order name: CT EDMS 10/15 11:40 Order name: CT EDMS 10/15 08:00 Order name: Cardiac monitoring; Complete Time: 08:21 abby 10/15 08:00 Order name: EKG - Nurse/Tech; Complete Time: 08:21 abby 10/15 08:00 Order name: IV Saline Lock; Complete Time: 08: [facility] 10/15 08:00 Order name: Labs collected and sent; Complete Time: 08: abby 10/15 08:00 Order name: O2 Per Protocol; Complete Time: 08:51 [facility] 10/15 08:00 Order name: O2 Sat Monitoring; Complete Time: 08:22 [facility] EC:11 Rate is 85 beats/min. Rhythm is regular. QRS [place] is Normal. PA interval is normal. QRS abby interval is normal. QT interval is normal. No Q waves. T waves are Normal. No ST changes noted. Clinical impression: NSR w/ Non-specific ST/T Changes and No evidence of ischemia. Interpreted by me. Reviewed by me. Administered Medications: 08:20 Drug: Famotidine IVP 20 mg IVP once; dilute with 10 mL 0.9% NaCl; give over 2 minutes ko1 Route: IVP; Site: right antecubital; 08:35 Follow up: Response: No adverse reaction dd2 08:20 Drug: Ondansetron IVP 4 mg IVP once; over 2 minutes Route: IVP; Site: right antecubital;ko1 08:35 Follow up: Response: No adverse reaction dd2 08:20 Drug: NS 0.9% IV 1000 ml IV at 1 bolus Per protocol; 1000 mL bolus Route: IV; Rate: 1 ko1 bolus; Site: right antecubital; 08:35 Follow up: Response: No adverse reaction dd2 09:20 Follow up: Response: No adverse reaction; IV Status: Completed infusion; IV Intake: dd2 1000ml 08:51 Drug: Ondansetron IVP 4 mg IVP once; over 2 minutes Route: IVP; Site: right antecubital;ko1 09:06 Follow up: Response: No adverse reaction dd2 09:42 Drug: Magnesium Sulfate IVPB 2 grams IVPB once over 2 hrs Route: IVPB; Infused Over: 2 nj1 hrs; Site: right antecubital; 09:59 Drug: Promethazine IVP 12.5 mg IVP once Route: IVP; Site: right antecubital; nj1 10:14 Follow up: Response: No adverse reaction dd2 09:59 Drug: Promethazine IVP 12.5 mg IVP once; Add to 500 ml NS Route: IVP; Site: right nj1 antecubital; 10:14 Follow up: Response: No adverse reaction dd2 09:59 Drug: NS 0.9% IV 500 ml IV at bolus once Route: IV; Rate: bolus; Site: right nj1 antecubital; 10:40 Follow up: Response: No adverse reaction; IV Status: Completed infusion; IV Intake: dd2 500ml 11:39 Drug: Meclizine PO 25 mg PO once Route: PO; dd2 Disposition Summary: 10/16/23 09:28 Hospitalization Ordered Notes: Hospitalization Status: Observation abby Provider: Curt Beltre cha Location: Telemetry/MedSurg (observation) abby Condition: Stable abby Problem: new abby Symptoms: have improved abby Bed/Room Type: Standard abby Room Assignment: 413(10/16/23 10:38) sp Diagnosis - Chest pain, unspecified abby - Other peripheral vertigo, bilateral abby - Vomiting abby - Hypomagnesemia abby - Constipation abby Forms: - Medication Reconciliation Form abby - SBAR form abby - Leadership Thank You Letter abby NIH Stroke Scale - NIH Stroke Score Date: 10/16/2023 Time: 09:11 Total Score = 0 10. Dysarthria (speech clarity - read or repeat words) - 0(Normal) 11. Extinction and Inattention (visual/tactile/auditory/spatial/personal) - 0(No abnormality) 1a. Level of Consciousness (LOC) - 0(Alert) 1b. Level of Consciousness (LOC) (Month \T\ Age) - 0(Both) 1c. LOC Commands (Open \T\ Closes Eyes/Survey Research Teacher) - 0(Both) 2. Best Gaze (Lateral Gaze Paresis) - 0(Normal) 3. Visual Field Loss - 0(No visual loss) 4. Facial Palsy - 0(Normal) 5a. Left Arm: Motor (10-second hold) - 0(No drift) 5b. Right Arm: Motor (10-second hold) - 0(No drift) 6a. Left Leg: Motor (5-second hold - always test supine) - 0(No drift) 6b. Right Leg: Motor (5-second hold - always test supine) - 0(No drift) 7. Limb Ataxia (finger/nose \T\ heel/culver - test with eyes open) - 0(Absent) 8. Sensory Loss (pinprick arms/legs/face) - 0(Normal) 9. Best Language: Aphasia (description/naming/reading) - 0(No aphasia) Initials: abby Signatures: Dispatcher [employer] EDMS Stefano Arnold MD MD cha Pinkerton, Shawna sp Oliver, Kathy RN RN ko1 Enma Larkin RN RN nj1 HERO ARMANDO RN RN dd2 Corrections: (The following items were deleted from the chart) 08:01 08:01 BASIC METABOLIC PANEL+C.LAB.BRZ ordered. EDMS EDMS 08:01 08:01 CBC+H.LAB.BRZ ordered. EDMS EDMS 08:01 08:01 HEPATIC FUNCTION+C.LAB.BRZ ordered. EDMS EDMS 08:01 08:01 MAGNESIUM+C.LAB.BRZ ordered. EDMS EDMS 08:01 08:01 PROBNP+C.LAB.BRZ ordered. EDMS EDMS 08:01 08:01 PROTIME (+INR)+COAG.LAB.BRZ ordered. EDMS EDMS 08:01 08:01 Troponin High Sensitivity+C.LAB.BRZ ordered. EDMS EDMS 08:01 08:01 LIPASE+C.LAB.BRZ ordered. EDMS EDMS 08:01 08:01 Urinalysis+U.LAB.BRZ ordered. EDMS EDMS 08:01 08:01 Chest Single View+RAD.RAD.BRZ ordered. EDMS EDMS 08:01 08:01 Chest Abdomen Pelvis Wo Con+CT.RAD.BRZ ordered. EDMS EDMS 09:49 09:40 PMHx: Hypertension; ma1 nj1 09:49 09:40 PMHx: Diabetes - NIDDM; [facility] nj1 09:49 09:40 PMHx: Hyperlipidemia; [facility] 09:49 09:40 PMHx: Kidney stones; nj1 nj1 :49 09:40 PMHx: Myocardial infarction; nj1 nj1 09:40 PMHx: Atrial fibrillation; nj1 nj1 09:40 PSHx: 3 heart stents; nj1 nj1 09:40 PSHx: Thyroidectomy; nj1 nj1 09:40 PSHx: Cholecystectomy; nj1 nj1 09 09:51 PSHx: Stented artery; dd2 dd2 10:38 09:28 abby sp
[2023-10-16] MEDS ORDERED: Magnesium Sulfate 2gm IVPB 2 G/50 ML BAG IV ONE (09:31)
[2023-10-16] MEDS ORDERED: MECLIZINE HCL 12.5 MG TAB ONE (09:31)
--- NOTE | 2023-10-16 09:40 | RAD REPORT ---
EXAM DESCRIPTION: CT - Chest Abd Pelvis Wo Con - 10/16/2023 8:33 am CLINICAL HISTORY: Chest and abdominal pain COMPARISON: April 2022 TECHNIQUE: Computed axial tomography of the chest, abdomen and pelvis was obtained. Oral contrast wa s given. IV contrast was not requested. All CT scans are performed using dose optimization technique as appropriate and may include automated exposure control or mA/KV adjustment according to patient size. FINDINGS: The evaluation of mediastinum, apolinar, vessels and solid organs is limited secondary to the lack of IV contrast administration 7 millimeter ground-glass nodule right upper lobe is unchanged. 5 millimeter ground-glass nodule left upper lobe are unchanged. No mediastinal or hilar lymphadenopathy is seen. Watchman device present A pleural effusion is not present. 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 No hydronephrosis. Mild renal cortical thinning The liver, spleen, pancreas, adrenals and left kidney appear grossly normal Cholecystectomy. Rectum is mildly distended stool. Moderate amount stool throughout the colon. Normal appendix No adnexal mass There is no evidence of diverticulitis. Spondylosis lumbar spine results spinal stenosis IMPRESSION: Bilateral subcentimeter ground-glass nodules within the lungs probably benign. Followup CT chest 1 year recommended per Fleischner guidelines Rectum is mildly distended stool. Moderate amount stool throughout the colon Spondylosis lumbar spine results spinal stenosis
--- NOTE | 2023-10-16 09:41 | RAD REPORT ---
EXAM DESCRIPTION: [place] Single View10/16/2023 8:40 am CLINICAL HISTORY: Chest pain COMPARISON: October 16, 2023 CT FINDINGS: Patient's known small bilateral upper lobe ground-glass nodules not clearly visualized thi s exam. Refer to the CT chest report for recommendation The lungs appear clear of acute infiltrate. The heart is normal size
--- NOTE | 2023-10-16 09:51 | P.HP ---
Certification for Inpatient Patient admitted to: Observation <Mendy Bolden - Last Filed: 10/16/23 16:18> Patient History Date of Service: 10/16/23 Reason for admission: Chest pain History of Present Illness: 78 yrs old Female with past medical history of Hypertensive disorder; Diabetes mellitus; Myocardial infarction, PCI x3, Watchman procedure presents to the Emergency department with chest pain. She reports associated with nasuea, vomiting. Family is at bedside is primary historian reports she had chest pain, shoulder pain with associated nausea, vomiting today. She denies recent illness, no sick contacts, she is not on anticoagulation, she sees Dr Palmer. no reported shortness of breath, edema, plan to admit for chest pain, rule out GA, BPV, for cardiology to evaluate, EKG NRS rate [address] abnormality, BP 187 / 81; Pulse 81; Resp 16; Temp 98; Pulse Ox 100% on R/A; Pain 5/10; CT of the head no acute findings, neck CTA IMPRESSION: Short-segment intimal flap proximal left internal carotid artery Marked plaque proximal right internal carotid artery results in an approximately 80 percent stenosis - Past Medical/Surgical History Diabetic: Yes -: HTN -: Type 2 diabetes -: Coronary artery disease -: Nephrolithiasis -: GERD -: Hyperlipidemia -: Kidney stone -: Thyroidectomy -: Stent in LAD (03/2014) -: Cholecystectomy -: Extraction of nephrolithiasis -: Watchman Psychosocial/ Personal History: Patient lives at home with her daughter. - Family History Father -: Heart disease, Hypertension, Diabetes, Stroke Mother -: Heart disease, Diabetes Sister -: Hypertension, Diabetes, Cancer Notes: breast cancer Brother -: Heart disease, Stroke - Social History Alcohol use: No CD- Drugs: No Caffeine use: Yes <Mendy Bolden - Last Filed: 10/16/23 16:18> Date of Service: 10/16/23 <Curt Beltre - Last Filed: 10/18/23 04:21> Allergies No Known Drug Allergies Allergy (Verified 06/07/23 00:04) Unknown Home Medications: ALPRAZolam [Xanax*] 0.25 mg PO DAILY 06/07/23 Amlodipine [Norvasc*] 5 mg PO DAILY 06/07/23 Atorvastatin Calcium [Lipitor] 40 mg PO DAILY 06/07/23 Celecoxib 200 mg PO BID 06/07/23 Furosemide [Lasix*] 20 mg PO DAILY 06/07/23 Insulin Glargine,Hum.rec.anlog [Basaglar Kwikpen U-100] 35 units SQ BEDTIME 06/07/23 Lisinopril [Zestril] 20 mg PO DAILY 06/07/23 Metformin HCl [Glucophage*] 1,000 mg PO BID 06/07/23 Pantoprazole [Protonix Tab*] 40 mg PO DAILY 06/07/23 Cephalexin 500 mg PO Q8H 08/14/23 Ferrous Sulfate [Ferrous Sulfate*] 325 mg PO DAILY 08/14/23 Meclizine HCl 12.5 mg PO PRN PRN 08/14/23 Aspirin [Aspirin EC 81 MG] 81 mg PO DAILY #320 tab 08/15/23 Sotalol HCl [Betapace*] 80 mg PO BID 6AM 6PM #60 tab 08/15/23 Amox/Clavulanate [Augmentin 875-125 Tab] 1 each PO BID #14 tab 08/16/23 Review of Systems Per HPI <Mendy Bolden - Last Filed: 10/16/23 16:18> Physical Examination - Physical Exam General: Alert, In no apparent distress, Oriented x3 HEENT: Atraumatic, Normocephalic, PERRLA Neck: 2+ carotid pulse no bruit, JVD not distended Respiratory: Clear to auscultation bilaterally, Normal air movement Cardiovascular: Normal pulses, Regular rate/rhythm Capillary refill: <2 Seconds Gastrointestinal: Normal bowel sounds, Soft and benign Musculoskeletal: No clubbing, No swelling Integumentary: No rashes, No breakdown Neurological: Normal speech, Normal strength at 5/5 x4 extr - Studies Laboratory Data (last 24 hrs) 10/16/23 10/16/23 10/16/23 08:09 08:09 08:09 WBC 6.10 Hgb 12.4 Hct 37.4 Plt Count 296 PT 10.4 INR 0.93 Sodium 136 Potassium 4.1 BUN 19 H Creatinine 0.99 Glucose 247 H Magnesium 1.1 L Total Bilirubin 0.3 AST 15 ALT 27 Alkaline Phosphatase 95 Lipase 37 <Mendy Bolden - Last Filed: 10/16/23 16:18> - Studies Laboratory Data (last 24 hrs) 10/17/23 10/17/23 05:10 05:10 WBC 5.20 Hgb 11.0 L D Hct 32.9 L Plt Count 247 Sodium 139 Potassium 4.2 BUN 16 Creatinine 0.76 Glucose 132 H Phosphorus 2.8 Magnesium 1.7 <Curt Beltre - Last Filed: 10/18/23 04:21> Assessment and Plan - Plan Assessment and plan Chest pain rule out GA NSTEMI Hypertension urgency CAD PCI x 3 History of GA Watchman procedure Cardiology to consult, Trend troponins, She reports associated with nasuea, vomiting. Family is at bedside is primary historian reports she had chest pain, shoulder pain with associated nausea, vomiting today. She denies recent illness, no sick contacts, she is not on anticoagulation, she sees Dr Palmer. no reported shortness of breath, edema, plan to admit for chest pain, rule out GA, BPV, for cardiology to evaluate, EKG NRS rate [address] abnormality, BP 187 / 81; Pulse 81; Resp 16; Temp 98; Pulse Ox 100% on R/A; Pain 5/10; CT of the head no acute findings, neck CTA IMPRESSION: Short-segment intimal flap proximal left internal carotid artery Marked plaque proximal right internal carotid artery results in an approximately 80 percent stenosis lipid panel Diabetes mellitus type II Sliding scale insulin, Accu-Chek Full code DVT Lovenox 1mg/kg Diet cardiac disposition independent, resides with family Discharge Plan: Home - Advance Directives Does patient have a Living Will: No Does patient have a Durable POA for Healthcare: No - Code Status/Comfort Care Code Status: Full Code Critical Care: No Time Spent Managing Pts Care (In Minutes): 55 <Mendy Bolden - Last Filed: 10/16/23 16:18> Date of Service: 10/16/23 Patient was seen and examined. Events of the last 24 hours have been noted. Spoke with with FRANCISCO regarding patient's clinical picture after evaluating and examining the patient independently. I performed a substantial part of the MDM during this patient's care today. I personally made or approved the documented management plan and acknowledge its risk of complications. I agree with the findings and documentation provided in the FRANCISCO's notes. Patient to be seen by Cardiology. Possible cardiac catheterization Wednesday. <Curt Beltre - Last Filed: 10/18/23 04:21>
[2023-10-16] MEDS ORDERED: NA CHLORIDE 0.9% 500 ML ONE (09:54)
[2023-10-16] MEDS ORDERED: PROMETHAZINE INJ 25 MG/ML AMP ONE (09:54)
--- NOTE | 2023-10-16 10:01 | RAD REPORT ---
EXAM DESCRIPTION: CT - Head Brain Wo Cont - 10/16/2023 9:28 am CLINICAL HISTORY: Dizziness COMPARISON: May 2023 TECHNIQUE: Computed axial tomography of the head was obtained. IV contrast was not requested. All CT scans are performed using dose optimization technique as appropriate and may include automated exposure control or mA/KV adjustment according to patient size. FINDINGS: An intracranial bleed is not seen The ventricles are normal in caliber No significant hypodense areas within the brain visualized No extra-axial fluid collection is noted. Fluid within the sinuses/ mastoids is not seen IMPRESSION: No acute intracranial abnormality is seen If patient's symptoms persist MRI of the brain would be recommended
[2023-10-16] MEDS ORDERED: ACETAMINOPHEN 500 MG TAB PO PRN (10:06)
--- NOTE | 2023-10-16 10:38 | RAD REPORT ---
EXAM DESCRIPTION: USCarotid Artery Bilateral10/16/2023 10:12 am CLINICAL HISTORY: Dizziness COMPARISON: None FINDINGS: The velocity of the right internal carotid artery equals 303 cm/sec. The artery is tortuou s. The right ICA/CCA ratio 6.7 The velocity of the left internal carotid artery equals 155 cm/sec. The artery is tortuous. The left ICA/CCA ratio 3.2 Mild to moderate plaque is present within carotid arteries. The vertebral arteries demonstrate antegrade flow NASCET criteria used. Mild 0-49% stenosis Moderate 50-69% stenosis Severe 70-99% stenosis IMPRESSION: Mild to moderate plaque is present within the carotid arteries. The elevated velocities probably is mostly secondary to the artery being tortuous rather than a significant stenosis. It is recommended that the patient have a nonemergent MRA of the neck for further evaluation
--- NOTE | 2023-10-16 11:39 | RAD REPORT ---
EXAM DESCRIPTION: CTHead angio10/16/2023 11:03 am CLINICAL HISTORY: Basilar artery syndrome. CVA COMPARISON: none TECHNIQUE: 100 cc Isovue [address] angiogram of the head was obtained. 3D MIPS reconstruction performed. All CT scans are performed using dose optimization technique as appropriate and may include automated exposure control or mA/KV adjustment according to patient size. FINDINGS: The basilar, anterior cerebral, middle cerebral and posterior cerebral arteries do not dem onstrate a significant stenosis Mild calcified plaque distal internal carotid arteries An aneurysm is not seen No large vessel occlusion IMPRESSION: No significant vascular abnormality is displayed
--- NOTE | 2023-10-16 11:40 | RAD REPORT ---
EXAM DESCRIPTION: Michelle Angio10/16/2023 11:03 am CLINICAL HISTORY: Basilar artery syndrome/CVA COMPARISON: None TECHNIQUE: 100 cc Isovue [address] angiogram of the neck was obtained. 3D MIPS reconstruction performed. All CT scans are performed using dose optimization technique as appropriate and may include automated exposure control or mA/KV adjustment according to patient size. FINDINGS: Visualized aortic arch and great vessels demonstrate no significant abnormality Mild to moderate plaque left common carotid artery. Proximal left internal carotid artery is very tortuous. Yvlr-rl-deuzftji plaque is present. A short-s egment intimal flap is seen. Marked calcified and noncalcified plaque within the proximal right internal carotid artery Vertebral arteries unremarkable [place] Mild stenosis 0 to 49 % Moderate stenosis 50-69% Severe stenosis 70-99% IMPRESSION: Short-segment intimal flap proximal left internal carotid artery Marked plaque proximal right internal carotid artery results in an approximately 80 percent stenosis
[2023-10-16 12:28] LABS: Troponin High Sensitivity 158.6 pg/mL (<58.9)
--- NOTE | 2023-10-16 12:38 | ER ---
Nurse's Notes [facility] Name: Rena Reddy Age: 78 yrs Sex: Female : 1945 Arrival Date: 10/16/2023 Time: 07:49 Bed 6 Private MD: Diagnosis: Chest pain, unspecified;Other peripheral vertigo, bilateral;Vomiting;Hypomagnesemia;Constipation Presentation: 10/15 08:00 Chief complaint: Chest pain that radiates to left arm since this morning. Coronavirus hb screen: At this time, the client does not indicate any symptoms associated with coronavirus-19. Ebola Screen: No symptoms or risks identified at this time. Initial Sepsis Screen: Does the patient meet any 2 criteria? No. Patient's initial sepsis screen is negative. Does the patient have a suspected source of infection? No. Patient's initial sepsis screen is negative. Risk Assessment: Do you want to hurt yourself or someone else? Patient reports no desire to harm self or others. Onset of symptoms was October 16, 2023. 08:00 Method Of Arrival: Ambulatory hb 08:00 Acuity: JULES 3 hb Triage Assessment: 08:00 General: Appears uncomfortable, Behavior is calm, cooperative. Pain: Complains of pain dd2 in anterior aspect of left upper chest and mid-sternal area Pain began 1 hour ago. Cardiovascular: Reports chest pain, nausea, vomiting, Heart tones S1 S2 present. Historical: - Allergies: 09:40 NKDA; nj1 - PMHx: 09:51 Hypertensive disorder; Diabetes mellitus; Myocardial infarction; dd2 - PSHx: 09:51 CARDIAC STENTS; WATCHMAN; dd2 - Immunization history:: Adult Immunizations unknown. - Infectious Disease History:: Denies. - Family history:: not pertinent. - Social history:: Smoking status: Patient denies any tobacco usage or history of. Screenin:35 [facility] ED Fall Risk Assessment (Adult) History of falling in the last 3 months, dd2 including since admission No falls in past 3 months (0 pts) Confusion or Disorientation No (0 pts) Intoxicated or Sedated No (0 pts) Impaired Gait No (0 pts) Mobility Assist Device Used No (0 pt) Altered Elimination No (0 pt) Score/Fall Risk Level 0 - 2 = Low Risk Oriented to surroundings, Maintained a safe environment, Educated pt \T\ family on fall prevention, incl call for assistance when getting out of bed, Provided non-skid footwear, Hourly rounding (assess needs \T\ fall precautionary measures) done. Abuse screen: Denies threats or abuse. Nutritional screening: No deficits noted. Tuberculosis screening: No symptoms or risk factors identified. Assessment: 08:35 General: Appears uncomfortable, Behavior is calm, cooperative. Pain: Pain does not dd2 radiate. Neuro: Reports dizziness. Neuro:. Cardiovascular: Reports chest pain, nausea, vomiting, Chest pain is described as mild, quality is sharp. Respiratory: No deficits noted. GI: Pt is actively vomiting bile, Abd is soft and non tender Reports nausea, vomiting. : No deficits noted. EENT:. Derm: No deficits noted. Musculoskeletal: No deficits noted. Vital Signs: 08:00 BP 187 / 81; Pulse 81; Resp 16; Temp 98; Pulse Ox 100% on R/A; Pain 5/10; hb 10:05 BP 154 / 74; Pulse 87; Resp 15; Pulse Ox 93% ; dd2 08:00 Pain Scale: Adult hb [place] Coma Score: 09:11 Eye Response: spontaneous(4). Motor Response: obeys commands(6). Verbal Response: abby oriented(5). Total: 15. NIH Stroke Scale Scores: 09:11 NIHSS Score: 0 abby ED Course: 07:51 Patient arrived in ED. ra3 07:58 Stefano Arnold MD is Attending Physician. abby 08:21 HERO ARMANDO, RN is Primary Nurse. dd2 08:21 CBC with Diff Sent. dd2 08:21 Basic Metabolic Panel Sent. dd2 08:21 LFT's Sent. dd2 08:21 Magnesium Sent. dd2 08:21 NT PRO-BNP Sent. dd2 08:21 PT-INR Sent. dd2 08:21 Troponin HS Sent. dd2 08:35 CT Chest Abdomen Pelvis W/O Contrast In Process Unspecified. EDMS 08:35 No provider procedures requiring assistance completed. Inserted saline lock: 22 gauge dd2 in right antecubital area, using aseptic technique. Blood collected. Flushed with 10 mL NS Missed attempt(s): 20 gauge in right in left antecubital area. Bleeding controlled, band aid applied, catheter tip intact. Patient maintains SpO2 saturation greater than 95% on room air. 08:35 Patient has correct armband on for positive identification. Bed in low position. Call dd2 light in reach. Side rails up X2. Provided Education on: CALL LIGHT, MEDICATION, FALL RISK, LABS/PROCEDURE. Client placed on continuous cardiac and pulse oximetry monitoring. NIBP monitoring applied. radiation monitor on. Door closed. Noise minimized. Warm blanket given. 08:42 XRAY Chest (1 view) In Process Unspecified. EDMS 09:18 Curt Beltre MD is Hospitalizing Provider. abby 09:28 Triage completed. hb 09:29 CT Head Brain wo Cont In Process Unspecified. EDMS 09:29 Arm band placed on. hb Administered Medications: 08:20 Drug: Famotidine IVP 20 mg IVP once; dilute with 10 mL 0.9% NaCl; give over 2 minutes ko1 Route: IVP; Site: right antecubital; 08:35 Follow up: Response: No adverse reaction dd2 08:20 Drug: Ondansetron IVP 4 mg IVP once; over 2 minutes Route: IVP; Site: right antecubital;ko1 08:35 Follow up: Response: No adverse reaction dd2 08:20 Drug: NS 0.9% IV 1000 ml IV at 1 bolus Per protocol; 1000 mL bolus Route: IV; Rate: 1 ko1 bolus; Site: right antecubital; 08:35 Follow up: Response: No adverse reaction dd2 09:20 Follow up: Response: No adverse reaction; IV Status: Completed infusion; IV Intake: dd2 1000ml 08:51 Drug: Ondansetron IVP 4 mg IVP once; over 2 minutes Route: IVP; Site: right antecubital;ko1 09:06 Follow up: Response: No adverse reaction dd2 09:42 Drug: Magnesium Sulfate IVPB 2 grams IVPB once over 2 hrs Route: IVPB; Infused Over: 2 nj1 hrs; Site: right antecubital; 09:59 Drug: Promethazine IVP 12.5 mg IVP once Route: IVP; Site: right antecubital; nj1 10:14 Follow up: Response: No adverse reaction dd2 09:59 Drug: Promethazine IVP 12.5 mg IVP once; Add to 500 ml NS Route: IVP; Site: right nj1 antecubital; 10:14 Follow up: Response: No adverse reaction dd2 09:59 Drug: NS 0.9% IV 500 ml IV at bolus once Route: IV; Rate: bolus; Site: right nj1 antecubital; 10:40 Follow up: Response: No adverse reaction; IV Status: Completed infusion; IV Intake: dd2 500ml 11:39 Drug: Meclizine PO 25 mg PO once Route: PO; dd2 Medication: 08:35 VIS not applicable for this client. dd2 Intake: 09:20 IV: 1000ml; Total: 1000ml. dd2 10:40 IV: 500ml; Total: 1500ml. dd2 Outcome: 09:28 Decision to Hospitalize by Provider. [facility] 12:37 Patient left the ED. NIH Stroke Scale - NIH Stroke Score Date: 10/16/2023 Time: 09:11 Total Score = 0 10. Dysarthria (speech clarity - read or repeat words) - 0(Normal) 11. Extinction and Inattention (visual/tactile/auditory/spatial/personal) - 0(No abnormality) 1a. Level of Consciousness (LOC) - 0(Alert) 1b. Level of Consciousness (LOC) (Month \T\ Age) - 0(Both) 1c. LOC Commands (Open \T\ Closes Eyes/Batch Records Clerk) - 0(Both) 2. Best Gaze (Lateral Gaze Paresis) - 0(Normal) 3. Visual Field Loss - 0(No visual loss) 4. Facial Palsy - 0(Normal) 5a. Left Arm: Motor (10-second hold) - 0(No drift) 5b. Right Arm: Motor (10-second hold) - 0(No drift) 6a. Left Leg: Motor (5-second hold - always test supine) - 0(No drift) 6b. Right Leg: Motor (5-second hold - always test supine) - 0(No drift) 7. Limb Ataxia (finger/nose \T\ heel/culver - test with eyes open) - 0(Absent) 8. Sensory Loss (pinprick arms/legs/face) - 0(Normal) 9. Best Language: Aphasia (description/naming/reading) - 0(No aphasia) Initials: abby Signatures: Dispatcher [employer] EDStefano De Leon MD MD cha Baxter, Heather, RN RN Kaitlyn Jones RN RN ko1 Enma Larkin RN RN nj1 Mavis Adam ra3 HERO ARMANDO RN RN dd2 Corrections: (The following items were deleted from the chart) 09:49 09:40 PMHx: Hypertension; nj1 nj1 09:40 PMHx: Diabetes - NIDDM; nj1 nj1 09:40 PMHx: Hyperlipidemia; nj1 nj1 : 09:40 PMHx: Kidney stones; nj1 nj1 09:40 PMHx: Myocardial infarction; nj1 nj1 : 09:40 PMHx: Atrial fibrillation; nj1 nj1 : 09:40 PSHx: 3 heart stents; nj1 nj1 : 09:40 PSHx: Thyroidectomy; nj1 nj1 :49 09:40 PSHx: Cholecystectomy; nj1 nj1 09:53 09:51 PSHx: Stented artery; dd2 dd2
[2023-10-16 13:30] VITALS: BMI 26.9
[2023-10-16] MEDS ORDERED: GLUCAGON 1 MG/VIAL IM PRN (14:00)
[2023-10-16] MEDS ORDERED: D50W 25 GM/50 ML SYRINGE IV PRN (14:00)
[2023-10-16] MEDS: INSULIN REGULAR (HUMAN) 100 UNIT/ML SQ SCH (16:25)
[2023-10-16] MEDS: ENOXAPARIN 60 MG/0.6 ML SQ ONE (16:26)
[2023-10-17 06:12] LABS: Absolute Eosinophils 0.2 K/uL (0-0.5); Absolute Lymphocytes (CBC) 1.4 K/uL (0.7-4.9); Absolute Monocytes 0.5 K/uL (0.1-1.3); Basophils % 0.7 % (0-1.3); Eosinophils % 4.8 % (0-4.4); Hematocrit 32.9 % (36.0-45.0); Lymphocytes % 26.6 % (15.3-44.8); MCH 29.1 pg (27.0-35.0); MCHC 33.5 g/dL (32.0-36.0); MCV 86.9 fL (80-100); MPV 8.6 fL (7.6-11.3); Monocytes % 9.6 % (3.3-12.3); Neutrophils % 58.3 % (41.7-73.7); Nucleated Red Blood Cells % 0.1 % (0-0); Platelets 247 thou/uL (152-406); RBC Red Blood Cell Count 3.79 M/uL (3.86-4.86); Red Cell Distribution Width 14.7 % (12.1-15.2)
[2023-10-17 06:34] LABS: Anion Gap 7.2 mEq/L (5.0-15.0); Magnesium 1.7 mg/dL (1.6-2.4); Phosphorus 2.8 mg/dL (2.5-4.9); Potassium 4.2 mEq/L (3.5-5.1); Troponin High Sensitivity 36.3 pg/mL (<58.9)
[2023-10-17] MEDS: MAGNESIUM SULFATE 1 gm IVPB 1 GM/100 ML BAG IV ONE (08:27)
--- NOTE | 2023-10-17 09:05 | P.PN ---
Date of Service: 10/17/23 Subjective no reported chest pain Review of Systems Per HPI Physical Examination - Physical Exam Vital signs Reviewed General: Alert, In no apparent distress, Oriented x3, afebrile HEENT: Atraumatic, Normocephalic, PERRLA Neck: 2+ carotid pulse no bruit, JVD not distended Respiratory: Clear to auscultation bilaterally, Normal air movement Cardiovascular: Normal pulses, Regular rate/rhythm, pulmonary Capillary refill: <2 Seconds Gastrointestinal: Normal bowel sounds, Soft and benign Musculoskeletal: No clubbing, No swelling Integumentary: No rashes, No breakdown Neurological: Normal speech, Normal strength at 5/5 x4 extr Assessment and Plan - Plan Assessment and plan Chest pain rule out [place] NSTEMI Hypertension urgency CAD PCI x 3 History of [place] Watchman procedure Cardiology to consult, Trend troponins, She reports associated with nasuea, vomiting. Family is at bedside is primary historian reports she had chest pain, shoulder pain with associated nausea, vomiting today. She denies recent illness, no sick contacts, she is not on anticoagulation, she sees Dr Palmer. no reported shortness of breath, edema, plan to admit for chest pain, rule out [place], BPV, for cardiology to evaluate, EKG NRS rate [address] abnormality, BP 187 / 81; Pulse 81; Resp 16; Temp 98; Pulse Ox 100% on R/A; Pain 5/10; CT of the head no acute findings, neck CTA IMPRESSION: Short-segment intimal flap proximal left internal carotid artery Marked plaque proximal right internal carotid artery results in an approximately 80 percent stenosis lipid panel Diabetes mellitus type II Sliding scale insulin, Accu-Chek Full code DVT Lovenox 1mg/kg Diet cardiac disposition independent, resides with family Discharge Plan: Home - Advance Directives Does patient have a Living Will: No Does patient have a Durable POA for Healthcare: No - Code Status/Comfort Care Code Status: Full Code Critical Care: No Time Spent Managing Pts Care (In Minutes): 35 <Mendy Bolden - Last Filed: 10/17/23 17:46> Patient was seen and examined. Events of the last 24 hours have been noted. Spoke with with FRANCISCO regarding patient's clinical picture after evaluating and examining the patient independently. I performed a substantial part of the MDM during this patient's care today. I personally made or approved the documented management plan and acknowledge its risk of complications. I agree with the findings and documentation provided in the FRANCISCO's notes. Patient seen by Cardiology. Possible cardiac catheterization in AM <Curt Beltre - Last Filed: 10/18/23 04:21>
[2023-10-17] MEDS: ASPIRIN 81 MG CHEWABLE TABLET PO ONE (16:12)
--- NOTE | 2023-10-17 20:48 | CON ---
Date of Consultation: 10/17/2023 Reason For Consultation: Chest pain. History Of Present Illness: A 78-year-old female, history of coronary artery disease, diabetes, atri al fibrillation, hypertension, status post Watchman and multiple stents in the past, presented with n ausea, vomiting, and chest pressure, radiates to her neck and shoulder and chest pain comes and goes. At the present time, she is chest pain free. No shortness of breath. No nausea, vomiting, diarrhe a. Past Medical History: As outlined above in HPI. Medications: Refer reconciliation sheet for detailed list. Allergies: NO KNOWN DRUG ALLERGIES. Past Surgical History: Cardiac stent placement and Watchman placement. Family History: No premature coronary artery disease. Social History: Does not smoke or drink. Does not use any drugs. Review of Systems: All systems reviewed and they were negative except as mentioned in the HPI. Physical Examination: Vital Signs: Reviewed. Head and Neck: Pupils are equal, reactive to light. Intact eye movements. No JVD. No cervical lym phadenopathy. Neck: Supple. Thyroid is not enlarged. Lungs: Clear to auscultation bilaterally. No rhonchi, rales, or crackles. No accessory muscle use. Heart: Regular rate and rhythm. No extra sounds. Abdomen: Soft, nontender. Bowel sounds positive. No organomegaly. No rigidity or rebound. Extremities: No edema, clubbing, or cyanosis. Intact pulses. Skin: No rash. Neurologic: Alert, awake, oriented x3. No acute focal deficits appreciated. Investigations: Cardiac enzymes first 1 was 158 and trending down. BUN is 16, creatinine 0.76, and hemoglobin is 11. Assessment/recommendation: 1.Sff-SO-tpcylwcoc myocardial infarction. Troponin is trending down. Started on baby aspirin. She received 1 dose of Lovenox. Discontinue that and keep her n.p.o. past midnight. Plan for coronary angiogram tomorrow. 2.Atrial fibrillation and she appears to be in sinus. Continue home medication. She is status post left atrial appendage closure. 3.Diabetes. Check sugars 3 times a day. Cover with regular insulin per sliding scale. SR/MODL Voice ID: [id number] Report ID: [id number]
[2023-10-18] MEDS: ASPIRIN 81 MG CHEWABLE TABLET PO SCH (07:29)
[2023-10-18] MEDS: NA CHLORIDE 0.9% 500 ML ONE (09:46)
[2023-10-18] MEDS ORDERED: HEPA 1000U/500MLS 2,000 UNIT/1,000 ML BAG IV ONE (10:45)
[2023-10-18] MEDS ORDERED: MIDAZOLAM HCL 2 MG/2 ML INJ ONE (10:45)
[2023-10-18] MEDS ORDERED: LIDOCAINE 1% 20 ML MDV ONE (10:45)
[2023-10-18] MEDS ORDERED: HEPARIN 5000 UNIT/ML 1 ML VIAL ONE (10:46)
[2023-10-18] MEDS ORDERED: ATROPINE SULF 1 MG/10 ML SYR IV ONE (10:46)
[2023-10-18] MEDS ORDERED: FENTANYL CITR 100 MCG/2 ML ONE (10:46)
[2023-10-18] MEDS ORDERED: HEPARIN 10,000 UNIT/10 ML VIAL IV ONE (10:46)
[2023-10-18] MEDS ORDERED: CLOPIDOGREL 75 MG TABLET ONE (10:46)
[2023-10-18] MEDS ORDERED: TICAGRELOR 90 MG TABLET PO ONE (10:46)
[2023-10-18] MEDS ORDERED: ASPIRIN 325 MG TAB ONE (10:47)
--- NOTE | 2023-10-18 12:22 | P.PN ---
Subjective Date of Service: 10/18/23 Chief Complaint: Chest pain Pt is resting comfortably in bed. He denies any chest pain or SOB. Cardiology will do Cardiac cath today. Troponin is trending down. No other complaints. Review of Systems General: Unremarkable Eyes: Unremarkable ENT: Unremarkable Respiratory: Unremarkable Cardiovascular: Chest Pain Gastrointestinal: Unremarkable Genitourinary: Unremarkable Musculoskeletal: Unremarkable Integumentary: Unremarkable Neurological: Unremarkable Lymphatics: Unremarkable Physical Examination - Vital Signs Temperature: 97.1 F Blood Pressure: 159/70 Pulse: 71 Respirations: 12 Pulse Ox (%): 98 - Physical Exam General: Alert, In no apparent distress, Oriented x3 HEENT: Atraumatic, Normocephalic, PERRLA Neck: Supple, 2+ carotid pulse no bruit, JVD not distended Respiratory: Clear to auscultation bilaterally, Normal air movement Cardiovascular: No edema, Normal pulses, Regular rate/rhythm, Normal S1 S2 Capillary refill: <2 Seconds Gastrointestinal: Normal bowel sounds, Soft and benign, Non-distended Musculoskeletal: No clubbing, No swelling Integumentary: No rashes, No breakdown, No significant lesion Neurological: Normal gait, Normal speech, Normal strength at 5/5 x4 extr Lymphatics: No axilla or inguinal lymphadenopathy Assessment And Plan - Plan NSTEMI: Toponin is trening down ( 36 <- 56 <- 111). Continue lovenox subq BID. Cardiology is following. Will do cardiac cath. Hypertension urgency: Continue home meds. History CAD s/p [place]: Continue home meds. Right Carotid stenosis: CTA IMPRESSION: Short-segment intimal flap proximal left internal carotid artery Marked plaque proximal right internal carotid artery results in an approximately 80 percent stenosis. Will need evaluation by a vascular surgeon. Diabetes mellitus type II: Will continue accuchek, SSI and ADA diet. Code: Full code DVT ppx: Lovenox Dispo: Pending hospital course.
--- NOTE | 2023-10-18 12:35 | P.PN ---
Subjective Date of Service: 10/18/23 Chief Complaint: Chest pain Subjective: No new changes, No C/O voiced, Tolerating diet, Ambulating, Improving Review of Systems 10-point ROS is otherwise unremarkable Physical Examination - Vital Signs Temperature: 97.1 F Blood Pressure: 159/70 Pulse: 71 Respirations: 12 Pulse Ox (%): 98 - Physical Exam General: Alert, In no apparent distress HEENT: Atraumatic, PERRLA, EOMI Neck: Supple, JVD not distended Respiratory: Clear to auscultation bilaterally, Normal air movement Cardiovascular: Regular rate/rhythm, Normal S1 S2 Gastrointestinal: Normal bowel sounds, No tenderness Musculoskeletal: No tenderness Integumentary: No rashes Neurological: Normal speech, Normal tone, Normal affect Lymphatics: No axilla or inguinal lymphadenopathy - Studies Medications List Reviewed: Yes Assessment And Plan - Current Problems (Diagnosis) (1) Atrial fibrillation Current Visit: No Status: Acute Plan: continue sotalol 80 mg po BID continue ASA 81 mg daily start plavix 75 mg daily (2) Coronary artery disease Current Visit: No Status: Chronic Plan: coronary angiogram done today and shows severe calcified 70% proximal LAD disease with patent stents plan is for outpatient PCI in [place] with shockwave ASA 81 mg daily start Plavix 75 mg daily continue lipitor Qualifiers: Coronary Disease-Associated Artery/Lesion type: [place] artery [place] vs. transplanted heart: [place] heart Associated angina: without angina Qualified Code(s): I25.10 - Atherosclerotic heart disease of [place] coronary artery without angina pectoris (3) Hypertension Current Visit: No Status: Chronic Plan: continue patient home BP medications Qualifiers: Hypertension type: primary hypertension Qualified Code(s): I10 - Essential (primary) hypertension
--- NOTE | 2023-10-18 13:51 | EKG ---
Test Date: 2023-10-16 Test Time: 08:10:48 Switchboard Operator Receptionist: MEASUREMENT RESULTS: Intervals: Rate: 85 MN: 174 QRSD: 78 QT: 390 QTc: 464 [place]: P: 54 MN: 174 QRS: 81 T: 90 INTERPRETIVE STATEMENTS: Normal sinus rhythm Nonspecific ST abnormality Abnormal ECG Compared to ECG 08/15/2023 18:11:55 ST (T wave) deviation now present Electronically Signed On 10-18-23 13:46:41 CDT by Delmer Palmer
[2023-10-18 14:03] VITALS: O2SAT 95
--- NOTE | 2023-10-18 15:24 | P.DS ---
Admission Date: 10/17/23 Discharge Date: 10/18/23 Disposition: ROUTINE DISCHARGE Discharge Condition: GOOD Reason for Admission: Chest pain Brief History of Present Illness: 78 yrs old Female with past medical history of Hypertensive disorder; Diabetes mellitus; Myocardial infarction, PCI x3, Watchman procedure presents to the Emergency department with chest pain. She reports associated with nasuea, vomiting. Family is at bedside is primary historian reports she had chest pain, shoulder pain with associated nausea, vomiting today. She denies recent illness, no sick contacts, she is not on anticoagulation, she sees Dr Palmer. no reported shortness of breath, edema, plan to admit for chest pain, rule out [place], BPV, for cardiology to evaluate, EKG NRS rate [address] abnormality, BP 187 / 81; Pulse 81; Resp 16; Temp 98; Pulse Ox 100% on R/A; Pain 5/10; CT of the head no acute findings, neck CTA IMPRESSION: Short-segment intimal flap proximal left internal carotid artery Marked plaque proximal right internal carotid artery results in an approximately 80 percent stenosis Hospital Course: Pt is a 78 yo female with past medical history of Hypertensive disorder, Diabetes mellitus, CAD s/p Myocardial infarction, PCI x3, Watchman procedure who presented with chest pain. It was associated with nasuea, vomiting and shoulder pain. EKG showed nonspecific ST abnormality, CT of the head no acute findings, CTA neck showed a short-segment intimal flap proximal left internal carotid artery Marked plaque proximal right internal carotid artery results in an approximately 80 percent stenosis. We trended troponin ( 36 <- 56 <- 111) and kept her NPO and Cardiology did cardiac cath which showed severe calcified 70% proximal LAD disease with patent stents. Pt will follow up at [place] for PCI with shockbanner. We advised pt to continue plavix and aspirin for at least 1 year. We optimized BP regimen. Pt was advised to follow up with a vascular surgeon for the right carotid stenosis. We continued home meds for other chronic medical problems. Pt was in NAD prior to discharge. Vital Signs/Physical Exam: Temp Pulse Resp BP Pulse Ox 97.1 F 63 18 120/48 L 98 10/18/23 12:34 10/18/23 13:30 10/18/23 13:30 10/18/23 13:30 10/18/23 12:34 Laboratory Data at Discharge: WBC 5.20 thou/uL (4.3-10.9) 10/17/23 05:10 Hgb 11.0 g/dL (12.0-15.0) L D 10/17/23 05:10 Hct 32.9 % (36.0-45.0) L 10/17/23 05:10 Plt Count 247 thou/uL (152-406) 10/17/23 05:10 PT 10.4 SECONDS (9.4-12.5) 10/16/23 08:09 INR 0.93 10/16/23 08:09 Sodium 139 mEq/L (136-145) 10/17/23 05:10 Potassium 4.2 mEq/L (3.5-5.1) 10/17/23 05:10 BUN 16 mg/dL (7-18) 10/17/23 05:10 Creatinine 0.76 mg/dL (0.55-1.02) 10/17/23 05:10 Glucose 132 mg/dL (74-106) H 10/17/23 05:10 Phosphorus 2.8 mg/dL (2.5-4.9) 10/17/23 05:10 Magnesium 1.7 mg/dL (1.6-2.4) 10/17/23 05:10 Total Bilirubin 0.3 mg/dL (0.2-1.0) 10/16/23 08:09 AST 15 U/L (15-37) 10/16/23 08:09 ALT 27 U/L (13-56) 10/16/23 08:09 Alkaline Phosphatase 95 U/L (45-117) 10/16/23 08:09 Triglycerides 128 mg/dL (<150) 10/16/23 11:20 Cholesterol 161 mg/dL (<200) 10/16/23 11:20 HDL Cholesterol 43 mg/dL (40-60) 10/16/23 11:20 Cholesterol/HDL Ratio 3.74 10/16/23 11:20 Lipase 37 U/L (13-75) 10/16/23 08:09 Home Medications: ALPRAZolam [Xanax*] 0.25 mg PO DAILY 06/07/23 Amlodipine [Norvasc*] 5 mg PO DAILY 06/07/23 Atorvastatin Calcium [Lipitor] 40 mg PO DAILY 06/07/23 Celecoxib 200 mg PO BID 06/07/23 Furosemide [Lasix*] 20 mg PO DAILY 06/07/23 Insulin Glargine,Hum.rec.anlog [Basaglar Kwikpen U-100] 35 units SQ BEDTIME 06/07/23 Lisinopril [Zestril] 20 mg PO DAILY 06/07/23 Metformin HCl [Glucophage*] 1,000 mg PO BID 06/07/23 Pantoprazole [Protonix Tab*] 40 mg PO DAILY 06/07/23 Cephalexin 500 mg PO Q8H 08/14/23 Ferrous Sulfate [Ferrous Sulfate*] 325 mg PO DAILY 08/14/23 Meclizine HCl 12.5 mg PO PRN PRN 08/14/23 Aspirin [Aspirin EC 81 MG] 81 mg PO DAILY #320 tab 08/15/23 Sotalol HCl [Betapace*] 80 mg PO BID 6AM 6PM #60 tab 08/15/23 Amox/Clavulanate [Augmentin 875-125 Tab*] 1 each PO BID #14 tab 08/16/23 Clopidogrel Bisulfate [Plavix] 75 mg PO DAILY 90 Days #90 tab 10/18/23 New Medications: Clopidogrel Bisulfate [Plavix] 75 mg PO DAILY 90 Days #90 tab Physician Discharge Instructions: Continue ad heather activity. Take home meds as prescribed. Take aspirin and plavix as prescribed for at least 1 year. Follow up with [facility] Operator in [place] for stent placement. Follow up with PCP within 2 weeks. Diet: AHA Activity: Ad heather Followup: Kenan Velazquez DO [Primary Care Provider] -
[2023-10-18 16:16] VITALS: BP 156/81; TEMP 97.4
--- NOTE | 2023-10-19 18:57 | OP ---
Date of Procedure: 10/18/2023 Surgeon: Prieto Havrey Procedures Performed: 1.Left heart catheterization. 2.Selective coronary angiogram. Indication For Procedure: Unstable angina. Complications: None. Estimated Blood Loss: Less than 50 cc. Sedation Time: 20 minutes with 2 of Versed and 50 of fentanyl. Access: Right radial, closed by TR band. Description Of Procedure: After risks, and benefits, and alternatives were explained to the patient, patient agreed to proceed with the procedure and signed informed consent. The patient was brought [facility] to the label coder, prepped and draped in a sterile fashion. A time-out was performed and sedation was administered. Next, an ultrasound-guided right radial access was obtained. A [place] 4.0 catheter was advanced over the J-wire into the LV cavity. LVEDP was obtained. Pullback did not show any gra dient. Same catheter was used for selective angiogram on the left and right coronary systems. At th e end of the procedure, catheter was removed over a J-wire. The sheath was removed. TR band was milagro lied, and the patient was moved back to recovery in stable condition. Findings: 1.Left main; ostial 40% disease. 2.LAD; proximal calcified 70% to 80% disease followed by mid stent that is patent with distal mild l uminal irregularities. 3.Left circ; mild luminal irregularities. 4.RCA; mild luminal irregularities. 5.OM1 stent patent. 6.OM2 stent patent. 7.LVEDP 7 mmHg. Assessment And Plan: 1.Significant calcified proximal LAD disease. 2.The patient will need staged PCI of the LAD with shockwave and that is going to be done in [facility]. 3.Continue aggressive medical treatment for CAD, meanwhile. BOCANEGRA/MODL Voice ID: [id number] Report ID: [id number]
== END 2023-10-18 16:30 | disposition home or self-care (01) | DRG 282 ==
LOC: ER 07:49 → ERHOLD 10:05 → 4TH 11:13 → OBSVTOIN 10-17 20:01
PROVIDERS: ADMIT Hospitalist; ATTEND Hospitalist
PROC: 4A023N7 Measurement of Cardiac Sampling and Pressure, Left Heart, Percutaneous Approach (ICD-10-PCS; principal; 2023-10-18)
PROC: B2111ZZ Fluoroscopy of Multiple Coronary Arteries using Low Osmolar Contrast (ICD-10-PCS; 2023-10-18)
DX: I21.4 Non-ST elevation (NSTEMI) myocardial infarction (principal); I16.0 Hypertensive urgency; E11.9 Type 2 diabetes mellitus without complications; I10 Essential (primary) hypertension; E78.5 Hyperlipidemia, unspecified; K59.00 Constipation, unspecified; I48.91 Unspecified atrial fibrillation; E83.42 Hypomagnesemia; H81.393 Other peripheral vertigo, bilateral; K21.9 Gastro-esophageal reflux disease without esophagitis; I25.10 Atherosclerotic heart disease of native coronary artery without angina pectoris; I25.2 Old myocardial infarction; Z79.4 Long term (current) use of insulin; Z95.1 Presence of aortocoronary bypass graft; Z95.5 Presence of coronary angioplasty implant and graft; Z79.02 Long term (current) use of antithrombotics/antiplatelets; Z90.49 Acquired absence of other specified parts of digestive tract; Z79.899 Other long term (current) drug therapy
CPT/HCPCS: 36415; 70450; 70496; 70498; 71045; 71250; 74176; 76937; 80048; 80061; 80076; 81001; 82947; 83690; 83735; 83880; 84100; 84484; 85025; 85610; 93005; 93458; 93880; 96361; 96374; 96375; 99152; 99153; 99285; C1893; G0378; J0461; J1644; J1650; J2001; J2250; J2405; J2550; J3010; J3475; J7030; J7040; J8597; Q9967

== ENCOUNTER 2024-02-13 16:33 | Inpatient (IN) | payer OTHER ==
--- NOTE | 2024-02-13 17:44 | RAD REPORT ---
EXAM: Chest Single View HISTORY: CHEST PAIN COMPARISON: 10/16/2023 FINDINGS: LUNGS/PLEURA: The lungs are clear. No pleural effusions or pneumothorax. No pulmonary edema. MEDIASTINUM: The mediastinal silhouette is within normal limits. CARDIAC: The cardiac silhouette is within normal limits. UPPER ABDOMEN: No significant abnormality. BONES: No acute fracture. LINES/TUBES/OTHER: N/A IMPRESSION: No evidence of acute cardiopulmonary disease.
[2024-02-13 18:27] LABS: Absolute Basophils 0.1 K/uL (0-0.5); Absolute Eosinophils 0.3 K/uL (0-0.5); Absolute Lymphocytes (CBC) 1.4 K/uL (0.7-4.9); Absolute Monocytes 0.4 K/uL (0.1-1.3); Absolute Neutrophil 2.6 K/uL (1.8-8.0); Basophils % 1.1 % (0-1.3); Eosinophils % 6.9 % (0-4.4); Hematocrit 36.3 % (36.0-45.0); Hemoglobin 11.7 g/dL (12.0-15.0); Lymphocytes % 29.3 % (15.3-44.8); MCH 27.8 pg (27.0-35.0); MCHC 32.2 g/dL (32.0-36.0); MCV 86.2 fL (80-100); MPV 8.3 fL (7.6-11.3); Monocytes % 8.8 % (3.3-12.3); Neutrophils % 53.9 % (41.7-73.7); Nucleated Red Blood Cells % 0.1 % (0-0); PT Prothrombin Time 11.2 SECONDS (9.4-12.5); Platelets 271 thou/uL (152-406); RBC Red Blood Cell Count 4.21 M/uL (3.86-4.86); Red Cell Distribution Width 14.5 % (12.1-15.2)
[2024-02-13 18:52] LABS: Albumin 3.5 g/dL (3.4-5.0); Albumin/Globulin Ratio 0.8 (1.1-1.8); Anion Gap 10.8 mEq/L (5.0-15.0); Bilirubin Total 0.2 mg/dL (0.2-1.0); Globulin 4.4 g/dL (2.3-3.5); Potassium 3.8 mEq/L (3.5-5.1); Protein, Total 7.9 g/dL (6.4-8.2); Troponin High Sensitivity 5.5 pg/mL (<58.9)
--- NOTE | 2024-02-13 19:00 | ER ---
Nurse's Notes [facility] Name: Rena Reddy Age: 78 yrs Sex: Female : 1945 Arrival Date: 02/13/2024 Time: 16:33 Bed 13 Private MD: Diagnosis: Chest pain, unspecified Presentation: 02/12 16:54 Chief complaint: Patient states: mid-sternal chest pain and upper back pain that began aa5 1-2 hrs [employer], pt describes pain as pressure. 16:54 Acuity: JULES 2 aa5 16:54 Method Of Arrival: Ambulatory aa5 16:54 Coronavirus screen: At this time, the client does not indicate any symptoms associated aa5 with coronavirus-19. Ebola Screen: Patient denies travel to an Ebola-affected area in the 21 days before illness onset. Initial Sepsis Screen: Does the patient meet any 2 criteria? No. Patient's initial sepsis screen is negative. Does the patient have a suspected source of infection? No. Patient's initial sepsis screen is negative. Risk Assessment: Do you want to hurt yourself or someone else? Patient reports no desire to harm self or others. Onset of symptoms was February 13, 2024. Historical: - Allergies: 16:54 NKDA; aa5 - PMHx: 16:54 diabetes mellitus; Hypertensive disorder; Myocardial infarction; aa5 - PSHx: 16:54 cardiac stents; watchman; aa5 - Immunization history:: Adult Immunizations unknown. - Infectious Disease History:: Denies. - Social history:: Smoking status: Patient denies any tobacco usage or history of. Screenin:00 [facility] ED Fall Risk Assessment (Adult) History of falling in the last 3 months, rs5 including since admission No falls in past 3 months (0 pts) Confusion or Disorientation No (0 pts) Intoxicated or Sedated No (0 pts) Impaired Gait No (0 pts) Mobility Assist Device Used No (0 pt) Altered Elimination No (0 pt) Score/Fall Risk Level 0 - 2 = Low Risk Oriented to surroundings, Maintained a safe environment. Abuse screen: Denies threats or abuse. Nutritional screening: No deficits noted. Tuberculosis screening: No symptoms or risk factors identified. Assessment: 16:55 General: Appears in no apparent distress. uncomfortable, Behavior is calm, cooperative. rs5 Pain: Complains of pain in chest Pain does not radiate. Pain currently is 3 out of 10 on a pain scale. Quality of pain is described as aching, Pain began 2 hours ago. Neuro: Level of Consciousness is awake, alert, obeys commands, Oriented to person, place, time, situation. Cardiovascular: Patient's skin is warm and dry. Respiratory: Airway is patent Respiratory effort is even, unlabored, Respiratory pattern is regular, symmetrical. GI: Abdomen is round non-distended, Abd is soft and non tender X 4 quads. : No signs and/or symptoms were reported regarding the genitourinary system. EENT: No signs and/or symptoms were reported regarding the EENT system. 18:01 Reassessment: Patient and/or family updated on plan of care and expected duration. Pain rs5 level reassessed. Patient is alert, oriented x 3, equal unlabored respirations, skin warm/dry/pink. 18:55 Reassessment: Patient and/or family updated on plan of care and expected duration. Pain rs5 level reassessed. Patient is alert, oriented x 3, equal unlabored respirations, skin warm/dry/pink. Vital Signs: 16:54 BP 139 / 82; Pulse 88; Resp 16 S; Temp 98(O); Pulse Ox 99% on R/A; Weight 62.14 kg (R); aa5 Height 5 ft. 0 in. (R); 18:01 BP 127 / 71; Pulse 77; Resp 17; Pulse Ox 98% on R/A; rs5 18:40 BP 133 / 79; Pulse 80; Resp 17; Pulse Ox 99% on R/A; rs5 20:44 BP 158 / 55; Pulse 61; Resp 15; Temp 98.3; Pulse Ox 93% on R/A; Pain 0/10; bm8 16:54 Body Mass Index 26.76 (62.14 kg, 152.4 cm) aa5 20:44 Pain Scale: Adult bm8 [place] Coma Score: 20:44 Eye Response: spontaneous(4). Motor Response: obeys commands(6). Verbal Response: bm8 oriented(5). Total: 15. ED Course: 16:42 Patient arrived in ED. mg5 16:53 Marshall Gregg FNP-C is [facility]. dr5 16:53 Reji Quintanilla MD is Attending Physician. dr5 16:54 Triage completed. aa5 16:54 Arm band placed on. aa5 17:00 Patient has correct armband on for positive identification. Placed in gown. Bed in low rs5 position. Call light in reach. Side rails up X2. Client placed on continuous cardiac and pulse oximetry monitoring. NIBP monitoring applied. business analysis specialist on. Pulse ox on. NIBP on. 17:00 No provider procedures requiring assistance completed. Inserted saline lock: 22 gauge rs5 in right antecubital area, using aseptic technique. Blood collected. Flushed with 10 mL NS. Patient maintains SpO2 saturation greater than 95% on room air. 17:02 EKG completed in triage. Results shown to MD. aa5 17:40 XRAY Chest (1 view) In Process Unspecified. EDMS 18:00 Stanley Soni, PADMA is Primary Nurse. rs5 18:40 Provided Education on: need for admit. rs5 18:59 Daniel Chávez MD is Hospitalizing Provider. dr5 20:44 Patient admitted, IV remains in place. bm8 21:04 Inserted saline lock: 22 gauge in right hand, using aseptic technique. IV discontinued, bm8 intact, bleeding controlled, No redness/swelling at site. Pressure dressing applied, 22g RAC infiltrated, dc iv, 22g right hand remains. Administered Medications: 19:52 Drug: Ondansetron IVP 4 mg IVP once; over 2 minutes Route: IVP; Site: right antecubital;bm8 21:04 Follow up: Response: No adverse reaction bm8 19:53 Drug: morphine IVP or IV 2 mg IVP once over 4 mins Route: IVP; Infused Over: 4 mins; bm8 Site: right antecubital; 21:04 Follow up: Response: No adverse reaction bm8 Medication: 19:33 VIS not applicable for this client. rs5 Outcome: 19:00 Decision to Hospitalize by Provider. dr5 20:44 Admitted to Tele accompanied by nurse, via wheelchair, room 417, with chart, bm8 20:44 Condition: stable 20:44 Instructed on the need for admit, medication usage, Demonstrated understanding of instructions, follow-up care, medications, 21:26 Patient left the ED. bm8 Signatures: Dispatcher [employer] [facility] Zonia Wall RN RN aa5 Stanley Soni, RN RN rs5 Aida Yeboah5 Toni Angelo, RN RN bm8 Marshall Gregg, CONTROL AREA OPERATOR-C CONTROL AREA OPERATOR-Cdr5
--- NOTE | 2024-02-13 19:00 | EDPHYS ---
Physician Documentation [facility] Name: Rena Reddy Age: 78 yrs Sex: Female : 1945 Arrival Date: 02/13/2024 Time: 16:33 Bed 13 Private MD: ED Physician Reji Quintanilla HPI: 02/12 16:53 This 78 yrs old Female presents to ER via Ambulatory with complaints of Chest dr5 Pain. 16:53 Onset: The symptoms/episode began/occurred just prior to arrival. Pt reports chest pain dr5 / pressure that started 30 minutes prior to arrival. PMH: 4 cardiac stents, DM, HTN, NC. Pt states her chest pressure started in the center of her chest and now her back is also hurting in between her shoulder blades. She denies pain going through from chest to back.. Historical: - Allergies: 16:54 NKDA; aa5 - PMHx: 16:54 diabetes mellitus; Hypertensive disorder; Myocardial infarction; aa5 - PSHx: 16:54 cardiac stents; watchman; aa5 - Immunization history:: Adult Immunizations unknown. - Infectious Disease History:: Denies. - Social history:: Smoking status: Patient denies any tobacco usage or history of. ROS: 16:53 Constitutional: as per hpi dr5 Exam: 16:53 Constitutional: This is a well developed, well nourished patient who is awake, alert, dr5 and in no acute distress. Head/Face: Normocephalic, atraumatic. Eyes: Pupils equal round and reactive to light, extra-ocular motions intact. Lids and lashes normal. Conjunctiva and sclera are non-icteric and not injected. Cornea within normal limits. Periorbital areas with no swelling, redness, or edema. Respiratory: Lungs have equal breath sounds bilaterally, clear to auscultation. No rales, rhonchi or wheezes noted. No increased work of breathing, no retractions or nasal flaring. Skin: Warm, dry with normal turgor. Normal color with no rashes, no lesions, and no evidence of cellulitis. Vital Signs: 16:54 BP 139 / 82; Pulse 88; Resp 16 S; Temp 98(O); Pulse Ox 99% on R/A; Weight 62.14 kg (R); aa5 Height 5 ft. 0 in. (R); 18:01 BP 127 / 71; Pulse 77; Resp 17; Pulse Ox 98% on R/A; rs5 18:40 BP 133 / 79; Pulse 80; Resp 17; Pulse Ox 99% on R/A; rs5 20:44 BP 158 / 55; Pulse 61; Resp 15; Temp 98.3; Pulse Ox 93% on R/A; Pain 0/10; bm8 16:54 Body Mass Index 26.76 (62.14 kg, 152.4 cm) aa5 20:44 Pain Scale: Adult bm8 [place] Coma Score: 20:44 Eye Response: spontaneous(4). Motor Response: obeys commands(6). Verbal Response: bm8 oriented(5). Total: 15. MDM: 16:58 Medical Screening Exam initiated dr5 19:03 Differential diagnosis: viral Infection, STEMI, NSTEMI, Unstable Angina. Data reviewed: dr5 vital signs, nurses notes, lab test result(s), EKG, radiologic studies. Consideration of Admission/Observation Patient was admitted/placed on observation. Historians other than the Patient: Daughter/Son: Daughter. Care significantly affected by the following chronic conditions: Diabetes, Hypertension, NC. Care significantly affected by the following Social Determinants of Health: Poor access to healthcare and/or lack of insurance, Poor access to transportation, Problems related to employment. Counseling: I had a detailed discussion with the patient and/or guardian regarding the historical points, exam findings, and any diagnostic results supporting the discharge/admit diagnosis, the presence of at least one elevated blood pressure reading (>120/80) during this emergency department visit, lab results, radiology results, the need for further work-up and treatment in the hospital. ED course: Patient will be admitted to Dr. Chávez for observation. First troponin was normal. Normal chest x-ray. Discussed with patient and daughter need for admission. All questions answered.. 02/12 16:56 Order name: CBC with Diff; Complete Time: 18:30 dr5 02/12 16:56 Order name: NT PRO-BNP; Complete Time: 18:52 dr5 02/12 16:56 Order name: PT-INR; Complete Time: 18:30 dr5 02/12 16:56 Order name: Troponin HS; Complete Time: 18:52 dr5 02/12 16:56 Order name: CMP; Complete Time: 18:52 dr5 02/12 19:24 Order name: Urinalysis w/ reflexes EDMS 02/12 19:25 Order name: CBC with Automated Diff EDMS 02/12 19:25 Order name: CBC with Automated Diff EDMS 02/12 19:25 Order name: Comprehensive Metabolic Panel EDMS 02/12 19:25 Order name: Comprehensive Metabolic Panel EDMS 02/12 19:25 Order name: Troponin High Sensitivity EDMS 02/12 19:25 Order name: Troponin High Sensitivity; Complete Time: 20:31 EDMS 02/12 19:25 Order name: Troponin High Sensitivity EDMS 02/12 19:25 Order name: Troponin High Sensitivity EDMS 02/12 16:56 Order name: XRAY Chest (1 view); Complete Time: 17:50 dr5 02/12 16:56 Order name: EKG; Complete Time: 16:57 dr5 02/12 16:56 Order name: Cardiac monitoring; Complete Time: 18:22 dr5 02/12 16:56 Order name: EKG - Nurse/Tech; Complete Time: 17:02 dr5 02/12 16:56 Order name: IV Saline Lock; Complete Time: 18:22 dr5 02/12 16:56 Order name: Labs collected and sent; Complete Time: 18:22 dr5 02/12 16:56 Order name: O2 Per Protocol; Complete Time: 18:22 dr5 02/12 16:56 Order name: O2 Sat Monitoring; Complete Time: 18:22 dr5 02/12 19:28 Order name: Misc. Order: 1930 Trop draw lab printed labels; Complete Time: 21:04 sp EC:01 Rate is 77 beats/min. Rhythm is regular. QRS [place] is Normal. NM interval is normal at dr5 174 msec. QRS interval is normal at 72 msec. QT interval is normal at 410 msec. Administered Medications: 19:52 Drug: Ondansetron IVP 4 mg IVP once; over 2 minutes Route: IVP; Site: right antecubital;bm8 21:04 Follow up: Response: No adverse reaction bm8 19:53 Drug: morphine IVP or IV 2 mg IVP once over 4 mins Route: IVP; Infused Over: 4 mins; bm8 Site: right antecubital; 21:04 Follow up: Response: No adverse reaction bm8 Disposition Summary: 02/13/24 19:00 Hospitalization Ordered Notes: Hospitalization Status: Observation dr5 Provider: Daniel Chávez Location: Telemetry/MedSurg (observation) dr5 Condition: Stable dr5 Problem: new dr5 Symptoms: are unchanged dr5 Bed/Room Type: Standard dr5 Room Assignment: 402(02/13/24 20:16) sp Diagnosis - Chest pain, unspecified dr5 Forms: - Medication Reconciliation Form dr5 - SBAR form dr5 - Leadership Thank You Letter dr5 Signatures: Dispatcher [employer] EDMS Adriane Silva sp Zonia Wall, RN RN aa5 Toni Angelo RN RN bm8 Marshall Gregg, BLASTING MINER-C BLASTING MINER-Cdr5 Corrections: (The following items were deleted from the chart) 16:57 16:57 CBC+H.LAB.BRZ ordered. EDMS EDMS 16:57 16:57 PROBNP+C.LAB.BRZ ordered. EDMS EDMS 16:57 16:57 PROTIME (+INR)+COAG.LAB.BRZ ordered. EDMS EDMS 16:57 16:57 Troponin High Sensitivity+C.LAB.BRZ ordered. EDMS EDMS 16:57 16:57 COMPREHENSIVE METABOLIC PANEL+C.LAB.BRZ ordered. EDMS EDMS 17:16 16:53 Pt reports chest pain / pressure that started 30 minutes prior to arrival. PMH: 4 dr5 cardaic stents. dr5 17:16 16:53 This 78 yrs old Female presents to ER via Unassigned with complaints of dr5 Chest Pain. dr5 20:16 19:00 dr5 sp
--- NOTE | 2024-02-13 19:19 | P.HP ---
Certification for Inpatient Patient admitted to: Observation With expected LOS: <2 Midnights Practitioner: I am a practitioner with admitting privileges, knowledge of patient current condition, hospital course, and medical plan of care. Services: Services provided to patient in accordance with Admission requirements found in Title 42 Section 412.3 of the Code of Federal Regulations Patient History Date of Service: 02/13/24 Reason for admission: CP History of Present Illness: 78 yrs old Female with past medical history of diabetes, hypertension, CAD, status post cardiac stents history of watchman's procedure who was brought to ER with chest pain. Located retrosternally pressure-like feeling. Radiating to the shoulder blades, 4 out of 10 in severity, no fever or chills. No sick contacts. Denies any nausea vomiting or diarrhea. No diaphoresis. No change of pain with movements or exercise. Patient was assessed in the ER and is admitted for further management of chest pain to rule out ACS Allergies No Known Drug Allergies Allergy (Verified 06/07/23 00:04) Unknown Home medications list reviewed: Yes Home Medications: ALPRAZolam [Xanax*] 0.25 mg PO DAILY 06/07/23 Amlodipine [Norvasc*] 5 mg PO DAILY 06/07/23 Atorvastatin Calcium [Lipitor] 40 mg PO DAILY 06/07/23 Celecoxib 200 mg PO BID 06/07/23 Furosemide [Lasix*] 20 mg PO DAILY 06/07/23 Insulin Glargine,Hum.rec.anlog [Basaglar Kwikpen U-100] 35 units SQ BEDTIME 06/07/23 Lisinopril [Zestril] 20 mg PO DAILY 06/07/23 Metformin HCl [Glucophage*] 1,000 mg PO BID 06/07/23 Pantoprazole [Protonix Tab*] 40 mg PO DAILY 06/07/23 Cephalexin 500 mg PO Q8H 08/14/23 Ferrous Sulfate [Ferrous Sulfate*] 325 mg PO DAILY 08/14/23 Meclizine HCl 12.5 mg PO PRN PRN 08/14/23 Aspirin [Aspirin EC 81 MG] 81 mg PO DAILY #320 tab 08/15/23 Sotalol HCl [Betapace*] 80 mg PO BID 6AM 6PM #60 tab 08/15/23 Amox/Clavulanate [Augmentin 875-125 Tab*] 1 each PO BID #14 tab 08/16/23 Clopidogrel Bisulfate [Plavix] 75 mg PO DAILY 90 Days #90 tab 10/18/23 - Past Medical/Surgical History Diabetic: Yes Past Medical History: Reviewed- Non-Contributory -: HTN -: Type 2 diabetes -: Coronary artery disease -: Nephrolithiasis -: GERD -: Hyperlipidemia -: Kidney stone Past Surgical History: Reviewed- Non-Contributory -: Thyroidectomy -: Stent in LAD (03/2014) -: Cholecystectomy -: Extraction of nephrolithiasis -: Watchman Psychosocial/ Personal History: Patient lives at home with her daughter. - Family History Father -: Heart disease, Hypertension, Diabetes, Stroke Mother -: Heart disease, Diabetes Sister -: Hypertension, Diabetes, Cancer Notes: breast cancer Brother -: Heart disease, Stroke - Social History Smoking Status: Never smoker Alcohol use: No CD- Drugs: No Caffeine use: Yes Review of Systems 10-point ROS is otherwise unremarkable Physical Examination - Vital Signs Temperature: 97.2 F Blood Pressure: 138/72 Pulse: 76 Respirations: 18 Pulse Ox (%): 94 - Physical Exam General: Alert, In no apparent distress, Oriented x3 HEENT: Atraumatic, Normocephalic Neck: Supple, No Thyromegaly Respiratory: Clear to auscultation bilaterally, Normal air movement Cardiovascular: Regular rate/rhythm, Normal S1 S2 Capillary refill: <2 Seconds Gastrointestinal: Soft and benign, W/out hepatosplenomegaly Musculoskeletal: No clubbing, No swelling Integumentary: No rashes Neurological: Normal speech, Normal strength at 5/5 x4 extr Lymphatics: No axilla or inguinal lymphadenopathy - Studies Laboratory Data (last 24 hrs) 02/13/24 02/13/24 02/13/24 18:10 18:10 18:10 WBC 4.90 Hgb 11.7 L Hct 36.3 Plt Count 271 PT 11.2 INR 1.00 Sodium 139 Potassium 3.8 BUN 19 H Creatinine 0.87 Glucose 282 H Total Bilirubin 0.2 AST 13 L ALT 18 Alkaline Phosphatase 90 Assessment and Plan - Plan Chest pain to rule out ACS Will trend cardiac enzymes Will monitor telemetry Started on aspirin and statin EKG did not show any acute changes suggestive of ischemia Will get an echocardiogram Cardiology consult Hypertension Antihypertensives titrated Continue home medications and titrate as needed Hyperlipidemia Continue statin Diabetes Insulin sliding scale Accu-Chek before every meal and at bedtime History of CAD Status post stents Cardiology evaluation GI/DVT prophylaxis Advanced directive full code Discharge Plan: Home Plan to discharge in: 48 Hours - Advance Directives Does patient have a Living Will: No Does patient have a Durable POA for Healthcare: No - Code Status/Comfort Care Code Status: Full Code Time Spent Managing Pts Care (In Minutes): 47
[2024-02-13] MEDS ORDERED: ACETAMINOPHEN 325 MG TABLET PO PRN (19:20)
[2024-02-13] MEDS ORDERED: ONDANSETRON 4 MG/2 ML VIAL IV PRN (19:20)
[2024-02-13] MEDS ORDERED: ONDANSETRON 4 MG/2 ML VIAL ONE (19:32)
[2024-02-13] MEDS ORDERED: MORPHINE 4 MG/ML SYR ONE (19:32)
[2024-02-13 22:14] VITALS: BMI 27.1
[2024-02-13] MEDS ORDERED: D10W 125 ML IV PRN (22:36)
[2024-02-13] MEDS ORDERED: GLUCAGON 1 MG/VIAL IM PRN (22:36)
[2024-02-14 00:30] LABS: Specific Gravity 1.012 (1.005-1.030); Sqamous Epithelial <5 /HPF (None Seen); Urine Bacteria <20 /HPF (<20); Urine Bilirubin NEGATIVE (Negative); Urine Blood Negative (Negative); Urine Clarity Extremely Turbid (Clear); Urine Color Light-Yellow (Yellow); Urine Culture Reflex Order REFLEXED; Urine Glucose 2+ (Negative); Urine Ketones NEGATIVE (Negative); Urine Microscopic Reflex YN ORDER UMIC; Urine Mucus Slight /HPF (None Seen); Urine Nitrite NEGATIVE (Negative); Urine Protein TRACE (Negative); Urine Urobilinogen Normal (Normal); Urine WBC 20-50 /HPF (<5); Urine pH 6.5 (5.0-7.0)
[2024-02-14] MEDS: HYDRALAZINE HCL 20 MG/ML VIAL IV ONE (01:14)
[2024-02-14 07:00] LABS: Absolute Basophils 0.1 K/uL (0-0.5); Absolute Eosinophils 0.4 K/uL (0-0.5); Absolute Lymphocytes (CBC) 1.4 K/uL (0.7-4.9); Absolute Monocytes 0.5 K/uL (0.1-1.3); Eosinophils % 7.2 % (0-4.4); Hematocrit 33.9 % (36.0-45.0); Hemoglobin 10.6 g/dL (12.0-15.0); Lymphocytes % 27.3 % (15.3-44.8); MCH 27.3 pg (27.0-35.0); MCHC 31.3 g/dL (32.0-36.0); MCV 87.1 fL (80-100); MPV 8.4 fL (7.6-11.3); Monocytes % 8.6 % (3.3-12.3); Neutrophils % 55.9 % (41.7-73.7); Platelets 271 thou/uL (152-406); RBC Red Blood Cell Count 3.89 M/uL (3.86-4.86); Red Cell Distribution Width 14.4 % (12.1-15.2)
[2024-02-14 07:19] LABS: Albumin 3.2 g/dL (3.4-5.0); Albumin/Globulin Ratio 0.9 (1.1-1.8); Anion Gap 5.2 mEq/L (5.0-15.0); Bilirubin Total 0.3 mg/dL (0.2-1.0); Globulin 3.4 g/dL (2.3-3.5); Magnesium 1.4 mg/dL (1.6-2.4); Phosphorus 2.7 mg/dL (2.5-4.9); Potassium 4.2 mEq/L (3.5-5.1); Protein, Total 6.6 g/dL (6.4-8.2)
[2024-02-14] MEDS: INSULIN REGULAR (HUMAN) 100 UNIT/ML SQ SCH (07:30)
[2024-02-14] MEDS: Magnesium Sulfate 2gm IVPB 2 G/50 ML BAG IV ONE (09:03)
[2024-02-14] MEDS: ENOXAPARIN 40 MG/0.4 ML SQ SCH (09:03)
[2024-02-14] MEDS: lisinopriL 20 MG TAB PO SCH (09:04)
[2024-02-14] MEDS: ASPIRIN EC 81 MG TAB PO SCH (09:04)
[2024-02-14] MEDS: CLOPIDOGREL 75 MG TABLET PO SCH (09:04)
[2024-02-14] MEDS: SOTALOL HCL 80 MG TAB PO SCH (09:04)
[2024-02-14] MEDS: FERROUS SULFATE 325 MG TAB PO SCH (09:04)
[2024-02-14] MEDS: PANTOPRAZOLE 40MG TABLET PO SCH (09:04)
[2024-02-14] MEDS: ALPRAZOLAM 0.25 MG TABLET PO SCH (09:05)
[2024-02-14] MEDS: AMLODIPINE 5 MG TAB PO SCH (09:05)
[2024-02-14] MEDS: ATORVASTATIN 40 MG TAB PO SCH (09:05)
--- NOTE | 2024-02-14 11:44 | P.PN ---
Date of Service: 02/14/24 Subjective: continues with chest discomfort this afternoon -feeling more epigastric pressure, reports similar to previous "pancreas" episode daughter on phone, states has had bad UTIs in past as well patient denies urinary symptoms, states doesn't usually feel uti symptoms - until she's vomiting denies ETOH use ROS: 10 point ROS as noted above, otherwise negative Physical Exam: GEN: Alert, NAD CV: Regular rate and rhythm, no edema Pulm: Nonlabored respirations on room air, clear bilaterally ABD: soft, nontender, nondistended Neuro: Normal speech, normal affect Problem List: Chest pain/pressure Hx CAD s/p PCI x4 Chronic a-fib, s/p watchman procedure (2022) Hx Iron deficiency anemia Hypertension Hyperlipidemia GERD IDDM2 hx of ?pancreatitis Chest pain/pressure Hx CAD s/p PCI x4 Chronic a-fib, s/p watchman procedure (2022) on admission, presents with acute onset chest pain/pressure. Trend troponins, negative x2 Chest xray negative check EKG Cardiology consulted continue plavix, asa 81mg, statin continue sotalol Hx Iron deficiency anemia. resume home ferrous sulfate Hypertension. Continue amlodipine, lisinopril Hyperlipidemia. resume statin GERD. resume home protonix IDDM2. accu-cheks, SSI. Confirm home insulin regimen. VTE: Lovenox Code: Full Dispo: home, ~2 days Pending cardiac recs Time Spent Managing Pts Care (In Minutes): 55
[2024-02-14] MEDS ORDERED: NITROGLYCERIN 0.4 MG/TAB SL PRN (14:25)
[2024-02-14] MEDS: MORPHINE 2 MG/ML SYR IV PRN (14:31)
[2024-02-14 15:29] LABS: Troponin High Sensitivity 5.6 pg/mL (<58.9)
--- NOTE | 2024-02-14 17:03 | P.CNS ---
Date of Consult: 02/14/24 Chief Complaint: CP History of Present Illness: Patient with PMH of CAD s/p PCI LAD recently almost 2 months ago, presented with one episode of chest pain, left sided lasted few minutes, no more pain at time of exam, denies any other cardiac symptoms. Allergies No Known Drug Allergies Allergy (Verified 06/07/23 00:04) Unknown Home medications list reviewed: Yes Home Medications: Amlodipine [Norvasc*] 5 mg PO DAILY 06/07/23 Atorvastatin Calcium [Lipitor] 40 mg PO DAILY 06/07/23 Insulin Glargine,Hum.rec.anlog [Basaglar Kwikpen U-100] 37 units SQ BEDTIME 06/07/23 Lisinopril [Zestril] 20 mg PO DAILY 06/07/23 Metformin HCl [Glucophage*] 1,000 mg PO BIDWM 06/07/23 Pantoprazole [Protonix Tab*] 40 mg PO DAILY 06/07/23 Ferrous Sulfate [Ferrous Sulfate*] 325 mg PO DAILY 08/14/23 Aspirin [Aspirin EC 81 MG] 81 mg PO DAILY #320 tab 08/15/23 Sotalol HCl [Betapace*] 80 mg PO BID 6AM 6PM #60 tab 08/15/23 Clopidogrel Bisulfate [Plavix] 75 mg PO DAILY 90 Days #90 tab 10/18/23 Nitrofurantoin Monohyd/M-Cryst [Nitrofurantoin [place]-Mcr 100 mg] 100 mg PO DAILY 02/14/24 [place]-3S/Dha/Epa/Fish Oil [Fish Oil [place]-3 Softgel] 1 each PO DAILY 02/14/24 - Past Medical/Surgical History Diabetic: Yes -: HTN -: Type 2 diabetes -: Coronary artery disease -: Nephrolithiasis -: GERD -: Hyperlipidemia -: Kidney stone -: Thyroidectomy -: Stent in LAD (03/2014) -: Cholecystectomy -: Extraction of nephrolithiasis -: Watchman Psychosocial/ Personal History: Patient lives at home with her daughter. - Family History Father Medical History: Heart disease, Hypertension, Diabetes, Stroke Mother Medical History: Heart disease, Diabetes Sister Medical History: Hypertension, Diabetes, Cancer Notes: breast cancer Brother Medical History: Heart disease, Stroke - Social History Smoking Status: Unknown if ever smoked Alcohol use: No CD- Drugs: No Caffeine use: Yes Place of Residence: Home Review of Systems 10-point ROS is otherwise unremarkable Physical Examination Temp Pulse Resp BP Pulse Ox 98.2 F 77 18 125/62 98 02/14/24 16:00 02/14/24 16:00 02/14/24 16:00 02/14/24 16:00 02/14/24 16:00 General: Alert, In no apparent distress HEENT: Atraumatic, PERRLA, Mucous membr. moist/pink, EOMI, Sclerae nonicteric Neck: Supple, 2+ carotid pulse no bruit, No LAD, Without JVD or thyroid abnormality Respiratory: Clear to auscultation bilaterally, Normal air movement Cardiovascular: Regular rate/rhythm, Normal S1 S2 Gastrointestinal: Normal bowel sounds, No tenderness Musculoskeletal: No tenderness Integumentary: No rashes Neurological: Normal gait, Normal speech, Normal tone, Normal affect Lymphatics: No axilla or inguinal lymphadenopathy Laboratory Data (last 24 hrs) 02/13/24 02/13/24 02/13/24 18:10 18:10 18:10 WBC 4.90 Hgb 11.7 L Hct 36.3 Plt Count 271 PT 11.2 INR 1.00 Sodium 139 Potassium 3.8 BUN 19 H Creatinine 0.87 Glucose 282 H Total Bilirubin 0.2 AST 13 L ALT 18 Alkaline Phosphatase 90 - Problems (1) Atrial fibrillation Current Visit: No Status: Acute Plan: Patient is currently in sinus rhythm, she is s/p watchman continue sotalol 80 mg po bid continue ASA (2) Chest pain Onset Date: 05/07/15 Current Visit: No Status: Acute Plan: resolved, enzymes are negative x3 continue ASA and Plavix outpatient follow up. Qualifiers: Chest pain type: unspecified Qualified Code(s): R07.9 - Chest pain, unspecified
--- NOTE | 2024-02-14 18:32 | RAD REPORT ---
EXAMINATION: CT Abdomen Pelvis W Contrast CLINICAL INDICATION: Female, 78 years old. epigastric pain, h/o pancreatitis TECHNIQUE: CT abdomen and pelvis was performed, after the administration of IV contrast, as per [facility] protocol. Axial, sagittal and coronal reconstructions were obtained. One or more of the following dose reduction techniques were used: Automated exposure control, adjustment of the mA and k V according to patient size, and iterative reconstruction. Unless otherwise specified, incidental findings do not require dedicated imaging follow-up. COMPARISON: 09/19/2023 FINDINGS: LOWER CHEST: The visualized lung bases are clear. LIVER: Normal in size and contour. No focal lesion. BILIARY SYSTEM: Status post cholecystectomy. SPLEEN: Normal size. No focal lesion. 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 PANCREAS: No mass, ductal dilation, or tiburcio-pancreatic fluid. ADRENALS: Normal; no mass. KIDNEYS: Normal size with stable cortical foci of atrophy suggesting chronic scarring. No hydronephro sis. 9 mm right lower pole calculus , stable. URINARY BLADDER: Unremarkable. GASTROINTESTINAL TRACT: No evidence of free air, significant intra-abdominal free fluid, bowel obstru ction or abscess. Distal colonic diverticulosis. APPENDIX: Normal appendix. LYMPH NODES: No lymphadenopathy. MUSCULOSKELETAL: No acute or suspicious osseous abnormality. ADDITIONAL FINDINGS: None. IMPRESSION: No acute or concerning abnormalities seen in the abdomen or pelvis. Stable findings, including nonobstructing right lower pole renal calculus, and distal colonic diverti culosis.
[2024-02-15 07:07] LABS: Hematocrit 33.9 % (36.0-45.0); MCHC 32.6 g/dL (32.0-36.0); MPV 8.2 fL (7.6-11.3); Platelets 284 thou/uL (152-406); RBC Red Blood Cell Count 3.94 M/uL (3.86-4.86); Red Cell Distribution Width 14.3 % (12.1-15.2)
[2024-02-15 07:34] LABS: Albumin 3.1 g/dL (3.4-5.0); Albumin/Globulin Ratio 0.9 (1.1-1.8); Anion Gap 6.4 mEq/L (5.0-15.0); Bilirubin Total 0.3 mg/dL (0.2-1.0); Globulin 3.6 g/dL (2.3-3.5); Potassium 4.4 mEq/L (3.5-5.1); Protein, Total 6.7 g/dL (6.4-8.2)
[2024-02-15] MEDS: CEFTRIAXONE 1,000 MG in NA CHLORIDE 0.9% 50 ML IVPB SCH (09:44)
[2024-02-15 12:25] VITALS: BP 127/63; TEMP 97.5
--- NOTE | 2024-02-15 13:58 | P.DS ---
Admission Date: 02/15/24 Discharge Date: 02/15/24 Disposition: ROUTINE DISCHARGE Discharge Condition: FAIR Reason for Admission: CP Hospital Course: Diagnosis Chest pain/pressure Hx CAD s/p PCI x4 Chronic a-fib, s/p watchman procedure (2022) Hx Iron deficiency anemia Hypertension Hyperlipidemia GERD IDDM2 Patient presented with acute onset chest pain/pressure shortly before ER arrival. Cardiac workup including chest xray, EKG, troponins were all negative. She is known to have history of CAD s/p PCI x4. Most recent PCI was about 4 months ago. Cardiology was consulted and recommended to follow up in office for further evaluation. No evidence to warrant further inpatient evaluation. Patient was feeling better, chest pain resolved, breathing okay on room air, and was deemed stable for discharge. UA suggested the presence of UTI. Patient was given a shot of IV Rocephin and discharged with oral cefpodoxime. Noted patient is on prophylactic Macrobid for recurrent UTI. Advised patient to follow up with cardiology in next 2-4 weeks. Vital Signs/Physical Exam: Temp Pulse Resp BP Pulse Ox 97.5 F 65 16 127/63 97 02/15/24 12:00 02/15/24 12:00 02/15/24 12:00 02/15/24 12:00 02/15/24 12:00 General: Alert, In no apparent distress, Oriented x3 HEENT: Mucous membr. moist/pink, Sclerae nonicteric Neck: Supple, JVD not distended Respiratory: Clear to auscultation bilaterally, Normal air movement Cardiovascular: Normal pulses, Regular rate/rhythm, Normal S1 S2 Gastrointestinal: Normal bowel sounds, Soft and benign, Non-distended, No tenderness Musculoskeletal: No swelling, No tenderness Integumentary: No rashes, No cyanosis Neurological: Normal speech, Normal strength at 5/5 x4 extr Laboratory Data at Discharge: WBC 4.80 thou/uL (4.3-10.9) 02/15/24 06:45 Hgb 11.0 g/dL (12.0-15.0) L 02/15/24 06:45 Hct 33.9 % (36.0-45.0) L 02/15/24 06:45 Plt Count 284 thou/uL (152-406) 02/15/24 06:45 PT 11.2 SECONDS (9.4-12.5) 02/13/24 18:10 INR 1.00 02/13/24 18:10 Sodium 135 mEq/L (136-145) L D 02/15/24 06:45 Potassium 4.4 mEq/L (3.5-5.1) 02/15/24 06:45 BUN 22 mg/dL (7-18) H 02/15/24 06:45 Creatinine 0.94 mg/dL (0.55-1.02) 02/15/24 06:45 Glucose 197 mg/dL (74-106) H 02/15/24 06:45 Phosphorus 2.7 mg/dL (2.5-4.9) 02/14/24 06:40 Magnesium 2.0 mg/dL (1.6-2.4) 02/15/24 06:45 Total Bilirubin 0.3 mg/dL (0.2-1.0) 02/15/24 06:45 AST 15 U/L (15-37) 02/15/24 06:45 ALT 20 U/L (13-56) 02/15/24 06:45 Alkaline Phosphatase 66 U/L (45-117) 02/15/24 06:45 Lipase 41 U/L (13-75) 02/15/24 06:45 Home Medications: Amlodipine [Norvasc*] 5 mg PO DAILY 06/07/23 Atorvastatin Calcium [Lipitor] 40 mg PO DAILY 06/07/23 Insulin Glargine,Hum.rec.anlog [Basaglar Kwikpen U-100] 37 units SQ BEDTIME 06/07/23 Lisinopril [Zestril] 20 mg PO DAILY 06/07/23 Metformin HCl [Glucophage*] 1,000 mg PO BIDWM 06/07/23 Pantoprazole [Protonix Tab*] 40 mg PO DAILY 06/07/23 Ferrous Sulfate [Ferrous Sulfate*] 325 mg PO DAILY 08/14/23 Aspirin [Aspirin EC 81 MG] 81 mg PO DAILY #320 tab 08/15/23 Sotalol HCl [Betapace*] 80 mg PO BID 6AM 6PM #60 tab 08/15/23 Clopidogrel Bisulfate [Plavix*] 75 mg PO DAILY 90 Days #90 tab 10/18/23 Nitrofurantoin Monohyd/M-Cryst [Nitrofurantoin [place]-Mcr 100 mg] 100 mg PO DAILY 02/14/24 [place]-3S/Dha/Epa/Fish Oil [Fish Oil [place]-3 Softgel] 1 each PO DAILY 02/14/24 Cefpodoxime Proxetil [Vantin] 200 mg PO BID #10 tab 02/15/24 New Medications: Cefpodoxime Proxetil [Vantin] 200 mg PO BID #10 tab Physician Discharge Instructions: Physician discharge instructions: Patient presented with acute onset chest pain/pressure shortly before ER arrival. Cardiac workup including chest xray, EKG, troponins were all negative. She is known to have history of CAD s/p PCI x4. Cardiology was consulted and recommended to follow up in office for further evaluation. No evidence to warrant further inpatient evaluation. Patient was feeling better, chest pain resolved, breathing okay on room air, and was deemed stable for discharge. Advised patient to follow up with cardiology in next 2-4 weeks. Call to make appointment. Medications: Follow up: PCP 3-5 days Cardiology 2-4 weeks Please call to schedule / confirm appointments Diet: ADA Activity: Ad heather Followup: Kenan Velazquez DO [Primary Care Provider] - 1-2 Weeks Time spent managing pt's care (in minutes): 32
[2024-02-15 15:43] VITALS: O2SAT 97
--- NOTE | 2024-02-18 16:06 | EKG ---
Test Date: 2024-02-13 Test Time: 17:01:03 Test Developer: DERRELL MEASUREMENT RESULTS: Intervals: Rate: 77 DC: 174 QRSD: 72 QT: 410 QTc: 463 [place]: P: 49 DC: 174 QRS: 75 T: 67 INTERPRETIVE STATEMENTS: Normal sinus rhythm Normal ECG Compared to ECG 10/16/2023 08:10:48 ST (T wave) deviation no longer present Electronically Signed On 02-18-24 15:56:32 GAS METER CHECKER by Prieto Harvey
== END 2024-02-15 15:45 | disposition home or self-care (01) | DRG 313 ==
LOC: ER 16:33 → ERHOLD 19:20 → 4TH 22:05 → OBSVTOIN 02-15 08:54
PROVIDERS: ADMIT Family Medicine; ATTEND Internal Medicine
DX: R07.9 Chest pain, unspecified (principal); N39.0 Urinary tract infection, site not specified; I48.20 Chronic atrial fibrillation, unspecified; E11.9 Type 2 diabetes mellitus without complications; I10 Essential (primary) hypertension; D50.9 Iron deficiency anemia, unspecified; E78.5 Hyperlipidemia, unspecified; K21.9 Gastro-esophageal reflux disease without esophagitis; I25.10 Atherosclerotic heart disease of native coronary artery without angina pectoris; I25.2 Old myocardial infarction; Z95.5 Presence of coronary angioplasty implant and graft; Z79.4 Long term (current) use of insulin; Z79.84 Long term (current) use of oral hypoglycemic drugs; Z79.02 Long term (current) use of antithrombotics/antiplatelets; Z79.899 Other long term (current) drug therapy
CPT/HCPCS: 36415; 71045; 74177; 80053; 81001; 82947; 83690; 83735; 83880; 84100; 84484; 85025; 85027; 85610; 87077; 87086; 87088; 87186; 93005; 94760; 96374; 96375; 99285; G0378; J0360; J0696; J1650; J2270; J2405; J3475; Q9967

== ENCOUNTER 2024-03-09 16:10 | Emergency (ER) | payer OTHER ==
[2024-03-09 18:05] LABS: Specific Gravity 1.014 (1.005-1.030); Sqamous Epithelial <5 /HPF (None Seen); Urine Bacteria <20 /HPF (<20); Urine Bilirubin NEGATIVE (Negative); Urine Blood Negative (Negative); Urine Clarity Turbid (Clear); Urine Color Yellow (Yellow); Urine Crystals Unidentified Few /HPF (None Seen); Urine Culture Reflex Order REFLEXED; Urine Glucose NEGATIVE (Negative); Urine Ketones TRACE (Negative); Urine Microscopic Reflex YN ORDER UMIC; Urine Mucus Slight /HPF (None Seen); Urine Nitrite NEGATIVE (Negative); Urine Protein NEGATIVE (Negative); Urine RBC <5 /HPF (None Seen); Urine Urobilinogen Normal (Normal); Urine WBC 20-50 /HPF (<5); Urine Yeast (Budding) Trace /HPF (None Seen); Urine pH 6.5 (5.0-7.0)
[2024-03-09 18:23] LABS: Albumin 3.7 g/dL (3.4-5.0); Albumin/Globulin Ratio 0.9 (1.1-1.8); Anion Gap 10.2 mEq/L (5.0-15.0); Bilirubin Total 0.3 mg/dL (0.2-1.0); Globulin 4.1 g/dL (2.3-3.5); Potassium 4.2 mEq/L (3.5-5.1); Protein, Total 7.8 g/dL (6.4-8.2)
[2024-03-09 18:33] LABS: Absolute Basophils 0.1 K/uL (0-0.5); Absolute Eosinophils 0.3 K/uL (0-0.5); Absolute Lymphocytes (CBC) 1.6 K/uL (0.7-4.9); Absolute Monocytes 0.5 K/uL (0.1-1.3); Absolute Neutrophil 4.7 K/uL (1.8-8.0); Basophils % 0.9 % (0-1.3); Eosinophils % 4.1 % (0-4.4); Hematocrit 35.6 % (36.0-45.0); Hemoglobin 11.7 g/dL (12.0-15.0); Lymphocytes % 22.5 % (15.3-44.8); MCH 27.7 pg (27.0-35.0); MCV 84.1 fL (80-100); MPV 8.6 fL (7.6-11.3); Monocytes % 7.5 % (3.3-12.3); Platelets 339 thou/uL (152-406); RBC Red Blood Cell Count 4.23 M/uL (3.86-4.86); Red Cell Distribution Width 14.1 % (12.1-15.2)
--- NOTE | 2024-03-09 19:30 | RAD REPORT ---
EXAM: CT pelvis with contrast HISTORY: Pelvic and hip pain perirectal abscess COMPARISON: None TECHNIQUE: Multiple contiguous axial images were obtained and a CT of the pelvis with IV contrast. Sa gittal and coronal reformats were performed. One or more of the following dose reduction techniques were used: Automated exposure control, adjustment of the mA and/or kV according to patient size, and/ or iterative reconstruction. FINDINGS: The visualized intrapelvic structures are unremarkable.Sigmoid diverticulosis coli without diverticul itis. 26 x 20 mm abscess is seen left medial buttock. No pelvic fractures are seen. Moderate lower lumbar degenerative changes. IMPRESSION: 26 x 20 mm abscess medial left buttock soft tissues.
[2024-03-09] MEDS ORDERED: LIDOCAINE 1% 20 ML MDV ONE (20:17)
[2024-03-09] MEDS ORDERED: NA CHLORIDE 0.9% 100 ML ONE (20:55)
[2024-03-09] MEDS ORDERED: PIPERACIL/TAZO 3.375 GM VIAL IV ONE (20:56)
--- NOTE | 2024-03-09 21:27 | EDPHYS ---
Physician Documentation [facility] Name: Rena Reddy Age: 78 yrs Sex: Female : 1945 Arrival Date: 03/09/2024 Time: 16:10 Bed 7 Private MD: ED Physician Rajiv Dietz HPI: 03/10 00:02 This 78 yrs old Female presents to ER via Ambulatory with complaints of sb4 vaginal problem. 00:02 Patient reports pain in her vaginal region. 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 Patient reports pain in the area, but denies any fever or chills. Denies any difficulty urinating or defecating. Historical: - Allergies: 03/09 16:43 NKDA; ap3 - PMHx: 16:43 diabetes mellitus; Hypertensive disorder; Myocardial infarction; ap3 - PSHx: 16:43 cardiac stents; watchman; ap3 - Immunization history:: Client reports receiving the 2nd dose of the Covid vaccine. - Infectious Disease History:: Denies. - Social history:: Smoking status: Patient denies any tobacco usage or history of. ROS: 03/10 00:02 Constitutional: Negative for fever, chills, and weight loss, sb4 : Positive for Per HPI, All other systems are negative, Exam: 00:02 Constitutional: This is a well developed, well nourished patient who is awake, alert, sb4 and in no acute distress. Head/Face: Normocephalic, atraumatic. Eyes: Extra-ocular motions intact. Periorbital areas with no swelling, redness, or edema. ENT: Mucous membranes moist. Respiratory: No increased work of breathing, no retractions or nasal flaring. Skin: Warm, dry with normal turgor. Normal color with no rashes, no lesions, and no evidence of cellulitis. 00:02 Abdomen/GI: Rectal exam: Small perianal abscess noted at 4oclock position with fluctuance, warmth, erythema. 00:02 : Pelvic Exam: External exam: no appreciated Bartholin's cyst, no erythema, not excoriated, no evidence of foreign body, no lesions, no ulcerations, no warts seen, the nurse was present for the exam, Vital Signs: 03/09 16:42 BP 165 / 64; Pulse 76; Resp 17; Temp 98.4; Pulse Ox 100% ; Weight 63.5 kg; Height 5 ft. ap3 0 in. ; Pain 8/10; 17:15 BP 151 / 63; Pulse 69; Resp 15; Pulse Ox 97% ; cm10 21:22 BP 151 / 56; Pulse 80; Resp 16; Pulse Ox 97% ; cm10 16:42 Body Mass Index 27.34 (63.50 kg, 152.4 cm) ap3 16:42 Pain Scale: Adult ap3 Procedures: 21:19 I \T\ D: Incision and drainage was performed for an abscess of the left perianal area. sb4 Prepped with Betadine, Anesthetized with 2 ml's 1% Lidocaine. Incised with #11 blade. Drained moderate amount serosanguinous fluid. Packed with iodoform gauze, Dressing: sterile 4x4 gauze, the patient tolerated the procedure well. MDM: 16:46 Medical Screening Exam initiated sb4 03/10 00:05 Data reviewed: vital signs, nurses notes, lab test result(s), radiologic studies, and sb4 as a result, I will discharge patient. Historians other than the Patient: Daughter/Son: daughter. Care significantly affected by the following chronic conditions: Diabetes, Hypertension. Counseling: I had a detailed discussion with the patient and/or guardian regarding the historical points, exam findings, and any diagnostic results supporting the discharge/admit diagnosis, the presence of at least one elevated blood pressure reading (>120/80) during this emergency department visit, lab results, radiology results, the need for outpatient follow up, for packing removal in 48 hours, to return to the emergency department if symptoms worsen or persist or if there are any questions or concerns that arise at home. 03/09 16:49 Order name: CBC with Diff; Complete Time: 18:35 sb4 03/09 16:49 Order name: CMP; Complete Time: 18:25 sb4 03/09 16:49 Order name: Lipase; Complete Time: 18:25 sb4 03/09 16:49 Order name: Urinalysis w/ reflexes; Complete Time: 18:17 sb4 03/09 18:09 Order name: Urine Culture EDMS 01/02 16:49 Order name: CT Pelvis w cont; Complete Time: 19:31 sb4 03/09 16:49 Order name: IV Saline Lock; Complete Time: 17:55 sb4 03/09 16:49 Order name: Labs collected and sent; Complete Time: 17:55 sb4 03/09 17:04 Order name: Gown patient; Complete Time: 17:55 sb4 03/09 20:07 Order name: Incision \T\ Drainage Setup; Complete Time: 21:22 sb4 Administered Medications: 03/09 21:21 Drug: Piperacillin-Tazobactam IVPB 3.375 grams IVPB once over 60 mins; (mix in NS 100 cm10 mL) Route: IVPB; Infused Over: 60 mins; Site: right hand; 21:48 Follow up: Response: No adverse reaction; IV Status: Completed infusion; IV Intake: cm10 100ml 21:22 Drug: Lidocaine Infiltration (1 %) 5 ml 5 ml Infiltration once; to bedside {Note: Given cm10 by provider..} Volume: 5 ml; Route: Infiltration; Disposition Summary: 03/09/24 21:27 Discharge Ordered Notes: Location: Home sb4 Problem: new sb4 Symptoms: have improved sb4 Condition: Stable sb4 Diagnosis - Perianal abscess sb4 Followup: sb4 - With: Private Physician - When: 48 Hours - Reason: Wound Recheck, Packing removal Discharge Instructions: - Discharge Summary Sheet sb4 - Skin Abscess, [id number] sb4 - Wound Packing sb4 - Incision and Drainage, Care After sb4 Forms: - Antibiotic Education sb4 - Patient Portal Instructions sb4 - Leadership Thank You Letter sb4 Prescriptions: - Augmentin 875-125 mg Oral Tablet - take 1 tablet ORAL route every 12 hours for 10 days; 20 tablet; Refills: 0, sb4 Product Selection Permitted - Flagyl 500 mg Oral Tablet - take 1 tablet ORAL route every 12 hours for 7 days; 14 tablet; Refills: 0, sb4 Product Selection Permitted Addendum: 03/13/2024 07:43 I was immediately available for consultation during this patient's visit. I did not e c2 personally see the patient or discuss the patient with the FRANCISCO. . Signatures: Dispatcher [employer] Yany Greenwood RN RN ap3 Kimberly Huntley PA-C PA-C sb4 Zaria Jacobo RN RN cm10 Rajiv Dietz, MD ec2
--- NOTE | 2024-03-09 21:27 | ER ---
Nurse's Notes [facility] Name: Rena Reddy Age: 78 yrs Sex: Female : 1945 Arrival Date: 03/09/2024 Time: 16:10 Bed 7 Private MD: Diagnosis: Perianal abscess Presentation: 03/09 16:42 Chief complaint: Patient states: she was sent by her dr due to a "bump on the wrong ap3 side of my butt". patient states it has been there for approx 2 weeks and she rates the pain as an 8/10 on the pain scale. Coronavirus screen: At this time, the client does not indicate any symptoms associated with coronavirus-19. Ebola Screen: No symptoms or risks identified at this time. Initial Sepsis Screen:. Initial Sepsis Screen: Does the patient meet any 2 criteria? No. Patient's initial sepsis screen is negative. Does the patient have a suspected source of infection? No. Patient's initial sepsis screen is negative. Risk Assessment: Do you want to hurt yourself or someone else? Patient reports no desire to harm self or others. Onset of symptoms is unknown. 16:42 Method Of Arrival: Ambulatory ap3 16:42 Acuity: JULES 3 ap3 Triage Assessment: 16:44 General: Appears in no apparent distress. Behavior is calm, cooperative, appropriate ap3 for age. Pain: Complains of pain in buttocks Pain currently is 8 out of 10 on a pain scale. Neuro: Level of Consciousness is awake, alert, obeys commands, Oriented to person, place, time, situation, Appropriate for age. Cardiovascular: Patient's skin is warm and dry. Respiratory: Airway is patent Respiratory effort is even, unlabored, Respiratory pattern is regular, symmetrical. Historical: - Allergies: 16:43 NKDA; ap3 - PMHx: 16:43 diabetes mellitus; Hypertensive disorder; Myocardial infarction; ap3 - PSHx: 16:43 cardiac stents; watchman; ap3 - Immunization history:: Client reports receiving the 2nd dose of the Covid vaccine. - Infectious Disease History:: Denies. - Social history:: Smoking status: Patient denies any tobacco usage or history of. Screenin:[address] [facility] ED Fall Risk Assessment (Adult) History of falling in the last 3 months, ap3 including since admission No falls in past 3 months (0 pts) Confusion or Disorientation No (0 pts) Intoxicated or Sedated No (0 pts) Impaired Gait No (0 pts) Mobility Assist Device Used No (0 pt) Altered Elimination No (0 pt) Score/Fall Risk Level 0 - 2 = Low Risk Oriented to surroundings, Maintained a safe environment, Educated pt \\T\\ family on fall prevention, incl call for assistance when getting out of bed, Assessed \\T\\ reinforced patient's understanding of fall precautions, Hourly rounding (assess needs \\T\\ fall precautionary measures) done, Used ambulatory aids as needed (educated on \\T\\ assisted with), Used gait belt as appropriate. Abuse screen: Denies threats or abuse. Nutritional screening: No deficits noted. Tuberculosis screening: No symptoms or risk factors identified. Assessment: 17:29 General: Appears in no apparent distress. uncomfortable, Behavior is calm, cooperative. cm10 Pain: Complains of pain in buttocks Pain does not radiate. Pain currently is 8 out of 10 on a pain scale. Quality of pain is described as sharp, Pain began 2-3 days ago. Neuro: No deficits noted. Level of Consciousness is awake, alert, obeys commands, Oriented to person, place, time, situation, Appropriate for age. Cardiovascular: No deficits noted. Patient's skin is warm and dry. Respiratory: No deficits noted. Airway is patent Respiratory effort is even, unlabored, Respiratory pattern is regular, symmetrical. Derm: Abscess located on buttocks. Musculoskeletal: No deficits noted. Range of motion: intact in all extremities. Vital Signs: 16:42 BP 165 / 64; Pulse 76; Resp 17; Temp 98.4; Pulse Ox 100% ; Weight 63.5 kg; Height 5 ft. ap3 0 in. ; Pain 8/10; 17:15 BP 151 / 63; Pulse 69; Resp 15; Pulse Ox 97% ; cm10 21:22 BP 151 / 56; Pulse 80; Resp 16; Pulse Ox 97% ; cm10 16:42 Body Mass Index 27.34 (63.50 kg, 152.4 cm) ap3 16:42 Pain Scale: Adult ap3 ED Course: 16:13 Patient arrived in ED. al6 16:21 Kimberly Huntley PA-C is PHCP. sb4 16:21 Rajiv Dietz MD is Attending Physician. sb4 16:43 Triage completed. ap3 16:45 Arm band placed on right wrist. ap3 16:59 José Luis Choi, RN is Primary Nurse. bp 17:12 Primary Nurse role handed off by José Luis Choi, RN cm10 17:12 Zaria Jacobo, RN is Primary Nurse. cm10 17:22 Missed attempt(s): 22 gauge in right antecubital area. Bleeding controlled, band aid cm10 applied, catheter tip intact. 17:30 Patient has correct armband on for positive identification. Placed in gown. Bed in low cm10 position. Call light in reach. Side rails up X2. Provided Education on: ER process and procedures.. Pulse ox on. NIBP on. 17:54 Initial lab(s) drawn, by me, sent to lab. Urine collected: clean catch specimen, clear. bp Inserted saline lock: 22 gauge in left antecubital area, using aseptic technique. Blood collected. Flushed with 10 mL NS. 19:15 CT Pelvis w cont In Process Unspecified. EDMS 21:21 Inserted saline lock: 24 gauge in right hand, using aseptic technique. Flushed with 10 cm10 mL NS. 21:21 Assist provider with I \\T\\ D: of an abscess on perianal Set up I\\T\\D tray. Performed by cm Leslie Huntley PA-C Wound packed. iodoform gauze, Patient tolerated well. Removal of peripheral IV. Catheter intact, dressing applied. 22:00 IV discontinued, intact, bleeding controlled, No redness/swelling at site. Pressure cm10 dressing applied. Administered Medications: 21:21 Drug: Piperacillin-Tazobactam IVPB 3.375 grams IVPB once over 60 mins; (mix in NS 100 cm10 mL) Route: IVPB; Infused Over: 60 mins; Site: right hand; 21:48 Follow up: Response: No adverse reaction; IV Status: Completed infusion; IV Intake: cm10 100ml 21:22 Drug: Lidocaine Infiltration (1 %) 5 ml 5 ml Infiltration once; to bedside {Note: Given cm10 by provider..} Volume: 5 ml; Route: Infiltration; Medication: 17:30 VIS not applicable for this client. cm10 Intake: 21:48 IV: 100ml; Total: 100ml. cm10 Outcome: 21:27 Discharge ordered by sb4 22:00 Discharged to home ambulatory, with family, cm10 22:00 Condition: good 22:00 Discharge instructions given to patient, Instructed on discharge instructions, follow up and referral plans. medication usage, wound care, Demonstrated understanding of instructions, follow-up care, medications, wound care, Prescriptions given X 2, 22:01 Patient left the ED. cm10 Signatures: Dispatcher [employer] EDJosé Luis Milan RN RN bp Prokisch, Amanda, RN RN ap3 Kimberly Huntley PA-C PAPretty [email or web address] Zaria Jacobo RN RN cm10 Domenica Andrade6
[2024-03-10 04:26] VITALS: TEMP 98.4
[2024-03-10 04:35] VITALS: O2SAT 97
[2024-03-10 04:37] VITALS: BP 151/63
== END 2024-03-09 22:01 | disposition home or self-care (01) ==
LOC: ER 16:10
DX: K61.0 Anal abscess (principal); E11.9 Type 2 diabetes mellitus without complications; I10 Essential (primary) hypertension; I25.2 Old myocardial infarction; Z95.5 Presence of coronary angioplasty implant and graft
CPT/HCPCS: 96365; 10060; 87088; 85025; 81001; 87086; 36415; 87077; 87186; 83690; 80053; 72193; 99285; Q9967; J2003; J2543

== ENCOUNTER 2024-04-06 06:50 | Day surgery (SDC) | payer OTHER ==
[2024-04-04 11:41] LABS: Absolute Basophils 0.1 K/uL (0-0.5); Absolute Eosinophils 0.3 K/uL (0-0.5); Absolute Lymphocytes (CBC) 1.5 K/uL (0.7-4.9); Absolute Monocytes 0.5 K/uL (0.1-1.3); Absolute Neutrophil 3.2 K/uL (1.8-8.0); Eosinophils % 5.8 % (0-4.4); Hematocrit 34.3 % (36.0-45.0); Hemoglobin 11.2 g/dL (12.0-15.0); Lymphocytes % 26.5 % (15.3-44.8); MCH 27.6 pg (27.0-35.0); MCHC 32.8 g/dL (32.0-36.0); MCV 84.3 fL (80-100); Monocytes % 9.3 % (3.3-12.3); Neutrophils % 57.4 % (41.7-73.7); Platelets 261 thou/uL (152-406); RBC Red Blood Cell Count 4.07 M/uL (3.86-4.86); Red Cell Distribution Width 15.6 % (12.1-15.2)
[2024-04-04 11:45] LABS: PT Prothrombin Time 11.4 SECONDS (9.4-12.5); PTT, Activated Partial Thromb 34.1 SECONDS (24.3-36.9); Protime INR 1.09
[2024-04-04 11:51] LABS: Anion Gap 9.4 mEq/L (5.0-15.0); Potassium 4.4 mEq/L (3.5-5.1)
--- NOTE | 2024-04-05 12:30 | EKG ---
Test Date: 2024-04-04 Test Time: 11:23:10 Clarifier: HEAVENLY MEASUREMENT RESULTS: Intervals: Rate: 65 ME: 166 QRSD: 78 QT: 454 QTc: 472 [place]: P: 49 ME: 166 QRS: 79 T: 93 INTERPRETIVE STATEMENTS: Normal sinus rhythm Normal ECG Compared to ECG 02/13/2024 17:01:03 No significant changes Electronically Signed On 04-05-24 12:29:17 LABORATORY TECHNICIAN by Prieto Harvey
[2024-04-06] MEDS ORDERED: HEPA 1000U/500MLS 2,000 UNIT/1,000 ML BAG IV ONE (07:13)
[2024-04-06] MEDS ORDERED: LIDOCAINE 1% 20 ML MDV ONE (07:14)
[2024-04-06] MEDS ORDERED: NITROGLYCERIN/D5W 50 MG/250 ML BTL IV ONE (07:14)
[2024-04-06] MEDS ORDERED: FENTANYL CITR 100 MCG/2 ML ONE (07:14)
[2024-04-06] MEDS ORDERED: MIDAZOLAM HCL 2 MG/2 ML INJ ONE (07:14)
[2024-04-06] MEDS ORDERED: ATROPINE SULF 1 MG/10 ML SYR IV ONE (07:23)
[2024-04-06] MEDS: NA CHLORIDE 0.9% 500 ML ONE (08:23)
[2024-04-06 08:45] VITALS: TEMP 97.6
--- NOTE | 2024-04-06 11:24 | OP ---
Date of Procedure: 04/06/2024 Surgeon: ALYSSA WHELAN Procedure Performed: Bilateral selective carotid angiogram. Indication: Carotid stenosis. Access: Right common femoral artery 5-Bruneian, closed with Mynx closure device. Complications: None. Bleeding: Less than 50 mL. Anesthesia: Total sedation time was 45 minutes. Used fentanyl and Versed. Description Of Procedure: After risks, and benefits, and alternatives were explained, the patient ag mary to procedure and signed informed consent. The patient was brought into cardiac catheterization laboratory, prepped and draped in usual sterile fashion. Then I accessed right common femoral artery using micropuncture kit, ultrasound guidance, fluoroscopy, placed 5-Bruneian [place] sheath and took a 4-Bruneian 3DRC catheter, engaged the right common carotid, took standard views and then the left com mon carotid, took standard views, and then removed the catheter and the sheath and 5-Bruneian Mynx clos ure device was used for closure with good hemostasis. Findings: 1. Right common carotid is normal. Right internal carotid has 70% stenosis at the bulb. 2. Left common carotid is normal. Left internal carotid is with 50% stenosis. Conclusion: Moderate to severe carotid stenosis pressure on the right. Recommendation: Endarterectomy. SR/MODL Voice ID: [id number] Report ID: [id number]
[2024-04-06 13:02] VITALS: BP 136/56; O2SAT 98
== END 2024-04-06 10:36 | disposition home or self-care (01) ==
LOC: PRE 06:50 → CCL 10:36
PROVIDERS: ATTEND Internal Medicine
DX: I65.23 Occlusion and stenosis of bilateral carotid arteries (principal); I25.10 Atherosclerotic heart disease of native coronary artery without angina pectoris; I11.0 Hypertensive heart disease with heart failure; I50.32 Chronic diastolic (congestive) heart failure; I48.0 Paroxysmal atrial fibrillation; E11.9 Type 2 diabetes mellitus without complications; E78.5 Hyperlipidemia, unspecified; Z79.02 Long term (current) use of antithrombotics/antiplatelets; Z79.82 Long term (current) use of aspirin; Z79.899 Other long term (current) drug therapy; Z01.810 Encounter for preprocedural cardiovascular examination; Z82.49 Family history of ischemic heart disease and other diseases of the circulatory system
CPT/HCPCS: 93005; 85025; 80048; 36415; 85610; 82947; 85730; 36222; 76937; C1893; J2003; J2250; J3010; J7040; C1760; 99152; 99153; J0461

== ENCOUNTER 2024-06-13 07:10 | Day surgery (SDC) | payer OTHER ==
[2024-06-09 15:52] LABS: Absolute Basophils 0.1 K/uL (0-0.5); Absolute Eosinophils 0.3 K/uL (0-0.5); Absolute Lymphocytes (CBC) 1.3 K/uL (0.7-4.9); Absolute Monocytes 0.4 K/uL (0.1-1.3); Absolute Neutrophil 2.6 K/uL (1.8-8.0); Basophils % 1.2 % (0-1.3); Hematocrit 34.2 % (36.0-45.0); Hemoglobin 11.2 g/dL (12.0-15.0); Lymphocytes % 27.1 % (15.3-44.8); MCH 27.7 pg (27.0-35.0); MCHC 32.7 g/dL (32.0-36.0); MCV 84.5 fL (80-100); MPV 8.6 fL (7.6-11.3); Monocytes % 9.6 % (3.3-12.3); Neutrophils % 56.1 % (41.7-73.7); Platelets 256 thou/uL (152-406); RBC Red Blood Cell Count 4.05 M/uL (3.86-4.86); Red Cell Distribution Width 15.2 % (12.1-15.2)
[2024-06-09 16:08] LABS: Anion Gap 9.9 mEq/L (5.0-15.0); PT Prothrombin Time 12.3 SECONDS (10-13.0); PTT, Activated Partial Thromb 30.5 SECONDS (27.2-37.4); Potassium 3.9 mEq/L (3.5-5.1); Protime INR 1.08
[2024-06-13] MEDS ORDERED: NA CHLORIDE 0.9% 500 ML ONE (07:32)
[2024-06-13] MEDS ORDERED: ATROPINE SULF 1 MG/10 ML SYR IV ONE (07:52)
[2024-06-13] MEDS ORDERED: HEPARIN 5000 UNIT/ML 1 ML VIAL ONE (07:52)
[2024-06-13] MEDS ORDERED: HEPARIN 10,000 UNIT/10 ML VIAL IV ONE (07:52)
[2024-06-13] MEDS ORDERED: MIDAZOLAM HCL 2 MG/2 ML INJ ONE (07:52)
[2024-06-13] MEDS ORDERED: LIDOCAINE 1% 20 ML MDV ONE (07:52)
[2024-06-13] MEDS ORDERED: FENTANYL CITR 100 MCG/2 ML ONE (07:53)
[2024-06-13] MEDS ORDERED: ONDANSETRON 4 MG/2 ML VIAL ONE (07:57)
[2024-06-13 10:36] VITALS: BP 112/44; O2SAT 96
--- NOTE | 2024-06-13 11:00 | EKG ---
Test Date: 2024-06-09 Test Time: 15:16:18 Mathematician Research: HEAVENLY MEASUREMENT RESULTS: Intervals: Rate: 73 [place]: 164 QRSD: 72 QT: 392 QTc: 431 [place]: P: 64 OH: 164 QRS: 70 T: 102 INTERPRETIVE STATEMENTS: Normal sinus rhythm Normal ECG Compared to ECG 04/04/2024 11:23:10 No significant changes Electronically Signed On 06-13-24 10:56:04 CDT by Prieto Harvey
--- NOTE | 2024-06-13 20:23 | OP ---
Date of Procedure: 06/13/2024 Surgeon: Prieto Harvey Procedures Performed: 1. Left heart catheterization. 2. Selective coronary angiogram. Indication For Procedure: Unstable angina. Complications: None. Estimated Blood Loss: Less than 50 cc. Access: Right radial, closed by TR band. Sedation Time: 20 minutes with 1 of Versed and 25 of fentanyl. Description Of Procedure: After risks, benefits, and alternatives were explained to the patient, pat ient agreed to proceed with procedure and signed informed consent. The patient was brought back to [facility] lab specialist, prepped and draped in sterile fashion. Time-out was performed. Sedation was administer ed. Next, right radial access was obtained using ultrasound-guided micropuncture technique. [place] 4 catheter was advanced over J-wire to the LV cavity. LVEDP was obtained. Pullback did not show any gradient. Same catheter was used for selective angiogram of the left and right coronary systems. At the end of procedure, catheter was pulled back to the left subclavian artery where no selective racquel ogram was done of the left subclavian and VÁSQUEZ. At the end of procedure, catheter was removed over a J-wire. Sheath was removed. TR band was applied. Hemostasis was achieved and patient was moved ba ck to Recovery in stable condition. Findings: 1. Left main: Proximal 30% disease, then mild luminal irregularities. 2. LAD with proximal 70% disease. Then, mid stent is patent with midportion of the stent got 40% ISR and distal edge of the stent got 40% to 50% ISR. Then, mid to distal mild luminal regularities. 3. Left circ: Ostial 70% to 80% disease, then mid stent got 60% ISR. 4. OM1: Large with ostial to proximal 70% disease, then the stent is patent, then mild luminal irreg ularities. 5. RCA with ostial to proximal 60% to 70% disease, then mild luminal regularities. 6. RPDA, RPLV: Mild luminal irregularities. 7. LVEDP is 15 mmHg. 8. Left subclavian artery/VÁSQUEZ is patent. Assessment/plan: Significant LAD, left circ, OM1, and RCA disease. Plan is to consult CT surgery as an outpatient for evaluation for CABG. SAHRA/JO Voice ID: [id number] Report ID: [id number]
== END 2024-06-13 11:30 | disposition home or self-care (01) ==
LOC: CCL 07:10
PROVIDERS: ATTEND Internal Medicine Interventional Cardiology
DX: I25.110 Atherosclerotic heart disease of native coronary artery with unstable angina pectoris (principal); T82.855A Stenosis of coronary artery stent, initial encounter; I11.0 Hypertensive heart disease with heart failure; I50.32 Chronic diastolic (congestive) heart failure; I65.23 Occlusion and stenosis of bilateral carotid arteries; E78.2 Mixed hyperlipidemia; E11.9 Type 2 diabetes mellitus without complications; Z95.5 Presence of coronary angioplasty implant and graft; Z79.82 Long term (current) use of aspirin; Z79.02 Long term (current) use of antithrombotics/antiplatelets; Z79.84 Long term (current) use of oral hypoglycemic drugs; Z79.899 Other long term (current) drug therapy; Z82.49 Family history of ischemic heart disease and other diseases of the circulatory system
CPT/HCPCS: 93005; 85025; 80048; 36415; 85610; 82947; 85730; 93458; 76937; C1893; Q9966; J1644; J2003; J2250; J3010; J2405; J7040; 99152; 99153; J0461

== ENCOUNTER 2024-06-21 11:38 | Emergency (ER) | payer OTHER ==
[2024-06-21] MEDS ORDERED: MECLIZINE HCL 12.5 MG TAB ONE (12:30)
[2024-06-21] MEDS ORDERED: NA CHLORIDE 0.9% 1,000 ML ONE (12:30)
[2024-06-21] MEDS ORDERED: ONDANSETRON 4 MG/2 ML VIAL ONE (12:30)
[2024-06-21 12:54] LABS: Absolute Eosinophils 0.1 K/uL (0-0.5); Absolute Lymphocytes (CBC) 1.2 K/uL (0.7-4.9); Absolute Monocytes 0.3 K/uL (0.1-1.3); Absolute Neutrophil 5.8 K/uL (1.8-8.0); Basophils % 0.7 % (0-1.3); Eosinophils % 1.4 % (0-4.4); Hematocrit 37.9 % (36.0-45.0); Hemoglobin 12.7 g/dL (12.0-15.0); Lymphocytes % 16.2 % (15.3-44.8); MCH 28.4 pg (27.0-35.0); MCHC 33.4 g/dL (32.0-36.0); MPV 8.7 fL (7.6-11.3); Neutrophils % 77.7 % (41.7-73.7); Platelets 328 thou/uL (152-406); RBC Red Blood Cell Count 4.46 M/uL (3.86-4.86); Red Cell Distribution Width 14.8 % (12.1-15.2)
[2024-06-21 12:57] LABS: Specific Gravity 1.013 (1.005-1.030); Sqamous Epithelial <5 /HPF (None Seen); Urine Bacteria <20 /HPF (<20); Urine Bilirubin NEGATIVE (Negative); Urine Blood Negative (Negative); Urine Clarity Clear (Clear); Urine Color Light-Yellow (Yellow); Urine Glucose 3+ (Negative); Urine Ketones NEGATIVE (Negative); Urine Micro Reflex YN NO BILL MICROSCOPIC; Urine Mucus Slight /HPF (None Seen); Urine Nitrite NEGATIVE (Negative); Urine Protein 3+ (Negative); Urine RBC None Seen /HPF (None Seen); Urine Urobilinogen Normal (Normal); Urine WBC <5 /HPF (<5); Urine pH 7.5 (5.0-7.0)
[2024-06-21 13:27] LABS: ALT/SGPT 22 U/L (13-56); AST/SGOT 15 U/L (15-37); Albumin 3.6 g/dL (3.4-5.0); Albumin/Globulin Ratio 0.8 (1.1-1.8); Alkaline Phosphatase 96 U/L (45-117); Anion Gap 7.9 mEq/L (5.0-15.0); BUN Blood Urea Nitrogen 12 mg/dL (7-18); Bicarbonate 27 mEq/L (21-32); Bilirubin Total 0.5 mg/dL (0.2-1.0); Globulin 4.7 g/dL (2.3-3.5); Glomerular Filtration Rate 74 ml/min (=/>90); Glucose Level 221 mg/dL (74-106); Magnesium 1.3 mg/dL (1.6-2.4); NT PRO-BNP 536 pg/mL (<450); Potassium 3.9 mEq/L (3.5-5.1); Protein, Total 8.3 g/dL (6.4-8.2); Sodium Level 134 mEq/L (136-145); Troponin High Sensitivity 9.2 pg/mL (<58.9)
[2024-06-21 13:28] LABS: Bilirubin Direct < 0.2 mg/dL (0-0.2); Bilirubin Indirect, Calculated 0.3 mg/dL (0.2-0.8)
--- NOTE | 2024-06-21 14:01 | EDPHYS ---
Physician Documentation [facility] Name: Rena Reddy Age: 78 yrs Sex: Female : 1945 Arrival Date: 06/21/2024 Time: 11:38 Bed 15 Private MD: ED Physician Alvaro Clemens HPI: 06/21 12:34 Chief Complaint Vertigo with dizziness and vomiting. History of Present Illness The jr11 patient presented with symptoms of vertigo, dizziness, and vomiting, which began early this morning. She has a history of vertigo that can be triggered by sinus infections and UTIs. Currently, she is being treated for a sinus infection, which she believes is exacerbating her vertigo. She reports vomiting approximately three times today but does not have any pain during urination or fever. Although she has been treated for vertigo in the past, she does not recall the medication used. Typically, her symptoms resolve when the underlying infection is treated. The patient recently completed a course of medication for a sinus infection, taking one pill in the morning and one at night, which was completed before the full 90 pills were taken. She is planning for open heart surgery in a few weeks. ROS otherwise negative. . Historical: - Allergies: 12:05 NKDA; db - PMHx: 12:05 diabetes mellitus; Hypertensive disorder; Myocardial infarction; db - PSHx: 12:05 cardiac stents; watchman; db - Immunization history:: Adult Immunizations unknown. - Infectious Disease History:: Denies. - Social history:: Smoking status: Patient denies any tobacco usage or history of. Exam: 12:34 Constitutional: This is a well developed, well nourished patient who is awake, alert, jr11 and in no acute distress. Head/Face: Normocephalic, atraumatic. ENT: Nares patent. No nasal discharge, no septal abnormalities noted. Oropharynx with no redness, swelling, or masses, exudates, or evidence of obstruction, uvula midline. Mucous membranes moist. Chest/axilla: Normal chest wall appearance and motion. Nontender with no deformity. No lesions are appreciated. Cardiovascular: Regular rate and rhythm with a normal S1 and S2. No gallops, murmurs, or rubs. Normal PMI, no JVD. No pulse deficits. Respiratory: Lungs have equal breath sounds bilaterally, clear to auscultation and percussion. No rales, rhonchi or wheezes noted. No increased work of breathing, no retractions or nasal flaring. Abdomen/GI: Soft, non-tender, with normal bowel sounds. No distension or tympany. No guarding or rebound. No evidence of tenderness throughout. Back: No spinal tenderness. No costovertebral tenderness. Full range of motion. Skin: Warm, dry with normal turgor. Normal color with no rashes, no lesions, and no evidence of cellulitis. MS/ Extremity: Pulses equal, no cyanosis. Neurovascular intact. Full, normal range of motion. Neuro: Awake and alert, GCS 15, oriented to person, place, time, and situation. No gross motor or sensory deficits. NIHSS=0 Vital Signs: 12:03 BP 155 / 70; Pulse 75; Resp 16; Temp 97.7(O); Pulse Ox 100% on R/A; Weight 62.14 kg; db Height 5 ft. 0 in. ; Pain 0/10; 13:00 BP 148 / 66; Pulse 63; Resp 16; Pulse Ox 98% ; me1 14:00 BP 147 / 53; Pulse 59; Resp 16; Temp 98.2; Pulse Ox 93% ; me1 12:03 Body Mass Index 26.76 (62.14 kg, 152.4 cm) db 12:03 Pain Scale: Adult db MDM: 12:05 Medical Screening Exam initiated jr11 12:34 Differential diagnosis: Medical Decision Making Given the patient's symptoms of jr11 vertigo, dizziness, and vomiting, differential diagnoses include benign paroxysmal positional vertigo (BPPV), Meniere's disease, vestibular neuritis, and labyrinthitis. Although less likely, life-threatening conditions such as a posterior circulation stroke or intracranial mass should be considered. It is important to assess if the current sinus infection is contributing to her symptoms and to rule out any urinary infection involvement. Plan - Obtain a urine sample to check for possible UTI. - Initiate IV fluids for hydration and symptom management. - Administer medication to alleviate vertigo symptoms and nausea. - Monitor vital signs and response to treatment. - Prepare for a stay of about 1.5 to 2 hours for evaluation and treatment. - Reassess symptoms and adjust treatment as needed. - Ensure coordination of care with upcoming open heart surgery. 12:59 Data reviewed: 9 EKG interpreted by me shows normal sinus rhythm, normal axis, normal jr11 intervals, no acute ST changes. EKG normal. environmental monitoring specialist interpreted by me shows normal sinus rhythm rate of 60. 14:00 ED course: Patient with hyperglycemia, given slight amount of fluids, did not use her jr11 insulin but feels comfortable managing at home. Denies any change in character in the vertigo, consider CT scan but not necessary at this point. Patient tolerating p.o. feeling significantly better. Patient with CT evidence of sinusitis, feels that it may not be completely resolved, will prescribe Augmentin.. 06/21 12:08 Order name: Basic Metabolic Panel; Complete Time: 13:55 [facility] 06/21 12:08 Order name: CBC with Diff; Complete Time: 13:08 [facility] 06/21 12:08 Order name: LFT's; Complete Time: 13:55 [facility] 06/21 12:08 Order name: Magnesium; Complete Time: 13:55 [facility] 06/21 12:08 Order name: NT PRO-BNP; Complete Time: 13:55 06/21 12:08 Order name: Troponin HS; Complete Time: 13:55 06/21 12:08 Order name: Urine W/Microscopic (UAM); Complete Time: 13:08 [facility] 06/21 12:08 Order name: Cardiac monitoring; Complete Time: 12:59 06/21 12:08 Order name: EKG - Nurse/Tech; Complete Time: 12:59 06/21 12:08 Order name: IV Saline Lock; Complete Time: 12:55 06/21 12:08 Order name: Labs collected and sent; Complete Time: 12:55 06/21 12:08 Order name: O2 Per Protocol; Complete Time: 12:59 06/21 12:08 Order name: O2 Sat Monitoring; Complete Time: 12:59 Administered Medications: 12:54 Drug: Meclizine PO 50 mg PO once Route: PO; ph 13:58 Follow up: Response: No adverse reaction; Marked relief of symptoms me1 12:55 Drug: Ondansetron IVP 4 mg IVP once; over 2 minutes Route: IVP; Site: right antecubital;ph 13:57 Follow up: Response: No adverse reaction; Nausea is decreased me1 12:56 Drug: NS 0.9% IV 1000 ml IV at 1000 ml once; to be given as a bolus over 60 minutes ph Route: IV; Rate: 1000 ml; Site: right antecubital; 14:15 Follow up: Response: No adverse reaction; IV Status: Completed infusion; IV Intake: me1 1000ml Disposition Summary: 06/21/24 14:01 Discharge Ordered Notes: Please follow up PCP in 2-3 days if not better
Location: Home [facility] Condition: Stable [facility] Diagnosis - Other peripheral vertigo jr11 Discharge Instructions: - Discharge Summary Sheet 11 Forms: - Medication Reconciliation Form jr11 - Antibiotic Education jr11 - Prescription Opioid Use jr11 - Patient Portal Instructions jr11 - Leadership Thank You Letter jr11 Prescriptions: - ondansetron 4 mg Oral Tablet,disintegrating - take 1 tablet ORAL route every 4 hours as needed for nausea and vomiting; 12 jr11 tablet; Refills: 0, Product Selection Permitted - Meclizine 25 mg Oral tablet - take 1 tablet ORAL route every 8 hours As needed prn vertigo; 30 tablet; jr11 Refills: 0, Product Selection Permitted Signatures: Dispatcher [employer] EDMS Zoraida Guerrero RN RN Alvaro Urbina MD MD jr11 Shelli Barnes RN RN db Emilia Stephens RN me1 Corrections: (The following items were deleted from the chart) 12:08 12:08 BASIC METABOLIC PANEL+C.LAB.BRZ ordered. EDMS EDMS 12:08 12:08 CBC+H.LAB.BRZ ordered. EDMS EDMS 12:08 12:08 HEPATIC FUNCTION+C.LAB.BRZ ordered. EDMS EDMS 12:08 12:08 MAGNESIUM+C.LAB.BRZ ordered. EDMS EDMS 12:08 12:08 PROBNP+C.LAB.BRZ ordered. EDMS EDMS 12:08 12:08 Troponin High Sensitivity+C.LAB.BRZ ordered. EDMS EDMS 12:08 12:08 Urinalysis W/Microscopic+U.LAB.BRZ ordered. EDMS EDMS
--- NOTE | 2024-06-21 14:01 | ER ---
Nurse's Notes [facility] Name: Rena Reddy Age: 78 yrs Sex: Female : 1945 Arrival Date: 06/21/2024 Time: 11:38 Bed 15 Private MD: Diagnosis: Other peripheral vertigo Presentation: 06/21 12:03 Chief complaint: Patient states: STATES VOMITING, NAUSEA AND DIZZINESS IS BEING TREATED db FOR A SINUS INFECTION. HX OF VERTIGO STATES HAPPENS WHEN TAKES ANTIBIOTICS OR HAS UTI. Coronavirus screen: Client denies travel out of the [place] in the last 14 days. At this time, the client does not indicate any symptoms associated with coronavirus-19. Ebola Screen: Patient negative for fever greater than or equal to 101.5 degrees Fahrenheit, and additional compatible Ebola Virus Disease symptoms Patient denies exposure to infectious person. Patient denies travel to an Ebola-affected area in the 21 days before illness onset. No symptoms or risks identified at this time. Initial Sepsis Screen: Does the patient meet any 2 criteria? No. Patient's initial sepsis screen is negative. Does the patient have a suspected source of infection? No. Patient's initial sepsis screen is negative. Risk Assessment: Do you want to hurt yourself or someone else? Patient reports no desire to harm self or others. Onset of symptoms was June 21, 2024. 12:03 Method Of Arrival: Ambulatory db 12:03 Acuity: JULES 3 db Triage Assessment: 12:05 General: Appears in no apparent distress. uncomfortable, Behavior is calm, cooperative. db Pain: Denies pain. Neuro: Level of Consciousness is awake, alert, obeys commands, Oriented to person, place, time, situation, Reports dizziness. Respiratory: Airway is patent Respiratory effort is even, unlabored, Respiratory pattern is regular, symmetrical. GI: Abdomen is non-distended, Reports nausea, vomiting. Historical: - Allergies: 12:05 NKDA; db - PMHx: 12:05 diabetes mellitus; Hypertensive disorder; Myocardial infarction; db - PSHx: 12:05 cardiac stents; watchman; db - Immunization history:: Adult Immunizations unknown. - Infectious Disease History:: Denies. - Social history:: Smoking status: Patient denies any tobacco usage or history of. Screenin:16 [facility] ED Fall Risk Assessment (Adult) History of falling in the last 3 months, me1 including since admission No falls in past 3 months (0 pts) Confusion or Disorientation No (0 pts) Intoxicated or Sedated No (0 pts) Impaired Gait No (0 pts) Mobility Assist Device Used No (0 pt) Altered Elimination No (0 pt) Score/Fall Risk Level 0 - 2 = Low Risk Maintained a safe environment, Provided non-skid footwear, Hourly rounding (assess needs \T\ fall precautionary measures) done. Abuse screen: Denies threats or abuse. Nutritional screening: No deficits noted. Tuberculosis screening: No symptoms or risk factors identified. Assessment: 12:10 General: Appears uncomfortable, well developed, well nourished, Behavior is calm, me1 cooperative, appropriate for age, Reports STATES VOMITING, NAUSEA AND DIZZINESS IS BEING TREATED FOR A SINUS INFECTION. HX OF VERTIGO STATES HAPPENS WHEN TAKES ANTIBIOTICS OR HAS UTI. Pain: Denies pain. Neuro: Level of Consciousness is awake, alert, obeys commands, Oriented to person, place, time, situation, Appropriate for age. Neuro: Reports dizziness. Cardiovascular: Patient's skin is warm and dry. Respiratory: Airway is patent Respiratory effort is even, unlabored, Respiratory pattern is regular, symmetrical. GI: Reports nausea, vomiting, w/vertigo. 12:10 GI: Abdomen is distended. : No signs and/or symptoms were reported regarding the me1 genitourinary system. EENT: No signs and/or symptoms were reported regarding the EENT system. Derm: Skin is intact, is healthy with good turgor, Skin is pink, warm \T\ dry. Musculoskeletal: No signs and/or symptoms reported regarding the musculoskeletal system. Vital Signs: 12:03 BP 155 / 70; Pulse 75; Resp 16; Temp 97.7(O); Pulse Ox 100% on R/A; Weight 62.14 kg; db Height 5 ft. 0 in. ; Pain 0/10; 13:00 BP 148 / 66; Pulse 63; Resp 16; Pulse Ox 98% ; me1 14:00 BP 147 / 53; Pulse 59; Resp 16; Temp 98.2; Pulse Ox 93% ; me1 12:03 Body Mass Index 26.76 (62.14 kg, 152.4 cm) db 12:03 Pain Scale: Adult db ED Course: 11:47 Patient arrived in ED. cj3 11:59 Alvaro Clemens MD is Attending Physician. jr11 12:05 Triage completed. db 12:06 Arm band placed on Patient placed in an exam room. db 12:10 No provider procedures requiring assistance completed. me1 12:15 Patient has correct armband on for positive identification. Bed in low position. Call me1 light in reach. Side rails up X2. Provided Education on: POC. Verbalized understanding.. Client placed on continuous cardiac and pulse oximetry monitoring. NIBP monitoring applied. cloth seconds sorter on. Pulse ox on. NIBP on. 12:18 Emilia Stephens, RN is Primary Nurse. me1 12:45 Initial lab(s) drawn, by me, sent to lab. Urine collected: clean catch specimen. ph Inserted saline lock: 22 gauge in right antecubital area, using aseptic technique. Blood collected. Flushed with 10 mL NS. 12:55 Urine W/Microscopic (UAM) Sent. ph 12:59 EKG done, by ED staff, reviewed by Alvaro Clemens MD. me1 14:30 IV discontinued, intact, bleeding controlled, No redness/swelling at site. Pressure me1 dressing applied. Administered Medications: 12:54 Drug: Meclizine PO 50 mg PO once Route: PO; ph 13:58 Follow up: Response: No adverse reaction; Marked relief of symptoms me1 12:55 Drug: Ondansetron IVP 4 mg IVP once; over 2 minutes Route: IVP; Site: right antecubital;ph 13:57 Follow up: Response: No adverse reaction; Nausea is decreased me1 12:56 Drug: NS 0.9% IV 1000 ml IV at 1000 ml once; to be given as a bolus over 60 minutes ph Route: IV; Rate: 1000 ml; Site: right antecubital; 14:15 Follow up: Response: No adverse reaction; IV Status: Completed infusion; IV Intake: me1 1000ml Medication: 14:16 VIS not applicable for this client. me1 Intake: 14:15 IV: 1000ml; Total: 1000ml. me1 Outcome: 14:01 Discharge ordered by . jr11 14:30 Discharged to home via wheelchair, with family, me1 14:30 Condition: stable 14:30 Discharge instructions given to patient, family, Instructed on discharge instructions, follow up and referral plans. medication usage, Demonstrated understanding of instructions, follow-up care, medications, Prescriptions given X 2, 14:30 Patient left the ED. me1 Signatures: Zoraida Guerrero RN RN Alvaro Clemens MD MD jr11 Shelli Barnes RN RN db Emilia Stephens RN RN me1 Barbara Retana cj3 Corrections: (The following items were deleted from the chart) 13:42 12:03 Chief complaint: Patient states: STATES VOMITING, NAUSEA AND DIZZINESS IS BEING me1 TREATED FOR A SINUS INFECTION. HX OF VERTIGO STATES HAPPENS WHEN TAKES ANTIBIOTICS OR HAS UTI db 13:43 12:03 Chief complaint: Patient states: STATES VOMITING, NAUSEA AND DIZZINESS IS BEING me1 TREATED FOR A SINUS INFECTION. HX OF VERTIGO STATES HAPPENS WHEN TAKES ANTIBIOTICS OR HAS UTI [facility] 14:17 12:10 GI: Reports nausea, vomiting, w/vertigo [place] [id number] 14:18 14:16 GI: Abdomen is distended, [place] [id number] 14:18 14:16 : No signs and/or symptoms were reported regarding the genitourinary system. [facility] 14:18 14:16 EENT: No signs and/or symptoms were reported regarding the EENT system. [place] [id number] 14:18 14:16 Derm: Skin is intact, is healthy with good turgor, Skin is pink, warm \T\ dry. [place] [id number] 14:18 14:16 Musculoskeletal: No signs and/or symptoms reported regarding the musculoskeletal vt1 system. me1
[2024-06-21 14:59] VITALS: BP 147/53; TEMP 98.2; O2SAT 93
== END 2024-06-21 14:30 | disposition home or self-care (01) ==
LOC: ER 11:38
DX: H81.399 Other peripheral vertigo, unspecified ear (principal); I10 Essential (primary) hypertension; I25.2 Old myocardial infarction; E11.9 Type 2 diabetes mellitus without complications; Z95.818 Presence of other cardiac implants and grafts
CPT/HCPCS: 85025; 81001; 80048; 36415; 83735; 80076; 84484; 83880; J8597; J2405; J7030; 93005

== ENCOUNTER 2024-12-04 10:55 | Day surgery (SDC) | payer OTHER ==
[2024-11-30 14:19] LABS: PT Prothrombin Time 13.0 SECONDS (10-13.0); PTT, Activated Partial Thromb 27.3 SECONDS (27.2-37.4); Protime INR 1.16
--- NOTE | 2024-11-30 14:20 | RAD REPORT ---
EXAMINATION: TWO VIEW CHEST XR CLINICAL INDICATION: pre procedure. TECHNIQUE: 2 views of the chest was performed. COMPARISON: No prior exam. FINDINGS: The lungs are well inflated and clear. The heart is upper limit of normal in size. No displaced fract ures evident. Sternotomy wires. IMPRESSION: No acute or significant abnormalities.
[2024-11-30 14:27] LABS: Anion Gap 11.0 mEq/L (5.0-15.0); BUN Blood Urea Nitrogen 33.0 mg/dL (7-18); Glucose Level 150.0 mg/dL (74-106); Potassium 4.0 mEq/L (3.5-5.1)
[2024-11-30 15:02] LABS: Absolute Lymphocytes (CBC) 1.2 K/uL (0.7-4.9); Hematocrit 29.9 % (36.0-45.0); Hemoglobin 9.4 g/dL (12.0-15.0); MCH 25.0 pg (27.0-35.0); MCHC 31.6 g/dL (32.0-36.0); MCV 79.1 fL (80-100); MPV 7.7 fL (7.6-11.3); Nucleated RBC Absolute Count 0.0 (0-0); Nucleated Red Blood Cells % 0.0 % (0-0); RBC Red Blood Cell Count 3.78 M/uL (3.86-4.86); White Blood Count 6.80 thou/uL (4.3-10.9)
[2024-12-04] MEDS ORDERED: NA CHLORIDE 0.9% 500 ML ONE (11:44)
[2024-12-04] MEDS ORDERED: FENTANYL CITR 100 MCG/2 ML ONE (11:48)
[2024-12-04] MEDS ORDERED: MIDAZOLAM HCL 2 MG/2 ML INJ ONE (11:49)
[2024-12-04] MEDS ORDERED: LIDOCAINE 1% 20 ML MDV ONE (11:51)
[2024-12-04] MEDS ORDERED: HEPA 1000U/500MLS 2,000 UNIT/1,000 ML BAG IV ONE (11:51)
[2024-12-04 15:23] VITALS: BP 145/50; O2SAT 99
--- NOTE | 2024-12-04 21:51 | OP ---
Date of Procedure: 12/04/2024 Surgeon: ALYSSA WHELAN Procedure Performed: 1. Selective coronary angiogram with bypass graft study. 2. Left heart catheterization. Indication: Chest pain with abnormal stress test. Access: Right common femoral artery 6-Chadian closed with the 6-Chadian Mynx closure device. Complications: None. Bleeding: Less than 50 mL. Total Sedation Time: 1 hour, used fentanyl and Versed. Description Of Procedure: After risks, benefits, and alternatives were explained, the patient agreed to procedure and signed informed consent. The patient was brought into cardiac catheterization [facility], prepped and draped in the usual sterile fashion. Then, I accessed right common femoral arter y using micropuncture kit, ultrasound guidance, fluoroscopy, placed 6-Chadian [place] sheath and took a 6-Chadian JL4 catheter into aortic root, engaged left main, took standard views and exchanged for 6 -Chadian JR4 catheter across the aortic valve over the wire, measured the LVEDP. Pullback did not rec ord any gradient and then I engaged the SVG graft to RCA and the SVG graft that is a Jump graft gives LAD, OM, and diagonal 1 branch with blood flow and then I removed the catheter and the sheath, and 6 -Chadian Mynx closure device was used for closure with good hemostasis. Findings: 1. Left main is normal. 2. LAD; proximal 60%, widely patent stent, and then there is a focal 50% stenosis. 3. Left circumflex; ostial 60% to 70%, widely patent OM stent. 4. RCA; proximal 70%. Bypass Graft Study: 1. Widely patent SVG to RCA. 2. SVG that has 3 branches is going to the OM, LAD and diagonal branch have no significant disease. 3. LVEDP is normal at 9 mmHg. Conclusion: 1. Multivessel coronary artery disease with open four SVG grafts, so there is no VÁSQUEZ. VÁSQUEZ is not a ttached to the . 2. Normal LVEDP. Recommendation: Medical management. SR/MODL Voice ID: [id number] Report ID: [id number]
== END 2024-12-04 15:00 | disposition home health service (06) ==
LOC: CCL 10:55
PROVIDERS: ATTEND Internal Medicine
DX: I25.10 Atherosclerotic heart disease of native coronary artery without angina pectoris (principal); I11.0 Hypertensive heart disease with heart failure; I50.32 Chronic diastolic (congestive) heart failure; I65.23 Occlusion and stenosis of bilateral carotid arteries; E11.9 Type 2 diabetes mellitus without complications; E78.2 Mixed hyperlipidemia; Z95.5 Presence of coronary angioplasty implant and graft; Z79.02 Long term (current) use of antithrombotics/antiplatelets; Z79.82 Long term (current) use of aspirin; Z79.899 Other long term (current) drug therapy; Z82.49 Family history of ischemic heart disease and other diseases of the circulatory system
CPT/HCPCS: 93005; 85025; 80048; 36415; 85610; 82947; 85730; 71046; 93459; 76937; C1893; Q9967; J2003; J2250; J3010; J1644; J7040; 99152; 99153

== ENCOUNTER 2024-12-23 13:07 | Observation (INO) | payer OTHER ==
[2024-12-23] MEDS ORDERED: ONDANSETRON 4 MG/2 ML VIAL ONE ×2 (14:13→15:15)
[2024-12-23] MEDS ORDERED: FAMOTIDINE 20 MG/2 ML VIAL IV ONE (14:14)
[2024-12-23] MEDS ORDERED: FENTANYL CITR 100 MCG/2 ML ONE (14:14)
[2024-12-23] MEDS ORDERED: NA CHLORIDE 0.9% 500 ML ONE (14:15)
[2024-12-23 14:24] LABS: Absolute Lymphocytes (CBC) 1.2 K/uL (0.7-4.9); Hematocrit 30.3 % (36.0-45.0); Hemoglobin 9.2 g/dL (12.0-15.0); MCH 24.9 pg (27.0-35.0); MCHC 30.2 g/dL (32.0-36.0); MCV 82.2 fL (80-100); MPV 8.4 fL (7.6-11.3); Nucleated RBC Absolute Count 0.0 (0-0); Nucleated Red Blood Cells % 0.1 % (0-0); RBC Red Blood Cell Count 3.69 M/uL (3.86-4.86); White Blood Count 4.90 thou/uL (4.3-10.9)
[2024-12-23 14:30] LABS: PT Prothrombin Time 12.8 SECONDS (10-13.0); Protime INR 1.14
--- NOTE | 2024-12-23 14:39 | RAD REPORT ---
Procedure: Chest Single View HISTORY: Chest pain COMPARISON: November 2024 FINDINGS: The lungs appear clear of acute infiltrate. No significant pleural effusion noted. The heart is normal size. Post surgical changes involve the chest IMPRESSION: No acute abnormality is displayed.
[2024-12-23 14:47] LABS: ALT/SGPT 19 U/L (13-56); AST/SGOT 11 U/L (15-37); Albumin 3.1 g/dL (3.4-5.0); Albumin/Globulin Ratio 0.9 (1.1-1.8); Alkaline Phosphatase 59 U/L (45-117); Anion Gap 9.5 mEq/L (5.0-15.0); BUN Blood Urea Nitrogen 26 mg/dL (7-18); Bilirubin Indirect, Calculated 0.1 mg/dL (0.2-0.8); Globulin 3.5 g/dL (2.3-3.5); Glucose Level 108 mg/dL (74-106); Lipase 35 U/L (13-75); Magnesium 1.2 mg/dL (1.6-2.4); NT PRO-BNP 1771 pg/mL (<450); Potassium 4.5 mEq/L (3.5-5.1); Troponin High Sensitivity 11.5 pg/mL (<58.9)
[2024-12-23] MEDS ORDERED: Magnesium Sulfate 2gm IVPB 2 G/50 ML BAG IV ONE (15:12)
[2024-12-23] MEDS ORDERED: PROMETHAZINE INJ 25 MG/ML AMP ONE (15:15)
[2024-12-23] MEDS ORDERED: NA CHLORIDE 0.9% 100 ML ONE (15:15)
--- NOTE | 2024-12-23 16:41 | RAD REPORT ---
EXAM: CTA of the chest, abdomen and pelvis HISTORY: Chest pain and back pain ABD PAIN COMPARISON: None TECHNIQUE: Multiple contiguous axial images were obtained a CTA of the chest and abdomen with contras t per aortic dissection protocol. This involves 3D reconstructions, MIPs, volume rendered images and/or shaded surface rendering. One or more of the following dose reduction techniques were used: Au tomated exposure control, adjustment of the mA and/or kV according to patient size, and/or iterative reconstruction. Unless otherwise specified, incidental findings do not require dedicated im aging follow-up. Sagittal and coronal 3-D MIP reformats were performed. FINDINGS: PULMONARY ARTERIES: Normal in caliber without filling defects to suggest pulmonary emboli. ASCENDING THORACIC AORTA: Normal caliber without evidence of dissection or aneurysmal dilatation. Mi ld atherosclerotic plaquing. DESCENDING THORACIC AORTA: Normal caliber without evidence of dissection or aneurysmal dilatation. M ild atherosclerotic plaquing. ABDOMINAL AORTA: Moderate atherosclerotic plaquing without aneurysm. Moderate stenosis of the infrare nal abdominal aorta caused by mixed plaque. CELIAC TRUNK: Mild ostial plaquing. SMA: Mild/moderate ostial plaquing. SYMONE: Patent RENAL ARTERIES: Bilateral renal artery ostial plaquing, moderate in severity. MEDIASTINUM: No hilar or mediastinal lymphadenopathy. LUNGS: Patchy airspace opacities are present in both posterior lung bases, greater on the right. PLEURAL SPACE: Trace pleural fluid bilaterally. LIVER: Mild fatty liver.. Cholecystectomy clips. SPLEEN: Unremarkable. PANCREAS: Unremarkable. KIDNEYS: 11 mm calculus inferior pole right kidney. No hydronephrosis.. ADRENALS: Unremarkable. BOWEL: Moderate stool is retained throughout the colon.. Normal appendix. RETROPERITONEUM: No lymphadenopathy. BONES: Degenerative changes in the spine. IMPRESSION: No evidence of thoracic or abdominal aortic aneurysm or dissection. Moderate atherosclerosis. Patchy infiltrate in both posterior lung bases may represent mild pneumonia.
--- NOTE | 2024-12-23 16:44 | RAD REPORT ---
EXAMINATION: CAROTID DUPLEX ULTRASOUND CLINICAL INDICATION: DIZZINESS TECHNIQUE: Real-time grayscale, color flow and spectral Doppler sonographic images were obtained of t he extracranial carotid system using a linear transducer. COMPARISON: No prior exam. FINDINGS: RIGHT: Common carotid artery: 41 cm/s Internal carotid artery: 178 cm/s External carotid artery: 112 cm/s Right ICA/CCA ratio: 4.3 Plaque: Moderate plaque Vertebral artery Antegrade LEFT: Common carotid artery: 58 cm/s Internal carotid artery: 159 cm/s External carotid artery: 156 cm/s Left ICA/CCA ratio: 2.7 Plaque: Moderate plaquing Vertebral artery Antegrade IMPRESSION: Moderate plaquing with probable hemodynamically significant stenosis on the left. Elevated right ICA to CCA ratio is present. The degrees of stenosis, if any, are quantified according to the consensus statement of the Society o f Radiologists in Ultrasound (SRUS). Please refer to Donavon E, Edin C, Yolie G et al. Carotid Artery Stenosis: Souza-Scale and Doppler US Diagnosis--Society of Radiologists in Ultrasound Consensus Conference. Radiology. 2003;229(2):340-6.
--- NOTE | 2024-12-23 16:59 | ER ---
Nurse's Notes [facility] Name: Rena Reddy Age: 79 yrs Sex: Female : 1945 Arrival Date: 12/23/2024 Time: 13:07 Bed 5 Private MD: Diagnosis: Chest pain, unspecified;Low back pain;Pneumonia, unspecified organism;Hypomagnesemia;Anemia, unspecified Presentation: 12/23 13:27 Chief complaint: Patient states: reports right sided neck pain that started 2 days ago. me1 intermittent bilateral lower back pain x 2 days. Fatigue and nausea that started yesterday. pain 6/10. Coronavirus screen: Vaccine status: Patient reports receiving the 2nd dose of the covid vaccine. Ebola Screen: No symptoms or risks identified at this time. Initial Sepsis Screen: Does the patient meet any 2 criteria? No. Patient's initial sepsis screen is negative. Does the patient have a suspected source of infection? No. Patient's initial sepsis screen is negative. Risk Assessment: Do you want to hurt yourself or someone else? Patient reports no desire to harm self or others. Onset of symptoms was December 21, 2024. 13:27 Method Of Arrival: Ambulatory nh1 13:27 Acuity: JULES 3 me1 Historical: - Allergies: 13:29 NKDA; me1 - PMHx: 13:29 diabetes mellitus; Hypertensive disorder; Myocardial infarction; me1 - PSHx: 13:29 cardiac stents; watchman; Coronary artery bypass graft; carotidendarterectomy right; me1 - Immunization history:: Adult Immunizations up to date. - Infectious Disease History:: Denies. - Social history:: Smoking status: Patient denies any tobacco usage or history of. Screenin:00 [facility] ED Fall Risk Assessment (Adult) History of falling in the last 3 months, aa5 including since admission No falls in past 3 months (0 pts) Confusion or Disorientation No (0 pts) Intoxicated or Sedated No (0 pts) Impaired Gait No (0 pts) Mobility Assist Device Used No (0 pt) Altered Elimination No (0 pt) Score/Fall Risk Level 0 - 2 = Low Risk Oriented to surroundings, Maintained a safe environment, Educated pt \T\ family on fall prevention, incl call for assistance when getting out of bed, Assessed \T\ reinforced patient's understanding of fall precautions. Abuse screen: Denies threats or abuse. Nutritional screening: No deficits noted. Tuberculosis screening: No symptoms or risk factors identified. Assessment: 14:00 General: Appears uncomfortable, Behavior is calm, cooperative. Pain: Complains of pain aa5 in right side of neck and lower back Pain does not radiate. Pain currently is 7 out of 10 on a pain scale. Quality of pain is described as sharp, Pain began 2-3 days ago. Is intermittent. Neuro: Level of Consciousness is awake, alert, obeys commands, Oriented to person, place, time, situation. Cardiovascular: Heart tones S1 S2 present Rhythm is sinus rhythm. Respiratory: Airway is patent Respiratory effort is even, unlabored, Respiratory pattern is regular, symmetrical. GI: No signs and/or symptoms were reported involving the gastrointestinal system. : No signs and/or symptoms were reported regarding the genitourinary system. EENT: No signs and/or symptoms were reported regarding the EENT system. Derm: Skin is pink, warm \T\ dry. Musculoskeletal: Range of motion: intact in all extremities. 15:19 Reassessment: Patient is alert, oriented x 3, equal unlabored respirations, skin aa5 warm/dry/pink. Pt actively vomiting, MD was notified. . 15:56 Reassessment: ultrasound is at bedside. ap3 16:15 Reassessment: Patient is alert, oriented x 3, equal unlabored respirations, skin aa5 warm/dry/pink. Patient states feeling better. Pt to CT scan via stretcher . 16:35 Reassessment: Patient is alert, oriented x 3, equal unlabored respirations, skin aa5 warm/dry/pink. Patient states feeling better. Patient states symptoms have improved. Pain: Pain currently is 0 out of 10 on a pain scale. 18:10 Reassessment: Faxed report to admitting nurse. . aa5 Vital Signs: 13:27 BP 133 / 65; Pulse 64; Resp 16; Temp 98.4; Pulse Ox 100% ; Weight 66.22 kg; Height 5 me1 ft. 0 in. ; Pain 6/10; 15:57 BP 141 / 58; Pulse 65; Resp 17; Pulse Ox 97% ; ap3 16:10 BP 143 / 61; Pulse 66; Resp 16 S; Pulse Ox 100% on R/A; aa5 18:00 BP 143 / 70; Pulse 82; Resp 16 S; Temp 98.2(O); Pulse Ox 98% on R/A; aa5 19:15 BP 156 / 57; Pulse 63; Resp 16; Pulse Ox 98% ; af3 13:27 Body Mass Index 28.51 (66.22 kg, 152.4 cm) me1 13:27 Pain Scale: Adult nh1 ED Course: 13:11 Patient arrived in ED. cj3 13:19 Stefano Arnold MD is Attending Physician. abby 13:29 Triage completed. me1 13:29 Arm band placed on Patient placed in waiting room. me1 14:04 Missed attempt(s): 20 gauge in right antecubital area. Bleeding controlled, band aid pm7 applied, catheter tip intact. 14:04 Inserted saline lock: 20 gauge in right antecubital area, using aseptic technique. pm7 Blood collected. Flushed with 10 mL NS. 14:06 Jia Del Valle RN is Primary Nurse. kb4 14:24 Primary Nurse role handed off by Jia Del Valle, PADMA aa5 14:24 Zonia Wall, PADMA is Primary Nurse. aa5 14:26 XRAY Chest (1 view) In Process Unspecified. EDMS 15:19 Radiology exam delayed due to CT has patient. mr4 15:59 Patient has correct armband on for positive identification. Bed in low position. Call ap3 light in reach. Side rails up X2. Client placed on continuous cardiac and pulse oximetry monitoring. NIBP monitoring applied. credentialing manager on. Pulse ox on. NIBP on. 16:19 No provider procedures requiring assistance completed. aa5 16:21 US Carotid Artery Bilateral In Process Unspecified. EDMS 16:27 CT Aorta for Dissection In Process Unspecified. EDMS 16:57 Pawan Diaz is Hospitalizing Provider. abby 18:16 Patient admitted, IV remains in place. aa5 19:58 Provided Education on: admission. cp4 Administered Medications: 14:24 Drug: NS 0.9% IV 500 ml 500 ml IV at 1 bolus once; to be given as a bolus over 30 aa5 minutes Volume: 500 ml; Route: IV; Rate: 1 bolus; Site: right antecubital; 14:24 Drug: fentaNYL (PF) IVP 50 mcg IVP once Route: IVP; Site: right antecubital; aa5 14:30 Follow up: Response: No adverse reaction aa5 14:24 Drug: Ondansetron IVP 4 mg IVP once; over 2 minutes Route: IVP; Site: right antecubital;aa5 14:30 Follow up: Response: No adverse reaction aa5 14:24 Drug: Famotidine IVP 20 mg IVP once; dilute with 10 mL 0.9% NaCl; give over 2 minutes aa5 Route: IVP; Site: right antecubital; 14:30 Follow up: Response: No adverse reaction aa5 15:22 Drug: Ondansetron IVP 4 mg IVP once; over 2 minutes Route: IVP; Site: right antecubital;aa5 15:30 Follow up: Response: No adverse reaction aa5 15:22 Drug: Promethazine IM 12.5 mg IM once; DO NOT GIVE IM. PLACE IN 100CC NS BAG, aa5 ADMINISTER IVPB. {Note: GIVEN IV PER MD.} Route: IM; Site: Other; 15:52 Follow up: Response: No adverse reaction; Marked relief of symptoms; Nausea is decreasedaa5 15:54 Drug: Magnesium Sulfate IVPB 2 grams IVPB once over 2 hrs Route: IVPB; Infused Over: 2 ap3 hrs; Site: right antecubital; 17:54 Follow up: IV Status: Completed infusion aa5 18:05 Drug: levofloxacin IVPB 500 mg 100 ml IVPB once over 60 mins Volume: 100 ml; Route: aa5 IVPB; Infused Over: 60 mins; Site: right antecubital; 20:01 Follow up: IV Status: Completed infusion cp4 Medication: 16:18 VIS not applicable for this client. aa5 Outcome: 16:58 Decision to Hospitalize by Provider. abby 19:58 Admitted to Med/surg accompanied by tech, room 231, with chart, cp4 19:58 Condition: stable 19:58 Instructed on the need for admit, 20:01 Patient left the ED. cp4 Signatures: Dispatcher [employer] Stefano Rees MD MD cha Calderon, Audri RN RN aa5 Yany Casanova RN RN ap3 Emilia Stephens RN RN nh1 Francine Dow cp4 Leesa Keenan RN RN af3 Erik Razo mr4 Jia Del Valle, RN RN kb4 Barbara Retana cj3 Kathy Rosenthal pm7
--- NOTE | 2024-12-23 16:59 | EDPHYS ---
Physician Documentation [facility] Name: Rena Reddy Age: 79 yrs Sex: Female : 1945 Arrival Date: 12/23/2024 Time: 13:07 Bed 5 Private MD: ED Physician Stefano Arnold HPI: 12/23 16:49 This 79 yrs old Female presents to ER via Ambulatory with complaints of Neck abby Pain, Back Pain, Fatigue, Nausea. 16:49 The patient presents with pain that is acute, with no known mechanism of injury. The abby symptoms are located in the low back. Historical: - Allergies: 13:29 NKDA; me1 - PMHx: 13:29 diabetes mellitus; Hypertensive disorder; Myocardial infarction; me1 - PSHx: 13:29 cardiac stents; watchman; Coronary artery bypass graft; carotidendarterectomy right; me1 - Immunization history:: Adult Immunizations up to date. - Infectious Disease History:: Denies. - Social history:: Smoking status: Patient denies any tobacco usage or history of. ROS: 16:51 Constitutional: Negative for fever, chills, and weight loss, Eyes: Negative for injury, abby pain, redness, and discharge, ENT: Negative for injury, pain, and discharge, Respiratory: Negative for shortness of breath, cough, wheezing, and pleuritic chest pain, Back: Negative for injury and pain, : Negative for injury, bleeding, discharge, and swelling, MS/Extremity: Negative for injury and deformity, Skin: Negative for injury, rash, and discoloration, Neuro: Negative for headache, weakness, numbness, tingling, and seizure, Psych: Negative for depression, anxiety, suicide ideation, homicidal ideation, and hallucinations, Allergy/Immunology: Negative for hives, rash, and allergies, Endocrine: Negative for neck swelling, polydipsia, polyuria, polyphagia, and marked weight changes, Hematologic/Lymphatic: Negative for swollen nodes, abnormal bleeding, and unusual bruising, 16:51 Neck: Positive for pain with movement, pain at rest, 16:51 Cardiovascular: Positive for chest pain, of the xiphoid area, 16:51 Abdomen/GI: Positive for nausea and vomiting, Exam: 16:51 Constitutional: This is a well developed, well nourished patient who is awake, alert, abby and in no acute distress. Head/Face: Normocephalic, atraumatic. Eyes: Pupils equal round and reactive to light, extra-ocular motions intact. Lids and lashes normal. Conjunctiva and sclera are non-icteric and not injected. Cornea within normal limits. Periorbital areas with no swelling, redness, or edema. ENT: Nares patent. No nasal discharge, no septal abnormalities noted. Tympanic membranes are normal and external auditory canals are clear. Oropharynx with no redness, swelling, or masses, exudates, or evidence of obstruction, uvula midline. Mucous membranes moist. Neck: Trachea midline, no thyromegaly or masses palpated, and no cervical lymphadenopathy. Supple, full range of motion without nuchal rigidity, or vertebral point tenderness. No Meningismus. Chest/axilla: Normal chest wall appearance and motion. Nontender with no deformity. No lesions are appreciated. Cardiovascular: Regular rate and rhythm with a normal S1 and S2. No gallops, murmurs, or rubs. Normal PMI, no JVD. No pulse deficits. Respiratory: Lungs have equal breath sounds bilaterally, clear to auscultation and percussion. No rales, rhonchi or wheezes noted. No increased work of breathing, no retractions or nasal flaring. Abdomen/GI: Soft, non-tender, with normal bowel sounds. No distension or tympany. No guarding or rebound. No evidence of tenderness throughout. Back: No spinal tenderness. No costovertebral tenderness. Full range of motion. Female : Normal external genitalia. Skin: Warm, dry with normal turgor. Normal color with no rashes, no lesions, and no evidence of cellulitis. MS/ Extremity: Pulses equal, no cyanosis. Neurovascular intact. Full, normal range of motion., bilateral aka Neuro: Awake and alert, GCS 15, oriented to person, place, time, and situation. Cranial nerves II-XII grossly intact. Motor strength 5/5 in all extremities. Sensory grossly intact. Cerebellar exam normal. Normal gait. Psych: Awake, alert, with orientation to person, place and time. Behavior, mood, and affect are within normal limits. 16:51 ECG was reviewed by the Attending Physician. Vital Signs: 13:27 BP 133 / 65; Pulse 64; Resp 16; Temp 98.4; Pulse Ox 100% ; Weight 66.22 kg; Height 5 me1 ft. 0 in. ; Pain 6/10; 15:57 BP 141 / 58; Pulse 65; Resp 17; Pulse Ox 97% ; ap3 16:10 BP 143 / 61; Pulse 66; Resp 16 S; Pulse Ox 100% on R/A; aa5 18:00 BP 143 / 70; Pulse 82; Resp 16 S; Temp 98.2(O); Pulse Ox 98% on R/A; aa5 19:15 BP 156 / 57; Pulse 63; Resp 16; Pulse Ox 98% ; af3 13:27 Body Mass Index 28.51 (66.22 kg, 152.4 cm) me1 13:27 Pain Scale: Adult me1 MDM: 13:19 Medical Screening Exam initiated [facility] 12/23 13:20 Order name: Basic Metabolic Panel; Complete Time: 14:56 [facility] 12/23 13:20 Order name: CBC with Diff; Complete Time: 14:56 [facility] 12/23 13:20 Order name: LFT's; Complete Time: 14:56 [facility] 12/23 13:20 Order name: Magnesium; Complete Time: 14:56 [facility] 12/23 13:20 Order name: NT PRO-BNP; Complete Time: 14:56 [facility] 12/23 13:20 Order name: PT-INR; Complete Time: 14:56 [facility] 12/23 13:20 Order name: Troponin HS; Complete Time: 14:56 [facility] 12/23 13:20 Order name: Lipase; Complete Time: 14:56 [facility] 12/23 13:20 Order name: UA Rfx Lauro Cult if indicated [facility] 12/23 16:51 Order name: Blood Culture Adult (2) [facility] 12/23 16:51 Order name: Lactate w/ 2H reflex if indic. [facility] 12/23 17:34 Order name: Basic Metabolic Panel EDMS 12/23 17:34 Order name: Basic Metabolic Panel EDMS 12/23 17:34 Order name: Basic Metabolic Panel EDMS 12/23 17:34 Order name: CBC with Automated Diff EDMS 12/23 17:34 Order name: CBC with Automated Diff EDMS 12/23 17:34 Order name: CBC with Automated Diff EDMS 12/23 17:34 Order name: Troponin High Sensitivity EDMS 12/23 17:34 Order name: Troponin High Sensitivity EDMS 12/23 17:34 Order name: Troponin High Sensitivity EDMS 12/23 17:38 Order name: Magnesium EDMS 12/23 17:38 Order name: Magnesium EDMS 12/23 13:20 Order name: XRAY Chest (1 view); Complete Time: 14:56 abby 12/23 14:57 Order name: US Carotid Artery Bilateral; Complete Time: 16:58 abby 12/23 14:57 Order name: CT Aorta for Dissection; Complete Time: 16:43 abby 12/23 13:20 Order name: Cardiac monitoring; Complete Time: 14:24 abby 12/23 13:20 Order name: EKG - Nurse/Tech; Complete Time: 14:18 abby 12/23 13:20 Order name: IV Saline Lock; Complete Time: 14:05 [facility] 12/23 13:20 Order name: Labs collected and sent; Complete Time: 14:05 [facility] 12/23 13:20 Order name: O2 Per Protocol; Complete Time: 14:18 [facility] 12/23 13:20 Order name: O2 Sat Monitoring; Complete Time: 14:18 [facility] EC:51 Rate is 64 beats/min. Rhythm is regular. QRS [place] is Normal. MD interval is normal. QRS abby interval is normal. QT interval is prolonged at 478 msec. No Q waves. T waves are Normal. No ST changes noted. Clinical impression: NSR w/ Non-specific ST/T Changes and No evidence of ischemia. Interpreted by me. Reviewed by me. Administered Medications: 14:24 Drug: NS 0.9% IV 500 ml 500 ml IV at 1 bolus once; to be given as a bolus over 30 aa5 minutes Volume: 500 ml; Route: IV; Rate: 1 bolus; Site: right antecubital; 14:24 Drug: fentaNYL (PF) IVP 50 mcg IVP once Route: IVP; Site: right antecubital; aa5 14:30 Follow up: Response: No adverse reaction aa5 14:24 Drug: Ondansetron IVP 4 mg IVP once; over 2 minutes Route: IVP; Site: right antecubital;aa5 14:30 Follow up: Response: No adverse reaction aa5 14:24 Drug: Famotidine IVP 20 mg IVP once; dilute with 10 mL 0.9% NaCl; give over 2 minutes aa5 Route: IVP; Site: right antecubital; 14:30 Follow up: Response: No adverse reaction aa5 15:22 Drug: Ondansetron IVP 4 mg IVP once; over 2 minutes Route: IVP; Site: right antecubital;aa5 15:30 Follow up: Response: No adverse reaction aa5 15:22 Drug: Promethazine IM 12.5 mg IM once; DO NOT GIVE IM. PLACE IN 100CC NS BAG, aa5 ADMINISTER IVPB. {Note: GIVEN IV PER MD.} Route: IM; Site: Other; 15:52 Follow up: Response: No adverse reaction; Marked relief of symptoms; Nausea is decreasedaa5 15:54 Drug: Magnesium Sulfate IVPB 2 grams IVPB once over 2 hrs Route: IVPB; Infused Over: 2 ap3 hrs; Site: right antecubital; 17:54 Follow up: IV Status: Completed infusion aa5 18:05 Drug: levofloxacin IVPB 500 mg 100 ml IVPB once over 60 mins Volume: 100 ml; Route: aa5 IVPB; Infused Over: 60 mins; Site: right antecubital; 20:01 Follow up: IV Status: Completed infusion cp4 Disposition Summary: 12/23/24 16:58 Hospitalization Ordered Notes: Hospitalization Status: Observation abby Provider: Pawan Diaz cha Location: Telemetry/MedSurg (observation) abby Condition: Stable abby Problem: new abby Symptoms: have improved abby Bed/Room Type: Standard abby Room Assignment: 231(12/23/24 18:15) aa5 Diagnosis - Chest pain, unspecified abby - Low back pain abby - Pneumonia, unspecified organism abby - Hypomagnesemia abby - Anemia, unspecified abby Forms: - Medication Reconciliation Form abby - SBAR form abby - Leadership Thank You Letter abby Signatures: Dispatcher [employer] EDMS Stefano Arnold MD MD cha Pinkerton, Shawna sp Calderon, Audri, RN RN aa5 Sahil Hedrick FNP-C [employer] IN[employer]ORY CONTROL CLERK-Marie1 Yany Casanova RN RN ap3 Emilia Stephens RN RN me1 Francine Dow cp4 Corrections: (The following items were deleted from the chart) 13:21 13:21 BASIC METABOLIC PANEL+C.LAB.BRZ ordered. EDMS EDMS 13:21 13:21 CBC+H.LAB.BRZ ordered. EDMS EDMS 13:21 13:21 HEPATIC FUNCTION+C.LAB.BRZ ordered. EDMS EDMS 13:21 13:21 MAGNESIUM+C.LAB.BRZ ordered. EDMS EDMS 13:21 13:21 PROBNP+C.LAB.BRZ ordered. EDMS EDMS 13:21 13:21 PROTIME (+INR)+COAG.LAB.BRZ ordered. EDMS EDMS 13:21 13:21 Troponin High Sensitivity+C.LAB.BRZ ordered. EDMS EDMS 13:21 13:21 LIPASE+C.LAB.BRZ ordered. EDMS EDMS 13:21 13:21 UA Rfx Lauro Cult if indicated+U.LAB.BRZ ordered. EDMS EDMS 13:21 13:21 Chest Single View+RAD.RAD.BRZ ordered. EDMS EDMS 17:39 16:58 abby sp 18:15 17:39 219 sp aa5
[2024-12-23] MEDS ORDERED: ONDANSETRON 4 MG/2 ML VIAL IV PRN (17:28)
[2024-12-23] MEDS ORDERED: ACETAMINOPHEN 325 MG TABLET PO PRN (17:28)
[2024-12-23] MEDS ORDERED: Levofloxacin500mg IV 500 MG/100 ML BAG IV ONE (17:34)
--- NOTE | 2024-12-23 17:36 | P.HP ---
Certification for Inpatient Patient admitted to: Observation With expected LOS: <2 Midnights Patient will require the following post-hospital care: None Practitioner: I am a practitioner with admitting privileges, knowledge of patient current condition, hospital course, and medical plan of care. Services: Services provided to patient in accordance with Admission requirements found in Title 42 Section 412.3 of the Code of Federal Regulations Patient History Date of Service: 12/23/24 Reason for admission: Pneumonia, neck pain History of Present Illness: 79-year-old female with history of CAD, CABG earlier this year, insulin- dependent diabetes, hypertension, hyperlipidemia presents the emergency department chief complaint of right sided neck pain. She reports has been having pretty severe right-sided neck pain for last 2 days, worse with palpation or movement. She does have point tenderness as well. While she was in the ER there was some question of her reporting chest pain. Patient denies chest pain for me. Her labs today were significant for hemoglobin 9.2 hematocrit 30.2 BNP of 1771, magnesium 1.2 CT dissection protocol was performed which showed patchy infiltrate in both posterior lung bases which may represent an mild pneumonia. Patient started on antibiotics, ED provider wishes to admit under observation for possible early pneumonia, ACS rule out and neck pain. Allergies alfuzosin Adverse Reaction (Verified 11/30/24 13:36) Chest pain, headache, dizzy, nausea Home Medications: Atorvastatin Calcium [Lipitor] 40 mg PO DAILY 06/07/23 Metformin HCl [Glucophage*] 500 mg PO BIDWM 06/07/23 Pantoprazole [Protonix Tab*] 40 mg PO DAILY 06/07/23 lisinopriL [Zestril] 20 mg PO DAILY 06/07/23 Ferrous Sulfate [Ferrous Sulfate*] 325 mg PO DAILY 08/14/23 Aspirin [Aspirin EC 81 MG] 81 mg PO DAILY #320 tab 08/15/23 Clopidogrel Bisulfate [Plavix*] 75 mg PO DAILY 90 Days #90 tab 10/18/23 Amiodarone HCl [Cordarone*] 200 mg PO DAILY 11/30/24 Carvedilol [Coreg] 1 tab PO BID 11/30/24 Ezetimibe [Zetia*] 10 mg PO DAILY 11/30/24 Furosemide 40 mg PO DAILY 11/30/24 Insulin Glargine,Hum.rec.anlog [Mervataglhola [place] U-100] 38 ml SQ DAILY 11/30/24 - Past Medical/Surgical History Diabetic: Yes -: HTN -: Type 2 diabetes -: Coronary artery disease -: Nephrolithiasis -: GERD -: Hyperlipidemia -: Kidney stone -: Thyroidectomy -: Stent in LAD (03/2014) -: Cholecystectomy -: Extraction of nephrolithiasis -: Watchman Psychosocial/ Personal History: Patient lives at home with her daughter. - Family History Father -: Heart disease, Hypertension, Diabetes, Stroke Mother -: Heart disease, Diabetes Sister -: Hypertension, Diabetes, Cancer Notes: breast cancer Brother -: Heart disease, Stroke - Social History Alcohol use: No CD- Drugs: No Caffeine use: Yes Review of Systems 10-point ROS is otherwise unremarkable Cardiovascular: Chest Pain Musculoskeletal: Neck Pain Physical Examination - Physical Exam General: Alert, In no apparent distress, Oriented x3 HEENT: Atraumatic, PERRLA, Mucous membr. moist/pink Neck: Supple, 2+ carotid pulse no bruit, No LAD Respiratory: Clear to auscultation bilaterally, Normal air movement Cardiovascular: Regular rate/rhythm, Normal S1 S2 Gastrointestinal: Normal bowel sounds, No tenderness Musculoskeletal: No tenderness Integumentary: No rashes Neurological: Normal gait, Normal speech, Normal strength at 5/5 x4 extr - Studies Laboratory Data (last 24 hrs) 12/23/24 12/23/24 12/23/24 13:57 13:57 13:57 WBC 4.90 Hgb 9.2 L Hct 30.3 L Plt Count 310 PT 12.8 INR 1.14 Sodium 137 Potassium 4.5 BUN 26 H Creatinine 1.12 H Glucose 108 H Magnesium 1.2 L Total Bilirubin 0.3 AST 11 L ALT 19 Alkaline Phosphatase 59 Lipase 35 Assessment and Plan - Plan Assessment: Chest pain rule out ACS Questionable early pneumonia Right neck pain likely musculoskeletal Hypomagnesemia Diabetes mellitus type 2insulin-dependent History of CAD with four-vessel CABG this year in June Hypertension Hyperlipidemia Plan: Chest pain rule out ACS History of CAD with four-vessel CABG this year in June Denies chest pain now Trend troponin and monitor on telemetry Consider cardiology consult if there is ongoing chest pain or positive troponins Questionable early pneumonia Continue empiric antibiotics Denies cough, fever, normal white blood cell count Reevaluate in the morning Right neck pain likely musculoskeletal Positive for point tenderness, pain with palpation/range of motion as needed [place] Hypomagnesemia Repleted in the ED, protocol in place Diabetes mellitus type 2insulin-dependent ACHS Accu-Chek, sign scale insulin Hypertension Hyperlipidemia Continue home medications when verified DVT PPX: Lovenox Code status: Full code Discharge Plan: Home Plan to discharge in: 24 Hours - Advance Directives Does patient have a Living Will: No Does patient have a Durable POA for Healthcare: No - Code Status/Comfort Care Code Status Assessed: Yes (Full code) Critical Care: No Time Spent Managing Pts Care (In Minutes): 70
[2024-12-23 20:10] VITALS: BMI 28.5
[2024-12-23] MEDS ORDERED: MORPHINE 2 MG/ML SYR IV PRN (20:58)
[2024-12-23] MEDS: INSULIN REGULAR (HUMAN) 100 UNIT/ML SQ SCH (21:00)
[2024-12-23] MEDS: ONDANSETRON 4 MG/2 ML VIAL IV PRN (21:35)
[2024-12-23] MEDS: HYDROCODONE/APAP 5/325 MG TAB PO PRN (21:35)
[2024-12-23] MEDS: ATORVASTATIN 80 MG TAB PO SCH (21:41)
[2024-12-24] MEDS ORDERED: HYDROMORPHONE HCL 0.5 MG/0.5 ML INJ IV PRN (01:06)
[2024-12-24 01:13] VITALS: O2SAT 98
[2024-12-24 03:27] LABS: Urine Microscopic Reflex YN NO UMIC
[2024-12-24 05:45] LABS: Absolute Lymphocytes (CBC) 0.9 K/uL (0.7-4.9); Hematocrit 25.9 % (36.0-45.0); Hemoglobin 8.3 g/dL (12.0-15.0); MCH 25.9 pg (27.0-35.0); MCHC 32.1 g/dL (32.0-36.0); MCV 80.8 fL (80-100); MPV 7.9 fL (7.6-11.3); Nucleated RBC Absolute Count 0.0 (0-0); Nucleated Red Blood Cells % 0.1 % (0-0); RBC Red Blood Cell Count 3.21 M/uL (3.86-4.86); White Blood Count 3.60 thou/uL (4.3-10.9)
[2024-12-24 06:03] LABS: Anion Gap 8.2 mEq/L (5.0-15.0); BUN Blood Urea Nitrogen 24.0 mg/dL (7-18); Glucose Level 84.0 mg/dL (74-106); Magnesium 1.8 mg/dL (1.6-2.4); Potassium 4.2 mEq/L (3.5-5.1); Troponin High Sensitivity 9.8 pg/mL (<58.9)
[2024-12-24 06:24] LABS: White Blood Cell Scan OK (OK)
[2024-12-24 06:25] LABS: Anisocytosis 1+; Blood Morphology Comment NOTED (NOT SEEN)
[2024-12-24] MEDS: FLU (Fluarix) 25-26 (6MOS UP)/PF 45 MCG/0.5 ML Syringe IM ONE (07:30)
[2024-12-24] MEDS: PNEUMOCOCCAL VACCINE 0.5 ML IMVAC ONE (08:00)
[2024-12-24] MEDS: ENOXAPARIN 40 MG/0.4 ML SQ SCH (08:19)
[2024-12-24] MEDS: CEFTRIAXONE 1,000 MG in NA CHLORIDE 0.9% 50 ML IVPB SCH (08:19)
[2024-12-24] MEDS: ASPIRIN EC 81 MG TAB PO SCH (08:19)
[2024-12-24] MEDS: EZETIMIBE 10 MG TAB PO SCH (08:19)
[2024-12-24] MEDS: CLOPIDOGREL 75 MG TABLET PO SCH (08:19)
[2024-12-24] MEDS: AMIODARONE HCL 200 MG TAB PO SCH (08:19)
[2024-12-24] MEDS: AZITHROMYCIN IV 500 MG in NA CHLORIDE 0.9% 250 ML IVPB SCH (08:20)
[2024-12-24 08:27] VITALS: BP 123/60; TEMP 97.8
--- NOTE | 2024-12-24 10:59 | P.DS ---
Admission Date: 12/23/24 Discharge Date: 12/24/24 Disposition: ROUTINE DISCHARGE Discharge Condition: GOOD Reason for Admission: Pneumonia, neck pain Brief History of Present Illness: 79-year-old female with history of CAD, CABG earlier this year, insulin- dependent diabetes, hypertension, hyperlipidemia presents the emergency department chief complaint of right sided neck pain. She reports has been having pretty severe right-sided neck pain for last 2 days, worse with palpation or movement. She does have point tenderness as well. While she was in the ER there was some question of her reporting chest pain. Patient denies chest pain for me. Her labs today were significant for hemoglobin 9.2 hematocrit 30.2 BNP of 1771, magnesium 1.2 CT dissection protocol was performed which showed patchy infiltrate in both posterior lung bases which may represent an mild pneumonia. Patient started on antibiotics, ED provider wishes to admit under observation for possible early pneumonia, ACS rule out and neck pain. Hospital Course: Assessment: Chest pain rule out ACS Questionable early pneumonia Right neck pain likely musculoskeletal Hypomagnesemia Diabetes mellitus type 2insulin-dependent History of CAD with four-vessel CABG this year in June Hypertension Hyperlipidemia Patient presents to the hospital for right-sided neck pain which was reproducible with palpation and range of motion. She was additionally found to have pneumonia on her CT scan. She was admitted under observation, had improvement with the pain in her neck and is breathing well on room air with normal white blood cell count and no fevers. She stable for discharge and outpatient follow-up with her primary care doctor. Continue home medications as previously prescribed Prescription for antibiotics for 7 days sent to her pharmacy in addition to prescription for [id number] medication Voltaren to help with neck pain to be used as needed. Vital Signs/Physical Exam: Temp Pulse Resp BP Pulse Ox 97.8 F 68 16 123/60 95 12/24/24 08:00 12/24/24 08:00 12/24/24 08:00 12/24/24 08:00 12/24/24 08:00 General: Alert, In no apparent distress, Oriented x3 HEENT: Atraumatic, PERRLA Neck: Supple, JVD not distended Respiratory: Clear to auscultation bilaterally, Normal air movement Cardiovascular: Regular rate/rhythm, Normal S1 S2 Gastrointestinal: Normal bowel sounds, No tenderness Musculoskeletal: No tenderness Integumentary: No rashes Neurological: Normal speech, Normal affect Laboratory Data at Discharge: WBC 3.60 thou/uL (4.3-10.9) L 12/24/24 05:26 Hgb 8.3 g/dL (12.0-15.0) L D 12/24/24 05:26 Hct 25.9 % (36.0-45.0) L 12/24/24 05:26 Plt Count 293 thou/uL (152-406) 12/24/24 05:26 PT 12.8 SECONDS (10-13.0) 12/23/24 13:57 INR 1.14 12/23/24 13:57 Sodium 137 mEq/L (136-145) 12/24/24 05:26 Potassium 4.2 mEq/L (3.5-5.1) 12/24/24 05:26 BUN 24 mg/dL (7-18) H 12/24/24 05:26 Creatinine 0.97 mg/dL (0.55-1.02) 12/24/24 05:26 Glucose 84 mg/dL (74-106) 12/24/24 05:26 Magnesium 1.8 mg/dL (1.6-2.4) 12/24/24 05:26 Total Bilirubin 0.3 mg/dL (0.2-1.0) 12/23/24 13:57 AST 11 U/L (15-37) L 12/23/24 13:57 ALT 19 U/L (13-56) 12/23/24 13:57 Alkaline Phosphatase 59 U/L (45-117) 12/23/24 13:57 Lipase 35 U/L (13-75) 12/23/24 13:57 Home Medications: Atorvastatin Calcium [Lipitor] 80 mg PO DAILY 06/07/23 Metformin HCl [Glucophage*] 500 mg PO BIDWM 06/07/23 Pantoprazole [Protonix Tab*] 40 mg PO DAILY 06/07/23 lisinopriL [Zestril] 20 mg PO DAILY 06/07/23 Ferrous Sulfate [Ferrous Sulfate*] 325 mg PO DAILY 08/14/23 Aspirin [Aspirin EC 81 MG] 81 mg PO DAILY #320 tab 08/15/23 Clopidogrel Bisulfate [Plavix*] 75 mg PO DAILY 90 Days #90 tab 10/18/23 Amiodarone HCl [Cordarone*] 200 mg PO DAILY 11/30/24 Carvedilol [Coreg] 1 tab PO BID 11/30/24 Ezetimibe [Zetia*] 10 mg PO DAILY 11/30/24 Furosemide 40 mg PO DAILY 11/30/24 Insulin Glargine,Hum.rec.anlog [Basaglar Kwikpen U-100] 38 ml SQ DAILY 11/30/24 Alprazolam [Xanax] 0.25 mg PO DAILY PRN 12/24/24 Amox/Clavulanate [Augmentin 875-125 Tab] 875 mg PO BID 7 Days #14 tab 12/24/24 Diclofenac Sodium [Voltaren Arthritis Pain] 1 appl TP BID PRN #1 tube 12/24/24 Doxycycline Hyclate 100 mg PO BID 7 Days #14 tab 12/24/24 Ipratropium [place] 42 mcg DOMINIQUE DAILY 12/24/24 Meclizine HCl 25 mg PO DAILY PRN 12/24/24 Ondansetron [Zofran (Odt)*] 4 mg PO Q4HR 12/24/24 New Medications: Amox/Clavulanate [Augmentin 875-125 Tab] 875 mg PO BID 7 Days #14 tab Doxycycline Hyclate 100 mg PO BID 7 Days #14 tab Diclofenac Sodium [Voltaren Arthritis Pain] 1 appl TP BID PRN #1 tube PRN Reason: Pain Scale 2-4 (Mild) Physician Discharge Instructions: Patient presents to the hospital for right-sided neck pain which was reproducible with palpation and range of motion. She was additionally found to have pneumonia on her CT scan. She was admitted under observation, had improvement with the pain in her neck and is breathing well on room air with normal white blood cell count and no fevers. She stable for discharge and outpatient follow-up with her primary care doctor. Continue home medications as previously prescribed Prescription for antibiotics for 7 days sent to her pharmacy in addition to prescription for [id number]-lin-zjaolsn medication Voltaren to help with neck pain to be used as needed. Diet: AHA Activity: Ad heather Followup: Kenan Velazquez DO [Primary Care Provider] - 1-2 Weeks Time spent managing pt's care (in minutes): 35
== END 2024-12-24 11:43 | disposition home or self-care (01) ==
LOC: ER 13:07 → 2ND 17:28
PROVIDERS: ADMIT Internal Medicine; ATTEND Internal Medicine
DX: R07.9 Chest pain, unspecified (principal); M54.2 Cervicalgia; I25.10 Atherosclerotic heart disease of native coronary artery without angina pectoris; E11.8 Type 2 diabetes mellitus with unspecified complications; I10 Essential (primary) hypertension; E78.5 Hyperlipidemia, unspecified; E83.42 Hypomagnesemia; I25.2 Old myocardial infarction; M54.50 Low back pain, unspecified; D64.9 Anemia, unspecified; Z95.1 Presence of aortocoronary bypass graft; Z79.4 Long term (current) use of insulin
CPT/HCPCS: 96365; 96367; 93005; 87040 ×2; 85025 ×2; 80048 ×2; 36415; 83735 ×2; 85610; 82947 ×2; 80076; 83605; 81003; 84484 ×3; 83690; 83880; 71275; 74175; 71045; 93880; 96375; 96372; 99285; 96366; Q9967; J2550; J0456; J3475; J3010; J2405 ×3; J7050; J7040; J0696; G0378 ×3; J1650